=== PATIENT | male | born 1960 | race Hispanic/Latino ===

== ENCOUNTER 2017-03-25 12:14 | Inpatient (IN) | payer OTHER ==
[2017-03-25 12:24] VITALS: BMI 31.9
--- NOTE | 2017-03-25 12:51 | ED PDOC ---
Arrival/HPI - General Chief Complaint: Altered Mental Status Time Seen by Provider: 03/25/17 12:29 Historian: Patient, Other (Friend) EM Caveat: Altered Mental Status - History of Present Illness Narrative History of Present Illness (Text): 03/25/17 12:30 A 56 year old male, whose past medical history includes diabetes, hyperglycemia hypertension, MS s/p triple vessel CABG, stents, acute renal failure, AMS, and CVA, is brought into the emergency department by EMS after friends called for patient's altered mental status. Per the pts friend he came over this morning and the pt was not acting normally. the pt reports only chest pain. HPI and ROS limited to AMS. Time/Duration: 24 hours Symptom Onset: Sudden Symptom Course: Unchanged Activities at Onset: Rest, Light Context: Home Past Medical History - Provider Review Nursing Documentation Reviewed: Yes - Infectious Disease Hx of Infectious Diseases: None - Tetanus Immunization Tetanus Immunization: Unknown - Cardiac Hx Cardiac Disorders: Yes (CABG x 3) Hx Hypertension: Yes - Pulmonary Hx Respiratory Disorders: Yes Other/Comment: PULMONARY EDEMA - Neurological Hx Neurological Disorder: No - HEENT Hx HEENT Disorder: Yes (CONTACT LENSES) - Renal Hx Renal Disorder: No - Endocrine/Metabolic Hx Diabetes Mellitus Type 1: Yes - Hematological/Oncological Hx Blood Disorders: No - Integumentary Hx Dermatological Disorder: Yes Other/Comment: millicent hernández ext rash, pt stated "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" - Musculoskeletal/Rheumatological Hx Musculoskeletal Disorders: No Hx Falls: No Other/Comment: generalized weakness - Gastrointestinal Hx Gastrointestinal Disorders: No - Genitourinary/Gynecological Hx Urinary Tract Infection: Yes Other/Comment: pt had martinez inserted for cabg in december, martinez was removed post op at pt has been having problems urinating ever since. Multiple attempts have been made to remove martinez cat, but when it is removed pt can't void - Psychiatric Hx Psychophysiologic Disorder: No Hx Depression: No Hx Emotional Abuse: No Hx Physical Abuse: No Hx Substance Use: Yes (MARIJUANA) - Surgical History Hx Amputation: Yes (R toes) Hx Cardiac Catheterization: Yes (09/09) Hx Coronary Stent: Yes Hx Open Heart Surgery: Yes (12-26-12) - Anesthesia Hx Anesthesia: Yes Hx Anesthesia Reactions: No - Suicidal Assessment Feels Threatened In Home Enviroment: No Family/Social History - Physician Review Nursing Documentation Reviewed: Yes Family/Social History: Unknown Family HX Smoking Status: Never Smoked Hx Alcohol Use: Yes (QUIT 4 YEARS AGO) Hx Substance Use: Yes (MARIJUANA) Hx Substance Use Treatment: No Allergies/Home Meds Allergies/Adverse Reactions: Allergies morphine Allergy (Verified 03/25/17 12:24) ANAPHYLAXIS sea food Allergy (Severe, Uncoded 03/25/17 12:24) ANAPHYLAXIS Home Medications: Home Meds Medication Instructions Recorded Confirmed Insulin Glargine, Recombina 30 unit SQ HS 04/05/16 03/25/17 [Lantus] Insulin Lispro [Humalog] 10 units SQ AC 04/05/16 03/25/17 Carvedilol [Coreg] 12.5 mg PO BID 03/25/17 03/25/17 Lisinopril [Zestril] 20 mg PO DAILY 03/25/17 03/25/17 Omeprazole 20 mg PO DAILY 03/25/17 03/25/17 Review of Systems - Review of Systems Systems not reviewed;Unavailable: Altered Mental Status Physical Exam - Physical Exam Physical Exam Limitations: Altered Mental Status Vital Signs Reviewed: Yes Vital Signs Temp Pulse Resp BP Pulse Ox 03/25/17 17:15 77 198/101 H 03/25/17 16:58 98 F 70 19 198/101 H 99 03/25/17 14:54 77 227/104 H 03/25/17 14:53 77 227/104 H 03/25/17 14:16 70 227/104 H 03/25/17 14:10 81 225/106 H 03/25/17 14:01 99.5 F 95 H 18 215/130 H 100 03/25/17 12:17 98.8 F 87 20 198/124 H 99 Pain Distress: None Mental Status: Positive for: other (Alert). No: Agitated, Lethargic Finger Stick Blood Glucose: 183 - Systems Exam Head: Present: Atraumatic, Normocephalic Pupils: Present: PERRL Extroacular Muscles: Present: EOMI Mouth: Present: Moist Mucous Membranes Neck: Present: Normal Range of Motion Respiratory/Chest: Present: Clear to Auscultation, Good Air Exchange. No: Respiratory Distress, Accessory Muscle Use Cardiovascular: Present: Regular Rate and Rhythm, Normal S1, S2. No: Murmurs Abdomen: Present: Normal Bowel Sounds. No: Tenderness, Distention, Peritoneal Signs Upper Extremity: Present: Normal Inspection. No: Cyanosis, Edema Lower Extremity: Present: Normal Inspection. No: Edema Neurological: Present: Speech Normal, Motor Func Grossly Intact, Normal Sensory Function. No: Other (No focal deficits. oriented to self only. ) Skin: Present: Warm, Dry, Normal Color. No: Rashes Psychiatric: Present: Alert. No: Oriented x 3, Normal Insight, Normal Concentration Medical Decision Making ED Course and Treatment: 03/25/17 12:30 Progress Notes: 03/25/17 12:35 EKG: Ordered, reviewed, and independently interpreted the EKG. Rate : 87 BPM Rhythm : NSR Interpretation : Lateral ST depression, mild ST elevation, Lead III appears similar to prior EKG on 05/31/16. 03/25/17 12:[address] Ceron cellphone. 03/25/17 12:[address] Ceron, no code heart. 03/25/17 14:[address] Merchant. 03/25/17 14:[address] Merchant and he states no code heart at this time. 03/25/17 15:20 EKG: REPEATED Ordered, reviewed, and independently interpreted the EKG. Rate : 66 BPM Rhythm : NSR Interpretation : ST elevation, Lead III looks slightly worse. Comparison : EKG appears similar to prior EKG. 03/25/17 15:[address] Merchant and recommends adding Heparin and Brilinta. No code heart. No STEMI at this time. 03/25/17 15:50 Case discussed with hospitalist to admit patient. 03/25/17 15:55 Spoke with ICU and he will evaluate patient to admit. the pt was given multiple doses of PO and IV antihypertensives, then started on IV nitro gtt per ICU. - Critical Care Critical Care Minutes: 90 minutes - Lab Interpretations Lab Results: 03/25/17 12:55 03/25/17 12:55 Lab Results 03/25/17 16:00: pCO2 23 L, pO2 98.0, HCO3 20.1 L, ABG pH 7.55 H, ABG Total CO2 20.8 L, ABG O2 Saturation 98.1 H, ABG O2 Content 15.2, ABG Base Excess -1.0, ABG Hemoglobin 11.1 L, ABG Carboxyhemoglobin 0.6, POC ABG HHb (Measured) 1.9, ABG Methemoglobin 0.9, ABG O2 Capacity 15.5 L, Hgb O2 Saturation 96.5, FiO2 21.0 03/25/17 13:35: Ammonia < 9 L 03/25/17 12:55: PT 11.4, INR 1.06, APTT 28.1 03/25/17 12:55: Alcohol, Quantitative < 10 03/25/17 12:55: Sodium 140, Chloride 101, Potassium 3.8, Carbon Dioxide 18 L, Anion Gap 25 H, BUN 62 H, Creatinine 7.7 H, Est GFR ( Amer) 9, Est GFR ( Non-Af Amer) 7, Random Glucose 334 H* D, Calcium 9.7, Total Bilirubin 1.5 H, AST 33, ALT 22, Alkaline Phosphatase 122, Total Creatine Kinase 1315 H, CK-MB ( CK-2) 3.9 H, CK-MB (CK-2) % Cancelled, Troponin I 0.13 H* D, Total Protein 8.2, Albumin 4.7, Globulin 3.5, Albumin/Globulin Ratio 1.3, Lipase 89 03/25/17 12:55: WBC 10.2 D, RBC 4.84, Hgb 12.8 L, Hct 37.7 L, MCV 77.9 L, MCH 26.4, MCHC 34.0, RDW 14.4, Plt Count 271, MPV 12.1 H, Gran % 81.6 H, Lymph % ( Auto) 12.0 L, Lipscomb % (Auto) 6.2 H, Eos % (Auto) 0.0 L, Baso % (Auto) 0.2, Gran # 8.34 H, Lymph # 1.2, Lipscomb # 0.6, Eos # 0.0, Baso # 0.02 03/25/17 12:35: pO2 102 H, VBG pH 7.61 H, VBG pCO2 19.0 L*, VBG HCO3 19.1 L, VBG Total CO2 19.7 L, VBG O2 Sat (Calc) 98.4 H, VBG Base Excess 0.0, VBG Potassium 3.8, Sodium 138.0, Chloride 104.0, Glucose 350 H, Lactate 3.6 H, FiO2 21.0, Venous Blood Potassium 3.8 03/25/17 12:28: POC Glucose (mg/dL) 294 H - RAD Interpretation Radiology Orders: 03/25/17 12:46 HEAD W/O CONTRAST [CT] Stat CHEST ONE VIEW [RAD] Stat - Medication Orders Current Medication Orders: Acetaminophen (Tylenol 325mg Tab) 650 mg PO Q6H PRN PRN Reason: Pain, moderate (4-7) Atorvastatin Calcium (Lipitor) 40 mg PO DAILY MARYANN Heparin Sodium/Dextrose (Heparin 25,000 Units/250ml In D5w) 25,000 units in 250 mls @ 11.104 mls/hr IV .[id number] MARYANN; 12 UNITS/KG/HR PRN Reason: Protocol Last Admin: 03/25/17 17:01 Dose: 12 units/kg/hr, 11.104 mls/hr Nitroglycerin/Dextrose (Nitroglycerin 50 Mg/250 Ml D5w) 50 mg in 250 mls @ 7.5 mls/hr IV .Q24H PRN; Protocol; 25 MCG/MIN PRN Reason: Titrate per protocol Last Admin: 03/25/17 17:15 Dose: 25 mcg/min, 7.5 mls/hr Sodium Chloride (Sodium Chloride 0.9%) 1,000 mls @ 100 mls/hr IV .Q10H MARYANN Last Admin: 03/25/17 17:27 Dose: 100 mls/hr Dexmedetomidine HCl (Precedex 4 Mcg/Ml (100 Ml)) 400 mcg in 100 mls @ 4.627 mls /hr IV .[id number] PRN; Protocol; 0.2 MCG/KG/HR PRN Reason: Agitation Last Admin: 03/25/17 20:06 Dose: 0.2 mcg/kg/hr, 4.627 mls/hr Insulin Human Lispro (Humalog Med) 0 units SC ACHS MARYANN PRN Reason: Protocol Metoprolol Tartrate (Lopressor) 5 mg IVP Q6H MARYANN Last Admin: 03/25/17 17:04 Dose: Pantoprazole Sodium (Protonix Inj) 40 mg IVP DAILY MARYANN Discontinued Medications Aspirin (Aspirin Chewable) 324 mg PO STAT STA Stop: 03/25/17 14:24 Last Admin: 03/25/17 14:54 Dose: 324 mg Heparin Sodium (Porcine) (Heparin) 6,500 units 70 units/kg (6500 units) IV ONCE ONE PRN Reason: Protocol Stop: 03/25/17 15:41 Last Admin: 03/25/17 16:45 Dose: 6,500 units Sodium Chloride (Sodium Chloride 0.9%) 1,000 mls @ 999 mls/hr IV .Q1H1M STA Stop: 03/25/17 14:26 Last Admin: 03/25/17 13:56 Dose: 999 mls/hr Sodium Chloride (Sodium Chloride 0.9%) 1,000 mls @ 999 mls/hr IV .Q1H1M STA Stop: 03/25/17 15:03 Last Admin: 03/25/17 14:54 Dose: 999 mls/hr Lisinopril (Zestril) 20 mg PO STAT STA Stop: 03/25/17 14:44 Last Admin: 03/25/17 14:53 Dose: 20 mg Metoprolol Tartrate (Lopressor) 10 mg IVP STAT STA Stop: 03/25/17 13:52 Last Admin: 03/25/17 14:10 Dose: 10 mg Metoprolol Tartrate (Lopressor) 10 mg IVP STAT STA Stop: 03/25/17 14:44 Last Admin: 03/25/17 14:54 Dose: 10 mg Midazolam HCl (Versed Inj) 1 mg IVP ONCE ONE Stop: 03/25/17 15:00 Last Admin: 03/25/17 15:11 Dose: 1 mg Nitroglycerin (Nitrostat Sl Tab) 0.4 mg SL STAT STA Stop: 03/25/17 16:27 Last Admin: 03/25/17 17:02 Dose: 0.4 mg Ondansetron HCl (Zofran Inj) 4 mg IVP ONCE ONE Stop: 03/25/17 13:27 Last Admin: 03/25/17 14:05 Dose: 4 mg Ticagrelor (Brilinta) 180 mg PO STAT STA Stop: 03/25/17 15:42 Last Admin: 03/25/17 15:58 Dose: 180 mg Ticagrelor (Brilinta) Confirm Administered Dose 180 mg .ROUTE .STK-MED ONE Stop: 03/25/17 15:59 Last Admin: 03/25/17 16:47 Dose: - Scribe Statement The provider has reviewed the documentation as recorded by the Tamara Mann Provider Scribe Attestation: All medical record entries made by the Tamara were at my direction and personally dictated by me. I have reviewed the chart and agree that the record accurately reflects my personal performance of the history, physical exam, medical decision making, and the department course for this patient. I have also personally directed, reviewed, and agree with the discharge instructions and disposition. Disposition/Present on Arrival - Present on Arrival Any Indicators Present on Arrival: No History of DVT/PE: No History of Uncontrolled Diabetes: No Urinary Catheter: No History of Decub. Ulcer: No History Surgical Site Infection Following: None - Disposition Have Diagnosis and Disposition been Completed?: Yes Diagnosis: Hypertensive emergency Disposition: HOSPITALIZED Disposition Time: 16:08 Condition: SERIOUS
[2017-03-25 12:56] LABS: VENOUS BLOOD GAS PO2 102 mm/Hg (30-55); VENOUS BLOOD PH 7.61 (7.32-7.43)
[2017-03-25 13:10] LABS: BASO # 0.02 K/mm3 (0.0-2.0); BASO % 0.2 % (0.0-3.0); GRAN # 8.34 (1.4-6.5); GRAN % 81.6 % (50.0-68.0); HEMOGLOBIN 12.8 gm/dL (14.0-18.0); LYMPH # 1.2 (1.2-3.4); MEAN CELL VOLUME 77.9 fL (80.0-105.0); MEAN CORPUSCULAR HEMOGLOBIN 26.4 pg (25.0-35.0); MEAN PLATELET VOLUME 12.1 fl (7.0-11.0); MONO # 0.6 (0.1-0.6); MONO % 6.2 % (1.0-6.0); PLATELET COUNT 271 10^3/uL (120.0-450.0); RBC 4.84 10^6/uL (3.5-6.1); RED CELL DISTRIBUTION WIDTH 14.4 % (11.5-14.5); WHITE BLOOD COUNT 10.2 10^3/ul (4.5-11.0)
[2017-03-25 13:24] LABS: ALB/GLOB RATIO 1.3 (1.1-1.8); ALBUMIN 4.7 g/dL (3.0-4.8); CALCIUM 9.7 mg/dL (8.4-10.5)
[2017-03-25 13:39] LABS: CK-MB 3.9 ng/mL (0.0-3.6)
[2017-03-25 13:40] LABS: TROPONIN I 0.13 ng/mL
[2017-03-25] MEDS ORDERED: Metoprolol 1 mg/ml Inj IVP STA ×3 (13:51→16:16)
[2017-03-25] MEDS: Sodium Chloride 0.9% 1,000 ML IV STA (13:56)
[2017-03-25] MEDS ORDERED: Sodium Chloride 0.9% 1,000 ML IV STA (14:03)
[2017-03-25] MEDS ORDERED: Midazolam 5 MG/5 ML VIAL IVP ONE (14:59)
--- NOTE | 2017-03-25 15:15 | CARD ---
APPROVED REPORT EKG Measurement Heart [id number] <Conclusion> Normal sinus rhythm Inferior infarct, age undetermined ST & T wave abnormality, consider lateral ischemia Abnormal ECG
--- NOTE | 2017-03-25 15:17 | CARD ---
APPROVED REPORT EKG Measurement Heart [id number] <Conclusion> Normal sinus rhythm Inferior infarct, age underterminate lateral ischemia Abnormal ECG
[2017-03-25] MEDS ORDERED: Heparin 25,000units in D5W 25,000 UNITS/250 ML BAG IV SCH (15:45)
--- NOTE | 2017-03-25 15:56 | CT ---
PROCEDURE: CT HEAD WITHOUT CONTRAST. HISTORY: ams COMPARISON: Head CT 05/31/2016 TECHNIQUE: Axial computed tomography images were obtained through the head/brain without intravenous contrast. Radiation dose: Total exam DLP = 791 mGy-cm. This CT exam was performed using one or more of the following dose reduction techniques: Automated exposure control, adjustment of the mA and/or kV according to patient size, and/or use of iterative reconstruction technique. FINDINGS: HEMORRHAGE: No intracranial hemorrhage. BRAIN: No mass effect or cortical edema. Mild diffuse atrophy and chronic microvascular ischemic changes appear stable. Bilateral chronic basal ganglia lacune or infarcts are again identified. VENTRICLES: Unremarkable. No hydrocephalus. CALVARIUM: Unremarkable. PARANASAL SINUSES: Unremarkable as visualized. No significant inflammatory changes. MASTOID AIR CELLS: Mild right mastoiditis is appreciated. OTHER FINDINGS: None. IMPRESSION: No definite acute intracranial findings. Bilateral chronic lacune infarctions in the basal ganglia once again. Age related neuro degenerate changes are reiterated. Follow-up CT or MRI can be performed if clinically warranted. Incidental right mastoiditis.
[2017-03-25 16:13] LABS: PARTIAL THROMBOPLASTIN TIME 28.1 Seconds (23.7-30.8)
[2017-03-25 16:14] LABS: ARTERIAL BLOOD GAS HCO3 20.1 mmol/L (21-28); ARTERIAL BLOOD GAS HEMOGLOBIN 11.1 g/dL (11.7-17.4); ARTERIAL BLOOD GAS O2 CAPACITY 15.5 mL/dl (16-24); ARTERIAL BLOOD GAS O2 CONTENT 15.2 ML/dl (15-23); ARTERIAL BLOOD GAS O2 SAT 98.1 % (95-98); ARTERIAL BLOOD GAS PCO2 23 mm/Hg (35-45); ARTERIAL BLOOD GAS PH 7.55 (7.35-7.45); ARTERIAL BLOOD GAS TCO2 20.8 mmol.L (22-28)
[2017-03-25 16:58] LABS: PH,URINE 8.5 (4.7-8.0); URINE BILIRUBIN NEGATIVE (NEGATIVE); URINE BLOOD MODERATE (NEGATIVE); URINE GLUCOSE (UA) >=1000 mg/dL (NEGATIVE); URINE LEUKOCYTE ESTERASE NEGATIVE Leu/uL (NEGATIVE); URINE NITRATE NEGATIVE (NEGATIVE); URINE PROTEIN >=300 mg/dL (<30 mg/dL); URINE UROBILINOGEN 0.2 E.U./dL (<1 E.U./dL)
[2017-03-25 17:01] LABS: URINE APPEARANCE SL CLOUDY (CLEAR); URINE COLOR YELLOW (YELLOW)
[2017-03-25] MEDS: Metoprolol 1 mg/ml Inj IVP SCH ×2 (17:04→22:23)
[2017-03-25 17:09] LABS: URINE BACTERIA FEW (NEG)
[2017-03-25 17:15] LABS: BARBITURATES, UR NEGATIVE (NEGATIVE); BENZODIAZEPINES, UR NEGATIVE (NEGATIVE); OPIATES, UR NEGATIVE (NEGATIVE); PHENCYCLIDINE, UR NEGATIVE (NEGATIVE)
[2017-03-25] MEDS: Nitroglycerin 50mg in D5W 50 MG/250 ML BOTTLE IV PRN ×2 (17:15→22:21)
[2017-03-25] MEDS: Sodium Chloride 0.9% 1,000 ML IV SCH (17:27)
--- NOTE | 2017-03-25 17:30 | RAD ---
PROCEDURE: CHEST RADIOGRAPH, 1 VIEW HISTORY: ams COMPARISON: Prior portable chest radiograph 05/31/2016. FINDINGS: LUNGS: No acute infiltrate or pulmonary sprain is identified. Sternotomy wires are again seen. PLEURA: No pneumothorax or pleural fluid seen. CARDIOVASCULAR: Cardiomegaly appears stable. OSSEOUS STRUCTURES: No significant abnormalities. VISUALIZED UPPER ABDOMEN: Normal. OTHER FINDINGS: None. IMPRESSION: No acute cardiopulmonary disease. Stable cardiomegaly noted.
--- NOTE | 2017-03-25 17:53 | CP.PCM.HP ---
<Arnav Nation - Last Filed: 03/25/17 18:40> History of Present Illness - History of Present Illness History of Present Illness: 56 y/o M with PMH of CAD, HTN, UT x 3, DM, peripheral neuropathy, CVA, history of falls and AMS presents to the ED for altered mental status. Patient was brought in by his friend who states he went to visit him and he was acting funny. In the ED, patient was able to answer a few questions. Pt states he has not been feeling for 3 days at this time. Pt has been admitted to hospital many times in the past for AMS.ROS not able to be obtained at this time due to AMS. Medical history retrieved from prior medical charts. PMH: CAD, HTN, UT x 3, DM, peripheral neuropathy, history of falls, history of CVA, AMS PSH: Stents x 3, CABG, left hip surgery, Left knee surgery, Right foot partial amputation All: seafood SH: Denies recent tobacco, etoh, illicit drug use. Medication: Reviewed from prior chart Present on Admission - Present on Admission Any Indicators Present on Admission: Yes History of Uncontrolled Diabetes: Yes Review of Systems - Review of Systems Systems not reviewed;Unavailable: Altered Mental Status Past Patient History - Infectious Disease Hx of Infectious Diseases: None - Tetanus Immunizations Tetanus Immunization: Unknown - Past Medical History & Family History Past Medical History?: Yes - Past Social History Smoking Status: Never Smoked - CARDIAC Hx Cardiac Disorders: Yes (CABG x 3) Hx Hypertension: Yes - PULMONARY Hx Respiratory Disorders: Yes Other/Comment: PULMONARY EDEMA - NEUROLOGICAL Hx Neurological Disorder: No - HEENT Hx HEENT Problems: Yes (CONTACT LENSES) - RENAL Hx Chronic Kidney Disease: No - ENDOCRINE/METABOLIC Hx Diabetes Mellitus Type 1: Yes - HEMATOLOGICAL/ONCOLOGICAL Hx Blood Disorders: No - INTEGUMENTARY Hx Dermatological Problems: Yes Other/Comment: millicent hernández ext rash, pt stated "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" - MUSCULOSKELETAL/RHEUMATOLOGICAL Hx Musculoskeletal Disorders: No Hx Falls: No Other/Comment: generalized weakness - GASTROINTESTINAL Hx Gastrointestinal Disorders: No - GENITOURINARY/GYNECOLOGICAL Hx Urinary Tract Infection: Yes Other/Comment: pt had martinez inserted for cabg in december, martinez was removed post op at pt has been having problems urinating ever since. Multiple attempts have been made to remove martinez cath, but when it is removed pt can't void - PSYCHIATRIC Hx Psychophysiologic Disorder: No Hx Depression: No Hx Emotional Abuse: No Hx Physical Abuse: No Hx Substance Use: Yes (MARIJUANA) - SURGICAL HISTORY Hx Amputation: Yes (R toes) Hx Cardiac Catheterization: Yes (09/09) Hx Coronary Stent: Yes Hx Open Heart Surgery: Yes (12-26-12) - ANESTHESIA Hx Anesthesia: Yes Hx Anesthesia Reactions: No Meds Allergies/Adverse Reactions: Allergies Allergy/AdvReac Type Severity Reaction Status Date / Time morphine Allergy ANAPHYLAXIS Verified 03/25/17 12:24 sea food Allergy Severe ANAPHYLAXIS Uncoded 03/25/17 12:24 Physical Exam - Constitutional Appears: Toxic, No Acute Distress - Head Exam Head Exam: ATRAUMATIC, NORMAL INSPECTION, NORMOCEPHALIC - Eye Exam Eye Exam: Normal appearance - ENT Exam ENT Exam: Mucous Membranes Moist - Neck Exam Neck exam: Positive for: Normal Inspection. Negative for: Lymphadenopathy - Respiratory Exam Respiratory Exam: Clear to Auscultation Bilateral, NORMAL BREATHING PATTERN. absent: Rhonchi - Cardiovascular Exam Cardiovascular Exam: RRR, +S1, +S2 - GI/Abdominal Exam GI & Abdominal Exam: Normal Bowel Sounds, Soft, Tenderness (Diffuse) - Extremities Exam Extremities exam: Negative for: calf tenderness, normal inspection, pedal edema Additional comments: Lower partial right foot amputation - Neurological Exam Neurological exam: Alert - Skin Skin Exam: Intact, Normal Color, Warm Results - Vital Signs Recent Vital Signs: Last Vital Signs Temp 98 F 03/25/17 16:58 Pulse 77 03/25/17 17:15 Resp 19 03/25/17 16:58 BP 198/101 H 03/25/17 17:15 Pulse Ox 99 03/25/17 16:58 - Labs Result Diagrams: 03/25/17 12:55 03/25/17 12:55 Labs: Laboratory Results - last 24 hr 03/25/17 03/25/17 16:45 16:45 Urine Color Yellow Urine Appearance Sl cloudy Urine pH 8.5 Ur Specific [place] 1.020 Urine Protein >=300 H Urine Glucose (UA) >=1000 Urine Ketones Negative Urine Blood Moderate H Urine Nitrate Negative Urine Bilirubin Negative Urine Urobilinogen 0.2 Ur Leukocyte Esterase Negative Urine RBC 5 - 10 Urine WBC 2 - 5 Ur Epithelial Cells 1 - 3 Urine Bacteria Few Urine Opiates Screen Negative Urine Methadone Screen Negative Ur Barbiturates Screen Negative Ur Phencyclidine Scrn Negative Ur Amphetamines Screen Negative U Benzodiazepines Scrn Negative U Oth Cocaine Metabols Negative U Cannabinoids Screen Positive H Assessment & Plan - Assessment and Plan (Free Text) Plan: 56 y/o M with PMH of CAD, HTN, UT x 3, DM, peripheral neuropathy, CVA, history of falls and AMS presents with NSTEMI and acute renal failure in the setting of hypertensive emergency and encephalopathy. Head CT showed no acute findings, but b/l chronic lacunar infactions in the basal ganglia. Pt will be placed on a nitro and heparin drip. Abd/pelvis CT ordered for abdominal pain. Pt will be admitted to the ICU for closer monitoring. 1. Hypertensive Emergency/Encephalopathy Nitro drip Metoprolol 5 mg IVP q6h Will hold home BP meds Atorvastatin 40 mg daily Neuro checks q4h 2. NSTEMI Heparin drip Brillinta given in ED Echocardiogram ordered Trend troponins Previous Echo from 03/2016 showed asymmetric septal hypertrophy with EF of 50% EKG - NSR with minor ST changes. No STEMI as per [employer] Cardio consult, Dr. Matthews 3. Acute renal failure IVF Nephrology consult, Dr. Kwan 4. DM ISS HgA1c 5. PPX Protonix Heparin drip Seen, reviewed, and discussed with attending [facility] PGY-2 <Kerri Whitley - Last Filed: 03/25/17 19:00> Results - Vital Signs Recent Vital Signs: Last Vital Signs Temp 98.8 F 03/25/17 18:20 Pulse 79 03/25/17 18:33 Resp 78 H 03/25/17 18:30 BP 170/98 H 03/25/17 18:38 Pulse Ox 97 03/25/17 18:33 - Labs Result Diagrams: 03/25/17 12:55 03/25/17 12:55 Labs: Laboratory Results - last 24 hr 03/25/17 03/25/17 16:45 16:45 Urine Color Yellow Urine Appearance Sl cloudy Urine pH 8.5 Ur Specific [place] 1.020 Urine Protein >=300 H Urine Glucose (UA) >=1000 Urine Ketones Negative Urine Blood Moderate H Urine Nitrate Negative Urine Bilirubin Negative Urine Urobilinogen 0.2 Ur Leukocyte Esterase Negative Urine RBC 5 - 10 Urine WBC 2 - 5 Ur Epithelial Cells 1 - 3 Urine Bacteria Few Urine Opiates Screen Negative Urine Methadone Screen Negative Ur Barbiturates Screen Negative Ur Phencyclidine Scrn Negative Ur Amphetamines Screen Negative U Benzodiazepines Scrn Negative U Oth Cocaine Metabols Negative U Cannabinoids Screen Positive H Attending/Attestation - Attestation I have personally seen and examined this patient.: Yes I have fully participated in the care of the patient.: Yes I have reviewed all pertinent clinical information: Yes Notes (Text): 03/25/17 18:57 Pt has Amputation of the distal part of the R foot and old surgical scars on the L foot
[2017-03-25 19:20] LABS: INR 1.06 (0.93-1.08); PROTHROMBIN TIME 11.4 Seconds (9.9-11.8)
--- NOTE | 2017-03-25 19:23 | CT ---
EXAM: CT Abdomen and Pelvis Without Intravenous Contrast CLINICAL HISTORY: 56 years old, male; Pain; Abdominal pain; Acute TECHNIQUE: Axial computed tomography images of the abdomen and pelvis without intravenous contrast. This CT exam was performed using one or more of the following dose reduction techniques: automated exposure control, adjustment of the mA and/or kV according to patient size, and/or use of iterative reconstruction technique. Coronal and sagittal reformatted images were created and reviewed. EXAM DATE/TIME: 03/25/2017 4:56 PM COMPARISON: CT - ABD PELVIS W/O PO OR IV CONT 04/05/2016 8:00:04 AM FINDINGS: Artifacts: Motion artifact degrades image quality.Streak artifact degrades image quality. Lower thorax: The heart is enlarged. There are coronary artery calcifications. There is a hiatal hernia. Lung bases are hyperinflated. There is minimal scarring at the lung bases. ABDOMEN: Liver: unremarkable Gallbladder and bile ducts: Gallbladder is surgically absent. Common bile duct is prominent. Pancreas: Pancreas is atrophic. Spleen: unremarkable Adrenals: unremarkable Kidneys and ureters: unremarkable Stomach and bowel: Stomach is partially distended. Rotation is normal. Streak and motion limited evaluation of the bowel. There are mildly distended small bowel loops in the left upper quadrant. There is mild fold and wall prominence. Distention decreases distally. There is no obstruction. Appendix and terminal ileum are unremarkable. Colon is incompletely distended which limits evaluation. There is diverticulosis. Appendix: See stomach and bowel PELVIS: Bladder: Bladder is almost completely empty. There is a Macias catheter. There is minimal air in the bladder. There is mild bladder wall thickening. Reproductive: Seminal vesicles and prostate are unremarkable. ABDOMEN and PELVIS: Intraperitoneal space: There is no significant fluid.There is no free air. Bones/joints: There are postsurgical changes of median sternotomy. There are degenerative changes in the osseus structures. Small sclerotic focus in L3 is unchanged. Soft tissues: unremarkable Vasculature: There are calcifications in the aorta and iliacs. There is calcification in peripheral arteries. Lymph nodes: There is no pathologic adenopathy. IMPRESSION: Interval cholecystectomy with prominent common duct; no acute solid visceral abnormality; focal ileus and possible enteritis, no obstruction; no CT findings of appendicitis or diverticulitis Additional findings as described above.
[2017-03-25] MEDS ORDERED: Dexmedetomidine HCl 4mcg/ml 400 MCG/100 ML BOTTLE IV PRN (19:28)
[2017-03-25 21:39] LABS: VENOUS BLOOD GAS PO2 34 mm/Hg (30-55)
[2017-03-25] MEDS ORDERED: Pneumococcal 23-Valent Vaccine IM ONE (21:55)
[2017-03-25] MEDS: Insulin Lispro (humaLOG) MEDIUM Coverage SC SCH (22:23)
[2017-03-26] MEDS: Sodium Chloride 0.9% 1,000 ML IV SCH (01:15)
[2017-03-26] MEDS: Metoprolol 1 mg/ml Inj IVP SCH ×3 (04:57→17:04)
--- NOTE | 2017-03-26 05:08 | CON ---
DATE: 03/25/2017 HISTORY OF PRESENT ILLNESS: The patient is a 56-year-old gentleman with history of coronary artery disease, diabetes, chronic kidney disease, status post few toes amputation on the right foot, who presented with nausea and vomiting for several days.He also has been found disoriented, confused for several days by hisfriend, who brought him in [facility] for eval. He cannot pinpoint any specific complaint; however, according to friend, the patient is nauseated, vomited several times, and he was complaining of some low abdominal pain. The patient denies shortness of breath or chest pain and loss of consciousness. No fever or chills or sweats. No constipation or diarrhea. 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 ALLERGIES: THE PATIENT IS ALLERGIC TO MORPHINE AND SEAFOOD. SOCIAL HISTORY: The patient is smoking pot, but not tobacco. He is a recovering alcoholic and according to close friends did not drink alcohol over the last 5 to 6 years. No other illicit drug abuse other than marijuana and no tobacco smoking. FAMILY HISTORY: Noncontributory. REVIEW OF SYSTEMS: Review of 12-point review of system other than mentioned in history of present illness is negative. PHYSICAL EXAMINATION VITAL SIGNS: Blood pressure 227/104, heart rate 77, temperature 99.5. The patient is oxygenating 100% on room air. HEENT: Head and neck atraumatic. LUNGS: Clear to auscultation bilaterally. HEART: Regular rate and rhythm. S1, S2 normal. ABDOMEN: Soft, nontender, nondistended. MUSCULOSKELETAL: Trace bilateral pedal and ankle edema, several toes amputated on a right side. NEUROLOGIC: The patient moves all extremities spontaneously. SKIN: Moist. PSYCHIATRIC: The patient is confused and disoriented. LABORATORY DATA: WBC is 10.2, hemoglobin 12.8, platelet count 271. PTT 28.1. Chemistry; sodium 145, potassium 3.8, chloride 101, carbon dioxide 18, BUN 62, creatinine 7.7, glucose 334, calcium 9.7, AST 33, ALT 22, CPK 1315, ammonia level less than 9, troponin 0.13. Albumin 4.7. EKG showed ST depression in I and aVL leads as well as V5 and V6. Those changes are new. Head CT did not show any acute intracranial pathology. Chest x-ray, no acute pulmonary disease. HOME MEDICATIONS: Include, insulin lispro and Lantus, Plavix, Coreg, Zestril, aspirin, Lipitor, omeprazole. ASSESSMENT AND PLAN: This is a 56-year-old gentleman, who presented with hypertensive emergency, most likely secondary to non-adherence to his meds, complicated by acute kidney injury on top of chronic kidney disease and acute myocardial ischemia. At the present time, I would proceed with nitroglycerin drip, metoprolol 5 mg IV q.6. We will drop down MAP by 20% within first hour and then 10-15% of MAP within the next 23 hours. We will still continue with IV fluids, as the patient has rhabdomyolysis and to correct for auto diuresis in the setting of uncontrolled hypertension. We will call nephrology consult and cardiology consult. We will continue with dual antiplatelet therapy settings, beta blockers and therapeutic anticoagulation. Cardiology consult was called. We will proceed with CAT scan of the abdomen and pelvis to rule out intraabdominal sources of patient's clinical deterioration. Unfortunately, I cannot use IV dye and we will see if we would be able to rule out abdominal aneurysm or its complications with "dry" CT. We will continue with DVT and GI prophylaxis. Macias catheter will be placed and monitored and urine output will be monitored with low of more than 0.5 mL/kg per hour. ccm time 40 min Fernando Weiss MD MTDGhazal
[2017-03-26 06:20] LABS: BASO # 0.03 K/mm3 (0.0-2.0); BASO % 0.4 % (0.0-3.0); EOS # 0.1 (0.0-0.7); EOS % 1.2 % (1.5-5.0); GRAN # 4.68 (1.4-6.5); GRAN % 69.4 % (50.0-68.0); HEMOGLOBIN 9.4 gm/dL (14.0-18.0); LYMPH # 1.4 (1.2-3.4); LYMPH % 21.4 % (22.0-35.0); MEAN CELL VOLUME 80.9 fL (80.0-105.0); MEAN CORPUSCULAR HEMOGLOBIN 25.6 pg (25.0-35.0); MEAN CORPUSCULAR HGB CONC 31.6 g/dl (31.0-37.0); MEAN PLATELET VOLUME 12.5 fl (7.0-11.0); MONO # 0.5 (0.1-0.6); MONO % 7.6 % (1.0-6.0); PLATELET COUNT 180 10^3/uL (120.0-450.0); RBC 3.67 10^6/uL (3.5-6.1); RED CELL DISTRIBUTION WIDTH 14.6 % (11.5-14.5); WHITE BLOOD COUNT 6.7 10^3/ul (4.5-11.0)
[2017-03-26 06:28] LABS: CALCIUM 7.8 mg/dL (8.4-10.5)
[2017-03-26 06:55] LABS: TROPONIN I 0.11 ng/mL
[2017-03-26] MEDS: Insulin Lispro (humaLOG) MEDIUM Coverage SC SCH ×4 (08:15→22:30)
--- NOTE | 2017-03-26 09:36 | CP.PCM.PN ---
<Mandy Giordano - Last Filed: 03/26/17 12:29> Subjective - Date & Time of Evaluation Date of Evaluation: 03/26/17 Time of Evaluation: 09:34 - Subjective Subjective: PGY-2 ICU Progress note. Patient seen and examined in the ICU . No acute distress. He states he does feel while but denies any chest pain, abd pain. He reports mild sob and nausea with 1 episode of nonbloody vomiting. Patient was started on precedex drip for agitation overnight. Objective - Vital Signs/Intake and Output Vital Signs (last 24 hours): Temp Pulse Resp BP Pulse Ox 98.8 F 69 10 L 159/80 H 97 03/25/17 21:41 03/26/17 09:14 03/26/17 09:00 03/26/17 09:14 03/26/17 09:00 Intake and Output: 03/26/17 03/26/17 06:59 18:59 Intake Total 1686 9 Output Total 500 Balance 1186 9 - Medications Medications: Current Medications Acetaminophen (Tylenol 325mg Tab) 650 mg PO Q6H PRN PRN Reason: Pain, moderate (4-7) Atorvastatin Calcium (Lipitor) 40 mg PO DAILY [facility] Last Admin: 03/26/17 09:15 Dose: 40 mg Clonidine HCl (Catapres) 0.2 mg PO BID [facility] Last Admin: 03/26/17 09:14 Dose: 0.2 mg Clopidogrel Bisulfate (Plavix) 75 mg PO DAILY [facility] Last Admin: 03/26/17 09:15 Dose: 75 mg Heparin Sodium (Porcine) (Heparin) 5,000 units SC Q12 [facility] PRN Reason: Protocol Last Admin: 03/26/17 09:13 Dose: 5,000 units Nitroglycerin/Dextrose (Nitroglycerin 50 Mg/250 Ml D5w) 50 mg in 250 mls @ 7.5 mls/hr IV .Q24H PRN; Protocol; 25 MCG/MIN PRN Reason: Titrate per protocol Last Titration: 03/26/17 07:45 Dose: 30 mcg/min, 9 mls/hr Insulin Human Lispro (Humalog Med) 0 units SC ACHS [facility] PRN Reason: Protocol Last Admin: 03/26/17 08:15 Dose: 3 units Metoprolol Tartrate (Lopressor) 5 mg IVP Q6H [facility] Last Admin: 03/26/17 04:57 Dose: Not Given Ondansetron HCl (Zofran Inj) 4 mg IVP Q4H PRN PRN Reason: Nausea/Vomiting Last Admin: 03/25/17 23:48 Dose: 4 mg Pantoprazole Sodium (Protonix Inj) 40 mg IVP DAILY [facility] Last Admin: 03/26/17 09:13 Dose: 40 mg - Labs Labs: 03/26/17 05:00 03/26/17 05:00 PT 11.4 Seconds (9.9-11.8) 03/25/17 12:55 INR 1.06 (0.93-1.08) 03/25/17 12:55 APTT 80.5 Seconds (23.7-30.8) H* 03/26/17 05:00 - Constitutional Appears: Well, No Acute Distress - Head Exam Head Exam: ATRAUMATIC, NORMOCEPHALIC - Eye Exam Eye Exam: EOMI, Normal appearance - ENT Exam ENT Exam: Mucous Membranes Moist - Respiratory Exam Respiratory Exam: Clear to Ausculation Bilateral, NORMAL BREATHING PATTERN. absent: Decreased Breath Sounds, Rales, Rhonchi, Wheezes, Respiratory Distress - Cardiovascular Exam Cardiovascular Exam: REGULAR RHYTHM, +S1, +S2. absent: Tachycardia, Murmur - GI/Abdominal Exam GI & Abdominal Exam: Soft, Normal Bowel Sounds. absent: Distended, Firm, Tenderness - Extremities Exam Extremities Exam: Normal Inspection. absent: Pedal Edema Additional comments: right foot amputation of all toes - Neurological Exam Neurological Exam: Alert, Awake, Oriented x3 - Skin Skin Exam: Dry, Intact, Normal Color, Warm Assessment and Plan - Assessment and Plan (Free Text) Assessment: 56 yo male with PMH of DM, CAD, HTN, NC x 3, neuropathy, s/p right foot amputation of all toes, HTN, CKD presents with HTN emergency with KITA on CKD, AMS and elevated trops. Plan: Neuro - stable - alert and oriented - pt was on precedec overnight for agitation, will stop - Head CT showed no acute findings, but b/l chronic lacunar infarctions in the basal ganglia cardiovascular - HTN emergency most likely 2/2 non compliance - BP improved however continues to be elevated - cont nitro drip, lopressor 5 q6 - will increase clonidine to 0.3 TID - elevated trops, down trending - Echocardiogram ordered - Previous Echo from 03/2016 showed asymmetric septal hypertrophy with EF of 50% - EKG - NSR with minor ST changes. - cont dual antiplatelets, asa, plavix - cont BB, lopressor, lipitor - lipid panel ordered - Maintain MAP >65 - cardiology consulted, recs appreciated pulm - saturated well on RA - supplemental O2 to maintain SpO2>90 - cont to monitor GI - heart health diet - cont protonix for GI ppx - CT bad/ pel without contrast showed Interval cholecystectomy with prominent common duct; no acute solid visceral abnormality; focal ileus and possible enteritis, no obstruction;no CT findings of appendicitis or diverticulitis - lipase WNL, 86 renal - KITA on CKD - nephro consulted, rec appreciated - urine output 500 cc overnight - cont NS @ 100 - strict I&O endo - h/o DM - iss - maintain blood sugar between 140- 180 hem/onc - Hgb and platelets decreased most likely due to dilution - will cont to monitor ID - afebrile without leukocytosis - procalcitonin pending GI ppx- protonix DVT ppx- heparin <Fernando Weiss - Last Filed: 03/26/17 16:04> Objective - Vital Signs/Intake and Output Vital Signs (last 24 hours): Temp Pulse Resp BP Pulse Ox 98.8 F 60 16 173/72 H 97 03/25/17 21:41 03/26/17 14:27 03/26/17 11:10 03/26/17 14:27 03/26/17 11:10 Intake and Output: 03/26/17 03/26/17 06:59 18:59 Intake Total 1686 9 Output Total 500 Balance 1186 9 - Medications Medications: Current Medications Acetaminophen (Tylenol 325mg Tab) 650 mg PO Q6H PRN PRN Reason: Pain, moderate (4-7) Atorvastatin Calcium (Lipitor) 40 mg PO DAILY [facility] Last Admin: 03/26/17 09:15 Dose: 40 mg Clonidine HCl (Catapres) 0.3 mg PO TID [facility] Last Admin: 03/26/17 14:27 Dose: 0.3 mg Clopidogrel Bisulfate (Plavix) 75 mg PO DAILY [facility] Last Admin: 03/26/17 09:15 Dose: 75 mg Heparin Sodium (Porcine) (Heparin) 5,000 units SC Q12 [facility] PRN Reason: Protocol Last Admin: 03/26/17 09:13 Dose: 5,000 units Nitroglycerin/Dextrose (Nitroglycerin 50 Mg/250 Ml D5w) 50 mg in 250 mls @ 7.5 mls/hr IV .Q24H PRN; Protocol; 25 MCG/MIN PRN Reason: Titrate per protocol Last Titration: 03/26/17 07:45 Dose: 30 mcg/min, 9 mls/hr Sodium Chloride (Sodium Chloride 0.45%) 1,000 mls @ 100 mls/hr IV .Q10H [facility] Last Admin: 03/26/17 10:40 Dose: 100 mls/hr Insulin Human Lispro (Humalog Med) 0 units SC ACHS [facility] PRN Reason: Protocol Last Admin: 03/26/17 11:30 Dose: Not Given Metoprolol Tartrate (Lopressor) 5 mg IVP Q6H [facility] Last Admin: 03/26/17 11:33 Dose: Not Given Ondansetron HCl (Zofran Inj) 4 mg IVP Q4H PRN PRN Reason: Nausea/Vomiting Last Admin: 03/25/17 23:48 Dose: 4 mg Pantoprazole Sodium (Protonix Inj) 40 mg IVP DAILY [facility] Last Admin: 03/26/17 09:13 Dose: 40 mg - Labs Labs: 03/26/17 05:00 03/26/17 05:00 PT 11.4 Seconds (9.9-11.8) 03/25/17 12:55 INR 1.06 (0.93-1.08) 03/25/17 12:55 APTT 80.5 Seconds (23.7-30.8) H* 03/26/17 05:00 Attending/Attestation - Attestation I have personally seen and examined this patient.: Yes I have fully participated in the care of the patient.: Yes I have reviewed all pertinent clinical information, including history, physical exam and plan: Yes Notes (Text): 03/26/17 16:01 56 yo male with HTN emergency, complicated by KITA and encephalopathy, which now much improved. Still on nitro drip, clonidne 0.3 mg PO TID and metoprolol 5 mg IV q6, if no improvement in am, will add norvasc to wean off nitro drip. hydration, monitor u/o (goal 0.5 cc/kg/hr), creatinine. LDH, Hapto to rule out MAHA. ccm time 40 min
[2017-03-26] MEDS: Sodium Chloride 0.45% 1,000 ML IV SCH (10:40)
[2017-03-26] MEDS: Sodium Chloride 0.9% 1,000 ML IV STA (11:37)
--- NOTE | 2017-03-26 11:46 | CP.PCM.PN ---
<Flores Cardenas - Last Filed: 03/26/17 11:43> Subjective - Date & Time of Evaluation Date of Evaluation: 03/26/17 Time of Evaluation: 11:43 - Subjective Subjective: Medicine Progress Note Patient seen and examined at bedside. Overnight there were no acute events. Today he is confused, A&O x 0. Difficult to obtain previous history. He reports having some diarrhea and blurry vision. He wears contacts and as them in now. He denies CP, SOB, n/v, numbness/tingling, fever or chills. Objective - Vital Signs/Intake and Output Vital Signs (last 24 hours): Temp Pulse Resp BP Pulse Ox 98.8 F 58 L 16 148/77 97 03/25/17 21:41 03/26/17 11:10 03/26/17 11:10 03/26/17 10:46 03/26/17 11:10 Intake and Output: 03/26/17 03/26/17 06:59 18:59 Intake Total 1686 9 Output Total 500 Balance 1186 9 - Medications Medications: Current Medications Acetaminophen (Tylenol 325mg Tab) 650 mg PO Q6H PRN PRN Reason: Pain, moderate (4-7) Atorvastatin Calcium (Lipitor) 40 mg PO DAILY [facility] Last Admin: 03/26/17 09:15 Dose: 40 mg Clonidine HCl (Catapres) 0.3 mg PO TID [facility] Clopidogrel Bisulfate (Plavix) 75 mg PO DAILY [facility] Last Admin: 03/26/17 09:15 Dose: 75 mg Heparin Sodium (Porcine) (Heparin) 5,000 units SC Q12 [facility] PRN Reason: Protocol Last Admin: 03/26/17 09:13 Dose: 5,000 units Nitroglycerin/Dextrose (Nitroglycerin 50 Mg/250 Ml D5w) 50 mg in 250 mls @ 7.5 mls/hr IV .Q24H PRN; Protocol; 25 MCG/MIN PRN Reason: Titrate per protocol Last Titration: 03/26/17 07:45 Dose: 30 mcg/min, 9 mls/hr Sodium Chloride (Sodium Chloride 0.45%) 1,000 mls @ 100 mls/hr IV .Q10H [facility] Insulin Human Lispro (Humalog Med) 0 units SC ACHS [facility] PRN Reason: Protocol Last Admin: 03/26/17 08:15 Dose: 3 units Metoprolol Tartrate (Lopressor) 5 mg IVP Q6H [facility] Last Admin: 03/26/17 04:57 Dose: Not Given Ondansetron HCl (Zofran Inj) 4 mg IVP Q4H PRN PRN Reason: Nausea/Vomiting Last Admin: 03/25/17 23:48 Dose: 4 mg Pantoprazole Sodium (Protonix Inj) 40 mg IVP DAILY [facility] Last Admin: 03/26/17 09:13 Dose: 40 mg - Labs Labs: 03/26/17 05:00 03/26/17 05:00 PT 11.4 Seconds (9.9-11.8) 03/25/17 12:55 INR 1.06 (0.93-1.08) 03/25/17 12:55 APTT 80.5 Seconds (23.7-30.8) H* 03/26/17 05:00 - Constitutional Appears: Confused - Head Exam Head Exam: ATRAUMATIC, NORMAL INSPECTION, NORMOCEPHALIC - Eye Exam Eye Exam: Normal appearance, PERRL Pupil Exam: NORMAL ACCOMODATION, PERRL - ENT Exam ENT Exam: Mucous Membranes Moist - Neck Exam Neck Exam: Full ROM - Respiratory Exam Respiratory Exam: Clear to Ausculation Bilateral. absent: Decreased Breath Sounds, Rhonchi, Wheezes - Cardiovascular Exam Cardiovascular Exam: Bradycardia, REGULAR RHYTHM, +S1, +S2. absent: Gallop, Rubs, Murmur - GI/Abdominal Exam GI & Abdominal Exam: Soft, Normal Bowel Sounds. absent: Rigid, Tenderness, Mass , Rebound - Extremities Exam Extremities Exam: absent: Calf Tenderness, Pedal Edema Additional comments: Half of Distal R forefoot amputated. Multiple surgical scars on L leg. - Neurological Exam Neurological Exam: Altered, CN II-XII Intact. absent: Oriented x3 Neuro motor strength exam: Left Upper Extremity: 5, Right Upper Extremity: 5, Left Lower Extremity: 5, Right Lower Extremity: 5 - Psychiatric Exam Psychiatric exam: Normal Affect, Normal Mood - Skin Skin Exam: Dry, Intact, Normal Color, Warm Assessment and Plan - Assessment and Plan (Free Text) Assessment: This is a 56Y M with PMH CAD, HTN, CABG, IDDM, MO x 3, CVA, AMS, peripheral neuropathy, falls admitted for hypertensive emergency with acute rental failure with AMS secondary to uremia, rhabdomyolysis and diarrhea. Patient also noted to have elevated troponin secondary to renal failure. Of note, patient has had a similar episode in March 2016. Plan: 1. Hypertensive Emergency - Continue Nitro Drip, Lopressor IVP 5qh - Clonidine 0.3 TID added per ICU - Cardio consulted- recs appreciated 2. Elevated troponin - Secondary to acute renal failure - Troponin neg x 3, EKG showed NSR - Echo pending (Previous echo showed EF 50% in Mar 2016) - Continue Plavix (Home med) for CAD - Cardio consulted-recs appreciated 3. Acute renal failure - Cr 7.1 (was 7.7 yesterday) - Nephro Consulted - Continue 1/2NS@100 - Renal U/S in Mar 2016 was unremarkable 4. AMS - Secondary to Uremia from KITA - Pt also known history of CVA in past - Neuro consulted - Head CT showed chronic lacunar infarcts - Neuro checks - Continue re-orientation 4. Rhabdomyolysis - CK trending down - Continue 1/2NS @100 - Monitor CK daily 5. Diarrhea - afebrile, no leukocytosis - CT abd/pelvis showed possible enteritis - Pt has had C.diff in past - Will send C. diff and stool studies - Zofran prn nausea - Procal is low 6. DM - HgbA1c pending - ISS - BGM- maintain euglycemia GI ppx: Protonix DVT ppx: Heparin SC Dispo: Plan is to control BP and monitor mental status. Seen, reviewed, and discussed with attending Jonh Cardenas PGY2 <Sean Rubio - Last Filed: 03/26/17 14:39> Objective - Vital Signs/Intake and Output Vital Signs (last 24 hours): Temp Pulse Resp BP Pulse Ox 98.8 F 60 16 173/72 H 97 03/25/17 21:41 03/26/17 14:27 03/26/17 11:10 03/26/17 14:27 03/26/17 11:10 Intake and Output: 03/26/17 03/26/17 06:59 18:59 Intake Total 1686 9 Output Total 500 Balance 1186 9 - Medications Medications: Current Medications Acetaminophen (Tylenol 325mg Tab) 650 mg PO Q6H PRN PRN Reason: Pain, moderate (4-7) Atorvastatin Calcium (Lipitor) 40 mg PO DAILY [facility] Last Admin: 03/26/17 09:15 Dose: 40 mg Clonidine HCl (Catapres) 0.3 mg PO TID [facility] Last Admin: 03/26/17 14:27 Dose: 0.3 mg Clopidogrel Bisulfate (Plavix) 75 mg PO DAILY [facility] Last Admin: 03/26/17 09:15 Dose: 75 mg Heparin Sodium (Porcine) (Heparin) 5,000 units SC Q12 [facility] PRN Reason: Protocol Last Admin: 03/26/17 09:13 Dose: 5,000 units Nitroglycerin/Dextrose (Nitroglycerin 50 Mg/250 Ml D5w) 50 mg in 250 mls @ 7.5 mls/hr IV .Q24H PRN; Protocol; 25 MCG/MIN PRN Reason: Titrate per protocol Last Titration: 03/26/17 07:45 Dose: 30 mcg/min, 9 mls/hr Sodium Chloride (Sodium Chloride 0.45%) 1,000 mls @ 100 mls/hr IV .Q10H [facility] Last Admin: 03/26/17 10:40 Dose: 100 mls/hr Insulin Human Lispro (Humalog Med) 0 units SC ACHS [facility] PRN Reason: Protocol Last Admin: 03/26/17 11:30 Dose: Not Given Metoprolol Tartrate (Lopressor) 5 mg IVP Q6H [facility] Last Admin: 03/26/17 11:33 Dose: Not Given Ondansetron HCl (Zofran Inj) 4 mg IVP Q4H PRN PRN Reason: Nausea/Vomiting Last Admin: 03/25/17 23:48 Dose: 4 mg Pantoprazole Sodium (Protonix Inj) 40 mg IVP DAILY [facility] Last Admin: 03/26/17 09:13 Dose: 40 mg - Labs Labs: 03/26/17 05:00 03/26/17 05:00 PT 11.4 Seconds (9.9-11.8) 03/25/17 12:55 INR 1.06 (0.93-1.08) 03/25/17 12:55 APTT 80.5 Seconds (23.7-30.8) H* 03/26/17 05:00 Attending/Attestation - Attestation I have personally seen and examined this patient.: Yes I have fully participated in the care of the patient.: Yes I have reviewed all pertinent clinical information, including history, physical exam and plan: Yes Notes (Text): 03/26/17 14:36 Patient seen and examined at bedside. vitals, labs, orders and notes reviewed. Mental status changes noted. multi-speciality follow up appreciated. Continue IV hydration, plan to titrate and taper Nitro drip to decrease MAP by not more than 20% in first 24 hours. Follow cultures and serologies. Continue chronic medications including plavix. Agree with remainder of plan as discussed and outlined by the resident.
--- NOTE | 2017-03-26 12:59 | CP.PCM.CON ---
History of Present Illness - History of Present Illness History of Present Illness: 56 y/o M with PMH of CKD IV, htn, CAD, DM, PAD that presnted w/ altered mental status. He states he has not been taking any medications for many months. He is unable to provide much other history other than nausea and vomitting at home. He was brought in by a friend for altered mental status - he was found in ER to be in hypertensive emergency. He was borught to ICU where his bp is ipmroved and mental status has also improved. ROS: a full detailed ROS is negative except as above PMH: CKD IV,CAD, HTN, DM history of CVA PSH: Stents x 3, CABG, left hip surgery, Left knee surgery, Right foot partial amputation All: seafood SH: Denies recent tobacco, etoh, illicit drug use. fhx: denies esrd Past Patient History - Infectious Disease Hx of Infectious Diseases: None - Tetanus Immunizations Tetanus Immunization: Unknown - Past Medical History & Family History Past Medical History?: Yes - Past Social History Smoking Status: Never Smoked - CARDIAC Hx Cardiac Disorders: Yes (CABG x 3) Hx Hypertension: Yes - PULMONARY Hx Respiratory Disorders: Yes Other/Comment: PULMONARY EDEMA - NEUROLOGICAL Hx Neurological Disorder: No - HEENT Hx HEENT Problems: Yes (CONTACT LENSES) - RENAL Hx Chronic Kidney Disease: No - ENDOCRINE/METABOLIC Hx Diabetes Mellitus Type 1: Yes - HEMATOLOGICAL/ONCOLOGICAL Hx Blood Disorders: No - INTEGUMENTARY Hx Dermatological Problems: Yes Other/Comment: millicent hernández ext rash, pt stated "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" - MUSCULOSKELETAL/RHEUMATOLOGICAL Hx Musculoskeletal Disorders: No Hx Falls: No Other/Comment: generalized weakness - GASTROINTESTINAL Hx Gastrointestinal Disorders: No - GENITOURINARY/GYNECOLOGICAL Hx Urinary Tract Infection: Yes Other/Comment: pt had martinez inserted for cabg in december, martinez was removed post op at pt has been having problems urinating ever since. Multiple attempts have been made to remove martinez cat, but when it is removed pt can't void - PSYCHIATRIC Hx Psychophysiologic Disorder: No Hx Depression: No Hx Emotional Abuse: No Hx Physical Abuse: No Hx Substance Use: Yes (MARIJUANA) - SURGICAL HISTORY Hx Amputation: Yes (R toes) Hx Cardiac Catheterization: Yes (09/09) Hx Coronary Stent: Yes Hx Open Heart Surgery: Yes (12-26-12) - ANESTHESIA Hx Anesthesia: Yes Hx Anesthesia Reactions: No Meds Allergies/Adverse Reactions: Allergies Allergy/AdvReac Type Severity Reaction Status Date / Time morphine Allergy ANAPHYLAXIS Verified 03/25/17 12:24 sea food Allergy Severe ANAPHYLAXIS Uncoded 03/25/17 12:24 - Medications Medications: Current Medications Acetaminophen (Tylenol 325mg Tab) 650 mg PO Q6H PRN PRN Reason: Pain, moderate (4-7) Atorvastatin Calcium (Lipitor) 40 mg PO DAILY [facility] Last Admin: 03/26/17 09:15 Dose: 40 mg Clonidine HCl (Catapres) 0.3 mg PO TID [facility] Clopidogrel Bisulfate (Plavix) 75 mg PO DAILY [facility] Last Admin: 03/26/17 09:15 Dose: 75 mg Heparin Sodium (Porcine) (Heparin) 5,000 units SC Q12 [facility] PRN Reason: Protocol Last Admin: 03/26/17 09:13 Dose: 5,000 units Nitroglycerin/Dextrose (Nitroglycerin 50 Mg/250 Ml D5w) 50 mg in 250 mls @ 7.5 mls/hr IV .Q24H PRN; Protocol; 25 MCG/MIN PRN Reason: Titrate per protocol Last Titration: 03/26/17 07:45 Dose: 30 mcg/min, 9 mls/hr Sodium Chloride (Sodium Chloride 0.45%) 1,000 mls @ 100 mls/hr IV .Q10H [facility] Insulin Human Lispro (Humalog Med) 0 units SC ACHS [facility] PRN Reason: Protocol Last Admin: 03/26/17 08:15 Dose: 3 units Metoprolol Tartrate (Lopressor) 5 mg IVP Q6H [facility] Last Admin: 03/26/17 11:33 Dose: Not Given Ondansetron HCl (Zofran Inj) 4 mg IVP Q4H PRN PRN Reason: Nausea/Vomiting Last Admin: 03/25/17 23:48 Dose: 4 mg Pantoprazole Sodium (Protonix Inj) 40 mg IVP DAILY [facility] Last Admin: 03/26/17 09:13 Dose: 40 mg Physical Exam - Head Exam Head Exam: ATRAUMATIC - Eye Exam Eye Exam: Normal appearance - ENT Exam ENT Exam: Mucous Membranes Moist - Neck Exam Neck exam: Positive for: Normal Inspection - Respiratory Exam Respiratory Exam: NORMAL BREATHING PATTERN - Cardiovascular Exam Cardiovascular Exam: +S1, +S2 - GI/Abdominal Exam GI & Abdominal Exam: Normal Bowel Sounds - Rectal Exam Rectal Exam: NORMAL INSPECTION - Extremities Exam Extremities exam: Positive for: normal inspection - Back Exam Back exam: NORMAL INSPECTION - Neurological Exam Neurological exam: Alert, Oriented x3 - Psychiatric Exam Psychiatric exam: Normal Affect - Skin Skin Exam: Normal Color Results - Vital Signs Recent Vital Signs: Last Vital Signs Temp 98.8 F 03/25/17 21:41 Pulse 59 L 03/26/17 11:33 Resp 16 03/26/17 11:10 BP 148/77 03/26/17 11:33 Pulse Ox 97 03/26/17 11:10 - Labs Result Diagrams: 03/26/17 05:00 03/26/17 05:00 Labs: Laboratory Results - last 24 hr 03/25/17 03/25/17 03/25/17 16:45 16:45 18:13 WBC RBC Hgb Hct MCV MCH MCHC RDW Plt Count MPV Gran % Lymph % (Auto) Nicol[place] % (Auto) Eos % (Auto) Baso % (Auto) Gran # Lymph # Nicol[place] # Eos # Baso # APTT pO2 VBG pH VBG pCO2 VBG HCO3 VBG Total CO2 VBG O2 Sat (Calc) VBG Base Excess VBG Potassium Sodium Chloride Glucose Lactate FiO2 Potassium Carbon Dioxide Anion Gap BUN Creatinine Est GFR ( Amer) Est GFR (Non-Af Amer) POC Glucose (mg/dL) 213 H Random Glucose Calcium Total Creatine Kinase CK-MB (CK-2) CK-MB (CK-2) % Troponin I Triglycerides Cholesterol LDL Cholesterol Direct HDL Cholesterol TSH 3rd Generation Venous Blood Potassium Urine Color Yellow Urine Appearance Sl cloudy Urine pH 8.5 Ur Specific Wright 1.020 Urine Protein >=300 H Urine Glucose (UA) >=1000 Urine Ketones Negative Urine Blood Moderate H Urine Nitrate Negative Urine Bilirubin Negative Urine Urobilinogen 0.2 Ur Leukocyte Esterase Negative Urine RBC 5 - 10 Urine WBC 2 - 5 Ur Epithelial Cells 1 - 3 Urine Bacteria Few Urine Opiates Screen Negative Urine Methadone Screen Negative Ur Barbiturates Screen Negative Ur Phencyclidine Scrn Negative Ur Amphetamines Screen Negative U Benzodiazepines Scrn Negative U Oth Cocaine Metabols Negative U Cannabinoids Screen Positive H 03/25/17 03/25/17 03/25/17 21:30 21:30 22:20 WBC RBC Hgb Hct MCV MCH MCHC RDW Plt Count MPV Gran % Lymph % (Auto) Nicollet % (Auto) Eos % (Auto) Baso % (Auto) Gran # Lymph # [place] # Eos # Baso # APTT pO2 34 VBG pH 7.40 VBG pCO2 32.0 L VBG HCO3 19.8 L VBG Total CO2 20.8 L VBG O2 Sat (Calc) 69.1 H VBG Base Excess -4.0 L VBG Potassium 4.0 Sodium 157.0 H Chloride 101.0 Glucose 212 H Lactate 1.0 FiO2 21.0 Potassium Carbon Dioxide Anion Gap BUN Creatinine Est GFR ( Amer) Est GFR (Non-Af Amer) POC Glucose (mg/dL) 229 H Random Glucose Calcium Total Creatine Kinase CK-MB (CK-2) CK-MB (CK-2) % Troponin I 0.14 H* Triglycerides Cholesterol LDL Cholesterol Direct HDL Cholesterol TSH 3rd Generation Venous Blood Potassium 4.0 Urine Color Urine Appearance Urine pH Ur Specific Wright Urine Protein Urine Glucose (UA) Urine Ketones Urine Blood Urine Nitrate Urine Bilirubin Urine Urobilinogen Ur Leukocyte Esterase Urine RBC Urine WBC Ur Epithelial Cells Urine Bacteria Urine Opiates Screen Urine Methadone Screen Ur Barbiturates Screen Ur Phencyclidine Scrn Ur Amphetamines Screen U Benzodiazepines Scrn U Oth Cocaine Metabols U Cannabinoids Screen 03/25/17 03/26/17 03/26/17 23:10 05:00 05:00 WBC 6.7 D RBC 3.67 Hgb 9.4 L Hct 29.7 L MCV 80.9 MCH 25.6 MCHC 31.6 RDW 14.6 H Plt Count 180 MPV 12.5 H Gran % 69.4 H Lymph % (Auto) 21.4 L Nicollet % (Auto) 7.6 H Eos % (Auto) 1.2 L Baso % (Auto) 0.4 Gran # 4.68 Lymph # 1.4 Nicollet # 0.5 Eos # 0.1 Baso # 0.03 APTT 46.3 H pO2 VBG pH VBG pCO2 VBG HCO3 VBG Total CO2 VBG O2 Sat (Calc) VBG Base Excess VBG Potassium Sodium 143 Chloride 108 H Glucose Lactate FiO2 Potassium 4.4 Carbon Dioxide 22 Anion Gap 17 BUN 61 H Creatinine 7.1 H Est GFR ( Amer) 10 Est GFR (Non-Af Amer) 8 POC Glucose (mg/dL) Random Glucose 209 H Calcium 7.8 L Total Creatine Kinase CK-MB (CK-2) CK-MB (CK-2) % Troponin I 0.11 D Triglycerides Cholesterol LDL Cholesterol Direct HDL Cholesterol TSH 3rd Generation Venous Blood Potassium Urine Color Urine Appearance Urine pH Ur Specific Wright Urine Protein Urine Glucose (UA) Urine Ketones Urine Blood Urine Nitrate Urine Bilirubin Urine Urobilinogen Ur Leukocyte Esterase Urine RBC Urine WBC Ur Epithelial Cells Urine Bacteria Urine Opiates Screen Urine Methadone Screen Ur Barbiturates Screen Ur Phencyclidine Scrn Ur Amphetamines Screen U Benzodiazepines Scrn U Oth Cocaine Metabols U Cannabinoids Screen 03/26/17 03/26/17 03/26/17 05:00 08:50 08:50 WBC RBC Hgb Hct MCV MCH MCHC RDW Plt Count MPV Gran % Lymph % (Auto) Nicollet % (Auto) Eos % (Auto) Baso % (Auto) Gran # Lymph # Nicollet # Eos # Baso # APTT 80.5 H* pO2 VBG pH VBG pCO2 VBG HCO3 VBG Total CO2 VBG O2 Sat (Calc) VBG Base Excess VBG Potassium Sodium Chloride Glucose Lactate FiO2 Potassium Carbon Dioxide Anion Gap BUN Creatinine Est GFR ( Amer) Est GFR (Non-Af Amer) POC Glucose (mg/dL) Random Glucose Calcium Total Creatine Kinase 965 H CK-MB (CK-2) 4.0 H CK-MB (CK-2) % Cancelled Troponin I Triglycerides 133 Cholesterol 184 LDL Cholesterol Direct 134 H HDL Cholesterol 38 TSH 3rd Generation 0.68 Venous Blood Potassium Urine Color Urine Appearance Urine pH Ur Specific Wright Urine Protein Urine Glucose (UA) Urine Ketones Urine Blood Urine Nitrate Urine Bilirubin Urine Urobilinogen Ur Leukocyte Esterase Urine RBC Urine WBC Ur Epithelial Cells Urine Bacteria Urine Opiates Screen Urine Methadone Screen Ur Barbiturates Screen Ur Phencyclidine Scrn Ur Amphetamines Screen U Benzodiazepines Scrn U Oth Cocaine Metabols U Cannabinoids Screen 03/26/17 11:03 WBC RBC Hgb Hct MCV MCH MCHC RDW Plt Count MPV Gran % Lymph % (Auto) Nicollet % (Auto) Eos % (Auto) Baso % (Auto) Gran # Lymph # Nicollet # Eos # Baso # APTT pO2 VBG pH VBG pCO2 VBG HCO3 VBG Total CO2 VBG O2 Sat (Calc) VBG Base Excess VBG Potassium Sodium Chloride Glucose Lactate FiO2 Potassium Carbon Dioxide Anion Gap BUN Creatinine Est GFR ( Amer) Est GFR (Non-Af Amer) POC Glucose (mg/dL) Random Glucose Calcium Total Creatine Kinase 972 H CK-MB (CK-2) 4.0 H CK-MB (CK-2) % Cancelled Troponin I Triglycerides Cholesterol LDL Cholesterol Direct HDL Cholesterol TSH 3rd Generation Venous Blood Potassium Urine Color Urine Appearance Urine pH Ur Specific Wright Urine Protein Urine Glucose (UA) Urine Ketones Urine Blood Urine Nitrate Urine Bilirubin Urine Urobilinogen Ur Leukocyte Esterase Urine RBC Urine WBC Ur Epithelial Cells Urine Bacteria Urine Opiates Screen Urine Methadone Screen Ur Barbiturates Screen Ur Phencyclidine Scrn Ur Amphetamines Screen U Benzodiazepines Scrn U Oth Cocaine Metabols U Cannabinoids Screen Assessment & Plan - Assessment and Plan (Free Text) Assessment: ARF / Hypertensive emergency / Anemia / Toxic metabolic encephalopathy / Plan: KITA - has hx of ckd III/IV w/ worsening renal function this admission. Has been non compliant w/ both dm and hypertensive control. Renal failrue either from progression of his b/l renal disease v pre-renal v hypertensive emergency. Recc reduce MAP only by 20-25 %. Recc r/o MAHA from malignant hypertension- check LDH, repeat tbili, haptoclobin, and check smear. His mental status seems much improved- he recognized me as his kidney doctors and although took him time to recall date and year and location he answered all correctly. Will monitor - not sure if will need to start HD or not will see if renal function improves. Agree w/ 2 ns for gentle hydration - he does not appear to have any volume overload. Discussed w/ ICU housestaff.
--- NOTE | 2017-03-26 13:10 | PN ---
DATE: 03/26/2017 SUBJECTIVE: The patient is seen and examined at bedside. He is comfortable. He appears to be rested overnight. He is alert and oriented to person, partial in time and in place. He reports subjectively doing better. He reports he is thirsty and hungry. PHYSICAL EXAMINATION VITAL SIGNS: Blood pressure 159/76, heart rate 54, respiratory rate 19, oxygen saturation 100% on 2 L nasal canula. HEAD AND NECK: Head and neck atraumatic. LUNGS: Clear to auscultation bilaterally. HEART: Regular rate and rhythm. S1, S2 normal. ABDOMEN: Soft, nontender, nondistended. MUSCULOSKELETAL: No C/C/E. NEUROLOGIC: The patient moves all extremities spontaneously. SKIN: Moist. PSYCHIATRIC: The patient is alert and awake. LABORATORY DATA: Sodium 143, potassium 4.4, chloride 108, carbon dioxide 22, BUN 61, creatinine 7.1 down from 7.7. He made about 500 mL of urine overnight. Glucose 209. The patient will be started on insulin sliding scale. Troponin 0.11 down from 0.14. VBG showed 7.4/32. Lactic acid 1. MEDICATIONS: Tylenol p.r.n., Lipitor 40 mg daily, clonidine 0.2 mg p.o. b.i.d., Plavix 75 mg p.o. daily, Precedex was stopped, heparin subcu for DVT prophylaxis. Regular sodium sliding scale medium protocol. Metoprolol, nitroglycerin drip, Zofran p.r.n., Protonix. ASSESSMENT AND PLAN: This is a 56-year-old gentleman who presented with hypertensive emergency, complicated by acute kidney injury on top of chronic kidney disease, myocardial ischemia and encephalopathy in the absence of intracranial stroke or hemorrhage. At the present time, the patient's blood pressure is better controlled. He is, however, still on a nitroglycerin drip. Clonidine 0.2 mg p.o. b.i.d. and metoprolol 5 mg IV q. 6 hours were started. We will start oral nutrition and hydration as the patient denies nausea and vomiting anymore. Possibility of cyclic vomiting syndrome in the setting of chronic cannabis abuse is possible especially that the patient reports that episodes of nausea and vomiting occur more often with the cannabis use. Meanwhile, his creatinine improved. He is on 1/2 normal saline 100 mL per hour. He is more alert, awake and oriented. Overnight, he was little bit agitated and Precedex was started; however, discontinued at present time. We will continue to target euvolemia, glycemia, pneumothermia and oxygen saturation more than 90%. We will continue to walk with oral and IV push antihypertensive medication to wean off nitroglycerin drip. Cardiology and Nephrology consult were requested. We will continue with DVT and GI prophylaxis. Addendum: increased clonidine to 0.3 PO TID ccm time 40 min Fernando Weiss MD MTDD
--- NOTE | 2017-03-26 13:41 | CARD ---
APPROVED REPORT EKG Measurement Heart [id number] <Conclusion> Normal sinus rhythm Minimal voltage criteria for LVH, may be normal variant Septal infarct, age undetermined Inferior infarct, age undetermined T wave abnormality, consider lateral ischemia Abnormal ECG
--- NOTE | 2017-03-26 14:05 | CARD ---
APPROVED REPORT EKG Measurement Heart [id number] <Conclusion> Normal sinus rhythm Left ventricular hypertrophy ST & T wave abnormality, consider lateral ischemia Inferior infarct, age undetermined Anteroseptal infarct, age undetermined Abnormal ECG
--- NOTE | 2017-03-26 14:30 | CON ---
DATE: 03/26/2017 CHIEF COMPLAINT: Altered mental status. HISTORY OF PRESENT ILLNESS: This is a 56-year-old man with a past medical history of hypertension; coronary artery disease, status post stent; history of myocardial infarction, status post coronary artery bypass; history of type 2 diabetes mellitus; history of diabetic peripheral neuropathy; history of right foot amputation of the toes; history of recent lacunar infarction on MRI of 04/06/2016 in the right caudate, left posterior parietooccipital region and posterior medial aspect of the left billy who came in with change in mentation, found to have elevated systolic and diastolic blood pressures, also had an elevated BUN and creatinine, some metabolic derangements and some elevated troponins. I was consulted for altered mental status. Currently, his blood pressure is much more stabilized. He is following simple commands and is moving all extremities. He has a low attention span at baseline from what I have seen him from and he has evidence of diabetic peripheral neuropathy on examination. PAST MEDICAL HISTORY: History of hypertension; coronary artery disease, status post stents, status post CABG; history of RI; history of diabetic peripheral neuropathy; history of uncontrolled diabetes type 2; history of amputation of the toes; history of lacunar infarcts from MRI of 04/06/2016, in the right caudate head to left posterior parietooccipital region and posterior medial aspect of left billy. ALLERGIES: ALLERGIC TO MORPHINE AND SEA FOOD. MEDICATIONS: Reviewed by nurse practitioner, see med reconciliation sheet. SOCIAL HISTORY: No illicit drug use, smoking or EtOH abuse at this time. PAST SURGICAL HISTORY: Coronary artery disease, history of coronary artery stent, CABG, history of right foot amputation. REVIEW OF SYSTEMS: A 14-point review of system is negative except as in the HPI. PHYSICAL EXAMINATION VITAL SIGNS: Temperature afebrile, pulse rate 69, blood pressure 164/81, respiratory rate of 22, oxygen saturation 97% on room air. GENERAL: The patient seen up in bed. No acute distress. HEENT: Atraumatic and normocephalic. PERRLA. Extraocular muscles intact. NECK: Supple. No JVD. No adenopathy noted. LUNGS: Clear to auscultation. No adventitious sounds. HEART: S1 and S2. Normal rate and rhythm. No murmurs, rubs, or gallops. ABDOMEN: Soft, nontender, nondistended. Bowel sounds are present. EXTREMITIES: No clubbing. No cyanosis. Peripheral pulses 2+ felt bilaterally. He has amputation on his right toes. NEUROLOGIC: The patient is alert and oriented to person and place, month, and year. Has a low attention span, recall after 5 minutes 1 out of 3. Slowed thought process. Judgment is intact and fair. Speech is fluent without any errors. Motor exam: Slight increased tone throughout. Moves all extremities equally. No pronator drift seen. Sensory exam: Decreased light touch and pinprick up to calves bilaterally. DTRs are 1+ throughout and absent in ankles. Coordination: [id number] intact and no dysmetria seen. Gait is deferred for now. LABORATORY DATA: Sodium is 132, potassium is 4.4, chloride 106, carbon dioxide 22, BUN of 22, creatinine of 7.1, random glucose of 209. ASSESSMENT AND PLAN: This is a 56-year-old with history of coronary artery disease, history of cardiac stents and myocardial infarction and CABG, history of dyslipidemia, history of type 2 diabetes mellitus, diabetic peripheral neuropathy, history of right foot amputation, history of recent lacunar infarction on the MRI of the brain on 04/06/2016 in the right head of the caudate, left posterior parietooccipital region and posterior medial aspect of left billy causing a change in mentation, found to have elevated systolic and diastolic blood pressures secondary to noncompliance with medications metabolic encephalopathy from acute on chronic renal insufficiency superimposed on hypertensive urgency. At this time recommend: 1. Keep a systolic blood pressure greater than 130 to 140 and adjust his antihypertensives. 2. Continue with Plavix 75 mg and Lipitor 40 mg for stroke prevention. 3. Monitor electrolytes and correct accordingly. 4. Follow up with nephrology recommendations in regards to his renal insufficiency as well as hypertension and continue with current present medical management. Neurologically stable. Thank you for this consult. Nikos Keith MD
--- NOTE | 2017-03-26 14:46 | CON ---
DATE OF CONSULTATION: 03/26/2017 REQUESTING PHYSICIAN: Dr. Muir. REASON FOR CONSULTATION: Coronary artery disease, elevated troponin. HISTORY OF PRESENT ILLNESS: This is a 56-year-old man with known coronary artery disease, status post prior bypass surgery, who presented to the emergency room with confused and disorientation. It is unclear if he was taking his medications. Upon admission, he was noted to be markedly hypertensive with EKG changes. He had no chest pain upon admission. He was also found to be in renal failure. He is currently seen in the ICU. He is currently on IV heparin, IV nitroglycerin and Precedex. He denies any chest pain. He is drowsy, but arousable and he answers questions. PAST MEDICAL HISTORY: Notable for the problems mentioned above. He does have known coronary artery disease and underwent prior bypass surgery. He has history peripheral vascular disease with amputation of several toes on his right foot. He also has a history of chronic renal insufficiency, diabetes or hypertension. MEDICATION: Listed were aspirin, carvedilol 12.5 mg b.i.d., Lipitor 40 mg daily, omeprazole 20 mg daily, Plavix 75 mg daily and Zestril as well as insulin. ALLERGIES: APPARENTLY HE HAS HAD REACTION TO MORPHINE AND SEAFOOD IN THE PAST. FAMILY HISTORY: Both parents are , cause unknown. SOCIAL HISTORY: He has a history of heavy alcohol abuse in the past, but apparently has been abstain for the past several years. He does not smoke cigarettes, but does smoke marijuana. REVIEW OF SYSTEMS: A 10-point review of systems is notable mainly from the problems mentioned above. PHYSICAL EXAMINATION: GENERAL: He is a somewhat disheveled appearing middle-aged man. VITAL SIGNS: Blood pressure is 190/78 with pulse of 54 and sinus, respirations are 14. He is afebrile. HEENT: Normocephalic, and atraumatic. NECK: Supple. No JVD noted. CHEST: Bilateral scattered rhonchi heard. HEART: PMI displaced laterally with systolic murmur, left sternal border. ABDOMEN: Soft and nontender. Normoactive bowel sounds. EXTREMITIES: Toe amputations noted on the right. No edema present, diminished pulses are noted. PSYCHIATRIC: Somewhat flat affect, but otherwise normal. NEUROLOGIC: No gross, motor, or sensory deficits appreciated. DIAGNOSTIC DATA: Electrocardiogram reveals sinus rhythm with LVH repolarization abnormalities. Chest X-ray reveals post sternotomy changes increase cardiac silhouette with clear lung davis. White count is 10.2, hemoglobin and hematocrit 12.8 and 37.7 and platelet count is 271,000. PTT 46.3, recent blood gas showed pH of 7.55, pCO2 of 23 and pO2 of 98, potassium 3.8, BUN and creatinine 62 and 7.7. Glucose is initially 334 and repeat is 213. CK is 13,115, with negative MB fraction. Troponin 0.13 and followup is 0.14. Toxicology screen is positive for cannabinoids. IMPRESSION: 1. Hypertensive urgency likely due to noncompliance with medications. 2. Coronary artery disease, status post prior bypass surgery. 3. Borderline troponin elevation likely due to reduced renal clearance, electrocardiogram shows pattern of left ventricular hypertrophy with repolarization abnormalities. No clear ischemia. 4. Acute on chronic renal insufficiency. 5. Rest of the problems as noted. RECOMMENDATION: 1. As there is no clear evidence of acute myocardial injury, full anticoagulation can be discontinued and DVT prophylaxis initiated. 2. Continued treatment for his accelerated hypertension is advised, IV nitroglycerine has been initiated at this point in time, but it may be prudent to switch to intervenous Cardene or labetalol for more appropriate management In addition, resumption of his oral agents should be intiated once felt appropriate. An echocardiogram will be ordered well. We will continue to follow and make further recommendations as appropriate. Manuel Mills MD MTDD
[2017-03-26] MEDS: Nitroglycerin 50mg in D5W 50 MG/250 ML BOTTLE IV PRN (22:57)
[2017-03-27 06:31] LABS: BASO # 0.05 K/mm3 (0.0-2.0); BASO % 1.1 % (0.0-3.0); EOS # 0.2 (0.0-0.7); GRAN # 2.47 (1.4-6.5); GRAN % 55.4 % (50.0-68.0); LYMPH # 1.3 (1.2-3.4); LYMPH % 29.6 % (22.0-35.0); MEAN CELL VOLUME 80.5 fL (80.0-105.0); MEAN CORPUSCULAR HEMOGLOBIN 26.2 pg (25.0-35.0); MEAN CORPUSCULAR HGB CONC 32.5 g/dl (31.0-37.0); MEAN PLATELET VOLUME 11.4 fl (7.0-11.0); MONO # 0.4 (0.1-0.6); MONO % 9.9 % (1.0-6.0); PLATELET COUNT 140 10^3/uL (120.0-450.0); RBC 3.02 10^6/uL (3.5-6.1); RED CELL DISTRIBUTION WIDTH 14.7 % (11.5-14.5); WHITE BLOOD COUNT 4.5 10^3/ul (4.5-11.0)
[2017-03-27 06:40] LABS: BILIRUBIN,DIRECT 0.3 mg/dL (0.0-0.4)
[2017-03-27 07:02] LABS: HEMOGLOBIN 7.9 gm/dL (14.0-18.0)
[2017-03-27 07:25] LABS: CALCIUM 6.5 mg/dL (8.4-10.5)
[2017-03-27 07:50] LABS: CK-MB 2.8 ng/mL (0.0-3.6)
[2017-03-27] MEDS: Insulin Lispro (humaLOG) MEDIUM Coverage SC SCH ×4 (08:12→22:57)
[2017-03-27] MEDS: Sodium Chloride 0.45% 1,000 ML IV SCH ×3 (08:14→20:04)
--- NOTE | 2017-03-27 09:01 | CP.PCM.PN ---
Subjective - Date & Time of Evaluation Date of Evaluation: 03/27/17 Time of Evaluation: 07:00 - Subjective Subjective: Stable in ICU. Events of w/e noted. No CP or SOB. He feels OK. V/S noted. RSR. BP better this AM PE: Lungs: clear Cor.: S1S2 Abd.: soft Ext.: mild edema Neuro.: alert I/O= 3588/1525 Labs noted: H/H 7.9/24.3, Na+= 128, K+= 3.1, BUN = 53, Cr. = 6.3 Objective - Vital Signs/Intake and Output Vital Signs (last 24 hours): Temp Pulse Resp BP Pulse Ox 97.9 F 52 L 14 148/84 99 03/27/17 04:00 03/27/17 08:20 03/27/17 08:20 03/27/17 06:47 03/27/17 08:20 Intake and Output: 03/27/17 03/27/17 06:59 18:59 Intake Total 1777 Output Total 900 Balance 877 - Medications Medications: Current Medications Acetaminophen (Tylenol 325mg Tab) 650 mg PO Q6H PRN PRN Reason: Pain, moderate (4-7) Atorvastatin Calcium (Lipitor) 40 mg PO DAILY [facility] Last Admin: 03/26/17 09:15 Dose: 40 mg Clonidine HCl (Catapres) 0.3 mg PO TID [facility] Last Admin: 03/26/17 17:08 Dose: 0.3 mg Clopidogrel Bisulfate (Plavix) 75 mg PO DAILY [facility] Last Admin: 03/26/17 09:15 Dose: 75 mg Heparin Sodium (Porcine) (Heparin) 5,000 units SC Q12 MARYANN PRN Reason: Protocol Last Admin: 03/26/17 22:35 Dose: 5,000 units Hydralazine HCl (Apresoline) 10 mg IVP Q4H PRN PRN Reason: Systolic Blood Pressure Last Admin: 03/26/17 22:47 Dose: 10 mg Hydralazine HCl (Apresoline) 20 mg IVP Q4H PRN PRN Reason: Systolic Blood Pressure Sodium Chloride (Sodium Chloride 0.45%) 1,000 mls @ 100 mls/hr IV .Q10H [facility] Last Admin: 03/27/17 08:24 Dose: Not Given Insulin Human Lispro (Humalog Med) 0 units SC ACHS MARYANN PRN Reason: Protocol Last Admin: 03/27/17 08:12 Dose: 3 units Metoprolol Tartrate (Lopressor) 5 mg IVP Q6H [facility] Last Admin: 03/26/17 17:04 Dose: Not Given Ondansetron HCl (Zofran Inj) 4 mg IVP Q4H PRN PRN Reason: Nausea/Vomiting Last Admin: 03/25/17 23:48 Dose: 4 mg Pantoprazole Sodium (Protonix Inj) 40 mg IVP DAILY [facility] Last Admin: 03/26/17 09:13 Dose: 40 mg - Labs Labs: 03/27/17 05:20 03/27/17 05:20 PT 11.4 Seconds (9.9-11.8) 03/25/17 12:55 INR 1.06 (0.93-1.08) 03/25/17 12:55 APTT 80.5 Seconds (23.7-30.8) H* 03/26/17 05:00 Assessment and Plan - Assessment and Plan (Free Text) Assessment: Assessment: AMS Hypertensive emergency in the setting of medical non-compliance Acute on chronic kidney disease CAD/CABG HBP Diabetes PVD/amputation toes right foot H/O ETOH Smokes marijuana CVA Surgeries: Left hip and knee Plan: As per renal IV NTG > PO BP meds Resume Coreg, Lipitor, ASA, Plavix Check echo OOB to chair as violetta. Monitor: labs, I/O, sats., H/H, stool for OB, BS's, etc.
[2017-03-27 09:17] LABS: BASO # 0.04 K/mm3 (0.0-2.0); BASO % 0.8 % (0.0-3.0); EOS # 0.2 (0.0-0.7); GRAN # 2.84 (1.4-6.5); HEMOGLOBIN 8.7 gm/dL (14.0-18.0); LYMPH # 1.3 (1.2-3.4); LYMPH % 27.6 % (22.0-35.0); MEAN CORPUSCULAR HEMOGLOBIN 25.6 pg (25.0-35.0); MEAN PLATELET VOLUME 11.6 fl (7.0-11.0); MONO # 0.4 (0.1-0.6); MONO % 7.6 % (1.0-6.0); PLATELET COUNT 161 10^3/uL (120.0-450.0); RED CELL DISTRIBUTION WIDTH 14.2 % (11.5-14.5); WHITE BLOOD COUNT 4.7 10^3/ul (4.5-11.0)
[2017-03-27 09:30] LABS: ALBUMIN 2.6 g/dL (3.0-4.8); CALCIUM 7.2 mg/dL (8.4-10.5); MAGNESIUM 1.6 mg/dL (1.7-2.2)
[2017-03-27 10:57] LABS: % IRON SATURATION 34 % (20-55); IRON 67 ug/dL (45-180); TOTAL IRON BINDING CAPACITY 198 ug/dL (261-462)
--- NOTE | 2017-03-27 12:24 | CP.PCM.PN ---
Subjective - Date & Time of Evaluation Date of Evaluation: 03/27/17 Time of Evaluation: 12:06 - Subjective Subjective: Follow up Nephrology Consultation Note Assessment: critical Acute Kidney Injury (N17.9) versus progressive CKD stage 5 Uncontrolled severe HTN with emergency, Altered mental status (toxic metabolic encephalopathy) Diabetic chronic Kidney Disease (E11.22) Hypertensive Chronic Kidney Disease (I12.9) hx of Chronic Kidney Disease (N18.4) Stage 4 with 7 gram proteinuria (R80.9), nephrotic syndrome likely due to diabetes in 2016 Anemia (D64.9), Hyperphosphatemia (E83.39), HTN (I12.9), hypomagnesemia, hypokalemia, metabolic acidosis active marijuana smoker, ex etoh abuse Non-compliant to medications and Follow up CAd sp CABG Plan renal replacement therapy is indicated at this time considering his persistently low GFR and current symptoms/presentation. His absolute lack of follow up and medication non-compliance makes him highly unreliable for close outpatient follow up without dialysis initiation. pt agreeable, consent for dialysis obtained. discussed dialysis modality such as PD versus HD and pt opted for HD. Will plan for HD as ordered once permacath is inserted by IR (by today or tomorrow). Consult vascular surgery for AVF in non-dominant arm (right). Avoid phlebotomy in Rt upper extremity. Hypertension control with meds as ordered. Patient not on ACEI/ARB due to advanced CKD. will start once on HD. would like to taper off clonidine due to risk of rebound HTN with his compliance issues. CCB such as amlodipine will be a good choice in addition to beta-anjelica and ARBs. supplement electrolytes. Monitor Input/Output, daily weights and renal function with basic metabolic panel. d/c michelle at the earliest. Check urine analysis, spot protein/creatinine and albumin/creatinine ratio. Check for 25-OH vitamin D, iPTH, phosphorus level. Iron studies as TSAT, Ferritin, b12/folate level Check HIV/Hep B and Hep C serology. Dose meds/antibiotics for reduced GFR<10. Avoid fleets enema/magnesium based laxatives. Avoid nephrotoxins/NSAIDs/ iodinated contrast (unless needed emergently) Glycemic control. renal diet Further work up for as per primary team Thanks for allowing me to participate in care of your patient. Will follow patient with you. Please call if any Qs. d/w ICU and primary team. d/w dialysis rn discharge. Dr Sancho Garrett Office: [phone] Subjective: Noted events overnight. Patients feels better. Denies chest pain, palpitation, leg swelling. No urinary complaints. has martinez. reports of nausea/ vomitting earlier. also c/o blurry vision. smokes THC but denies Etoh or tobacco. he mostly uses walker or wheelchair for ambulation. 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 Vitals reviewed and noted as below Lungs: Normal respiratory rate/effort. Breath sounds bilateral equal and clear Heart: Normal rate. s1s2 normal. No rub or gallop. Extremities: no edema. s/p Rt forefoot amputation. has left heel ulcer Neurological: Patient is alert, awake and oriented to person, place and time. No focal deficit. Strength bilateral appropriate and equal. has mild axterixis Skin: Warm and dry. Normal turgor. No rash. Palpitation: Normal elasticity for age Abdomen: Abdomen is soft. Bowel sounds +. There is no abdominal tenderness, no guarding/rigidity or organomegaly : kidney or bladder not palpable. has martinez + Access: none Labs/imaging reviewed. Past medical history, past surgical history, family history, social history, allergy reviewed work up; in 2016; normal complements, and neg MARY, neg Hep B/C Objective - Vital Signs/Intake and Output Vital Signs (last 24 hours): Temp Pulse Resp BP Pulse Ox 97.9 F 55 L 25 H 150/72 99 03/27/17 04:00 03/27/17 12:02 03/27/17 12:02 03/27/17 12:02 03/27/17 12:02 Intake and Output: 03/27/17 03/27/17 06:59 18:59 Intake Total 1777 Output Total 900 Balance 877 - Medications Medications: Current Medications Acetaminophen (Tylenol 325mg Tab) 650 mg PO Q6H PRN PRN Reason: Pain, moderate (4-7) Atorvastatin Calcium (Lipitor) 40 mg PO DAILY [facility] Last Admin: 03/27/17 09:12 Dose: 40 mg Clonidine HCl (Catapres) 0.3 mg PO TID [facility] Last Admin: 03/27/17 09:13 Dose: 0.2 mg Clopidogrel Bisulfate (Plavix) 75 mg PO DAILY [facility] Last Admin: 03/27/17 09:12 Dose: 75 mg Heparin Sodium (Porcine) (Heparin) 5,000 units SC Q12 MARYANN PRN Reason: Protocol Last Admin: 03/27/17 09:11 Dose: 5,000 units Hydralazine HCl (Apresoline) 10 mg IVP Q4H PRN PRN Reason: Systolic Blood Pressure Last Admin: 03/26/17 22:47 Dose: 10 mg Hydralazine HCl (Apresoline) 20 mg IVP Q4H PRN PRN Reason: Systolic Blood Pressure Last Admin: 03/27/17 11:02 Dose: 10 mg Sodium Chloride (Sodium Chloride 0.45%) 1,000 mls @ 100 mls/hr IV .Q10H [facility] Last Admin: 03/27/17 08:24 Dose: Not Given Potassium Chloride (Potassium Chloride 10 Meq/100 Ml) 10 meq in 100 mls @ 100 mls/hr IVPB Q2H [facility] Stop: 03/27/17 13:59 Last Admin: 03/27/17 11:22 Dose: 100 mls/hr Insulin Human Lispro (Humalog Med) 0 units SC ACHS [facility] PRN Reason: Protocol Last Admin: 03/27/17 08:12 Dose: 3 units Magnesium Oxide (Mag-Ox) 400 mg PO BID [facility] Stop: 03/30/17 12:31 Metoprolol Tartrate (Lopressor) 5 mg IVP Q6H [facility] Last Admin: 03/26/17 17:04 Dose: Not Given Ondansetron HCl (Zofran Inj) 4 mg IVP Q4H PRN PRN Reason: Nausea/Vomiting Last Admin: 03/25/17 23:48 Dose: 4 mg Pantoprazole Sodium (Protonix Inj) 40 mg IVP DAILY [facility] Last Admin: 03/27/17 09:11 Dose: 40 mg - Labs Labs: 03/27/17 09:00 03/27/17 09:00 PT 11.4 Seconds (9.9-11.8) 03/25/17 12:55 INR 1.06 (0.93-1.08) 03/25/17 12:55 APTT 80.5 Seconds (23.7-30.8) H* 03/26/17 05:00
--- NOTE | 2017-03-27 14:29 | CP.PCM.CON ---
<Zeyad Segura - Last Filed: 03/27/17 14:47> History of Present Illness - History of Present Illness History of Present Illness: SURGERY CONSULT NOTE FOR DR. MOTA/BEBO 56 yo M admitted today for AMS. Pt states that he didn't know what day it was when his friend came to his house to check on him. Pt states that he had been vomiting and bedridden for a "few days" before his friends came to check on him. He states that he has been noncompliant with his diabetes medications for over 5 years. He ran out of his medication and stopped taking it. He also has hx of non-healing foot wounds, s/p R partial forefoot amputation. PMHx: CAD, HTN, MIx3, DM, CVA PSHx: PCI w stents x3, CABG x3, L hip sx, L knee sx, R partial food amputation, cholecystectomy Social: occasional marijuana use. denies alcohol. Never smoker. ALL: morphine (anaphylaxis), seafood (anaphylaxis) Review of Systems - Gastrointestinal Gastrointestinal: Nausea, Vomiting - Neurological Neurological: Confusion Past Patient History - Infectious Disease Hx of Infectious Diseases: None - Tetanus Immunizations Tetanus Immunization: Unknown - Past Medical History & Family History Past Medical History?: Yes - Past Social History Smoking Status: Never Smoked - CARDIAC Hx Cardiac Disorders: Yes (CABG x 3) Hx Hypertension: Yes - PULMONARY Hx Respiratory Disorders: Yes Other/Comment: PULMONARY EDEMA - NEUROLOGICAL Hx Neurological Disorder: No - HEENT Hx HEENT Problems: Yes (CONTACT LENSES) - RENAL Hx Chronic Kidney Disease: No - ENDOCRINE/METABOLIC Hx Diabetes Mellitus Type 1: Yes - HEMATOLOGICAL/ONCOLOGICAL Hx Blood Disorders: No - INTEGUMENTARY Hx Dermatological Problems: Yes Other/Comment: millicent hernández ext rash, pt stated "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" - MUSCULOSKELETAL/RHEUMATOLOGICAL Hx Musculoskeletal Disorders: No Hx Falls: No Other/Comment: generalized weakness - GASTROINTESTINAL Hx Gastrointestinal Disorders: No - GENITOURINARY/GYNECOLOGICAL Hx Urinary Tract Infection: Yes Other/Comment: pt had martinez inserted for cabg in december, martinez was removed post op at pt has been having problems urinating ever since. Multiple attempts have been made to remove martinez cat, but when it is removed pt can't void - PSYCHIATRIC Hx Psychophysiologic Disorder: No Hx Depression: No Hx Emotional Abuse: No Hx Physical Abuse: No Hx Substance Use: Yes (MARIJUANA) - SURGICAL HISTORY Hx Amputation: Yes (R toes) Hx Cardiac Catheterization: Yes (09/09) Hx Coronary Stent: Yes Hx Open Heart Surgery: Yes (12-26-12) - ANESTHESIA Hx Anesthesia: Yes Hx Anesthesia Reactions: No Meds Allergies/Adverse Reactions: Allergies Allergy/AdvReac Type Severity Reaction Status Date / Time morphine Allergy ANAPHYLAXIS Verified 03/25/17 12:24 sea food Allergy Severe ANAPHYLAXIS Uncoded 03/25/17 12:24 - Medications Medications: Current Medications Acetaminophen (Tylenol 325mg Tab) 650 mg PO Q6H PRN PRN Reason: Pain, moderate (4-7) Atorvastatin Calcium (Lipitor) 40 mg PO DAILY [facility] Last Admin: 03/27/17 09:12 Dose: 40 mg Clonidine HCl (Catapres) 0.3 mg PO TID [facility] Last Admin: 03/27/17 14:11 Dose: 0.3 mg Clopidogrel Bisulfate (Plavix) 75 mg PO DAILY [facility] Last Admin: 03/27/17 09:12 Dose: 75 mg Heparin Sodium (Porcine) (Heparin) 5,000 units SC Q12 [facility] PRN Reason: Protocol Last Admin: 03/27/17 09:11 Dose: 5,000 units Hydralazine HCl (Apresoline) 10 mg IVP Q4H PRN PRN Reason: Systolic Blood Pressure Last Admin: 03/26/17 22:47 Dose: 10 mg Hydralazine HCl (Apresoline) 20 mg IVP Q4H PRN PRN Reason: Systolic Blood Pressure Last Admin: 03/27/17 11:02 Dose: 10 mg Sodium Chloride (Sodium Chloride 0.45%) 1,000 mls @ 100 mls/hr IV .Q10H [facility] Last Admin: 03/27/17 08:24 Dose: Not Given Insulin Human Lispro (Humalog Med) 0 units SC ACHS [facility] PRN Reason: Protocol Last Admin: 03/27/17 14:10 Dose: 3 units Magnesium Oxide (Mag-Ox) 400 mg PO BID [facility] Stop: 03/30/17 12:31 Metoprolol Tartrate (Lopressor) 5 mg IVP Q6H [facility] Last Admin: 03/26/17 17:04 Dose: Not Given Ondansetron HCl (Zofran Inj) 4 mg IVP Q4H PRN PRN Reason: Nausea/Vomiting Last Admin: 03/25/17 23:48 Dose: 4 mg Pantoprazole Sodium (Protonix Inj) 40 mg IVP DAILY [facility] Last Admin: 03/27/17 09:11 Dose: 40 mg Physical Exam - Constitutional Appears: Non-toxic, No Acute Distress - Head Exam Head Exam: ATRAUMATIC - Eye Exam Eye Exam: EOMI, PERRL - ENT Exam ENT Exam: Mucous Membranes Moist - Respiratory Exam Respiratory Exam: Clear to Auscultation Bilateral, NORMAL BREATHING PATTERN - Cardiovascular Exam Cardiovascular Exam: REGULAR RHYTHM, +S1, +S2 - GI/Abdominal Exam GI & Abdominal Exam: Soft. absent: Distended, Firm, Mass, Rebound, Rigid, Tenderness - Extremities Exam Extremities exam: Negative for: pedal edema, tenderness Additional comments: S/p R forefoot amputation. Distal sensation intact grossly. L foot with old 8 cm healed calcaneal scar. - Neurological Exam Neurological exam: Alert, Oriented x3 - Psychiatric Exam Psychiatric exam: Normal Affect, Normal Mood - Skin Skin Exam: Dry, Intact, Normal Color, Warm Results - Vital Signs Recent Vital Signs: Last Vital Signs Temp 97.9 F 03/27/17 04:00 Pulse 51 L 03/27/17 14:11 Resp 25 H 03/27/17 12:02 BP 149/84 03/27/17 14:11 Pulse Ox 99 03/27/17 12:02 - Labs Result Diagrams: 03/27/17 09:00 03/27/17 09:00 Labs: Laboratory Results - last 24 hr 03/26/17 03/26/17 03/26/17 07:09 08:50 11:10 WBC RBC Hgb Hct MCV MCH MCHC RDW Plt Count MPV Gran % Lymph % (Auto) [place] % (Auto) Eos % (Auto) Baso % (Auto) Gran # Lymph # [place] # Eos # Baso # Sodium Potassium Chloride Carbon Dioxide Anion Gap BUN Creatinine Est GFR ( Amer) Est GFR (Non-Af Amer) POC Glucose (mg/dL) 218 H 143 H Random Glucose Hemoglobin A1c 7.2 H D Calcium Phosphorus Magnesium Iron TIBC % Saturation Total Bilirubin Direct Bilirubin AST ALT Alkaline Phosphatase Lactate Dehydrogenase Total Creatine Kinase CK-MB (CK-2) CK-MB (CK-2) % Total Protein Albumin Globulin Albumin/Globulin Ratio 0703/26/17 03/27/17 16:19 22:28 05:20 WBC 4.5 D RBC 3.02 L Hgb 7.9 L Hct 24.3 L MCV 80.5 MCH 26.2 MCHC 32.5 RDW 14.7 H Plt Count 140 MPV 11.4 H Gran % 55.4 Lymph % (Auto) 29.6 [place] % (Auto) 9.9 H Eos % (Auto) 4.0 Baso % (Auto) 1.1 Gran # 2.47 Lymph # 1.3 [place] # 0.4 Eos # 0.2 Baso # 0.05 Sodium Potassium Chloride Carbon Dioxide Anion Gap BUN Creatinine Est GFR ( Amer) Est GFR (Non-Af Amer) POC Glucose (mg/dL) 183 H 228 H Random Glucose Hemoglobin A1c Calcium Phosphorus Magnesium Iron TIBC % Saturation Total Bilirubin Direct Bilirubin AST ALT Alkaline Phosphatase Lactate Dehydrogenase Total Creatine Kinase CK-MB (CK-2) CK-MB (CK-2) % Total Protein Albumin Globulin Albumin/Globulin Ratio 03/27/17 03/27/17 03/27/17 05:20 09:00 09:00 WBC 4.7 RBC 3.40 L Hgb 8.7 L Hct 27.2 L MCV 80.0 MCH 25.6 MCHC 32.0 RDW 14.2 Plt Count 161 MPV 11.6 H Gran % 60.0 Lymph % (Auto) 27.6 [place] % (Auto) 7.6 H Eos % (Auto) 4.0 Baso % (Auto) 0.8 Gran # 2.84 Lymph # 1.3 [place] # 0.4 Eos # 0.2 Baso # 0.04 Sodium 128 L 135 Potassium 3.1 L 3.5 L Chloride 102 106 Carbon Dioxide 18 L 19 L Anion Gap 11 14 BUN 53 H 60 H Creatinine 6.3 H 6.9 H Est GFR ( Amer) 11 10 Est GFR (Non-Af Amer) 9 8 POC Glucose (mg/dL) Random Glucose 160 H 193 H Hemoglobin A1c Calcium 6.5 L* 7.2 L Phosphorus 5.1 H Magnesium 1.6 L Iron TIBC % Saturation Total Bilirubin 0.6 0.7 Direct Bilirubin 0.3 AST 16 ALT 19 Alkaline Phosphatase 65 Lactate Dehydrogenase 384 Total Creatine Kinase 422 H CK-MB (CK-2) 2.8 CK-MB (CK-2) % Cancelled Total Protein 5.1 L Albumin 2.6 L Globulin 2.5 Albumin/Globulin Ratio 1.0 L 03/27/17 09:00 WBC RBC Hgb Hct MCV MCH MCHC RDW Plt Count MPV Gran % Lymph % (Auto) [place] % (Auto) Eos % (Auto) Baso % (Auto) Gran # Lymph # [place] # Eos # Baso # Sodium Potassium Chloride Carbon Dioxide Anion Gap BUN Creatinine Est GFR ( Amer) Est GFR (Non-Af Amer) POC Glucose (mg/dL) Random Glucose Hemoglobin A1c Calcium Phosphorus Magnesium Iron 67 TIBC 198 L % Saturation 34 Total Bilirubin Direct Bilirubin AST ALT Alkaline Phosphatase Lactate Dehydrogenase Total Creatine Kinase CK-MB (CK-2) CK-MB (CK-2) % Total Protein Albumin Globulin Albumin/Globulin Ratio Assessment & Plan - Assessment and Plan (Free Text) Assessment: 56 yo M with PMHx uncontrolled diabetes and CKD. Consulted for AV fistula for dialysis. Plan: 1. Permacath as per IR. 2. Vein mapping 3. Plan AVF after vein mapping Will discuss with Dr. Zuñiga. John Paul Segura PGY2 <Tony Zuñiga - Last Filed: 03/27/17 17:18> Meds - Medications Medications: Current Medications Acetaminophen (Tylenol 325mg Tab) 650 mg PO Q6H PRN PRN Reason: Pain, moderate (4-7) Amlodipine Besylate (Norvasc) 5 mg PO DAILY [facility] Last Admin: 03/27/17 15:35 Dose: 5 mg Atorvastatin Calcium (Lipitor) 40 mg PO DAILY [facility] Last Admin: 03/27/17 09:12 Dose: 40 mg Clonidine HCl (Catapres) 0.3 mg PO TID [facility] Last Admin: 03/27/17 14:11 Dose: 0.3 mg Clopidogrel Bisulfate (Plavix) 75 mg PO DAILY [facility] Last Admin: 03/27/17 09:12 Dose: 75 mg Heparin Sodium (Porcine) (Heparin) 5,000 units SC Q12 [facility] PRN Reason: Protocol Last Admin: 03/27/17 09:11 Dose: 5,000 units Hydralazine HCl (Apresoline) 10 mg IVP Q4H PRN PRN Reason: Systolic Blood Pressure Last Admin: 03/26/17 22:47 Dose: 10 mg Hydralazine HCl (Apresoline) 20 mg IVP Q4H PRN PRN Reason: Systolic Blood Pressure Last Admin: 03/27/17 17:05 Dose: 10 mg Sodium Chloride (Sodium Chloride 0.45%) 1,000 mls @ 100 mls/hr IV .Q10H [facility] Last Admin: 03/27/17 08:24 Dose: Not Given Insulin Human Lispro (Humalog Med) 0 units SC ACHS [facility] PRN Reason: Protocol Last Admin: 03/27/17 14:10 Dose: 3 units Magnesium Oxide (Mag-Ox) 400 mg PO BID [facility] Stop: 03/30/17 12:31 Last Admin: 03/27/17 15:03 Dose: 400 mg Metoprolol Tartrate (Lopressor) 5 mg IVP Q6H [facility] Last Admin: 03/26/17 17:04 Dose: Not Given Ondansetron HCl (Zofran Inj) 4 mg IVP Q4H PRN PRN Reason: Nausea/Vomiting Last Admin: 03/25/17 23:48 Dose: 4 mg Pantoprazole Sodium (Protonix Inj) 40 mg IVP DAILY [facility] Last Admin: 03/27/17 09:11 Dose: 40 mg Results - Vital Signs Recent Vital Signs: Last Vital Signs Temp 97.5 F L 03/27/17 16:00 Pulse 53 L 03/27/17 17:05 Resp 11 L 03/27/17 16:20 BP 172/85 H 03/27/17 17:05 Pulse Ox 100 03/27/17 16:20 - Labs Result Diagrams: 03/27/17 09:00 03/27/17 09:00 Labs: Laboratory Results - last 24 hr 03/26/17 03/26/17 03/26/17 07:09 08:50 11:10 WBC RBC Hgb Hct MCV MCH MCHC RDW Plt Count MPV Gran % Lymph % (Auto) [place] % (Auto) Eos % (Auto) Baso % (Auto) Gran # Lymph # [place] # Eos # Baso # Sodium Potassium Chloride Carbon Dioxide Anion Gap BUN Creatinine Est GFR ( Amer) Est GFR (Non-Af Amer) POC Glucose (mg/dL) 218 H 143 H Random Glucose Hemoglobin A1c 7.2 H D Calcium Phosphorus Magnesium Iron TIBC % Saturation Total Bilirubin Direct Bilirubin AST ALT Alkaline Phosphatase Lactate Dehydrogenase Total Creatine Kinase CK-MB (CK-2) CK-MB (CK-2) % Total Protein Albumin Globulin Albumin/Globulin Ratio 25-OH Vitamin D Total Urine Color Urine Appearance Urine pH Ur Specific [place] Urine Protein Urine Glucose (UA) Urine Ketones Urine Blood Urine Nitrate Urine Bilirubin Urine Urobilinogen Ur Leukocyte Esterase Urine RBC Urine WBC Ur Random Creatinine Hep Bs Antigen 03/26/17 03/26/17 03/27/17 16:19 22:28 05:20 WBC 4.5 D RBC 3.02 L Hgb 7.9 L Hct 24.3 L MCV 80.5 MCH 26.2 MCHC 32.5 RDW 14.7 H Plt Count 140 MPV 11.4 H Gran % 55.4 Lymph % (Auto) 29.6 [place] % (Auto) 9.9 H Eos % (Auto) 4.0 Baso % (Auto) 1.1 Gran # 2.47 Lymph # 1.3 [place] # 0.4 Eos # 0.2 Baso # 0.05 Sodium Potassium Chloride Carbon Dioxide Anion Gap BUN Creatinine Est GFR ( Amer) Est GFR (Non-Af Amer) POC Glucose (mg/dL) 183 H 228 H Random Glucose Hemoglobin A1c Calcium Phosphorus Magnesium Iron TIBC % Saturation Total Bilirubin Direct Bilirubin AST ALT Alkaline Phosphatase Lactate Dehydrogenase Total Creatine Kinase CK-MB (CK-2) CK-MB (CK-2) % Total Protein Albumin Globulin Albumin/Globulin Ratio 25-OH Vitamin D Total Urine Color Urine Appearance Urine pH Ur Specific [place] Urine Protein Urine Glucose (UA) Urine Ketones Urine Blood Urine Nitrate Urine Bilirubin Urine Urobilinogen Ur Leukocyte Esterase Urine RBC Urine WBC Ur Random Creatinine Hep Bs Antigen 03/27/17 03/27/17 03/27/17 05:20 09:00 09:00 WBC 4.7 RBC 3.40 L Hgb 8.7 L Hct 27.2 L MCV 80.0 MCH 25.6 MCHC 32.0 RDW 14.2 Plt Count 161 MPV 11.6 H Gran % 60.0 Lymph % (Auto) 27.6 [place] % (Auto) 7.6 H Eos % (Auto) 4.0 Baso % (Auto) 0.8 Gran # 2.84 Lymph # 1.3 [place] # 0.4 Eos # 0.2 Baso # 0.04 Sodium 128 L 135 Potassium 3.1 L 3.5 L Chloride 102 106 Carbon Dioxide 18 L 19 L Anion Gap 11 14 BUN 53 H 60 H Creatinine 6.3 H 6.9 H Est GFR ( Amer) 11 10 Est GFR (Non-Af Amer) 9 8 POC Glucose (mg/dL) Random Glucose 160 H 193 H Hemoglobin A1c Calcium 6.5 L* 7.2 L Phosphorus 5.1 H Magnesium 1.6 L Iron TIBC % Saturation Total Bilirubin 0.6 0.7 Direct Bilirubin 0.3 AST 16 ALT 19 Alkaline Phosphatase 65 Lactate Dehydrogenase 384 Total Creatine Kinase 422 H CK-MB (CK-2) 2.8 CK-MB (CK-2) % Cancelled Total Protein 5.1 L Albumin 2.6 L Globulin 2.5 Albumin/Globulin Ratio 1.0 L 25-OH Vitamin D Total Urine Color Urine Appearance Urine pH Ur Specific [place] Urine Protein Urine Glucose (UA) Urine Ketones Urine Blood Urine Nitrate Urine Bilirubin Urine Urobilinogen Ur Leukocyte Esterase Urine RBC Urine WBC Ur Random Creatinine Hep Bs Antigen 03/27/17 03/27/17 03/27/17 09:00 09:00 15:20 WBC RBC Hgb Hct MCV MCH MCHC RDW Plt Count MPV Gran % Lymph % (Auto) [place] % (Auto) Eos % (Auto) Baso % (Auto) Gran # Lymph # [place] # Eos # Baso # Sodium Potassium Chloride Carbon Dioxide Anion Gap BUN Creatinine Est GFR ( Amer) Est GFR (Non-Af Amer) POC Glucose (mg/dL) Random Glucose Hemoglobin A1c Calcium Phosphorus Magnesium Iron 67 TIBC 198 L % Saturation 34 Total Bilirubin Direct Bilirubin AST ALT Alkaline Phosphatase Lactate Dehydrogenase Total Creatine Kinase CK-MB (CK-2) CK-MB (CK-2) % Total Protein Albumin Globulin Albumin/Globulin Ratio 25-OH Vitamin D Total < 12.8 L Urine Color Yellow Urine Appearance Sl cloudy Urine pH 7.0 Ur Specific [place] 1.025 Urine Protein >=300 H Urine Glucose (UA) 500 H Urine Ketones Negative Urine Blood Moderate H Urine Nitrate Negative Urine Bilirubin Negative Urine Urobilinogen 0.2 Ur Leukocyte Esterase Negative Urine RBC 2 - 5 Urine WBC Negative Ur Random Creatinine Hep Bs Antigen Negative 03/27/17 15:20 WBC RBC Hgb Hct MCV MCH MCHC RDW Plt Count MPV Gran % Lymph % (Auto) [place] % (Auto) Eos % (Auto) Baso % (Auto) Gran # Lymph # [place] # Eos # Baso # Sodium Potassium Chloride Carbon Dioxide Anion Gap BUN Creatinine Est GFR ( Amer) Est GFR (Non-Af Amer) POC Glucose (mg/dL) Random Glucose Hemoglobin A1c Calcium Phosphorus Magnesium Iron TIBC % Saturation Total Bilirubin Direct Bilirubin AST ALT Alkaline Phosphatase Lactate Dehydrogenase Total Creatine Kinase CK-MB (CK-2) CK-MB (CK-2) % Total Protein Albumin Globulin Albumin/Globulin Ratio 25-OH Vitamin D Total Urine Color Urine Appearance Urine pH Ur Specific [place] Urine Protein Urine Glucose (UA) Urine Ketones Urine Blood Urine Nitrate Urine Bilirubin Urine Urobilinogen Ur Leukocyte Esterase Urine RBC Urine WBC Ur Random Creatinine 80 Hep Bs Antigen Assessment & Plan - Assessment and Plan (Free Text) Plan: Patient seen and examined; chart reviewed. In brief, patient is a 56 year-old man with multiple severe co-morbidities which are poorly controlled. He has known severe PAD status post several DC's, status post CABG, status post right trans-metatarsal foot amputation. Patient is still in the ICU, but appears to be clinically improving. He has significant bruising both arms from venipuncures and IV placements. Patient is scheduled for dialysis catheter placement by IR tomorrow. Ultrasound vein mapping for his upper extremities is ordered. I will review vein mapping results, re-examine the patient and formulate a plan. I also recommend carotid ultrasound given patient's risk factors and medical history - as per his report he has a history of stroke in the past.
[2017-03-27] MEDS: Magnesium Oxide 400 mg Tab UD PO SCH ×2 (15:03→17:24)
[2017-03-27 15:59] LABS: URINE BILIRUBIN NEGATIVE (NEGATIVE); URINE BLOOD MODERATE (NEGATIVE); URINE GLUCOSE (UA) 500 mg/dL (NEGATIVE); URINE LEUKOCYTE ESTERASE NEGATIVE Leu/uL (NEGATIVE); URINE NITRATE NEGATIVE (NEGATIVE); URINE PROTEIN >=300 mg/dL (<30 mg/dL); URINE UROBILINOGEN 0.2 E.U./dL (<1 E.U./dL)
[2017-03-27 16:05] LABS: URINE COLOR YELLOW (YELLOW)
[2017-03-27 16:06] LABS: URINE APPEARANCE SL CLOUDY (CLEAR)
--- NOTE | 2017-03-27 16:19 | CP.PCM.PN ---
<Libia Foster - Last Filed: 03/27/17 16:27> Subjective - Date & Time of Evaluation Date of Evaluation: 03/27/17 Time of Evaluation: 09:00 - Subjective Subjective: Pt was seen and examined at bedside. Pt was found to be htn overnight, was administered hydralazine iv with good response. Pt denies any acute complaints at this time. Pt denied fever, chills, dizziness, sob, chest pains, abdominal pains, n/v/d/c. Pt is for permacath in AM for HD. Objective - Vital Signs/Intake and Output Vital Signs (last 24 hours): Temp Pulse Resp BP Pulse Ox 97.5 F L 51 L 26 H 146/78 99 03/27/17 12:00 03/27/17 15:35 03/27/17 15:20 03/27/17 15:35 03/27/17 15:20 Intake and Output: 03/27/17 03/27/17 06:59 18:59 Intake Total 1777 Output Total 900 Balance 877 - Medications Medications: Current Medications Acetaminophen (Tylenol 325mg Tab) 650 mg PO Q6H PRN PRN Reason: Pain, moderate (4-7) Amlodipine Besylate (Norvasc) 5 mg PO DAILY [facility] Last Admin: 03/27/17 15:35 Dose: 5 mg Atorvastatin Calcium (Lipitor) 40 mg PO DAILY [facility] Last Admin: 03/27/17 09:12 Dose: 40 mg Clonidine HCl (Catapres) 0.3 mg PO TID [facility] Last Admin: 03/27/17 14:11 Dose: 0.3 mg Clopidogrel Bisulfate (Plavix) 75 mg PO DAILY [facility] Last Admin: 03/27/17 09:12 Dose: 75 mg Heparin Sodium (Porcine) (Heparin) 5,000 units SC Q12 [facility] PRN Reason: Protocol Last Admin: 03/27/17 09:11 Dose: 5,000 units Hydralazine HCl (Apresoline) 10 mg IVP Q4H PRN PRN Reason: Systolic Blood Pressure Last Admin: 03/26/17 22:47 Dose: 10 mg Hydralazine HCl (Apresoline) 20 mg IVP Q4H PRN PRN Reason: Systolic Blood Pressure Last Admin: 03/27/17 11:02 Dose: 10 mg Sodium Chloride (Sodium Chloride 0.45%) 1,000 mls @ 100 mls/hr IV .Q10H [facility] Last Admin: 03/27/17 08:24 Dose: Not Given Insulin Human Lispro (Humalog Med) 0 units SC ACHS [facility] PRN Reason: Protocol Last Admin: 03/27/17 14:10 Dose: 3 units Magnesium Oxide (Mag-Ox) 400 mg PO BID [facility] Stop: 03/30/17 12:31 Last Admin: 03/27/17 15:03 Dose: 400 mg Metoprolol Tartrate (Lopressor) 5 mg IVP Q6H [facility] Last Admin: 03/26/17 17:04 Dose: Not Given Ondansetron HCl (Zofran Inj) 4 mg IVP Q4H PRN PRN Reason: Nausea/Vomiting Last Admin: 03/25/17 23:48 Dose: 4 mg Pantoprazole Sodium (Protonix Inj) 40 mg IVP DAILY [facility] Last Admin: 03/27/17 09:11 Dose: 40 mg - Labs Labs: 03/27/17 09:00 03/27/17 09:00 PT 11.4 Seconds (9.9-11.8) 03/25/17 12:55 INR 1.06 (0.93-1.08) 03/25/17 12:55 APTT 80.5 Seconds (23.7-30.8) H* 03/26/17 05:00 - Constitutional Appears: No Acute Distress - Head Exam Head Exam: ATRAUMATIC, NORMAL INSPECTION, NORMOCEPHALIC - Eye Exam Eye Exam: EOMI, Normal appearance, PERRL Pupil Exam: NORMAL ACCOMODATION, PERRL - ENT Exam ENT Exam: Mucous Membranes Moist, Normal Exam - Neck Exam Neck Exam: Full ROM, Normal Inspection. absent: Lymphadenopathy - Respiratory Exam Respiratory Exam: Clear to Ausculation Bilateral, NORMAL BREATHING PATTERN - Cardiovascular Exam Cardiovascular Exam: REGULAR RHYTHM, +S1, +S2. absent: Murmur - GI/Abdominal Exam GI & Abdominal Exam: Soft, Normal Bowel Sounds. absent: Tenderness - Extremities Exam Extremities Exam: Full ROM, Normal Capillary Refill, Normal Inspection. absent : Joint Swelling, Pedal Edema - Neurological Exam Neurological Exam: Alert, Awake, CN II-XII Intact, Oriented x3 - Psychiatric Exam Psychiatric exam: Normal Affect, Normal Mood - Skin Skin Exam: Dry, Intact, Normal Color, Warm Assessment and Plan - Assessment and Plan (Free Text) Assessment: 56 m with PMHx of DM, CAD, HTN, VA x 3, neuropathy, s/p right foot amputation of all toes, HTN, CKD presents with HTN emergency with KITA on CKD, AMS and elevated trops. Pt continues to have episodes of HTN with SBP in the 190s. Nitro drip d/c, norvasc added. Pt for permacath by IR in AM tomorrow. Pt to be dialyzed tomorrow as per Nephro. Neuro - stable - AAOx3 - Head CT showed no acute findings CVS - HTN emergency most likely 2/2 non compliance - BP improved however continues to be elevated - Norvasc 5mg will titrate up as needed - will increase clonidine to 0.3 TID - Echocardiogram pending - Previous Echo from 03/2016 showed asymmetric septal hypertrophy with EF of 50% - cont dual antiplatelets, asa, plavix - Maintain MAP >65 - cardiology consulted, Dr. Matthews following, Echo pending pulm - saturated well on RA - supplemental O2 to maintain SpO2>90 - cont to monitor GI - heart health diet - cont protonix for GI ppx - CT Abd/pelv negative for acute pathology renal - KITA on CKD - Monitor urine output 1500 cc overnight, maintain goal of 0.5 cc/kg/hr - creatinine. LDH, Hapto to rule out MAHA. - strict I&O - nephro consulted, Dr. Garrett following, recommended renal replacement therapy. HD tomorrow after permacath placement by IR Dr. Cortés, will add angelica/arb at that time endo - h/o DM - iss - maintain blood sugar between 140- 180 hem/onc - Hgb and platelets decreased most likely due to dilution - will cont to monitor -LDH, Hapto to rule out MAHA. ID - afebrile without leukocytosis GI ppx- protonix DVT ppx- heparin Seen Reviewed and discussed with attending <Wood ZEPEDA,Jalil H - Last Filed: 03/27/17 17:08> Objective - Vital Signs/Intake and Output Vital Signs (last 24 hours): Temp Pulse Resp BP Pulse Ox 97.5 F L 53 L 11 L 160/76 H 100 03/27/17 16:00 03/27/17 16:20 03/27/17 16:20 03/27/17 16:18 03/27/17 16:20 Intake and Output: 03/27/17 03/27/17 06:59 18:59 Intake Total 1777 Output Total 900 Balance 877 - Medications Medications: Current Medications Acetaminophen (Tylenol 325mg Tab) 650 mg PO Q6H PRN PRN Reason: Pain, moderate (4-7) Amlodipine Besylate (Norvasc) 5 mg PO DAILY [facility] Last Admin: 03/27/17 15:35 Dose: 5 mg Atorvastatin Calcium (Lipitor) 40 mg PO DAILY [facility] Last Admin: 03/27/17 09:12 Dose: 40 mg Clonidine HCl (Catapres) 0.3 mg PO TID [facility] Last Admin: 03/27/17 14:11 Dose: 0.3 mg Clopidogrel Bisulfate (Plavix) 75 mg PO DAILY [facility] Last Admin: 03/27/17 09:12 Dose: 75 mg Heparin Sodium (Porcine) (Heparin) 5,000 units SC Q12 [facility] PRN Reason: Protocol Last Admin: 03/27/17 09:11 Dose: 5,000 units Hydralazine HCl (Apresoline) 10 mg IVP Q4H PRN PRN Reason: Systolic Blood Pressure Last Admin: 03/26/17 22:47 Dose: 10 mg Hydralazine HCl (Apresoline) 20 mg IVP Q4H PRN PRN Reason: Systolic Blood Pressure Last Admin: 03/27/17 11:02 Dose: 10 mg Sodium Chloride (Sodium Chloride 0.45%) 1,000 mls @ 100 mls/hr IV .Q10H [facility] Last Admin: 03/27/17 08:24 Dose: Not Given Insulin Human Lispro (Humalog Med) 0 units SC ACHS [facility] PRN Reason: Protocol Last Admin: 03/27/17 14:10 Dose: 3 units Magnesium Oxide (Mag-Ox) 400 mg PO BID [facility] Stop: 03/30/17 12:31 Last Admin: 03/27/17 15:03 Dose: 400 mg Metoprolol Tartrate (Lopressor) 5 mg IVP Q6H [facility] Last Admin: 03/26/17 17:04 Dose: Not Given Ondansetron HCl (Zofran Inj) 4 mg IVP Q4H PRN PRN Reason: Nausea/Vomiting Last Admin: 03/25/17 23:48 Dose: 4 mg Pantoprazole Sodium (Protonix Inj) 40 mg IVP DAILY [facility] Last Admin: 03/27/17 09:11 Dose: 40 mg - Labs Labs: 03/27/17 09:00 03/27/17 09:00 PT 11.4 Seconds (9.9-11.8) 03/25/17 12:55 INR 1.06 (0.93-1.08) 03/25/17 12:55 APTT 80.5 Seconds (23.7-30.8) H* 03/26/17 05:00 Attending/Attestation - Attestation I have personally seen and examined this patient.: Yes I have fully participated in the care of the patient.: Yes I have reviewed all pertinent clinical information, including history, physical exam and plan: Yes Notes (Text): 03/27/17 17:03 56 y/o M HTn Emergency w/ KITA Currently being weaned off Nitro-G and P.O anti htn medications to be added. Amlodipine + Hydralazine acei w/ B blockers as tolerated KITA on CKD, Plan for likely HD . Could use Lasix if urine output is an issue prior to HD staring. DM on RISS to keep bs 140-180. CAD hx . Would need to evaluate after ECHO done to decide on further medications in case of any new findings. PT/OT DVT P cc time 55 min
[2017-03-27 16:23] LABS: URINE WBC NEGATIVE /hpf (0-6)
[2017-03-27 17:05] LABS: HEPATITIS B SURFACE AG NEGATIVE (NEGATIVE)
[2017-03-27 17:08] LABS: FERRITIN 67.2 ng/mL
[2017-03-27 17:10] LABS: HEPATITIS B CORE AB NEGATIVE (NEGATIVE)
[2017-03-27 17:23] LABS: HEPATITIS C ANTIBODY NEGATIVE (NEGATIVE)
[2017-03-27 17:36] LABS: FOLATE 4.5 ng/mL
--- NOTE | 2017-03-27 18:11 | CP.PCM.PN ---
<JuanKayleigh - Last Filed: 03/27/17 18:53> Subjective - Date & Time of Evaluation Date of Evaluation: 03/27/17 Time of Evaluation: 07:40 - Subjective Subjective: Patient seen and examined at bedside. Patient is alert and oriented x3. Nurse reports nitroglycerin drip d/c overnight. Patient is tolerating oral antihypertensives. Patient is keen on starting hemodialysis for his KITA on chronic kidney disease. Objective - Vital Signs/Intake and Output Vital Signs (last 24 hours): Temp Pulse Resp BP Pulse Ox 97.5 F L 51 L 18 150/75 99 03/27/17 16:00 03/27/17 17:24 03/27/17 17:10 03/27/17 17:24 03/27/17 17:10 Intake and Output: 03/27/17 03/27/17 06:59 18:59 Intake Total 1777 Output Total 900 Balance 877 - Medications Medications: Current Medications Acetaminophen (Tylenol 325mg Tab) 650 mg PO Q6H PRN PRN Reason: Pain, moderate (4-7) Amlodipine Besylate (Norvasc) 5 mg PO DAILY [facility] Last Admin: 03/27/17 15:35 Dose: 5 mg Atorvastatin Calcium (Lipitor) 40 mg PO DAILY [facility] Last Admin: 03/27/17 09:12 Dose: 40 mg Clonidine HCl (Catapres) 0.3 mg PO TID [facility] Last Admin: 03/27/17 17:24 Dose: 0.3 mg Clopidogrel Bisulfate (Plavix) 75 mg PO DAILY [facility] Last Admin: 03/27/17 09:12 Dose: 75 mg Heparin Sodium (Porcine) (Heparin) 5,000 units SC Q12 [facility] PRN Reason: Protocol Last Admin: 03/27/17 09:11 Dose: 5,000 units Hydralazine HCl (Apresoline) 10 mg IVP Q4H PRN PRN Reason: Systolic Blood Pressure Last Admin: 03/26/17 22:47 Dose: 10 mg Hydralazine HCl (Apresoline) 20 mg IVP Q4H PRN PRN Reason: Systolic Blood Pressure Last Admin: 03/27/17 17:05 Dose: 10 mg Sodium Chloride (Sodium Chloride 0.45%) 1,000 mls @ 100 mls/hr IV .Q10H [facility] Last Admin: 03/27/17 08:24 Dose: Not Given Insulin Human Lispro (Humalog Med) 0 units SC ACHS [facility] PRN Reason: Protocol Last Admin: 03/27/17 17:25 Dose: 1 units Magnesium Oxide (Mag-Ox) 400 mg PO BID [facility] Stop: 03/30/17 12:31 Last Admin: 03/27/17 17:24 Dose: 400 mg Metoprolol Tartrate (Lopressor) 5 mg IVP Q6H [facility] Last Admin: 03/26/17 17:04 Dose: Not Given Ondansetron HCl (Zofran Inj) 4 mg IVP Q4H PRN PRN Reason: Nausea/Vomiting Last Admin: 03/25/17 23:48 Dose: 4 mg Pantoprazole Sodium (Protonix Inj) 40 mg IVP DAILY [facility] Last Admin: 03/27/17 09:11 Dose: 40 mg - Labs Labs: 03/27/17 09:00 03/27/17 09:00 PT 11.4 Seconds (9.9-11.8) 03/25/17 12:55 INR 1.06 (0.93-1.08) 03/25/17 12:55 APTT 80.5 Seconds (23.7-30.8) H* 03/26/17 05:00 - Constitutional Appears: Well, No Acute Distress - Head Exam Head Exam: ATRAUMATIC, NORMOCEPHALIC - Eye Exam Eye Exam: EOMI, Normal appearance - ENT Exam ENT Exam: Mucous Membranes Moist - Neck Exam Neck Exam: Normal Inspection. absent: Lymphadenopathy, Meningismus - Respiratory Exam Respiratory Exam: Clear to Ausculation Bilateral. absent: Rales, Wheezes - Cardiovascular Exam Cardiovascular Exam: REGULAR RHYTHM, +S1, +S2 - GI/Abdominal Exam GI & Abdominal Exam: Soft, Normal Bowel Sounds. absent: Rebound - Rectal Exam Rectal Exam: Deferred - Neurological Exam Neurological Exam: Alert, Awake, Oriented x3 - Psychiatric Exam Psychiatric exam: Normal Affect, Normal Mood Assessment and Plan - Assessment and Plan (Free Text) Assessment: This is a 56Y M with PMH CAD, HTN, CABG, IDDM, OR x 3, CVA, AMS, peripheral neuropathy, falls admitted for hypertensive emergency with acute renal failure with AMS secondary to uremia, rhabdomyolysis and diarrhea. Patient also noted to have elevated troponin secondary to renal failure. Of note, patient has had a similar episode in March 2016. Plan: Plan: 1. Hypertensive Emergency: - Patient has transition to PO antihypertensives, goal is to decrease MAP by 20- 25% each day. - Hydralazine 10 mg PRN for SBP > 180 and/or DPB > 110 - Clonidine 0.3 TID added per ICU - Cardio consulted- recs appreciated 2. Elevated troponin - Secondary to acute renal failure - Troponin neg x 3, EKG showed NSR - Echo performed, interpretation/read pending (Previous echo showed EF 50% in Mar 2016) - Continue Plavix, Lipitor (Home med) for CAD - Cardio consulted-recs appreciated 3. Acute renal failure - Cr 7.1 (was 7.7 yesterday), still elevated at 6.9, BUN still above 50. - Patient is agreeable to HD, perma-cath is to be placed by IR. 4. AMS - Patient is less altered. - Possibly Secondary to Uremia from KITA - Pt also known history of CVA in past - Neuro consulted - Head CT showed chronic lacunar infarcts - Neuro checks - Continue re-orientation 4. Rhabdomyolysis - patient has opted for HD, Dr. Garrett is following. - Will monitor CK daily 5. Diarrhea - afebrile, no leukocytosis - CT abd/pelvis showed possible enteritis - Pt has had C.diff in past - C. diff and stool studies - Zofran prn nausea - Procal is low 6. DM - HgbA1c 7.2 - ISS humalog, maitain blood sugars of 140-180 - BGM- maintain euglycemia 7. R/O Microangiopathic Hemolytic Anemia - Serum LDH normal GI ppx: Protonix DVT ppx: Heparin SC Dispo: Plan is to control BP and monitor mental status. <Jennifer Ritter - Last Filed: 03/28/17 09:21> Objective - Vital Signs/Intake and Output Vital Signs (last 24 hours): Temp Pulse Resp BP Pulse Ox 98.1 F 52 L 16 160/71 H 98 03/28/17 04:00 03/28/17 06:30 03/28/17 06:30 03/28/17 06:17 03/28/17 06:30 Intake and Output: 03/28/17 03/28/17 06:59 18:59 Intake Total 1550 Output Total 835 Balance 715 - Medications Medications: Current Medications Acetaminophen (Tylenol 325mg Tab) 650 mg PO Q6H PRN PRN Reason: Pain, moderate (4-7) Last Admin: 03/27/17 23:09 Dose: 650 mg Amlodipine Besylate (Norvasc) 5 mg PO DAILY [facility] Last Admin: 03/27/17 15:35 Dose: 5 mg Atorvastatin Calcium (Lipitor) 40 mg PO DAILY [facility] Last Admin: 03/27/17 09:12 Dose: 40 mg Clonidine HCl (Catapres) 0.3 mg PO TID [facility] Last Admin: 03/27/17 17:24 Dose: 0.3 mg Clopidogrel Bisulfate (Plavix) 75 mg PO DAILY [facility] Last Admin: 03/27/17 09:12 Dose: 75 mg Heparin Sodium (Porcine) (Heparin) 5,000 units SC Q12 [facility] PRN Reason: Protocol Last Admin: 03/27/17 22:59 Dose: 5,000 units Hydralazine HCl (Apresoline) 25 mg PO TID [facility] Last Admin: 03/28/17 04:12 Dose: 25 mg Sodium Chloride (Sodium Chloride 0.45%) 1,000 mls @ 100 mls/hr IV .Q10H [facility] Last Admin: 03/28/17 04:29 Dose: 100 mls/hr Insulin Human Lispro (Humalog Med) 0 units SC ACHS [facility] PRN Reason: Protocol Last Admin: 03/28/17 08:27 Dose: Not Given Magnesium Oxide (Mag-Ox) 400 mg PO BID [facility] Stop: 03/30/17 12:31 Last Admin: 03/27/17 17:24 Dose: 400 mg Metoprolol Tartrate (Lopressor) 5 mg IVP Q6H [facility] Last Admin: 03/26/17 17:04 Dose: Not Given Ondansetron HCl (Zofran Inj) 4 mg IVP Q4H PRN PRN Reason: Nausea/Vomiting Last Admin: 03/25/17 23:48 Dose: 4 mg Pantoprazole Sodium (Protonix Ec Tab) 40 mg PO 0600 [facility] Last Admin: 03/28/17 05:47 Dose: 40 mg - Labs Labs: 03/28/17 05:30 03/28/17 05:30 PT 11.4 Seconds (9.9-11.8) 03/25/17 12:55 INR 1.06 (0.93-1.08) 03/25/17 12:55 APTT 80.5 Seconds (23.7-30.8) H* 03/26/17 05:00 Attending/Attestation - Attestation I have personally seen and examined this patient.: Yes I have fully participated in the care of the patient.: Yes I have reviewed all pertinent clinical information, including history, physical exam and plan: Yes Notes (Text): 03/27/17 56 year old male with past medical history of CAD s/p CABG, hypertension, diabetes and CVA who presented with altered mental status. He was found to have acute on chronic renal failure and rhabdomyolysis. He was also noted to have mildly elevated troponins in setting of renal failure. CT head showed chronic lacunar infarcts. Patient's mental status and blood pressure have improved since admission. He is currently on clonidine and hydralazine prn. Cardiology and nephrology are following the patient. He is on plavix and statin. Echocardiogram was done with pending read. Case was discussed with nephrology today who spoke with patient regarding dialysis. He also requested for IR/vascular evaluation for permacath and AVF. Jennifer Ritter MD Hospitalist.
--- NOTE | 2017-03-27 19:29 | CP.PCM.PN ---
<Arnav Nation - Last Filed: 03/27/17 19:26> Subjective - Date & Time of Evaluation Date of Evaluation: 03/27/17 Time of Evaluation: 19:26 - Subjective Subjective: Neurology Progress Note Pt seen and examined at bedside. Pt is accompanied by his friend at bedside. Pt states she feels much better today. Denies CP, SOB, N/V/D, dizziness, headache. Objective - Vital Signs/Intake and Output Vital Signs (last 24 hours): Temp Pulse Resp BP Pulse Ox 97.5 F L 52 L 25 H 176/83 H 98 03/27/17 16:00 03/27/17 19:05 03/27/17 18:33 03/27/17 19:05 03/27/17 18:40 Intake and Output: 03/27/17 03/28/17 18:59 06:59 Intake Total 2050 Output Total 1700 Balance 350 - Medications Medications: Current Medications Acetaminophen (Tylenol 325mg Tab) 650 mg PO Q6H PRN PRN Reason: Pain, moderate (4-7) Amlodipine Besylate (Norvasc) 5 mg PO DAILY [facility] Last Admin: 03/27/17 15:35 Dose: 5 mg Atorvastatin Calcium (Lipitor) 40 mg PO DAILY [facility] Last Admin: 03/27/17 09:12 Dose: 40 mg Clonidine HCl (Catapres) 0.3 mg PO TID [facility] Last Admin: 03/27/17 17:24 Dose: 0.3 mg Clopidogrel Bisulfate (Plavix) 75 mg PO DAILY [facility] Last Admin: 03/27/17 09:12 Dose: 75 mg Heparin Sodium (Porcine) (Heparin) 5,000 units SC Q12 [facility] PRN Reason: Protocol Last Admin: 03/27/17 09:11 Dose: 5,000 units Hydralazine HCl (Apresoline) 10 mg IVP Q4H PRN PRN Reason: Systolic Blood Pressure Last Admin: 03/27/17 19:05 Dose: 10 mg Hydralazine HCl (Apresoline) 20 mg IVP Q4H PRN PRN Reason: Systolic Blood Pressure Last Admin: 03/27/17 17:05 Dose: 10 mg Sodium Chloride (Sodium Chloride 0.45%) 1,000 mls @ 100 mls/hr IV .Q10H [facility] Last Admin: 03/27/17 08:24 Dose: Not Given Insulin Human Lispro (Humalog Med) 0 units SC ACHS [facility] PRN Reason: Protocol Last Admin: 03/27/17 17:25 Dose: 1 units Magnesium Oxide (Mag-Ox) 400 mg PO BID [facility] Stop: 03/30/17 12:31 Last Admin: 03/27/17 17:24 Dose: 400 mg Metoprolol Tartrate (Lopressor) 5 mg IVP Q6H [facility] Last Admin: 03/26/17 17:04 Dose: Not Given Ondansetron HCl (Zofran Inj) 4 mg IVP Q4H PRN PRN Reason: Nausea/Vomiting Last Admin: 03/25/17 23:48 Dose: 4 mg Pantoprazole Sodium (Protonix Inj) 40 mg IVP DAILY [facility] Last Admin: 03/27/17 09:11 Dose: 40 mg - Labs Labs: 03/27/17 09:00 03/27/17 09:00 PT 11.4 Seconds (9.9-11.8) 03/25/17 12:55 INR 1.06 (0.93-1.08) 03/25/17 12:55 APTT 80.5 Seconds (23.7-30.8) H* 03/26/17 05:00 - Constitutional Appears: Well, No Acute Distress - Head Exam Head Exam: ATRAUMATIC, NORMAL INSPECTION, NORMOCEPHALIC - Respiratory Exam Respiratory Exam: Clear to Ausculation Bilateral, NORMAL BREATHING PATTERN. absent: Rhonchi, Wheezes - Cardiovascular Exam Cardiovascular Exam: RRR, +S1, +S2 - GI/Abdominal Exam GI & Abdominal Exam: Soft, Normal Bowel Sounds. absent: Tenderness - Extremities Exam Extremities Exam: absent: Calf Tenderness, Pedal Edema - Neurological Exam Neurological Exam: Alert, Awake, CN II-XII Intact, Oriented x3 - Psychiatric Exam Psychiatric exam: Normal Affect, Normal Mood - Skin Skin Exam: Intact, Normal Color, Warm Assessment and Plan - Assessment and Plan (Free Text) Plan: 58 y/o M with PMH of CAD s/p stent placement, MA, CABG, HLD, DM, peripheral neuropathy, and recent lacunar infarction presented with AMS secondary to metabolic encephaloathy and hypertensive emergency. Pt was recently found to have infarction of right head of the caudate, left posterior parietoocipitalregion and posterior medial aspect of the left billy and also found to have elevated blood pressures secondary to noncompliance causing altered mental status. - Maintain SBP between 130-140 - Stroke prevention with Plavix and Lipitor - Continue to monitor electrolytes - Continue to medical management as per ICU team [facility] PGY-2 <Nikos Keith - Last Filed: 03/28/17 10:04> Objective - Vital Signs/Intake and Output Vital Signs (last 24 hours): Temp Pulse Resp BP Pulse Ox 98.2 F 50 L 27 H 159/77 H 98 03/28/17 08:00 03/28/17 09:30 03/28/17 09:30 03/28/17 09:17 03/28/17 09:30 Intake and Output: 03/28/17 03/28/17 06:59 18:59 Intake Total 1550 Output Total 835 Balance 715 - Medications Medications: Current Medications Acetaminophen (Tylenol 325mg Tab) 650 mg PO Q6H PRN PRN Reason: Pain, moderate (4-7) Last Admin: 03/27/17 23:09 Dose: 650 mg Amlodipine Besylate (Norvasc) 5 mg PO DAILY [facility] Last Admin: 03/27/17 15:35 Dose: 5 mg Atorvastatin Calcium (Lipitor) 40 mg PO DAILY [facility] Last Admin: 03/27/17 09:12 Dose: 40 mg Clonidine HCl (Catapres) 0.3 mg PO TID [facility] Last Admin: 03/27/17 17:24 Dose: 0.3 mg Clopidogrel Bisulfate (Plavix) 75 mg PO DAILY [facility] Last Admin: 03/27/17 09:12 Dose: 75 mg Heparin Sodium (Porcine) (Heparin) 5,000 units SC Q12 [facility] PRN Reason: Protocol Last Admin: 03/27/17 22:59 Dose: 5,000 units Hydralazine HCl (Apresoline) 25 mg PO TID [facility] Last Admin: 03/28/17 04:12 Dose: 25 mg Sodium Chloride (Sodium Chloride 0.45%) 1,000 mls @ 100 mls/hr IV .Q10H [facility] Last Admin: 03/28/17 04:29 Dose: 100 mls/hr Insulin Human Lispro (Humalog Med) 0 units SC ACHS [facility] PRN Reason: Protocol Last Admin: 03/28/17 08:27 Dose: Not Given Magnesium Oxide (Mag-Ox) 400 mg PO BID [facility] Stop: 03/30/17 12:31 Last Admin: 03/27/17 17:24 Dose: 400 mg Metoprolol Tartrate (Lopressor) 5 mg IVP Q6H [facility] Last Admin: 03/26/17 17:04 Dose: Not Given Ondansetron HCl (Zofran Inj) 4 mg IVP Q4H PRN PRN Reason: Nausea/Vomiting Last Admin: 03/25/17 23:48 Dose: 4 mg Pantoprazole Sodium (Protonix Ec Tab) 40 mg PO 0600 [facility] Last Admin: 03/28/17 05:47 Dose: 40 mg - Labs Labs: 03/28/17 05:30 03/28/17 05:30 PT 11.4 Seconds (9.9-11.8) 03/25/17 12:55 INR 1.06 (0.93-1.08) 03/25/17 12:55 APTT 80.5 Seconds (23.7-30.8) H* 03/26/17 05:00 Attending/Attestation - Attestation I have personally seen and examined this patient.: Yes I have fully participated in the care of the patient.: Yes I have reviewed all pertinent clinical information, including history, physical exam and plan: Yes
[2017-03-28] MEDS: Sodium Chloride 0.45% 1,000 ML IV SCH (04:29)
[2017-03-28] MEDS: Pantoprazole 40 mg EC Tab PO SCH (05:47)
[2017-03-28 06:38] LABS: BASO # 0.05 K/mm3 (0.0-2.0); BASO % 1.1 % (0.0-3.0); EOS # 0.2 (0.0-0.7); EOS % 4.1 % (1.5-5.0); GRAN # 2.94 (1.4-6.5); GRAN % 63.2 % (50.0-68.0); HEMOGLOBIN 9.1 gm/dL (14.0-18.0); LYMPH # 1.1 (1.2-3.4); LYMPH % 24.5 % (22.0-35.0); MEAN CORPUSCULAR HEMOGLOBIN 25.5 pg (25.0-35.0); MEAN CORPUSCULAR HGB CONC 32.3 g/dl (31.0-37.0); MEAN PLATELET VOLUME 11.4 fl (7.0-11.0); MONO # 0.3 (0.1-0.6); MONO % 7.1 % (1.0-6.0); PLATELET COUNT 149 10^3/uL (120.0-450.0); RBC 3.57 10^6/uL (3.5-6.1); RED CELL DISTRIBUTION WIDTH 14.4 % (11.5-14.5); WHITE BLOOD COUNT 4.7 10^3/ul (4.5-11.0)
[2017-03-28] MEDS ORDERED: Lidocaine 2% Inj (20ml) ONE (07:11)
[2017-03-28] MEDS ORDERED: Midazolam 2 MG/2 ML VIAL ONE (07:57)
[2017-03-28 08:00] LABS: CALCIUM 7.1 mg/dL (8.4-10.5)
[2017-03-28] MEDS: Insulin Lispro (humaLOG) MEDIUM Coverage SC SCH ×5 (08:27→21:44)
--- NOTE | 2017-03-28 09:02 | CP.PCM.PN ---
<EvelynHarsha Bernadette - Last Filed: 03/28/17 09:02> Subjective - Date & Time of Evaluation Date of Evaluation: 03/28/17 Time of Evaluation: 09:01 - Subjective Subjective: Vasc Sx: Dr Zuñiga Pt currently off having perma-cath placed for dialysis. Plan for AVF moving forward but pending vein mapping. PT also has carotid duplex ordered. NAEO Objective - Vital Signs/Intake and Output Vital Signs (last 24 hours): Temp Pulse Resp BP Pulse Ox 98.1 F 52 L 16 160/71 H 98 03/28/17 04:00 03/28/17 06:30 03/28/17 06:30 03/28/17 06:17 03/28/17 06:30 Intake and Output: 03/28/17 03/28/17 06:59 18:59 Intake Total 1550 Output Total 835 Balance 715 - Medications Medications: Current Medications Acetaminophen (Tylenol 325mg Tab) 650 mg PO Q6H PRN PRN Reason: Pain, moderate (4-7) Last Admin: 03/27/17 23:09 Dose: 650 mg Amlodipine Besylate (Norvasc) 5 mg PO DAILY [facility] Last Admin: 03/27/17 15:35 Dose: 5 mg Atorvastatin Calcium (Lipitor) 40 mg PO DAILY [facility] Last Admin: 03/27/17 09:12 Dose: 40 mg Clonidine HCl (Catapres) 0.3 mg PO TID [facility] Last Admin: 03/27/17 17:24 Dose: 0.3 mg Clopidogrel Bisulfate (Plavix) 75 mg PO DAILY [facility] Last Admin: 03/27/17 09:12 Dose: 75 mg Heparin Sodium (Porcine) (Heparin) 5,000 units SC Q12 [facility] PRN Reason: Protocol Last Admin: 03/27/17 22:59 Dose: 5,000 units Hydralazine HCl (Apresoline) 25 mg PO TID [facility] Last Admin: 03/28/17 04:12 Dose: 25 mg Sodium Chloride (Sodium Chloride 0.45%) 1,000 mls @ 100 mls/hr IV .Q10H [facility] Last Admin: 03/28/17 04:29 Dose: 100 mls/hr Insulin Human Lispro (Humalog Med) 0 units SC ACHS [facility] PRN Reason: Protocol Last Admin: 03/28/17 08:27 Dose: Not Given Magnesium Oxide (Mag-Ox) 400 mg PO BID [facility] Stop: 03/30/17 12:31 Last Admin: 03/27/17 17:24 Dose: 400 mg Metoprolol Tartrate (Lopressor) 5 mg IVP Q6H [facility] Last Admin: 03/26/17 17:04 Dose: Not Given Ondansetron HCl (Zofran Inj) 4 mg IVP Q4H PRN PRN Reason: Nausea/Vomiting Last Admin: 03/25/17 23:48 Dose: 4 mg Pantoprazole Sodium (Protonix Ec Tab) 40 mg PO 0600 [facility] Last Admin: 03/28/17 05:47 Dose: 40 mg - Labs Labs: 03/28/17 05:30 03/28/17 05:30 PT 11.4 Seconds (9.9-11.8) 03/25/17 12:55 INR 1.06 (0.93-1.08) 03/25/17 12:55 APTT 80.5 Seconds (23.7-30.8) H* 03/26/17 05:00 Assessment and Plan - Assessment and Plan (Free Text) Assessment: 56M with multiple comorbidities and need for dialysis access Plan: AVF pending vein mapping carotid duplex given history and comorbidities further recs to follow will d/w Dr Zara Rivas, PGY3 <Tony Zuñiga - Last Filed: 03/28/17 17:47> Objective - Vital Signs/Intake and Output Vital Signs (last 24 hours): Temp Pulse Resp BP Pulse Ox 98.4 F 53 L 21 174/84 H 96 03/28/17 12:00 03/28/17 17:16 03/28/17 17:12 03/28/17 17:16 03/28/17 17:12 Intake and Output: 03/28/17 03/28/17 06:59 18:59 Intake Total 1550 Output Total 835 Balance 715 - Medications Medications: Current Medications Acetaminophen (Tylenol 325mg Tab) 650 mg PO Q6H PRN PRN Reason: Pain, moderate (4-7) Last Admin: 03/27/17 23:09 Dose: 650 mg Amlodipine Besylate (Norvasc) 5 mg PO DAILY [facility] Last Admin: 03/28/17 14:34 Dose: 5 mg Atorvastatin Calcium (Lipitor) 40 mg PO DAILY [facility] Last Admin: 03/28/17 14:30 Dose: 40 mg Clonidine HCl (Catapres) 0.3 mg PO TID [facility] Last Admin: 03/28/17 17:16 Dose: 0.3 mg Clopidogrel Bisulfate (Plavix) 75 mg PO DAILY [facility] Last Admin: 03/28/17 14:29 Dose: 75 mg Cyanocobalamin (Vitamin B12 1000 Mcg Tab) 1,000 mcg PO DAILY [facility] Last Admin: 03/28/17 14:32 Dose: 1,000 mcg Ergocalciferol (Drisdol 50,000 Intl Units Cap) 1 cap PO Q7D [facility] Stop: 05/16/17 11:46 Last Admin: 03/28/17 14:27 Dose: 1 cap Gabapentin (Neurontin) 300 mg PO TID [facility] PRN Reason: Protocol Heparin Sodium (Porcine) (Heparin) 5,000 units SC Q12 [facility] PRN Reason: Protocol Last Admin: 03/28/17 14:24 Dose: Not Given Hydralazine HCl (Apresoline) 25 mg PO TID [facility] Last Admin: 03/28/17 17:15 Dose: 25 mg Iron Sucrose 100 mg/ Sodium (Chloride) 105 mls @ 210 mls/hr IVPB DAILY [facility] Stop: 04/06/17 10:01 Last Admin: 03/28/17 14:35 Dose: 210 mls/hr Insulin Human Lispro (Humalog Med) 0 units SC ACHS [facility] PRN Reason: Protocol Last Admin: 03/28/17 17:27 Dose: 1 units Losartan Potassium (Cozaar) 50 mg PO DAILY [facility] Last Admin: 03/28/17 14:28 Dose: 50 mg Magnesium Oxide (Mag-Ox) 400 mg PO BID [facility] Stop: 03/30/17 12:31 Last Admin: 03/28/17 17:15 Dose: 400 mg Metoprolol Tartrate (Lopressor) 5 mg IVP Q6H [facility] Last Admin: 03/26/17 17:04 Dose: Not Given Ondansetron HCl (Zofran Inj) 4 mg IVP Q4H PRN PRN Reason: Nausea/Vomiting Last Admin: 03/25/17 23:48 Dose: 4 mg Pantoprazole Sodium (Protonix Ec Tab) 40 mg PO 0600 [facility] Last Admin: 03/28/17 05:47 Dose: 40 mg Vitamin B Complex/Vit C/Folic Acid (Nephro-Eleni) 1 tab PO 0800 [facility] - Labs Labs: 03/28/17 05:30 03/28/17 05:30 PT 11.4 Seconds (9.9-11.8) 03/25/17 12:55 INR 1.06 (0.93-1.08) 03/25/17 12:55 APTT 80.5 Seconds (23.7-30.8) H* 03/26/17 05:00 Assessment and Plan - Assessment and Plan (Free Text) Plan: Patient is off the floor for studies. He had dialysis catheter placed by the IR. I will review the reports of of carotid ultrasound and left upper extremity vein mapping and formulate the plan once I examine patient tomorrow.
--- NOTE | 2017-03-28 09:37 | CARD ---
APPROVED REPORT EXAM: Two-dimensional and M-mode echocardiogram with Doppler and color Doppler. Other Information Quality : AverageRhythm : INDICATION Dyspnea , Accelerated hypertension, renal failure 2D DIMENSIONS Left Atrium (2D)6.5 (1.6-4.0cm)IVSd1.4 (0.7-1.1cm) LVDd5.4 (3.9-5.9cm)PWd1.4 (0.7-1.1cm) LVDs4.1 (2.5-4.0cm)FS (%) 24.7 % LVEF (%)48.0 (>50%) M-Mode DIMENSIONS Aortic Root3.50 (2.2-3.7cm)Aortic Cusp Exc.1.90 (1.5-2.0cm) Aortic Valve AoV Peak Uuwbtxgn910.0cm/s Mitral Valve MV E Icmuswoy99.2cm/sMV A Jcmguvbe05.2cm/sE/A ratio1.0 TDI Lateral E' Peak V6.34cm/sMedial E' Peak V4.78cm/sE/Lateral E'10.0 E/Medial E'13.2 Pulmonary Valve PV Peak Flqiadrb31.1cm/sPV Peak Grad.2mmHg Tricuspid Valve TR Peak Sukcapaz269kn/sRAP BIDOOTLX56erLqRS Peak Gr.13mmHg [id number] LEFT VENTRICLE The left ventricle is normal size. There is moderate concentric left ventricular hypertrophy. The left ventricular function is normal. The left ventricular ejection fraction is low normal at - 50% There is normal LV segmental wall motion. RIGHT VENTRICLE The right ventricle is normal size. ATRIA The left atrium is moderately dilated. The right atrium size is normal. The interatrial septum is intact with no evidence for an atrial septal defect. AORTIC VALVE The aortic valve is normal in structure. MITRAL VALVE The mitral valve is normal in structure. Mitral regurgitation is trace. TRICUSPID VALVE The tricuspid valve is normal in structure. There is trace tricuspid regurgitation. PULMONIC VALVE The pulmonary valve is normal in structure. There is trace pulmonic valvular regurgitation. GREAT VESSELS The aortic root is normal in size. PERICARDIAL EFFUSION There is no pericardial effusion. <Conclusion> The left ventricle is normal size. There is moderate concentric left ventricular hypertrophy. The left ventricular function is low normal. The left ventricular ejection fraction is low normal at - 50%
--- NOTE | 2017-03-28 11:15 | CP.PCM.PN ---
<Libia Foster - Last Filed: 03/28/17 11:11> Subjective - Date & Time of Evaluation Date of Evaluation: 03/28/17 Time of Evaluation: 08:00 - Subjective Subjective: ICU Progress Note, Libia Foster, PGY-2 Pt was seen and examined at bedside. Pt SBP continued to improve. Pt tolerated permacath placement this AM well. Pt denies any acute complaints at this time. Pt denied fever, chills, dizziness, sob, chest pains, abdominal pains, n/v/d/c. Pt is for HD today. Objective - Vital Signs/Intake and Output Vital Signs (last 24 hours): Temp Pulse Resp BP Pulse Ox 98.2 F 49 L 27 H 159/77 H 98 03/28/17 08:00 03/28/17 10:00 03/28/17 09:30 03/28/17 09:17 03/28/17 10:00 Intake and Output: 03/28/17 03/28/17 06:59 18:59 Intake Total 1550 Output Total 835 Balance 715 - Medications Medications: Current Medications Acetaminophen (Tylenol 325mg Tab) 650 mg PO Q6H PRN PRN Reason: Pain, moderate (4-7) Last Admin: 03/27/17 23:09 Dose: 650 mg Amlodipine Besylate (Norvasc) 5 mg PO DAILY [facility] Last Admin: 03/27/17 15:35 Dose: 5 mg Atorvastatin Calcium (Lipitor) 40 mg PO DAILY [facility] Last Admin: 03/27/17 09:12 Dose: 40 mg Clonidine HCl (Catapres) 0.3 mg PO TID [facility] Last Admin: 03/27/17 17:24 Dose: 0.3 mg Clopidogrel Bisulfate (Plavix) 75 mg PO DAILY [facility] Last Admin: 03/27/17 09:12 Dose: 75 mg Heparin Sodium (Porcine) (Heparin) 5,000 units SC Q12 [facility] PRN Reason: Protocol Last Admin: 03/27/17 22:59 Dose: 5,000 units Hydralazine HCl (Apresoline) 25 mg PO TID [facility] Last Admin: 03/28/17 04:12 Dose: 25 mg Sodium Chloride (Sodium Chloride 0.45%) 1,000 mls @ 100 mls/hr IV .Q10H [facility] Last Admin: 03/28/17 04:29 Dose: 100 mls/hr Insulin Human Lispro (Humalog Med) 0 units SC ACHS [facility] PRN Reason: Protocol Last Admin: 03/28/17 08:27 Dose: Not Given Magnesium Oxide (Mag-Ox) 400 mg PO BID [facility] Stop: 03/30/17 12:31 Last Admin: 03/27/17 17:24 Dose: 400 mg Metoprolol Tartrate (Lopressor) 5 mg IVP Q6H [facility] Last Admin: 03/26/17 17:04 Dose: Not Given Ondansetron HCl (Zofran Inj) 4 mg IVP Q4H PRN PRN Reason: Nausea/Vomiting Last Admin: 03/25/17 23:48 Dose: 4 mg Pantoprazole Sodium (Protonix Ec Tab) 40 mg PO 0600 [facility] Last Admin: 03/28/17 05:47 Dose: 40 mg - Labs Labs: 03/28/17 05:30 03/28/17 05:30 PT 11.4 Seconds (9.9-11.8) 03/25/17 12:55 INR 1.06 (0.93-1.08) 03/25/17 12:55 APTT 80.5 Seconds (23.7-30.8) H* 03/26/17 05:00 - Constitutional Appears: No Acute Distress - Head Exam Head Exam: ATRAUMATIC, NORMAL INSPECTION, NORMOCEPHALIC - Eye Exam Eye Exam: EOMI, Normal appearance, PERRL Pupil Exam: NORMAL ACCOMODATION, PERRL - ENT Exam ENT Exam: Mucous Membranes Moist, Normal Exam - Respiratory Exam Respiratory Exam: Clear to Ausculation Bilateral, NORMAL BREATHING PATTERN - Cardiovascular Exam Cardiovascular Exam: REGULAR RHYTHM, +S1, +S2. absent: Murmur - GI/Abdominal Exam GI & Abdominal Exam: Soft, Normal Bowel Sounds. absent: Tenderness - Extremities Exam Extremities Exam: Full ROM, Normal Capillary Refill, Normal Inspection. absent : Joint Swelling, Pedal Edema - Neurological Exam Neurological Exam: Alert, Awake, CN II-XII Intact, Oriented x3 - Psychiatric Exam Psychiatric exam: Normal Affect, Normal Mood - Skin Skin Exam: Dry, Intact, Normal Color, Warm Assessment and Plan - Assessment and Plan (Free Text) Assessment: 56 m with HTN emergency with KITA on CKD, AMS and elevated trops. Pt HTN continues to improve. Nitro drip d/c, norvasc and hydralazine added. Pt tolerated permacath placement. Pt to be dialyzed as per Nephro. Neuro - stable - AAOx3 - Head CT showed no acute findings CVS - HTN emergency most likely 2/2 non compliance - BP improved - Hydralazine 25mg TID - Norvasc 5mg will titrate up as needed - clonidine to 0.3 TID - Echocardiogram demonstrated low normal EF - cont dual antiplatelets, asa, plavix - Maintain MAP >65 - cardiology consulted, Dr. Matthews following, stable for tele transfer pulm - saturated well on RA - supplemental O2 to maintain SpO2>90 - cont to monitor GI - heart health diet - cont protonix for GI ppx - CT Abd/pelv negative for acute pathology renal - KITA on CKD - Monitor urine output maintain goal of 0.5 cc/kg/hr - strict I&O - nephro consulted, Dr. Tami walton, recommended renal replacement therapy. HD after permacath placement, will add angelica/arb at that time endo - iss - maintain blood sugar between 140- 180 hem/onc - stable - will cont to monitor ID - afebrile without leukocytosis GI ppx- protonix DVT ppx- heparin Seen Reviewed and discussed with attending <Fernando Weiss - Last Filed: 03/28/17 17:11> Objective - Vital Signs/Intake and Output Vital Signs (last 24 hours): Temp Pulse Resp BP Pulse Ox 98.4 F 55 L 27 H 124/76 95 03/28/17 12:00 03/28/17 15:35 03/28/17 15:35 03/28/17 15:35 03/28/17 15:35 Intake and Output: 03/28/17 03/28/17 06:59 18:59 Intake Total 1550 Output Total 835 Balance 715 - Medications Medications: Current Medications Acetaminophen (Tylenol 325mg Tab) 650 mg PO Q6H PRN PRN Reason: Pain, moderate (4-7) Last Admin: 03/27/17 23:09 Dose: 650 mg Amlodipine Besylate (Norvasc) 5 mg PO DAILY [facility] Last Admin: 03/28/17 14:34 Dose: 5 mg Atorvastatin Calcium (Lipitor) 40 mg PO DAILY [facility] Last Admin: 03/28/17 14:30 Dose: 40 mg Clonidine HCl (Catapres) 0.3 mg PO TID [facility] Last Admin: 03/28/17 14:30 Dose: 0.3 mg Clopidogrel Bisulfate (Plavix) 75 mg PO DAILY [facility] Last Admin: 03/28/17 14:29 Dose: 75 mg Cyanocobalamin (Vitamin B12 1000 Mcg Tab) 1,000 mcg PO DAILY [facility] Last Admin: 03/28/17 14:32 Dose: 1,000 mcg Ergocalciferol (Drisdol 50,000 Intl Units Cap) 1 cap PO Q7D [facility] Stop: 05/16/17 11:46 Last Admin: 03/28/17 14:27 Dose: 1 cap Heparin Sodium (Porcine) (Heparin) 5,000 units SC Q12 [facility] PRN Reason: Protocol Last Admin: 03/28/17 14:24 Dose: Not Given Hydralazine HCl (Apresoline) 25 mg PO TID [facility] Last Admin: 03/28/17 14:33 Dose: 25 mg Iron Sucrose 100 mg/ Sodium (Chloride) 105 mls @ 210 mls/hr IVPB DAILY [facility] Stop: 04/06/17 10:01 Last Admin: 03/28/17 14:35 Dose: 210 mls/hr Insulin Human Lispro (Humalog Med) 0 units SC ACHS [facility] PRN Reason: Protocol Last Admin: 03/28/17 14:25 Dose: 1 units Losartan Potassium (Cozaar) 50 mg PO DAILY [facility] Last Admin: 03/28/17 14:28 Dose: 50 mg Magnesium Oxide (Mag-Ox) 400 mg PO BID [facility] Stop: 03/30/17 12:31 Last Admin: 03/28/17 14:32 Dose: 400 mg Metoprolol Tartrate (Lopressor) 5 mg IVP Q6H [facility] Last Admin: 03/26/17 17:04 Dose: Not Given Ondansetron HCl (Zofran Inj) 4 mg IVP Q4H PRN PRN Reason: Nausea/Vomiting Last Admin: 03/25/17 23:48 Dose: 4 mg Pantoprazole Sodium (Protonix Ec Tab) 40 mg PO 0600 [facility] Last Admin: 03/28/17 05:47 Dose: 40 mg Vitamin B Complex/Vit C/Folic Acid (Nephro-Eleni) 1 tab PO 0800 [facility] - Labs Labs: 03/28/17 05:30 03/28/17 05:30 PT 11.4 Seconds (9.9-11.8) 03/25/17 12:55 INR 1.06 (0.93-1.08) 03/25/17 12:55 APTT 80.5 Seconds (23.7-30.8) H* 03/26/17 05:00 Attending/Attestation - Attestation I have personally seen and examined this patient.: Yes I have fully participated in the care of the patient.: Yes I have reviewed all pertinent clinical information, including history, physical exam and plan: Yes Notes (Text): 03/28/17 17:06 56 yo male with now resolved hypertensive emergency resulted in KITA over CKD and myocardial ischemia, treated conservatively/medically. It was decided between patient and patient's private nephro service to initiate HD. patient received permacath and tolerated first session of HD in the ICU well. BP better controlled. Maintain euvolemia, euglycemia, normothermia and 02sat>90. DVT/GI prophylaxis. ok to downgrade to tele. ccm time 40 min
[2017-03-28] MEDS ORDERED: Iron Sucrose 100 mg/5 ml Inj IVP SCH (11:45)
[2017-03-28] MEDS ORDERED: Ergocalciferol 50,000 Intl Units Cap PO SCH (11:45)
--- NOTE | 2017-03-28 13:35 | CP.PCM.PN ---
Subjective - Date & Time of Evaluation Date of Evaluation: 03/28/17 Time of Evaluation: 11:15 - Subjective Subjective: Follow up Nephrology Consultation Note Assessment: critical Acute Kidney Injury (N17.9) versus progressive CKD stage 5, Likely ESRD now Uncontrolled severe HTN with emergency, Altered mental status (toxic metabolic encephalopathy) Diabetic chronic Kidney Disease (E11.22) Hypertensive Chronic Kidney Disease (I12.9) hx of Chronic Kidney Disease (N18.4) Stage 4 with 7 gram proteinuria (R80.9), nephrotic syndrome likely due to diabetes in 2016 Anemia (D64.9) (TSAT 34% Ferritin 67), Hyperphosphatemia (E83.39), HTN (I12.9), hypomagnesemia, hypokalemia, metabolic acidosis, Vit D (<12.8) and B12 (270) defeciency and secondary hyperparathyroidism (PTH 396) active marijuana smoker, ex etoh abuse Non-compliant to medications and Follow up CAD sp CABG Plan 1st HD today via permacath. next HD tomorrow appreciate vascular surgery for AVF in non-dominant arm (right). Avoid phlebotomy in Rt upper extremity. Hypertension control with meds as ordered. would like to taper off clonidine due to risk of rebound HTN with his compliance issues. CCB such as amlodipine is a good choice in addition to beta-anjelica and ARBs. will add losartan supplement electrolytes. will order weekly vit D x 8 doses, b12 po daily and nephrovite 1/day also load with IV iron 100 mg x 10 doses and then re-assess anemia, need for ESAs. if keeps oozing blood from exit site, please d/w IR for further interventions Monitor Input/Output, daily weights and renal function with basic metabolic panel. Dose meds/antibiotics for reduced GFR<10. Avoid fleets enema/magnesium based laxatives. Avoid nephrotoxins/NSAIDs/ iodinated contrast (unless needed emergently) Glycemic control. renal diet Further work up for as per primary team. SW for outpt HD placement. Thanks for allowing me to participate in care of your patient. Will follow patient with you. Please call if any Qs. Dr Sancho Garrett Office: [phone] Subjective: Noted events overnight. Patients feels better. Denies chest pain, palpitation, leg swelling. No urinary complaints. has chronic martinez. denies nausea/vomitting earlier. improved blurry vision. smokes THC but denies Etoh or tobacco. he mostly uses walker or wheelchair for ambulation. 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 Vitals reviewed and noted as below Lungs: Normal respiratory rate/effort. Breath sounds bilateral equal and clear Heart: Normal rate. s1s2 normal. No rub or gallop. Extremities: no edema. s/p Rt forefoot amputation. has left heel ulcer Neurological: Patient is alert, awake and oriented to person, place and time. No focal deficit. Strength bilateral appropriate and equal. Skin: Warm and dry. Normal turgor. No rash. Palpitation: Normal elasticity for age Abdomen: Abdomen is soft. Bowel sounds +. There is no abdominal tenderness, no guarding/rigidity or organomegaly : kidney or bladder not palpable. has martinez + Access: Rt chest permacath with some oozing of blood around exit site Labs/imaging reviewed. Past medical history, past surgical history, family history, social history, allergy reviewed work up; in 2016; normal complements, and neg MARY, neg Hep B/C CT abdomen this admission: unremarkable for kidney/adrenals Objective - Vital Signs/Intake and Output Vital Signs (last 24 hours): Temp Pulse Resp BP Pulse Ox 98.4 F 51 L 6 L 201/93 H 100 03/28/17 12:00 03/28/17 12:02 03/28/17 10:30 03/28/17 12:02 03/28/17 12:02 Intake and Output: 03/28/17 03/28/17 06:59 18:59 Intake Total 1550 Output Total 835 Balance 715 - Medications Medications: Current Medications Acetaminophen (Tylenol 325mg Tab) 650 mg PO Q6H PRN PRN Reason: Pain, moderate (4-7) Last Admin: 03/27/17 23:09 Dose: 650 mg Amlodipine Besylate (Norvasc) 5 mg PO DAILY [facility] Last Admin: 03/27/17 15:35 Dose: 5 mg Atorvastatin Calcium (Lipitor) 40 mg PO DAILY [facility] Last Admin: 03/27/17 09:12 Dose: 40 mg Clonidine HCl (Catapres) 0.3 mg PO TID [facility] Last Admin: 03/27/17 17:24 Dose: 0.3 mg Clopidogrel Bisulfate (Plavix) 75 mg PO DAILY [facility] Last Admin: 03/27/17 09:12 Dose: 75 mg Cyanocobalamin (Vitamin B12 1000 Mcg Tab) 1,000 mcg PO DAILY [facility] Ergocalciferol (Drisdol 50,000 Intl Units Cap) 1 cap PO Q7D [facility] Stop: 05/16/17 11:46 Heparin Sodium (Porcine) (Heparin) 5,000 units SC Q12 [facility] PRN Reason: Protocol Last Admin: 03/27/17 22:59 Dose: 5,000 units Hydralazine HCl (Apresoline) 25 mg PO TID [facility] Last Admin: 03/28/17 04:12 Dose: 25 mg Iron Sucrose 100 mg/ Sodium (Chloride) 105 mls @ 210 mls/hr IVPB DAILY [facility] Stop: 04/06/17 10:01 Insulin Human Lispro (Humalog Med) 0 units SC ACHS [facility] PRN Reason: Protocol Last Admin: 03/28/17 08:27 Dose: Not Given Losartan Potassium (Cozaar) 50 mg PO DAILY [facility] Magnesium Oxide (Mag-Ox) 400 mg PO BID [facility] Stop: 03/30/17 12:31 Last Admin: 03/27/17 17:24 Dose: 400 mg Metoprolol Tartrate (Lopressor) 5 mg IVP Q6H [facility] Last Admin: 03/26/17 17:04 Dose: Not Given Ondansetron HCl (Zofran Inj) 4 mg IVP Q4H PRN PRN Reason: Nausea/Vomiting Last Admin: 03/25/17 23:48 Dose: 4 mg Pantoprazole Sodium (Protonix Ec Tab) 40 mg PO 0600 [facility] Last Admin: 03/28/17 05:47 Dose: 40 mg Vitamin B Complex/Vit C/Folic Acid (Nephro-Eleni) 1 tab PO 0800 [facility] - Labs Labs: 03/28/17 05:30 03/28/17 05:30 PT 11.4 Seconds (9.9-11.8) 03/25/17 12:55 INR 1.06 (0.93-1.08) 03/25/17 12:55 APTT 80.5 Seconds (23.7-30.8) H* 03/26/17 05:00
--- NOTE | 2017-03-28 13:36 | CP.PCM.PN ---
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 plan for next HD tomorrow Objective - Vital Signs/Intake and Output Vital Signs (last 24 hours): Temp Pulse Resp BP Pulse Ox 98.4 F 51 L 6 L 201/93 H 100 03/28/17 12:00 03/28/17 12:02 03/28/17 10:30 03/28/17 12:02 03/28/17 12:02 Intake and Output: 03/28/17 03/28/17 06:59 18:59 Intake Total 1550 Output Total 835 Balance 715 - Medications Medications: Current Medications Acetaminophen (Tylenol 325mg Tab) 650 mg PO Q6H PRN PRN Reason: Pain, moderate (4-7) Last Admin: 03/27/17 23:09 Dose: 650 mg Amlodipine Besylate (Norvasc) 5 mg PO DAILY [facility] Last Admin: 03/27/17 15:35 Dose: 5 mg Atorvastatin Calcium (Lipitor) 40 mg PO DAILY [facility] Last Admin: 03/27/17 09:12 Dose: 40 mg Clonidine HCl (Catapres) 0.3 mg PO TID [facility] Last Admin: 03/27/17 17:24 Dose: 0.3 mg Clopidogrel Bisulfate (Plavix) 75 mg PO DAILY [facility] Last Admin: 03/27/17 09:12 Dose: 75 mg Cyanocobalamin (Vitamin B12 1000 Mcg Tab) 1,000 mcg PO DAILY [facility] Ergocalciferol (Drisdol 50,000 Intl Units Cap) 1 cap PO Q7D [facility] Stop: 05/16/17 11:46 Heparin Sodium (Porcine) (Heparin) 5,000 units SC Q12 [facility] PRN Reason: Protocol Last Admin: 03/27/17 22:59 Dose: 5,000 units Hydralazine HCl (Apresoline) 25 mg PO TID [facility] Last Admin: 03/28/17 04:12 Dose: 25 mg Iron Sucrose 100 mg/ Sodium (Chloride) 105 mls @ 210 mls/hr IVPB DAILY [facility] Stop: 04/06/17 10:01 Insulin Human Lispro (Humalog Med) 0 units SC ACHS [facility] PRN Reason: Protocol Last Admin: 03/28/17 08:27 Dose: Not Given Losartan Potassium (Cozaar) 50 mg PO DAILY [facility] Magnesium Oxide (Mag-Ox) 400 mg PO BID [facility] Stop: 03/30/17 12:31 Last Admin: 03/27/17 17:24 Dose: 400 mg Metoprolol Tartrate (Lopressor) 5 mg IVP Q6H [facility] Last Admin: 03/26/17 17:04 Dose: Not Given Ondansetron HCl (Zofran Inj) 4 mg IVP Q4H PRN PRN Reason: Nausea/Vomiting Last Admin: 03/25/17 23:48 Dose: 4 mg Pantoprazole Sodium (Protonix Ec Tab) 40 mg PO 0600 [facility] Last Admin: 03/28/17 05:47 Dose: 40 mg Vitamin B Complex/Vit C/Folic Acid (Nephro-Eleni) 1 tab PO 0800 [facility] - Labs Labs: 03/28/17 05:30 03/28/17 05:30 PT 11.4 Seconds (9.9-11.8) 03/25/17 12:55 INR 1.06 (0.93-1.08) 03/25/17 12:55 APTT 80.5 Seconds (23.7-30.8) H* 03/26/17 05:00
[2017-03-28] MEDS: Magnesium Oxide 400 mg Tab UD PO SCH ×2 (14:32→17:15)
[2017-03-28] MEDS ORDERED: Oxycodone/Acetaminophen 5/325 mg Tab PO STA ×2 (15:17→22:10)
--- NOTE | 2017-03-28 17:48 | US ---
PROCEDURE: Bilateral carotid artery duplex ultrasound HISTORY: Carotid stenosis PHYSICIAN(S): Yousif Cortés MD. TECHNIQUE: Duplex sonography and color-flow Doppler were used to evaluate the carotid bifurcations and limited segments of the vertebral arteries bilaterally. FINDINGS: The exam is limited by tortuous vessels and the patient's inability to cooperate There is mild to moderate smooth heterogeneous plaque noted at the carotid bifurcations bilaterally. The peak systolic velocity in the proximal right internal carotid artery is 62 cm/sec. This corresponds to a 20 to 39% proximal right ICA stenosis. Normal systolic velocities are noted in the proximal right external carotid artery. There is antegrade flow in the right vertebral artery. The peak systolic velocity in the proximal left internal carotid artery is 67 cm/sec. This corresponds to a 20 to 39% proximal left ICA stenosis. Normal systolic velocities are noted in the proximal left external carotid artery. There is antegrade flow in the left vertebral artery. IMPRESSION: 1. Bilateral 20-39% proximal ICA stenoses. 2. Antegrade flow in both vertebral arteries.
--- NOTE | 2017-03-28 17:51 | US ---
PROCEDURE: Left upper extremity venous ultrasound HISTORY: End-stage renal disease. Vein mapping for AV fistula placement PHYSICIAN(S): Yousif Cortés MD. FINDINGS: Left basilic vein: The left basilic vein at the wrist is large, measuring 4.6 mm. The left basilic vein in the forearm is large and patent, measuring 4-5 mm. The left basilic vein at the elbow was small and somewhat thick walled, measuring 2-3 mm. The left basilic vein in the upper arm is normal in appearance in size, measuring 4-7 mm. Left cephalic vein: The left cephalic vein and the wrist measures 3.5 mm. The left cephalic vein in the forearm measures 3-4 mm. The left cephalic vein at the elbow measures 7 mm. The left cephalic vein above the elbow measures 4 mm. Left cephalic vein in the upper arm is small and somewhat thick walled measuring 3-4 mm. IMPRESSION: Left superficial vein mapping as described above. Segments of the left basilic vein at the elbow and left cephalic vein in the upper arm are somewhat thick walled and small. .
--- NOTE | 2017-03-28 22:06 | CP.PCM.PN ---
<JuanKayleigh - Last Filed: 03/28/17 22:45> Subjective - Date & Time of Evaluation Date of Evaluation: 03/28/17 Time of Evaluation: 07:15 - Subjective Subjective: Patient seen and examined at bedside. He has no new complaints. Normal mentation , lucid during encounter. Objective - Vital Signs/Intake and Output Vital Signs (last 24 hours): Temp Pulse Resp BP Pulse Ox 98.4 F 60 23 142/71 98 03/28/17 16:00 03/28/17 18:00 03/28/17 18:00 03/28/17 17:51 03/28/17 18:00 Intake and Output: 03/28/17 03/29/17 18:59 06:59 Intake Total 950 Output Total 1335 Balance -385 - Medications Medications: Current Medications Acetaminophen (Tylenol 325mg Tab) 650 mg PO Q6H PRN PRN Reason: Pain, moderate (4-7) Last Admin: 03/27/17 23:09 Dose: 650 mg Amlodipine Besylate (Norvasc) 5 mg PO DAILY [facility] Last Admin: 03/28/17 14:34 Dose: 5 mg Atorvastatin Calcium (Lipitor) 40 mg PO DAILY [facility] Last Admin: 03/28/17 14:30 Dose: 40 mg Clonidine HCl (Catapres) 0.3 mg PO TID [facility] Last Admin: 03/28/17 17:16 Dose: 0.3 mg Clopidogrel Bisulfate (Plavix) 75 mg PO DAILY [facility] Last Admin: 03/28/17 14:29 Dose: 75 mg Cyanocobalamin (Vitamin B12 1000 Mcg Tab) 1,000 mcg PO DAILY [facility] Last Admin: 03/28/17 14:32 Dose: 1,000 mcg Ergocalciferol (Drisdol 50,000 Intl Units Cap) 1 cap PO Q7D [facility] Stop: 05/16/17 11:46 Last Admin: 03/28/17 14:27 Dose: 1 cap Gabapentin (Neurontin) 100 mg PO TID [facility] PRN Reason: Protocol Last Admin: 03/28/17 18:37 Dose: 100 mg Heparin Sodium (Porcine) (Heparin) 5,000 units SC Q12 [facility] PRN Reason: Protocol Last Admin: 03/28/17 21:45 Dose: Not Given Hydralazine HCl (Apresoline) 25 mg PO TID [facility] Last Admin: 03/28/17 17:15 Dose: 25 mg Iron Sucrose 100 mg/ Sodium (Chloride) 105 mls @ 210 mls/hr IVPB DAILY [facility] Stop: 04/06/17 10:01 Last Admin: 03/28/17 14:35 Dose: 210 mls/hr Insulin Human Lispro (Humalog Med) 0 units SC ACHS [facility] PRN Reason: Protocol Last Admin: 03/28/17 21:44 Dose: Not Given Losartan Potassium (Cozaar) 50 mg PO DAILY [facility] Last Admin: 03/28/17 14:28 Dose: 50 mg Magnesium Oxide (Mag-Ox) 400 mg PO BID [facility] Stop: 03/30/17 12:31 Last Admin: 03/28/17 17:15 Dose: 400 mg Metoprolol Tartrate (Lopressor) 5 mg IVP Q6H [facility] Last Admin: 03/26/17 17:04 Dose: Not Given Ondansetron HCl (Zofran Inj) 4 mg IVP Q4H PRN PRN Reason: Nausea/Vomiting Last Admin: 03/25/17 23:48 Dose: 4 mg Pantoprazole Sodium (Protonix Ec Tab) 40 mg PO 0600 [facility] Last Admin: 03/28/17 05:47 Dose: 40 mg Vitamin B Complex/Vit C/Folic Acid (Nephro-Eleni) 1 tab PO 0800 [facility] - Labs Labs: 03/28/17 05:30 03/28/17 05:30 PT 11.4 Seconds (9.9-11.8) 03/25/17 12:55 INR 1.06 (0.93-1.08) 03/25/17 12:55 APTT 80.5 Seconds (23.7-30.8) H* 03/26/17 05:00 - Constitutional Appears: Non-toxic, No Acute Distress - Head Exam Head Exam: ATRAUMATIC, NORMOCEPHALIC - Eye Exam Eye Exam: EOMI, Normal appearance Pupil Exam: PERRL - Neck Exam Neck Exam: Normal Inspection - Respiratory Exam Respiratory Exam: NORMAL BREATHING PATTERN. absent: Accessory Muscle Use, Chest Wall Tenderness - Cardiovascular Exam Cardiovascular Exam: RRR, +S1, +S2 - Rectal Exam Rectal Exam: Deferred - Extremities Exam Additional comments: Right foot is partially amputated, left foot has post-surgical changes. - Neurological Exam Neurological Exam: Alert, Awake, Oriented x3 - Psychiatric Exam Psychiatric exam: Normal Affect, Normal Mood Assessment and Plan - Assessment and Plan (Free Text) Assessment: 56 year old male with past medical history of CAD s/p CABG, hypertension, diabetes and CVA who presented with altered mental status. He was found to have acute on chronic renal failure and rhabdomyolysis. He was also noted to have mildly elevated troponins in setting of renal failure. CT head showed chronic lacunar infarcts. Plan: 1. Hypertensive Emergency resolved, patient transition onto PO antihypertensive. - Hydralazine 25 mg TID, Losartan 50 mg, Amlodipine 5 mg, Clonidine taper should be instituted. 2. Elevated troponin - Secondary to acute renal failure - Troponin neg x 3, EKG showed NSR - EF 50% per ECHO - Continue Plavix, Lipitor (Home med) for CAD - 3. ESRD - permacath placed, HD started 03/28 - Dr. Garrett following, see notes for details, appreciate recommendations. 4. AMS likely secondary to hypertensive emergency and metabolic encephalopathy. - Patients mental status has returned to near baseline. - Patient does have a history of multiple stroke Neurology is following 5. Rhabdomyolysis Patient's CK has trended down after IVF administration 6. DM - HgbA1c 7.2, ISS humalog, maitain blood sugars of 140-180 7.Peripheral Neuropathy: - Gabapentin <eJnnifer Ritter - Last Filed: 03/29/17 07:26> Objective - Vital Signs/Intake and Output Vital Signs (last 24 hours): Temp Pulse Resp BP Pulse Ox 97.8 F 51 L 20 176/80 H 98 03/29/17 06:00 03/29/17 06:00 03/29/17 06:00 03/29/17 06:00 03/29/17 06:00 Intake and Output: 03/29/17 03/29/17 06:59 18:59 Intake Total 240 Output Total 1999 Balance -1760 - Medications Medications: Current Medications Acetaminophen (Tylenol 325mg Tab) 650 mg PO Q6H PRN PRN Reason: Pain, moderate (4-7) Last Admin: 03/27/17 23:09 Dose: 650 mg Amlodipine Besylate (Norvasc) 5 mg PO DAILY [facility] Last Admin: 03/28/17 14:34 Dose: 5 mg Atorvastatin Calcium (Lipitor) 40 mg PO DAILY [facility] Last Admin: 03/28/17 14:30 Dose: 40 mg Clonidine HCl (Catapres) 0.3 mg PO TID [facility] Last Admin: 03/28/17 17:16 Dose: 0.3 mg Clopidogrel Bisulfate (Plavix) 75 mg PO DAILY [facility] Last Admin: 03/28/17 14:29 Dose: 75 mg Cyanocobalamin (Vitamin B12 1000 Mcg Tab) 1,000 mcg PO DAILY [facility] Last Admin: 03/28/17 14:32 Dose: 1,000 mcg Ergocalciferol (Drisdol 50,000 Intl Units Cap) 1 cap PO Q7D [facility] Stop: 05/16/17 11:46 Last Admin: 03/28/17 14:27 Dose: 1 cap Gabapentin (Neurontin) 100 mg PO TID [facility] PRN Reason: Protocol Last Admin: 03/28/17 18:37 Dose: 100 mg Heparin Sodium (Porcine) (Heparin) 5,000 units SC Q12 [facility] PRN Reason: Protocol Last Admin: 03/28/17 21:45 Dose: Not Given Hydralazine HCl (Apresoline) 25 mg PO TID [facility] Last Admin: 03/28/17 17:15 Dose: 25 mg Iron Sucrose 100 mg/ Sodium (Chloride) 105 mls @ 210 mls/hr IVPB DAILY [facility] Stop: 04/06/17 10:01 Last Admin: 03/28/17 14:35 Dose: 210 mls/hr Insulin Human Lispro (Humalog Med) 0 units SC ACHS [facility] PRN Reason: Protocol Last Admin: 03/28/17 21:44 Dose: Not Given Losartan Potassium (Cozaar) 50 mg PO DAILY [facility] Last Admin: 03/28/17 14:28 Dose: 50 mg Magnesium Oxide (Mag-Ox) 400 mg PO BID [facility] Stop: 03/30/17 12:31 Last Admin: 03/28/17 17:15 Dose: 400 mg Metoprolol Tartrate (Lopressor) 5 mg IVP Q6H [facility] Last Admin: 03/26/17 17:04 Dose: Not Given Ondansetron HCl (Zofran Inj) 4 mg IVP Q4H PRN PRN Reason: Nausea/Vomiting Last Admin: 03/25/17 23:48 Dose: 4 mg Pantoprazole Sodium (Protonix Ec Tab) 40 mg PO 0600 [facility] Last Admin: 03/29/17 05:49 Dose: 40 mg Vitamin B Complex/Vit C/Folic Acid (Nephro-Eleni) 1 tab PO 0800 [facility] - Labs Labs: 03/29/17 05:40 03/29/17 05:40 PT 11.4 Seconds (9.9-11.8) 03/25/17 12:55 INR 1.06 (0.93-1.08) 03/25/17 12:55 APTT 80.5 Seconds (23.7-30.8) H* 03/26/17 05:00 Attending/Attestation - Attestation I have personally seen and examined this patient.: Yes I have fully participated in the care of the patient.: Yes I have reviewed all pertinent clinical information, including history, physical exam and plan: Yes Notes (Text): 03/28/17 56 year old male with past medical history of CAD s/p CABG, hypertension, diabetes and CVA who presented with altered mental status. He was found to have acute on chronic renal failure and rhabdomyolysis. He was also noted to have mildly elevated troponins in setting of renal failure. CT head showed chronic lacunar infarcts. He is currently on clonidine, hydralazine and norvasc. Cozaar is added today as well. Cardiology and nephrology are following the patient. He is on plavix and statin. Echocardiogram and doppler studies were reviewed. Patient is s/p permacath and has started dialysis. Vascular surgery is also following for evaluation of AVF. PT evaluation is pending. Jennifer Ritter MD Hospitalist.
[2017-03-29] MEDS: Pantoprazole 40 mg EC Tab PO SCH (05:49)
[2017-03-29 06:16] LABS: BASO # 0.03 K/mm3 (0.0-2.0); BASO % 0.7 % (0.0-3.0); EOS # 0.2 (0.0-0.7); EOS % 3.5 % (1.5-5.0); GRAN # 2.81 (1.4-6.5); GRAN % 61.6 % (50.0-68.0); HEMOGLOBIN 9.5 gm/dL (14.0-18.0); LYMPH # 1.2 (1.2-3.4); LYMPH % 25.4 % (22.0-35.0); MEAN CELL VOLUME 79.3 fL (80.0-105.0); MEAN CORPUSCULAR HEMOGLOBIN 25.8 pg (25.0-35.0); MEAN CORPUSCULAR HGB CONC 32.5 g/dl (31.0-37.0); MEAN PLATELET VOLUME 11.6 fl (7.0-11.0); MONO # 0.4 (0.1-0.6); MONO % 8.8 % (1.0-6.0); PLATELET COUNT 168 10^3/uL (120.0-450.0); RBC 3.68 10^6/uL (3.5-6.1); RED CELL DISTRIBUTION WIDTH 14.6 % (11.5-14.5); WHITE BLOOD COUNT 4.6 10^3/ul (4.5-11.0)
[2017-03-29 06:26] LABS: CALCIUM 7.3 mg/dL (8.4-10.5)
[2017-03-29] MEDS: Multivitamin Vitamin B Complex (Nephro-Vite) Tab PO SCH (08:39)
[2017-03-29] MEDS: Insulin Lispro (humaLOG) MEDIUM Coverage SC SCH ×5 (08:39→21:38)
[2017-03-29] MEDS: Magnesium Oxide 400 mg Tab UD PO SCH ×2 (11:13→19:08)
--- NOTE | 2017-03-29 13:43 | PN ---
DATE: 03/29/2017 SUBJECTIVE: The patient is seen lying in bed on telemetry, he is currently comfortable. Denies any chest pain. His blood pressure control remains suboptimal. CURRENT MEDICATIONS: Include hydroxyzine 25 mg t.i.d., Catapres 0.3 mg t.i.d., Cozaar 100 mg daily, Lipitor 40 mg daily, Norvasc 10 mg daily, Plavix 75 mg daily and Protonix. OBJECTIVE: GENERAL: He is a middle age man who appears comfortable at the present time. VITAL SIGNS: His blood pressure is 176/80 with a pulse of 50, respirations are 16. He is afebrile. HEENT: No JVD. CHEST: Few scattered rhonchi noted. HEART: PMI displaced laterally with systolic murmur in the left sternal border. ABDOMEN: Soft and nontender with normoactive bowel sounds.. EXTREMITIES: No edema, toe amputation is noted on the right. DIAGNOSTIC DATA: CK is elevated at 256 with a negative MB fraction. Potassium 4.0, BUN and creatinine of 47 and 5.2. Hemoglobin and hematocrit 9.5 and 29.2 with an MCV of 79, platelet count 138,000. IMPRESSION: 1. Recent hypertensive urgency, clinically improved. 2. Borderline troponin elevation in the setting of excessive hypertension, likely due to left ventricular strain. No clear evidence of acute cardiac ischemia. 3. Acute on chronic renal failure, currently being dialyzed through a catheter. 4. Coronary artery disease, status post prior bypass surgery. 5. History of hypertension and diabetes. RECOMMENDATIONS: 1. His current medications can be continued and dose intensified as needed for blood pressure control. Intervenous beta anjelica has been withheld and resumption of an oral agent is advised as long as he does not develop excessive bradycardia. 2. Continued conservative cardiac management os recommended. We will be happy to follow and make further recommendations as appropriate. Manuel Mills MD
--- NOTE | 2017-03-29 14:10 | CP.PCM.PN ---
Subjective - Date & Time of Evaluation Date of Evaluation: 03/29/17 Time of Evaluation: 14:03 - Subjective Subjective: Patient has no acute or specific complaints, but states he feels worse than yesterday overall. Objective - Vital Signs/Intake and Output Vital Signs (last 24 hours): Temp Pulse Resp BP Pulse Ox 97.1 F L 53 L 19 188/96 H 98 03/29/17 12:00 03/29/17 12:00 03/29/17 12:00 03/29/17 12:00 03/29/17 06:00 Intake and Output: 03/29/17 03/29/17 06:59 18:59 Intake Total 240 Output Total 2000 Balance -1760 - Medications Medications: Current Medications Acetaminophen (Tylenol 325mg Tab) 650 mg PO Q6H PRN PRN Reason: Pain, moderate (4-7) Last Admin: 03/27/17 23:09 Dose: 650 mg Amlodipine Besylate (Norvasc) 10 mg PO DAILY [facility] Last Admin: 03/29/17 11:09 Dose: Not Given Atorvastatin Calcium (Lipitor) 40 mg PO DAILY [facility] Last Admin: 03/29/17 11:13 Dose: 40 mg Clonidine HCl (Catapres) 0.3 mg PO TID [facility] Last Admin: 03/29/17 11:09 Dose: Not Given Clopidogrel Bisulfate (Plavix) 75 mg PO DAILY [facility] Last Admin: 03/29/17 11:13 Dose: 75 mg Cyanocobalamin (Vitamin B12 1000 Mcg Tab) 1,000 mcg PO DAILY [facility] Last Admin: 03/29/17 11:14 Dose: 1,000 mcg Ergocalciferol (Drisdol 50,000 Intl Units Cap) 1 cap PO Q7D [facility] Stop: 05/16/17 11:46 Last Admin: 03/28/17 14:27 Dose: 1 cap Gabapentin (Neurontin) 100 mg PO TID [facility] PRN Reason: Protocol Last Admin: 03/29/17 11:17 Dose: 100 mg Heparin Sodium (Porcine) (Heparin) 5,000 units SC Q12 [facility] PRN Reason: Protocol Last Admin: 03/29/17 11:14 Dose: 5,000 units Hydralazine HCl (Apresoline) 25 mg PO TID [facility] Last Admin: 03/29/17 11:09 Dose: Not Given Iron Sucrose 100 mg/ Sodium (Chloride) 105 mls @ 210 mls/hr IVPB DAILY [facility] Stop: 04/06/17 10:01 Last Admin: 03/28/17 14:35 Dose: 210 mls/hr Insulin Human Lispro (Humalog Med) 0 units SC ACHS [facility] PRN Reason: Protocol Last Admin: 03/29/17 13:19 Dose: 3 units Losartan Potassium (Cozaar) 100 mg PO DAILY [facility] Magnesium Oxide (Mag-Ox) 400 mg PO BID [facility] Stop: 03/30/17 12:31 Last Admin: 03/29/17 11:13 Dose: 400 mg Metoprolol Tartrate (Lopressor) 25 mg PO BRKDIN [facility] Ondansetron HCl (Zofran Inj) 4 mg IVP Q4H [facility]N PRN Reason: Nausea/Vomiting Last Admin: 03/25/17 23:48 Dose: 4 mg Pantoprazole Sodium (Protonix Ec Tab) 40 mg PO 0600 [facility] Last Admin: 03/29/17 05:49 Dose: 40 mg Vitamin B Complex/Vit C/Folic Acid (Nephro-Eleni) 1 tab PO 0800 [facility] Last Admin: 03/29/17 08:39 Dose: 1 tab - Labs Labs: 03/29/17 05:40 03/29/17 05:40 PT 11.4 Seconds (9.9-11.8) 03/25/17 12:55 INR 1.06 (0.93-1.08) 03/25/17 12:55 APTT 80.5 Seconds (23.7-30.8) H* 03/26/17 05:00 - Constitutional Appears: Non-toxic, No Acute Distress - Head Exam Head Exam: ATRAUMATIC, NORMAL INSPECTION - Eye Exam Eye Exam: EOMI, Normal appearance, PERRL Pupil Exam: NORMAL ACCOMODATION, PERRL - ENT Exam ENT Exam: Mucous Membranes Moist - Neck Exam Neck Exam: Full ROM - Respiratory Exam Respiratory Exam: Clear to Ausculation Bilateral, NORMAL BREATHING PATTERN - Cardiovascular Exam Cardiovascular Exam: REGULAR RHYTHM, RRR. absent: JVD - GI/Abdominal Exam GI & Abdominal Exam: Normal Bowel Sounds - Extremities Exam Extremities Exam: Normal Capillary Refill (patient has bruises and ecchymosis from venipunctures both arms) - Skin Skin Exam: Normal Color, Warm Assessment and Plan - Assessment and Plan (Free Text) Plan: Patient was started on dialysis via right-sided dialysis catheter. Overall, he' s been clinically improving. His carotid ultrasound has no evidence of high grade stenosis. Patient will need AV fistula placement which I will plan to place within likely two week time as patient needs time to recover from venipunctures in his arms. He can be discharged from vascular standpoint I will plan for AV fistula creation as soon as his ecchymosis and tissues clear.
--- NOTE | 2017-03-29 14:22 | CP.PCM.PN ---
Subjective - Date & Time of Evaluation Date of Evaluation: 03/29/17 Time of Evaluation: 14:19 - Subjective Subjective: Follow up Nephrology Consultation Note Assessment: stable Acute Kidney Injury (N17.9) versus progressive CKD stage 5, Likely ESRD now started HD 03/28/2017 Uncontrolled severe HTN with emergency, Altered mental status (toxic metabolic encephalopathy) Diabetic chronic Kidney Disease (E11.22) Hypertensive Chronic Kidney Disease (I12.9) hx of Chronic Kidney Disease (N18.4) Stage 4 with 7 gram proteinuria (R80.9), nephrotic syndrome likely due to diabetes in 2016 Anemia (D64.9) (TSAT 34% Ferritin 67), Hyperphosphatemia (E83.39), HTN (I12.9), hypomagnesemia, hypokalemia, metabolic acidosis, Vit D (<12.8) and B12 (270) defeciency and secondary hyperparathyroidism (PTH 396) active marijuana smoker, ex etoh abuse Non-compliant to medications and Follow up CAD sp CABG Plan 2nd HD today via permacath. next HD tomorrow and as TTS schedule appreciate vascular surgery eval for AVF in non-dominant arm (right). Avoid phlebotomy in Rt upper extremity. Hypertension control with meds as ordered. would like to taper off clonidine due to risk of rebound HTN with his compliance issues but his BP too high at this time. on max dose losartan and norvasc. also on hydralazine and lopressor supplement electrolytes as needed. continue with weekly vit D x 8 doses, b12 po daily and nephrovite 1/day also load with IV iron 100 mg x 10 doses d/c martinez at the earliest. Dose meds/antibiotics for reduced GFR<10. Avoid fleets enema/magnesium based laxatives. Avoid nephrotoxins/NSAIDs/ iodinated contrast (unless needed emergently) Glycemic control. renal diet Further work up for as per primary team. SW for outpt HD placement Thanks for allowing me to participate in care of your patient. Will follow patient with you. Please call if any Qs. Dr Sancho Garrett Office: [phone] Subjective: Noted events overnight. Patients feels bit tired today. Denies chest pain, palpitation, leg swelling. No urinary complaints. denies nausea/ vomitting. smokes THC but denies Etoh or tobacco. he mostly uses walker or wheelchair for ambulation. 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 Vitals reviewed and noted as below Lungs: Normal respiratory rate/effort. Breath sounds bilateral equal and clear Heart: Normal rate. s1s2 normal. No rub or gallop. Extremities: no edema. s/p Rt forefoot amputation. has left heel ulcer Neurological: Patient is alert, awake and oriented to person, place and time. No focal deficit. Strength bilateral appropriate and equal. Skin: Warm and dry. Normal turgor. No rash. Palpitation: Normal elasticity for age Abdomen: Abdomen is soft. Bowel sounds +. There is no abdominal tenderness, no guarding/rigidity or organomegaly : kidney or bladder not palpable. has martinez + Access: Rt chest permacath Labs/imaging reviewed. Past medical history, past surgical history, family history, social history, allergy reviewed work up; in 2016; normal complements, and neg MARY, neg Hep B/C CT abdomen this admission: unremarkable for kidney/adrenals Objective - Vital Signs/Intake and Output Vital Signs (last 24 hours): Temp Pulse Resp BP Pulse Ox 97.1 F L 53 L 19 188/96 H 98 03/29/17 12:00 03/29/17 12:00 03/29/17 12:00 03/29/17 12:00 03/29/17 06:00 Intake and Output: 03/29/17 03/29/17 06:59 18:59 Intake Total 240 Output Total 2000 Balance -1760 - Medications Medications: Current Medications Acetaminophen (Tylenol 325mg Tab) 650 mg PO Q6H PRN PRN Reason: Pain, moderate (4-7) Last Admin: 03/27/17 23:09 Dose: 650 mg Amlodipine Besylate (Norvasc) 10 mg PO DAILY [facility] Last Admin: 03/29/17 11:09 Dose: Not Given Atorvastatin Calcium (Lipitor) 40 mg PO DAILY [facility] Last Admin: 03/29/17 11:13 Dose: 40 mg Clonidine HCl (Catapres) 0.3 mg PO TID [facility] Last Admin: 03/29/17 11:09 Dose: Not Given Clopidogrel Bisulfate (Plavix) 75 mg PO DAILY [facility] Last Admin: 03/29/17 11:13 Dose: 75 mg Cyanocobalamin (Vitamin B12 1000 Mcg Tab) 1,000 mcg PO DAILY [facility] Last Admin: 03/29/17 11:14 Dose: 1,000 mcg Ergocalciferol (Drisdol 50,000 Intl Units Cap) 1 cap PO Q7D [facility] Stop: 05/16/17 11:46 Last Admin: 03/28/17 14:27 Dose: 1 cap Gabapentin (Neurontin) 100 mg PO TID [facility] PRN Reason: Protocol Last Admin: 03/29/17 11:17 Dose: 100 mg Heparin Sodium (Porcine) (Heparin) 5,000 units SC Q12 [facility] PRN Reason: Protocol Last Admin: 03/29/17 11:14 Dose: 5,000 units Hydralazine HCl (Apresoline) 25 mg PO TID [facility] Last Admin: 03/29/17 11:09 Dose: Not Given Iron Sucrose 100 mg/ Sodium (Chloride) 105 mls @ 210 mls/hr IVPB DAILY [facility] Stop: 04/06/17 10:01 Last Admin: 03/28/17 14:35 Dose: 210 mls/hr Insulin Human Lispro (Humalog Med) 0 units SC ACHS [facility] PRN Reason: Protocol Last Admin: 03/29/17 13:19 Dose: 3 units Losartan Potassium (Cozaar) 100 mg PO DAILY [facility] Magnesium Oxide (Mag-Ox) 400 mg PO BID [facility] Stop: 03/30/17 12:31 Last Admin: 03/29/17 11:13 Dose: 400 mg Metoprolol Tartrate (Lopressor) 25 mg PO BRKDIN [facility] Ondansetron HCl (Zofran Inj) 4 mg IVP Q4H PRN PRN Reason: Nausea/Vomiting Last Admin: 03/25/17 23:48 Dose: 4 mg Pantoprazole Sodium (Protonix Ec Tab) 40 mg PO 0600 [facility] Last Admin: 03/29/17 05:49 Dose: 40 mg Vitamin B Complex/Vit C/Folic Acid (Nephro-Eleni) 1 tab PO 0800 [facility] Last Admin: 03/29/17 08:39 Dose: 1 tab - Labs Labs: 03/29/17 05:40 03/29/17 05:40 PT 11.4 Seconds (9.9-11.8) 03/25/17 12:55 INR 1.06 (0.93-1.08) 03/25/17 12:55 APTT 80.5 Seconds (23.7-30.8) H* 03/26/17 05:00
--- NOTE | 2017-03-29 19:53 | CP.PCM.PN ---
<Kayleigh Martinez - Last Filed: 03/30/17 21:16> Subjective - Date & Time of Evaluation Date of Evaluation: 03/29/17 Time of Evaluation: 19:52 - Subjective Subjective: Patient seen and examined at bedside. Patient slept well, no complaints, informs me he will be getting dialysis this afternoon and tomorrow. Objective - Vital Signs/Intake and Output Vital Signs (last 24 hours): Temp Pulse Resp BP Pulse Ox 97.1 F L 62 19 157/79 H 98 03/29/17 12:00 03/29/17 19:08 03/29/17 12:00 03/29/17 19:08 03/29/17 06:00 - Medications Medications: Current Medications Acetaminophen (Tylenol 325mg Tab) 650 mg PO Q6H PRN PRN Reason: Pain, moderate (4-7) Last Admin: 03/27/17 23:09 Dose: 650 mg Amlodipine Besylate (Norvasc) 10 mg PO DAILY [facility] Last Admin: 03/29/17 11:09 Dose: Not Given Atorvastatin Calcium (Lipitor) 40 mg PO DAILY [facility] Last Admin: 03/29/17 11:13 Dose: 40 mg Clonidine HCl (Catapres) 0.3 mg PO TID [facility] Last Admin: 03/29/17 19:08 Dose: 0.3 mg Clopidogrel Bisulfate (Plavix) 75 mg PO DAILY [facility] Last Admin: 03/29/17 11:13 Dose: 75 mg Cyanocobalamin (Vitamin B12 1000 Mcg Tab) 1,000 mcg PO DAILY [facility] Last Admin: 03/29/17 11:14 Dose: 1,000 mcg Ergocalciferol (Drisdol 50,000 Intl Units Cap) 1 cap PO Q7D [facility] Stop: 05/16/17 11:46 Last Admin: 03/28/17 14:27 Dose: 1 cap Gabapentin (Neurontin) 100 mg PO TID [facility] PRN Reason: Protocol Last Admin: 03/29/17 19:08 Dose: 100 mg Heparin Sodium (Porcine) (Heparin) 5,000 units SC Q12 [facility] PRN Reason: Protocol Last Admin: 03/29/17 11:14 Dose: 5,000 units Hydralazine HCl (Apresoline) 25 mg PO TID [facility] Last Admin: 03/29/17 19:07 Dose: 25 mg Iron Sucrose 100 mg/ Sodium (Chloride) 105 mls @ 210 mls/hr IVPB DAILY [facility] Stop: 04/06/17 10:01 Last Admin: 03/28/17 14:35 Dose: 210 mls/hr Insulin Human Lispro (Humalog Med) 0 units SC ACHS [facility] PRN Reason: Protocol Last Admin: 03/29/17 19:08 Dose: Not Given Losartan Potassium (Cozaar) 100 mg PO DAILY [facility] Magnesium Oxide (Mag-Ox) 400 mg PO BID [facility] Stop: 03/30/17 12:31 Last Admin: 03/29/17 19:08 Dose: 400 mg Metoprolol Tartrate (Lopressor) 25 mg PO BRKDIN [facility] Last Admin: 03/29/17 19:07 Dose: 25 mg Ondansetron HCl (Zofran Inj) 4 mg IVP Q4H PRN PRN Reason: Nausea/Vomiting Last Admin: 03/25/17 23:48 Dose: 4 mg Pantoprazole Sodium (Protonix Ec Tab) 40 mg PO 0600 [facility] Last Admin: 03/29/17 05:49 Dose: 40 mg Vitamin B Complex/Vit C/Folic Acid (Nephro-Eleni) 1 tab PO 0800 [facility] Last Admin: 03/29/17 08:39 Dose: 1 tab - Labs Labs: 03/29/17 05:40 03/29/17 05:40 PT 11.4 Seconds (9.9-11.8) 03/25/17 12:55 INR 1.06 (0.93-1.08) 03/25/17 12:55 APTT 80.5 Seconds (23.7-30.8) H* 03/26/17 05:00 - Constitutional Appears: Well, No Acute Distress - Head Exam Head Exam: ATRAUMATIC, NORMOCEPHALIC - Eye Exam Eye Exam: EOMI, Normal appearance - ENT Exam ENT Exam: Mucous Membranes Moist, Normal Oropharynx - Neck Exam Neck Exam: Normal Inspection - Respiratory Exam Respiratory Exam: Clear to Ausculation Bilateral, NORMAL BREATHING PATTERN. absent: Wheezes - Cardiovascular Exam Cardiovascular Exam: +S1, +S2 - Extremities Exam Additional comments: left foot partially amputated, no redness bilaterally - Neurological Exam Neurological Exam: Awake, Oriented x3 - Psychiatric Exam Psychiatric exam: Normal Affect, Normal Mood Assessment and Plan - Assessment and Plan (Free Text) Assessment: 56 year old male with past medical history of CAD s/p CABG, hypertension, diabetes and CVA who presented with altered mental status. He was found to have acute on chronic renal failure and rhabdomyolysis. He was also noted to have mildly elevated troponins in setting of renal failure. CT head showed chronic lacunar infarcts. Plan: 1) DM II - Humalog medium ISS 2) Hypertension - hydralazine - Clonidine - Metoprolol 5 mg IVP PRN 3) Dyslipidemia - Atorvastatin 40 mg 4) DVT prophylaxis Heparin 5000 units 5) AVF Vascular surgeon consulted 6) D/C planning with HD Schedule for TTS of next week HD 7) PT recommendations, will follow with you - <Jennifer Ritter - Last Filed: 03/31/17 07:05> Objective - Vital Signs/Intake and Output Vital Signs (last 24 hours): Temp Pulse Resp BP Pulse Ox 98 F 58 L 20 166/71 H 96 03/31/17 06:00 03/31/17 06:35 03/31/17 06:00 03/31/17 06:35 03/31/17 06:00 Intake and Output: 03/31/17 03/31/17 06:59 18:59 Intake Total 350 Output Total 600 Balance -250 - Medications Medications: Current Medications Acetaminophen (Tylenol 325mg Tab) 650 mg PO Q6H PRN PRN Reason: Pain, moderate (4-7) Last Admin: 03/27/17 23:09 Dose: 650 mg Amlodipine Besylate (Norvasc) 10 mg PO DAILY [facility] Last Admin: 03/30/17 13:57 Dose: 10 mg Atorvastatin Calcium (Lipitor) 40 mg PO DAILY [facility] Last Admin: 03/30/17 13:55 Dose: 40 mg Clonidine HCl (Catapres) 0.3 mg PO TID [facility] Last Admin: 03/30/17 17:32 Dose: 0.3 mg Clopidogrel Bisulfate (Plavix) 75 mg PO DAILY [facility] Last Admin: 03/30/17 13:57 Dose: 75 mg Cyanocobalamin (Vitamin B12 1000 Mcg Tab) 1,000 mcg PO DAILY [facility] Last Admin: 03/30/17 13:57 Dose: 1,000 mcg Ergocalciferol (Drisdol 50,000 Intl Units Cap) 1 cap PO Q7D [facility] Stop: 05/16/17 11:46 Last Admin: 03/28/17 14:27 Dose: 1 cap Gabapentin (Neurontin) 100 mg PO TID [facility] PRN Reason: Protocol Last Admin: 03/30/17 17:27 Dose: 100 mg Heparin Sodium (Porcine) (Heparin) 5,000 units SC Q12 [facility] PRN Reason: Protocol Last Admin: 03/30/17 22:29 Dose: 5,000 units Hydralazine HCl (Apresoline) 50 mg PO Q8 [facility] Last Admin: 03/31/17 06:35 Dose: 50 mg Iron Sucrose 100 mg/ Sodium (Chloride) 105 mls @ 210 mls/hr IVPB DAILY [facility] Stop: 04/06/17 10:01 Last Admin: 03/30/17 13:58 Dose: 210 mls/hr Insulin Human Lispro (Humalog Med) 0 units SC ACHS [facility] PRN Reason: Protocol Last Admin: 03/30/17 22:16 Dose: Not Given Losartan Potassium (Cozaar) 100 mg PO DAILY [facility] Last Admin: 03/30/17 13:57 Dose: 100 mg Metoprolol Tartrate (Lopressor) 25 mg PO BRKDIN [facility] Last Admin: 03/30/17 17:27 Dose: 25 mg Ondansetron HCl (Zofran Inj) 4 mg IVP Q4H PRN PRN Reason: Nausea/Vomiting Last Admin: 03/25/17 23:48 Dose: 4 mg Oxycodone/Acetaminophen (Percocet 5/325 Mg Tab) 1 tab PO Q6H PRN PRN Reason: Pain, severe (8-10) Stop: 04/02/17 16:11 Last Admin: 03/30/17 22:28 Dose: 1 tab Pantoprazole Sodium (Protonix Ec Tab) 40 mg PO 0600 [facility] Last Admin: 03/31/17 06:35 Dose: 40 mg Vitamin B Complex/Vit C/Folic Acid (Nephro-Eleni) 1 tab PO 0800 [facility] Last Admin: 03/30/17 08:48 Dose: 1 tab - Labs Labs: 03/31/17 05:20 03/30/17 04:30 PT 11.4 Seconds (9.9-11.8) 03/25/17 12:55 INR 1.06 (0.93-1.08) 03/25/17 12:55 APTT 80.5 Seconds (23.7-30.8) H* 03/26/17 05:00 Attending/Attestation - Attestation I have personally seen and examined this patient.: Yes I have fully participated in the care of the patient.: Yes I have reviewed all pertinent clinical information, including history, physical exam and plan: Yes Notes (Text): 03/29/17 56 year old male with past medical history of CAD s/p CABG, hypertension, diabetes and CVA who presented with altered mental status. He was found to have acute on chronic renal failure and rhabdomyolysis. He was also noted to have mildly elevated troponins in setting of renal failure. CT head showed chronic lacunar infarcts. He is currently on clonidine, cozaar, hydralazine and norvasc. He is on plavix and statin. Echocardiogram and doppler studies were reviewed. He is being followed by nephrology and cardiology. He is s/p permacath and started on dialysis. Vascular surgery is also following for evaluation of AVF. PT evaluation was appreciated. Jennifer Ritter MD Hospitalist.
[2017-03-29] MEDS ORDERED: Oxycodone/Acetaminophen 5/325 mg Tab PO STA (21:14)
[2017-03-30] MEDS: Pantoprazole 40 mg EC Tab PO SCH (04:59)
[2017-03-30 05:36] LABS: BASO # 0.01 K/mm3 (0.0-2.0); BASO % 0.2 % (0.0-3.0); EOS # 0.1 (0.0-0.7); EOS % 2.4 % (1.5-5.0); GRAN # 3.07 (1.4-6.5); HEMOGLOBIN 9.3 gm/dL (14.0-18.0); LYMPH # 1.4 (1.2-3.4); LYMPH % 28.4 % (22.0-35.0); MEAN CELL VOLUME 80.1 fL (80.0-105.0); MEAN CORPUSCULAR HEMOGLOBIN 26.4 pg (25.0-35.0); MEAN PLATELET VOLUME 12.3 fl (7.0-11.0); MONO # 0.4 (0.1-0.6); PLATELET COUNT 166 10^3/uL (120.0-450.0); RBC 3.52 10^6/uL (3.5-6.1); RED CELL DISTRIBUTION WIDTH 14.8 % (11.5-14.5)
[2017-03-30 05:58] LABS: CALCIUM 7.3 mg/dL (8.4-10.5)
[2017-03-30] MEDS: Insulin Lispro (humaLOG) MEDIUM Coverage SC SCH ×4 (08:39→22:16)
[2017-03-30] MEDS: Multivitamin Vitamin B Complex (Nephro-Vite) Tab PO SCH (08:48)
--- NOTE | 2017-03-30 10:30 | CP.PCM.PN ---
Subjective - Date & Time of Evaluation Date of Evaluation: 03/30/17 Time of Evaluation: 10:27 - Subjective Subjective: Follow up Nephrology Consultation Note Assessment: stable Acute Kidney Injury (N17.9) versus progressive CKD stage 5, Likely ESRD now started HD 03/28/2017 Uncontrolled severe HTN with emergency, Altered mental status (toxic metabolic encephalopathy): improved Diabetic chronic Kidney Disease (E11.22) Hypertensive Chronic Kidney Disease (I12.9) hx of Chronic Kidney Disease (N18.4) Stage 4 with 7 gram proteinuria (R80.9), nephrotic syndrome likely due to diabetes in 2016 Anemia (D64.9) (TSAT 34% Ferritin 67), Hyperphosphatemia (E83.39), HTN (I12.9), hypomagnesemia, hypokalemia, metabolic acidosis, Vit D (<12.8) and B12 (270) defeciency and secondary hyperparathyroidism (PTH 396) active marijuana smoker, ex etoh abuse Non-compliant to medications and Follow up CAD sp CABG Plan HD today via permacath. next HD tomorrow and then can be d/c from renal perspective. Pt will start outpt HD next monday 2 PM as TTS schedule appreciate vascular surgery eval for AVF. Avoid phlebotomy in Rt upper extremity. Hypertension control with meds as ordered. would like to taper off clonidine due to risk of rebound HTN with his compliance issues but his BP too high at this time. on max dose losartan and norvasc. also on lopressor. Increased hydralazine supplement electrolytes as needed. continue with weekly vit D x 8 doses, b12 po daily and nephrovite 1/day also load with IV iron 100 mg x 10 doses d/c martinez at the earliest. Dose meds/antibiotics for reduced GFR<10. Avoid fleets enema/magnesium based laxatives. Avoid nephrotoxins/NSAIDs/ iodinated contrast (unless needed emergently) Glycemic control. renal diet Further work up for as per primary team. SW for outpt HD placement Thanks for allowing me to participate in care of your patient. Will follow patient with you. Please call if any Qs. d/w team Dr Sancho Garrett Office: [phone] Subjective: Noted events overnight. feels okay. Denies chest pain, palpitation, leg swelling. No urinary complaints. denies nausea/vomitting. smokes THC but denies Etoh or tobacco. he mostly uses walker or wheelchair for ambulation. 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 Vitals reviewed and noted as below Lungs: Normal respiratory rate/effort. Breath sounds bilateral equal and clear Heart: Normal rate. s1s2 normal. No rub or gallop. Extremities: no edema. s/p Rt forefoot amputation. has left heel ulcer Neurological: Patient is alert, awake and oriented to person, place and time. No focal deficit. Strength bilateral appropriate and equal. Skin: Warm and dry. Normal turgor. No rash. Palpitation: Normal elasticity for age Abdomen: Abdomen is soft. Bowel sounds +. There is no abdominal tenderness, no guarding/rigidity or organomegaly : kidney or bladder not palpable. has martinez + Access: Rt chest permacath Labs/imaging reviewed. Past medical history, past surgical history, family history, social history, allergy reviewed work up; in 2016; normal complements, and neg MARY, neg Hep B/C CT abdomen this admission: unremarkable for kidney/adrenals Objective - Vital Signs/Intake and Output Vital Signs (last 24 hours): Temp Pulse Resp BP Pulse Ox 97.8 F 52 L 20 162/60 H 97 03/30/17 06:00 03/30/17 09:30 03/30/17 06:00 03/30/17 09:14 03/30/17 06:00 Intake and Output: 03/30/17 03/30/17 06:59 18:59 Intake Total 940 Output Total 0 Balance 940 - Medications Medications: Current Medications Acetaminophen (Tylenol 325mg Tab) 650 mg PO Q6H PRN PRN Reason: Pain, moderate (4-7) Last Admin: 03/27/17 23:09 Dose: 650 mg Amlodipine Besylate (Norvasc) 10 mg PO DAILY [facility] Last Admin: 03/29/17 11:09 Dose: Not Given Atorvastatin Calcium (Lipitor) 40 mg PO DAILY [facility] Last Admin: 03/29/17 11:13 Dose: 40 mg Clonidine HCl (Catapres) 0.3 mg PO TID [facility] Last Admin: 03/30/17 05:50 Dose: 0.3 mg Clopidogrel Bisulfate (Plavix) 75 mg PO DAILY [facility] Last Admin: 03/29/17 11:13 Dose: 75 mg Cyanocobalamin (Vitamin B12 1000 Mcg Tab) 1,000 mcg PO DAILY [facility] Last Admin: 03/29/17 11:14 Dose: 1,000 mcg Ergocalciferol (Drisdol 50,000 Intl Units Cap) 1 cap PO Q7D [facility] Stop: 05/16/17 11:46 Last Admin: 03/28/17 14:27 Dose: 1 cap Gabapentin (Neurontin) 100 mg PO TID [facility] PRN Reason: Protocol Last Admin: 03/29/17 19:08 Dose: 100 mg Heparin Sodium (Porcine) (Heparin) 5,000 units SC Q12 [facility] PRN Reason: Protocol Last Admin: 03/29/17 21:36 Dose: 5,000 units Hydralazine HCl (Apresoline) 50 mg PO Q8 [facility] Iron Sucrose 100 mg/ Sodium (Chloride) 105 mls @ 210 mls/hr IVPB DAILY [facility] Stop: 04/06/17 10:01 Last Admin: 03/29/17 20:16 Dose: 210 mls/hr Insulin Human Lispro (Humalog Med) 0 units SC ACHS [facility] PRN Reason: Protocol Last Admin: 03/30/17 08:39 Dose: Not Given Losartan Potassium (Cozaar) 100 mg PO DAILY [facility] Magnesium Oxide (Mag-Ox) 400 mg PO BID [facility] Stop: 03/30/17 12:31 Last Admin: 03/29/17 19:08 Dose: 400 mg Metoprolol Tartrate (Lopressor) 25 mg PO BRKDIN [facility] Last Admin: 03/30/17 09:14 Dose: Not Given Ondansetron HCl (Zofran Inj) 4 mg IVP Q4H PRN PRN Reason: Nausea/Vomiting Last Admin: 03/25/17 23:48 Dose: 4 mg Pantoprazole Sodium (Protonix Ec Tab) 40 mg PO 0600 [facility] Last Admin: 03/30/17 04:59 Dose: 40 mg Vitamin B Complex/Vit C/Folic Acid (Nephro-Eleni) 1 tab PO 0800 [facility] Last Admin: 03/30/17 08:48 Dose: 1 tab - Labs Labs: 03/30/17 04:30 03/30/17 04:30 PT 11.4 Seconds (9.9-11.8) 03/25/17 12:55 INR 1.06 (0.93-1.08) 03/25/17 12:55 APTT 80.5 Seconds (23.7-30.8) H* 03/26/17 05:00
[2017-03-30] MEDS: Magnesium Oxide 400 mg Tab UD PO SCH (13:56)
[2017-03-30] MEDS: Oxycodone/Acetaminophen 5/325 mg Tab PO PRN ×2 (16:35→22:28)
[2017-03-31 06:24] LABS: BASO # 0.04 K/mm3 (0.0-2.0); BASO % 0.8 % (0.0-3.0); EOS # 0.2 (0.0-0.7); EOS % 4.1 % (1.5-5.0); GRAN # 2.73 (1.4-6.5); GRAN % 55.9 % (50.0-68.0); HEMOGLOBIN 9.3 gm/dL (14.0-18.0); LYMPH # 1.4 (1.2-3.4); MEAN CORPUSCULAR HGB CONC 32.1 g/dl (31.0-37.0); MEAN PLATELET VOLUME 12.3 fl (7.0-11.0); MONO # 0.5 (0.1-0.6); MONO % 10.2 % (1.0-6.0); PLATELET COUNT 173 10^3/uL (120.0-450.0); RBC 3.58 10^6/uL (3.5-6.1); RED CELL DISTRIBUTION WIDTH 14.7 % (11.5-14.5); WHITE BLOOD COUNT 4.9 10^3/ul (4.5-11.0)
[2017-03-31] MEDS: Pantoprazole 40 mg EC Tab PO SCH (06:35)
[2017-03-31 07:17] LABS: CALCIUM 7.8 mg/dL (8.4-10.5)
[2017-03-31] MEDS: Insulin Lispro (humaLOG) MEDIUM Coverage SC SCH ×4 (08:15→22:17)
[2017-03-31] MEDS: Multivitamin Vitamin B Complex (Nephro-Vite) Tab PO SCH (08:15)
[2017-03-31] MEDS: Oxycodone/Acetaminophen 5/325 mg Tab PO PRN ×3 (08:18→22:46)
--- NOTE | 2017-03-31 14:09 | CP.PCM.PN ---
Subjective - Date & Time of Evaluation Date of Evaluation: 03/31/17 Time of Evaluation: 14:07 - Subjective Subjective: Follow up Nephrology Consultation Note Assessment: stable Acute Kidney Injury (N17.9) versus progressive CKD stage 5, Likely ESRD now started HD 03/28/2017 Uncontrolled severe HTN with emergency, Altered mental status (toxic metabolic encephalopathy): improved Diabetic chronic Kidney Disease (E11.22) Hypertensive Chronic Kidney Disease (I12.9) hx of Chronic Kidney Disease (N18.4) Stage 4 with 7 gram proteinuria (R80.9), nephrotic syndrome likely due to diabetes in 2016 Anemia (D64.9) (TSAT 34% Ferritin 67), Hyperphosphatemia (E83.39), HTN (I12.9), hypomagnesemia, hypokalemia, metabolic acidosis, Vit D (<12.8) and B12 (270) defeciency and secondary hyperparathyroidism (PTH 396) active marijuana smoker, ex etoh abuse Non-compliant to medications and Follow up CAD sp CABG Plan HD today 4th session and then can be d/c from renal perspective. Pt will start outpt HD next monday 2 PM as TTS schedule appreciate vascular surgery eval for AVF. Avoid phlebotomy in Rt upper extremity. Hypertension control with meds as ordered. on max dose losartan and norvasc. also on lopressor. Increased hydralazine. on clonidine supplement electrolytes as needed. continue with weekly vit D x 8 doses, b12 po daily and nephrovite 1/day load with IV iron 100 mg x 10 doses Dose meds/antibiotics for reduced GFR<10. Avoid fleets enema/magnesium based laxatives. Avoid nephrotoxins/NSAIDs/ iodinated contrast (unless needed emergently) Glycemic control. renal diet Further work up for as per primary team. SW for outpt HD placement Thanks for allowing me to participate in care of your patient. Will follow patient with you. Please call if any Qs. d/w team Dr Sancho Garrett Office: [phone] Subjective: Noted events overnight. feels okay. Denies chest pain, palpitation, leg swelling. No urinary complaints. denies nausea/vomitting. c/o itching around catheter site. smokes THC but denies Etoh or tobacco. he mostly uses walker or wheelchair for ambulation. 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 Vitals reviewed and noted as below Lungs: Normal respiratory rate/effort. Breath sounds bilateral equal and clear Heart: Normal rate. s1s2 normal. No rub or gallop. Extremities: no edema. s/p Rt forefoot amputation. has left heel ulcer Neurological: Patient is alert, awake and oriented to person, place and time. No focal deficit. Strength bilateral appropriate and equal. Skin: Warm and dry. Normal turgor. No rash. Palpitation: Normal elasticity for age Abdomen: Abdomen is soft. Bowel sounds +. There is no abdominal tenderness, no guarding/rigidity or organomegaly : kidney or bladder not palpable. Access: Rt chest permacath Labs/imaging reviewed. Past medical history, past surgical history, family history, social history, allergy reviewed work up; in 2016; normal complements, and neg MARY, neg Hep B/C CT abdomen this admission: unremarkable for kidney/adrenals Objective - Vital Signs/Intake and Output Vital Signs (last 24 hours): Temp Pulse Resp BP Pulse Ox 98 F 58 L 20 166/71 H 96 03/31/17 06:00 03/31/17 06:35 03/31/17 06:00 03/31/17 06:35 03/31/17 06:00 Intake and Output: 03/31/17 03/31/17 06:59 18:59 Intake Total 350 Output Total 600 Balance -250 - Medications Medications: Current Medications Acetaminophen (Tylenol 325mg Tab) 650 mg PO Q6H PRN PRN Reason: Pain, moderate (4-7) Last Admin: 03/27/17 23:09 Dose: 650 mg Amlodipine Besylate (Norvasc) 10 mg PO DAILY [facility] Last Admin: 03/30/17 13:57 Dose: 10 mg Atorvastatin Calcium (Lipitor) 40 mg PO DAILY [facility] Last Admin: 03/30/17 13:55 Dose: 40 mg Clonidine HCl (Catapres) 0.3 mg PO TID [facility] Last Admin: 03/31/17 09:21 Dose: Not Given Clopidogrel Bisulfate (Plavix) 75 mg PO DAILY [facility] Last Admin: 03/31/17 09:22 Dose: 75 mg Cyanocobalamin (Vitamin B12 1000 Mcg Tab) 1,000 mcg PO DAILY [facility] Last Admin: 03/30/17 13:57 Dose: 1,000 mcg Ergocalciferol (Drisdol 50,000 Intl Units Cap) 1 cap PO Q7D [facility] Stop: 05/16/17 11:46 Last Admin: 03/28/17 14:27 Dose: 1 cap Gabapentin (Neurontin) 100 mg PO TID [facility] PRN Reason: Protocol Last Admin: 03/31/17 09:22 Dose: Not Given Heparin Sodium (Porcine) (Heparin) 5,000 units SC Q12 [facility] PRN Reason: Protocol Last Admin: 03/31/17 09:21 Dose: 5,000 units Hydralazine HCl (Apresoline) 50 mg PO Q8 [facility] Last Admin: 03/31/17 06:35 Dose: 50 mg Iron Sucrose 100 mg/ Sodium (Chloride) 105 mls @ 210 mls/hr IVPB DAILY [facility] Stop: 04/06/17 10:01 Last Admin: 03/31/17 09:22 Dose: 210 mls/hr Insulin Human Lispro (Humalog Med) 0 units SC ACHS [facility] PRN Reason: Protocol Last Admin: 03/31/17 11:31 Dose: Not Given Losartan Potassium (Cozaar) 100 mg PO DAILY [facility] Last Admin: 03/30/17 13:57 Dose: 100 mg Metoprolol Tartrate (Lopressor) 25 mg PO BRKDIN [facility] Last Admin: 03/31/17 08:12 Dose: Not Given Ondansetron HCl (Zofran Inj) 4 mg IVP Q4H PRN PRN Reason: Nausea/Vomiting Last Admin: 03/25/17 23:48 Dose: 4 mg Oxycodone/Acetaminophen (Percocet 5/325 Mg Tab) 1 tab PO Q6H PRN PRN Reason: Pain, severe (8-10) Stop: 04/02/17 16:11 Last Admin: 03/31/17 08:18 Dose: 1 tab Pantoprazole Sodium (Protonix Ec Tab) 40 mg PO 0600 [facility] Last Admin: 03/31/17 06:35 Dose: 40 mg Vitamin B Complex/Vit C/Folic Acid (Nephro-Eleni) 1 tab PO 0800 [facility] Last Admin: 03/31/17 08:15 Dose: 1 tab - Labs Labs: 03/31/17 05:20 03/31/17 05:00 PT 11.4 Seconds (9.9-11.8) 03/25/17 12:55 INR 1.06 (0.93-1.08) 03/25/17 12:55 APTT 80.5 Seconds (23.7-30.8) H* 03/26/17 05:00
--- NOTE | 2017-03-31 15:47 | CP.PCM.PN ---
<Kayleigh Martinez - Last Filed: 04/01/17 23:09> Subjective - Date & Time of Evaluation Date of Evaluation: 03/30/17 Time of Evaluation: 09:00 - Subjective Subjective: Kayleigh Martinez D.O. PGY-1, Internal Medicine, Dr. Ritter Service Patient seen and examined at bedside. Nurse reports no events overnight. Patient denies chest pain, SOB, N/V/D. Objective - Vital Signs/Intake and Output Vital Signs (last 24 hours): Temp Pulse Resp BP Pulse Ox 98 F 59 L 20 143/69 96 03/31/17 06:00 03/31/17 15:37 03/31/17 06:00 03/31/17 15:37 03/31/17 06:00 Intake and Output: 03/31/17 03/31/17 06:59 18:59 Intake Total 350 Output Total 600 Balance -250 - Medications Medications: Current Medications Acetaminophen (Tylenol 325mg Tab) 650 mg PO Q6H PRN PRN Reason: Pain, moderate (4-7) Last Admin: 03/27/17 23:09 Dose: 650 mg Amlodipine Besylate (Norvasc) [address] [facility] Last Admin: 03/31/17 15:25 Dose: 10 mg Atorvastatin Calcium (Lipitor) [address] [facility] Last Admin: 03/31/17 15:24 Dose: 40 mg Clonidine HCl (Catapres) 0.[address] [facility] Last Admin: 03/31/17 15:25 Dose: 0.3 mg Clopidogrel Bisulfate (Plavix) [address] [facility] Last Admin: 03/31/17 09:22 Dose: 75 mg Cyanocobalamin (Vitamin B12 1000 Mcg Tab) 1,[address] [facility] Last Admin: 03/31/17 15:37 Dose: 1,000 mcg Ergocalciferol (Drisdol 50,000 Intl Units Cap) [address] [facility] Stop: 05/16/17 11:46 Last Admin: 03/28/17 14:27 Dose: 1 cap Gabapentin (Neurontin) [address] [facility] PRN Reason: Protocol Last Admin: 03/31/17 15:24 Dose: 100 mg Heparin Sodium (Porcine) (Heparin) 5,000 units SC Q12 [facility] PRN Reason: Protocol Last Admin: 03/31/17 09:21 Dose: 5,000 units Hydralazine HCl (Apresoline) [address] [facility] Last Admin: 03/31/17 15:37 Dose: 50 mg Iron Sucrose 100 mg/ Sodium (Chloride) 105 mls @ 210 mls/hr IVPB DAILY [facility] Stop: 04/06/17 10:01 Last Admin: 03/31/17 09:22 Dose: 210 mls/hr Insulin Human Lispro (Humalog Med) [address] [facility] PRN Reason: Protocol Last Admin: 03/31/17 11:31 Dose: Not Given Losartan Potassium (Cozaar) [address] [facility] Last Admin: 03/31/17 15:24 Dose: 100 mg Metoprolol Tartrate (Lopressor) [address] [facility] Last Admin: 03/31/17 08:12 Dose: Not Given Ondansetron HCl (Zofran Inj) 4 mg IVP Q4H PRN PRN Reason: Nausea/Vomiting Last Admin: 03/25/17 23:48 Dose: 4 mg Oxycodone/Acetaminophen (Percocet 5/325 Mg Tab) 1 tab PO Q6H PRN PRN Reason: Pain, severe (8-10) Stop: 04/02/17 16:11 Last Admin: 03/31/17 15:28 Dose: 1 tab Pantoprazole Sodium (Protonix Ec Tab) [address] [facility] Last Admin: 03/31/17 06:35 Dose: 40 mg Vitamin B Complex/Vit C/Folic Acid (Nephro-Eleni) [address] [facility] Last Admin: 03/31/17 08:15 Dose: 1 tab - Labs Labs: 03/31/17 05:20 03/31/17 05:00 PT 11.4 Seconds (9.9-11.8) 03/25/17 12:55 INR 1.06 (0.93-1.08) 03/25/17 12:55 APTT 80.5 Seconds (23.7-30.8) H* 03/26/17 05:00 - Constitutional Appears: Non-toxic, No Acute Distress, Older Than Stated Age - Head Exam Head Exam: ATRAUMATIC, NORMOCEPHALIC - Eye Exam Eye Exam: EOMI, Normal appearance, PERRL Pupil Exam: NORMAL ACCOMODATION, PERRL - ENT Exam ENT Exam: Mucous Membranes Moist, Normal Oropharynx - Neck Exam Neck Exam: Normal Inspection. absent: Tenderness, Thyromegaly - Respiratory Exam Respiratory Exam: Clear to Ausculation Bilateral. absent: Accessory Muscle Use , Wheezes - Cardiovascular Exam Cardiovascular Exam: REGULAR RHYTHM, +S1, +S2 - GI/Abdominal Exam GI & Abdominal Exam: Soft, Normal Bowel Sounds. absent: Rigid, Rebound - Rectal Exam Rectal Exam: Deferred - Extremities Exam Additional comments: right foot partially amputated - Back Exam Back Exam: NORMAL INSPECTION. absent: paraspinal tenderness - Neurological Exam Neurological Exam: Alert, Awake, CN II-XII Intact, Oriented x3 - Psychiatric Exam Psychiatric exam: Normal Affect, Normal Mood - Skin Skin Exam: Intact Assessment and Plan - Assessment and Plan (Free Text) Assessment: 56 year old male with past medical history of CAD s/p CABG, hypertension, diabetes and CVA who presented with altered mental status. He was found to have acute on chronic renal failure and rhabdomyolysis. He was also noted to have mildly elevated troponins in setting of renal failure. CT head showed chronic lacunar infarcts. Plan: 1) DM II - Humalog medium ISS 2) Hypertension - hydralazine - Clonidine - Metoprolol 5 mg IVP PRN 3) Dyslipidemia - Atorvastatin 40 mg 4) DVT prophylaxis Heparin 5000 units 5) AVF Vascular surgeon consulted 6) D/C planning with HD Schedule for TTS of next week HD 7) PT recommendations, will follow with you <Jennifer Ritter - Last Filed: 04/03/17 08:39> Objective - Vital Signs/Intake and Output Vital Signs (last 24 hours): Temp Pulse Resp BP Pulse Ox 98 F 110 H 18 145/75 98 04/01/17 17:25 04/01/17 17:25 04/01/17 17:25 04/01/17 17:25 04/01/17 17:25 - Labs Labs: 03/31/17 05:20 03/31/17 05:00 PT 11.4 Seconds (9.9-11.8) 03/25/17 12:55 INR 1.06 (0.93-1.08) 03/25/17 12:55 APTT 80.5 Seconds (23.7-30.8) H* 03/26/17 05:00 Attending/Attestation - Attestation I have personally seen and examined this patient.: Yes I have fully participated in the care of the patient.: Yes I have reviewed all pertinent clinical information, including history, physical exam and plan: Yes Notes (Text): 04/03/17 08:38 Progness note for 03/30/17 56 year old male with past medical history of CAD s/p CABG, hypertension, diabetes and CVA who presented with altered mental status. He was found to have acute on chronic renal failure and rhabdomyolysis. He was also noted to have mildly elevated troponins in setting of renal failure. CT head showed chronic lacunar infarcts. He is currently on clonidine, cozaar, hydralazine and norvasc. He is on plavix and statin. Echocardiogram and doppler studies were reviewed. He is being followed by nephrology and cardiology. He is tolerating dialysis. Vascular surgery is also following for evaluation of AVF. Case was discussed with nephrology regarding d/c planning soon. Jennifer Ritter MD Hospitalist.
--- NOTE | 2017-03-31 15:48 | CP.PCM.PN ---
<Kayleigh Martinez - Last Filed: 04/01/17 23:22> Subjective - Date & Time of Evaluation Date of Evaluation: 03/31/17 Time of Evaluation: 10:00 - Subjective Subjective: Kayleigh Martinez D.O. PGY-1, Internal Medicine, Dr. Ritter Service Patient seen and examined at bedside. Nurse reports no events overnight. Patient denies CP, SOB, N/V/D. Objective - Vital Signs/Intake and Output Vital Signs (last 24 hours): Temp Pulse Resp BP Pulse Ox 98 F 59 L 20 143/69 96 03/31/17 06:00 03/31/17 15:37 03/31/17 06:00 03/31/17 15:37 03/31/17 06:00 Intake and Output: 03/31/17 03/31/17 06:59 18:59 Intake Total 350 Output Total 600 Balance -250 - Medications Medications: Current Medications Acetaminophen (Tylenol 325mg Tab) 650 mg PO Q6H PRN PRN Reason: Pain, moderate (4-7) Last Admin: 03/27/17 23:09 Dose: 650 mg Amlodipine Besylate (Norvasc) 10 mg PO DAILY [facility] Last Admin: 03/31/17 15:25 Dose: 10 mg Atorvastatin Calcium (Lipitor) 40 mg PO DAILY [facility] Last Admin: 03/31/17 15:24 Dose: 40 mg Clonidine HCl (Catapres) 0.3 mg PO TID [facility] Last Admin: 03/31/17 15:25 Dose: 0.3 mg Clopidogrel Bisulfate (Plavix) 75 mg PO DAILY [facility] Last Admin: 03/31/17 09:22 Dose: 75 mg Cyanocobalamin (Vitamin B12 1000 Mcg Tab) 1,000 mcg PO DAILY [facility] Last Admin: 03/31/17 15:37 Dose: 1,000 mcg Ergocalciferol (Drisdol 50,000 Intl Units Cap) 1 cap PO Q7D [facility] Stop: 05/16/17 11:46 Last Admin: 03/28/17 14:27 Dose: 1 cap Gabapentin (Neurontin) 100 mg PO TID [facility] PRN Reason: Protocol Last Admin: 03/31/17 15:24 Dose: 100 mg Heparin Sodium (Porcine) (Heparin) 5,000 units SC Q12 [facility] PRN Reason: Protocol Last Admin: 03/31/17 09:21 Dose: 5,000 units Hydralazine HCl (Apresoline) 50 mg PO Q8 [facility] Last Admin: 03/31/17 15:37 Dose: 50 mg Iron Sucrose 100 mg/ Sodium (Chloride) 105 mls @ 210 mls/hr IVPB DAILY [facility] Stop: 04/06/17 10:01 Last Admin: 03/31/17 09:22 Dose: 210 mls/hr Insulin Human Lispro (Humalog Med) 0 units SC ACHS [facility] PRN Reason: Protocol Last Admin: 03/31/17 11:31 Dose: Not Given Losartan Potassium (Cozaar) 100 mg PO DAILY [facility] Last Admin: 03/31/17 15:24 Dose: 100 mg Metoprolol Tartrate (Lopressor) 25 mg PO BRKDIN [facility] Last Admin: 03/31/17 08:12 Dose: Not Given Ondansetron HCl (Zofran Inj) 4 mg IVP Q4H PRN PRN Reason: Nausea/Vomiting Last Admin: 03/25/17 23:48 Dose: 4 mg Oxycodone/Acetaminophen (Percocet 5/325 Mg Tab) 1 tab PO Q6H PRN PRN Reason: Pain, severe (8-10) Stop: 04/02/17 16:11 Last Admin: 03/31/17 15:28 Dose: 1 tab Pantoprazole Sodium (Protonix Ec Tab) 40 mg PO 0600 [facility] Last Admin: 03/31/17 06:35 Dose: 40 mg Vitamin B Complex/Vit C/Folic Acid (Nephro-Eleni) 1 tab PO 0800 [facility] Last Admin: 03/31/17 08:15 Dose: 1 tab - Labs Labs: 03/31/17 05:20 03/31/17 05:00 PT 11.4 Seconds (9.9-11.8) 03/25/17 12:55 INR 1.06 (0.93-1.08) 03/25/17 12:55 APTT 80.5 Seconds (23.7-30.8) H* 03/26/17 05:00 - Constitutional Appears: Non-toxic, No Acute Distress, Older Than Stated Age - Head Exam Head Exam: ATRAUMATIC, NORMOCEPHALIC - Eye Exam Eye Exam: EOMI, Normal appearance Pupil Exam: PERRL - ENT Exam ENT Exam: Mucous Membranes Moist, Normal Oropharynx - Neck Exam Neck Exam: Normal Inspection - Respiratory Exam Respiratory Exam: Clear to Ausculation Bilateral. absent: Rales, Wheezes - Cardiovascular Exam Cardiovascular Exam: RRR, +S1, +S2 - GI/Abdominal Exam GI & Abdominal Exam: Soft, Normal Bowel Sounds - Rectal Exam Rectal Exam: Deferred - Extremities Exam Additional comments: right foot partially amputated - Neurological Exam Neurological Exam: Alert, Awake, CN II-XII Intact, Oriented x3 - Psychiatric Exam Psychiatric exam: Normal Affect, Normal Mood Assessment and Plan - Assessment and Plan (Free Text) Assessment: Assessment: 56 year old male with past medical history of CAD s/p CABG, hypertension, diabetes and CVA who presented with altered mental status. He was found to have acute on chronic renal failure and rhabdomyolysis. He was also noted to have mildly elevated troponins in setting of renal failure. CT head showed chronic lacunar infarcts. Plan: 1) DM II - Humalog medium ISS 2) Hypertension - hydralazine increased to 50 mg TID - Clonidine 0.3 mg TID - Cozaar 100 3) Dyslipidemia - Atorvastatin 40 mg 4) DVT prophylaxis Heparin 5000 units 5) AVF Vascular surgeon consulted, Dr. Martinez 6) D/C planning with HD Schedule for TTS of next week HD, D/c planning done with done with care team <Jennifer Ritter - Last Filed: 04/03/17 08:41> Objective - Vital Signs/Intake and Output Vital Signs (last 24 hours): Temp Pulse Resp BP Pulse Ox 98 F 110 H 18 145/75 98 04/01/17 17:25 04/01/17 17:25 04/01/17 17:25 04/01/17 17:25 04/01/17 17:25 - Labs Labs: 03/31/17 05:20 03/31/17 05:00 PT 11.4 Seconds (9.9-11.8) 03/25/17 12:55 INR 1.06 (0.93-1.08) 03/25/17 12:55 APTT 80.5 Seconds (23.7-30.8) H* 03/26/17 05:00 Attending/Attestation - Attestation I have personally seen and examined this patient.: Yes I have fully participated in the care of the patient.: Yes I have reviewed all pertinent clinical information, including history, physical exam and plan: Yes Notes (Text): 04/03/17 08:39 Progness Note for 03/31/17 56 year old male with past medical history of CAD s/p CABG, hypertension, diabetes and CVA who presented with altered mental status. He was found to have acute on chronic renal failure and rhabdomyolysis. He was also noted to have mildly elevated troponins in setting of renal failure. CT head showed chronic lacunar infarcts. He is currently on clonidine, cozaar, hydralazine and norvasc. He is also on plavix and statin. Echocardiogram and doppler studies were reviewed. He is s/p portacath and getting dialysis. Vascular surgery is also following for evaluation of AVF and has requested for clearance for procedure. Will request for cardiology follow up for clearance. D/c planning home likely tomorrow. Jennifer Ritter MD Hospitalist.
[2017-03-31 16:58] VITALS: RESP 18
[2017-04-01] MEDS: Pantoprazole 40 mg EC Tab PO SCH (06:02)
[2017-04-01] MEDS: Oxycodone/Acetaminophen 5/325 mg Tab PO PRN ×2 (06:05→10:59)
[2017-04-01] MEDS: Multivitamin Vitamin B Complex (Nephro-Vite) Tab PO SCH (08:09)
[2017-04-01] MEDS: Insulin Lispro (humaLOG) MEDIUM Coverage SC SCH ×3 (08:13→17:42)
[2017-04-01 17:03] VITALS: BP 145/75; PULSE 110
[2017-04-01 17:26] VITALS: TEMP 98; O2SAT 98
--- NOTE | 2017-04-01 23:36 | CP.PCM.DIS ---
<Kayleigh Martinez - Last Filed: 04/01/17 23:45> Provider - Provider Date of Admission: 03/25/17 16:08 Attending physician: Jennifer Ritter MD Primary care physician: Corona Ward MD Consults: Harp[place]ole-Cardio Tami-nephro [place]agar-Neuro Palcheck-vascular Time Spent in preparation of Discharge (in minutes): 39 Hospital Course - Lab Results Lab Results: Micro Results 03/25/17 19:00 Nose MRSA Culture (Admit) - Final MRSA NOT DETECTED Most Recent Lab Values WBC 4.9 10^3/ul (4.5-11.0) 03/31/17 05:20 RBC 3.58 10^6/uL (3.5-6.1) 03/31/17 05:20 Hgb 9.3 gm/dL (14.0-18.0) L 03/31/17 05:20 Hct 29.0 % (42.0-52.0) L 03/31/17 05:20 MCV 81.0 fL (80.0-105.0) 03/31/17 05:20 MCH 26.0 pg (25.0-35.0) 03/31/17 05:20 MCHC 32.1 g/dl (31.0-37.0) 03/31/17 05:20 RDW 14.7 % (11.5-14.5) H 03/31/17 05:20 Plt Count 173 10^3/uL (120.0-450.0) 03/31/17 05:20 MPV 12.3 fl (7.0-11.0) H 03/31/17 05:20 Gran % 55.9 % (50.0-68.0) 03/31/17 05:20 Lymph % (Auto) 29.0 % (22.0-35.0) 03/31/17 05:20 [place] % (Auto) 10.2 % (1.0-6.0) H 03/31/17 05:20 Eos % (Auto) 4.1 % (1.5-5.0) 03/31/17 05:20 Baso % (Auto) 0.8 % (0.0-3.0) 03/31/17 05:20 Gran # 2.73 (1.4-6.5) 03/31/17 05:20 Lymph # 1.4 (1.2-3.4) 03/31/17 05:20 [place] # 0.5 (0.1-0.6) 03/31/17 05:20 Eos # 0.2 (0.0-0.7) 03/31/17 05:20 Baso # 0.04 K/mm3 (0.0-2.0) 03/31/17 05:20 Haptoglobin 142 mg/dL (43-212) 03/27/17 05:20 PT 11.4 Seconds (9.9-11.8) 03/25/17 12:55 INR 1.06 (0.93-1.08) 03/25/17 12:55 APTT 80.5 Seconds (23.7-30.8) H* 03/26/17 05:00 pCO2 23 mm/Hg (35-45) L 03/25/17 16:00 pO2 34 mm/Hg (30-55) 03/25/17 21:30 HCO3 20.1 mmol/L (21-28) L 03/25/17 16:00 ABG pH 7.55 (7.35-7.45) H 03/25/17 16:00 ABG Total CO2 20.8 mmol.L (22-28) L 03/25/17 16:00 ABG O2 Saturation 98.1 % (95-98) H 03/25/17 16:00 ABG O2 Content 15.2 ML/dl (15-23) 03/25/17 16:00 ABG Base Excess -1.0 mmol/L (-2.0-3.0) 03/25/17 16:00 ABG Hemoglobin 11.1 g/dL (11.7-17.4) L 03/25/17 16:00 ABG Carboxyhemoglobin 0.6 % (0.5-1.5) 03/25/17 16:00 POC ABG HHb (Measured) 1.9 % (0-5) 03/25/17 16:00 ABG Methemoglobin 0.9 % (0.0-3.0) 03/25/17 16:00 ABG O2 Capacity 15.5 mL/dl (16-24) L 03/25/17 16:00 VBG pH 7.40 (7.32-7.43) 03/25/17 21:30 VBG pCO2 32.0 (40-60) L 03/25/17 21:30 VBG HCO3 19.8 mmol/l (21-28) L 03/25/17 21:30 VBG Total CO2 20.8 mmol.L (22-28) L 03/25/17 21:30 VBG O2 Sat (Calc) 69.1 % (40-65) H 03/25/17 21:30 VBG Base Excess -4.0 mmol/L (0.0-2.0) L 03/25/17 21:30 VBG Potassium 4.0 mmol/L (3.6-5.2) 03/25/17 21:30 Hgb O2 Saturation 96.5 % (95.0-98.0) 03/25/17 16:00 Sodium 157.0 mmol/L (132-148) H 03/25/17 21:30 Chloride 101.0 mmol/L (98-107) 03/25/17 21:30 Glucose 212 mg/dl (75-110) H 03/25/17 21:30 Lactate 1.0 mmol/L (0.7-2.1) 03/25/17 21:30 FiO2 21.0 % 03/25/17 21:30 Sodium 135 mmol/L (132-148) 03/31/17 05:00 Potassium 3.8 mmol/L (3.6-5.0) 03/31/17 05:00 Chloride 100 mmol/L (98-107) 03/31/17 05:00 Carbon Dioxide 27 mmol/L (21-33) 03/31/17 05:00 Anion Gap 12 (10-20) 03/31/17 05:00 BUN 24 mg/dL (7-21) H 03/31/17 05:00 Creatinine 3.7 mg/dL (0.5-1.4) H 03/31/17 05:00 Est GFR ( Amer) 03/31/17 05:00 Est GFR (Non-Af Amer) 03/31/17 05:00 POC Glucose (mg/dL) 182 mg/dL (65-110) H 04/01/17 16:09 Random Glucose 198 mg/dL (70-110) H 03/31/17 05:00 Hemoglobin A1c 7.2 % (4.2-6.5) H D 03/26/17 08:50 Calcium 7.8 mg/dL (8.4-10.5) L 03/31/17 05:00 Phosphorus 5.1 mg/dL (2.5-4.5) H 03/27/17 09:00 Magnesium 1.6 mg/dL (1.7-2.2) L 03/27/17 09:00 Iron 67 ug/dL (45-180) 03/27/17 09:00 TIBC 198 ug/dL (261-462) L 03/27/17 09:00 % Saturation 34 % (20-55) 03/27/17 09:00 Ferritin 67.2 ng/mL 03/27/17 09:00 Total Bilirubin 0.7 mg/dL (0.2-1.3) 03/27/17 09:00 Direct Bilirubin 0.3 mg/dL (0.0-0.4) 03/27/17 05:20 AST 16 U/L (15-59) 03/27/17 09:00 ALT 19 U/L (7-56) 03/27/17 09:00 Alkaline Phosphatase 65 U/L (38-133) 03/27/17 09:00 Ammonia < 9 umol/L (9-33) L 03/25/17 13:35 Lactate Dehydrogenase 384 U/L (333-699) 03/27/17 05:20 Total Creatine Kinase 157 U/L (35-230) 03/30/17 04:30 CK-MB (CK-2) 2.0 ng/mL (0.0-3.6) 03/29/17 05:40 CK-MB (CK-2) % Cancelled 03/25/17 12:55 Troponin I 0.11 ng/mL D 03/26/17 05:00 Total Protein 5.1 g/dL (5.8-8.3) L 03/27/17 09:00 Albumin 2.6 g/dL (3.0-4.8) L 03/27/17 09:00 Globulin 2.5 gm/dL 03/27/17 09:00 Albumin/Globulin Ratio 1.0 (1.1-1.8) L 03/27/17 09:00 Triglycerides 133 mg/dL (35-160) 03/26/17 08:50 Cholesterol 184 mg/dL (130-200) 03/26/17 08:50 LDL Cholesterol Direct 134 mg/dL (0-129) H 03/26/17 08:50 HDL Cholesterol 38 mg/dL (29-60) 03/26/17 08:50 Lipase 89 U/L (23-300) 03/25/17 12:55 Vitamin B12 270 pg/mL (239-931) 03/27/17 09:00 25-OH Vitamin D Total < 12.8 NG/ML (30.0-100.0) L 03/27/17 09:00 Folate 4.5 ng/mL 03/27/17 09:00 Procalcitonin 0.14 NG/ML (0.19-0.49) L 03/25/17 12:55 TSH 3rd Generation 0.68 mIU/mL (0.46-4.68) 03/26/17 08:50 PTH Intact Whole Molec 396 pg/mL (14-64) H 03/26/17 13:20 Venous Blood Potassium 4.0 mmol/L (3.6-5.2) 03/25/17 21:30 Urine Color Yellow (YELLOW) 03/27/17 15:20 Urine Appearance Sl cloudy (CLEAR) 03/27/17 15:20 Urine pH 7.0 (4.7-8.0) 03/27/17 15:20 Ur Specific Glady 1.025 (1.005-1.035) 03/27/17 15:20 Urine Protein >=300 mg/dL (<30 mg/dL) H 03/27/17 15:20 Urine Glucose (UA) 500 mg/dL (NEGATIVE) H 03/27/17 15:20 Urine Ketones Negative mg/dL (NEGATIVE) 03/27/17 15:20 Urine Blood Moderate (NEGATIVE) H 03/27/17 15:20 Urine Nitrate Negative (NEGATIVE) 03/27/17 15:20 Urine Bilirubin Negative (NEGATIVE) 03/27/17 15:20 Urine Urobilinogen 0.2 E.U./dL (<1 E.U./dL) 03/27/17 15:20 Ur Leukocyte Esterase Negative Zarina/uL (NEGATIVE) 03/27/17 15:20 Urine RBC 2 - 5 /hpf (0-2) 03/27/17 15:20 Urine WBC Negative /hpf (0-6) 03/27/17 15:20 Ur Epithelial Cells 1 - 3 /hpf (0-5) 03/25/17 16:45 Urine Bacteria Few (NEG) 03/25/17 16:45 Ur Random Creatinine 80 mg/dL 03/27/17 15:20 U Random Total Protein 5469 mg/g creat (22-128) H 03/27/17 15:20 Urine Microalbumin > 950.0 mg/L (0.0-16.6) H 03/27/17 15:20 Urine Opiates Screen Negative (NEGATIVE) 03/25/17 16:45 Urine Methadone Screen Negative (NEGATIVE) 03/25/17 16:45 Ur Barbiturates Screen Negative (NEGATIVE) 03/25/17 16:45 Ur Phencyclidine Scrn Negative (NEGATIVE) 03/25/17 16:45 Ur Amphetamines Screen Negative (NEGATIVE) 03/25/17 16:45 U Benzodiazepines Scrn Negative (NEGATIVE) 03/25/17 16:45 U Oth Cocaine Metabols Negative (NEGATIVE) 03/25/17 16:45 U Cannabinoids Screen Positive (NEGATIVE) H 03/25/17 16:45 Alcohol, Quantitative < 10 mg/dL (0-10) 03/25/17 12:55 Hep Bs Antigen Negative (NEGATIVE) 03/27/17 09:00 Hep Bs Antibody Negative (NEGATIVE) 03/27/17 09:00 Hep B Core IgM Ab Negative (NEGATIVE) 03/27/17 09:00 Hepatitis C Antibody Negative (NEGATIVE) 03/27/17 09:00 HIV 1&2 Antibody Screen Negative (NEGATIVE) 03/27/17 09:00 - Hospital Course Hospital Course: 56 yo male with a history of uncontrolled DM, HTN, [place] with stent placement who was admitted for AMS seconday to HTN emergency, rhabdomyolysis and acute on chronic kidney failure, requiring hemodialysis. Patient required intensive care unit monitoring for the first few days and was treated with aggressive IVF for rhabdomyolysis permacath placement for central access for hemodialysis. The patient was also found to have an AVF in the extremity. The patient received four dialysis treatment as an in patient, and was managed for his other chronic diseases. The patient was discharged once cleard by cardiology, Dr. Schulz, and with clear directions for his dialysis scheduled for TTS here at [facility] and follow up arrangements to see Dr. Zuñiga, vascular surgeon for AVF repair. Discharge Exam - Head Exam Head Exam: ATRAUMATIC, NORMOCEPHALIC - Eye Exam Eye Exam: EOMI, Normal appearance - ENT Exam ENT Exam: Mucous Membranes Moist, Normal Oropharynx - Respiratory Exam Respiratory Exam: Clear to PA & Lateral, NORMAL BREATHING PATTERN. absent: Wheezes - Cardiovascular Exam Cardiovascular Exam: RRR, +S1, +S2 - GI/Abdominal Exam GI & Abdominal Exam: Normal Bowel Sounds. absent: Distended, Guarding - Rectal Exam Rectal Exam: Deferred - Neurological Exam Neurological exam: Alert, CN II-XII Intact, Oriented x3 - Psychiatric Exam Psychiatric exam: Normal Affect, Normal Mood Discharge Plan - Discharge Medications Prescriptions: amLODIPine [Norvasc] 10 mg PO DAILY #30 tab cloNIDine [Catapres] 0.3 mg PO TID #90 tab hydrALAZINE [Apresoline] 50 mg PO Q8 #90 tab Losartan [Cozaar] 100 mg PO DAILY #30 tab Metoprolol Tartrate [Lopressor] 25 mg PO BRKDIN #30 tab Vitamin B Complex/Vit C/Folic [Nephro-Eleni] 1 tab PO 0800 #30 tab - Follow Up Plan Condition: SERIOUS Disposition: HOME/ ROUTINE Instructions: Acute Kidney Injury (DC), Hypertension (DC), Hypertension (GEN) Additional Instructions: 1) Follow-up with Dr. Matthews on 04/03/16, to schedule your stress test. 2) Follow up with vascular surgeon, Dr. Zuñiga to schedule surgery. 3) Follow up with Dr. Garrett, HD scheduled as Monday, , Monday. 4) Take blood pressure medications as directed. Referrals: Corona Ward MD [Primary Care Provider] - <Sean Rubio - Last Filed: 04/02/17 20:54> Provider - Provider Date of Admission: 03/25/17 16:08 Attending physician: Jennifer Ritter MD Primary care physician: Corona Ward MD Hospital Course - Lab Results Lab Results: Micro Results 03/25/17 19:00 Nose MRSA Culture (Admit) - Final MRSA NOT DETECTED Most Recent Lab Values WBC 4.9 10^3/ul (4.5-11.0) 03/31/17 05:20 RBC 3.58 10^6/uL (3.5-6.1) 03/31/17 05:20 Hgb 9.3 gm/dL (14.0-18.0) L 03/31/17 05:20 Hct 29.0 % (42.0-52.0) L 03/31/17 05:20 MCV 81.0 fL (80.0-105.0) 03/31/17 05:20 MCH 26.0 pg (25.0-35.0) 03/31/17 05:20 MCHC 32.1 g/dl (31.0-37.0) 03/31/17 05:20 RDW 14.7 % (11.5-14.5) H 03/31/17 05:20 Plt Count 173 10^3/uL (120.0-450.0) 03/31/17 05:20 MPV 12.3 fl (7.0-11.0) H 03/31/17 05:20 Gran % 55.9 % (50.0-68.0) 03/31/17 05:20 Lymph % (Auto) 29.0 % (22.0-35.0) 03/31/17 05:20 [place] % (Auto) 10.2 % (1.0-6.0) H 03/31/17 05:20 Eos % (Auto) 4.1 % (1.5-5.0) 03/31/17 05:20 Baso % (Auto) 0.8 % (0.0-3.0) 03/31/17 05:20 Gran # 2.73 (1.4-6.5) 03/31/17 05:20 Lymph # 1.4 (1.2-3.4) 03/31/17 05:20 [place] # 0.5 (0.1-0.6) 03/31/17 05:20 Eos # 0.2 (0.0-0.7) 03/31/17 05:20 Baso # 0.04 K/mm3 (0.0-2.0) 03/31/17 05:20 Haptoglobin 142 mg/dL (43-212) 03/27/17 05:20 PT 11.4 Seconds (9.9-11.8) 03/25/17 12:55 INR 1.06 (0.93-1.08) 03/25/17 12:55 APTT 80.5 Seconds (23.7-30.8) H* 03/26/17 05:00 pCO2 23 mm/Hg (35-45) L 03/25/17 16:00 pO2 34 mm/Hg (30-55) 03/25/17 21:30 HCO3 20.1 mmol/L (21-28) L 03/25/17 16:00 ABG pH 7.55 (7.35-7.45) H 03/25/17 16:00 ABG Total CO2 20.8 mmol.L (22-28) L 03/25/17 16:00 ABG O2 Saturation 98.1 % (95-98) H 03/25/17 16:00 ABG O2 Content 15.2 ML/dl (15-23) 03/25/17 16:00 ABG Base Excess -1.0 mmol/L (-2.0-3.0) 03/25/17 16:00 ABG Hemoglobin 11.1 g/dL (11.7-17.4) L 03/25/17 16:00 ABG Carboxyhemoglobin 0.6 % (0.5-1.5) 03/25/17 16:00 POC ABG HHb (Measured) 1.9 % (0-5) 03/25/17 16:00 ABG Methemoglobin 0.9 % (0.0-3.0) 03/25/17 16:00 ABG O2 Capacity 15.5 mL/dl (16-24) L 03/25/17 16:00 VBG pH 7.40 (7.32-7.43) 03/25/17 21:30 VBG pCO2 32.0 (40-60) L 03/25/17 21:30 VBG HCO3 19.8 mmol/l (21-28) L 03/25/17 21:30 VBG Total CO2 20.8 mmol.L (22-28) L 03/25/17 21:30 VBG O2 Sat (Calc) 69.1 % (40-65) H 03/25/17 21:30 VBG Base Excess -4.0 mmol/L (0.0-2.0) L 03/25/17 21:30 VBG Potassium 4.0 mmol/L (3.6-5.2) 03/25/17 21:30 Hgb O2 Saturation 96.5 % (95.0-98.0) 03/25/17 16:00 Sodium 157.0 mmol/L (132-148) H 03/25/17 21:30 Chloride 101.0 mmol/L (98-107) 03/25/17 21:30 Glucose 212 mg/dl (75-110) H 03/25/17 21:30 Lactate 1.0 mmol/L (0.7-2.1) 03/25/17 21:30 FiO2 21.0 % 03/25/17 21:30 Sodium 135 mmol/L (132-148) 03/31/17 05:00 Potassium 3.8 mmol/L (3.6-5.0) 03/31/17 05:00 Chloride 100 mmol/L (98-107) 03/31/17 05:00 Carbon Dioxide 27 mmol/L (21-33) 03/31/17 05:00 Anion Gap 12 (10-20) 03/31/17 05:00 BUN 24 mg/dL (7-21) H 03/31/17 05:00 Creatinine 3.7 mg/dL (0.5-1.4) H 03/31/17 05:00 Est GFR ( Amer) 21 03/31/17 05:00 Est GFR (Non-Af Amer) 17 03/31/17 05:00 POC Glucose (mg/dL) 182 mg/dL (65-110) H 04/01/17 16:09 Random Glucose 198 mg/dL (70-110) H 03/31/17 05:00 Hemoglobin A1c 7.2 % (4.2-6.5) H D 03/26/17 08:50 Calcium 7.8 mg/dL (8.4-10.5) L 03/31/17 05:00 Phosphorus 5.1 mg/dL (2.5-4.5) H 03/27/17 09:00 Magnesium 1.6 mg/dL (1.7-2.2) L 03/27/17 09:00 Iron 67 ug/dL (45-180) 03/27/17 09:00 TIBC 198 ug/dL (261-462) L 03/27/17 09:00 % Saturation 34 % (20-55) 03/27/17 09:00 Ferritin 67.2 ng/mL 03/27/17 09:00 Total Bilirubin 0.7 mg/dL (0.2-1.3) 03/27/17 09:00 Direct Bilirubin 0.3 mg/dL (0.0-0.4) 03/27/17 05:20 AST 16 U/L (15-59) 03/27/17 09:00 ALT 19 U/L (7-56) 03/27/17 09:00 Alkaline Phosphatase 65 U/L (38-133) 03/27/17 09:00 Ammonia < 9 umol/L (9-33) L 03/25/17 13:35 Lactate Dehydrogenase 384 U/L (333-699) 03/27/17 05:20 Total Creatine Kinase 157 U/L (35-230) 03/30/17 04:30 CK-MB (CK-2) 2.0 ng/mL (0.0-3.6) 03/29/17 05:40 CK-MB (CK-2) % Cancelled 03/25/17 12:55 Troponin I 0.11 ng/mL D 03/26/17 05:00 Total Protein 5.1 g/dL (5.8-8.3) L 03/27/17 09:00 Albumin 2.6 g/dL (3.0-4.8) L 03/27/17 09:00 Globulin 2.5 gm/dL 03/27/17 09:00 Albumin/Globulin Ratio 1.0 (1.1-1.8) L 03/27/17 09:00 Triglycerides 133 mg/dL (35-160) 03/26/17 08:50 Cholesterol 184 mg/dL (130-200) 03/26/17 08:50 LDL Cholesterol Direct 134 mg/dL (0-129) H 03/26/17 08:50 HDL Cholesterol 38 mg/dL (29-60) 03/26/17 08:50 Lipase 89 U/L (23-300) 03/25/17 12:55 Vitamin B12 270 pg/mL (239-931) 03/27/17 09:00 25-OH Vitamin D Total < 12.8 NG/ML (30.0-100.0) L 03/27/17 09:00 Folate 4.5 ng/mL 03/27/17 09:00 Procalcitonin 0.14 NG/ML (0.19-0.49) L 03/25/17 12:55 TSH 3rd Generation 0.68 mIU/mL (0.46-4.68) 03/26/17 08:50 PTH Intact Whole Molec 396 pg/mL (14-64) H 03/26/17 13:20 Venous Blood Potassium 4.0 mmol/L (3.6-5.2) 03/25/17 21:30 Urine Color Yellow (YELLOW) 03/27/17 15:20 Urine Appearance Sl cloudy (CLEAR) 03/27/17 15:20 Urine pH 7.0 (4.7-8.0) 03/27/17 15:20 Ur Specific Glady 1.025 (1.005-1.035) 03/27/17 15:20 Urine Protein >=300 mg/dL (<30 mg/dL) H 03/27/17 15:20 Urine Glucose (UA) 500 mg/dL (NEGATIVE) H 03/27/17 15:20 Urine Ketones Negative mg/dL (NEGATIVE) 03/27/17 15:20 Urine Blood Moderate (NEGATIVE) H 03/27/17 15:20 Urine Nitrate Negative (NEGATIVE) 03/27/17 15:20 Urine Bilirubin Negative (NEGATIVE) 03/27/17 15:20 Urine Urobilinogen 0.2 E.U./dL (<1 E.U./dL) 03/27/17 15:20 Ur Leukocyte Esterase Negative Zarina/uL (NEGATIVE) 03/27/17 15:20 Urine RBC 2 - 5 /hpf (0-2) 03/27/17 15:20 Urine WBC Negative /hpf (0-6) 03/27/17 15:20 Ur Epithelial Cells 1 - 3 /hpf (0-5) 03/25/17 16:45 Urine Bacteria Few (NEG) 03/25/17 16:45 Ur Random Creatinine 80 mg/dL 03/27/17 15:20 U Random Total Protein 5469 mg/g creat (22-128) H 03/27/17 15:20 Urine Microalbumin > 950.0 mg/L (0.0-16.6) H 03/27/17 15:20 Urine Opiates Screen Negative (NEGATIVE) 03/25/17 16:45 Urine Methadone Screen Negative (NEGATIVE) 03/25/17 16:45 Ur Barbiturates Screen Negative (NEGATIVE) 03/25/17 16:45 Ur Phencyclidine Scrn Negative (NEGATIVE) 03/25/17 16:45 Ur Amphetamines Screen Negative (NEGATIVE) 03/25/17 16:45 U Benzodiazepines Scrn Negative (NEGATIVE) 03/25/17 16:45 U Oth Cocaine Metabols Negative (NEGATIVE) 03/25/17 16:45 U Cannabinoids Screen Positive (NEGATIVE) H 03/25/17 16:45 Alcohol, Quantitative < 10 mg/dL (0-10) 03/25/17 12:55 Hep Bs Antigen Negative (NEGATIVE) 03/27/17 09:00 Hep Bs Antibody Negative (NEGATIVE) 03/27/17 09:00 Hep B Core IgM Ab Negative (NEGATIVE) 03/27/17 09:00 Hepatitis C Antibody Negative (NEGATIVE) 03/27/17 09:00 HIV 1&2 Antibody Screen Negative (NEGATIVE) 03/27/17 09:00 Attending/Attestation - Attestation I have personally seen and examined this patient.: Yes I have fully participated in the care of the patient.: Yes I have reviewed all pertinent clinical information, including history, physical exam and plan: Yes Notes (Text): 04/02/17 20:51 Patient seen and examined at bedside. No overnight issues reported. BP stable. labs, vitals and notes reviewed. Multi-speciality follow up appreciated. Cardiology plan for outpatient stress test d/w the patient along with vascular follow up with . Agree with the plan of care as outlined by the resident including dietary compliance and medication compliance. All questions answered.
== END 2017-04-01 18:13 | disposition home or self-care (01) | DRG 568 ==
LOC: ED 12:14 → ERH 16:08 → CCU 18:11 → 2RNO 03-28 19:29
PROVIDERS: ADMIT Internal Medicine; ATTEND Internal Medicine
PROC: 5A1D60Z (ICD-10-PCS; principal; 2017-03-28)
PROC: 05HM33Z Insertion of Infusion Device into Right Internal Jugular Vein, Percutaneous Approach (ICD-10-PCS; 2017-03-28)
PROC: B543ZZA Ultrasonography of Right Jugular Veins, Guidance (ICD-10-PCS; 2017-03-28)
DX: N17.9 Acute kidney failure, unspecified (principal); I12.0 Hypertensive chronic kidney disease with stage 5 chronic kidney disease or end stage renal disease; N18.6 End stage renal disease; M62.82 Rhabdomyolysis; G92 Toxic encephalopathy; E87.2 Acidosis; E83.42 Hypomagnesemia; E11.22 Type 2 diabetes mellitus with diabetic chronic kidney disease; E11.42 Type 2 diabetes mellitus with diabetic polyneuropathy; E11.51 Type 2 diabetes mellitus with diabetic peripheral angiopathy without gangrene; E87.6 Hypokalemia; I16.1 Hypertensive emergency; I25.10 Atherosclerotic heart disease of native coronary artery without angina pectoris; F12.90 Cannabis use, unspecified, uncomplicated; N25.81 Secondary hyperparathyroidism of renal origin; E83.39 Other disorders of phosphorus metabolism; D64.9 Anemia, unspecified; F10.21 Alcohol dependence, in remission; E78.5 Hyperlipidemia, unspecified; Z91.14 Patient's other noncompliance with medication regimen; Z91.19 Patient's noncompliance with other medical treatment and regimen; I25.2 Old myocardial infarction; Z86.73 Personal history of transient ischemic attack (TIA), and cerebral infarction without residual deficits; Z91.81 History of falling; Z95.5 Presence of coronary angioplasty implant and graft; Z95.1 Presence of aortocoronary bypass graft; Z89.421 Acquired absence of other right toe(s); Z79.02 Long term (current) use of antithrombotics/antiplatelets; Z79.4 Long term (current) use of insulin

== ENCOUNTER 2017-04-08 13:46 | Inpatient (IN) | payer OTHER ==
--- NOTE | 2017-04-08 14:11 | ED PDOC ---
Arrival/HPI - General Chief Complaint: Syncope Time Seen by Provider: 04/08/17 14:05 Historian: Patient - History of Present Illness Narrative History of Present Illness (Text): 04/08/17 14:00 56 year old M, whose past medical history includes diabetes, hyperglycemia, hypertension, [place] s/p triple vessel CABG, is brought in by EMS with complaints of loss of consciousness that began yesterday night after 20:30. Patient reports he took his insulin and woke up in the middle of the night not remembering what happened. Since early in the morning he has been experiencing nausea, vomiting, and chest pain. Patient denies other complaints. Time/Duration: Other (last night) Symptom Onset: Sudden Symptom Course: Unchanged Activities at Onset: Light Context: Home Associated Symptoms (Text): Nausea, vomiting, chest pain. Past Medical History - Provider Review Nursing Documentation Reviewed: Yes - Infectious Disease Hx of Infectious Diseases: None - Tetanus Immunization Tetanus Immunization: Unknown - Cardiac Hx Cardiac Disorders: Yes (CABG x 3) Hx Hypertension: Yes - Pulmonary Hx Respiratory Disorders: Yes Other/Comment: PULMONARY EDEMA - Neurological HX Cerebrovascular Accident: Yes - HEENT Hx HEENT Disorder: Yes (CONTACT LENSES) - Renal Hx Renal Failure: Yes - Endocrine/Metabolic Hx Diabetes Mellitus Type 1: Yes - Hematological/Oncological Hx Blood Disorders: No - Integumentary Hx Dermatological Disorder: Yes Other/Comment: millicent hernández ext rash, pt stated "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" - Musculoskeletal/Rheumatological Hx Musculoskeletal Disorders: No Hx Falls: No Other/Comment: generalized weakness - Gastrointestinal Hx Gastrointestinal Disorders: No - Genitourinary/Gynecological Hx Urinary Tract Infection: Yes - Psychiatric Hx Psychophysiologic Disorder: No Hx Depression: No Hx Emotional Abuse: No Hx Physical Abuse: No Hx Substance Use: Yes (MARIJUANA) - Surgical History Hx Amputation: Yes (R toes) Hx Cardiac Catheterization: Yes (09/09) Hx Coronary Stent: Yes Hx Open Heart Surgery: Yes (12-26-12) - Anesthesia Hx Anesthesia: Yes Hx Anesthesia Reactions: No - Suicidal Assessment Feels Threatened In Home Enviroment: No Family/Social History - Physician Review Nursing Documentation Reviewed: Yes Family/Social History: Other (non-contributory ) Smoking Status: Never Smoked Hx Alcohol Use: Yes (QUIT 4 YEARS AGO) Hx Substance Use: Yes (MARIJUANA) Hx Substance Use Treatment: No Allergies/Home Meds Allergies/Adverse Reactions: Allergies morphine Allergy (Verified 04/08/17 14:04) ANAPHYLAXIS sea food Allergy (Severe, Uncoded 04/08/17 14:04) ANAPHYLAXIS Home Medications: Home Meds Medication Instructions Recorded Confirmed Insulin Glargine, Recombina 30 unit SQ HS 04/05/16 04/08/17 [Lantus] Insulin Lispro [Humalog] 10 units SQ AC 04/05/16 04/08/17 Carvedilol [Coreg] 12.5 mg PO BID 03/25/17 04/08/17 Omeprazole 20 mg PO DAILY 03/25/17 04/08/17 Review of Systems - Physician Review All systems were reviewed & negative as marked: Yes - Review of Systems Constitutional: absent: Fevers Respiratory: absent: SOB, Cough Cardiovascular: Chest Pain Gastrointestinal: Nausea, Vomiting Neurological: absent: Headache, Dizziness Physical Exam Vital Signs Reviewed: Yes Vital Signs Temp Pulse Resp BP Pulse Ox 04/08/17 19:56 18 142/71 96 04/08/17 14:09 98.1 F 78 17 118/77 98 Appearance: Positive for: Well-Appearing, Non-Toxic, Comfortable Pain Distress: None Mental Status: Positive for: Alert and Oriented X 3 - Systems Exam Head: Present: Atraumatic, Normocephalic Pupils: Present: PERRL Mouth: Present: Moist Mucous Membranes Neck: Present: Normal Range of Motion, MIDLINE TENDERNESS (lower cervical spine) Respiratory/Chest: Present: Clear to Auscultation, Good Air Exchange. No: Respiratory Distress, Accessory Muscle Use Cardiovascular: Present: Regular Rate and Rhythm, Normal S1, S2. No: Murmurs Abdomen: Present: Normal Bowel Sounds. No: Tenderness, Distention, Peritoneal Signs Upper Extremity: Present: Normal ROM. No: Cyanosis, Edema Lower Extremity: Present: Other (partial amputation for bilateral feet). No: Edema Neurological: Present: GCS=15, CN II-XII Intact, Speech Normal, Motor Func Grossly Intact, Normal Sensory Function Skin: Present: Warm, Dry, Normal Color. No: Rashes Psychiatric: Present: Alert, Oriented x 3 Medical Decision Making ED Course and Treatment: 04/08/17 14:15 EKG: Ordered, reviewed, and independently interpreted the EKG. Rate : 76 BPM Rhythm : NSR Interpretation : LVH. No changes from prior EKG. Comparison : 03/25/2017 - Lab Interpretations Lab Results: 04/08/17 14:30 04/08/17 14:30 Lab Results 04/08/17 14:30: Alcohol, Quantitative < 10 04/08/17 14:30: TSH 3rd Generation 1.12 04/08/17 14:30: Sodium 134, Chloride 94 L, Potassium 3.8, Carbon Dioxide 18 L, Anion Gap 26 H, BUN 25 H, Creatinine 6.9 H, Est GFR ( Amer) 10, Est GFR ( Non-Af Amer) 8, Random Glucose 132 H, Calcium 9.8, Total Bilirubin 0.9, AST 31, ALT 22, Alkaline Phosphatase 143 H, Total Creatine Kinase 289 H, CK-MB (CK-2) 2.3, CK-MB (CK-2) % Cancelled, Troponin I 0.05 D, Total Protein 7.6, Albumin 4.5, Globulin 3.1, Albumin/Globulin Ratio 1.5, Lipase 41 04/08/17 14:30: pO2 33, VBG pH 7.48 H, VBG pCO2 27.0 L, VBG HCO3 20.1 L, VBG Total CO2 20.9 L, VBG O2 Sat (Calc) 72.0 H, VBG Base Excess -2.0 L, VBG Potassium 3.9, Sodium 135.0, Chloride 95.0 L, Glucose 142 H, Lactate 1.6, FiO2 21.0, Venous Blood Potassium 3.9 04/08/17 14:30: WBC 14.0 H D, RBC 4.44, Hgb 12.0 L, Hct 35.3 L, MCV 79.5 L, MCH 27.0, MCHC 34.0, RDW 14.7 H, Plt Count 310, MPV 11.4 H, Neutrophils % (Manual) 88 H, Lymphocytes % (Manual) 6 L, Monocytes % (Manual) 6, Platelet Evaluation Normal 04/08/17 14:04: POC Glucose (mg/dL) 132 H - RAD Interpretation Radiology Orders: 04/08/17 14:06 CERVICAL SPINE W/O CONTRAST [CT] Stat HEAD W/O CONTRAST [CT] Stat CHEST PORTABLE [RAD] Stat - EKG Interpretation Interpreted by ED Physician: Yes Type: 12 lead EKG - Medication Orders Current Medication Orders: Amlodipine Besylate (Norvasc) 10 mg PO DAILY [facility] Last Admin: 04/09/17 09:51 Dose: 10 mg Aspirin (Aspirin Chewable) 81 mg PO DAILY [facility] Last Admin: 04/09/17 12:09 Dose: 81 mg Atorvastatin Calcium (Lipitor) 40 mg PO HS [facility] Last Admin: 04/08/17 23:22 Dose: Not Given Non-Admin Reason: Patient Refused Clonidine HCl (Catapres) 0.3 mg PO TID [facility] Last Admin: 04/09/17 09:53 Dose: 0.3 mg Clopidogrel Bisulfate (Plavix) 75 mg PO DAILY [facility] Last Admin: 04/09/17 12:09 Dose: 75 mg Heparin Sodium (Porcine) (Heparin) 5,000 units SC Q8 [facility] PRN Reason: Protocol Last Admin: 04/09/17 06:24 Dose: 5,000 units Hydralazine HCl (Apresoline) 50 mg PO Q8 [facility] Last Admin: 04/09/17 06:23 Dose: 50 mg Hydralazine HCl (Apresoline) 10 mg IVP Q6 PRN PRN Reason: Systolic Blood Pressure Last Admin: 04/09/17 12:07 Dose: 10 mg Insulin Detemir (Levemir) 15 unit SC Q12 [facility] Last Admin: 04/08/17 23:07 Dose: 15 unit Insulin Human Lispro (Humalog Med) 0 units SC ACHS [facility] PRN Reason: Protocol Losartan Potassium (Cozaar) 100 mg PO DAILY [facility] Last Admin: 04/09/17 09:51 Dose: 100 mg Metoclopramide HCl (Reglan) 5 mg IVP TID PRN PRN Reason: Nausea/Vomiting Last Admin: 04/09/17 12:08 Dose: 5 mg Ondansetron HCl (Zofran Inj) 4 mg IVP Q6 PRN PRN Reason: Nausea/Vomiting Last Admin: 04/09/17 08:03 Dose: 4 mg Vitamin B Complex/Vit C/Folic Acid (Nephro-Eleni) 1 tab PO 0800 [facility] Last Admin: 04/09/17 09:39 Dose: 1 tab Discontinued Medications Hydralazine HCl (Apresoline) 10 mg IVP ONCE ONE Stop: 04/09/17 08:24 Last Admin: 04/09/17 08:42 Dose: 10 mg Sodium Chloride (Sodium Chloride 0.9%) 1,000 mls @ 100 mls/hr IV .Q10H [facility] Last Admin: 04/08/17 14:39 Dose: 100 mls/hr Sodium Chloride (Sodium Chloride 0.9%) 1,000 mls @ 150 mls/hr IV .Q6H40M [facility] Last Admin: 04/09/17 00:42 Dose: 150 mls/hr Ondansetron HCl (Zofran Inj) 4 mg IVP ONCE ONE Stop: 04/08/17 14:08 Last Admin: 04/08/17 14:39 Dose: 4 mg Ondansetron HCl (Zofran Inj) 4 mg IVP ONCE ONE Stop: 04/08/17 15:55 Last Admin: 04/08/17 16:03 Dose: 4 mg Pneumococcal Polyvalent Vaccine (Pneumovax 23 Vaccine) 0.5 ml IM .ONCE ONE Stop: 04/08/17 21:17 - Scribe Statement The provider has reviewed the documentation as recorded by the Scribe 04/08/2017 Ayah Shell Provider Scribe Attestation: All medical record entries made by the Scribe were at my direction and personally dictated by me. I have reviewed the chart and agree that the record accurately reflects my personal performance of the history, physical exam, medical decision making, and the department course for this patient. I have also personally directed, reviewed, and agree with the discharge instructions and disposition. Disposition/Present on Arrival - Present on Arrival Any Indicators Present on Arrival: No History of DVT/PE: No History of Uncontrolled Diabetes: No Urinary Catheter: No History of Decub. Ulcer: No History Surgical Site Infection Following: None - Disposition Have Diagnosis and Disposition been Completed?: Yes Diagnosis: Syncope, ESRD on dialysis Disposition: HOSPITALIZED Disposition Time: 16:43 Condition: FAIR
[2017-04-08] MEDS ORDERED: Sodium Chloride 0.9% 1,000 ML IV SCH ×2 (14:15→23:50)
[2017-04-08 14:18] VITALS: BMI 29.5
[2017-04-08 15:00] LABS: ALB/GLOB RATIO 1.5 (1.1-1.8); ALBUMIN 4.5 g/dL (3.0-4.8); CALCIUM 9.8 mg/dL (8.4-10.5)
[2017-04-08 15:10] LABS: TROPONIN I 0.05 ng/mL
[2017-04-08 15:15] LABS: CK-MB 2.3 ng/mL (0.0-3.6)
--- NOTE | 2017-04-08 15:18 | RAD ---
HISTORY: Altered mental status. Portable study 14:30. COMPARISON: 03/25/2017. FINDINGS: LUNGS: No active pulmonary disease. PLEURA: No significant pleural effusion identified, no pneumothorax apparent. CARDIOVASCULAR: Cardiomegaly. No evidence of acute, significant cardiovascular disease. Venous access catheter in satisfactory position. OSSEOUS STRUCTURES: No significant abnormalities. VISUALIZED UPPER ABDOMEN: Normal. OTHER FINDINGS: None. IMPRESSION: No active disease. No significant interval change compared to the prior examination(s).
[2017-04-08 15:24] LABS: MEAN CELL VOLUME 79.5 fl (80.0-105.0); MEAN PLATELET VOLUME 11.4 fl (7.0-11.0); PLATELET COUNT 310 10^3/uL (120.0-450.0); RBC 4.44 10^6/uL (3.5-6.1); RED CELL DISTRIBUTION WIDTH 14.7 % (11.5-14.5)
--- NOTE | 2017-04-08 15:24 | CT ---
PROCEDURE: CT HEAD WITHOUT CONTRAST. HISTORY: fall COMPARISON: 03/25/2017 CT head TECHNIQUE: Axial computed tomography images were obtained through the head/brain without intravenous contrast. Radiation dose: Total exam DLP = 822.62 wake mGy-cm. This CT exam was performed using one or more of the following dose reduction techniques: Automated exposure control, adjustment of the mA and/or kV according to patient size, and/or use of iterative reconstruction technique. FINDINGS: HEMORRHAGE: No intracranial hemorrhage. BRAIN: No mass effect or edema. Stable lacune or infarcts, atrophy and periventricular small vessel disease. VENTRICLES: Unremarkable. No hydrocephalus. CALVARIUM: Unremarkable. PARANASAL SINUSES: Unremarkable as visualized. No significant inflammatory changes. MASTOID AIR CELLS: Unremarkable as visualized. No inflammatory changes. OTHER FINDINGS: None. IMPRESSION: No acute intracranial abnormalities. No significant findings to account for the clinical presentation. BMD changes compared to the prior study
--- NOTE | 2017-04-08 15:26 | CT ---
PROCEDURE: CT Cervical Spine without contrast HISTORY: <fall> COMPARISON: None available. TECHNIQUE: Axial computed tomography images were obtained of the cervical spine without the use of intravenous contrast. Coronal and sagittal reformatted images were created and reviewed. Radiation dose: Total exam DLP = 538.68 mGy-cm. This CT exam was performed using one or more of the following dose reduction techniques: Automated exposure control, adjustment of the mA and/or kV according to patient size, and/or use of iterative reconstruction technique. FINDINGS: VERTEBRAE: No fracture. Normal alignment. No destructive bony lesion. DISCS/SPINAL CANAL/NEURAL FORAMINA: No significant central canal or neural foraminal stenosis. Discs heights are grossly preserved. PARASPINAL SOFT TISSUES: Unremarkable. OTHER FINDINGS: Venous access catheter identified in right internal jugular vein. Thickening of the cervical and upper thoracic esophagus likely acute esophagitis. IMPRESSION: No acute findings related to/accounting for the clinical presentation. Additional benign and/or incidental findings described above.
[2017-04-08 15:59] LABS: VENOUS BLOOD GAS PO2 33 mm/Hg (30-55); VENOUS BLOOD PH 7.48 (7.32-7.43)
[2017-04-08 16:00] LABS: LYMPHOCYTE 6 % (22.0-35.0); MONOCYTE 6 % (1.0-6.0); NEUTROPHIL 88 % (50.0-70.0)
[2017-04-08 16:01] LABS: PLATELET ESTIMATE NORMAL (NORMAL)
--- NOTE | 2017-04-08 17:57 | CP.PCM.HP ---
<JuanKayleigh - Last Filed: 04/08/17 19:36> History of Present Illness - History of Present Illness History of Present Illness: 56 year old male with a past medical history significant for hypertension, DM II , CAD s/p CABG (4.5 years ago), ESRD (just started on hemodialysis week 2) who presented to [facility] via EMS for loss of consciousness. He states that after taking his insulin at bedtime he passed out and the next thing he remembers was waking up on the floor with stool in his pants. His roomate called 911 and Mr. Lay was brought to [facility]. He admits to having some abdominal since his discharge last week. He admits to vomiting, nausea, and abdominal pain on admission. Present on Admission - Present on Admission Any Indicators Present on Admission: Yes History of Uncontrolled Diabetes: Yes Urinary Catheter: No Decubitus Ulcer Present: No Review of Systems - Constitutional Constitutional: As Per HPI, Chills, Daytime Sleepiness - EENT Eyes: As Per HPI Past Patient History - Infectious Disease Hx of Infectious Diseases: None - Tetanus Immunizations Tetanus Immunization: Unknown - Past Medical History & Family History Past Medical History?: Yes - Past Social History Smoking Status: Never Smoked - CARDIAC Hx Cardiac Disorders: Yes (CABG x 3) Hx Hypertension: Yes - PULMONARY Hx Respiratory Disorders: Yes Other/Comment: PULMONARY EDEMA - NEUROLOGICAL HX Cerebrovascular Accident: Yes - HEENT Hx HEENT Problems: Yes (CONTACT LENSES) - RENAL Hx Renal Failure: Yes - ENDOCRINE/METABOLIC Hx Diabetes Mellitus Type 1: Yes - HEMATOLOGICAL/ONCOLOGICAL Hx Blood Disorders: No - INTEGUMENTARY Hx Dermatological Problems: Yes Other/Comment: millicent hernández ext rash, pt stated "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" - MUSCULOSKELETAL/RHEUMATOLOGICAL Hx Musculoskeletal Disorders: No Hx Falls: No Other/Comment: generalized weakness - GASTROINTESTINAL Hx Gastrointestinal Disorders: No - GENITOURINARY/GYNECOLOGICAL Hx Urinary Tract Infection: Yes - PSYCHIATRIC Hx Psychophysiologic Disorder: No Hx Depression: No Hx Emotional Abuse: No Hx Physical Abuse: No Hx Substance Use: Yes (MARIJUANA) - SURGICAL HISTORY Hx Amputation: Yes (R toes) Hx Cardiac Catheterization: Yes (09/09) Hx Coronary Stent: Yes Hx Open Heart Surgery: Yes (12-26-12) - ANESTHESIA Hx Anesthesia: Yes Hx Anesthesia Reactions: No Meds Allergies/Adverse Reactions: Allergies Allergy/AdvReac Type Severity Reaction Status Date / Time morphine Allergy ANAPHYLAXIS Verified 04/08/17 14:04 sea food Allergy Severe ANAPHYLAXIS Uncoded 04/08/17 14:04 Physical Exam - Constitutional Appears: No Acute Distress - Head Exam Head Exam: ATRAUMATIC, NORMOCEPHALIC - Eye Exam Eye Exam: EOMI, Normal appearance, PERRL Pupil Exam: NORMAL ACCOMODATION, PERRL - ENT Exam ENT Exam: Mucous Membranes Moist, Normal Oropharynx - Neck Exam Neck exam: Positive for: Normal Inspection - Respiratory Exam Respiratory Exam: Clear to Auscultation Bilateral, NORMAL BREATHING PATTERN - Cardiovascular Exam Cardiovascular Exam: RRR, +S1, +S2 - GI/Abdominal Exam GI & Abdominal Exam: Firm, Guarding, Normal Bowel Sounds. absent: Rebound Additional comments: Pain on palpation to the LLQ - Rectal Exam Rectal Exam: Deferred - Extremities Exam Extremities exam: Positive for: joint swelling, normal inspection - Back Exam Back exam: CVA tenderness (L), CVA tenderness (R), NORMAL INSPECTION - Neurological Exam Neurological exam: Alert, CN II-XII Intact, Oriented x3 - Psychiatric Exam Psychiatric exam: Normal Affect, Normal Mood - Skin Skin Exam: Dry, Intact, Normal Color, Warm Results - Vital Signs Recent Vital Signs: Last Vital Signs Temp 98.1 F 04/08/17 14:09 Pulse 78 04/08/17 14:09 Resp 17 04/08/17 14:09 BP 118/77 04/08/17 14:09 Pulse Ox 98 04/08/17 14:09 - Labs Result Diagrams: 04/08/17 14:30 04/08/17 14:30 - EKG Data EKG Interpreted by: Myself - EKG Data When Compared to Previous EKG: No Significant Change EKG comments: LVH with strain Assessment & Plan - Assessment and Plan (Free Text) Assessment: 56 year old male with a past medical history significant for hypertension, DM II , CAD s/p CABG (4.5 years ago), ESRD (just started on hemodialysis week 2) who presented to [facility] via EMS for loss of consciousness. He states that after taking his insulin at bedtime he passed out and the next thing he remembers was waking up on the floor with stool in his pants. His roomate called 911 and Mr. Lay was brought to [facility]. He admits to having some abdominal since his discharge last week. He admits to vomiting, nausea, and abdominal pain on admission. Plan: 1)AMS secondary to hypoglycemic episode, seizure, stroke, drug OD Admitted to telemetry, neurochecks q4h, seizure and fall precautions CT head (-) CT of cervical spine showed thickening of the upper esophagus MRI of head w/out contrast ordered Urine drug screen, serum alcohol 2) Abdominal pain CT abdomen without contrast 3) Hypertension C/W home medications 4) CAD s/p CABG C/W 5) Diabetes Mellitus C/W 15 U of Levemir q12 Finger stick blood glucose ACHS 6) ESRD Hemodialysis Nephrology, Dr. Garrett following 7) Chest pain EKG stable compared to prior Troponin (-) x 1 Decision To Admit - Pt Status Changed To: Hospital Disposition Of: Observation - . Bed Request Type: Telemetry Admitting Physician: Corey Moore MD <Corey Moore MD - Last Filed: 04/09/17 10:39> Results - Vital Signs Recent Vital Signs: Last Vital Signs Temp 98.3 F 04/09/17 06:00 Pulse 98 H 04/09/17 09:53 Resp 20 04/09/17 06:00 BP 188/90 H 04/09/17 09:53 Pulse Ox 93 L 04/09/17 06:00 - Labs Result Diagrams: 04/09/17 07:42 04/09/17 07:42 Labs: Laboratory Results - last 24 hr 04/08/17 04/08/17 04/09/17 21:04 23:54 07:42 WBC 11.0 D RBC 4.28 Hgb 11.4 L Hct 34.4 L MCV 80.4 MCH 26.6 MCHC 33.1 RDW 15.0 H Plt Count 303 MPV 11.3 H Gran % 83.9 H Lymph % (Auto) 10.7 L [place] % (Auto) 5.1 Eos % (Auto) 0.0 L Baso % (Auto) 0.3 Gran # 9.19 H Lymph # 1.2 [place] # 0.6 Eos # 0.0 Baso # 0.03 Sodium 140 Potassium 3.5 L Chloride 104 Carbon Dioxide 17 L Anion Gap 23 H BUN 10 Creatinine 3.8 H Est GFR ( Amer) 20 Est GFR (Non-Af Amer) 17 POC Glucose (mg/dL) 143 H Random Glucose 159 H Calcium 7.9 L Phosphorus 2.4 L Magnesium 1.7 Total Bilirubin 0.8 AST 33 ALT 19 Alkaline Phosphatase 102 Troponin I Total Protein 6.1 Albumin 3.6 Globulin 2.5 Albumin/Globulin Ratio 1.4 04/09/17 07:42 WBC RBC Hgb Hct MCV MCH MCHC RDW Plt Count MPV Gran % Lymph % (Auto) [place] % (Auto) Eos % (Auto) Baso % (Auto) Gran # Lymph # [place] # Eos # Baso # Sodium 141 Potassium 3.7 Chloride 97 L Carbon Dioxide 19 L Anion Gap 29 H BUN 17 Creatinine 5.3 H Est GFR ( Amer) 14 Est GFR (Non-Af Amer) 11 POC Glucose (mg/dL) Random Glucose 237 H Calcium 8.8 Phosphorus Magnesium Total Bilirubin AST ALT Alkaline Phosphatase Troponin I 0.08 D Total Protein Albumin Globulin Albumin/Globulin Ratio Attending/Attestation - Attestation I have personally seen and examined this patient.: Yes I have fully participated in the care of the patient.: Yes I have reviewed all pertinent clinical information: Yes Notes (Text): 04/09/17 10:35 Patient was seen and examined with medical photographer. 56 year old male with a past medical history significant for hypertension, DM II , CAD s/p CABG , ESRD was recently started on on hemodialysis is admitted with history of lose consciousness, was not hypoglycemic, gave history of incontinence of stool, there was no tongue bite.There is no focal lose, concern for seizure, will monitor in tele, will monitor Neuro check and will get MRI of Brain and Neurology consult. Patient is having Nausea and has left lower quadrant tenderness, CT abdomen and Pelvis has been ordered, will follow up result. Management plan was discussed in detail with patient Education was provided.
--- NOTE | 2017-04-08 20:01 | CP.PCM.CON ---
History of Present Illness - History of Present Illness History of Present Illness: Renal note pt seen and examined in ER he came with syncope and fall labs and vitals reviewed will plan for HD today as per TTS schedule Past Patient History - Infectious Disease Hx of Infectious Diseases: None - Tetanus Immunizations Tetanus Immunization: Unknown - Past Medical History & Family History Past Medical History?: Yes - Past Social History Smoking Status: Never Smoked - CARDIAC Hx Cardiac Disorders: Yes (CABG x 3) Hx Hypertension: Yes - PULMONARY Hx Respiratory Disorders: Yes Other/Comment: PULMONARY EDEMA - NEUROLOGICAL HX Cerebrovascular Accident: Yes - HEENT Hx HEENT Problems: Yes (CONTACT LENSES) - RENAL Hx Renal Failure: Yes - ENDOCRINE/METABOLIC Hx Diabetes Mellitus Type 1: Yes - HEMATOLOGICAL/ONCOLOGICAL Hx Blood Disorders: No - INTEGUMENTARY Hx Dermatological Problems: Yes Other/Comment: millicent hernández ext rash, pt stated "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" - MUSCULOSKELETAL/RHEUMATOLOGICAL Hx Musculoskeletal Disorders: No Hx Falls: No Other/Comment: generalized weakness - GASTROINTESTINAL Hx Gastrointestinal Disorders: No - GENITOURINARY/GYNECOLOGICAL Hx Urinary Tract Infection: Yes - PSYCHIATRIC Hx Psychophysiologic Disorder: No Hx Depression: No Hx Emotional Abuse: No Hx Physical Abuse: No Hx Substance Use: Yes (MARIJUANA) - SURGICAL HISTORY Hx Amputation: Yes (R toes) Hx Cardiac Catheterization: Yes (09/09) Hx Coronary Stent: Yes Hx Open Heart Surgery: Yes (12-26-12) - ANESTHESIA Hx Anesthesia: Yes Hx Anesthesia Reactions: No Meds Allergies/Adverse Reactions: Allergies Allergy/AdvReac Type Severity Reaction Status Date / Time morphine Allergy ANAPHYLAXIS Verified 04/08/17 14:04 sea food Allergy Severe ANAPHYLAXIS Uncoded 04/08/17 14:04 - Medications Medications: Current Medications Amlodipine Besylate (Norvasc) 10 mg PO DAILY [facility] Aspirin (Aspirin Chewable) 81 mg PO DAILY [facility] Atorvastatin Calcium (Lipitor) 40 mg PO HS [facility] Clonidine HCl (Catapres) 0.3 mg PO TID [facility] Clopidogrel Bisulfate (Plavix) 75 mg PO DAILY [facility] Heparin Sodium (Porcine) (Heparin) 5,000 units SC Q8 [facility] PRN Reason: Protocol Hydralazine HCl (Apresoline) 50 mg PO Q8 [facility] Sodium Chloride (Sodium Chloride 0.9%) 1,000 mls @ 100 mls/hr IV .Q10H [facility] Last Admin: 04/08/17 14:39 Dose: 100 mls/hr Insulin Detemir (Levemir) 15 unit SC Q12 [facility] Losartan Potassium (Cozaar) 100 mg PO DAILY [facility] Ondansetron HCl (Zofran Inj) 4 mg IVP Q6 PRN PRN Reason: Nausea/Vomiting Last Admin: 04/08/17 19:56 Dose: 4 mg Vitamin B Complex/Vit C/Folic Acid (Nephro-Elnei) 1 tab PO 0800 [facility] Results - Vital Signs Recent Vital Signs: Last Vital Signs Temp 98.1 F 04/08/17 14:09 Pulse 78 04/08/17 14:09 Resp 18 04/08/17 19:56 BP 142/71 04/08/17 19:56 Pulse Ox 96 04/08/17 19:56 - Labs Result Diagrams: 04/08/17 14:30 04/08/17 14:30
[2017-04-08] MEDS ORDERED: Pneumococcal 23-Valent Vaccine IM ONE (21:16)
[2017-04-08] MEDS: Insulin Detemir 100 units/ml Vial (Levemir) SC SCH (23:07)
[2017-04-09 00:21] LABS: ALB/GLOB RATIO 1.4 (1.1-1.8); ALBUMIN 3.6 g/dL (3.0-4.8); CALCIUM 7.9 mg/dL (8.4-10.5); MAGNESIUM 1.7 mg/dL (1.7-2.2)
[2017-04-09 08:10] LABS: BASO # 0.03 K/mm3 (0.0-2.0); BASO % 0.3 % (0.0-3.0); CALCIUM 8.8 mg/dL (8.4-10.5); GRAN # 9.19 (1.4-6.5); GRAN % 83.9 % (50.0-68.0); HEMOGLOBIN 11.4 g/dL (14.0-18.0); LYMPH # 1.2 (1.2-3.4); LYMPH % 10.7 % (22.0-35.0); MEAN CELL VOLUME 80.4 fl (80.0-105.0); MEAN CORPUSCULAR HEMOGLOBIN 26.6 pg (25.0-35.0); MEAN CORPUSCULAR HGB CONC 33.1 g/dl (31.0-37.0); MEAN PLATELET VOLUME 11.3 fl (7.0-11.0); MONO # 0.6 (0.1-0.6); MONO % 5.1 % (1.0-6.0); PLATELET COUNT 303 10^3/uL (120.0-450.0); RBC 4.28 10^6/uL (3.5-6.1)
[2017-04-09 08:14] LABS: TROPONIN I 0.08 ng/mL
--- NOTE | 2017-04-09 09:17 | CP.PCM.PN ---
<Nancy Clemens - Last Filed: 04/10/17 14:14> Subjective - Date & Time of Evaluation Date of Evaluation: 04/09/17 Time of Evaluation: 08:10 - Subjective Subjective: Patient seen and examined at bedside. Patient having nausea and coffee ground emesis. Reports having LLQ abdominal pain. BPs elevated 184/94. Hydralazine 10mg IVP given. Denies fevers, chills, cp, sob, urinary symptoms. Objective - Vital Signs/Intake and Output Vital Signs (last 24 hours): Temp Pulse Resp BP Pulse Ox 98.3 F 98 H 20 184/94 H 93 L 04/09/17 06:00 04/09/17 08:42 04/09/17 06:00 04/09/17 08:42 04/09/17 06:00 Intake and Output: 04/09/17 04/09/17 06:59 18:59 Intake Total 240 Output Total 0 Balance 240 - Medications Medications: Current Medications Amlodipine Besylate (Norvasc) 10 mg PO DAILY [facility] Aspirin (Aspirin Chewable) 81 mg PO DAILY [facility] Atorvastatin Calcium (Lipitor) 40 mg PO HS [facility] Last Admin: 04/08/17 23:22 Dose: Not Given Clonidine HCl (Catapres) 0.3 mg PO TID [facility] Clopidogrel Bisulfate (Plavix) 75 mg PO DAILY [facility] Heparin Sodium (Porcine) (Heparin) 5,000 units SC Q8 [facility] PRN Reason: Protocol Last Admin: 04/09/17 06:24 Dose: 5,000 units Hydralazine HCl (Apresoline) 50 mg PO Q8 [facility] Last Admin: 04/09/17 06:23 Dose: 50 mg Insulin Detemir (Levemir) 15 unit SC Q12 [facility] Last Admin: 04/08/17 23:07 Dose: 15 unit Insulin Human Lispro (Humalog Med) 0 units SC ACHS [facility] PRN Reason: Protocol Losartan Potassium (Cozaar) 100 mg PO DAILY [facility] Ondansetron HCl (Zofran Inj) 4 mg IVP Q6 PRN PRN Reason: Nausea/Vomiting Last Admin: 04/09/17 08:03 Dose: 4 mg Vitamin B Complex/Vit C/Folic Acid (Nephro-Eleni) 1 tab PO 0800 [facility] - Labs Labs: 04/09/17 07:42 08/13/17 07:42 - Constitutional Appears: In Acute Distress, Unkempt - Head Exam Head Exam: ATRAUMATIC, NORMAL INSPECTION - Eye Exam Eye Exam: EOMI, Normal appearance Pupil Exam: NORMAL ACCOMODATION - ENT Exam ENT Exam: Mucous Membranes Moist - Neck Exam Neck Exam: Full ROM - Respiratory Exam Respiratory Exam: Clear to Ausculation Bilateral, NORMAL BREATHING PATTERN. absent: Rales, Rhonchi, Wheezes - Cardiovascular Exam Cardiovascular Exam: REGULAR RHYTHM, +S1, +S2 - GI/Abdominal Exam GI & Abdominal Exam: Soft, Tenderness, Normal Bowel Sounds. absent: Guarding, Rigid, Rebound Additional comments: +LLQ tenderness to palpation - Extremities Exam Extremities Exam: Normal Inspection Additional comments: R transmetatarsal amputation - Back Exam Back Exam: NORMAL INSPECTION - Neurological Exam Neurological Exam: Alert, Awake, Oriented x3 - Psychiatric Exam Psychiatric exam: Normal Affect, Normal Mood - Skin Skin Exam: Normal Color, Warm Assessment and Plan - Assessment and Plan (Free Text) Assessment: 56 year old male with a past medical history significant for hypertension, DM II , CAD s/p CABG (4.5 years ago), ESRD (just started on hemodialysis week 2) [place] [facility] [place] of [place]. He states that after taking his insulin at bedtime he passed out and the next thing he remembers was waking up on the floor with stool in his pants. His roomate called 911 and Mr. Lay was brought [place] [facility] [place] He admits to having some abdominal since his discharge last week. He admits to vomiting, nausea, and abdominal pain on admission. Plan: 1) AMS secondary to hypoglycemic episode, seizure, stroke, drug OD - Admitted to telemetry - CT head negative - F/U MRI brain, EEG - CT of cervical spine showed thickening of the upper esophagus - Neurology consulted, f/u recommendations - Urine drug screen positive for cannibinoids - Neurochecks q4h, seizure and fall precautions 2) Coffee ground emesis, r/o GI bleed -F/U repeat CBC at 9pm -Diet: NPO -Zofran/Reglan prn nausea -CT abd/pelvis: no acute findings -GI consulted, f/u recommendations -Serial abdominal exams 3) Sepsis likely 2/2 line infection -R chest permacath placed on previous admission -Low grade fever, tremulous, leukocytosis -F/U blood cultures, lactate 4) Hypertension -Norvasc 10mg -Clonidine 0.3 mg TID -Hydralazine 50mg Q8H -Cozaar 100mg daily -Continue to monitor BPs 5) CAD s/p CABG - Continue ASA and lipitor - Will hold plavix at this time as there is a concern for GI bleed 6) Diabetes Mellitus - Levemir 15 U - Medium dose ISS - Accuchecks ACHS 7) ESRD on HD TThS - went to HD yesterday, tolerated it well - Next session scheduled for Monday - Nephrology, Dr. Garrett following 8) Chest pain, r/o ACS - EKG stable compared to prior EKG - Borderline Troponin, will repeat Q6H - Cardiology consulted f/u recommendations 9) GI/DVT ppx -Protonix 40mg IV BID -Will hold AC at this time <Teresa ZEPEDA,Corey - Last Filed: 04/10/17 14:19> Objective - Vital Signs/Intake and Output Vital Signs (last 24 hours): Temp Pulse Resp BP Pulse Ox 97 F L 93 H 19 133/68 99 04/10/17 11:58 04/10/17 11:58 04/10/17 11:58 04/10/17 11:58 04/10/17 05:58 - Medications Medications: Current Medications Amlodipine Besylate (Norvasc) 10 mg PO DAILY [facility] Last Admin: 04/10/17 09:00 Dose: 10 mg Aspirin (Aspirin Chewable) 81 mg PO DAILY [facility] Last Admin: 04/10/17 09:02 Dose: 81 mg Atorvastatin Calcium (Lipitor) 40 mg PO HS [facility] Last Admin: 04/09/17 21:22 Dose: 40 mg Clonidine HCl (Catapres) 0.3 mg PO TID [facility] Last Admin: 04/10/17 09:00 Dose: 0.3 mg Clopidogrel Bisulfate (Plavix) 75 mg PO DAILY [facility] Last Admin: 04/09/17 12:09 Dose: 75 mg Hydralazine HCl (Apresoline) 50 mg PO Q8 [facility] Last Admin: 04/10/17 05:27 Dose: 50 mg Hydralazine HCl (Apresoline) 10 mg IVP Q6 PRN PRN Reason: Systolic Blood Pressure Last Admin: 04/09/17 12:07 Dose: 10 mg Sodium Chloride (Sodium Chloride 0.45%) 1,000 mls @ 70 mls/hr IV .[id number] [facility] Last Admin: 04/10/17 09:20 Dose: Not Given Pantoprazole Sodium (Protonix 40mg Ivpb) 40 mg in 100 mls @ 20 mls/hr IVPB .Q5H [facility] Last Admin: 04/10/17 06:47 Dose: 20 mls/hr Insulin Detemir (Levemir) 15 unit SC Q12 [facility] Last Admin: 04/08/17 23:07 Dose: 15 unit Insulin Human Lispro (Humalog Med) 0 units SC ACHS [facility] PRN Reason: Protocol Last Admin: 04/10/17 12:15 Dose: 3 units Losartan Potassium (Cozaar) 100 mg PO DAILY [facility] Last Admin: 04/10/17 09:02 Dose: 100 mg Metoclopramide HCl (Reglan) 5 mg PO 0600,2200 [facility] Ondansetron HCl (Zofran Inj) 4 mg IVP Q6 PRN PRN Reason: Nausea/Vomiting Last Admin: 04/09/17 14:55 Dose: 4 mg Pantoprazole Sodium (Protonix Inj) 40 mg IVP BID [facility] Last Admin: 04/10/17 09:19 Dose: Not Given Vitamin B Complex/Vit C/Folic Acid (Nephro-Eleni) 1 tab PO 0800 [facility] Last Admin: 04/10/17 09:00 Dose: 1 tab Attending/Attestation - Attestation I have personally seen and examined this patient.: Yes I have fully participated in the care of the patient.: Yes I have reviewed all pertinent clinical information, including history, physical exam and plan: Yes Notes (Text): 04/10/17 14:16 Patient was seen and examined with medical record clerk. 56 year old male with a past medical history significant for hypertension, DM II , CAD SP CABG , ESRD was recently started on on hemodialysis, Marijuana abuse was admitted with history of lose consciousness, was not hypoglycemic, gave history of incontinence of stool, there was no tongue bite.There is no focal lose, concern for seizure, MRI of Brain is normal l. Neurology follow up is appreciated. \Patient is having intractable Nausea and vomiting yesterday, some questionable hematemesis, CT abdomen and Pelvis is negative,, will start patient on PPI, will get serial hemoglobin .We will get GI consult. Mild elevated troponin is likely due to demand ischemia in setting of ESRD.We will monitor troponin. Management plan was discussed in detail with patient Education was provided.
[2017-04-09] MEDS: Multivitamin Vitamin B Complex (Nephro-Vite) Tab PO SCH (09:39)
--- NOTE | 2017-04-09 11:20 | CT ---
PROCEDURE: CT Abdomen and Pelvis with contrast HISTORY: abdominal pain, rule out diverticulitis COMPARISON: 03/25/2017. TECHNIQUE: Unenhanced study. Neither oral nor intravenous contrast administered. Sensitivity and specificity for acute inflammatory processes limited by the absence of oral and intravenous contrast. Radiation dose: Total exam DLP = MGy-cm. This CT exam was performed using one or more of the following dose reduction techniques: Automated exposure control, adjustment of the mA and/or kV according to patient size, and/or use of iterative reconstruction technique. FINDINGS: LOWER THORAX: Distal esophageal thickening. Small hiatal hernia. Findings suggest acute esophagitis. The findings are more prominent than seen on the prior study. LIVER: Unremarkable. No gross lesion or ductal dilatation. GALLBLADDER AND BILE DUCTS: Status post cholecystectomy. No abnormality is seen in the gallbladder fossa. PANCREAS: Atrophic pancreas without focal abnormality. SPLEEN: Unremarkable. ADRENALS: Unremarkable. No mass. KIDNEYS AND URETERS: Unremarkable. No hydronephrosis. No solid mass. VASCULATURE: Non aneurysmal abdominal aorta. Visceral branch calcifications are diffuse and severe. This includes splenic artery, renal arteries, mesenteric arteries. BOWEL: Unremarkable. No obstruction. No gross mural thickening. APPENDIX: Normal appendix. PERITONEUM: Unremarkable. No free fluid. No free air. LYMPH NODES: Unremarkable. No enlarged lymph nodes. BLADDER: No focal bladder wall abnormalities. Distended urinary bladder with air-fluid level suggests recent/prior instrumentation. No evidence of vesico enteric fistula or other pathologic process to account for this finding. REPRODUCTIVE: Unremarkable. BONES: No acute fracture. OTHER FINDINGS: None. IMPRESSION: No acute findings related to/accounting for the clinical presentation. Additional benign and/or incidental findings described above.
[2017-04-09] MEDS ORDERED: Insulin Lispro (humaLOG) MEDIUM Coverage SC SCH (11:30)
[2017-04-09] MEDS: Insulin Lispro (humaLOG) MEDIUM Coverage SC SCH ×3 (12:42→21:08)
[2017-04-09 12:45] LABS: PH,URINE 7.5 (4.7-8.0); URINE APPEARANCE SLIGHT-CLOUDY (CLEAR); URINE BILIRUBIN SMALL (NEGATIVE); URINE BLOOD SMALL (NEGATIVE); URINE GLUCOSE (UA) 250 mg/dL (NEGATIVE); URINE LEUKOCYTE ESTERASE NEGATIVE Leu/uL (NEGATIVE); URINE NITRATE NEGATIVE (NEGATIVE); URINE PROTEIN >=300 mg/dL (<30 mg/dL); URINE UROBILINOGEN 0.2 E.U./dL (<1 E.U./dL)
[2017-04-09 12:53] LABS: URINE AMORPHOUS SEDIMENT SMALL; URINE RBC 20 - 25 /hpf (0-2)
[2017-04-09 13:07] LABS: BARBITURATES, UR NEGATIVE (NEGATIVE); BENZODIAZEPINES, UR NEGATIVE (NEGATIVE); OPIATES, UR NEGATIVE (NEGATIVE); PHENCYCLIDINE, UR NEGATIVE (NEGATIVE)
--- NOTE | 2017-04-09 13:41 | CARD ---
APPROVED REPORT EKG Measurement Heart [id number] OR 166P70 [id number] <Conclusion> Normal sinus rhythm Left ventricular hypertrophy with QRS widening Inferior infarct, possibly acute T wave abnormality, consider lateral ischemia ACUTE MD Consider right ventricular involvement in acute inferior infarct Abnormal ECG
--- NOTE | 2017-04-09 13:54 | CARD ---
APPROVED REPORT EKG Measurement Heart [id number] [place] 174P69 [id number] <Conclusion> Normal sinus rhythm Left ventricular hypertrophy with QRS widening Inferior infarct, possibly acute ACUTE VT Consider right ventricular involvement in acute inferior infarct Abnormal ECG
[2017-04-09] MEDS ORDERED: Heparin 25,000units in D5W 25,000 UNITS/250 ML BAG IV SCH (14:00)
--- NOTE | 2017-04-09 14:01 | CARD ---
APPROVED REPORT EKG Measurement Heart [id number] CO 162P73 [id number] <Conclusion> Sinus tachycardia Inferior infarct, possibly acute ACUTE ND Consider right ventricular involvement in acute inferior infarct Abnormal ECG
--- NOTE | 2017-04-09 14:01 | CARD ---
APPROVED REPORT EKG Measurement Heart [id number] NE 182P66 [id number] <Conclusion> Normal sinus rhythm Left ventricular hypertrophy with QRS widening and repolarization abnormality Inferior infarct, age undetermined Abnormal ECG
--- NOTE | 2017-04-09 14:08 | RAD ---
HISTORY: Shortness of breath. COMPARISON: April 08, 2017. FINDINGS: LUNGS: No active pulmonary disease. PLEURA: No significant pleural effusion identified, no pneumothorax apparent. CARDIOVASCULAR: No radiographic findings to suggest acute or significant cardiovascular disease. Venous access catheter in stable, satisfactory position. OSSEOUS STRUCTURES: No significant abnormalities. VISUALIZED UPPER ABDOMEN: Normal. OTHER FINDINGS: None. IMPRESSION: No active disease. No significant interval change compared to the prior examination(s).
[2017-04-09] MEDS ORDERED: Vancomycin 1gm in NS 250ml 1 GM/250 ML BAG IVPB ONE (14:30)
[2017-04-09 14:38] LABS: BASO # 0.03 K/mm3 (0.0-2.0); BASO % 0.3 % (0.0-3.0); EOS # 0.1 (0.0-0.7); EOS % 0.9 % (1.5-5.0); GRAN # 9.94 (1.4-6.5); GRAN % 84.5 % (50.0-68.0); HEMOGLOBIN 11.4 g/dL (14.0-18.0); LYMPH % 8.3 % (22.0-35.0); MEAN CELL VOLUME 81.7 fl (80.0-105.0); MEAN CORPUSCULAR HEMOGLOBIN 26.8 pg (25.0-35.0); MEAN CORPUSCULAR HGB CONC 32.8 g/dl (31.0-37.0); MEAN PLATELET VOLUME 11.8 fl (7.0-11.0); MONO # 0.7 (0.1-0.6); PLATELET COUNT 336 10^3/uL (120.0-450.0); RBC 4.26 10^6/uL (3.5-6.1); RED CELL DISTRIBUTION WIDTH 15.5 % (11.5-14.5); WHITE BLOOD COUNT 11.8 10^3/ul (4.5-11.0)
--- NOTE | 2017-04-09 14:39 | CP.PCM.CON ---
History of Present Illness - History of Present Illness History of Present Illness: Mr. Lay is a 56-year-old man with a past medical history of ESRD (on HD), DM , HTN, who states that he recalls injecting himself with insulin, then losing consciousness. He woke up in the morning with bowel incontinence. When I saw the patient today, he was nauseous and vomiting blood and bile. He was otherwise awake, and alert and followed commands, but was clearly in distress. I spoke with his primary and asked for stat labs and a chest X-ray. He as given Zofran and Reglan and is on a PPI. Review of Systems - Review of Systems All systems: reviewed and no additional remarkable complaints except Past Patient History - Infectious Disease Hx of Infectious Diseases: None - Tetanus Immunizations Tetanus Immunization: Unknown - Past Medical History & Family History Past Medical History?: Yes - Past Social History Smoking Status: Never Smoked - CARDIAC Hx Cardiac Disorders: Yes (CABG x 3) Hx Hypertension: Yes - PULMONARY Hx Respiratory Disorders: Yes Other/Comment: PULMONARY EDEMA - NEUROLOGICAL HX Cerebrovascular Accident: Yes - HEENT Hx HEENT Problems: Yes (CONTACT LENSES) - RENAL Hx Renal Failure: Yes - ENDOCRINE/METABOLIC Hx Diabetes Mellitus Type 1: Yes - HEMATOLOGICAL/ONCOLOGICAL Hx Blood Disorders: No - INTEGUMENTARY Hx Dermatological Problems: Yes Other/Comment: millicent hernández ext rash, pt stated "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" - MUSCULOSKELETAL/RHEUMATOLOGICAL Hx Musculoskeletal Disorders: No Hx Falls: No Other/Comment: generalized weakness - GASTROINTESTINAL Hx Gastrointestinal Disorders: No - GENITOURINARY/GYNECOLOGICAL Hx Urinary Tract Infection: Yes - PSYCHIATRIC Hx Psychophysiologic Disorder: No Hx Depression: No Hx Emotional Abuse: No Hx Physical Abuse: No Hx Substance Use: Yes (MARIJUANA) - SURGICAL HISTORY Hx Amputation: Yes (R toes) Hx Cardiac Catheterization: Yes (09/09) Hx Coronary Stent: Yes Hx Open Heart Surgery: Yes (12-26-12) - ANESTHESIA Hx Anesthesia: Yes Hx Anesthesia Reactions: No Meds Allergies/Adverse Reactions: Allergies Allergy/AdvReac Type Severity Reaction Status Date / Time morphine Allergy ANAPHYLAXIS Verified 04/08/17 14:04 sea food Allergy Severe ANAPHYLAXIS Uncoded 04/08/17 14:04 - Medications Medications: Current Medications Amlodipine Besylate (Norvasc) 10 mg PO DAILY [facility] Last Admin: 04/09/17 09:51 Dose: 10 mg Aspirin (Aspirin Chewable) 81 mg PO DAILY [facility] Last Admin: 04/09/17 12:09 Dose: 81 mg Atorvastatin Calcium (Lipitor) 40 mg PO HS [facility] Last Admin: 04/08/17 23:22 Dose: Not Given Clonidine HCl (Catapres) 0.3 mg PO TID [facility] Last Admin: 04/09/17 09:53 Dose: 0.3 mg Clopidogrel Bisulfate (Plavix) 75 mg PO DAILY [facility] Last Admin: 04/09/17 12:09 Dose: 75 mg Hydralazine HCl (Apresoline) 50 mg PO Q8 [facility] Last Admin: 04/09/17 06:23 Dose: 50 mg Hydralazine HCl (Apresoline) 10 mg IVP Q6 PRN PRN Reason: Systolic Blood Pressure Last Admin: 04/09/17 12:07 Dose: 10 mg Vancomycin HCl (Vancomycin 1gm) 1 gm in 250 mls @ 167 mls/hr IVPB ONCE ONE PRN Reason: Protocol Stop: 04/09/17 15:59 Piperacillin Sod/Tazobactam Sod (Zosyn 2.25 Gm In 0.9% 100 Ml) 2.25 gm in 100 mls @ 100 mls/hr IVPB Q8 [facility] PRN Reason: Protocol Stop: 04/09/17 22:59 Insulin Detemir (Levemir) 15 unit SC Q12 [facility] Last Admin: 04/08/17 23:07 Dose: 15 unit Insulin Human Lispro (Humalog Med) 0 units SC ACHS [facility] PRN Reason: Protocol Last Admin: 04/09/17 12:42 Dose: 5 units Losartan Potassium (Cozaar) 100 mg PO DAILY [facility] Last Admin: 04/09/17 09:51 Dose: 100 mg Metoclopramide HCl (Reglan) 5 mg IVP TID PRN PRN Reason: Nausea/Vomiting Last Admin: 04/09/17 12:08 Dose: 5 mg Ondansetron HCl (Zofran Inj) 4 mg IVP Q6 PRN PRN Reason: Nausea/Vomiting Last Admin: 04/09/17 08:03 Dose: 4 mg Pantoprazole Sodium (Protonix Inj) 40 mg IVP BID [facility] Vitamin B Complex/Vit C/Folic Acid (Nephro-Eleni) 1 tab PO 0800 [facility] Last Admin: 04/09/17 09:39 Dose: 1 tab Physical Exam - Constitutional Additional comments: Vomiting and heavy respirations - Head Exam Head Exam: ATRAUMATIC, NORMAL INSPECTION, NORMOCEPHALIC - Eye Exam Eye Exam: EOMI, Normal appearance, PERRL - ENT Exam ENT Exam: Mucous Membranes Moist - Neck Exam Neck exam: Positive for: Full Rom - Respiratory Exam Respiratory Exam: Stridor - Cardiovascular Exam Cardiovascular Exam: RRR, +S1, +S2 - GI/Abdominal Exam GI & Abdominal Exam: Distended - Rectal Exam Rectal Exam: Deferred - Extremities Exam Extremities exam: Positive for: normal inspection - Back Exam Back exam: NORMAL INSPECTION - Neurological Exam Neurological exam: Alert, CN II-XII Intact, Oriented x3, Reflexes Normal Additional comments: All extremities had normal movement, no sensory changes, no nystagmus, no dysarthria, no ataxia. Gait was not assessed since the patient was vomiting and in distress. Reflexes are normal. - Psychiatric Exam Psychiatric exam: Anxious - Skin Skin Exam: Dry, Intact, Normal Color, Warm Results - Vital Signs Recent Vital Signs: Last Vital Signs Temp 98.5 F 04/09/17 12:00 Pulse 94 H 04/09/17 12:07 Resp 19 04/09/17 12:00 BP 192/90 H 04/09/17 12:07 Pulse Ox 93 L 04/09/17 06:00 - Labs Result Diagrams: 04/09/17 07:42 04/09/17 07:42 Labs: Laboratory Results - last 24 hr 04/08/17 04/08/17 04/09/17 21:04 23:54 07:42 WBC 11.0 D RBC 4.28 Hgb 11.4 L Hct 34.4 L MCV 80.4 MCH 26.6 MCHC 33.1 RDW 15.0 H Plt Count 303 MPV 11.3 H Gran % 83.9 H Lymph % (Auto) 10.7 L Page % (Auto) 5.1 Eos % (Auto) 0.0 L Baso % (Auto) 0.3 Gran # 9.19 H Lymph # 1.2 Page # 0.6 Eos # 0.0 Baso # 0.03 Sodium 140 Potassium 3.5 L Chloride 104 Carbon Dioxide 17 L Anion Gap 23 H BUN 10 Creatinine 3.8 H Est GFR ( Amer) 20 Est GFR (Non-Af Amer) 17 POC Glucose (mg/dL) 143 H Random Glucose 159 H Calcium 7.9 L Phosphorus 2.4 L Magnesium 1.7 Total Bilirubin 0.8 AST 33 ALT 19 Alkaline Phosphatase 102 Troponin I Total Protein 6.1 Albumin 3.6 Globulin 2.5 Albumin/Globulin Ratio 1.4 Urine Color Urine Appearance Urine pH Ur Specific [place] Urine Protein Urine Glucose (UA) Urine Ketones Urine Blood Urine Nitrate Urine Bilirubin Urine Urobilinogen Ur Leukocyte Esterase Urine RBC Urine WBC Ur Epithelial Cells Amorphous Sediment Urine Opiates Screen Urine Methadone Screen Ur Barbiturates Screen Ur Phencyclidine Scrn Ur Amphetamines Screen U Benzodiazepines Scrn U Oth Cocaine Metabols U Cannabinoids Screen 04/09/17 04/09/17 04/09/17 07:42 12:40 12:40 WBC RBC Hgb Hct MCV MCH MCHC RDW Plt Count MPV Gran % Lymph % (Auto) Page % (Auto) Eos % (Auto) Baso % (Auto) Gran # Lymph # Page # Eos # Baso # Sodium 141 Potassium 3.7 Chloride 97 L Carbon Dioxide 19 L Anion Gap 29 H BUN 17 Creatinine 5.3 H Est GFR ( Amer) 14 Est GFR (Non-Af Amer) 11 POC Glucose (mg/dL) Random Glucose 237 H Calcium 8.8 Phosphorus Magnesium Total Bilirubin AST ALT Alkaline Phosphatase Troponin I 0.08 D Total Protein Albumin Globulin Albumin/Globulin Ratio Urine Color yellow Urine Appearance Slight-cloudy Urine pH 7.5 Ur Specific [place] 1.020 Urine Protein >=300 H Urine Glucose (UA) 250 H Urine Ketones 40 H Urine Blood Small H Urine Nitrate Negative Urine Bilirubin Small H Urine Urobilinogen 0.2 Ur Leukocyte Esterase Negative Urine RBC 20 - 25 Urine WBC 5 - 10 Ur Epithelial Cells 4 - 5 Amorphous Sediment Small Urine Opiates Screen Negative Urine Methadone Screen Negative Ur Barbiturates Screen Negative Ur Phencyclidine Scrn Negative Ur Amphetamines Screen Negative U Benzodiazepines Scrn Negative U Oth Cocaine Metabols Negative U Cannabinoids Screen Positive H 04/09/17 13:20 WBC RBC Hgb Hct MCV MCH MCHC RDW Plt Count MPV Gran % Lymph % (Auto) Page % (Auto) Eos % (Auto) Baso % (Auto) Gran # Lymph # Page # Eos # Baso # Sodium Potassium Chloride Carbon Dioxide Anion Gap BUN Creatinine Est GFR ( Amer) Est GFR (Non-Af Amer) POC Glucose (mg/dL) Random Glucose Calcium Phosphorus Magnesium Total Bilirubin AST ALT Alkaline Phosphatase Troponin I 0.10 D Total Protein Albumin Globulin Albumin/Globulin Ratio Urine Color Urine Appearance Urine pH Ur Specific [place] Urine Protein Urine Glucose (UA) Urine Ketones Urine Blood Urine Nitrate Urine Bilirubin Urine Urobilinogen Ur Leukocyte Esterase Urine RBC Urine WBC Ur Epithelial Cells Amorphous Sediment Urine Opiates Screen Urine Methadone Screen Ur Barbiturates Screen Ur Phencyclidine Scrn Ur Amphetamines Screen U Benzodiazepines Scrn U Oth Cocaine Metabols U Cannabinoids Screen - Imaging and Cardiology CT scan - head Status: Image reviewed by me, Report reviewed by me (No acute findings. ) Assessment & Plan (1) Syncope Assessment and Plan: Neurologically, there are no signs of posterior circulation compromise and he appears to be cognitively intact. The differential for his loss of consciousness includes hypoglycemia, metabolic derangements or neurocardiogenic. Seizure from the aforementioned conditions is also possible. I recommend: 1. MRI of the brain 2. EEG 3. GI consult 4. Avoid hyponatremia 5. Telemetry 6. Treat underlying infections Thank you. Status: Acute Priority: High
[2017-04-09 14:42] LABS: ALB/GLOB RATIO 1.6 (1.1-1.8); ALBUMIN 4.2 g/dL (3.0-4.8); CALCIUM 9.2 mg/dL (8.4-10.5)
[2017-04-09] MEDS: Piperacillin/Tazobact 2.25gm 2.25 GM/100 ML BAG IVPB SCH ×2 (14:54→21:23)
--- NOTE | 2017-04-09 16:33 | CP.PCM.PN ---
Subjective - Date & Time of Evaluation Date of Evaluation: 04/09/17 Time of Evaluation: 13:00 - Subjective Subjective: renal note Pt seen and examined. labs vitals reviewed c/o nausea/vomitting had HD yesterday next HD monday BP meds resumed ? symptoms due to Marijuana use Objective - Vital Signs/Intake and Output Vital Signs (last 24 hours): Temp Pulse Resp BP Pulse Ox 98.5 F 109 H 19 139/70 93 L 04/09/17 12:00 04/09/17 14:56 04/09/17 12:00 04/09/17 14:56 04/09/17 06:00 Intake and Output: 04/09/17 04/09/17 06:59 18:59 Intake Total 240 Output Total 0 Balance 240 - Medications Medications: Current Medications Amlodipine Besylate (Norvasc) 10 mg PO DAILY [facility] Last Admin: 04/09/17 09:51 Dose: 10 mg Aspirin (Aspirin Chewable) 81 mg PO DAILY [facility] Last Admin: 04/09/17 12:09 Dose: 81 mg Atorvastatin Calcium (Lipitor) 40 mg PO HS [facility] Last Admin: 04/08/17 23:22 Dose: Not Given Clonidine HCl (Catapres) 0.3 mg PO TID [facility] Last Admin: 04/09/17 14:56 Dose: 0.3 mg Clopidogrel Bisulfate (Plavix) 75 mg PO DAILY [facility] Last Admin: 04/09/17 12:09 Dose: 75 mg Hydralazine HCl (Apresoline) 50 mg PO Q8 [facility] Last Admin: 04/09/17 14:54 Dose: 50 mg Hydralazine HCl (Apresoline) 10 mg IVP Q6 PRN PRN Reason: Systolic Blood Pressure Last Admin: 04/09/17 12:07 Dose: 10 mg Piperacillin Sod/Tazobactam Sod (Zosyn 2.25 Gm In 0.9% 100 Ml) 2.25 gm in 100 mls @ 100 mls/hr IVPB Q8 [facility] PRN Reason: Protocol Stop: 04/09/17 22:59 Last Admin: 04/09/17 14:54 Dose: 100 mls/hr Sodium Chloride (Sodium Chloride 0.45%) 1,000 mls @ 70 mls/hr IV .[id number] [facility] Insulin Detemir (Levemir) 15 unit SC Q12 [facility] Last Admin: 04/08/17 23:07 Dose: 15 unit Insulin Human Lispro (Humalog Med) 0 units SC ACHS [facility] PRN Reason: Protocol Last Admin: 04/09/17 12:42 Dose: 5 units Losartan Potassium (Cozaar) 100 mg PO DAILY [facility] Last Admin: 04/09/17 09:51 Dose: 100 mg Metoclopramide HCl (Reglan) 5 mg IVP TID PRN PRN Reason: Nausea/Vomiting Last Admin: 04/09/17 12:08 Dose: 5 mg Ondansetron HCl (Zofran Inj) 4 mg IVP Q6 PRN PRN Reason: Nausea/Vomiting Last Admin: 04/09/17 14:55 Dose: 4 mg Pantoprazole Sodium (Protonix Inj) 40 mg IVP BID [facility] Vitamin B Complex/Vit C/Folic Acid (Nephro-Eleni) 1 tab PO 0800 [facility] Last Admin: 04/09/17 09:39 Dose: 1 tab - Labs Labs: 04/09/17 14:30 04/09/17 14:30
[2017-04-09] MEDS: Sodium Chloride 0.45% 1,000 ML IV SCH (18:31)
[2017-04-09] MEDS: Metoclopramide 5 mg/5 ml Oral Sol PO SCH (21:22)
[2017-04-09 21:39] LABS: HEMOGLOBIN 9.8 g/dL (14.0-18.0); MEAN CELL VOLUME 81.1 fl (80.0-105.0); MEAN CORPUSCULAR HEMOGLOBIN 26.4 pg (25.0-35.0); MEAN CORPUSCULAR HGB CONC 32.6 g/dl (31.0-37.0); MEAN PLATELET VOLUME 10.7 fl (7.0-11.0); RBC 3.71 10^6/uL (3.5-6.1); RED CELL DISTRIBUTION WIDTH 15.1 % (11.5-14.5); WHITE BLOOD COUNT 11.9 10^3/ul (4.5-11.0)
[2017-04-09] MEDS: Pantoprazole 40mg/100ml IVPB 40 MG/100 ML BAG IVPB SCH (22:40)
--- NOTE | 2017-04-10 00:42 | CON ---
DATE: 04/09/2017 REQUESTING PHYSICIAN: Dr. Muir. REASON FOR CONSULT: I have been asked to see this 56-year-old male with known history of diabetes mellitus, coronary artery disease status post CABG several years ago, poorly controlled hypertension, and hyperglycemia with questionable compliance to medications who apparently had a syncopal episode at home after taking insulin. The patient also has been having nausea, vomiting, chest pain, and abdominal pain. The patient has had several episodes of vomiting today including coffee-ground and prior red blood. His hemoglobin is in stable in the 11.4 g range. He currently is not giving a detailed history. He is awake but somewhat slow in his verbal response. He also appears to be somewhat confused. The patient denies any drug use, but review of his urine tox screen is positive for cannabis. PAST MEDICAL HISTORY: As above. Again, he has a history of diabetes mellitus, poorly controlled hypertension, coronary artery disease status post CABG, congestive heart failure, and end-stage renal disease, on dialysis. PAST SURGICAL HISTORY: Notable for amputation of his right toe. SOCIAL HISTORY: Denies cigarette smoking. He is a former alcohol abuser, having quit several years ago. He also smokes marijuana. The patient was recently discharged from the hospital several weeks ago. He was admitted for chest pain and possible acute coronary syndrome. PHYSICAL EXAMINATION GENERAL: A middle-aged male lying in bed, awake, but slow to communicate firmly. He appears to be somewhat confused. VITAL SIGNS: Reveal a temperature of 98.3, blood pressure 167/82, heart rate of 103. HEENT: Reveal sclerae to be white. Conjunctivae pink. NECK: Supple. CHEST: Reveal lungs to be clear. HEART: Exam reveals regular rate and rhythm. ABDOMEN: Soft, mild diffuse tenderness. No rebound, no guarding. EXTREMITIES: Show no edema. LABORATORY DATA: Reveal a white blood cell count of 11.8, hemoglobin 11.4. Chemistries reveal chloride of 96, BUN 20, creatinine 6.0. Note his hemoglobin has remained in the 11.4 g range all of today. He came early in the morning with a hemoglobin of 12, so his hemoglobin has essentially remained stable. His toxicology screen is positive for cannabis. IMPRESSION: A 56-year-old male admitted to the hospital with possible syncope with altered mental status, nausea, vomiting with a CT scan of the abdomen showing some nonspecific thickening of the esophagus, possibly related to esophagitis without any acute changes in his GI tract with nausea, vomiting, and abdominal pain. Etiology of his nausea and vomiting are unclear. It may be related to excessive cannabis use. The patient is somewhat confused at this time. He did have some coffee-ground emesis with episodes of viri hematemesis. His CBC has remained stable, we may have a gastritis. There is no evidence of bowel obstruction on CT scan. RECOMMENDATIONS 1. Follow serial hematocrits. 2. Continue IV Protonix. 3. I will start the patient on Reglan 10 mg IV q. 6 hours. 4. Final serial hematocrits. Eddie Curry MD
[2017-04-10] MEDS: Pantoprazole 40mg/100ml IVPB 40 MG/100 ML BAG IVPB SCH ×5 (02:02→21:28)
[2017-04-10] MEDS: Metoclopramide 5 mg/5 ml Oral Sol PO SCH ×2 (05:27→21:28)
[2017-04-10 07:32] LABS: BASO # 0.04 K/mm3 (0.0-2.0); BASO % 0.4 % (0.0-3.0); EOS # 0.1 (0.0-0.7); EOS % 0.5 % (1.5-5.0); HEMOGLOBIN 9.2 g/dL (14.0-18.0); LYMPH # 1.9 (1.2-3.4); LYMPH % 20.2 % (22.0-35.0); MEAN CELL VOLUME 82.2 fl (80.0-105.0); MEAN CORPUSCULAR HGB CONC 31.6 g/dl (31.0-37.0); MEAN PLATELET VOLUME 9.5 fl (7.0-11.0); MONO # 0.6 (0.1-0.6); MONO % 5.9 % (1.0-6.0); PLATELET COUNT 243 10^3/uL (120.0-450.0); RBC 3.54 10^6/uL (3.5-6.1); RED CELL DISTRIBUTION WIDTH 15.3 % (11.5-14.5); WHITE BLOOD COUNT 9.3 10^3/ul (4.5-11.0)
[2017-04-10 07:46] LABS: ALB/GLOB RATIO 1.4 (1.1-1.8); ALBUMIN 3.4 g/dL (3.0-4.8); CALCIUM 8.4 mg/dL (8.4-10.5)
[2017-04-10] MEDS: Insulin Lispro (humaLOG) MEDIUM Coverage SC SCH ×4 (07:52→23:00)
[2017-04-10 07:56] LABS: TROPONIN I 0.08 ng/mL
--- NOTE | 2017-04-10 08:53 | RAD ---
HISTORY: chf COMPARISON: No prior. FINDINGS: LUNGS: No active pulmonary disease. PLEURA: No significant pleural effusion identified, no pneumothorax apparent. CARDIOVASCULAR: Mild cardiomegaly OSSEOUS STRUCTURES: Sternal wires VISUALIZED UPPER ABDOMEN: Normal. OTHER FINDINGS: None. IMPRESSION: No active disease.
[2017-04-10] MEDS: Multivitamin Vitamin B Complex (Nephro-Vite) Tab PO SCH (09:00)
--- NOTE | 2017-04-10 09:11 | CP.PCM.PN ---
<Nancy Clemens - Last Filed: 04/10/17 14:39> Subjective - Date & Time of Evaluation Date of Evaluation: 04/10/17 Time of Evaluation: 07:15 - Subjective Subjective: Nancy Clemens DO, PGY-1, Internal Medicine, Hospitalist Service Patient seen and examined at bedside. Per nursing no acute events overnight. Patient is feeling better, reports nausea has resolved and hasn't vomited since 11pm last night. Patient currently hungry. Denies headaches, dizziness, cp, sob , abdominal pain, urinary symptoms, changes in bowel habits. Objective - Vital Signs/Intake and Output Vital Signs (last 24 hours): Temp Pulse Resp BP Pulse Ox 98.0 F 67 19 138/58 L 99 04/10/17 05:58 04/10/17 09:00 04/10/17 05:58 04/10/17 09:00 04/10/17 05:58 Intake and Output: 04/10/17 04/10/17 06:59 18:59 Intake Total 1090 Output Total 0 Balance 1090 - Medications Medications: Current Medications Amlodipine Besylate (Norvasc) 10 mg PO DAILY [facility] Last Admin: 04/10/17 09:00 Dose: 10 mg Aspirin (Aspirin Chewable) 81 mg PO DAILY [facility] Last Admin: 04/10/17 09:02 Dose: 81 mg Atorvastatin Calcium (Lipitor) 40 mg PO HS [facility] Last Admin: 04/09/17 21:22 Dose: 40 mg Clonidine HCl (Catapres) 0.3 mg PO TID [facility] Last Admin: 04/10/17 09:00 Dose: 0.3 mg Clopidogrel Bisulfate (Plavix) 75 mg PO DAILY [facility] Last Admin: 04/09/17 12:09 Dose: 75 mg Hydralazine HCl (Apresoline) 50 mg PO Q8 [facility] Last Admin: 04/10/17 05:27 Dose: 50 mg Hydralazine HCl (Apresoline) 10 mg IVP Q6 PRN PRN Reason: Systolic Blood Pressure Last Admin: 04/09/17 12:07 Dose: 10 mg Sodium Chloride (Sodium Chloride 0.45%) 1,000 mls @ 70 mls/hr IV .[id number] [facility] Last Admin: 04/09/17 18:31 Dose: 70 mls/hr Pantoprazole Sodium (Protonix 40mg Ivpb) 40 mg in 100 mls @ 20 mls/hr IVPB .Q5H [facility] Last Admin: 04/10/17 06:47 Dose: 20 mls/hr Potassium Chloride (Potassium Chloride 20 Meq/100 Ml) 20 meq in 100 mls @ 50 mls/hr IVPB Q2H [facility] Stop: 04/10/17 12:59 Insulin Detemir (Levemir) 15 unit SC Q12 [facility] Last Admin: 04/08/17 23:07 Dose: 15 unit Insulin Human Lispro (Humalog Med) 0 units SC ACHS [facility] PRN Reason: Protocol Last Admin: 04/10/17 07:52 Dose: Not Given Losartan Potassium (Cozaar) 100 mg PO DAILY [facility] Last Admin: 04/10/17 09:02 Dose: 100 mg Metoclopramide HCl (Reglan) 10 mg PO 0600,1130,1630,2200 [facility] Last Admin: 04/10/17 05:27 Dose: 10 mg Ondansetron HCl (Zofran Inj) 4 mg IVP Q6 PRN PRN Reason: Nausea/Vomiting Last Admin: 04/09/17 14:55 Dose: 4 mg Pantoprazole Sodium (Protonix Inj) 40 mg IVP BID [facility] Last Admin: 04/09/17 17:29 Dose: 40 mg Vitamin B Complex/Vit C/Folic Acid (Nephro-Eleni) 1 tab PO 0800 [facility] Last Admin: 04/10/17 09:00 Dose: 1 tab - Labs Labs: 04/10/17 07:00 04/10/17 07:00 - Constitutional Appears: Non-toxic, No Acute Distress - Head Exam Head Exam: ATRAUMATIC, NORMAL INSPECTION - Eye Exam Eye Exam: EOMI, Normal appearance Pupil Exam: NORMAL ACCOMODATION - ENT Exam ENT Exam: Mucous Membranes Moist - Neck Exam Neck Exam: Full ROM - Respiratory Exam Respiratory Exam: Clear to Ausculation Bilateral, NORMAL BREATHING PATTERN. absent: Rales, Rhonchi, Wheezes - Cardiovascular Exam Cardiovascular Exam: REGULAR RHYTHM, +S1, +S2 Additional comments: + permacath on R chest wall - GI/Abdominal Exam GI & Abdominal Exam: Soft, Normal Bowel Sounds. absent: Guarding, Rigid, Tenderness, Rebound - Extremities Exam Extremities Exam: absent: Calf Tenderness, Pedal Edema Additional comments: R transmetatarsal amputation - Back Exam Back Exam: NORMAL INSPECTION - Neurological Exam Neurological Exam: Alert, Awake, Oriented x3 - Psychiatric Exam Psychiatric exam: Normal Affect, Normal Mood - Skin Skin Exam: Normal Color, Warm Assessment and Plan - Assessment and Plan (Free Text) Assessment: 56 year old male with a past medical history significant for hypertension, DM II , CAD s/p CABG (4.5 years ago), ESRD (just started on hemodialysis week 2) who presented to [facility] via EMS for loss of consciousness. He states that after taking his insulin at bedtime he passed out and the next thing he remembers was waking up on the floor with stool in his pants. His roomate called 911 and Mr. Lay was brought to [facility]. He admits to having some abdominal since his discharge last week. He admits to vomiting, nausea, and abdominal pain on admission. Plan: 1) AMS possibly secondary to seizure vs stroke vs marijuana use - Admitted to telemetry - CT head negative, MRI brain no acute findings - F/U EEG results - Neurology consulted, f/u recommendations - Urine drug screen positive for cannibinoids - Neurochecks q4h, seizure, aspiration and fall precautions 2) Coffee ground emesis, r/o GI bleed - Nausea and vomiting possibly 2/2 marijuana withdrawal - Hgb 9.8 --> 9.2, will f/u afternoon cbc - Reglan prn nausea - IV protonix drip - CT abd/pelvis: no acute findings - Patient reports that he is feeling better, will start on clear liquid diet - GI consulted, f/u recommendations - F/U Stool occult 3) Sepsis possibly 2/2 line infection - R chest permacath placed on previous admission - Leukocytosis resolved, afebrile, lactate wnl - s/p Vancomycin x 1 dose, Zosyn x 2 doses - F/U cultures 4) Hypertension - Norvasc 10mg daily - Clonidine 0.3mg TID - Hydralazine 50mg Q8H, Hydralazine prn - Cozaar 100mg PO daily - Continue BP monitoring 5) CAD s/p CABG - Continue ASA, Lipitor 40mg daily - Will hold plavix at this time as there is a concern for GI bleed 6) Diabetes Mellitus - Levemir 15 U - Medium dose ISS - Accuchecks ACHS 7) ESRD on HD TThS - Next session scheduled for Monday - Nephrology, Dr. Garrett following 8) , r/o ACS - EKG stable compared to prior - Troponins trending down - Mild elevation in troponins likely due to demand ischemia in setting of ESRD - Cardiology consulted f/u recommendations 9) Hypokalemia - Will repleat with Kcl - Continue to monitor 10) GI/DVT ppx -Protonix 40mg IV BID -Will hold AC at this time <Corey Moore MD - Last Filed: 04/10/17 15:48> Objective - Vital Signs/Intake and Output Vital Signs (last 24 hours): Temp Pulse Resp BP Pulse Ox 97 F L 93 H 19 129/82 99 04/10/17 11:58 04/10/17 14:20 04/10/17 11:58 04/10/17 14:20 04/10/17 05:58 Intake and Output: 04/10/17 04/10/17 06:59 18:59 Intake Total 480 Output Total 0 Balance 480 - Medications Medications: Current Medications Amlodipine Besylate (Norvasc) 10 mg PO DAILY [facility] Last Admin: 04/10/17 09:00 Dose: 10 mg Aspirin (Aspirin Chewable) 81 mg PO DAILY [facility] Last Admin: 04/10/17 09:02 Dose: 81 mg Atorvastatin Calcium (Lipitor) 40 mg PO HS [facility] Last Admin: 04/09/17 21:22 Dose: 40 mg Clonidine HCl (Catapres) 0.3 mg PO TID [facility] Last Admin: 04/10/17 14:19 Dose: 0.3 mg Clopidogrel Bisulfate (Plavix) 75 mg PO DAILY [facility] Last Admin: 04/09/17 12:09 Dose: 75 mg Cyanocobalamin (Vitamin B12 1000 Mcg Tab) 1,000 mcg PO DAILY [facility] Last Admin: 04/10/17 15:27 Dose: 1,000 mcg Ergocalciferol (Drisdol 50,000 Intl Units Cap) 1 cap PO Q7D [facility] Last Admin: 04/10/17 15:27 Dose: 1 cap Hydralazine HCl (Apresoline) 50 mg PO Q8 [facility] Last Admin: 04/10/17 14:20 Dose: 50 mg Hydralazine HCl (Apresoline) 10 mg IVP Q6 PRN PRN Reason: Systolic Blood Pressure Last Admin: 04/09/17 12:07 Dose: 10 mg Pantoprazole Sodium (Protonix 40mg Ivpb) 40 mg in 100 mls @ 20 mls/hr IVPB .Q5H [facility] Last Admin: 04/10/17 14:51 Dose: 20 mls/hr Insulin Detemir (Levemir) 15 unit SC Q12 [facility] Last Admin: 04/08/17 23:07 Dose: 15 unit Insulin Human Lispro (Humalog Med) 0 units SC ACHS [facility] PRN Reason: Protocol Last Admin: 04/10/17 12:15 Dose: 3 units Losartan Potassium (Cozaar) 100 mg PO DAILY [facility] Last Admin: 04/10/17 09:02 Dose: 100 mg Metoclopramide HCl (Reglan) 5 mg PO 0600,2200 [facility] Ondansetron HCl (Zofran Inj) 4 mg IVP Q6 PRN PRN Reason: Nausea/Vomiting Last Admin: 04/09/17 14:55 Dose: 4 mg Pantoprazole Sodium (Protonix Inj) 40 mg IVP BID [facility] Last Admin: 04/10/17 09:19 Dose: Not Given Vitamin B Complex/Vit C/Folic Acid (Nephro-Eleni) 1 tab PO 0800 [facility] Last Admin: 04/10/17 09:00 Dose: 1 tab - Labs Labs: 04/10/17 15:33 Attending/Attestation - Attestation I have personally seen and examined this patient.: Yes I have fully participated in the care of the patient.: Yes I have reviewed all pertinent clinical information, including history, physical exam and plan: Yes Notes (Text): 04/10/17 15:44 Patient was seen and examined with durable medical equipment repairer. 56 year old male with a past medical history significant for hypertension, DM II , CAD SP CABG , ESRD was recently started on on hemodialysis, Marijuana abuse was admitted with history of lose consciousness, was not hypoglycemic, gave history of incontinence of stool, there was no tongue bite.There is no focal lose, concern for seizure, MRI of Brain is normal . Patient Nausea and vomiting has improved.He is alert , awake today., CT abdomen and Pelvis is negative,Hemoglobin has dropped 11.4 to 8.7/We will continue PPI.GI is following.There is active bleeding.Patient had similar episode of Nausea/Vomiting and confusion last admission, could be due to Marijuana abuse. Mild elevated troponin is likely due to demand ischemia in setting of ESRD. Management plan was discussed in detail with patient Education was provided. 04/10/17 15:45
[2017-04-10] MEDS: Sodium Chloride 0.45% 1,000 ML IV SCH (09:20)
--- NOTE | 2017-04-10 13:03 | MRI ---
PROCEDURE: MRI BRAIN WITHOUT CONTRAST HISTORY: change of mental status, possible seizure COMPARISON: 04/07/2016 TECHNIQUE: Multiplanar, multisequence MR images of the brain were obtained without intravenous contrast enhancement. FINDINGS: HEMORRHAGE: None DWI: No evidence of an acute or early subacute infarction. BRAIN PARENCHYMA: No mass effect or edema. Minimal chronic microvascular changes. No acute findings VENTRICLES: Unremarkable. No hydrocephalus. CRANIUM: Unremarkable. ORBITS: Grossly unremarkable. PARANASAL SINUSES/MASTOIDS: Clear VASCULAR SYSTEM: Skull base flow voids intact. OTHER FINDINGS: None. IMPRESSION: No acute findings
--- NOTE | 2017-04-10 15:08 | CP.PCM.PN ---
Subjective - Date & Time of Evaluation Date of Evaluation: 04/10/17 Time of Evaluation: 14:59 - Subjective Subjective: Follow up Nephrology Consultation Note Assessment: Stable Diabetic chronic Kidney Disease (E11.22) with nephrotic syndrome Hypertensive Chronic Kidney Disease (I12.0) End stage renal disease (N18.6) dependence on hemodialysis (Z99.2) (TTS) via permacath Anemia (D64.9), Secondary Hyperparathyroidism (E21.1), HTN (I12.0) uncontrolled Hypokalemia, Vit D deficiency, active Marijuana abuse. syncope, fall at home ? cause esophagitis Plan: No acute need for dialysis today. Will plan for dialysis tomorrow. Continue with Nephrovite 1 tab/day. PRBC as needed for anemia. On BEREKET as Aransep 40 mcg weekly, last Hb 9.2. TSAT 11 % Ferritin 511. he also gets IV iron 100 mg with HD Continue with hectorol 1 mcg with dialysis. Last PTH level 463. BP control with meds as ordered. Patient on RAAS anjelica as Losartan. will check sec HTN work up with renin/carlo, metanephrine and renal artery doppler. hsi BP labile can range from SBP 100-200 Glycemic control, Dialysis consistent diet Further work up/management as per primary team Dose meds/antibiotics (if needed) for ESRD status. Avoid fleets enema/magnesium based laxatives. Pt was advised to abstain from marijuana, he is not willing to do so. d/c IVF. Thanks for allowing me to participate in care of your patient. Will follow patient with you. Please call if any Qs Dr Sancho Garrett Office: [phone] Subjective: Noted events overnight. Patients feels better. no further nausea/ vomitting. Denies chest pain, palpitation, shortness of breath, leg swelling. No urinary complaints. so far his work up has been neg for cause of his syncope/ fall. 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 Vitals reviewed and noted as below Lungs: Normal respiratory rate/effort. Breath sounds bilateral equal and clear Heart: Normal rate. s1s2 normal. No rub or gallop. Extremities: no edema. s/p forefoot amputation Neurological: Patient is alert, awake and oriented to person, place and time. No focal deficit. Strength bilateral appropriate and equal Skin: Warm and dry. Normal turgor. No rash. Palpitation: Normal elasticity for age Abdomen: Abdomen is soft. Bowel sounds +. There is no abdominal tenderness, no guarding/rigidity or organomegaly : kidney or bladder not palpable Access: Rt IJ permacath Labs/imaging reviewed. Past medical history, past surgical history, family history, social history, allergy reviewed Objective - Vital Signs/Intake and Output Vital Signs (last 24 hours): Temp Pulse Resp BP Pulse Ox 97 F L 93 H 19 129/82 99 04/10/17 11:58 04/10/17 14:20 04/10/17 11:58 04/10/17 14:20 04/10/17 05:58 Intake and Output: 04/10/17 04/10/17 06:59 18:59 Intake Total 480 Output Total 0 Balance 480 - Medications Medications: Current Medications Amlodipine Besylate (Norvasc) 10 mg PO DAILY [facility] Last Admin: 04/10/17 09:00 Dose: 10 mg Aspirin (Aspirin Chewable) 81 mg PO DAILY [facility] Last Admin: 04/10/17 09:02 Dose: 81 mg Atorvastatin Calcium (Lipitor) 40 mg PO HS [facility] Last Admin: 04/09/17 21:22 Dose: 40 mg Clonidine HCl (Catapres) 0.3 mg PO TID [facility] Last Admin: 04/10/17 14:19 Dose: 0.3 mg Clopidogrel Bisulfate (Plavix) 75 mg PO DAILY [facility] Last Admin: 04/09/17 12:09 Dose: 75 mg Hydralazine HCl (Apresoline) 50 mg PO Q8 [facility] Last Admin: 04/10/17 14:20 Dose: 50 mg Hydralazine HCl (Apresoline) 10 mg IVP Q6 PRN PRN Reason: Systolic Blood Pressure Last Admin: 04/09/17 12:07 Dose: 10 mg Sodium Chloride (Sodium Chloride 0.45%) 1,000 mls @ 70 mls/hr IV .[id number] [facility] Last Admin: 04/10/17 09:20 Dose: Not Given Pantoprazole Sodium (Protonix 40mg Ivpb) 40 mg in 100 mls @ 20 mls/hr IVPB .Q5H [facility] Last Admin: 04/10/17 14:51 Dose: 20 mls/hr Insulin Detemir (Levemir) 15 unit SC Q12 [facility] Last Admin: 04/08/17 23:07 Dose: 15 unit Insulin Human Lispro (Humalog Med) 0 units SC ACHS [facility] PRN Reason: Protocol Last Admin: 04/10/17 12:15 Dose: 3 units Losartan Potassium (Cozaar) 100 mg PO DAILY [facility] Last Admin: 04/10/17 09:02 Dose: 100 mg Metoclopramide HCl (Reglan) 5 mg PO 0600,2200 [facility] Ondansetron HCl (Zofran Inj) 4 mg IVP Q6 PRN PRN Reason: Nausea/Vomiting Last Admin: 04/09/17 14:55 Dose: 4 mg Pantoprazole Sodium (Protonix Inj) 40 mg IVP BID [facility] Last Admin: 04/10/17 09:19 Dose: Not Given Vitamin B Complex/Vit C/Folic Acid (Nephro-Eleni) 1 tab PO 0800 [facility] Last Admin: 04/10/17 09:00 Dose: 1 tab
[2017-04-10] MEDS ORDERED: Ergocalciferol 50,000 Intl Units Cap PO SCH (15:15)
[2017-04-10 15:37] LABS: BASO # 0.06 K/mm3 (0.0-2.0); BASO % 0.6 % (0.0-3.0); EOS # 0.2 (0.0-0.7); EOS % 1.5 % (1.5-5.0); GRAN # 7.33 (1.4-6.5); GRAN % 71.6 % (50.0-68.0); HEMOGLOBIN 8.7 g/dL (14.0-18.0); LYMPH % 19.6 % (22.0-35.0); MEAN CELL VOLUME 82.2 fl (80.0-105.0); MEAN CORPUSCULAR HEMOGLOBIN 26.3 pg (25.0-35.0); MEAN PLATELET VOLUME 9.8 fl (7.0-11.0); MONO # 0.7 (0.1-0.6); MONO % 6.7 % (1.0-6.0); PLATELET COUNT 227 10^3/uL (120.0-450.0); RBC 3.31 10^6/uL (3.5-6.1); RED CELL DISTRIBUTION WIDTH 15.1 % (11.5-14.5); WHITE BLOOD COUNT 10.2 10^3/ul (4.5-11.0)
--- NOTE | 2017-04-10 16:06 | CON ---
CARDIOLOGY CONSULTATION DATE: 04/10/2017 HISTORY OF PRESENT ILLNESS: The patient is a 56-year-old male who presents with nausea and vomiting. The patient's past medical history is filled with past medical history of noncompliance which is admitted by the patient on questioning He does not take his medications. He does go to dialysis because of end-stage renal disease. In addition, he suffers from hypertension, hypercholesterolemia and diabetes mellitus. The patient is status post coronary bypass surgery 5 years ago at [facility]. He has had previous PTCA in the past. He denies chest pain, denies shortness of breath. His nausea and vomiting and better. SOCIAL HISTORY: Does admit to occasional smoking. REVIEW OF SYSTEMS: Free of cardiac symptoms. PHYSICAL EXAMINATION: VITAL SIGNS: Blood pressure is 133/68, the heart rate is in the 90s. NECK: Negative JVD. LUNGS: Decreased breath sounds bilaterally. HEART: Reveals S1, S2. EXTREMITIES: Without edema. LABORATORY DATA: Includes an EKG that shows an inferior wall [place] of indeterminate duration with an old anterior wall in the past. Glucose is 201. The troponin is 0.10 which is not different from his previous. Hemoglobin is 9.2. IMPRESSION: 1. Nausea and vomiting. 2. Status post coronary bypass surgery. 3. Coronary artery disease. 4. Old anterior an old inferior wall myocardial infarction. 5. Anemia. 6. End-stage renal disease. 7. Diabetes mellitus. 8. Hypercholesterolemia. 9. Hypertension. 10. Recurrent noncompliance with medical advice and medications. PLAN: We will review his echocardiogram which was done at the end of February. I have discussed with the patient about his need to take medications and follow up with his primary care doctors. Yousif Fisher MD
--- NOTE | 2017-04-10 23:10 | PN ---
DATE: 04/10/2017 SUBJECTIVE: The patient is lying in bed comfortable. He is more lucid, awake and alert. He denies any further vomiting or abdominal pain. He is requesting food. OBJECTIVE: VITAL SIGNS: Reveal temperature of 97, blood pressure 132/81, heart rate of 89. GENERAL: The patient is again awake and alert. ABDOMEN: Soft, nontender. LABORATORY DATA: Reveal hemoglobin of 8.7, BUN 29, creatinine 7.4. IMPRESSION: A 56-year-old male with end-stage renal disease, on hemodialysis, known coronary artery disease with a history of coronary artery bypass grafting, admitted to the hospital with syncope, altered mental status, developed several episodes of hematemesis in the hospital associated with nausea and vomiting. The patient probably developed a small mucosal tear secondary to vomiting. His vomiting has improved with proton pump inhibitor and Reglan. He is currently requesting food. The patient did have a drop in his hemoglobin from 11.4 to 8.7. I believe that this is partly delusional. Clinically, he does not have any active gastrointestinal bleeding at this time. He denies any melena or bowel movements. RECOMMENDATIONS: 1. We will advance the patient's diet. 2. Etiology of the change in mental status is not clear, but he did have drug screen positive for cannabis. 3. Continue PPI and Reglan. 4. There are no plans for endoscopy at this time as the patient has not had any further vomiting or hematemesis, clinically is not bleeding at this time. Eddie Curry MD
[2017-04-11] MEDS: Pantoprazole 40mg/100ml IVPB 40 MG/100 ML BAG IVPB SCH ×2 (01:50→06:51)
[2017-04-11] MEDS: Metoclopramide 5 mg/5 ml Oral Sol PO SCH ×2 (05:16→21:32)
[2017-04-11] MEDS: Insulin Lispro (humaLOG) MEDIUM Coverage SC SCH ×4 (08:19→21:33)
[2017-04-11] MEDS: Insulin Detemir 100 units/ml Vial (Levemir) SC SCH ×2 (10:05→21:33)
[2017-04-11] MEDS: Multivitamin Vitamin B Complex (Nephro-Vite) Tab PO SCH (10:06)
--- NOTE | 2017-04-11 10:08 | US ---
PROCEDURE: Bilateral renal artery duplex ultrasound. CLINICAL HISTORY: Renal artery stenosis. Uncontrolled hypertension. Evaluate for renovascular hypertension. PHYSICIAN(S): Yousif Cortés M.D. TECHNIQUE: Duplex sonography with color-flow Doppler was used to evaluate the visualized segments of the main renal arteries. The patient was evaluated in a fasting state. Imaging in a supine and decubitus position was performed. Limited evaluation of the arcuate waveforms and resistive indices were performed. FINDINGS: The main renal artery is only visualized in segments. The kidneys are normal in size, shape, and location. However, renal parenchyma is somewhat echogenic. The right kidney measures 10.3cm in length and the left kidney measures 10.3cm in length. No solid renal masses, abnormal calcifications, or hydronephrosis is seen. The main right renal artery is only visualized in segments.. The waveforms demonstrate high resistance pattern The peak systolic velocity in the right main renal artery is 43 cm/sec. This is consistent with a 0 to 49% stenosis in the main right renal artery. The arcuate waveforms demonstrate a high resistance pattern. The main left renal artery is also only visualized in segments. Once again, a high resistance waveform seen. The peak systolic velocity in the main left renal artery is 3cm/sec. This corresponds to a 0 to 49% stenosis in the main left renal artery. The arcuate waveforms demonstrate a high resistance pattern IMPRESSION: 1. The main renal arteries are not well visualized and only seen in segments. 2. No sonographically significant stenosis is identified. 3. The kidneys are normal and symmetric in size. There are no solid renal masses, abnormal calcifications or hydronephrosis noted. Renal parenchyma is somewhat echogenic and there is a high resistance waveform noted in the main renal arteries and arcuate vessels.
[2017-04-11 10:57] LABS: BASO # 0.08 K/mm3 (0.0-2.0); BASO % 1.1 % (0.0-3.0); EOS # 0.2 (0.0-0.7); GRAN % 63.4 % (50.0-68.0); HEMOGLOBIN 9.6 g/dL (14.0-18.0); LYMPH # 1.9 (1.2-3.4); LYMPH % 25.5 % (22.0-35.0); MEAN CELL VOLUME 82.8 fl (80.0-105.0); MEAN CORPUSCULAR HEMOGLOBIN 26.2 pg (25.0-35.0); MEAN CORPUSCULAR HGB CONC 31.6 g/dl (31.0-37.0); MEAN PLATELET VOLUME 10.6 fl (7.0-11.0); MONO # 0.5 (0.1-0.6); PLATELET COUNT 224 10^3/uL (120.0-450.0); RBC 3.67 10^6/uL (3.5-6.1); RED CELL DISTRIBUTION WIDTH 14.9 % (11.5-14.5); WHITE BLOOD COUNT 7.3 10^3/ul (4.5-11.0)
[2017-04-11 11:02] LABS: ALB/GLOB RATIO 1.3 (1.1-1.8); MAGNESIUM 1.8 mg/dL (1.7-2.2)
[2017-04-11 11:28] LABS: BASO # 0.07 K/mm3 (0.0-2.0); BASO % 1.1 % (0.0-3.0); EOS # 0.2 (0.0-0.7); EOS % 2.3 % (1.5-5.0); GRAN # 4.34 (1.4-6.5); GRAN % 66.9 % (50.0-68.0); HEMOGLOBIN 8.9 g/dL (14.0-18.0); LYMPH # 1.6 (1.2-3.4); MEAN CELL VOLUME 81.6 fl (80.0-105.0); MEAN CORPUSCULAR HEMOGLOBIN 26.9 pg (25.0-35.0); MEAN PLATELET VOLUME 10.5 fl (7.0-11.0); MONO # 0.4 (0.1-0.6); MONO % 5.7 % (1.0-6.0); PLATELET COUNT 234 10^3/uL (120.0-450.0); RBC 3.31 10^6/uL (3.5-6.1); RED CELL DISTRIBUTION WIDTH 14.8 % (11.5-14.5); WHITE BLOOD COUNT 6.5 10^3/ul (4.5-11.0)
--- NOTE | 2017-04-11 11:30 | PCM.EEG ---
Electroencephalogram Report - Electroencephalogram Report Procedure Date: 04/09/17 Interpretation: Indication: Rule out seizures. Condition: Awake, drowsy and light sleep. Technical: The international 10-20 electrode placement system is used for scalp electrode placement. Eighteen channels of scalp EEG are recorded Another channel was used for for ECG. Background: 9 to 10 hertz alpha activity was seen. Maximal over the posterior head region. These activities are symmetric on both sides. They attenuated with eye opening. Description: No focal slowing was seen. No seizure like activity was observed during this recording. Patient entered into periods of drowsiness and light sleep. Impression: Impression: Normal EEG. No focal slowing no seizure like activity was observed. Correlation with clinical findings is needed.
[2017-04-11 11:38] LABS: ALB/GLOB RATIO 1.3 (1.1-1.8); CALCIUM 7.9 mg/dL (8.4-10.5); MAGNESIUM 1.8 mg/dL (1.7-2.2)
[2017-04-11] MEDS ORDERED: Doxercalciferol 4 mcg/2 ml Inj IVP ONE (11:48)
[2017-04-11] MEDS ORDERED: Iron Sucrose 100 mg/5 ml Inj IVP ONE (11:48)
--- NOTE | 2017-04-11 13:29 | CP.PCM.PN ---
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 syncope, fall at home ? cause esophagitis Plan: Will plan for dialysis today. Continue with Nephrovite 1 tab/day. continue with weekly Vit D PRBC as needed for anemia. On BEREKET as Aransep 40 mcg weekly, last Hb 8.9. TSAT 11 % Ferritin 511. he also gets IV iron 100 mg with HD Continue with hectorol 1 mcg with dialysis. Last PTH level 463. BP control with meds as ordered. Patient on RAAS anjelica as Losartan. will check sec HTN work up with renin/carlo, metanephrine and renal artery doppler ( NEG). hsi BP labile can range from SBP 100-200. lower dose of clonidine to 0.1 mg TID Glycemic control, Dialysis consistent diet Further work up/management as per primary team Dose meds/antibiotics (if needed) for ESRD status. Avoid fleets enema/magnesium based laxatives. Pt was advised to abstain from marijuana, as it could contribute to most of GI/ neuro symptoms. Thanks for allowing me to participate in care of your patient. Will follow patient with you. Please call if any Qs Dr Sancho Garrett Office: [phone] Subjective: Noted events overnight. Patients feels better. no further nausea/ vomitting. Denies chest pain, palpitation, shortness of breath, leg swelling. No urinary complaints. so far his work up has been neg for cause of his syncope/ fall. 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 Vitals reviewed and noted as below Lungs: Normal respiratory rate/effort. Breath sounds bilateral equal and clear Heart: Normal rate. s1s2 normal. No rub or gallop. Extremities: no edema. s/p forefoot amputation Neurological: Patient is alert, awake and oriented to person, place and time. No focal deficit. Strength bilateral appropriate and equal Skin: Warm and dry. Normal turgor. No rash. Palpitation: Normal elasticity for age Abdomen: Abdomen is soft. Bowel sounds +. There is no abdominal tenderness, no guarding/rigidity or organomegaly : kidney or bladder not palpable Access: Rt IJ permacath Labs/imaging reviewed. Past medical history, past surgical history, family history, social history, allergy reviewed Objective - Vital Signs/Intake and Output Vital Signs (last 24 hours): Temp Pulse Resp BP Pulse Ox 97.8 F 50 L 18 133/72 94 L 04/11/17 05:30 04/11/17 10:00 04/11/17 05:30 04/11/17 05:30 04/11/17 05:30 Intake and Output: 04/11/17 04/11/17 06:59 18:59 Intake Total 260 Output Total 0 Balance 260 - Medications Medications: Current Medications Amlodipine Besylate (Norvasc) 10 mg PO DAILY [facility] Last Admin: 04/10/17 09:00 Dose: 10 mg Aspirin (Aspirin Chewable) 81 mg PO DAILY [facility] Last Admin: 04/11/17 10:05 Dose: 81 mg Atorvastatin Calcium (Lipitor) 40 mg PO HS [facility] Last Admin: 04/10/17 21:27 Dose: 40 mg Clonidine HCl (Catapres) 0.1 mg PO Q8 [facility] Clopidogrel Bisulfate (Plavix) 75 mg PO DAILY [facility] Last Admin: 04/09/17 12:09 Dose: 75 mg Cyanocobalamin (Vitamin B12 1000 Mcg Tab) 1,000 mcg PO DAILY [facility] Last Admin: 04/11/17 10:07 Dose: 1,000 mcg Diphenhydramine HCl (Benadryl) 50 mg PO HS PRN PRN Reason: Insomnia Last Admin: 04/10/17 23:08 Dose: 50 mg Ergocalciferol (Drisdol 50,000 Intl Units Cap) 1 cap PO Q7D [facility] Last Admin: 04/10/17 15:27 Dose: 1 cap Hydralazine HCl (Apresoline) 50 mg PO Q8 [facility] Last Admin: 04/11/17 05:16 Dose: Not Given Hydralazine HCl (Apresoline) 10 mg IVP Q6 PRN PRN Reason: Systolic Blood Pressure Last Admin: 04/09/17 12:07 Dose: 10 mg Pantoprazole Sodium (Protonix 40mg Ivpb) 40 mg in 100 mls @ 20 mls/hr IVPB .Q5H [facility] Last Admin: 04/11/17 06:51 Dose: 20 mls/hr Insulin Detemir (Levemir) 15 unit SC Q12 [facility] Last Admin: 04/11/17 10:05 Dose: 15 unit Insulin Human Lispro (Humalog Med) 0 units SC ACHS [facility] PRN Reason: Protocol Last Admin: 04/11/17 08:19 Dose: Not Given Losartan Potassium (Cozaar) 100 mg PO DAILY [facility] Last Admin: 04/10/17 09:02 Dose: 100 mg Metoclopramide HCl (Reglan) 5 mg PO 0600,2200 [facility] Last Admin: 04/11/17 05:16 Dose: 5 mg Ondansetron HCl (Zofran Inj) 4 mg IVP Q6 PRN PRN Reason: Nausea/Vomiting Last Admin: 04/09/17 14:55 Dose: 4 mg Pantoprazole Sodium (Protonix Inj) 40 mg IVP BID [facility] Last Admin: 04/11/17 10:06 Dose: Not Given Vitamin B Complex/Vit C/Folic Acid (Nephro-Eleni) 1 tab PO 0800 [facility] Last Admin: 04/11/17 10:06 Dose: 1 tab - Labs Labs: 04/11/17 11:20 04/11/17 11:20
--- NOTE | 2017-04-11 15:18 | PN ---
DATE: 04/11/2017 SUBJECTIVE: The patient is seen in dialysis. He denies any further nausea, vomiting, hematemesis or abdominal pain. He had a bowel movement this morning without any evidence of melena or rectal bleeding. PHYSICAL EXAMINATION VITAL SIGNS: Reveal temperature of 97.8, blood pressure 133/72, heart rate of 50. ABDOMEN: Soft, nontender. LABORATORY DATA: Reveal hemoglobin of 8.9 which is stable. BUN 33, creatinine 8.1, potassium 3.2. IMPRESSION: This is a 56-year-old male admitted to the hospital with syncope, altered mental status, history of end-stage renal disease on hemodialysis, chronic anemia with transient hematemesis without any further evidence of active bleeding. He is stable from a GI point of view. RECOMMENDATIONS: Patient is to follow up with his primary care doctor. To be set up as an outpatient for elective endoscopy and colonoscopy. Eddie Curry MD
--- NOTE | 2017-04-11 16:24 | PN ---
CARDIOLOGY FOLLOWUP DATE: 04/11/2017 SUBJECTIVE: The patient is without chest pain. PHYSICAL EXAMINATION: VITAL SIGNS: Blood pressure 133/72, heart rate in the 50s. NECK: Negative JVD. LUNGS: Without rales. HEART: S1, S2. EXTREMITIES: Without edema. LABORATORY DATA: Hemoglobin is 8.9. Chemistries: Troponins vary from 0.05-0.10, glucose is 246. IMPRESSION 1. Improvement of nausea and vomiting. 2. End-stage renal disease. 3. History of coronary artery bypass surgery. 4. Old anterior wall myocardial infarction. 5. Diabetes mellitus. 6. Hypercholesterolemia. 7. Recurrent noncompliance with medical advice and medications. PLAN: Given these findings, when the patient is stable, we will sit down with him again and discuss his need for compliance. We will arrange for an outpatient stress test next week. Yousif Fisher MD
--- NOTE | 2017-04-11 16:31 | CP.PCM.PN ---
<Nancy Clemens - Last Filed: 04/11/17 16:39> Subjective - Date & Time of Evaluation Date of Evaluation: 04/11/17 Time of Evaluation: 07:45 - Subjective Subjective: Nancy Clemens DO, PGY-1, Internal Medicine, Hospitalist Service Patient seen and examined at bedside. Per nursing no acute events overnight. Patient is tolerating diet. Denies nausea, vomiting, fevers, chills, headaches, dizziness, cp, sob, abdominal pain, urinary symptoms. Patient due for HD today. Objective - Vital Signs/Intake and Output Vital Signs (last 24 hours): Temp Pulse Resp BP Pulse Ox 97.8 F 50 L 18 133/72 94 L 04/11/17 05:30 04/11/17 10:00 04/11/17 05:30 04/11/17 05:30 04/11/17 05:30 Intake and Output: 04/11/17 04/11/17 06:59 18:59 Intake Total 260 360 Output Total 0 300 Balance 260 60 - Medications Medications: Current Medications Amlodipine Besylate (Norvasc) 10 mg PO DAILY [facility] Last Admin: 04/10/17 09:00 Dose: 10 mg Aspirin (Aspirin Chewable) 81 mg PO DAILY [facility] Last Admin: 04/11/17 10:05 Dose: 81 mg Atorvastatin Calcium (Lipitor) 40 mg PO HS [facility] Last Admin: 04/10/17 21:27 Dose: 40 mg Clonidine HCl (Catapres) 0.1 mg PO Q8 [facility] Last Admin: 04/11/17 14:06 Dose: Not Given Clopidogrel Bisulfate (Plavix) 75 mg PO DAILY [facility] Last Admin: 04/09/17 12:09 Dose: 75 mg Cyanocobalamin (Vitamin B12 1000 Mcg Tab) 1,000 mcg PO DAILY [facility] Last Admin: 04/11/17 10:07 Dose: 1,000 mcg Diphenhydramine HCl (Benadryl) 50 mg PO HS PRN PRN Reason: Insomnia Last Admin: 04/10/17 23:08 Dose: 50 mg Ergocalciferol (Drisdol 50,000 Intl Units Cap) 1 cap PO Q7D [facility] Last Admin: 04/10/17 15:27 Dose: 1 cap Hydralazine HCl (Apresoline) 50 mg PO Q8 [facility] Last Admin: 04/11/17 14:06 Dose: Not Given Hydralazine HCl (Apresoline) 10 mg IVP Q6 PRN PRN Reason: Systolic Blood Pressure Last Admin: 04/09/17 12:07 Dose: 10 mg Insulin Detemir (Levemir) 15 unit SC Q12 [facility] Last Admin: 04/11/17 10:05 Dose: 15 unit Insulin Human Lispro (Humalog Med) 0 units SC ACHS [facility] PRN Reason: Protocol Last Admin: 04/11/17 11:30 Dose: Not Given Losartan Potassium (Cozaar) 100 mg PO DAILY [facility] Last Admin: 04/10/17 09:02 Dose: 100 mg Metoclopramide HCl (Reglan) 5 mg PO 0600,2200 [facility] Last Admin: 04/11/17 05:16 Dose: 5 mg Ondansetron HCl (Zofran Inj) 4 mg IVP Q6 PRN PRN Reason: Nausea/Vomiting Last Admin: 04/09/17 14:55 Dose: 4 mg Pantoprazole Sodium (Protonix Ec Tab) 40 mg PO 0600 [facility] Vitamin B Complex/Vit C/Folic Acid (Nephro-Eleni) 1 tab PO 0800 [facility] Last Admin: 04/11/17 10:06 Dose: 1 tab - Labs Labs: 04/11/17 11:20 04/11/17 11:20 - Constitutional Appears: Well, No Acute Distress - Head Exam Head Exam: ATRAUMATIC, NORMAL INSPECTION - Eye Exam Eye Exam: EOMI, Normal appearance Pupil Exam: NORMAL ACCOMODATION - ENT Exam ENT Exam: Mucous Membranes Moist - Neck Exam Neck Exam: Full ROM - Respiratory Exam Respiratory Exam: Clear to Ausculation Bilateral, NORMAL BREATHING PATTERN. absent: Rales, Rhonchi, Wheezes - Cardiovascular Exam Cardiovascular Exam: REGULAR RHYTHM, +S1, +S2 Additional comments: + Permacath - GI/Abdominal Exam GI & Abdominal Exam: Soft, Normal Bowel Sounds. absent: Guarding, Rigid, Tenderness, Rebound - Extremities Exam Extremities Exam: Full ROM. absent: Calf Tenderness, Normal Inspection Additional comments: + R transmetatarsal amputation - Back Exam Back Exam: NORMAL INSPECTION - Neurological Exam Neurological Exam: Alert, Awake, Oriented x3 - Psychiatric Exam Psychiatric exam: Normal Affect, Normal Mood - Skin Skin Exam: Dry, Normal Color, Warm Assessment and Plan - Assessment and Plan (Free Text) Assessment: 56 year old male with a past medical history significant for hypertension, DM II , CAD s/p CABG (4.5 years ago), ESRD (just started on hemodialysis week 2) who presented to [facility] via EMS for loss of consciousness. He states that after taking his insulin at bedtime he passed out and the next thing he remembers was waking up on the floor with stool in his pants. His roomate called 911 and Mr. Lay was brought to [facility]. He admits to having some abdominal since his discharge last week. He admits to vomiting, nausea, and abdominal pain on admission. Plan: 1) AMS possibly secondary to seizure vs stroke vs marijuana use - Admitted to telemetry - AAO x3 today - CT head negative, MRI brain no acute findings - EEG negative - Neurology consulted, f/u recommendations - Urine drug screen positive for cannibinoids - Neurochecks q4h, seizure, aspiration and fall precautions 2) Coffee ground emesis, r/o GI bleed - Nausea and vomiting possibly 2/2 marijuana withdrawal - Hgb 8.7 will f/u am CBC - Reglan prn nausea - IV protonix drip - CT abd/pelvis: no acute findings - Patient reports that he is feeling better, tolerating regular diet - GI consulted, f/u recommendations - No plan for endoscopy at this point - F/U Stool occult 3) Sepsis possibly 2/2 line infection - R chest permacath placed on previous admission - Leukocytosis resolved, afebrile, lactate wnl - s/p Vancomycin x 1 dose, Zosyn x 2 doses - Blood cx no growth - Urine cx no growth 4) Hypertension - Norvasc 10mg daily - Decrease Clonidine 0.1mg TID - Hydralazine 50mg Q8H, Hydralazine prn - Cozaar 100mg PO daily - Continue BP monitoring - Secondary HTN workup in progress - Renal artery duplex negative 5) CAD s/p CABG - Continue ASA, Lipitor 40mg daily - Will hold plavix at this time as there is a concern for GI bleed 6) Diabetes Mellitus - Levemir 15 U restarted - Medium dose ISS - Accuchecks ACHS 7) ESRD on HD TThS - Due to HD today - Nephrology, Dr. Garrett following 8) [place] elevated troponins - EKG stable compared to prior - Troponins trending down - Mild elevation in troponins likely due to demand ischemia in setting of ESRD - Cardiology consulted f/u recommendations 9) Hypokalemia - Continue to monitor 10) GI/DVT ppx -Protonix 40mg IV BID -AC held at this time <Marty Muir - Last Filed: 04/11/17 21:15> Objective - Vital Signs/Intake and Output Vital Signs (last 24 hours): Temp Pulse Resp BP Pulse Ox 97.8 F 59 L 18 133/72 94 L 04/11/17 05:30 04/11/17 14:00 04/11/17 05:30 04/11/17 05:30 04/11/17 05:30 Intake and Output: 04/11/17 04/11/17 06:59 18:59 Intake Total 260 360 Output Total 0 300 Balance 260 60 - Medications Medications: Current Medications Amlodipine Besylate (Norvasc) 10 mg PO DAILY [facility] Last Admin: 04/10/17 09:00 Dose: 10 mg Aspirin (Aspirin Chewable) 81 mg PO DAILY [facility] Last Admin: 04/11/17 10:05 Dose: 81 mg Atorvastatin Calcium (Lipitor) 40 mg PO HS [facility] Last Admin: 04/10/17 21:27 Dose: 40 mg Clonidine HCl (Catapres) 0.1 mg PO Q8 [facility] Last Admin: 04/11/17 14:06 Dose: Not Given Clopidogrel Bisulfate (Plavix) 75 mg PO DAILY [facility] Last Admin: 04/09/17 12:09 Dose: 75 mg Cyanocobalamin (Vitamin B12 1000 Mcg Tab) 1,000 mcg PO DAILY [facility] Last Admin: 04/11/17 10:07 Dose: 1,000 mcg Diphenhydramine HCl (Benadryl) 50 mg PO HS PRN PRN Reason: Insomnia Last Admin: 04/10/17 23:08 Dose: 50 mg Ergocalciferol (Drisdol 50,000 Intl Units Cap) 1 cap PO Q7D [facility] Last Admin: 04/10/17 15:27 Dose: 1 cap Hydralazine HCl (Apresoline) 50 mg PO Q8 [facility] Last Admin: 04/11/17 14:06 Dose: Not Given Hydralazine HCl (Apresoline) 10 mg IVP Q6 PRN PRN Reason: Systolic Blood Pressure Last Admin: 04/09/17 12:07 Dose: 10 mg Insulin Detemir (Levemir) 15 unit SC Q12 [facility] Last Admin: 04/11/17 10:05 Dose: 15 unit Insulin Human Lispro (Humalog Med) 0 units SC ACHS [facility] PRN Reason: Protocol Last Admin: 04/11/17 11:30 Dose: Not Given Losartan Potassium (Cozaar) 100 mg PO DAILY [facility] Last Admin: 04/10/17 09:02 Dose: 100 mg Metoclopramide HCl (Reglan) 5 mg PO 0600,2200 [facility] Last Admin: 04/11/17 05:16 Dose: 5 mg Ondansetron HCl (Zofran Inj) 4 mg IVP Q6 PRN PRN Reason: Nausea/Vomiting Last Admin: 04/09/17 14:55 Dose: 4 mg Pantoprazole Sodium (Protonix Ec Tab) 40 mg PO 0600 [facility] Vitamin B Complex/Vit C/Folic Acid (Nephro-Eleni) 1 tab PO 0800 [facility] Last Admin: 04/11/17 10:06 Dose: 1 tab - Labs Labs: 04/11/17 11:20 04/11/17 11:20 Attending/Attestation - Attestation I have personally seen and examined this patient.: Yes I have fully participated in the care of the patient.: Yes I have reviewed all pertinent clinical information, including history, physical exam and plan: Yes Notes (Text): I have seen and examined patient with medical records supervisor. Agree with the above note with the following additions/ exceptions: Briefly this is 56 year old male with a past medical history significant for hypertension, DM 2, CAD S/P CABG , ESRD was recently started on on hemodialysis, Marijuana abuse was admitted for syncope most likely secondary to illicit drug abuse. He was not hypoglycemic, gave history of incontinence of stool, there was no tongue bite and no focal deficit. MRI of Brain is normal. EEG not suggestive of seizure. Patients nausea and vomiting has resolved. He is alert and awake today. CT abdomen and Pelvis is negative. Hemoglobin has dropped 11.4 to 8.7. Patient had transient episode of hematemesis however no active bleeding was noted. We will continue PPI. GI recommended outpatient EGD and colonoscopy. Mild elevated troponin is likely due to demand ischemia in setting of ESRD. He had episodes of bradycardia today and medications were adjusted. Plan to dc in am if BP and HR improves. Management plan was discussed in detail with patient. Upon discharge patient will follow up with Dr Ward. Dr Marty Muir
[2017-04-12] MEDS ORDERED: Potassium Chloride 20 mEq ER Tab PO STA (04:58)
[2017-04-12] MEDS: Metoclopramide 5 mg/5 ml Oral Sol PO SCH (05:16)
[2017-04-12 05:40] VITALS: O2SAT 98
[2017-04-12] MEDS ORDERED: Pantoprazole 40 mg EC Tab PO SCH (06:00)
[2017-04-12 08:15] LABS: BASO # 0.05 K/mm3 (0.0-2.0); BASO % 0.8 % (0.0-3.0); EOS # 0.2 (0.0-0.7); EOS % 2.6 % (1.5-5.0); GRAN # 3.99 (1.4-6.5); GRAN % 60.6 % (50.0-68.0); HEMOGLOBIN 9.1 g/dL (14.0-18.0); LYMPH # 1.9 (1.2-3.4); LYMPH % 28.2 % (22.0-35.0); MEAN CELL VOLUME 82.3 fl (80.0-105.0); MEAN CORPUSCULAR HEMOGLOBIN 26.5 pg (25.0-35.0); MEAN CORPUSCULAR HGB CONC 32.2 g/dl (31.0-37.0); MEAN PLATELET VOLUME 10.2 fl (7.0-11.0); MONO # 0.5 (0.1-0.6); MONO % 7.8 % (1.0-6.0); PLATELET COUNT 231 10^3/uL (120.0-450.0); RBC 3.44 10^6/uL (3.5-6.1); RED CELL DISTRIBUTION WIDTH 14.6 % (11.5-14.5); WHITE BLOOD COUNT 6.6 10^3/ul (4.5-11.0)
[2017-04-12] MEDS: Multivitamin Vitamin B Complex (Nephro-Vite) Tab PO SCH (08:25)
[2017-04-12] MEDS: Insulin Lispro (humaLOG) MEDIUM Coverage SC SCH ×2 (08:25→12:21)
[2017-04-12 08:29] LABS: ALB/GLOB RATIO 1.2 (1.1-1.8); ALBUMIN 2.9 g/dL (3.0-4.8); CALCIUM 7.6 mg/dL (8.4-10.5); MAGNESIUM 1.8 mg/dL (1.7-2.2)
[2017-04-12] MEDS: Insulin Detemir 100 units/ml Vial (Levemir) SC SCH (09:26)
[2017-04-12 09:30] VITALS: BP 147/73
--- NOTE | 2017-04-12 12:06 | PN ---
DATE: 04/12/2017 SUBJECTIVE: The patient is without complaints. He is feeling well. His nausea and vomiting is resolved. PHYSICAL EXAMINATION: VITAL SIGNS: Blood pressure 147/73, heart rate in the 70s. NECK: Negative JVD. LUNGS: Without rales or S1, S2. EXTREMITIES: Without edema. LABORATORY DATA: Hemoglobin is 9.1. Chemistries: BUN and creatinine is 17 and 4.4. Glucose of 145. IMPRESSION 1. Depression. 1. Resolution of nausea and vomiting. 2. History of coronary bypass surgery. 3. Old anterior wall myocardial infarction. 4. Diabetes mellitus. 5. Hypercholesterolemia. 6. Recurrent noncompliance with medication, medical advice. PLAN: We discussed with the patient about his need to take his medications. He is agreeable. He understands and he is agreeable for an outpatient stress test this coming Monday. Yousif Fisher MD
--- NOTE | 2017-04-12 12:15 | CP.PCM.PN ---
Subjective - Date & Time of Evaluation Date of Evaluation: 04/12/17 Time of Evaluation: 12:12 - Subjective Subjective: Follow up Nephrology Consultation Note Assessment: Stable Diabetic chronic Kidney Disease (E11.22) with nephrotic syndrome Hypertensive Chronic Kidney Disease (I12.0) End stage renal disease (N18.6) dependence on hemodialysis (Z99.2) (TTS) via permacath Anemia (D64.9), Secondary Hyperparathyroidism (E21.1), HTN (I12.0) uncontrolled Hypokalemia, Vit D deficiency, active Marijuana abuse. syncope, fall at home ? cause (possibly due to THC) esophagitis Plan: Will plan for dialysis tomorrow. no acute need today. Continue with Nephrovite 1 tab/day. continue with weekly Vit D PRBC as needed for anemia. On BEREKET as Aransep 40 mcg weekly, last Hb 8.9. TSAT 11 % Ferritin 511. he also gets IV iron 100 mg with HD Continue with hectorol 1 mcg with dialysis. Last PTH level 463. BP control with meds as ordered. Patient on RAAS anjelica as Losartan. will check sec HTN work up with renin/carlo, metanephrine and renal artery doppler ( NEG). hsi BP labile can range from SBP 100-200. lower dose of clonidine to 0.1 mg TID due to bradycardia Glycemic control, Dialysis consistent diet Further work up/management as per primary team Dose meds/antibiotics (if needed) for ESRD status. Avoid fleets enema/magnesium based laxatives. Pt was advised to abstain from marijuana, as it could contribute to most of GI/ neuro symptoms. he is agreeable he will be planned for stress test, upper/GI lower endoscopy as outpatient. I advised patient to get these tests done as he will likely need them for kidney transplant listing also he will also need to f/up with vascular surgery to get AVF surgery done Thanks for allowing me to participate in care of your patient. Will follow patient with you. Please call if any Qs. he is stable for d/c from renal perspective Dr Sancho Garrett Office: [phone] Subjective: Noted events overnight. Patients feels better. no further nausea/ vomitting. Denies chest pain, palpitation, shortness of breath, leg swelling. No urinary complaints. so far his work up has been neg for cause of his syncope/ fall. 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 Vitals reviewed and noted as below Lungs: Normal respiratory rate/effort. Breath sounds bilateral equal and clear Heart: Normal rate. s1s2 normal. No rub or gallop. Extremities: no edema. s/p forefoot amputation Neurological: Patient is alert, awake and oriented to person, place and time. No focal deficit. Strength bilateral appropriate and equal Skin: Warm and dry. Normal turgor. No rash. Palpitation: Normal elasticity for age Abdomen: Abdomen is soft. Bowel sounds +. There is no abdominal tenderness, no guarding/rigidity or organomegaly : kidney or bladder not palpable Access: Rt IJ permacath Labs/imaging reviewed. Past medical history, past surgical history, family history, social history, allergy reviewed Objective - Vital Signs/Intake and Output Vital Signs (last 24 hours): Temp Pulse Resp BP Pulse Ox 97.9 F 70 20 147/73 98 04/12/17 05:40 04/12/17 07:01 04/12/17 05:40 04/12/17 09:27 04/12/17 05:40 Intake and Output: 04/12/17 04/12/17 06:59 18:59 Intake Total 420 Output Total 100 Balance 320 - Medications Medications: Current Medications Amlodipine Besylate (Norvasc) 10 mg PO DAILY [facility] Last Admin: 04/12/17 09:27 Dose: 10 mg Aspirin (Aspirin Chewable) 81 mg PO DAILY [facility] Last Admin: 04/12/17 09:25 Dose: 81 mg Atorvastatin Calcium (Lipitor) 40 mg PO HS [facility] Last Admin: 04/11/17 21:33 Dose: 40 mg Clonidine HCl (Catapres) 0.1 mg PO Q8 [facility] Last Admin: 04/12/17 05:29 Dose: 0.1 mg Clopidogrel Bisulfate (Plavix) 75 mg PO DAILY [facility] Last Admin: 04/09/17 12:09 Dose: 75 mg Cyanocobalamin (Vitamin B12 1000 Mcg Tab) 1,000 mcg PO DAILY [facility] Last Admin: 04/12/17 09:26 Dose: 1,000 mcg Diphenhydramine HCl (Benadryl) 50 mg PO HS PRN PRN Reason: Insomnia Last Admin: 04/10/17 23:08 Dose: 50 mg Ergocalciferol (Drisdol 50,000 Intl Units Cap) 1 cap PO Q7D [facility] Last Admin: 04/10/17 15:27 Dose: 1 cap Hydralazine HCl (Apresoline) 50 mg PO Q8 [facility] Last Admin: 04/12/17 05:29 Dose: 50 mg Hydralazine HCl (Apresoline) 10 mg IVP Q6 PRN PRN Reason: Systolic Blood Pressure Last Admin: 04/09/17 12:07 Dose: 10 mg Insulin Detemir (Levemir) 15 unit SC Q12 [facility] Last Admin: 04/12/17 09:26 Dose: 15 unit Insulin Human Lispro (Humalog Med) 0 units SC ACHS MARYANN PRN Reason: Protocol Last Admin: 04/12/17 08:25 Dose: 1 units Losartan Potassium (Cozaar) 100 mg PO DAILY [facility] Last Admin: 04/12/17 09:27 Dose: 100 mg Metoclopramide HCl (Reglan) 5 mg PO 0600,2200 [facility] Last Admin: 04/12/17 05:16 Dose: 5 mg Ondansetron HCl (Zofran Inj) 4 mg IVP Q6 PRN PRN Reason: Nausea/Vomiting Last Admin: 04/09/17 14:55 Dose: 4 mg Pantoprazole Sodium (Protonix Ec Tab) 40 mg PO 0600 [facility] Last Admin: 04/12/17 05:16 Dose: 40 mg Vitamin B Complex/Vit C/Folic Acid (Nephro-Eleni) 1 tab PO 0800 [facility] Last Admin: 04/12/17 08:25 Dose: 1 tab - Labs Labs: 04/12/17 07:30 04/12/17 07:30
[2017-04-12 12:35] VITALS: RESP 19; TEMP 98
--- NOTE | 2017-04-12 14:36 | CP.PCM.DIS ---
<Nancy Clemens - Last Filed: 04/12/17 16:12> Provider - Provider Date of Admission: 04/10/17 07:58 Attending physician: Marty Muir MD Primary care physician: Corona Ward MD Consults: Nephro: Tami GI: Patricio Cardiology: Phillip Time Spent in preparation of Discharge (in minutes): 31 Hospital Course - Lab Results Lab Results: Most Recent Lab Values WBC 6.6 10^3/ul (4.5-11.0) 04/12/17 07:30 RBC 3.44 10^6/uL (3.5-6.1) L 04/12/17 07:30 Hgb 9.1 g/dL (14.0-18.0) L 04/12/17 07:30 Hct 28.3 % (42.0-52.0) L 04/12/17 07:30 MCV 82.3 fl (80.0-105.0) 04/12/17 07:30 MCH 26.5 pg (25.0-35.0) 04/12/17 07:30 MCHC 32.2 g/dl (31.0-37.0) 04/12/17 07:30 RDW 14.6 % (11.5-14.5) H 04/12/17 07:30 Plt Count 231 10^3/uL (120.0-450.0) 04/12/17 07:30 MPV 10.2 fl (7.0-11.0) 04/12/17 07:30 Gran % 60.6 % (50.0-68.0) 04/12/17 07:30 Lymph % (Auto) 28.2 % (22.0-35.0) 04/12/17 07:30 Perkins % (Auto) 7.8 % (1.0-6.0) H 04/12/17 07:30 Eos % (Auto) 2.6 % (1.5-5.0) 04/12/17 07:30 Baso % (Auto) 0.8 % (0.0-3.0) 04/12/17 07:30 Gran # 3.99 (1.4-6.5) 04/12/17 07:30 Lymph # 1.9 (1.2-3.4) 04/12/17 07:30 Perkins # 0.5 (0.1-0.6) 04/12/17 07:30 Eos # 0.2 (0.0-0.7) 04/12/17 07:30 Baso # 0.05 K/mm3 (0.0-2.0) 04/12/17 07:30 Neutrophils % (Manual) 88 % (50.0-70.0) H 04/08/17 14:30 Lymphocytes % (Manual) 6 % (22.0-35.0) L 04/08/17 14:30 Monocytes % (Manual) 6 % (1.0-6.0) 04/08/17 14:30 Platelet Evaluation Normal (NORMAL) 04/08/17 14:30 pO2 33 mm/Hg (30-55) 04/08/17 14:30 VBG pH 7.48 (7.32-7.43) H 04/08/17 14:30 VBG pCO2 27.0 (40-60) L 04/08/17 14:30 VBG HCO3 20.1 mmol/l (21-28) L 04/08/17 14:30 VBG Total CO2 20.9 mmol.L (22-28) L 04/08/17 14:30 VBG O2 Sat (Calc) 72.0 % (40-65) H 04/08/17 14:30 VBG Base Excess -2.0 mmol/L (0.0-2.0) L 04/08/17 14:30 VBG Potassium 3.9 mmol/L (3.6-5.2) 04/08/17 14:30 Sodium 135.0 mmol/L (132-148) 04/08/17 14:30 Chloride 95.0 mmol/L (98-107) L 04/08/17 14:30 Glucose 142 mg/dl (75-110) H 04/08/17 14:30 Lactate 1.6 mmol/L (0.7-2.1) 04/08/17 14:30 FiO2 21.0 % 04/08/17 14:30 Sodium 135 mmol/L (132-148) 04/12/17 07:30 Potassium 4.1 mmol/L (3.6-5.0) 04/12/17 07:30 Chloride 99 mmol/L (98-107) 04/12/17 07:30 Carbon Dioxide 28 mmol/L (21-33) 04/12/17 07:30 Anion Gap 12 (10-20) 04/12/17 07:30 BUN 17 mg/dL (7-21) 04/12/17 07:30 Creatinine 4.4 mg/dL (0.5-1.4) H 04/12/17 07:30 Est GFR ( Amer) 17 04/12/17 07:30 Est GFR (Non-Af Amer) 14 04/12/17 07:30 POC Glucose (mg/dL) 317 mg/dL (65-110) H 04/11/17 21:14 Random Glucose 145 mg/dL (70-110) H 04/12/17 07:30 Lactic Acid 1.4 mmol/L (0.7-2.1) 04/09/17 16:00 Calcium 7.6 mg/dL (8.4-10.5) L 04/12/17 07:30 Phosphorus 3.0 mg/dL (2.5-4.5) 04/12/17 07:30 Magnesium 1.8 mg/dL (1.7-2.2) 04/12/17 07:30 Total Bilirubin 0.6 mg/dL (0.2-1.3) 04/12/17 07:30 AST 19 U/L (15-59) 04/12/17 07:30 ALT 21 U/L (7-56) 04/12/17 07:30 Alkaline Phosphatase 84 U/L (38-133) 04/12/17 07:30 Total Creatine Kinase 289 U/L (35-230) H 04/08/17 14:30 CK-MB (CK-2) 2.3 ng/mL (0.0-3.6) 04/08/17 14:30 CK-MB (CK-2) % Cancelled 04/08/17 14:30 Troponin I 0.05 ng/mL D 04/10/17 15:33 Total Protein 5.3 g/dL (5.8-8.3) L 04/12/17 07:30 Albumin 2.9 g/dL (3.0-4.8) L 04/12/17 07:30 Globulin 2.4 gm/dL 04/12/17 07:30 Albumin/Globulin Ratio 1.2 (1.1-1.8) 04/12/17 07:30 Lipase 41 U/L (23-300) 04/08/17 14:30 TSH 3rd Generation 1.12 mIU/mL (0.46-4.68) 04/08/17 14:30 Plasma Metanephrine TNP 04/11/17 07:30 Plasma Normetanephrine TNP 04/11/17 07:30 Plas Total Metaneph TNP 04/11/17 07:30 Venous Blood Potassium 3.9 mmol/L (3.6-5.2) 04/08/17 14:30 Urine Color yellow (YELLOW) 04/09/17 12:40 Urine Appearance Slight-cloudy (CLEAR) 04/09/17 12:40 Urine pH 7.5 (4.7-8.0) 04/09/17 12:40 Ur Specific [place] 1.020 (1.005-1.035) 04/09/17 12:40 Urine Protein >=300 mg/dL (<30 mg/dL) H 04/09/17 12:40 Urine Glucose (UA) 250 mg/dL (NEGATIVE) H 04/09/17 12:40 Urine Ketones 40 mg/dL (NEGATIVE) H 04/09/17 12:40 Urine Blood Small (NEGATIVE) H 04/09/17 12:40 Urine Nitrate Negative (NEGATIVE) 04/09/17 12:40 Urine Bilirubin Small (NEGATIVE) H 04/09/17 12:40 Urine Urobilinogen 0.2 E.U./dL (<1 E.U./dL) 04/09/17 12:40 Ur Leukocyte Esterase Negative Zarina/uL (NEGATIVE) 04/09/17 12:40 Urine RBC 20 - 25 /hpf (0-2) 04/09/17 12:40 Urine WBC 5 - 10 /hpf (0-6) 04/09/17 12:40 Ur Epithelial Cells 4 - 5 /hpf (0-5) 04/09/17 12:40 Amorphous Sediment Small 04/09/17 12:40 Urine Opiates Screen Negative (NEGATIVE) 04/09/17 12:40 Urine Methadone Screen Negative (NEGATIVE) 04/09/17 12:40 Ur Barbiturates Screen Negative (NEGATIVE) 04/09/17 12:40 Ur Phencyclidine Scrn Negative (NEGATIVE) 04/09/17 12:40 Ur Amphetamines Screen Negative (NEGATIVE) 04/09/17 12:40 U Benzodiazepines Scrn Negative (NEGATIVE) 04/09/17 12:40 U Oth Cocaine Metabols Negative (NEGATIVE) 04/09/17 12:40 U Cannabinoids Screen Positive (NEGATIVE) H 04/09/17 12:40 Alcohol, Quantitative < 10 mg/dL (0-10) 04/08/17 14:30 - Hospital Course Hospital Course: 56 year old male with a past medical history significant for hypertension, DM II , CAD s/p CABG (4.5 years ago), ESRD (just started on hemodialysis week 2) who presented to [facility] via EMS for loss of consciousness. He states that after taking his insulin at bedtime he passed out and the next thing he remembers was waking up on the floor with stool in his pants. His roommate called 911 and Mr. Lay was brought to [facility]. He admits to having some abdominal since his discharge last week. He admits to vomiting, nausea, and abdominal pain on admission. Patient was admitted for AMS. UDS was positive for marijuana. Neurology was consulted and on the case. CT head was negative and MRI showed no acute findings. EEG was also performed which showed no evidence of seizure. Patient was cognitively and neurologically intact. During admission, patient was having nausea and intractable coffee ground emesis. During this episode, patient was also experiencing chills. Patient was given a dose of vancomycin and zosyn as there was a concern for possible sepsis. Patient was made NPO, started on gentle hydration. GI was consulted and on the case. Patient was started on IV protonix drip and given reglan for nausea. Hgb/Hct was trended. CT abd/pelvis showed no acute findings. Blood cx showed no growth, urine cx showed no growth. Lactate was wnl. Hgb stablized and patient symptoms significantly improved. Diet was advances as tolerated. Per GI , patient will need to follow up outpatient for colonoscopy and endoscopy. Troponins were borderline elevated. EKG showed old anterior wall WI. Cardiology was consulted and on the case. Subsequent troponins started to trend downwards. Per cardiology, patient is to follow up for outpatient stress test. Electrolytes were monitored and repleated as needed. For hypertension, patient was started on home medications. Patient started having episodes of bradycardia. Clonidine dose was decreased to 0.1mg TID. During admission, patient went for Hemodialysis as scheduled. Nephrology was consulted and on the case. Nephro was working patient up for secondary HTN. Renal artery duplex was negative. Work up still in progress. Patient was seen and evaluated by PT. Patient was clear for discharge home. Patient counseled extensively on marijuana cessation and importance of medication compliance. Medications were reconciled, All questions and concerns were addressed. Discharge Exam - Head Exam Head Exam: ATRAUMATIC, NORMAL INSPECTION - Eye Exam Eye Exam: EOMI, Normal appearance Pupil Exam: NORMAL ACCOMODATION - ENT Exam ENT Exam: Mucous Membranes Moist - Neck Exam Neck exam: Full Rom - Respiratory Exam Respiratory Exam: Clear to PA & Lateral, NORMAL BREATHING PATTERN, UNREMARKABLE. absent: Rales, Rhonchi, Wheezes - Cardiovascular Exam Cardiovascular Exam: REGULAR RHYTHM, +S1, +S2 Additional comments: +Permacath - GI/Abdominal Exam GI & Abdominal Exam: Normal Bowel Sounds, Soft. absent: Guarding, Rebound, Rigid, Tenderness - Extremities Exam Extremities exam: pedal pulses present Additional comments: R transmetatarsal amputation - Back Exam Back exam: NORMAL INSPECTION - Neurological Exam Neurological exam: Alert, Normal Gait, Oriented x3 - Psychiatric Exam Psychiatric exam: Normal Affect, Normal Mood - Skin Skin Exam: Normal Color, Warm Discharge Plan - Discharge Medications Prescriptions: cloNIDine [Catapres] 0.1 mg PO TID #90 tab Vitamin B Complex/Vit C/Folic [Nephro-Eleni] 1 tab PO 0800 #30 tab - Follow Up Plan Condition: FAIR Disposition: HOME/ ROUTINE Instructions: Coronary Artery Disease (GEN), Cardiac Stress Test (GEN), Hemodialysis (GEN), Dialysis Diet (GEN), Heart Healthy Diet (GEN), Syncope (DC) , Cholesterol and Your Health (GEN), Meal Planning with Diabetes Exchanges (GEN) , Hypertension (GEN) Additional Instructions: Patient is clear for discharge home. Patient for follow up with GI as outpatient for colonoscopy/EGD, within 1-2 weeks. Please follow up with Cardiology for outpatient stress test; outpatient stress test is scheduled for 04/21/[address] Fisher. Patient also to follow up with PMD within 1 week. Please follow up with your scheduled dialysis treatments; Monday, and Monday. Take medications as prescribed. If condition occurs again, go to the nearest emergency room. Please use your personal walker for ambulating, to reduce the risks of falls. Diet: Renal diet, heart healthy, low cholesterol and diabetic exchange diet Patient states he refuses flu vaccine, always, and refuses the pneumococcal vaccine as of this writing. Referrals: Corona Ward MD [Primary Care Provider] - <Marty Muir - Last Filed: 04/12/17 16:50> Provider - Provider Date of Admission: 04/10/17 07:58 Attending physician: Marty Muir MD Primary care physician: Corona Ward MD Time Spent in preparation of Discharge (in minutes): 35 Hospital Course - Lab Results Lab Results: Most Recent Lab Values WBC 6.6 10^3/ul (4.5-11.0) 04/12/17 07:30 RBC 3.44 10^6/uL (3.5-6.1) L 04/12/17 07:30 Hgb 9.1 g/dL (14.0-18.0) L 04/12/17 07:30 Hct 28.3 % (42.0-52.0) L 04/12/17 07:30 MCV 82.3 fl (80.0-105.0) 04/12/17 07:30 MCH 26.5 pg (25.0-35.0) 04/12/17 07:30 MCHC 32.2 g/dl (31.0-37.0) 04/12/17 07:30 RDW 14.6 % (11.5-14.5) H 04/12/17 07:30 Plt Count 231 10^3/uL (120.0-450.0) 04/12/17 07:30 MPV 10.2 fl (7.0-11.0) 04/12/17 07:30 Gran % 60.6 % (50.0-68.0) 04/12/17 07:30 Lymph % (Auto) 28.2 % (22.0-35.0) 04/12/17 07:30 Perkins % (Auto) 7.8 % (1.0-6.0) H 04/12/17 07:30 Eos % (Auto) 2.6 % (1.5-5.0) 04/12/17 07:30 Baso % (Auto) 0.8 % (0.0-3.0) 04/12/17 07:30 Gran # 3.99 (1.4-6.5) 04/12/17 07:30 Lymph # 1.9 (1.2-3.4) 04/12/17 07:30 Perkins # 0.5 (0.1-0.6) 04/12/17 07:30 Eos # 0.2 (0.0-0.7) 04/12/17 07:30 Baso # 0.05 K/mm3 (0.0-2.0) 04/12/17 07:30 Neutrophils % (Manual) 88 % (50.0-70.0) H 04/08/17 14:30 Lymphocytes % (Manual) 6 % (22.0-35.0) L 04/08/17 14:30 Monocytes % (Manual) 6 % (1.0-6.0) 04/08/17 14:30 Platelet Evaluation Normal (NORMAL) 04/08/17 14:30 pO2 33 mm/Hg (30-55) 04/08/17 14:30 VBG pH 7.48 (7.32-7.43) H 04/08/17 14:30 VBG pCO2 27.0 (40-60) L 04/08/17 14:30 VBG HCO3 20.1 mmol/l (21-28) L 04/08/17 14:30 VBG Total CO2 20.9 mmol.L (22-28) L 04/08/17 14:30 VBG O2 Sat (Calc) 72.0 % (40-65) H 04/08/17 14:30 VBG Base Excess -2.0 mmol/L (0.0-2.0) L 04/08/17 14:30 VBG Potassium 3.9 mmol/L (3.6-5.2) 04/08/17 14:30 Sodium 135.0 mmol/L (132-148) 04/08/17 14:30 Chloride 95.0 mmol/L (98-107) L 04/08/17 14:30 Glucose 142 mg/dl (75-110) H 04/08/17 14:30 Lactate 1.6 mmol/L (0.7-2.1) 04/08/17 14:30 FiO2 21.0 % 04/08/17 14:30 Sodium 135 mmol/L (132-148) 04/12/17 07:30 Potassium 4.1 mmol/L (3.6-5.0) 04/12/17 07:30 Chloride 99 mmol/L (98-107) 04/12/17 07:30 Carbon Dioxide 28 mmol/L (21-33) 04/12/17 07:30 Anion Gap 12 (10-20) 04/12/17 07:30 BUN 17 mg/dL (7-21) 04/12/17 07:30 Creatinine 4.4 mg/dL (0.5-1.4) H 04/12/17 07:30 Est GFR ( Amer) 17 04/12/17 07:30 Est GFR (Non-Af Amer) 14 04/12/17 07:30 POC Glucose (mg/dL) 317 mg/dL (65-110) H 04/11/17 21:14 Random Glucose 145 mg/dL (70-110) H 04/12/17 07:30 Lactic Acid 1.4 mmol/L (0.7-2.1) 04/09/17 16:00 Calcium 7.6 mg/dL (8.4-10.5) L 04/12/17 07:30 Phosphorus 3.0 mg/dL (2.5-4.5) 04/12/17 07:30 Magnesium 1.8 mg/dL (1.7-2.2) 04/12/17 07:30 Total Bilirubin 0.6 mg/dL (0.2-1.3) 04/12/17 07:30 AST 19 U/L (15-59) 04/12/17 07:30 ALT 21 U/L (7-56) 04/12/17 07:30 Alkaline Phosphatase 84 U/L (38-133) 04/12/17 07:30 Total Creatine Kinase 289 U/L (35-230) H 04/08/17 14:30 CK-MB (CK-2) 2.3 ng/mL (0.0-3.6) 04/08/17 14:30 CK-MB (CK-2) % Cancelled 04/08/17 14:30 Troponin I 0.05 ng/mL D 04/10/17 15:33 Total Protein 5.3 g/dL (5.8-8.3) L 04/12/17 07:30 Albumin 2.9 g/dL (3.0-4.8) L 04/12/17 07:30 Globulin 2.4 gm/dL 04/12/17 07:30 Albumin/Globulin Ratio 1.2 (1.1-1.8) 04/12/17 07:30 Lipase 41 U/L (23-300) 04/08/17 14:30 TSH 3rd Generation 1.12 mIU/mL (0.46-4.68) 04/08/17 14:30 Plasma Metanephrine TNP 04/11/17 07:30 Plasma Normetanephrine TNP 04/11/17 07:30 Plas Total Metaneph TNP 04/11/17 07:30 Venous Blood Potassium 3.9 mmol/L (3.6-5.2) 04/08/17 14:30 Urine Color yellow (YELLOW) 04/09/17 12:40 Urine Appearance Slight-cloudy (CLEAR) 04/09/17 12:40 Urine pH 7.5 (4.7-8.0) 04/09/17 12:40 Ur Specific [place] 1.020 (1.005-1.035) 04/09/17 12:40 Urine Protein >=300 mg/dL (<30 mg/dL) H 04/09/17 12:40 Urine Glucose (UA) 250 mg/dL (NEGATIVE) H 04/09/17 12:40 Urine Ketones 40 mg/dL (NEGATIVE) H 04/09/17 12:40 Urine Blood Small (NEGATIVE) H 04/09/17 12:40 Urine Nitrate Negative (NEGATIVE) 04/09/17 12:40 Urine Bilirubin Small (NEGATIVE) H 04/09/17 12:40 Urine Urobilinogen 0.2 E.U./dL (<1 E.U./dL) 04/09/17 12:40 Ur Leukocyte Esterase Negative Zarina/uL (NEGATIVE) 04/09/17 12:40 Urine RBC 20 - 25 /hpf (0-2) 04/09/17 12:40 Urine WBC 5 - 10 /hpf (0-6) 04/09/17 12:40 Ur Epithelial Cells 4 - 5 /hpf (0-5) 04/09/17 12:40 Amorphous Sediment Small 04/09/17 12:40 Urine Opiates Screen Negative (NEGATIVE) 04/09/17 12:40 Urine Methadone Screen Negative (NEGATIVE) 04/09/17 12:40 Ur Barbiturates Screen Negative (NEGATIVE) 04/09/17 12:40 Ur Phencyclidine Scrn Negative (NEGATIVE) 04/09/17 12:40 Ur Amphetamines Screen Negative (NEGATIVE) 04/09/17 12:40 U Benzodiazepines Scrn Negative (NEGATIVE) 04/09/17 12:40 U Oth Cocaine Metabols Negative (NEGATIVE) 04/09/17 12:40 U Cannabinoids Screen Positive (NEGATIVE) H 04/09/17 12:40 Alcohol, Quantitative < 10 mg/dL (0-10) 04/08/17 14:30 Attending/Attestation - Attestation I have personally seen and examined this patient.: Yes I have fully participated in the care of the patient.: Yes I have reviewed all pertinent clinical information, including history, physical exam and plan: Yes Notes (Text): I have seen and examined patient with medical services manager. Agree with the above note with the following additions/ exceptions: Briefly this is 56 year old male with a past medical history significant for hypertension, DM-2, CAD S/P CABG , ESRD was recently started on on hemodialysis , Marijuana abuse was admitted for syncope most likely secondary to illicit drug abuse. He was not hypoglycemic, gave history of incontinence of stool, there was no tongue bite and no focal deficit. MRI of Brain is normal. EEG not suggestive of seizure. Patients nausea and vomiting has resolved. He is alert and awake today. CT abdomen and Pelvis is negative. Hemoglobin has dropped 11.4 to 8.7. Patient had transient episode of hematemesis however no active bleeding was noted. We will continue PPI. GI recommended outpatient EGD and colonoscopy. Mild elevated troponin is likely due to demand ischemia in setting of ESRD. He had episodes of bradycardia yesterday and medications were adjusted. Management plan was discussed in detail with patient. Upon discharge patient will follow up with Dr Ward. Dr Marty Muir
[2017-04-12 14:56] VITALS: PULSE 87
== END 2017-04-12 16:23 | disposition home or self-care (01) | DRG 747 ==
LOC: ED 13:46 → ERH 16:43 → 2RSO 20:18 → OBSVTOIN 04-10 07:58
PROVIDERS: ADMIT Internal Medicine; ATTEND Hospitalist
PROC: 5A1D00Z (ICD-10-PCS; principal; 2017-04-08)
DX: F12.10 Cannabis abuse, uncomplicated (principal); E10.22 Type 1 diabetes mellitus with diabetic chronic kidney disease; A41.9 Sepsis, unspecified organism; K92.0 Hematemesis; I24.8 Other forms of acute ischemic heart disease; N18.6 End stage renal disease; E10.649 Type 1 diabetes mellitus with hypoglycemia without coma; T85.79XA Infection and inflammatory reaction due to other internal prosthetic devices, implants and grafts, initial encounter; E87.6 Hypokalemia; I50.9 Heart failure, unspecified; N04.9 Nephrotic syndrome with unspecified morphologic changes; D64.9 Anemia, unspecified; E55.9 Vitamin D deficiency, unspecified; E78.00 Pure hypercholesterolemia, unspecified; F32.89 Other specified depressive episodes; I15.9 Secondary hypertension, unspecified; I25.10 Atherosclerotic heart disease of native coronary artery without angina pectoris; I25.2 Old myocardial infarction; K20.9 Esophagitis, unspecified; N25.81 Secondary hyperparathyroidism of renal origin; Z79.4 Long term (current) use of insulin; Z79.899 Other long term (current) drug therapy; Z86.73 Personal history of transient ischemic attack (TIA), and cerebral infarction without residual deficits; Z87.440 Personal history of urinary (tract) infections; Z91.14 Patient's other noncompliance with medication regimen; Z91.19 Patient's noncompliance with other medical treatment and regimen; Z95.1 Presence of aortocoronary bypass graft; Z95.5 Presence of coronary angioplasty implant and graft; Z99.2 Dependence on renal dialysis; R11.2 Nausea with vomiting, unspecified; R00.1 Bradycardia, unspecified

== ENCOUNTER 2017-04-14 19:34 | Inpatient (IN) | payer OTHER ==
[2017-04-14] MEDS ORDERED: Sodium Chloride 0.9% 500 ML IV STA (19:43)
--- NOTE | 2017-04-14 19:50 | ED PDOC ---
Arrival/HPI - General Chief Complaint: GI Problem Time Seen by Provider: 04/14/17 19:40 Historian: Patient - History of Present Illness Narrative History of Present Illness (Text): 04/14/17 19:52 A 56 year old male, whose past medical history includes ESRD (last dialysis treatment this morning), was brought in by EMS to the emergency department for hematemesis that started about 7-8 hours ago and abdominal pain. Patient denies any chest pain or any other complaints at this time. Time/Duration: Other (7-8 hours) Symptom Onset: Sudden Symptom Course: Unchanged Activities at Onset: Rest Context: Home Past Medical History - Provider Review Nursing Documentation Reviewed: Yes - Infectious Disease Hx of Infectious Diseases: None - Tetanus Immunization Tetanus Immunization: Unknown - Cardiac Hx Cardiac Disorders: Yes (CABG x 3) Hx Hypertension: Yes - Pulmonary Hx Respiratory Disorders: Yes Other/Comment: PULMONARY EDEMA - Neurological HX Cerebrovascular Accident: Yes - HEENT Hx HEENT Disorder: Yes (CONTACT LENSES) - Renal Hx Renal Failure: Yes - Endocrine/Metabolic Hx Diabetes Mellitus Type 1: Yes - Hematological/Oncological Hx Blood Disorders: No - Integumentary Hx Dermatological Disorder: Yes Other/Comment: millicent hernández ext rash, pt stated "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" - Musculoskeletal/Rheumatological Hx Musculoskeletal Disorders: No Hx Falls: No Other/Comment: generalized weakness - Gastrointestinal Hx Gastrointestinal Disorders: No - Genitourinary/Gynecological Hx Urinary Tract Infection: Yes - Psychiatric Hx Psychophysiologic Disorder: No Hx Depression: No Hx Emotional Abuse: No Hx Physical Abuse: No Hx Substance Use: Yes (MARIJUANA) - Surgical History Hx Amputation: Yes (R toes) Hx Cardiac Catheterization: Yes (09/09) Hx Coronary Stent: Yes Hx Open Heart Surgery: Yes (12-26-12) - Anesthesia Hx Anesthesia: Yes Hx Anesthesia Reactions: No - Suicidal Assessment Feels Threatened In Home Enviroment: No Family/Social History - Physician Review Nursing Documentation Reviewed: Yes Family/Social History: Other (non-contributory) Smoking Status: Never Smoked Hx Alcohol Use: Yes (QUIT 4 YEARS AGO) Hx Substance Use: Yes (MARIJUANA) Hx Substance Use Treatment: No Allergies/Home Meds Allergies/Adverse Reactions: Allergies morphine Allergy (Verified 04/08/17 14:04) ANAPHYLAXIS sea food Allergy (Severe, Uncoded 04/08/17 14:04) ANAPHYLAXIS Home Medications: Home Meds Medication Instructions Recorded Confirmed Insulin Glargine, Recombina 30 unit SQ HS 04/05/16 04/14/17 [Lantus] Insulin Lispro [Humalog] 10 units SQ AC 04/05/16 04/14/17 Omeprazole 20 mg PO DAILY 03/25/17 04/14/17 Review of Systems - Physician Review All systems were reviewed & negative as marked: Yes - Review of Systems Cardiovascular: absent: Chest Pain Gastrointestinal: Abdominal Pain, Vomiting, Hematemesis Physical Exam Vital Signs Reviewed: Yes Vital Signs Temp Pulse Resp BP Pulse Ox 04/14/17 22:43 110 H 153/76 H 97 04/14/17 22:42 110 H 27 H 04/14/17 22:06 109 H 18 128/66 95 04/14/17 20:21 101.9 F H 120 H 18 108/55 L 98 Appearance: Positive for: Ill-Appearing, Other (diaphoretic, bloody vomit on shirt) Pain Distress: None Mental Status: Positive for: Alert and Oriented X 3 Finger Stick Blood Glucose: 295 - Systems Exam Head: Present: Atraumatic, Normocephalic Pupils: Present: PERRL Extroacular Muscles: Present: EOMI Conjunctiva: Present: Other (pale) Mouth: Present: Moist Mucous Membranes Neck: Present: Normal Range of Motion Respiratory/Chest: Present: Clear to Auscultation, Good Air Exchange. No: Respiratory Distress, Accessory Muscle Use Cardiovascular: Present: Regular Rate and Rhythm, Normal S1, S2. No: Murmurs Abdomen: Present: Normal Bowel Sounds. No: Tenderness, Distention, Peritoneal Signs Rectal: Present: Other (hemoccult positive). No: Gross Blood, Melena Back: Present: Normal Inspection Upper Extremity: Present: Normal Inspection. No: Cyanosis, Edema Lower Extremity: Present: Normal Inspection. No: Edema Neurological: Present: GCS=15, CN II-XII Intact, Speech Normal Skin: Present: Warm, Dry, Normal Color. No: Rashes Psychiatric: Present: Alert, Oriented x 3, Normal Insight, Normal Concentration Medical Decision Making ED Course and Treatment: 04/14/17 19:50 EKG: Ordered, reviewed, and independently interpreted the EKG. Rate : 129 BPM Rhythm : sinus tachycardic Interpretation : ST and T wave changes similar to prior EKG, no STEMI 04/14/17 20:55 chest xray: Right lower lobe opacity, interpreted by me. - Critical Care Critical Care Minutes: 45 minutes - Lab Interpretations Lab Results: 04/14/17 20:06 04/14/17 20:06 Lab Results 04/14/17 21:00: pO2 29 L, VBG pH 7.39, VBG pCO2 35.0 L, VBG HCO3 21.2, VBG Total CO2 22.3, VBG O2 Sat (Calc) 59.6, VBG Base Excess -3.2 L, VBG Potassium 4.6, Glucose 302 H, Lactate 3.8 H, FiO2 21.0, Sodium 138.0, Chloride 98.0, Venous Blood Potassium 4.6 04/14/17 20:06: PT 11.8, INR 1.09 H, APTT 29.1 04/14/17 20:06: Blood Type A POSITIVE, Antibody Screen Negative, BBK History Checked Patient has bt 04/14/17 20:06: Sodium 137, Potassium 3.9, Chloride 96 L, Carbon Dioxide 20 L, Anion Gap 25 H, BUN 18, Creatinine 4.9 H, Est GFR ( Amer) 15, Est GFR ( Non-Af Amer) 12, Random Glucose 303 H* D, Calcium 8.9, Total Bilirubin 0.9, AST 31, ALT 28, Alkaline Phosphatase 122, Troponin I 0.11 D, Total Protein 7.4, Albumin 4.2, Globulin 3.2, Albumin/Globulin Ratio 1.3 04/14/17 20:06: WBC 18.3 H D, RBC 4.43, Hgb 12.1 L D, Hct 36.3 L, MCV 81.9, MCH 27.3, MCHC 33.3, RDW 15.8 H, Plt Count 277, MPV 10.7, Gran % 91.6 H, Lymph % ( Auto) 2.5 L, [place] % (Auto) 5.7, Eos % (Auto) 0.1 L, Baso % (Auto) 0.1, Gran # 16.79 H, Lymph # 0.5 L, [place] # 1.1 H, Eos # 0.0, Baso # 0.02, Neutrophils % ( Manual) 95 H, Lymphocytes % (Manual) 1 L, Monocytes % (Manual) 4, Platelet Evaluation Normal, Anisocytosis (manual) Slight, Ovalocytes Slight 04/14/17 19:41: POC Glucose (mg/dL) 295 H I have reviewed the lab results: Yes - RAD Interpretation Radiology Orders: 04/14/17 19:42 CHEST PORTABLE [RAD] Stat - EKG Interpretation Interpreted by ED Physician: Yes Type: 12 lead EKG - Medication Orders Current Medication Orders: Sodium Chloride (Sodium Chloride 0.9%) 1,000 mls @ 100 mls/hr IV .Q10H MARYANN Last Admin: 04/15/17 00:51 Dose: 100 mls/hr Meropenem 500 mg/ Sodium (Chloride) 100 mls @ 100 mls/hr IVPB Q12 MARYANN PRN Reason: Protocol Stop: 04/21/17 23:46 Last Admin: 04/15/17 00:47 Dose: 100 mls/hr Insulin Detemir (Levemir) 20 unit SC HS MARYANN Last Admin: 04/14/17 23:37 Dose: 20 unit Insulin Human Regular (Humulin R Med) 0 units SC Q6H MARYANN PRN Reason: Protocol Last Admin: 04/15/17 17:15 Dose: Not Given Non-Admin Reason: Blood Sugar Parameter Metoprolol Tartrate (Lopressor) 50 mg PO BID [facility] Nitroglycerin (Nitro-Bid 2% Oint) 1 ea TOP Q6 MARYANN Last Admin: 04/15/17 13:08 Dose: 1 ea Ondansetron HCl (Zofran Inj) 4 mg IVP Q6H PRN PRN Reason: Nausea/Vomiting Last Admin: 04/15/17 01:49 Dose: 4 mg Pantoprazole Sodium (Protonix Inj) 40 mg IVP Q12 MARYANN Last Admin: 04/15/17 10:02 Dose: 40 mg Discontinued Medications Sodium Chloride (Sodium Chloride 0.9%) 500 mls @ 999 mls/hr IV .Q31M STA Stop: 04/14/17 20:13 Last Admin: 04/14/17 20:16 Dose: 999 mls/hr Piperacillin Sod/Tazobactam Sod (Zosyn 2.25 Gm In 0.9% 100 Ml) 2.25 gm in 100 mls @ 100 mls/hr IVPB STAT STA PRN Reason: Protocol Stop: 04/14/17 21:22 Last Admin: 04/14/17 21:36 Dose: 100 mls/hr Vancomycin HCl 1,400 mg/ (Sodium Chloride) 500 mls @ 333.333 mls/hr IV STAT STA Stop: 04/14/17 22:04 Last Admin: 04/14/17 21:52 Dose: 333.333 mls/hr Levofloxacin/Dextrose (Levaquin 750mg) 750 mg in 150 mls @ 100 mls/hr IVPB STAT STA Stop: 04/14/17 22:23 Last Admin: 04/14/17 23:38 Dose: 100 mls/hr Acetaminophen (Ofirmev) 1,000 mg in 100 mls @ 400 mls/hr IVPB STAT STA Stop: 04/14/17 21:46 Last Admin: 04/14/17 22:02 Dose: 400 mls/hr Re-Assess: MAR Pain Assessment Document 04/14/17 23:02 AMA (Rec: 04/15/17 06:[address]) Pain Reassessment Is this a pain reassessment? No Sleep Is patient sleeping during reassessment? No Presence of Pain Presence of Pain No Iodixanol (Visipaque 320 Mg/Ml 100 Ml) Confirm Administered Dose 100 ml IV .STK- MED ONE Stop: 04/14/17 21:14 Lorazepam (Ativan) 0.25 mg IVP ONCE ONE PRN Reason: Protocol Stop: 04/15/17 04:13 Last Admin: 04/15/17 04:21 Dose: 0.25 mg Re-Assess: Reassess Psych Meds Document 04/15/17 04:51 AMA (Rec: 04/15/17 06:[address]) Reassess Psych Med Effective Metoprolol Tartrate (Lopressor) 25 mg PO STAT STA Stop: 04/15/17 12:45 Last Admin: 04/15/17 12:55 Dose: 25 mg Ondansetron HCl (Zofran Inj) 4 mg IVP ONCE ONE Stop: 04/14/17 19:44 Last Admin: 04/14/17 20:14 Dose: 4 mg Pantoprazole Sodium (Protonix Inj) 40 mg IVP STAT STA Stop: 04/14/17 19:44 Last Admin: 04/14/17 20:13 Dose: 40 mg - Jose Miguelibe Statement The provider has reviewed the documentation as recorded by the Tamara Zee Provider Tamara Attestation: All medical record entries made by the Tamara were at my direction and personally dictated by me. I have reviewed the chart and agree that the record accurately reflects my personal performance of the history, physical exam, medical decision making, and the department course for this patient. I have also personally directed, reviewed, and agree with the discharge instructions and disposition. Disposition/Present on Arrival - Present on Arrival Any Indicators Present on Arrival: No History of DVT/PE: No History of Uncontrolled Diabetes: No Urinary Catheter: No History of Decub. Ulcer: No History Surgical Site Infection Following: None - Disposition Have Diagnosis and Disposition been Completed?: Yes Diagnosis: Upper GI bleeding, Fever Disposition: HOSPITALIZED Disposition Time: 21:41 Condition: GUARDED
[2017-04-14 20:19] LABS: BASO # 0.02 K/mm3 (0.0-2.0); BASO % 0.1 % (0.0-3.0); EOS % 0.1 % (1.5-5.0); GRAN # 16.79 (1.4-6.5); GRAN % 91.6 % (50.0-68.0); HEMATOCRIT 36.3 % (42.0-52.0); LYMPH # 0.5 (1.2-3.4); LYMPH % 2.5 % (22.0-35.0); MEAN CELL VOLUME 81.9 fl (80.0-105.0); MEAN CORPUSCULAR HEMOGLOBIN 27.3 pg (25.0-35.0); MEAN CORPUSCULAR HGB CONC 33.3 g/dl (31.0-37.0); MEAN PLATELET VOLUME 10.7 fl (7.0-11.0); MONO # 1.1 (0.1-0.6); MONO % 5.7 % (1.0-6.0); PLATELET COUNT 277 10^3/uL (120.0-450.0); RED CELL DISTRIBUTION WIDTH 15.8 % (11.5-14.5); WHITE BLOOD COUNT 18.3 10^3/ul (4.5-11.0)
[2017-04-14] MEDS ORDERED: Vancomycin 500 mg Inj IVPB STA (20:23)
[2017-04-14] MEDS ORDERED: Piperacillin/Tazobact 2.25gm 2.25 GM/100 ML BAG IVPB STA (20:23)
[2017-04-14 20:28] LABS: ALB/GLOB RATIO 1.3 (1.1-1.8); BILIRUBIN,TOTAL 0.9 mg/dL (0.2-1.3); CALCIUM 8.9 mg/dL (8.4-10.5); INR 1.09 (0.93-1.08); PARTIAL THROMBOPLASTIN TIME 29.1 Seconds (23.7-30.8); POTASSIUM 3.9 mmol/L (3.6-5.0); TOTAL PROTEIN 7.4 g/dL (5.8-8.3)
[2017-04-14 20:40] LABS: TROPONIN I 0.11 ng/mL
[2017-04-14 20:54] LABS: NEUTROPHIL 95 % (50.0-70.0)
[2017-04-14] MEDS ORDERED: levoFLOXacin 750 mg in D5W 750 MG/150 ML BAG IVPB STA (20:54)
[2017-04-14 20:55] LABS: ANISOCYTOSIS SLIGHT; OVALOCYTES SLIGHT; PLATELET ESTIMATE NORMAL (NORMAL)
[2017-04-14 21:12] LABS: VENOUS BLOOD GAS BASE EXCESS -3.2 mmol/L (0.0-2.0); VENOUS BLOOD PH 7.39 (7.32-7.43)
[2017-04-14] MEDS ORDERED: Iodixanol 320 MG/ML 100 ML BOTTLE IV ONE (21:13)
--- NOTE | 2017-04-14 21:32 | CP.PCM.HP ---
<Jb Suero - Last Filed: 04/15/17 00:02> History of Present Illness - History of Present Illness History of Present Illness: CC: Vomiting blood HPI: Patient is a 56 year old male with pmhy sig for ESRD recently placed on HD , CAD, HTN, NC x3, DM2, peripheral neuropathy, hx of CVA, AMS and THC useage who comes to [facility] ED complaining of episodes of bloody vomit in the past 12 hours as well as general fatigue. Of note patient is noted to be poor historian and uncooperative during questioning. Patient reports that he began experiencing coffee ground emesis earlier in day which then progressed to bright red blood vomit which then progressed to green bilious vomit on presentation at ED. Patient states the vomiting began sometime earlier in the day. He reports producing about a cup worth of blood over the period of the day. He indicates 10 episodes of vomiting with continuous symptoms of nausea. Patient did receive hemodialysis through recently placed perma cath of the right chest today. He indicates that he began feeling fatigued following his HD session earlier today. Admits to subjective fever and increased thirst. He denies chest pain, abdominal pain, shortness of breath, chills. 12 point ROS negative otherwise mentioned in HPI. PMH: ESRD on HD, CAD, HTN, NC x 3, DM, peripheral neuropathy, history of falls, history of CVA, AMS PSH: Stents x 3, CABG, left hip surgery, Left knee surgery, Right foot partial amputation All: Morphine, seafood SH: Denies recent tobacco, etoh ID: THC use in recent past, lives with roomate, ambulates with assistance of walker Medication: See MAR Present on Admission - Present on Admission Any Indicators Present on Admission: No History of DVT/PE: No History of Uncontrolled Diabetes: No Urinary Catheter: No Decubitus Ulcer Present: No Review of Systems - Review of Systems All systems: reviewed and no additional remarkable complaints except Review of Systems: otherwise mentioned in HPI Past Patient History - Infectious Disease Hx of Infectious Diseases: None - Tetanus Immunizations Tetanus Immunization: Unknown - Past Medical History & Family History Past Medical History?: Yes - Past Social History Smoking Status: Never Smoked Alcohol: None Drugs: Cannabis - CARDIAC Hx Cardiac Disorders: Yes (CABG x 3) Hx Hypertension: Yes - PULMONARY Hx Respiratory Disorders: Yes Other/Comment: PULMONARY EDEMA - NEUROLOGICAL HX Cerebrovascular Accident: Yes - HEENT Hx HEENT Problems: Yes (CONTACT LENSES) - RENAL Hx Renal Failure: Yes - ENDOCRINE/METABOLIC Hx Diabetes Mellitus Type 1: Yes - HEMATOLOGICAL/ONCOLOGICAL Hx Blood Disorders: No - INTEGUMENTARY Hx Dermatological Problems: Yes Other/Comment: millicent hernández ext rash, pt stated "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" - MUSCULOSKELETAL/RHEUMATOLOGICAL Hx Musculoskeletal Disorders: No Hx Falls: No Other/Comment: generalized weakness - GASTROINTESTINAL Hx Gastrointestinal Disorders: No - GENITOURINARY/GYNECOLOGICAL Hx Urinary Tract Infection: Yes - PSYCHIATRIC Hx Psychophysiologic Disorder: No Hx Depression: No Hx Emotional Abuse: No Hx Physical Abuse: No Hx Substance Use: Yes (MARIJUANA) - SURGICAL HISTORY Hx Amputation: Yes (R toes) Hx Cardiac Catheterization: Yes (09/09) Hx Coronary Stent: Yes Hx Open Heart Surgery: Yes (12-26-12) - ANESTHESIA Hx Anesthesia: Yes Hx Anesthesia Reactions: No Meds Allergies/Adverse Reactions: Allergies Allergy/AdvReac Type Severity Reaction Status Date / Time morphine Allergy ANAPHYLAXIS Verified 04/08/17 14:04 sea food Allergy Severe ANAPHYLAXIS Uncoded 04/08/17 14:04 Physical Exam - Constitutional Appears: No Acute Distress - Head Exam Head Exam: ATRAUMATIC, NORMAL INSPECTION, NORMOCEPHALIC - Eye Exam Eye Exam: EOMI, PERRL - ENT Exam ENT Exam: Mucous Membranes Dry - Neck Exam Neck exam: Positive for: Full Rom, Normal Inspection - Respiratory Exam Respiratory Exam: Clear to Auscultation Bilateral, NORMAL BREATHING PATTERN - Cardiovascular Exam Cardiovascular Exam: Tachycardia, REGULAR RHYTHM, +S1, +S2 - GI/Abdominal Exam GI & Abdominal Exam: Normal Bowel Sounds, Soft. absent: Guarding, Tenderness - Extremities Exam Extremities exam: Positive for: pedal pulses present. Negative for: pedal edema Additional comments: right lower foot amputation - Back Exam Back exam: NORMAL INSPECTION - Neurological Exam Neurological exam: Alert, CN II-XII Intact, Oriented x3, Reflexes Normal Additional comments: motor and sensory grossly intact - Psychiatric Exam Psychiatric exam: Normal Affect, Normal Mood - Skin Skin Exam: Dry, Intact, Warm Results - Vital Signs Recent Vital Signs: Last Vital Signs Temp 101.9 F H 04/14/17 20:21 Pulse 120 H 04/14/17 20:21 Resp 18 04/14/17 20:21 BP 108/55 L 04/14/17 20:21 Pulse Ox 98 04/14/17 20:21 - Labs Result Diagrams: 04/14/17 20:06 04/14/17 20:06 Labs: Laboratory Results - last 24 hr 04/14/17 04/14/17 04/14/17 19:41 20:06 20:06 WBC 18.3 H D RBC 4.43 Hgb 12.1 L D Hct 36.3 L MCV 81.9 MCH 27.3 MCHC 33.3 RDW 15.8 H Plt Count 277 MPV 10.7 Gran % 91.6 H Lymph % (Auto) 2.5 L [place] % (Auto) 5.7 Eos % (Auto) 0.1 L Baso % (Auto) 0.1 Gran # 16.79 H Lymph # 0.5 L [place] # 1.1 H Eos # 0.0 Baso # 0.02 Neutrophils % (Manual) 95 H Lymphocytes % (Manual) 1 L Monocytes % (Manual) 4 Platelet Evaluation Normal Anisocytosis (manual) Slight Ovalocytes Slight PT INR APTT pO2 VBG pH VBG pCO2 VBG HCO3 VBG Total CO2 VBG O2 Sat (Calc) VBG Base Excess VBG Potassium Glucose Lactate FiO2 Sodium 137 Potassium 3.9 Chloride 96 L Carbon Dioxide 20 L Anion Gap 25 H BUN 18 Creatinine 4.9 H Est GFR ( Amer) 15 Est GFR (Non-Af Amer) 12 POC Glucose (mg/dL) 295 H Random Glucose 303 H* D Calcium 8.9 Total Bilirubin 0.9 AST 31 ALT 28 Alkaline Phosphatase 122 Troponin I 0.11 D Total Protein 7.4 Albumin 4.2 Globulin 3.2 Albumin/Globulin Ratio 1.3 Venous Blood Potassium BBK History Checked 04/14/17 04/14/17 04/14/17 20:06 20:06 21:00 WBC RBC Hgb Hct MCV MCH MCHC RDW Plt Count MPV Gran % Lymph % (Auto) [place] % (Auto) Eos % (Auto) Baso % (Auto) Gran # Lymph # [place] # Eos # Baso # Neutrophils % (Manual) Lymphocytes % (Manual) Monocytes % (Manual) Platelet Evaluation Anisocytosis (manual) Ovalocytes PT 11.8 INR 1.09 H APTT 29.1 pO2 29 L VBG pH 7.39 VBG pCO2 35.0 L VBG HCO3 21.2 VBG Total CO2 22.3 VBG O2 Sat (Calc) 59.6 VBG Base Excess -3.2 L VBG Potassium 4.6 Glucose 302 H Lactate 3.8 H FiO2 21.0 Sodium 138.0 Potassium Chloride 98.0 Carbon Dioxide Anion Gap BUN Creatinine Est GFR ( Amer) Est GFR (Non-Af Amer) POC Glucose (mg/dL) Random Glucose Calcium Total Bilirubin AST ALT Alkaline Phosphatase Troponin I Total Protein Albumin Globulin Albumin/Globulin Ratio Venous Blood Potassium 4.6 BBK History Checked Patient has bt Assessment & Plan - Assessment and Plan (Free Text) Assessment: Patient is a 56 year old male with pmh sig for ESRD recently placed on HD, CAD, HTN, NC x3, DM2, peripheral neuropathy, hx of CVA, AMS and THC useage who comes to [facility] ED complaining of episodes of bloody vomit in the past 12 hours as well as general fatigue. Patient was found to be febrile in ED with elevated WBC. Patient H/H is stable and is being evaluated and monitored in ICU. Plan: 1. Hematemesis - questionable episodes of hematemesis today - patient placed in ICU for hemodynamic monitoring - H/H stable, monitor Q6H - npo - hemodynamically stable at this time 2. Leukocytosis - Febrile in ED - suspected source to be perma cath - IR consulted for eval - Follow up blood culture, perma cath culture, procal - Zosyn and Vanc in ED - ID consulted, appreciate recs 3. ESRD recently placed on HD - HD received MWF - Electrolytes stable - Nephro consulted, appreciate recs 4. DM/peripheral neuropathy -Accuchecks -ISS -med protocol -Levemir 20 units QHS, 5. Hx of CAD, s/p NC x 3 - Troponin neg x 1, Trend troponin x2 - Hold home meds, stent placed >1 yr prior - EKG shows NRS, septal infarct & inferior infarct of indeterminate age - Monitor 6. GI/DVT ppx - SCDs - protonix case discussed and reviewed with attending - Date & Time Date: 04/14/17 Time: 00:02 <Darian Mcnamara P - Last Filed: 04/15/17 07:00> Results - Vital Signs Recent Vital Signs: Last Vital Signs Temp 98.2 F 04/15/17 04:00 Pulse 102 H 04/15/17 06:20 Resp 18 04/15/17 06:20 BP 128/85 04/15/17 06:00 Pulse Ox 98 04/15/17 06:20 - Labs Result Diagrams: 04/15/17 05:30 04/15/17 05:30 Labs: Laboratory Results - last 24 hr 04/14/17 04/15/17 04/15/17 23:31 01:00 01:00 WBC RBC Hgb Hct MCV MCH MCHC RDW Plt Count MPV Gran % Lymph % (Auto) [place] % (Auto) Eos % (Auto) Baso % (Auto) Gran # Lymph # [place] # Eos # Baso # pO2 29 L VBG pH 7.43 VBG pCO2 37.0 L VBG HCO3 24.6 VBG Total CO2 25.7 VBG O2 Sat (Calc) 62.6 VBG Base Excess 0.5 VBG Potassium 4.2 Sodium 137.0 Chloride 100.0 Glucose 243 H Lactate 2.9 H FiO2 21.0 Potassium Carbon Dioxide Anion Gap BUN Creatinine Est GFR ( Amer) Est GFR (Non-Af Amer) POC Glucose (mg/dL) 276 H Random Glucose Calcium Total Bilirubin AST ALT Alkaline Phosphatase Troponin I 0.32 H* D Total Protein Albumin Globulin Albumin/Globulin Ratio Venous Blood Potassium 4.2 04/15/17 04/15/17 05:30 05:30 WBC 10.3 D RBC 4.12 Hgb 11.1 L Hct 34.1 L MCV 82.8 MCH 26.9 MCHC 32.6 RDW 16.6 H Plt Count 210 MPV 11.4 H Gran % 89.5 H Lymph % (Auto) 4.0 L [place] % (Auto) 6.3 H Eos % (Auto) 0.1 L Baso % (Auto) 0.1 Gran # 9.21 H Lymph # 0.4 L [place] # 0.7 H Eos # 0.0 Baso # 0.01 pO2 VBG pH VBG pCO2 VBG HCO3 VBG Total CO2 VBG O2 Sat (Calc) VBG Base Excess VBG Potassium Sodium 139 Chloride 100 Glucose Lactate FiO2 Potassium 3.9 Carbon Dioxide 25 Anion Gap 18 BUN 23 H Creatinine 5.3 H Est GFR ( Amer) 14 Est GFR (Non-Af Amer) 11 POC Glucose (mg/dL) Random Glucose 157 H Calcium 8.0 L Total Bilirubin 0.6 AST 26 ALT 29 Alkaline Phosphatase 97 Troponin I Total Protein 6.3 Albumin 3.5 Globulin 2.8 Albumin/Globulin Ratio 1.3 Venous Blood Potassium Attending/Attestation - Attestation I have personally seen and examined this patient.: Yes I have fully participated in the care of the patient.: Yes I have reviewed all pertinent clinical information: Yes Notes (Text): Assessment * Sepsis probably from infected HD cath insertion site is erythematous and scant discharge noticed * Questionable hemetemesis, maintained hemoglobin * H/o CAD, CABG, PCI years back * IDDM * h/o severe htn atherosclerosis Plan * Broad spectrum abx with to cover MRSA, pseudomonas * Culture blood/cath * IR eval * GI consult * PPI iv * NPO except meds * Basal insulin with sliding scale coverage
--- NOTE | 2017-04-14 22:24 | CT ---
EXAM: CT Abdomen and Pelvis Without Intravenous Contrast CLINICAL HISTORY: 56 years old, male; Pain; Abdominal pain; Generalized; Additional info: Fever abd pain, vomiting blood TECHNIQUE: Axial computed tomography images of the abdomen and pelvis without intravenous contrast. All CT scans at this facility use one or more dose reduction techniques, viz.: automated exposure control; ma/kV adjustment per patient size (including targeted exams where dose is matched to indication; i.e. head); or iterative reconstruction technique. Coronal reformatted images were created and reviewed. COMPARISON: CT - ABDOMEN W/O CONTRAST 04/09/2017, 04/05/2016 FINDINGS: Limitations: Motion artifact - mild. Lower thorax: Coronary artery calcifications. Small hiatal hernia. ABDOMEN: Liver: Unremarkable. Gallbladder and bile ducts: Cholecystectomy. No ductal dilation. Pancreas: Unremarkable. No ductal dilation. Spleen: No splenomegaly. Adrenals: No mass. Kidneys and ureters: Mild stranding about kidneys. No renal calculi. No hydronephrosis. Stomach and bowel: Mild mild mural thickening vs underdistention of large bowel. No associated inflammatory stranding. Few scattered diverticula within colon. No associated inflammatory stranding. No obstruction. Appendix: Normal caliber. No inflammation. PELVIS: Bladder: Apparent mild bladder wall thickening/trabeculation. Incomplete distention, limiting evaluation. No stones. Reproductive: Unremarkable as visualized. ABDOMEN and PELVIS: Intraperitoneal space: No significant fluid collection. No free air. Bones/joints: Median sternotomy. Faint sclerotic lesion within L3 vertebral body, stable. Soft tissues: Unremarkable. Vasculature: Extensive atherosclerotic disease. No aneurysm. Lymph nodes: No pathologically enlarged lymph nodes. IMPRESSION: 1. Mild colitis versus underdistention. Clinical correlation is needed. 2. Possible mild bladder wall thickening. Clinical clinical 3. Incidental/non-acute findings are described above.
[2017-04-14] MEDS: Insulin Detemir 100 units/ml Vial (Levemir) SC SCH (23:37)
[2017-04-15] MEDS: Insulin Reg-MEDIUM-Coverage SC SCH ×5 (00:10→22:00)
[2017-04-15 00:35] VITALS: BMI 32.5
[2017-04-15] MEDS: Meropenem 500 MG in Sodium Chloride 0.9% 100 ML IVPB SCH ×2 (00:47→21:02)
[2017-04-15] MEDS: Sodium Chloride 0.9% 1,000 ML IV SCH ×2 (00:51→17:28)
[2017-04-15 01:06] LABS: VENOUS BLOOD GAS BASE EXCESS 0.5 mmol/L (0.0-2.0); VENOUS BLOOD PH 7.43 (7.32-7.43)
[2017-04-15] MEDS ORDERED: Piperacillin/Tazobact 2.25gm 2.25 GM/100 ML BAG IVPB SCH (04:00)
[2017-04-15 06:17] LABS: ALB/GLOB RATIO 1.3 (1.1-1.8); BILIRUBIN,TOTAL 0.6 mg/dL (0.2-1.3); POTASSIUM 3.9 mmol/L (3.6-5.0); TOTAL PROTEIN 6.3 g/dL (5.8-8.3)
[2017-04-15 06:35] LABS: HEMATOCRIT 34.1 % (42.0-52.0); WHITE BLOOD COUNT 10.3 10^3/ul (4.5-11.0)
[2017-04-15 06:36] LABS: MEAN CELL VOLUME 82.8 fl (80.0-105.0); MEAN CORPUSCULAR HEMOGLOBIN 26.9 pg (25.0-35.0); MEAN CORPUSCULAR HGB CONC 32.6 g/dl (31.0-37.0); MEAN PLATELET VOLUME 11.4 fl (7.0-11.0); RED CELL DISTRIBUTION WIDTH 16.6 % (11.5-14.5)
[2017-04-15 06:37] LABS: BASO # 0.01 K/mm3 (0.0-2.0); BASO % 0.1 % (0.0-3.0); EOS % 0.1 % (1.5-5.0); GRAN # 9.21 (1.4-6.5); GRAN % 89.5 % (50.0-68.0); LYMPH # 0.4 (1.2-3.4); MONO # 0.7 (0.1-0.6); MONO % 6.3 % (1.0-6.0)
[2017-04-15 08:47] LABS: LIPASE 43 U/L (23-300)
[2017-04-15 09:03] LABS: AMYLASE < 30 U/L (35-125)
[2017-04-15 09:04] LABS: TROPONIN I 0.33 ng/mL
--- NOTE | 2017-04-15 09:22 | CP.PCM.CON ---
<Minerva Jacinto - Last Filed: 04/15/17 11:42> History of Present Illness - History of Present Illness History of Present Illness: Gastroenterology Fellow/PGY5 Consult Note 56 year old male with history of Diabetes, Hypertension, CAD complicated by three prior MIs s/p cardiac stents and CABG (5 years ago), CVA, recent rhabdomyolysis acute renal failure (2 weeks ago) with history of CKD on HD MWF presenting with dark emesis. Patient describes three episodes of vomiting daily for the last two days prior to admission. Notes on each day the cycle of a black vomitus followed by episode of yellow-green vomitius, and third episode of black vomitus . Admits to one dark stool on each day as well with prior normal daily bowel habits without straining. Notes two episode sof clear vomitus yesterday since admission. Nots a 20 pound weight loss in the last month due to loss of appeitie and intermittent heartburn. Denies NSAIDs or alcohol use. Admits to marijuana use monthly for 5 to 10 years. Denies hematemesis, diarreha, abdominal pain, distension, melena, or hematochezia. He states the emesis is similar to recent admission/discharge 04/12 with documented coffee-ground emesis not witnessed during inpatient stay and normal bowel habit without hematochezia or melena. GI consultation during the admission provided recommendation for outpatient EGD and colonoscopy. No prior EGD or colonoscopy. Family- denies colon cancer Social -endorses marijuana use once a month for 5-10 years; denies tobacco or alcohol use Surgery- CABG, cardiac stents, right foot partial amputation, Perm-cath Review of Systems - Review of Systems Review of Systems: 12-point review of systems negative except for as above Past Patient History - Infectious Disease Hx of Infectious Diseases: None - Tetanus Immunizations Tetanus Immunization: Unknown - Past Medical History & Family History Past Medical History?: Yes - Past Social History Smoking Status: Never Smoked Alcohol: None Drugs: Cannabis - CARDIAC Hx Cardiac Disorders: Yes (CABG x 3) Hx Hypertension: Yes - PULMONARY Hx Respiratory Disorders: Yes Other/Comment: PULMONARY EDEMA - NEUROLOGICAL HX Cerebrovascular Accident: Yes - HEENT Hx HEENT Problems: Yes (CONTACT LENSES) - RENAL Hx Renal Failure: Yes - ENDOCRINE/METABOLIC Hx Diabetes Mellitus Type 1: Yes - HEMATOLOGICAL/ONCOLOGICAL Hx Blood Disorders: No - INTEGUMENTARY Hx Dermatological Problems: Yes Other/Comment: millicent hernández ext rash, pt stated "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" - MUSCULOSKELETAL/RHEUMATOLOGICAL Hx Musculoskeletal Disorders: No Hx Falls: No Other/Comment: generalized weakness - GASTROINTESTINAL Hx Gastrointestinal Disorders: No - GENITOURINARY/GYNECOLOGICAL Hx Urinary Tract Infection: Yes - PSYCHIATRIC Hx Psychophysiologic Disorder: No Hx Depression: No Hx Emotional Abuse: No Hx Physical Abuse: No Hx Substance Use: Yes (MARIJUANA) - SURGICAL HISTORY Hx Amputation: Yes (R toes) Hx Cardiac Catheterization: Yes (09/09) Hx Coronary Stent: Yes Hx Open Heart Surgery: Yes (12-26-12) - ANESTHESIA Hx Anesthesia: Yes Hx Anesthesia Reactions: No Meds Allergies/Adverse Reactions: Allergies Allergy/AdvReac Type Severity Reaction Status Date / Time morphine Allergy ANAPHYLAXIS Verified 04/08/17 14:04 sea food Allergy Severe ANAPHYLAXIS Uncoded 04/08/17 14:04 - Medications Medications: Current Medications Sodium Chloride (Sodium Chloride 0.9%) 1,000 mls @ 100 mls/hr IV .Q10H MARYANN Last Admin: 04/15/17 00:51 Dose: 100 mls/hr Meropenem 500 mg/ Sodium (Chloride) 100 mls @ 100 mls/hr IVPB Q12 MARYANN PRN Reason: Protocol Stop: 04/21/17 23:46 Last Admin: 04/15/17 00:47 Dose: 100 mls/hr Insulin Detemir (Levemir) 20 unit SC HS MARYANN Last Admin: 04/14/17 23:37 Dose: 20 unit Insulin Human Regular (Humulin R Med) 0 units SC Q6H MARYANN PRN Reason: Protocol Last Admin: 04/15/17 04:31 Dose: Not Given Ondansetron HCl (Zofran Inj) 4 mg IVP Q6H PRN PRN Reason: Nausea/Vomiting Last Admin: 04/15/17 01:49 Dose: 4 mg Pantoprazole Sodium (Protonix Inj) 40 mg IVP Q12 [facility] Physical Exam - Constitutional Appears: Non-toxic, No Acute Distress - Head Exam Head Exam: ATRAUMATIC, NORMOCEPHALIC - Eye Exam Eye Exam: EOMI, PERRL Pupil Exam: PERRL. absent: Miosis, Mydriatic - ENT Exam ENT Exam: Mucous Membranes Moist, Normal Oropharynx - Neck Exam Neck exam: Positive for: Full Rom, Normal Inspection - Respiratory Exam Respiratory Exam: Clear to Auscultation Bilateral. absent: Rales, Rhonchi, Wheezes - Cardiovascular Exam Cardiovascular Exam: RRR, +S1, +S2. absent: Gallop, Rubs - GI/Abdominal Exam GI & Abdominal Exam: Normal Bowel Sounds, Soft. absent: Distended, Guarding, Organomegaly, Rebound, Rigid, Tenderness - Rectal Exam Rectal Exam: absent: Black Stool, Bloody Stool, Fecal Impaction Additional comments: light brown stool in rectal vault - Extremities Exam Extremities exam: Positive for: normal inspection. Negative for: pedal edema - Neurological Exam Neurological exam: Alert - Psychiatric Exam Psychiatric exam: Normal Affect, Normal Mood - Skin Skin Exam: Dry, Intact, Normal Color, Warm Results - Vital Signs Recent Vital Signs: Last Vital Signs Temp 98.3 F 04/15/17 08:00 Pulse 100 H 04/15/17 08:44 Resp 23 04/15/17 08:44 BP 128/85 04/15/17 06:00 Pulse Ox 98 04/15/17 06:20 - Labs Result Diagrams: 04/15/17 05:30 04/15/17 05:30 Labs: Laboratory Results - last 24 hr 04/14/17 04/15/17 04/15/17 23:31 01:00 01:00 WBC RBC Hgb Hct MCV MCH MCHC RDW Plt Count MPV Gran % Lymph % (Auto) Cook % (Auto) Eos % (Auto) Baso % (Auto) Gran # Lymph # Cook # Eos # Baso # pO2 29 L VBG pH 7.43 VBG pCO2 37.0 L VBG HCO3 24.6 VBG Total CO2 25.7 VBG O2 Sat (Calc) 62.6 VBG Base Excess 0.5 VBG Potassium 4.2 Sodium 137.0 Chloride 100.0 Glucose 243 H Lactate 2.9 H FiO2 21.0 Potassium Carbon Dioxide Anion Gap BUN Creatinine Est GFR ( Amer) Est GFR (Non-Af Amer) POC Glucose (mg/dL) 276 H Random Glucose Calcium Total Bilirubin AST ALT Alkaline Phosphatase Troponin I 0.32 H* D Total Protein Albumin Globulin Albumin/Globulin Ratio Amylase Lipase Venous Blood Potassium 4.2 04/15/17 04/15/17 04/15/17 05:30 05:30 08:21 WBC 10.3 D RBC 4.12 Hgb 11.1 L Hct 34.1 L MCV 82.8 MCH 26.9 MCHC 32.6 RDW 16.6 H Plt Count 210 MPV 11.4 H Gran % 89.5 H Lymph % (Auto) 4.0 L Cook % (Auto) 6.3 H Eos % (Auto) 0.1 L Baso % (Auto) 0.1 Gran # 9.21 H Lymph # 0.4 L Cook # 0.7 H Eos # 0.0 Baso # 0.01 pO2 VBG pH VBG pCO2 VBG HCO3 VBG Total CO2 VBG O2 Sat (Calc) VBG Base Excess VBG Potassium Sodium 139 Chloride 100 Glucose Lactate FiO2 Potassium 3.9 Carbon Dioxide 25 Anion Gap 18 BUN 23 H Creatinine 5.3 H Est GFR ( Amer) 14 Est GFR (Non-Af Amer) 11 POC Glucose (mg/dL) Random Glucose 157 H Calcium 8.0 L Total Bilirubin 0.6 AST 26 ALT 29 Alkaline Phosphatase 97 Troponin I 0.33 H* Total Protein 6.3 Albumin 3.5 Globulin 2.8 Albumin/Globulin Ratio 1.3 Amylase < 30 L Lipase 43 Venous Blood Potassium Assessment & Plan - Assessment and Plan (Free Text) Assessment: 56 year old male with history of Diabetes, Hypertension, CAD complicated by three prior MIs s/p cardiac stents and CABG (5 years ago), CVA, recent rhabdomyolysis acute renal failure (2 weeks ago) with history of CKD on HD MWF presenting with dark emesis. Active treatment of concern for perm-cath infection and GI consultation for possible upper GI bleed. No prior EGD or colonoscopy. Plan: >H/H stable >no overt signs of GI blood loss >rectal exam- light brown stool >monitor H/H >continue PPI daily >okay to trial clear liquid diet from GI standpoint >primary team managing- Perm-cath infection >plan for elective endoscopic evaluation -EGD/colonoscopy once medically optimized >follow up with Dr Becerril in two weeks <Gonzalo Becerril MD - Last Filed: 04/15/17 18:32> Meds - Medications Medications: Current Medications Sodium Chloride (Sodium Chloride 0.9%) 1,000 mls @ 100 mls/hr IV .Q10H MARYANN Last Admin: 04/15/17 17:28 Dose: 100 mls/hr Meropenem 500 mg/ Sodium (Chloride) 100 mls @ 100 mls/hr IVPB Q12 MARYANN PRN Reason: Protocol Stop: 04/21/17 23:46 Last Admin: 04/15/17 00:47 Dose: 100 mls/hr Insulin Detemir (Levemir) 20 unit SC HS [facility] Last Admin: 04/14/17 23:37 Dose: 20 unit Insulin Human Regular (Humulin R Med) 0 units SC Q6H MARYANN PRN Reason: Protocol Last Admin: 04/15/17 17:15 Dose: Not Given Metoprolol Tartrate (Lopressor) 50 mg PO BID [facility] Last Admin: 04/15/17 17:21 Dose: 50 mg Nitroglycerin (Nitro-Bid 2% Oint) 1 ea TOP Q6 [facility] Last Admin: 04/15/17 17:21 Dose: 1 ea Ondansetron HCl (Zofran Inj) 4 mg IVP Q6H PRN PRN Reason: Nausea/Vomiting Last Admin: 04/15/17 01:49 Dose: 4 mg Pantoprazole Sodium (Protonix Inj) 40 mg IVP Q12 [facility] Last Admin: 04/15/17 10:02 Dose: 40 mg Results - Vital Signs Recent Vital Signs: Last Vital Signs Temp 98.1 F 04/15/17 16:00 Pulse 87 04/15/17 17:21 Resp 5 L 04/15/17 10:45 BP 168/62 H 04/15/17 17:21 Pulse Ox 98 04/15/17 06:20 - Labs Result Diagrams: 04/15/17 13:20 04/15/17 05:30 Labs: Laboratory Results - last 24 hr 04/14/17 04/15/17 04/15/17 23:31 01:00 01:00 WBC RBC Hgb Hct MCV MCH MCHC RDW Plt Count MPV Gran % Lymph % (Auto) Cook % (Auto) Eos % (Auto) Baso % (Auto) Gran # Lymph # Cook # Eos # Baso # pO2 29 L VBG pH 7.43 VBG pCO2 37.0 L VBG HCO3 24.6 VBG Total CO2 25.7 VBG O2 Sat (Calc) 62.6 VBG Base Excess 0.5 VBG Potassium 4.2 Sodium 137.0 Chloride 100.0 Glucose 243 H Lactate 2.9 H FiO2 21.0 Potassium Carbon Dioxide Anion Gap BUN Creatinine Est GFR ( Amer) Est GFR (Non-Af Amer) POC Glucose (mg/dL) 276 H Random Glucose Calcium Total Bilirubin AST ALT Alkaline Phosphatase Lactate Dehydrogenase Total Creatine Kinase Troponin I 0.32 H* D Total Protein Albumin Globulin Albumin/Globulin Ratio Amylase Lipase Procalcitonin Venous Blood Potassium 4.2 04/15/17 04/15/17 04/15/17 05:30 05:30 05:30 WBC 10.3 D RBC 4.12 Hgb 11.1 L Hct 34.1 L MCV 82.8 MCH 26.9 MCHC 32.6 RDW 16.6 H Plt Count 210 MPV 11.4 H Gran % 89.5 H Lymph % (Auto) 4.0 L Cook % (Auto) 6.3 H Eos % (Auto) 0.1 L Baso % (Auto) 0.1 Gran # 9.21 H Lymph # 0.4 L Cook # 0.7 H Eos # 0.0 Baso # 0.01 pO2 VBG pH VBG pCO2 VBG HCO3 VBG Total CO2 VBG O2 Sat (Calc) VBG Base Excess VBG Potassium Sodium 139 Chloride 100 Glucose Lactate FiO2 Potassium 3.9 Carbon Dioxide 25 Anion Gap 18 BUN 23 H Creatinine 5.3 H Est GFR ( Amer) 14 Est GFR (Non-Af Amer) 11 POC Glucose (mg/dL) Random Glucose 157 H Calcium 8.0 L Total Bilirubin 0.6 AST 26 ALT 29 Alkaline Phosphatase 97 Lactate Dehydrogenase Total Creatine Kinase Troponin I Total Protein 6.3 Albumin 3.5 Globulin 2.8 Albumin/Globulin Ratio 1.3 Amylase Lipase Procalcitonin 10.05 H Venous Blood Potassium 04/15/17 04/15/17 04/15/17 08:21 13:20 13:20 WBC 7.1 D RBC 3.90 Hgb 10.3 L Hct 32.1 L MCV 82.3 MCH 26.4 MCHC 32.1 RDW 16.1 H Plt Count 177 MPV 10.1 Gran % Lymph % (Auto) Cook % (Auto) Eos % (Auto) Baso % (Auto) Gran # Lymph # Cook # Eos # Baso # pO2 VBG pH VBG pCO2 VBG HCO3 VBG Total CO2 VBG O2 Sat (Calc) VBG Base Excess VBG Potassium Sodium Chloride Glucose Lactate FiO2 Potassium Carbon Dioxide Anion Gap BUN Creatinine Est GFR ( Amer) Est GFR (Non-Af Amer) POC Glucose (mg/dL) Random Glucose Calcium Total Bilirubin AST ALT Alkaline Phosphatase Lactate Dehydrogenase 541 Total Creatine Kinase 134 Troponin I 0.33 H* 0.25 H* D Total Protein Albumin Globulin Albumin/Globulin Ratio Amylase < 30 L Lipase 43 Procalcitonin Venous Blood Potassium Attending/Attestation - Attestation I have personally seen and examined this patient.: Yes I have fully participated in the care of the patient.: Yes I have reviewed all pertinent clinical information: Yes Notes (Text): 04/15/17 18:30 Patient seenw ith GI fellow. This is a 56 year old male with history of Diabetes , Hypertension, CAD complicated by three prior MIs s/p cardiac stents and CABG ( 5 years ago), CVA, recent rhabdomyolysis acute renal failure (2 weeks ago) with history of CKD on HD MWF presenting with dark emesis. Active treatment of concern for perm-cath infection. GI consultation for possible upper GI bleed. No prior EGD or colonoscopy. No s/s of overt bleeding with stable H/Hct. Green bilious regurgitation at bedside. No urgent indication for endoscopy. Will benefit with outpatient EGD/ colonoscopy. Start clear liquid diet. Treat infection as per primary team. Thank you for letting us participate in the care of your patient
--- NOTE | 2017-04-15 10:19 | RAD ---
HISTORY: gi bleed COMPARISON: 04/10/2017 FINDINGS: LUNGS: No active pulmonary disease. PLEURA: No significant pleural effusion identified, no pneumothorax apparent. CARDIOVASCULAR: Status post CABG. Right tunneled central venous dialysis catheter. OSSEOUS STRUCTURES: No significant abnormalities. VISUALIZED UPPER ABDOMEN: Normal. OTHER FINDINGS: None. IMPRESSION: No active disease.
--- NOTE | 2017-04-15 11:39 | PN ---
DATE: 04/15/2017 MOVIE PRODUCER NOTE SUBJECTIVE: The patient is resting in bed, no respiratory distress at this time. He does not complain of any nauseousness or vomiting and no diarrhea, and his abdominal pain he states has resolved. No obvious fever or chills. PHYSICAL EXAMINATION VITAL SIGNS: He was noted to be afebrile with a pulse of 102, respirations of 18, and BP is 128/85. SKIN: Warm and dry. HEENT: Head is atraumatic and normocephalic. Eyes are reactive to light. Ears, nose, and throat seemed to be within normal limits. NECK: Supple. No JVD. No thyroid enlargement. No lymph nodes. CARDIOPULMONARY: Heart has regular rate and rhythm. Normal S1 and S2 with mildly tachycardia. LUNGS: Reveal good breath sounds bilaterally. ABDOMEN: Soft. No organomegaly noted. No significant tenderness to palpation. GENITALIA AND RECTAL: Deferred. MUSCULOSKELETAL: No joint deformities. EXTREMITIES: Reveal no significant lower extremity edema. NEUROLOGIC: He seems to be grossly intact. LABORATORY DATA: White count is 10.3, hemoglobin is 11.1, and hematocrit is 34.1 with platelets of 210,000. His venous blood gas revealed pH of 7.43,pO2 of 29, and pCO2 of 37. Sodium is 139,potassium is 3.9, chloride is 100, CO2 of 25 with BUN of 23 and creatinine of 5.3. I note that the patient's troponins have increased to 0.32. IMPRESSION: This patient presented with vomiting and nauseousness with questionable gastrointestinal bleed. He has history of end-stage renal disease on hemodialysis, hypertension and diabetes, as well as peripheral vascular disease. The patient presented with a temperature and also abdominal pain, nauseousness,and vomiting. We must also rule out pancreatitis, also noted with temperature, there may be some infection around the dialysis catheter, so it could be associated a line sepsis as well. The patient did have significant abdominal pain and we will rule out pancreatitis. PLAN: As far as our plan,we will continue with antibiotics of meropenem and continue with the Protonix and IV fluids. The patient is on Zofran for any nauseousness and we will follow labs and correct as needed. The patient also will get ID consult, GI consult, and cardiac consult as well as renal consult. Ziggy Espitia MD
--- NOTE | 2017-04-15 11:54 | CP.PCM.PN ---
<JIMMIE TYLER - Last Filed: 04/15/17 11:49> Subjective - Date & Time of Evaluation Date of Evaluation: 04/15/17 Time of Evaluation: 11:50 - Subjective Subjective: MEDICINE PROGRESS NOTE: Pt seen and examined at bedside. Pt had no new complaints. He does report one event overnight where he became restless with abdominal pain but was given ativan and this relieved his discomfort. Pt endorses having pain associated with his cather insertion site on the R chest wall. Pt currently denies any headache, dizziness, fever, chills, shortness of breath, chest pain, abdominal pain, N/V, hematemesis, hematochezia, diarrhea or any urinary symptoms. Objective - Vital Signs/Intake and Output Vital Signs (last 24 hours): Temp Pulse Resp BP Pulse Ox 98.3 F 92 H 5 L 128/85 98 04/15/17 08:00 04/15/17 10:45 04/15/17 10:45 04/15/17 06:00 04/15/17 06:20 Intake and Output: 04/15/17 04/15/17 06:59 18:59 Intake Total 1050 Output Total 0 Balance 1050 - Medications Medications: Current Medications Sodium Chloride (Sodium Chloride 0.9%) 1,000 mls @ 100 mls/hr IV .Q10H MARYANN Last Admin: 04/15/17 00:51 Dose: 100 mls/hr Meropenem 500 mg/ Sodium (Chloride) 100 mls @ 100 mls/hr IVPB Q12 MARYANN PRN Reason: Protocol Stop: 04/21/17 23:46 Last Admin: 04/15/17 00:47 Dose: 100 mls/hr Insulin Detemir (Levemir) 20 unit SC HS [facility] Last Admin: 04/14/17 23:37 Dose: 20 unit Insulin Human Regular (Humulin R Med) 0 units SC Q6H MARYANN PRN Reason: Protocol Last Admin: 04/15/17 10:03 Dose: Not Given Ondansetron HCl (Zofran Inj) 4 mg IVP Q6H PRN PRN Reason: Nausea/Vomiting Last Admin: 04/15/17 01:49 Dose: 4 mg Pantoprazole Sodium (Protonix Inj) 40 mg IVP Q12 MARYANN Last Admin: 04/15/17 10:02 Dose: 40 mg - Labs Labs: 04/15/17 05:30 04/15/17 05:30 PT 11.8 Seconds (9.9-11.8) 04/14/17 20:06 INR 1.09 (0.93-1.08) H 04/14/17 20:06 APTT 29.1 Seconds (23.7-30.8) 04/14/17 20:06 - Constitutional Appears: Non-toxic, No Acute Distress - Head Exam Head Exam: ATRAUMATIC, NORMOCEPHALIC - Eye Exam Eye Exam: EOMI, Normal appearance, PERRL - ENT Exam ENT Exam: Mucous Membranes Moist, Normal Exam - Neck Exam Neck Exam: Full ROM, Normal Inspection. absent: Lymphadenopathy - Respiratory Exam Respiratory Exam: Clear to Ausculation Bilateral, NORMAL BREATHING PATTERN. absent: Rales, Rhonchi, Wheezes, Respiratory Distress Additional comments: R permacath insertion site dressing clean dry and intact and with TTP - Cardiovascular Exam Cardiovascular Exam: REGULAR RHYTHM, RRR, +S1, +S2. absent: Tachycardia - GI/Abdominal Exam GI & Abdominal Exam: Soft, Normal Bowel Sounds. absent: Distended, Firm, Guarding, Rigid, Tenderness - Rectal Exam Rectal Exam: absent: Black Stool, Bloody Stool, Fecal Impaction Additional comments: light brown stool in rectal vault; rectal exam per GI - Exam Exam: absent: Bladder Distension - Extremities Exam Extremities Exam: absent: Calf Tenderness, Pedal Edema Additional comments: Digits missing from RLE - Back Exam Back Exam: absent: CVA tenderness (L), CVA tenderness (R) - Neurological Exam Neurological Exam: Alert, Awake, Oriented x3 - Psychiatric Exam Psychiatric exam: Normal Affect, Normal Mood - Skin Skin Exam: Dry, Intact, Normal Color, Warm Assessment and Plan - Assessment and Plan (Free Text) Assessment: 56 year old male with history of Diabetes, Hypertension, CAD complicated by three prior MIs s/p cardiac stents and CABG (5 years ago), CVA, recent rhabdomyolysis acute renal failure (2 weeks ago) with history of CKD on HD MWF who presented with dark emesis. Currently being treated for perm-cath infection and possible upper GI bleed. Plan: 1. Hematemesis -CT Abdomen/Pelvis showed mild colitis -H/H stable since admission with no overt signs of GI blood loss, per GI -continue protonix 40mg IVP Q12H -continue zofran PRN for N/V -IVF: Normal Saline at 100mls/hr -clear Liquid Diet started and will advance as tolerated -continue to monitor H/H with daily CBC's -plan for elective EGD/colonoscopy once medically optimized, per GI -will follow up with Dr. Becerril upon discharge -GI consulted, appreciate all recommendations 2. Right Lower Lobe Pneumonia -chest xray in ED showed right lower lobe opacity -was febrile with leukocytosis of 13 on admission -currently afebrile with WBC wnl -continue merrem, per ID -chest CT pending -blood and sputum cultures pending -procal pending -ID consulted, all recommendations appreciated 3. Perm-Cath Insertion Site Infection -was noted to have purulent discharge from perm-cath insertion site -was febrile with leukocytosis of 13 on admission -currently afebrile with WBC wnl -continue merrem, per ID -blood and MRSA cultures pending -procal pending -will assess for catheter replacement with IR consultation -IR and ID consulted, all recommendations appreciated 4. ESRD recently placed on HD -HD received MWF -will continue to monitor electrolytes with daily CMP -Nephrology consulted, all recommendations appreciated 5. CAD s/p VT with stent placement less than one year ago -EKG shows NRS, septal infarct & inferior infarct of indeterminate age -serial troponins elevated from 0.11 to 0.32 and then to 0.33 -home antiplatelets held in setting of hematemesis -cardiology consulted, all recommendations appreciated 6. DM2 -Humulin SSI-Medium -Levemir 20u SC HS -Fingersticks ACHS 7. GI/DVT Prophylaxis -protonix/scd's Patient and case discussed with attending, Dr. Mraty Muir <Marty Muir - Last Filed: 04/17/17 17:28> Objective - Vital Signs/Intake and Output Vital Signs (last 24 hours): Temp Pulse Resp BP Pulse Ox 97.7 F 55 L 20 127/60 96 04/17/17 08:00 04/17/17 11:32 04/17/17 08:00 04/17/17 11:32 04/15/17 20:00 Intake and Output: 04/17/17 04/17/17 06:59 18:59 Intake Total 460 Output Total 200 Balance 260 - Medications Medications: Current Medications Amlodipine Besylate (Norvasc) 10 mg PO DAILY [facility] Last Admin: 04/17/17 11:32 Dose: Not Given Atorvastatin Calcium (Lipitor) 40 mg PO HS [facility] Last Admin: 04/16/17 21:42 Dose: 40 mg Clonidine HCl (Catapres) 0.1 mg PO TID [facility] Cyanocobalamin (Vitamin B12 1000 Mcg Tab) 1,000 mcg PO DAILY [facility] Darbepoetin Jabari (Aranesp) 60 mcg IVP ONCE ONE Stop: 04/19/17 06:01 Diphenhydramine HCl (Benadryl) 50 mg PO HS PRN PRN Reason: Insomnia Last Admin: 04/17/17 00:51 Dose: 50 mg Doxercalciferol (Hectorol) 1 mcg IV MWF [facility] Cefazolin Sodium 2 gm/ Sodium (Chloride) 100 mls @ 200 mls/hr IVPB Q12 [facility] PRN Reason: Protocol Insulin Detemir (Levemir) 20 unit SC HS [facility] Last Admin: 04/16/17 22:49 Dose: 20 unit Insulin Human Regular (Humulin R Med) 0 units SC ACHS [facility] PRN Reason: Protocol Last Admin: 04/17/17 07:38 Dose: Not Given Isosorbide Mononitrate (Imdur) 30 mg PO DAILY [facility] Losartan Potassium (Cozaar) 100 mg PO DAILY [facility] Last Admin: 04/17/17 11:32 Dose: Not Given Metoprolol Tartrate (Lopressor) 25 mg PO BID [facility] Nitroglycerin (Nitro-Bid 2% Oint) 1 ea TOP Q6 [facility] Stop: 04/17/17 23:59 Last Admin: 04/17/17 06:19 Dose: 1 ea Ondansetron HCl (Zofran Inj) 4 mg IVP Q6H PRN PRN Reason: Nausea/Vomiting Last Admin: 04/15/17 21:00 Dose: 4 mg Pantoprazole Sodium (Protonix Inj) 40 mg IVP Q12 [facility] Last Admin: 04/17/17 09:45 Dose: 40 mg Vancomycin HCl (Vancocin 25 Mg/Ml (Oral Use)) 125 mg PO QID [facility] PRN Reason: Protocol Vitamin B Complex/Vit C/Folic Acid (Nephro-Eleni) 1 tab PO 0800 [facility] - Labs Labs: 04/17/17 05:40 04/17/17 05:40 PT 11.8 Seconds (9.9-11.8) 04/14/17 20:06 INR 1.09 (0.93-1.08) H 04/14/17 20:06 APTT 29.1 Seconds (23.7-30.8) 04/14/17 20:06 Attending/Attestation - Attestation I have personally seen and examined this patient.: Yes I have fully participated in the care of the patient.: Yes I have reviewed all pertinent clinical information, including history, physical exam and plan: Yes Notes (Text): I have seen and examined patient with medical laboratory assistant. Agree with the above note with the following additions/ exceptions: Briefly this is 56 year old male with a past medical history significant for hypertension, DM-2, CAD S/P CABG and stents , ESRD was recently started on on hemodialysis, Marijuana abuse who was admitted for transient episode of hematemesis. GI consult appreciated. Patient was started on clear liquid diet and protonix with outpatient EGD and colonoscopy. He also was found to have HCAP on meropenem. There is suspected HD catheter infection. Discussed with IR Dr Caio Rubio. All cultures pending at this time. He also had elevated troponins. EKG showed some changes in septal and inferior leads. Will follow serial cardiac enzymes. Discussed with Dr Mcdermott. Management plan was discussed in detail with patient. Upon discharge patient will follow up with Dr Ward. Dr Marty Muir
[2017-04-15] MEDS: Nitroglycerin 2% Ointment Foilpak UD TOP SCH ×2 (13:08→17:21)
[2017-04-15 13:24] LABS: HEMATOCRIT 32.1 % (42.0-52.0); MEAN CELL VOLUME 82.3 fl (80.0-105.0); MEAN CORPUSCULAR HEMOGLOBIN 26.4 pg (25.0-35.0); MEAN CORPUSCULAR HGB CONC 32.1 g/dl (31.0-37.0); MEAN PLATELET VOLUME 10.1 fl (7.0-11.0); RED CELL DISTRIBUTION WIDTH 16.1 % (11.5-14.5); WHITE BLOOD COUNT 7.1 10^3/ul (4.5-11.0)
--- NOTE | 2017-04-15 13:27 | CARD ---
APPROVED REPORT EKG Measurement Heart [id number] ID [id number] <Conclusion> Sinus tachycardia Possible Left atrial enlargement Inferior infarct, possibly Recent When compared from ECG dt. 04/09/2017.....Significant improvement in ST T changes from previous ECG Abnormal ECG
[2017-04-15 14:02] LABS: TROPONIN I 0.25 ng/mL
[2017-04-15 22:34] LABS: TROPONIN I 0.16 ng/mL
[2017-04-15] MEDS: Insulin Detemir 100 units/ml Vial (Levemir) SC SCH (23:00)
--- NOTE | 2017-04-15 23:47 | CON ---
DATE: 04/15/2017 The patient seen in the ICU in 128, bed 1. CHIEF COMPLAINT: GI bleed x1 day duration. HISTORY OF PRESENT ILLNESS: A 56-year-old male with end-stage renal disease on hemodialysis, hypertension, coronary artery disease, myocardial infarction, history of diabetes mellitus, cerebrovascular accident, peripheral neuropathy, history of ESBL Klebsiella, urinary tract infection in 2012, who was admitted through the emergency room to the ICU with a diagnosis of GI bleed. The patient had a temperature of 100.9. Infectious disease consultation requested. REVIEW OF SYSTEMS: Reveals, the patient has had no abdominal pain. He did vomit blood. He has minimal cough. No chest pain or headaches or blurred vision. No dysuria or frequency. PAST MEDICAL HISTORY: Significant for end-stage renal disease, on hemodialysis, hypertension, coronary artery disease, myocardial infarction, diabetes mellitus, cerebrovascular accident, peripheral neuropathy, history of ESBL Klebsiella in the urine in 2012. PAST SURGICAL HISTORY: Significant for right chest catheter recently placed in with history of right toe amputation and history of coronary artery bypass graft on 12/26/2012. ALLERGIES: THE PATIENT IS ALLERGIC MORPHINE AND SEA FOOD, TYPE OF ALLERGY IS NOT ENTIRELY CLEAR. MEDICATIONS: At home include hydralazine which is Apresoline, Catapres, Norvasc, omeprazole, insulin, Plavix, Lipitor and aspirin. PHYSICAL EXAMINATION GENERAL: The patient is in bed, in no acute distress. He is answering questions appropriately. VITAL SIGNS: Temperature of 98, T-Max is 101.9 and heart rate 100 and respiratory rate of 23, blood pressure is 128/80. HEENT: Unremarkable. NECK: Supple. LUNGS: Decreased breath sounds. HEART: Normal S1 and S2. ABDOMEN: Soft, nontender. No organomegaly. No rebound. No guarding. No masses. LABORATORY DATA: [place] [address], hemoglobin of 12, platelets of 277. There is 91% granulocytosis and coagulation is noted. Blood gasses are noted. The patient's BUN of 23, creatinine of 5.3, and troponins are elevated 0.3. The patient's EKG results are not available and chest x-ray results is not available. CAT scan of the abdomen and pelvis is reported to be negative. History and physical examination is reviewed and written by Dr. Darian Mcnamara Dr. consultation is also reviewed. ASSESSMENT AND PLAN: This is a 56-year-old male with end-stage renal disease on hemodialysis, hypertension, coronary artery disease, myocardial infarction, diabetes mellitus, cerebrovascular accident, peripheral neuropathy, history of extended spectrum beta lactamase Escherichia coli, history of extended spectrum beta lactamase Klebsiella in the urine in 2012, now presenting with fevers, gastrointestinal bleed, leukocytosis, tachycardia, and dyspnea. 1. Systemic inflammatory response syndrome, must rule out bacteremia from the dialysis cath and must also rule out sepsis either from bacteremia and/or healthcare-associated pneumonia in phase of gastrointestinal bleed. We will treat the patient with vancomycin, meropenem since there is a history of ESBL from 2012 pending blood cultures, urine cultures, sputum cultures, chest x-ray results. EKG results are pending and procalcitonin results are pending and we will order a vancomycin, meropenem. Pending initial workup results. We will make further recommendations. Boyd Green MD
[2017-04-16] MEDS: Nitroglycerin 2% Ointment Foilpak UD TOP SCH ×5 (00:22→23:01)
[2017-04-16] MEDS: Insulin Reg-MEDIUM-Coverage SC SCH ×4 (05:00→22:47)
--- NOTE | 2017-04-16 05:17 | CON ---
DATE: 04/15/2017 REASON FOR CONSULTATION: Positive troponin; sepsis; coronary artery disease; CABG; PTCA in the past and end-stage renal disease, started on dialysis a week. BRIEF CLINICAL HISTORY: A 56-year-old male with past medical history significant for end-stage renal disease, on dialysis started a week; coronary artery disease; hypertension; [place] in the past; type 2 diabetes; peripheral neuropathy, status post amputation of the right toe; history of CVA; history of PTCA in the past 5-6 years ago; being followed by Dr. Phoenix, lost followup; history of CABG [address] Shant Brooke, [facility]; admitted with GI bleed and generalized weakness. The patient was recently discharged 2 days ago; however, the patient is admitted for GI bleed and troponin is positive and it was decided to treat medically. The patient denies any chest pain, shortness of breath, or any palpitations, but troponin is positive. Cardiology consult was called. PAST MEDICAL HISTORY: Past history is significant for end-stage and dialysis started a week ago, coronary artery disease, hypertension, [place], type 2 diabetes, peripheral neuropathy, history of fall, history of CVA, history of stent prior to CABG, history of CABG 5 years ago in [address] Shant Brooke at [facility], history of left hip surgery, left knee surgery. PAST SURGICAL HISTORY: Significant for coronary artery disease, CABG 5 years ago, history of hip surgery, history of lip surgery, and history of amputation of right forefoot. ALLERGIES: ALLERGY TO MORPHINE AND SEA FOOD. SOCIAL HISTORY: He denies any history of alcohol abuse. Lives in [place] by himself and a friend helps him, walks with a walker, mostly bed bound. CURRENT MEDICATIONS: The patient at home was taking hydralazine, clonidine, amlodipine, vitamins, omeprazole, losartan, insulin, clopidogrel, aspirin, and Plavix. RECENT CARDIAC WORKUP FOLLOWS: The patient had echocardiography done on 03/27/2017, read by Dr. Matthews that showed left ventricular size normal hypertrophy, LV function is low normal, ejection fraction of 50%, mitral regurgitation is trace, trace tricuspid regurgitation, RV systolic pressure 23. Prior to that, the patient had echo on 04/05/2016, asymmetrical septal hypertrophy, left ventricular ejection fraction, borderline normal grade 1 diastolic dysfunction, mitral valve thickened, no pulmonary hypertension, RV systolic pressure 19. REVIEW OF SYSTEMS: As per HPI. PHYSICAL EXAMINATION: VITAL SIGNS: Temperature afebrile, heart rate 92, and blood pressure 140/82. HEENT: PERRLA. Extraocular muscles intact. NECK: Supple. No carotid bruits or thyromegaly. CHEST: Clear to auscultation. HEART: S1 and S2 regular. ABDOMEN: Soft. EXTREMITIES: Clubbing and cyanosis negative. LABORATORY DATA: EKG shows normal sinus. Blood workup as follows: WBC 10.3, hemoglobin 11.8, hematocrit 34.1, and platelet count 210. Chemistry showed sodium 139, potassium 3.9, chloride 100, carbon dioxide 25, anion gap of 18, BUN 23, creatinine 5.3. Troponin 0.32, 0.33. IMPRESSION: History of end-stage renal disease, on dialysis; admitted due to gastrointestinal bleed; diabetes; hypertension; hyperlipidemia; obesity; peripheral arterial disease, status post amputation; history of CABG five years ago, very noncompliance with the medications; positive troponin most likely secondary to end-stage renal disease, hemodynamic instability, but needs to rule out [id number] myocardial infarction; history of CABG five years ago; history of PTCA in the past. Echo showed preserved LV function on last admission, trace MR. The patient admitted with a gastrointestinal bleed, not a candidate to go to the catheterization lab. RECOMMENDATION: We will monitor troponin trend. If the troponin trend keep increasing, then consider cardiac. Otherwise, we will try to treat medically. The patient needs to be compliant with medications. Since the patient has active GI bleeding, not a candidate to go for a environmental laboratory technician unless it shows the patient active sinus ischemia and infarcting. We will try to treat medically. Not a candidate for anticoagulation, aspirin or Plavix. We will give the beta anjelica and nitrates and monitor closely, and we will follow with you. Continue dialysis and if the blood pressure allows, we will resume nitrates and beta anjelica, aggressive medical treatment for now without any anticoagulation, without any aspirin or Plavix. We will follow up with you. Monitor troponin trend. Thank you Dr. Muir for providing the opportunity in taking care of the patient. Corey Mcdermott MD
[2017-04-16 05:57] LABS: BASO # 0.02 K/mm3 (0.0-2.0); BASO % 0.4 % (0.0-3.0); EOS # 0.1 (0.0-0.7); EOS % 2.7 % (1.5-5.0); GRAN # 2.48 (1.4-6.5); LYMPH # 1.3 (1.2-3.4); LYMPH % 29.7 % (22.0-35.0); MEAN CELL VOLUME 83.1 fl (80.0-105.0); MEAN CORPUSCULAR HEMOGLOBIN 26.8 pg (25.0-35.0); MEAN CORPUSCULAR HGB CONC 32.2 g/dl (31.0-37.0); MEAN PLATELET VOLUME 10.3 fl (7.0-11.0); MONO # 0.6 (0.1-0.6); MONO % 12.2 % (1.0-6.0); RED CELL DISTRIBUTION WIDTH 15.7 % (11.5-14.5); WHITE BLOOD COUNT 4.5 10^3/ul (4.5-11.0)
[2017-04-16 06:00] LABS: ALB/GLOB RATIO 1.2 (1.1-1.8); BILIRUBIN,TOTAL 0.6 mg/dL (0.2-1.3); CALCIUM 7.6 mg/dL (8.4-10.5); MAGNESIUM 1.7 mg/dL (1.7-2.2); PHOSPHOROUS 3.8 mg/dL (2.5-4.5); POTASSIUM 3.8 mmol/L (3.6-5.0); TOTAL PROTEIN 5.5 g/dL (5.8-8.3)
[2017-04-16 06:15] LABS: TROPONIN I 0.12 ng/mL
[2017-04-16] MEDS: Meropenem 500 MG in Sodium Chloride 0.9% 100 ML IVPB SCH ×2 (09:26→21:42)
--- NOTE | 2017-04-16 11:33 | CP.PCM.PN ---
<JIMMIE TYLER - Last Filed: 04/16/17 10:59> Subjective - Date & Time of Evaluation Date of Evaluation: 04/16/17 Time of Evaluation: 10:59 - Subjective Subjective: MEDICINE PROGRESS NOTE: Pt seen and examined at bedside. Pt had no new complaints and states that he "feels much better than yesterday". He continues to endorse pain with his perm- cath insertion site. Pt currently denies any headache, dizziness, fever, chills , shortness of breath, chest pain, abdominal pain, N/V, hematemesis, hematochezia, diarrhea or any urinary symptoms. Objective - Vital Signs/Intake and Output Vital Signs (last 24 hours): Temp Pulse Resp BP Pulse Ox 98.7 F 72 26 H 166/86 H 96 04/16/17 04:00 04/16/17 08:10 04/16/17 08:10 04/16/17 09:37 04/15/17 20:00 Intake and Output: 04/16/17 04/16/17 06:59 18:59 Intake Total 1340 Output Total 0 Balance 1340 - Medications Medications: Current Medications Atorvastatin Calcium (Lipitor) 40 mg PO HS [facility] Clonidine HCl (Catapres) 0.1 mg PO TID [facility] Last Admin: 04/16/17 09:37 Dose: 0.1 mg Meropenem 500 mg/ Sodium (Chloride) 100 mls @ 100 mls/hr IVPB Q12 MARYANN PRN Reason: Protocol Stop: 04/21/17 23:46 Last Admin: 04/16/17 09:26 Dose: 100 mls/hr Insulin Detemir (Levemir) 20 unit SC HS [facility] Last Admin: 04/15/17 23:00 Dose: 20 unit Insulin Human Regular (Humulin R Med) 0 units SC Q6H MARYANN PRN Reason: Protocol Last Admin: 04/16/17 09:25 Dose: Not Given Losartan Potassium (Cozaar) 100 mg PO DAILY [facility] Last Admin: 04/16/17 09:25 Dose: 100 mg Metoprolol Tartrate (Lopressor) 50 mg PO BID [facility] Last Admin: 04/16/17 09:25 Dose: 50 mg Nitroglycerin (Nitro-Bid 2% Oint) 1 ea TOP Q6 [facility] Last Admin: 04/16/17 05:54 Dose: 1 ea Ondansetron HCl (Zofran Inj) 4 mg IVP Q6H PRN PRN Reason: Nausea/Vomiting Last Admin: 04/15/17 21:00 Dose: 4 mg Pantoprazole Sodium (Protonix Inj) 40 mg IVP Q12 MARYANN Last Admin: 04/16/17 09:25 Dose: 40 mg - Labs Labs: 04/16/17 05:30 04/16/17 05:30 PT 11.8 Seconds (9.9-11.8) 04/14/17 20:06 INR 1.09 (0.93-1.08) H 04/14/17 20:06 APTT 29.1 Seconds (23.7-30.8) 04/14/17 20:06 - Constitutional Appears: Non-toxic, No Acute Distress - Head Exam Head Exam: ATRAUMATIC, NORMOCEPHALIC - Eye Exam Eye Exam: EOMI, Normal appearance - ENT Exam ENT Exam: Mucous Membranes Moist, Normal Exam - Neck Exam Neck Exam: Full ROM. absent: Lymphadenopathy - Respiratory Exam Respiratory Exam: Chest Wall Tenderness, Clear to Ausculation Bilateral, NORMAL BREATHING PATTERN. absent: Rales, Rhonchi, Wheezes, Respiratory Distress Additional comments: R perm-cath insertion site dressing clean dry and intact and with TTP - Cardiovascular Exam Cardiovascular Exam: REGULAR RHYTHM, +S1, +S2. absent: Murmur - GI/Abdominal Exam GI & Abdominal Exam: Soft, Normal Bowel Sounds. absent: Distended, Firm, Guarding, Tenderness - Extremities Exam Extremities Exam: Normal Capillary Refill. absent: Calf Tenderness, Pedal Edema Additional comments: All digits missing from RLE - Back Exam Back Exam: NORMAL INSPECTION. absent: CVA tenderness (L), CVA tenderness (R) - Neurological Exam Neurological Exam: Alert, Awake, Oriented x3 - Psychiatric Exam Psychiatric exam: Normal Affect, Normal Mood - Skin Skin Exam: Dry, Intact, Normal Color, Warm Assessment and Plan - Assessment and Plan (Free Text) Assessment: 56 year old male with history of Diabetes, Hypertension, CAD complicated by three prior MIs s/p cardiac stents and CABG (5 years ago), CVA, recent rhabdomyolysis acute renal failure (2 weeks ago) with history of CKD on HD MWF who presented with dark emesis. Currently being treated for perm-cath infection and possible upper GI bleed. Plan: 1. Hematemesis -CT Abdomen/Pelvis showed mild colitis -H/H: 8.7/27.0 (10.3/32.1 on 04/15) -continue protonix 40mg IVP Q12H -continue zofran PRN for N/V -discontinued normal saline at 100mls/hr -continue clear liquid diet started and will advance as tolerated -continue to monitor H/H with daily CBC's -plan for elective EGD/colonoscopy once medically optimized, per GI -will follow up with Dr. Becerril upon discharge -GI consulted, appreciate all recommendations 2. Right Lower Lobe Pneumonia -chest xray in ED showed right lower lobe opacity -was febrile with leukocytosis of 13 on admission -currently afebrile without leukocytosis -continue merrem (day 2), per ID -dialysis blood cultures grew gram negative rods -venous blood cultures negative for 24 hours -procal at 10.5 -chest CT and sputum cultures pending -ID consulted, all recommendations appreciated 3. Perm-Cath Insertion Site Infection -was noted to have purulent discharge from perm-cath insertion site -was febrile with leukocytosis of 13 on admission -currently afebrile with WBC wnl -continue merrem (day 2), per ID -dialysis blood cultures grew gram negative rods -venous blood cultures negative for 24 hours -procal at 10.5 -MRSA cultures pending -will assess need for catheter replacement based on results of catheter cultures -IR and ID consulted, all recommendations appreciated 4. ESRD recently placed on HD -HD received MWF -BUN/CR: 28/6.4, will reassess post dialysis on Monday -will continue to monitor electrolytes with daily CMP -Nephrology consulted, all recommendations appreciated 5. CAD s/p [place] with stent placement less than one year ago -EKG shows NRS, septal infarct & inferior infarct of indeterminate age on admission -serial troponins downtrending, currently at 0.12 -patient not a candidate for anticoagulation/antiplatelet or energy systems laboratory director in setting of acute GI bleed unless EKG shows active sinus ischemia and infarcting , per cardio -continue lipitor 40mg HS, clonidine 0.1mg TID and Cozaar 100mg daily -start lopressor 50mg BID and nitrobid q6 as patient is not hypotensive, per cardiology -cardiology consulted, all recommendations appreciated 6. DM2 -Humulin SSI-Medium -Levemir 20u SC HS -Fingersticks ACHS 7. GI/DVT Prophylaxis -protonix/scd's Patient and case discussed with attending, Dr. Marty Muir <Marty Muir - Last Filed: 04/17/17 17:35> Objective - Vital Signs/Intake and Output Vital Signs (last 24 hours): Temp Pulse Resp BP Pulse Ox 97.7 F 55 L 20 127/60 96 04/17/17 08:00 04/17/17 11:32 04/17/17 08:00 04/17/17 11:32 04/15/17 20:00 Intake and Output: 04/17/17 04/17/17 06:59 18:59 Intake Total 460 Output Total 200 Balance 260 - Medications Medications: Current Medications Amlodipine Besylate (Norvasc) 10 mg PO DAILY [facility] Last Admin: 04/17/17 11:32 Dose: Not Given Atorvastatin Calcium (Lipitor) 40 mg PO HS [facility] Last Admin: 04/16/17 21:42 Dose: 40 mg Clonidine HCl (Catapres) 0.1 mg PO TID [facility] Cyanocobalamin (Vitamin B12 1000 Mcg Tab) 1,000 mcg PO DAILY [facility] Darbepoetin Jabari (Aranesp) 60 mcg IVP ONCE ONE Stop: 04/19/17 06:01 Diphenhydramine HCl (Benadryl) 50 mg PO HS PRN PRN Reason: Insomnia Last Admin: 04/17/17 00:51 Dose: 50 mg Doxercalciferol (Hectorol) 1 mcg IV MWF [facility] Cefazolin Sodium 2 gm/ Sodium (Chloride) 100 mls @ 200 mls/hr IVPB Q12 MARYANN PRN Reason: Protocol Insulin Detemir (Levemir) 20 unit SC HS [facility] Last Admin: 04/16/17 22:49 Dose: 20 unit Insulin Human Regular (Humulin R Med) 0 units SC ACHS MARYANN PRN Reason: Protocol Last Admin: 04/17/17 07:38 Dose: Not Given Isosorbide Mononitrate (Imdur) 30 mg PO DAILY [facility] Losartan Potassium (Cozaar) 100 mg PO DAILY [facility] Last Admin: 04/17/17 11:32 Dose: Not Given Metoprolol Tartrate (Lopressor) 25 mg PO BID [facility] Nitroglycerin (Nitro-Bid 2% Oint) 1 ea TOP Q6 [facility] Stop: 04/17/17 23:59 Last Admin: 04/17/17 06:19 Dose: 1 ea Ondansetron HCl (Zofran Inj) 4 mg IVP Q6H PRN PRN Reason: Nausea/Vomiting Last Admin: 04/15/17 21:00 Dose: 4 mg Pantoprazole Sodium (Protonix Inj) 40 mg IVP Q12 MARYANN Last Admin: 04/17/17 09:45 Dose: 40 mg Vancomycin HCl (Vancocin 25 Mg/Ml (Oral Use)) 125 mg PO QID MARYANN PRN Reason: Protocol Vitamin B Complex/Vit C/Folic Acid (Nephro-Eleni) 1 tab PO 0800 MARYANN - Labs Labs: 04/17/17 05:40 04/17/17 05:40 PT 11.8 Seconds (9.9-11.8) 04/14/17 20:06 INR 1.09 (0.93-1.08) H 04/14/17 20:06 APTT 29.1 Seconds (23.7-30.8) 04/14/17 20:06 Attending/Attestation - Attestation I have personally seen and examined this patient.: Yes I have fully participated in the care of the patient.: Yes I have reviewed all pertinent clinical information, including history, physical exam and plan: Yes Notes (Text): I have seen and examined patient with medical lab scientist. Agree with the above note with the following additions/ exceptions: Briefly this is 56 year old male with a past medical history significant for hypertension, DM-2, CAD S/P CABG and stents , ESRD was recently started on on hemodialysis, Marijuana abuse who was admitted for transient episode of hematemesis. GI consult appreciated. Patient was started on clear liquid diet and protonix with outpatient EGD and colonoscopy. He also was found to have HCAP on meropenem. There is suspected HD catheter infection. Discussed with IR Dr Caio Rubio. Blood culture from HD catheter is growing GNR. Procal elevated. He also had elevated troponins. EKG showed some changes in septal and inferior leads. He will need stress test. Discussed with Dr Mcdermott. Management plan was discussed in detail with patient. Upon discharge patient will follow up with Dr Ward. Dr Marty Muir
--- NOTE | 2017-04-16 12:53 | PN ---
DATE: 04/16/2017 SUBJECTIVE: The patient is resting in bed, no respiratory distress. He has no complaints of nauseousness or vomiting this morning. No diarrhea. No abdominal pain. The patient is hemodynamically stable. PHYSICAL EXAMINATION: VITAL SIGNS: Temperature is 98.7, pulse is 72, respirations are 26, and BP is 140/75. SKIN: Warm and dry. HEENT: Head is atraumatic, normocephalic. Eyes reactive to light. Ears, nose and throat seem to be within normal limits. NECK: Supple. No JVD. No thyroid enlargement. No lymph nodes. HEART: Regular rate and rhythm. Normal S1 and S2. LUNGS: Reveal good breath sounds bilaterally. ABDOMEN: Soft. Decreased bowel sounds. GENITALIA AND RECTAL: Deferred. MUSCULOSKELETAL: No joint deformities. EXTREMITIES: No significant edema. NEUROLOGICALLY: He seems to be grossly intact. LABORATORY DATA: As far as his laboratories are concerned, his white count is 4.5, hemoglobin is 8.7, hematocrit 27 with platelets of 175,000. His sodium is 137, potassium 3.8, chloride 104, CO2 of 23 with a BUN of 28, creatinine of 6.4 and glucose of 129. IMPRESSION: This patient has possible GI bleed and is noted to have anemia. He has a history of end-stage renal disease on hemodialysis, as well as hypertension, diabetes, and peripheral vascular disease. The patient presented with a temp, rule out sepsis, as well as possible pancreatitis. PLAN: We will continue with antibiotics of meropenem and Protonix as well as IV fluids. The patient is on Zofran p.r.n. and we will continue to evaluate the labs closely and follow with the other consultants and the primary care doctor. Ziggy Espitia MD
--- NOTE | 2017-04-16 13:35 | PN ---
DATE: 04/16/2017 SUBJECTIVE: The patient is in bed, no acute distress, appears to be comfortable in bed. No fevers. PHYSICAL EXAMINATION: VITAL SIGNS: Temperature is 98, blood pressure is 160/80, respiratory rate of 18, heart rate is 72. HEENT: Unremarkable. NECK: Supple LUNGS: Decreased breath sounds. HEART: Normal S1, S2. ABDOMEN: Soft, nontender. LABORATORY DATA: Reveals a white count of 4.5, hemoglobin of 8, platelets of 175. Coagulation is noted. Chemistry reveals BUN of 28, creatinine of 6.4. Microbiology reveals a gram-negative yumiko in the blood during dialysis. The other 2 blood cultures revealed no growth. MEDICATIONS: Review of the medication reveals to be the patient on meropenem. CAT scan of the abdomen and pelvis is noted. ASSESSMENT AND PLAN: This is a 56-year-old male with end-stage renal disease, on hemodialysis; hypertension; coronary artery disease; myocardial infarction; diabetes mellitus; cerebrovascular accident; peripheral neuropathy; history of extended-spectrum beta-lactamase Klebsiella urinary tract infection in the past 2012, admitted now with gastrointestinal bleeding, leukocytosis, sepsis with gram-negative yumiko bacteremia, gastrointestinal source versus dialysis catheter as the source versus urine. We will continue the meropenem pending identification sensitivity of the gram-negative yumiko in the blood and I will follow closely with you. Boyd Green MD
--- NOTE | 2017-04-16 14:23 | CP.PCM.CON ---
History of Present Illness - History of Present Illness History of Present Illness: RENAL CONSULT NOTE 56 year old male with Diabetes, Hypertension, CAD S/P and CABG (5 years ago), CVA,[place] on ckd now on hd admitted with hematemesis. On admisison noted to hav sepsis/SIRS syndrome with RLL Pnemonia and possible permacath site infection. blood cultures on dialysis are positive for GNR. Last hd was on monday. Review of Systems - Review of Systems All systems: reviewed and no additional remarkable complaints except Past Patient History - Infectious Disease Hx of Infectious Diseases: None - Tetanus Immunizations Tetanus Immunization: Unknown - Past Medical History & Family History Past Medical History?: Yes - Past Social History Smoking Status: Never Smoked - CARDIAC Hx Cardiac Disorders: Yes (CABG x 3) Hx Hypertension: Yes - PULMONARY Hx Respiratory Disorders: Yes Other/Comment: PULMONARY EDEMA - NEUROLOGICAL HX Cerebrovascular Accident: Yes - HEENT Hx HEENT Problems: Yes (CONTACT LENSES) - RENAL Hx Renal Failure: Yes - ENDOCRINE/METABOLIC Hx Diabetes Mellitus Type 1: Yes - HEMATOLOGICAL/ONCOLOGICAL Hx Blood Disorders: No - INTEGUMENTARY Hx Dermatological Problems: Yes Other/Comment: millicent hernández ext rash, pt stated "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" - MUSCULOSKELETAL/RHEUMATOLOGICAL Hx Musculoskeletal Disorders: No Hx Falls: No Other/Comment: generalized weakness - GASTROINTESTINAL Hx Gastrointestinal Disorders: No - GENITOURINARY/GYNECOLOGICAL Hx Urinary Tract Infection: Yes - PSYCHIATRIC Hx Psychophysiologic Disorder: No Hx Depression: No Hx Emotional Abuse: No Hx Physical Abuse: No Hx Substance Use: Yes (MARIJUANA) - SURGICAL HISTORY Hx Amputation: Yes (R toes) Hx Cardiac Catheterization: Yes (09/09) Hx Coronary Stent: Yes Hx Open Heart Surgery: Yes (12-26-12) - ANESTHESIA Hx Anesthesia: Yes Hx Anesthesia Reactions: No Meds Allergies/Adverse Reactions: Allergies Allergy/AdvReac Type Severity Reaction Status Date / Time morphine Allergy ANAPHYLAXIS Verified 04/08/17 14:04 sea food Allergy Severe ANAPHYLAXIS Uncoded 04/08/17 14:04 - Medications Medications: Current Medications Amlodipine Besylate (Norvasc) 10 mg PO DAILY REPLACED BY [facility] Atorvastatin Calcium (Lipitor) 40 mg PO HS [facility]PL[facility] BY [facility] Clonidine HCl (Catapres) 0.1 mg PO TID [facility] Last Admin: 04/16/17 09:37 Dose: 0.1 mg Meropenem 500 mg/ Sodium (Chloride) 100 mls @ 100 mls/hr IVPB Q12 [facility]PL[facility] PRN Reason: Protocol Stop: 04/21/17 23:46 Last Admin: 04/16/17 09:26 Dose: 100 mls/hr Insulin Detemir (Levemir) 20 unit SC HS [facility]PL[facility] Last Admin: 04/15/17 23:00 Dose: 20 unit Insulin Human Regular (Humulin R Med) 0 units SC Q6H MARYANN PRN Reason: Protocol Last Admin: 04/16/17 09:25 Dose: Not Given Losartan Potassium (Cozaar) 100 mg PO DAILY [facility] Last Admin: 04/16/17 09:25 Dose: 100 mg Metoprolol Tartrate (Lopressor) 50 mg PO BID [facility]PL[facility] Last Admin: 04/16/17 09:25 Dose: 50 mg Nitroglycerin (Nitro-Bid 2% Oint) 1 ea TOP Q6 [facility] Last Admin: 04/16/17 12:26 Dose: 1 ea Ondansetron HCl (Zofran Inj) 4 mg IVP Q6H PRN PRN Reason: Nausea/Vomiting Last Admin: 04/15/17 21:00 Dose: 4 mg Pantoprazole Sodium (Protonix Inj) 40 mg IVP Q12 [facility]PL[facility] Last Admin: 04/16/17 09:25 Dose: 40 mg Physical Exam - Constitutional Appears: Non-toxic, No Acute Distress - Head Exam Head Exam: NORMAL INSPECTION - Eye Exam Eye Exam: Normal appearance - ENT Exam ENT Exam: Mucous Membranes Moist - Respiratory Exam Respiratory Exam: NORMAL BREATHING PATTERN - Cardiovascular Exam Cardiovascular Exam: +S1, +S2 - GI/Abdominal Exam GI & Abdominal Exam: Soft - Extremities Exam Extremities exam: Positive for: normal inspection - Neurological Exam Neurological exam: Alert, Oriented x3 - Skin Skin Exam: Dry, Intact Results - Vital Signs Recent Vital Signs: Last Vital Signs Temp 98 F 04/16/17 08:37 Pulse 75 04/16/17 11:10 Resp 18 04/16/17 10:00 BP 188/94 H 04/16/17 11:10 Pulse Ox 96 04/15/17 20:00 - Labs Result Diagrams: 04/16/17 05:30 04/16/17 05:30 Labs: Laboratory Results - last 24 hr 04/15/17 04/15/17 04/15/17 04:27 09:58 16:29 WBC RBC Hgb Hct MCV MCH MCHC RDW Plt Count MPV Gran % Lymph % (Auto) [place] % (Auto) Eos % (Auto) Baso % (Auto) Gran # Lymph # [place] # Eos # Baso # Sodium Potassium Chloride Carbon Dioxide Anion Gap BUN Creatinine Est GFR ( Amer) Est GFR (Non-Af Amer) POC Glucose (mg/dL) 180 H 145 H 169 H Random Glucose Calcium Phosphorus Magnesium Total Bilirubin AST ALT Alkaline Phosphatase Lactate Dehydrogenase Total Creatine Kinase Troponin I Total Protein Albumin Globulin Albumin/Globulin Ratio Triglycerides Cholesterol LDL Cholesterol Direct HDL Cholesterol TSH 3rd Generation 04/15/17 04/15/17 04/16/17 21:57 22:24 05:30 WBC 4.5 D RBC 3.25 L Hgb 8.7 L Hct 27.0 L MCV 83.1 MCH 26.8 MCHC 32.2 RDW 15.7 H Plt Count 175 MPV 10.3 Gran % 55.0 Lymph % (Auto) 29.7 [place] % (Auto) 12.2 H Eos % (Auto) 2.7 Baso % (Auto) 0.4 Gran # 2.48 Lymph # 1.3 [place] # 0.6 Eos # 0.1 Baso # 0.02 Sodium Potassium Chloride Carbon Dioxide Anion Gap BUN Creatinine Est GFR ( Amer) Est GFR (Non-Af Amer) POC Glucose (mg/dL) 146 H Random Glucose Calcium Phosphorus Magnesium Total Bilirubin AST ALT Alkaline Phosphatase Lactate Dehydrogenase 454 Total Creatine Kinase 110 Troponin I 0.16 H* D Total Protein Albumin Globulin Albumin/Globulin Ratio Triglycerides Cholesterol LDL Cholesterol Direct HDL Cholesterol TSH 3rd Generation 04/16/17 04/16/17 04/16/17 05:30 05:30 06:06 WBC RBC Hgb Hct MCV MCH MCHC RDW Plt Count MPV Gran % Lymph % (Auto) [place] % (Auto) Eos % (Auto) Baso % (Auto) Gran # Lymph # [place] # Eos # Baso # Sodium 137 Potassium 3.8 Chloride 104 Carbon Dioxide 23 Anion Gap 14 BUN 28 H Creatinine 6.4 H Est GFR ( Amer) 11 Est GFR (Non-Af Amer) 9 POC Glucose (mg/dL) 132 H Random Glucose 128 H Calcium 7.6 L Phosphorus 3.8 Magnesium 1.7 Total Bilirubin 0.6 AST 33 ALT 29 Alkaline Phosphatase 75 Lactate Dehydrogenase 491 Total Creatine Kinase 89 Troponin I 0.12 D Total Protein 5.5 L Albumin 3.0 Globulin 2.5 Albumin/Globulin Ratio 1.2 Triglycerides 222 H Cholesterol 121 L LDL Cholesterol Direct 50 HDL Cholesterol 30 TSH 3rd Generation 0.55 04/16/17 04/16/17 08:22 11:33 WBC RBC Hgb Hct MCV MCH MCHC RDW Plt Count MPV Gran % Lymph % (Auto) [place] % (Auto) Eos % (Auto) Baso % (Auto) Gran # Lymph # [place] # Eos # Baso # Sodium Potassium Chloride Carbon Dioxide Anion Gap BUN Creatinine Est GFR ( Amer) Est GFR (Non-Af Amer) POC Glucose (mg/dL) 129 H 206 H Random Glucose Calcium Phosphorus Magnesium Total Bilirubin AST ALT Alkaline Phosphatase Lactate Dehydrogenase Total Creatine Kinase Troponin I Total Protein Albumin Globulin Albumin/Globulin Ratio Triglycerides Cholesterol LDL Cholesterol Direct HDL Cholesterol TSH 3rd Generation Assessment & Plan - Assessment and Plan (Free Text) Plan: esrd/anemia/GI bleed/Sepsis/GNR bacteremia/permacath infection hd mwf, continue per schedule lytes reviewed anemia: GI on board ,epo with hd phos acceptable abx per icu team permacath site reported infected, will assess again tomorrow, will likely need change once cultures clear will continue to follow Thank you for the consult
[2017-04-16] MEDS: Sodium Chloride 0.9% 1,000 ML IV SCH ×2 (19:38→19:39)
[2017-04-16] MEDS: Insulin Detemir 100 units/ml Vial (Levemir) SC SCH (22:49)
--- NOTE | 2017-04-16 22:49 | CON ---
CARDIOLOGY CONSULTATION DATE: 04/16/2017 REASON FOR THE CONSULTATION: Positive troponin, sepsis, coronary artery disease, GI bleed, CABG admitted with GI bleed and generalized weakness. SUBJECTIVE: The patient denies any chest pain. No shortness or any palpitation. PHYSICAL EXAMINATION GENERAL: Lying flat on the bed, much awake and alert and gives all the information regarding previous cardiac workup and cardiac procedure. VITAL SIGNS: Temperature afebrile, heart rate 75, blood pressure 188/94. HEENT: PERRLA. Extraocular muscles intact. NECK: Supple. No carotid bruit. No thyromegaly. CHEST: Clear to auscultation. HEART: S1 and S2 regular. ABDOMEN: Soft.. EXTREMITIES: Clubbing and cyanosis negative.. LABORATORY DATA: Blood workup as follows; WBC 4.8, hemoglobin 8.7, hematocrit 27, platelets are 175. Chemistry showed sodium 137, potassium 3.2, chloride 104, carbon dioxide 23, anion gap of 14, BUN 28, creatinine 6.4, troponin 0.12, maximum troponin 0.33, now trending down. IMPRESSION: A 56-year-old male with past medical history of coronary artery disease status post PTCA 10 years ago in [facility], then the patient had a PTCA at [facility] 7 years with status post 3 vessels bypass coronary artery bypass surgery by Dr. Dony Brooke at [facility], admitted with gastrointestinal bleed. The patient was admitted, discharged two days ago, readmitted again with gastrointestinal bleed. Hemoglobin admitting was 12 and it dropped down to 8.7, complaining of hematemesis. History of end-stage renal disease, dialysis started a week ago. History peripheral artery disease status post amputation. Troponin positive, mostly *------* hemodynamic instability doubt it is non-STEMI, but cannot rule out non-STEMI because of underlying severe coronary artery disease, history of percutaneous transluminal coronary angioplasty 10 years ago at [facility]. Then, the patient had 7 years ago at [facility] and history of coronary artery bypass graft 5 years ago, 3-vessels bypass, history of chronic obstructive pulmonary disease, status post amputation, RECOMMENDATIONS; The patient is not a candidate to go to the label fuser tender because the patient's baseline is dropping H and H, almost dropped *------* from admitting hemoglobin of 12 to 8.7, almost 3 to 4 g drop in hemoglobin without any anticoagulation, not a candidate for anticoagulation, not candidate for aspirin and Plavix at this time. Monitor H and H, remains stable, start first baby aspirin, otherwise continue atorvastatin, Continue beta anjelica. Once the GI issue is resolved completely, bleeding stopped for 3 months, then consider cardiac catheterization with possible angioplasty. Discussed with the patient. The patient agreed, understands risk and benefits. In the interim continue beta anjelica, nitrate and atorvastatin as well as continue losartan for blood pressure. We will give p.r.n. hydralazine also and assess in the next 24 hours then need for antihypertensive medication. We will follow with you. We will add also Norvasc. Actually, the patient is started on clonidine 0.1 mg p.o. t.i.d. We will follow further recommendations upon response to the blood pressure. We will put 10 mg of Norvasc and then follow with you. No coronary intervention at this point for obvious reason as mentioned above because the patient is actively bleeding. We will start the 10 mg of Norvasc with holding parameter less than 130. We will follow with you. Thank you Dr. Muir for providing me the opportunity in taking care of the patient, Manuel Lay. As mentioned again above, the patient is not a candidate to go to the label fuser tender, so no coronary intervention is planned at this time till the GI issue is completely resolved. Corey Mcdermott MD
[2017-04-17] MEDS: Insulin Reg-MEDIUM-Coverage SC SCH ×5 (04:30→22:55)
[2017-04-17 06:09] LABS: BASO # 0.05 K/mm3 (0.0-2.0); BASO % 1.2 % (0.0-3.0); EOS # 0.3 (0.0-0.7); EOS % 6.2 % (1.5-5.0); GRAN # 1.65 (1.4-6.5); GRAN % 39.2 % (50.0-68.0); HEMATOCRIT 26.4 % (42.0-52.0); LYMPH # 1.7 (1.2-3.4); LYMPH % 39.8 % (22.0-35.0); MEAN CORPUSCULAR HEMOGLOBIN 26.7 pg (25.0-35.0); MEAN CORPUSCULAR HGB CONC 32.2 g/dl (31.0-37.0); MEAN PLATELET VOLUME 10.5 fl (7.0-11.0); MONO # 0.6 (0.1-0.6); MONO % 13.6 % (1.0-6.0); RED CELL DISTRIBUTION WIDTH 15.9 % (11.5-14.5); WHITE BLOOD COUNT 4.2 10^3/ul (4.5-11.0)
[2017-04-17] MEDS: Nitroglycerin 2% Ointment Foilpak UD TOP SCH ×3 (06:19→17:06)
[2017-04-17 06:38] LABS: ALB/GLOB RATIO 1.2 (1.1-1.8); BILIRUBIN,TOTAL 0.4 mg/dL (0.2-1.3); CALCIUM 7.8 mg/dL (8.4-10.5); POTASSIUM 3.6 mmol/L (3.6-5.0); TOTAL PROTEIN 5.5 g/dL (5.8-8.3)
--- NOTE | 2017-04-17 09:30 | CP.PCM.PN ---
Subjective - Date & Time of Evaluation Date of Evaluation: 04/17/17 Time of Evaluation: 08:50 - Subjective Subjective: Comfortable in bed, not in distress, no fevers overnight. Objective - Vital Signs/Intake and Output Vital Signs (last 24 hours): Temp Pulse Resp BP Pulse Ox 97.8 F 54 L 22 132/74 96 04/17/17 06:00 04/17/17 06:30 04/17/17 06:30 04/17/17 04:00 04/15/17 20:00 Intake and Output: 04/16/17 04/17/17 18:59 06:59 Intake Total 460 Output Total 200 Balance 260 - Medications Medications: Current Medications Amlodipine Besylate (Norvasc) 10 mg PO DAILY [facility] Atorvastatin Calcium (Lipitor) 40 mg PO HS [facility] Last Admin: 04/16/17 21:42 Dose: 40 mg Clonidine HCl (Catapres) 0.1 mg PO TID MARYANN Last Admin: 04/16/17 17:06 Dose: 0.1 mg Diphenhydramine HCl (Benadryl) 50 mg PO HS PRN PRN Reason: Insomnia Last Admin: 04/17/17 00:51 Dose: 50 mg Meropenem 500 mg/ Sodium (Chloride) 100 mls @ 100 mls/hr IVPB Q12 MARYANN PRN Reason: Protocol Stop: 04/21/17 23:46 Last Admin: 04/16/17 21:42 Dose: 100 mls/hr Insulin Detemir (Levemir) 20 unit SC HS [facility] Last Admin: 04/16/17 22:49 Dose: 20 unit Insulin Human Regular (Humulin R Med) 0 units SC ACHS MARYANN PRN Reason: Protocol Losartan Potassium (Cozaar) 100 mg PO DAILY [facility] Last Admin: 04/16/17 09:25 Dose: 100 mg Metoprolol Tartrate (Lopressor) 50 mg PO BID [facility] Last Admin: 04/16/17 18:22 Dose: 50 mg Nitroglycerin (Nitro-Bid 2% Oint) 1 ea TOP Q6 [facility]ARYANN Last Admin: 04/17/17 06:19 Dose: 1 ea Ondansetron HCl (Zofran Inj) 4 mg IVP Q6H PRN PRN Reason: Nausea/Vomiting Last Admin: 04/15/17 21:00 Dose: 4 mg Pantoprazole Sodium (Protonix Inj) 40 mg IVP Q12 MARYANN Last Admin: 04/16/17 21:40 Dose: 40 mg - Labs Labs: 04/17/17 05:40 04/16/17 05:30 PT 11.8 Seconds (9.9-11.8) 04/14/17 20:06 INR 1.09 (0.93-1.08) H 04/14/17 20:06 APTT 29.1 Seconds (23.7-30.8) 04/14/17 20:06 - Constitutional Appears: Non-toxic, No Acute Distress - Head Exam Head Exam: NORMAL INSPECTION - Neck Exam Neck Exam: absent: Meningismus - Respiratory Exam Respiratory Exam: Decreased Breath Sounds Additional comments: right anterior chest wall HD catheter in place - Cardiovascular Exam Cardiovascular Exam: +S1, +S2 - GI/Abdominal Exam GI & Abdominal Exam: Soft. absent: Tenderness Assessment and Plan - Assessment and Plan (Free Text) Plan: Assessment Sepsis due to Klebsiella bacteremia, suspicious for HD catheter infection, R/O UTI - mild colitis found on CT abdomen and pelvis less likely to explain the septicemia DM HTN ESRD on HD CAD S/P CABG history of CVA history of rhabdomyolysis Plan Switched Merrem to Cefazolin (since Klebsiella in the blood is sensitive to it) and repeat blood cx today; follow up plan for possible removal of the HD catheter follow up urine cx results will monitor clinically
--- NOTE | 2017-04-17 09:36 | CT ---
PROCEDURE: CT Chest without contrast HISTORY: r/o infiltrate COMPARISON: None. TECHNIQUE: Contiguous axial images were obtained through the chest without intravenous contrast enhancement. Sagittal and coronal reconstructions were performed. Radiation dose (DLP): 1016 mGy-cm. This CT exam was performed using one or more of the following dose reduction techniques: Automated exposure control, adjustment of the mA and/or kV according to patient size, and/or use of iterative reconstruction technique. FINDINGS: LUNGS: Clear lungs. Visualized airway clear. There is scarring and atelectasis at both lung bases. There is no evidence of focal consolidation. There is decreased volume in the left lung. MEDIASTINUM: Unremarkable thoracic aorta. No aneurysm. There is calcification of the coronary arteries Main pulmonary artery unremarkable. No vascular congestion. No lymphadenopathy. PLEURA: No pleural fluid. No pneumothorax. BONES: No fracture. No destructive lesion. UPPER ABDOMEN: Gallbladder removed OTHER FINDINGS: None. IMPRESSION: No acute findings
[2017-04-17] MEDS ORDERED: ceFAZolin 2 GM in Sodium Chloride 0.9% 100 ML IVPB SCH (10:00)
--- NOTE | 2017-04-17 12:34 | CP.PCM.PN ---
<Nancy Clemens - Last Filed: 04/17/17 12:46> Subjective - Date & Time of Evaluation Date of Evaluation: 04/17/17 Time of Evaluation: 08:35 - Subjective Subjective: Nancy Clemens DO, PGY-1, Internal Medicine, Hospitalist Service Patient seen and examined at bedside. No acute events overnight. Patient is doing well, reports he is hungry. Tolerating clear liquids.Patient for dialysis today. Denies fevers, chills, nausea, vomiting, cp, palpitations, sob, abdominal pain, urinary symptoms. Objective - Vital Signs/Intake and Output Vital Signs (last 24 hours): Temp Pulse Resp BP Pulse Ox 97.7 F 55 L 20 127/60 96 04/17/17 08:00 04/17/17 11:32 04/17/17 08:00 04/17/17 11:32 04/15/17 20:00 Intake and Output: 04/17/17 04/17/17 06:59 18:59 Intake Total 460 Output Total 200 Balance 260 - Medications Medications: Current Medications Amlodipine Besylate (Norvasc) 10 mg PO DAILY [facility] Last Admin: 04/17/17 11:32 Dose: Not Given Atorvastatin Calcium (Lipitor) 40 mg PO HS [facility] Last Admin: 04/16/17 21:42 Dose: 40 mg Clonidine HCl (Catapres) 0.1 mg PO TID [facility] Last Admin: 04/17/17 11:31 Dose: Not Given Cyanocobalamin (Vitamin B12 1000 Mcg Tab) 1,000 mcg PO DAILY [facility] Diphenhydramine HCl (Benadryl) 50 mg PO HS PRN PRN Reason: Insomnia Last Admin: 04/17/17 00:51 Dose: 50 mg Cefazolin Sodium 2 gm/ Sodium (Chloride) 100 mls @ 200 mls/hr IVPB Q12 MARYANN PRN Reason: Protocol Insulin Detemir (Levemir) 20 unit SC HS [facility] Last Admin: 04/16/17 22:49 Dose: 20 unit Insulin Human Regular (Humulin R Med) 0 units SC ACHS MARYANN PRN Reason: Protocol Last Admin: 04/17/17 07:38 Dose: Not Given Losartan Potassium (Cozaar) 100 mg PO DAILY [facility] Last Admin: 04/17/17 11:32 Dose: Not Given Metoprolol Tartrate (Lopressor) 50 mg PO BID [facility] Last Admin: 04/17/17 11:32 Dose: Not Given Nitroglycerin (Nitro-Bid 2% Oint) 1 ea TOP Q6 [facility] Last Admin: 04/17/17 06:19 Dose: 1 ea Ondansetron HCl (Zofran Inj) 4 mg IVP Q6H PRN PRN Reason: Nausea/Vomiting Last Admin: 04/15/17 21:00 Dose: 4 mg Pantoprazole Sodium (Protonix Inj) 40 mg IVP Q12 [facility] Last Admin: 04/17/17 09:45 Dose: 40 mg Vitamin B Complex/Vit C/Folic Acid (Nephro-Eleni) 1 tab PO 0800 [facility] - Labs Labs: 04/17/17 05:40 04/17/17 05:40 PT 11.8 Seconds (9.9-11.8) 04/14/17 20:06 INR 1.09 (0.93-1.08) H 04/14/17 20:06 APTT 29.1 Seconds (23.7-30.8) 04/14/17 20:06 - Constitutional Appears: Non-toxic, No Acute Distress - Head Exam Head Exam: ATRAUMATIC, NORMAL INSPECTION - Eye Exam Eye Exam: EOMI, Normal appearance Pupil Exam: NORMAL ACCOMODATION - ENT Exam ENT Exam: Mucous Membranes Moist - Neck Exam Neck Exam: Full ROM - Respiratory Exam Respiratory Exam: Clear to Ausculation Bilateral, NORMAL BREATHING PATTERN. absent: Rales, Rhonchi, Wheezes - Cardiovascular Exam Cardiovascular Exam: REGULAR RHYTHM, +S1, +S2 Additional comments: R permacath: non-erythematous, non-purulent, crusted region noted at permacath insertion site - GI/Abdominal Exam GI & Abdominal Exam: Soft, Normal Bowel Sounds. absent: Distended, Guarding, Rigid, Tenderness - Extremities Exam Extremities Exam: Full ROM. absent: Tenderness Additional comments: R transmetatarsal amputation - Back Exam Back Exam: NORMAL INSPECTION - Neurological Exam Neurological Exam: Alert, Awake, Oriented x3 - Psychiatric Exam Psychiatric exam: Normal Affect, Normal Mood - Skin Skin Exam: Normal Color, Warm Assessment and Plan - Assessment and Plan (Free Text) Assessment: 56 year old male with history of Diabetes, Hypertension, CAD complicated by three prior MIs s/p cardiac stents and CABG (5 years ago), CVA, recent rhabdomyolysis acute renal failure (2 weeks ago) with history of CKD on HD MWF who presented with dark emesis. Currently being treated for perm-cath infection and possible upper GI bleed. Plan: 1. Hematemesis -CT Abdomen/Pelvis showed mild colitis vs underdistention -H/H stable: 8.5/26.4 -Asymptomatic -Continue protonix 40mg IVP Q12H -Zofran PRN for N/V -Advance as tolerated -Continue to monitor H/H with daily CBC's -Plan for elective EGD/colonoscopy once medically optimized, per GI -Will follow up with Dr. Becerril upon discharge -GI consulted, appreciate all recommendations 2. Sepsis 2/2 Line infection vs Right Lower Lobe Pneumonia -Chest xray in ED showed right lower lobe opacity -On admission, patient was febrile with Leukocytosis of 18.3 -Patient was on Merrem, changed to Cefazolin -Dialysis blood cultures grew gram negative rods -Dialysis Catheter to be removed by IR today -Chest CT official read pending -F/U sputum cx -ID consulted, all recommendations appreciated -Patient incontinent of loose stool, sent for C diff 3. ESRD recently placed on HD -Going for HD today -Patient HD schedule is TThSat -BUN/CR: 33/7.2 -Will continue to monitor electrolytes with daily CMP -Nephrology consulted, all recommendations appreciated 5. 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 DM2 -Humulin SSI-Medium -Levemir 20u SC HS -Fingersticks ACHS 7. GI/DVT Prophylaxis -Protonix/scd's <Marty Muir - Last Filed: 04/17/17 17:54> Objective - Vital Signs/Intake and Output Vital Signs (last 24 hours): Temp Pulse Resp BP Pulse Ox 97.7 F 55 L 20 127/60 96 04/17/17 08:00 04/17/17 11:32 04/17/17 08:00 04/17/17 11:32 04/15/17 20:00 Intake and Output: 04/17/17 04/17/17 06:59 18:59 Intake Total 460 Output Total 200 Balance 260 - Medications Medications: Current Medications Amlodipine Besylate (Norvasc) 10 mg PO DAILY [facility] Last Admin: 04/17/17 11:32 Dose: Not Given Atorvastatin Calcium (Lipitor) 40 mg PO HS [facility] Last Admin: 04/16/17 21:42 Dose: 40 mg Clonidine HCl (Catapres) 0.1 mg PO TID [facility] Cyanocobalamin (Vitamin B12 1000 Mcg Tab) 1,000 mcg PO DAILY [facility] Darbepoetin Jabari (Aranesp) 60 mcg IVP ONCE ONE Stop: 04/19/17 06:01 Diphenhydramine HCl (Benadryl) 50 mg PO HS PRN PRN Reason: Insomnia Last Admin: 04/17/17 00:51 Dose: 50 mg Doxercalciferol (Hectorol) 1 mcg IV MWF [facility] Cefazolin Sodium 2 gm/ Sodium (Chloride) 100 mls @ 200 mls/hr IVPB Q12 MARYANN PRN Reason: Protocol Insulin Detemir (Levemir) 20 unit SC HS [facility] Last Admin: 04/16/17 22:49 Dose: 20 unit Insulin Human Regular (Humulin R Med) 0 units SC ACHS MARYANN PRN Reason: Protocol Last Admin: 04/17/17 07:38 Dose: Not Given Isosorbide Mononitrate (Imdur) 30 mg PO DAILY [facility] Losartan Potassium (Cozaar) 100 mg PO DAILY [facility] Last Admin: 04/17/17 11:32 Dose: Not Given Metoprolol Tartrate (Lopressor) 25 mg PO BID [facility] Nitroglycerin (Nitro-Bid 2% Oint) 1 ea TOP Q6 MARYANN Stop: 04/17/17 23:59 Last Admin: 04/17/17 06:19 Dose: 1 ea Ondansetron HCl (Zofran Inj) 4 mg IVP Q6H PRN PRN Reason: Nausea/Vomiting Last Admin: 04/15/17 21:00 Dose: 4 mg Pantoprazole Sodium (Protonix Inj) 40 mg IVP Q12 [facility] Last Admin: 04/17/17 09:45 Dose: 40 mg Vancomycin HCl (Vancocin 25 Mg/Ml (Oral Use)) 125 mg PO QID [facility] PRN Reason: Protocol Vitamin B Complex/Vit C/Folic Acid (Nephro-Eleni) 1 tab PO 0800 [facility] - Labs Labs: 04/17/17 05:40 04/17/17 05:40 PT 11.8 Seconds (9.9-11.8) 04/14/17 20:06 INR 1.09 (0.93-1.08) H 04/14/17 20:06 APTT 29.1 Seconds (23.7-30.8) 04/14/17 20:06 Attending/Attestation - Attestation I have personally seen and examined this patient.: Yes I have fully participated in the care of the patient.: Yes I have reviewed all pertinent clinical information, including history, physical exam and plan: Yes Notes (Text): I have seen and examined patient with medical biller coder. Agree with the above note with the following additions/ exceptions: Briefly this is 56 year old male with a past medical history significant for hypertension, DM-2, CAD S/P CABG and stents , ESRD was recently started on on hemodialysis, Nephrotic syndrome, anemia, secondary hyperparathyroidism, Marijuana abuse who was admitted for transient episode of hematemesis. GI consult appreciated. Patient has been tolerating liquid diet and is requesting for food. Will advance diet to renal diet. As per GI, patient needs outpatient EGD and colonoscopy. He was found to have HCAP on meropenem. Blood culture from HD catheter is growing K pneumonia. Procal elevated. He also had elevated troponins. EKG showed some changes in septal and inferior leads. Patient will be npo past midnight for stress test tomorrow. Stool for cdiff toxin is positive and patient was started on PO vanco. Patient underwent HD today. Management plan was discussed in detail with patient. Upon discharge patient will follow up with Dr Ward. Dr Marty Muir
--- NOTE | 2017-04-17 14:14 | CP.PCM.PN ---
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 compliance to meds) Hypokalemia, Vit D deficiency, active Marijuana abuse. Plan: Will plan for dialysis today. Continue with Nephrovite 1 tab/day. PRBC as needed for anemia. On BEREKET as Aransep 40 mcg weekly (will increase to 60 mcg), last Hb 8.5. TSAT 11% Ferritin 511. hold IV iron due to sepsis Continue with hectorol 1 mcg with dialysis. Last PTH level 463. At home he is also on weekly Vit D BP control with meds as ordered. w/up for sec HTN neg. Patient on RAAS anjelica as Losartan. ? compliance to med as BP usually high at presentation which gets better controlled in hospital shortly after. Glycemic control, Dialysis consistent diet Further work up/management as per primary team Dose meds/antibiotics (if needed) for ESRD status. Avoid fleets enema/magnesium based laxatives. ID, cardiology and GI had evaluated him. agree with consult with IR for permacath removal and eventual placement of new permacath in a new tunnel. Thanks for allowing me to participate in care of your patient. Will follow patient with you. Please call if any Qs. Dr Sancho Garrett Office: [phone] Subjective: Noted events overnight. Patients feels better. has fatigue. no further nausea/vomiting. Denies chest pain, palpitation, shortness of breath, leg swelling. No urinary complaints. 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 Vitals reviewed and noted as below Lungs: Normal respiratory rate/effort. Breath sounds bilateral equal and clear Heart: Normal rate. s1s2 normal. No rub or gallop. Extremities: no edema. s/p forefoot amputation Neurological: Patient is alert, awake and oriented to person, place and time. No focal deficit. Strength bilateral appropriate and equal Skin: Warm and dry. Normal turgor. No rash. Palpitation: Normal elasticity for age Abdomen: Abdomen is soft. Bowel sounds +. There is no abdominal tenderness, no guarding/rigidity or organomegaly : kidney or bladder not palpable. has martinez catheter Access: Rt IJ permacath. mild discomfort over tunnel. scant discharge at exit site (red/yellowish) Labs/imaging reviewed. Past medical history, past surgical history, family history, social history, allergy reviewed Work up: CT chest/a/pelvis; reviewed. no pneumonia Aldosterone <1 renin 0.9 Metanephrine neg. renal artety doppler neg Objective - Vital Signs/Intake and Output Vital Signs (last 24 hours): Temp Pulse Resp BP Pulse Ox 97.7 F 55 L 20 127/60 96 04/17/17 08:00 04/17/17 11:32 04/17/17 08:00 04/17/17 11:32 04/15/17 20:00 Intake and Output: 04/17/17 04/17/17 06:59 18:59 Intake Total 460 Output Total 200 Balance 260 - Medications Medications: Current Medications Amlodipine Besylate (Norvasc) 10 mg PO DAILY [facility] Last Admin: 04/17/17 11:32 Dose: Not Given Atorvastatin Calcium (Lipitor) 40 mg PO HS [facility] Last Admin: 04/16/17 21:42 Dose: 40 mg Clonidine HCl (Catapres) 0.1 mg PO TID [facility] Last Admin: 04/17/17 11:31 Dose: Not Given Cyanocobalamin (Vitamin B12 1000 Mcg Tab) 1,000 mcg PO DAILY [facility] Diphenhydramine HCl (Benadryl) 50 mg PO HS PRN PRN Reason: Insomnia Last Admin: 04/17/17 00:51 Dose: 50 mg Cefazolin Sodium 2 gm/ Sodium (Chloride) 100 mls @ 200 mls/hr IVPB Q12 MARYANN PRN Reason: Protocol Insulin Detemir (Levemir) 20 unit SC HS [facility] Last Admin: 04/16/17 22:49 Dose: 20 unit Insulin Human Regular (Humulin R Med) 0 units SC ACHS MARYANN PRN Reason: Protocol Last Admin: 04/17/17 07:38 Dose: Not Given Losartan Potassium (Cozaar) 100 mg PO DAILY [facility] Last Admin: 04/17/17 11:32 Dose: Not Given Metoprolol Tartrate (Lopressor) 50 mg PO BID [facility] Last Admin: 04/17/17 11:32 Dose: Not Given Nitroglycerin (Nitro-Bid 2% Oint) 1 ea TOP Q6 [facility] Last Admin: 04/17/17 06:19 Dose: 1 ea Ondansetron HCl (Zofran Inj) 4 mg IVP Q6H PRN PRN Reason: Nausea/Vomiting Last Admin: 04/15/17 21:00 Dose: 4 mg Pantoprazole Sodium (Protonix Inj) 40 mg IVP Q12 [facility] Last Admin: 04/17/17 09:45 Dose: 40 mg Vitamin B Complex/Vit C/Folic Acid (Nephro-Eleni) 1 tab PO 0800 [facility] - Labs Labs: 04/17/17 05:40 04/17/17 05:40 PT 11.8 Seconds (9.9-11.8) 04/14/17 20:06 INR 1.09 (0.93-1.08) H 04/14/17 20:06 APTT 29.1 Seconds (23.7-30.8) 04/14/17 20:06
[2017-04-17] MEDS: Vancomycin 25 MG/ML PO SCH ×2 (17:03→21:09)
[2017-04-17] MEDS: Insulin Detemir 100 units/ml Vial (Levemir) SC SCH (21:44)
--- NOTE | 2017-04-18 03:24 | PN ---
REASON FOR CONSULTATION: Positive troponin with sepsis, coronary artery disease, GI bleed, CABG, admitted with GI bleed and generalized weakness. SUBJECTIVE: The patient denies any chest pain. Denies any shortness of breath. Denies any palpitation, but complaining of pain in both hands, legs, and all over the body. OBJECTIVE: The patient is having dialysis, not in apparent distress, wearing the mask during the dialysis, on waking up complains of pain in the hand, both legs, and all over the body, but no chest pain. Not in apparent distress, having dialysis. PHYSICAL EXAMINATION: As follows: VITAL SIGNS: Temperature afebrile, heart rate 55, blood pressure 127/60. HEENT: PERRLA. Extraocular muscles intact. NECK: Supple. No carotid bruit or thyromegaly. CHEST: Clear to auscultation. HEART: S1 and S2 regular. ABDOMEN: Soft. EXTREMITIES: Clubbing and cyanosis negative. LABORATORY DATA: Blood workup as follows: WBC 4.2, hemoglobin 8.5, hematocrit 26.4, platelet count 195. Chemistry shows sodium 135, potassium 3.6, chloride 102, carbon dioxide 21, anion gap of 16, BUN 33, creatinine 7.2. IMPRESSION: A 56-year-old male with noncompliance with medication with history of coronary artery disease way back 10 years ago. The patient having a percutaneous transluminal coronary angioplasty in [facility], then the patient had percutaneous transluminal coronary angioplasty at [facility] 7 years ago, then the patient with 3-vessel coronary artery bypass surgery at [facility] by Dr. Dony Brooke, admitted with gastrointestinal bleed. Denies any chest pain. Cardiology consult was called because the patient has troponin positive. Maximum troponin is 0.3. The patient has end-stage renal disease, on dialysis. Admitting hemoglobin was 12. Today, hemoglobin is 8.5. Denies any chest pain, shortness of breath, any palpitation, having dialysis. Most likely, this positive troponin is secondary to hemodynamic instability, doubt it is [id number] myocardial infarction, but cannot completely rule out as the patient has history of diabetes, hypertension, hyperlipidemia, coronary artery disease and noncompliance with medication, end-stage renal disease, high risk for future coronary event. RECOMMENDATIONS: Since the patient's bleeding, H and H is dropping, not a candidate to go for the lab aide because we need more anticoagulation, aspirin, Plavix; without this, the patient is dropping H and H and asymptomatic. We will try to treat medically. Continue amlodipine. Nitroglycerine will change to Imdur. Continue atorvastatin and we will hold the beta anjelica because of significant bradycardia, we will restart 12.5 mg b.i.d. from tomorrow after the washout period of before the patient was on 50 mg b.i.d. The patient is on clonidine 0.1 mg. We will put holding parameters, hold for systolic blood pressure less than 130. Continue medical treatment and follow. For risk stratification, we will do stress test to rule out any ischemia. The patient is not a candidate for cardiac catheterization. Ideally, he should have a cardiac catheterization, but since the patient is actively bleeding, he is not a candidate for cardiac catheterization. This time, we will get stress tomorrow, discontinue metoprolol tartrate 50 mg b.i.d. and change to 25 mg b.i.d. from tomorrow. We will hold today and also discontinue nitro patch after tonight. I will start Imdur from tomorrow in preparation for discharging home. Keep n.p.o. after midnight for stress test tomorrow. The patient having dialysis and we will get dialysis on Monday. With holding parameters, metoprolol 25 mg b.i.d. after washout with parameter holding heart rate less than 60. We will hold it. Keep n.p.o. after 12 midnight for stress test in the morning. We will follow with you. Thank you, Dr. Muir, for providing the opportunity in taking care of the patient. Corey Mcdermott MD
[2017-04-18] MEDS: ceFAZolin 2 GM in Sodium Chloride 0.9% 100 ML IVPB SCH ×2 (05:02→17:47)
[2017-04-18 07:52] LABS: BASO # 0.02 K/mm3 (0.0-2.0); BASO % 0.2 % (0.0-3.0); EOS % 0.1 % (1.5-5.0); GRAN # 7.53 (1.4-6.5); GRAN % 85.1 % (50.0-68.0); LYMPH # 0.9 (1.2-3.4); LYMPH % 10.5 % (22.0-35.0); MEAN CELL VOLUME 81.4 fl (80.0-105.0); MEAN CORPUSCULAR HEMOGLOBIN 26.8 pg (25.0-35.0); MEAN CORPUSCULAR HGB CONC 32.9 g/dl (31.0-37.0); MEAN PLATELET VOLUME 10.2 fl (7.0-11.0); MONO # 0.4 (0.1-0.6); MONO % 4.1 % (1.0-6.0); RED CELL DISTRIBUTION WIDTH 15.6 % (11.5-14.5); WHITE BLOOD COUNT 8.9 10^3/ul (4.5-11.0)
[2017-04-18 08:00] LABS: ALB/GLOB RATIO 1.1 (1.1-1.8); BILIRUBIN,TOTAL 0.7 mg/dL (0.2-1.3); CALCIUM 7.4 mg/dL (8.4-10.5); HEMATOCRIT 23.7 % (42.0-52.0); TOTAL PROTEIN 5.1 g/dL (5.8-8.3)
[2017-04-18] MEDS: Multivitamin Vitamin B Complex (Nephro-Vite) Tab PO SCH (08:29)
[2017-04-18] MEDS: Insulin Reg-MEDIUM-Coverage SC SCH ×4 (08:40→22:13)
[2017-04-18] MEDS: Vancomycin 25 MG/ML PO SCH ×4 (10:45→21:42)
--- NOTE | 2017-04-18 11:04 | CP.PCM.PN ---
Subjective - Date & Time of Evaluation Date of Evaluation: 04/18/17 Time of Evaluation: 09:30 - Subjective Subjective: Has nausea and diarrhea today, no fevers overnight. Objective - Vital Signs/Intake and Output Vital Signs (last 24 hours): Temp Pulse Resp BP Pulse Ox 98.9 F 80 20 146/68 97 04/18/17 04:00 04/18/17 06:00 04/18/17 04:00 04/18/17 04:00 04/18/17 04:00 Intake and Output: 04/17/17 04/18/17 18:59 06:59 Intake Total 100 Balance 100 - Medications Medications: Current Medications Amlodipine Besylate (Norvasc) 10 mg PO DAILY [facility] Last Admin: 04/17/17 16:59 Dose: 10 mg Atorvastatin Calcium (Lipitor) 40 mg PO HS [facility] Last Admin: 04/17/17 21:06 Dose: 40 mg Clonidine HCl (Catapres) 0.1 mg PO TID [facility] Last Admin: 04/17/17 17:00 Dose: 0.1 mg Cyanocobalamin (Vitamin B12 1000 Mcg Tab) 1,000 mcg PO DAILY [facility] Darbepoetin Jabari (Aranesp) 60 mcg IVP ONCE ONE Stop: 04/19/17 06:01 Diphenhydramine HCl (Benadryl) 50 mg PO HS PRN PRN Reason: Insomnia Last Admin: 04/17/17 00:51 Dose: 50 mg Doxercalciferol (Hectorol) 1 mcg IV MWF [facility] Cefazolin Sodium 2 gm/ Sodium (Chloride) 100 mls @ 200 mls/hr IVPB 0600,1800 [facility] PRN Reason: Protocol Last Admin: 04/18/17 05:02 Dose: 200 mls/hr Insulin Detemir (Levemir) 20 unit SC HS [facility] Last Admin: 04/17/17 21:44 Dose: 20 unit Insulin Human Regular (Humulin R Med) 0 units SC ACHS [facility] PRN Reason: Protocol Last Admin: 04/17/17 22:55 Dose: Not Given Isosorbide Mononitrate (Imdur) 30 mg PO DAILY [facility] Losartan Potassium (Cozaar) 100 mg PO DAILY [facility] Last Admin: 04/17/17 17:00 Dose: 100 mg Metoprolol Tartrate (Lopressor) 25 mg PO BID [facility] Ondansetron HCl (Zofran Inj) 4 mg IVP Q6H PRN PRN Reason: Nausea/Vomiting Last Admin: 04/18/17 05:53 Dose: 4 mg Pantoprazole Sodium (Protonix Inj) 40 mg IVP Q12 [facility] Last Admin: 04/17/17 21:08 Dose: 40 mg Vancomycin HCl (Vancocin 25 Mg/Ml (Oral Use)) 125 mg PO QID [facility] PRN Reason: Protocol Last Admin: 04/17/17 21:09 Dose: 125 mg Vitamin B Complex/Vit C/Folic Acid (Nephro-Eleni) 1 tab PO 0800 [facility] - Labs Labs: 04/17/17 05:40 04/17/17 05:40 PT 11.8 Seconds (9.9-11.8) 04/14/17 20:06 INR 1.09 (0.93-1.08) H 04/14/17 20:06 APTT 29.1 Seconds (23.7-30.8) 04/14/17 20:06 - Constitutional Appears: Non-toxic, No Acute Distress - Head Exam Head Exam: NORMAL INSPECTION - ENT Exam ENT Exam: Mucous Membranes Moist - Neck Exam Neck Exam: absent: Lymphadenopathy, Meningismus - Respiratory Exam Respiratory Exam: Decreased Breath Sounds - Cardiovascular Exam Cardiovascular Exam: +S1, +S2 - GI/Abdominal Exam GI & Abdominal Exam: Soft. absent: Tenderness Assessment and Plan - Assessment and Plan (Free Text) Plan: Assessment Sepsis due to Klebsiella bacteremia, suspicious for HD catheter infection, unlikely UTI - mild colitis found on CT abdomen and pelvis less likely to explain the septicemia; urine cx are negative C. diff. associated diarrhea DM HTN ESRD on HD CAD S/P CABG history of CVA history of rhabdomyolysis Plan continue Cefazolin (since Klebsiella in the blood is sensitive to it) and follow up repeat blood cx from yesterday; follow up plan for possible removal of the HD catheter (possibly scheduled for today) started patient on PO Vancomycin to complete 10-14 days will continue to monitor clinically
--- NOTE | 2017-04-18 11:40 | CP.PCM.PN ---
Subjective - Date & Time of Evaluation Date of Evaluation: 04/18/17 Time of Evaluation: 07:35 - Subjective Subjective: Nancy Clemens DO, PGY-1, Internal Medicine, Hospitalist Service Patient seen and examined at bedside. Patient was advanced to renal diet last night. Per nursing, patient was vomiting this morning, vomit appeared to be digested food. Zofran was given. Currently patient states nausea has improved, not actively vomiting but basin is at the bedside. Denies fevers, chills, headaches, dizziness, cp, palpitations, sob, abd pain, urinary symptoms. Objective - Vital Signs/Intake and Output Vital Signs (last 24 hours): Temp Pulse Resp BP Pulse Ox 98.9 F 80 20 146/68 97 04/18/17 04:00 04/18/17 06:00 04/18/17 04:00 04/18/17 04:00 04/18/17 04:00 Intake and Output: 04/18/17 04/18/17 06:59 18:59 Intake Total 520 Output Total 1350 Balance -830 - Medications Medications: Current Medications Amlodipine Besylate (Norvasc) 10 mg PO DAILY [facility] Last Admin: 04/17/17 16:59 Dose: 10 mg Atorvastatin Calcium (Lipitor) 40 mg PO HS [facility] Last Admin: 04/17/17 21:06 Dose: 40 mg Clonidine HCl (Catapres) 0.1 mg PO TID [facility] Last Admin: 04/17/17 17:00 Dose: 0.1 mg Cyanocobalamin (Vitamin B12 1000 Mcg Tab) 1,000 mcg PO DAILY [facility] Darbepoetin Jabari (Aranesp) 60 mcg IVP ONCE ONE Stop: 04/19/17 06:01 Diphenhydramine HCl (Benadryl) 50 mg PO HS PRN PRN Reason: Insomnia Last Admin: 04/17/17 00:51 Dose: 50 mg Doxercalciferol (Hectorol) 1 mcg IV MWF [facility] Cefazolin Sodium 2 gm/ Sodium (Chloride) 100 mls @ 200 mls/hr IVPB 0600,1800 [facility] PRN Reason: Protocol Last Admin: 04/18/17 05:02 Dose: 200 mls/hr Insulin Detemir (Levemir) 20 unit SC HS [facility] Last Admin: 04/17/17 21:44 Dose: 20 unit Insulin Human Regular (Humulin R Med) 0 units SC ACHS [facility] PRN Reason: Protocol Last Admin: 04/17/17 22:55 Dose: Not Given Isosorbide Mononitrate (Imdur) 30 mg PO DAILY [facility] Losartan Potassium (Cozaar) 100 mg PO DAILY [facility] Last Admin: 04/17/17 17:00 Dose: 100 mg Metoprolol Tartrate (Lopressor) 25 mg PO BID [facility] Ondansetron HCl (Zofran Inj) 4 mg IVP Q6H PRN PRN Reason: Nausea/Vomiting Last Admin: 04/18/17 05:53 Dose: 4 mg Pantoprazole Sodium (Protonix Inj) 40 mg IVP Q12 [facility] Last Admin: 04/17/17 21:08 Dose: 40 mg Vancomycin HCl (Vancocin 25 Mg/Ml (Oral Use)) 125 mg PO QID [facility] PRN Reason: Protocol Last Admin: 04/17/17 21:09 Dose: 125 mg Vitamin B Complex/Vit C/Folic Acid (Nephro-Eleni) 1 tab PO 0800 [facility] Last Admin: 04/18/17 08:29 Dose: Not Given - Labs Labs: 04/18/17 07:30 04/18/17 07:30 PT 11.8 Seconds (9.9-11.8) 04/14/17 20:06 INR 1.09 (0.93-1.08) H 04/14/17 20:06 APTT 29.1 Seconds (23.7-30.8) 04/14/17 20:06 - Constitutional Appears: No Acute Distress - Head Exam Head Exam: ATRAUMATIC, NORMAL INSPECTION - Eye Exam Eye Exam: EOMI, Normal appearance Pupil Exam: NORMAL ACCOMODATION - ENT Exam ENT Exam: Mucous Membranes Moist - Neck Exam Neck Exam: Full ROM - Respiratory Exam Respiratory Exam: Clear to Ausculation Bilateral, NORMAL BREATHING PATTERN. absent: Rales, Rhonchi, Wheezes - Cardiovascular Exam Cardiovascular Exam: REGULAR RHYTHM, +S1, +S2 Additional comments: +R permacath - GI/Abdominal Exam GI & Abdominal Exam: Soft, Normal Bowel Sounds. absent: Guarding, Rigid, Tenderness - Extremities Exam Extremities Exam: absent: Calf Tenderness, Pedal Edema Additional comments: R transmetatarsal amputation - Back Exam Back Exam: NORMAL INSPECTION - Neurological Exam Neurological Exam: Alert, Awake, Oriented x3 - Psychiatric Exam Psychiatric exam: Normal Affect, Normal Mood - Skin Skin Exam: Dry, Normal Color, Warm Assessment and Plan - Assessment and Plan (Free Text) Assessment: 56 year old male with history of Diabetes, Hypertension, CAD complicated by three prior MIs s/p cardiac stents and CABG (5 years ago), CVA, recent rhabdomyolysis acute renal failure (2 weeks ago) with history of CKD on HD MWF who presented with dark emesis. Currently being treated for perm-cath infection and possible upper GI bleed. Plan: 1. Hematemesis -Patient vomiting this am, unable to discern if coffee ground, emesis mixed with food -H/H dropped: 7.8/23.7 -Asymptomatic -Will transfuse 1 unit of PRBCs -F/U post transfusion CBC -Diet: NPO -Continue protonix 40mg IVP Q12H -Zofran PRN for N/V -Call placed to GI, patient scheduled for EGD and colonoscopy on -GI consulted, appreciate all recommendations 2. Sepsis 2/2 Line infection vs Right Lower Lobe Pneumonia -On admission, patient was febrile with Leukocytosis of 18.3 -Chest xray in ED showed right lower lobe opacity, CT chest showed no acute findings -Dialysis blood cultures grew gram negative rods -Dialysis Catheter to be removed by IR today -F/U catheter tip cultures -S/P Merrem -Continue Cefazolin (day 2) -ID consulted, all recommendations appreciated 3. C diff colitis -CT Abdomen/Pelvis showed mild colitis vs underdistention -C diff antigen (+), Toxin (-) -Vancomycin 125mg QID PO (will need 10-14 days of treatment) 4. ESRD recently placed on HD -Patient HD schedule is currently [facility] -2 L of fluid were removed during HD yesterday -BUN/CR: 14/4.5 -Will continue to monitor electrolytes with daily CMP -Aranesp to be given with HD -Permacath scheduled to be removed today, will need temporary access -Nephrology consulted, all recommendations appreciated 5. CAD s/p NV with stent placement less than one year ago -EKG shows NRS, septal infarct & inferior infarct of indeterminate age on admission -Serial troponins downtrending, currently at 0.12 -Pt not a candidate for anticoagulation/antiplatelet or vp lab in setting of acute GI bleed unless EKG shows active sinus ischemia and infarcting, per cardio -Patient was scheduled for Stress Test on -Continue lipitor 40mg HS, clonidine 0.1mg TID and Cozaar 100mg daily -Lopressor was held due to bradycardia, Lopressor was decreased to 25mg BID -Started on Imdur -Cardiology consulted, all recommendations appreciated 6. Hypokalemia -Potassium 3.0 today -Will give 20meq of KCl -Continue to monitor 7. Hyponatremia -Patient is ESRD on HD, will continue to monitor 8. DM2 -Humulin SSI-Medium -Levemir 20u SC HS -Fingersticks ACHS 9. GI/DVT Prophylaxis -Protonix/scd's
[2017-04-18] MEDS ORDERED: Lidocaine 2% Inj (20ml) ONE (13:11)
[2017-04-18] MEDS ORDERED: Midazolam 2 MG/2 ML VIAL ONE (13:17)
--- NOTE | 2017-04-18 16:05 | PN ---
DATE: 04/18/2017 REASON FOR THE CONSULTATION: Positive troponin, sepsis, coronary artery disease, GI bleed, CABG; admitted with GI bleed and generalized weakness and endstage renal disease, on dialysis. SUBJECTIVE: The patient is n.p.o. for stress test today but having . Denies any chest pain. Denies any shortness of breath. Denies any palpitation. OBJECTIVE: GENERAL: Lying flat on bed, not in apparent distress. Yesterday, he complaining of pain in all over body but does not complain today. VITAL SIGNS: Temperature afebrile, heart rate 80, blood pressure 142/68. HEENT: PERRLA. Extraocular muscles intact. NECK: Supple. No carotid bruit or thyromegaly. CHEST: Clear to auscultation. HEART: S1 and S2 regular. ABDOMEN: Soft. EXTREMITIES: Clubbing and cyanosis negative. LABORATORY DATA: Blood workup as follows: WBC 8.9, hemoglobin 7.8, hematocrit 23.7, platelet count 160. Chemistry shows sodium 131, potassium 3, chloride 96, carbon dioxide 26, BUN14, creatinine 4.5. Total protein 5.1, albumin 2.7. IMPRESSION: A 56-year-old male with past medical history significant for coronary artery disease, status post percutaneous transluminal coronary angioplasty in [facility]; history of percutaneous transluminal coronary angioplasty at [facility] 7 years ago. A 5 years ago, the patient had a 3-vessel bypass at [facility] by Dr. Shant Brooke, admitted here with gastrointestinal bleed and borderline troponin positive with asymptomatic, 0.25 and 0.16; history of endstage renal disease, on dialysis and history of anemia. Denies any chest pain. The patient was scheduled for a stress test today, but the patient is having Port-A-Cath change, so it was canceled and postponed for tomorrow for risk stratification. RECOMMENDATIONS: Consider dialysis; keep hemoglobin around 10. We will write for 1 unit of packed RBC transfusion. Since hemoglobin is 7.8, so we will get 1 unit of packed RBC tomorrow and scheduled for a stress test on . We do not want to get a false abnormal stress test; keep n.p.o. after Monday night for a stress test on . The patient will go for Port-A-Cath today. We will do a stress test because the patient is very noncompliant and to get further risk stratification, though the patient has a recent history of GI bleed, so cardiac catheterization was not done because the patient cannot tolerate aspirin, Plavix, and anticoagulation. Without anticoagulation and the patient's GI bleeding, H and Hs are dropping. Admitting hemoglobin was 12 and since then the patient dropped to 7.8. We will get him 1 unit of pack RBC tomorrow during the dialysis and schedule for a stress test on . Interim continue beta anjelica, nitrates. Not a candidate for anticoagulation at this time. We will follow with you. Thank you Dr. Muir for providing me the opportunity in taking care of the patient. Corey Mcdermott MD
--- NOTE | 2017-04-18 20:59 | VASCULAR ---
PROCEDURE: Ultrasound and fluoroscopically guided temporary left IJ dialysis catheter. CLINICAL HISTORY: Sepsis infected tunneled catheter Needs dialysis access. PHYSICIAN(S): Yousif Cortés M.D. TECHNIQUE: Technique: The relative risks and indications of the procedure were explained to the patient and consent obtained. The patient was placed supine on the arteriogram table and the left neck and chest prepped/draped in the usual sterile fashion. 1% Xylocaine was used to anesthetize the skin and soft tissues at the insertion site. Under direct ultrasound guidance, a singlewall puncture of the left internal jugular vein was performed with a micropuncture set. A 0.035 angled Glidewire was advanced into the IVC. Sequential dilatation was performed with subsequent placement of a Schon XL temporary dialysis catheter with its tip in the right atrium. Both ports aspirate and flush easily. The catheter was secured and a dressing applied. The patient tolerated the procedure well. IMPRESSION: 1. Ultrasound and fluoroscopically placed temporary left IJ dialysis catheter.
[2017-04-18] MEDS: Pantoprazole 40 mg EC Tab PO SCH (21:42)
[2017-04-18] MEDS: Insulin Detemir 100 units/ml Vial (Levemir) SC SCH (22:01)
[2017-04-19] MEDS: ceFAZolin 2 GM in Sodium Chloride 0.9% 100 ML IVPB SCH ×2 (05:33→17:43)
[2017-04-19] MEDS ORDERED: Darbepoetin Alfa 60 mcg/ml Inj IVP ONE (06:00)
--- NOTE | 2017-04-19 08:06 | CP.PCM.PN ---
Subjective - Date & Time of Evaluation Date of Evaluation: 04/19/17 Time of Evaluation: 07:10 - Subjective Subjective: Nancy Clemens DO, PGY-1, Internal Medicine, Hospitalist Service Patient seen and examined at bedside. Per nursing no acute events overnight. Patient reports feeling better this morning. Tolerating diet. S/P R permacath removal and temporary hemodiaylsis catheter insertion yesterday. Will go for HD today. Denies headaches, dizziness, visual changes, cp, palpitations, sob, abdominal pain, urinary symptoms. Reports BMs are still loose. Objective - Vital Signs/Intake and Output Vital Signs (last 24 hours): Temp Pulse Resp BP Pulse Ox 99 F 67 20 128/70 95 04/19/17 06:00 04/19/17 06:00 04/19/17 06:00 04/19/17 06:00 04/19/17 06:00 Intake and Output: 04/19/17 04/19/17 06:59 18:59 Intake Total 100 Output Total 400 Balance -300 - Medications Medications: Current Medications Amlodipine Besylate (Norvasc) 10 mg PO DAILY [facility] Last Admin: 04/18/17 15:43 Dose: 10 mg Atorvastatin Calcium (Lipitor) 40 mg PO HS [facility] Last Admin: 04/18/17 21:42 Dose: 40 mg Clonidine HCl (Catapres) 0.1 mg PO TID [facility] Last Admin: 04/18/17 19:11 Dose: 0.1 mg Cyanocobalamin (Vitamin B12 1000 Mcg Tab) 1,000 mcg PO DAILY [facility] Last Admin: 04/18/17 15:46 Dose: 1,000 mcg Diphenhydramine HCl (Benadryl) 50 mg PO HS PRN PRN Reason: Insomnia Last Admin: 04/17/17 00:51 Dose: 50 mg Doxercalciferol (Hectorol) 1 mcg IV MWF [facility] Cefazolin Sodium 2 gm/ Sodium (Chloride) 100 mls @ 200 mls/hr IVPB 0600,1800 [facility] PRN Reason: Protocol Last Admin: 04/19/17 05:33 Dose: 200 mls/hr Insulin Detemir (Levemir) 20 unit SC HS [facility] Last Admin: 04/18/17 22:01 Dose: 20 unit Insulin Human Regular (Humulin R Med) 0 units SC ACHS [facility] PRN Reason: Protocol Last Admin: 04/18/17 22:13 Dose: Not Given Isosorbide Mononitrate (Imdur) 30 mg PO DAILY [facility] Last Admin: 04/18/17 10:35 Dose: 30 mg Losartan Potassium (Cozaar) 100 mg PO DAILY [facility] Last Admin: 04/18/17 10:35 Dose: 100 mg Metoprolol Tartrate (Lopressor) 25 mg PO BID [facility] Last Admin: 04/18/17 19:12 Dose: 25 mg Ondansetron HCl (Zofran Inj) 4 mg IVP Q6H PRN PRN Reason: Nausea/Vomiting Last Admin: 04/18/17 21:53 Dose: 4 mg Pantoprazole Sodium (Protonix Ec Tab) 40 mg PO Q12 [facility] Last Admin: 04/18/17 21:42 Dose: 40 mg Vancomycin HCl (Vancocin 25 Mg/Ml (Oral Use)) 125 mg PO QID [facility] PRN Reason: Protocol Last Admin: 04/18/17 21:42 Dose: 125 mg Vitamin B Complex/Vit C/Folic Acid (Nephro-Eleni) 1 tab PO 0800 [facility] Last Admin: 04/18/17 08:29 Dose: Not Given Zolpidem Tartrate (Ambien) 10 mg PO HS PRN; Protocol PRN Reason: Insomnia Last Admin: 04/18/17 23:01 Dose: 10 mg - Labs Labs: 04/18/17 07:30 04/18/17 07:30 PT 11.8 Seconds (9.9-11.8) 04/14/17 20:06 INR 1.09 (0.93-1.08) H 04/14/17 20:06 APTT 29.1 Seconds (23.7-30.8) 04/14/17 20:06 - Constitutional Appears: Well, No Acute Distress - Head Exam Head Exam: ATRAUMATIC, NORMAL INSPECTION - Eye Exam Eye Exam: EOMI, Normal appearance Pupil Exam: NORMAL ACCOMODATION - ENT Exam ENT Exam: Mucous Membranes Moist - Neck Exam Neck Exam: Full ROM - Respiratory Exam Respiratory Exam: Clear to Ausculation Bilateral, NORMAL BREATHING PATTERN. absent: Rales, Rhonchi, Wheezes - Cardiovascular Exam Cardiovascular Exam: REGULAR RHYTHM, +S1, +S2 Additional comments: Dressing over permacath removal site c/d/i Temporary HD catheter in place - GI/Abdominal Exam GI & Abdominal Exam: Soft, Normal Bowel Sounds. absent: Guarding, Rigid, Tenderness - Rectal Exam Rectal Exam: Deferred - Extremities Exam Extremities Exam: absent: Calf Tenderness, Pedal Edema Additional comments: R transmetatarsal amputation - Back Exam Back Exam: NORMAL INSPECTION - Neurological Exam Neurological Exam: Alert, Awake, Oriented x3 - Psychiatric Exam Psychiatric exam: Normal Affect, Normal Mood - Skin Skin Exam: Dry, Normal Color, Warm Assessment and Plan - Assessment and Plan (Free Text) Assessment: 56 year old male with history of Diabetes, Hypertension, CAD complicated by three prior MIs s/p cardiac stents and CABG (5 years ago), CVA, recent rhabdomyolysis acute renal failure (2 weeks ago) with history of CKD on HD MWF who presented with dark emesis. Currently being treated for perm-cath infection and possible upper GI bleed. Plan: 1. Hematemesis -Nausea and vomiting has resolved -H/H: 7.8/23.7 yesterday, f/u am CBC -Currently Asymptomatic -2 units of PRBCs ordered, to be transfused today during dialysis -Diet: Clear liquid -Continue protonix 40mg IVP Q12H -Zofran PRN for N/V -Scheduled for EGD and colonoscopy for Monday -GI consulted, appreciate all recommendations 2. Sepsis likely 2/2 Line infection, possible Right Lower Lobe Pneumonia -On admission, patient was febrile with Leukocytosis of 18.3 -Chest xray in ED showed right lower lobe opacity, CT chest showed no acute findings, HCAP less likely -Initial Dialysis blood cultures grew gram negative rods -Repeat Line cx on 04/17 growing back gram negative rods -S/P permacath removal with IR and temporary HD catheter placement -F/U catheter tip cultures -S/P Merrem -Continue Cefazolin (day 3) -Will repeat blood cx today, f/u results -ID consulted, all recommendations appreciated 3. C diff colitis -CT Abdomen/Pelvis showed mild colitis vs underdistention -C diff antigen (+), Toxin (-) -Vancomycin 125mg QID PO (day 2) (will need 10-14 days of treatment) 4. ESRD recently placed on HD -Patient HD schedule is currently [facility] -Temporary HD catheter placed yesterday, will go for HD today -BUN/CR: 14/4.5 yesterday -F/U am labs -Will continue to monitor electrolytes with daily CMP -Nephrology consulted, all recommendations appreciated 5. 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 Hypokalemia -Potassium 3.0 yesterday -F/U am labs -Continue to monitor 7. Hyponatremia -Patient is ESRD on HD, will continue to monitor 8. DM2 -Humulin SSI-Medium -Levemir 20u SC HS -Fingersticks ACHS 9. GI/DVT Prophylaxis -Protonix/scd's
--- NOTE | 2017-04-19 08:38 | CP.PCM.PN ---
Subjective - Date & Time of Evaluation Date of Evaluation: 04/19/17 Time of Evaluation: 08:28 - Subjective Subjective: seen nad examined s/p temp hd cath placement Objective - Vital Signs/Intake and Output Vital Signs (last 24 hours): Temp Pulse Resp BP Pulse Ox 99 F 67 20 128/70 95 04/19/17 06:00 04/19/17 06:00 04/19/17 06:00 04/19/17 06:00 04/19/17 06:00 Intake and Output: 04/19/17 04/19/17 06:59 18:59 Intake Total 100 Output Total 400 Balance -300 - Medications Medications: Current Medications Amlodipine Besylate (Norvasc) 10 mg PO DAILY [facility] Last Admin: 04/18/17 15:43 Dose: 10 mg Atorvastatin Calcium (Lipitor) 40 mg PO HS [facility] Last Admin: 04/18/17 21:42 Dose: 40 mg Clonidine HCl (Catapres) 0.1 mg PO TID [facility] Last Admin: 04/18/17 19:11 Dose: 0.1 mg Cyanocobalamin (Vitamin B12 1000 Mcg Tab) 1,000 mcg PO DAILY [facility] Last Admin: 04/18/17 15:46 Dose: 1,000 mcg Diphenhydramine HCl (Benadryl) 50 mg PO HS PRN PRN Reason: Insomnia Last Admin: 04/17/17 00:51 Dose: 50 mg Doxercalciferol (Hectorol) 1 mcg IV MWF [facility] Cefazolin Sodium 2 gm/ Sodium (Chloride) 100 mls @ 200 mls/hr IVPB 0600,1800 [facility] PRN Reason: Protocol Last Admin: 04/19/17 05:33 Dose: 200 mls/hr Insulin Detemir (Levemir) 20 unit SC [facility] Last Admin: 04/18/17 22:01 Dose: 20 unit Insulin Human Regular (Humulin R Med) 0 units SC [facility] PRN Reason: Protocol Last Admin: 04/18/17 22:13 Dose: Not Given Isosorbide Mononitrate (Imdur) 30 mg PO DAILY [facility] Last Admin: 04/18/17 10:35 Dose: 30 mg Losartan Potassium (Cozaar) 100 mg PO DAILY [facility] Last Admin: 04/18/17 10:35 Dose: 100 mg Metoprolol Tartrate (Lopressor) 25 mg PO BID [facility] Last Admin: 04/18/17 19:12 Dose: 25 mg Ondansetron HCl (Zofran Inj) 4 mg IVP Q6H PRN PRN Reason: Nausea/Vomiting Last Admin: 04/18/17 21:53 Dose: 4 mg Pantoprazole Sodium (Protonix Ec Tab) 40 mg PO Q12 [facility] Last Admin: 04/18/17 21:42 Dose: 40 mg Vancomycin HCl (Vancocin 25 Mg/Ml (Oral Use)) 125 mg PO QID [facility] PRN Reason: Protocol Last Admin: 04/18/17 21:42 Dose: 125 mg Vitamin B Complex/Vit C/Folic Acid (Nephro-Eleni) 1 tab PO 0800 [facility] Last Admin: 04/18/17 08:29 Dose: Not Given Zolpidem Tartrate (Ambien) 10 mg PO HS PRN; Protocol PRN Reason: Insomnia Last Admin: 04/18/17 23:01 Dose: 10 mg - Labs Labs: 04/18/17 07:30 04/18/17 07:30 PT 11.8 Seconds (9.9-11.8) 04/14/17 20:06 INR 1.09 (0.93-1.08) H 04/14/17 20:06 APTT 29.1 Seconds (23.7-30.8) 04/14/17 20:06 - Constitutional Appears: Non-toxic - Head Exam Head Exam: ATRAUMATIC - Eye Exam Eye Exam: Normal appearance - ENT Exam ENT Exam: Normal Exam - Neck Exam Neck Exam: Normal Inspection - Respiratory Exam Respiratory Exam: NORMAL BREATHING PATTERN - Cardiovascular Exam Cardiovascular Exam: +S1, +S2 - GI/Abdominal Exam GI & Abdominal Exam: Normal Bowel Sounds - Extremities Exam Additional comments: no edema - Neurological Exam Neurological Exam: Alert, Oriented x3 - Psychiatric Exam Psychiatric exam: Normal Affect - Skin Skin Exam: Normal Color Assessment and Plan - Assessment and Plan (Free Text) Assessment: IMP: Bacteremia ESRD Anemia of acute blood loss, GI source as likely cause Diabetic chronic Kidney Disease (E11.22) with nephrotic syndrome Hypertensive Chronic Kidney Disease (I12.0) Anemia (D64.9), Secondary Hyperparathyroidism (E21.1), HTN (I12.0) Hypokalemia, Vit D deficiency Plan: HD today Continue with Nephrovite 1 tab/day. PRBC as needed for anemia. OnAransep Given ESRD status would consider switching Ancef to 2gm IV on MWF p HD Recc check surveillance bcx today w/ permacath out - if neg x 48 hours replace new permacath on Monday if ok w/ ID bp well controlled will dialyze on 3.5 k bath today
[2017-04-19] MEDS: Insulin Reg-MEDIUM-Coverage SC SCH ×4 (08:41→21:37)
[2017-04-19] MEDS: Multivitamin Vitamin B Complex (Nephro-Vite) Tab PO SCH (08:41)
[2017-04-19] MEDS: Pantoprazole 40 mg EC Tab PO SCH ×2 (10:00→21:35)
[2017-04-19] MEDS: Vancomycin 25 MG/ML PO SCH ×4 (11:18→22:00)
[2017-04-19 11:19] LABS: ALB/GLOB RATIO 1.1 (1.1-1.8); BILIRUBIN,TOTAL 0.2 mg/dL (0.2-1.3); CALCIUM 7.3 mg/dL (8.4-10.5); POTASSIUM 3.2 mmol/L (3.6-5.0); TOTAL PROTEIN 4.7 g/dL (5.8-8.3)
[2017-04-19 11:20] LABS: BASO # 0.01 K/mm3 (0.0-2.0); BASO % 0.1 % (0.0-3.0); EOS # 0.2 (0.0-0.7); EOS % 2.5 % (1.5-5.0); GRAN # 5.24 (1.4-6.5); GRAN % 76.3 % (50.0-68.0); LYMPH # 1.1 (1.2-3.4); LYMPH % 15.7 % (22.0-35.0); MEAN CELL VOLUME 81.9 fl (80.0-105.0); MEAN CORPUSCULAR HEMOGLOBIN 26.7 pg (25.0-35.0); MEAN CORPUSCULAR HGB CONC 32.6 g/dl (31.0-37.0); MEAN PLATELET VOLUME 10.7 fl (7.0-11.0); MONO # 0.4 (0.1-0.6); MONO % 5.4 % (1.0-6.0); RED CELL DISTRIBUTION WIDTH 15.7 % (11.5-14.5); WHITE BLOOD COUNT 6.9 10^3/ul (4.5-11.0)
[2017-04-19 11:23] LABS: HEMATOCRIT 22.1 % (42.0-52.0)
--- NOTE | 2017-04-19 11:50 | CP.PCM.PN ---
Subjective - Date & Time of Evaluation Date of Evaluation: 04/19/17 Time of Evaluation: 09:50 - Subjective Subjective: Comfortable, less nausea, no abdominal pain, no fevers, less diarrhea. Had temporary dialysis catheter placed yesterday and the tunneled catheter removed. Objective - Vital Signs/Intake and Output Vital Signs (last 24 hours): Temp Pulse Resp BP Pulse Ox 99 F 67 20 128/70 95 04/19/17 06:00 04/19/17 06:00 04/19/17 06:00 04/19/17 06:00 04/19/17 06:00 Intake and Output: 04/18/17 04/19/17 18:59 06:59 Intake Total 100 Output Total 400 Balance -300 - Medications Medications: Current Medications Amlodipine Besylate (Norvasc) 10 mg PO DAILY [facility] Last Admin: 04/18/17 15:43 Dose: 10 mg Atorvastatin Calcium (Lipitor) 40 mg PO HS [facility] Last Admin: 04/18/17 21:42 Dose: 40 mg Clonidine HCl (Catapres) 0.1 mg PO TID [facility] Last Admin: 04/18/17 19:11 Dose: 0.1 mg Cyanocobalamin (Vitamin B12 1000 Mcg Tab) 1,000 mcg PO DAILY [facility] Last Admin: 04/18/17 15:46 Dose: 1,000 mcg Diphenhydramine HCl (Benadryl) 50 mg PO HS PRN PRN Reason: Insomnia Last Admin: 04/17/17 00:51 Dose: 50 mg Doxercalciferol (Hectorol) 1 mcg IV [facility] Cefazolin Sodium 2 gm/ Sodium (Chloride) 100 mls @ 200 mls/hr IVPB 0600,1800 [facility] PRN Reason: Protocol Last Admin: 04/19/17 05:33 Dose: 200 mls/hr Insulin Detemir (Levemir) 20 unit SC [facility] Last Admin: 04/18/17 22:01 Dose: 20 unit Insulin Human Regular (Humulin R Med) 0 units SC [facility] PRN Reason: Protocol Last Admin: 04/18/17 22:13 Dose: Not Given Isosorbide Mononitrate (Imdur) 30 mg PO DAILY [facility] Last Admin: 04/18/17 10:35 Dose: 30 mg Losartan Potassium (Cozaar) 100 mg PO DAILY [facility] Last Admin: 04/18/17 10:35 Dose: 100 mg Metoprolol Tartrate (Lopressor) 25 mg PO BID [facility] Last Admin: 04/18/17 19:12 Dose: 25 mg Ondansetron HCl (Zofran Inj) 4 mg IVP Q6H PRN PRN Reason: Nausea/Vomiting Last Admin: 04/18/17 21:53 Dose: 4 mg Pantoprazole Sodium (Protonix Ec Tab) 40 mg PO Q12 [facility] Last Admin: 04/18/17 21:42 Dose: 40 mg Vancomycin HCl (Vancocin 25 Mg/Ml (Oral Use)) 125 mg PO QID [facility] PRN Reason: Protocol Last Admin: 04/18/17 21:42 Dose: 125 mg Vitamin B Complex/Vit C/Folic Acid (Nephro-Eleni) 1 tab PO 0800 [facility] Last Admin: 04/18/17 08:29 Dose: Not Given Zolpidem Tartrate (Ambien) 10 mg PO HS PRN; Protocol PRN Reason: Insomnia Last Admin: 04/18/17 23:01 Dose: 10 mg - Labs Labs: 04/18/17 07:30 04/18/17 07:30 PT 11.8 Seconds (9.9-11.8) 04/14/17 20:06 INR 1.09 (0.93-1.08) H 04/14/17 20:06 APTT 29.1 Seconds (23.7-30.8) 04/14/17 20:06 - Constitutional Appears: Non-toxic, No Acute Distress - Head Exam Head Exam: NORMAL INSPECTION - ENT Exam ENT Exam: Mucous Membranes Moist - Neck Exam Neck Exam: absent: Lymphadenopathy, Meningismus - Respiratory Exam Respiratory Exam: Decreased Breath Sounds - Cardiovascular Exam Cardiovascular Exam: +S1, +S2 - GI/Abdominal Exam GI & Abdominal Exam: Soft. absent: Tenderness Assessment and Plan - Assessment and Plan (Free Text) Plan: Assessment Sepsis due to Klebsiella bacteremial likely HD catheter infection S/P removal of tunneled Catheter POD #1 C. diff. associated diarrhea DM HTN ESRD on HD CAD S/P CABG history of CVA history of rhabdomyolysis Plan continue Cefazolin (since Klebsiella in the blood is sensitive to it) and follow up repeat blood cx from today (after HD catheter was removed); will check doppler U/S of the tunneled catheter area to make sure there is no thrombus continue PO Vancomycin day 2 to complete 10-14 days will continue to monitor clinically
--- NOTE | 2017-04-19 14:48 | CP.PCM.PN ---
<Minerva Jacinto - Last Filed: 04/19/17 14:43> Subjective - Date & Time of Evaluation Date of Evaluation: 04/19/17 Time of Evaluation: 14:44 - Subjective Subjective: Gastroenterology Fellow/PGY5 Progress Note Objective - Vital Signs/Intake and Output Vital Signs (last 24 hours): Temp Pulse Resp BP Pulse Ox 98 F 61 18 194/83 H 95 04/19/17 12:42 04/19/17 12:42 04/19/17 12:42 04/19/17 12:42 04/19/17 06:00 Intake and Output: 04/19/17 04/19/17 06:59 18:59 Intake Total 100 650 Output Total 400 Balance -300 650 - Medications Medications: Current Medications Amlodipine Besylate (Norvasc) 10 mg PO DAILY [facility] Last Admin: 04/19/17 11:18 Dose: Not Given Atorvastatin Calcium (Lipitor) 40 mg PO HS [facility] Last Admin: 04/18/17 21:42 Dose: 40 mg Clonidine HCl (Catapres) 0.1 mg PO TID [facility] Last Admin: 04/19/17 11:17 Dose: Not Given Cyanocobalamin (Vitamin B12 1000 Mcg Tab) 1,000 mcg PO DAILY [facility] Last Admin: 04/19/17 11:18 Dose: Not Given Diphenhydramine HCl (Benadryl) 50 mg PO HS PRN PRN Reason: Insomnia Last Admin: 04/17/17 00:51 Dose: 50 mg Doxercalciferol (Hectorol) 1 mcg IV MWF [facility] Cefazolin Sodium 2 gm/ Sodium (Chloride) 100 mls @ 200 mls/hr IVPB 0600,1800 [facility] PRN Reason: Protocol Last Admin: 04/19/17 05:33 Dose: 200 mls/hr Insulin Detemir (Levemir) 20 unit SC [facility] Last Admin: 04/18/17 22:01 Dose: 20 unit Insulin Human Regular (Humulin R Med) 0 units SC [facility] PRN Reason: Protocol Last Admin: 04/19/17 12:04 Dose: Not Given Isosorbide Mononitrate (Imdur) 30 mg PO DAILY [facility] Last Admin: 04/19/17 11:17 Dose: Not Given Losartan Potassium (Cozaar) 100 mg PO DAILY [facility] Last Admin: 04/19/17 11:17 Dose: Not Given Metoprolol Tartrate (Lopressor) 25 mg PO BID [facility] Last Admin: 04/19/17 11:18 Dose: Not Given Ondansetron HCl (Zofran Inj) 4 mg IVP Q6H PRN PRN Reason: Nausea/Vomiting Last Admin: 04/18/17 21:53 Dose: 4 mg Pantoprazole Sodium (Protonix Ec Tab) 40 mg PO Q12 [facility] Last Admin: 04/18/17 21:42 Dose: 40 mg Vancomycin HCl (Vancocin 25 Mg/Ml (Oral Use)) 125 mg PO QID [facility] PRN Reason: Protocol Last Admin: 04/19/17 11:18 Dose: Not Given Vitamin B Complex/Vit C/Folic Acid (Nephro-Eleni) 1 tab PO 0800 [facility] Last Admin: 04/19/17 08:41 Dose: 1 tab Zolpidem Tartrate (Ambien) 10 mg PO HS PRN; Protocol PRN Reason: Insomnia Last Admin: 04/18/17 23:01 Dose: 10 mg - Labs Labs: 04/19/17 11:00 04/19/17 11:00 PT 11.8 Seconds (9.9-11.8) 04/14/17 20:06 INR 1.09 (0.93-1.08) H 04/14/17 20:06 APTT 29.1 Seconds (23.7-30.8) 04/14/17 20:06 - Constitutional Appears: Non-toxic, No Acute Distress - Head Exam Head Exam: ATRAUMATIC, NORMOCEPHALIC - Eye Exam Eye Exam: EOMI, PERRL Pupil Exam: PERRL. absent: Miosis, Mydriatic - ENT Exam ENT Exam: Mucous Membranes Moist, Normal Oropharynx - Neck Exam Neck Exam: Full ROM, Normal Inspection - Respiratory Exam Respiratory Exam: Clear to Ausculation Bilateral. absent: Rales, Rhonchi, Wheezes - Cardiovascular Exam Cardiovascular Exam: RRR, +S1, +S2. absent: Gallop, Rubs - GI/Abdominal Exam GI & Abdominal Exam: Soft, Normal Bowel Sounds. absent: Distended, Firm, Guarding, Rigid, Tenderness, Organomegaly, Rebound - Extremities Exam Extremities Exam: Normal Inspection. absent: Pedal Edema - Neurological Exam Neurological Exam: Alert, Awake - Psychiatric Exam Psychiatric exam: Normal Affect, Normal Mood - Skin Skin Exam: Dry, Intact, Normal Color, Warm Assessment and Plan - Assessment and Plan (Free Text) Assessment: 56 year old male with history of Diabetes, Hypertension, CAD complicated by three prior MIs s/p cardiac stents and CABG (5 years ago), CVA, recent rhabdomyolysis acute renal failure (2 weeks ago) with history of CKD on HD MWF presenting with dark emesis. Active treatment of Perm-cath infection, pneumonia , anemia, and elevated troponins. No prior EGD or colonoscopy. Plan: >s/p 2U pRBCs with HD today >cardiology managing- stress test tomorrow >monitor H/H >continue PPI daily >clear liquid diet >follow up stress test results tomorrow >possible EGD/colonoscopy on Monday once medically optimized >will follow clinical course <Gonzalo Becerril MD - Last Filed: 04/19/17 16:48> Objective - Vital Signs/Intake and Output Vital Signs (last 24 hours): Temp Pulse Resp BP Pulse Ox 98 F 66 18 194/83 H 95 04/19/17 12:42 04/19/17 14:00 04/19/17 12:42 04/19/17 12:42 04/19/17 06:00 Intake and Output: 04/19/17 04/19/17 06:59 18:59 Intake Total 100 1130 Output Total 400 200 Balance -300 930 - Medications Medications: Current Medications Amlodipine Besylate (Norvasc) 10 mg PO DAILY [facility] Last Admin: 04/19/17 11:18 Dose: Not Given Atorvastatin Calcium (Lipitor) 40 mg PO HS [facility] Last Admin: 04/18/17 21:42 Dose: 40 mg Clonidine HCl (Catapres) 0.1 mg PO TID [facility] Last Admin: 04/19/17 14:00 Dose: Not Given Cyanocobalamin (Vitamin B12 1000 Mcg Tab) 1,000 mcg PO DAILY [facility] Last Admin: 04/19/17 11:18 Dose: Not Given Diphenhydramine HCl (Benadryl) 50 mg PO HS PRN PRN Reason: Insomnia Last Admin: 04/17/17 00:51 Dose: 50 mg Doxercalciferol (Hectorol) 1 mcg IV MWF [facility] Last Admin: 04/19/17 16:19 Dose: Not Given Cefazolin Sodium 2 gm/ Sodium (Chloride) 100 mls @ 200 mls/hr IVPB 0600,1800 [facility] PRN Reason: Protocol Last Admin: 04/19/17 05:33 Dose: 200 mls/hr Insulin Detemir (Levemir) 20 unit SC HS [facility] Last Admin: 04/18/17 22:01 Dose: 20 unit Insulin Human Regular (Humulin R Med) 0 units SC ACHS [facility] PRN Reason: Protocol Last Admin: 04/19/17 12:04 Dose: Not Given Isosorbide Mononitrate (Imdur) 30 mg PO DAILY [facility] Last Admin: 04/19/17 11:17 Dose: Not Given Losartan Potassium (Cozaar) 100 mg PO DAILY [facility] Last Admin: 04/19/17 11:17 Dose: Not Given Metoprolol Tartrate (Lopressor) 25 mg PO BID [facility] Last Admin: 04/19/17 11:18 Dose: Not Given Ondansetron HCl (Zofran Inj) 4 mg IVP Q6H PRN PRN Reason: Nausea/Vomiting Last Admin: 04/18/17 21:53 Dose: 4 mg Pantoprazole Sodium (Protonix Ec Tab) 40 mg PO Q12 [facility] Last Admin: 04/19/17 10:00 Dose: Not Given Vancomycin HCl (Vancocin 25 Mg/Ml (Oral Use)) 125 mg PO QID [facility] PRN Reason: Protocol Last Admin: 04/19/17 14:00 Dose: Not Given Vitamin B Complex/Vit C/Folic Acid (Nephro-Eleni) 1 tab PO 0800 [facility] Last Admin: 04/19/17 08:41 Dose: 1 tab Zolpidem Tartrate (Ambien) 10 mg PO HS PRN; Protocol PRN Reason: Insomnia Last Admin: 04/18/17 23:01 Dose: 10 mg - Labs Labs: 04/19/17 16:30 04/19/17 11:00 PT 11.8 Seconds (9.9-11.8) 04/14/17 20:06 INR 1.09 (0.93-1.08) H 04/14/17 20:06 APTT 29.1 Seconds (23.7-30.8) 04/14/17 20:06 Attending/Attestation - Attestation I have personally seen and examined this patient.: Yes I have fully participated in the care of the patient.: Yes I have reviewed all pertinent clinical information, including history, physical exam and plan: Yes Notes (Text): 04/19/17 16:47 Patient seen with GI fellow. This is a 56 year old male with history of Diabetes , Hypertension, CAD complicated by three prior MIs s/p cardiac stents and CABG ( 5 years ago), CVA, recent rhabdomyolysis acute renal failure (2 weeks ago) with history of CKD on HD MWF presenting with dark emesis. Active treatment of concern for perm-cath infection. GI consultation for possible upper GI bleed. No prior EGD or colonoscopy. No s/s of overt bleeding with stable H/Hct. No urgent indication for endoscopy. Will benefit from EGD/ colonoscopy once acute issues have resolved. Diet as tolerated. Treat infection as per primary team.
[2017-04-19] MEDS: Doxercalciferol 4 mcg/2 ml Inj IV SCH (16:19)
[2017-04-19 16:37] LABS: BASO # 0.03 K/mm3 (0.0-2.0); BASO % 0.5 % (0.0-3.0); EOS # 0.1 (0.0-0.7); EOS % 1.7 % (1.5-5.0); GRAN # 4.07 (1.4-6.5); GRAN % 70.4 % (50.0-68.0); HEMATOCRIT 28.9 % (42.0-52.0); LYMPH # 1.2 (1.2-3.4); LYMPH % 21.5 % (22.0-35.0); MEAN CELL VOLUME 81.4 fl (80.0-105.0); MEAN CORPUSCULAR HEMOGLOBIN 27.6 pg (25.0-35.0); MEAN CORPUSCULAR HGB CONC 33.9 g/dl (31.0-37.0); MEAN PLATELET VOLUME 10.7 fl (7.0-11.0); MONO # 0.3 (0.1-0.6); MONO % 5.9 % (1.0-6.0); RED CELL DISTRIBUTION WIDTH 15.1 % (11.5-14.5); WHITE BLOOD COUNT 5.8 10^3/ul (4.5-11.0)
--- NOTE | 2017-04-19 19:17 | US ---
PROCEDURE: Right upper extremity venous US CLINICAL HISTORY: Arm pain and swelling Evaluate for deep venous thrombosis. Recent catheter removal. PHYSICIAN(S): Yousif Cortés M.D FINDINGS: The visualized rightinternal jugular vein is sonographically normal and compressible. No evidence of obstruction or thrombus is seen. The visualized segments of the right subclavian vein are patent with normal waveforms. No sonographic evidence of obstruction or thrombosis is seen. The visualized deep venous system of the proximal right upper extremity is sonographically normal and compressible. IMPRESSION: 1. No sonographic evidence for deep venous thrombosis in the visualized segments of the right upper extremity.
[2017-04-19] MEDS: Insulin Detemir 100 units/ml Vial (Levemir) SC SCH (21:35)
--- NOTE | 2017-04-20 03:44 | PN ---
DATE: 04/19/2017 LOCATION: The patient is in [facility], bed 1. REASON FOR CONSULTATION: Follow up positive troponins, sepsis causing arterial disease, GI bleeding, CABG, admitted with GI bleed, generalized weakness, and end-stage renal disease, on dialysis. SUBJECTIVE: The patient right now is having dialysis, lying flat in bed without chest pain, shortness of breath, or palpitations. PHYSICAL EXAMINATION VITAL SIGNS: Blood pressure 163/82, respirations 18, pulse 70, and temperature 98. HEENT: Head is normocephalic. Eyes, pupils normal. Conjunctivae slightly pale. NECK: JVP low. Carotids equal. Thorax: AP diameter normal. LUNGS: Clear. CARDIOVASCULAR: S1 and S2. ABDOMEN: Soft. No tenderness. No organomegaly. EXTREMITIES: No clubbing. No cyanosis. LABORATORY DATA: WBC 5.8, hemoglobin 9.8, hematocrit 28.9, and platelet 157. Sodium 132, potassium 3.2, BUN 24, and creatinine 5.5, sugar 99. AST 19, ALT 20, total protein 4.7, albumin 2.5. The patient's hemoglobin this morning was 7.2 and hematocrit 22.1, but now his hemoglobin is 9.8 and hematocrit is 28.9 because the patient got 2 blood transfusions during dialysis. DIAGNOSES: Coronary artery disease status post angioplasty in [facility]; coronary artery bypass grafting; three-vessel bypass at [facility] by Dr. Brooke; gastrointestinal bleeding; borderline troponin positive at 0.25 and 0.16; end-stage renal disease, on dialysis; anemia. PLAN: The patient received 2 units of blood transfusion because of severe anemia, and we will try to do IV Lasix and stress test tomorrow morning. All the troponins were evaluated cardiac catheterization. The patient's GI bleed cannot handle aspirin and Plavix, or other anticoagulation at this time; however, we will do stress test to evaluate cardiac status, and we will follow with you. Stress test was scheduled for tomorrow. Corey Shine MD
[2017-04-20] MEDS: ceFAZolin 2 GM in Sodium Chloride 0.9% 100 ML IVPB SCH ×2 (05:54→18:13)
[2017-04-20 06:27] LABS: BASO # 0.02 K/mm3 (0.0-2.0); BASO % 0.3 % (0.0-3.0); EOS # 0.1 (0.0-0.7); EOS % 2.2 % (1.5-5.0); GRAN # 4.11 (1.4-6.5); GRAN % 65.3 % (50.0-68.0); LYMPH # 1.7 (1.2-3.4); LYMPH % 26.2 % (22.0-35.0); MEAN CELL VOLUME 82.8 fl (80.0-105.0); MEAN CORPUSCULAR HEMOGLOBIN 27.2 pg (25.0-35.0); MEAN CORPUSCULAR HGB CONC 32.9 g/dl (31.0-37.0); MEAN PLATELET VOLUME 11.2 fl (7.0-11.0); MONO # 0.4 (0.1-0.6); RED CELL DISTRIBUTION WIDTH 15.3 % (11.5-14.5); WHITE BLOOD COUNT 6.3 10^3/ul (4.5-11.0)
[2017-04-20 06:47] LABS: ALB/GLOB RATIO 1.1 (1.1-1.8); BILIRUBIN,TOTAL 0.5 mg/dL (0.2-1.3); CALCIUM 7.5 mg/dL (8.4-10.5); MAGNESIUM 1.7 mg/dL (1.7-2.2); PHOSPHOROUS 2.8 mg/dL (2.5-4.5); POTASSIUM 3.7 mmol/L (3.6-5.0)
[2017-04-20] MEDS: Insulin Reg-MEDIUM-Coverage SC SCH ×3 (08:02→17:44)
[2017-04-20] MEDS: Multivitamin Vitamin B Complex (Nephro-Vite) Tab PO SCH (08:02)
[2017-04-20] MEDS ORDERED: Aminophylline 25 mg/ml Inj ONE (09:15)
--- NOTE | 2017-04-20 09:54 | CP.PCM.PN ---
Subjective - Date & Time of Evaluation Date of Evaluation: 04/20/17 Time of Evaluation: 08:30 - Subjective Subjective: Patient for stress test today, no fevers overnight, diarrhea is getting better. Objective - Vital Signs/Intake and Output Vital Signs (last 24 hours): Temp Pulse Resp BP Pulse Ox 97.3 F L 64 20 157/78 H 100 04/20/17 00:01 04/20/17 02:00 04/20/17 00:01 04/20/17 00:01 04/20/17 00:01 Intake and Output: 04/19/17 04/20/17 18:59 06:59 Intake Total 1130 Output Total 200 400 Balance 930 -400 - Medications Medications: Current Medications Amlodipine Besylate (Norvasc) 10 mg PO DAILY [facility] Last Admin: 04/19/17 17:42 Dose: 10 mg Atorvastatin Calcium (Lipitor) 40 mg PO HS [facility] Last Admin: 04/19/17 21:35 Dose: 40 mg Clonidine HCl (Catapres) 0.1 mg PO TID [facility] Last Admin: 04/19/17 17:42 Dose: 0.1 mg Cyanocobalamin (Vitamin B12 1000 Mcg Tab) 1,000 mcg PO DAILY [facility] Last Admin: 04/19/17 17:42 Dose: 1,000 mcg Diphenhydramine HCl (Benadryl) 50 mg PO PRN PRN Reason: Insomnia Last Admin: 04/19/17 21:35 Dose: 50 mg Doxercalciferol (Hectorol) 1 mcg IV MWF [facility] Last Admin: 04/19/17 16:19 Dose: Not Given Cefazolin Sodium 2 gm/ Sodium (Chloride) 100 mls @ 200 mls/hr IVPB 0600,1800 [facility] PRN Reason: Protocol Last Admin: 04/20/17 05:54 Dose: 200 mls/hr Insulin Detemir (Levemir) 20 unit SC HS [facility] Last Admin: 04/19/17 21:35 Dose: 20 unit Insulin Human Regular (Humulin R Med) 0 units SC ACHS [facility] PRN Reason: Protocol Last Admin: 04/19/17 21:37 Dose: Not Given Isosorbide Mononitrate (Imdur) 30 mg PO DAILY [facility] Last Admin: 04/19/17 17:41 Dose: 30 mg Losartan Potassium (Cozaar) 100 mg PO DAILY [facility] Last Admin: 04/19/17 17:41 Dose: 100 mg Metoprolol Tartrate (Lopressor) 25 mg PO BID [facility] Last Admin: 04/19/17 17:41 Dose: 25 mg Ondansetron HCl (Zofran Inj) 4 mg IVP Q6H PRN PRN Reason: Nausea/Vomiting Last Admin: 04/18/17 21:53 Dose: 4 mg Pantoprazole Sodium (Protonix Ec Tab) 40 mg PO Q12 [facility] Last Admin: 04/19/17 21:35 Dose: 40 mg Vancomycin HCl (Vancocin 25 Mg/Ml (Oral Use)) 125 mg PO QID [facility] PRN Reason: Protocol Last Admin: 04/19/17 22:00 Dose: 125 mg Vitamin B Complex/Vit C/Folic Acid (Nephro-Eleni) 1 tab PO 0800 [facility] Last Admin: 04/19/17 08:41 Dose: 1 tab Zolpidem Tartrate (Ambien) 10 mg PO HS PRN; Protocol PRN Reason: Insomnia Last Admin: 04/19/17 21:35 Dose: 10 mg - Labs Labs: 04/19/17 16:30 04/19/17 11:00 PT 11.8 Seconds (9.9-11.8) 04/14/17 20:06 INR 1.09 (0.93-1.08) H 04/14/17 20:06 APTT 29.1 Seconds (23.7-30.8) 04/14/17 20:06 - Constitutional Appears: Non-toxic, No Acute Distress - Head Exam Head Exam: NORMAL INSPECTION - ENT Exam ENT Exam: Mucous Membranes Moist - Neck Exam Neck Exam: absent: Meningismus - Respiratory Exam Respiratory Exam: Decreased Breath Sounds Additional comments: left sided HD catheter site intact - Cardiovascular Exam Cardiovascular Exam: +S1, +S2 - GI/Abdominal Exam GI & Abdominal Exam: Soft. absent: Tenderness Assessment and Plan - Assessment and Plan (Free Text) Plan: Assessment Sepsis due to Klebsiella bacteremia likely HD catheter infection S/P removal of tunneled Catheter POD #2 C. diff. associated diarrhea DM HTN ESRD on HD CAD S/P CABG history of CVA history of rhabdomyolysis Plan continue Cefazolin (since Klebsiella in the blood is sensitive to it) and follow up repeat blood cx from yesterday (after HD catheter was removed); doppler U/S of the tunneled catheter area does not show thrombus in the subclavian area continue PO Vancomycin day 3 to complete 10-14 days will continue to follow clinically
[2017-04-20] MEDS: Vancomycin 25 MG/ML PO SCH ×4 (11:27→22:40)
[2017-04-20] MEDS: Pantoprazole 40 mg EC Tab PO SCH ×3 (11:27→21:39)
--- NOTE | 2017-04-20 12:25 | CP.PCM.PN ---
<Minerva Jacinto - Last Filed: 04/20/17 12:54> Subjective - Date & Time of Evaluation Date of Evaluation: 04/20/17 Time of Evaluation: 12:22 - Subjective Subjective: Gastroenterology Fellow/PGY5 Progress Note Patient doing well. Denies abdominal pain. Tolerating clear liquid diet. No bowel movement yesterday. 12-point review of systems negative except for as above. Objective - Vital Signs/Intake and Output Vital Signs (last 24 hours): Temp Pulse Resp BP Pulse Ox 98.5 F 60 20 107/57 L 98 04/20/17 06:00 04/20/17 06:00 04/20/17 06:00 04/20/17 06:00 04/20/17 06:00 Intake and Output: 04/20/17 04/20/17 06:59 18:59 Output Total 400 Balance -400 - Medications Medications: Current Medications Amlodipine Besylate (Norvasc) 10 mg PO DAILY [facility] Last Admin: 04/20/17 11:27 Dose: Not Given Atorvastatin Calcium (Lipitor) 40 mg PO HS [facility] Last Admin: 04/19/17 21:35 Dose: 40 mg Clonidine HCl (Catapres) 0.1 mg PO TID [facility] Last Admin: 04/20/17 11:26 Dose: Not Given Cyanocobalamin (Vitamin B12 1000 Mcg Tab) 1,000 mcg PO DAILY [facility] Last Admin: 04/20/17 11:28 Dose: Not Given Diphenhydramine HCl (Benadryl) 50 mg PO HS PRN PRN Reason: Insomnia Last Admin: 04/19/17 21:35 Dose: 50 mg Doxercalciferol (Hectorol) 1 mcg IV MWF [facility] Last Admin: 04/19/17 16:19 Dose: Not Given Cefazolin Sodium 2 gm/ Sodium (Chloride) 100 mls @ 200 mls/hr IVPB 0600,1800 [facility] PRN Reason: Protocol Last Admin: 04/20/17 05:54 Dose: 200 mls/hr Insulin Detemir (Levemir) 20 unit SC [facility] Last Admin: 04/19/17 21:35 Dose: 20 unit Insulin Human Regular (Humulin R Med) 0 units SC ACHS [facility] PRN Reason: Protocol Last Admin: 04/20/17 11:27 Dose: Not Given Isosorbide Mononitrate (Imdur) 30 mg PO DAILY [facility] Last Admin: 04/20/17 11:27 Dose: Not Given Losartan Potassium (Cozaar) 100 mg PO DAILY [facility] Last Admin: 04/20/17 11:26 Dose: Not Given Metoprolol Tartrate (Lopressor) 25 mg PO BID [facility] Last Admin: 04/20/17 11:27 Dose: Not Given Ondansetron HCl (Zofran Inj) 4 mg IVP Q6H PRN PRN Reason: Nausea/Vomiting Last Admin: 04/18/17 21:53 Dose: 4 mg Pantoprazole Sodium (Protonix Ec Tab) 40 mg PO Q12 [facility] Last Admin: 04/20/17 11:27 Dose: Not Given Vancomycin HCl (Vancocin 25 Mg/Ml (Oral Use)) 125 mg PO QID [facility] PRN Reason: Protocol Last Admin: 04/20/17 11:27 Dose: Not Given Vitamin B Complex/Vit C/Folic Acid (Nephro-Eleni) 1 tab PO 0800 [facility] Last Admin: 04/20/17 08:02 Dose: 1 tab Zolpidem Tartrate (Ambien) 10 mg PO HS PRN; Protocol PRN Reason: Insomnia Last Admin: 04/19/17 21:35 Dose: 10 mg - Labs Labs: 04/20/17 05:45 04/20/17 05:45 PT 11.8 Seconds (9.9-11.8) 04/14/17 20:06 INR 1.09 (0.93-1.08) H 04/14/17 20:06 APTT 29.1 Seconds (23.7-30.8) 04/14/17 20:06 - Constitutional Appears: Non-toxic, No Acute Distress - Head Exam Head Exam: ATRAUMATIC, NORMOCEPHALIC - Eye Exam Eye Exam: EOMI, PERRL Pupil Exam: PERRL. absent: Miosis, Mydriatic - ENT Exam ENT Exam: Mucous Membranes Moist, Normal Oropharynx - Neck Exam Neck Exam: Full ROM, Normal Inspection - Respiratory Exam Respiratory Exam: Clear to Ausculation Bilateral. absent: Rales, Rhonchi, Wheezes - Cardiovascular Exam Cardiovascular Exam: RRR, +S1, +S2. absent: Gallop, Rubs - GI/Abdominal Exam GI & Abdominal Exam: Soft, Normal Bowel Sounds. absent: Distended, Firm, Guarding, Rigid, Tenderness, Organomegaly, Rebound - Extremities Exam Extremities Exam: Normal Inspection. absent: Pedal Edema - Neurological Exam Neurological Exam: Alert, Awake - Psychiatric Exam Psychiatric exam: Normal Affect, Normal Mood - Skin Skin Exam: Dry, Intact, Normal Color Additional comments: left Perm-cath site Assessment and Plan - Assessment and Plan (Free Text) Assessment: 56 year old male with history of Diabetes, Hypertension, CAD complicated by three prior MIs s/p cardiac stents and CABG (5 years ago), CVA, recent rhabdomyolysis and acute renal failure with history of CKD on HD MWF presenting with dark emesis. Active treatment of sepsis 2/2 k. pneumoniae Bacteremia likely source Perm-cath s/p removal and new catheter placement, pneumonia, elevated troponins, Cdiff associated diarrhea, and anemia. No prior EGD or colonoscopy. Plan: >stress test today >follow up cardiology recommendations >H/H stable >will decide on proceeding with endoscopy procedure in the morning based on stress test results >will make NPO after midnight afor possible endoscopy tomorrow >likely outpatient colonoscopy >will follow clinical course <Hung Barragan - Last Filed: 04/20/17 13:17> Objective - Vital Signs/Intake and Output Vital Signs (last 24 hours): Temp Pulse Resp BP Pulse Ox 98.5 F 68 20 107/57 L 98 04/20/17 06:00 04/20/17 10:00 04/20/17 06:00 04/20/17 06:00 04/20/17 06:00 Intake and Output: 04/20/17 04/20/17 06:59 18:59 Output Total 400 Balance -400 - Medications Medications: Current Medications Amlodipine Besylate (Norvasc) 10 mg PO DAILY [facility] Last Admin: 04/20/17 11:27 Dose: Not Given Atorvastatin Calcium (Lipitor) 40 mg PO HS [facility] Last Admin: 04/19/17 21:35 Dose: 40 mg Clonidine HCl (Catapres) 0.1 mg PO TID [facility] Last Admin: 04/20/17 11:26 Dose: Not Given Cyanocobalamin (Vitamin B12 1000 Mcg Tab) 1,000 mcg PO DAILY [facility] Last Admin: 04/20/17 11:28 Dose: Not Given Diphenhydramine HCl (Benadryl) 50 mg PO HS PRN PRN Reason: Insomnia Last Admin: 04/19/17 21:35 Dose: 50 mg Doxercalciferol (Hectorol) 1 mcg IV MWF [facility] Last Admin: 04/19/17 16:19 Dose: Not Given Cefazolin Sodium 2 gm/ Sodium (Chloride) 100 mls @ 200 mls/hr IVPB 0600,1800 [facility] PRN Reason: Protocol Last Admin: 04/20/17 05:54 Dose: 200 mls/hr Insulin Detemir (Levemir) 20 unit SC HS [facility] Last Admin: 04/19/17 21:35 Dose: 20 unit Insulin Human Regular (Humulin R Med) 0 units SC ACHS [facility] PRN Reason: Protocol Last Admin: 04/20/17 11:27 Dose: Not Given Isosorbide Mononitrate (Imdur) 30 mg PO DAILY [facility] Last Admin: 04/20/17 11:27 Dose: Not Given Losartan Potassium (Cozaar) 100 mg PO DAILY [facility] Last Admin: 04/20/17 11:26 Dose: Not Given Metoprolol Tartrate (Lopressor) 25 mg PO BID [facility] Last Admin: 04/20/17 11:27 Dose: Not Given Ondansetron HCl (Zofran Inj) 4 mg IVP Q6H PRN PRN Reason: Nausea/Vomiting Last Admin: 04/18/17 21:53 Dose: 4 mg Pantoprazole Sodium (Protonix Ec Tab) 40 mg PO Q12 [facility] Last Admin: 04/20/17 11:27 Dose: Not Given Vancomycin HCl (Vancocin 25 Mg/Ml (Oral Use)) 125 mg PO QID [facility] PRN Reason: Protocol Last Admin: 04/20/17 11:27 Dose: Not Given Vitamin B Complex/Vit C/Folic Acid (Nephro-Eleni) 1 tab PO 0800 [facility] Last Admin: 04/20/17 08:02 Dose: 1 tab Zolpidem Tartrate (Ambien) 10 mg PO HS PRN; Protocol PRN Reason: Insomnia Last Admin: 04/19/17 21:35 Dose: 10 mg - Labs Labs: 04/20/17 05:45 04/20/17 05:45 PT 11.8 Seconds (9.9-11.8) 04/14/17 20:06 INR 1.09 (0.93-1.08) H 04/14/17 20:06 APTT 29.1 Seconds (23.7-30.8) 04/14/17 20:06 Attending/Attestation - Attestation I have personally seen and examined this patient.: Yes I have fully participated in the care of the patient.: Yes I have reviewed all pertinent clinical information, including history, physical exam and plan: Yes Notes (Text): 04/20/17 13:16 56 year old male with h/o DM, HTN, CAD s/p CABG/Stents, CVA, ARF, CKD a/w pneumonia, anemia, C. difficile diarrhea. 1. C. difficile diarrhea 2. Anemia Plan: -await stress test results -no overt GI bleeding -consider endoscopy depending on stress result -outpatient colonoscopy ercommended
--- NOTE | 2017-04-20 14:33 | CP.PCM.PN ---
<Nancy Clemens - Last Filed: 04/20/17 14:44> Subjective - Date & Time of Evaluation Date of Evaluation: 04/20/17 Time of Evaluation: 07:05 - Subjective Subjective: Nancy Clemens DO, PGY-1, Internal Medicine, Hospitalist Service Patient seen and examined at bedside. Per nursing no acute events overnight. Patient NPO for stress test today. Tolerated dialysis yesterday. Offers no complaints at this time. Diarrhea improving. Denies headaches, dizziness, chest pain, palpitations, shortness of breath, abdominal pain, urinary symptoms. Objective - Vital Signs/Intake and Output Vital Signs (last 24 hours): Temp Pulse Resp BP Pulse Ox 98.5 F 60 20 142/72 98 04/20/17 06:00 04/20/17 14:06 04/20/17 06:00 04/20/17 14:06 04/20/17 06:00 Intake and Output: 04/20/17 04/20/17 06:59 18:59 Output Total 400 Balance -400 - Medications Medications: Current Medications Amlodipine Besylate (Norvasc) 10 mg PO DAILY [facility] Last Admin: 04/20/17 14:05 Dose: 10 mg Atorvastatin Calcium (Lipitor) 40 mg PO HS [facility] Last Admin: 04/19/17 21:35 Dose: 40 mg Clonidine HCl (Catapres) 0.1 mg PO TID [facility] Last Admin: 04/20/17 14:06 Dose: 0.1 mg Cyanocobalamin (Vitamin B12 1000 Mcg Tab) 1,000 mcg PO DAILY [facility] Last Admin: 04/20/17 14:05 Dose: 1,000 mcg Diphenhydramine HCl (Benadryl) 50 mg PO HS PRN PRN Reason: Insomnia Last Admin: 04/19/17 21:35 Dose: 50 mg Doxercalciferol (Hectorol) 1 mcg IV MWF [facility] Last Admin: 04/19/17 16:19 Dose: Not Given Cefazolin Sodium 2 gm/ Sodium (Chloride) 100 mls @ 200 mls/hr IVPB 0600,1800 MARYANN PRN Reason: Protocol Last Admin: 04/20/17 05:54 Dose: 200 mls/hr Insulin Detemir (Levemir) 20 unit SC HS [facility] Last Admin: 04/19/17 21:35 Dose: 20 unit Insulin Human Regular (Humulin R Med) 0 units SC ACHS [facility] PRN Reason: Protocol Last Admin: 04/20/17 11:27 Dose: Not Given Isosorbide Mononitrate (Imdur) 30 mg PO DAILY [facility] Last Admin: 04/20/17 14:02 Dose: 30 mg Losartan Potassium (Cozaar) 100 mg PO DAILY [facility] Last Admin: 04/20/17 14:03 Dose: 100 mg Metoprolol Tartrate (Lopressor) 25 mg PO BID [facility] Last Admin: 04/20/17 11:27 Dose: Not Given Ondansetron HCl (Zofran Inj) 4 mg IVP Q6H PRN PRN Reason: Nausea/Vomiting Last Admin: 04/18/17 21:53 Dose: 4 mg Pantoprazole Sodium (Protonix Ec Tab) 40 mg PO Q12 [facility] Last Admin: 04/20/17 14:06 Dose: 40 mg Pregabalin (Lyrica) 75 mg PO BID [facility] Last Admin: 04/20/17 14:04 Dose: 75 mg Vancomycin HCl (Vancocin 25 Mg/Ml (Oral Use)) 125 mg PO QID [facility] PRN Reason: Protocol Last Admin: 04/20/17 14:01 Dose: 125 mg Vitamin B Complex/Vit C/Folic Acid (Nephro-Eleni) 1 tab PO 0800 [facility] Last Admin: 04/20/17 08:02 Dose: 1 tab Zolpidem Tartrate (Ambien) 10 mg PO HS PRN; Protocol PRN Reason: Insomnia Last Admin: 04/19/17 21:35 Dose: 10 mg - Labs Labs: 04/20/17 05:45 04/20/17 05:45 PT 11.8 Seconds (9.9-11.8) 04/14/17 20:06 INR 1.09 (0.93-1.08) H 04/14/17 20:06 APTT 29.1 Seconds (23.7-30.8) 04/14/17 20:06 - Constitutional Appears: Well, No Acute Distress - Head Exam Head Exam: ATRAUMATIC, NORMAL INSPECTION - Eye Exam Eye Exam: EOMI, Normal appearance Pupil Exam: NORMAL ACCOMODATION - ENT Exam ENT Exam: Mucous Membranes Moist - Neck Exam Neck Exam: Full ROM - Respiratory Exam Respiratory Exam: Clear to Ausculation Bilateral, NORMAL BREATHING PATTERN. absent: Rales, Rhonchi, Wheezes - Cardiovascular Exam Cardiovascular Exam: REGULAR RHYTHM, +S1, +S2 Additional comments: Temporary HD catheter in place, dressing c/d/i - GI/Abdominal Exam GI & Abdominal Exam: Soft, Tenderness, Normal Bowel Sounds. absent: Guarding, Rigid, Rebound - Extremities Exam Additional comments: R transmetametatarsal amputation - Back Exam Back Exam: NORMAL INSPECTION - Neurological Exam Neurological Exam: Alert, Awake, Oriented x3 - Psychiatric Exam Psychiatric exam: Normal Affect, Normal Mood - Skin Skin Exam: Normal Color, Warm Assessment and Plan - Assessment and Plan (Free Text) Assessment: 56 year old male with history of Diabetes, Hypertension, CAD complicated by three prior MIs s/p cardiac stents and CABG (5 years ago), CVA, recent rhabdomyolysis acute renal failure (2 weeks ago) with history of CKD on HD MWF who presented with dark emesis. Currently being treated for perm-cath infection and possible upper GI bleed. Plan: 1. Hematemesis -Nausea and vomiting has resolved -S/P 2 units PRBCs 04/19/17 -Hgb post trasnfusion 9.8, Hgb 9.2 today -Diet: NPO for stress test -Continue protonix 40mg PO Q12H -Zofran PRN for N/V -May possibly go for EGD tomorrow, -GI consulted, appreciate all recommendations 2. Sepsis likely 2/2 Line infection, possible Right Lower Lobe Pneumonia -On admission, patient was febrile with Leukocytosis of 18.3 -Chest xray in ED showed right lower lobe opacity, CT chest showed no acute findings, HCAP less likely -Initial Dialysis blood cultures grew gram negative rods -Repeat Line cx on 04/17 growing back gram negative rods -S/P permacath removal with IR and temporary HD catheter placement -S/P Merrem -Continue Cefazolin (day 4) -Blood cx (04/19) showing no growth x 24 hours -Catheter tip cultures showing no growth -ID consulted, all recommendations appreciated 3. C diff colitis -CT Abdomen/Pelvis showed mild colitis vs underdistention -C diff antigen (+), Toxin (-) -Vancomycin 125mg QID PO (day 3) (will need 10-14 days of treatment) 4. ESRD recently placed on HD -Patient HD schedule is currently [facility] -Temporary HD catheter placed, will go for HD tomorrow -BUN/CR: 11/3.6 -F/U am labs -Will continue to monitor electrolytes with daily CMP -Nephrology consulted, all recommendations appreciated 5. CAD s/p SC with stent placement less than one year ago -EKG shows NRS, septal infarct & inferior infarct of indeterminate age on admission -Serial troponins downtrending, currently at 0.12 -Pt not a candidate for anticoagulation/antiplatelet or track laborer in setting of acute GI bleed unless EKG shows active sinus ischemia and infarcting, per cardio -Patient NPO for scheduled for Stress Test today -Continue lipitor 40mg HS, clonidine 0.1mg TID and Cozaar 100mg daily -Lopressor 25mg BID -Continue Imdur -Cardiology consulted, all recommendations appreciated 6. Hypokalemia -F/U am labs -Continue to monitor 7. Hyponatremia -Patient is ESRD on HD, will continue to monitor 8. DM2 -Humulin ISS-Medium -Levemir 20u SC HS -Fingersticks ACHS 9. Peripheral Neuropathy -Started on Lyrica 10. GI/DVT Prophylaxis -Protonix/scd's <Marty Muir B - Last Filed: 04/20/17 17:54> Objective - Vital Signs/Intake and Output Vital Signs (last 24 hours): Temp Pulse Resp BP Pulse Ox 98.5 F 60 20 142/72 98 04/20/17 06:00 04/20/17 14:06 04/20/17 06:00 04/20/17 14:06 04/20/17 06:00 Intake and Output: 04/20/17 04/20/17 06:59 18:59 Output Total 400 Balance -400 - Medications Medications: Current Medications Amlodipine Besylate (Norvasc) 10 mg PO DAILY [facility] Last Admin: 04/20/17 14:05 Dose: 10 mg Atorvastatin Calcium (Lipitor) 40 mg PO HS [facility] Last Admin: 04/19/17 21:35 Dose: 40 mg Clonidine HCl (Catapres) 0.1 mg PO TID [facility] Last Admin: 04/20/17 14:06 Dose: 0.1 mg Cyanocobalamin (Vitamin B12 1000 Mcg Tab) 1,000 mcg PO DAILY [facility] Last Admin: 04/20/17 14:05 Dose: 1,000 mcg Diphenhydramine HCl (Benadryl) 50 mg PO HS PRN PRN Reason: Insomnia Last Admin: 04/19/17 21:35 Dose: 50 mg Doxercalciferol (Hectorol) 1 mcg IV MWF [facility] Last Admin: 04/19/17 16:19 Dose: Not Given Cefazolin Sodium 2 gm/ Sodium (Chloride) 100 mls @ 200 mls/hr IVPB 0600,1800 MARYANN PRN Reason: Protocol Last Admin: 04/20/17 05:54 Dose: 200 mls/hr Insulin Detemir (Levemir) 20 unit SC HS [facility] Last Admin: 04/19/17 21:35 Dose: 20 unit Insulin Human Regular (Humulin R Med) 0 units SC ACHS MARYANN PRN Reason: Protocol Last Admin: 04/20/17 11:27 Dose: Not Given Isosorbide Mononitrate (Imdur) 30 mg PO DAILY [facility] Last Admin: 04/20/17 14:02 Dose: 30 mg Losartan Potassium (Cozaar) 100 mg PO DAILY [facility] Last Admin: 04/20/17 14:03 Dose: 100 mg Metoprolol Tartrate (Lopressor) 25 mg PO BID [facility] Last Admin: 04/20/17 11:27 Dose: Not Given Ondansetron HCl (Zofran Inj) 4 mg IVP Q6H PRN PRN Reason: Nausea/Vomiting Last Admin: 04/18/17 21:53 Dose: 4 mg Pantoprazole Sodium (Protonix Ec Tab) 40 mg PO Q12 [facility] Last Admin: 04/20/17 14:06 Dose: 40 mg Pregabalin (Lyrica) 75 mg PO BID [facility] Last Admin: 04/20/17 14:04 Dose: 75 mg Vancomycin HCl (Vancocin 25 Mg/Ml (Oral Use)) 125 mg PO QID [facility] PRN Reason: Protocol Last Admin: 04/20/17 14:01 Dose: 125 mg Vitamin B Complex/Vit C/Folic Acid (Nephro-Eleni) 1 tab PO 0800 [facility] Last Admin: 04/20/17 08:02 Dose: 1 tab Zolpidem Tartrate (Ambien) 10 mg PO HS PRN; Protocol PRN Reason: Insomnia Last Admin: 04/19/17 21:35 Dose: 10 mg - Labs Labs: 04/20/17 05:45 04/20/17 05:45 PT 11.8 Seconds (9.9-11.8) 04/14/17 20:06 INR 1.09 (0.93-1.08) H 04/14/17 20:06 APTT 29.1 Seconds (23.7-30.8) 04/14/17 20:06 Attending/Attestation - Attestation I have personally seen and examined this patient.: Yes I have fully participated in the care of the patient.: Yes I have reviewed all pertinent clinical information, including history, physical exam and plan: Yes Notes (Text): I have seen and examined patient with forensic medical examiner. Agree with the above note with the following additions/ exceptions: Briefly this is 56 year old male with a past medical history significant for hypertension, DM-2, CAD S/P CABG and stents , ESRD was recently started on on hemodialysis, Nephrotic syndrome, anemia, secondary hyperparathyroidism, Marijuana abuse who was admitted for transient episode of hematemesis. He was given 2 units of prbc. Post transfusion Hb is 9. He had stress test today. Result of which is pending. Patient will probably go for EGD tomorrow depending upon stress test results. He was found to have HCAP on meropenem. Blood culture from HD catheter is growing K pneumonia. Procal elevated. Repeat cultures from 1 day ago is negative. He had elevated troponins. EKG showed some changes in septal and inferior leads. We will follow up on stress test results. Patient is not a candidate for antiplatelet therapy due to GI bleeding. Stool for cdiff toxin is positive and patient was started on PO vanco. Patient had catheter exchange and is scheduled for HD tomorrow. Started Lyrica for neuropathic pain. Will discontinue martinez and give a voiding trial. Management plan was discussed in detail with patient. Upon discharge patient will follow up with Dr Ward. Dr Marty Muir
--- NOTE | 2017-04-20 15:02 | CP.PCM.PN ---
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 compliance to meds) Hypokalemia, Vit D deficiency, active Marijuana abuse. Plan: Will plan for dialysis tomorrow as per [facility] tim, no acute need today. Continue with Nephrovite 1 tab/day. PRBC as needed for anemia. On BEREKET as Aransep 60 mcg weekly last Hb 9.2. TSAT 11 % Ferritin 511. hold IV iron due to sepsis Continue with hectorol 1 mcg with dialysis. Last PTH level 463. At home he is also on weekly Vit D. Phos on low side BP control with meds as ordered. w/up for sec HTN neg. Patient on RAAS anjelica as Losartan. ? compliance to med as BP usually high at presentation which gets better controlled in hospital shortly after. Glycemic control, Dialysis consistent diet Further work up/management as per primary team Dose meds/antibiotics (if needed) for ESRD status. Avoid fleets enema/magnesium based laxatives. ID, cardiology and GI had evaluated him. placement of new permacath in a new tunnel once blood cx neg x 4 hrs. had stress test today. plan for endoscopic eval son. Please d/c martinez at the earlier Thanks for allowing me to participate in care of your patient. Will follow patient with you. Please call if any Qs. Dr Sancho Garrett Office: [phone] Subjective: Noted events overnight. Patients feels better. no further nausea/ vomiting. Denies chest pain, palpitation, shortness of breath, leg swelling. No urinary complaints. wants to eat Physical Examination: General Appearance: Comfortable, in no acute respiratory distress, co- operative. Vitals reviewed and noted as below Lungs: Normal respiratory rate/effort. Breath sounds bilateral equal and clear Heart: Normal rate. s1s2 normal. No rub or gallop. Extremities: no edema. s/p forefoot amputation Neurological: Patient is alert, awake and oriented to person, place and time. No focal deficit. Strength bilateral appropriate and equal Skin: Warm and dry. Normal turgor. No rash. Palpitation: Normal elasticity for age Abdomen: Abdomen is soft. Bowel sounds +. There is no abdominal tenderness, no guarding/rigidity or organomegaly : kidney or bladder not palpable. has martinez catheter Access: Lt IJ [facility] Labs/imaging reviewed. Past medical history, past surgical history, family history, social history, allergy reviewed Work up: CT chest/a/pelvis; reviewed. no pneumonia Aldosterone <1 renin 0.9 Metanephrine neg. renal artety doppler neg Objective - Vital Signs/Intake and Output Vital Signs (last 24 hours): Temp Pulse Resp BP Pulse Ox 98.5 F 60 20 142/72 98 04/20/17 06:00 04/20/17 14:06 04/20/17 06:00 04/20/17 14:06 04/20/17 06:00 Intake and Output: 04/20/17 04/20/17 06:59 18:59 Output Total 400 Balance -400 - Medications Medications: Current Medications Amlodipine Besylate (Norvasc) 10 mg PO DAILY [facility] Last Admin: 04/20/17 14:05 Dose: 10 mg Atorvastatin Calcium (Lipitor) 40 mg PO HS [facility] Last Admin: 04/19/17 21:35 Dose: 40 mg Clonidine HCl (Catapres) 0.1 mg PO TID [facility] Last Admin: 04/20/17 14:06 Dose: 0.1 mg Cyanocobalamin (Vitamin B12 1000 Mcg Tab) 1,000 mcg PO DAILY [facility] Last Admin: 04/20/17 14:05 Dose: 1,000 mcg Diphenhydramine HCl (Benadryl) 50 mg PO HS PRN PRN Reason: Insomnia Last Admin: 04/19/17 21:35 Dose: 50 mg Doxercalciferol (Hectorol) 1 mcg IV MWF [facility] Last Admin: 04/19/17 16:19 Dose: Not Given Cefazolin Sodium 2 gm/ Sodium (Chloride) 100 mls @ 200 mls/hr IVPB 0600,1800 TIM PRN Reason: Protocol Last Admin: 04/20/17 05:54 Dose: 200 mls/hr Insulin Detemir (Levemir) 20 unit SC HS [facility] Last Admin: 04/19/17 21:35 Dose: 20 unit Insulin Human Regular (Humulin R Med) 0 units SC ACHS TIM PRN Reason: Protocol Last Admin: 04/20/17 11:27 Dose: Not Given Isosorbide Mononitrate (Imdur) 30 mg PO DAILY [facility] Last Admin: 04/20/17 14:02 Dose: 30 mg Losartan Potassium (Cozaar) 100 mg PO DAILY [facility] Last Admin: 04/20/17 14:03 Dose: 100 mg Metoprolol Tartrate (Lopressor) 25 mg PO BID [facility] Last Admin: 04/20/17 11:27 Dose: Not Given Ondansetron HCl (Zofran Inj) 4 mg IVP Q6H PRN PRN Reason: Nausea/Vomiting Last Admin: 04/18/17 21:53 Dose: 4 mg Pantoprazole Sodium (Protonix Ec Tab) 40 mg PO Q12 [facility] Last Admin: 04/20/17 14:06 Dose: 40 mg Pregabalin (Lyrica) 75 mg PO BID [facility] Last Admin: 04/20/17 14:04 Dose: 75 mg Vancomycin HCl (Vancocin 25 Mg/Ml (Oral Use)) 125 mg PO QID [facility] PRN Reason: Protocol Last Admin: 04/20/17 14:01 Dose: 125 mg Vitamin B Complex/Vit C/Folic Acid (Nephro-Eleni) 1 tab PO 0800 [facility] Last Admin: 04/20/17 08:02 Dose: 1 tab Zolpidem Tartrate (Ambien) 10 mg PO HS PRN; Protocol PRN Reason: Insomnia Last Admin: 04/19/17 21:35 Dose: 10 mg - Labs Labs: 04/20/17 05:45 04/20/17 05:45 PT 11.8 Seconds (9.9-11.8) 04/14/17 20:06 INR 1.09 (0.93-1.08) H 04/14/17 20:06 APTT 29.1 Seconds (23.7-30.8) 04/14/17 20:06
[2017-04-20] MEDS: Insulin Detemir 100 units/ml Vial (Levemir) SC SCH (21:39)
[2017-04-20 21:44] LABS: PH,URINE 8.5 (4.7-8.0); URINE BILIRUBIN NEGATIVE (NEGATIVE); URINE BLOOD SMALL (NEGATIVE); URINE GLUCOSE (UA) 250 mg/dL (NEGATIVE); URINE KETONE NEGATIVE (NEGATIVE); URINE LEUKOCYTE ESTERASE NEGATIVE Leu/uL (NEGATIVE); URINE PROTEIN >=300 mg/dL (<30 mg/dL); URINE UROBILINOGEN 0.2 E.U./dL (<1 E.U./dL)
--- NOTE | 2017-04-20 21:44 | CARD ---
APPROVED REPORT Protocol: LEXISCAN Test Type: Lexiscan Sestamibi Stress Test Attending Physician: Dr. Corey Shine Referring Physician: Dr. Marty Muir Test Indications: Chest Pain Height:5 ft 7 in Weight:204lbs Medications: Norvasc, Lipitor, Cefazolin, Catapres, Aranesp, Benadryl, Hectoral, Insulin, Imdur, Cozaar, Lopressor, Protonix, Vancomycin, Nephrovite Medical History: 56 y/o male with a history of diabetes, myocardial infarction, COPD, stroke, end stage renal disease on hemodialysis, s/o triple vessel coronary bypass Target HR: 164 bpm Resting ECG: Sinus Bradycardia 58/min. Poor R Progression V1-V3, LVH. ST_ Resting Heart Rate: 58 bpm Resting Blood Pressure: 150/82mmHg Submaximum (85%): 139 bpm PROCEDURE Pharmacologic stress testing was performed using 0.4mg per 5ml of regadenoson given intravenously over 7-10 seconds. POST EXERCISE Reason for Termination: Protocol completed Target HR: No Max HR: 57 bpm 45% of Maximum Predicted HR: 164 bpm Exercise duration: 00:31 min:sec, 0 Stage Exercise capacity: 1.0METs Max Blood Pressure: 150/82mmHg Blood Pressure response to exercise: resting hypertension - appropriate response Heart Rate response to exercise: appropriate Chest Pain: Yes, [place] Heavyness in Chest. Angina index: 0 Arrhythmia: No, none ST Change: Yes, No Additional ST_T Changes. Deviation: 0 mm INTERPRETATION Stress EKG Conclusion: IV LEXISCAN NUCLEAR STRESS TEST DURING WHICH PATIENT FELT HEAVYNESS IN CHEST. NO ADDITIONAL ST-T CHANGES. NUCLEAR SCAN REPORT PENDING. Signed by Corey Shine Electronically Approved: 04/20/2017 11:53:24 EXAM: Myocardial Perfusion STRESS/REST Stress Test Type: Pharmacologic Imaging Protocol Rest Spect myocardial perfusion imaging was performed in supine position 60 minutes following the injection of 30.2 mCi of Tc-99 Myoview. At peak stress, the patient was injected intravenously with 10.9mCi of Tc-99 tetrofosmin after an infusion time of 0 minutes and 10 seconds. Gated Stress Spect was performed 80 minutes after intravenous Tc-99 Myoview injection. The images were gated to evaluate regional wall motion and calculate ventricular ejection fraction.Images were reconstructed using backfilter projection method in short horizontal and verticle long axis. Spect slices were generated.
[2017-04-20 21:56] LABS: URINE APPEARANCE CLEAR (CLEAR); URINE COLOR YELLOW (YELLOW)
[2017-04-20 22:11] LABS: URINE EPITHELIAL CELLS 0 - 2 /hpf (0-5); URINE RBC 0 - 2 /hpf (0-2)
--- NOTE | 2017-04-20 23:25 | PN ---
DATE: 04/20/2017 LOCATION: The patient in room 260, bed 1. REASON FOR CONSULTATION: Positive troponin, sepsis, GI bleed, CABG. SUBJECTIVE: The patient denies any chest pain, shortness of breath, or palpitations at present. PHYSICAL EXAMINATION: VITAL SIGNS: Blood pressure 142/72, respirations 18, pulse 65, patient is afebrile. HEENT: Head is normocephalic. Eyes, pupils normal. Conjunctivae slightly pale. NECK: JVP low. Carotids equal. Thorax; AP diameter normal. LUNGS: Clear. CARDIOVASCULAR: S1 and S2. ABDOMEN: Soft. No tenderness. No organomegaly. Bowel sounds normal. EXTREMITIES: No clubbing. No cyanosis. LABORATORY DATA: WBC 20, hemoglobin 9.2, hematocrit 28.0, platelet 177. Sodium 134, potassium 3.7, BUN 11, creatinine 3.6, random sugar 211. AST, ALT normal, total protein 5.0, albumin 2.6. DIAGNOSES: Coronary artery disease status post angioplasty in [facility], coronary bypass surgery, gastrointestinal bleeding, severe anemia, borderline troponin positive 0.25 and 0.16, end-stage renal failure, on dialysis. PLAN: The patient got 2 units of blood transfusion yesterday and we will do IV Lexiscan stress test today and we will continue to follow with you. In the meantime, continue present therapy. Corey Shine MD
[2017-04-21] MEDS: Insulin Reg-MEDIUM-Coverage SC SCH ×5 (04:46→22:25)
[2017-04-21] MEDS: ceFAZolin 2 GM in Sodium Chloride 0.9% 100 ML IVPB SCH (06:03)
[2017-04-21 07:48] LABS: BASO # 0.06 K/mm3 (0.0-2.0); BASO % 1.1 % (0.0-3.0); EOS # 0.2 (0.0-0.7); EOS % 3.7 % (1.5-5.0); GRAN # 2.88 (1.4-6.5); GRAN % 50.9 % (50.0-68.0); LYMPH # 2.1 (1.2-3.4); LYMPH % 36.9 % (22.0-35.0); MEAN CELL VOLUME 82.8 fl (80.0-105.0); MEAN CORPUSCULAR HEMOGLOBIN 27.5 pg (25.0-35.0); MEAN CORPUSCULAR HGB CONC 33.2 g/dl (31.0-37.0); MEAN PLATELET VOLUME 10.4 fl (7.0-11.0); MONO # 0.4 (0.1-0.6); MONO % 7.4 % (1.0-6.0); RED CELL DISTRIBUTION WIDTH 15.4 % (11.5-14.5); WHITE BLOOD COUNT 5.7 10^3/ul (4.5-11.0)
[2017-04-21 08:04] LABS: ALB/GLOB RATIO 1.1 (1.1-1.8); BILIRUBIN,TOTAL 0.3 mg/dL (0.2-1.3); CALCIUM 7.6 mg/dL (8.4-10.5); MAGNESIUM 1.7 mg/dL (1.7-2.2); PHOSPHOROUS 2.9 mg/dL (2.5-4.5); POTASSIUM 3.6 mmol/L (3.6-5.0); TOTAL PROTEIN 5.2 g/dL (5.8-8.3)
--- NOTE | 2017-04-21 08:09 | CP.PCM.PN ---
<Minerva Jacinto - Last Filed: 04/21/17 10:38> Subjective - Date & Time of Evaluation Date of Evaluation: 04/21/17 Time of Evaluation: 08:05 - Subjective Subjective: Gastroenterology Fellow/PGY5 Progress Note Patient doing well. Denies abdominal pain. Tolerating clear liquid diet yesterday. No bowel movement yesterday. Denies vomiting, hematemesis, melena, or hematochezia. 12-point review of systems negative except for as above. Objective - Vital Signs/Intake and Output Vital Signs (last 24 hours): Temp Pulse Resp BP Pulse Ox 97.8 F 67 20 140/81 98 04/20/17 17:46 04/21/17 06:00 04/20/17 17:46 04/20/17 17:46 04/20/17 06:00 Intake and Output: 04/21/17 04/21/17 06:59 18:59 Intake Total 0 Output Total 0 Balance 0 - Medications Medications: Current Medications Amlodipine Besylate (Norvasc) 10 mg PO DAILY [facility] Last Admin: 04/20/17 14:05 Dose: 10 mg Atorvastatin Calcium (Lipitor) 40 mg PO HS [facility] Last Admin: 04/20/17 21:38 Dose: 40 mg Clonidine HCl (Catapres) 0.1 mg PO TID [facility] Last Admin: 04/20/17 17:45 Dose: 0.1 mg Cyanocobalamin (Vitamin B12 1000 Mcg Tab) 1,000 mcg PO DAILY [facility] Last Admin: 04/20/17 14:05 Dose: 1,000 mcg Diphenhydramine HCl (Benadryl) 50 mg PO HS PRN PRN Reason: Insomnia Last Admin: 04/19/17 21:35 Dose: 50 mg Doxercalciferol (Hectorol) 1 mcg IV MWF [facility] Last Admin: 04/19/17 16:19 Dose: Not Given Cefazolin Sodium 2 gm/ Sodium (Chloride) 100 mls @ 200 mls/hr IVPB 0600,1800 [facility] PRN Reason: Protocol Last Admin: 04/21/17 06:03 Dose: 200 mls/hr Insulin Detemir (Levemir) 20 unit SC [facility] Last Admin: 04/20/17 21:39 Dose: 20 unit Insulin Human Regular (Humulin R Med) 0 units SC [facility] PRN Reason: Protocol Last Admin: 04/21/17 04:46 Dose: Not Given Isosorbide Mononitrate (Imdur) 30 mg PO DAILY [facility] Last Admin: 04/20/17 14:02 Dose: 30 mg Losartan Potassium (Cozaar) 100 mg PO DAILY [facility] Last Admin: 04/20/17 14:03 Dose: 100 mg Metoprolol Tartrate (Lopressor) 25 mg PO BID [facility] Last Admin: 04/20/17 17:46 Dose: 25 mg Ondansetron HCl (Zofran Inj) 4 mg IVP Q6H PRN PRN Reason: Nausea/Vomiting Last Admin: 04/18/17 21:53 Dose: 4 mg Pantoprazole Sodium (Protonix Ec Tab) 40 mg PO Q12 [facility] Last Admin: 04/20/17 21:39 Dose: 40 mg Pregabalin (Lyrica) 75 mg PO BID [facility] Last Admin: 04/20/17 17:46 Dose: 75 mg Vancomycin HCl (Vancocin 25 Mg/Ml (Oral Use)) 125 mg PO QID [facility] PRN Reason: Protocol Last Admin: 04/20/17 22:40 Dose: 125 mg Vitamin B Complex/Vit C/Folic Acid (Nephro-Eleni) 1 tab PO 0800 [facility] Last Admin: 04/20/17 08:02 Dose: 1 tab Zolpidem Tartrate (Ambien) 10 mg PO HS PRN; Protocol PRN Reason: Insomnia Last Admin: 04/20/17 22:39 Dose: 10 mg - Labs Labs: 04/21/17 07:30 04/20/17 05:45 PT 11.8 Seconds (9.9-11.8) 04/14/17 20:06 INR 1.09 (0.93-1.08) H 04/14/17 20:06 APTT 29.1 Seconds (23.7-30.8) 04/14/17 20:06 - Constitutional Appears: Non-toxic, No Acute Distress - Head Exam Head Exam: ATRAUMATIC, NORMOCEPHALIC - Eye Exam Eye Exam: EOMI, PERRL Pupil Exam: PERRL. absent: Miosis, Mydriatic - ENT Exam ENT Exam: Mucous Membranes Moist, Normal Oropharynx - Neck Exam Neck Exam: Full ROM, Normal Inspection - Respiratory Exam Respiratory Exam: Clear to Ausculation Bilateral. absent: Rales, Rhonchi, Wheezes - Cardiovascular Exam Cardiovascular Exam: RRR, +S1, +S2. absent: Gallop, Rubs - GI/Abdominal Exam GI & Abdominal Exam: Soft, Normal Bowel Sounds. absent: Distended, Firm, Guarding, Rigid, Tenderness, Organomegaly, Rebound - Extremities Exam Extremities Exam: Normal Inspection. absent: Pedal Edema - Neurological Exam Neurological Exam: Alert, Awake - Psychiatric Exam Psychiatric exam: Normal Affect, Normal Mood - Skin Skin Exam: Dry, Intact, Normal Color, Warm Assessment and Plan - Assessment and Plan (Free Text) Assessment: 56 year old male with history of Diabetes, Hypertension, CAD complicated by three prior MIs s/p cardiac stents and CABG (5 years ago), CVA, recent rhabdomyolysis and acute renal failure with history of CKD on HD MWF presenting with dark emesis. Active treatment of sepsis 2/2 k. pneumoniae Bacteremia likely source Perm-cath s/p removal and new catheter placement, pneumonia, elevated troponins, Cdiff associated diarrhea, and anemia. No prior EGD or colonoscopy. Plan: >stress test yesterday >follow up cardiology recommendations >dialysis today >H/H stable >no overt GI blood loss >outpatient follow up for elective EGD and colonoscopy <Ruiz Olivo - Last Filed: 04/21/17 11:31> Objective - Vital Signs/Intake and Output Vital Signs (last 24 hours): Temp Pulse Resp BP Pulse Ox 97.8 F 67 20 140/81 97 04/20/17 17:46 04/21/17 06:00 04/20/17 17:46 04/20/17 17:46 04/20/17 07:05 Intake and Output: 04/21/17 04/21/17 06:59 18:59 Intake Total 0 Output Total 0 Balance 0 - Medications Medications: Current Medications Amlodipine Besylate (Norvasc) 10 mg PO DAILY [facility] Last Admin: 04/20/17 14:05 Dose: 10 mg Atorvastatin Calcium (Lipitor) 40 mg PO HS [facility] Last Admin: 04/20/17 21:38 Dose: 40 mg Clonidine HCl (Catapres) 0.1 mg PO TID [facility] Last Admin: 04/20/17 17:45 Dose: 0.1 mg Cyanocobalamin (Vitamin B12 1000 Mcg Tab) 1,000 mcg PO DAILY [facility] Last Admin: 04/20/17 14:05 Dose: 1,000 mcg Diphenhydramine HCl (Benadryl) 50 mg PO HS PRN PRN Reason: Insomnia Last Admin: 04/19/17 21:35 Dose: 50 mg Doxercalciferol (Hectorol) 1 mcg IV MWF [facility] Last Admin: 04/21/17 09:51 Dose: 1 mcg Cefazolin Sodium 2 gm/ Sodium (Chloride) 100 mls @ 200 mls/hr IVPB 0600,1800 [facility] PRN Reason: Protocol Last Admin: 04/21/17 06:03 Dose: 200 mls/hr Insulin Detemir (Levemir) 20 unit SC HS [facility] Last Admin: 04/20/17 21:39 Dose: 20 unit Insulin Human Regular (Humulin R Med) 0 units SC ACHS [facility] PRN Reason: Protocol Last Admin: 04/21/17 04:46 Dose: Not Given Isosorbide Mononitrate (Imdur) 30 mg PO DAILY [facility] Last Admin: 04/20/17 14:02 Dose: 30 mg Losartan Potassium (Cozaar) 100 mg PO DAILY [facility] Last Admin: 04/20/17 14:03 Dose: 100 mg Metoprolol Tartrate (Lopressor) 25 mg PO BID [facility] Last Admin: 04/20/17 17:46 Dose: 25 mg Ondansetron HCl (Zofran Inj) 4 mg IVP Q6H PRN PRN Reason: Nausea/Vomiting Last Admin: 04/18/17 21:53 Dose: 4 mg Pantoprazole Sodium (Protonix Ec Tab) 40 mg PO Q12 [facility] Last Admin: 04/20/17 21:39 Dose: 40 mg Polyethylene Glycol (Miralax) 17 gm PO DAILY [facility] Pregabalin (Lyrica) 75 mg PO BID [facility] Last Admin: 04/20/17 17:46 Dose: 75 mg Vancomycin HCl (Vancocin 25 Mg/Ml (Oral Use)) 125 mg PO QID [facility] PRN Reason: Protocol Last Admin: 04/20/17 22:40 Dose: 125 mg Vitamin B Complex/Vit C/Folic Acid (Nephro-Eleni) 1 tab PO 0800 [facility] Last Admin: 04/20/17 08:02 Dose: 1 tab Zolpidem Tartrate (Ambien) 10 mg PO HS PRN; Protocol PRN Reason: Insomnia Last Admin: 04/20/17 22:39 Dose: 10 mg - Labs Labs: 04/21/17 07:30 04/21/17 07:30 PT 11.8 Seconds (9.9-11.8) 04/14/17 20:06 INR 1.09 (0.93-1.08) H 04/14/17 20:06 APTT 29.1 Seconds (23.7-30.8) 04/14/17 20:06 Attending/Attestation - Attestation I have personally seen and examined this patient.: Yes I have fully participated in the care of the patient.: Yes I have reviewed all pertinent clinical information, including history, physical exam and plan: Yes Notes (Text): 04/21/17 11:28 I have seen and examined patient with GI fellow. No acute events overnight, he is currently receiving dialysis, appears comfortable. He complains of fatigue but otherwise denies abdominal pain, nausea, vomiting, fever/chills. He ate malagasy toast and eggs for breakfast without difficulty. DM / HTN CAD / CABG ESRD on HD Sepsis, bacteremia Anemia of chronic disease - Diet as tolerated - H/H stable, continue to monitor, no overt bleeding noted - Follow up cardiology recommendations regarding abnormal cardiac stress test - Continue with PPI therapy - Continue with antibiotic therapy as per ID - No further planned inpatient GI interventions, suggest outpatient elective endoscopic evaluation following medical optimization. Will sign off case, please reconsult as necessary, thank you.
[2017-04-21] MEDS: Doxercalciferol 4 mcg/2 ml Inj IV SCH (09:51)
--- NOTE | 2017-04-21 10:57 | PN ---
DATE: SUBJECTIVE: The patient is in bed, in no acute distress, nontoxic. PHYSICAL EXAMINATION: VITAL SIGNS: Temperature is 97, blood pressure is 140/80, respiratory rate of 18, heart rate of 67. HEENT: Unremarkable. NECK: Supple. LUNGS: Decreased breath sounds. HEART: Normal S1, S2. ABDOMEN: Soft, nontender. LABORATORY DATA: Reveals a white count of 6.3, hemoglobin of 9 and platelets of 177. Coagulation is noted. BUN of 11, creatinine of 3.6. Procalcitonin is 10. Urinalysis is noted. Microbiology reveals Klebsiella in the blood culture, wearing dialysis catheter and Klebsiella is tucker sensitive. A repeat blood culture has a gram-negative yumiko from 04/17/2017. In the further identification, sensitivity is pending. Catheter tip culture is pending. Repeat blood cultures on 04/19/2017, no growth. Review of orders reveals the patient to be on Ancef which is cefazolin 2 g q. 12. The patient is also on p.o. vancomycin. Dr. Shine's progress note from yesterday is reviewed. ASSESSMENT AND PLAN: This is a 56-year-old male admitted with sepsis with Klebsiella bacteremia, most likely hemodialysis catheter infection, status post removal of the tunnel catheter post procedure day #3 and the patient with diabetes mellitus, hypertension, end-stage renal disease on hemodialysis, coronary artery disease, history of coronary bypass graft, history of cerebrovascular accident, history of rhabdomyolysis and on day #4 p.o. vancomycin. Doppler does not show any thrombus in the subclavian area. We will follow closely with you. Dr. Yousif Cortés's note is reviewed from 04/17/2017 procedure ultrasound guided and temporary catheter. We will follow closely with you. Boyd Green MD
--- NOTE | 2017-04-21 12:33 | CP.PCM.PN ---
<Nancy Clemens - Last Filed: 04/21/17 14:22> Subjective - Date & Time of Evaluation Date of Evaluation: 04/24/17 Time of Evaluation: 07:20 - Subjective Subjective: Nancy Clemens DO, PGY-1, Internal Medicine, Hospitalist Service Patient seen and examined at bedside. Per nursing, no acute events overnight. Having some pain across permacath removal site. Offers no other complaints. NPO for possible EGD today. Denies headaches, dizziness, cp, sob, palpitations, abdominal pain, urinary symptoms. Objective - Vital Signs/Intake and Output Vital Signs (last 24 hours): Temp Pulse Resp BP Pulse Ox 97.8 F 67 20 140/81 97 04/20/17 17:46 04/21/17 06:00 04/20/17 17:46 04/20/17 17:46 04/20/17 07:05 Intake and Output: 04/21/17 04/21/17 06:59 18:59 Intake Total 0 Output Total 0 Balance 0 - Medications Medications: Current Medications Amlodipine Besylate (Norvasc) 10 mg PO DAILY [facility] Last Admin: 04/20/17 14:05 Dose: 10 mg Atorvastatin Calcium (Lipitor) 40 mg PO HS [facility] Last Admin: 04/20/17 21:38 Dose: 40 mg Clonidine HCl (Catapres) 0.1 mg PO TID [facility] Last Admin: 04/20/17 17:45 Dose: 0.1 mg Cyanocobalamin (Vitamin B12 1000 Mcg Tab) 1,000 mcg PO DAILY [facility] Last Admin: 04/20/17 14:05 Dose: 1,000 mcg Diphenhydramine HCl (Benadryl) 50 mg PO HS PRN PRN Reason: Insomnia Last Admin: 04/19/17 21:35 Dose: 50 mg Doxercalciferol (Hectorol) 1 mcg IV MWF [facility] Last Admin: 04/21/17 09:51 Dose: 1 mcg Cefazolin Sodium 2 gm/ Sodium (Chloride) 100 mls @ 200 mls/hr IVPB 0600,1800 [facility] PRN Reason: Protocol Last Admin: 04/21/17 06:03 Dose: 200 mls/hr Insulin Detemir (Levemir) 20 unit SC HS [facility] Last Admin: 04/20/17 21:39 Dose: 20 unit Insulin Human Regular (Humulin R Med) 0 units SC ACHS [facility] PRN Reason: Protocol Last Admin: 04/21/17 04:46 Dose: Not Given Isosorbide Mononitrate (Imdur) 30 mg PO DAILY [facility] Last Admin: 04/20/17 14:02 Dose: 30 mg Losartan Potassium (Cozaar) 100 mg PO DAILY [facility] Last Admin: 04/20/17 14:03 Dose: 100 mg Metoprolol Tartrate (Lopressor) 25 mg PO BID [facility] Last Admin: 04/20/17 17:46 Dose: 25 mg Ondansetron HCl (Zofran Inj) 4 mg IVP Q6H PRN PRN Reason: Nausea/Vomiting Last Admin: 04/18/17 21:53 Dose: 4 mg Pantoprazole Sodium (Protonix Ec Tab) 40 mg PO Q12 [facility] Last Admin: 04/20/17 21:39 Dose: 40 mg Polyethylene Glycol (Miralax) 17 gm PO DAILY [facility] Pregabalin (Lyrica) 75 mg PO BID [facility] Last Admin: 04/20/17 17:46 Dose: 75 mg Vancomycin HCl (Vancocin 25 Mg/Ml (Oral Use)) 125 mg PO QID [facility] PRN Reason: Protocol Last Admin: 04/20/17 22:40 Dose: 125 mg Vitamin B Complex/Vit C/Folic Acid (Nephro-Eleni) 1 tab PO 0800 [facility] Last Admin: 04/20/17 08:02 Dose: 1 tab Zolpidem Tartrate (Ambien) 10 mg PO HS PRN; Protocol PRN Reason: Insomnia Last Admin: 04/20/17 22:39 Dose: 10 mg - Labs Labs: 04/21/17 07:30 04/21/17 07:30 PT 11.8 Seconds (9.9-11.8) 04/14/17 20:06 INR 1.09 (0.93-1.08) H 04/14/17 20:06 APTT 29.1 Seconds (23.7-30.8) 04/14/17 20:06 - Constitutional Appears: Well, No Acute Distress - Head Exam Head Exam: ATRAUMATIC, NORMAL INSPECTION - Eye Exam Eye Exam: EOMI, Normal appearance Pupil Exam: NORMAL ACCOMODATION - ENT Exam ENT Exam: Mucous Membranes Moist - Neck Exam Neck Exam: Full ROM - Respiratory Exam Respiratory Exam: Clear to Ausculation Bilateral, NORMAL BREATHING PATTERN. absent: Rales, Rhonchi, Wheezes - Cardiovascular Exam Cardiovascular Exam: REGULAR RHYTHM, +S1, +S2 Additional comments: Temporary HD catheter in place - GI/Abdominal Exam GI & Abdominal Exam: Soft. absent: Guarding, Rigid, Tenderness, Rebound - Rectal Exam Rectal Exam: Deferred - Extremities Exam Extremities Exam: Normal Inspection. absent: Calf Tenderness - Back Exam Back Exam: NORMAL INSPECTION Additional comments: R transmetatarsal amputation - Neurological Exam Neurological Exam: Alert, Awake, Oriented x3 - Psychiatric Exam Psychiatric exam: Normal Affect, Normal Mood - Skin Skin Exam: Normal Color, Warm Assessment and Plan - Assessment and Plan (Free Text) Assessment: 56 year old male with history of Diabetes, Hypertension, CAD complicated by three prior MIs s/p cardiac stents and CABG (5 years ago), CVA, recent rhabdomyolysis acute renal failure (2 weeks ago) with history of CKD on HD MWF who presented with dark emesis. Currently being treated for perm-cath infection and possible upper GI bleed. Plan: 1. Hematemesis -S/P 2 units PRBCs 04/19/17 -Hgb 9.3 today, stable -Diet: HHD -Continue protonix 40mg PO Q12H -Zofran PRN for N/V -GI recommending EGD and colonoscopy as outpatient -GI consulted, appreciate all recommendations 2. Sepsis likely 2/2 Line infection, possible Right Lower Lobe Pneumonia -On admission, patient was febrile with Leukocytosis of 18.3 -Chest xray in ED showed right lower lobe opacity, CT chest showed no acute findings -Initial Dialysis blood cultures grew gram negative rods -S/P permacath removal with IR and temporary HD catheter placement -S/P Merrem -Cefazolin (day 5) -Blood cx (04/17) grew pseudomonas, resistent to cefazolin, will discontinue and start patient on Ciprofloxacin -Blood cx (04/19) showing no growth x 48 hours -Catheter tip cultures showing no growth -ID consulted, all recommendations appreciated 3. C diff colitis -CT Abdomen/Pelvis showed mild colitis vs underdistention -C diff antigen (+), Toxin (-) -Vancomycin 125mg QID PO (day 4) (will need 10-14 days of treatment) 4. ESRD recently placed on HD -Patient HD schedule is currently MWF -Patient for HD today -BUN/CR: 14/4.5 -F/U am labs -Will discuss with ID when patient can go for permacath placement -Will continue to monitor electrolytes with daily CMP -Nephrology consulted, all recommendations appreciated 5. CAD s/p NM with stent placement less than one year ago -EKG shows NRS, septal infarct & inferior infarct of indeterminate age on admission -Serial troponins downtrending, currently at 0.12 -Pt not a candidate for anticoagulation/antiplatelet or label stitcher in setting of acute GI bleed unless EKG shows active sinus ischemia and infarcting, per cardio -Stress test showing mod to severe LV dysfunction with diffuse hypokinesis and paradoxical septum, LVEF 29% -Continue lipitor 40mg HS, clonidine 0.1mg TID and Cozaar 100mg daily -Lopressor 25mg BID -Continue Imdur -Cardiology consulted, all recommendations appreciated 6. Hypokalemia -F/U am labs -Continue to monitor 7. Hyponatremia -Patient is ESRD on HD, will continue to monitor 8. DM2 -Humulin ISS-Medium -Levemir 20u SC HS -Fingersticks ACHS 9. Peripheral Neuropathy -Continue Lyrica 10. Urinary retention -Martinez removed last night -Patient has not voided yet -Will f/u bladder scan 11. GI/DVT Prophylaxis -Protonix/scd's <Matry Muir - Last Filed: 04/22/17 14:34> Objective - Vital Signs/Intake and Output Vital Signs (last 24 hours): Temp Pulse Resp BP Pulse Ox 97.4 F L 63 20 164/72 H 97 04/22/17 12:00 04/22/17 12:00 04/22/17 12:00 04/22/17 12:00 04/21/17 23:33 Intake and Output: 04/22/17 04/22/17 06:59 18:59 Intake Total 2940 Output Total 5450 Balance -2510 - Medications Medications: Current Medications Amlodipine Besylate (Norvasc) 10 mg PO DAILY [facility] Last Admin: 04/22/17 11:02 Dose: 10 mg Atorvastatin Calcium (Lipitor) 40 mg PO HS [facility] Last Admin: 04/21/17 21:02 Dose: 40 mg Ciprofloxacin (Cipro) 250 mg PO Q12 [facility] PRN Reason: Protocol Stop: 04/29/17 22:01 Clonidine HCl (Catapres) 0.1 mg PO TID [facility] Last Admin: 04/22/17 11:01 Dose: 0.1 mg Cyanocobalamin (Vitamin B12 1000 Mcg Tab) 1,000 mcg PO DAILY [facility] Last Admin: 04/22/17 11:03 Dose: 1,000 mcg Diphenhydramine HCl (Benadryl) 50 mg PO HS PRN PRN Reason: Insomnia Last Admin: 04/19/17 21:35 Dose: 50 mg Doxercalciferol (Hectorol) 1 mcg IV MWF [facility] Last Admin: 04/21/17 09:51 Dose: 1 mcg Insulin Detemir (Levemir) 20 unit SC HS [facility] Last Admin: 04/21/17 22:30 Dose: 20 unit Insulin Human Regular (Humulin R Med) 0 units SC ACHS [facility] PRN Reason: Protocol Last Admin: 04/22/17 12:11 Dose: Not Given Isosorbide Mononitrate (Imdur) 30 mg PO DAILY [facility] Last Admin: 04/22/17 11:03 Dose: 30 mg Losartan Potassium (Cozaar) 100 mg PO DAILY [facility] Last Admin: 04/22/17 11:03 Dose: 100 mg Metoprolol Tartrate (Lopressor) 25 mg PO BID [facility] Last Admin: 04/22/17 11:02 Dose: 25 mg Ondansetron HCl (Zofran Inj) 4 mg IVP Q6H PRN PRN Reason: Nausea/Vomiting Last Admin: 04/18/17 21:53 Dose: 4 mg Pantoprazole Sodium (Protonix Ec Tab) 40 mg PO Q12 [facility] Last Admin: 04/22/17 11:02 Dose: 40 mg Polyethylene Glycol (Miralax) 17 gm PO DAILY [facility] Last Admin: 04/22/17 11:03 Dose: Not Given Pregabalin (Lyrica) 75 mg PO BID [facility] Last Admin: 04/22/17 11:01 Dose: 75 mg Vancomycin HCl (Vancocin 25 Mg/Ml (Oral Use)) 125 mg PO QID [facility] PRN Reason: Protocol Last Admin: 04/22/17 11:04 Dose: 125 mg Vitamin B Complex/Vit C/Folic Acid (Nephro-Eleni) 1 tab PO 0800 [facility] Last Admin: 04/22/17 08:08 Dose: 1 tab Zolpidem Tartrate (Ambien) 10 mg PO HS PRN; Protocol PRN Reason: Insomnia Last Admin: 04/21/17 21:03 Dose: 10 mg - Labs Labs: 04/22/17 07:18 04/22/17 07:30 PT 11.8 Seconds (9.9-11.8) 04/14/17 20:06 INR 1.09 (0.93-1.08) H 04/14/17 20:06 APTT 29.1 Seconds (23.7-30.8) 04/14/17 20:06 Attending/Attestation - Attestation I have personally seen and examined this patient.: Yes I have fully participated in the care of the patient.: Yes I have reviewed all pertinent clinical information, including history, physical exam and plan: Yes Notes (Text): I have seen and examined patient with medical assistant. Agree with the above note with the following additions/ exceptions: Briefly this is 56 year old male with a past medical history significant for hypertension, DM-2, CAD S/P CABG and stents , ESRD on hemodialysis, Nephrotic syndrome, anemia, secondary hyperparathyroidism, Marijuana abuse who was admitted for transient episode of hematemesis and required 2 units of prbc. Today he had mild pain at permacath removal site. Patient failed voiding trial and martinez needed to be reinserted. He has troponins elevation and EKG changes. Yesterday stress test was done which showed fixed defect. As there was a discrepency in EF between echo and stress test, plan to perform MUGA scan to accurately identify EF. Patient is not a candidate for antiplatelet therapy due to GI bleeding. Discussed with GI team. Plan for outpatient EGD and colonoscopy. He was found to have HCAP on meropenem. Blood culture from HD catheter grew K pneumonia and second one grew psedomonas. Cipro was started. Procal elevated. Repeat cultures negative. Stool for cdiff toxin is positive and patient remains on PO vanco. Patient had catheter exchange and plan for permacath placement on monday. Continue Lyrica for neuropathic pain. Management plan was discussed in detail with patient. Upon discharge patient will follow up with Dr Ward. Dr Marty Muir
--- NOTE | 2017-04-21 13:08 | CP.PCM.PN ---
Subjective - Date & Time of Evaluation Date of Evaluation: 04/21/17 Time of Evaluation: 13:03 - Subjective Subjective: Follow up Nephrology Consultation Note Assessment: Stable K Pneumonia/pseudomonas bacteremia/sepsis, suspect permacath with tunnel infection as the source Anemia of acute blood loss, GI source as likely cause Diabetic chronic Kidney Disease (E11.22) with nephrotic syndrome Hypertensive Chronic Kidney Disease (I12.0) End stage renal disease (N18.6) dependence on hemodialysis (Z99.2) (mwf) via permacath Anemia (D64.9), Secondary Hyperparathyroidism (E21.1), HTN (I12.0) uncontrolled (? compliance to meds) Hypokalemia, Vit D deficiency, active Marijuana abuse. Abnormal Stress test LVEF 29% and regional wall motion abnormality : cardiomyopathy. Hx of CAD s/p CABG Plan: Will plan for dialysis today as per [facility] tim, Continue with Nephrovite 1 tab/ day. PRBC as needed for anemia. On BEREKET as Aransep 60 mcg weekly last Hb 9.3. TSAT 11 % Ferritin 511. hold IV iron due to sepsis Continue with hectorol 1 mcg with dialysis. Last PTH level 463. At home he is also on weekly Vit D. Phos on low side BP control with meds as ordered. w/up for sec HTN neg. Patient on RAAS anjelica as Losartan. ? compliance to med as BP usually high at presentation which gets better controlled in hospital shortly after. Glycemic control, Dialysis consistent diet Further work up/management as per primary team Dose meds/antibiotics for ESRD status. Avoid fleets enema/magnesium based laxatives. ID, cardiology and GI had evaluated him. placement of new permacath in a new tunnel once okay by ID had stress test done. plan for endoscopic eval as per GI. stable for d/c from renal perspective once has a nursing home dialysis catheter. pt admits to taking shower at home likely contributed to his line infection. He was educated in past not to shower and let catheter be exposed to water. it was reinforced to him again. Thanks for allowing me to participate in care of your patient. Will follow patient with you. Please call if any Qs. Dr Sancho Garrett Office: [phone] Subjective: Noted events overnight. Patients feels better. no further nausea/ vomiting. Denies chest pain, palpitation, shortness of breath, leg swelling. No urinary complaints. happy about good night sleep with ambien. feel more energy. 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 Vitals reviewed and noted as below Lungs: Normal respiratory rate/effort. Breath sounds bilateral equal and clear Heart: Normal rate. s1s2 normal. No rub or gallop. Extremities: no edema. s/p forefoot amputation Neurological: Patient is alert, awake and oriented to person, place and time. No focal deficit. Strength bilateral appropriate and equal Skin: Warm and dry. Normal turgor. No rash. Palpitation: Normal elasticity for age Abdomen: Abdomen is soft. Bowel sounds +. There is no abdominal tenderness, no guarding/rigidity or organomegaly : kidney or bladder not palpable. Access: [facility] Labs/imaging reviewed. Past medical history, past surgical history, family history, social history, allergy reviewed Work up: CT chest/a/pelvis; reviewed. no pneumonia Aldosterone <1 renin 0.9 Metanephrine neg. renal artety doppler neg Objective - Vital Signs/Intake and Output Vital Signs (last 24 hours): Temp Pulse Resp BP Pulse Ox 97.8 F 67 20 140/81 97 04/20/17 17:46 04/21/17 06:00 04/20/17 17:46 04/20/17 17:46 04/20/17 07:05 Intake and Output: 04/21/17 04/21/17 06:59 18:59 Intake Total 0 Output Total 0 Balance 0 - Medications Medications: Current Medications Amlodipine Besylate (Norvasc) 10 mg PO DAILY [facility] Last Admin: 04/20/17 14:05 Dose: 10 mg Atorvastatin Calcium (Lipitor) 40 mg PO HS [facility] Last Admin: 04/20/17 21:38 Dose: 40 mg Clonidine HCl (Catapres) 0.1 mg PO TID [facility] Last Admin: 04/20/17 17:45 Dose: 0.1 mg Cyanocobalamin (Vitamin B12 1000 Mcg Tab) 1,000 mcg PO DAILY [facility] Last Admin: 04/20/17 14:05 Dose: 1,000 mcg Diphenhydramine HCl (Benadryl) 50 mg PO HS PRN PRN Reason: Insomnia Last Admin: 04/19/17 21:35 Dose: 50 mg Doxercalciferol (Hectorol) 1 mcg IV MWF [facility] Last Admin: 04/21/17 09:51 Dose: 1 mcg Cefazolin Sodium 2 gm/ Sodium (Chloride) 100 mls @ 200 mls/hr IVPB 0600,1800 TIM PRN Reason: Protocol Last Admin: 04/21/17 06:03 Dose: 200 mls/hr Insulin Detemir (Levemir) 20 unit SC HS [facility] Last Admin: 04/20/17 21:39 Dose: 20 unit Insulin Human Regular (Humulin R Med) 0 units SC ACHS TIM PRN Reason: Protocol Last Admin: 04/21/17 12:57 Dose: Not Given Isosorbide Mononitrate (Imdur) 30 mg PO DAILY [facility] Last Admin: 04/20/17 14:02 Dose: 30 mg Losartan Potassium (Cozaar) 100 mg PO DAILY [facility] Last Admin: 04/20/17 14:03 Dose: 100 mg Metoprolol Tartrate (Lopressor) 25 mg PO BID [facility] Last Admin: 04/20/17 17:46 Dose: 25 mg Ondansetron HCl (Zofran Inj) 4 mg IVP Q6H PRN PRN Reason: Nausea/Vomiting Last Admin: 04/18/17 21:53 Dose: 4 mg Pantoprazole Sodium (Protonix Ec Tab) 40 mg PO Q12 [facility] Last Admin: 04/20/17 21:39 Dose: 40 mg Polyethylene Glycol (Miralax) 17 gm PO DAILY [facility] Pregabalin (Lyrica) 75 mg PO BID [facility] Last Admin: 04/20/17 17:46 Dose: 75 mg Vancomycin HCl (Vancocin 25 Mg/Ml (Oral Use)) 125 mg PO QID [facility] PRN Reason: Protocol Last Admin: 04/20/17 22:40 Dose: 125 mg Vitamin B Complex/Vit C/Folic Acid (Nephro-Eleni) 1 tab PO 0800 [facility] Last Admin: 04/20/17 08:02 Dose: 1 tab Zolpidem Tartrate (Ambien) 10 mg PO HS PRN; Protocol PRN Reason: Insomnia Last Admin: 04/20/17 22:39 Dose: 10 mg - Labs Labs: 04/21/17 07:30 04/21/17 07:30 PT 11.8 Seconds (9.9-11.8) 04/14/17 20:06 INR 1.09 (0.93-1.08) H 04/14/17 20:06 APTT 29.1 Seconds (23.7-30.8) 04/14/17 20:06
[2017-04-21] MEDS: Vancomycin 25 MG/ML PO SCH ×4 (14:41→22:22)
[2017-04-21] MEDS: Pantoprazole 40 mg EC Tab PO SCH ×2 (15:55→21:03)
[2017-04-21] MEDS: Multivitamin Vitamin B Complex (Nephro-Vite) Tab PO SCH (15:56)
[2017-04-21] MEDS: POLYETHYLENE GLYCOL 3350 17 GM/Dose PACKET PO SCH (15:59)
[2017-04-21] MEDS ORDERED: Ciprofloxacin 400mg/200ml D5W 400 MG/200 ML BAG IVPB SCH (22:00)
--- NOTE | 2017-04-21 22:15 | PN ---
DATE: 04/21/2017 LOCATION: The patient is in room 260, bed 1. REASON FOR CONSULTATION: Followup his positive troponin, sepsis, GI bleeding, CABG. SUBJECTIVE: The patient denies any chest pain, shortness of breath, or palpitations. The patient right now having dialysis at this moment, lying flat in bed. PHYSICAL EXAMINATION: VITAL SIGNS: Blood pressure is 144/72, respirations 20, pulse 66, patient is afebrile. HEENT: Head is normocephalic. Eyes, pupils normal. Conjunctivae slightly pale. NECK: JVP low. Carotids equal. Thorax; AP diameter normal. LUNGS: Clear. CARDIOVASCULAR: S1 and S2. ABDOMEN: Protuberant. No organomegaly. EXTREMITIES: No clubbing. No cyanosis. LABORATORY DATA: WBC 5.7, hemoglobin 9.3, hematocrit 28.0, platelet 189. Sodium 133, potassium 3.6, BUN 14, creatinine 4.5, random sugar 103. Total protein 5.2, which is low. Albumin is 2.7, which is also low. Calcium is 7.6. The patient had IV Lexiscan stress test yesterday, which was negative for ischemia and LV ejection fraction is 29%. The patient has echo on March 27, 2017 and in the echo, ejection fraction is reported 48%. DIAGNOSES: Coronary artery disease, status post angioplasty in [facility], coronary artery bypass surgery, gastrointestinal bleeding, severe anemia, borderline troponin positive 0.25 and 0.16, end-stage renal failure, on dialysis. Stress test done yesterday negative for ischemia with left ventricular ejection fraction 29% with echo on March 27, 2017 showed an ejection fraction of 48%. PLAN: The patient had been given blood transfusion for anemia and now is stable. Discrepancy between ejection fraction with the stress test and echo, we will do a MUGA scan. In the meantime, we will continue present therapy, clonidine 0.1 mg t.i.d., Cipro 400 mg IV q. 12 hours, Cozaar 100 mg daily, isosorbide mononitrate 30 mg daily, insulin as ordered, Lipitor 40 mg daily, Lopressor 25 mg b.i.d., Lyrica 75 mg b.i.d., amlodipine 10 mg daily, Protonix 40 mg daily, vancomycin 125 mg p.o. q.i.d. We will request MUGA scan to properly evaluate LV ejection fraction. We will follow. Corey Shine MD
[2017-04-21] MEDS: Insulin Detemir 100 units/ml Vial (Levemir) SC SCH (22:30)
--- NOTE | 2017-04-22 07:31 | CP.PCM.PN ---
<Libia Foster - Last Filed: 04/22/17 10:24> Subjective - Date & Time of Evaluation Date of Evaluation: 04/22/17 Time of Evaluation: 07:00 - Subjective Subjective: IM Progress Note, Libia Foster PGY-2 Pt seen and examined at bedside. No acute complaints at this time. No acute or adverse events as per nursing staff. Pt is for MUGA scan. Pt denied fever, chills, sob, chest pains, abdominal pains, n/v/d/c, hematemesis, melena, or hematochezia. Pt is tolerating HHD and has had 2 bowel movements. No further signs of active blood loss. Objective - Vital Signs/Intake and Output Vital Signs (last 24 hours): Temp Pulse Resp BP Pulse Ox 98.4 F 60 20 140/74 97 04/21/17 23:33 04/22/17 04:25 04/21/17 23:33 04/21/17 23:33 04/21/17 23:33 Intake and Output: 04/22/17 04/22/17 06:59 18:59 Intake Total 2940 Output Total 5450 Balance -2510 - Medications Medications: Current Medications Amlodipine Besylate (Norvasc) 10 mg PO DAILY [facility] Last Admin: 04/21/17 15:56 Dose: 10 mg Atorvastatin Calcium (Lipitor) 40 mg PO HS [facility] Last Admin: 04/21/17 21:02 Dose: 40 mg Clonidine HCl (Catapres) 0.1 mg PO TID [facility] Last Admin: 04/21/17 18:42 Dose: 0.1 mg Cyanocobalamin (Vitamin B12 1000 Mcg Tab) 1,000 mcg PO DAILY [facility] Last Admin: 04/21/17 15:55 Dose: 1,000 mcg Diphenhydramine HCl (Benadryl) 50 mg PO HS PRN PRN Reason: Insomnia Last Admin: 04/19/17 21:35 Dose: 50 mg Doxercalciferol (Hectorol) 1 mcg IV MWF [facility] Last Admin: 04/21/17 09:51 Dose: 1 mcg Insulin Detemir (Levemir) 20 unit SC HS [facility] Last Admin: 04/21/17 22:30 Dose: 20 unit Insulin Human Regular (Humulin R Med) 0 units SC [facility] PRN Reason: Protocol Last Admin: 04/21/17 22:25 Dose: Not Given Isosorbide Mononitrate (Imdur) 30 mg PO DAILY [facility] Last Admin: 04/21/17 14:38 Dose: Not Given Losartan Potassium (Cozaar) 100 mg PO DAILY [facility] Last Admin: 04/21/17 15:56 Dose: 100 mg Metoprolol Tartrate (Lopressor) 25 mg PO BID [facility] Last Admin: 04/21/17 18:42 Dose: 25 mg Ondansetron HCl (Zofran Inj) 4 mg IVP Q6H PRN PRN Reason: Nausea/Vomiting Last Admin: 04/18/17 21:53 Dose: 4 mg Pantoprazole Sodium (Protonix Ec Tab) 40 mg PO Q12 [facility] Last Admin: 04/21/17 21:03 Dose: 40 mg Polyethylene Glycol (Miralax) 17 gm PO DAILY [facility] Last Admin: 04/21/17 15:59 Dose: Not Given Pregabalin (Lyrica) 75 mg PO BID [facility] Last Admin: 04/21/17 18:42 Dose: 75 mg Vancomycin HCl (Vancocin 25 Mg/Ml (Oral Use)) 125 mg PO QID [facility] PRN Reason: Protocol Last Admin: 04/21/17 22:22 Dose: 125 mg Vitamin B Complex/Vit C/Folic Acid (Nephro-Eleni) 1 tab PO 0800 [facility] Last Admin: 04/21/17 15:56 Dose: 1 tab Zolpidem Tartrate (Ambien) 10 mg PO HS PRN; Protocol PRN Reason: Insomnia Last Admin: 04/21/17 21:03 Dose: 10 mg - Labs Labs: 04/21/17 07:30 04/21/17 07:30 PT 11.8 Seconds (9.9-11.8) 04/14/17 20:06 INR 1.09 (0.93-1.08) H 04/14/17 20:06 APTT 29.1 Seconds (23.7-30.8) 04/14/17 20:06 - Constitutional Appears: No Acute Distress - Head Exam Head Exam: ATRAUMATIC, NORMAL INSPECTION, NORMOCEPHALIC - Eye Exam Eye Exam: EOMI, Normal appearance, PERRL - ENT Exam ENT Exam: Mucous Membranes Moist, Normal Exam - Respiratory Exam Respiratory Exam: Clear to Ausculation Bilateral, NORMAL BREATHING PATTERN. absent: Rales - Cardiovascular Exam Cardiovascular Exam: REGULAR RHYTHM, +S1, +S2. absent: Murmur - GI/Abdominal Exam GI & Abdominal Exam: Soft, Normal Bowel Sounds. absent: Tenderness - Extremities Exam Additional comments: r transmetatarsal amputation - Neurological Exam Neurological Exam: Alert, Awake, CN II-XII Intact, Normal Gait, Oriented x3 - Psychiatric Exam Psychiatric exam: Normal Affect, Normal Mood - Skin Skin Exam: Dry, Intact, Normal Color, Warm Assessment and Plan - Assessment and Plan (Free Text) Assessment: 56 M with a PMHx of DM, HTN, CAD s/p stents, CVA, and ESRD on HD admitted with complaints of dark emesis and evaluated for concerns of upper GI bleed. Pt course complicated by sepsis with Klebsiella bacteremia (HD cath likely source) . C.diff on vancomycin po day 5, pseudomonas bacteremia, elevated troponins, and anemia. 1. Hematemesis -S/P 2 units PRBCs 04/19/17, no further signs of active blood loss -H/H Stable -Diet: HHD -Continue protonix 40mg PO Q12H -Zofran PRN for N/V -GI, consulted, recommending EGD and colonoscopy as outpatient 2. Sepsis likely 2/2 Line infection, possible Right Lower Lobe Pneumonia -S/P permacath removal with IR and temporary HD catheter placement s/p Merrem tx -Blood cx (04/17) grew pseudomonas, resistent to cefazolin, will discontinue and start patient on Ciprofloxacin or as per ID recommendations -Blood cx (04/19) showing no growth x 48 hours -Catheter tip cultures showing no growth -ID consulted, all recommendations appreciated 3. C diff colitis -CT Abdomen/Pelvis showed mild colitis vs underdistention -C diff antigen (+), Toxin (-) -Vancomycin 125mg QID PO (day 5) (will need 10-14 days of treatment) 4. ESRD recently placed on HD -Patient HD schedule is currently MWF -F/U am labs -Will discuss with ID when patient can go for permacath placement -Will continue to monitor electrolytes with daily CMP -Nephrology consulted, all recommendations appreciated - will need permacath prior to dc 5. 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 Hypokalemia -F/U am labs -Continue to monitor 7. Hyponatremia -Patient is ESRD on HD, will continue to monitor 8. DM2 -Humulin ISS-Medium -Levemir 20u SC HS -Fingersticks ACHS 9. Peripheral Neuropathy -Continue Lyrica 10. Urinary retention -resolved, Macias in place, voiding 11. GI/DVT Prophylaxis -Protonix/scd Seen reviewed and discussed with attending <Marty Muir - Last Filed: 04/22/17 14:39> Objective - Vital Signs/Intake and Output Vital Signs (last 24 hours): Temp Pulse Resp BP Pulse Ox 97.4 F L 63 20 164/72 H 97 04/22/17 12:00 04/22/17 12:00 04/22/17 12:00 04/22/17 12:00 04/21/17 23:33 Intake and Output: 04/22/17 04/22/17 06:59 18:59 Intake Total 2940 Output Total 5450 Balance -2510 - Medications Medications: Current Medications Amlodipine Besylate (Norvasc) 10 mg PO DAILY [facility] Last Admin: 04/22/17 11:02 Dose: 10 mg Atorvastatin Calcium (Lipitor) 40 mg PO HS [facility] Last Admin: 04/21/17 21:02 Dose: 40 mg Ciprofloxacin (Cipro) 250 mg PO Q12 [facility] PRN Reason: Protocol Stop: 04/29/17 22:01 Clonidine HCl (Catapres) 0.1 mg PO TID [facility] Last Admin: 04/22/17 11:01 Dose: 0.1 mg Cyanocobalamin (Vitamin B12 1000 Mcg Tab) 1,000 mcg PO DAILY [facility] Last Admin: 04/22/17 11:03 Dose: 1,000 mcg Diphenhydramine HCl (Benadryl) 50 mg PO HS PRN PRN Reason: Insomnia Last Admin: 04/19/17 21:35 Dose: 50 mg Doxercalciferol (Hectorol) 1 mcg IV MWF [facility] Last Admin: 04/21/17 09:51 Dose: 1 mcg Insulin Detemir (Levemir) 20 unit SC HS [facility] Last Admin: 04/21/17 22:30 Dose: 20 unit Insulin Human Regular (Humulin R Med) 0 units SC ACHS [facility] PRN Reason: Protocol Last Admin: 04/22/17 12:11 Dose: Not Given Isosorbide Mononitrate (Imdur) 30 mg PO DAILY [facility] Last Admin: 04/22/17 11:03 Dose: 30 mg Losartan Potassium (Cozaar) 100 mg PO DAILY [facility] Last Admin: 04/22/17 11:03 Dose: 100 mg Metoprolol Tartrate (Lopressor) 25 mg PO BID [facility] Last Admin: 04/22/17 11:02 Dose: 25 mg Ondansetron HCl (Zofran Inj) 4 mg IVP Q6H PRN PRN Reason: Nausea/Vomiting Last Admin: 04/18/17 21:53 Dose: 4 mg Pantoprazole Sodium (Protonix Ec Tab) 40 mg PO Q12 [facility] Last Admin: 04/22/17 11:02 Dose: 40 mg Polyethylene Glycol (Miralax) 17 gm PO DAILY [facility] Last Admin: 04/22/17 11:03 Dose: Not Given Pregabalin (Lyrica) 75 mg PO BID [facility] Last Admin: 04/22/17 11:01 Dose: 75 mg Vancomycin HCl (Vancocin 25 Mg/Ml (Oral Use)) 125 mg PO QID [facility] PRN Reason: Protocol Last Admin: 04/22/17 11:04 Dose: 125 mg Vitamin B Complex/Vit C/Folic Acid (Nephro-Eleni) 1 tab PO 0800 [facility] Last Admin: 04/22/17 08:08 Dose: 1 tab Zolpidem Tartrate (Ambien) 10 mg PO HS PRN; Protocol PRN Reason: Insomnia Last Admin: 04/21/17 21:03 Dose: 10 mg - Labs Labs: 04/22/17 07:18 04/22/17 07:30 PT 11.8 Seconds (9.9-11.8) 04/14/17 20:06 INR 1.09 (0.93-1.08) H 04/14/17 20:06 APTT 29.1 Seconds (23.7-30.8) 04/14/17 20:06 Attending/Attestation - Attestation I have personally seen and examined this patient.: Yes I have fully participated in the care of the patient.: Yes I have reviewed all pertinent clinical information, including history, physical exam and plan: Yes Notes (Text): I have seen and examined patient with senior medical technologist. Agree with the above note with the following additions/ exceptions: Briefly this is 56 year old male with a past medical history significant for hypertension, DM-2, CAD S/P CABG and stents , ESRD on hemodialysis, Nephrotic syndrome, anemia, secondary hyperparathyroidism, Marijuana abuse who was admitted for transient episode of hematemesis and required 2 units of prbc. Today, patient denies any complaints. Macias is in place as he failed voiding trial yesterday. Will consult urology. He had troponins elevation and EKG changes. Stress test was done which showed fixed defect. As there was a discrepancy in EF between echo and stress test, MUGA scan was done today to accurately identify EF. Patient is not a candidate for antiplatelet therapy due to GI bleeding. Plan for outpatient EGD and colonoscopy. He was found to have HCAP on meropenem. Blood culture from HD catheter grew K pneumonia and second one grew psedomonas. He is on PO cipro. Procal elevated. Repeat cultures negative. Stool for cdiff toxin is positive and patient remains on PO vanco. Patient had temporary catheter in place and plan for permacath placement on monday. He cannot be discharged prior to permacath placement as HD units does not accept non tunneled catheter as an outpatient. Continue Lyrica for neuropathic pain. Management plan was discussed in detail with patient. Upon discharge patient will follow up with Dr Ward. Dr Marty Muir
[2017-04-22] MEDS: Multivitamin Vitamin B Complex (Nephro-Vite) Tab PO SCH (08:08)
[2017-04-22] MEDS: Insulin Reg-MEDIUM-Coverage SC SCH ×4 (08:08→21:12)
[2017-04-22 08:11] LABS: BASO # 0.04 K/mm3 (0.0-2.0); BASO % 0.6 % (0.0-3.0); EOS # 0.1 (0.0-0.7); EOS % 2.2 % (1.5-5.0); GRAN # 3.42 (1.4-6.5); GRAN % 54.4 % (50.0-68.0); HEMATOCRIT 29.7 % (42.0-52.0); LYMPH # 2.3 (1.2-3.4); MEAN CELL VOLUME 83.4 fl (80.0-105.0); MEAN CORPUSCULAR HEMOGLOBIN 27.5 pg (25.0-35.0); MEAN PLATELET VOLUME 10.2 fl (7.0-11.0); MONO # 0.4 (0.1-0.6); MONO % 6.8 % (1.0-6.0); RED CELL DISTRIBUTION WIDTH 15.4 % (11.5-14.5); WHITE BLOOD COUNT 6.3 10^3/ul (4.5-11.0)
[2017-04-22 08:12] LABS: ALB/GLOB RATIO 1.1 (1.1-1.8); BILIRUBIN,TOTAL 0.3 mg/dL (0.2-1.3); CALCIUM 7.5 mg/dL (8.4-10.5); POTASSIUM 3.5 mmol/L (3.6-5.0); TOTAL PROTEIN 5.1 g/dL (5.8-8.3)
[2017-04-22] MEDS: Pantoprazole 40 mg EC Tab PO SCH ×2 (11:02→21:38)
[2017-04-22] MEDS: POLYETHYLENE GLYCOL 3350 17 GM/Dose PACKET PO SCH (11:03)
[2017-04-22] MEDS: Vancomycin 25 MG/ML PO SCH ×3 (11:04→21:39)
--- NOTE | 2017-04-22 13:15 | CP.PCM.PN ---
Subjective - Date & Time of Evaluation Date of Evaluation: 04/22/17 Time of Evaluation: 13:13 - Subjective Subjective: seen and examined no complaints Objective - Vital Signs/Intake and Output Vital Signs (last 24 hours): Temp Pulse Resp BP Pulse Ox 97.4 F L 63 20 164/72 H 97 04/22/17 12:00 04/22/17 12:00 04/22/17 12:00 04/22/17 12:00 04/21/17 23:33 Intake and Output: 04/22/17 04/22/17 06:59 18:59 Intake Total 2940 Output Total 5450 Balance -2510 - Medications Medications: Current Medications Amlodipine Besylate (Norvasc) 10 mg PO DAILY [facility] Last Admin: 04/22/17 11:02 Dose: 10 mg Atorvastatin Calcium (Lipitor) 40 mg PO HS [facility] Last Admin: 04/21/17 21:02 Dose: 40 mg Ciprofloxacin (Cipro) 250 mg PO Q12 [facility] PRN Reason: Protocol Stop: 04/29/17 22:01 Clonidine HCl (Catapres) 0.1 mg PO TID [facility] Last Admin: 04/22/17 11:01 Dose: 0.1 mg Cyanocobalamin (Vitamin B12 1000 Mcg Tab) 1,000 mcg PO DAILY [facility] Last Admin: 04/22/17 11:03 Dose: 1,000 mcg Diphenhydramine HCl (Benadryl) 50 mg PO PRN PRN Reason: Insomnia Last Admin: 04/19/17 21:35 Dose: 50 mg Doxercalciferol (Hectorol) 1 mcg IV MWF [facility] Last Admin: 04/21/17 09:51 Dose: 1 mcg Insulin Detemir (Levemir) 20 unit SC [facility] Last Admin: 04/21/17 22:30 Dose: 20 unit Insulin Human Regular (Humulin R Med) 0 units SC [facility] PRN Reason: Protocol Last Admin: 04/22/17 12:11 Dose: Not Given Isosorbide Mononitrate (Imdur) 30 mg PO DAILY [facility] Last Admin: 04/22/17 11:03 Dose: 30 mg Losartan Potassium (Cozaar) 100 mg PO DAILY [facility] Last Admin: 04/22/17 11:03 Dose: 100 mg Metoprolol Tartrate (Lopressor) 25 mg PO BID [facility] Last Admin: 04/22/17 11:02 Dose: 25 mg Ondansetron HCl (Zofran Inj) 4 mg IVP Q6H PRN PRN Reason: Nausea/Vomiting Last Admin: 04/18/17 21:53 Dose: 4 mg Pantoprazole Sodium (Protonix Ec Tab) 40 mg PO Q12 [facility] Last Admin: 04/22/17 11:02 Dose: 40 mg Polyethylene Glycol (Miralax) 17 gm PO DAILY [facility] Last Admin: 04/22/17 11:03 Dose: Not Given Pregabalin (Lyrica) 75 mg PO BID [facility] Last Admin: 04/22/17 11:01 Dose: 75 mg Vancomycin HCl (Vancocin 25 Mg/Ml (Oral Use)) 125 mg PO QID [facility] PRN Reason: Protocol Last Admin: 04/22/17 11:04 Dose: 125 mg Vitamin B Complex/Vit C/Folic Acid (Nephro-Eleni) 1 tab PO 0800 [facility] Last Admin: 04/22/17 08:08 Dose: 1 tab Zolpidem Tartrate (Ambien) 10 mg PO HS PRN; Protocol PRN Reason: Insomnia Last Admin: 04/21/17 21:03 Dose: 10 mg - Labs Labs: 04/22/17 07:18 04/22/17 07:30 PT 11.8 Seconds (9.9-11.8) 04/14/17 20:06 INR 1.09 (0.93-1.08) H 04/14/17 20:06 APTT 29.1 Seconds (23.7-30.8) 04/14/17 20:06 - Constitutional Appears: Non-toxic - Head Exam Head Exam: ATRAUMATIC - Eye Exam Eye Exam: Normal appearance - ENT Exam ENT Exam: Normal Exam - Neck Exam Neck Exam: Normal Inspection - Respiratory Exam Respiratory Exam: NORMAL BREATHING PATTERN - Cardiovascular Exam Cardiovascular Exam: +S1, +S2 - GI/Abdominal Exam GI & Abdominal Exam: Normal Bowel Sounds - Extremities Exam Additional comments: no edema - Neurological Exam Neurological Exam: Alert, Oriented x3 - Psychiatric Exam Psychiatric exam: Normal Mood - Skin Skin Exam: Warm Assessment and Plan - Assessment and Plan (Free Text) Assessment: K Pneumonia/pseudomonas bacteremia/sepsis, suspect permacath with tunnel infection as the source Anemia of acute blood loss, GI source as likely cause Diabetic chronic Kidney Disease (E11.22) with nephrotic syndrome Hypertensive Chronic Kidney Disease (I12.0) End stage renal disease (N18.6) dependence on hemodialysis (Z99.2) (mwf) via permacath Anemia (D64.9), Secondary Hyperparathyroidism (E21.1), HTN (I12.0) uncontrolled (? compliance to meds) Hypokalemia, Vit D deficiency, active Marijuana abuse. Abnormal Stress test LVEF 29% and regional wall motion abnormality : cardiomyopathy. Hx of CAD s/p CABG Plan: next hd monday on aranesp hgb ok Continue with hectorol bp reasonably controlled will need permacath replaced early next week
--- NOTE | 2017-04-22 15:19 | PN ---
DATE: 04/22/2017 LOCATION: The patient in room 260, bed 1. REASON FOR CONSULTATION: Followup positive troponins, sepsis, GI bleeding, CABG. SUBJECTIVE: The patient is lying flat in bed without chest pain, shortness of breath, or palpitation. PHYSICAL EXAMINATION: VITAL SIGNS: Blood pressure 131/68, respiratory 20, pulse 57, the patient is afebrile. HEENT: Head is normocephalic. Eyes: Pupils are normal. Conjunctiva is slightly pale. NECK: JVP low. Carotid equal. Thorax, AP diameter normal. LUNGS: Clear. CARDIOVASCULAR: S1 and S2. ABDOMEN: Soft, nontender. No organomegaly. Bowel sounds are normal. EXTREMITIES: No clubbing. No cyanosis. LABORATORY DATA: WBC 6.3, hemoglobin 9.8, hematocrit 29.7, platelet 219. Sodium 135, potassium 3.5, BUN 10, creatinine 3.5. Random sugar 162, AST and ALT normal. Total protein 5.1, albumin 2.7, calcium 7.5. DIAGNOSIS: Coronary artery disease, status post angioplasty in [facility], coronary artery bypass surgery, gastrointestinal bleeding, severe anemia, borderline troponin positive 0.25 and 0.16, end-stage renal failure on dialysis. Stress test done on this admission negative for ischemia, left ventricular ejection fraction 29%, while on echo on 03/26/2017 ejection fraction was 48%. PLAN: Since the discrepancy in ejection fraction of echo and stress test were reordered and MUGA scan. In the meantime, the patient continue on dialysis, and medication, which he is getting including Clonidine and Cipro, Losartan, isosorbide mononitrate, insulin, Lipitor, metoprolol, Lyrica, Protonix, vancomycin 125 mg p.o. q.i.d. We will continue the medications. The patient has no arrhythmia on monitor so telemetry can be discontinued. We will follow. Corey Shine MD
--- NOTE | 2017-04-22 17:10 | PN ---
DATE: 04/22/2017 SUBJECTIVE: The patient is in bed in no acute distress. He was seen earlier this morning. No fever or chills. PHYSICAL EXAMINATION: VITAL SIGNS: Temperature 98, blood pressure 130/60, and respiratory rate 18. HEENT: Unremarkable. NECK: Supple. LUNGS: Decreased breath sounds. HEART: Normal S1 and S2. ABDOMEN: Soft, nontender. No organomegaly. No rebound. No guarding. No masses. LABORATORY DATA: White count of 6.3, hemoglobin of 9, and platelets of 219. Chemistries reveals a BUN of 10, creatinine of 3.5, and the patient's procalcitonin is 10. Microbiology reveals a blood culture initially of sensitive Klebsiella pneumoniae and repeat blood culture showing pseudomonas, and progress note is reviewed. ASSESSMENT AND PLAN: This is a 56-year-old male admitted with sepsis with Klebsiella and pseudomonas bacteremia and 2 separate cultures, status post removal of a tunnel catheter, postprocedure day #4. The patient is with diabetes, hypertension, end stage renal disease on hemodialysis now with a temporary access, coronary artery disease, history of coronary bypass graft, history of cerebrovascular accident, and rhabdomyolysis. Now we will place the patient on p.o. Cipro, would complete 7-10 days of p.o. Cipro and the patient is also on p.o. vancomycin, today is day #6 of p.o. vancomycin, would complete 7-10 days of that since the patient's stool Clostridium difficile from 04/17/2017 is a positive antigen, but negative toxin. Case discussed with Dr. Muir. Boyd Green MD
[2017-04-22] MEDS: Insulin Detemir 100 units/ml Vial (Levemir) SC SCH (21:11)
[2017-04-23] MEDS: Insulin Reg-MEDIUM-Coverage SC SCH ×4 (08:02→21:37)
[2017-04-23] MEDS: Multivitamin Vitamin B Complex (Nephro-Vite) Tab PO SCH (08:06)
[2017-04-23 08:15] LABS: BASO # 0.05 K/mm3 (0.0-2.0); BASO % 0.7 % (0.0-3.0); EOS # 0.2 (0.0-0.7); GRAN # 4.69 (1.4-6.5); GRAN % 62.2 % (50.0-68.0); HEMATOCRIT 28.6 % (42.0-52.0); LYMPH # 2.2 (1.2-3.4); LYMPH % 29.4 % (22.0-35.0); MEAN CELL VOLUME 84.6 fl (80.0-105.0); MEAN CORPUSCULAR HEMOGLOBIN 27.8 pg (25.0-35.0); MEAN CORPUSCULAR HGB CONC 32.9 g/dl (31.0-37.0); MEAN PLATELET VOLUME 11.2 fl (7.0-11.0); MONO # 0.4 (0.1-0.6); MONO % 5.7 % (1.0-6.0); WHITE BLOOD COUNT 7.5 10^3/ul (4.5-11.0)
[2017-04-23 08:36] LABS: ALB/GLOB RATIO 1.1 (1.1-1.8); BILIRUBIN,TOTAL 0.3 mg/dL (0.2-1.3); CALCIUM 7.5 mg/dL (8.4-10.5); POTASSIUM 3.7 mmol/L (3.6-5.0)
[2017-04-23] MEDS: Pantoprazole 40 mg EC Tab PO SCH ×2 (11:31→21:35)
[2017-04-23] MEDS: POLYETHYLENE GLYCOL 3350 17 GM/Dose PACKET PO SCH (11:31)
[2017-04-23] MEDS: Vancomycin 25 MG/ML PO SCH ×3 (11:32→21:36)
--- NOTE | 2017-04-23 12:28 | PN ---
DATE: 04/23/2017 LOCATION: The patient in room 260, bed 1. REASON FOR CONSULTATION AND FOLLOWUP: Positive troponin, sepsis, GI bleeding, CABG. SUBJECTIVE: The patient denies any chest pain, shortness of breath, palpitation. The patient is lying comfortably in bed without any cardiac symptoms. PHYSICAL EXAMINATION: VITAL SIGNS: Blood pressure 141/71, respiration 20, pulse 59, temperature 97.3. HEENT: Head is normocephalic. Pupils normal. Conjunctiva slightly pale. NECK: JVP low. Carotids equal. Thorax, AP diameter normal. LUNGS: Clear. CARDIOVASCULAR: S1 and S2. ABDOMEN: Soft, nontender. No organomegaly. Bowel sounds are normal. EXTREMITIES: No clubbing. No cyanosis. LABORATORY DATA: WBC is 7.5, hemoglobin 9.4, hematocrit 28.6, platelet 242. Sodium 132, potassium 3.7, BUN 18, creatinine 4.6, random sugar 219. AST and ALT normal. Total protein 5.0, albumin 2.6, both are low. DIAGNOSIS: Coronary artery disease status post angioplasty in [facility], coronary artery bypass surgery, gastrointestinal bleeding, severe anemia, borderline troponin elevated at 0.25 and 0.16, end-stage renal failure on dialysis. Stress test done on this admission did not show any ischemia, ejection fraction 29% while on echo on 03/26/2017, ejection fraction was 48%. PLAN: The patient is asymptomatic from a cardiac point of view. The patient had a MUGA scan yesterday, we will follow the report. In the meantime, we will continue present therapy with clonidine, Cipro, Losartan, isosorbide mononitrate, insulin, Lipitor, metoprolol, Lyrica, Protonix, vancomycin and we will continue to follow closely. Corey Shine MD
--- NOTE | 2017-04-23 15:29 | CP.PCM.PN ---
<Olivier Kumar - Last Filed: 04/23/17 15:23> Subjective - Date & Time of Evaluation Date of Evaluation: 04/23/17 Time of Evaluation: 07:50 - Subjective Subjective: IM Progress Note for Hospitalist Service Pt seen and examined at bedside. No acute complaints at this time, and no acute events reported overnight. Denies additional BM since yesterday, last BM was watery. Denies sensation of needing to move bowels and being unable; as per nursing attempted to move bowels on bedpan without success. Denies chest pain, shortness of breath, nausea/emesis, fevers/chills, new episodes of hematemesis, hemoptysis, fatigue/lack of energy, melena, or dizziness. Objective - Vital Signs/Intake and Output Vital Signs (last 24 hours): Temp Pulse Resp BP Pulse Ox 97.3 F L 60 20 152/73 H 98 04/23/17 05:20 04/23/17 11:30 04/23/17 05:20 04/23/17 11:30 04/23/17 05:20 Intake and Output: 04/23/17 04/23/17 06:59 18:59 Intake Total 420 Output Total 1500 Balance -1080 - Medications Medications: Current Medications Amlodipine Besylate (Norvasc) 10 mg PO DAILY [facility] Last Admin: 04/23/17 11:30 Dose: 10 mg Atorvastatin Calcium (Lipitor) 40 mg PO HS [facility] Last Admin: 04/22/17 21:38 Dose: 40 mg Ciprofloxacin (Cipro) 250 mg PO Q12 [facility] PRN Reason: Protocol Stop: 04/29/17 22:01 Last Admin: 04/23/17 11:31 Dose: 250 mg Clonidine HCl (Catapres) 0.1 mg PO TID [facility] Last Admin: 04/23/17 11:32 Dose: 0.1 mg Cyanocobalamin (Vitamin B12 1000 Mcg Tab) 1,000 mcg PO DAILY [facility] Last Admin: 04/23/17 11:31 Dose: 1,000 mcg Diphenhydramine HCl (Benadryl) 50 mg PO HS PRN PRN Reason: Insomnia Last Admin: 04/19/17 21:35 Dose: 50 mg Doxercalciferol (Hectorol) 1 mcg IV MWF [facility] Last Admin: 04/21/17 09:51 Dose: 1 mcg Insulin Detemir (Levemir) 20 unit SC HS [facility] Last Admin: 04/22/17 21:11 Dose: Not Given Insulin Human Regular (Humulin R Med) 0 units SC [facility] PRN Reason: Protocol Last Admin: 04/23/17 11:52 Dose: 3 units Isosorbide Mononitrate (Imdur) 30 mg PO DAILY [facility] Last Admin: 04/23/17 11:30 Dose: 30 mg Losartan Potassium (Cozaar) 100 mg PO DAILY [facility] Last Admin: 04/23/17 11:24 Dose: 100 mg Metoprolol Tartrate (Lopressor) 25 mg PO BID [facility] Last Admin: 04/23/17 11:30 Dose: 25 mg Ondansetron HCl (Zofran Inj) 4 mg IVP Q6H PRN PRN Reason: Nausea/Vomiting Last Admin: 04/18/17 21:53 Dose: 4 mg Pantoprazole Sodium (Protonix Ec Tab) 40 mg PO Q12 [facility] Last Admin: 04/23/17 11:31 Dose: 40 mg Polyethylene Glycol (Miralax) 17 gm PO DAILY [facility] Last Admin: 04/23/17 11:31 Dose: 17 gm Pregabalin (Lyrica) 75 mg PO BID [facility] Last Admin: 04/23/17 11:30 Dose: 75 mg Vancomycin HCl (Vancocin 25 Mg/Ml (Oral Use)) 125 mg PO QID [facility] PRN Reason: Protocol Last Admin: 04/23/17 11:32 Dose: 125 mg Vitamin B Complex/Vit C/Folic Acid (Nephro-Eleni) 1 tab PO 0800 [facility] Last Admin: 04/23/17 08:06 Dose: 1 tab Zolpidem Tartrate (Ambien) 10 mg PO HS PRN; Protocol PRN Reason: Insomnia Last Admin: 04/22/17 21:38 Dose: 10 mg - Labs Labs: 04/23/17 07:20 04/23/17 07:20 PT 11.8 Seconds (9.9-11.8) 04/14/17 20:06 INR 1.09 (0.93-1.08) H 04/14/17 20:06 APTT 29.1 Seconds (23.7-30.8) 04/14/17 20:06 - Additional Findings Additional findings: - Constitutional Appears: No Acute Distress, Resting in bed comfortably - Head Exam Head Exam: ATRAUMATIC, NORMAL INSPECTION, NORMOCEPHALIC - Eye Exam Eye Exam: EOMI, Normal appearance. Absent: Scleral icterus, conjunctival injection - ENT Exam ENT Exam: Mucous Membranes Moist, Normal Exam - Respiratory Exam Respiratory Exam: Clear to Ausculation Bilateral, NORMAL BREATHING PATTERN. absent: Rales/Ronchi/Wheezes, JVD, Norman cyanosis - Cardiovascular Exam Cardiovascular Exam: RRR, +S1, +S2 (prominent S2). absent: Murmur, Tachycardia , Bradycardia - GI/Abdominal Exam GI & Abdominal Exam: Soft, Normal Bowel Sounds. absent: Tenderness, Rigid, Firm - Extremities Exam Extremities Exam: R transmetatarsal amputation, intact L foot, no pedal edema bilaterally, unable to palpate bilateral dorsalis pedis/posterior tibial pulses , scarring at site of (likely) prior bypass procedures; NO AV fistula access for HD - Neurological Exam Neurological Exam: Alert, Awake, Moving all extremities spontaneously, following commands appropriately - Psychiatric Exam Psychiatric exam: Normal Affect, Normal Mood - Skin Skin Exam: Dry, Intact, Normal Color, Warm; new Temporary HD catheter at left upper chest Assessment and Plan - Assessment and Plan (Free Text) Assessment: This is a 56 yo M with PMH of DM, HTN, CAD s/p stents, CVA, and ESRD on HD (MWF) admitted with complaints of dark emesis and evaluated for concerns of upper GI bleed. Pt course complicated by sepsis with Klebsiella bacteremia ( HD cath likely source), s/p permacath removal and temporary HD cath placement, pending new permacath placement. Plan: 1. Hematemesis -S/P 2 units PRBCs 04/19/17, no further signs of active blood loss -Hgb, 9.4 today (was 9.8) -Diet: HHD -Continue protonix 40mg PO Q12H -Zofran PRN for N/V -GI, consulted, recommending EGD and colonoscopy as outpatient 2. Sepsis likely 2/2 Line infection, possible Right Lower Lobe Pneumonia -S/P permacath removal with IR and temporary HD catheter placement -continue Merrem tx -Blood cx (04/17) grew pseudomonas, resistent to cefazolin, will discontinue and start patient on Ciprofloxacin or as per ID recommendations -Blood cx (04/19) showing no growth x 4 days -Catheter tip cultures showing no growth -ID consulted, all recommendations appreciated 3. C diff colitis -CT Abdomen/Pelvis showed mild colitis vs underdistention -C diff antigen (+), Toxin (-) -Vancomycin 125mg QID PO (day 7), needs 10-14 days of treatment per ID 4. ESRD on HD -Patient HD schedule is currently MWF -electrolytes wnl today (pseudo-hypo Ca, corrects to low normal), continue to monitor -Will discuss with ID when patient can go for permacath placement -Nephrology consulted, all recommendations appreciated -Need new permacath prior to dc 5. CAD s/p LA with stent placement less than one year ago -EKG shows NSR, septal infarct & inferior infarct of indeterminate age on admission -Serial troponins peaked at 0.33 downtrending on following 3 trops -Pt not a candidate for anticoagulation/antiplatelet or laboratory inspector in setting of acute GI bleed unless EKG shows active sinus ischemia and infarcting, per cardio -Stress test showing mod to severe LV dysfunction with diffuse hypokinesis and paradoxical septum, LVEF 29%; due to discrepancy with echo, MUGA scan obtained, pending read -Continue lipitor 40mg HS, clonidine 0.1mg TID and Cozaar 100mg daily -Lopressor 25mg BID -Continue Imdur -Cardiology consulted, all recommendations appreciated 6. Hypokalemia: improved -3.7 today -Continue to monitor 7. Hyponatremia: improved -Patient is ESRD on HD, will continue to monitor 8. DM2 -Humulin ISS-Medium -Levemir 20u SC HS -Fingersticks ACHS 9. Peripheral Neuropathy -Continue Lyrica 10. Urinary retention -failed voiding trial yesterday, Urology consulted, appreciate all recs Dispo: Telemetry, pending transfer to Med/Surg, pending permacath placement, continuing abx, HD MW FEN: HHD Access: Temporary HD cath, Peripheral IV Consults: IR, ID, Nephro, Cardio, Urology Ppx: Protonix for GI, SCDs for DVT Patient seen, reviewed, and discussed with attending, Dr. Marty Muir <Marty Muir - Last Filed: 04/25/17 15:50> Objective - Vital Signs/Intake and Output Vital Signs (last 24 hours): Temp Pulse Resp BP Pulse Ox 98.5 F 57 L 24 115/68 96 04/25/17 09:19 04/25/17 14:07 04/25/17 09:19 04/25/17 14:07 04/25/17 09:19 Intake and Output: 04/25/17 04/25/17 06:59 18:59 Intake Total 1140 960 Output Total 2000 450 Balance -860 510 - Medications Medications: Current Medications Acetaminophen (Tylenol 325mg Tab) 650 mg PO Q4 PRN PRN Reason: Pain, Mild (1-3) Amlodipine Besylate (Norvasc) 10 mg PO DAILY [facility] Last Admin: 04/25/17 09:09 Dose: 10 mg Atorvastatin Calcium (Lipitor) 40 mg PO HS [facility] Last Admin: 04/24/17 21:55 Dose: 40 mg Ciprofloxacin (Cipro) 250 mg PO Q12 [facility] PRN Reason: Protocol Stop: 04/29/17 22:01 Last Admin: 04/25/17 09:08 Dose: 250 mg Clonidine HCl (Catapres) 0.1 mg PO TID [facility] Last Admin: 04/25/17 14:07 Dose: Not Given Cyanocobalamin (Vitamin B12 1000 Mcg Tab) 1,000 mcg PO DAILY [facility] Last Admin: 04/25/17 09:08 Dose: 1,000 mcg Diphenhydramine HCl (Benadryl) 50 mg PO HS PRN PRN Reason: Insomnia Last Admin: 04/19/17 21:35 Dose: 50 mg Doxercalciferol (Hectorol) 1 mcg IV MWF [facility] Last Admin: 04/24/17 14:42 Dose: 1 mcg Insulin Detemir (Levemir) 20 unit SC HS [facility] Last Admin: 04/24/17 21:55 Dose: 20 unit Insulin Human Regular (Humulin R Med) 0 units SC [facility] PRN Reason: Protocol Last Admin: 04/25/17 11:56 Dose: 3 units Isosorbide Mononitrate (Imdur) 60 mg PO DAILY [facility] Losartan Potassium (Cozaar) 100 mg PO DAILY [facility] Last Admin: 04/25/17 09:09 Dose: 100 mg Metoprolol Tartrate (Lopressor) 25 mg PO BID [facility] Last Admin: 04/25/17 09:09 Dose: 25 mg Ondansetron HCl (Zofran Inj) 4 mg IVP Q6H PRN PRN Reason: Nausea/Vomiting Last Admin: 04/18/17 21:53 Dose: 4 mg Pantoprazole Sodium (Protonix Ec Tab) 40 mg PO Q12 [facility] Last Admin: 04/25/17 09:09 Dose: 40 mg Polyethylene Glycol (Miralax) 17 gm PO DAILY [facility] Last Admin: 04/25/17 09:08 Dose: 17 gm Pregabalin (Lyrica) 75 mg PO BID [facility] Last Admin: 04/25/17 09:08 Dose: 75 mg Tamsulosin HCl (Flomax) 0.4 mg PO DAILY [facility] Last Admin: 04/25/17 09:08 Dose: 0.4 mg Vancomycin HCl (Vancocin 25 Mg/Ml (Oral Use)) 125 mg PO QID [facility] PRN Reason: Protocol Last Admin: 04/25/17 14:01 Dose: 125 mg Vitamin B Complex/Vit C/Folic Acid (Nephro-Eleni) 1 tab PO 0800 [facility] Last Admin: 04/25/17 09:08 Dose: 1 tab Zolpidem Tartrate (Ambien) 10 mg PO HS PRN; Protocol PRN Reason: Insomnia Last Admin: 04/24/17 21:55 Dose: 10 mg - Labs Labs: 04/25/17 06:45 04/25/17 06:45 PT 11.8 Seconds (9.9-11.8) 04/14/17 20:06 INR 1.09 (0.93-1.08) H 04/14/17 20:06 APTT 29.1 Seconds (23.7-30.8) 04/14/17 20:06 Attending/Attestation - Attestation I have personally seen and examined this patient.: Yes I have fully participated in the care of the patient.: Yes I have reviewed all pertinent clinical information, including history, physical exam and plan: Yes Notes (Text): I have seen and examined patient with medical dermatologist. Agree with the above note with the following additions/ exceptions: Briefly this is 56 year old male with a past medical history significant for hypertension, DM-2, CAD S/P CABG and stents , ESRD on hemodialysis, Nephrotic syndrome, anemia, secondary hyperparathyroidism, Marijuana abuse who was admitted for transient episode of hematemesis and required 2 units of prbc. Today, patient denies any complaints. Macias is in place as he failed voiding trial . Will consult urology. He had troponins elevation and EKG changes. Stress test was done which showed fixed defect. As there was a discrepancy in EF between echo and stress test, MUGA scan was done. Result is pending at this time. Patient is not a candidate for antiplatelet therapy due to GI bleeding. Plan for outpatient EGD and colonoscopy. He was found to have HCAP on meropenem. Blood culture from HD catheter grew K pneumonia and second one grew psedomonas. He is on PO cipro. Procal elevated. Repeat cultures negative. Stool for cdiff toxin is positive and patient remains on PO vanco. Patient had temporary catheter in place and plan for permacath placement on monday. He cannot be discharged prior to permacath placement as HD units does not accept non tunneled catheter as an outpatient. Continue Lyrica for neuropathic pain. Management plan was discussed in detail with patient. Upon discharge patient will follow up with Dr Ward. Dr Marty Muir
[2017-04-23] MEDS: Insulin Detemir 100 units/ml Vial (Levemir) SC SCH (21:36)
--- NOTE | 2017-04-23 23:45 | PN ---
DATE: 04/23/2017 SUBJECTIVE: The patient was seen earlier today, in no acute distress, nontoxic. PHYSICAL EXAMINATION: VITAL SIGNS: Temperature is 97, blood pressure is 140/70, respiratory rate of 20. HEENT: Unremarkable. NECK: Supple. LUNGS: Decreased breath sounds. HEART: Normal S1 and S2. ABDOMEN: Soft, nontender. LABORATORY DATA: Reveals the patient's white count is 7.5, hemoglobin of 9, BUN of 18, creatinine of 4.6. Procalcitonin is 10. Urinalysis is noted. Blood cultures are negative. Repeat blood cultures. Review of orders reveal the patient is on p.o. Cipro and p.o. vancomycin. Dr. Feliz Kwan's note is reviewed. ASSESSMENT AND PLAN: This is a 56-year-old male with sepsis with Klebsiella and pseudomonas bacteremia, 2 separate cultures, status post removal of a tunnel catheter, postprocedure day #5 and the patient with diabetes, hypertension, end-stage renal disease on hemodialysis with temporary access, coronary artery disease, history of coronary bypass graft and history of cerebrovascular accident, rhabdomyolysis, on p.o. Cipro, would complete 7-10 days of p.o. Cipro and today is day #7 of p.o. vancomycin, would complete 7-10 days of that. Case discussed with PMD. Boyd Green MD
[2017-04-24 07:16] LABS: BASO # 0.04 K/mm3 (0.0-2.0); BASO % 0.6 % (0.0-3.0); EOS # 0.2 (0.0-0.7); EOS % 2.5 % (1.5-5.0); GRAN # 4.6 (1.4-6.5); GRAN % 64.8 % (50.0-68.0); HEMATOCRIT 28.5 % (42.0-52.0); LYMPH # 1.8 (1.2-3.4); MEAN CELL VOLUME 83.6 fl (80.0-105.0); MEAN CORPUSCULAR HEMOGLOBIN 27.3 pg (25.0-35.0); MEAN CORPUSCULAR HGB CONC 32.6 g/dl (31.0-37.0); MEAN PLATELET VOLUME 10.7 fl (7.0-11.0); MONO # 0.4 (0.1-0.6); MONO % 6.1 % (1.0-6.0); RED CELL DISTRIBUTION WIDTH 16.2 % (11.5-14.5); WHITE BLOOD COUNT 7.1 10^3/ul (4.5-11.0)
[2017-04-24 07:36] LABS: BILIRUBIN,TOTAL 0.6 mg/dL (0.2-1.3); CALCIUM 7.8 mg/dL (8.4-10.5); POTASSIUM 4.1 mmol/L (3.6-5.0)
[2017-04-24 07:44] LABS: TOTAL PROTEIN 5.3 g/dL (5.8-8.3)
[2017-04-24] MEDS: Multivitamin Vitamin B Complex (Nephro-Vite) Tab PO SCH (08:11)
[2017-04-24] MEDS: Insulin Reg-MEDIUM-Coverage SC SCH ×4 (08:14→21:55)
[2017-04-24] MEDS: Pantoprazole 40 mg EC Tab PO SCH ×2 (10:52→21:55)
[2017-04-24] MEDS: POLYETHYLENE GLYCOL 3350 17 GM/Dose PACKET PO SCH (10:53)
[2017-04-24] MEDS: Vancomycin 25 MG/ML PO SCH ×4 (10:53→21:58)
--- NOTE | 2017-04-24 14:01 | CP.PCM.PN ---
Subjective - Date & Time of Evaluation Date of Evaluation: 04/24/17 Time of Evaluation: 13:58 - Subjective Subjective: Follow up Nephrology Consultation Note Assessment: Stable K Pneumonia/pseudomonas bacteremia/sepsis, suspect permacath with tunnel infection as the source Anemia of acute blood loss, GI source as likely cause Diabetic chronic Kidney Disease (E11.22) with nephrotic syndrome Hypertensive Chronic Kidney Disease (I12.0) End stage renal disease (N18.6) dependence on hemodialysis (Z99.2) (mwf) via permacath Anemia (D64.9), Secondary Hyperparathyroidism (E21.1), HTN (I12.0) uncontrolled (? compliance to meds) Hypokalemia, Vit D deficiency, active Marijuana abuse. Abnormal Stress test LVEF 29% and regional wall motion abnormality : cardiomyopathy. Hx of CAD s/p CABG Urine retention C diff diarrhoea Plan: Will plan for dialysis today as per [facility] tim, Continue with Nephrovite 1 tab/ day. permacath placement by IR today. PRBC as needed for anemia. On BEREKET as Aransep 60 mcg weekly last Hb 9.3. TSAT 11 % Ferritin 511. hold IV iron due to sepsis Continue with hectorol 1 mcg with dialysis. Last PTH level 463. At home he is also on weekly Vit D. Phos on low side BP control with meds as ordered. w/up for sec HTN neg. Patient on RAAS anjelica as Losartan. ? compliance to med as BP usually high at presentation which gets better controlled in hospital shortly after. Glycemic control, Dialysis consistent diet Further work up/management as per primary team Dose meds/antibiotics (as per ID) for ESRD status. Avoid fleets enema/magnesium based laxatives. ID, cardiology and GI had evaluated him. had stress test done. plan for endoscopic eval as outpt per GI. stable for d/c from renal perspective once has a alf dialysis catheter. [pt admits to taking shower at home likely contributed to his line infection. He was educated in past not to shower and let catheter be exposed to water. it was reinforced to him again] Thanks for allowing me to participate in care of your patient. Will follow patient with you. Please call if any Qs. Dr Sancho Garrett Office: [phone] Subjective: Noted events overnight. Patients feels better. no further nausea/ vomiting. Denies chest pain, palpitation, shortness of breath, leg swelling. No urinary complaints but required catheter due to retention Physical Examination: General Appearance: Comfortable, in no acute respiratory distress, co- operative. Vitals reviewed and noted as below Lungs: Normal respiratory rate/effort. Breath sounds bilateral equal and clear Heart: Normal rate. s1s2 normal. No rub or gallop. Extremities: no edema. s/p forefoot amputation Neurological: Patient is alert, awake and oriented to person, place and time. No focal deficit. Strength bilateral appropriate and equal Skin: Warm and dry. Normal turgor. No rash. Palpitation: Normal elasticity for age Abdomen: Abdomen is soft. Bowel sounds +. There is no abdominal tenderness, no guarding/rigidity or organomegaly : kidney or bladder not palpable. has martinez Access: Lt IJ ap Labs/imaging reviewed. Past medical history, past surgical history, family history, social history, allergy reviewed Work up: CT chest/a/pelvis; reviewed. no pneumonia Aldosterone <1 renin 0.9 Metanephrine neg. renal artety doppler neg Objective - Vital Signs/Intake and Output Vital Signs (last 24 hours): Temp Pulse Resp BP Pulse Ox 98.4 F 61 20 161/82 H 97 04/24/17 08:19 04/24/17 08:19 04/24/17 08:19 04/24/17 08:19 04/24/17 08:19 Intake and Output: 04/24/17 04/24/17 06:59 18:59 Intake Total 780 Output Total 1850 Balance -1070 - Medications Medications: Current Medications Amlodipine Besylate (Norvasc) 10 mg PO DAILY [facility] Last Admin: 04/24/17 10:45 Dose: Not Given Atorvastatin Calcium (Lipitor) 40 mg PO HS [facility] Last Admin: 04/23/17 21:35 Dose: 40 mg Ciprofloxacin (Cipro) 250 mg PO Q12 [facility] PRN Reason: Protocol Stop: 04/29/17 22:01 Last Admin: 04/24/17 10:52 Dose: 250 mg Clonidine HCl (Catapres) 0.1 mg PO TID [facility] Last Admin: 04/24/17 10:44 Dose: Not Given Cyanocobalamin (Vitamin B12 1000 Mcg Tab) 1,000 mcg PO DAILY [facility] Last Admin: 04/23/17 11:31 Dose: 1,000 mcg Diphenhydramine HCl (Benadryl) 50 mg PO HS PRN PRN Reason: Insomnia Last Admin: 04/19/17 21:35 Dose: 50 mg Doxercalciferol (Hectorol) 1 mcg IV MWF [facility] Last Admin: 04/21/17 09:51 Dose: 1 mcg Insulin Detemir (Levemir) 20 unit SC HS [facility] Last Admin: 04/23/17 21:36 Dose: 20 unit Insulin Human Regular (Humulin R Med) 0 units SC ACHS [facility] PRN Reason: Protocol Last Admin: 04/24/17 08:14 Dose: 1 units Isosorbide Mononitrate (Imdur) 30 mg PO DAILY [facility] Last Admin: 04/24/17 10:53 Dose: Not Given Losartan Potassium (Cozaar) 100 mg PO DAILY [facility] Last Admin: 04/24/17 10:53 Dose: Not Given Metoprolol Tartrate (Lopressor) 25 mg PO BID [facility] Last Admin: 04/24/17 10:45 Dose: Not Given Ondansetron HCl (Zofran Inj) 4 mg IVP Q6H PRN PRN Reason: Nausea/Vomiting Last Admin: 04/18/17 21:53 Dose: 4 mg Pantoprazole Sodium (Protonix Ec Tab) 40 mg PO Q12 [facility] Last Admin: 04/24/17 10:52 Dose: 40 mg Polyethylene Glycol (Miralax) 17 gm PO DAILY [facility] Last Admin: 04/24/17 10:53 Dose: Not Given Pregabalin (Lyrica) 75 mg PO BID [facility] Last Admin: 04/24/17 10:52 Dose: 75 mg Vancomycin HCl (Vancocin 25 Mg/Ml (Oral Use)) 125 mg PO QID [facility] PRN Reason: Protocol Last Admin: 04/24/17 10:53 Dose: 125 mg Vitamin B Complex/Vit C/Folic Acid (Nephro-Eleni) 1 tab PO 0800 [facility] Last Admin: 04/24/17 08:11 Dose: 1 tab Zolpidem Tartrate (Ambien) 10 mg PO HS PRN; Protocol PRN Reason: Insomnia Last Admin: 04/23/17 21:35 Dose: 10 mg - Labs Labs: 04/24/17 05:50 04/24/17 05:50 PT 11.8 Seconds (9.9-11.8) 04/14/17 20:06 INR 1.09 (0.93-1.08) H 04/14/17 20:06 APTT 29.1 Seconds (23.7-30.8) 04/14/17 20:06
--- NOTE | 2017-04-24 14:29 | CARD ---
APPROVED REPORT INDICATION CAD Chest Pain CARDIAC RISK FACTORS CAD PROCEDURE The above named patient recieved 25.0 millicuries of Tc99m tagged red blood cells intravenously. After achieving equilibrium, gated imaging of 16/frame/cycle was performed utillizing Gamma camera interfaced with a digital computer and gated device. Gated imaging was then performed in the left anterior oblique, anterior, and the left lateral projections. Findings Left Ventricle: The quality of the study is good. The left ventricle is mildly enlarged in size with thickened myocardium. The right ventricle is normal in size. Wall motion study shows borderline normal contractility with paradoxical septal wall motion. RV wall motion is normal. The right atrium is dynamic. The remainder of the study is unremarkable. Impressions Borderline normal LV function with paradoxical septal wall motion. LVEF = 51%. Normal RV wall motion.
[2017-04-24] MEDS: Doxercalciferol 4 mcg/2 ml Inj IV SCH (14:42)
[2017-04-24] MEDS ORDERED: Midazolam 2 MG/2 ML VIAL ONE ×2 (15:45→16:12)
[2017-04-24] MEDS ORDERED: Lidocaine 2% Inj (20ml) ONE (15:45)
--- NOTE | 2017-04-24 18:09 | VASCULAR ---
PROCEDURE: Ultrasound and fluoroscopic tunneled right IJ dialysis catheter. Removal the patient's left temporary dialysis CT CLINICAL HISTORY: ESRD previously removed infected right IJ dialysis catheter. Needs tunneled catheter PHYSICIAN(S): Yousif Cortés M.D. TECHNIQUE: The relative risks and indications for the procedure were explained to the patient and informed written consent obtained. The patient was placed supine on the arteriography table and the right neck/chest was prepped and draped in the usual sterile fashion. 1% Xylocaine was used to anesthetize the skin and soft tissues at the puncture site. Conscious sedation and monitoring were provided throughout the procedure by a nurse. Under direct ultrasound guidance, the rightinternal jugular vein was punctured with a micropuncture set. A 0.035 Glidewire was advanced into the IVC. Sequential dilatation was performed with subsequent placement of a 28cm Shields II catheter with its tip in the right atrium. A retrograde tunnel below the right clavicle was performed. The catheter was trimmed and the hub attached. Both ports aspirate and inject easily. The catheter was secured and a dressing applied. The patient tolerated the procedure well. The patient's temporary left IJ dialysis catheter was prepped and draped usual sterile fashion. The catheter was removed and hemostasis obtained. The patient tolerated the procedure well IMPRESSION: 1. Ultrasound and fluoroscopically placed right IJ tunneled dialysis catheter. 2. Removal the patient's temporary left IJ dialysis catheter
--- NOTE | 2017-04-24 21:04 | PN ---
DATE: 04/24/2017 LOCATION: The patient's room 575, bed 2. REASON FOR CONSULTATION: Followup positive troponins, sepsis, GI bleeding, CABG. SUBJECTIVE: The patient denies chest pain, shortness of breath, or palpitations. The patient is having dialysis without any cardiac symptoms. PHYSICAL EXAMINATION VITAL SIGNS: Blood pressure is 148/78, respirations 18, pulse 58, temperature 98.1. HEENT: Head is normocephalic. Pupils normal. Conjunctiva are slightly pale. NECK: JVP low. Carotids equal. Thorax, AP diameter normal. LUNGS: Clear. CARDIOVASCULAR: S1 and S2. ABDOMEN: Soft, nontender. No organomegaly. Bowel sounds are normal. EXTREMITIES: No clubbing. No cyanosis. LABORATORY DATA: WBC 7.1, hemoglobin 9.3, hematocrit 28.5, platelets 246. Random sugar 169, AST and ALT normal, total protein 5.3, albumin 2.7 both are low. DIAGNOSES: Coronary artery disease status post angioplasty in [facility], coronary artery bypass surgery, gastrointestinal bleeding, severe anemia, borderline troponin elevated at 0.25 and 0.16, end-stage renal failure on dialysis. Stress test has been done to follow up on severe anemia and borderline troponin, elevation 0.25-0.16, maybe with end-stage renal failure in a patient on dialysis. Stress test done on this admission did not show any ischemia and ejection fraction was 29% while echocardiogram on 03/26/2017 showed ejection fraction of 48%. PLAN: The patient had a MUGA scan and it showed ejection fraction of 51%. We will continue current therapy. We will follow. Corey Shine MD
[2017-04-24] MEDS: Insulin Detemir 100 units/ml Vial (Levemir) SC SCH (21:55)
--- NOTE | 2017-04-24 23:43 | PN ---
DATE: 04/24/2017 SUBJECTIVE: The patient is in bed, in no acute distress, nontoxic, seen earlier. PHYSICAL EXAMINATION: VITAL SIGNS: Temperature is 97, blood pressure is 120/70 and respirations 16. HEENT: Unremarkable. NECK: Supple. LUNGS: Decreased breath sounds. HEART: Normal S1 and S2. ABDOMEN: Soft. LABORATORY DATA: Reveals the white count of 7.1, hemoglobin 9 and platelets of 246. Chemistry reveals a BUN of 25 and creatinine 5.4. Microbiology reveals the patient's blood culture are negative. ASSESSMENT AND PLAN: This is a 56-year-old male with sepsis with Klebsiella and Pseudomonas bacteremia, 2 separate cultures, status post removal of tunneled catheter and postprocedure day #6, with the patient diabetes, hypertension, end-stage renal disease on hemodialysis temporary access, coronary artery disease, history of coronary bypass graft and history of cerebrovascular accident and rhabdomyolysis. Currently on p.o. Cipro day #8 with completes 7-10 days of antibiotics. The patient review of medications reveals Cipro to be active. Boyd Green MD
--- NOTE | 2017-04-25 01:15 | CP.PCM.PN ---
<GAURAV DAHL - Last Filed: 04/25/17 01:12> Subjective - Date & Time of Evaluation Date of Evaluation: 04/24/17 Time of Evaluation: 07:30 - Subjective Subjective: Gaurav Dahl DO PGY1 - Medicine Progress Note Patient seen and examined at bedside. Nurse reports no acute events overnight. Patient is due to HD today, still has temporary catheter. Will request placement of a new permacath by IR prior to eventual discharge. Patient also still requiring indwelling martinez for urinary retention. Patient denies any F/C, CP, SOB, N/V/D/C, abdominal pain, dysuria, back pain. Objective - Vital Signs/Intake and Output Vital Signs (last 24 hours): Temp Pulse Resp BP Pulse Ox 98.3 F 66 20 158/68 H 97 04/24/17 23:30 04/24/17 23:30 04/24/17 23:30 04/24/17 23:30 04/24/17 23:30 Intake and Output: 04/24/17 04/25/17 18:59 06:59 Intake Total 780 Output Total 1000 Balance -220 - Medications Medications: Current Medications Acetaminophen (Tylenol 325mg Tab) 650 mg PO Q4 PRN PRN Reason: Pain, Mild (1-3) Amlodipine Besylate (Norvasc) 10 mg PO DAILY [facility] Last Admin: 04/24/17 10:45 Dose: Not Given Atorvastatin Calcium (Lipitor) 40 mg PO HS [facility] Last Admin: 04/24/17 21:55 Dose: 40 mg Ciprofloxacin (Cipro) 250 mg PO Q12 [facility] PRN Reason: Protocol Stop: 04/29/17 22:01 Last Admin: 04/24/17 21:55 Dose: 250 mg Clonidine HCl (Catapres) 0.1 mg PO TID [facility] Last Admin: 04/24/17 17:55 Dose: 0.1 mg Cyanocobalamin (Vitamin B12 1000 Mcg Tab) 1,000 mcg PO DAILY [facility] Last Admin: 04/24/17 19:33 Dose: 1,000 mcg Diphenhydramine HCl (Benadryl) 50 mg PO HS PRN PRN Reason: Insomnia Last Admin: 04/19/17 21:35 Dose: 50 mg Doxercalciferol (Hectorol) 1 mcg IV MWF [facility] Last Admin: 04/24/17 14:42 Dose: 1 mcg Insulin Detemir (Levemir) 20 unit SC HS [facility] Last Admin: 04/24/17 21:55 Dose: 20 unit Insulin Human Regular (Humulin R Med) 0 units SC [facility] PRN Reason: Protocol Last Admin: 04/24/17 21:55 Dose: Not Given Isosorbide Mononitrate (Imdur) 30 mg PO DAILY [facility] Last Admin: 04/24/17 10:53 Dose: Not Given Losartan Potassium (Cozaar) 100 mg PO DAILY [facility] Last Admin: 04/24/17 10:53 Dose: Not Given Metoprolol Tartrate (Lopressor) 25 mg PO BID [facility] Last Admin: 04/24/17 17:55 Dose: 25 mg Ondansetron HCl (Zofran Inj) 4 mg IVP Q6H PRN PRN Reason: Nausea/Vomiting Last Admin: 04/18/17 21:53 Dose: 4 mg Pantoprazole Sodium (Protonix Ec Tab) 40 mg PO Q12 [facility] Last Admin: 04/24/17 21:55 Dose: 40 mg Polyethylene Glycol (Miralax) 17 gm PO DAILY [facility] Last Admin: 04/24/17 10:53 Dose: Not Given Pregabalin (Lyrica) 75 mg PO BID [facility] Last Admin: 04/24/17 17:56 Dose: 75 mg Tamsulosin HCl (Flomax) 0.4 mg PO DAILY [facility] Last Admin: 04/24/17 19:33 Dose: 0.4 mg Vancomycin HCl (Vancocin 25 Mg/Ml (Oral Use)) 125 mg PO QID [facility] PRN Reason: Protocol Last Admin: 04/24/17 21:58 Dose: 125 mg Vitamin B Complex/Vit C/Folic Acid (Nephro-Eleni) 1 tab PO 0800 [facility] Last Admin: 04/24/17 08:11 Dose: 1 tab Zolpidem Tartrate (Ambien) 10 mg PO HS PRN; Protocol PRN Reason: Insomnia Last Admin: 04/24/17 21:55 Dose: 10 mg - Labs Labs: 04/24/17 05:50 04/24/17 05:50 PT 11.8 Seconds (9.9-11.8) 04/14/17 20:06 INR 1.09 (0.93-1.08) H 04/14/17 20:06 APTT 29.1 Seconds (23.7-30.8) 04/14/17 20:06 - Constitutional Appears: Non-toxic, No Acute Distress - Head Exam Head Exam: ATRAUMATIC, NORMOCEPHALIC - Eye Exam Eye Exam: EOMI, Normal appearance, PERRL - ENT Exam ENT Exam: Mucous Membranes Moist - Neck Exam Neck Exam: absent: Lymphadenopathy, Thyromegaly - Respiratory Exam Respiratory Exam: Clear to Ausculation Bilateral. absent: Rales, Rhonchi, Wheezes - Cardiovascular Exam Cardiovascular Exam: RRR, +S1, +S2 - GI/Abdominal Exam GI & Abdominal Exam: Soft. absent: Distended, Firm, Guarding, Rigid, Tenderness - Extremities Exam Extremities Exam: absent: Calf Tenderness, Pedal Edema - Neurological Exam Neurological Exam: Alert, Awake, Oriented x3 - Psychiatric Exam Psychiatric exam: Normal Affect, Normal Mood - Skin Skin Exam: Dry, Intact, Warm - Additional Findings Additional findings: Bandage over old permacath site in place, CDI. Temporary catheter in place, surrounding skin normal. Assessment and Plan - Assessment and Plan (Free Text) Assessment: This is a 56 yo M with PMH of DM, HTN, CAD s/p stents, CVA, and ESRD on HD (MW) admitted with complaints of dark emesis and evaluated for concerns of upper GI bleed. Pt course complicated by sepsis with Klebsiella bacteremia ( HD cath likely source), s/p permacath removal and temporary HD cath placement, pending new permacath placement. Now also noted to have urinary retention. Plan: 1. Hematemesis -S/P 2 units PRBCs 04/19/17, no further signs of active blood loss -H/H stable -Diet: HHD -Continue protonix 40mg PO Q12H -Zofran PRN for N/V -GI, consulted, recommending EGD and colonoscopy as outpatient 2. Sepsis likely 2/2 Line infection, possible Right Lower Lobe Pneumonia -S/P permacath removal with IR and temporary HD catheter placement -continue Merrem tx -Blood cx (04/17) grew pseudomonas, resistent to cefazolin, will discontinue and start patient on Ciprofloxacin or as per ID recommendations -Blood cx (04/19) showing no growth x 5 days -Catheter tip cultures showing no growth -ID consulted, all recommendations appreciated 3. C diff colitis -CT Abdomen/Pelvis showed mild colitis vs underdistention -C diff antigen (+), Toxin (-) -Vancomycin 125mg QID PO (day 8), needs 10-14 days of treatment per ID 4. ESRD on HD -Patient HD schedule is currently MWF -Nephrology consulted, all recommendations appreciated -Need new permacath prior to dc, consulted and spoke to IR (Yousif Cortés) today 5. 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 DM2 -Humulin ISS-Medium -Levemir 20u SC HS -Fingersticks ACHS 7. Peripheral Neuropathy -Continue Lyrica 8. Urinary retention -failed voiding trial despite adequate urinary output, Urology consulted, appreciate all recs -Urology (Bree) recommends starting flomax, then reattempting voiding trial on Monday Ppx: Protonix for GI, SCDs for DVT Patient seen, reviewed, and discussed with attending, Dr. Marty Muir <Marty Muir - Last Filed: 04/25/17 15:54> Objective - Vital Signs/Intake and Output Vital Signs (last 24 hours): Temp Pulse Resp BP Pulse Ox 98.5 F 57 L 24 115/68 96 04/25/17 09:19 04/25/17 14:07 04/25/17 09:19 04/25/17 14:07 04/25/17 09:19 Intake and Output: 04/25/17 04/25/17 06:59 18:59 Intake Total 1140 960 Output Total 2000 450 Balance -860 510 - Medications Medications: Current Medications Acetaminophen (Tylenol 325mg Tab) 650 mg PO Q4 PRN PRN Reason: Pain, Mild (1-3) Amlodipine Besylate (Norvasc) 10 mg PO DAILY [facility] Last Admin: 04/25/17 09:09 Dose: 10 mg Atorvastatin Calcium (Lipitor) 40 mg PO HS [facility] Last Admin: 04/24/17 21:55 Dose: 40 mg Ciprofloxacin (Cipro) 250 mg PO Q12 [facility] PRN Reason: Protocol Stop: 04/29/17 22:01 Last Admin: 04/25/17 09:08 Dose: 250 mg Clonidine HCl (Catapres) 0.1 mg PO TID [facility] Last Admin: 04/25/17 14:07 Dose: Not Given Cyanocobalamin (Vitamin B12 1000 Mcg Tab) 1,000 mcg PO DAILY [facility] Last Admin: 04/25/17 09:08 Dose: 1,000 mcg Diphenhydramine HCl (Benadryl) 50 mg PO HS PRN PRN Reason: Insomnia Last Admin: 04/19/17 21:35 Dose: 50 mg Doxercalciferol (Hectorol) 1 mcg IV MWF [facility] Last Admin: 04/24/17 14:42 Dose: 1 mcg Insulin Detemir (Levemir) 20 unit SC HS [facility] Last Admin: 04/24/17 21:55 Dose: 20 unit Insulin Human Regular (Humulin R Med) 0 units SC [facility] PRN Reason: Protocol Last Admin: 04/25/17 11:56 Dose: 3 units Isosorbide Mononitrate (Imdur) 60 mg PO DAILY [facility] Losartan Potassium (Cozaar) 100 mg PO DAILY [facility] Last Admin: 04/25/17 09:09 Dose: 100 mg Metoprolol Tartrate (Lopressor) 25 mg PO BID [facility] Last Admin: 04/25/17 09:09 Dose: 25 mg Ondansetron HCl (Zofran Inj) 4 mg IVP Q6H PRN PRN Reason: Nausea/Vomiting Last Admin: 04/18/17 21:53 Dose: 4 mg Pantoprazole Sodium (Protonix Ec Tab) 40 mg PO Q12 [facility] Last Admin: 04/25/17 09:09 Dose: 40 mg Polyethylene Glycol (Miralax) 17 gm PO DAILY [facility] Last Admin: 04/25/17 09:08 Dose: 17 gm Pregabalin (Lyrica) 75 mg PO BID [facility] Last Admin: 04/25/17 09:08 Dose: 75 mg Tamsulosin HCl (Flomax) 0.4 mg PO DAILY [facility] Last Admin: 04/25/17 09:08 Dose: 0.4 mg Vancomycin HCl (Vancocin 25 Mg/Ml (Oral Use)) 125 mg PO QID [facility] PRN Reason: Protocol Last Admin: 04/25/17 14:01 Dose: 125 mg Vitamin B Complex/Vit C/Folic Acid (Nephro-Eleni) 1 tab PO 0800 [facility] Last Admin: 04/25/17 09:08 Dose: 1 tab Zolpidem Tartrate (Ambien) 10 mg PO HS PRN; Protocol PRN Reason: Insomnia Last Admin: 04/24/17 21:55 Dose: 10 mg - Labs Labs: 04/25/17 06:45 04/25/17 06:45 PT 11.8 Seconds (9.9-11.8) 04/14/17 20:06 INR 1.09 (0.93-1.08) H 04/14/17 20:06 APTT 29.1 Seconds (23.7-30.8) 04/14/17 20:06 Attending/Attestation - Attestation I have personally seen and examined this patient.: Yes I have fully participated in the care of the patient.: Yes I have reviewed all pertinent clinical information, including history, physical exam and plan: Yes Notes (Text): I have seen and examined patient with medical screener. Agree with the above note with the following additions/ exceptions: Briefly this is 56 year old male with a past medical history significant for hypertension, DM-2, CAD S/P CABG and stents , ESRD on hemodialysis, Nephrotic syndrome, anemia, secondary hyperparathyroidism, Marijuana abuse who was admitted for transient episode of hematemesis and required 2 units of prbc. Today, patient denies any complaints. Martinez is in place as he failed voiding trial . Urology consult appreciated. Flomax started and will attempt voiding trial again. He had troponins elevation and EKG changes. Stress test was done which showed fixed defect. As there was a discrepancy in EF between echo and stress test, MUGA scan was done which revealed EF of 51%. Patient is not a candidate for antiplatelet therapy due to GI bleeding. Plan for outpatient EGD and colonoscopy. He was found to have HCAP on meropenem. Blood culture from HD catheter grew K pneumonia and second one grew psedomonas. He is on PO cipro. Stool for cdiff toxin is positive and patient remains on PO vanco. Patient had temporary catheter in place and plan for permacath placement today. He cannot be discharged prior to permacath placement as HD units does not accept non tunneled catheter as an outpatient. Continue Lyrica for neuropathic pain. Management plan was discussed in detail with patient. Upon discharge patient will follow up with Dr Ward. Dr Marty Muir
[2017-04-25 07:30] LABS: BASO # 0.04 K/mm3 (0.0-2.0); BASO % 0.6 % (0.0-3.0); EOS # 0.1 (0.0-0.7); EOS % 1.6 % (1.5-5.0); GRAN # 4.09 (1.4-6.5); GRAN % 63.5 % (50.0-68.0); HEMATOCRIT 28.7 % (42.0-52.0); LYMPH # 1.6 (1.2-3.4); LYMPH % 25.3 % (22.0-35.0); MEAN CELL VOLUME 85.4 fl (80.0-105.0); MEAN CORPUSCULAR HEMOGLOBIN 27.7 pg (25.0-35.0); MEAN CORPUSCULAR HGB CONC 32.4 g/dl (31.0-37.0); MEAN PLATELET VOLUME 10.4 fl (7.0-11.0); MONO # 0.6 (0.1-0.6); RED CELL DISTRIBUTION WIDTH 16.8 % (11.5-14.5); WHITE BLOOD COUNT 6.4 10^3/ul (4.5-11.0)
[2017-04-25 07:41] LABS: ALB/GLOB RATIO 1.1 (1.1-1.8); BILIRUBIN,TOTAL 0.6 mg/dL (0.2-1.3); POTASSIUM 4.1 mmol/L (3.6-5.0); TOTAL PROTEIN 5.4 g/dL (5.8-8.3)
[2017-04-25] MEDS: Insulin Reg-MEDIUM-Coverage SC SCH ×3 (08:08→17:16)
[2017-04-25] MEDS: POLYETHYLENE GLYCOL 3350 17 GM/Dose PACKET PO SCH ×2 (09:08)
[2017-04-25] MEDS: Multivitamin Vitamin B Complex (Nephro-Vite) Tab PO SCH (09:08)
[2017-04-25] MEDS: Pantoprazole 40 mg EC Tab PO SCH (09:09)
[2017-04-25] MEDS: Vancomycin 25 MG/ML PO SCH ×3 (09:10→18:42)
--- NOTE | 2017-04-25 14:31 | CP.PCM.PN ---
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 compliance to meds) Hypokalemia, Vit D deficiency, active Marijuana abuse. Abnormal Stress test LVEF 29% and regional wall motion abnormality : cardiomyopathy. Hx of CAD s/p CABG Urine retention C diff diarrhoea Plan: Will plan for dialysis tomorrow as per MW tim, Continue with Nephrovite 1 tab/ day. PRBC as needed for anemia. On BEREKET as Aransep 60 mcg weekly last Hb 9.3. TSAT 11 % Ferritin 511. hold IV iron due to sepsis Continue with hectorol 1 mcg with dialysis. Last PTH level 463. At home he is also on weekly Vit D. Phos on low side BP control with meds as ordered. w/up for sec HTN neg. Patient on RAAS anjelica as Losartan. ? compliance to med as BP usually high at presentation which gets better controlled in hospital shortly after. Glycemic control, Dialysis consistent diet Further work up/management as per primary team Dose meds/antibiotics (as per ID) for ESRD status. Avoid fleets enema/magnesium based laxatives. ID, cardiology and GI had evaluated him. had stress test done. plan for endoscopic eval as outpt per GI. stable for d/c from renal perspective [pt admits to taking shower at home likely contributed to his line infection. He was educated in past not to shower and let catheter be exposed to water. it was reinforced to him again] Thanks for allowing me to participate in care of your patient. Please call if any Qs. d/w team Dr Sancho Garrett Office: [phone] Subjective: Noted events overnight. Patients feels better. no further nausea/ vomiting. Denies chest pain, palpitation, shortness of breath, leg swelling. No urinary complaints but required catheter due to retention. it was removed today Physical Examination: General Appearance: Comfortable, in no acute respiratory distress, co- operative. Vitals reviewed and noted as below Lungs: Normal respiratory rate/effort. Breath sounds bilateral equal and clear Heart: Normal rate. s1s2 normal. No rub or gallop. Extremities: no edema. s/p forefoot amputation Neurological: Patient is alert, awake and oriented to person, place and time. No focal deficit. Strength bilateral appropriate and equal Skin: Warm and dry. Normal turgor. No rash. Palpitation: Normal elasticity for age Abdomen: Abdomen is soft. Bowel sounds +. There is no abdominal tenderness, no guarding/rigidity or organomegaly : kidney or bladder not palpable. Access: Rt permacath Labs/imaging reviewed. Past medical history, past surgical history, family history, social history, allergy reviewed Work up: CT chest/a/pelvis; reviewed. no pneumonia Aldosterone <1 renin 0.9 Metanephrine neg. renal artety doppler neg Objective - Vital Signs/Intake and Output Vital Signs (last 24 hours): Temp Pulse Resp BP Pulse Ox 98.5 F 57 L 24 115/68 96 04/25/17 09:19 04/25/17 14:07 04/25/17 09:19 04/25/17 14:07 04/25/17 09:19 Intake and Output: 04/25/17 04/25/17 06:59 18:59 Intake Total 1140 960 Output Total 2000 Balance -860 960 - Medications Medications: Current Medications Acetaminophen (Tylenol 325mg Tab) 650 mg PO Q4 PRN PRN Reason: Pain, Mild (1-3) Amlodipine Besylate (Norvasc) 10 mg PO DAILY [facility] Last Admin: 04/25/17 09:09 Dose: 10 mg Atorvastatin Calcium (Lipitor) 40 mg PO HS [facility] Last Admin: 04/24/17 21:55 Dose: 40 mg Ciprofloxacin (Cipro) 250 mg PO Q12 [facility] PRN Reason: Protocol Stop: 04/29/17 22:01 Last Admin: 04/25/17 09:08 Dose: 250 mg Clonidine HCl (Catapres) 0.1 mg PO TID [facility] Last Admin: 04/25/17 14:07 Dose: Not Given Cyanocobalamin (Vitamin B12 1000 Mcg Tab) 1,000 mcg PO DAILY [facility] Last Admin: 04/25/17 09:08 Dose: 1,000 mcg Diphenhydramine HCl (Benadryl) 50 mg PO HS PRN PRN Reason: Insomnia Last Admin: 04/19/17 21:35 Dose: 50 mg Doxercalciferol (Hectorol) 1 mcg IV MWF [facility] Last Admin: 04/24/17 14:42 Dose: 1 mcg Insulin Detemir (Levemir) 20 unit SC HS [facility] Last Admin: 04/24/17 21:55 Dose: 20 unit Insulin Human Regular (Humulin R Med) 0 units SC ACHS TIM PRN Reason: Protocol Last Admin: 04/25/17 11:56 Dose: 3 units Isosorbide Mononitrate (Imdur) 60 mg PO DAILY [facility] Losartan Potassium (Cozaar) 100 mg PO DAILY [facility] Last Admin: 04/25/17 09:09 Dose: 100 mg Metoprolol Tartrate (Lopressor) 25 mg PO BID [facility] Last Admin: 04/25/17 09:09 Dose: 25 mg Ondansetron HCl (Zofran Inj) 4 mg IVP Q6H PRN PRN Reason: Nausea/Vomiting Last Admin: 04/18/17 21:53 Dose: 4 mg Pantoprazole Sodium (Protonix Ec Tab) 40 mg PO Q12 [facility] Last Admin: 04/25/17 09:09 Dose: 40 mg Polyethylene Glycol (Miralax) 17 gm PO DAILY [facility] Last Admin: 04/25/17 09:08 Dose: 17 gm Pregabalin (Lyrica) 75 mg PO BID [facility] Last Admin: 04/25/17 09:08 Dose: 75 mg Tamsulosin HCl (Flomax) 0.4 mg PO DAILY [facility] Last Admin: 04/25/17 09:08 Dose: 0.4 mg Vancomycin HCl (Vancocin 25 Mg/Ml (Oral Use)) 125 mg PO QID [facility] PRN Reason: Protocol Last Admin: 04/25/17 14:01 Dose: 125 mg Vitamin B Complex/Vit C/Folic Acid (Nephro-Eleni) 1 tab PO 0800 [facility] Last Admin: 04/25/17 09:08 Dose: 1 tab Zolpidem Tartrate (Ambien) 10 mg PO HS PRN; Protocol PRN Reason: Insomnia Last Admin: 04/24/17 21:55 Dose: 10 mg - Labs Labs: 04/25/17 06:45 04/25/17 06:45 PT 11.8 Seconds (9.9-11.8) 04/14/17 20:06 INR 1.09 (0.93-1.08) H 04/14/17 20:06 APTT 29.1 Seconds (23.7-30.8) 04/14/17 20:06
[2017-04-25 15:22] LABS: LORAZEPAM <10 ng/mL (50-240)
--- NOTE | 2017-04-25 16:28 | PN ---
DATE: 04/25/2017 REASON FOR CONSULTATION: Followup positive troponin, CAD status post CABG, sepsis, GI bleeding. SUBJECTIVE: Denies any chest pain, shortness of breath or any palpitation. OBJECTIVE: GENERAL: Lying flat on the bed, wanted to go home. VITAL SIGNS: Temperature afebrile, heart rate 60, blood pressure 115/81. HEENT: PERRLA. Extraocular muscles intact. NECK: Supple. No carotid bruit. No thyromegaly. CHEST: Clear to auscultation. HEART: S1 and S2, regular. ABDOMEN: Soft. EXTREMITIES: Clubbing and cyanosis negative. LABORATORY DATA: Blood workup as follows: WBC 6.5, hemoglobin 9.3, hematocrit 28.7, platelet count 236. Chemistry showed sodium 138, potassium 4.1, chloride 102, carbon dioxide 27, anion gap 13, BUN 18, creatinine 4.0. Total protein 5.4. Albumin 2.8, albumin/globulin ratio 1.1. IMPRESSION: A 56-year-old male with past history significant for coronary artery disease, coronary artery bypass graft, end renal disease on dialysis, admitted with gastrointestinal bleeding and positive troponin borderline, possibly secondary hemodynamic instability as well as severe anemia. Stress test shows fixed defect with ejection fraction of 29%. Patient underwent echocardiogram that shows ejection fraction 48% on 03/26/2017. Patient had MUGA scan done which showed an ejection fraction 51%. RECOMMENDATIONS: Continue medical treatment. Continue atorvastatin. Continue beta-anjelica. I suggest to start aspirin when okay from GI point of view. In the interim, continue beta-anjelica, continue atorvastatin. We will also put low dose nitrate Imdur and since the patient's blood pressure is elevated, we will increase Imdur to 60 mg from tomorrow. I will follow with you. Thank you Dr. Muir for providing me the opportunity in taking care of the patient, Manuel Lay. Corey Mcdermott MD
[2017-04-25 17:20] VITALS: BP 134/71; PULSE 58
[2017-04-25 17:21] VITALS: RESP 20; TEMP 98.2; O2SAT 95
--- NOTE | 2017-04-25 18:11 | CP.PCM.DIS ---
<MATTHEW DAHL - Last Filed: 04/25/17 18:58> Provider - Provider Date of Admission: 04/14/17 21:13 Attending physician: Marty Muir MD Primary care physician: Taurus Mack MD Consults: WILMA: Shelia ID: [id number] Nephro: Kwan Cardio: Baldemar Uro: Giron Time Spent in preparation of Discharge (in minutes): 55 Diagnosis - Discharge Diagnosis (1) Urinary retention Status: Acute Priority: High (2) Upper GI bleeding Status: Acute Priority: High (3) ESRD on dialysis Status: Chronic Priority: High (4) Sepsis Status: Acute Priority: High Hospital Course - Lab Results Lab Results: Micro Results 04/19/17 11:00 Blood-Venous Blood Culture - Final NO GROWTH AFTER 5 DAYS 04/19/17 11:00 Blood-Venous Gram Stain - Final TEST NOT PERFORMED 04/19/17 11:00 Blood-Venous Blood Culture - Final NO GROWTH AFTER 5 DAYS 04/19/17 11:00 Blood-Venous Gram Stain - Final TEST NOT PERFORMED 04/18/17 13:35 Catheter Tip Catheter Tip Culture - Final No Growth 04/17/17 10:45 Blood-Thru Central Line Blood Culture - Final Pseudomonas Aeruginosa 04/17/17 10:45 Blood-Thru Central Line Gram Stain - Final 04/17/17 09:23 Stool C. difficile Antigen & Toxin A,B (M - Final 04/15/17 18:56 Urine Urine Culture - Final No Growth (<1,000 CFU/ML) 04/14/17 22:15 Blood-During Dialysis Blood Culture - Final Klebsiella Pneumoniae Ssp Pneu 04/14/17 22:15 Blood-During Dialysis Gram Stain - Final 04/14/17 23:20 Naris MRSA Culture (Admit) - Final MRSA NOT DETECTED Most Recent Lab Values WBC 6.4 10^3/ul (4.5-11.0) 04/25/17 06:45 RBC 3.36 10^6/uL (3.5-6.1) L 04/25/17 06:45 Hgb 9.3 g/dL (14.0-18.0) L 04/25/17 06:45 Hct 28.7 % (42.0-52.0) L 04/25/17 06:45 MCV 85.4 fl (80.0-105.0) 04/25/17 06:45 MCH 27.7 pg (25.0-35.0) 04/25/17 06:45 MCHC 32.4 g/dl (31.0-37.0) 04/25/17 06:45 RDW 16.8 % (11.5-14.5) H 04/25/17 06:45 Plt Count 236 10^3/uL (120.0-450.0) 04/25/17 06:45 MPV 10.4 fl (7.0-11.0) 04/25/17 06:45 Gran % 63.5 % (50.0-68.0) 04/25/17 06:45 Lymph % (Auto) 25.3 % (22.0-35.0) 04/25/17 06:45 [place] % (Auto) 9.0 % (1.0-6.0) H 04/25/17 06:45 Eos % (Auto) 1.6 % (1.5-5.0) 04/25/17 06:45 Baso % (Auto) 0.6 % (0.0-3.0) 04/25/17 06:45 Gran # 4.09 (1.4-6.5) 04/25/17 06:45 Lymph # 1.6 (1.2-3.4) 04/25/17 06:45 [place] # 0.6 (0.1-0.6) 04/25/17 06:45 Eos # 0.1 (0.0-0.7) 04/25/17 06:45 Baso # 0.04 K/mm3 (0.0-2.0) 04/25/17 06:45 Corrected WBC (Man) Cancelled 04/18/17 07:30 Neutrophils % (Manual) 95 % (50.0-70.0) H 04/14/17 20:06 Band Neutrophils % Cancelled 04/18/17 07:30 Lymphocytes % (Manual) 1 % (22.0-35.0) L 04/14/17 20:06 Atypical Lymphs % Cancelled 04/18/17 07:30 Monocytes % (Manual) 4 % (1.0-6.0) 04/14/17 20:06 Eosinophils % (Manual) Cancelled 04/18/17 07:30 Basophils % (Manual) Cancelled 04/18/17 07:30 Metamyelocytes % Cancelled 04/18/17 07:30 Myelocytes % Cancelled 04/18/17 07:30 Promyelocytes % Cancelled 04/18/17 07:30 Nucleated RBC % Cancelled 04/18/17 07:30 Hypersegmented Polys Cancelled 04/18/17 07:30 Immature Lymphocytes Cancelled 04/18/17 07:30 Blast Cells Cancelled 04/18/17 07:30 Smudge Cells Cancelled 04/18/17 07:30 Toxic Granulation Cancelled 04/18/17 07:30 Dohle Bodies Cancelled 04/18/17 07:30 Brii Rods Cancelled 04/18/17 07:30 Platelet Evaluation Normal (NORMAL) 04/14/17 20:06 Plt Clumps, EDTA Cancelled 04/18/17 07:30 Large Platelets Cancelled 04/18/17 07:30 Giant Platelets Cancelled 04/18/17 07:30 Polychromasia Cancelled 04/18/17 07:30 Hypochromasia Cancelled 04/18/17 07:30 Hyperchromasia Cancelled 04/18/17 07:30 Poikilocytosis (manual Cancelled 04/18/17 07:30 Basophilic Stippling Cancelled 04/18/17 07:30 Anisocytosis (manual) Slight 04/14/17 20:06 Microcytosis (manual) Cancelled 04/18/17 07:30 Macrocytosis (manual) Cancelled 04/18/17 07:30 Spherocytes Cancelled 04/18/17 07:30 Sickle Cells Cancelled 04/18/17 07:30 Target Cells Cancelled 04/18/17 07:30 Tear Drop Cells Cancelled 04/18/17 07:30 Ovalocytes Slight 04/14/17 20:06 Stomatocytes Cancelled 04/18/17 07:30 Helmet Cells Cancelled 04/18/17 07:30 Alton Rings Cancelled 04/18/17 07:30 Vinicio Cells Cancelled 04/18/17 07:30 Acanthocytes (Spur) Cancelled 04/18/17 07:30 Rouleaux Cancelled 04/18/17 07:30 Schistocytes Cancelled 04/18/17 07:30 PT 11.8 Seconds (9.9-11.8) 04/14/17 20:06 INR 1.09 (0.93-1.08) H 04/14/17 20:06 APTT 29.1 Seconds (23.7-30.8) 04/14/17 20:06 pO2 29 mm/Hg (30-55) L 04/15/17 01:00 VBG pH 7.43 (7.32-7.43) 04/15/17 01:00 VBG pCO2 37.0 (40-60) L 04/15/17 01:00 VBG HCO3 24.6 mmol/l (21-28) 04/15/17 01:00 VBG Total CO2 25.7 mmol.L (22-28) 04/15/17 01:00 VBG O2 Sat (Calc) 62.6 % (40-65) 04/15/17 01:00 VBG Base Excess 0.5 mmol/L (0.0-2.0) 04/15/17 01:00 VBG Potassium 4.2 mmol/L (3.6-5.2) 04/15/17 01:00 Sodium 137.0 mmol/L (132-148) 04/15/17 01:00 Chloride 100.0 mmol/L (98-107) 04/15/17 01:00 Glucose 243 mg/dl (75-110) H 04/15/17 01:00 Lactate 2.9 mmol/L (0.7-2.1) H 04/15/17 01:00 FiO2 21.0 % 04/15/17 01:00 Sodium 138 mmol/L (132-148) 04/25/17 06:45 Potassium 4.1 mmol/L (3.6-5.0) 04/25/17 06:45 Chloride 102 mmol/L (95-110) 04/25/17 06:45 Carbon Dioxide 27 mmol/L (21-33) 04/25/17 06:45 Anion Gap 13 (10-20) 04/25/17 06:45 BUN 18 mg/dL (7-21) 04/25/17 06:45 Creatinine 4.0 mg/dL (0.5-1.4) H 04/25/17 06:45 Est GFR ( Amer) 19 04/25/17 06:45 Est GFR (Non-Af Amer) 16 04/25/17 06:45 POC Glucose (mg/dL) 179 mg/dL (65-110) H 04/25/17 15:59 Random Glucose 98 mg/dL (70-110) 04/25/17 06:45 Hemoglobin A1c 7.1 % (4.2-6.5) H 04/16/17 05:30 Calcium 8.0 mg/dL (8.4-10.5) L 04/25/17 06:45 Phosphorus 3.9 mg/dL (2.5-4.5) 04/24/17 05:30 Magnesium 1.7 mg/dL (1.7-2.2) 04/21/17 07:30 Total Bilirubin 0.6 mg/dL (0.2-1.3) 04/25/17 06:45 AST 18 U/L (15-59) 04/25/17 06:45 ALT 15 U/L (7-56) 04/25/17 06:45 Alkaline Phosphatase 82 U/L (38-133) 04/25/17 06:45 Lactate Dehydrogenase 491 U/L (333-699) 04/16/17 05:30 Total Creatine Kinase 89 U/L (35-230) 04/16/17 05:30 Troponin I 0.12 ng/mL D 04/16/17 05:30 Total Protein 5.4 g/dL (5.8-8.3) L 04/25/17 06:45 Albumin 2.8 g/dL (3.0-4.8) L 04/25/17 06:45 Globulin 2.6 gm/dL 04/25/17 06:45 Albumin/Globulin Ratio 1.1 (1.1-1.8) 04/25/17 06:45 Triglycerides 222 mg/dL (35-160) H 04/16/17 05:30 Cholesterol 121 mg/dL (130-200) L 04/16/17 05:30 LDL Cholesterol Direct 50 mg/dL (0-129) 04/16/17 05:30 HDL Cholesterol 30 mg/dL (29-60) 04/16/17 05:30 Amylase < 30 U/L (35-125) L 04/15/17 08:21 Lipase 43 U/L (23-300) 04/15/17 08:21 Prostate Specific Ag 0.5 ng/mL (0.00-2.5) 04/23/17 07:20 Procalcitonin 10.05 NG/ML (0.19-0.49) H 04/15/17 05:30 TSH 3rd Generation 0.55 mIU/mL (0.46-4.68) 04/16/17 05:30 Venous Blood Potassium 4.2 mmol/L (3.6-5.2) 04/15/17 01:00 Urine Color Yellow (YELLOW) 04/20/17 21:40 Urine Appearance Clear (CLEAR) 04/20/17 21:40 Urine pH 8.5 (4.7-8.0) 04/20/17 21:40 Ur Specific [place] 1.015 (1.005-1.035) 04/20/17 21:40 Urine Protein >=300 mg/dL (<30 mg/dL) H 04/20/17 21:40 Urine Glucose (UA) 250 mg/dL (NEGATIVE) H 04/20/17 21:40 Urine Ketones Negative mg/dL (NEGATIVE) 04/20/17 21:40 Urine Blood Small (NEGATIVE) H 04/20/17 21:40 Urine Nitrate Negative (NEGATIVE) 04/20/17 21:40 Urine Bilirubin Negative (NEGATIVE) 04/20/17 21:40 Urine Urobilinogen 0.2 E.U./dL (<1 E.U./dL) 04/20/17 21:40 Ur Leukocyte Esterase Negative Zarina/uL (NEGATIVE) 04/20/17 21:40 Urine RBC 0 - 2 /hpf (0-2) 04/20/17 21:40 Urine WBC 1 - 3 /hpf (0-6) 04/20/17 21:40 Ur Epithelial Cells 0 - 2 /hpf (0-5) 04/20/17 21:40 Lorazepam <10 ng/mL (50-240) L 04/16/17 05:30 Blood Type A POSITIVE 04/18/17 08:30 Antibody Screen Negative 04/18/17 08:30 Crossmatch See Detail 04/18/17 08:30 BBK History Checked Patient has bt 04/18/17 08:30 - Hospital Course Hospital Course: Pt is a 56 year old male with PMH of DM, HTN, CAD s/p stents, CVA, and ESRD on HD (MWF) who initially presented with bloody emesis and fever. Consults were put out to cardio, IR, ID, nephro, and urology, and recommendations appreciated. In the course of hospitalization, was noted to be septic 2/2 to infected indwelling tunneled catheter. Catheter removed at bedside and abx started, and symptoms began to improve. Hospital course was also complicated by diarrhea with C. diff antigen positive stools, as well as urinary retention, which he has had before. Yesterday, patient had new permacath placed. Today, he failed a repeat voiding trial on Flomax, so martinez catheter was reinserted. Patient has completed courses of antibiotics for both sepsis and C. diff colitis and will not require PO antibiotics. Today, he feels well with no particular complaints. Denies CP, SOB, N/V/D/C, abdominal pain. All medications were discussed, and questions were answered to his satisfaction. He was instructed to follow up with his primary, as well as GI for outpatient endoscopy and colonoscopy, and urology for martinez removal and urinary retention. Patient was then discharged to home. Discharge Exam - Head Exam Head Exam: ATRAUMATIC, NORMOCEPHALIC - Eye Exam Eye Exam: EOMI, Normal appearance - ENT Exam ENT Exam: Mucous Membranes Moist, Normal Oropharynx - Neck Exam Neck exam: Normal Inspection Additional comments: Right permacath in place - Respiratory Exam Respiratory Exam: NORMAL BREATHING PATTERN, UNREMARKABLE - Cardiovascular Exam Cardiovascular Exam: RRR, +S1, +S2 - GI/Abdominal Exam GI & Abdominal Exam: Normal Bowel Sounds, Soft. absent: Tenderness - Extremities Exam Extremities exam: full ROM, pedal pulses present - Neurological Exam Neurological exam: Alert, Oriented x3 - Psychiatric Exam Psychiatric exam: Normal Affect, Normal Mood - Skin Skin Exam: Dry, Intact Discharge Plan - Follow Up Plan Condition: GUARDED Disposition: HOME/ ROUTINE Patient education suggested?: Yes Additional Instructions: 1. Continue to take all medications as prescribed. d/c home blood pressure medications and take those prescribed from the hospital instead 2. Follow up with primary care doctor within one week 3. Follow up with Dr. Olivo (GI) for outpatient EGD and colonoscopy 4. Follow up with Dr. Mcdermott (Cardio) as indicated 5. Follow up with Dr. Giron (Uro) or urologist of choice within the next week for urinary retention, and removal of martinez catheter 6. For any new or worsening concerns, contact PCP immediately, or return to ER Referrals: Taurus Mack MD [Primary Care Provider] - Rocky Giron MD [Staff Provider] - Corey Mcdermott MD [Staff Provider] - Ruiz Olivo MD [Staff Provider] - <Marty Muir - Last Filed: 05/10/17 17:18> Provider - Provider Date of Admission: 04/14/17 21:13 Attending physician: Marty Muir MD Primary care physician: Taurus Mack MD Hospital Course - Lab Results Lab Results: Micro Results 04/19/17 11:00 Blood-Venous Blood Culture - Final NO GROWTH AFTER 5 DAYS 04/19/17 11:00 Blood-Venous Gram Stain - Final TEST NOT PERFORMED 04/19/17 11:00 Blood-Venous Blood Culture - Final NO GROWTH AFTER 5 DAYS 04/19/17 11:00 Blood-Venous Gram Stain - Final TEST NOT PERFORMED 04/18/17 13:35 Catheter Tip Catheter Tip Culture - Final No Growth 04/17/17 10:45 Blood-Thru Central Line Blood Culture - Final Pseudomonas Aeruginosa 04/17/17 10:45 Blood-Thru Central Line Gram Stain - Final 04/17/17 09:23 Stool C. difficile Antigen & Toxin A,B (M - Final 04/15/17 18:56 Urine Urine Culture - Final No Growth (<1,000 CFU/ML) 04/14/17 22:15 Blood-During Dialysis Blood Culture - Final Klebsiella Pneumoniae Ssp Pneu 04/14/17 22:15 Blood-During Dialysis Gram Stain - Final 04/14/17 23:20 Naris MRSA Culture (Admit) - Final MRSA NOT DETECTED Most Recent Lab Values WBC 6.4 10^3/ul (4.5-11.0) 04/25/17 06:45 RBC 3.36 10^6/uL (3.5-6.1) L 04/25/17 06:45 Hgb 9.3 g/dL (14.0-18.0) L 04/25/17 06:45 Hct 28.7 % (42.0-52.0) L 04/25/17 06:45 MCV 85.4 fl (80.0-105.0) 04/25/17 06:45 MCH 27.7 pg (25.0-35.0) 04/25/17 06:45 MCHC 32.4 g/dl (31.0-37.0) 04/25/17 06:45 RDW 16.8 % (11.5-14.5) H 04/25/17 06:45 Plt Count 236 10^3/uL (120.0-450.0) 04/25/17 06:45 MPV 10.4 fl (7.0-11.0) 04/25/17 06:45 Gran % 63.5 % (50.0-68.0) 04/25/17 06:45 Lymph % (Auto) 25.3 % (22.0-35.0) 04/25/17 06:45 [place] % (Auto) 9.0 % (1.0-6.0) H 04/25/17 06:45 Eos % (Auto) 1.6 % (1.5-5.0) 04/25/17 06:45 Baso % (Auto) 0.6 % (0.0-3.0) 04/25/17 06:45 Gran # 4.09 (1.4-6.5) 04/25/17 06:45 Lymph # 1.6 (1.2-3.4) 04/25/17 06:45 [place] # 0.6 (0.1-0.6) 04/25/17 06:45 Eos # 0.1 (0.0-0.7) 04/25/17 06:45 Baso # 0.04 K/mm3 (0.0-2.0) 04/25/17 06:45 Corrected WBC (Man) Cancelled 04/18/17 07:30 Neutrophils % (Manual) 95 % (50.0-70.0) H 04/14/17 20:06 Band Neutrophils % Cancelled 04/18/17 07:30 Lymphocytes % (Manual) 1 % (22.0-35.0) L 04/14/17 20:06 Atypical Lymphs % Cancelled 04/18/17 07:30 Monocytes % (Manual) 4 % (1.0-6.0) 04/14/17 20:06 Eosinophils % (Manual) Cancelled 04/18/17 07:30 Basophils % (Manual) Cancelled 04/18/17 07:30 Metamyelocytes % Cancelled 04/18/17 07:30 Myelocytes % Cancelled 04/18/17 07:30 Promyelocytes % Cancelled 04/18/17 07:30 Nucleated RBC % Cancelled 04/18/17 07:30 Hypersegmented Polys Cancelled 04/18/17 07:30 Immature Lymphocytes Cancelled 04/18/17 07:30 Blast Cells Cancelled 04/18/17 07:30 Smudge Cells Cancelled 04/18/17 07:30 Toxic Granulation Cancelled 04/18/17 07:30 Dohle Bodies Cancelled 04/18/17 07:30 Brii Rods Cancelled 04/18/17 07:30 Platelet Evaluation Normal (NORMAL) 04/14/17 20:06 Plt Clumps, EDTA Cancelled 04/18/17 07:30 Large Platelets Cancelled 04/18/17 07:30 Giant Platelets Cancelled 04/18/17 07:30 Polychromasia Cancelled 04/18/17 07:30 Hypochromasia Cancelled 04/18/17 07:30 Hyperchromasia Cancelled 04/18/17 07:30 Poikilocytosis (manual Cancelled 04/18/17 07:30 Basophilic Stippling Cancelled 04/18/17 07:30 Anisocytosis (manual) Slight 04/14/17 20:06 Microcytosis (manual) Cancelled 04/18/17 07:30 Macrocytosis (manual) Cancelled 04/18/17 07:30 Spherocytes Cancelled 04/18/17 07:30 Sickle Cells Cancelled 04/18/17 07:30 Target Cells Cancelled 04/18/17 07:30 Tear Drop Cells Cancelled 04/18/17 07:30 Ovalocytes Slight 04/14/17 20:06 Stomatocytes Cancelled 04/18/17 07:30 Helmet Cells Cancelled 04/18/17 07:30 [place] Rings Cancelled 04/18/17 07:30 Comfort Cells Cancelled 04/18/17 07:30 Acanthocytes (Spur) Cancelled 04/18/17 07:30 Rouleaux Cancelled 04/18/17 07:30 Schistocytes Cancelled 04/18/17 07:30 PT 11.8 Seconds (9.9-11.8) 04/14/17 20:06 INR 1.09 (0.93-1.08) H 04/14/17 20:06 APTT 29.1 Seconds (23.7-30.8) 04/14/17 20:06 pO2 29 mm/Hg (30-55) L 04/15/17 01:00 VBG pH 7.43 (7.32-7.43) 04/15/17 01:00 VBG pCO2 37.0 (40-60) L 04/15/17 01:00 VBG HCO3 24.6 mmol/l (21-28) 04/15/17 01:00 VBG Total CO2 25.7 mmol.L (22-28) 04/15/17 01:00 VBG O2 Sat (Calc) 62.6 % (40-65) 04/15/17 01:00 VBG Base Excess 0.5 mmol/L (0.0-2.0) 04/15/17 01:00 VBG Potassium 4.2 mmol/L (3.6-5.2) 04/15/17 01:00 Sodium 137.0 mmol/L (132-148) 04/15/17 01:00 Chloride 100.0 mmol/L (98-107) 04/15/17 01:00 Glucose 243 mg/dl (75-110) H 04/15/17 01:00 Lactate 2.9 mmol/L (0.7-2.1) H 04/15/17 01:00 FiO2 21.0 % 04/15/17 01:00 Sodium 138 mmol/L (132-148) 04/25/17 06:45 Potassium 4.1 mmol/L (3.6-5.0) 04/25/17 06:45 Chloride 102 mmol/L (95-110) 04/25/17 06:45 Carbon Dioxide 27 mmol/L (21-33) 04/25/17 06:45 Anion Gap 13 (10-20) 04/25/17 06:45 BUN 18 mg/dL (7-21) 04/25/17 06:45 Creatinine 4.0 mg/dL (0.5-1.4) H 04/25/17 06:45 Est GFR ( Amer) 19 04/25/17 06:45 Est GFR (Non-Af Amer) 16 04/25/17 06:45 POC Glucose (mg/dL) 179 mg/dL (65-110) H 04/25/17 15:59 Random Glucose 98 mg/dL (70-110) 04/25/17 06:45 Hemoglobin A1c 7.1 % (4.2-6.5) H 04/16/17 05:30 Calcium 8.0 mg/dL (8.4-10.5) L 04/25/17 06:45 Phosphorus 3.9 mg/dL (2.5-4.5) 04/24/17 05:30 Magnesium 1.7 mg/dL (1.7-2.2) 04/21/17 07:30 Total Bilirubin 0.6 mg/dL (0.2-1.3) 04/25/17 06:45 AST 18 U/L (15-59) 04/25/17 06:45 ALT 15 U/L (7-56) 04/25/17 06:45 Alkaline Phosphatase 82 U/L (38-133) 04/25/17 06:45 Lactate Dehydrogenase 491 U/L (333-699) 04/16/17 05:30 Total Creatine Kinase 89 U/L (35-230) 04/16/17 05:30 Troponin I 0.12 ng/mL D 04/16/17 05:30 Total Protein 5.4 g/dL (5.8-8.3) L 04/25/17 06:45 Albumin 2.8 g/dL (3.0-4.8) L 04/25/17 06:45 Globulin 2.6 gm/dL 04/25/17 06:45 Albumin/Globulin Ratio 1.1 (1.1-1.8) 04/25/17 06:45 Triglycerides 222 mg/dL (35-160) H 04/16/17 05:30 Cholesterol 121 mg/dL (130-200) L 04/16/17 05:30 LDL Cholesterol Direct 50 mg/dL (0-129) 04/16/17 05:30 HDL Cholesterol 30 mg/dL (29-60) 04/16/17 05:30 Amylase < 30 U/L (35-125) L 04/15/17 08:21 Lipase 43 U/L (23-300) 04/15/17 08:21 Prostate Specific Ag 0.5 ng/mL (0.00-2.5) 04/23/17 07:20 Procalcitonin 10.05 NG/ML (0.19-0.49) H 04/15/17 05:30 TSH 3rd Generation 0.55 mIU/mL (0.46-4.68) 04/16/17 05:30 Venous Blood Potassium 4.2 mmol/L (3.6-5.2) 04/15/17 01:00 Urine Color Yellow (YELLOW) 04/20/17 21:40 Urine Appearance Clear (CLEAR) 04/20/17 21:40 Urine pH 8.5 (4.7-8.0) 04/20/17 21:40 Ur Specific [place] 1.015 (1.005-1.035) 04/20/17 21:40 Urine Protein >=300 mg/dL (<30 mg/dL) H 04/20/17 21:40 Urine Glucose (UA) 250 mg/dL (NEGATIVE) H 04/20/17 21:40 Urine Ketones Negative mg/dL (NEGATIVE) 04/20/17 21:40 Urine Blood Small (NEGATIVE) H 04/20/17 21:40 Urine Nitrate Negative (NEGATIVE) 04/20/17 21:40 Urine Bilirubin Negative (NEGATIVE) 04/20/17 21:40 Urine Urobilinogen 0.2 E.U./dL (<1 E.U./dL) 04/20/17 21:40 Ur Leukocyte Esterase Negative Zarina/uL (NEGATIVE) 04/20/17 21:40 Urine RBC 0 - 2 /hpf (0-2) 04/20/17 21:40 Urine WBC 1 - 3 /hpf (0-6) 04/20/17 21:40 Ur Epithelial Cells 0 - 2 /hpf (0-5) 04/20/17 21:40 Lorazepam <10 ng/mL (50-240) L 04/16/17 05:30 Blood Type A POSITIVE 04/18/17 08:30 Antibody Screen Negative 04/18/17 08:30 Crossmatch See Detail 04/18/17 08:30 BBK History Checked Patient has bt 04/18/17 08:30 Attending/Attestation - Attestation I have personally seen and examined this patient.: Yes I have fully participated in the care of the patient.: Yes I have reviewed all pertinent clinical information, including history, physical exam and plan: Yes Notes (Text): I have seen and examined patient with medical investigator. Agree with the above note with the following additions/ exceptions: Briefly this is 56 year old male with a past medical history significant for hypertension, DM-2, CAD S/P CABG and stents , ESRD on hemodialysis, Nephrotic syndrome, anemia, secondary hyperparathyroidism, Marijuana abuse who was admitted for transient episode of hematemesis and required 2 units of prbc. Martinez is in place as he failed voiding trial . Urology recommended to keep the martinez in and outpatient follow up. He had troponins elevation and EKG changes. Stress test was done which showed fixed defect. As there was a discrepancy in EF between echo and stress test, MUGA scan was done which revealed EF of 51%. Patient is not a candidate for antiplatelet therapy due to GI bleeding. Plan for outpatient EGD and colonoscopy. He was found to have HCAP on meropenem. Blood culture from HD catheter grew K pneumonia and second one grew psedomonas. He is on PO cipro. Stool for cdiff toxin is positive and patient remains on PO vanco. Patient had permacath placement today. Continue Lyrica for neuropathic pain. Management plan was discussed in detail with patient. Upon discharge patient will follow up with Dr Ward. Dr Marty Muir
--- NOTE | 2017-04-25 20:11 | PN ---
DATE: 04/25/2017 SUBJECTIVE: The patient is in bed. No acute distress. PHYSICAL EXAMINATION: VITAL SIGNS: Temperature is 98, blood pressure is 115/60, respiratory rate of 24, heart rate of 60. HEENT: Unremarkable. NECK: Supple. LUNGS: Decreased breath sounds. HEART: Normal S1 and S2. ABDOMEN: Soft, nontender. LABORATORY DATA: Reveals a white count of 6.4, hemoglobin of 9 and platelets of 236. Chemistries reveal a BUN of 18, creatinine of 4.0. Procalcitonin is 10. Urinalysis is noted. Blood cultures are negative. ASSESSMENT AND PLAN: This is a 56-year-old male with sepsis, Klebsiella, Pseudomonas bacteremia, 2 separate cultures, status post removal of tunneled catheter and postprocedure day #6 with diabetes, hypertension, end-stage renal disease and for temporary hemodialysis access in a patient with history of coronary bypass graft and history of cerebrovascular accident and rhabdomyolysis. On day #9 of p.o. Cipro, would complete 7-10 days of antibiotics. Case was discussed with Dr. Muir this morning. Review of medications confirmed the Cipro to be active. Boyd Green MD
--- NOTE | 2017-05-09 21:53 | PN ---
DATE: CHIEF COMPLAINT: I feel good today. I am hungry. REVIEW OF SYSTEMS AND HPI: Noted overnight event. Patient did not tolerate dialysis well yesterday. He had episode of confusion. Had CT scan of brain. Chest x-ray done. Also had normal EKG. Patient underwent cardiac catheterization today. He was seen in the CC after cardiac catheterization. Patient at this times feels much better. Denies any chest pain, palpitations, shortness of breath. No nausea, vomiting. Denies any stomach pain. He is orally accepting. He denies any urinary or bowel complaint. He does have a Macias catheter. Patient denies any leg swelling. He denies any headache, tingling, numbness, dizziness at this time. PHYSICAL EXAMINATION: GENERAL: Patient appear comfortable, not in acute distress, pleasant and cooperative. VITAL SIGNS: Noted, stable. Afebrile. Blood pressure 132/68. NEUROLOGIC: Patient A&O x3. Moving all four extremities. No focal deficits noted at this time. CARDIOVASCULAR: S1 and S2 are normal. No murmur. No rub. RESPIRATORY: Bilateral vesicular breath sounds. Clear bilateral. No additional sounds. LUNGS: Bilateral air movement symmetrical. ABDOMEN: Soft, nontender, no organomegaly. No guarding. EXTREMITIES: No edema. GENITOURINARY: Patient has a Macias catheter for urinary retention. Otherwise, there is no palpable bladder or Macias. PSYCHIATRIC: Patient is pleasant, cooperative. His judgement is appropriate. Insight is present. Affect and mood is normal. LABORATORY DATA: Workup, his hemoglobin 12.4, platelet count 267, potassium is 4.8, creatinine is 5.2, glucose 155. Chest x-ray and brain CT scan are unremarkable. Final results on cardiac cath results are pending at this time. MEDICATIONS: His all current medications were also reviewed. Patient is on Lipitor 40 mg, then he get hydralazine 25 mg t.i.d., Levemir 12 units and sliding scale, Imdur 16 mg which is on hold and losartan 100 mg per day, metoprolol 25 mg two times a day, pantoprazole 40 mg daily, Lyrica 75 mg b.i.d. and Nephro-Eleni daily. ASSESSMENT: 1. Diabetic chronic kidney disease. 2. Hypertensive chronic kidney disease. 3. End stage renal disease, on hemodialysis by Perma-Cath. 4. Anemia. 5. Hyperphosphatemia secondary to hyperparathyroidism. 6. Hypertension. 7. Intractable nausea and vomiting status post EGD, which shows esophageal ulceration and gastroparesis. 8. Altered mental status during dialysis, which is resolved. 9. Patient is status post cardiac catheterization today. RECOMMENDATIONS: No acute need for dialysis today. We will plan for dialysis tomorrow. Continue with Nephro-Eleni daily. Hemoglobin is improved ?dehydration as a cause for his raise in hemoglobin. Then, otherwise, his phosphorous level is controlled with dialysis. Continue with blood pressure medications, glycemic control, dialysis diet. Then, he is on PPI. Then, he is stable otherwise from renal prospective. We will reduce the UF goal up to 1 kilo tomorrow for dialysis. Thank you for allowing me to participate in the care of your patient. Please call if any questions. Sancho Garrett MD
== END 2017-04-25 21:36 | disposition home or self-care (01) | DRG 550 ==
LOC: ED 19:34 → ERH 21:13 → CCU 22:45 → 2RNO 04-17 10:08 → 5RSO 04-23 09:30
PROVIDERS: ADMIT Hospitalist; ATTEND Hospitalist
PROC: 02H633Z Insertion of Infusion Device into Right Atrium, Percutaneous Approach (ICD-10-PCS; principal; 2017-04-18)
PROC: B544ZZA Ultrasonography of Left Jugular Veins, Guidance (ICD-10-PCS; 2017-04-18)
PROC: 5A1D60Z (ICD-10-PCS; 2017-04-19)
PROC: 30233N1 Transfusion of Nonautologous Red Blood Cells into Peripheral Vein, Percutaneous Approach (ICD-10-PCS; 2017-04-19)
PROC: 0T9B70Z Drainage of Bladder with Drainage Device, Via Natural or Artificial Opening (ICD-10-PCS; 2017-04-22)
PROC: 05PY33Z Removal of Infusion Device from Upper Vein, Percutaneous Approach (ICD-10-PCS; 2017-04-24)
PROC: 02H633Z Insertion of Infusion Device into Right Atrium, Percutaneous Approach (ICD-10-PCS; 2017-04-24)
PROC: B543ZZA Ultrasonography of Right Jugular Veins, Guidance (ICD-10-PCS; 2017-04-24)
DX: T82.7XXA Infection and inflammatory reaction due to other cardiac and vascular devices, implants and grafts, initial encounter (principal); A41.52 Sepsis due to Pseudomonas; A41.59 Other Gram-negative sepsis; J18.9 Pneumonia, unspecified organism; K92.0 Hematemesis; A04.7 Enterocolitis due to Clostridium difficile; N18.6 End stage renal disease; I12.0 Hypertensive chronic kidney disease with stage 5 chronic kidney disease or end stage renal disease; I42.9 Cardiomyopathy, unspecified; E11.22 Type 2 diabetes mellitus with diabetic chronic kidney disease; D62 Acute posthemorrhagic anemia; E11.42 Type 2 diabetes mellitus with diabetic polyneuropathy; E11.51 Type 2 diabetes mellitus with diabetic peripheral angiopathy without gangrene; E87.6 Hypokalemia; E87.1 Hypo-osmolality and hyponatremia; N25.81 Secondary hyperparathyroidism of renal origin; I25.10 Atherosclerotic heart disease of native coronary artery without angina pectoris; E78.5 Hyperlipidemia, unspecified; E66.9 Obesity, unspecified; F12.10 Cannabis abuse, uncomplicated; E55.9 Vitamin D deficiency, unspecified; R33.9 Retention of urine, unspecified; D63.8 Anemia in other chronic diseases classified elsewhere; Y83.8 Other surgical procedures as the cause of abnormal reaction of the patient, or of later complication, without mention of misadventure at the time of the procedure; Z99.2 Dependence on renal dialysis; I25.2 Old myocardial infarction; Z95.1 Presence of aortocoronary bypass graft; Z86.73 Personal history of transient ischemic attack (TIA), and cerebral infarction without residual deficits; Z95.5 Presence of coronary angioplasty implant and graft; Z79.4 Long term (current) use of insulin; Z89.421 Acquired absence of other right toe(s); Z88.5 Allergy status to narcotic agent; Z91.14 Patient's other noncompliance with medication regimen

== ENCOUNTER 2017-05-07 09:49 | Inpatient (IN) | payer OTHER ==
--- NOTE | 2017-05-07 10:51 | ED PDOC ---
Arrival/HPI - General Chief Complaint: GI Problem Time Seen by Provider: 05/07/17 10:20 Historian: Patient - History of Present Illness Narrative History of Present Illness (Text): 05/07/17 10:51 56 year old male, whose past medical history includes Diabetes, hypertension, ESRD on hemodialysis (Mon, Mon, Mon), bleed, and urinary retention, presents to the emergency department complaining of nausea and vomiting for the past two days. Vomiting is bloody he states. His last dialysis was last Monday and reported no problems. Patient states these symptoms are usual for the past month, but worsen these past two days. He reported he couldn't sleep yesterday, has a fever, sweats, abdominal pain, heart burn, and diarrhea twice a day, but denies any chest pain, shortness of breath, urinary symptoms, back pain, neck pain, headache, dizziness, or any other complaints. PMD: Dr. Kelly Time/Duration: Other (two days) Symptom Course: Unchanged Activities at Onset: Light Context: Home Past Medical History - Provider Review Nursing Documentation Reviewed: Yes - Infectious Disease Hx of Infectious Diseases: None - Tetanus Immunization Tetanus Immunization: Unknown - Cardiac Hx Cardiac Disorders: Yes (CABG x 3) Hx Hypertension: Yes - Pulmonary Hx Respiratory Disorders: Yes Other/Comment: PULMONARY EDEMA - Neurological HX Cerebrovascular Accident: Yes - HEENT Hx HEENT Disorder: Yes (CONTACT LENSES) - Renal Hx Renal Failure: Yes Other/Comment: Dialysis M-W-F - Endocrine/Metabolic Hx Diabetes Mellitus Type 1: Yes - Hematological/Oncological Hx Blood Disorders: No - Integumentary Hx Dermatological Disorder: Yes Other/Comment: millicent hernández ext rash, pt stated "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" - Musculoskeletal/Rheumatological Hx Musculoskeletal Disorders: No Hx Falls: No Other/Comment: generalized weakness - Gastrointestinal Hx Gastrointestinal Disorders: No - Genitourinary/Gynecological Hx Urinary Tract Infection: Yes - Psychiatric Hx Psychophysiologic Disorder: No Hx Depression: No Hx Emotional Abuse: No Hx Physical Abuse: No Hx Substance Use: Yes (MARIJUANA) - Surgical History Hx Amputation: Yes (R toes) Hx Cardiac Catheterization: Yes (09/09) Hx Coronary Stent: Yes Hx Open Heart Surgery: Yes (12-26-12) - Anesthesia Hx Anesthesia: Yes Hx Anesthesia Reactions: No - Suicidal Assessment Feels Threatened In Home Enviroment: No Family/Social History - Physician Review Nursing Documentation Reviewed: Yes Family/Social History: No Known Family HX Smoking Status: Never Smoked Hx Alcohol Use: Yes (QUIT 4 YEARS AGO) Hx Substance Use: Yes (MARIJUANA) Hx Substance Use Treatment: No Allergies/Home Meds Allergies/Adverse Reactions: Allergies Seafood Allergy (Uncoded 05/07/17 10:01) ANAPHYLAXIS Home Medications: Home Meds Medication Instructions Recorded Confirmed Unobtainable 05/07/17 05/07/17 Review of Systems - Physician Review All systems were reviewed & negative as marked: Yes - Review of Systems Constitutional: Fevers, Other (Sweats) Respiratory: absent: SOB Cardiovascular: Other (Heart burn ) Gastrointestinal: Abdominal Pain (Epigastric abdominal pain), Diarrhea, Nausea, Vomiting Genitourinary Male: absent: Dysuria, Frequency, Hematuria Musculoskeletal: absent: Back Pain, Neck Pain Neurological: absent: Headache, Dizziness Physical Exam Vital Signs Reviewed: Yes Vital Signs Temp Pulse Resp BP Pulse Ox 05/07/17 13:54 98.1 F 05/07/17 11:50 89 18 149/88 99 05/07/17 09:56 97.8 F 87 18 152/83 H 96 Temperature: Afebrile Blood Pressure: Normal Pulse: Regular Respiratory Rate: Normal Appearance: Positive for: Well-Appearing, Non-Toxic, Comfortable Pain Distress: None Mental Status: Positive for: Alert and Oriented X 3 - Systems Exam Head: Present: Atraumatic, Normocephalic Pupils: Present: PERRL Extroacular Muscles: Present: EOMI Conjunctiva: Present: Normal Mouth: Present: Moist Mucous Membranes Neck: Present: Normal Range of Motion Respiratory/Chest: Present: Clear to Auscultation, Good Air Exchange, Other ( Right Chest Jaylyn, no erythema ). No: Respiratory Distress, Accessory Muscle Use Cardiovascular: Present: Regular Rate and Rhythm, Normal S1, S2. No: Murmurs Abdomen: Present: Tenderness (Epigastric tenderness ), Normal Bowel Sounds, Guarding (Midline guarding ), Other ([place], Urine yellow and clear). No: Distention, Peritoneal Signs, Rebound Back: Present: Normal Inspection Upper Extremity: Present: Normal Inspection. No: Cyanosis, Edema Lower Extremity: Present: Normal Inspection. No: Edema Neurological: Present: GCS=15, CN II-XII Intact, Speech Normal Skin: Present: Warm, Dry, Normal Color. No: Rashes Psychiatric: Present: Alert, Oriented x 3, Normal Insight, Normal Concentration Medical Decision Making ED Course and Treatment: 05/07/17 10:51 Impression: 56 year old male presents to complaining of nausea and vomiting for the past 2 days Differential Diagnosis included but are not limited to: Gastritis VS Peptic Ulcer Disease vs Upper GI bleed Plan: -- EKG -- Chest X-ray -- Labs -- Pepcid -- Zofran -- IV Saline Lock -- Reassess and disposition Progress Notes: EKG shows NSR at 75 BPM with oA interior leads, T-waves inversal bilateral leads with comparison to pervious EKG 04/09/17 and 04/14/17. Interpreted by me. Chest X-ray Dictated By: Nikita Aponte MD Dictated date/Time: 05/17/12 11:20 FINDINGS: LUNGS: No active pulmonary disease. PLEURA: No significant pleural effusion identified, no pneumothorax apparent. CARDIOVASCULAR: Mild cardiomegaly. OSSEOUS STRUCTURES: Sternal wires VISUALIZED UPPER ABDOMEN: Normal. OTHER FINDINGS: Right-sided dialysis catheter IMPRESSION: No active disease. Patient's vomit was + guaic. He was given Zofran 4mg x 2 with presistant vomiting with some dark brown vomit. There is concern for Upper GI bleed with persistant vomiting in a HD patient. Case discussed with Dr. Godwin who will place on her service. - Lab Interpretations Lab Results: 05/07/17 11:07 05/07/17 11:07 Lab Results 05/07/17 11:07: Sodium 136, Potassium 4.5, Chloride 95 L, Carbon Dioxide 29, Anion Gap 17, BUN 22 H, Creatinine 5.3 H, Est GFR ( Amer) 14, Est GFR ( Non-Af Amer) 11, Random Glucose 222 H, Calcium 9.6, Total Bilirubin 0.9, AST 23 , ALT 31, Alkaline Phosphatase 104, Total Protein 7.4, Albumin 4.2, Globulin 3.2 , Albumin/Globulin Ratio 1.3, Lipase 29 05/07/17 11:07: PT 12.1 H, INR 1.12 H, APTT 30.6 05/07/17 11:07: WBC 6.9, RBC 4.14, Hgb 11.5 L D, Hct 35.9 L, MCV 86.7, MCH 27.8 , MCHC 32.0, RDW 17.1 H, Plt Count 272, MPV 10.7, Gran % 66.4, Lymph % (Auto) 21.8 L, Pierce % (Auto) 10.4 H, Eos % (Auto) 1.0 L, Baso % (Auto) 0.4, Gran # 4.59 , Lymph # 1.5, Pierce # 0.7 H, Eos # 0.1, Baso # 0.03 05/07/17 11:06: Lactate Dehydrogenase 590, Total Creatine Kinase 49, Troponin I 0.04 D I have reviewed the lab results: Yes Interpretation: No clinic. lab abnormalty - RAD Interpretation Radiology Orders: 05/07/17 10:55 CXR [CHEST PORTABLE] [RAD] Stat Data Analyst Report Writer: Radiologist - EKG Interpretation Interpreted by ED Physician: Yes Type: 12 lead EKG - Medication Orders Current Medication Orders: Atorvastatin Calcium (Lipitor) 40 mg PO DIN [facility] Last Admin: 05/07/17 17:52 Dose: 40 mg Insulin Detemir (Levemir) 12 unit SC HS MARYANN Insulin Human Regular (Humulin R Med) 0 units SC ACHS MARYANN PRN Reason: Protocol Isosorbide Mononitrate (Imdur) 60 mg PO DAILY [facility] Losartan Potassium (Cozaar) 100 mg PO DAILY [facility] Metoprolol Tartrate (Lopressor) 25 mg PO BID [facility] Ondansetron HCl (Zofran Inj) 4 mg IVP Q4H PRN PRN Reason: Nausea/Vomiting Pantoprazole Sodium (Protonix Inj) 40 mg IVP DAILY [facility] Pregabalin (Lyrica) 75 mg PO BID [facility] Last Admin: 05/07/17 17:52 Dose: 75 mg Discontinued Medications Amlodipine Besylate (Norvasc) 10 mg PO STAT STA Stop: 05/07/17 17:35 Last Admin: 05/07/17 17:52 Dose: 10 mg Famotidine (Pepcid) 20 mg IVP STAT STA Stop: 05/07/17 10:52 Last Admin: 05/07/17 11:04 Dose: 20 mg Hydralazine HCl (Apresoline) 10 mg IVP ONCE ONE Stop: 05/07/17 18:15 Last Admin: 05/07/17 18:50 Dose: Not Given Non-Admin Reason: BP Parameters Not Met Metoprolol Tartrate (Lopressor) 25 mg PO STAT STA Stop: 05/07/17 16:40 Last Admin: 05/07/17 16:53 Dose: 25 mg Ondansetron HCl (Zofran Inj) 4 mg IVP STAT STA Stop: 05/07/17 10:52 Last Admin: 05/07/17 11:04 Dose: 4 mg Ondansetron HCl (Zofran Inj) 4 mg IVP STAT STA Stop: 05/07/17 12:53 Last Admin: 05/07/17 13:03 Dose: 4 mg Pantoprazole Sodium (Protonix Inj) 40 mg IVP STAT STA Stop: 05/07/17 14:47 Last Admin: 05/07/17 14:55 Dose: 40 mg - Jose Miguelibe Statement The provider has reviewed the documentation as recorded by the Tamara Horne All medical record entries made by the Tamara were at my direction and personally dictated by me. I have reviewed the chart and agree that the record accurately reflects my personal performance of the history, physical exam, medical decision making, and the department course for this patient. I have also personally directed, reviewed, and agree with the discharge instructions and disposition. Disposition/Present on Arrival - Present on Arrival Any Indicators Present on Arrival: No History of DVT/PE: No History of Uncontrolled Diabetes: No Urinary Catheter: No History of Decub. Ulcer: No History Surgical Site Infection Following: None - Disposition Have Diagnosis and Disposition been Completed?: Yes Diagnosis: ESRD on dialysis, Upper GI bleeding, Vomiting Disposition: HOSPITALIZED Disposition Time: 12:12 Patient Plan: Observation Patient Problems: Current Active Problems Problem Status Onset Upper GI bleeding Acute Vomiting Acute ESRD on dialysis Chronic Condition: FAIR
--- NOTE | 2017-05-07 11:22 | RAD ---
HISTORY: abd pain COMPARISON: 04/14/2017 FINDINGS: LUNGS: No active pulmonary disease. PLEURA: No significant pleural effusion identified, no pneumothorax apparent. CARDIOVASCULAR: Mild cardiomegaly. OSSEOUS STRUCTURES: Sternal wires VISUALIZED UPPER ABDOMEN: Normal. OTHER FINDINGS: Right-sided dialysis catheter IMPRESSION: No active disease.
[2017-05-07 11:24] LABS: BASO # 0.03 K/mm3 (0.0-2.0); BASO % 0.4 % (0.0-3.0); EOS # 0.1 (0.0-0.7); GRAN # 4.59 (1.4-6.5); GRAN % 66.4 % (50.0-68.0); HEMATOCRIT 35.9 % (42.0-52.0); INR 1.12 (0.93-1.08); LYMPH # 1.5 (1.2-3.4); LYMPH % 21.8 % (22.0-35.0); MEAN CELL VOLUME 86.7 fl (80.0-105.0); MEAN CORPUSCULAR HEMOGLOBIN 27.8 pg (25.0-35.0); MEAN PLATELET VOLUME 10.7 fl (7.0-11.0); MONO # 0.7 (0.1-0.6); MONO % 10.4 % (1.0-6.0); PARTIAL THROMBOPLASTIN TIME 30.6 Seconds (23.7-30.8); RED CELL DISTRIBUTION WIDTH 17.1 % (11.5-14.5); WHITE BLOOD COUNT 6.9 10^3/ul (4.5-11.0)
[2017-05-07 11:25] LABS: ALB/GLOB RATIO 1.3 (1.1-1.8); BILIRUBIN,TOTAL 0.9 mg/dL (0.2-1.3); CALCIUM 9.6 mg/dL (8.4-10.5); POTASSIUM 4.5 mmol/L (3.6-5.0); TOTAL PROTEIN 7.4 g/dL (5.8-8.3)
[2017-05-07 11:47] LABS: TROPONIN I 0.04 ng/mL
[2017-05-07 15:43] VITALS: BMI 29.5
--- NOTE | 2017-05-07 17:02 | CP.PCM.HP ---
<Kayleigh Martinez - Last Filed: 05/07/17 17:14> History of Present Illness - History of Present Illness History of Present Illness: CC: Vomiting 56 year old male with a past medical history significant for hypertension, DM-2 , CAD S/P CABG and stents , ESRD on hemodialysis, , anemia, secondary who presents to [facility] complaining of 6 episodes of vomiting, some hematemesis, in the past 1.5 days. He reports his last dialysis was last Monday and reported no problems. Patient states these symptoms are usual for the past month, but worsen these past two days. He reported he couldn't sleep yesterday, has a fever , sweats, abdominal pain, heart burn, and diarrhea twice a day, but denies any chest pain, shortness of breath, urinary symptoms, back pain, neck pain, headache, dizziness, or any other complaint PMH: ESRD on HD, CAD, HTN, [place] x 3, DM, peripheral neuropathy, history of falls, history of CVA, AMS PSH: Stents x 3, CABG, left hip surgery, Left knee surgery, Right foot partial amputation All: Morphine, seafood SH: Denies recent tobacco, etoh ID: THC use in recent past, lives with roomate, ambulates with assistance of walker Medication: See MAR Present on Admission - Present on Admission Any Indicators Present on Admission: Yes History of DVT/PE: Yes History of Uncontrolled Diabetes: Yes Review of Systems - Constitutional Constitutional: Chills, Weakness Past Patient History - Infectious Disease Hx of Infectious Diseases: None - Tetanus Immunizations Tetanus Immunization: Unknown - Past Medical History & Family History Past Medical History?: Yes - Past Social History Smoking Status: Former Smoker - CARDIAC Hx Cardiac Disorders: Yes (CABG x 3) Hx Hypertension: Yes - PULMONARY Hx Respiratory Disorders: Yes Other/Comment: PULMONARY EDEMA - NEUROLOGICAL HX Cerebrovascular Accident: Yes - HEENT Hx HEENT Problems: Yes (CONTACT LENSES) - RENAL Date of Last Dialysis Treatment: 05/05/17 Hx Renal Failure: Yes Other/Comment: Dialysis M-W-F - ENDOCRINE/METABOLIC Hx Diabetes Mellitus Type 1: Yes - HEMATOLOGICAL/ONCOLOGICAL Hx Blood Disorders: No - INTEGUMENTARY Hx Dermatological Problems: Yes Other/Comment: millicent hernández ext rash, pt stated "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" - MUSCULOSKELETAL/RHEUMATOLOGICAL Hx Falls: No - GASTROINTESTINAL Hx Gastrointestinal Disorders: No - GENITOURINARY/GYNECOLOGICAL Hx Urinary Tract Infection: Yes - PSYCHIATRIC Hx Psychophysiologic Disorder: No Hx Depression: No Hx Emotional Abuse: No Hx Physical Abuse: No Hx Substance Use: Yes (marijuna) - SURGICAL HISTORY Hx Amputation: Yes (R toes) Hx Cardiac Catheterization: Yes (09/09) Hx Coronary Stent: Yes Hx Open Heart Surgery: Yes (12-26-12) - ANESTHESIA Hx Anesthesia: Yes Hx Anesthesia Reactions: No Meds Allergies/Adverse Reactions: Allergies Allergy/AdvReac Type Severity Reaction Status Date / Time Seafood Allergy ANAPHYLAXIS Uncoded 05/07/17 10:01 Physical Exam - Constitutional Appears: Non-toxic, Older Than Stated Age - Head Exam Head Exam: ATRAUMATIC, NORMOCEPHALIC - Eye Exam Eye Exam: EOMI, Normal appearance, PERRL - ENT Exam ENT Exam: Mucous Membranes Moist, Normal Oropharynx - Neck Exam Neck exam: Positive for: Normal Inspection - Respiratory Exam Respiratory Exam: Clear to Auscultation Bilateral, NORMAL BREATHING PATTERN. absent: Wheezes - Cardiovascular Exam Cardiovascular Exam: RRR, +S1, +S2 - GI/Abdominal Exam GI & Abdominal Exam: Normal Bowel Sounds, Soft. absent: Guarding, Rebound - Extremities Exam Extremities exam: Positive for: normal capillary refill, normal inspection, pedal pulses present. Negative for: calf tenderness - Back Exam Back exam: NORMAL INSPECTION. absent: CVA tenderness (L), CVA tenderness (R) - Neurological Exam Neurological exam: Alert, CN II-XII Intact, Oriented x3 - Psychiatric Exam Psychiatric exam: Normal Affect, Normal Mood - Skin Skin Exam: Dry, Intact, Normal Color, Warm Results - Vital Signs Recent Vital Signs: Last Vital Signs Temp 98.2 F 05/07/17 16:30 Pulse 76 05/07/17 16:53 Resp 20 05/07/17 16:30 BP 200/103 H 05/07/17 16:53 Pulse Ox 100 05/07/17 16:30 - Labs Result Diagrams: 05/07/17 11:07 05/07/17 11:07 Assessment & Plan - Assessment and Plan (Free Text) Assessment: 56 year old with ESRD, hypertension, DM, and CAD who presents with 1 day of vomiting, with noted blood. Important to note patient has had multiple episodes of suspected GI bleeds, and thus on no anticoagulation or antiplatelet therapy. Plan: 1) Hematemesis - GI consulted, Dr. Selwyn Rios. - Patient is on clear liquids, NPO except for medications past midnight, with plans on doing Upper Endoscopy tomorrow. - Zofran 4mg q4h PRN - Protonix 40 mg IVP daily 2) ESRD - Nephrology consulted, Dr. Garrett 3) Hypertension - Metoprolol 25 mg BID - Losartan 100 mg - Will consider adding Amlodipine if BP not controlled on the above two 4) CAD - Imdur 60 mg - Lipitor 40 mg - Cardiology will be on anticoagulation status once Upper Endoscopy is performed 5) DVT/GI: Protonix/SCDs 6) DM II - Levemir 10 mg HS - ISS regular insulin low with fingerstick blood glucose ACHS - Date & Time Date: 05/07/17 Time: 17:33 <Jennifer Ritter - Last Filed: 05/07/17 18:53> Results - Vital Signs Recent Vital Signs: Last Vital Signs Temp 98.2 F 05/07/17 16:30 Pulse 74 05/07/17 18:38 Resp 20 05/07/17 16:30 BP 155/85 H 05/07/17 18:38 Pulse Ox 100 05/07/17 16:30 - Labs Result Diagrams: 05/07/17 11:07 05/07/17 11:07 Attending/Attestation - Attestation I have personally seen and examined this patient.: Yes I have fully participated in the care of the patient.: Yes I have reviewed all pertinent clinical information: Yes Notes (Text): 05/07/17 18:49 56 year old male with past medical history of ESRD, CAD, hypertension and diabetes who presented with nausea and vomiting with reported hematemesis. He presented recently with similar presentation and was to follow up with GI for elective EGD/colonoscopy which he failed to comply with. He is currently not on anticoagulation or antiplatelet therapy due to anemia and possible GIB earlier as per cardiology. GI evaluation is requested for possible EGD evaluation. Continue with liquid diet for now. Continue with protonix and zofran prn. Nephrology evaluation requested for ESRD. Jennifer Ritter MD Hospitalist.
[2017-05-07] MEDS ORDERED: Sodium Chloride 0.9% 100 ML IV SCH (17:25)
--- NOTE | 2017-05-07 18:02 | CARD ---
APPROVED REPORT EKG Measurement Heart [id number] <Conclusion> Normal sinus rhythm Inferior infarct, age undetermined Anteroseptal infarct, age undetermined Abnormal ECG
[2017-05-07] MEDS: Insulin Reg-MEDIUM-Coverage SC SCH (21:42)
[2017-05-07] MEDS: Insulin Detemir 100 units/ml Vial (Levemir) SC SCH (21:45)
[2017-05-08 06:56] LABS: CALCIUM 8.8 mg/dL (8.4-10.5); POTASSIUM 4.1 mmol/L (3.6-5.0)
[2017-05-08 06:58] LABS: BASO # 0.04 K/mm3 (0.0-2.0); BASO % 0.6 % (0.0-3.0); EOS # 0.3 (0.0-0.7); EOS % 3.9 % (1.5-5.0); GRAN # 3.51 (1.4-6.5); GRAN % 52.9 % (50.0-68.0); HEMATOCRIT 34.6 % (42.0-52.0); LYMPH % 30.7 % (22.0-35.0); MEAN CELL VOLUME 87.2 fl (80.0-105.0); MEAN CORPUSCULAR HEMOGLOBIN 27.2 pg (25.0-35.0); MEAN CORPUSCULAR HGB CONC 31.2 g/dl (31.0-37.0); MEAN PLATELET VOLUME 10.6 fl (7.0-11.0); MONO # 0.8 (0.1-0.6); MONO % 11.9 % (1.0-6.0); RED CELL DISTRIBUTION WIDTH 16.9 % (11.5-14.5); WHITE BLOOD COUNT 6.6 10^3/ul (4.5-11.0)
--- NOTE | 2017-05-08 07:57 | CON ---
DATE: 05/07/2017 HISTORY OF PRESENT ILLNESS: This patient was seen and evaluated earlier. Discussed with Dr. Ritter, hospitalist and also the resident. This 56-year-old patient with a history of diabetes mellitus; coronary artery disease, status post CABG, stents; end-stage renal disease, on hemodialysis; history of anemia; who was recently discharged from the hospital, came back to the hospital with episodes of vomiting, hematemesis in the past one and a half days. The patient denies any melena. The patient complains of an abdominal discomfort, mainly upper abdomen, and also the heartburn. The patient was in the hospital recently with sepsis, pneumonia, and bacteremia, PermCath infection, status post removal at that time. The patient was found to have mildly elevated troponin level. The patient's hemoglobin on admission was about 11.5. The patient did have PTCA done about 10 years ago and also coronary artery bypass done. The patient has peripheral arterial disease. The patient had a drop in blood count during the last admission from 12 g of hemoglobin to 8.7. At that time, it was felt by the cardiology, he is not a candidate for repeat cardiac cath unless the active GI issue was resolved. The patient was managed conservatively with PPI. Plan was discharge home to have GI workup as an outpatient, outpatient EGD and colonoscopy. The patient is now admitted because of the recurrent episodes of vomiting blood. PAST MEDICAL HISTORY: Other past medical history as above. History of peripheral neuropathy, diabetes mellitus, status post CVA, CABG, left hip surgery, left knee surgery, right foot partial amputation, peripheral arterial disease. SOCIAL HISTORY: Denies smoking. No alcohol now. ALLERGIES: MORPHINE AND SEAFOOD. REVIEW OF SYSTEMS: Positive as above. Other systems reviewed. PHYSICAL EXAMINATION GENERAL: The patient is lying on the bed, not in acute distress. VITAL SIGNS: Blood pressure is 155/85, pulse 74, afebrile. HEENT: Atraumatic and anicteric. NECK: Supple. HEART: S1, S2 heard. LUNGS: Bilateral air entry present. ABDOMEN: Soft. There is no mass palpable. No tenderness. EXTREMITIES: No cyanosis, no clubbing. LABORATORY DATA: Hemoglobin 11.5, hematocrit 35.9, WBC 6.9, platelets 272. Creatinine 5.3, BUN 22. LFTs normal. The patient's previous imaging studies, CAT scan reviewed, it was done 04/14, which was mild colitis versus underdistention noticed. Mild bladder wall thickening. IMPRESSION: This 56-year-old patient with past medical history of diabetes mellitus, hypertension, dyslipidemia, coronary artery disease, status post coronary artery bypass graft, status post percutaneous coronary intervention, end-stage renal disease, on hemodialysis, presented with vomiting blood, nausea for the past one and a half days. Hemoglobin appears to be stable. The concern is recurrent episodes of vomiting. The patient did have an elevated troponin level last time and cardiac catheterization and a workup was deferred pending the GI workup. The patient is due to have the GI workup completed as an outpatient. The real concern now is persistent episodes of hematemesis. Differential diagnosis for upper GI bleeding should include Joellen-Best tear, erosive esophagitis, peptic ulcer disease and neoplasia to be considered. The patient would benefit from upper GI endoscopy to further evaluate. He has been scheduled for the procedure in the a.m. We will start the patient on a liquid diet. Continue the liquid diet. We will start the patient on pantoprazole. Follow up with hemoglobin. Thank you very much for allowing us to participate in the care of the patient, we will continue to closely followup with his care and suggest other management based on the clinical course. Selwyn Rios MD
[2017-05-08] MEDS: Insulin Reg-MEDIUM-Coverage SC SCH ×3 (08:02→21:51)
[2017-05-08] MEDS ORDERED: Propofol 10 mg/ml Inj (20 ML) ONE (09:26)
[2017-05-08] MEDS ORDERED: Etomidate 20 mg/10ml Inj IV ONE (09:26)
[2017-05-08] MEDS ORDERED: Sodium Chloride 0.9% 1,000 ML IV SCH (09:45)
--- NOTE | 2017-05-08 14:18 | CP.PCM.CON ---
History of Present Illness - History of Present Illness History of Present Illness: Initial Nephrology Consultation: Assessment: Stable Diabetic chronic Kidney Disease (E11.22) Hypertensive Chronic Kidney Disease (I12.0) End stage renal disease (N18.6) dependence on hemodialysis (Z99.2) (MWF) via permacath Anemia (D64.9), Hyperphosphatemia (E83.39), Secondary Hyperparathyroidism (E21.1 ), HTN (I12.0) intractable nausea/vomitting s/p EGD 05/08/17 spencer showed esophageal ulceration , gastroparesis Plan: Will plan for HD today as ordered. continue with Nephrovite 1 tab/day. PRBC as needed for anemia. On BEREKET as aransep 60 mcg wekly, last Hb 10.8 last phos level 4.7 Continue with hectorol 1 mcg with dialysis. Last PTH level 463. BP control with meds as ordered. Patient on RAAS anjelica Glycemic control, Dialysis consistent diet Further work up/management as per primary team Dose meds/antibiotics (if needed) for ESRD status. Avoid fleets enema/magnesium based laxatives. pt started on PPI ? reglan for gastroparesis Thanks for allowing me to participate in care of your patient. Will follow patient with you. Please call if any Qs Dr Sancho Garrett Office: [phone] Chief Complaint; nausea/vomitting Reason for consult; KITA HPI: Pt is a 56 y/o M with hx of ESRD on hemodialysis (MWF) via permacath, last dialysis monday, chronic anemia, hyperphosphatemia, secondary hyperparathyroidism, Diabetes Mellitus, hypertension, urine retention s/p martinez , recent permacath related infection presented with complaints of intractable nausea/vomitting and underwent EGD today whlam showed esophageal ulceration, gastroparesis he feels better now Denies chest pain, palpitation, shortness of breath, leg swelling ROS: Constitutional Symptoms: Denies fever. No chills. No Recent Weight Changes Eyes: denies change in vision, denies watery eyes, denies double vision Ears/Nose/Mouth/Throat: Denies Abnormal Taste. No Bad breath or Bad Taste. Cardiovascular: No chest pain. There is no shortness of breath. No palpitations. Pulmonary: No shortness of breath or cough. Gastrointestinal: denies abdominal pain now No nausea. No vomiting. Denies change in bowel habits. Denies Bleeding Genitourinary: makes urine. No associated pain or blood. has martinez Neurological: Denies headaches. No dizziness. Denies loss of balance. Denies weakness, denies tingling/numbness Dermatological: No Rash or Bruising or ulcers. Psychiatric: Denies Anxiety. No depression. Denies hallucinations. Rheumatological: No joint pain. Denies Joint swelling Endocrine: Denies over tiredness. Denies Fatigue and denies Heat/Cold Intolerance. All other negative. Physical Examination: General Appearance: Comfortable, in no acute respiratory distress, co-operative . Vitals reviewed and noted as below Head; Atraumatic, normocephalic ENT: no ulcers no thrush. Tongue is midline. Oropharynx: no rash or ulcers. EYES: Pupils are equal, round and reactive to light accommodation. Eye muscles and extraocular movement intact. Sclera is anicteric. Neck; supple no lymphadenopathy, no thyromegaly or bruit Lungs: Normal respiratory rate/effort. Breath sounds bilateral equal and clear Heart: Normal rate. s1s2 normal. No rub or gallop. Extremities: no edema. No varicose veins Neurological: Patient is alert, awake and oriented to person, place and time. No focal deficit. Strength bilateral appropriate and equal Skin: Warm and dry. Normal turgor. No rash. Palpitation: Normal elasticity for age Abdomen: Abdomen is soft. Bowel sounds +. There is no abdominal tenderness, no guarding/rigidity or organomegaly Psych: normal insight and normal affect/mood MSK: no joint tenderness or swelling. Digits and nails normal, no deformity. had toe amputations : kidney or bladder not palpable. has martinez Access: permacath Labs/imaging reviewed. Past medical history, past surgical history, family history, social history, allergy reviewed and noted as below Family Hx: no hx of CKD. Non contributory Past Patient History - Infectious Disease Hx of Infectious Diseases: None - Tetanus Immunizations Tetanus Immunization: Unknown - Past Medical History & Family History Past Medical History?: Yes - Past Social History Smoking Status: Never Smoked - CARDIAC Hx Cardiac Disorders: Yes (CABG x 3) Hx Hypertension: Yes - PULMONARY Hx Respiratory Disorders: Yes Other/Comment: PULMONARY EDEMA - NEUROLOGICAL HX Cerebrovascular Accident: Yes - HEENT Hx HEENT Problems: Yes (CONTACT LENSES) - RENAL Hx Renal Failure: Yes Other/Comment: Dialysis M-W-F - ENDOCRINE/METABOLIC Hx Diabetes Mellitus Type 1: Yes - HEMATOLOGICAL/ONCOLOGICAL Hx Blood Transfusions: Yes Hx Blood Transfusion Reaction: Yes - INTEGUMENTARY Hx Dermatological Problems: Yes Other/Comment: millicent hernández ext rash, pt stated "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" - MUSCULOSKELETAL/RHEUMATOLOGICAL Hx Musculoskeletal Disorders: No Hx Falls: No Other/Comment: generalized weakness - GASTROINTESTINAL Hx Gastrointestinal Disorders: No - GENITOURINARY/GYNECOLOGICAL Hx Urinary Tract Infection: Yes - PSYCHIATRIC Hx Psychophysiologic Disorder: No Hx Depression: No Hx Emotional Abuse: No Hx Physical Abuse: No Hx Substance Use: Yes (MARIJUANA) - SURGICAL HISTORY Hx Surgeries: Yes - ANESTHESIA Hx Anesthesia Reactions: No Hx Malignant Hyperthermia: No Meds Home Medications: Home Medication List Medication Instructions Recorded Confirmed Type Atorvastatin [Lipitor] 40 mg PO DIN #0 tab 05/08/17 Rx Insulin Detemir [Levemir] 12 unit SC HS unit 05/08/17 Rx Isosorbide Mononitrate [Imdur] 60 mg PO DAILY tab 05/08/17 Rx Losartan [Cozaar] 100 mg PO DAILY tab 05/08/17 Rx Metoprolol Tartrate [Lopressor] 25 mg PO BID tab 05/08/17 Rx Pantoprazole Sodium [Protonix] 40 mg PO DAILY #30 tablet. 05/08/17 Rx Pregabalin [Lyrica] 75 mg PO BID cap 05/08/17 Rx hydrALAZINE [Apresoline] 25 mg PO TID tab 05/08/17 Rx Allergies/Adverse Reactions: Allergies Allergy/AdvReac Type Severity Reaction Status Date / Time Seafood Allergy ANAPHYLAXIS Uncoded 05/07/17 10:01 - Medications Medications: Current Medications Atorvastatin Calcium (Lipitor) 40 mg PO DIN MARYANN Last Admin: 05/07/17 17:52 Dose: 40 mg Hydralazine HCl (Apresoline) 25 mg PO TID MARYANN Sodium Chloride (Sodium Chloride 0.9%) 1,000 mls @ 100 mls/hr IV .Q10H MARYANN Insulin Detemir (Levemir) 12 unit SC HS MARYANN Last Admin: 05/07/17 21:45 Dose: 12 unit Insulin Human Regular (Humulin R Med) 0 units SC ACHS [facility] PRN Reason: Protocol Last Admin: 05/08/17 08:02 Dose: Not Given Isosorbide Mononitrate (Imdur) 60 mg PO DAILY [facility] Losartan Potassium (Cozaar) 100 mg PO DAILY [facility] Metoprolol Tartrate (Lopressor) 25 mg PO BID [facility] Ondansetron HCl (Zofran Inj) 4 mg IVP Q4H PRN PRN Reason: Nausea/Vomiting Pantoprazole Sodium (Protonix Inj) 40 mg IVP DAILY [facility] Last Admin: 05/08/17 11:23 Dose: 40 mg Pregabalin (Lyrica) 75 mg PO BID [facility] Last Admin: 05/08/17 11:23 Dose: 75 mg Results - Vital Signs Recent Vital Signs: Last Vital Signs Temp 98 F 05/08/17 10:41 Pulse 87 05/08/17 10:41 Resp 16 05/08/17 10:41 BP 166/89 H 05/08/17 10:41 Pulse Ox 98 05/08/17 10:41 - Labs Result Diagrams: 05/08/17 06:30 05/08/17 06:30 Labs: Laboratory Results - last 24 hr 05/07/17 05/08/17 05/08/17 21:28 06:30 06:30 WBC 6.6 RBC 3.97 Hgb 10.8 L Hct 34.6 L MCV 87.2 MCH 27.2 MCHC 31.2 RDW 16.9 H Plt Count 286 MPV 10.6 Gran % 52.9 Lymph % (Auto) 30.7 [place] % (Auto) 11.9 H Eos % (Auto) 3.9 Baso % (Auto) 0.6 Gran # 3.51 Lymph # 2.0 [place] # 0.8 H Eos # 0.3 Baso # 0.04 Sodium 139 Potassium 4.1 Chloride 98 Carbon Dioxide 30 Anion Gap 15 BUN 24 H Creatinine 6.1 H Est GFR ( Amer) 12 Est GFR (Non-Af Amer) 10 POC Glucose (mg/dL) 192 H Random Glucose 122 H Calcium 8.8 05/08/17 05/08/17 07:16 11:10 WBC RBC Hgb Hct MCV MCH MCHC RDW Plt Count MPV Gran % Lymph % (Auto) [place] % (Auto) Eos % (Auto) Baso % (Auto) Gran # Lymph # [place] # Eos # Baso # Sodium Potassium Chloride Carbon Dioxide Anion Gap BUN Creatinine Est GFR ( Amer) Est GFR (Non-Af Amer) POC Glucose (mg/dL) 130 H 120 H Random Glucose Calcium
[2017-05-08 19:37] LABS: HEMATOCRIT 38.2 % (42.0-52.0); MEAN CELL VOLUME 86.6 fl (80.0-105.0); MEAN CORPUSCULAR HEMOGLOBIN 27.9 pg (25.0-35.0); MEAN CORPUSCULAR HGB CONC 32.2 g/dl (31.0-37.0); MEAN PLATELET VOLUME 10.4 fl (7.0-11.0); RED CELL DISTRIBUTION WIDTH 16.6 % (11.5-14.5); WHITE BLOOD COUNT 3.4 10^3/ul (4.5-11.0)
[2017-05-08 19:41] LABS: VENOUS BLOOD GAS BASE EXCESS 5.1 mmol/L (0.0-2.0); VENOUS BLOOD PH 7.52 (7.32-7.43)
[2017-05-08 19:48] LABS: ALB/GLOB RATIO 1.2 (1.1-1.8); BILIRUBIN,TOTAL 1.2 mg/dL (0.2-1.3); CALCIUM 8.8 mg/dL (8.4-10.5); MAGNESIUM 1.5 mg/dL (1.7-2.2); PHOSPHOROUS 2.2 mg/dL (2.5-4.5); POTASSIUM 3.2 mmol/L (3.6-5.0); TOTAL PROTEIN 7.1 g/dL (5.8-8.3)
[2017-05-08 19:52] LABS: INR 1.11 (0.93-1.08); PARTIAL THROMBOPLASTIN TIME 29.8 Seconds (23.7-30.8)
[2017-05-08] MEDS ORDERED: Nitroglycerin 50mg in D5W 50 MG/250 ML BOTTLE IV PRN (19:53)
[2017-05-08 19:58] LABS: TROPONIN I 0.03 ng/mL
--- NOTE | 2017-05-08 20:31 | CP.PCM.PN ---
Objective - Vital Signs/Intake and Output Vital Signs (last 24 hours): Temp Pulse Resp BP Pulse Ox 99.2 F 111 H 18 180/97 H 96 05/08/17 18:00 05/08/17 18:00 05/08/17 18:00 05/08/17 18:00 05/08/17 18:00 Intake and Output: 05/08/17 05/09/17 18:59 06:59 Intake Total 75 Balance 75 - Medications Medications: Current Medications Atorvastatin Calcium (Lipitor) 40 mg PO DIN [facility] Last Admin: 05/07/17 17:52 Dose: 40 mg Hydralazine HCl (Apresoline) 25 mg PO TID [facility] Last Admin: 05/08/17 18:50 Dose: Not Given Nitroglycerin/Dextrose (Nitroglycerin 50 Mg/250 Ml D5w) 50 mg in 250 mls @ 1.5 mls/hr IV .Q24H PRN; Protocol; 5 MCG/MIN PRN Reason: Chest Pain Potassium Chloride (Potassium Chloride 20 Meq/100 Ml) 20 meq in 100 mls @ 50 mls/hr IVPB ONCE ONE Stop: 05/08/17 22:17 Insulin Detemir (Levemir) 12 unit SC HS [facility] Last Admin: 05/07/17 21:45 Dose: 12 unit Insulin Human Regular (Humulin R Med) 0 units SC ACHS [facility] PRN Reason: Protocol Last Admin: 05/08/17 18:51 Dose: Not Given Isosorbide Mononitrate (Imdur) 60 mg PO DAILY [facility] Losartan Potassium (Cozaar) 100 mg PO DAILY [facility] Metoprolol Tartrate (Lopressor) 25 mg PO BID [facility] Last Admin: 05/08/17 18:52 Dose: Not Given Ondansetron HCl (Zofran Inj) 4 mg IVP Q4H PRN PRN Reason: Nausea/Vomiting Last Admin: 05/08/17 18:52 Dose: 4 mg Pantoprazole Sodium (Protonix Inj) 40 mg IVP DAILY [facility] Last Admin: 05/08/17 11:23 Dose: 40 mg Pregabalin (Lyrica) 75 mg PO BID [facility] Last Admin: 05/08/17 11:23 Dose: 75 mg Vitamin B Complex/Vit C/Folic Acid (Nephro-Eleni) 1 tab PO 0800 [facility] - Labs Labs: 05/08/17 19:30 05/08/17 19:30 PT 12.0 Seconds (9.9-11.8) H 05/08/17 19:30 INR 1.11 (0.93-1.08) H 05/08/17 19:30 APTT 29.8 Seconds (23.7-30.8) 05/08/17 19:30
--- NOTE | 2017-05-08 20:56 | CP.PCM.PCO ---
Summary - Summary of Event Summary of Event: Was paged by nursing for this patient regarding AMS with associated nausea, vomiting, and pale skin. Evaluation of patient revealed patient was disoriented to place and time. On review of systems patient complained of non- radiating chest pain, SOB, and overall fatigue. Physical examination revealed patient was tachycardic (113-120) normotensive (140/83), afebrile, with 02 saturation of 100%. CN II-XII were intact and patient had 5/5 muscle strength in the upper and lower extremities b/l. +S1,S2 with systolic murmur, and poor capillary refill. Stat EKG, CMP, CBC, Trops, and fingersticks were ordered verbally. Stat EKG showed ST changes in the lateral leads different from previous EKG. Verbal order was given to nurse for ASA 81, to call a code heart , and contact director of events coroner's juror. Case was discussed with Medical Laboratory Manager coroner's juror (Dr. Fisher). As per Dr. Fisher, not a STEMI, so code heart was cancelled. Likely ischemic event. In setting of ESRD on HD in setting of acutely disoriented/confused, need to rule out cerebral bleed; head CT ordered and no anticoag given. Additionally, patient was placed on tridil drip and serial troponins were ordered. Patient was then transferred to ICU for closer monitoring. Patient seen, discussed with reviewed with House physician coroner's juror (Dr. Lamont Muir) . Patient discussed with Medical Laboratory Manager coroner's juror (Dr. Fisher) Pilar Foster - PGY-1
[2017-05-08] MEDS ORDERED: Heparin 25,000units in D5W 25,000 UNITS/250 ML BAG IV SCH (21:15)
--- NOTE | 2017-05-08 21:47 | CT ---
EXAM: CT Head Without Intravenous Contrast CLINICAL HISTORY: 56 years old, male; Pain; Headache; Headache not specified; Additional info: R/O bleed TECHNIQUE: Axial computed tomography images of the head/brain without intravenous contrast. All CT scans at this facility use one or more dose reduction techniques, viz.: automated exposure control; ma/kV adjustment per patient size (including targeted exams where dose is matched to indication; i.e. head); or iterative reconstruction technique. COMPARISON: CT - HEAD W/O CONTRAST 04/08/2017 2:58:20 PM FINDINGS: Brain: Mild atrophy. No intracranial hemorrhage. No mass. Few scattered foci of decreased attenuation within periventricular/subcortical white matter. Chronic lacunar infarct within LEFT basal ganglia. No definite edema. Ventricles: No hydrocephalus. Bones/joints: No acute fracture. Chronic deformity RIGHT nasal bone. Soft tissues: Unremarkable. Vasculature: Atherosclerotic disease of intracranial arteries. Sinuses: Scattered minimal mucosal thickening. Mastoid air cells: No mastoid effusion. Orbits: Unremarkable as visualized. IMPRESSION: 1. Nonspecific white matter changes. Acute infarction may be CT occult within first 24 hours. If a focal deficit persists, consider followup CT or MRI for further evaluation. 2. Incidental/non-acute findings are described above.
[2017-05-08] MEDS: Insulin Detemir 100 units/ml Vial (Levemir) SC SCH (21:55)
[2017-05-08] MEDS ORDERED: Magnesium Sulfate 2 GM in Sodium Chloride 0.9% 100 ML IVPB ONE (22:57)
--- NOTE | 2017-05-08 23:02 | CP.PCM.CON ---
<GAURAV DAHL - Last Filed: 05/08/17 23:55> History of Present Illness - History of Present Illness History of Present Illness: Gaurav Dahl DO PGY1 - ICU Consult Note CC: AMS HPI: 56 yo M with PMH of DM, HTN, CAD with MIx3 s/p CABG and stents, ESRD recently placed on HD, history of CVA, who originally presented [place] [facility] [place] and hematemesis. Today, he had a session of HD during which he reports that he was uncomfortable, diaphoretic, nauseous, fatigued, and he tolerated only 3 of 4 rounds, by which time 2L of fluid had been taken off. Afterwards, nurses noted that he was acting strange, and was found to be oriented only to self. Stat labs and EKG were ordered, the latter showed ST elevations in leads III and V1, and ST depressions in leads I and aVL, though his troponin was below his baseline. ST-T wave changes were present in prior EKGs, but appeared slightly increased in magnitude. Code heart was called on the floor, but then cancelled after cardiology was contacted, who instead recommended starting a nitro drip, and obtaining a head CT to r/o CVA. Currently, he is awake and alert , with no particular complaints. He recalls his experience during dialysis and the way he felt afterwards, though he reports no confusion contrary to nurse reports. He denies CP, SOB, diaphoresis, N/V, F/C, abdominal pain, arm/neck pain , confusion. PMH: ESRD on HD, CAD, HTN, FL x 3, DM, peripheral neuropathy, history of falls, history of CVA PSH: Stents x 3, CABG, left hip surgery, Left knee surgery, Right foot partial amputation All: Morphine, seafood SH: Denies recent tobacco, EtOH denies, Illicits: THC use in recent past, lives with roomate, ambulates with assistance of walker Medication: See MAR ROS: Constitutional: pt denies fever, chills, generalized weakness ENT: pt denies dysphagia, rhinorrhea Eyes: pt denies sudden loss of vision, diplopia, blurred vision MSK: pt denies muscle stiffness, joint pain, extremity cramping Cardio: pt denies sob, heart murmur, CP Pulm: pt denies cough, hemoptysis, wheeze GI: pt denies loss of appetite, abdominal pain, constipation, melena, n/v/d : pt denies burning on urination, urinary frequency, hematuria, urinary urgency Neuro: pt denies paresis, paresthesia, dizziness, guerra, numbness, tingling Derm: pt denies skin changes, lesions, nail changes Endo: pt denies intolerance to heat/cold, diaphoresis, night sweats, polydipsia Psych: pt denies anxiety, depression, mood changes Past Patient History - Infectious Disease Hx of Infectious Diseases: None - Tetanus Immunizations Tetanus Immunization: Unknown - Past Medical History & Family History Past Medical History?: Yes - Past Social History Smoking Status: Never Smoked - CARDIAC Hx Cardiac Disorders: Yes (CABG x 3) Hx Hypertension: Yes - PULMONARY Hx Respiratory Disorders: Yes Other/Comment: PULMONARY EDEMA - NEUROLOGICAL HX Cerebrovascular Accident: Yes - HEENT Hx HEENT Problems: Yes (CONTACT LENSES) - RENAL Hx Renal Failure: Yes Other/Comment: Dialysis M-W-F - ENDOCRINE/METABOLIC Hx Diabetes Mellitus Type 1: Yes - HEMATOLOGICAL/ONCOLOGICAL Hx Blood Transfusions: Yes Hx Blood Transfusion Reaction: Yes - INTEGUMENTARY Hx Dermatological Problems: Yes Other/Comment: millicent hernández ext rash, pt stated "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" - MUSCULOSKELETAL/RHEUMATOLOGICAL Hx Musculoskeletal Disorders: No Hx Falls: No Other/Comment: generalized weakness - GASTROINTESTINAL Hx Gastrointestinal Disorders: No - GENITOURINARY/GYNECOLOGICAL Hx Urinary Tract Infection: Yes - PSYCHIATRIC Hx Psychophysiologic Disorder: No Hx Depression: No Hx Emotional Abuse: No Hx Physical Abuse: No Hx Substance Use: Yes (MARIJUANA) - SURGICAL HISTORY Hx Surgeries: Yes - ANESTHESIA Hx Anesthesia Reactions: No Hx Malignant Hyperthermia: No Meds Home Medications: Home Medication List Medication Instructions Recorded Confirmed Type Atorvastatin [Lipitor] 40 mg PO DIN #0 tab 05/08/17 Rx Famotidine [Pepcid] 40 mg PO HS #30 tab 05/08/17 Rx Insulin Detemir [Levemir] 12 unit SC HS unit 05/08/17 Rx Isosorbide Mononitrate [Imdur] 60 mg PO DAILY tab 05/08/17 Rx Losartan [Cozaar] 100 mg PO DAILY tab 05/08/17 Rx Metoprolol Tartrate [Lopressor] 25 mg PO BID tab 05/08/17 Rx Pantoprazole Sodium [Protonix] 40 mg PO DAILY #30 tablet. 05/08/17 Rx Pregabalin [Lyrica] 75 mg PO BID cap 05/08/17 Rx hydrALAZINE [Apresoline] 25 mg PO TID tab 05/08/17 Rx Allergies/Adverse Reactions: Allergies Allergy/AdvReac Type Severity Reaction Status Date / Time Seafood Allergy ANAPHYLAXIS Uncoded 05/07/17 10:01 - Medications Medications: Current Medications Atorvastatin Calcium (Lipitor) 40 mg PO DIN [facility] Last Admin: 05/08/17 21:56 Dose: 40 mg Hydralazine HCl (Apresoline) 25 mg PO TID [facility] Last Admin: 05/08/17 18:50 Dose: Not Given Nitroglycerin/Dextrose (Nitroglycerin 50 Mg/250 Ml D5w) 50 mg in 250 mls @ 1.5 mls/hr IV .Q24H PRN; Protocol; 5 MCG/MIN PRN Reason: Chest Pain Last Admin: 05/08/17 21:45 Dose: 1.5 mls/hr Heparin Sodium/Dextrose (Heparin 25,000 Units/250ml In D5w) 25,000 units in 250 mls @ 10.886 mls/hr IV .[id number] [facility]; 12 UNITS/KG/HR PRN Reason: Protocol Last Admin: 05/08/17 21:44 Dose: 12 units/kg/hr, 10.886 mls/hr Insulin Detemir (Levemir) 12 unit SC HS [facility] Last Admin: 05/08/17 21:55 Dose: 12 unit Insulin Human Regular (Humulin R Med) 0 units SC [facility] PRN Reason: Protocol Last Admin: 05/08/17 21:51 Dose: Not Given Isosorbide Mononitrate (Imdur) 60 mg PO DAILY [facility] Losartan Potassium (Cozaar) 100 mg PO DAILY [facility] Metoprolol Tartrate (Lopressor) 25 mg PO BID [facility] Last Admin: 05/08/17 18:52 Dose: Not Given Ondansetron HCl (Zofran Inj) 4 mg IVP Q4H PRN PRN Reason: Nausea/Vomiting Last Admin: 05/08/17 18:52 Dose: 4 mg Pantoprazole Sodium (Protonix Inj) 40 mg IVP DAILY [facility] Last Admin: 05/08/17 11:23 Dose: 40 mg Pregabalin (Lyrica) 75 mg PO BID [facility] Last Admin: 05/08/17 11:23 Dose: 75 mg Vitamin B Complex/Vit C/Folic Acid (Nephro-Eleni) 1 tab PO 0800 [facility] Physical Exam - Constitutional Appears: Non-toxic, No Acute Distress, Chronically Ill - Head Exam Head Exam: ATRAUMATIC, NORMOCEPHALIC - Eye Exam Eye Exam: EOMI, Normal appearance, PERRL - ENT Exam ENT Exam: Mucous Membranes Moist - Neck Exam Neck exam: Negative for: Meningismus - Respiratory Exam Respiratory Exam: Clear to Auscultation Bilateral. absent: Rales, Rhonchi, Wheezes - Cardiovascular Exam Cardiovascular Exam: Tachycardia, RRR, +S1, +S2 - GI/Abdominal Exam GI & Abdominal Exam: Normal Bowel Sounds, Soft. absent: Tenderness - Extremities Exam Extremities exam: Negative for: calf tenderness, pedal edema Additional comments: B/L LE ulcerations on heels, skin is intact, nonblanchable erythema R foot midfoot amputation B/L pedal pulses nonpalpable, skin is warm, capillary refill 3-4 seconds b/l - Neurological Exam Neurological exam: Alert Additional comments: GCS 14-15 Oriented x3 but occasionally requires reoorientation - Psychiatric Exam Psychiatric exam: Flat Affect, Normal Mood - Skin Skin Exam: Dry, Intact Additional comments: Except as noted in extremities exam Results - Vital Signs Recent Vital Signs: Last Vital Signs Temp 99.4 F 05/08/17 20:00 Pulse 113 H 05/08/17 20:00 Resp 18 05/08/17 18:00 BP 140/83 05/08/17 20:00 Pulse Ox 96 05/08/17 18:00 - Labs Result Diagrams: 05/08/17 19:30 05/08/17 19:30 Labs: Laboratory Results - last 24 hr 05/08/17 05/08/17 05/08/17 06:30 06:30 07:16 WBC 6.6 RBC 3.97 Hgb 10.8 L Hct 34.6 L MCV 87.2 MCH 27.2 MCHC 31.2 RDW 16.9 H Plt Count 286 MPV 10.6 Gran % 52.9 Lymph % (Auto) 30.7 Wilson % (Auto) 11.9 H Eos % (Auto) 3.9 Baso % (Auto) 0.6 Gran # 3.51 Lymph # 2.0 Wilson # 0.8 H Eos # 0.3 Baso # 0.04 PT INR APTT pO2 VBG pH VBG pCO2 VBG HCO3 VBG Total CO2 VBG O2 Sat (Calc) VBG Base Excess VBG Potassium Glucose Lactate FiO2 Sodium 139 Potassium 4.1 Chloride 98 Carbon Dioxide 30 Anion Gap 15 BUN 24 H Creatinine 6.1 H Est GFR ( Amer) 12 Est GFR (Non-Af Amer) 10 POC Glucose (mg/dL) 130 H Random Glucose 122 H Calcium 8.8 Phosphorus Magnesium Total Bilirubin AST ALT Alkaline Phosphatase Troponin I Total Protein Albumin Globulin Albumin/Globulin Ratio Venous Blood Potassium 05/08/17 05/08/17 05/08/17 11:10 18:48 19:26 WBC RBC Hgb Hct MCV MCH MCHC RDW Plt Count MPV Gran % Lymph % (Auto) Wilson % (Auto) Eos % (Auto) Baso % (Auto) Gran # Lymph # Wilson # Eos # Baso # PT INR APTT pO2 VBG pH VBG pCO2 VBG HCO3 VBG Total CO2 VBG O2 Sat (Calc) VBG Base Excess VBG Potassium Glucose Lactate FiO2 Sodium Potassium Chloride Carbon Dioxide Anion Gap BUN Creatinine Est GFR ( Amer) Est GFR (Non-Af Amer) POC Glucose (mg/dL) 120 H 130 H 117 H Random Glucose Calcium Phosphorus Magnesium Total Bilirubin AST ALT Alkaline Phosphatase Troponin I Total Protein Albumin Globulin Albumin/Globulin Ratio Venous Blood Potassium 05/08/17 05/08/17 05/08/17 19:30 19:30 19:30 WBC 3.4 L D RBC 4.41 Hgb 12.3 L Hct 38.2 L MCV 86.6 MCH 27.9 MCHC 32.2 RDW 16.6 H Plt Count 223 MPV 10.4 Gran % Lymph % (Auto) Wilson % (Auto) Eos % (Auto) Baso % (Auto) Gran # Lymph # Wilson # Eos # Baso # PT INR APTT pO2 45 VBG pH 7.52 H VBG pCO2 34.0 L VBG HCO3 27.8 VBG Total CO2 28.8 H VBG O2 Sat (Calc) 88.6 H VBG Base Excess 5.1 H VBG Potassium 3.3 L Glucose 140 H Lactate 1.4 FiO2 21.0 Sodium 134 134.0 Potassium 3.2 L Chloride 94 L 95.0 L Carbon Dioxide 27 Anion Gap 16 BUN 13 Creatinine 3.9 H Est GFR ( Amer) 19 Est GFR (Non-Af Amer) 16 POC Glucose (mg/dL) Random Glucose 136 H Calcium 8.8 Phosphorus 2.2 L Magnesium 1.5 L Total Bilirubin 1.2 AST 21 ALT 30 Alkaline Phosphatase 116 Troponin I 0.03 D Total Protein 7.1 Albumin 3.9 Globulin 3.2 Albumin/Globulin Ratio 1.2 Venous Blood Potassium 3.3 L 05/08/17 05/08/17 19:30 21:45 WBC RBC Hgb Hct MCV MCH MCHC RDW Plt Count MPV Gran % Lymph % (Auto) Wilson % (Auto) Eos % (Auto) Baso % (Auto) Gran # Lymph # Wilson # Eos # Baso # PT 12.0 H INR 1.11 H APTT 29.8 pO2 VBG pH VBG pCO2 VBG HCO3 VBG Total CO2 VBG O2 Sat (Calc) VBG Base Excess VBG Potassium Glucose Lactate FiO2 Sodium Potassium Chloride Carbon Dioxide Anion Gap BUN Creatinine Est GFR ( Amer) Est GFR (Non-Af Amer) POC Glucose (mg/dL) 172 H Random Glucose Calcium Phosphorus Magnesium Total Bilirubin AST ALT Alkaline Phosphatase Troponin I Total Protein Albumin Globulin Albumin/Globulin Ratio Venous Blood Potassium Assessment & Plan - Assessment and Plan (Free Text) Assessment: 56 yo M with PMH ESRD on HD, CAD with MIx3 s/p CABG and stents, HTN, DM, and history of CVA presents to ICU after episode of AMS 2/2 ACS likely NSTEMI vs STEMI vs demand ischemia in setting of hypoperfusion s/p dialysis Plan: Neuro - Patient presented to ICU with AMS, likely 2/2 ACS, NSTEMI vs STEMI vs demand ischemia in setting of hypoperfusion s/p dialysis - Mental status now improved, patient no longer confused, answering questions appropriately, recalls events after dialysis - Head CT significant for chronic lacunar infarct, but no acute intracranial abnormality - On Lyrica for peripheral neuropathy - Neuro checks Q2 Cardio - Initial EKG complete at approximately [address] elevations in leads III and V2, and ST depressions in leads I and aVL, though pending official read. Initial troponin was 0.03, which is less than his baseline. ST-T wave changes were present in prior EKGs, but appeared slightly increased in magnitude. Cardiology was contacted who recommended starting nitroglycerin drip, and head CT to r/o CVA. - Nitroglycerin drip started; home Imdur held - Head CT negative for acute ischemia or hemorrhage; heparin drip started after bolus - Daily PTT - First troponin 0.03, continue to trend - Cardio Marilee) consulted, appreciate recs - H/o CAD, HTN; on lipitor 40mg QD, metoprolol 25mg BID, losartan 100mg QD, hydralazine 25mg TID - VSS, continue to monitor Pulm - Lungs CTA, patient saturating well on O2 NC - CXR shows no active disease, but pending official read - Maintain O2 sat >90% - Keep HOB >30 degrees GI - Patient initially presented [place] [facility] [place] and [place]emesis, had upper endoscopy which showed superficial esophageal ulcers with no active bleeding, and chronic gastritis - Currently patient denies N/V; H/H stable, not actively bleeding - GI (Gabriel) on consult, all recs appreciated - Zofran for nausea - Protonix for Ppx Endo - h/o DM, on insulin at home - Levimir 12u HS - SSI Med with accucheck ACHS - Maintain euglycemia Renal - h/o ESRD on HD, had HD session today, did not tolerate all four rounds; 2L fluid taken off - Strict I&O - Monitor and replete lytes as needed - Maintain euvolemia - Nephro (Tami) on consult, all recs appreciated ID - Afebrile, no leukocytosis - Maintain euthermia Hem/Onc - H/H stable, no apparent active bleeding - Continue to monitor GI/DVT Ppx Patient seen, discussed, and reviewed with attending <Ziggy Fernandez - Last Filed: 05/09/17 05:32> Meds - Medications Medications: Current Medications Atorvastatin Calcium (Lipitor) 40 mg PO DIN [facility] Last Admin: 05/08/17 21:56 Dose: 40 mg Hydralazine HCl (Apresoline) 25 mg PO TID [facility] Last Admin: 05/08/17 18:50 Dose: Not Given Nitroglycerin/Dextrose (Nitroglycerin 50 Mg/250 Ml D5w) 50 mg in 250 mls @ 1.5 mls/hr IV .Q24H PRN; Protocol; 5 MCG/MIN PRN Reason: Chest Pain Last Admin: 05/08/17 21:45 Dose: 1.5 mls/hr Insulin Detemir (Levemir) 12 unit SC HS [facility] Last Admin: 05/08/17 21:55 Dose: 12 unit Insulin Human Regular (Humulin R Med) 0 units SC [facility] PRN Reason: Protocol Last Admin: 05/08/17 21:51 Dose: Not Given Isosorbide Mononitrate (Imdur) 60 mg PO DAILY [facility] Losartan Potassium (Cozaar) 100 mg PO DAILY [facility] Metoprolol Tartrate (Lopressor) 25 mg PO BID [facility] Last Admin: 05/08/17 18:52 Dose: Not Given Ondansetron HCl (Zofran Inj) 4 mg IVP Q4H PRN PRN Reason: Nausea/Vomiting Last Admin: 05/08/17 18:52 Dose: 4 mg Pantoprazole Sodium (Protonix Inj) 40 mg IVP DAILY [facility] Last Admin: 05/08/17 11:23 Dose: 40 mg Pregabalin (Lyrica) 75 mg PO BID [facility] Last Admin: 05/08/17 11:23 Dose: 75 mg Vitamin B Complex/Vit C/Folic Acid (Nephro-Eleni) 1 tab PO 0800 [facility] Results - Vital Signs Recent Vital Signs: Last Vital Signs Temp 98.3 F 05/09/17 02:00 Pulse 88 05/09/17 04:28 Resp 20 05/09/17 04:28 BP 140/84 05/09/17 04:00 Pulse Ox 98 05/09/17 04:10 - Labs Result Diagrams: 05/09/17 04:20 05/08/17 19:30 Labs: Laboratory Results - last 24 hr 05/08/17 05/08/17 05/08/17 06:30 06:30 07:16 WBC 6.6 RBC 3.97 Hgb 10.8 L Hct 34.6 L MCV 87.2 MCH 27.2 MCHC 31.2 RDW 16.9 H Plt Count 286 MPV 10.6 Gran % 52.9 Lymph % (Auto) 30.7 Wilson % (Auto) 11.9 H Eos % (Auto) 3.9 Baso % (Auto) 0.6 Gran # 3.51 Lymph # 2.0 Wilson # 0.8 H Eos # 0.3 Baso # 0.04 PT INR APTT pO2 VBG pH VBG pCO2 VBG HCO3 VBG Total CO2 VBG O2 Sat (Calc) VBG Base Excess VBG Potassium Glucose Lactate FiO2 Sodium 139 Potassium 4.1 Chloride 98 Carbon Dioxide 30 Anion Gap 15 BUN 24 H Creatinine 6.1 H Est GFR ( Amer) 12 Est GFR (Non-Af Amer) 10 POC Glucose (mg/dL) 130 H Random Glucose 122 H Calcium 8.8 Phosphorus Magnesium Total Bilirubin AST ALT Alkaline Phosphatase Troponin I Total Protein Albumin Globulin Albumin/Globulin Ratio Venous Blood Potassium 05/08/17 05/08/17 05/08/17 11:10 18:48 19:26 WBC RBC Hgb Hct MCV MCH MCHC RDW Plt Count MPV Gran % Lymph % (Auto) Wilson % (Auto) Eos % (Auto) Baso % (Auto) Gran # Lymph # Wilson # Eos # Baso # PT INR APTT pO2 VBG pH VBG pCO2 VBG HCO3 VBG Total CO2 VBG O2 Sat (Calc) VBG Base Excess VBG Potassium Glucose Lactate FiO2 Sodium Potassium Chloride Carbon Dioxide Anion Gap BUN Creatinine Est GFR ( Amer) Est GFR (Non-Af Amer) POC Glucose (mg/dL) 120 H 130 H 117 H Random Glucose Calcium Phosphorus Magnesium Total Bilirubin AST ALT Alkaline Phosphatase Troponin I Total Protein Albumin Globulin Albumin/Globulin Ratio Venous Blood Potassium 05/08/17 05/08/17 05/08/17 19:30 19:30 19:30 WBC 3.4 L D RBC 4.41 Hgb 12.3 L Hct 38.2 L MCV 86.6 MCH 27.9 MCHC 32.2 RDW 16.6 H Plt Count 223 MPV 10.4 Gran % Lymph % (Auto) Wilson % (Auto) Eos % (Auto) Baso % (Auto) Gran # Lymph # Wilson # Eos # Baso # PT INR APTT pO2 45 VBG pH 7.52 H VBG pCO2 34.0 L VBG HCO3 27.8 VBG Total CO2 28.8 H VBG O2 Sat (Calc) 88.6 H VBG Base Excess 5.1 H VBG Potassium 3.3 L Glucose 140 H Lactate 1.4 FiO2 21.0 Sodium 134 134.0 Potassium 3.2 L Chloride 94 L 95.0 L Carbon Dioxide 27 Anion Gap 16 BUN 13 Creatinine 3.9 H Est GFR ( Amer) 19 Est GFR (Non-Af Amer) 16 POC Glucose (mg/dL) Random Glucose 136 H Calcium 8.8 Phosphorus 2.2 L Magnesium 1.5 L Total Bilirubin 1.2 AST 21 ALT 30 Alkaline Phosphatase 116 Troponin I 0.03 D Total Protein 7.1 Albumin 3.9 Globulin 3.2 Albumin/Globulin Ratio 1.2 Venous Blood Potassium 3.3 L 05/08/17 05/08/17 05/09/17 19:30 21:45 00:00 WBC RBC Hgb Hct MCV MCH MCHC RDW Plt Count MPV Gran % Lymph % (Auto) Wilson % (Auto) Eos % (Auto) Baso % (Auto) Gran # Lymph # Wilson # Eos # Baso # PT 12.0 H INR 1.11 H APTT 29.8 pO2 VBG pH VBG pCO2 VBG HCO3 VBG Total CO2 VBG O2 Sat (Calc) VBG Base Excess VBG Potassium Glucose Lactate FiO2 Sodium Potassium Chloride Carbon Dioxide Anion Gap BUN Creatinine Est GFR ( Amer) Est GFR (Non-Af Amer) POC Glucose (mg/dL) 172 H Random Glucose Calcium Phosphorus Magnesium Total Bilirubin AST ALT Alkaline Phosphatase Troponin I 0.06 D Total Protein Albumin Globulin Albumin/Globulin Ratio Venous Blood Potassium 05/09/17 05/09/17 05/09/17 04:20 04:20 04:20 WBC 10.1 D RBC 4.39 Hgb 12.4 L Hct 38.1 L MCV 86.8 MCH 28.2 MCHC 32.5 RDW 16.8 H Plt Count 267 MPV 10.4 Gran % 81.7 H Lymph % (Auto) 8.0 L Wilson % (Auto) 9.9 H Eos % (Auto) 0.2 L Baso % (Auto) 0.2 Gran # 8.23 H Lymph # 0.8 L Wilson # 1.0 H Eos # 0.0 Baso # 0.02 PT INR APTT 56.9 H pO2 VBG pH VBG pCO2 VBG HCO3 VBG Total CO2 VBG O2 Sat (Calc) VBG Base Excess VBG Potassium Glucose Lactate FiO2 Sodium Potassium Chloride Carbon Dioxide Anion Gap BUN Creatinine Est GFR ( Amer) Est GFR (Non-Af Amer) POC Glucose (mg/dL) Random Glucose Calcium Phosphorus Magnesium Total Bilirubin AST ALT Alkaline Phosphatase Troponin I 0.06 Total Protein Albumin Globulin Albumin/Globulin Ratio Venous Blood Potassium Attending/Attestation - Attestation I have personally seen and examined this patient.: Yes I have fully participated in the care of the patient.: Yes I have reviewed all pertinent clinical information: Yes Notes (Text): 05/09/17 05:25 I agree with the above mentioned note and exam by the resident with the addition /exception of the followin56 y/o male with ESRD on HD, DM2, Htn, CAD with a history of PCI and subsequent CABG x3 vessels was transferred to the ICU last night after a code HEART was called on him. The patient had underwent a session of HD where he stated he was becoming increasingly fatigued. The patient then does not remember exactly what happened, but denies losing consciousness. He was reported to be diaphoretic, pale and short of breath complaining of chest pain. He was evaluated by the medical reviewer and an EKG was performed showing ST Elevations prompting a code heart to be activated. EKG was reviewed by the relationship management lead scrub woman (Dr. Fisher) who cancelled the code heart and requested the patient undergo a head CT, be placed on a tridil drip and kept in the ICU for closer monitoring. Patient's head CT was negative for any acute bleed or changes (he never had any focal deficits, he was reported to be confused). He was also placed on a IV Heparin drip initially given the concerning EKG findings and complaints of chest pain, however he has had 3 negative sets of cardiac markers, so the heparin drip has now been stopped. He was initially admitted with the complaint of hematemesis however an EGD yesterday showed ulcerations without bleeding. The patient has been without any chest pain overnight and has had relatively normal hemodynamics as well. all labs and images available to me during this admission have been reviewed case discussed with Dr. Lamont Muir (House doctor) total time of care: 45 minutes
[2017-05-09 05:08] LABS: BASO # 0.02 K/mm3 (0.0-2.0); BASO % 0.2 % (0.0-3.0); EOS % 0.2 % (1.5-5.0); GRAN # 8.23 (1.4-6.5); GRAN % 81.7 % (50.0-68.0); HEMATOCRIT 38.1 % (42.0-52.0); LYMPH # 0.8 (1.2-3.4); MEAN CELL VOLUME 86.8 fl (80.0-105.0); MEAN CORPUSCULAR HEMOGLOBIN 28.2 pg (25.0-35.0); MEAN CORPUSCULAR HGB CONC 32.5 g/dl (31.0-37.0); MEAN PLATELET VOLUME 10.4 fl (7.0-11.0); MONO % 9.9 % (1.0-6.0); RED CELL DISTRIBUTION WIDTH 16.8 % (11.5-14.5); WHITE BLOOD COUNT 10.1 10^3/ul (4.5-11.0)
[2017-05-09 05:16] LABS: TROPONIN I 0.06 ng/mL
[2017-05-09 05:27] LABS: CALCIUM 8.6 mg/dL (8.4-10.5); POTASSIUM 4.8 mmol/L (3.6-5.0)
[2017-05-09] MEDS: Insulin Reg-MEDIUM-Coverage SC SCH ×4 (07:57→21:37)
[2017-05-09] MEDS: Multivitamin Vitamin B Complex (Nephro-Vite) Tab PO SCH (08:07)
--- NOTE | 2017-05-09 08:09 | CP.PCM.PN ---
<CorazonAlana jarvis - Last Filed: 05/09/17 14:55> Subjective - Date & Time of Evaluation Date of Evaluation: 05/09/17 Time of Evaluation: 07:05 - Subjective Subjective: Progress note for Hospitalist service- Dr Moore. Patient initially presented with hematemesis, underwent egd, revealing gastroparesis and clean based ulcer. Patient was suppose to be discharged with ppi after HD, however developed confusion, shortness of breath post dialysis. Patient had EKG with no specific ST wave elevation and depressions. Troponin was indeterminate x2. Patient was initially started on heparin drip but was discontinued based on cider maker recommendations. Patient was transferred to icu for further monitoring and started on nitro drip. Patient also had CT head with no acute changes. This AM, patient is a&ox3, states he was not confused yesterday, he was just feeling weak, and nauseous. Patient states he is feeling better today. Denies n/ v/d, denies chest pain or sob. Patient asking for food. afebrile. Objective - Vital Signs/Intake and Output Vital Signs (last 24 hours): Temp Pulse Resp BP Pulse Ox 98.3 F 89 41 H 140/76 95 05/09/17 02:00 05/09/17 06:10 05/09/17 06:10 05/09/17 06:02 05/09/17 06:10 Intake and Output: 05/09/17 05/09/17 06:59 18:59 Intake Total 418 Output Total 250 Balance 168 - Medications Medications: Current Medications Atorvastatin Calcium (Lipitor) 40 mg PO DIN [facility] Last Admin: 05/08/17 21:56 Dose: 40 mg Hydralazine HCl (Apresoline) 25 mg PO TID [facility] Last Admin: 05/08/17 18:50 Dose: Not Given Insulin Detemir (Levemir) 12 unit SC HS [facility] Last Admin: 05/08/17 21:55 Dose: 12 unit Insulin Human Regular (Humulin R Med) 0 units SC ACHS [facility] PRN Reason: Protocol Last Admin: 05/09/17 07:57 Dose: Not Given Isosorbide Mononitrate (Imdur) 60 mg PO DAILY [facility] Losartan Potassium (Cozaar) 100 mg PO DAILY [facility] Metoprolol Tartrate (Lopressor) 25 mg PO BID [facility] Last Admin: 05/08/17 18:52 Dose: Not Given Ondansetron HCl (Zofran Inj) 4 mg IVP Q4H PRN PRN Reason: Nausea/Vomiting Last Admin: 05/08/17 18:52 Dose: 4 mg Pantoprazole Sodium (Protonix Inj) 40 mg IVP DAILY [facility] Last Admin: 05/08/17 11:23 Dose: 40 mg Pregabalin (Lyrica) 75 mg PO BID [facility] Last Admin: 05/08/17 11:23 Dose: 75 mg Vitamin B Complex/Vit C/Folic Acid (Nephro-Eleni) 1 tab PO 0800 [facility] Last Admin: 05/09/17 08:07 Dose: 1 tab - Labs Labs: 05/09/17 04:20 05/09/17 04:20 PT 12.0 Seconds (9.9-11.8) H 05/08/17 19:30 INR 1.11 (0.93-1.08) H 05/08/17 19:30 APTT 56.9 Seconds (23.7-30.8) H 05/09/17 04:20 - Constitutional Appears: No Acute Distress, Chronically Ill - Head Exam Head Exam: ATRAUMATIC, NORMAL INSPECTION, NORMOCEPHALIC - Eye Exam Eye Exam: EOMI, Normal appearance, PERRL. absent: Scleral icterus Pupil Exam: NORMAL ACCOMODATION, PERRL - ENT Exam ENT Exam: Mucous Membranes Moist, Normal Exam - Neck Exam Neck Exam: Full ROM, Normal Inspection - Respiratory Exam Respiratory Exam: Clear to Ausculation Bilateral, NORMAL BREATHING PATTERN. absent: Rales, Rhonchi, Wheezes, Respiratory Distress, Stridor - Cardiovascular Exam Cardiovascular Exam: REGULAR RHYTHM, RRR, +S1, +S2, Murmur (Systolic). absent: Gallop, JVD, Rubs - GI/Abdominal Exam GI & Abdominal Exam: Soft, Normal Bowel Sounds. absent: Distended, Firm, Guarding, Rigid, Tenderness - Extremities Exam Extremities Exam: Normal Inspection. absent: Pedal Edema, Tenderness - Back Exam Back Exam: NORMAL INSPECTION - Neurological Exam Neurological Exam: Alert, Awake, Oriented x3 Additional comments: Patient is moving his extremities grossly, no focal neurologic deficit. - Psychiatric Exam Psychiatric exam: Normal Affect, Normal Mood - Skin Skin Exam: Abrasion, Intact, Normal Color, Warm Assessment and Plan - Assessment and Plan (Free Text) Assessment: Patient is a 56 y/o with PMh of ESRD on HD, CAD, HTN, PA x 3, DM, peripheral neuropathy, history of falls, history of CVA initially presented with hematemesis s/p egd currently in ICU send to transient AMS. Patient also had ischemic changes on EKG, and is scheduled for cardiac cath. Plan: 1)Transient AMS - resolved, likely uremic, versus ACS, less likely cva - CT head with no acute finding, no focal deficit - Will hold off MRI for now, and consider it if AMS worsens or reoccurs. 2) Indeterminate troponin - With non specific ST/T wave changes - patient is scheduled for cardiac cath today. - Will continue nitro, asa, Lipitor, cozaar and Lopressor - will follow up with cardiology for rec 3) Hematemesis- s/p egd - resolved - will continue with ppi 4) ESRD- - S/p HD yesterday - nephro following - Renal diet. 5) HTN- stable - will continue with hydralazine, cozaar 6) Peripheral neuropathy- c/w lyrica 7) IDDM2- - will continue levemir, ISS, and fingerstick achs. 8) Mild hyponatremia- will observe for now. 9) Hypokalemia- resolved, will continue to monitor. 10) DVT prophylaxis- s/p heparin drip, now SCDs untill post cardiac cath. 11) GI prophylaxis: protonix. Patient seen, examined, and discussed with Dr Moore. <Teresa ZEPEDA,[facility] - Last Filed: 05/09/17 17:57> Objective - Vital Signs/Intake and Output Vital Signs (last 24 hours): Temp Pulse Resp BP Pulse Ox 98.0 F 79 41 H 143/68 95 05/09/17 16:30 05/09/17 13:30 05/09/17 06:10 05/09/17 13:30 05/09/17 06:10 Intake and Output: 05/09/17 05/09/17 06:59 18:59 Intake Total 418 Output Total 250 Balance 168 - Medications Medications: Current Medications Atorvastatin Calcium (Lipitor) 40 mg PO DIN [facility] Last Admin: 05/08/17 21:56 Dose: 40 mg Hydralazine HCl (Apresoline) 25 mg PO TID [facility] Last Admin: 05/09/17 15:52 Dose: 25 mg Insulin Detemir (Levemir) 12 unit SC HS [facility] Last Admin: 05/08/17 21:55 Dose: 12 unit Insulin Human Regular (Humulin R Med) 0 units SC ACHS [facility] PRN Reason: Protocol Last Admin: 05/09/17 16:10 Dose: Not Given Isosorbide Mononitrate (Imdur) 60 mg PO DAILY [facility] Losartan Potassium (Cozaar) 100 mg PO DAILY [facility] Last Admin: 05/09/17 09:50 Dose: 100 mg Metoprolol Tartrate (Lopressor) 25 mg PO BID [facility] Last Admin: 05/09/17 09:42 Dose: 25 mg Ondansetron HCl (Zofran Inj) 4 mg IVP Q4H PRN PRN Reason: Nausea/Vomiting Last Admin: 05/08/17 18:52 Dose: 4 mg Pantoprazole Sodium (Protonix Inj) 40 mg IVP DAILY [facility] Last Admin: 05/09/17 09:41 Dose: 40 mg Pregabalin (Lyrica) 75 mg PO BID [facility] Last Admin: 05/09/17 09:42 Dose: 75 mg Vitamin B Complex/Vit C/Folic Acid (Nephro-Eleni) 1 tab PO 0800 [facility] Last Admin: 05/09/17 08:07 Dose: 1 tab - Labs Labs: 05/09/17 04:20 05/09/17 04:20 PT 12.0 Seconds (9.9-11.8) H 05/08/17 19:30 INR 1.11 (0.93-1.08) H 05/08/17 19:30 APTT 56.9 Seconds (23.7-30.8) H 05/09/17 04:20 Attending/Attestation - Attestation I have personally seen and examined this patient.: Yes I have fully participated in the care of the patient.: Yes I have reviewed all pertinent clinical information, including history, physical exam and plan: Yes Notes (Text): 05/09/17 17:55 Patient was seen and examined with biomedical equipment tech. 56 year old male with pmd of CAD/CABG, ESRD, DM, HTN presents with N/V/ hematemesis?. EGD showed esophageal ulcer and gastropresis, (05/08/17), became diaphoretic and dyspneic during dialysis yesterday evening , was transferred to ICU , underwent cardiac catherization today that revealed 3 vesseal CAD with chronically occluded RCA, no intervention was done, medical therapy is recommended. Management plan was discussed in detail with patient Education was provided.
--- NOTE | 2017-05-09 09:03 | RAD ---
HISTORY: AMS COMPARISON: 05/07/2017 FINDINGS: LUNGS: No active pulmonary disease. PLEURA: No significant pleural effusion identified, no pneumothorax apparent. CARDIOVASCULAR: Mild cardiomegaly OSSEOUS STRUCTURES: Sternal wires. Dialysis catheter VISUALIZED UPPER ABDOMEN: Normal. OTHER FINDINGS: None. IMPRESSION: No active disease.
[2017-05-09] MEDS ORDERED: Lidocaine 2% Inj (20ml) ONE (10:34)
[2017-05-09] MEDS ORDERED: Iodixanol 320 mg/ml 150 ml Bottle IV ONE (10:35)
[2017-05-09] MEDS ORDERED: Famotidine 20mg/50ml 20 MG/50 ML BAG IVPB ONE (11:07)
[2017-05-09] MEDS ORDERED: DiphenhydrAMINE 50 mg/ml Inj ONE (11:07)
[2017-05-09] MEDS ORDERED: Iohexol 350mgl/ml 50 ML ONE (11:09)
[2017-05-09] MEDS ORDERED: Phenylephrine 10 mg/ml Inj ONE (11:09)
[2017-05-09] MEDS ORDERED: Midazolam 2 MG/2 ML VIAL ONE (11:45)
--- NOTE | 2017-05-09 11:47 | CP.CCUPN ---
<Karo Caba - Last Filed: 05/09/17 11:57> CCU Subjective - Physician Review Events Since Last Encounter (Free Text): 05/09/17 11:46 transferred to unit 2/2 EKG findings suspicious for STEMI- placed on heparin and nitro drips - cardio consulted Subjective (Free Text): 05/09/17 11:46 Critical care progress note for Dr. Zaid Caba, PGY-1 Pt S & E at bedside. Pt reports some continued chest discomfort/pain, some abdominal discomfort. Denies N/V/F/C, SOB, palpitations, other complaints. Critical Care Time Spent (in minutes): 35 CCU Objective - Vital Signs / Intake & Output Vital Signs (Last 4 hours): Vital Signs Pulse BP 05/09/17 09:43 94 H 129/66 05/09/17 09:42 94 H 129/66 Intake and Output (Last 8hrs): Intake & Output 05/08/17 05/09/17 05/09/17 22:59 06:59 14:59 Intake Total 418 Output Total 250 Balance 168 Weight 84.822 kg 85 kg Intake: IV 318 Forearm 18 Left Hand 300 Oral 100 Output: Urine 250 Urine, Voided 250 Other: Voiding Method Indwelling Catheter # Bowel Movements 0 - Physical Exam Head: Positive for: Atraumatic, Normocephalic Pupils: Positive for: PERRL Extroacular Muscles: Positive for: EOMI Conjunctiva: Positive for: Normal Mouth: Positive for: Moist Mucous Membranes Pharnyx: Positive for: Normal Nose (External): Positive for: Atraumatic Neck: Positive for: Normal Range of Motion Respiratory/Chest: Positive for: Clear to Auscultation, Good Air Exchange, Other (Right Chest Jaylyn, no erythema ). Negative for: Respiratory Distress, Accessory Muscle Use Cardiovascular: Positive for: Regular Rate and Rhythm, Normal S1, S2, Other ( well healed midline chest vertical surgical incision site ). Negative for: Murmurs Abdomen: Positive for: Tenderness (mild ), Normal Bowel Sounds, Other ([place], Urine yellow and clear). Negative for: Distention, Peritoneal Signs, Rebound Back: Positive for: Normal Inspection. Negative for: CVA Tenderness Upper Extremity: Positive for: Normal Inspection. Negative for: Cyanosis, Edema Lower Extremity: Positive for: Normal Inspection. Negative for: Edema Neurological: Positive for: GCS=15, CN II-XII Intact, Speech Normal Skin: Positive for: Warm, Dry, Normal Color. Negative for: Rashes Psychiatric: Positive for: Alert, Oriented x 3, Normal Insight, Normal Concentration - Medications Active Medications: Active Medications Generic Name Dose Route Start Last Admin Trade Name Freq PRN Reason Stop Dose Admin Atorvastatin Calcium 40 mg 05/07/17 17:00 05/08/17 21:56 Lipitor PO 40 mg DIN MARYANN Administration Hydralazine HCl 25 mg 05/08/17 14:00 05/09/17 09:43 Apresoline PO 25 mg TID MARYANN Administration Insulin Detemir 12 unit 05/07/17 22:00 05/08/17 21:55 Levemir SC 12 unit HS MARYANN Administration Insulin Human Regular 0 units 05/07/17 22:00 05/09/17 07:57 Humulin R Med SC Not Given ACHS [facility] Protocol Isosorbide Mononitrate 60 mg 05/08/17 10:00 Imdur PO DAILY MARYANN Losartan Potassium 100 mg 05/08/17 10:00 05/09/17 09:50 Cozaar PO 100 mg DAILY MARYANN Administration Metoprolol Tartrate 25 mg 05/08/17 10:00 05/09/17 09:42 Lopressor PO 25 mg BID MARYANN Administration Ondansetron HCl 4 mg 05/07/17 13:56 05/08/17 18:52 Zofran Inj IVP 4 mg Q4H PRN Administration Nausea/Vomiting Pantoprazole Sodium 40 mg 05/08/17 10:00 05/09/17 09:41 Protonix Inj IVP 40 mg DAILY MARYANN Administration Pregabalin 75 mg 05/07/17 18:00 05/09/17 09:42 Lyrica PO 75 mg BID MARYANN Administration Vitamin B Complex/Vit C/Folic Acid 1 tab 05/09/17 08:00 05/09/17 08:07 Nephro-Eleni PO 1 tab 0800 MARYANN Administration - Patient Studies Lab Studies: Lab Studies 05/09/17 05/09/17 05/09/17 Range/Units 07:54 04:20 04:20 WBC 10.1 D (4.5-11.0) 10^3/ul RBC 4.39 (3.5-6.1) 10^6/uL Hgb 12.4 L (14.0-18.0) g/dL Hct 38.1 L (42.0-52.0) % MCV 86.8 (80.0-105.0) fl MCH 28.2 (25.0-35.0) pg MCHC 32.5 (31.0-37.0) g/dl RDW 16.8 H (11.5-14.5) % Plt Count 267 (120.0-450.0) 10^3/uL MPV 10.4 (7.0-11.0) fl Gran % 81.7 H (50.0-68.0) % Lymph % (Auto) 8.0 L (22.0-35.0) % [place] % (Auto) 9.9 H (1.0-6.0) % Eos % (Auto) 0.2 L (1.5-5.0) % Baso % (Auto) 0.2 (0.0-3.0) % Gran # 8.23 H (1.4-6.5) Lymph # 0.8 L (1.2-3.4) [place] # 1.0 H (0.1-0.6) Eos # 0.0 (0.0-0.7) Baso # 0.02 (0.0-2.0) K/mm3 PT (9.9-11.8) Seconds INR (0.93-1.08) APTT 56.9 H (23.7-30.8) Seconds pO2 (30-55) mm/Hg VBG pH (7.32-7.43) VBG pCO2 (40-60) VBG HCO3 (21-28) mmol/l VBG Total CO2 (22-28) mmol.L VBG O2 Sat (Calc) (40-65) % VBG Base Excess (0.0-2.0) mmol/L VBG Potassium (3.6-5.2) mmol/L Sodium (132-148) mmol/L Chloride (98-107) mmol/L Glucose (75-110) mg/dl Lactate (0.7-2.1) mmol/L FiO2 % Potassium (3.6-5.0) mmol/L Carbon Dioxide (21-33) mmol/L Anion Gap (10-20) BUN (7-21) mg/dL Creatinine (0.5-1.4) mg/dL Est GFR ( Amer) Est GFR (Non-Af Amer) POC Glucose (mg/dL) 135 H (65-110) mg/dL Random Glucose (70-110) mg/dL Calcium (8.4-10.5) mg/dL Phosphorus (2.5-4.5) mg/dL Magnesium (1.7-2.2) mg/dL Total Bilirubin (0.2-1.3) mg/dL AST (17-59) U/L ALT (7-56) U/L Alkaline Phosphatase (38-126) U/L Troponin I ng/mL Total Protein (5.8-8.3) g/dL Albumin (3.0-4.8) g/dL Globulin gm/dL Albumin/Globulin Ratio (1.1-1.8) Venous Blood Potassium (3.6-5.2) mmol/L 05/09/17 05/09/17 05/08/17 Range/Units 04:20 00:00 21:45 WBC (4.5-11.0) 10^3/ul RBC (3.5-6.1) 10^6/uL Hgb (14.0-18.0) g/dL Hct (42.0-52.0) % MCV (80.0-105.0) fl MCH (25.0-35.0) pg MCHC (31.0-37.0) g/dl RDW (11.5-14.5) % Plt Count (120.0-450.0) 10^3/uL MPV (7.0-11.0) fl Gran % (50.0-68.0) % Lymph % (Auto) (22.0-35.0) % [place] % (Auto) (1.0-6.0) % Eos % (Auto) (1.5-5.0) % Baso % (Auto) (0.0-3.0) % Gran # (1.4-6.5) Lymph # (1.2-3.4) [place] # (0.1-0.6) Eos # (0.0-0.7) Baso # (0.0-2.0) K/mm3 PT (9.9-11.8) Seconds INR (0.93-1.08) APTT (23.7-30.8) Seconds pO2 (30-55) mm/Hg VBG pH (7.32-7.43) VBG pCO2 (40-60) VBG HCO3 (21-28) mmol/l VBG Total CO2 (22-28) mmol.L VBG O2 Sat (Calc) (40-65) % VBG Base Excess (0.0-2.0) mmol/L VBG Potassium (3.6-5.2) mmol/L Sodium 131 L (132-148) mmol/L Chloride 91 L (98-107) mmol/L Glucose (75-110) mg/dl Lactate (0.7-2.1) mmol/L FiO2 % Potassium 4.8 (3.6-5.0) mmol/L Carbon Dioxide 29 (21-33) mmol/L Anion Gap 16 (10-20) BUN 16 (7-21) mg/dL Creatinine 5.2 H (0.5-1.4) mg/dL Est GFR ( Amer) 14 Est GFR (Non-Af Amer) 12 POC Glucose (mg/dL) 172 H (65-110) mg/dL Random Glucose 155 H (70-110) mg/dL Calcium 8.6 (8.4-10.5) mg/dL Phosphorus (2.5-4.5) mg/dL Magnesium (1.7-2.2) mg/dL Total Bilirubin (0.2-1.3) mg/dL AST (17-59) U/L ALT (7-56) U/L Alkaline Phosphatase (38-126) U/L Troponin I 0.06 0.06 D ng/mL Total Protein (5.8-8.3) g/dL Albumin (3.0-4.8) g/dL Globulin gm/dL Albumin/Globulin Ratio (1.1-1.8) Venous Blood Potassium (3.6-5.2) mmol/L 05/08/17 05/08/17 05/08/17 Range/Units 19:30 19:30 19:30 WBC 3.4 L D (4.5-11.0) 10^3/ul RBC 4.41 (3.5-6.1) 10^6/uL Hgb 12.3 L (14.0-18.0) g/dL Hct 38.2 L (42.0-52.0) % MCV 86.6 (80.0-105.0) fl MCH 27.9 (25.0-35.0) pg MCHC 32.2 (31.0-37.0) g/dl RDW 16.6 H (11.5-14.5) % Plt Count 223 (120.0-450.0) 10^3/uL MPV 10.4 (7.0-11.0) fl Gran % (50.0-68.0) % Lymph % (Auto) (22.0-35.0) % [place] % (Auto) (1.0-6.0) % Eos % (Auto) (1.5-5.0) % Baso % (Auto) (0.0-3.0) % Gran # (1.4-6.5) Lymph # (1.2-3.4) [place] # (0.1-0.6) Eos # (0.0-0.7) Baso # (0.0-2.0) K/mm3 PT 12.0 H (9.9-11.8) Seconds INR 1.11 H (0.93-1.08) APTT 29.8 (23.7-30.8) Seconds pO2 45 (30-55) mm/Hg VBG pH 7.52 H (7.32-7.43) VBG pCO2 34.0 L (40-60) VBG HCO3 27.8 (21-28) mmol/l VBG Total CO2 28.8 H (22-28) mmol.L VBG O2 Sat (Calc) 88.6 H (40-65) % VBG Base Excess 5.1 H (0.0-2.0) mmol/L VBG Potassium 3.3 L (3.6-5.2) mmol/L Sodium 134.0 (132-148) mmol/L Chloride 95.0 L (98-107) mmol/L Glucose 140 H (75-110) mg/dl Lactate 1.4 (0.7-2.1) mmol/L FiO2 21.0 % Potassium (3.6-5.0) mmol/L Carbon Dioxide (21-33) mmol/L Anion Gap (10-20) BUN (7-21) mg/dL Creatinine (0.5-1.4) mg/dL Est GFR ( Amer) Est GFR (Non-Af Amer) POC Glucose (mg/dL) (65-110) mg/dL Random Glucose (70-110) mg/dL Calcium (8.4-10.5) mg/dL Phosphorus (2.5-4.5) mg/dL Magnesium (1.7-2.2) mg/dL Total Bilirubin (0.2-1.3) mg/dL AST (17-59) U/L ALT (7-56) U/L Alkaline Phosphatase (38-126) U/L Troponin I ng/mL Total Protein (5.8-8.3) g/dL Albumin (3.0-4.8) g/dL Globulin gm/dL Albumin/Globulin Ratio (1.1-1.8) Venous Blood Potassium 3.3 L (3.6-5.2) mmol/L 05/08/17 05/08/17 05/08/17 Range/Units 19:30 19:26 18:48 WBC (4.5-11.0) 10^3/ul RBC (3.5-6.1) 10^6/uL Hgb (14.0-18.0) g/dL Hct (42.0-52.0) % MCV (80.0-105.0) fl MCH (25.0-35.0) pg MCHC (31.0-37.0) g/dl RDW (11.5-14.5) % Plt Count (120.0-450.0) 10^3/uL MPV (7.0-11.0) fl Gran % (50.0-68.0) % Lymph % (Auto) (22.0-35.0) % [place] % (Auto) (1.0-6.0) % Eos % (Auto) (1.5-5.0) % Baso % (Auto) (0.0-3.0) % Gran # (1.4-6.5) Lymph # (1.2-3.4) [place] # (0.1-0.6) Eos # (0.0-0.7) Baso # (0.0-2.0) K/mm3 PT (9.9-11.8) Seconds INR (0.93-1.08) APTT (23.7-30.8) Seconds pO2 (30-55) mm/Hg VBG pH (7.32-7.43) VBG pCO2 (40-60) VBG HCO3 (21-28) mmol/l VBG Total CO2 (22-28) mmol.L VBG O2 Sat (Calc) (40-65) % VBG Base Excess (0.0-2.0) mmol/L VBG Potassium (3.6-5.2) mmol/L Sodium 134 (132-148) mmol/L Chloride 94 L (98-107) mmol/L Glucose (75-110) mg/dl Lactate (0.7-2.1) mmol/L FiO2 % Potassium 3.2 L (3.6-5.0) mmol/L Carbon Dioxide 27 (21-33) mmol/L Anion Gap 16 (10-20) BUN 13 (7-21) mg/dL Creatinine 3.9 H (0.5-1.4) mg/dL Est GFR ( Amer) 19 Est GFR (Non-Af Amer) 16 POC Glucose (mg/dL) 117 H 130 H (65-110) mg/dL Random Glucose 136 H (70-110) mg/dL Calcium 8.8 (8.4-10.5) mg/dL Phosphorus 2.2 L (2.5-4.5) mg/dL Magnesium 1.5 L (1.7-2.2) mg/dL Total Bilirubin 1.2 (0.2-1.3) mg/dL AST 21 (17-59) U/L ALT 30 (7-56) U/L Alkaline Phosphatase 116 (38-126) U/L Troponin I 0.03 D ng/mL Total Protein 7.1 (5.8-8.3) g/dL Albumin 3.9 (3.0-4.8) g/dL Globulin 3.2 gm/dL Albumin/Globulin Ratio 1.2 (1.1-1.8) Venous Blood Potassium (3.6-5.2) mmol/L Laboratory Results - last 24 hr 05/08/17 05/08/17 05/08/17 18:48 19:26 19:30 WBC RBC Hgb Hct MCV MCH MCHC RDW Plt Count MPV Gran % Lymph % (Auto) [place] % (Auto) Eos % (Auto) Baso % (Auto) Gran # Lymph # [place] # Eos # Baso # PT INR APTT pO2 VBG pH VBG pCO2 VBG HCO3 VBG Total CO2 VBG O2 Sat (Calc) VBG Base Excess VBG Potassium Sodium 134 Chloride 94 L Glucose Lactate FiO2 Potassium 3.2 L Carbon Dioxide 27 Anion Gap 16 BUN 13 Creatinine 3.9 H Est GFR ( Amer) 19 Est GFR (Non-Af Amer) 16 POC Glucose (mg/dL) 130 H 117 H Random Glucose 136 H Calcium 8.8 Phosphorus 2.2 L Magnesium 1.5 L Total Bilirubin 1.2 AST 21 ALT 30 Alkaline Phosphatase 116 Troponin I 0.03 D Total Protein 7.1 Albumin 3.9 Globulin 3.2 Albumin/Globulin Ratio 1.2 Venous Blood Potassium 05/08/17 05/08/17 05/08/17 19:30 19:30 19:30 WBC 3.4 L D RBC 4.41 Hgb 12.3 L Hct 38.2 L MCV 86.6 MCH 27.9 MCHC 32.2 RDW 16.6 H Plt Count 223 MPV 10.4 Gran % Lymph % (Auto) [place] % (Auto) Eos % (Auto) Baso % (Auto) Gran # Lymph # [place] # Eos # Baso # PT 12.0 H INR 1.11 H APTT 29.8 pO2 45 VBG pH 7.52 H VBG pCO2 34.0 L VBG HCO3 27.8 VBG Total CO2 28.8 H VBG O2 Sat (Calc) 88.6 H VBG Base Excess 5.1 H VBG Potassium 3.3 L Sodium 134.0 Chloride 95.0 L Glucose 140 H Lactate 1.4 FiO2 21.0 Potassium Carbon Dioxide Anion Gap BUN Creatinine Est GFR ( Amer) Est GFR (Non-Af Amer) POC Glucose (mg/dL) Random Glucose Calcium Phosphorus Magnesium Total Bilirubin AST ALT Alkaline Phosphatase Troponin I Total Protein Albumin Globulin Albumin/Globulin Ratio Venous Blood Potassium 3.3 L 05/08/17 05/09/17 05/09/17 21:45 00:00 04:20 WBC RBC Hgb Hct MCV MCH MCHC RDW Plt Count MPV Gran % Lymph % (Auto) [place] % (Auto) Eos % (Auto) Baso % (Auto) Gran # Lymph # [place] # Eos # Baso # PT INR APTT pO2 VBG pH VBG pCO2 VBG HCO3 VBG Total CO2 VBG O2 Sat (Calc) VBG Base Excess VBG Potassium Sodium 131 L Chloride 91 L Glucose Lactate FiO2 Potassium 4.8 Carbon Dioxide 29 Anion Gap 16 BUN 16 Creatinine 5.2 H Est GFR ( Amer) 14 Est GFR (Non-Af Amer) 12 POC Glucose (mg/dL) 172 H Random Glucose 155 H Calcium 8.6 Phosphorus Magnesium Total Bilirubin AST ALT Alkaline Phosphatase Troponin I 0.06 D 0.06 Total Protein Albumin Globulin Albumin/Globulin Ratio Venous Blood Potassium 05/09/17 05/09/17 05/09/17 04:20 04:20 07:54 WBC 10.1 D RBC 4.39 Hgb 12.4 L Hct 38.1 L MCV 86.8 MCH 28.2 MCHC 32.5 RDW 16.8 H Plt Count 267 MPV 10.4 Gran % 81.7 H Lymph % (Auto) 8.0 L [place] % (Auto) 9.9 H Eos % (Auto) 0.2 L Baso % (Auto) 0.2 Gran # 8.23 H Lymph # 0.8 L [place] # 1.0 H Eos # 0.0 Baso # 0.02 PT INR APTT 56.9 H pO2 VBG pH VBG pCO2 VBG HCO3 VBG Total CO2 VBG O2 Sat (Calc) VBG Base Excess VBG Potassium Sodium Chloride Glucose Lactate FiO2 Potassium Carbon Dioxide Anion Gap BUN Creatinine Est GFR ( Amer) Est GFR (Non-Af Amer) POC Glucose (mg/dL) 135 H Random Glucose Calcium Phosphorus Magnesium Total Bilirubin AST ALT Alkaline Phosphatase Troponin I Total Protein Albumin Globulin Albumin/Globulin Ratio Venous Blood Potassium EKG/Cardiology Studies: Cardiology / EKG Studies 05/08/17 18:56 EKG [ELECTROCARDIOGRAM] Stat Comment: Reason For Exam: Chest Pain, SOB, Tachycardia EKG [ELECTROCARDIOGRAM] Stat Comment: Reason For Exam: vomiting Fingerstick Blood Sugar Results: 172 Review of Systems - Review of Systems All systems: reviewed and no additional remarkable complaints except - Constitutional Constitutional: absent: Fever, Chills - EENT Eyes: UNREMARKABLE Ears: UNREMARKABLE Nose/Mouth/Throat: UNREMARKABLE - Cardiovascular Cardiovascular: Chest Pain, UNREMARKABLE. absent: Leg Edema Critical Care Progress Note - Extremities/Vascular Does the Patient have a [place] Catheter?: Yes Does the Patient need a [place] Catheter?: Yes Catheter Insertion Criteria: Patient has acute urinary retention or bladder outlet obstruction - Prophylaxis GI Prophylaxis GI: PPI - Prophylaxis DVT Prophylaxis DVT: SCDs - Nutrition Nutrition: Nutrition Category Date Time Status Liquid Diet [DIET] Diets 05/09/17 Breakfast Ordered Assessment/Plan - Assessment and Plan (Free Text) Assessment: 56M w/PMH sig for CA x3, s/p CABG & stents with CP, for cardiac cath today Plan: Neuro AOx3 Neuro checks Q2 Stable CVS Hx CA, HTN, HLD Normotensive BP WNL Trops neg x 4 Lipitor Hydralazine Cozaar Lopressor Holding Imdur D/c'd heparin drip D/c'd nitro drip Cards following-Cardiac cath today Pulm Stable on O2 Target SaO2>94% GI GI bleeding s/p EGD with non bleeding ulcers No bleeding overnight H/H stable Zofran Protonix CLD as per cardio GI following Macias in place 2/2 urinary retention Monitor UOP Heme PT 12 INR 1.11 PTT 56.9 Off heparin drip Monitor Nephro ESRD on HD (MWF) BUN 16 Cr 5.2 Hyponatremia Na 131 Vitamins Strict I/O's Nephro following ID Afebrile No leukocytosis Monitor Endo BS WNL DM ISS Levemir Accuchecks MSK Lyrica monitor for skin break down GI/DVT ppx SCDs Off heparin drip Dispo HD MWF Cardiac cath today Further mgmt dependent on findings DW attending Gertrudis, PGY-1 - Date & Time Date: 05/09/17 Time: 07:25 <Wood ZEPEDA,Inamugoldy H - Last Filed: 05/09/17 17:44> CCU Objective - Vital Signs / Intake & Output Vital Signs (Last 4 hours): Vital Signs Temp 05/09/17 16:30 98.0 F Intake and Output (Last 8hrs): Intake & Output 05/09/17 05/09/17 05/09/17 06:59 14:59 22:59 Intake Total 418 Output Total 250 Balance 168 Weight 187 lb 6.287 oz Intake: IV 318 Forearm 18 Left Hand 300 Oral 100 Output: Urine 250 Urine, Voided 250 Other: # Bowel Movements 0 - Medications Active Medications: Active Medications Generic Name Dose Route Start Last Admin Trade Name Freq PRN Reason Stop Dose Admin Atorvastatin Calcium 40 mg 05/07/17 17:00 05/08/17 21:56 Lipitor PO 40 mg DIN MARYANN Administration Hydralazine HCl 25 mg 05/08/17 14:00 05/09/17 15:52 Apresoline PO 25 mg TID MARYANN Administration Insulin Detemir 12 unit 05/07/17 22:00 05/08/17 21:55 Levemir SC 12 unit HS MARYANN Administration Insulin Human Regular 0 units 05/07/17 22:00 05/09/17 16:10 Humulin R Med SC Not Given ACHS [facility] Protocol Isosorbide Mononitrate 60 mg 05/08/17 10:00 Imdur PO DAILY [facility] Losartan Potassium 100 mg 05/08/17 10:00 05/09/17 09:50 Cozaar PO 100 mg DAILY [facility] Administration Metoprolol Tartrate 25 mg 05/08/17 10:00 05/09/17 09:42 Lopressor PO 25 mg BID MARYANN Administration Ondansetron HCl 4 mg 05/07/17 13:56 05/08/17 18:52 Zofran Inj IVP 4 mg Q4H PRN Administration Nausea/Vomiting Pantoprazole Sodium 40 mg 05/08/17 10:00 05/09/17 09:41 Protonix Inj IVP 40 mg DAILY MARYANN Administration Pregabalin 75 mg 05/07/17 18:00 05/09/17 09:42 Lyrica PO 75 mg BID [facility] Administration Vitamin B Complex/Vit C/Folic Acid 1 tab 05/09/17 08:00 05/09/17 08:07 Nephro-Eleni PO 1 tab 0800 [facility] Administration - Patient Studies Lab Studies: Lab Studies 05/09/17 05/09/17 05/09/17 Range/Units 07:54 04:20 04:20 WBC 10.1 D (4.5-11.0) 10^3/ul RBC 4.39 (3.5-6.1) 10^6/uL Hgb 12.4 L (14.0-18.0) g/dL Hct 38.1 L (42.0-52.0) % MCV 86.8 (80.0-105.0) fl MCH 28.2 (25.0-35.0) pg MCHC 32.5 (31.0-37.0) g/dl RDW 16.8 H (11.5-14.5) % Plt Count 267 (120.0-450.0) 10^3/uL MPV 10.4 (7.0-11.0) fl Gran % 81.7 H (50.0-68.0) % Lymph % (Auto) 8.0 L (22.0-35.0) % [place] % (Auto) 9.9 H (1.0-6.0) % Eos % (Auto) 0.2 L (1.5-5.0) % Baso % (Auto) 0.2 (0.0-3.0) % Gran # 8.23 H (1.4-6.5) Lymph # 0.8 L (1.2-3.4) [place] # 1.0 H (0.1-0.6) Eos # 0.0 (0.0-0.7) Baso # 0.02 (0.0-2.0) K/mm3 APTT 56.9 H (23.7-30.8) Seconds Sodium (132-148) mmol/L Potassium (3.6-5.0) mmol/L Chloride (95-110) mmol/L Carbon Dioxide (21-33) mmol/L Anion Gap (10-20) BUN (7-21) mg/dL Creatinine (0.5-1.4) mg/dL Est GFR ( Amer) Est GFR (Non-Af Amer) POC Glucose (mg/dL) 135 H (65-110) mg/dL Random Glucose (70-110) mg/dL Calcium (8.4-10.5) mg/dL Troponin I ng/mL 05/09/17 05/09/17 05/08/17 Range/Units 04:20 00:00 21:45 WBC (4.5-11.0) 10^3/ul RBC (3.5-6.1) 10^6/uL Hgb (14.0-18.0) g/dL Hct (42.0-52.0) % MCV (80.0-105.0) fl MCH (25.0-35.0) pg MCHC (31.0-37.0) g/dl RDW (11.5-14.5) % Plt Count (120.0-450.0) 10^3/uL MPV (7.0-11.0) fl Gran % (50.0-68.0) % Lymph % (Auto) (22.0-35.0) % [place] % (Auto) (1.0-6.0) % Eos % (Auto) (1.5-5.0) % Baso % (Auto) (0.0-3.0) % Gran # (1.4-6.5) Lymph # (1.2-3.4) [place] # (0.1-0.6) Eos # (0.0-0.7) Baso # (0.0-2.0) K/mm3 APTT (23.7-30.8) Seconds Sodium 131 L (132-148) mmol/L Potassium 4.8 (3.6-5.0) mmol/L Chloride 91 L (95-110) mmol/L Carbon Dioxide 29 (21-33) mmol/L Anion Gap 16 (10-20) BUN 16 (7-21) mg/dL Creatinine 5.2 H (0.5-1.4) mg/dL Est GFR ( Amer) 14 Est GFR (Non-Af Amer) 12 POC Glucose (mg/dL) 172 H (65-110) mg/dL Random Glucose 155 H (70-110) mg/dL Calcium 8.6 (8.4-10.5) mg/dL Troponin I 0.06 0.06 D ng/mL Laboratory Results - last 24 hr 05/08/17 05/09/17 05/09/17 21:45 00:00 04:20 WBC RBC Hgb Hct MCV MCH MCHC RDW Plt Count MPV Gran % Lymph % (Auto) [place] % (Auto) Eos % (Auto) Baso % (Auto) Gran # Lymph # [place] # Eos # Baso # APTT Sodium 131 L Potassium 4.8 Chloride 91 L Carbon Dioxide 29 Anion Gap 16 BUN 16 Creatinine 5.2 H Est GFR ( Amer) 14 Est GFR (Non-Af Amer) 12 POC Glucose (mg/dL) 172 H Random Glucose 155 H Calcium 8.6 Troponin I 0.06 D 0.06 05/09/17 05/09/17 05/09/17 04:20 04:20 07:54 WBC 10.1 D RBC 4.39 Hgb 12.4 L Hct 38.1 L MCV 86.8 MCH 28.2 MCHC 32.5 RDW 16.8 H Plt Count 267 MPV 10.4 Gran % 81.7 H Lymph % (Auto) 8.0 L [place] % (Auto) 9.9 H Eos % (Auto) 0.2 L Baso % (Auto) 0.2 Gran # 8.23 H Lymph # 0.8 L [place] # 1.0 H Eos # 0.0 Baso # 0.02 APTT 56.9 H Sodium Potassium Chloride Carbon Dioxide Anion Gap BUN Creatinine Est GFR ( Amer) Est GFR (Non-Af Amer) POC Glucose (mg/dL) 135 H Random Glucose Calcium Troponin I EKG/Cardiology Studies: Cardiology / EKG Studies 05/08/17 18:56 EKG [ELECTROCARDIOGRAM] Stat Comment: Reason For Exam: Chest Pain, SOB, Tachycardia 05/09/17 12:23 ELECTROCARDIOGRAM Urgent Comment: 12 lead EKG upon arrival in unit Reason For Exam: post ptca 05/10/17 12:30 ELECTROCARDIOGRAM DAILY Comment: Reason For Exam: chest pain Critical Care Progress Note - Nutrition Nutrition: Nutrition Category Date Time Status Renal Diet [DIET] Diets 05/09/17 Lunch Ordered Attending/Attestation - Attestation I have personally seen and examined this patient.: Yes I have fully participated in the care of the patient.: Yes I have reviewed all pertinent clinical information: Yes Notes (Text): 05/09/17 17:43 56 y/o M admitted to the ICU overnight after concern for NSTEMI . No further episodes pf chest pain noted and SOb resolved. No troponin leak noted and BP under normal limits. Cardiac cath done today which showed patent bypass grafts. Cardiology plans to transfer the patient after 2 hrs watch post- cath site check. cc time 35 min
[2017-05-09] MEDS ORDERED: Iodixanol 320 MG/ML 100 ML BOTTLE IV ONE (12:13)
--- NOTE | 2017-05-09 12:43 | CP.PCM.PN ---
Objective - Vital Signs/Intake and Output Vital Signs (last 24 hours): Temp Pulse Resp BP Pulse Ox 98.3 F 94 H 41 H 129/66 95 05/09/17 02:00 05/09/17 09:43 05/09/17 06:10 05/09/17 09:43 05/09/17 06:10 Intake and Output: 05/09/17 05/09/17 06:59 18:59 Intake Total 418 Output Total 250 Balance 168 - Medications Medications: Current Medications Atorvastatin Calcium (Lipitor) 40 mg PO DIN [facility] Last Admin: 05/08/17 21:56 Dose: 40 mg Hydralazine HCl (Apresoline) 25 mg PO TID [facility] Last Admin: 05/09/17 09:43 Dose: 25 mg Insulin Detemir (Levemir) 12 unit SC HS [facility] Last Admin: 05/08/17 21:55 Dose: 12 unit Insulin Human Regular (Humulin R Med) 0 units SC ACHS [facility] PRN Reason: Protocol Last Admin: 05/09/17 07:57 Dose: Not Given Isosorbide Mononitrate (Imdur) 60 mg PO DAILY [facility] Losartan Potassium (Cozaar) 100 mg PO DAILY [facility] Last Admin: 05/09/17 09:50 Dose: 100 mg Metoprolol Tartrate (Lopressor) 25 mg PO BID [facility] Last Admin: 05/09/17 09:42 Dose: 25 mg Ondansetron HCl (Zofran Inj) 4 mg IVP Q4H PRN PRN Reason: Nausea/Vomiting Last Admin: 05/08/17 18:52 Dose: 4 mg Pantoprazole Sodium (Protonix Inj) 40 mg IVP DAILY [facility] Last Admin: 05/09/17 09:41 Dose: 40 mg Pregabalin (Lyrica) 75 mg PO BID [facility] Last Admin: 05/09/17 09:42 Dose: 75 mg Vitamin B Complex/Vit C/Folic Acid (Nephro-Eleni) 1 tab PO 0800 [facility] Last Admin: 05/09/17 08:07 Dose: 1 tab - Labs Labs: 05/09/17 04:20 05/09/17 04:20 PT 12.0 Seconds (9.9-11.8) H 05/08/17 19:30 INR 1.11 (0.93-1.08) H 05/08/17 19:30 APTT 56.9 Seconds (23.7-30.8) H 05/09/17 04:20
--- NOTE | 2017-05-09 13:05 | CARD ---
APPROVED REPORT EKG Measurement Heart [id number] <Conclusion> Sinus tachycardia Possible Left atrial enlargement Left ventricular hypertrophy Inferior infarct, possibly acute Anterolateral infarct, age undetermined ACUTE [place] Consider right ventricular involvement in acute inferior infarct Abnormal ECG Corelate clinically
--- NOTE | 2017-05-09 13:07 | CARD ---
APPROVED REPORT EKG Measurement Heart [id number] <Conclusion> Sinus tachycardia Possible Left atrial enlargement Left ventricular hypertrophy with repolarization abnormality Inferior infarct, possibly acute ACUTE [place] Consider right ventricular involvement in acute inferior infarct Corelate clinically Abnormal ECG
--- NOTE | 2017-05-09 13:33 | CP.PCM.PN ---
<Yohana Saleh - Last Filed: 05/09/17 13:32> Subjective - Date & Time of Evaluation Date of Evaluation: 05/09/17 Time of Evaluation: 08:15 - Subjective Subjective: seen and examined at the bedside earlier today, chart was reviewed. Events of last night were noted. The patient is status post dialysis became disoriented and complained of nausea vomiting and some mild chest pain, and found to have ST elevation, transfer to ICU for further monitoring. The patient currently denies any further episodes of nausea vomiting still has some mild chest pain. Objective - Vital Signs/Intake and Output Vital Signs (last 24 hours): Temp Pulse Resp BP Pulse Ox 98.3 F 94 H 41 H 129/66 95 05/09/17 02:00 05/09/17 09:43 05/09/17 06:10 05/09/17 09:43 05/09/17 06:10 Intake and Output: 05/09/17 05/09/17 06:59 18:59 Intake Total 418 Output Total 250 Balance 168 - Medications Medications: Current Medications Atorvastatin Calcium (Lipitor) 40 mg PO DIN [facility] Last Admin: 05/08/17 21:56 Dose: 40 mg Hydralazine HCl (Apresoline) 25 mg PO TID [facility] Last Admin: 05/09/17 09:43 Dose: 25 mg Insulin Detemir (Levemir) 12 unit SC HS [facility] Last Admin: 05/08/17 21:55 Dose: 12 unit Insulin Human Regular (Humulin R Med) 0 units SC ACHS [facility] PRN Reason: Protocol Last Admin: 05/09/17 07:57 Dose: Not Given Isosorbide Mononitrate (Imdur) 60 mg PO DAILY [facility] Losartan Potassium (Cozaar) 100 mg PO DAILY [facility] Last Admin: 05/09/17 09:50 Dose: 100 mg Metoprolol Tartrate (Lopressor) 25 mg PO BID [facility] Last Admin: 05/09/17 09:42 Dose: 25 mg Ondansetron HCl (Zofran Inj) 4 mg IVP Q4H PRN PRN Reason: Nausea/Vomiting Last Admin: 05/08/17 18:52 Dose: 4 mg Pantoprazole Sodium (Protonix Inj) 40 mg IVP DAILY [facility] Last Admin: 05/09/17 09:41 Dose: 40 mg Pregabalin (Lyrica) 75 mg PO BID [facility] Last Admin: 05/09/17 09:42 Dose: 75 mg Vitamin B Complex/Vit C/Folic Acid (Nephro-Eleni) 1 tab PO 0800 [facility] Last Admin: 05/09/17 08:07 Dose: 1 tab - Labs Labs: 05/09/17 04:20 05/09/17 04:20 PT 12.0 Seconds (9.9-11.8) H 05/08/17 19:30 INR 1.11 (0.93-1.08) H 05/08/17 19:30 APTT 56.9 Seconds (23.7-30.8) H 05/09/17 04:20 - Constitutional Appears: No Acute Distress - Head Exam Head Exam: NORMOCEPHALIC - Eye Exam Eye Exam: Normal appearance. absent: Scleral icterus - Respiratory Exam Respiratory Exam: NORMAL BREATHING PATTERN. absent: Respiratory Distress - Cardiovascular Exam Cardiovascular Exam: +S1, +S2 - GI/Abdominal Exam GI & Abdominal Exam: Soft, Normal Bowel Sounds. absent: Guarding, Tenderness, Organomegaly, Rebound - Extremities Exam Extremities Exam: Normal Capillary Refill. absent: Calf Tenderness, Pedal Edema - Neurological Exam Neurological Exam: Alert, Awake, Oriented x3 - Skin Skin Exam: Dry, Warm Assessment and Plan - Assessment and Plan (Free Text) Assessment: Assessment: Chest pain, history of [place] 3 GI bleed, status post EGD found to have nonbleeding esophageal ulcers, gastroparesis, esophagitis ESRD on dialysis Coronary artery disease status post CABG and PTCA Plan: Continue PPI Patient is for cardiac Today Monitor H&H As per cardiology and ICU team Diet as tolerated Seen and discussed with Dr. Rios. <Selwyn Rios V - Last Filed: 05/09/17 23:25> Objective - Vital Signs/Intake and Output Vital Signs (last 24 hours): Temp Pulse Resp BP Pulse Ox 98.0 F 77 18 135/81 95 05/09/17 16:30 05/09/17 18:12 05/09/17 16:00 05/09/17 18:12 05/09/17 16:00 - Medications Medications: Current Medications Atorvastatin Calcium (Lipitor) 40 mg PO DIN [facility] Last Admin: 05/09/17 18:13 Dose: 40 mg Hydralazine HCl (Apresoline) 25 mg PO TID [facility] Last Admin: 05/09/17 18:12 Dose: 25 mg Insulin Detemir (Levemir) 12 unit SC HS [facility] Last Admin: 05/09/17 21:38 Dose: 12 unit Insulin Human Regular (Humulin R Med) 0 units SC ACHS [facility] PRN Reason: Protocol Last Admin: 05/09/17 21:37 Dose: 3 units Isosorbide Mononitrate (Imdur) 60 mg PO DAILY [facility] Losartan Potassium (Cozaar) 100 mg PO DAILY [facility] Last Admin: 05/09/17 09:50 Dose: 100 mg Metoprolol Tartrate (Lopressor) 25 mg PO BID [facility] Last Admin: 05/09/17 18:12 Dose: 25 mg Ondansetron HCl (Zofran Inj) 4 mg IVP Q4H PRN PRN Reason: Nausea/Vomiting Last Admin: 05/08/17 18:52 Dose: 4 mg Pantoprazole Sodium (Protonix Inj) 40 mg IVP DAILY [facility] Last Admin: 05/09/17 09:41 Dose: 40 mg Pregabalin (Lyrica) 75 mg PO BID [facility] Last Admin: 05/09/17 18:20 Dose: Not Given Vitamin B Complex/Vit C/Folic Acid (Nephro-Eleni) 1 tab PO 0800 [facility] Last Admin: 05/09/17 08:07 Dose: 1 tab - Labs Labs: 05/09/17 04:20 05/09/17 04:20 PT 12.0 Seconds (9.9-11.8) H 05/08/17 19:30 INR 1.11 (0.93-1.08) H 05/08/17 19:30 APTT 56.9 Seconds (23.7-30.8) H 05/09/17 04:20 Attending/Attestation - Attestation I have personally seen and examined this patient.: Yes I have fully participated in the care of the patient.: Yes I have reviewed all pertinent clinical information, including history, physical exam and plan: Yes Notes (Text): this is an addendum to the GI progress report dictated by Yohana Saleh APN the patient was seen and evaluated earlier. Patient does have grade C esophagitis and need long-term PPI pured diet repeat EGD in about 6-8 weeks' time and the elective colonoscopy. Discussed with hospitalist at length 05/09/17 23:23
--- NOTE | 2017-05-09 16:40 | CARDCATH ---
PROCEDURE DATE: 05/09/2017 The patient developed chest pain as well as altered mental status yesterday after dialysis. EKG shows new ST changes in the inferior leads. The patient was brought in for cardiac catheterization. PROCEDURE Left heart catheterization with coronary arteriography, left ventriculogram, SOTO angiogram, and saphenous vein graft angiogram as well as supra-aortic valvular injection. The right femoral artery was cannulated with 6-Scottish sheath. There were no complications. The findings on catheterization revealed inferobasal hypokinesis with overall ejection fraction of approximately 50%. His coronary anatomy revealed a 50% elongated lesion in the left main artery. The LAD is occluded in its midportion. The circumflex artery subtotally occluded. The RCA is chronically occluded in its midportion. Supra-aortic valvular injection revealed no aortic insufficiency. The SOTO to the LAD was found to be pain of the guiding antegrade flow. Saphenous vein graft to the OM1 was found to be pain and right antegrade flow. The SVG to the posterolateral branch was found to be patent divided antegrade flow. Angio-Seal was used to close the femoral artery site. The patient tolerated the procedure well. In summary, the procedure revealed inferobasal hypokinesis of the LV with preserved LV function with an EF of 50%. Triple-vessel disease with a chronically occluded RCA. Patent SOTO to the LAD. Patent saphenous vein graft to the obtuse marginal branch one. Patent saphenous vein graft to the posterior lateral branch. Given these findings, the patient's changes are clearly chronic. No acute event is noted. We will continue medical therapy. We will restart aspirin once GI clears, given the patient has documented history of esophageal ulcers. Yousif Fisher MD
[2017-05-09] MEDS: Insulin Detemir 100 units/ml Vial (Levemir) SC SCH (21:38)
[2017-05-10 07:48] LABS: GRAN # 9.98 (1.4-6.5); GRAN % 86.9 % (50.0-68.0); HEMATOCRIT 33.7 % (42.0-52.0); LYMPH # 0.7 (1.2-3.4); LYMPH % 5.8 % (22.0-35.0); MEAN CELL VOLUME 84.7 fl (80.0-105.0); MEAN CORPUSCULAR HEMOGLOBIN 27.6 pg (25.0-35.0); MEAN CORPUSCULAR HGB CONC 32.6 g/dl (31.0-37.0); MEAN PLATELET VOLUME 10.7 fl (7.0-11.0); MONO # 0.8 (0.1-0.6); MONO % 7.3 % (1.0-6.0); RED CELL DISTRIBUTION WIDTH 16.4 % (11.5-14.5); WHITE BLOOD COUNT 11.5 10^3/ul (4.5-11.0)
[2017-05-10 08:10] LABS: CALCIUM 8.4 mg/dL (8.4-10.5); POTASSIUM 4.8 mmol/L (3.6-5.0)
--- NOTE | 2017-05-10 08:20 | PN ---
DATE: 05/10/2017 SUBJECTIVE: The patient is without complaints. PHYSICAL EXAMINATION: VITAL SIGNS: Blood pressure is 135/81, the heart rate is in the 70s. NECK: Negative JVD. LUNGS: Without rales. HEART: S1, S2. Extremities: Without edema. The right groin site is stable. LABORATORY DATA: Pending. IMPRESSION: 1. Stable angina. 2. Status post catheterization reveals patent grafts. 3. End-stage renal disease. 4. Anemia. 5. History of nausea. Given these findings, the patient is hemodynamically stable. His cardiac status is unchanged and his occluded RCA appears chronic. After dialysis, the patient can be discharged from a cardiac perspective. Yousif Fisher MD
[2017-05-10] MEDS: Insulin Reg-MEDIUM-Coverage SC SCH ×2 (08:26→12:26)
[2017-05-10] MEDS: Multivitamin Vitamin B Complex (Nephro-Vite) Tab PO SCH (08:27)
[2017-05-10 08:44] VITALS: RESP 20; TEMP 97.6; O2SAT 96
--- NOTE | 2017-05-10 09:19 | PN ---
DATE: CHIEF COMPLAINT: I feel good today. I am hungry. REVIEW OF SYSTEMS AND HPI: Noted overnight event. Patient did not tolerate dialysis well yesterday. He had episode of confusion. Had CT scan of brain. Chest x-ray done. Also had normal EKG. Patient underwent cardiac catheterization today. He was seen in the CC after cardiac catheterization. Patient at this times feels much better. Denies any chest pain, palpitations, shortness of breath. No nausea, vomiting. Denies any stomach pain. He is orally accepting. He denies any urinary or bowel complaint. He does have a Macias catheter. Patient denies any leg swelling. He denies any headache, tingling, numbness, dizziness at this time. PHYSICAL EXAMINATION: GENERAL: Patient appear comfortable, not in acute distress, pleasant and cooperative. VITAL SIGNS: Noted, stable. Afebrile. Blood pressure 132/68. NEUROLOGIC: Patient A&O x3. Moving all four extremities. No focal deficits noted at this time. CARDIOVASCULAR: S1 and S2 are normal. No murmur. No rub. RESPIRATORY: Bilateral vesicular breath sounds. Clear bilateral. No additional sounds. LUNGS: Bilateral air movement symmetrical. ABDOMEN: Soft, nontender, no organomegaly. No guarding. EXTREMITIES: No edema. GENITOURINARY: Patient has a Macias catheter for urinary retention. Otherwise, there is no palpable bladder or Macias. PSYCHIATRIC: Patient is pleasant, cooperative. His judgement is appropriate. Insight is present. Affect and mood is normal. LABORATORY DATA: Workup, his hemoglobin 12.4, platelet count 267, potassium is 4.8, creatinine is 5.2, glucose 155. Chest x-ray and brain CT scan are unremarkable. Final results on cardiac cath results are pending at this time. MEDICATIONS: His all current medications were also reviewed. Patient is on Lipitor 40 mg, then he get hydralazine 25 mg t.i.d., Levemir 12 units and sliding scale, Imdur 16 mg which is on hold and losartan 100 mg per day, metoprolol 25 mg two times a day, pantoprazole 40 mg daily, Lyrica 75 mg b.i.d. and Nephro-Eleni daily. ASSESSMENT: 1. Diabetic chronic kidney disease. 2. Hypertensive chronic kidney disease. 3. End stage renal disease, on hemodialysis by Perma-Cath. 4. Anemia. 5. Hyperphosphatemia secondary to hyperparathyroidism. 6. Hypertension. 7. Intractable nausea and vomiting status post EGD, which shows esophageal ulceration and gastroparesis. 8. Altered mental status during dialysis, which is resolved. 9. Patient is status post cardiac catheterization today. RECOMMENDATIONS: No acute need for dialysis today. We will plan for dialysis tomorrow. Continue with Nephro-Eleni daily. Hemoglobin is improved ?dehydration as a cause for his raise in hemoglobin. Then, otherwise, his phosphorous level is controlled with dialysis. Continue with blood pressure medications, glycemic control, dialysis diet. Then, he is on PPI. Then, he is stable otherwise from renal prospective. We will reduce the UF goal up to 1 kilo tomorrow for dialysis. Thank you for allowing me to participate in the care of your patient. Please call if any questions. Sancho Garrett MD
[2017-05-10 09:41] VITALS: BP 155/88; PULSE 82
--- NOTE | 2017-05-10 10:19 | CARD ---
APPROVED REPORT EKG Measurement Heart [id number] <Conclusion> Normal sinus rhythm Septal infarct, age undetermined Inferior infarct, age undetermined T wave abnormality, consider lateral ischemia High Voltage LVH.
--- NOTE | 2017-05-10 13:54 | CP.PCM.PN ---
Subjective - Date & Time of Evaluation Date of Evaluation: 05/10/17 Time of Evaluation: 10:30 - Subjective Subjective: S&E earlier at bedside, chart reviewed, s/p cardiac cath, no acute findings or interventions. No N/V or abdominal pain. Denies chest pain, SOB. No acute events. Objective - Vital Signs/Intake and Output Vital Signs (last 24 hours): Temp Pulse Resp BP Pulse Ox 97.6 F 82 20 155/88 H 96 05/10/17 07:30 05/10/17 09:38 05/10/17 07:30 05/10/17 09:38 05/10/17 07:30 - Medications Medications: Current Medications Atorvastatin Calcium (Lipitor) 40 mg PO DIN [facility] Last Admin: 05/09/17 18:13 Dose: 40 mg Hydralazine HCl (Apresoline) 25 mg PO TID [facility] Last Admin: 05/10/17 09:38 Dose: 25 mg Insulin Detemir (Levemir) 12 unit SC HS [facility] Last Admin: 05/09/17 21:38 Dose: 12 unit Insulin Human Regular (Humulin R Med) 0 units SC ACHS [facility] PRN Reason: Protocol Last Admin: 05/10/17 12:26 Dose: 5 units Isosorbide Mononitrate (Imdur) 60 mg PO DAILY [facility] Losartan Potassium (Cozaar) 100 mg PO DAILY [facility] Last Admin: 05/10/17 09:38 Dose: 100 mg Metoprolol Tartrate (Lopressor) 25 mg PO BID [facility] Last Admin: 05/10/17 09:38 Dose: 25 mg Ondansetron HCl (Zofran Inj) 4 mg IVP Q4H PRN PRN Reason: Nausea/Vomiting Last Admin: 05/08/17 18:52 Dose: 4 mg Pantoprazole Sodium (Protonix Inj) 40 mg IVP DAILY [facility] Last Admin: 05/10/17 09:37 Dose: 40 mg Pregabalin (Lyrica) 75 mg PO BID [facility] Last Admin: 05/10/17 09:37 Dose: 75 mg Vitamin B Complex/Vit C/Folic Acid (Nephro-Eleni) 1 tab PO 0800 [facility] Last Admin: 05/10/17 08:27 Dose: 1 tab - Labs Labs: 05/10/17 07:30 05/10/17 07:30 PT 12.0 Seconds (9.9-11.8) H 05/08/17 19:30 INR 1.11 (0.93-1.08) H 05/08/17 19:30 APTT 34.8 Seconds (23.7-30.8) H 05/10/17 07:30 - Constitutional Appears: No Acute Distress - Head Exam Head Exam: NORMOCEPHALIC - Eye Exam Eye Exam: Normal appearance. absent: Scleral icterus - ENT Exam ENT Exam: Mucous Membranes Moist - Respiratory Exam Respiratory Exam: NORMAL BREATHING PATTERN. absent: Respiratory Distress - Cardiovascular Exam Cardiovascular Exam: +S1, +S2 - GI/Abdominal Exam GI & Abdominal Exam: Soft, Normal Bowel Sounds. absent: Guarding, Tenderness, Organomegaly, Rebound - Extremities Exam Extremities Exam: Normal Capillary Refill. absent: Calf Tenderness, Pedal Edema - Neurological Exam Neurological Exam: Alert, Awake, Oriented x3 - Skin Skin Exam: Dry, Warm Assessment and Plan - Assessment and Plan (Free Text) Assessment: Assessment: Chest pain, history of PA 3 , s/p cardiac cath, no acute findings, chronic RCA occulsions GI bleed, status post EGD found to have nonbleeding esophageal ulcers, gastroparesis, esophagitis ESRD on dialysis Coronary artery disease status post CABG and PTCA Plan: Continue PPI Monitor H&H Diet as tolerated will need repeat EGD in 6-8 weeks to fu healing of ulcer and benefit from elective colonoscopy. FU GI clinic. Seen and discussed with Dr. Rios.
--- NOTE | 2017-05-10 17:03 | CARD ---
APPROVED REPORT EKG Measurement Heart [id number] [place] [id number] <Conclusion> Normal sinus rhythm Septal infarct, age undetermined Inferior infarct, age undetermined T wave abnormality, consider lateral ischemia Abnormal ECG
--- NOTE | 2017-05-10 18:11 | CP.PCM.DIS ---
Provider - Provider Date of Admission: 05/08/17 19:30 Attending physician: Marty Muir MD Primary care physician: Mercedez Parekh MD Time Spent in preparation of Discharge (in minutes): 45 Hospital Course - Lab Results Lab Results: Micro Results 05/08/17 22:27 Naris MRSA Culture (Admit) - Final MRSA NOT DETECTED Most Recent Lab Values WBC 11.5 10^3/ul (4.5-11.0) H 05/10/17 07:30 RBC 3.98 10^6/uL (3.5-6.1) 05/10/17 07:30 Hgb 11.0 g/dL (14.0-18.0) L 05/10/17 07:30 Hct 33.7 % (42.0-52.0) L 05/10/17 07:30 MCV 84.7 fl (80.0-105.0) 05/10/17 07:30 MCH 27.6 pg (25.0-35.0) 05/10/17 07:30 MCHC 32.6 g/dl (31.0-37.0) 05/10/17 07:30 RDW 16.4 % (11.5-14.5) H 05/10/17 07:30 Plt Count 261 10^3/uL (120.0-450.0) 05/10/17 07:30 MPV 10.7 fl (7.0-11.0) 05/10/17 07:30 Gran % 86.9 % (50.0-68.0) H 05/10/17 07:30 Lymph % (Auto) 5.8 % (22.0-35.0) L 05/10/17 07:30 [place] % (Auto) 7.3 % (1.0-6.0) H 05/10/17 07:30 Eos % (Auto) 0.0 % (1.5-5.0) L 05/10/17 07:30 Baso % (Auto) 0.0 % (0.0-3.0) 05/10/17 07:30 Gran # 9.98 (1.4-6.5) H 05/10/17 07:30 Lymph # 0.7 (1.2-3.4) L 05/10/17 07:30 [place] # 0.8 (0.1-0.6) H 05/10/17 07:30 Eos # 0.0 (0.0-0.7) 05/10/17 07:30 Baso # 0.00 K/mm3 (0.0-2.0) 05/10/17 07:30 PT 12.0 Seconds (9.9-11.8) H 05/08/17 19:30 INR 1.11 (0.93-1.08) H 05/08/17 19:30 APTT 34.8 Seconds (23.7-30.8) H 05/10/17 07:30 pO2 45 mm/Hg (30-55) 05/08/17 19:30 VBG pH 7.52 (7.32-7.43) H 05/08/17 19:30 VBG pCO2 34.0 (40-60) L 05/08/17 19:30 VBG HCO3 27.8 mmol/l (21-28) 05/08/17 19:30 VBG Total CO2 28.8 mmol.L (22-28) H 05/08/17 19:30 VBG O2 Sat (Calc) 88.6 % (40-65) H 05/08/17 19:30 VBG Base Excess 5.1 mmol/L (0.0-2.0) H 05/08/17 19:30 VBG Potassium 3.3 mmol/L (3.6-5.2) L 05/08/17 19:30 Sodium 134.0 mmol/L (132-148) 05/08/17 19:30 Chloride 95.0 mmol/L (98-107) L 05/08/17 19:30 Glucose 140 mg/dl (75-110) H 05/08/17 19:30 Lactate 1.4 mmol/L (0.7-2.1) 05/08/17 19:30 FiO2 21.0 % 05/08/17 19:30 Sodium 129 mmol/L (132-148) L 05/10/17 07:30 Potassium 4.8 mmol/L (3.6-5.0) 05/10/17 07:30 Chloride 91 mmol/L (98-107) L 05/10/17 07:30 Carbon Dioxide 25 mmol/L (21-33) 05/10/17 07:30 Anion Gap 18 (10-20) 05/10/17 07:30 BUN 38 mg/dL (7-21) H 05/10/17 07:30 Creatinine 6.9 mg/dL (0.5-1.4) H 05/10/17 07:30 Est GFR ( Amer) 10 05/10/17 07:30 Est GFR (Non-Af Amer) 8 05/10/17 07:30 POC Glucose (mg/dL) 264 mg/dL (65-110) H 05/10/17 11:34 Random Glucose 410 mg/dL (70-110) H* D 05/10/17 07:30 Calcium 8.4 mg/dL (8.4-10.5) 05/10/17 07:30 Phosphorus 2.2 mg/dL (2.5-4.5) L 05/08/17 19:30 Magnesium 1.5 mg/dL (1.7-2.2) L 05/08/17 19:30 Total Bilirubin 1.2 mg/dL (0.2-1.3) 05/08/17 19:30 AST 21 U/L (17-59) 05/08/17 19:30 ALT 30 U/L (7-56) 05/08/17 19:30 Alkaline Phosphatase 116 U/L (38-126) 05/08/17 19:30 Lactate Dehydrogenase 590 U/L (333-699) 05/07/17 11:06 Total Creatine Kinase 49 U/L (35-230) 05/07/17 11:06 Troponin I 0.06 ng/mL 05/09/17 04:20 Total Protein 7.1 g/dL (5.8-8.3) 05/08/17 19:30 Albumin 3.9 g/dL (3.0-4.8) 05/08/17 19:30 Globulin 3.2 gm/dL 05/08/17 19:30 Albumin/Globulin Ratio 1.2 (1.1-1.8) 05/08/17 19:30 Lipase 29 U/L (23-300) 05/07/17 11:07 Venous Blood Potassium 3.3 mmol/L (3.6-5.2) L 05/08/17 19:30 - Hospital Course Hospital Course: 56 year old male with a past medical history significant for hypertension, DM-2 , CAD S/P CABG and stents , ESRD on hemodialysis, , anemia, secondary who [place] [facility] [place] of 6 episodes of vomiting, some hematemesis, in the past 1.5 days. He reports his last dialysis was last Monday and reported no problems. Patient states these symptoms are usual for the past month, but worsen these past two days. He reported he couldn't sleep yesterday, has a fever , sweats, abdominal pain, heart burn, and diarrhea twice a day, but denies any chest pain, shortness of breath, urinary symptoms, back pain, neck pain, headache, dizziness, or any other complaint. He underwent an upper endoscop[y that showed esophageal ulcers and was recommended to be placed on Pepcid, Protonix, and Sucralafate. Cardiology also did a left heart cath that showed chronic lesions Discharge Exam - Head Exam Head Exam: NORMOCEPHALIC Discharge Plan - Discharge Medications Prescriptions: Famotidine 20 mg PO DAILY #30 tablet Ondansetron [Zofran Odt] 4 mg PO Q4H PRN #90 odt PRN Reason: Nausea/Vomiting Pantoprazole Sodium [Protonix] 20 mg PO DAILY #30 ect Sucralfate [Carafate] 1 gm PO QID #112 tab - Follow Up Plan Condition: FAIR Disposition: HOME/ ROUTINE Instructions: Gastrointestinal Bleeding (DC), Pneumococcal Vaccine for Adults ( DC) Additional Instructions: - Please follow up with your primary care doctor - Take pantoprazole 20 mg in the morning with pepcid 20 mg 1 hour before first meal for the next 8 weeks. - - You will need to follow up in the [facility] clinic in 1-[address] Olivo. - The directions of the clinic as stated below ( but can come to [facility] main entrance and ask security for direction). - Continue with all your home medications. - Go to the nearest emergency room if you experience chest pain, dizziness or lightheadedness or if you continue to experience bloody vomiting. Referrals: [facility] [place]Outside] (With Dr SANDERS ) [facility] [Outside] Rocky Giron MD [Staff Provider] - Mercedez Parekh MD [Primary Care Provider] - Selwyn Rios MD [Medical Doctor] - Hung Sanders MD [Staff Provider] -
--- NOTE | 2017-05-11 08:26 | CON ---
DATE: 05/10/2017 CHIEF COMPLAINT: "I feel very good today." Denies any new complaint. HPI AND REVIEW OF SYSTEMS: Noted overnight events. The patient had cardiac catheterization yesterday. He remains stable. He denies any complaint at this time. Denies any chest pain, palpitation, shortness of breath, or cough. Denies fever, chills, nausea or vomiting. He continues with Macias catheter. He denies any urinary complaint. He denies any nausea or vomiting. He is tolerating diet well. PHYSICAL EXAMINATION: GENERAL: The patient is seen in his room. He is comfortable, not in acute distress, pleasant, cooperative. VITAL SIGNS: Vital signs were stable. Afebrile. Pulse 82, blood pressure 155/88. LUNGS: Bilateral vesicular breath sounds clear. CARDIOVASCULAR: S1 and S2 normal. No murmur. ABDOMEN: Soft, nontender. No organomegaly could be appreciated. Nontender. EXTREMITIES: No edema. SKIN: Normal turgor. No rashes, no ulcer. PSYCHIATRIC: The patient is pleasant and cooperative. Judgement is appropriate. Affect is normal. Insight is present as well. NEUROLOGIC: Alert and oriented x3. No focal deficit at this time. Moving all 4 extremities. LABORATORY DATA: Workup shows hemoglobin 11, white blood cell count 11.5, platelet count is 261. Sodium is 129 with a glucose of 410, potassium 4.8, bicarbonate is 25, BUN 30, creatinine 6.9. MEDICATIONS: Current medications were reviewed, which showed Lipitor 40 mg per day, hydralazine 25 mg 3 times a day, Levemir and insulin, Imdur 60 mg per day, losartan 100 mg per day, metoprolol 25 mg b.i.d., pantoprazole 40 mg daily, Lyrica 75 mg b.i.d. and Nephro-Eleni daily. ASSESSMENT: 1. Diabetic chronic kidney disease, hypertensive chronic kidney disease, and end-stage renal disease, [facility]. 2. Anemia and hyperphosphatemia. 3. Secondary hyperparathyroidism, hypertension, intractable nausea, vomiting with esophageal ulcer and gastroparesis. 4. Altered mental status, resolved. 5. Coronary artery disease, status post coronary artery bypass graft. RECOMMENDATIONS: The patient is due for hemodialysis today. Unfortunately, the patients are unable to get dialysis in the hospital. Either he will need to be transferred to the [facility] to receive inpatient dialysis which the patient has absolutely refused. He says rather he will do the dialysis tomorrow. If the patient is stable for discharge medically, then we will be able to bring him for the outpatient dialysis. Discussed with the primary care team. Otherwise, continue with the Nephro-Eleni. Hemoglobin is stable. His is on hold for now. His phosphorus level is controlled. Continue blood pressure medications. The patient in glycemic control and his serum sodium is low because of likely pseudohyponatremia. He is on PPI. His UF goal is reduced because of his altered mental status during last dialysis. Thank you for allowing me to participate in the care of your patient. Please call if any questions. Discussed with the primary team. Sancho Garrett MD
== END 2017-05-10 14:05 | disposition home or self-care (01) | DRG 174 ==
LOC: ED 09:49 → ERH 13:08 → 3RSO 14:16 → OBSVTOIN 05-08 19:30 → CCU 05-08 20:28 → 5RSO 05-09 18:45
PROVIDERS: ADMIT Hospitalist; ATTEND Hospitalist
PROC: 0DJ08ZZ Inspection of Upper Intestinal Tract, Via Natural or Artificial Opening Endoscopic (ICD-10-PCS; 2017-05-08)
PROC: 4A023N7 Measurement of Cardiac Sampling and Pressure, Left Heart, Percutaneous Approach (ICD-10-PCS; principal; 2017-05-09)
PROC: B2111ZZ Fluoroscopy of Multiple Coronary Arteries using Low Osmolar Contrast (ICD-10-PCS; 2017-05-09)
PROC: B2121ZZ Fluoroscopy of Single Coronary Artery Bypass Graft using Low Osmolar Contrast (ICD-10-PCS; 2017-05-09)
PROC: B2151ZZ Fluoroscopy of Left Heart using Low Osmolar Contrast (ICD-10-PCS; 2017-05-09)
PROC: B31N1ZZ Fluoroscopy of Other Upper Arteries using Low Osmolar Contrast (ICD-10-PCS; 2017-05-09)
DX: K92.0 Hematemesis (principal); I12.0 Hypertensive chronic kidney disease with stage 5 chronic kidney disease or end stage renal disease; J81.1 Chronic pulmonary edema; N18.6 End stage renal disease; E11.22 Type 2 diabetes mellitus with diabetic chronic kidney disease; E87.1 Hypo-osmolality and hyponatremia; K22.10 Ulcer of esophagus without bleeding; E87.6 Hypokalemia; E11.42 Type 2 diabetes mellitus with diabetic polyneuropathy; E11.43 Type 2 diabetes mellitus with diabetic autonomic (poly)neuropathy; K31.84 Gastroparesis; E83.39 Other disorders of phosphorus metabolism; E78.5 Hyperlipidemia, unspecified; D64.9 Anemia, unspecified; I25.118 Atherosclerotic heart disease of native coronary artery with other forms of angina pectoris; I25.2 Old myocardial infarction; I73.9 Peripheral vascular disease, unspecified; N25.81 Secondary hyperparathyroidism of renal origin; Z79.899 Other long term (current) drug therapy; Z86.73 Personal history of transient ischemic attack (TIA), and cerebral infarction without residual deficits; Z87.19 Personal history of other diseases of the digestive system; Z87.440 Personal history of urinary (tract) infections; Z87.891 Personal history of nicotine dependence; Z91.81 History of falling; Z95.5 Presence of coronary angioplasty implant and graft; Z99.2 Dependence on renal dialysis; R40.2412 Glasgow coma scale score 13-15, at arrival to emergency department; R33.9 Retention of urine, unspecified; Z95.1 Presence of aortocoronary bypass graft; K29.50 Unspecified chronic gastritis without bleeding; K44.9 Diaphragmatic hernia without obstruction or gangrene; Z87.892 Personal history of anaphylaxis; Z91.013 Allergy to seafood; M21.6X1 Other acquired deformities of right foot; R00.0 Tachycardia, unspecified; F12.90 Cannabis use, unspecified, uncomplicated

== ENCOUNTER 2017-05-11 15:13 | Inpatient (IN) | payer OTHER ==
[2017-05-11 15:14] VITALS: BMI 29.5
--- NOTE | 2017-05-11 15:33 | ED PDOC ---
Arrival/HPI - General Chief Complaint: Weakness/Neurological Deficit Time Seen by Provider: 05/11/17 15:24 Historian: Patient, Other (Friend) - History of Present Illness Narrative History of Present Illness (Text): 05/11/17 15:32 A 56 year old male, whose past medical history includes ESRD with hemodialysis on M//, was brought into the emergency department by friend for generalized weakness and a fever. Friend reports while walking down the stairs patient slipped and fell landing on his right side. Friend denies any other injuries, loss of consciousness or head trauma. Patient denies any nausea, vomiting, abdominal pain, chest pain, shortness of breath or any other complaints. Time/Duration: Prior to Arrival Symptom Course: Unchanged Quality: Other Context: Other Past Medical History - Provider Review Nursing Documentation Reviewed: Yes - Infectious Disease Hx of Infectious Diseases: None - Tetanus Immunization Tetanus Immunization: Unknown - Cardiac Hx Cardiac Disorders: Yes (CABG x 3) Hx Hypertension: Yes - Pulmonary Hx Respiratory Disorders: Yes Other/Comment: PULMONARY EDEMA - Neurological HX Cerebrovascular Accident: Yes - HEENT Hx HEENT Disorder: Yes (CONTACT LENSES) - Renal Hx Renal Failure: Yes Other/Comment: Dialysis -W- - Endocrine/Metabolic Hx Diabetes Mellitus Type 1: Yes - Hematological/Oncological Hx Blood Transfusions: Yes Hx Blood Transfusion Reaction: Yes - Integumentary Hx Dermatological Disorder: Yes Other/Comment: millicent hernández ext rash, pt stated "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" - Musculoskeletal/Rheumatological Hx Musculoskeletal Disorders: No Hx Falls: No Other/Comment: generalized weakness - Gastrointestinal Hx Gastrointestinal Disorders: No - Genitourinary/Gynecological Hx Urinary Tract Infection: Yes - Psychiatric Hx Psychophysiologic Disorder: No Hx Depression: No Hx Emotional Abuse: No Hx Physical Abuse: No Hx Substance Use: Yes (MARIJUANA) - Surgical History Hx Amputation: Yes (R toes) Hx Cardiac Catheterization: Yes (09/09) Hx Coronary Stent: Yes Hx Open Heart Surgery: Yes (12-26-12) - Anesthesia Hx Anesthesia: Yes Hx Anesthesia Reactions: No Hx Malignant Hyperthermia: No - Suicidal Assessment Feels Threatened In Home Enviroment: No Family/Social History - Physician Review Nursing Documentation Reviewed: Yes Family/Social History: No Known Family HX Smoking Status: Never Smoked Hx Alcohol Use: Yes (QUIT 4 YEARS AGO) Hx Substance Use: Yes (MARIJUANA) Hx Substance Use Treatment: No Allergies/Home Meds Allergies/Adverse Reactions: Allergies Seafood Allergy (Uncoded 05/07/17 10:01) ANAPHYLAXIS Review of Systems - Physician Review All systems were reviewed & negative as marked: Yes - Review of Systems Constitutional: Fevers, Other (Generalized weakness) Respiratory: absent: SOB Cardiovascular: absent: Chest Pain Gastrointestinal: absent: Abdominal Pain, Nausea, Vomiting Musculoskeletal: Other (Right sided pain along chest and abdomen) Physical Exam Vital Signs Reviewed: Yes Vital Signs Temp Pulse Resp BP Pulse Ox 05/11/17 16:32 100 H 20 138/72 96 05/11/17 16:15 101.5 F H 05/11/17 15:22 101.5 F H 20 137/83 96 Temperature: Afebrile Blood Pressure: Normal Respiratory Rate: Normal Appearance: Positive for: Well-Appearing, Non-Toxic, Comfortable Pain Distress: None Mental Status: Positive for: Confused - Systems Exam Head: Present: Atraumatic, Normocephalic Pupils: Present: PERRL Extroacular Muscles: Present: EOMI Conjunctiva: Present: Normal Mouth: Present: Moist Mucous Membranes Pharnyx: No: ERYTHEMA, EXUDATE, TONSILS ENLARGED Neck: Present: Normal Range of Motion Respiratory/Chest: Present: Good Air Exchange, Decreased Breath Sounds ( bilaterally), Tender to Palpation (Right sided chest wall tenderness). No: Respiratory Distress, Accessory Muscle Use Cardiovascular: Present: Regular Rate and Rhythm, Normal S1, S2. No: Murmurs Abdomen: Present: Tenderness (RUQ tenderness), Normal Bowel Sounds, Guarding. No: Distention, Peritoneal Signs, Rebound Back: Present: Normal Inspection Upper Extremity: Present: Normal Inspection. No: Cyanosis, Edema Lower Extremity: Present: Normal Inspection. No: Edema Neurological: Present: GCS=15, CN II-XII Intact, Speech Normal Skin: Present: Warm, Dry, Normal Color. No: Rashes Psychiatric: Present: Alert, Other (Confused). No: Oriented x 3 (Oriented x 2) Medical Decision Making ED Course and Treatment: 05/11/17 15:32 Impression: A 56 year old male with generalized weakness and fever. Patient appears confused , alert and oriented x 2. Friend reports right sided chest wall pain after mechanical fall today. Differential Diagnosis included but are not limited to: Sepsis rule out PNA Plan: -- Chest xray -- EKG -- Labs -- Blood and Urine culture -- Urinalysis -- Tylenol -- Reassess and disposition Progress Notes: EKG shows NSR at 97 BPM with Q-waves in inferior leads, nonspecific ST changes, no changes compared to prior on 05/10/17. Interpreted by me. 05/11/17 16:30 Chest xray read and interpreted by me, which shows left lower lobe pneumonia vs vascular congestion Code Sepsis was called and patient was treated with broad spectrum antibiotics: Vanco and Zosyn. Macias was in place on arrival. Changed by Roya MARTINEZ. States it was dirty and no urine output. Report Date : 05/11/2017 16:43:50 Procedure: Chest xray Dictator : Nikita Freedman MD IMPRESSION: Moderate cardiomegaly and moderate vascular congestion. The vascular congestion has increased 05/11/17 17:24 Case was discussed with Dr. Yvonne Muir who states his corporate compliance officer is Dr. Garrett. Consult was placed. Patient will go to dialysis. - Critical Care Critical Care Minutes: 30 minutes - Lab Interpretations Lab Results: 05/11/17 16:00 05/11/17 16:00 Lab Results 05/11/17 16:00: Total Creatine Kinase 80 05/11/17 16:00: Sodium 127 L, Chloride 88 L, Potassium 4.6, Carbon Dioxide 24, Anion Gap 20, BUN 56 H, Creatinine 8.3 H*, Est GFR ( Amer) 8, Est GFR ( Non-Af Amer) 7, Random Glucose 239 H, Calcium 8.6, Phosphorus 3.0, Magnesium 2.3 H, Total Bilirubin 1.0, AST 31, ALT 24, Alkaline Phosphatase 110, Total Protein 6.7, Albumin 3.7, Globulin 3.0, Albumin/Globulin Ratio 1.2 05/11/17 16:00: pO2 40, VBG pH 7.34, VBG pCO2 46.0, VBG HCO3 24.8, VBG Total CO2 26.2, VBG O2 Sat (Calc) 75.8 H, VBG Base Excess -1.3 L, VBG Potassium 4.7, Sodium 124.0 L, Chloride 89.0 L, Glucose 256 H, Lactate 2.4 H, FiO2 21.0, Venous Blood Potassium 4.7 05/11/17 16:00: PT 13.4 H, INR 1.24 H, APTT 33.2 H 05/11/17 16:00: WBC 15.8 H D, RBC 3.90, Hgb 10.9 L, Hct 32.7 L, MCV 83.8, MCH 27.9, MCHC 33.3, RDW 17.3 H, Plt Count 252, MPV 10.9, Gran % 79.6 H, Lymph % ( Auto) 9.5 L, [place] % (Auto) 10.7 H, Eos % (Auto) 0.0 L, Baso % (Auto) 0.2, Gran # 12.61 H, Lymph # 1.5, [place] # 1.7 H, Eos # 0.0, Baso # 0.03 I have reviewed the lab results: Yes - RAD Interpretation Radiology Orders: 05/11/17 15:32 CHEST PORTABLE [RAD] Stat - Medication Orders Current Medication Orders: Vancomycin HCl (Vancomycin 1gm) 1 gm in 250 mls @ 167 mls/hr IVPB STAT STA PRN Reason: Protocol Stop: 05/11/17 17:59 Discontinued Medications Acetaminophen (Tylenol 325mg Tab) 650 mg PO STAT STA Stop: 05/11/17 15:34 Last Admin: 05/11/17 16:15 Dose: 650 mg Piperacillin Sod/Tazobactam Sod (Zosyn 4.5 Gm In Ns 100ml) 4.5 gm in 100 mls @ 200 mls/hr IVPB STAT STA PRN Reason: Protocol Stop: 05/11/17 16:59 Last Admin: 05/11/17 16:50 Dose: 200 mls/hr - Scribe Statement The provider has reviewed the documentation as recorded by the Tamara Sweet Provider Scribe Attestation: All medical record entries made by the Scribe were at my direction and personally dictated by me. I have reviewed the chart and agree that the record accurately reflects my personal performance of the history, physical exam, medical decision making, and the department course for this patient. I have also personally directed, reviewed, and agree with the discharge instructions and disposition. Disposition/Present on Arrival - Present on Arrival Any Indicators Present on Arrival: No History of DVT/PE: No History of Uncontrolled Diabetes: No Urinary Catheter: No History of Decub. Ulcer: No History Surgical Site Infection Following: None - Disposition Have Diagnosis and Disposition been Completed?: Yes Diagnosis: Sepsis, ESRD on dialysis Disposition: HOSPITALIZED Disposition Time: 16:50 Patient Plan: Admission Condition: FAIR
[2017-05-11 16:11] LABS: BASO # 0.03 K/mm3 (0.0-2.0); BASO % 0.2 % (0.0-3.0); GRAN # 12.61 (1.4-6.5); GRAN % 79.6 % (50.0-68.0); HEMATOCRIT 32.7 % (42.0-52.0); LYMPH # 1.5 (1.2-3.4); LYMPH % 9.5 % (22.0-35.0); MEAN CELL VOLUME 83.8 fl (80.0-105.0); MEAN CORPUSCULAR HEMOGLOBIN 27.9 pg (25.0-35.0); MEAN CORPUSCULAR HGB CONC 33.3 g/dl (31.0-37.0); MEAN PLATELET VOLUME 10.9 fl (7.0-11.0); MONO # 1.7 (0.1-0.6); MONO % 10.7 % (1.0-6.0); RED CELL DISTRIBUTION WIDTH 17.3 % (11.5-14.5); WHITE BLOOD COUNT 15.8 10^3/ul (4.5-11.0)
[2017-05-11 16:12] LABS: VENOUS BLOOD GAS BASE EXCESS -1.3 mmol/L (0.0-2.0); VENOUS BLOOD PH 7.34 (7.32-7.43)
[2017-05-11 16:22] LABS: ALB/GLOB RATIO 1.2 (1.1-1.8); CALCIUM 8.6 mg/dL (8.4-10.5); INR 1.24 (0.93-1.08); MAGNESIUM 2.3 mg/dL (1.7-2.2); PARTIAL THROMBOPLASTIN TIME 33.2 Seconds (23.7-30.8); POTASSIUM 4.6 mmol/L (3.6-5.0); TOTAL PROTEIN 6.7 g/dL (5.8-8.3)
[2017-05-11] MEDS ORDERED: Vancomycin 1gm in NS 250ml 1 GM/250 ML BAG IVPB STA (16:30)
[2017-05-11] MEDS ORDERED: Piperacill/Tazo 4.5gm in NS 4.5 GM/100 ML BAG IVPB STA (16:30)
--- NOTE | 2017-05-11 16:45 | RAD ---
HISTORY: Sepsis Patient COMPARISON: 05/08/2017 FINDINGS: LUNGS: No active pulmonary disease. PLEURA: No significant pleural effusion identified, no pneumothorax apparent. CARDIOVASCULAR: Moderate cardiomegaly and moderate vascular congestion. The vascular congestion has increased OSSEOUS STRUCTURES: Sternal wires. Right-sided dialysis catheter VISUALIZED UPPER ABDOMEN: Normal. OTHER FINDINGS: None. IMPRESSION: Moderate cardiomegaly and moderate vascular congestion. The vascular congestion has increased
--- NOTE | 2017-05-11 17:03 | CP.PCM.HP ---
Addendum entered and electronically signed by Michael Menjivar DO 05/11/17 19:13: UA results noted. Positive for trace Leukocyte Esterase bacteria and WBCs. Patient denied urinary symptoms. Urine cultures pending. ID is following patient. Will continue current antibiotic regimen. Original Note: <Michael Menjivar - Last Filed: 05/11/17 18:28> History of Present Illness - History of Present Illness History of Present Illness: Patient is a 56 year old male with a PMHx of ESRD on HD, CAD, HTN, AR x 3, DM, peripheral neuropathy, history of falls, history of CVA, AMS, and GI bleed who is being admitted for evaluation and treatment of generalized weakness and fever. As per ED chart the patients friend witnessed the patient experience a mechanical fall in which he landed on the right side and was brought to the ED for evaluation thereafter. Patient's friend is currently not present at bedside. As per ED physician, the patient missed his dialysis session yesterday. Patient states that he was experiencing right shoulder pain but does not recall experiencing a fall.Admits to nonproductive cough. Denies chills, dizziness, chest pain, SOB, abdominal pain, N/V, diarrhea, constipation. PMH: ESRD on HD on M//F , CAD, HTN, AR x 3, DM, peripheral neuropathy, history of falls, history of CVA, AMS PSH: Stents x 3, CABG, left hip surgery, Left knee surgery, Right foot partial amputation Allergies: Morphine, seafood SH: Denies recent tobacco, etoh ID: THC use in recent past, lives with roomate, ambulates with assistance of walker Medication: Please see MAR Present on Admission - Present on Admission Any Indicators Present on Admission: Yes Review of Systems - Review of Systems Review of Systems: 12 point review of systems reviewed and negative except as indicated in HPI. Past Patient History - Infectious Disease Hx of Infectious Diseases: None - Tetanus Immunizations Tetanus Immunization: Unknown - Past Medical History & Family History Past Medical History?: Yes - Past Social History Smoking Status: Never Smoked - CARDIAC Hx Cardiac Disorders: Yes (CABG x 3) Hx Hypertension: Yes - PULMONARY Hx Respiratory Disorders: Yes Other/Comment: PULMONARY EDEMA - NEUROLOGICAL HX Cerebrovascular Accident: Yes - HEENT Hx HEENT Problems: Yes (CONTACT LENSES) - RENAL Hx Renal Failure: Yes Other/Comment: Dialysis M-W-F - ENDOCRINE/METABOLIC Hx Diabetes Mellitus Type 1: Yes - HEMATOLOGICAL/ONCOLOGICAL Hx Blood Transfusions: Yes Hx Blood Transfusion Reaction: Yes - INTEGUMENTARY Hx Dermatological Problems: Yes Other/Comment: millicent hernández ext rash, pt stated "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" - MUSCULOSKELETAL/RHEUMATOLOGICAL Hx Musculoskeletal Disorders: No Hx Falls: No Other/Comment: generalized weakness - GASTROINTESTINAL Hx Gastrointestinal Disorders: No - GENITOURINARY/GYNECOLOGICAL Hx Urinary Tract Infection: Yes - PSYCHIATRIC Hx Psychophysiologic Disorder: No Hx Depression: No Hx Emotional Abuse: No Hx Physical Abuse: No Hx Substance Use: Yes (MARIJUANA) - SURGICAL HISTORY Hx Amputation: Yes (R toes) Hx Cardiac Catheterization: Yes (09/09) Hx Coronary Stent: Yes Hx Open Heart Surgery: Yes (12-26-12) - ANESTHESIA Hx Anesthesia: Yes Hx Anesthesia Reactions: No Hx Malignant Hyperthermia: No Meds Allergies/Adverse Reactions: Allergies Allergy/AdvReac Type Severity Reaction Status Date / Time Seafood Allergy ANAPHYLAXIS Uncoded 05/07/17 10:01 Physical Exam - Constitutional Appears: No Acute Distress Additional comments: lethargic but answering questions when prompted - Head Exam Head Exam: ATRAUMATIC, NORMAL INSPECTION - Eye Exam Eye Exam: EOMI, Normal appearance - ENT Exam ENT Exam: Mucous Membranes Moist - Neck Exam Neck exam: Positive for: Normal Inspection - Respiratory Exam Respiratory Exam: Rhonchi, Wheezes, NORMAL BREATHING PATTERN. absent: Accessory Muscle Use Additional comments: bibasilar crackles predominant on the left - Cardiovascular Exam Cardiovascular Exam: +S1, +S2 - GI/Abdominal Exam GI & Abdominal Exam: Soft. absent: Distended, Firm, Rebound, Rigid - Exam Additional comments: martinez in place, no urine noted in martinez tube or container as expected in ESRD patient on HD - Extremities Exam Extremities exam: Negative for: normal inspection, tenderness Additional comments: left heel healing ucler, nonbleeding, no discharge bilateral lower extremity wounds at multiple stages of healing right foot digits amputation - Neurological Exam Neurological exam: Alert, CN II-XII Intact, Oriented x3 Additional comments: Though patient is lethargic he can be aroused with touch. Patient answers questions appropriately, follows commands, and moves extremities past midline - Psychiatric Exam Psychiatric exam: Normal Affect, Normal Mood - Skin Skin Exam: Warm Results - Vital Signs Recent Vital Signs: Last Vital Signs Temp 101.5 F H 05/11/17 16:15 Pulse 100 H 05/11/17 16:32 Resp 20 05/11/17 16:32 BP 138/72 05/11/17 16:32 Pulse Ox 96 05/11/17 16:32 - Labs Result Diagrams: 05/11/17 16:00 05/11/17 16:00 Labs: Laboratory Results - last 24 hr 05/11/17 05/11/17 05/11/17 16:00 16:00 16:00 WBC 15.8 H D RBC 3.90 Hgb 10.9 L Hct 32.7 L MCV 83.8 MCH 27.9 MCHC 33.3 RDW 17.3 H Plt Count 252 MPV 10.9 Gran % 79.6 H Lymph % (Auto) 9.5 L [place] % (Auto) 10.7 H Eos % (Auto) 0.0 L Baso % (Auto) 0.2 Gran # 12.61 H Lymph # 1.5 [place] # 1.7 H Eos # 0.0 Baso # 0.03 PT 13.4 H INR 1.24 H APTT 33.2 H pO2 40 VBG pH 7.34 VBG pCO2 46.0 VBG HCO3 24.8 VBG Total CO2 26.2 VBG O2 Sat (Calc) 75.8 H VBG Base Excess -1.3 L VBG Potassium 4.7 Sodium 124.0 L Chloride 89.0 L Glucose 256 H Lactate 2.4 H FiO2 21.0 Potassium Carbon Dioxide Anion Gap BUN Creatinine Est GFR ( Amer) Est GFR (Non-Af Amer) Random Glucose Calcium Phosphorus Magnesium Total Bilirubin AST ALT Alkaline Phosphatase Total Protein Albumin Globulin Albumin/Globulin Ratio Venous Blood Potassium 4.7 05/11/17 16:00 WBC RBC Hgb Hct MCV MCH MCHC RDW Plt Count MPV Gran % Lymph % (Auto) [place] % (Auto) Eos % (Auto) Baso % (Auto) Gran # Lymph # [place] # Eos # Baso # PT INR APTT pO2 VBG pH VBG pCO2 VBG HCO3 VBG Total CO2 VBG O2 Sat (Calc) VBG Base Excess VBG Potassium Sodium 127 L Chloride 88 L Glucose Lactate FiO2 Potassium 4.6 Carbon Dioxide 24 Anion Gap 20 BUN 56 H Creatinine 8.3 H* Est GFR ( Amer) 8 Est GFR (Non-Af Amer) 7 Random Glucose 239 H Calcium 8.6 Phosphorus 3.0 Magnesium 2.3 H Total Bilirubin 1.0 AST 31 ALT 24 Alkaline Phosphatase 110 Total Protein 6.7 Albumin 3.7 Globulin 3.0 Albumin/Globulin Ratio 1.2 Venous Blood Potassium Assessment & Plan - Assessment and Plan (Free Text) Assessment: Patient is a 56 year old male with a PMHx of ESRD on HD, CAD, HTN, AR x 3, DM, peripheral neuropathy, history of falls, history of CVA, AMS, and GI bleed who is being admitted for evaluation and treatment of generalized weakness and fever. Sepsis - Details- fever, HR> 90, eukocytosis, and elevated lactate, likely source- health care associated pneumonia as patient was hospitalized within the past 90 days - CXR- Moderate cardiomegaly and moderate vascular congestion. The vascular congestion has increased. Left lower lobe consolidation indicative of potential pneumonia - vancomycin and zosyn given in ED, continue on admission renal dosage - Acetaminophen Prn for fever - Holding IVF due to ESRD on HD - Procalcitonin ordered and pending - Blood culture - Urine culture - Repeat lactate - ID consult for abx recommendation Right Shoulder Pain - right shoulder xray rule out fracture AMS - lethargic s/p fall, does not know if he hit his head, patient is arousable to touch, answers questions appropriately, follows commands, and moves extremities past midline - no neurological deficit at this time, monitor closely, will consider CT head in AM ESRD on HD, Hyponatremia, and Hypochloremia - Creatinine increased to 8.3 from 6.9 yday - Missed HD session yesterday after discharge, scheduled for dialysis today - Consult senior project architect, Dr. Garrett - Electrolyte imbalance correction with HD today HTN - Continue home losartan, metoprolol, and hydralazine with holding parameters CAD, AR x 3 - continue home isosorbide mononitrate - continue home statin DM - Hold home diabetic medications - ISS - accuchecks ACHS History of falls, history of CVA, AMS - High risk fall precautions History of Alcoholism - vitamin B1, folate supplement - ETOH serum - ativan 2mg q6 prn for agitation History of GI Bleed - continue home sucralfate, famotidine, and pantoprazole Peripheral Neuropathy - hold home pregabalin DVT PPX - heparin subq 12 Case reviewed with and plan approved by attending physician, Dr. Muir <Mraty Muir - Last Filed: 05/15/17 16:44> Results - Vital Signs Recent Vital Signs: Last Vital Signs Temp 98.4 F 05/15/17 06:00 Pulse 81 05/15/17 10:00 Resp 20 05/15/17 06:00 BP 142/75 05/15/17 06:00 Pulse Ox 95 05/15/17 06:00 - Labs Result Diagrams: 05/15/17 07:00 05/15/17 07:00 Labs: Laboratory Results - last 24 hr 05/14/17 05/14/17 05/15/17 16:30 21:38 07:00 WBC 10.6 RBC 3.29 L Hgb 8.9 L Hct 28.0 L MCV 85.1 MCH 27.1 MCHC 31.8 RDW 17.4 H Plt Count 236 MPV 11.5 H Gran % 76.6 H Lymph % (Auto) 12.2 L [place] % (Auto) 8.2 H Eos % (Auto) 2.6 Baso % (Auto) 0.4 Gran # 8.10 H Lymph # 1.3 [place] # 0.9 H Eos # 0.3 Baso # 0.04 Sodium Potassium Chloride Carbon Dioxide Anion Gap BUN Creatinine Est GFR ( Amer) Est GFR (Non-Af Amer) POC Glucose (mg/dL) 182 H 206 H Random Glucose Calcium Total Bilirubin AST ALT Alkaline Phosphatase Total Protein Albumin Globulin Albumin/Globulin Ratio Random Vancomycin 05/15/17 05/15/17 05/15/17 07:00 07:00 07:41 WBC RBC Hgb Hct MCV MCH MCHC RDW Plt Count MPV Gran % Lymph % (Auto) [place] % (Auto) Eos % (Auto) Baso % (Auto) Gran # Lymph # [place] # Eos # Baso # Sodium 132 Potassium 3.5 L Chloride 96 L Carbon Dioxide 24 Anion Gap 16 BUN 34 H Creatinine 5.7 H Est GFR ( Amer) 13 Est GFR (Non-Af Amer) 10 POC Glucose (mg/dL) 243 H Random Glucose 237 H Calcium 8.0 L Total Bilirubin 0.4 AST 17 D ALT 23 Alkaline Phosphatase 116 Total Protein 5.5 L Albumin 2.7 L Globulin 2.8 Albumin/Globulin Ratio 1.0 L Random Vancomycin 23.3 Attending/Attestation - Attestation I have personally seen and examined this patient.: Yes I have fully participated in the care of the patient.: Yes I have reviewed all pertinent clinical information: Yes Notes (Text): I have seen and examined patient at bedside. Agree with the above note with the following additions/ exceptions: Briefly this is 56 year old male with a history of ESRD on HD, CAD, HTN, AR x 3, DM, peripheral neuropathy, history of falls, history of CVA, AMS, and GI bleed who is being admitted for evaluation of generalized weakness which lead to mechanical fall on right side and also had fever most likely due to HCAP vs UTI. All cultures pending. He will be started on meropenem. One dose of vancomycin already given in ED. Right shoulder xray pending. Patient missed his HD today. Already discussed with senior project architect who will dialyze the patient today. Alcohol level was <10. Continue imdur, statin, carafate, pepcid, protonix. Start thiamine, mvi and folate. Upon discharge patient will be followed by PMGhazal Mack. Dr Marty Muir
[2017-05-11 18:21] LABS: URINE BILIRUBIN NEGATIVE (NEGATIVE); URINE BLOOD MODERATE (NEGATIVE); URINE GLUCOSE (UA) 250 mg/dL (NEGATIVE); URINE KETONE NEGATIVE (NEGATIVE); URINE LEUKOCYTE ESTERASE SMALL Leu/uL (NEGATIVE); URINE PROTEIN >=300 mg/dL (<30 mg/dL); URINE UROBILINOGEN 0.2 E.U./dL (<1 E.U./dL)
[2017-05-11 18:25] LABS: URINE APPEARANCE CLOUDY (CLEAR); URINE COLOR YELLOW (YELLOW)
[2017-05-11 18:27] LABS: URINE WBC TNTC /hpf (0-6)
[2017-05-11 18:29] LABS: URINE AMORPHOUS SEDIMENT MANY; URINE BACTERIA FEW (NEG); URINE EPITHELIAL CELLS 0 - 2 /hpf (0-5)
[2017-05-11] MEDS ORDERED: Insulin Lispro (humaLOG) MEDIUM Coverage SC SCH (22:00)
[2017-05-11 22:12] LABS: VENOUS BLOOD GAS BASE EXCESS -0.3 mmol/L (0.0-2.0); VENOUS BLOOD PH 7.48 (7.32-7.43)
[2017-05-11] MEDS ORDERED: Albuterol-Ipratrop 3 mg / 0.5 (3 ml) UD IH STA (22:28)
[2017-05-11] MEDS ORDERED: Sodium Chloride 0.9% 250 ML IV STA (22:35)
--- NOTE | 2017-05-11 22:38 | PCM.SEPTIC ---
<Olivier Kumar - Last Filed: 05/11/17 22:36> Sepsis Progress Note - Reassessment Type Date of Evaluation: 05/11/17 Time of Evaluation: 22:15 Reassessment Type: Non-invasive reassessment - Non Invasive Reassessment Were the most recent vital sign reviewed: Yes Vital Sign (Latest): Temp Pulse Resp BP Pulse Ox 100 F H 93 H 16 135/61 94 L 05/11/17 18:11 05/11/17 18:11 05/11/17 18:11 05/11/17 18:11 05/11/17 18:11 Cardiovascular: Yes: Tachycardia Respiratory: Yes: Rales (diffuse mild-moderate rales all davis), Other ( tachypnic, shallow breathing). No: Accessory Muscle Use, Rhonchi, Stridor, Wheezing, Plerual Rub Capillary Refill: Normal (Less than 2 sec) Pulses: Decreased Radial, Decreased Dorsalis Pedis (faintly palpable), Absent Posterior Tibialis (unable to palpate posterior tibials) Skin: Normal Color, Warm, Dry <Rachelle Celaya - Last Filed: 05/12/17 01:56> Sepsis Progress Note - Non Invasive Reassessment Vital Sign (Latest): Temp Pulse Resp BP Pulse Ox 100.3 F H 117 H 20 135/60 95 05/12/17 00:01 05/12/17 00:01 05/12/17 00:01 05/12/17 00:01 05/12/17 00:01 Attending/Attestation - Attestation I have personally seen and examined this patient.: Yes I have fully participated in the care of the patient.: Yes I have reviewed all pertinent clinical information, including history, physical exam and plan: Yes Notes (Text): 05/12/17 01:56 Agree with note.
[2017-05-11 22:52] LABS: BASO # 0.03 K/mm3 (0.0-2.0); BASO % 0.2 % (0.0-3.0); EOS % 0.1 % (1.5-5.0); GRAN # 11.92 (1.4-6.5); GRAN % 90.9 % (50.0-68.0); HEMATOCRIT 32.4 % (42.0-52.0); LYMPH # 0.5 (1.2-3.4); LYMPH % 3.8 % (22.0-35.0); MEAN CELL VOLUME 83.1 fl (80.0-105.0); MEAN CORPUSCULAR HEMOGLOBIN 27.9 pg (25.0-35.0); MEAN CORPUSCULAR HGB CONC 33.6 g/dl (31.0-37.0); MEAN PLATELET VOLUME 10.6 fl (7.0-11.0); MONO # 0.7 (0.1-0.6); PLATELET COUNT 213 10^3/uL (120.0-450.0); RED CELL DISTRIBUTION WIDTH 17.2 % (11.5-14.5); WHITE BLOOD COUNT 13.1 10^3/ul (4.5-11.0)
[2017-05-11] MEDS: Meropenem 500 MG in Sodium Chloride 0.9% 100 ML IVPB SCH (22:54)
[2017-05-11 23:00] LABS: ALB/GLOB RATIO 1.2 (1.1-1.8); BILIRUBIN,TOTAL 1.4 mg/dL (0.2-1.3); CALCIUM 8.5 mg/dL (8.4-10.5); MAGNESIUM 2.1 mg/dL (1.7-2.2); PHOSPHOROUS 2.6 mg/dL (2.5-4.5); POTASSIUM 4.5 mmol/L (3.6-5.0); TOTAL PROTEIN 6.6 g/dL (5.8-8.3)
[2017-05-11 23:11] LABS: TROPONIN I 0.03 ng/mL
[2017-05-11 23:16] LABS: BAND 3 % (0-2); LARGE PLATELETS PRESENT; NEUTROPHIL 92 % (50.0-70.0)
[2017-05-11 23:23] LABS: ARTERIAL BLOOD GAS HCO3 22.3 mmol/L (21-28); ARTERIAL BLOOD GAS O2 CAPACITY 14.6 mL/dl (16-24); ARTERIAL BLOOD GAS O2 CONTENT 14.4 ML/dl (15-23); ARTERIAL BLOOD GAS PH 7.51 (7.35-7.45); ARTERIAL BLOOD HGB O2 SAT 95.4 % (95.0-98.0); CARBOXYHEMOGLOBIN 2.1 % (0.5-1.5); HHB 1.5 % (0-5)
[2017-05-12] MEDS ORDERED: Piperacillin/Tazobact 2.25gm 2.25 GM/100 ML BAG IVPB SCH
[2017-05-12] MEDS ORDERED: Albuterol-Ipratrop 3 mg / 0.5 (3 ml) UD ONE (00:57)
[2017-05-12 01:57] LABS: VENOUS BLOOD PH 7.43 (7.32-7.43)
[2017-05-12] MEDS: Meropenem 500 MG in Sodium Chloride 0.9% 100 ML IVPB SCH ×3 (05:40→21:14)
[2017-05-12 07:23] LABS: BASO # 0.04 K/mm3 (0.0-2.0); BASO % 0.2 % (0.0-3.0); EOS % 0.1 % (1.5-5.0); GRAN # 14.25 (1.4-6.5); HEMATOCRIT 32.7 % (42.0-52.0); LYMPH # 1.2 (1.2-3.4); LYMPH % 6.9 % (22.0-35.0); MEAN CELL VOLUME 84.3 fl (80.0-105.0); MEAN CORPUSCULAR HEMOGLOBIN 26.8 pg (25.0-35.0); MEAN CORPUSCULAR HGB CONC 31.8 g/dl (31.0-37.0); MEAN PLATELET VOLUME 10.6 fl (7.0-11.0); MONO # 1.7 (0.1-0.6); MONO % 9.8 % (1.0-6.0); RED CELL DISTRIBUTION WIDTH 17.5 % (11.5-14.5); WHITE BLOOD COUNT 17.2 10^3/ul (4.5-11.0)
[2017-05-12 07:34] LABS: ALB/GLOB RATIO 1.1 (1.1-1.8); BILIRUBIN,TOTAL 0.8 mg/dL (0.2-1.3); CALCIUM 8.4 mg/dL (8.4-10.5); MAGNESIUM 2.4 mg/dL (1.7-2.2); PHOSPHOROUS 5.1 mg/dL (2.5-4.5); POTASSIUM 4.5 mmol/L (3.6-5.0); TOTAL PROTEIN 6.2 g/dL (5.8-8.3)
[2017-05-12] MEDS ORDERED: Barium Sulfate Susp 2.1% w/v, 2.0% w/w 450 mL Bottle PO ONE (07:54)
[2017-05-12] MEDS ORDERED: Albuterol-Ipratrop 3 mg / 0.5 (3 ml) UD IH PRN (08:00)
--- NOTE | 2017-05-12 08:47 | CARD ---
APPROVED REPORT EKG Measurement Heart [id number] ID [id number] <Conclusion> Normal sinus rhythm Possible Left atrial enlargement Inferior infarct, age undetermined Anterior infarct, age undetermined ST_T Changes.
[2017-05-12] MEDS: Albuterol-Ipratrop 3 mg / 0.5 (3 ml) UD IH SCH ×3 (09:28→19:35)
[2017-05-12] MEDS ORDERED: Enoxaparin 40 mg Syringe SC SCH (10:00)
--- NOTE | 2017-05-12 12:45 | CON ---
The patient seen earlier this morning in room #268, bed #1. CHIEF COMPLAINT: Weakness times several days. HISTORY OF PRESENT ILLNESS: This is a 56-year-old male who has a past medical history of end-stage renal disease, on hemodialysis, who was recently in the hospital a month ago with history of hypertension, coronary artery disease, myocardial infarction, cerebrovascular accident, diabetes mellitus, peripheral neuropathy. The patient has a history of ESBL klebsiella, urinary tract infection, history of coronary artery bypass graft in 2012 and the patient also has a right-sided chest wall dialysis catheter, who is ALLERGIC TO MORPHINE, SEAFOOD, admitted with weakness and the patient did have klebsiella and pseudomonas bacteremia on the last admission when the patient was discharged on 04/25/2017, and had a removal of a tunneled catheter at that time and was discharged on p.o. Cipro. On this admission, the patient is feeling weak, mild shortness of breath. He has been having fevers and chills, mild cough, occasional abdominal pain. No headaches. No dysuria or frequency. PAST MEDICAL HISTORY: Significant for end-stage renal disease, on hemodialysis. Cerebrovascular accident, diabetes mellitus, hypertension, peripheral neuropathy, coronary artery disease, myocardial infarction. PAST SURGICAL HISTORY: Significant for right-sided chest dialysis, coronary artery bypass graft in 2012. ALLERGIES: THE PATIENT IS ALLERGIC TO SEAFOOD AND MORPHINE. MEDICATIONS: At home include the patient to be on metoprolol, losartan, isosorbide, insulin, atorvastatin and hydralazine. PHYSICAL EXAMINATION GENERAL: He is in bed, weak, poor condition. VITAL SIGNS: Temperature is 98, T-max is 101.5, heart rate of 117, respiratory rate of 20, blood pressure is 126/48. HEENT: Unremarkable. NECK: Supple. HEART: Normal S1, S2. LUNGS: Decreased breath sounds. ABDOMEN: Soft, nontender. LABORATORY EXAMINATION: Reveals a white count of 17,200; hemoglobin of 10 and a platelets of 213. Chemistries reveal a BUN of 40, creatinine of 6.7, random glucose is 231, alkaline phosphatase is 140. Urinalysis, too numerous to count wbc's, few bacteria, positive leukocyte esterase, greater than 300 protein. Alcohol level is less than 10. The patient had a chest x-ray which showed no active disease. Sepsis progress note by Dr. Celaya is reviewed. Chest x-ray is negative. History and physical examination is noted. ASSESSMENT AND PLAN: This is a 56-year-old male with 17,000 white count this morning, which is slightly higher than yesterday which was 15,000 with end-stage renal disease, on hemodialysis; hypertension; cerebrovascular accident; diabetes mellitus; peripheral neuropathy; myocardial infarction with sepsis with urine as the source, must rule out bacteremia from the catheter, must also rule out GI pathology. We will start the patient on intermittent vancomycin and meropenem. We will order a CAT scan of the abdomen and pelvis. Check on the blood cultures, urine cultures, procalcitonin and we will make further recommendations by availability of initial results and we will follow closely with you. Boyd Green MD
--- NOTE | 2017-05-12 13:06 | RAD ---
PROCEDURE: Radiographs of the Right Shoulder HISTORY: Right Shoulder Pain COMPARISON: No prior. FINDINGS: BONES: Normal. No fracture. JOINTS: Normal. Glenohumeral and acromioclavicular joints preserved. No osteoarthritis. SOFT TISSUES: Normal. OTHER FINDINGS: None. IMPRESSION: Normal radiographs of the right shoulder.
--- NOTE | 2017-05-12 13:17 | CT ---
PROCEDURE: CT Abdomen and Pelvis without intravenous contrast HISTORY: fever 101 wbc 17k COMPARISON: None. TECHNIQUE: Without contrast.. Contrast Dose: Radiation dose: Total exam DLP = 843 mGy-cm. This CT exam was performed using one or more of the following dose reduction techniques: Automated exposure control, adjustment of the mA and/or kV according to patient size, and/or use of iterative reconstruction technique. FINDINGS: LOWER THORAX: There is minimal bibasilar consolidation. There is a thick-walled cavity at the right lung base anteriorly which was not present on the exam dated 04/16/2017. This is suspicious for a lung abscess. Further evaluation with complete CT of the chest is recommended. LIVER: Unremarkable. No gross lesion or ductal dilatation. GALLBLADDER AND BILE DUCTS: Unremarkable. PANCREAS: Unremarkable. No gross lesion or ductal dilatation. SPLEEN: Unremarkable. ADRENALS: Unremarkable. No mass. KIDNEYS AND URETERS: There is some faint contrast staining of both kidneys related to recent contrast injection for cardiac catheterization. There is also small amount of contrast in the bladder. VASCULATURE: Unremarkable. No aortic aneurysm. BOWEL: Unremarkable. No obstruction. No gross mural thickening. APPENDIX: Unremarkable. Normal appendix. PERITONEUM: Unremarkable. No free fluid. No free air. LYMPH NODES: Unremarkable. No enlarged lymph nodes. BLADDER: Unremarkable. REPRODUCTIVE: Unremarkable. BONES: No acute fracture. OTHER FINDINGS: None. IMPRESSION: There is minimal bibasilar consolidation. There is a thick-walled cavity at the right lung base anteriorly which was not present on the exam dated 04/16/2017. This is suspicious for a lung abscess. Further evaluation with complete CT of the chest is recommended. No acute intra-abdominal findings
--- NOTE | 2017-05-12 13:24 | CP.PCM.PN ---
<Kayleigh Martinez - Last Filed: 05/12/17 16:22> Subjective - Date & Time of Evaluation Date of Evaluation: 05/12/17 Time of Evaluation: 07:45 - Subjective Subjective: Kayleigh Martinez DO, PGY-1, Hospitalist Service Patient seen and examined at bedside. Patient complains of right chest/shoulder pain. Patient's history is unclear. He recounts the events, as he can remember for his reason for admission. He states he went up two steps, with his rollator , and when trying to get in the front door he had right chest pain and right shoulder pain and slowly "crumbled" to the ground. His friend Flex, who we tried calling, called 911 for him. At any rate, he is now here. Objective - Vital Signs/Intake and Output Vital Signs (last 24 hours): Temp Pulse Resp BP Pulse Ox 98.3 F 83 18 126/48 L 95 05/12/17 06:00 05/12/17 06:00 05/12/17 06:00 05/12/17 06:00 05/12/17 06:00 Intake and Output: 05/12/17 05/12/17 06:59 18:59 Intake Total 450 Balance 450 - Medications Medications: Current Medications Acetaminophen (Tylenol 325mg Tab) 650 mg PO Q4H PRN PRN Reason: Fever >100.4 F Last Admin: 05/11/17 22:55 Dose: 650 mg Albuterol/Ipratropium (Duoneb 3 Mg/0.5 Mg (3 Ml) Ud) 3 ml IH [id number] MARYANN Last Admin: 05/12/17 09:28 Dose: 3 ml Albuterol/Ipratropium (Duoneb 3 Mg/0.5 Mg (3 Ml) Ud) 3 ml IH Q2H PRN PRN Reason: Shortness of Breath Aspirin (Ecotrin) 81 mg PO DAILY [facility] Atorvastatin Calcium (Lipitor) 40 mg PO DIN [facility] Famotidine (Pepcid) 20 mg PO DAILY [facility] Folic Acid (Folic Acid) 1 mg PO DAILY [facility] Heparin Sodium (Porcine) (Heparin) 5,000 units SC Q12 [facility] PRN Reason: Protocol Last Admin: 05/11/17 22:55 Dose: 5,000 units Hydralazine HCl (Apresoline) 25 mg PO TID MARAYNN Meropenem 500 mg/ Sodium (Chloride) 100 mls @ 100 mls/hr IVPB Q8 [facility] PRN Reason: Protocol Stop: 05/20/17 22:01 Last Admin: 05/12/17 05:40 Dose: 100 mls/hr Insulin Human Lispro (Humalog Low) 0 units SC ACHS [facility] PRN Reason: Protocol Isosorbide Mononitrate (Imdur) 60 mg PO DAILY [facility] Lorazepam (Ativan) 2 mg IVP Q6 PRN; Protocol PRN Reason: Symptoms of alcohol withdrawl Losartan Potassium (Cozaar) 100 mg PO DAILY [facility] Metoprolol Tartrate (Lopressor) 25 mg PO BID [facility] Ondansetron HCl (Zofran Odt) 4 mg PO Q4H PRN PRN Reason: Nausea/Vomiting Pantoprazole Sodium (Protonix Ec Tab) 20 mg PO DAILY [facility] Sucralfate (Carafate Tab) 1 gm PO QID [facility] Last Admin: 05/11/17 22:56 Dose: 1 gm Thiamine HCl (Vitamin B1 Tab) 100 mg PO DAILY [facility] Vitamin B Complex/Vit C/Folic Acid (Nephro-Eleni) 1 tab PO 0800 [facility] - Labs Labs: 05/12/17 06:40 05/12/17 06:40 PT 13.4 Seconds (9.9-11.8) H 05/11/17 16:00 INR 1.24 (0.93-1.08) H 05/11/17 16:00 APTT 33.2 Seconds (23.7-30.8) H 05/11/17 16:00 Assessment and Plan - Assessment and Plan (Free Text) Assessment: Patient is a 56 year old male with a PMHx of ESRD on HD, CAD, HTN, DC x 3, DM, peripheral neuropathy, history of falls, history of CVA, AMS, and GI bleed who is being admitted for evaluation and treatment of generalized weakness and fever. Plan: Leukocytosis, etiology uncertain, with fever. - CT of abdomen/pelvis was unremarkable except for a thick-walled cavity at the right lung base anteriorly which was not present on the exam dated 04/16/2017 - CT of chest ordered - Blood and urine cultures pending - Consider sputum culture - Patient does have a permacath, could culture that if fever persist, and does have prior infections from permacath. - Aranesp can cause the patients presenting syndrome, will find out when he got it this shot last. Right Shoulder Pain - right shoulder x-ray negative for fracture or dislocation - clinically no dislocation ESRD - Patient missed HD on Monday, patient was dialyzed today. Will repeat CMP, Mg, Phos to ensure electrolytes are normal HTN - Continue home losartan, metoprolol, and hydralazine with holding parameters CAD, DC x 3 - continue home isosorbide mononitrate - continue home statin DM - Hold home diabetic medications - ISS - accuchecks ACHS History of falls, history of CVA, AMS - High risk fall precautions History of Alcoholism - vitamin B1, folate supplement - ETOH serum - ativan 2mg q6 prn for agitation History of GI Bleed - continue home sucralfate, famotidine, and pantoprazole Peripheral Neuropathy -Continue with Pregabalin DVT PPX - heparin subq 12 <Marty Muir B - Last Filed: 05/15/17 16:51> Objective - Vital Signs/Intake and Output Vital Signs (last 24 hours): Temp Pulse Resp BP Pulse Ox 104.3 F H 124 H 18 154/86 H 94 L 05/15/17 16:10 05/15/17 14:00 05/15/17 14:00 05/15/17 14:00 05/15/17 14:00 Intake and Output: 05/15/17 05/15/17 06:59 18:59 Intake Total 300 Output Total 600 Balance -300 - Medications Medications: Current Medications Acetaminophen (Tylenol 325mg Tab) 650 mg PO Q4H PRN PRN Reason: Fever >100.4 F Last Admin: 05/14/17 18:37 Dose: 650 mg Albuterol/Ipratropium (Duoneb 3 Mg/0.5 Mg (3 Ml) Ud) 3 ml IH [id number] [facility] Last Admin: 05/15/17 13:47 Dose: Not Given Albuterol/Ipratropium (Duoneb 3 Mg/0.5 Mg (3 Ml) Ud) 3 ml IH Q2H PRN PRN Reason: Shortness of Breath Aspirin (Ecotrin) 81 mg PO DAILY [facility] Last Admin: 05/14/17 09:36 Dose: 81 mg Atorvastatin Calcium (Lipitor) 40 mg PO DIN [facility] Last Admin: 05/14/17 17:41 Dose: 40 mg Daptomycin (Cubicin) 520 mg 6 mg/kg (520 mg) IV QOTHERDAY [facility] PRN Reason: Protocol Stop: 05/22/17 10:01 Famotidine (Pepcid) 20 mg PO DAILY [facility] Last Admin: 05/14/17 09:37 Dose: 20 mg Folic Acid (Folic Acid) 1 mg PO DAILY [facility] Last Admin: 05/14/17 09:37 Dose: 1 mg Heparin Sodium (Porcine) (Heparin) 5,000 units SC Q12 [facility] PRN Reason: Protocol Last Admin: 05/15/17 10:00 Dose: Not Given Hydralazine HCl (Apresoline) 25 mg PO TID [facility] Last Admin: 05/15/17 14:33 Dose: Not Given Meropenem 500 mg/ Sodium (Chloride) 100 mls @ 100 mls/hr IVPB Q8 [facility] PRN Reason: Protocol Stop: 05/20/17 22:01 Last Admin: 05/15/17 16:10 Dose: 100 mls/hr Insulin Human Lispro (Humalog Low) 0 units SC ACHS [facility] PRN Reason: Protocol Last Admin: 05/15/17 11:30 Dose: Not Given Isosorbide Mononitrate (Imdur) 60 mg PO DAILY [facility] Last Admin: 05/14/17 09:37 Dose: 60 mg Losartan Potassium (Cozaar) 100 mg PO DAILY [facility] Last Admin: 05/14/17 09:37 Dose: 100 mg Metoprolol Tartrate (Lopressor) 25 mg PO BID [facility] Last Admin: 05/15/17 10:00 Dose: Not Given Ondansetron HCl (Zofran Inj) 4 mg IVP Q4H PRN PRN Reason: Nausea/Vomiting Pantoprazole Sodium (Protonix Ec Tab) 20 mg PO DAILY [facility] Last Admin: 05/14/17 09:37 Dose: 20 mg Potassium Chloride (K-Dur 20 Meq Er Tab) 20 meq PO 0800 [facility] Last Admin: 05/15/17 08:22 Dose: 20 meq Pregabalin (Lyrica) 75 mg PO BID [facility] Last Admin: 05/15/17 11:50 Dose: Not Given Sucralfate (Carafate Tab) 1 gm PO DAILY [facility] Thiamine HCl (Vitamin B1 Tab) 100 mg PO DAILY [facility] Last Admin: 09/18/17 16:10 Dose: Not Given Vitamin B Complex/Vit C/Folic Acid (Nephro-Eleni) 1 tab PO 0800 [facility] Last Admin: 05/15/17 08:23 Dose: 1 tab - Labs Labs: 05/15/17 07:00 05/15/17 07:00 PT 13.4 Seconds (9.9-11.8) H 05/11/17 16:00 INR 1.24 (0.93-1.08) H 05/11/17 16:00 APTT 33.2 Seconds (23.7-30.8) H 05/11/17 16:00 Attending/Attestation - Attestation I have personally seen and examined this patient.: Yes I have fully participated in the care of the patient.: Yes I have reviewed all pertinent clinical information, including history, physical exam and plan: Yes Notes (Text): I have seen and examined patient at bedside. Agree with the above note with the following additions/ exceptions: Briefly this is 56 year old male with a history of ESRD on HD, CAD, HTN, DC x 3, DM-2, peripheral neuropathy, history of falls, history of CVA, AMS, and GI bleed who is being admitted for evaluation of generalized weakness which lead to mechanical fall on right side and also had fever most likely due to HCAP vs UTI. CT A/P showed suspected lung abscess. CT chest ordered. All cultures pending. Continue meropenem and intermittent vancomycin. Right shoulder xray negative. Continue imdur, statin, carafate, pepcid, protonix, thiamine, mvi and folate. Upon discharge patient will be followed by PMGhazal Mack. Dr Marty Muir
--- NOTE | 2017-05-12 14:34 | CON ---
INITIAL NEPHROLOGY CONSULTATION DATE: CHIEF COMPLAINT: "I fell." REASON FOR CONSULTATION: ESRD management. HISTORY OF PRESENT ILLNESS: The patient is a 56-year-old male with history of ESRD, on hemodialysis Monday, Monday, and [facility], last dialysis Monday. The patient missed dialysis on Monday. He also skipped dialysis yesterday. He also has a history of chronic anemia, hyperphosphatemia, secondary hyperparathyroidism, diabetes mellitus, hypertension, urinary retention, status post Macias catheter, recent PermCath infection, recent hospitalization for intractable nausea and vomiting, underwent EGD, which showed esophageal ulceration, gastroparesis, also had altered mental status and chest pain during dialysis, underwent cardiac cath, which shows his CABG status. He was discharged on Monday. The patient refused dialysis on that day and the patient states he apparently had a fall yesterday and his friend did not feel he was not doing well and he was brought to the emergency room. The patient was found to have fever and admitted for sepsis and further management. The patient at that time feels sleepy. He does report some shortness of breath. Denies any leg swelling. No urinary complaints. He denies any diarrhea at this time. REVIEW OF SYSTEMS: Overall, the patient does not feel well. Correlation of the symptoms does report fever. Denies any chills. No recent weight changes. Eyes: Denies any change in vision, watery eyes, double vision. ENT: Denies any abnormal taste, no bad breath or bad taste. Cardiovascular: Denies any chest pain, palpitations, and does report some shortness of breath. Pulmonary: Does report some shortness of breath. No cough. GI: Denies any nausea, vomiting, pain in the abdomen, constipation, bleeding or any diarrhea. Genitourinary: Does make urine, but does have a Macias catheter. Not much urine output these days though. Neurological: Denies any headache. Denies any tingling, numbness. Does report an episode of fall and loss of balance. Overall, feels weak. Dermatologic: Denies any rash, bruise, or ulcers. Psychiatric: Denies any other depression or hallucinations. Rheumatologic: Does report back and denies any joint swelling. Endocrine: Denies any tiredness. Does report feeling fatigue. Denies any heat and cold tolerance, otherwise all other negative. PHYSICAL EXAMINATION: GENERAL: The patient appears ill-appearing, not in acute distress. He is cooperative, intermittently sleepy. VITAL SIGNS: Reviewed and noted. HEENT: Head is atraumatic and normocephalic. ENT, no thrush or ulcers. Tongue is midline, otherwise pharynx was unremarkable. Eyes, bilateral pupils reactive to light. PERRLA. Extraocular movement intact. Sclera is anicteric. NECK: Supple. No lymphadenopathy. No thyromegaly or bruits. LUNGS: Bilateral vesicular sound clear at this time. Has some decreased air entry at the right base. CARDIOVASCULAR: S1 and S2 normal. No murmur. No rub or gallop. EXTREMITIES: No edema. No varicose veins. 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 NEUROLOGIC: The patient is somewhat sleepy, but oriented to time, place, and person. No focal deficits. Moving all four extremities. SKIN: Warm and dry. Normal turgor. No rashes. No ulceration. He has normal elasticity on the palpation. ABDOMEN: Soft and nontender. No organomegaly could be appreciated. No guarding or rigidity. PSYCHIATRIC: The patient has a flat affect. Normal insight. MUSCULOSKELETAL: Has some left chest wall tenderness present, otherwise digits are normal. No deformity. Had toe amputation. GENITOURINARY: Kidney and bladder not palpable. The patient has a Macias catheter, and the patient has a PermCath. PAST MEDICAL HISTORY: Notable for diabetes, hypertension, CAD, and CABG. PAST SURGICAL HISTORY: Notable for CABG and EGD. SOCIAL HISTORY: Denies any smoking or alcohol at this time. History of marijuana and alcohol in the past. ALLERGIES: TO SEAFOOD. FAMILY HISTORY: No history of CKD. The patient was febrile in the emergency room when he came in, he was 101.5, which is 98.3, blood pressure 126/48, saturation is well maintained, respirations 18 and heart rate is 83. LABORATORY DATA: Current workup shows hemoglobin 10.4, white blood cell count is 17.2, and platelet count is 213. Sodium is 136, potassium 4.5, creatinine 6.7, glucose 58, phosphorus 5.1, magnesium 2.4, and albumin is 3.3. UA shows 3+ protein with glucose and blood, otherwise more leukocytes. Blood alcohol level was negative. The patient had a chest x-ray done, which shows pulmonary congestion. ASSESSMENT: 1. Critical. 2. Sepsis, etiology source need to be determined. 3. Diabetic chronic renal disease, hypertensive chronic kidney disease. Endstage renal disease dependent on hemodialysis by PermCath. 4. Anemia, hyperphosphatemia, secondary hyperparathyroidism, hypertension. 5. Esophageal ulceration, gastroparesis, coronary artery disease status post coronary artery bypass graft. RECOMMENDATIONS: The patient had underwent dialysis yesterday. The patient will be planned for routine dialysis today. Continue Nephro-Eleni one tablet per day. His hemoglobin is stable. Continue the Aranesp weekly. His phosphorus level is also acceptable. Continue with Hectorol dialysis, he is on 1 mcg; his last PTH is 463. Blood pressure is under good control at this time. Continue with the glycemic control, dialysis consisting diet. Management for sepsis as per the primary team. Dose meds for his GFR less than 10. Avoid Fleet enema/magnesium based laxative. Continue with the PPI. Discontinue Macias catheter as the patient is not picking much urine. Thank you for the consultation. Please call if any questions. Sancho Garrett MD
[2017-05-12] MEDS ORDERED: Metoprolol 1 mg/ml Inj IVP ONE (15:00)
[2017-05-12] MEDS: Insulin Lispro (humaLOG) LOW Coverage SC SCH ×3 (16:27→22:54)
[2017-05-12] MEDS: Multivitamin Vitamin B Complex (Nephro-Vite) Tab PO SCH (16:29)
[2017-05-12] MEDS ORDERED: Oxycodone/Acetaminophen 5/325 mg Tab PO ONE (16:45)
--- NOTE | 2017-05-12 16:53 | CARD ---
APPROVED REPORT EKG Measurement Heart [id number] <Conclusion> Sinus tachycardia Possible Left atrial enlargement Septal infarct, age undetermined Inferior infarct, age undetermined LVH.
[2017-05-12 17:08] LABS: BASO # 0.03 K/mm3 (0.0-2.0); BASO % 0.2 % (0.0-3.0); EOS # 0.1 (0.0-0.7); EOS % 0.4 % (1.5-5.0); GRAN # 12.07 (1.4-6.5); GRAN % 89.7 % (50.0-68.0); HEMATOCRIT 31.6 % (42.0-52.0); LYMPH # 0.6 (1.2-3.4); LYMPH % 4.2 % (22.0-35.0); MEAN CORPUSCULAR HEMOGLOBIN 27.9 pg (25.0-35.0); MEAN CORPUSCULAR HGB CONC 33.2 g/dl (31.0-37.0); MEAN PLATELET VOLUME 10.8 fl (7.0-11.0); MONO # 0.7 (0.1-0.6); MONO % 5.5 % (1.0-6.0); PLATELET COUNT 216 10^3/uL (120.0-450.0); RED CELL DISTRIBUTION WIDTH 17.4 % (11.5-14.5); WHITE BLOOD COUNT 13.5 10^3/ul (4.5-11.0)
[2017-05-12] MEDS: Pantoprazole 20 mg EC Tab PO SCH (17:08)
[2017-05-12 17:20] LABS: ALB/GLOB RATIO 1.1 (1.1-1.8); BILIRUBIN,TOTAL 0.8 mg/dL (0.2-1.3); CALCIUM 8.6 mg/dL (8.4-10.5); MAGNESIUM 2.1 mg/dL (1.7-2.2); PHOSPHOROUS 2.7 mg/dL (2.5-4.5); TOTAL PROTEIN 6.3 g/dL (5.8-8.3)
[2017-05-12] MEDS ORDERED: Morphine 15 mg SR Tab PO SCH (22:00)
[2017-05-13 00:09] LABS: BAND 6 % (0-2); HYPOCHROMIA SLIGHT; NEUTROPHIL 86 % (50.0-70.0); PLATELET ESTIMATE NORMAL (NORMAL); POIKILOCYTOSIS SLIGHT
[2017-05-13 00:10] LABS: LARGE PLATELETS PRESENT; OVALOCYTES 2+
[2017-05-13] MEDS: Albuterol-Ipratrop 3 mg / 0.5 (3 ml) UD IH SCH ×3 (01:36→20:54)
[2017-05-13] MEDS: Meropenem 500 MG in Sodium Chloride 0.9% 100 ML IVPB SCH ×3 (05:16→22:16)
[2017-05-13 07:12] LABS: BILIRUBIN,TOTAL 0.7 mg/dL (0.2-1.3); CALCIUM 8.3 mg/dL (8.4-10.5); POTASSIUM 3.8 mmol/L (3.6-5.0); TOTAL PROTEIN 6.1 g/dL (5.8-8.3)
[2017-05-13 07:14] LABS: BASO # 0.04 K/mm3 (0.0-2.0); BASO % 0.3 % (0.0-3.0); EOS # 0.3 (0.0-0.7); EOS % 1.7 % (1.5-5.0); GRAN # 11.9 (1.4-6.5); GRAN % 79.6 % (50.0-68.0); HEMATOCRIT 31.7 % (42.0-52.0); LYMPH # 1.4 (1.2-3.4); LYMPH % 9.4 % (22.0-35.0); MEAN CELL VOLUME 85.2 fl (80.0-105.0); MEAN CORPUSCULAR HEMOGLOBIN 26.9 pg (25.0-35.0); MEAN CORPUSCULAR HGB CONC 31.5 g/dl (31.0-37.0); MEAN PLATELET VOLUME 11.8 fl (7.0-11.0); MONO # 1.4 (0.1-0.6); RED CELL DISTRIBUTION WIDTH 17.7 % (11.5-14.5); WHITE BLOOD COUNT 14.9 10^3/ul (4.5-11.0)
[2017-05-13] MEDS: Insulin Lispro (humaLOG) LOW Coverage SC SCH ×3 (08:28→17:30)
[2017-05-13] MEDS: Multivitamin Vitamin B Complex (Nephro-Vite) Tab PO SCH (08:28)
[2017-05-13] MEDS ORDERED: Vancomycin 1gm in NS 250ml 1 GM/250 ML BAG IVPB STA (09:26)
[2017-05-13 09:27] LABS: MAGNESIUM 2.5 mg/dL (1.7-2.2); PHOSPHOROUS 4.3 mg/dL (2.5-4.5)
[2017-05-13] MEDS ORDERED: Iron Sucrose 100 mg/5 ml Inj IVP ONE (10:00)
[2017-05-13] MEDS ORDERED: Doxercalciferol 4 mcg/2 ml Inj IVP ONE (10:00)
--- NOTE | 2017-05-13 11:16 | CT ---
PROCEDURE: CT chest dated 05/13/2017 HISTORY: Evaluate lung abscess seen on recent CT scan abdomen and pelvis COMPARISON: Comparison made with prior CT scan abdomen pelvis 05/12/2017 which imaged both lung bases. TECHNIQUE: Contiguous helical/transaxial images were obtained through the chest without intravenous contrast enhancement. Sagittal and coronal reconstructions were performed. Radiation dose (DLP): 619.54 mGy-cm. This CT exam was performed using one or more of the following dose reduction techniques: Automated exposure control, adjustment of the mA and/or kV according to patient size, and/or use of iterative reconstruction technique. FINDINGS: LUNGS: The current study reveals multiple cysts varying sized round and elliptical shaped nodular opacities scattered throughout the upper and lower lobes bilaterally. At least 3 of these nodular opacities which abut the pleural surfaces exhibit central cavitations in thick-walled appearance. These lesions are located in the posterior aspect left lung apex (2.5 x 1.9 cm), anteromedial aspect right left upper lobe (1.75 x 2.05 cm) and right middle lobe (2.9 x 2.85 cm) the latter of which was seen on prior CT scan. Additionally, there is a smaller nodular opacity adjacent to the middle lobe focus with a tiny central cavitation as well. Collectively the findings probably represent septic emboli of with central necrosis on and/or cystic degeneration -small abscess collections. The possibility of a necrotic metastasis cannot be completely excluded. Clinical correlation is recommended. Bilateral effusions and bibasilar atelectasis right greater than left. MEDIASTINUM: Sternotomy wires and CABG clips. Heart remains enlarged. . In situ right IJ dialysis catheter with tips in the right ventricle. Ascending thoracic aorta measures approximate 3.69 cm and descending thoracic aorta measures approximately 2.82 cm. Pulmonary trunk measures approximately 3.36 cm. Central airways are midline and patent. No endoluminal lesions seen. Multiple small nonspecific mediastinal lymph nodes are present. Evaluation for hilar adenopathy is limited due to the lack of circulating intravenous contrast material. PLEURA: As above. No evidence of pneumothorax BONES: Minor multilevel degenerative spondylosis of the thoracic spine. No acute compression fractures. Tiny sclerotic focus left posterior inferior T9 segment nonspecific. This could represent a small osteoma or bone island. Clinically correlate to exclude sclerotic metastasis. UPPER ABDOMEN: Status post cholecystectomy with metallic clips in the gallbladder fossa. OTHER FINDINGS: None. IMPRESSION: There are multiple varying sized round and elliptical shaped nodular opacities scattered throughout the upper and lower lobes bilaterally likely representing septic emboli. . . There are at least 4 these foci that exhibit thick-walled appearance and central cavitation or necrosis degeneration too small abscess collections. The possibility of necrotic metastasis not excluded. Clinical correlation recommended. Small bilateral effusions and bibasilar atelectasis right greater than left. Cardiomegaly. In situ dialysis catheter with tips in the right ventricle. . Multiple small nonspecific mediastinal lymph nodes. Status post cholecystectomy. See above discussion for additional details and findings. These findings were discussed with Dr. Muir at approximately 11 a.m. with written down and read back verification.
--- NOTE | 2017-05-13 11:54 | PN ---
DATE: SUBJECTIVE: The patient is in bed in no acute distress, seen earlier. He states that he is feeling better. He has intermittent chest pain on and off. PHYSICAL EXAMINATION: VITAL SIGNS: The patient's temperature is down with a temperature of 97, blood pressure is 140/60, and respiratory rate 20, heart rate of 93. HEENT: Unremarkable. NECK: Supple. LUNGS: Decreased breath sounds. HEART: Normal S1 and S2. ABDOMEN: Soft, nontender. LABORATORY DATA: Reveals a white count of 14,900, hemoglobin of 10, and platelets of 225. BUN of 37, creatinine of 6.2, and alkaline phosphatase is 128. Urinalysis revealed too numerous to count WBCs. Alcohol level was noted to be less than 10. Blood cultures are no growth at 24 hours. Urine cultures are gram-positive cocci greater than 100,000 colonies. The patient had a CAT scan of the abdomen and pelvis, which shows minimal bibasilar consolidation, thick walled cavity at the right lung base anteriorly, which is not present on the exam from 04/16/2017, suspicious for a lung abscess. The patient also had a shoulder x-ray, which was negative. Review of orders reveals the patient to be on meropenem. CAT scan of the chest has been ordered. ASSESSMENT AND PLAN: This is a 56-year-old male with past medical history of end-stage renal disease on hemodialysis, recently discharged a month ago from the hospital, history of hypertension, coronary artery disease, myocardial infarction, cerebrovascular accident, diabetes mellitus, history of extended-spectrum beta-lactamase, urinary tract infection, history of coronary bypass graft in 2012, right-sided chest wall dialysis catheter, multiple ALLERGIES TO SEAFOOD, who was admitted now and the patient is having chest pain, intermittently leukocytosis and with sepsis with lung abscess and a gram-positive cocci in the urine, on meropenem, waiting for CAT scan of the chest. Meropenem should be adequate to cover most anaerobic organisms in addition to gram-positive cocci and a gram-negative bacteria. The patient did receive dose of vancomycin. The blood cultures are negative, methicillin-resistant Staphylococcus aureus lung abscess less likely. We will give another dose of vancomycin, pending CAT scan of the chest, here for pulmonary evaluation and consider Dr. Yousif Cortés for possible CAT scan directed aspirate of the lung abscess. Of note, the patient did have negative troponin because of the chest x-ray and did have an EKG, which is normal sinus rhythm with a left atrial enlargement of left inferior infarct and anterior infarct read by Dr. Shine. Boyd Green MD
[2017-05-13] MEDS: Pantoprazole 20 mg EC Tab PO SCH (15:14)
--- NOTE | 2017-05-13 15:19 | CP.PCM.PN ---
<ADEEL HARRIS - Last Filed: 05/13/17 21:17> Subjective - Date & Time of Evaluation Date of Evaluation: 05/13/17 Time of Evaluation: 09:30 - Subjective Subjective: patient was seen and examined at bedside. complaining of R shoulder pain not a/ w movement but is with breathing. denies other complaints, weakness, cp, sob, fevers,chills, cough. Objective - Vital Signs/Intake and Output Vital Signs (last 24 hours): Temp Pulse Resp BP Pulse Ox 97.9 F 93 H 20 148/69 92 L 05/13/17 06:00 05/13/17 10:00 05/13/17 06:00 05/13/17 06:00 05/13/17 06:00 Intake and Output: 05/13/17 05/13/17 06:59 18:59 Intake Total 120 200 Output Total 0 Balance 120 200 - Medications Medications: Current Medications Acetaminophen (Tylenol 325mg Tab) 650 mg PO Q4H PRN PRN Reason: Fever >100.4 F Last Admin: 05/12/17 14:40 Dose: 650 mg Albuterol/Ipratropium (Duoneb 3 Mg/0.5 Mg (3 Ml) Ud) 3 ml IH [id number] [facility] Last Admin: 05/13/17 07:43 Dose: 3 ml Albuterol/Ipratropium (Duoneb 3 Mg/0.5 Mg (3 Ml) Ud) 3 ml IH Q2H PRN PRN Reason: Shortness of Breath Aspirin (Ecotrin) 81 mg PO DAILY [facility] Last Admin: 05/12/17 16:29 Dose: 81 mg Atorvastatin Calcium (Lipitor) 40 mg PO DIN [facility] Last Admin: 05/12/17 17:08 Dose: 40 mg Famotidine (Pepcid) 20 mg PO DAILY [facility] Last Admin: 05/12/17 16:29 Dose: 20 mg Folic Acid (Folic Acid) 1 mg PO DAILY [facility] Last Admin: 05/12/17 16:29 Dose: 1 mg Heparin Sodium (Porcine) (Heparin) 5,000 units SC Q12 [facility] PRN Reason: Protocol Last Admin: 05/13/17 10:00 Dose: Not Given Hydralazine HCl (Apresoline) 25 mg PO TID [facility] Last Admin: 05/13/17 10:00 Dose: Not Given Meropenem 500 mg/ Sodium (Chloride) 100 mls @ 100 mls/hr IVPB Q8 [facility] PRN Reason: Protocol Stop: 05/20/17 22:01 Last Admin: 05/13/17 05:16 Dose: 100 mls/hr Insulin Human Lispro (Humalog Low) 0 units SC ACHS [facility] PRN Reason: Protocol Last Admin: 05/13/17 11:30 Dose: Not Given Isosorbide Mononitrate (Imdur) 60 mg PO DAILY [facility] Last Admin: 05/12/17 16:29 Dose: 60 mg Losartan Potassium (Cozaar) 100 mg PO DAILY [facility] Last Admin: 05/12/17 16:34 Dose: 100 mg Metoprolol Tartrate (Lopressor) 25 mg PO BID [facility] Last Admin: 05/13/17 10:00 Dose: Not Given Ondansetron HCl (Zofran Inj) 4 mg IVP Q4H PRN PRN Reason: Nausea/Vomiting Pantoprazole Sodium (Protonix Ec Tab) 20 mg PO DAILY [facility] Last Admin: 05/12/17 17:08 Dose: 20 mg Pregabalin (Lyrica) 75 mg PO BID [facility] Last Admin: 05/13/17 10:00 Dose: Not Given Sucralfate (Carafate Tab) 1 gm PO QID [facility] Last Admin: 05/13/17 10:00 Dose: Not Given Thiamine HCl (Vitamin B1 Tab) 100 mg PO DAILY [facility] Last Admin: 05/12/17 16:29 Dose: 100 mg Vitamin B Complex/Vit C/Folic Acid (Nephro-Eleni) 1 tab PO 0800 [facility] Last Admin: 05/13/17 08:28 Dose: 1 tab - Labs Labs: 05/13/17 06:47 05/13/17 06:47 PT 13.4 Seconds (9.9-11.8) H 05/11/17 16:00 INR 1.24 (0.93-1.08) H 05/11/17 16:00 APTT 33.2 Seconds (23.7-30.8) H 05/11/17 16:00 - Constitutional Appears: Well, No Acute Distress, Unkempt - Head Exam Head Exam: NORMAL INSPECTION - Eye Exam Eye Exam: EOMI, Normal appearance, PERRL - ENT Exam ENT Exam: Mucous Membranes Moist - Neck Exam Neck Exam: Normal Inspection - Respiratory Exam Respiratory Exam: Rales, NORMAL BREATHING PATTERN. absent: Accessory Muscle Use , Respiratory Distress - Cardiovascular Exam Cardiovascular Exam: RRR, +S1, +S2 - GI/Abdominal Exam GI & Abdominal Exam: Soft, Normal Bowel Sounds. absent: Distended, Tenderness - Extremities Exam Extremities Exam: Full ROM, Normal Inspection. absent: Pedal Edema - Back Exam Back Exam: NORMAL INSPECTION - Neurological Exam Neurological Exam: Alert, Awake Neuro motor strength exam: Left Upper Extremity: 5, Right Upper Extremity: 5, Left Lower Extremity: 5, Right Lower Extremity: 5 - Psychiatric Exam Psychiatric exam: Normal Affect, Normal Mood - Skin Skin Exam: Normal Color, Warm Assessment and Plan - Assessment and Plan (Free Text) Assessment: 56 year old male with a PMHx of ESRD on HD, CAD, HTN, OK x 3, DM, peripheral neuropathy, history of falls, history of CVA, AMS, and GI bleed who is being admitted for evaluation and treatment of generalized weakness and fever Plan: 1. Sepsis (temp, and HR) - CT of abdomen/pelvis was unremarkable except for a thick-walled cavity at the right lung base anteriorly which was not present on the exam dated 04/16/2017 - CT chest showed possible septic emboli vs abscess collections vs necrotic mets , mediastinal lymph nodes - pulm consulted, rec defer bronchoscopy, f/u cxs, broad spectrum abx and repeat CT before d/c - on meropenem - Tylenol PRN - Duonebs tx per pulm rec - ucx + Gram pos cocci - bcx negative after 48hrs - WBC trending down - f/u echo to r/o endocarditis 2. R shoulder pain - XRay was insignificant - tylenol prn 3. KITA on CKD - pt to be dialyzed - unclear if dialyzed yesterday or not - monitor electrolytes - encourage hydration 4. Hx HTN - Continue home losartan, metoprolol, and hydralazine with holding parameters - continue home isosorbide mononitrate - continue home statin 5. Hx DM2 - ISS - accuchecks ACHS 6. History of falls, history of CVA, AMS - High risk fall precautions - lactate level decreasing 7. History of Alcoholism - thiamine, folic acid, MV - ativan prn 8. History of GI Bleed - continue home sucralfate, famotidine, and pantoprazole HHD Heparin/Pepcid patient was seen, evaluated and discussed with attending, Dr. Wood Harris PGY1 <Marty Muir - Last Filed: 05/15/17 17:04> Objective - Vital Signs/Intake and Output Vital Signs (last 24 hours): Temp Pulse Resp BP Pulse Ox 104.3 F H 124 H 18 154/86 H 94 L 05/15/17 16:10 05/15/17 14:00 05/15/17 14:00 05/15/17 14:00 05/15/17 14:00 Intake and Output: 05/15/17 05/15/17 06:59 18:59 Intake Total 300 Output Total 600 Balance -300 - Medications Medications: Current Medications Acetaminophen (Tylenol 325mg Tab) 650 mg PO Q4H PRN PRN Reason: Fever >100.4 F Last Admin: 05/14/17 18:37 Dose: 650 mg Albuterol/Ipratropium (Duoneb 3 Mg/0.5 Mg (3 Ml) Ud) 3 ml IH [id number] [facility] Last Admin: 05/15/17 13:47 Dose: Not Given Albuterol/Ipratropium (Duoneb 3 Mg/0.5 Mg (3 Ml) Ud) 3 ml IH Q2H PRN PRN Reason: Shortness of Breath Aspirin (Ecotrin) 81 mg PO DAILY [facility] Last Admin: 05/14/17 09:36 Dose: 81 mg Atorvastatin Calcium (Lipitor) 40 mg PO DIN [facility] Last Admin: 05/14/17 17:41 Dose: 40 mg Daptomycin (Cubicin) 520 mg 6 mg/kg (520 mg) IV QOTHERDAY [facility] PRN Reason: Protocol Stop: 05/22/17 10:01 Famotidine (Pepcid) 20 mg PO DAILY [facility] Last Admin: 05/14/17 09:37 Dose: 20 mg Folic Acid (Folic Acid) 1 mg PO DAILY [facility] Last Admin: 05/14/17 09:37 Dose: 1 mg Heparin Sodium (Porcine) (Heparin) 5,000 units SC Q12 [facility] PRN Reason: Protocol Last Admin: 05/15/17 10:00 Dose: Not Given Hydralazine HCl (Apresoline) 25 mg PO TID [facility] Last Admin: 05/15/17 14:33 Dose: Not Given Meropenem 500 mg/ Sodium (Chloride) 100 mls @ 100 mls/hr IVPB Q8 [facility] PRN Reason: Protocol Stop: 05/20/17 22:01 Last Admin: 05/15/17 16:10 Dose: 100 mls/hr Insulin Human Lispro (Humalog Low) 0 units SC ACHS [facility] PRN Reason: Protocol Last Admin: 05/15/17 11:30 Dose: Not Given Isosorbide Mononitrate (Imdur) 60 mg PO DAILY [facility] Last Admin: 05/14/17 09:37 Dose: 60 mg Losartan Potassium (Cozaar) 100 mg PO DAILY [facility] Last Admin: 05/14/17 09:37 Dose: 100 mg Metoprolol Tartrate (Lopressor) 25 mg PO BID [facility] Last Admin: 05/15/17 10:00 Dose: Not Given Ondansetron HCl (Zofran Inj) 4 mg IVP Q4H PRN PRN Reason: Nausea/Vomiting Pantoprazole Sodium (Protonix Ec Tab) 20 mg PO DAILY [facility] Last Admin: 05/14/17 09:37 Dose: 20 mg Potassium Chloride (K-Dur 20 Meq Er Tab) 20 meq PO 0800 [facility] Last Admin: 05/15/17 08:22 Dose: 20 meq Pregabalin (Lyrica) 75 mg PO BID [facility] Last Admin: 05/15/17 11:50 Dose: Not Given Sucralfate (Carafate Tab) 1 gm PO DAILY [facility] Thiamine HCl (Vitamin B1 Tab) 100 mg PO DAILY [facility] Last Admin: 05/15/17 16:10 Dose: Not Given Vitamin B Complex/Vit C/Folic Acid (Nephro-Eleni) 1 tab PO 0800 [facility] Last Admin: 05/15/17 08:23 Dose: 1 tab - Labs Labs: 05/15/17 07:00 05/15/17 07:00 PT 13.4 Seconds (9.9-11.8) H 05/11/17 16:00 INR 1.24 (0.93-1.08) H 05/11/17 16:00 APTT 33.2 Seconds (23.7-30.8) H 05/11/17 16:00 Attending/Attestation - Attestation I have personally seen and examined this patient.: Yes I have fully participated in the care of the patient.: Yes I have reviewed all pertinent clinical information, including history, physical exam and plan: Yes Notes (Text): I have seen and examined patient at bedside. Agree with the above note with the following additions/ exceptions: Briefly this is 56 year old male with a history of ESRD on HD, CAD, HTN, OK x 3, DM-2, peripheral neuropathy, history of falls, history of CVA, AMS, and GI bleed who is being admitted for evaluation of generalized weakness which lead to mechanical fall on right side and also had fever most likely due to HCAP vs UTI. CT chest showed possible septic emboli vs abscess collections vs necrotic mets, mediastinal lymph nodes. Librarian Assistant recommended to continue abx for now and repeat CT before discharge. Echo ordered. Cardiology consult requested. Urine culture is growing GPC. Blood cultures are negative so far. Continue meropenem and intermittent vancomycin. Continue imdur, statin, carafate, pepcid, protonix, thiamine, mvi and folate. Upon discharge patient will be followed by PMGhazal Mack. Dr Marty Muir
[2017-05-13 16:50] LABS: VENOUS BLOOD GAS BASE EXCESS 2.7 mmol/L (0.0-2.0)
--- NOTE | 2017-05-13 18:12 | CP.PCM.CON ---
History of Present Illness - History of Present Illness History of Present Illness: Patient is 56yo male with PMhx of ESRD on HD, CAD, HTN, DM, neuropathy, CVA, presented for generalized weakness, fever, and mechanical fall. Pt reports he had R shoulder pain. Denies fever, chills, cough, chest pain, sob, palpitations , NEVAREZ, dizziness. CT chest demonstrated multiple cysts of varying size/nodular opacities throughout the upper and lower lobes bilaterally with cantral cavitations in thick walled appearance. Cultures thus far are negative. Patient currnetly on Merrem, Vanco IV PMH: ESRD on HD on M/W/F , CAD, HTN, PR x 3, DM, peripheral neuropathy, history of falls, history of CVA, AMS PSH: Stents x 3, CABG, left hip surgery, Left knee surgery, Right foot partial amputation Allergies: Morphine, seafood SH: Denies recent tobacco, etoh Medication: Please see MAR Review of Systems - Review of Systems Review of Systems: as per hpi Past Patient History - Infectious Disease Hx of Infectious Diseases: None - Tetanus Immunizations Tetanus Immunization: Unknown - Past Medical History & Family History Past Medical History?: Yes - Past Social History Smoking Status: Never Smoked - CARDIAC Hx Cardiac Disorders: Yes (CABG x 3) Hx Hypertension: Yes - PULMONARY Hx Respiratory Disorders: Yes Other/Comment: PULMONARY EDEMA - NEUROLOGICAL HX Cerebrovascular Accident: Yes - HEENT Hx HEENT Problems: Yes (CONTACT LENSES) - RENAL Date of Last Dialysis Treatment: 05/11/17 Hx Renal Failure: Yes Other/Comment: Dialysis M-W-F - ENDOCRINE/METABOLIC Hx Diabetes Mellitus Type 1: Yes - HEMATOLOGICAL/ONCOLOGICAL Hx Blood Disorders: No - INTEGUMENTARY Hx Dermatological Problems: Yes Other/Comment: righty lower ext rash, pt stated "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" - MUSCULOSKELETAL/RHEUMATOLOGICAL Hx Musculoskeletal Disorders: No Hx Falls: Yes Other/Comment: generalized weakness - GASTROINTESTINAL Hx Gastrointestinal Disorders: No - GENITOURINARY/GYNECOLOGICAL Hx Urinary Tract Infection: Yes - PSYCHIATRIC Hx Psychophysiologic Disorder: No Hx Depression: No Hx Emotional Abuse: No Hx Physical Abuse: No Hx Substance Use: Yes - SURGICAL HISTORY Hx Amputation: Yes (R toes) Hx Cardiac Catheterization: Yes (09/09) Hx Coronary Stent: Yes Hx Open Heart Surgery: Yes (12-26-12) - ANESTHESIA Hx Anesthesia: Yes Hx Anesthesia Reactions: No Hx Malignant Hyperthermia: No Meds Allergies/Adverse Reactions: Allergies Allergy/AdvReac Type Severity Reaction Status Date / Time Seafood Allergy ANAPHYLAXIS Uncoded 05/07/17 10:01 - Medications Medications: Current Medications Acetaminophen (Tylenol 325mg Tab) 650 mg PO Q4H PRN PRN Reason: Fever >100.4 F Last Admin: 05/13/17 15:14 Dose: 650 mg Albuterol/Ipratropium (Duoneb 3 Mg/0.5 Mg (3 Ml) Ud) 3 ml IH [id number] [facility] Last Admin: 05/13/17 07:43 Dose: 3 ml Albuterol/Ipratropium (Duoneb 3 Mg/0.5 Mg (3 Ml) Ud) 3 ml IH Q2H PRN PRN Reason: Shortness of Breath Aspirin (Ecotrin) 81 mg PO DAILY [facility] Last Admin: 05/13/17 15:12 Dose: 81 mg Atorvastatin Calcium (Lipitor) 40 mg PO DIN [facility] Last Admin: 05/12/17 17:08 Dose: 40 mg Famotidine (Pepcid) 20 mg PO DAILY [facility] Last Admin: 05/13/17 15:14 Dose: 20 mg Folic Acid (Folic Acid) 1 mg PO DAILY [facility] Last Admin: 05/13/17 15:13 Dose: 1 mg Heparin Sodium (Porcine) (Heparin) 5,000 units SC Q12 [facility] PRN Reason: Protocol Last Admin: 05/13/17 10:00 Dose: Not Given Hydralazine HCl (Apresoline) 25 mg PO TID [facility] Last Admin: 05/13/17 15:11 Dose: 25 mg Meropenem 500 mg/ Sodium (Chloride) 100 mls @ 100 mls/hr IVPB Q8 [facility] PRN Reason: Protocol Stop: 05/20/17 22:01 Last Admin: 05/13/17 15:13 Dose: 100 mls/hr Insulin Human Lispro (Humalog Low) 0 units SC ACHS [facility] PRN Reason: Protocol Last Admin: 05/13/17 11:30 Dose: Not Given Isosorbide Mononitrate (Imdur) 60 mg PO DAILY [facility] Last Admin: 05/13/17 15:13 Dose: 60 mg Losartan Potassium (Cozaar) 100 mg PO DAILY [facility] Last Admin: 05/13/17 15:12 Dose: 100 mg Metoprolol Tartrate (Lopressor) 25 mg PO BID [facility] Last Admin: 05/13/17 10:00 Dose: Not Given Ondansetron HCl (Zofran Inj) 4 mg IVP Q4H PRN PRN Reason: Nausea/Vomiting Pantoprazole Sodium (Protonix Ec Tab) 20 mg PO DAILY [facility] Last Admin: 05/13/17 15:14 Dose: 20 mg Pregabalin (Lyrica) 75 mg PO BID [facility] Last Admin: 05/13/17 10:00 Dose: Not Given Sucralfate (Carafate Tab) 1 gm PO QID [facility] Last Admin: 05/13/17 15:12 Dose: 1 gm Thiamine HCl (Vitamin B1 Tab) 100 mg PO DAILY [facility] Last Admin: 05/13/17 15:15 Dose: 100 mg Vitamin B Complex/Vit C/Folic Acid (Nephro-Eleni) 1 tab PO 0800 [facility] Last Admin: 05/13/17 08:28 Dose: 1 tab Physical Exam - Constitutional Appears: Well, Non-toxic, No Acute Distress - Head Exam Head Exam: NORMAL INSPECTION - Eye Exam Eye Exam: EOMI, Normal appearance - ENT Exam ENT Exam: Mucous Membranes Moist - Neck Exam Neck exam: Positive for: Normal Inspection - Respiratory Exam Respiratory Exam: Clear to Auscultation Bilateral, NORMAL BREATHING PATTERN - Cardiovascular Exam Cardiovascular Exam: REGULAR RHYTHM, +S1, +S2 - GI/Abdominal Exam GI & Abdominal Exam: Normal Bowel Sounds, Soft - Extremities Exam Extremities exam: Positive for: normal inspection - Neurological Exam Neurological exam: Alert - Skin Skin Exam: Normal Color Results - Vital Signs Recent Vital Signs: Last Vital Signs Temp 100.7 F H 05/13/17 17:21 Pulse 108 H 05/13/17 17:21 Resp 20 05/13/17 17:21 BP 138/73 05/13/17 17:21 Pulse Ox 92 L 05/13/17 15:40 - Labs Result Diagrams: 05/13/17 06:47 05/13/17 06:47 Labs: Laboratory Results - last 24 hr 05/12/17 05/12/17 05/13/17 17:04 21:33 06:47 WBC 14.9 H RBC 3.72 Hgb 10.0 L Hct 31.7 L MCV 85.2 MCH 26.9 MCHC 31.5 RDW 17.7 H Plt Count 225 MPV 11.8 H Gran % 79.6 H Lymph % (Auto) 9.4 L [place] % (Auto) 9.0 H Eos % (Auto) 1.7 Baso % (Auto) 0.3 Gran # 11.90 H Lymph # 1.4 [place] # 1.4 H Eos # 0.3 Baso # 0.04 Neutrophils % (Manual) 86 H Band Neutrophils % 6 H Lymphocytes % (Manual) 7 L Monocytes % (Manual) 1 Platelet Evaluation Normal Large Platelets Present Hypochromasia Slight Poikilocytosis (manual Slight Ovalocytes 2+ Rouleaux 1+ Schistocytes Slight ESR pO2 VBG pH VBG pCO2 VBG HCO3 VBG Total CO2 VBG O2 Sat (Calc) VBG Base Excess VBG Potassium Glucose Lactate FiO2 Sodium Potassium Chloride Carbon Dioxide Anion Gap BUN Creatinine Est GFR ( Amer) Est GFR (Non-Af Amer) POC Glucose (mg/dL) 223 H Random Glucose Calcium Phosphorus Magnesium Total Bilirubin AST ALT Alkaline Phosphatase Total Protein Albumin Globulin Albumin/Globulin Ratio Venous Blood Potassium 05/13/17 05/13/17 05/13/17 06:47 07:27 13:31 WBC RBC Hgb Hct MCV MCH MCHC RDW Plt Count MPV Gran % Lymph % (Auto) [place] % (Auto) Eos % (Auto) Baso % (Auto) Gran # Lymph # [place] # Eos # Baso # Neutrophils % (Manual) Band Neutrophils % Lymphocytes % (Manual) Monocytes % (Manual) Platelet Evaluation Large Platelets Hypochromasia Poikilocytosis (manual Ovalocytes Rouleaux Schistocytes ESR 81 H pO2 VBG pH VBG pCO2 VBG HCO3 VBG Total CO2 VBG O2 Sat (Calc) VBG Base Excess VBG Potassium Glucose Lactate FiO2 Sodium 135 Potassium 3.8 Chloride 94 L Carbon Dioxide 26 Anion Gap 19 BUN 37 H Creatinine 6.2 H Est GFR ( Amer) 11 Est GFR (Non-Af Amer) 9 POC Glucose (mg/dL) 187 H Random Glucose 178 H Calcium 8.3 L Phosphorus 4.3 Magnesium 2.5 H Total Bilirubin 0.7 AST 17 ALT 23 Alkaline Phosphatase 128 H Total Protein 6.1 Albumin 3.1 Globulin 3.0 Albumin/Globulin Ratio 1.0 L Venous Blood Potassium 05/13/17 05/13/17 16:30 16:39 WBC RBC Hgb Hct MCV MCH MCHC RDW Plt Count MPV Gran % Lymph % (Auto) [place] % (Auto) Eos % (Auto) Baso % (Auto) Gran # Lymph # [place] # Eos # Baso # Neutrophils % (Manual) Band Neutrophils % Lymphocytes % (Manual) Monocytes % (Manual) Platelet Evaluation Large Platelets Hypochromasia Poikilocytosis (manual Ovalocytes Rouleaux Schistocytes ESR pO2 61 H VBG pH 7.50 H VBG pCO2 33.0 L VBG HCO3 25.7 VBG Total CO2 26.7 VBG O2 Sat (Calc) 95.4 H VBG Base Excess 2.7 H VBG Potassium 3.4 L Glucose 186 H Lactate 0.8 FiO2 21.0 Sodium 135.0 Potassium Chloride 100.0 Carbon Dioxide Anion Gap BUN Creatinine Est GFR ( Amer) Est GFR (Non-Af Amer) POC Glucose (mg/dL) 177 H Random Glucose Calcium Phosphorus Magnesium Total Bilirubin AST ALT Alkaline Phosphatase Total Protein Albumin Globulin Albumin/Globulin Ratio Venous Blood Potassium 3.4 L - Imaging and Cardiology CT scan - chest Status: Image reviewed by me, Report reviewed by me Assessment & Plan - Assessment and Plan (Free Text) Assessment: 56yo male with multiple cystic/nodular opacities throughout the lung of which some are cavitary, likely representing septic emboli, on broad spectrum abx. Septic Emboli/Lung Abscess Recommend: - Duonebs PRN - broad spectrum abx as per ID, would cover MRSA - bronchoscopy at this time is deferred as the lesions are peripheral and sampling/cultures would be difficult to obtain - follow up cultures - repeat CT Chest scan before discharge
[2017-05-14] MEDS: Insulin Lispro (humaLOG) LOW Coverage SC SCH ×5 (01:18→23:35)
[2017-05-14] MEDS: Albuterol-Ipratrop 3 mg / 0.5 (3 ml) UD IH SCH ×4 (03:12→21:00)
[2017-05-14] MEDS: Meropenem 500 MG in Sodium Chloride 0.9% 100 ML IVPB SCH ×3 (05:42→21:48)
[2017-05-14 07:12] LABS: BASO # 0.03 K/mm3 (0.0-2.0); BASO % 0.3 % (0.0-3.0); EOS # 0.3 (0.0-0.7); EOS % 2.4 % (1.5-5.0); GRAN # 8.96 (1.4-6.5); GRAN % 78.4 % (50.0-68.0); HEMATOCRIT 29.1 % (42.0-52.0); LYMPH # 1.2 (1.2-3.4); LYMPH % 10.7 % (22.0-35.0); MEAN CELL VOLUME 85.3 fl (80.0-105.0); MEAN CORPUSCULAR HGB CONC 31.6 g/dl (31.0-37.0); MEAN PLATELET VOLUME 11.9 fl (7.0-11.0); MONO # 0.9 (0.1-0.6); MONO % 8.2 % (1.0-6.0); RED CELL DISTRIBUTION WIDTH 17.7 % (11.5-14.5); WHITE BLOOD COUNT 11.4 10^3/ul (4.5-11.0)
[2017-05-14 07:57] LABS: BILIRUBIN,TOTAL 0.5 mg/dL (0.2-1.3); CALCIUM 8.3 mg/dL (8.4-10.5); POTASSIUM 3.1 mmol/L (3.6-5.0); TOTAL PROTEIN 5.8 g/dL (5.8-8.3)
[2017-05-14] MEDS: Multivitamin Vitamin B Complex (Nephro-Vite) Tab PO SCH (08:16)
[2017-05-14] MEDS ORDERED: Vancomycin 1gm in NS 250ml 1 GM/250 ML BAG IVPB STA (09:05)
[2017-05-14] MEDS: Pantoprazole 20 mg EC Tab PO SCH (09:37)
--- NOTE | 2017-05-14 10:43 | PN ---
DATE: 05/14/2017 SUBJECTIVE: The patient is in bed. Seen her earlier this morning. No fevers and no chills. PHYSICAL EXAMINATION VITAL SIGNS: On exam, temperature is 98. Blood pressure is 140/60, respiratory rate 20, heart rate of 98. HEENT: Examination of HEENT is unremarkable. NECK: Supple. LUNGS: Have decreased breath sounds. HEART: Normal S1 and S2. ABDOMEN: Soft and nontender. LABORATORY DATA: Reveals a white count of 11,400, hemoglobin of 9, platelets of 233. Chemistries reveals a BUN of 26, creatinine of 4.5. Urinalysis is noted. Toxicology is noted. Urine culture is a gram-positive cocci. The blood cultures have no growth. Review of orders reveals the patient to be on meropenem. The patient had a CAT scan of the chest, and CAT scan of the chest reveals multiple varying sizes, round and elliptical nodular opacities in upper lobes representing septic emboli at least, exhibit thick walled pericentral cavitation and necrosis, two small abscesses collections, necrotic metastasis cannot be excluded. The patient had an echo yesterday which is pending. Dr. Gt Stinson' note is reviewed. ASSESSMENT AND PLAN: A 56-year-old male with end-stage renal disease on hemodialysis, recently discharged from the hospital, history of hypertension, coronary artery disease, myocardial infarction, cerebrovascular accident, diabetes mellitus, history of extended-spectrum beta-lactamase, urinary tract infection, history of coronary bypass graft, right-sided chest wall dialysis, ALLERGIES TO SEAFOOD, now admitted with sepsis with multiple embolic abscesses in the lungs with negative blood cultures, on intermittent vancomycin and meropenem. We will ask if possible for invasive radiology for a CAT scan directed aspirate and/or biopsy. Recommend a Pulmonary consultation also. We will order a vancomycin random level for a.m. Boyd Green MD
--- NOTE | 2017-05-14 11:40 | CON ---
COVERING DOCTOR: Yousif Fisher MD. REASON FOR CONSULTATION: Multiple septic emboli in the lung, cardiac evaluation, rule out endocarditis, history of coronary artery disease, history of CABG in the past. HISTORY OF PRESENT ILLNESS: Briefly, this is a 56-year-old male with history of coronary artery bypass surgery; history of PTCAs in the past; history of GI bleed; history of end-stage renal disease, on dialysis; history of MS; history of type 2 diabetes; history of amputation of right forefoot; history of CVA; history of PTCA 5-[address] Phoenix; history of coronary artery bypass surgery [address] Dony Ha at [facility], admitted with fever, sepsis. CAT scan done today shows multiple abscesses. Cardiology consult was called. The patient denied any chest pain, shortness of breath or any palpitation. The patient was seen in dialysis unit 4th floor. PAST MEDICAL HISTORY: Significant for end-stage renal disease, started dialysis 2 months ago; hypertension; hyperlipidemia; type 2 diabetes; history of fall; history of CVA; history of a stent prior to CABG and then the patient had 5 years ago in 2011 and 2012, possibly had a 5-vessel bypass done by Dr. Dony Ha. PAST SURGICAL HISTORY: Significant for CABG, history of left wrist surgery, history of left knee surgery, history of amputation of right forefoot as well. Recent cardiac workup as follows: The patient had a MUGA scan done dated 04/22/2017 that showed ejection fraction 51%. Prior to that, the patient had a stress test done on 04/20/2017 that showed ejection fraction 29%. History of recent cardiac catheterization, 05/09/[address] Fisher that revealed elongated lesion in 50% left main, LAD is proximally occluded, circumflex proximally suboccluded, RCA chronically occluded. Supraaortic valvular injection revealed no aortic insufficiency. SOTO to LAD found to be patent. Saphenous graft to OM1 found to be okay, SVG to posterolateral branch and found to be patent. In summary, the procedure revealed inferolateral hypokinesis, LV 50%, triple-vessel disease, chronic occluded RCA, patent SOTO to LAD, patent saphenous graft to obtuse marginal 1, patent saphenous graft to the posterolateral branch of RV. Medical treatment recommended. Ejection fraction 50%. Dated 05/10/[address] Fisher. REVIEW OF SYSTEMS: As per HPI. History of GI bleed, history of sepsis in the past. Most recently echo dated 03/26/2017 shows ejection fraction of 48%. PHYSICAL EXAMINATION: VITAL SIGNS: As follows; temperature afebrile, heart rate 90 and blood pressure 142/69. HEENT: PERRLA. Extraocular muscles intact. NECK: Supple. No carotid bruits. No thyromegaly. CHEST: Clear to auscultation. HEART: S1 and S2 regular. ABDOMEN: Soft. EXTREMITIES: Clubbing and cyanosis negative. LABORATORY DATA: Blood work up as follows: WBC 14.9, hemoglobin 10, hematocrit 31.7, platelet count 225. Chemistry shows sodium 135, potassium 3.5, chloride 94, carbon dioxide 26, anion gap of 37, BUN 19, creatinine 6.2. IMPRESSION: CAT scan shows multiple septic emboli consistent with a septic emboli. Blood culture is negative. Elevated WBC. History of coronary artery disease, coronary artery bypass grafting; [place] triple-vessel disease, status post cardiac catheterization. Recently shows [place] triple-vessel disease with chronic right coronary occluded, patent left internal mammary artery to left anterior descending, patent saphenous graft to saphenous vein graft, patent posterolateral branch of saphenous vein graft to right coronary artery. Recent MUGA scan showed ejection fraction 51%, dated 04/22/2017 and the most recent echo shows ejection fraction 48%. By MUGA scan, ejection fraction 51% dated 04/22/2017 and echo 03/26/2017 showed ejection fraction 48%. Admitted with sepsis, so far blood culture has been negative. Admitted with fever and generalized weakness. So far blood cultures has been negative, but CAT scan shows consistent with a possible septic emboli. RECOMMENDATION: We will get echo. Continue to follow up. Repeat blood culture and follow up with ID. Continue dialysis. History of end-stage renal disease, on dialysis. Broad-spectrum antibiotics as ordered. Echo to rule out endocarditis. Further recommendations as per hospital course. If still suspicion is high, we will consider ESTER. We will follow with you and transfer care on Monday to Dr. Yousif Fisher. Corey Mcdermott MD
--- NOTE | 2017-05-14 14:06 | CARD ---
APPROVED REPORT EXAM: Two-dimensional and M-mode echocardiogram with Doppler and color Doppler. INDICATION R/O ENDOCARDITIS 2D DIMENSIONS Left Atrium (2D)4.7 (1.6-4.0cm)IVSd1.3 (0.7-1.1cm) LVDd5.2 (3.9-5.9cm)PWd1.5 (0.7-1.1cm) M-Mode DIMENSIONS Aortic Root3.30 (2.2-3.7cm)Aortic Cusp Exc.1.90 (1.5-2.0cm) Aortic Valve AoV Peak Dybioxjd185.0cm/Sunny Peak GR.29mmHg Mitral Valve MV E Mefxobop68.3cm/sMV A Jzkacmmg09.4cm/sE/A ratio0.7 TDI Lateral E' Peak V12.90cm/sMedial E' Peak V10.20cm/sE/Lateral E'5.2 E/Medial E'6.6 Pulmonary Valve PV Peak Vmzhrxcn534.0cm/sPV Peak Grad.7mmHg Tricuspid Valve TR Peak Vqhjkswz653re/sRAP [id number] Peak Gr.20mmHg [id number] LEFT VENTRICLE The left ventricle is normal size. There is mild to moderate concentric left ventricular hypertrophy. Low normal EF-50% There is mild hypokinesis in the apical anterior wall. Transmitral Doppler flow pattern is Grade III-reversible restrictive diastolic dysfunction. No left ventricle thrombus noted on this study. There is no ventricular septal defect visualized. There is no left ventricular aneurysm. There is no mass noted in the left ventricle. RIGHT VENTRICLE The right ventricle is normal size. There is normal right ventricular wall thickness. The right ventricular systolic function is normal. ATRIA The left atrium is mildly dilated. The right atrium is mildly dilated. There is a catheter seen in the right atrium. The interatrial septum is intact with no evidence for an atrial septal defect. AORTIC VALVE The aortic valve is thickened but opens well. No aortic regurgitation is present. There is no aortic valvular stenosis. There is no aortic valvular vegetation. MITRAL VALVE The mitral valve is thickened but opens well. Mitral regurgitation is trace. There is no mitral valve stenosis. There is no evidence of mitral valve prolapse. TRICUSPID VALVE The tricuspid valve leaflets are thickened , but open well. There is trace tricuspid regurgitation.RVSP-30 mmof Hg. There is no tricuspid valve stenosis. There is no tricuspid valve prolapse or vegetation. PULMONIC VALVE The pulmonic valve is borderline thickened. There is trace pulmonic valvular regurgitation. There is no pulmonic valvular stenosis. GREAT VESSELS The aortic root is normal in size. The ascending aorta is normal in size. The pulmonary artery is normal. The IVC is normal in size and collapses >50% with inspiration. PERICARDIAL EFFUSION There is no pleural effusion. There is no pericardial effusion. <Conclusion> The left ventricle is normal size. There is mild to moderate concentric left ventricular hypertrophy. Low normal EF-50% Mitral regurgitation is trace. There is trace tricuspid regurgitation.RVSP-30 mmof Hg. No thrombus noted There is a catheter seen in the right atrium. No obvious Vegetation noted in this Study, But May consuder ESTER if blodd Culture remains positive.
[2017-05-14] MEDS ORDERED: Potassium Chloride 20 mEq ER Tab PO STA (15:43)
--- NOTE | 2017-05-14 15:51 | CP.PCM.PN ---
<ADEEL SNEED - Last Filed: 05/14/17 15:45> Subjective - Date & Time of Evaluation Date of Evaluation: 05/14/17 Time of Evaluation: 10:00 - Subjective Subjective: patient was seen and examined bedside. denies any complaints, and wants to go home. pt was asked if he wished to go to rehab after d/c, but he stated that he is fine and is balanced enough to go home. pt denies headaches, fevers,chills, cp, sob. Objective - Vital Signs/Intake and Output Vital Signs (last 24 hours): Temp Pulse Resp BP Pulse Ox 98 F 97 H 19 150/78 98 05/14/17 12:00 05/14/17 14:00 05/14/17 12:00 05/14/17 13:13 05/14/17 06:00 Intake and Output: 05/14/17 05/14/17 06:59 18:59 Intake Total 420 660 Output Total 0 0 Balance 420 660 - Medications Medications: Current Medications Acetaminophen (Tylenol 325mg Tab) 650 mg PO Q4H PRN PRN Reason: Fever >100.4 F Last Admin: 05/13/17 22:25 Dose: 650 mg Albuterol/Ipratropium (Duoneb 3 Mg/0.5 Mg (3 Ml) Ud) 3 ml IH [id number] [facility] Last Admin: 05/14/17 13:46 Dose: 3 ml Albuterol/Ipratropium (Duoneb 3 Mg/0.5 Mg (3 Ml) Ud) 3 ml IH Q2H PRN PRN Reason: Shortness of Breath Aspirin (Ecotrin) 81 mg PO DAILY [facility] Last Admin: 05/14/17 09:36 Dose: 81 mg Atorvastatin Calcium (Lipitor) 40 mg PO DIN [facility] Last Admin: 05/13/17 18:33 Dose: 40 mg Famotidine (Pepcid) 20 mg PO DAILY [facility] Last Admin: 05/14/17 09:37 Dose: 20 mg Folic Acid (Folic Acid) 1 mg PO DAILY [facility] Last Admin: 05/14/17 09:37 Dose: 1 mg Heparin Sodium (Porcine) (Heparin) 5,000 units SC Q12 [facility] PRN Reason: Protocol Last Admin: 05/14/17 09:37 Dose: 5,000 units Hydralazine HCl (Apresoline) 25 mg PO TID [facility] Last Admin: 05/14/17 13:13 Dose: 25 mg Meropenem 500 mg/ Sodium (Chloride) 100 mls @ 100 mls/hr IVPB Q8 [facility] PRN Reason: Protocol Stop: 05/20/17 22:01 Last Admin: 05/14/17 13:13 Dose: 100 mls/hr Insulin Human Lispro (Humalog Low) 0 units SC ACHS [facility] PRN Reason: Protocol Last Admin: 05/14/17 12:05 Dose: 3 units Isosorbide Mononitrate (Imdur) 60 mg PO DAILY [facility] Last Admin: 05/14/17 09:37 Dose: 60 mg Losartan Potassium (Cozaar) 100 mg PO DAILY [facility] Last Admin: 05/14/17 09:37 Dose: 100 mg Metoprolol Tartrate (Lopressor) 25 mg PO BID [facility] Last Admin: 05/14/17 09:37 Dose: 25 mg Ondansetron HCl (Zofran Inj) 4 mg IVP Q4H PRN PRN Reason: Nausea/Vomiting Pantoprazole Sodium (Protonix Ec Tab) 20 mg PO DAILY [facility] Last Admin: 05/14/17 09:37 Dose: 20 mg Potassium Chloride (K-Dur 20 Meq Er Tab) 40 meq PO STAT STA Stop: 05/14/17 15:44 Potassium Chloride (K-Dur 20 Meq Er Tab) 20 meq PO 0800 [facility] Pregabalin (Lyrica) 75 mg PO BID [facility] Last Admin: 05/14/17 09:37 Dose: 75 mg Sucralfate (Carafate Tab) 1 gm PO QID [facility] Last Admin: 05/14/17 13:13 Dose: 1 gm Thiamine HCl (Vitamin B1 Tab) 100 mg PO DAILY [facility] Last Admin: 05/14/17 11:29 Dose: Not Given Vitamin B Complex/Vit C/Folic Acid (Nephro-Frantz) 1 tab PO 0800 [facility] Last Admin: 05/14/17 08:16 Dose: 1 tab - Labs Labs: 05/14/17 06:30 05/14/17 06:30 PT 13.4 Seconds (9.9-11.8) H 05/11/17 16:00 INR 1.24 (0.93-1.08) H 05/11/17 16:00 APTT 33.2 Seconds (23.7-30.8) H 05/11/17 16:00 - Additional Findings Additional findings: - Constitutional Appears: Well, No Acute Distress, Unkempt - Head Exam Head Exam: NORMAL INSPECTION - Eye Exam Eye Exam: EOMI, Normal appearance, PERRL - ENT Exam ENT Exam: Mucous Membranes Moist - Neck Exam Neck Exam: Normal Inspection - Respiratory Exam Respiratory Exam: Rales, NORMAL BREATHING PATTERN. absent: Accessory Muscle Use , Respiratory Distress - Cardiovascular Exam Cardiovascular Exam: RRR, +S1, +S2 - GI/Abdominal Exam GI & Abdominal Exam: Soft, Normal Bowel Sounds. absent: Distended, Tenderness - Extremities Exam Extremities Exam: Full ROM, Normal Inspection. absent: Pedal Edema Additional comments: R foot partial amputation - Back Exam Back Exam: NORMAL INSPECTION - Neurological Exam Neurological Exam: Alert, Awake Neuro motor strength exam: Left Upper Extremity: 5, Right Upper Extremity: 5, Left Lower Extremity: 5, Right Lower Extremity: 5 - Psychiatric Exam Psychiatric exam: Normal Affect, Normal Mood - Skin Skin Exam: Normal Color, Warm Additional comments: L anterior fong linear hyperpigmented lesion Assessment and Plan - Assessment and Plan (Free Text) Assessment: 56 year old male with a PMHx of ESRD on HD, CAD, HTN, DE x 3, DM, peripheral neuropathy, history of falls, history of CVA, AMS, and GI bleed who is being admitted for evaluation and treatment of generalized weakness and fever. CT chest shows possible septic emboli vs abscess collections vs necrotic mets, mediastinal lymph nodes Plan: 1. Sepsis (temp, and HR), resolved - SIRS criteria no longer met - febrile yesterday, and was given tylenol in the evening; afebrile since - CT chest showed possible septic emboli vs abscess collections vs necrotic mets , mediastinal lymph nodes - pulm consulted, rec defer bronchoscopy, f/u cxs, broad spectrum abx and repeat CT before d/c - on meropenem - Tylenol PRN - Duonebs tx per pulm rec - ucx + Gram pos cocci - bcx negative after 24hrs (initially negative) - WBC trending down - TTE showed EF 50%, no vegetations noted - may consider ESTER if blood cxs are positive - vanco 1g x1 given today by ID 2. KITA on CKD - pt was dialyzed , monday and sat (1.5L off) - monitor electrolytes - avoid nephrotoxins - Cr improving - nephro-frantz - nephro is following 3. Hypokalemia - K level 3.1 - 40meq stat - 20meq [facility]ARYANN AM - f/u CMP 4. Hx HTN/HLD - Continue home losartan, metoprolol, and hydralazine with holding parameters - continue home imdur - continue lipitor - cardio is following 5. Hx DM2 - ISS - accuchecks ACHS - lyrica 6. History of falls, history of CVA, AMS - High risk fall precautions - cont ASA - lactate level decreasing 7. History of Alcoholism - thiamine, folic acid, MV - zofran prn - ativan prn 8. History of GI Bleed - continue home sucralfate, famotidine, and pantoprazole - monitor H/H 9. R shoulder pain - pt not complaining today - XRay was insignificant - tylenol prn HHD Heparin/Pepcid/PTX patient was seen, evaluated and discussed with attending, Dr. Wood Sneed PGY1 <Marty Muir B - Last Filed: 05/15/17 17:13> Objective - Vital Signs/Intake and Output Vital Signs (last 24 hours): Temp Pulse Resp BP Pulse Ox 104.3 F H 124 H 18 154/86 H 94 L 05/15/17 16:10 05/15/17 14:00 05/15/17 14:00 05/15/17 14:00 05/15/17 14:00 Intake and Output: 05/15/17 05/15/17 06:59 18:59 Intake Total 300 Output Total 600 Balance -300 - Medications Medications: Current Medications Acetaminophen (Tylenol 325mg Tab) 650 mg PO Q4H PRN PRN Reason: Fever >100.4 F Last Admin: 05/14/17 18:37 Dose: 650 mg Albuterol/Ipratropium (Duoneb 3 Mg/0.5 Mg (3 Ml) Ud) 3 ml IH [id number] [facility] Last Admin: 05/15/17 13:47 Dose: Not Given Albuterol/Ipratropium (Duoneb 3 Mg/0.5 Mg (3 Ml) Ud) 3 ml IH Q2H PRN PRN Reason: Shortness of Breath Aspirin (Ecotrin) 81 mg PO DAILY [facility] Last Admin: 05/15/17 16:57 Dose: Not Given Atorvastatin Calcium (Lipitor) 40 mg PO DIN [facility] Last Admin: 05/15/17 16:58 Dose: Not Given Daptomycin (Cubicin) 520 mg 6 mg/kg (520 mg) IV QOTHERDAY [facility] PRN Reason: Protocol Stop: 05/22/17 10:01 Famotidine (Pepcid) 20 mg PO DAILY [facility] Last Admin: 05/15/17 16:58 Dose: Not Given Folic Acid (Folic Acid) 1 mg PO DAILY [facility] Last Admin: 05/15/17 16:57 Dose: Not Given Heparin Sodium (Porcine) (Heparin) 5,000 units SC Q12 [facility] PRN Reason: Protocol Last Admin: 05/15/17 10:00 Dose: Not Given Hydralazine HCl (Apresoline) 25 mg PO TID [facility] Last Admin: 05/15/17 14:33 Dose: Not Given Meropenem 500 mg/ Sodium (Chloride) 100 mls @ 100 mls/hr IVPB Q8 [facility] PRN Reason: Protocol Stop: 05/20/17 22:01 Last Admin: 05/15/17 16:10 Dose: 100 mls/hr Insulin Human Lispro (Humalog Low) 0 units SC ACHS [facility] PRN Reason: Protocol Last Admin: 05/15/17 17:04 Dose: 2 units Isosorbide Mononitrate (Imdur) 60 mg PO DAILY [facility] Last Admin: 05/14/17 09:37 Dose: 60 mg Losartan Potassium (Cozaar) 100 mg PO DAILY [facility] Last Admin: 05/14/17 09:37 Dose: 100 mg Metoprolol Tartrate (Lopressor) 25 mg PO BID [facility] Last Admin: 05/15/17 10:00 Dose: Not Given Ondansetron HCl (Zofran Inj) 4 mg IVP Q4H PRN PRN Reason: Nausea/Vomiting Pantoprazole Sodium (Protonix Ec Tab) 20 mg PO DAILY [facility] Last Admin: 05/15/17 16:58 Dose: Not Given Potassium Chloride (K-Dur 20 Meq Er Tab) 20 meq PO 0800 [facility] Last Admin: 05/15/17 08:22 Dose: 20 meq Pregabalin (Lyrica) 75 mg PO BID [facility] Last Admin: 05/15/17 11:50 Dose: Not Given Sucralfate (Carafate Tab) 1 gm PO DAILY [facility] Last Admin: 05/15/17 17:04 Dose: Not Given Thiamine HCl (Vitamin B1 Tab) 100 mg PO DAILY [facility] Last Admin: 05/15/17 16:10 Dose: Not Given Vitamin B Complex/Vit C/Folic Acid (Nephro-Frantz) 1 tab PO 0800 [facility] Last Admin: 05/15/17 08:23 Dose: 1 tab - Labs Labs: 05/15/17 07:00 05/15/17 07:00 PT 13.4 Seconds (9.9-11.8) H 05/11/17 16:00 INR 1.24 (0.93-1.08) H 05/11/17 16:00 APTT 33.2 Seconds (23.7-30.8) H 05/11/17 16:00 Attending/Attestation - Attestation I have personally seen and examined this patient.: Yes I have fully participated in the care of the patient.: Yes I have reviewed all pertinent clinical information, including history, physical exam and plan: Yes Notes (Text): I have seen and examined patient at bedside. Agree with the above note with the following additions/ exceptions: Briefly this is 56 year old male with a history of ESRD on HD, CAD, HTN, DE x 3, DM-2, peripheral neuropathy, history of falls, history of CVA, AMS, CHF due to systolic dysfunction (EF~50%)and GI bleed who is being admitted for evaluation of generalized weakness which lead to mechanical fall on right side and also had fever most likely due to HCAP vs UTI. CT chest showed possible septic emboli vs abscess collections vs necrotic mets, mediastinal lymph nodes. Collection Clerk recommended to continue abx for now and repeat CT before discharge. Echo ordered. Cardiology consult appreciated. Urine culture is growing GPC. Blood cultures are negative so far. Continue meropenem and intermittent vancomycin. Continue imdur, statin, carafate , pepcid, protonix, thiamine, mvi and folate. Patient feels very well and is requesting to be discharged. Advised the patient that last time PT recommended him to go to [facility] so its better for him to go to [facility] if he is still weak. Patient states that he feels very good now and wants to go home and not [facility]. He was explained about the diagnosis and work up and explained that he still needs antibiotics. Upon discharge patient will be followed by PMGhazal Mack. Dr Marty Muir
--- NOTE | 2017-05-14 16:19 | PN ---
DATE: 05/14/2017 COVERING FOR DOCTOR: Yousif Fisher MD. REASON FOR CONSULTATION: Multiple septic emboli in the lung, cardiac evaluation, rule out endocarditis, history of coronary artery disease, history of CABG in the past. SUBJECTIVE: Patient denies any chest pain, shortness of breath or any palpitation. OBJECTIVE: GENERAL: Lying flat on the bed, not in apparent distress. Examination as follows: VITAL SIGNS: Temperature afebrile, heart rate and blood pressure 150/78. HEENT: PERRLA. Extraocular muscles intact. NECK: Supple. No carotid bruits. No thyromegaly. CHEST: Clear to auscultation. HEART: S1 and S2 regular. ABDOMEN: Soft. EXTREMITIES: Clubbing and cyanosis negative. LABORATORY DATA: Blood workup as follows: WBC 11.5, hemoglobin 9.8, hematocrit 29.1, platelet count 233. Chemistry shows sodium 135, potassium 3.9, chloride 95, carbon dioxide 20, anion gap of 15, BUN 26, creatinine 4.5. IMPRESSION: A 56-year-old male with past medical history significant for peripheral arterial disease, coronary artery disease, he is status post coronary artery bypass surgery five years ago by Dr. Dony Brooke, admitted with fever, sepsis, CAT scan shows possible suspicion for septic emboli. Patient had recently cardiac catheterization done by Dr. Yousif Fisher that shows [place] triple-vessel disease, right coronary totally occluded, patent left internal mammary artery to left anterior descending artery, patent saphenous vein graft to the posterolateral branch of the right coronary artery, patent saphenous vein graft to obtuse marginal 1. History of peripheral arterial disease. Most recently, MUGA scan done, ejection fraction 51%, dated 04/22/2017, admitted with fever, sepsis, end-stage renal disease, on dialysis, hypertension, hyperlipidemia. RECOMMENDATION: We will get echo to assess LV function, rule out endocarditis. Follow up blood culture. So far, blood cultures are negative. Urine culture positive. Followup ID. We will get the echo to rule out endocarditis. Further recommendations during the hospital course. If echo shows suspicious of endocarditis and if blood culture is positive, consider ESTER. We will follow with you and transfer care tomorrow to Dr. Yousif Fisher. Corey Mcdermott MD [facility] # [id number]
--- NOTE | 2017-05-14 17:59 | CP.PCM.PN ---
Subjective - Date & Time of Evaluation Date of Evaluation: 05/14/17 Time of Evaluation: 17:59 - Subjective Subjective: RENAL FOLLOW UP NOTE no events overnight Objective - Vital Signs/Intake and Output Vital Signs (last 24 hours): Temp Pulse Resp BP Pulse Ox 98 F 94 H 19 166/87 H 98 05/14/17 12:00 05/14/17 17:41 05/14/17 12:00 05/14/17 17:41 05/14/17 06:00 Intake and Output: 05/14/17 05/14/17 06:59 18:59 Intake Total 420 660 Output Total 0 0 Balance 420 660 - Medications Medications: Current Medications Acetaminophen (Tylenol 325mg Tab) 650 mg PO Q4H PRN PRN Reason: Fever >100.4 F Last Admin: 05/13/17 22:25 Dose: 650 mg Albuterol/Ipratropium (Duoneb 3 Mg/0.5 Mg (3 Ml) Ud) 3 ml IH [id number] [facility] Last Admin: 05/14/17 13:46 Dose: 3 ml Albuterol/Ipratropium (Duoneb 3 Mg/0.5 Mg (3 Ml) Ud) 3 ml IH Q2H PRN PRN Reason: Shortness of Breath Aspirin (Ecotrin) 81 mg PO DAILY [facility] Last Admin: 05/14/17 09:36 Dose: 81 mg Atorvastatin Calcium (Lipitor) 40 mg PO DIN [facility] Last Admin: 05/14/17 17:41 Dose: 40 mg Famotidine (Pepcid) 20 mg PO DAILY [facility] Last Admin: 05/14/17 09:37 Dose: 20 mg Folic Acid (Folic Acid) 1 mg PO DAILY [facility] Last Admin: 05/14/17 09:37 Dose: 1 mg Heparin Sodium (Porcine) (Heparin) 5,000 units SC Q12 MARYANN PRN Reason: Protocol Last Admin: 05/14/17 09:37 Dose: 5,000 units Hydralazine HCl (Apresoline) 25 mg PO TID [facility] Last Admin: 05/14/17 17:41 Dose: 25 mg Meropenem 500 mg/ Sodium (Chloride) 100 mls @ 100 mls/hr IVPB Q8 MARYANN PRN Reason: Protocol Stop: 05/20/17 22:01 Last Admin: 05/14/17 13:13 Dose: 100 mls/hr Insulin Human Lispro (Humalog Low) 0 units SC ACHS [facility] PRN Reason: Protocol Last Admin: 05/14/17 17:40 Dose: 1 units Isosorbide Mononitrate (Imdur) 60 mg PO DAILY [facility] Last Admin: 05/14/17 09:37 Dose: 60 mg Losartan Potassium (Cozaar) 100 mg PO DAILY [facility] Last Admin: 05/14/17 09:37 Dose: 100 mg Metoprolol Tartrate (Lopressor) 25 mg PO BID [facility] Last Admin: 05/14/17 17:41 Dose: 25 mg Ondansetron HCl (Zofran Inj) 4 mg IVP Q4H PRN PRN Reason: Nausea/Vomiting Pantoprazole Sodium (Protonix Ec Tab) 20 mg PO DAILY [facility] Last Admin: 05/14/17 09:37 Dose: 20 mg Potassium Chloride (K-Dur 20 Meq Er Tab) 20 meq PO 0800 [facility] Pregabalin (Lyrica) 75 mg PO BID [facility] Last Admin: 05/14/17 17:41 Dose: 75 mg Sucralfate (Carafate Tab) 1 gm PO QID [facility] Last Admin: 05/14/17 17:41 Dose: 1 gm Thiamine HCl (Vitamin B1 Tab) 100 mg PO DAILY [facility] Last Admin: 05/14/17 11:29 Dose: Not Given Vitamin B Complex/Vit C/Folic Acid (Nephro-Eleni) 1 tab PO 0800 [facility] Last Admin: 05/14/17 08:16 Dose: 1 tab - Labs Labs: 05/14/17 06:30 05/14/17 06:30 PT 13.4 Seconds (9.9-11.8) H 05/11/17 16:00 INR 1.24 (0.93-1.08) H 05/11/17 16:00 APTT 33.2 Seconds (23.7-30.8) H 05/11/17 16:00 - Constitutional Appears: Non-toxic, No Acute Distress - Head Exam Head Exam: NORMAL INSPECTION - Eye Exam Eye Exam: Normal appearance - ENT Exam ENT Exam: Mucous Membranes Moist - Respiratory Exam Respiratory Exam: NORMAL BREATHING PATTERN - Cardiovascular Exam Cardiovascular Exam: +S1, +S2 - GI/Abdominal Exam GI & Abdominal Exam: Soft - Neurological Exam Neurological Exam: Alert, Oriented x3 - Skin Skin Exam: Dry, Warm Assessment and Plan - Assessment and Plan (Free Text) Plan: esrd/dm/htn/sepsis hd mwf, extra session on monday lytes reviewed bp ok anemia monitor abx per primary team monitor phos levels patient is on sucralfate QID, recommend decreasing it as high risk for aluminum toxicity in dialysis patients
[2017-05-15] MEDS: Albuterol-Ipratrop 3 mg / 0.5 (3 ml) UD IH SCH ×4 (02:02→20:14)
[2017-05-15] MEDS: Meropenem 500 MG in Sodium Chloride 0.9% 100 ML IVPB SCH ×3 (05:38→21:17)
[2017-05-15 07:36] LABS: BASO # 0.04 K/mm3 (0.0-2.0); BASO % 0.4 % (0.0-3.0); EOS # 0.3 (0.0-0.7); EOS % 2.6 % (1.5-5.0); GRAN # 8.1 (1.4-6.5); GRAN % 76.6 % (50.0-68.0); LYMPH # 1.3 (1.2-3.4); LYMPH % 12.2 % (22.0-35.0); MEAN CELL VOLUME 85.1 fl (80.0-105.0); MEAN CORPUSCULAR HEMOGLOBIN 27.1 pg (25.0-35.0); MEAN CORPUSCULAR HGB CONC 31.8 g/dl (31.0-37.0); MEAN PLATELET VOLUME 11.5 fl (7.0-11.0); MONO # 0.9 (0.1-0.6); MONO % 8.2 % (1.0-6.0); RED CELL DISTRIBUTION WIDTH 17.4 % (11.5-14.5); WHITE BLOOD COUNT 10.6 10^3/ul (4.5-11.0)
[2017-05-15 08:00] LABS: BILIRUBIN,TOTAL 0.4 mg/dL (0.2-1.3); POTASSIUM 3.5 mmol/L (3.6-5.0); TOTAL PROTEIN 5.5 g/dL (5.8-8.3)
[2017-05-15] MEDS: Insulin Lispro (humaLOG) LOW Coverage SC SCH ×4 (08:22→23:07)
[2017-05-15] MEDS: Potassium Chloride 20 mEq ER Tab PO SCH (08:22)
[2017-05-15] MEDS: Multivitamin Vitamin B Complex (Nephro-Vite) Tab PO SCH (08:23)
--- NOTE | 2017-05-15 10:59 | PN ---
DATE: 05/15/2017 SUBJECTIVE: The patient is awake, alert. Denies shortness of breath. Denies chest pain. OBJECTIVE: VITAL SIGNS: Blood pressure varies from 124-142 systolic, heart rate is in the 80s. NECK: Negative JVD. LUNGS: Without rales. HEART: S1, S2. EXTREMITIES: Without edema. LABORATORY DATA: BUN and creatinine is 34/5.7. The glucose is 237. The hemoglobin is 8.9 with a white count is down to 10.6. IMPRESSION: 1. Pulmonary infection. 2. Stable angina. 3. Coronary artery disease. 4. History of coronary artery bypass surgery. 5. Mild congestive heart failure, which is better. 6. End-stage renal disease. Given these findings, the patient is currently on IV antibiotics. There is no evidence for septic emboli given his negative blood cultures. We will continue the IV antibiotics. Yousif Fisher MD
--- NOTE | 2017-05-15 12:51 | CP.PCM.PN ---
<Kayleigh Martinez - Last Filed: 05/15/17 18:52> Subjective - Date & Time of Evaluation Date of Evaluation: 05/15/17 Time of Evaluation: 09:00 - Subjective Subjective: Kayleigh Martinez DO, PGY-1, Hospitalist Service Patient seen and examined at bedside. Patient denies any fever, chills, chest pain, nausea or vomiting. Nurse reports no events overnight. Objective - Vital Signs/Intake and Output Vital Signs (last 24 hours): Temp Pulse Resp BP Pulse Ox 98.4 F 81 20 142/75 95 05/15/17 06:00 05/15/17 10:00 05/15/17 06:00 05/15/17 06:00 05/15/17 06:00 Intake and Output: 05/15/17 05/15/17 06:59 18:59 Intake Total 300 Output Total 600 Balance -300 - Medications Medications: Current Medications Acetaminophen (Tylenol 325mg Tab) 650 mg PO Q4H PRN PRN Reason: Fever >100.4 F Last Admin: 05/14/17 18:37 Dose: 650 mg Albuterol/Ipratropium (Duoneb 3 Mg/0.5 Mg (3 Ml) Ud) 3 ml IH [id number] [facility] Last Admin: 05/15/17 07:27 Dose: Not Given Albuterol/Ipratropium (Duoneb 3 Mg/0.5 Mg (3 Ml) Ud) 3 ml IH Q2H PRN PRN Reason: Shortness of Breath Aspirin (Ecotrin) 81 mg PO DAILY [facility] Last Admin: 05/14/17 09:36 Dose: 81 mg Atorvastatin Calcium (Lipitor) 40 mg PO DIN [facility] Last Admin: 05/14/17 17:41 Dose: 40 mg Famotidine (Pepcid) 20 mg PO DAILY [facility] Last Admin: 05/14/17 09:37 Dose: 20 mg Folic Acid (Folic Acid) 1 mg PO DAILY [facility] Last Admin: 05/14/17 09:37 Dose: 1 mg Heparin Sodium (Porcine) (Heparin) 5,000 units SC Q12 MARYANN PRN Reason: Protocol Last Admin: 05/14/17 21:45 Dose: 5,000 units Hydralazine HCl (Apresoline) 25 mg PO TID [facility] Last Admin: 05/15/17 10:00 Dose: Not Given Meropenem 500 mg/ Sodium (Chloride) 100 mls @ 100 mls/hr IVPB Q8 MARYANN PRN Reason: Protocol Stop: 05/20/17 22:01 Last Admin: 05/15/17 05:38 Dose: 100 mls/hr Insulin Human Lispro (Humalog Low) 0 units SC ACHS MARYANN PRN Reason: Protocol Last Admin: 05/15/17 08:22 Dose: 2 units Isosorbide Mononitrate (Imdur) 60 mg PO DAILY [facility] Last Admin: 05/14/17 09:37 Dose: 60 mg Losartan Potassium (Cozaar) 100 mg PO DAILY [facility] Last Admin: 05/14/17 09:37 Dose: 100 mg Metoprolol Tartrate (Lopressor) 25 mg PO BID [facility] Last Admin: 05/15/17 10:00 Dose: Not Given Ondansetron HCl (Zofran Inj) 4 mg IVP Q4H PRN PRN Reason: Nausea/Vomiting Pantoprazole Sodium (Protonix Ec Tab) 20 mg PO DAILY [facility] Last Admin: 05/14/17 09:37 Dose: 20 mg Potassium Chloride (K-Dur 20 Meq Er Tab) 20 meq PO 0800 [facility] Last Admin: 05/15/17 08:22 Dose: 20 meq Pregabalin (Lyrica) 75 mg PO BID [facility] Last Admin: 05/15/17 11:50 Dose: Not Given Sucralfate (Carafate Tab) 1 gm PO DAILY [facility] Thiamine HCl (Vitamin B1 Tab) 100 mg PO DAILY [facility] Last Admin: 05/14/17 11:29 Dose: Not Given Vitamin B Complex/Vit C/Folic Acid (Nephro-Frantz) 1 tab PO 0800 [facility] Last Admin: 05/15/17 08:23 Dose: 1 tab - Labs Labs: 05/15/17 07:00 05/15/17 07:00 PT 13.4 Seconds (9.9-11.8) H 05/11/17 16:00 INR 1.24 (0.93-1.08) H 05/11/17 16:00 APTT 33.2 Seconds (23.7-30.8) H 05/11/17 16:00 - Constitutional Appears: Well, Non-toxic - Head Exam Head Exam: ATRAUMATIC, NORMOCEPHALIC - Eye Exam Eye Exam: EOMI, Normal appearance, PERRL - ENT Exam ENT Exam: Mucous Membranes Moist, Normal Oropharynx - Neck Exam Neck Exam: Normal Inspection. absent: Lymphadenopathy, Thyromegaly - Respiratory Exam Respiratory Exam: Clear to Ausculation Bilateral, NORMAL BREATHING PATTERN - Cardiovascular Exam Cardiovascular Exam: RRR, +S1, +S2 - GI/Abdominal Exam GI & Abdominal Exam: Soft, Normal Bowel Sounds. absent: Rebound - Extremities Exam Extremities Exam: Full ROM, Normal Capillary Refill, Normal Inspection Additional comments: right forefoot amputated - Back Exam Back Exam: NORMAL INSPECTION. absent: CVA tenderness (L), CVA tenderness (R) - Neurological Exam Neurological Exam: Alert, Awake, CN II-XII Intact, Oriented x3 - Psychiatric Exam Psychiatric exam: Normal Affect, Normal Mood - Skin Skin Exam: Dry, Intact, Normal Color, Warm Assessment and Plan - Assessment and Plan (Free Text) Assessment: 56 year old male with a PMHx of ESRD on HD, CAD, HTN, NE x 3, DM, peripheral neuropathy, history of falls, history of CVA, AMS, and GI bleed who is being admitted for evaluation and treatment of generalized weakness and fever. CT chest shows possible septic emboli vs abscess collections vs necrotic mets, mediastinal lymph nodes. The patient's blood culture have been negative. Plan: 1. Sepsis (temp, and HR), resolved - SIRS criteria no longer met - febrile yesterday, and was given tylenol in the evening; afebrile since - CT chest showed possible septic emboli vs abscess collections vs necrotic mets , mediastinal lymph nodes - pulm consulted, rec defer bronchoscopy, f/u cxs, broad spectrum abx and repeat CT before d/c - on meropenem - Tylenol PRN - Duonebs tx per pulm rec - ucx + Gram pos cocci - bcx negative after 24hrs (initially negative) - WBC trending down - TTE showed EF 50%, no vegetations noted - may consider ESTER if blood cxs are positive - vanco 1g x1 given today by ID 2. KITA on CKD - pt was dialyzed , monday and sat (1.5L off) - monitor electrolytes - avoid nephrotoxins - Cr improving - nephro-frantz - nephro is following 3. Hypokalemia - K level 3.1 - 40meq stat - 20meq MARYANN AM - f/u CMP 4. Hx HTN/HLD - Continue home losartan, metoprolol, and hydralazine with holding parameters - continue home imdur - continue lipitor - cardio is following 5. Hx DM2 - ISS - accuchecks ACHS - lyrica 6. History of falls, history of CVA, AMS - High risk fall precautions - cont ASA - lactate level decreasing 7. History of Alcoholism - thiamine, folic acid, MV - zofran prn - ativan prn 8. History of GI Bleed - continue home sucralfate, famotidine, and pantoprazole - monitor H/H 9. R shoulder pain - pt not complaining today - XRay was insignificant - tylenol prn HHD Heparin/Pepcid/PTX patient was seen, evaluated and discussed with attending, Dr. Muir Plan: 56 year old male with a PMHx of ESRD on HD, CAD, HTN, NE x 3, DM, peripheral neuropathy, history of falls, history of CVA, AMS, and GI bleed who is being admitted for evaluation and treatment of generalized weakness and fever. CT chest shows possible septic emboli vs abscess collections vs necrotic mets, mediastinal lymph nodes Plan: 1. Sepsis (temp, and HR), resolved - afebrile overnight, WBC down to 10.7 - CT chest showed possible septic emboli vs abscess collections vs necrotic mets , mediastinal lymph nodes: IR consulted via message, will revisit this matter considering may need a aspirate/biopsy of a peripheral lesion in the lung. - pulmonolgy consulted, defer bronchoscopy, f/u cxs, broad spectrum abx and repeat CT before discharge - on meropenem - Tylenol PRN - Duonebs treatment per pulmonolgy recommendations - Urine culture grew VRE; contact precaution ordered - bcx negative after 24hrs (initially negative) - WBC trending down - TTE showed EF 50%, no vegetations noted - may consider ESTER if blood cxs are positive - vanco 1g x1 given yesterday by ID 2. KITA on CKD - pt was dialyzed , monday and sat (1.5L off) - monitor electrolytes - avoid nephrotoxins - Cr improving - nephro-frantz - nephro is following 3. Hypokalemia - K level 3.5 - 40 mEq - Repeat CMP in AM 4. Hx HTN/HLD - Continue home losartan, metoprolol, and hydralazine with holding parameters - continue home imdur - continue lipitor - Cardiology is following 5. Hx DM2 - ISS - accuchecks ACHS - Lyrica will decrease dosage to 25 BID, as it may contribute to the patient being sedated every so often I see him. 6. History of falls, history of CVA, AMS - High risk fall precautions - cont ASA - lactate level decreasing 7. History of Alcoholism - thiamine, folic acid, MV - zofran prn - ativan prn 8. Esophagitis, Gastritis and history of GI bleed - Sucralafate 1 gram PO daily - Famotidine 20 mg PO HS - Protonix 20 mg PO daily - monitor H/H HHD Heparin/Pepcid/PTX patient was seen, evaluated and discussed with attending, Dr. Muir <Marty Muir - Last Filed: 05/26/17 17:37> Objective - Vital Signs/Intake and Output Vital Signs (last 24 hours): Temp Pulse Resp BP Pulse Ox 98.6 F 67 20 147/60 100 05/23/17 08:20 05/23/17 10:49 05/23/17 08:20 05/23/17 10:49 05/23/17 08:20 - Labs Labs: 05/23/17 07:41 05/23/17 07:41 PT 13.4 Seconds (9.9-11.8) H 05/11/17 16:00 INR 1.24 (0.93-1.08) H 05/11/17 16:00 APTT 33.2 Seconds (23.7-30.8) H 05/11/17 16:00 Attending/Attestation - Attestation I have personally seen and examined this patient.: Yes I have fully participated in the care of the patient.: Yes I have reviewed all pertinent clinical information, including history, physical exam and plan: Yes Notes (Text): I have seen and examined patient at bedside. Agree with the above note with the following additions/ exceptions: Briefly this is 56 year old male with a history of ESRD on HD, CAD, HTN, NE x 3, DM-2, peripheral neuropathy, history of falls, history of CVA, AMS, CHF due to systolic dysfunction (EF~50%)and GI bleed who is being admitted for evaluation of generalized weakness which lead to mechanical fall on right side and also had fever most likely due to HCAP vs UTI. CT chest showed possible septic emboli vs abscess collections vs necrotic mets, mediastinal lymph nodes. Senior Designer/Art Director recommended to continue abx for now and repeat CT before discharge. Echo ordered. Cardiology consult appreciated. Urine culture is growing GPC. Blood cultures are negative so far. Continue meropenem and intermittent vancomycin. Continue imdur, statin, carafate , pepcid, protonix, thiamine, mvi and folate. Patient feels very well and is requesting to be discharged. Advised the patient that last time PT recommended him to go to [facility] so its better for him to go to [facility] if he is still weak. Patient states that he feels very good now and wants to go home and not [facility]. He was explained about the diagnosis and work up and explained that he still needs antibiotics. Upon discharge patient will be followed by PMGhazal Mack. Dr Marty Muir
[2017-05-15 16:18] LABS: URINE APPEARANCE SL CLOUDY (CLEAR); URINE BILIRUBIN SMALL (NEGATIVE); URINE BLOOD SMALL (NEGATIVE); URINE COLOR YELLOW (YELLOW); URINE GLUCOSE (UA) 100 mg/dL (NEGATIVE); URINE KETONE 15 mg/dL (NEGATIVE); URINE LEUKOCYTE ESTERASE SMALL Leu/uL (NEGATIVE); URINE PROTEIN >=300 mg/dL (<30 mg/dL)
[2017-05-15 16:37] LABS: URINE BACTERIA MANY (NEG); URINE EPITHELIAL CELLS 0 - 2 /hpf (0-5); URINE RBC 0 - 2 /hpf (0-2); URINE WBC 0 - 2 /hpf (0-6)
[2017-05-15] MEDS: Pantoprazole 20 mg EC Tab PO SCH (16:58)
--- NOTE | 2017-05-15 19:46 | PN ---
DATE: FOLLOWUP NEPHROLOGY NOTE CHIEF COMPLAINT: "I want to go home." HISTORY OF PRESENT ILLNESS: The patient is a 56-year-old male with a history of admitted with the sepsis. The patient was seen during the dialysis. He says he wants to go home, but he was having chills and was shaking with that. He was not having any temperature or fever at this time, but the patient felt very sick. He denies any nausea or vomit, does complain of pain in the chest where he fell down. He does report shortness of breath as well. PHYSICAL EXAMINATION: GENERAL: The patient appeared to be ill. He was having shaking chills while he was seen during dialysis. VITAL SIGNS: He did note he was afebrile, when he was seen blood pressure increased to 200/100, his heart rate is also in the 110 range. Prior to that, blood pressure was better at 140s-150s. He has been afebrile for the last day or 2. His heart rate has been prior to that 81. CARDIOVASCULAR: S1 normal with sinus tachycardia. LUNGS: Bilateral vesicular breath sounds. Unable to examine completely because of the patient's shaking. There was no apparent wheezing or crackle at this time. ABDOMEN: Soft and nontender. No organomegaly could be appreciated. EXTREMITIES: There is no edema this time. The patient has a toe amputation. PSYCHIATRIC: Could not be done at this time, because of his shaking and chills and his illness. GENITOURINARY: The patient continues to have voiding catheter, otherwise kidney and bladder not palpable. LABORATORY DATA: Workup, his hemoglobin was 8.9, platelet count is 236, and white blood cell count 10.6. Sodium is 130, potassium 3.5, bicarb 24, creatinine is 5.7, and glucose 237. His vancomycin level today was 23. His urine culture grew as VRE. Rest of the blood cultures have been negative. The patient had a CT scan of the chest, which had shown the patient has a bilateral septic emboli. Echocardiogram did not show any evidence for vegetations. CURRENT MEDICATIONS: Reviewed, which showed the patient is on Tylenol , aspirin 81 mg per day, Lipitor 40 mg with dinner, Pepcid 20 mg daily, folic acid daily, heparin with the dialysis, hydralazine 25 mg t.i.d., sliding sale insulin, Imdur 60 mg per day, losartan 100 mg per day, metoprolol 25 mg b.i.d., Zofran PPI, on Lyrica 75 mg b.i.d. Carafate 1 g daily, thiamine daily, he is also on Nephro-Eleni, vancomycin, and meropenem. ASSESSMENT AND PLAN: 1. Sepsis with bilateral septic emboli in the lungs. 2. Endstage renal disease on hemodialysis via Perm-A-Cath. 3. Diabetic chronic kidney disease. 4. Hypertensive chronic kidney disease. 5. Anemia. 6. Hypophosphatemia. 7. Secondary hypoparathyroidism. 8. Hypertension. 9. Esophageal ulceration. 10. Gastroparesis. 11. Coronary artery disease, status post coronary artery bypass grafting. RECOMMENDATIONS: The patient was into dialysis 3 hours, but with a shaking chills, concerns for bacteremia, and dialysis was stopped. Blood cultures from Perm-A-Cath was drawn. Also ordered blood cultures from . Then continue the antibiotics as per Infectious Disease. Discussed with cardiology as well. He has already had echocardiogram, will be followed further for the need for ESTER. Continue the Nephro-Eleni. Continue the antihypertensive medications. Follow the blood culture results. Consider discontinuing Macias catheter at the earliest, patient is not having much urine out these days. All questions were answered. Sancho Garrett MD
[2017-05-16] MEDS: Albuterol-Ipratrop 3 mg / 0.5 (3 ml) UD IH SCH ×4 (02:24→19:39)
[2017-05-16 06:53] LABS: BASO # 0.04 K/mm3 (0.0-2.0); BASO % 0.2 % (0.0-3.0); EOS # 0.2 (0.0-0.7); GRAN # 16.68 (1.4-6.5); GRAN % 84.2 % (50.0-68.0); HEMATOCRIT 29.4 % (42.0-52.0); LYMPH # 1.6 (1.2-3.4); LYMPH % 8.1 % (22.0-35.0); MEAN CORPUSCULAR HEMOGLOBIN 26.9 pg (25.0-35.0); MEAN CORPUSCULAR HGB CONC 31.3 g/dl (31.0-37.0); MONO # 1.3 (0.1-0.6); MONO % 6.5 % (1.0-6.0); RED CELL DISTRIBUTION WIDTH 17.4 % (11.5-14.5); WHITE BLOOD COUNT 19.8 10^3/ul (4.5-11.0)
[2017-05-16 06:59] LABS: ALB/GLOB RATIO 0.9 (1.1-1.8); BILIRUBIN,TOTAL 0.5 mg/dL (0.2-1.3); CALCIUM 7.9 mg/dL (8.4-10.5); POTASSIUM 3.6 mmol/L (3.6-5.0); TOTAL PROTEIN 5.6 g/dL (5.8-8.3)
[2017-05-16] MEDS: Pantoprazole 20 mg EC Tab PO SCH (09:34)
[2017-05-16] MEDS: Multivitamin Vitamin B Complex (Nephro-Vite) Tab PO SCH (09:34)
[2017-05-16] MEDS: Potassium Chloride 20 mEq ER Tab PO SCH (09:35)
[2017-05-16] MEDS: Insulin Lispro (humaLOG) LOW Coverage SC SCH ×4 (09:36→22:15)
[2017-05-16] MEDS ORDERED: Midazolam 2 MG/2 ML VIAL ONE (10:26)
--- NOTE | 2017-05-16 12:42 | CP.PCM.PN ---
<Kayleigh Martinez - Last Filed: 05/16/17 19:06> Subjective - Date & Time of Evaluation Date of Evaluation: 05/16/17 Time of Evaluation: 09:05 - Subjective Subjective: Kayleigh Martinez DO, PGY-1, Hospitalist Service Patient seen and examined at bedside. Patient complains of fever and chills during dialysis. Nurse reports no over night events. Objective - Vital Signs/Intake and Output Vital Signs (last 24 hours): Temp Pulse Resp BP Pulse Ox 98.1 F 77 18 153/85 H 97 05/16/17 12:03 05/16/17 12:03 05/16/17 12:03 05/16/17 12:03 05/16/17 12:03 Intake and Output: 05/16/17 05/16/17 06:59 18:59 Intake Total 125 Balance 125 - Medications Medications: Current Medications Acetaminophen (Tylenol 325mg Tab) 650 mg PO Q4H PRN PRN Reason: Fever >100.4 F Last Admin: 05/14/17 18:37 Dose: 650 mg Albuterol/Ipratropium (Duoneb 3 Mg/0.5 Mg (3 Ml) Ud) 3 ml IH [id number] [facility] Last Admin: 05/16/17 08:18 Dose: Not Given Albuterol/Ipratropium (Duoneb 3 Mg/0.5 Mg (3 Ml) Ud) 3 ml IH Q2H PRN PRN Reason: Shortness of Breath Aspirin (Ecotrin) 81 mg PO DAILY [facility] Last Admin: 05/16/17 09:34 Dose: 81 mg Atorvastatin Calcium (Lipitor) 40 mg PO DIN [facility] Last Admin: 05/15/17 16:58 Dose: Not Given Daptomycin (Cubicin) 520 mg 6 mg/kg (520 mg) IV QOTHERDAY [facility] PRN Reason: Protocol Stop: 05/22/17 10:01 Famotidine (Pepcid) 20 mg PO DAILY [facility] Last Admin: 05/16/17 09:34 Dose: 20 mg Folic Acid (Folic Acid) 1 mg PO DAILY [facility] Last Admin: 05/16/17 09:34 Dose: 1 mg Heparin Sodium (Porcine) (Heparin) 5,000 units SC Q12 [facility] PRN Reason: Protocol Last Admin: 05/16/17 09:36 Dose: Not Given Hydralazine HCl (Apresoline) 25 mg PO TID [facility] Last Admin: 05/16/17 09:35 Dose: 25 mg Meropenem 500 mg/ Sodium (Chloride) 100 mls @ 100 mls/hr IVPB Q8 [facility] PRN Reason: Protocol Stop: 05/20/17 22:01 Last Admin: 05/15/17 21:17 Dose: 100 mls/hr Insulin Human Lispro (Humalog Low) 0 units SC ACHS [facility] PRN Reason: Protocol Last Admin: 05/16/17 09:36 Dose: 3 units Isosorbide Mononitrate (Imdur) 60 mg PO DAILY [facility] Last Admin: 05/16/17 09:35 Dose: 60 mg Losartan Potassium (Cozaar) 100 mg PO DAILY [facility] Last Admin: 05/16/17 09:35 Dose: 100 mg Metoprolol Tartrate (Lopressor) 25 mg PO BID [facility] Last Admin: 05/16/17 09:35 Dose: 25 mg Ondansetron HCl (Zofran Inj) 4 mg IVP Q4H PRN PRN Reason: Nausea/Vomiting Pantoprazole Sodium (Protonix Ec Tab) 20 mg PO DAILY [facility] Last Admin: 05/16/17 09:34 Dose: 20 mg Potassium Chloride (K-Dur 20 Meq Er Tab) 20 meq PO 0800 [facility] Last Admin: 05/16/17 09:35 Dose: 20 meq Pregabalin (Lyrica) 75 mg PO BID [facility] Last Admin: 05/16/17 09:34 Dose: 75 mg Sucralfate (Carafate Tab) 1 gm PO DAILY [facility] Last Admin: 05/16/17 09:34 Dose: 1 gm Thiamine HCl (Vitamin B1 Tab) 100 mg PO DAILY [facility] Last Admin: 05/16/17 09:34 Dose: 100 mg Vitamin B Complex/Vit C/Folic Acid (Nephro-Eleni) 1 tab PO 0800 [facility] Last Admin: 05/16/17 09:34 Dose: 1 tab - Labs Labs: 05/16/17 04:30 05/16/17 04:30 PT 13.4 Seconds (9.9-11.8) H 05/11/17 16:00 INR 1.24 (0.93-1.08) H 05/11/17 16:00 APTT 33.2 Seconds (23.7-30.8) H 05/11/17 16:00 - Constitutional Appears: Non-toxic, No Acute Distress - Head Exam Head Exam: ATRAUMATIC, NORMOCEPHALIC - Eye Exam Eye Exam: EOMI, Normal appearance, PERRL - ENT Exam ENT Exam: Mucous Membranes Moist, Normal Oropharynx - Neck Exam Neck Exam: Normal Inspection - Respiratory Exam Respiratory Exam: Clear to Ausculation Bilateral, NORMAL BREATHING PATTERN. absent: Respiratory Distress - Cardiovascular Exam Cardiovascular Exam: RRR, +S1, +S2 - GI/Abdominal Exam GI & Abdominal Exam: Soft, Normal Bowel Sounds. absent: Distended, Rebound - Extremities Exam Extremities Exam: Normal Capillary Refill, Normal Inspection - Neurological Exam Neurological Exam: Alert, Awake, CN II-XII Intact - Psychiatric Exam Psychiatric exam: Agitated, Normal Affect Assessment and Plan - Assessment and Plan (Free Text) Assessment: Patient is a 56 year old male with a past medical history of ESRD on HD, CABG, HTN, LA(s), DM, peripheral neuropathy, GI bleed who was admitted for generalized weakness and fever. Patient was found to have multiple lesions in the lungs, likely secondary to septic emboli from permacath, though blood cultures have been negative. Patient has been develop fevers and chills during hemodialysis. He is currently on Daptomycin and Merropenem. Biopsy of the lung tissue was performed today under radiographic guidance. Plan: 1) Leukocytosis, fever chills, likely secondary to septic emboli from permacath , though blood cultures are negative. - Patient is on Daptomycin and Merropenem - Lung biopsy performed - Infectious Disease is on the case 2) ESRD - Dr. Garrett, nephrology is on the case - Patient scheduled for HD and Monday of this week 3) Hypertension - Continue home Losartan, Metoprolol, and Hydralazine with holding parameters 4) CAD - continue home isosorbide mononitrate - continue home statin 5) DM II - ISS - accuchecks ACHS 6) Esophagitis/Gastritis - Sucralfate 1 gm PO daily - Famotidine 20 mg - Pantoprazole 20 mg 7) Peripheral Neuropathy -Continue with Pregabalin 75 mg BID 8) DVT prophylaxis - Heparin 5,000 units SC q12h 9) Palliative Care/Advanced Directives - Yesika Moulton consulted 10) Depression - Psychiatry consulted FEN: HHD, Low carb diet Disposition: Guarded <Rangasamy,Ajantha - Last Filed: 05/17/17 16:00> Objective - Vital Signs/Intake and Output Vital Signs (last 24 hours): Temp Pulse Resp BP Pulse Ox 97.4 F L 70 19 145/80 95 05/17/17 06:00 05/17/17 14:45 05/17/17 06:00 05/17/17 14:45 05/17/17 06:00 Intake and Output: 05/17/17 05/17/17 06:59 18:59 Intake Total 520 Output Total 600 Balance -80 - Medications Medications: Current Medications Acetaminophen (Tylenol 325mg Tab) 650 mg PO Q4H PRN PRN Reason: Fever >100.4 F Last Admin: 05/14/17 18:37 Dose: 650 mg Albuterol/Ipratropium (Duoneb 3 Mg/0.5 Mg (3 Ml) Ud) 3 ml IH [id number] [facility] Last Admin: 05/17/17 13:55 Dose: Not Given Albuterol/Ipratropium (Duoneb 3 Mg/0.5 Mg (3 Ml) Ud) 3 ml IH Q2H PRN PRN Reason: Shortness of Breath Aspirin (Ecotrin) 81 mg PO DAILY [facility] Last Admin: 05/17/17 11:13 Dose: 81 mg Atorvastatin Calcium (Lipitor) 40 mg PO DIN [facility] Last Admin: 05/16/17 17:21 Dose: 40 mg Folic Acid (Folic Acid) 1 mg PO DAILY [facility] Last Admin: 05/17/17 11:14 Dose: 1 mg Heparin Sodium (Porcine) (Heparin) 5,000 units SC Q12 [facility] PRN Reason: Protocol Last Admin: 05/17/17 11:13 Dose: 5,000 units Hydralazine HCl (Apresoline) 25 mg PO QID [facility] Last Admin: 05/17/17 14:45 Dose: 25 mg Meropenem 500 mg/ Sodium (Chloride) 100 mls @ 100 mls/hr IVPB Q8 [facility] PRN Reason: Protocol Stop: 05/20/17 22:01 Last Admin: 05/17/17 06:10 Dose: 100 mls/hr Daptomycin 520 mg/ Sodium (Chloride) 100 mls @ 200 mls/hr IV QOTHERDAY [facility] Stop: 05/22/17 10:01 Last Admin: 05/17/17 11:13 Dose: 200 mls/hr Insulin Human Lispro (Humalog Low) 0 units SC ACHS [facility] PRN Reason: Protocol Last Admin: 05/17/17 12:45 Dose: 4 units Isosorbide Mononitrate (Imdur) 60 mg PO DAILY [facility] Last Admin: 05/17/17 11:13 Dose: 60 mg Losartan Potassium (Cozaar) 100 mg PO DAILY [facility] Last Admin: 05/17/17 11:14 Dose: 100 mg Metoprolol Tartrate (Lopressor) 25 mg PO BID [facility] Last Admin: 05/17/17 11:14 Dose: 25 mg Ondansetron HCl (Zofran Inj) 4 mg IVP Q4H PRN PRN Reason: Nausea/Vomiting Pantoprazole Sodium (Protonix Ec Tab) 40 mg PO ACB [facility] Last Admin: 05/17/17 08:26 Dose: 40 mg Pregabalin (Lyrica) 75 mg PO BID [facility] Last Admin: 05/17/17 11:13 Dose: 75 mg Thiamine HCl (Vitamin B1 Tab) 100 mg PO DAILY [facility] Last Admin: 05/17/17 11:13 Dose: 100 mg Vitamin B Complex/Vit C/Folic Acid (Nephro-Eleni) 1 tab PO 0800 [facility] Last Admin: 05/17/17 08:26 Dose: 1 tab - Labs Labs: 05/17/17 06:30 05/17/17 06:30 PT 13.4 Seconds (9.9-11.8) H 05/11/17 16:00 INR 1.24 (0.93-1.08) H 05/11/17 16:00 APTT 33.2 Seconds (23.7-30.8) H 05/11/17 16:00 Attending/Attestation - Attestation I have personally seen and examined this patient.: Yes I have fully participated in the care of the patient.: Yes I have reviewed all pertinent clinical information, including history, physical exam and plan: Yes Notes (Text): 05/17/17 15:00 attending note; Patient seen and examined with the resident. patient is a 56 year old male with a history of ESRD on HD, CAD, CABG, HTN, LA, DM-2, peripheral neuropathy, history of falls, history of CVA, and GI bleed who is being admitted for evaluation of generalized weakness fever due to HCAP vs UTI. CT chest showed possible septic emboli vs abscess collections vs necrotic mets, mediastinal lymph nodes. Plan for lung biopsy today. Continue meropenem. Continue imdur, statin, protonix, thiamine, mvi and folate. patient had fevers and chills during hemodialysis yesterday. Blood culture sent.follow-up results. He was explained about the diagnosis and work up and explained the need for antibiotics. case discussed with ID and nephrology in detail. Upon discharge patient will be followed by LUZMA Mack.
[2017-05-16] MEDS: Meropenem 500 MG in Sodium Chloride 0.9% 100 ML IVPB SCH ×2 (14:06→22:15)
--- NOTE | 2017-05-16 14:32 | CP.PCM.PN ---
Subjective - Date & Time of Evaluation Date of Evaluation: 05/16/17 Time of Evaluation: 12:50 - Subjective Subjective: Comfortable in bed, not in distress, afebrile. Patient is wanting to go home and now refusing Permcath access for dialysis. Objective - Vital Signs/Intake and Output Vital Signs (last 24 hours): Temp Pulse Resp BP Pulse Ox 97.5 F L 79 20 175/78 H 98 05/16/17 06:00 05/16/17 06:00 05/16/17 06:00 05/16/17 06:00 05/16/17 06:00 - Medications Medications: Current Medications Acetaminophen (Tylenol 325mg Tab) 650 mg PO Q4H PRN PRN Reason: Fever >100.4 F Last Admin: 05/14/17 18:37 Dose: 650 mg Albuterol/Ipratropium (Duoneb 3 Mg/0.5 Mg (3 Ml) Ud) 3 ml IH [id number] [facility] Last Admin: 05/16/17 08:18 Dose: Not Given Albuterol/Ipratropium (Duoneb 3 Mg/0.5 Mg (3 Ml) Ud) 3 ml IH Q2H PRN PRN Reason: Shortness of Breath Aspirin (Ecotrin) 81 mg PO DAILY [facility] Last Admin: 05/15/17 16:57 Dose: Not Given Atorvastatin Calcium (Lipitor) 40 mg PO DIN [facility] Last Admin: 05/15/17 16:58 Dose: Not Given Daptomycin (Cubicin) 520 mg 6 mg/kg (520 mg) IV QOTHERDAY [facility] PRN Reason: Protocol Stop: 05/22/17 10:01 Famotidine (Pepcid) 20 mg PO DAILY [facility] Last Admin: 05/15/17 16:58 Dose: Not Given Folic Acid (Folic Acid) 1 mg PO DAILY [facility] Last Admin: 05/15/17 16:57 Dose: Not Given Heparin Sodium (Porcine) (Heparin) 5,000 units SC Q12 [facility] PRN Reason: Protocol Last Admin: 05/15/17 21:16 Dose: 5,000 units Hydralazine HCl (Apresoline) 25 mg PO TID [facility] Last Admin: 05/15/17 17:57 Dose: 25 mg Meropenem 500 mg/ Sodium (Chloride) 100 mls @ 100 mls/hr IVPB Q8 [facility] PRN Reason: Protocol Stop: 05/20/17 22:01 Last Admin: 05/15/17 21:17 Dose: 100 mls/hr Insulin Human Lispro (Humalog Low) 0 units SC ACHS [facility] PRN Reason: Protocol Last Admin: 05/15/17 23:07 Dose: 3 units Isosorbide Mononitrate (Imdur) 60 mg PO DAILY [facility] Last Admin: 05/15/17 17:58 Dose: 60 mg Losartan Potassium (Cozaar) 100 mg PO DAILY [facility] Last Admin: 05/15/17 17:57 Dose: 100 mg Metoprolol Tartrate (Lopressor) 25 mg PO BID [facility] Last Admin: 05/15/17 17:58 Dose: 25 mg Ondansetron HCl (Zofran Inj) 4 mg IVP Q4H PRN PRN Reason: Nausea/Vomiting Pantoprazole Sodium (Protonix Ec Tab) 20 mg PO DAILY [facility] Last Admin: 05/15/17 16:58 Dose: Not Given Potassium Chloride (K-Dur 20 Meq Er Tab) 20 meq PO 0800 [facility] Last Admin: 05/15/17 08:22 Dose: 20 meq Pregabalin (Lyrica) 75 mg PO BID [facility] Last Admin: 05/15/17 17:58 Dose: Not Given Sucralfate (Carafate Tab) 1 gm PO DAILY [facility] Last Admin: 05/15/17 17:04 Dose: Not Given Thiamine HCl (Vitamin B1 Tab) 100 mg PO DAILY [facility] Last Admin: 05/15/17 16:10 Dose: Not Given Vitamin B Complex/Vit C/Folic Acid (Nephro-Eleni) 1 tab PO 0800 [facility] Last Admin: 05/15/17 08:23 Dose: 1 tab - Labs Labs: 05/16/17 04:30 05/16/17 04:30 PT 13.4 Seconds (9.9-11.8) H 05/11/17 16:00 INR 1.24 (0.93-1.08) H 05/11/17 16:00 APTT 33.2 Seconds (23.7-30.8) H 05/11/17 16:00 - Constitutional Appears: Non-toxic, No Acute Distress - Head Exam Head Exam: NORMAL INSPECTION - Neck Exam Neck Exam: absent: Meningismus - Respiratory Exam Respiratory Exam: Decreased Breath Sounds - Cardiovascular Exam Cardiovascular Exam: +S1, +S2 - GI/Abdominal Exam GI & Abdominal Exam: Soft. absent: Tenderness Assessment and Plan - Assessment and Plan (Free Text) Plan: Assessment Systemic Inflammatory response syndrome R/O sepsis from lung cavitary lesions, etiology to be determined R/O septic emboli (but repeated blood cx continue to be negative) history of sepsis due to Klebsiella bacteremia likely HD catheter infection S/P removal of tunneled Catheter history of C. diff. associated diarrhea DM HTN ESRD on HD CAD S/P CABG history of CVA history of rhabdomyolysis Plan continue Daptomycin and Merrem pending repeat blood cx from yesterday patient underwent CT-guided biopsy of cavitary lesions - follow up cultures, pathology, AFB and Mycobacterial cultures will monitor clinically
--- NOTE | 2017-05-16 16:09 | RAD ---
HISTORY: lt lung bx COMPARISON: Comparison made with CT-guided chest biopsy dated 05/16/2017 at 10:55 a.m.. Comparison also made with prior chest radiograph 05/11/[address] scan of the chest dated 06/12/2017. FINDINGS: No change right IJ dialysis catheter. LUNGS: Multiple varying sized rounded nodular and cavitary lung parenchymal lesions scattered throughout both lung davis of poorly seen on this study compared to high-resolution CT chest. No definitive pneumothorax. . Mild right basilar atelectasis. PLEURA: No as above. CARDIOVASCULAR: Sternotomy wires CABG clips and cardiomegaly stable. OSSEOUS STRUCTURES: No significant abnormalities. VISUALIZED UPPER ABDOMEN: Normal. OTHER FINDINGS: None. IMPRESSION: Multiple round nodular and cavitary parenchymal lesions poorly seen. No definitive evidence of pneumothorax. Followup chest x-ray or CT scan chest recommended if symptoms persist or small pneumothorax suspected clinically
--- NOTE | 2017-05-16 17:21 | PN ---
DATE: 05/16/2017 SUBJECTIVE: The patient is comfortable post biopsy of the lung density. PHYSICAL EXAMINATION: VITAL SIGNS: Blood pressure 153/85, heart rate in the 70s. NECK: Negative JVD. LUNGS: Without rales. HEART: Reveals S1, S2. EXTREMITIES: Without edema. LABORATORY: Hemoglobin is 9.2, white count is persistent at 19.8. Chemistries, glucose is 276. IMPRESSION: 1. Diabetes mellitus. 2. Pulmonary infection. 3. Need to rule out embolism. 4. End-stage renal disease. 5. Stable angina. 6. CAD. 7. History of coronary bypass surgery. PLAN: Given these findings, there is enough potential for possible emboli that we need to rule out vegetation in the valves. We will arrange for a ESTER which the patient is agreeable. I have discussed with Dr. Mcdermott and he will arrange for either tomorrow or . Yousif Fisher MD
--- NOTE | 2017-05-16 19:29 | CT ---
PROCEDURE: CT guided left apical lung biopsy. HISTORY: End-stage renal disease. Sepsis. Multiple cavitary nodules. Evaluate for septic emboli P PHYSICIAN(S): Yousif Cortés MD. TECHNIQUE: The relative risks and indications of the procedure were explained to the patient and consent obtained. The patient was placed prone on the CT scanner and preliminary images through the lung apices obtained. Conscious sedation and monitoring were provided throughout the procedure by a nurse. A 2 cm cavitary nodule at the left apex posteriorly was selected for biopsy.. A left posterior approach was selected and the area prepped and draped in the usual sterile fashion. 1% Xylocaine was used to anesthetize the skin and soft tissues. A 19 gauge guiding needle was advanced into the 2 cm cavitary nodule at the left apex. Its position was confirmed with CT. Using coaxial technique, multiple core biopsies were obtained. The postprocedure images show no evidence of large pneumothorax or significant hemorrhage.. IMPRESSION: 1. CT-guided left apical lung biopsy as described above. The specimen was sent for histology and microbiology
[2017-05-17] MEDS: Albuterol-Ipratrop 3 mg / 0.5 (3 ml) UD IH SCH ×4 (01:30→19:20)
[2017-05-17] MEDS: Meropenem 500 MG in Sodium Chloride 0.9% 100 ML IVPB SCH ×3 (06:10→21:36)
[2017-05-17 07:05] LABS: BASO # 0.02 K/mm3 (0.0-2.0); BASO % 0.1 % (0.0-3.0); EOS # 0.3 (0.0-0.7); EOS % 1.9 % (1.5-5.0); GRAN # 10.58 (1.4-6.5); GRAN % 79.4 % (50.0-68.0); HEMATOCRIT 27.4 % (42.0-52.0); LYMPH # 1.8 (1.2-3.4); LYMPH % 13.2 % (22.0-35.0); MEAN CELL VOLUME 84.8 fl (80.0-105.0); MEAN CORPUSCULAR HEMOGLOBIN 26.9 pg (25.0-35.0); MEAN CORPUSCULAR HGB CONC 31.8 g/dl (31.0-37.0); MEAN PLATELET VOLUME 11.8 fl (7.0-11.0); MONO # 0.7 (0.1-0.6); MONO % 5.4 % (1.0-6.0); RED CELL DISTRIBUTION WIDTH 17.5 % (11.5-14.5); WHITE BLOOD COUNT 13.3 10^3/ul (4.5-11.0)
[2017-05-17 07:21] LABS: ALB/GLOB RATIO 0.9 (1.1-1.8); BILIRUBIN,TOTAL 0.3 mg/dL (0.2-1.3); POTASSIUM 3.8 mmol/L (3.6-5.0); TOTAL PROTEIN 5.3 g/dL (5.8-8.3)
--- NOTE | 2017-05-17 08:19 | PN ---
DATE: 05/16/2017 CHIEF COMPLAINT: "I do not want dialysis with this catheter again." HPI and REVIEW OF SYSTEMS: Noted over night event. The patient threatened to sign out AMA this morning, later he agreed to stay. The patient underwent CT-guided biopsy of his lung lesion today by the interventional radiology. He does feel better today. He denied any shortness of breath, nausea and vomiting, he denied any stomach pain. He says he felt really terrible during dialysis yesterday and will not continue in dialysis through the same catheter. He is asking them to change the catheter in the arm. PHYSICAL EXAMINATION GENERAL: The patient is alert, awake and oriented x3. Moving all 4 extremities. No focal deficits. VITAL SIGNS: Stable. Temperature is afebrile, pulse 77, blood pressure 150/85, oxygen saturation 97%, respirations 18. LUNGS: Bilateral vesicular breath sounds, clear anteriorly. CARDIOVASCULAR: Normal without any gallop or rub. ABDOMEN: Soft, nontender. No organomegaly. EXTREMITIES: No edema. The patient has forefoot amputation. PSYCHIATRIC: The patient is cooperative, has flat affect at this time. The patient is anxious about being in the hospital. URINE OUTPUT: 300 mL yesterday. His culture from yesterday is still pending. Prior blood cultures have been negative. LABORATORY DATA: Shows hemoglobin 9.2, white blood cell count 19.8, platelet count is 216. Sodium 132, potassium 3.6, creatinine 4.2, glucose 218. CURRENT MEDICATIONS: Reviewed. The patient remains on Tylenol, nebulizations, aspirin, Lipitor, daptomycin, Pepcid, folic acid, subcu heparin, hydralazine 25 t.i.d., Imdur 60 daily, losartan 100 mg daily, meropenem 500 q. 8., Lopressor 25 b.i.d., Ppi 20 mg daily, Lyrica 75 b.i.d., Carafate 1 g daily, thiamine 100 mg daily, D vitamin daily. ASSESSMENT: Overall condition is critical. The patient vital septic emboli in the lungs. He has had hemodialysis via Perm-A-Cath. History of diabetic chronic kidney disease and hypertensive chronic kidney disease, anemia, hyperphosphatemia, secondary hyperparathyroidism, hypertension, esophageal ulceration, gastroparesis, status post CABG. RECOMMENDATIONS: Follow the blood cultures. The patient planned for dialysis tomorrow but he is refusing unless the catheter is changed. I advised the patient if the blood culture remains negative, changing the catheter will be unnecessary procedure. The patient is not agreeing with that. He wants his catheter to be changed. I also advised the patient considering current sepsis,it is not the right time to create a fistula at this time. The fistula should be created in the arm once infections have resolved. Then follow the biopsy results. I will also order ANCA and anti-GBM antibody. Antibiotics as per the ID. Again, consider discontinuing Macias at the earliest. Discussed with the primary team. I can give potassium supplementation on as needed basis. Blood pressure under better control at this time, discussed with the primary team as well. Sancho Garrett MD
[2017-05-17] MEDS: Insulin Lispro (humaLOG) LOW Coverage SC SCH ×4 (08:26→22:00)
[2017-05-17] MEDS: Pantoprazole 40 mg EC Tab PO SCH (08:26)
[2017-05-17] MEDS: Multivitamin Vitamin B Complex (Nephro-Vite) Tab PO SCH (08:26)
[2017-05-17] MEDS ORDERED: DAPTOmycin 500 mg Inj (Cubicin) IV SCH (10:00)
--- NOTE | 2017-05-17 10:44 | CP.PCM.PN ---
<Kayleigh Martinez - Last Filed: 05/17/17 13:41> Subjective - Date & Time of Evaluation Date of Evaluation: 05/17/17 Time of Evaluation: 10:44 - Subjective Subjective: Kayleigh Martinez DO, PGY-1, Hospitalist Service Patient seen and examined at bedside. Patient is refusing dialysis. Nurse reports no events overnight. Objective - Vital Signs/Intake and Output Vital Signs (last 24 hours): Temp Pulse Resp BP Pulse Ox 97.4 F L 84 19 167/85 H 95 05/17/17 06:00 05/17/17 06:00 05/17/17 06:00 05/17/17 06:00 05/17/17 06:00 Intake and Output: 05/17/17 05/17/17 06:59 18:59 Intake Total 520 Output Total 600 Balance -80 - Medications Medications: Current Medications Acetaminophen (Tylenol 325mg Tab) 650 mg PO Q4H PRN PRN Reason: Fever >100.4 F Last Admin: 05/14/17 18:37 Dose: 650 mg Albuterol/Ipratropium (Duoneb 3 Mg/0.5 Mg (3 Ml) Ud) 3 ml IH [id number] [facility] Last Admin: 05/17/17 08:01 Dose: Not Given Albuterol/Ipratropium (Duoneb 3 Mg/0.5 Mg (3 Ml) Ud) 3 ml IH Q2H PRN PRN Reason: Shortness of Breath Aspirin (Ecotrin) 81 mg PO DAILY [facility] Last Admin: 05/16/17 09:34 Dose: 81 mg Atorvastatin Calcium (Lipitor) 40 mg PO DIN [facility] Last Admin: 05/16/17 17:21 Dose: 40 mg Folic Acid (Folic Acid) 1 mg PO DAILY [facility] Last Admin: 05/16/17 09:34 Dose: 1 mg Heparin Sodium (Porcine) (Heparin) 5,000 units SC Q12 [facility] PRN Reason: Protocol Last Admin: 05/16/17 22:14 Dose: 5,000 units Hydralazine HCl (Apresoline) 25 mg PO TID [facility] Last Admin: 05/16/17 17:21 Dose: 25 mg Meropenem 500 mg/ Sodium (Chloride) 100 mls @ 100 mls/hr IVPB Q8 [facility] PRN Reason: Protocol Stop: 05/20/17 22:01 Last Admin: 05/17/17 06:10 Dose: 100 mls/hr Daptomycin 520 mg/ Sodium (Chloride) 100 mls @ 200 mls/hr IV QOTHERDAY [facility] Stop: 05/22/17 10:01 Insulin Human Lispro (Humalog Low) 0 units SC ACHS [facility] PRN Reason: Protocol Last Admin: 05/17/17 08:26 Dose: 3 units Isosorbide Mononitrate (Imdur) 60 mg PO DAILY [facility] Last Admin: 05/16/17 09:35 Dose: 60 mg Losartan Potassium (Cozaar) 100 mg PO DAILY [facility] Last Admin: 05/16/17 09:35 Dose: 100 mg Metoprolol Tartrate (Lopressor) 25 mg PO BID [facility] Last Admin: 05/16/17 17:22 Dose: 25 mg Ondansetron HCl (Zofran Inj) 4 mg IVP Q4H PRN PRN Reason: Nausea/Vomiting Pantoprazole Sodium (Protonix Ec Tab) 40 mg PO ACB [facility] Last Admin: 05/17/17 08:26 Dose: 40 mg Pregabalin (Lyrica) 75 mg PO BID [facility] Last Admin: 05/16/17 17:22 Dose: 75 mg Thiamine HCl (Vitamin B1 Tab) 100 mg PO DAILY [facility] Last Admin: 05/16/17 09:34 Dose: 100 mg Vitamin B Complex/Vit C/Folic Acid (Nephro-Eleni) 1 tab PO 0800 [facility] Last Admin: 05/17/17 08:26 Dose: 1 tab - Labs Labs: 05/17/17 06:30 05/17/17 06:30 PT 13.4 Seconds (9.9-11.8) H 05/11/17 16:00 INR 1.24 (0.93-1.08) H 05/11/17 16:00 APTT 33.2 Seconds (23.7-30.8) H 05/11/17 16:00 - Constitutional Appears: Non-toxic, No Acute Distress - Head Exam Head Exam: ATRAUMATIC, NORMOCEPHALIC - Eye Exam Eye Exam: EOMI, Normal appearance - ENT Exam ENT Exam: Mucous Membranes Moist, Normal Oropharynx - Neck Exam Neck Exam: Normal Inspection - Respiratory Exam Respiratory Exam: Clear to Ausculation Bilateral, NORMAL BREATHING PATTERN - Cardiovascular Exam Cardiovascular Exam: RRR, +S1, +S2 - GI/Abdominal Exam GI & Abdominal Exam: Soft, Normal Bowel Sounds. absent: Rebound - Extremities Exam Extremities Exam: Normal Capillary Refill. absent: Pedal Edema Additional comments: right forefoot amputated - Neurological Exam Neurological Exam: Alert, Awake, CN II-XII Intact, Oriented x3 - Psychiatric Exam Psychiatric exam: Normal Affect, Normal Mood - Skin Additional comments: Patient refused examination of his back Assessment and Plan - Assessment and Plan (Free Text) Assessment: Patient is a 56 year old male with a past medical history of ESRD on HD, CABG, HTN, OH(s), DM, peripheral neuropathy, and history of GI bleed who was admitted for generalized weakness and fever. Patient was found to have multiple lesions in the lungs, likely secondary to septic emboli from permacath. Patient has been develop fevers and chills during hemodialysis. Blood cultures resulted positive for gram negative rods. He is currently on Daptomycin and Merropenem. Patient is 1 day s/p lung biopsy oftissue performed, 05/16/17. ESTER ordered per cardiology to assess for source of septic emboli. Plan: 1) Bacteremia with septic emboli to lung, likely secondary to infected permacath. - Preliminary blood cultures from 05/13 and 05/15 are both positive for gram negative rods. - Transesophageal Echocardiogram ordered. - Patient is on Daptomycin and Merropenem - Lung biopsy performed of SIGIFREDO lesion, complete results of this specimen are pending - Infectious Disease is on the case, Dr. Green and Dr. See 2) ESRD - Dr. Garrett, nephrology is on the case - Patient scheduled for HD and Monday of this week 3) Hypertension - Continue home Losartan, Metoprolol, and Hydralazine with holding parameters 4) CAD - Isosorbide mononitrate - Statin 5) DM II - ISS - accuchecks ACHS 6) GI prophylaxis - Pantoprazole 40 mg 7) Peripheral Neuropathy -Continue with Pregabalin 75 mg BID 8) DVT prophylaxis - Heparin 5,000 units SC q12h 9) Palliative Care/Advanced Directives - Yesika Moulton consulted 10) Depression - Psychiatry consulted FEN: HHD, Low carb diet Disposition: Guarded <Lauren Godwin - Last Filed: 05/17/17 16:39> Objective - Vital Signs/Intake and Output Vital Signs (last 24 hours): Temp Pulse Resp BP Pulse Ox 97.4 F L 70 19 145/80 95 05/17/17 06:00 05/17/17 14:45 05/17/17 06:00 05/17/17 14:45 05/17/17 06:00 Intake and Output: 05/17/17 05/17/17 06:59 18:59 Intake Total 520 Output Total 600 Balance -80 - Medications Medications: Current Medications Acetaminophen (Tylenol 325mg Tab) 650 mg PO Q4H PRN PRN Reason: Fever >100.4 F Last Admin: 05/14/17 18:37 Dose: 650 mg Albuterol/Ipratropium (Duoneb 3 Mg/0.5 Mg (3 Ml) Ud) 3 ml IH [id number] [facility] Last Admin: 05/17/17 13:55 Dose: Not Given Albuterol/Ipratropium (Duoneb 3 Mg/0.5 Mg (3 Ml) Ud) 3 ml IH Q2H PRN PRN Reason: Shortness of Breath Aspirin (Ecotrin) 81 mg PO DAILY [facility] Last Admin: 05/17/17 11:13 Dose: 81 mg Atorvastatin Calcium (Lipitor) 40 mg PO DIN [facility] Last Admin: 05/16/17 17:21 Dose: 40 mg Folic Acid (Folic Acid) 1 mg PO DAILY [facility] Last Admin: 05/17/17 11:14 Dose: 1 mg Heparin Sodium (Porcine) (Heparin) 5,000 units SC Q12 [facility] PRN Reason: Protocol Last Admin: 05/17/17 11:13 Dose: 5,000 units Hydralazine HCl (Apresoline) 25 mg PO QID [facility] Last Admin: 05/17/17 14:45 Dose: 25 mg Meropenem 500 mg/ Sodium (Chloride) 100 mls @ 100 mls/hr IVPB Q8 [facility] PRN Reason: Protocol Stop: 05/20/17 22:01 Last Admin: 05/17/17 06:10 Dose: 100 mls/hr Daptomycin 520 mg/ Sodium (Chloride) 100 mls @ 200 mls/hr IV QOTHERDAY [facility] Stop: 05/22/17 10:01 Last Admin: 05/17/17 11:13 Dose: 200 mls/hr Insulin Human Lispro (Humalog Low) 0 units SC ACHS [facility] PRN Reason: Protocol Last Admin: 05/17/17 12:45 Dose: 4 units Isosorbide Mononitrate (Imdur) 60 mg PO DAILY [facility] Last Admin: 05/17/17 11:13 Dose: 60 mg Losartan Potassium (Cozaar) 100 mg PO DAILY [facility] Last Admin: 05/17/17 11:14 Dose: 100 mg Metoprolol Tartrate (Lopressor) 25 mg PO BID [facility] Last Admin: 05/17/17 11:14 Dose: 25 mg Ondansetron HCl (Zofran Inj) 4 mg IVP Q4H PRN PRN Reason: Nausea/Vomiting Pantoprazole Sodium (Protonix Ec Tab) 40 mg PO ACB [facility] Last Admin: 05/17/17 08:26 Dose: 40 mg Pregabalin (Lyrica) 75 mg PO BID [facility] Last Admin: 05/17/17 11:13 Dose: 75 mg Thiamine HCl (Vitamin B1 Tab) 100 mg PO DAILY [facility] Last Admin: 05/17/17 11:13 Dose: 100 mg Vitamin B Complex/Vit C/Folic Acid (Nephro-Eleni) 1 tab PO 0800 [facility] Last Admin: 05/17/17 08:26 Dose: 1 tab - Labs Labs: 05/17/17 06:30 05/17/17 06:30 PT 13.4 Seconds (9.9-11.8) H 05/11/17 16:00 INR 1.24 (0.93-1.08) H 05/11/17 16:00 APTT 33.2 Seconds (23.7-30.8) H 05/11/17 16:00 Attending/Attestation - Attestation I have personally seen and examined this patient.: Yes I have fully participated in the care of the patient.: Yes I have reviewed all pertinent clinical information, including history, physical exam and plan: Yes Notes (Text): 05/17/17 16:03 attending note; Patient seen and examined with the resident. patient is a 56 year old male with a history of ESRD on HD, CAD, CABG, HTN, OH, DM-2, peripheral neuropathy, history of falls, history of CVA, and GI bleed who is being admitted for evaluation of generalized weakness fever due to HCAP vs UTI. CT chest showed possible septic emboli vs abscess collections vs necrotic mets, mediastinal lymph nodes. s/p lung biopsy. Blood culture is positive for gram-negative rods. identification pending. Continue meropenem on daptomycin. dialysis per nephrology. patient has Macias catheter. Will try voiding trial. Continue by mouth Flomax. Needs outpatient urology follow-up. plan for ESTER tomorrow. Case discussed with ID in detail.
--- NOTE | 2017-05-17 10:47 | PN ---
DATE: 05/17/2017 SUBJECTIVE: The patient is comfortable. OBJECTIVE: VITAL SIGNS: Blood pressure is 167/85. The patient is afebrile. NECK: Negative JVD. LUNGS: Without rales. HEART: S1, S2. EXTREMITIES: Without edema. LABORATORY DATA: White count is down to 13,000; hemoglobin is 8.7. BUN and creatinine is 36 and 51. Microbiology reveals negative blood cultures. IMPRESSION: 1. The patient is for ESTER in the morning to rule out emboli from valve. 2. His diabetes and his angina are stable. Yousif Fisher MD
[2017-05-17] MEDS ORDERED: Barium Sulfate Susp 2.1% w/v, 2.0% w/w 450 mL Bottle PO ONE (14:15)
--- NOTE | 2017-05-17 14:16 | CP.PCM.PN ---
Subjective - Date & Time of Evaluation Date of Evaluation: 05/17/17 Time of Evaluation: 10:35 - Subjective Subjective: Comfortable in bed, not in distress, no fevers, does not want his Permacath accessed. Objective - Vital Signs/Intake and Output Vital Signs (last 24 hours): Temp Pulse Resp BP Pulse Ox 97.4 F L 84 19 167/85 H 95 05/17/17 06:00 05/17/17 06:00 05/17/17 06:00 05/17/17 06:00 05/17/17 06:00 Intake and Output: 05/17/17 05/17/17 06:59 18:59 Intake Total 520 Output Total 600 Balance -80 - Medications Medications: Current Medications Acetaminophen (Tylenol 325mg Tab) 650 mg PO Q4H PRN PRN Reason: Fever >100.4 F Last Admin: 05/14/17 18:37 Dose: 650 mg Albuterol/Ipratropium (Duoneb 3 Mg/0.5 Mg (3 Ml) Ud) 3 ml IH [id number] [facility] Last Admin: 05/17/17 08:01 Dose: Not Given Albuterol/Ipratropium (Duoneb 3 Mg/0.5 Mg (3 Ml) Ud) 3 ml IH Q2H PRN PRN Reason: Shortness of Breath Aspirin (Ecotrin) 81 mg PO DAILY [facility] Last Admin: 05/16/17 09:34 Dose: 81 mg Atorvastatin Calcium (Lipitor) 40 mg PO DIN [facility] Last Admin: 05/16/17 17:21 Dose: 40 mg Daptomycin (Cubicin) 520 mg 6 mg/kg (520 mg) IV QOTHERDAY [facility] PRN Reason: Protocol Stop: 05/22/17 10:01 Folic Acid (Folic Acid) 1 mg PO DAILY [facility] Last Admin: 05/16/17 09:34 Dose: 1 mg Heparin Sodium (Porcine) (Heparin) 5,000 units SC Q12 [facility] PRN Reason: Protocol Last Admin: 05/16/17 22:14 Dose: 5,000 units Hydralazine HCl (Apresoline) 25 mg PO TID [facility] Last Admin: 05/16/17 17:21 Dose: 25 mg Meropenem 500 mg/ Sodium (Chloride) 100 mls @ 100 mls/hr IVPB Q8 [facility] PRN Reason: Protocol Stop: 05/20/17 22:01 Last Admin: 05/17/17 06:10 Dose: 100 mls/hr Insulin Human Lispro (Humalog Low) 0 units SC ACHS [facility] PRN Reason: Protocol Last Admin: 05/17/17 08:26 Dose: 3 units Isosorbide Mononitrate (Imdur) 60 mg PO DAILY [facility] Last Admin: 05/16/17 09:35 Dose: 60 mg Losartan Potassium (Cozaar) 100 mg PO DAILY [facility] Last Admin: 05/16/17 09:35 Dose: 100 mg Metoprolol Tartrate (Lopressor) 25 mg PO BID [facility] Last Admin: 05/16/17 17:22 Dose: 25 mg Ondansetron HCl (Zofran Inj) 4 mg IVP Q4H PRN PRN Reason: Nausea/Vomiting Pantoprazole Sodium (Protonix Ec Tab) 40 mg PO ACB [facility] Last Admin: 05/17/17 08:26 Dose: 40 mg Pregabalin (Lyrica) 75 mg PO BID [facility] Last Admin: 05/16/17 17:22 Dose: 75 mg Thiamine HCl (Vitamin B1 Tab) 100 mg PO DAILY [facility] Last Admin: 05/16/17 09:34 Dose: 100 mg Vitamin B Complex/Vit C/Folic Acid (Nephro-Eleni) 1 tab PO 0800 [facility] Last Admin: 05/17/17 08:26 Dose: 1 tab - Labs Labs: 05/17/17 06:30 05/17/17 06:30 PT 13.4 Seconds (9.9-11.8) H 05/11/17 16:00 INR 1.24 (0.93-1.08) H 05/11/17 16:00 APTT 33.2 Seconds (23.7-30.8) H 05/11/17 16:00 - Constitutional Appears: Non-toxic, No Acute Distress - Head Exam Head Exam: NORMAL INSPECTION - ENT Exam ENT Exam: Mucous Membranes Moist - Neck Exam Neck Exam: absent: Meningismus - Respiratory Exam Respiratory Exam: Decreased Breath Sounds Additional comments: right anterior chest wall Permacath in place - Cardiovascular Exam Cardiovascular Exam: +S1, +S2 - GI/Abdominal Exam GI & Abdominal Exam: Soft. absent: Tenderness Assessment and Plan - Assessment and Plan (Free Text) Plan: Assessment sepsis due to persistent gram negative bacilli bacteremia, with lung cavitary lesions, R/O septic emboli R/O intra-abdominal infection R/O Permacath infection R/O endocarditis history of sepsis due to Klebsiella bacteremia likely HD catheter infection S/P removal of tunneled Catheter history of C. diff. associated diarrhea DM HTN ESRD on HD CAD S/P CABG history of CVA history of rhabdomyolysis Plan continue Daptomycin and Merrem pending identification and sensitivities of the gram negative bacilli in the blood; will repeat blood cx tomorrow patient underwent CT-guided biopsy of cavitary lesions - follow up cultures, pathology, AFB and Mycobacterial cultures would recommend ESTER when feasible will get Doppler U/S of Permacath site to rule out DVT Will get CT scan of the abdomen and pelvis as well discussed with Dr. Godwin will continue to monitor clinically
--- NOTE | 2017-05-17 16:11 | CP.PCM.PCO ---
Physician Communication Note - Physician Communication Note Physician Communication Note: d/w , consult was canceled, advised reconsult as needed
--- NOTE | 2017-05-17 16:58 | US ---
PROCEDURE: Right upper extremity venous US CLINICAL HISTORY: Arm pain and swelling Evaluate for deep venous thrombosis. PHYSICIAN(S): Yousif Cortés M.D FINDINGS: The visualized rightinternal jugular vein is sonographically normal and compressible. No evidence of obstruction or thrombus is seen. The visualized segments of the right subclavian vein are patent with normal waveforms. No sonographic evidence of obstruction or thrombosis is seen. The visualized deep venous system of the proximal right upper extremity is sonographically normal and compressible. IMPRESSION: 1. No sonographic evidence for deep venous thrombosis in the visualized segments of the right upper extremity.
--- NOTE | 2017-05-17 20:12 | CT ---
EXAM: CT Abdomen and Pelvis With Intravenous Contrast EXAM DATE/TIME: 05/17/2017 2:12 PM CLINICAL HISTORY: 56 years old, male; Signs and symptoms; Other: R/O intra-abdominal infection; Additional info: Rule out intra-abdominal infection TECHNIQUE: Axial computed tomography images of the abdomen and pelvis with intravenous contrast. All CT scans at this facility use one or more dose reduction techniques, viz.: automated exposure control; ma/kV adjustment per patient size (including targeted exams where dose is matched to indication; i.e. head); or iterative reconstruction technique. Coronal and sagittal reformatted images were created and reviewed. CONTRAST: 50 mL of omni 240 administered intravenously. COMPARISON: CT - ABD PELVIS PO CONTRAST ONLY 05/12/2017 12:05:01 PM FINDINGS: Lower thorax: The heart is enlarged. There is streak artifact from central lines. There are coronary artery calcifications. There is a moderate right pleural effusion. There is a small left pleural effusion. There is interstitial and airspace disease in the lower lobes. There is consolidation of the medial portion of the right middle lobe with air bronchograms. There are multiple small right middle lobe nodules. There is a cavitary nodule in the right lower lobe. There is a small hiatal hernia. ABDOMEN: Liver: unremarkable Gallbladder and bile ducts: Gallbladder is surgically absent. Common duct is prominent. Pancreas: Pancreas is atrophic. Spleen: unremarkable Adrenals: unremarkable Kidneys and ureters: unremarkable Stomach and bowel: Stomach is distended with a large amount of ingested material and small amount of contrast. Rotation is normal. There is no obstruction. There is contrast throughout the small bowel. Ileocecal region is unremarkable.Appendix and terminal ileum are unremarkable. There is moderate stool throughout the colon. Appendix: See stomach and bowel PELVIS: Bladder: Bladder is almost completely empty. There is a Macias catheter. There is mild bladder wall thickening. There is air in the bladder. Reproductive: Seminal vesicles and prostate are unremarkable. ABDOMEN and PELVIS: Intraperitoneal space: There is no free air or free fluid. Bones/joints: There are postsurgical changes of median sternotomy. Soft tissues: unremarkable Vasculature: There are vascular calcifications. Lymph nodes: There is shotty adenopathy. IMPRESSION: Multiple pulmonary nodules, similar finding seen on the prior study 05/12/17; small bilateral pleural effusions right greater the left with interstitial and airspace disease at the lung bases; increasing airspace disease in the anteromedial right middle lobe; no acute solid visceral or bowel abnormality \Additional findings as described above.
[2017-05-18] MEDS: Albuterol-Ipratrop 3 mg / 0.5 (3 ml) UD IH SCH ×4 (01:17→19:38)
[2017-05-18] MEDS: Meropenem 500 MG in Sodium Chloride 0.9% 100 ML IVPB SCH (05:29)
[2017-05-18 07:13] LABS: BASO # 0.03 K/mm3 (0.0-2.0); BASO % 0.3 % (0.0-3.0); EOS # 0.2 (0.0-0.7); EOS % 2.3 % (1.5-5.0); GRAN # 7.41 (1.4-6.5); GRAN % 74.8 % (50.0-68.0); HEMATOCRIT 28.6 % (42.0-52.0); LYMPH # 1.7 (1.2-3.4); LYMPH % 17.1 % (22.0-35.0); MEAN CELL VOLUME 83.6 fl (80.0-105.0); MEAN CORPUSCULAR HEMOGLOBIN 26.6 pg (25.0-35.0); MEAN CORPUSCULAR HGB CONC 31.8 g/dl (31.0-37.0); MONO # 0.5 (0.1-0.6); MONO % 5.5 % (1.0-6.0); RED CELL DISTRIBUTION WIDTH 17.2 % (11.5-14.5); WHITE BLOOD COUNT 9.9 10^3/ul (4.5-11.0)
[2017-05-18 07:14] LABS: ALB/GLOB RATIO 0.8 (1.1-1.8); BILIRUBIN,TOTAL 0.4 mg/dL (0.2-1.3); CALCIUM 8.3 mg/dL (8.4-10.5); POTASSIUM 3.8 mmol/L (3.6-5.0); TOTAL PROTEIN 5.7 g/dL (5.8-8.3)
[2017-05-18] MEDS: Pantoprazole 40 mg EC Tab PO SCH (08:03)
[2017-05-18] MEDS: Insulin Lispro (humaLOG) LOW Coverage SC SCH ×4 (08:03→22:20)
[2017-05-18] MEDS: Multivitamin Vitamin B Complex (Nephro-Vite) Tab PO SCH (08:03)
--- NOTE | 2017-05-18 08:10 | CP.PCM.PN ---
<Kayleigh Martinez - Last Filed: 05/18/17 16:04> Subjective - Date & Time of Evaluation Date of Evaluation: 05/18/17 Time of Evaluation: 08:30 - Subjective Subjective: Kayleigh Martinez DO, PGY-1, Hospitalist Service Patient seen and examined at bedside. Discussed with patient his current options. Patient wants what the doctors think is best. Objective - Vital Signs/Intake and Output Vital Signs (last 24 hours): Temp Pulse Resp BP Pulse Ox 98.2 F 82 20 157/90 H 93 L 05/18/17 05:38 05/18/17 05:38 05/18/17 05:38 05/18/17 05:38 05/18/17 05:38 Intake and Output: 05/18/17 05/18/17 06:59 18:59 Intake Total 200 Output Total 1000 Balance -800 - Medications Medications: Current Medications Acetaminophen (Tylenol 325mg Tab) 650 mg PO Q4H PRN PRN Reason: Fever >100.4 F Last Admin: 05/14/17 18:37 Dose: 650 mg Albuterol/Ipratropium (Duoneb 3 Mg/0.5 Mg (3 Ml) Ud) 3 ml IH [id number] [facility] Last Admin: 05/18/17 07:41 Dose: Not Given Amlodipine Besylate (Norvasc) 10 mg PO DAILY [facility] Aspirin (Ecotrin) 81 mg PO DAILY [facility] Last Admin: 05/17/17 11:13 Dose: 81 mg Atorvastatin Calcium (Lipitor) 40 mg PO DIN [facility] Last Admin: 05/17/17 17:31 Dose: 40 mg Folic Acid (Folic Acid) 1 mg PO DAILY [facility] Last Admin: 05/17/17 11:14 Dose: 1 mg Heparin Sodium (Porcine) (Heparin) 5,000 units SC Q12 [facility] PRN Reason: Protocol Last Admin: 05/17/17 21:34 Dose: 5,000 units Meropenem 500 mg/ Sodium (Chloride) 100 mls @ 100 mls/hr IVPB Q8 [facility] PRN Reason: Protocol Stop: 05/20/17 22:01 Last Admin: 05/18/17 05:29 Dose: 100 mls/hr Daptomycin 520 mg/ Sodium (Chloride) 100 mls @ 200 mls/hr IV QOTHERDAY [facility] Stop: 05/22/17 10:01 Last Admin: 05/17/17 11:13 Dose: 200 mls/hr Insulin Human Lispro (Humalog Low) 0 units SC ACHS [facility] PRN Reason: Protocol Last Admin: 05/18/17 08:03 Dose: Not Given Isosorbide Mononitrate (Imdur) 60 mg PO DAILY [facility] Last Admin: 05/17/17 11:13 Dose: 60 mg Losartan Potassium (Cozaar) 100 mg PO DAILY [facility] Last Admin: 05/17/17 11:14 Dose: 100 mg Metoprolol Tartrate (Lopressor) 50 mg PO BID [facility] Ondansetron HCl (Zofran Inj) 4 mg IVP Q4H PRN PRN Reason: Nausea/Vomiting Pantoprazole Sodium (Protonix Ec Tab) 40 mg PO ACB [facility] Last Admin: 05/18/17 08:03 Dose: Not Given Pregabalin (Lyrica) 75 mg PO BID [facility] Last Admin: 05/17/17 17:31 Dose: 75 mg Tamsulosin HCl (Flomax) 0.4 mg PO DAILY [facility] Last Admin: 05/17/17 19:24 Dose: 0.4 mg Thiamine HCl (Vitamin B1 Tab) 100 mg PO DAILY [facility] Last Admin: 05/17/17 11:13 Dose: 100 mg Vitamin B Complex/Vit C/Folic Acid (Nephro-Eleni) 1 tab PO 0800 [facility] Last Admin: 05/18/17 08:03 Dose: Not Given - Labs Labs: 05/18/17 06:55 05/18/17 06:55 PT 13.4 Seconds (9.9-11.8) H 05/11/17 16:00 INR 1.24 (0.93-1.08) H 05/11/17 16:00 APTT 33.2 Seconds (23.7-30.8) H 05/11/17 16:00 - Constitutional Appears: Toxic, No Acute Distress - Head Exam Head Exam: ATRAUMATIC, NORMOCEPHALIC - Eye Exam Eye Exam: Normal appearance, PERRL - ENT Exam ENT Exam: Mucous Membranes Moist, Normal Oropharynx - Neck Exam Neck Exam: Normal Inspection. absent: Thyromegaly - Respiratory Exam Respiratory Exam: Clear to Ausculation Bilateral, NORMAL BREATHING PATTERN - Cardiovascular Exam Cardiovascular Exam: RRR, +S1, +S2 - GI/Abdominal Exam GI & Abdominal Exam: Soft, Normal Bowel Sounds. absent: Guarding, Rebound - Extremities Exam Extremities Exam: Normal Capillary Refill, Normal Inspection. absent: Pedal Edema - Back Exam Back Exam: NORMAL INSPECTION. absent: CVA tenderness (L), CVA tenderness (R) - Neurological Exam Neurological Exam: Alert, CN II-XII Intact, Oriented x3 - Psychiatric Exam Psychiatric exam: Normal Affect, Normal Mood - Skin Skin Exam: Dry, Intact, Normal Color, Warm Assessment and Plan - Assessment and Plan (Free Text) Assessment: Patient is a 56 year old male with a past medical history of ESRD on HD, CABG, HTN, NV(s), DM, peripheral neuropathy, and history of GI bleed who was admitted for generalized weakness and fever. Patient was found to have multiple lesions in the lungs, likely secondary to septic emboli from permacath. Patient had been developing fevers and chills during hemodialysis. Blood cultures and Left Upper Lobe lesion both grew Pseudomonas Aeruginosa. Patient switched from Daptomycin and Merropenem to just Cefepime. Patient scheduled to remove Perma- cath today. Pateint is now DNR/DNI. Plan: 1) Pseudomonas bacteremia with septic emboli likely secondary to infected perma- cath. - Bacteremia with septic emboli to lung, likely secondary to infected permacath. - Blood cultures x2 confirm Pseudomonas aeruginosa with sensitivity and specificity - Transesophageal Echocardiogram concludes EF-50%, intact intra-atrial septum by color flow, mild plaque in the descending aorta, catheter noted in Right Atrium, no vegetations noted, and Mild Aortic Regurgitation - Patient is on Cefepime, off of Daptomycin and Merropenem - Lung biopsy of SIGIFREDO lesion grew P. aeruginosa with sensitivity and specificity - Infectious Disease is on the case, Dr. See, appreciate recommendations -Patient scheduled for removal or permacath. 2) ESRD - Dr. Garrett, nephrology is on the case - Patient refused dialysis this past Monday, will follow up with Nephrology recommendations 3) Hypertension - Losartan 100 mg - Metoprolol 50 mg BID - Amlodipine 10 mg 4) CAD - Isosorbide mononitrate - Lipitor 40 mg HS 5) DM II - ISS - accuchecks ACHS 6) GI prophylaxis - Pantoprazole 40 mg 7) Peripheral Neuropathy - Pregabalin 75 mg BID 8) DVT prophylaxis - Heparin 5,000 units SC q12h 9) Palliative Care/Advanced Directives - Yesika Moulton consulted - Patient is now DNR/DNI 10) Concern for depression - Psychiatry consulted, Dr. Hines FEN: HHD, renal dialysis diet Prognosis: Guarded, poor <Lauren Godwin - Last Filed: 05/19/17 13:32> Objective - Vital Signs/Intake and Output Vital Signs (last 24 hours): Temp Pulse Resp BP Pulse Ox 98.4 F 83 20 173/89 H 96 05/19/17 12:00 05/19/17 12:00 05/19/17 12:00 05/19/17 12:00 05/19/17 06:00 Intake and Output: 05/19/17 05/19/17 06:59 18:59 Intake Total 1300 Output Total 1000 Balance 300 - Medications Medications: Current Medications Acetaminophen (Tylenol 325mg Tab) 650 mg PO Q4H PRN PRN Reason: Fever >100.4 F Last Admin: 05/14/17 18:37 Dose: 650 mg Albuterol/Ipratropium (Duoneb 3 Mg/0.5 Mg (3 Ml) Ud) 3 ml IH [id number] [facility] Last Admin: 05/19/17 13:21 Dose: Not Given Amlodipine Besylate (Norvasc) 10 mg PO DAILY [facility] Last Admin: 05/18/17 14:30 Dose: 10 mg Aspirin (Ecotrin) 81 mg PO DAILY [facility] Last Admin: 05/18/17 14:28 Dose: 81 mg Atorvastatin Calcium (Lipitor) 40 mg PO DIN [facility] Last Admin: 05/18/17 18:47 Dose: 40 mg Folic Acid (Folic Acid) 1 mg PO DAILY [facility] Last Admin: 05/18/17 14:29 Dose: 1 mg Heparin Sodium (Porcine) (Heparin) 5,000 units SC Q12 [facility] PRN Reason: Protocol Last Admin: 05/18/17 22:26 Dose: 5,000 units Cefepime HCl (Maxipime 1gm) 1 gm in 100 mls @ 100 mls/hr IVPB Q24H [facility] PRN Reason: Protocol Last Admin: 05/18/17 18:47 Dose: 100 mls/hr Insulin Detemir (Levemir) 12 unit SC HS [facility] Insulin Human Lispro (Humalog Low) 0 units SC ACHS [facility] PRN Reason: Protocol Last Admin: 05/19/17 12:49 Dose: 3 units Isosorbide Mononitrate (Imdur) 60 mg PO DAILY [facility] Last Admin: 05/18/17 14:29 Dose: 60 mg Losartan Potassium (Cozaar) 100 mg PO DAILY [facility] Last Admin: 05/18/17 14:28 Dose: 100 mg Metoprolol Tartrate (Lopressor) 50 mg PO BID [facility] Last Admin: 05/18/17 18:47 Dose: 50 mg Ondansetron HCl (Zofran Inj) 4 mg IVP Q4H PRN PRN Reason: Nausea/Vomiting Pantoprazole Sodium (Protonix Ec Tab) 40 mg PO ACB [facility] Last Admin: 05/19/17 08:40 Dose: 40 mg Pregabalin (Lyrica) 75 mg PO BID [facility] Last Admin: 05/18/17 18:47 Dose: 75 mg Tamsulosin HCl (Flomax) 0.4 mg PO DAILY [facility] Last Admin: 05/18/17 14:29 Dose: 0.4 mg Thiamine HCl (Vitamin B1 Tab) 100 mg PO DAILY [facility] Last Admin: 05/18/17 14:30 Dose: 100 mg Vitamin B Complex/Vit C/Folic Acid (Nephro-Eleni) 1 tab PO 0800 [facility] Last Admin: 05/19/17 08:40 Dose: 1 tab Zolpidem Tartrate (Ambien) 10 mg PO HS PRN; Protocol PRN Reason: Insomnia Last Admin: 05/18/17 22:35 Dose: 10 mg - Labs Labs: 05/18/17 06:55 05/18/17 06:55 PT 13.4 Seconds (9.9-11.8) H 05/11/17 16:00 INR 1.24 (0.93-1.08) H 05/11/17 16:00 APTT 33.2 Seconds (23.7-30.8) H 05/11/17 16:00 Attending/Attestation - Attestation I have personally seen and examined this patient.: Yes I have fully participated in the care of the patient.: Yes I have reviewed all pertinent clinical information, including history, physical exam and plan: Yes Notes (Text): 05/19/17 13:31 attending note; Patient seen and examined with the resident. patient is a 56 year old male with a history of ESRD on HD, CAD, CABG, HTN, NV, DM-2, peripheral neuropathy, history of falls, history of CVA, and GI bleed who is being admitted for evaluation of generalized weakness fever due to HCAP vs UTI. CT chest showed possible septic emboli vs abscess collections vs necrotic mets, mediastinal lymph nodes. s/p lung biopsy. Blood culture is positive for Pseudomonas. Plan to remove tunneled dialysis catheter and place temporary catheter for hemodialysis today. Status post ESTER; negative for any acute vegetations. Continue meropenem on daptomycin. patient has Macias catheter. Will try voiding trial. Continue by mouth Flomax. Needs outpatient urology follow-up. Case discussed with ID in detail.
[2017-05-18] MEDS ORDERED: Midazolam 2 MG/2 ML VIAL ONE ×4 (09:36→16:55)
[2017-05-18] MEDS ORDERED: Naloxone 0.4 mg/ml Inj (Adult) ONE (09:36)
[2017-05-18] MEDS ORDERED: Flumazenil 0.1 mg/ml Inj (5ml) IVP ONE (09:36)
[2017-05-18] MEDS ORDERED: Benzocaine/Butamben/Tetracai 14-2-2% TOP Spray TOP ONE (09:40)
[2017-05-18] MEDS ORDERED: Midazolam 2 MG/2 ML VIAL IV ONE (09:45)
[2017-05-18] MEDS ORDERED: Sodium Chloride 0.9% 1,000 ML IV SCH (10:15)
--- NOTE | 2017-05-18 10:26 | CP.PCM.CON ---
History of Present Illness - History of Present Illness History of Present Illness: Palliative consult requested by Dr Bernadette Godwin Reason: Goals of care/advance care planning HPI:56 year old male with history of ESRD on HD,CABG,HTN, MT's,DM, PVD and GI bleed who presented with generalized weakness and fever. patient developed fever and chills during dialysis CT revealed bibasilar consolidation, thick walled cavity in right anterior lung base suspicious for lung abscess. Subsequent CT showed multiple lesions in lungs felt to be septic emboli. Blood cultures positive for gram negative rods. Source of infection thought to be from Permacath. Patient has been refusing removal of Permacath as well as dialysis. He is s/p lung biopsy positive for Pseudomonas. He is scheduled for ESTER today to rule out vegetation. PMHx: ESRD, on HD, DM, CAD bypass in 2012, MT, PVD, HTN,CVA, right foot toe amputations Social History:Former smoker, denies alcohol or drug abuse. Lives independently Family History: Non contributory Advance Care Planning: The patient does not have an Advanced Directive. Review of Systems: As per HPI, otherwise negative Past Patient History - Infectious Disease Hx of Infectious Diseases: None - Tetanus Immunizations Tetanus Immunization: Unknown - Past Medical History & Family History Past Medical History?: Yes - Past Social History Smoking Status: Never Smoked - CARDIAC Hx Cardiac Disorders: Yes (CABG x 3) Hx Hypertension: Yes - PULMONARY Hx Respiratory Disorders: Yes Other/Comment: PULMONARY EDEMA - NEUROLOGICAL HX Cerebrovascular Accident: Yes - HEENT Hx HEENT Problems: Yes (CONTACT LENSES) - RENAL Date of Last Dialysis Treatment: 05/11/17 Hx Renal Failure: Yes Other/Comment: Dialysis M-W-F - ENDOCRINE/METABOLIC Hx Diabetes Mellitus Type 1: Yes - HEMATOLOGICAL/ONCOLOGICAL Hx Blood Disorders: No - INTEGUMENTARY Hx Dermatological Problems: Yes Other/Comment: righty lower ext rash, pt stated "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" - MUSCULOSKELETAL/RHEUMATOLOGICAL Hx Musculoskeletal Disorders: No Hx Falls: Yes Other/Comment: generalized weakness - GASTROINTESTINAL Hx Gastrointestinal Disorders: No - GENITOURINARY/GYNECOLOGICAL Hx Urinary Tract Infection: Yes - PSYCHIATRIC Hx Psychophysiologic Disorder: No Hx Depression: No Hx Emotional Abuse: No Hx Physical Abuse: No Hx Substance Use: Yes - SURGICAL HISTORY Hx Amputation: Yes (R toes) Hx Cardiac Catheterization: Yes (09/09) Hx Coronary Stent: Yes Hx Open Heart Surgery: Yes (12-26-12) - ANESTHESIA Hx Anesthesia: Yes Hx Anesthesia Reactions: No Hx Malignant Hyperthermia: No Meds Allergies/Adverse Reactions: Allergies Allergy/AdvReac Type Severity Reaction Status Date / Time Seafood Allergy ANAPHYLAXIS Uncoded 05/07/17 10:01 - Medications Medications: Current Medications Acetaminophen (Tylenol 325mg Tab) 650 mg PO Q4H PRN PRN Reason: Fever >100.4 F Last Admin: 05/14/17 18:37 Dose: 650 mg Albuterol/Ipratropium (Duoneb 3 Mg/0.5 Mg (3 Ml) Ud) 3 ml IH [id number] [facility] Last Admin: 05/18/17 07:41 Dose: Not Given Amlodipine Besylate (Norvasc) 10 mg PO DAILY [facility] Aspirin (Ecotrin) 81 mg PO DAILY [facility] Last Admin: 05/17/17 11:13 Dose: 81 mg Atorvastatin Calcium (Lipitor) 40 mg PO DIN [facility] Last Admin: 05/17/17 17:31 Dose: 40 mg Folic Acid (Folic Acid) 1 mg PO DAILY [facility] Last Admin: 05/17/17 11:14 Dose: 1 mg Heparin Sodium (Porcine) (Heparin) 5,000 units SC Q12 [facility] PRN Reason: Protocol Last Admin: 05/17/17 21:34 Dose: 5,000 units Meropenem 500 mg/ Sodium (Chloride) 100 mls @ 100 mls/hr IVPB Q8 [facility] PRN Reason: Protocol Stop: 05/20/17 22:01 Last Admin: 05/18/17 05:29 Dose: 100 mls/hr Daptomycin 520 mg/ Sodium (Chloride) 100 mls @ 200 mls/hr IV QOTHERDAY [facility] Stop: 05/22/17 10:01 Last Admin: 05/17/17 11:13 Dose: 200 mls/hr Sodium Chloride (Sodium Chloride 0.9%) 1,000 mls @ 50 mls/hr IV .Q20H [facility] Stop: 05/18/17 11:30 Insulin Human Lispro (Humalog Low) 0 units SC ACHS [facility] PRN Reason: Protocol Last Admin: 05/18/17 08:03 Dose: Not Given Isosorbide Mononitrate (Imdur) 60 mg PO DAILY [facility] Last Admin: 09/20/17 11:13 Dose: 60 mg Losartan Potassium (Cozaar) 100 mg PO DAILY [facility] Last Admin: 05/17/17 11:14 Dose: 100 mg Metoprolol Tartrate (Lopressor) 50 mg PO BID [facility] Ondansetron HCl (Zofran Inj) 4 mg IVP Q4H PRN PRN Reason: Nausea/Vomiting Pantoprazole Sodium (Protonix Ec Tab) 40 mg PO ACB [facility] Last Admin: 05/18/17 08:03 Dose: Not Given Pregabalin (Lyrica) 75 mg PO BID [facility] Last Admin: 05/17/17 17:31 Dose: 75 mg Tamsulosin HCl (Flomax) 0.4 mg PO DAILY [facility] Last Admin: 05/17/17 19:24 Dose: 0.4 mg Thiamine HCl (Vitamin B1 Tab) 100 mg PO DAILY [facility] Last Admin: 05/17/17 11:13 Dose: 100 mg Vitamin B Complex/Vit C/Folic Acid (Nephro-Eleni) 1 tab PO 0800 [facility] Last Admin: 05/18/17 08:03 Dose: Not Given Physical Exam - Constitutional Appears: Chronically Ill - Eye Exam Eye Exam: Normal appearance, PERRL - ENT Exam ENT Exam: Mucous Membranes Moist, Normal Oropharynx - Neck Exam Neck exam: Positive for: Normal Inspection - Respiratory Exam Respiratory Exam: Decreased Breath Sounds, NORMAL BREATHING PATTERN - Cardiovascular Exam Cardiovascular Exam: REGULAR RHYTHM, +S1, +S2 - GI/Abdominal Exam GI & Abdominal Exam: Normal Bowel Sounds, Soft - Extremities Exam Additional comments: right toe amputations - Skin Skin Exam: Dry, Warm Results - Vital Signs Recent Vital Signs: Last Vital Signs Temp 98.2 F 05/18/17 05:38 Pulse 82 05/18/17 05:38 Resp 20 05/18/17 05:38 BP 157/90 H 05/18/17 05:38 Pulse Ox 93 L 05/18/17 05:38 - Labs Result Diagrams: 05/18/17 06:55 05/18/17 06:55 Labs: Laboratory Results - last 24 hr 05/17/17 05/17/17 05/17/17 12:23 16:56 21:30 WBC RBC Hgb Hct MCV MCH MCHC RDW Plt Count MPV Gran % Lymph % (Auto) [place] % (Auto) Eos % (Auto) Baso % (Auto) Gran # Lymph # [place] # Eos # Baso # Sodium Potassium Chloride Carbon Dioxide Anion Gap BUN Creatinine Est GFR ( Amer) Est GFR (Non-Af Amer) POC Glucose (mg/dL) 308 H 243 H 228 H Random Glucose Calcium Total Bilirubin AST ALT Alkaline Phosphatase Total Protein Albumin Globulin Albumin/Globulin Ratio 05/18/17 05/18/17 05/18/17 06:55 06:55 07:23 WBC 9.9 D RBC 3.42 L Hgb 9.1 L Hct 28.6 L MCV 83.6 MCH 26.6 MCHC 31.8 RDW 17.2 H Plt Count 258 MPV 11.0 Gran % 74.8 H Lymph % (Auto) 17.1 L [place] % (Auto) 5.5 Eos % (Auto) 2.3 Baso % (Auto) 0.3 Gran # 7.41 H Lymph # 1.7 [place] # 0.5 Eos # 0.2 Baso # 0.03 Sodium 132 Potassium 3.8 Chloride 98 Carbon Dioxide 22 Anion Gap 16 BUN 45 H Creatinine 5.9 H Est GFR ( Amer) 12 Est GFR (Non-Af Amer) 10 POC Glucose (mg/dL) 328 H Random Glucose 246 H Calcium 8.3 L Total Bilirubin 0.4 AST 14 L D ALT 27 Alkaline Phosphatase 106 Total Protein 5.7 L Albumin 2.5 L Globulin 3.2 Albumin/Globulin Ratio 0.8 L Assessment & Plan - Assessment and Plan (Free Text) Assessment: 56 year old male with history of ESRD on HD, MT DM, HTN,CABG who is admitted with bacteremia, SIRS,anemia. The patient is alert,oriented with flat affect. He is scheduled to have permacath replaced today and is now agreeing to go for dialyses. We had a lengthy discussion involving goals of care and advanced care planning. he is tired of being "ill". States he is often hospitalized. He lives alone but infers that he has friends who will stop by and help when needled. He says he does not want to consider assisted living or NH at this point in time. We discussed resuscitation wishes.The patient is very clear that he does not want to be intubated or have CPR if his condition worsens. POLST explained, questions answered. POLST: DNR/DNI completed, a copy is on the chart. Psychosocial support given Time spent in goals of care and advance care planning discussion, 20 minutes Plan: POLST:DNR/DNI Palliative support and counseling
--- NOTE | 2017-05-18 10:56 | PN ---
DATE: 05/18/2017 CARDIOLOGY FOLLOWUP NOTE SUBJECTIVE: The patient is comfortable without shortness of breath. PHYSICAL EXAMINATION: VITAL SIGNS: Blood pressure is 157/90 with heart rates in the 80s. NECK: Negative JVD. LUNGS: Without rales. HEART: Reveals S1 and S2. EXTREMITIES: Without edema. LABORATORY DATA: Hemoglobin is 9.3. Chemistries; BUN and creatinine are 45 and 5.9. IMPRESSION 1. Renal insufficiency. 2. Sepsis. 3. Need to rule out vegetations of the valve. 4. Diabetes mellitus. PLAN: The patient is scheduled for ESTER today. Yousif Fisher MD
--- NOTE | 2017-05-18 13:03 | CP.PCM.PN ---
Subjective - Date & Time of Evaluation Date of Evaluation: 05/18/17 Time of Evaluation: 10:25 - Subjective Subjective: Comfortable in bed, afebrile overnight, for ESTER today. Objective - Vital Signs/Intake and Output Vital Signs (last 24 hours): Temp Pulse Resp BP Pulse Ox 98.2 F 82 20 157/90 H 93 L 05/18/17 05:38 05/18/17 05:38 05/18/17 05:38 05/18/17 05:38 05/18/17 05:38 Intake and Output: 05/18/17 05/18/17 06:59 18:59 Intake Total 200 Output Total 1000 Balance -800 - Medications Medications: Current Medications Acetaminophen (Tylenol 325mg Tab) 650 mg PO Q4H PRN PRN Reason: Fever >100.4 F Last Admin: 05/14/17 18:37 Dose: 650 mg Albuterol/Ipratropium (Duoneb 3 Mg/0.5 Mg (3 Ml) Ud) 3 ml IH [id number] [facility] Last Admin: 05/18/17 01:17 Dose: Not Given Albuterol/Ipratropium (Duoneb 3 Mg/0.5 Mg (3 Ml) Ud) 3 ml IH Q2H PRN PRN Reason: Shortness of Breath Aspirin (Ecotrin) 81 mg PO DAILY [facility] Last Admin: 05/17/17 11:13 Dose: 81 mg Atorvastatin Calcium (Lipitor) 40 mg PO DIN [facility] Last Admin: 05/17/17 17:31 Dose: 40 mg Folic Acid (Folic Acid) 1 mg PO DAILY [facility] Last Admin: 05/17/17 11:14 Dose: 1 mg Heparin Sodium (Porcine) (Heparin) 5,000 units SC Q12 [facility] PRN Reason: Protocol Last Admin: 05/17/17 21:34 Dose: 5,000 units Hydralazine HCl (Apresoline) 25 mg PO QID [facility] Last Admin: 05/17/17 21:43 Dose: 25 mg Meropenem 500 mg/ Sodium (Chloride) 100 mls @ 100 mls/hr IVPB Q8 [facility] PRN Reason: Protocol Stop: 05/20/17 22:01 Last Admin: 05/18/17 05:29 Dose: 100 mls/hr Daptomycin 520 mg/ Sodium (Chloride) 100 mls @ 200 mls/hr IV QOTHERDAY [facility] Stop: 05/22/17 10:01 Last Admin: 05/17/17 11:13 Dose: 200 mls/hr Insulin Human Lispro (Humalog Low) 0 units SC ACHS [facility] PRN Reason: Protocol Last Admin: 05/17/17 22:00 Dose: Not Given Isosorbide Mononitrate (Imdur) 60 mg PO DAILY [facility] Last Admin: 05/17/17 11:13 Dose: 60 mg Losartan Potassium (Cozaar) 100 mg PO DAILY [facility] Last Admin: 05/17/17 11:14 Dose: 100 mg Metoprolol Tartrate (Lopressor) 25 mg PO BID [facility] Last Admin: 05/17/17 17:31 Dose: 25 mg Ondansetron HCl (Zofran Inj) 4 mg IVP Q4H PRN PRN Reason: Nausea/Vomiting Pantoprazole Sodium (Protonix Ec Tab) 40 mg PO ACB [facility] Last Admin: 05/17/17 08:26 Dose: 40 mg Pregabalin (Lyrica) 75 mg PO BID [facility] Last Admin: 05/17/17 17:31 Dose: 75 mg Tamsulosin HCl (Flomax) 0.4 mg PO DAILY [facility] Last Admin: 05/17/17 19:24 Dose: 0.4 mg Thiamine HCl (Vitamin B1 Tab) 100 mg PO DAILY [facility] Last Admin: 05/17/17 11:13 Dose: 100 mg Vitamin B Complex/Vit C/Folic Acid (Nephro-Eleni) 1 tab PO 0800 [facility] Last Admin: 05/17/17 08:26 Dose: 1 tab - Labs Labs: 05/18/17 06:55 05/17/17 06:30 PT 13.4 Seconds (9.9-11.8) H 05/11/17 16:00 INR 1.24 (0.93-1.08) H 05/11/17 16:00 APTT 33.2 Seconds (23.7-30.8) H 05/11/17 16:00 - Constitutional Appears: Non-toxic, No Acute Distress - Head Exam Head Exam: NORMAL INSPECTION - ENT Exam ENT Exam: Mucous Membranes Moist - Neck Exam Neck Exam: absent: Meningismus - Respiratory Exam Respiratory Exam: Decreased Breath Sounds - Cardiovascular Exam Cardiovascular Exam: +S1, +S2 - GI/Abdominal Exam GI & Abdominal Exam: Soft. absent: Tenderness Assessment and Plan - Assessment and Plan (Free Text) Plan: Assessment sepsis due to persistent Pseudomonas bacteremia, with lung cavitary lesions, with septic emboli (also growing Pseudomonas), R/O Permacath infection R/O endocarditis; no evidence of intra-abdominal infection on CT scan of the abdomen and pelvis history of sepsis due to Klebsiella bacteremia likely HD catheter infection S/P removal of tunneled Catheter history of C. diff. associated diarrhea DM HTN ESRD on HD CAD S/P CABG history of CVA history of rhabdomyolysis Plan will change antibiotics to Cefepime and follow up repeat blood cx follow up results of the ESTER - if ESTER is negative, would recommend change of Permacath since that would be the more likely source with negative urine, negative intra-abdominal infectiondiscussed with Dr. Gdowin will continue to monitor clinically
--- NOTE | 2017-05-18 13:13 | CP.PCM.PCO ---
Physician Communication Note - Physician Communication Note Physician Communication Note: will hold consult, pt went for the procedure/will call for f/u
--- NOTE | 2017-05-18 13:59 | CARD ---
APPROVED REPORT EXAM: Two-dimensional and M-mode echocardiogram with Doppler and color Doppler. INDICATION Infection : Rule out subacute bacterial endocarditis 2D DIMENSIONS Left Atrium (2D)5.3 (1.6-4.0cm) Mitral Valve E/A ratio0.0 TDI E/Lateral E'0.0E/Medial E'0.0 Reason For Test : Rule out endocarditis. PROCEDURE After obtaining informed consent, patient underwent transesophageal echo in the Echo Lab. Type of Sedation : Conscious Sedation Sedation was administered by Dr. Mcdermott. Sedation was achieved with Versed and versed 1 mg and 50 mcg intravenously. Transesophageal probe was inserted and advanced into esophagus without difficulty. Echo enhancement indication: R/O Septal defect. Echo enhancement agent administered: Agitated Saline The ESTER was performed without complications. Throughout the procedure, the blood pressure, pulse oximetry, cardiac rhythm, and rate were monitored. The patient tolerated the procedure without adverse effects. Recovery from conscious sedation was uneventful and vital signs were stable. LEFT VENTRICLE The left ventricle is normal size. There is mild left ventricular hypertrophy. low normal EF-50% There is mild hypokinesis in the apical anterior wall. No left ventricle thrombus noted on this study. There is no ventricular septal defect visualized. There is no left ventricular aneurysm. There is no mass noted in the left ventricle. RIGHT VENTRICLE The right ventricle is normal size. There is normal right ventricular wall thickness. The right ventricular systolic function is normal. ATRIA The left atrium is mild to moderate dilated. The right atrium is mildly dilated. The interatrial septum is intact with no evidence for an atrial septal defect. AORTIC VALVE The aortic valve is normal in structure. There is trivial aortic regurgitation. There is no aortic valvular stenosis. There is no aortic valvular vegetation. MITRAL VALVE The mitral valve leaflets are thickened. A mild mitral valve prolapse is present. There is no mitral valve stenosis. There is no mitral valve regurgitation noted. TRICUSPID VALVE The tricuspid valve leaflets display thickening. There is trace tricuspid regurgitation. There is no tricuspid valve prolapse or vegetation. There is no tricuspid valve stenosis. PULMONIC VALVE The pulmonary valve is normal in structure. There is trace pulmonic valvular regurgitation. There is no pulmonic valvular stenosis. GREAT VESSELS The aortic root is normal in size. The ascending aorta is normal in size. The pulmonary artery is normal. The IVC is normal in size and collapses >50% with inspiration. PERICARDIAL EFFUSION There is no pericardial effusion. There is no pleural effusion. <Conclusion> EF-50% Intact intra atrial septum by colorflow.Trace TR/PI Trivial AR Mild AR. Velocity in BENSON >0.5 m/s Mild Plaque in Descending aorta Catheter Noted in RA No vegetation noted.
[2017-05-18] MEDS ORDERED: Lidocaine 2% Inj (20ml) ONE (14:36)
--- NOTE | 2017-05-18 18:17 | VASCULAR ---
PROCEDURE: 1. Ultrasound and fluoroscopically placed temporary left IJ dialysis catheter 2. Removal of tunneled right IJ dialysis catheter. CLINICAL HISTORY: End-stage renal disease. Sepsis. Infected tunneled right IJ dialysis catheter. PHYSICIAN(S): Yousif Cortés M.D. TECHNIQUE: The relative risks and indications of the procedure were explained the patient consent obtained. The patient was placed supine on the arteriogram table in a left neck prepped and draped usual sterile fashion. Conscious sedation monitoring were provided throughout the procedure by a nurse. Under direct ultrasound guidance, the left internal jugular vein was punctured with a micropuncture set. 0.035 glidewire was advanced in the IVC. Sequential dilatation was performed with placement of a 20 cm Schon temporary dialysis catheter with its tip in the right atrium. Catheter was flushed and secured. Next, the tunneled right IJ dialysis catheter prepped and draped in the usual sterile fashion. 1% Xylocaine was used to anesthetize skin and soft tissues along the tunnel. The tunnel and cuff were bluntly dissected. The catheter was removed and pressure applied at the venous insertion site. A single interrupted suture was placed at the exit site. The patient tolerated the procedure well. IMPRESSION: 1. Ultrasound fluoroscopically placed temporary left IJ dialysis catheter 2. Removal the patient's infected tunneled right IJ dialysis catheter
[2017-05-18] MEDS: Cefepime 1gm in NS 100ml 1 GM/100 ML BAG IVPB SCH (18:47)
[2017-05-18] MEDS ORDERED: Insulin Detemir 100 units/ml Vial (Levemir) SC SCH (22:00)
[2017-05-19] MEDS: Albuterol-Ipratrop 3 mg / 0.5 (3 ml) UD IH SCH ×4 (01:22→20:07)
--- NOTE | 2017-05-19 08:10 | PN ---
DATE: 05/18/2017 NEPHROLOGY FOLLOWUP CHIEF COMPLAINT: None at this time. HPI AND REVIEW OF SYSTEM: The patient denies any complaint at this time. No chest pain, palpitation or shortness of breath. No nausea or vomiting. No stomach pain. He has ESTER today done which was negative for vegetation. He is scheduled for dialysis today but after the placement of temporary dialysis catheter. PHYSICAL EXAMINATION: GENERAL: The patient is sleeping in his room, he was easily arousable and awake after that, comfortable, not in any acute distress, pleasant and cooperative. VITAL SIGNS: Noted. Afebrile, pulse 81, and blood pressure 144/71 and saturation is well maintained. LUNGS: Bilateral vesicular sounds clear. CARDIOVASCULAR: S1 and S2 normal. No murmur. ABDOMEN: Soft and nontender. No organomegaly could be appreciated. EXTREMITIES: No edema. PSYCHIATRIC: The patient is pleasant and cooperative. Judgement is appropriate. Affect is normal. Insight is present. LYMPHATIC: No lymphadenopathy in the neck. NEUROLOGIC: The patient is alert, awake, and oriented x3. No focal deficits. Moving all 4 extremities. LABORATORY DATA: Workup shows white blood cell count 9.9, hemoglobin of 9.1, platelet count is 58. Sodium is 132, potassium is 3.9, creatinine is 5.9, BUN 45 and glucose 246. Blood culture: All blood cultures are growing pseudomonas. ESTER negative for endocarditis. The patient had CT scan of the abdomen and pelvis yesterday done which shows bilateral pleural effusion and multiple lung nodules. The patient's stomach also consisted of large amount of ingested material and small amount of contrast. No obstruction. There was more stools toward the colon. CURRENT MEDICATIONS: Reviewed. ASSESSMENT: 1. Pseudomonas sepsis with septic emboli. 2. Likely source is a Perm-A-Cath infection. 3. End-stage renal disease, on hemodialysis by catheter. 4. Patient with diabetic chronic kidney disease and hypertensive chronic kidney disease. 5. History of anemia, 6. Hypophosphatemia. 7. Secondary hyperparathyroidism. 8. Hypertension 9. Esophageal ulceration. 10. Gastroparesis. 11. Status post coronary artery bypass grafting. 12. History of coronary artery disease. 13. Urinary retention likely due to autonomic neuropathy. RECOMMENDATION: Consulted IR for removal of Perm-A-Cath and placement of temporary catheter. We will place new Perm-A-Cath once blood cultures have been negative. Antibiotic the patient receives, then plan for dialysis once the patient had temporary catheter placed, that is today or tomorrow. ANCA and anti-GBM antibodies are pending. Continue with the blood pressure medication. Continue with the Aranesp during dialysis which he gets weekly. Also asked the patient when he gets shower does his catheter gets wet, the patient says "maybe, I'm not sure" which most likely is the reason for his pseudomonas bacteremia, his exposure of his catheter exit site and/or dressing to the tap water when he takes shower. The patient again advised not to do so. Sancho Garrett MD
[2017-05-19] MEDS: Multivitamin Vitamin B Complex (Nephro-Vite) Tab PO SCH (08:40)
[2017-05-19] MEDS: Pantoprazole 40 mg EC Tab PO SCH (08:40)
[2017-05-19] MEDS: Insulin Lispro (humaLOG) LOW Coverage SC SCH ×5 (08:40→22:54)
--- NOTE | 2017-05-19 10:49 | PN ---
FOLLOWUP NEPHROLOGY NOTE DATE: 05/17/2017 CHIEF COMPLAINT: None at this time. HISTORY OF PRESENT ILLNESS AND REVIEW OF SYSTEMS: The patient did not go for dialysis today. He refused. He underwent CT scan of the abdomen and ultrasound today. The patient did not go for dialysis as he has refused, says he does not want dialysis with the same catheter as he gets chills during dialysis. He denies any shortness of breath, cough, phlegm, urinary complaints, has a Macias catheter. Denies any leg swelling. No stomach pain, nausea or vomiting at this time. PHYSICAL EXAMINATION: GENERAL: The patient is comfortable, not in acute distress. VITAL SIGNS: Stable, afebrile, pulse 70, blood pressure 145/80. LUNGS: Bilateral vesicular breath sounds, clear. No added sound. CARDIOVASCULAR: S1 and S2 normal. No murmur. No rub. ABDOMEN: Soft and nontender. No organomegaly. EXTREMITIES: No edema. Has forefoot amputation. GENITOURINARY: The patient has had indwelling Macias. Kidneys and bladder not palpable. LABORATORY DATA: Workup shows white blood cell count 13.3, hemoglobin 8.7, platelet count is 232. Sodium is 132, potassium 3, creatinine is 5.1, glucose 215. Then, he made 600 mL of urine. Blood cultures have grown Gram-negative yumiko from 05/15/2017 and 05/13/2017. Also ANCA and anti-GBM were also were also sent, but the results are pending at this time. CURRENT MEDICATIONS: Reviewed. ASSESSMENT: 1. Sepsis with gram-negative yumiko, source is being determined, also with bilateral septic emboli. 2. End-stage renal disease, on hemodialysis with Perm-A-Cath. 3. History of diabetic chronic kidney disease. 4. Hypertensive chronic kidney disease. 5. Anemia. 6. Hyperphosphatemia. 7. Secondary hyperparathyroidism. 8. Hypertension. 9. Esophageal ulceration. 10. Gastroparesis. 11. Coronary artery disease status post coronary artery bypass graft. RECOMMENDATIONS: The patient has refused dialysis today. We will plan for dialysis tomorrow. ANCA antibody and anti-GBM antibodies are pending. Blood culture and all sensitivities are also pending. He is planned for ESTER tomorrow to further determine the source of his sepsis and also pending sensitivity on the organism. Also, to rule out Perm-A-Cath infection. Since the source is not clear, I explained to the patient that removal of the Perm-A-Cath should be postponed until the source is determined whether exchange it with a guidewire or remove it and put a temporary cath on the left side, is also need to be decided based upon the culture and sensitivity of the organism. The patient was advised that he should try dialysis tomorrow, if it is not clear of the source of his infection by tomorrow. The patient is reluctantly agreeable. CT biopsy of the lung abscess is done. Follow the results. Follow the ID and cardiology recommendation. Continue antihypertensive. All questions were answered. Sancho Garrett MD
--- NOTE | 2017-05-19 11:00 | CP.PCM.PN ---
<aKyleigh Martinez - Last Filed: 05/19/17 19:26> Subjective - Date & Time of Evaluation Date of Evaluation: 05/19/17 Time of Evaluation: 11:00 - Subjective Subjective: Kayleigh Martinez DO, PGY-1, Hospitalist Service Patient seen and examined at bedside. Patient denies any fever, chills, or night sweats. Nurse reports no events overnight. Objective - Vital Signs/Intake and Output Vital Signs (last 24 hours): Temp Pulse Resp BP Pulse Ox 98.6 F 108 H 20 144/76 96 05/19/17 06:00 05/19/17 06:00 05/19/17 06:00 05/19/17 06:00 05/19/17 06:00 Intake and Output: 05/19/17 05/19/17 06:59 18:59 Intake Total 1300 Output Total 1000 Balance 300 - Medications Medications: Current Medications Acetaminophen (Tylenol 325mg Tab) 650 mg PO Q4H PRN PRN Reason: Fever >100.4 F Last Admin: 05/14/17 18:37 Dose: 650 mg Albuterol/Ipratropium (Duoneb 3 Mg/0.5 Mg (3 Ml) Ud) 3 ml IH [id number] [facility] Last Admin: 05/19/17 07:35 Dose: Not Given Amlodipine Besylate (Norvasc) 10 mg PO DAILY [facility] Last Admin: 05/18/17 14:30 Dose: 10 mg Aspirin (Ecotrin) 81 mg PO DAILY [facility] Last Admin: 05/18/17 14:28 Dose: 81 mg Atorvastatin Calcium (Lipitor) 40 mg PO DIN [facility] Last Admin: 05/18/17 18:47 Dose: 40 mg Folic Acid (Folic Acid) 1 mg PO DAILY [facility] Last Admin: 05/18/17 14:29 Dose: 1 mg Heparin Sodium (Porcine) (Heparin) 5,000 units SC Q12 [facility] PRN Reason: Protocol Last Admin: 05/18/17 22:26 Dose: 5,000 units Cefepime HCl (Maxipime 1gm) 1 gm in 100 mls @ 100 mls/hr IVPB Q24H [facility] PRN Reason: Protocol Last Admin: 05/18/17 18:47 Dose: 100 mls/hr Insulin Detemir (Levemir) 12 unit SC [facility] Insulin Human Lispro (Humalog Low) 0 units SC ACHS [facility] PRN Reason: Protocol Last Admin: 05/19/17 08:40 Dose: 2 units Isosorbide Mononitrate (Imdur) 60 mg PO DAILY [facility] Last Admin: 05/18/17 14:29 Dose: 60 mg Losartan Potassium (Cozaar) 100 mg PO DAILY [facility] Last Admin: 05/18/17 14:28 Dose: 100 mg Metoprolol Tartrate (Lopressor) 50 mg PO BID [facility] Last Admin: 05/18/17 18:47 Dose: 50 mg Ondansetron HCl (Zofran Inj) 4 mg IVP Q4H PRN PRN Reason: Nausea/Vomiting Pantoprazole Sodium (Protonix Ec Tab) 40 mg PO ACB [facility] Last Admin: 05/19/17 08:40 Dose: 40 mg Pregabalin (Lyrica) 75 mg PO BID [facility] Last Admin: 05/18/17 18:47 Dose: 75 mg Tamsulosin HCl (Flomax) 0.4 mg PO DAILY [facility] Last Admin: 05/18/17 14:29 Dose: 0.4 mg Thiamine HCl (Vitamin B1 Tab) 100 mg PO DAILY [facility] Last Admin: 05/18/17 14:30 Dose: 100 mg Vitamin B Complex/Vit C/Folic Acid (Nephro-Eleni) 1 tab PO 0800 [facility] Last Admin: 05/19/17 08:40 Dose: 1 tab Zolpidem Tartrate (Ambien) 10 mg PO HS PRN; Protocol PRN Reason: Insomnia Last Admin: 05/18/17 22:35 Dose: 10 mg - Labs Labs: 05/18/17 06:55 05/18/17 06:55 PT 13.4 Seconds (9.9-11.8) H 05/11/17 16:00 INR 1.24 (0.93-1.08) H 05/11/17 16:00 APTT 33.2 Seconds (23.7-30.8) H 05/11/17 16:00 - Constitutional Appears: Chronically Ill - Head Exam Head Exam: ATRAUMATIC, NORMOCEPHALIC - Eye Exam Eye Exam: EOMI, Normal appearance - ENT Exam ENT Exam: Mucous Membranes Dry - Neck Exam Neck Exam: Normal Inspection - Respiratory Exam Respiratory Exam: Clear to Ausculation Bilateral, NORMAL BREATHING PATTERN - Cardiovascular Exam Cardiovascular Exam: RRR, +S1, +S2 - Psychiatric Exam Psychiatric exam: Depressed - Skin Additional comments: patient has rash that appears to like that from septic emboli shower Assessment and Plan - Assessment and Plan (Free Text) Assessment: Patient is a 56 year old male with a past medical history of ESRD on HD, CABG, HTN, AK(s), DM, peripheral neuropathy, and history of GI bleed who was admitted for generalized weakness and fever. Patient was found to have multiple lesions in the lungs, likely secondary to septic emboli from permacath. Patient had been developing fevers and chills during hemodialysis. Blood cultures x 2 and Left Upper Lobe lesion all grew Pseudomonas Aeruginosa. Patient switched from Daptomycin and Merropenem to just Cefepime. Patient's perma-cath removed and now with temporary catheter. Patient resumed dialysis today (05/19). Plan: 1) Pseudomonas bacteremia with septic emboli likely secondary to infected perma- cath. - Blood cultures from 05/13 and 05/15 grew Pseudomonas aeruginosa and septic emboli from SIGIFREDO grew P. Aeruginosa. - Transesophageal Echocardiogram negative for vegetaions. - Patient is on Cefepime day #2. - Infectious Disease is on the case, Dr. See - Per ID, continue Cefepime; continue Cefepime 4-6 weeks and treat this as an endovascular infection with weekly ESR, CRP, CBC, CMP - Repeat blood cultures from yesterday were negative x 24 hours - Perma-cath removed, temporary catheter placed for HD 2) ESRD - Dr. Garrett, nephrology is on the case - Patient underwent dialysis today, 3 L 3) Hypertension - Losartan 100 mg - Metoprolol 50 mg BID - Amlodipine 10 mg 4) CAD - Isosorbide mononitrate - Lipitor 40 mg HS 5) DM II - ISS - accuchecks ACHS 6) GI prophylaxis - Pantoprazole 40 mg 7) Peripheral Neuropathy - Pregabalin 75 mg BID 8) DVT prophylaxis - Heparin 5,000 units SC q12h 9) Palliative Care/Advanced Directives - Yesika Moulton consulted - Patient is now DNR/DNI 10) Concern for depression - Psychiatry consulted, Dr. Hines 11) Urinary retention: patient failed voiding trial - recommend outpatient urology follow up FEN: HHD, renal dialysis diet Prognosis: Guarded, poor <Lauren Godwin - Last Filed: 05/20/17 11:10> Objective - Vital Signs/Intake and Output Vital Signs (last 24 hours): Temp Pulse Resp BP Pulse Ox 98 F 76 19 135/81 95 05/20/17 08:18 05/20/17 08:18 05/20/17 08:18 05/20/17 08:18 05/20/17 08:18 Intake and Output: 05/20/17 05/20/17 06:59 18:59 Intake Total 200 Output Total 350 Balance -150 - Medications Medications: Current Medications Acetaminophen (Tylenol 325mg Tab) 650 mg PO Q4H PRN PRN Reason: Fever >100.4 F Last Admin: 05/19/17 22:32 Dose: 650 mg Albuterol/Ipratropium (Duoneb 3 Mg/0.5 Mg (3 Ml) Ud) 3 ml IH [id number] [facility] Last Admin: 05/20/17 07:14 Dose: Not Given Amlodipine Besylate (Norvasc) 10 mg PO DAILY [facility] Last Admin: 05/19/17 19:18 Dose: 10 mg Aspirin (Ecotrin) 81 mg PO DAILY [facility] Last Admin: 05/19/17 18:59 Dose: Not Given Atorvastatin Calcium (Lipitor) 40 mg PO DIN [facility] Last Admin: 05/19/17 19:16 Dose: 40 mg Darbepoetin Jabari (Aranesp) 60 mcg IVP ONCE [facility] Last Admin: 05/19/17 18:13 Dose: 60 mcg Docusate Sodium (Colace) 100 mg PO BID [facility] Last Admin: 05/19/17 18:57 Dose: Not Given Doxercalciferol (Hectorol) 1 mcg IV MWF [facility] Last Admin: 05/19/17 19:03 Dose: Not Given Folic Acid (Folic Acid) 1 mg PO DAILY [facility] Last Admin: 05/19/17 19:01 Dose: Not Given Heparin Sodium (Porcine) (Heparin) 5,000 units SC Q12 [facility] PRN Reason: Protocol Last Admin: 05/19/17 22:34 Dose: 5,000 units Cefepime HCl (Maxipime 1gm) 1 gm in 100 mls @ 100 mls/hr IVPB Q24H [facility] PRN Reason: Protocol Last Admin: 05/19/17 19:18 Dose: 100 mls/hr Insulin Detemir (Levemir) 12 unit SC HS [facility] Last Admin: 05/19/17 22:33 Dose: 12 unit Insulin Human Lispro (Humalog Low) 0 units SC [facility] PRN Reason: Protocol Last Admin: 05/20/17 08:30 Dose: 2 units Isosorbide Mononitrate (Imdur) 60 mg PO DAILY [facility] Last Admin: 05/19/17 19:17 Dose: 60 mg Losartan Potassium (Cozaar) 100 mg PO DAILY [facility] Last Admin: 05/19/17 19:17 Dose: 100 mg Metoclopramide HCl (Reglan) 5 mg IVP ACHS [facility] Last Admin: 05/20/17 08:30 Dose: 5 mg Metoprolol Tartrate (Lopressor) 50 mg PO BID [facility] Last Admin: 05/19/17 19:16 Dose: 50 mg Ondansetron HCl (Zofran Inj) 4 mg IVP Q4H PRN PRN Reason: Nausea/Vomiting Pantoprazole Sodium (Protonix Ec Tab) 40 mg PO ACB [facility] Last Admin: 05/20/17 08:30 Dose: 40 mg Polyethylene Glycol (Miralax) 17 gm PO DAILY [facility] Last Admin: 05/19/17 19:06 Dose: Not Given Pregabalin (Lyrica) 75 mg PO BID [facility] Last Admin: 05/19/17 19:17 Dose: 75 mg Tamsulosin HCl (Flomax) 0.4 mg PO DAILY [facility] Last Admin: 05/19/17 19:18 Dose: 0.4 mg Thiamine HCl (Vitamin B1 Tab) 100 mg PO DAILY [facility] Last Admin: 05/19/17 19:07 Dose: Not Given Vitamin B Complex/Vit C/Folic Acid (Nephro-Eleni) 1 tab PO 0800 [facility] Last Admin: 05/20/17 08:31 Dose: 1 tab Zolpidem Tartrate (Ambien) 5 mg PO HS PRN; Protocol PRN Reason: Insomnia Last Admin: 05/19/17 23:23 Dose: 5 mg - Labs Labs: 05/20/17 06:30 05/20/17 06:30 PT 13.4 Seconds (9.9-11.8) H 05/11/17 16:00 INR 1.24 (0.93-1.08) H 05/11/17 16:00 APTT 33.2 Seconds (23.7-30.8) H 05/11/17 16:00 Attending/Attestation - Attestation I have personally seen and examined this patient.: Yes I have fully participated in the care of the patient.: Yes I have reviewed all pertinent clinical information, including history, physical exam and plan: Yes Notes (Text): 05/20/17 11:04 attending note; Patient seen and examined with the resident. Patient is a 56 year old male with a history of ESRD on HD, CAD, CABG, HTN, AK, DM-2, peripheral neuropathy, history of falls, history of CVA, and GI bleed who is being admitted for evaluation of generalized weakness fever due to HCAP vs UTI. CT chest showed possible septic emboli. lung biopsy showed Pseudomonas infection. no malignancy or granulomatous tissue seen. Blood culture is positive for Pseudomonas. tunneled dialysis catheter removed. Currently had left IJ temporary hemodialysis catheter. continue dialysis per nephrology. Status post ESTER; negative for any vegetations. Continue IV cefepime. patient has Macias catheter. failed voiding trial. Continue by mouth Flomax. Needs outpatient urology follow-up. case discussed with ID in detail. Patient needs 4-6 weeks of IV antibiotics. Case discussed with case aide for discharge planning. Depression; psychiatric evaluation requested.
--- NOTE | 2017-05-19 13:21 | PN ---
CARDIOLOGY FOLLOWUP DATE: 05/19/2017 SUBJECTIVE: The patient is comfortable in bed without shortness of breath, without chest pain. There is no evidence of vegetation on the ESTER. PHYSICAL EXAMINATION: VITAL SIGNS: Stable. NECK: Negative JVD. LUNGS: Without rales. HEART: S1 and S2. EXTREMITIES: Without edema. LABORATORY DATA: Reveals hemoglobin of 9.1. Chemistries were not done today. IMPRESSION: 1. Pulmonary infection. 2. No evidence for cardiac vegetation. 3. Renal insufficiency. 4. Diabetes mellitus. PLAN: Given these findings, the patient's cardiac status is stable. We will DC telemetry today. Yousif Fisher MD
[2017-05-19 14:12] LABS: BASO # 0.04 K/mm3 (0.0-2.0); BASO % 0.5 % (0.0-3.0); EOS # 0.3 (0.0-0.7); EOS % 3.1 % (1.5-5.0); GRAN # 6.38 (1.4-6.5); GRAN % 76.1 % (50.0-68.0); HEMATOCRIT 26.9 % (42.0-52.0); LYMPH # 1.3 (1.2-3.4); MEAN CELL VOLUME 84.3 fl (80.0-105.0); MEAN CORPUSCULAR HEMOGLOBIN 27.3 pg (25.0-35.0); MEAN CORPUSCULAR HGB CONC 32.3 g/dl (31.0-37.0); MEAN PLATELET VOLUME 11.1 fl (7.0-11.0); MONO # 0.4 (0.1-0.6); MONO % 4.3 % (1.0-6.0); RED CELL DISTRIBUTION WIDTH 17.3 % (11.5-14.5); WHITE BLOOD COUNT 8.4 10^3/ul (4.5-11.0)
[2017-05-19 14:17] LABS: POTASSIUM 4.3 mmol/L (3.6-5.0)
[2017-05-19] MEDS ORDERED: Doxercalciferol 4 mcg/2 ml Inj IV SCH (15:00)
--- NOTE | 2017-05-19 15:39 | CP.PCM.PN ---
Subjective - Date & Time of Evaluation Date of Evaluation: 05/19/17 Time of Evaluation: 10:20 - Subjective Subjective: Resting comfortably in bed, not in distress, afebrile. Objective - Vital Signs/Intake and Output Vital Signs (last 24 hours): Temp Pulse Resp BP Pulse Ox 99 F 77 20 157/80 H 95 05/19/17 00:05 05/19/17 04:13 05/19/17 00:05 05/19/17 00:05 05/19/17 00:05 Intake and Output: 05/18/17 05/19/17 18:59 06:59 Intake Total 175 Balance 175 - Medications Medications: Current Medications Acetaminophen (Tylenol 325mg Tab) 650 mg PO Q4H PRN PRN Reason: Fever >100.4 F Last Admin: 05/14/17 18:37 Dose: 650 mg Albuterol/Ipratropium (Duoneb 3 Mg/0.5 Mg (3 Ml) Ud) 3 ml IH [id number] [facility] Last Admin: 05/19/17 01:22 Dose: Not Given Amlodipine Besylate (Norvasc) 10 mg PO DAILY [facility] Last Admin: 05/18/17 14:30 Dose: 10 mg Aspirin (Ecotrin) 81 mg PO DAILY [facility] Last Admin: 05/18/17 14:28 Dose: 81 mg Atorvastatin Calcium (Lipitor) 40 mg PO DIN [facility] Last Admin: 05/18/17 18:47 Dose: 40 mg Folic Acid (Folic Acid) 1 mg PO DAILY [facility] Last Admin: 05/18/17 14:29 Dose: 1 mg Heparin Sodium (Porcine) (Heparin) 5,000 units SC Q12 [facility]ARYANN PRN Reason: Protocol Last Admin: 05/18/17 22:26 Dose: 5,000 units Cefepime HCl (Maxipime 1gm) 1 gm in 100 mls @ 100 mls/hr IVPB Q24H [facility] PRN Reason: Protocol Last Admin: 05/18/17 18:47 Dose: 100 mls/hr Insulin Detemir (Levemir) 10 unit SC HS [facility] Last Admin: 05/18/17 22:26 Dose: 10 unit Insulin Human Lispro (Humalog Low) 0 units SC ACHS [facility]ARYANN PRN Reason: Protocol Last Admin: 05/18/17 22:20 Dose: Not Given Isosorbide Mononitrate (Imdur) 60 mg PO DAILY [facility] Last Admin: 05/18/17 14:29 Dose: 60 mg Losartan Potassium (Cozaar) 100 mg PO DAILY [facility] Last Admin: 05/18/17 14:28 Dose: 100 mg Metoprolol Tartrate (Lopressor) 50 mg PO BID [facility] Last Admin: 05/18/17 18:47 Dose: 50 mg Ondansetron HCl (Zofran Inj) 4 mg IVP Q4H PRN PRN Reason: Nausea/Vomiting Pantoprazole Sodium (Protonix Ec Tab) 40 mg PO ACB [facility] Last Admin: 05/18/17 08:03 Dose: Not Given Pregabalin (Lyrica) 75 mg PO BID [facility] Last Admin: 05/18/17 18:47 Dose: 75 mg Tamsulosin HCl (Flomax) 0.4 mg PO DAILY [facility] Last Admin: 05/18/17 14:29 Dose: 0.4 mg Thiamine HCl (Vitamin B1 Tab) 100 mg PO DAILY [facility] Last Admin: 05/18/17 14:30 Dose: 100 mg Vitamin B Complex/Vit C/Folic Acid (Nephro-Eleni) 1 tab PO 0800 [facility] Last Admin: 05/18/17 08:03 Dose: Not Given Zolpidem Tartrate (Ambien) 10 mg PO HS PRN; Protocol PRN Reason: Insomnia Last Admin: 05/18/17 22:35 Dose: 10 mg - Labs Labs: 05/18/17 06:55 05/18/17 06:55 PT 13.4 Seconds (9.9-11.8) H 05/11/17 16:00 INR 1.24 (0.93-1.08) H 05/11/17 16:00 APTT 33.2 Seconds (23.7-30.8) H 05/11/17 16:00 - Constitutional Appears: Non-toxic, No Acute Distress - Head Exam Head Exam: NORMAL INSPECTION - Neck Exam Neck Exam: absent: Meningismus - Respiratory Exam Respiratory Exam: Decreased Breath Sounds - Cardiovascular Exam Cardiovascular Exam: +S1, +S2 - GI/Abdominal Exam GI & Abdominal Exam: Soft. absent: Tenderness Assessment and Plan - Assessment and Plan (Free Text) Plan: Assessment sepsis due to persistent Pseudomonas bacteremia, with lung cavitary lesions, with septic emboli (also growing Pseudomonas), probably Permacath infection with no evidence of endocarditis on ESTER; no evidence of intra-abdominal infection on CT scan of the abdomen and pelvis; S/P removal of Permacath and replacement with temporary dialysis catheter POD #1 history of sepsis due to Klebsiella bacteremia likely HD catheter infection S/P removal of tunneled Catheter history of C. diff. associated diarrhea DM HTN ESRD on HD CAD S/P CABG history of CVA history of rhabdomyolysis Plan continue Cefepime; repeat blood cx from yesterday are negative x 24 hours would recommend 4-6 weeks of antibiotics and treat this as an endovascular infection with weekly ESR, CRP, CBC, CMP will continue to monitor clinically discussed with Dr. Godwin and Dr. Garrett
[2017-05-19] MEDS: Darbepoetin Alfa 60 mcg/ml Inj IVP SCH (18:13)
[2017-05-19] MEDS: POLYETHYLENE GLYCOL 3350 17 GM/Dose PACKET PO SCH (19:06)
[2017-05-19] MEDS: Cefepime 1gm in NS 100ml 1 GM/100 ML BAG IVPB SCH (19:18)
[2017-05-19] MEDS: Insulin Detemir 100 units/ml Vial (Levemir) SC SCH (22:33)
--- NOTE | 2017-05-19 23:03 | PN ---
NEPHROLOGY FOLLOWUP CHIEF COMPLAINT: "I want to go home." HISTORY OF PRESENT ILLNESS AND REVIEW OF SYSTEMS: Overnight event noted. The patient had his Perm-A-Cath removed on the left side, temporary catheter placed. He was seen during dialysis today. The patient states "I want to go home" and does not want to stay in the hospital anymore. He said "can I come back on Monday." He denies any shortness of breath, nausea, vomiting, pain, otherwise any other complaint at this time. PHYSICAL EXAMINATION: VITAL SIGNS: Afebrile, pulse 83, blood pressure 170/89, saturation is well maintained. LUNGS: Bilateral vesicular sounds clear anteriorly. CARDIOVASCULAR: S1 and S2 normal. No rub or gallop. ABDOMEN: Soft, nontender. No organomegaly. EXTREMITIES: No edema. PSYCHIATRIC: The patient is pleasant and cooperative. Affect is normal. Insight is present. NEUROLOGIC: A and O x3. No focal deficits. Moving all 4 extremities. LABORATORY DATA: Workup shows white blood cells count 9.9, hemoglobin 9.1, platelet count 258, sodium is 132, potassium 3.8, creatinine is 5.9, glucose 246. Cultures from the lung biopsy and blood remain positive for pseudomonas. He made 1 liter of urine yesterday. CURRENT MEDICATIONS: Reviewed. ASSESSMENT: 1. Perm-A-Cath infection with pseudomonas with septic bilateral emboli in the lungs. 2. End-stage renal disease, on hemodialysis via left arm with a temporary catheter now. 3. History of diabetes, chronic kidney disease, and hypertensive chronic kidney disease. 4. History of anemia. 5. Hyperphosphatemia. 6. Secondary hypoparathyroidism. 7. Hypertension. 8. Esophageal ulceration. 9. Gastroparesis. 10. Coronary artery disease, status post coronary artery bypass grafting. 11. Urinary retention, likely autonomic neuropathy. RECOMMENDATIONS: The patient is planned for dialysis today as ordered. Also, we will plan for dialysis tomorrow as he has missed one session on Monday. His ANCA has come back as negative. Anti-GBM is pending. Then, we will continue the Aranesp during dialysis. Then, he will also get Hectorol during dialysis. Continue blood pressure medication. He is already on max dose of losartan. Continue with the multivitamin. May consider Reglan for his gastroparesis, then management for pseudomonas as per the ID. The patient is on cefepime. All questions were answered. The patient will be counseled to stay in the hospital. Explained the risks and consequences of leaving the hospital against medical advise. The patient understands and at this time, he is willing to stay in the hospital. Sancho Garrett MD
[2017-05-20] MEDS: Albuterol-Ipratrop 3 mg / 0.5 (3 ml) UD IH SCH ×4 (02:15→19:34)
--- NOTE | 2017-05-20 02:55 | CON ---
DATE: HISTORY OF PRESENT ILLNESS: The patient is a 56-year-old male male with multiple medical issues including end-stage renal disease, on hemodialysis. Initially, the patient was admitted on to the medical side for evaluation of generalized weakness and fever. The patient also has status post fall. The patient has a lot of medical problems including sepsis due to persistent pseudomonas bacteremia, lung cavitary lesion with septic emboli, and also growing pseudomonas. The patient also has dialysis catheter infection with no evidence of endocarditis. The patient also has diabetes, hypertension, coronary artery disease, history of CVA, and history of rhabdomyolysis. Initially, a consultation was called for evaluation of capacity to make disposition plan as well as participate in treatment plan because the patient does not want to have hemodialysis, also did not want hemodialysis catheter to be removed, but the patient for the past few days was complained with the treatment, was in agreement to have dialysis and catheter was replaced. The patient was seen today on dialysis unit, resting comfortably. The patient seems to be irritable, mildly annoyed by all of the questions, but overall tolerated interview well. The patient said that he has a lot of medical issues and he stayed in the hospital for a past month and at present moment he goes to go home. At the same time, the patient is acknowledging that he has difficulty to ambulate and he needs to continue treatment and he is willing to participate in treatment plan and he is willing to complete his treatment. The patient said that he is annoyed and irritable, but denied being depressed. The patient also denied thoughts of killing himself or others. The patient denied feeling anxious. The patient denied feeling hopeless. The patient denied hearing voices or seeing things. The patient's sleep is "I sleep like a baby." This casualty underwriter reviewed previous history, the patient has not been ever evaluated by psychiatrist before, but as per patient he had history of being seen by psychiatrist in the community. The patient was not able to recall what was the problem back down. PHYSICAL EXAMINATION: VITAL SIGNS: Seems to be stable. Temperature 98.4, pulse is 83, blood pressure 173/89, respirations 20, and oxygen saturation is 96%. MEDICATIONS: Reviewed. The patient is on Tylenol, DuoNeb, Norvasc, aspirin, Lipitor, cefepime, Colace, folic acid, Levemir, Humalog, Imdur, Cozaar, Reglan, metoprolol, Zofran, MiraLax, Lyrica, Flomax, thiamine, Nephro-Eleni as well as Ambien. LABORATORY DATA: Reviewed. Most recent was from today. There are no signs of leukocytosis. Hemoglobin and hematocrit 8.7 and 26.9. MENTAL STATUS EXAMINATION: The patient presented to be sleepy, easily arousable, was seen during the hemodialysis. Intermittent eye contact. Speech was underproductive, low volume. Mood described "I'm not depressed, I'm just annoyed and irritable." Affect was mood congruent. Thought process was coherent and goal directed. Thought content, the patient denied visual, auditory, or tactile hallucinations. Denied paranoid ideations. The patient denied thoughts of harming himself or others. Denies intents or plan. Insight and judgment is improving. Impulses are well controlled. IMPRESSION: Rule out adjustment disorder with the present anxious mood. Rule out mood disorder and anxiety disorder due to general medical condition, medical issues. Please see above and medical team for more detailed information. PLAN: Continue current management, supportive therapy. Continue Ambien as needed for insomnia. This casualty underwriter will follow up on this patient on Monday. There is no need for the patient to be seen over the weekend. Case discussed with Dr. Godwin. Dr. Godwin is aware bout this plan and was in agreement with that. Incase of emergency, call Dr. Ryan. Dr. Ryan is covering hospital over this weekend. Should you have any questions, give me a call back. Flora Hnery MD
[2017-05-20 07:14] LABS: BASO # 0.06 K/mm3 (0.0-2.0); BASO % 0.8 % (0.0-3.0); EOS # 0.2 (0.0-0.7); EOS % 2.5 % (1.5-5.0); GRAN # 4.72 (1.4-6.5); GRAN % 66.3 % (50.0-68.0); HEMATOCRIT 26.5 % (42.0-52.0); LYMPH # 1.7 (1.2-3.4); LYMPH % 23.4 % (22.0-35.0); MEAN CELL VOLUME 84.7 fl (80.0-105.0); MEAN CORPUSCULAR HEMOGLOBIN 26.8 pg (25.0-35.0); MEAN CORPUSCULAR HGB CONC 31.7 g/dl (31.0-37.0); MEAN PLATELET VOLUME 10.6 fl (7.0-11.0); MONO # 0.5 (0.1-0.6); RED CELL DISTRIBUTION WIDTH 17.4 % (11.5-14.5); WHITE BLOOD COUNT 7.1 10^3/ul (4.5-11.0)
[2017-05-20 07:39] LABS: CALCIUM 7.8 mg/dL (8.4-10.5); POTASSIUM 3.7 mmol/L (3.6-5.0)
[2017-05-20] MEDS: Pantoprazole 40 mg EC Tab PO SCH (08:30)
[2017-05-20] MEDS: Insulin Lispro (humaLOG) LOW Coverage SC SCH ×4 (08:30→21:44)
[2017-05-20] MEDS: Multivitamin Vitamin B Complex (Nephro-Vite) Tab PO SCH (08:31)
--- NOTE | 2017-05-20 11:22 | CP.PCM.PN ---
<Kayleigh Martinez - Last Filed: 05/20/17 12:11> Subjective - Date & Time of Evaluation Date of Evaluation: 05/20/17 Time of Evaluation: 11:18 - Subjective Subjective: Kayleigh Martinez DO, PGY-1, Hospitalist Service Patient seen and examined at bedside. Patient admits to passing a BM yesterday. Patient denies any chest pain, dyspnea, nausea, vomiting, or diarrhea. Nurse reports no events overnight. Objective - Vital Signs/Intake and Output Vital Signs (last 24 hours): Temp Pulse Resp BP Pulse Ox 98 F 76 19 135/81 95 05/20/17 08:18 05/20/17 08:18 05/20/17 08:18 05/20/17 08:18 05/20/17 08:18 Intake and Output: 05/20/17 05/20/17 06:59 18:59 Intake Total 200 Output Total 350 Balance -150 - Medications Medications: Current Medications Acetaminophen (Tylenol 325mg Tab) 650 mg PO Q4H PRN PRN Reason: Fever >100.4 F Last Admin: 05/19/17 22:32 Dose: 650 mg Albuterol/Ipratropium (Duoneb 3 Mg/0.5 Mg (3 Ml) Ud) 3 ml IH [id number] [facility] Last Admin: 05/20/17 07:14 Dose: Not Given Amlodipine Besylate (Norvasc) 10 mg PO DAILY [facility] Last Admin: 05/19/17 19:18 Dose: 10 mg Aspirin (Ecotrin) 81 mg PO DAILY [facility] Last Admin: 05/19/17 18:59 Dose: Not Given Atorvastatin Calcium (Lipitor) 40 mg PO DIN [facility] Last Admin: 05/19/17 19:16 Dose: 40 mg Darbepoetin Jabari (Aranesp) 60 mcg IVP ONCE [facility] Last Admin: 05/19/17 18:13 Dose: 60 mcg Docusate Sodium (Colace) 100 mg PO BID [facility] Last Admin: 05/19/17 18:57 Dose: Not Given Doxercalciferol (Hectorol) 1 mcg IV MWF [facility] Last Admin: 05/19/17 19:03 Dose: Not Given Folic Acid (Folic Acid) 1 mg PO DAILY [facility] Last Admin: 05/19/17 19:01 Dose: Not Given Heparin Sodium (Porcine) (Heparin) 5,000 units SC Q12 [facility] PRN Reason: Protocol Last Admin: 05/19/17 22:34 Dose: 5,000 units Cefepime HCl (Maxipime 1gm) 1 gm in 100 mls @ 100 mls/hr IVPB Q24H [facility] PRN Reason: Protocol Last Admin: 05/19/17 19:18 Dose: 100 mls/hr Insulin Detemir (Levemir) 12 unit SC HS [facility] Last Admin: 05/19/17 22:33 Dose: 12 unit Insulin Human Lispro (Humalog Low) 0 units SC ACHS [facility] PRN Reason: Protocol Last Admin: 05/20/17 08:30 Dose: 2 units Isosorbide Mononitrate (Imdur) 60 mg PO DAILY [facility] Last Admin: 05/19/17 19:17 Dose: 60 mg Losartan Potassium (Cozaar) 100 mg PO DAILY [facility] Last Admin: 05/19/17 19:17 Dose: 100 mg Metoclopramide HCl (Reglan) 5 mg IVP ACHS [facility] Last Admin: 05/20/17 08:30 Dose: 5 mg Metoprolol Tartrate (Lopressor) 50 mg PO BID [facility] Last Admin: 05/19/17 19:16 Dose: 50 mg Ondansetron HCl (Zofran Inj) 4 mg IVP Q4H PRN PRN Reason: Nausea/Vomiting Pantoprazole Sodium (Protonix Ec Tab) 40 mg PO ACB [facility] Last Admin: 05/20/17 08:30 Dose: 40 mg Polyethylene Glycol (Miralax) 17 gm PO DAILY [facility] Last Admin: 05/19/17 19:06 Dose: Not Given Pregabalin (Lyrica) 75 mg PO BID [facility] Last Admin: 05/19/17 19:17 Dose: 75 mg Tamsulosin HCl (Flomax) 0.4 mg PO DAILY [facility] Last Admin: 05/19/17 19:18 Dose: 0.4 mg Thiamine HCl (Vitamin B1 Tab) 100 mg PO DAILY [facility] Last Admin: 05/19/17 19:07 Dose: Not Given Vitamin B Complex/Vit C/Folic Acid (Nephro-Eleni) 1 tab PO 0800 [facility] Last Admin: 05/20/17 08:31 Dose: 1 tab Zolpidem Tartrate (Ambien) 5 mg PO HS PRN; Protocol PRN Reason: Insomnia Last Admin: 05/19/17 23:23 Dose: 5 mg - Labs Labs: 05/20/17 06:30 05/20/17 06:30 PT 13.4 Seconds (9.9-11.8) H 05/11/17 16:00 INR 1.24 (0.93-1.08) H 05/11/17 16:00 APTT 33.2 Seconds (23.7-30.8) H 05/11/17 16:00 - Constitutional Appears: Non-toxic, No Acute Distress - Head Exam Head Exam: ATRAUMATIC, NORMOCEPHALIC - Eye Exam Eye Exam: EOMI, Normal appearance, PERRL - ENT Exam ENT Exam: Mucous Membranes Moist, Normal Oropharynx - Neck Exam Neck Exam: Normal Inspection - Respiratory Exam Respiratory Exam: Clear to Ausculation Bilateral, NORMAL BREATHING PATTERN - Cardiovascular Exam Cardiovascular Exam: RRR, +S1, +S2 - GI/Abdominal Exam GI & Abdominal Exam: Soft, Normal Bowel Sounds, Rebound - Extremities Exam Extremities Exam: Normal Capillary Refill, Normal Inspection - Neurological Exam Neurological Exam: Alert, Awake, CN II-XII Intact, Oriented x3 - Psychiatric Exam Psychiatric exam: Depressed - Skin Skin Exam: Dry, Intact, Normal Color, Warm Assessment and Plan - Assessment and Plan (Free Text) Assessment: Patient is a 56 year old male with a past medical history of ESRD on HD, CABG, HTN, OH(s), DM, peripheral neuropathy, and history of GI bleed who was admitted for generalized weakness and fever. Patient was found to have multiple lesions in the lungs, likely secondary to septic emboli from perma-cath. Patient had been developing fevers and chills during hemodialysis. Blood cultures x 2 and Left Upper Lobe biopsy of suspicious lesion all grew Pseudomonas Aeruginosa, susceptible to Cefepime. ESTER and CT of A/P were negative for vegetation or infection. The patient was switched from Daptomycin and Merropenem to Cefepime. Patient's tunneled dialysis catheter was removed on 05/18/17 and now has a temporary left internal jugular hemodialysis catheter. Patient resumed dialysis on 05/19, had no fever or chills during this session and is scheduled for another session of HD today. Plan: 1) Pseudomonas bacteremia with septic emboli likely secondary to infected perma- cath, patient currently without fevers or leukocytosis - Blood cultures from 05/12, 05/13, and 05/15 all grew Pseudomonas aeruginosa. Left upper lobe biopsy of suspected septic emboli grew P. aeruginosa. Culture tip from perma-cath tip is growing gram negative yumiko, will follow final result. - Repeat blood cultures from 05/18 were negative x 24 hours - Transesophageal Echocardiogram was negative for any vegetations and CT of A/ P was negative for any intra-abdominal infection. - Patient is on Cefepime day #3. - Infectious Disease is on the case, Dr. See, who recommends to continue Cefepime for 4-6 weeks and treat this as an endovascular infection with weekly ESR, CRP, CBC, CMP. - Perma-cath removed and left temporary IJ HD catheter placed (05/18). 2) ESRD - Prior to dialysis, patient's BUN/Cr was 53/6.4, but after his HD session yesterday his BUN/Cr reads 32/3.9 as of this morning. - Patient scheduled for HD session today - Dr. Garrett, nephrology is on the case - Aranesp 60 mcg IVP per Nephrology - Hectoral per nephrology - Nephro-Eleni per nephrology - Vitamin B1 100 mg PO daily 3) Hypertension - Losartan 100 mg - Metoprolol 50 mg BID - Amlodipine 10 mg 4) CAD - Isosorbide mononitrate - Lipitor 40 mg HS 5) DM II with gastroparesis - Levemir 12 units HS - ISS: Insulin Lispro- low dose ACHS - Reglan 5 mg IVP ACHS 6) GI prophylaxis - Pantoprazole 40 mg 7) Peripheral Neuropathy - Pregabalin 75 mg BID 8) DVT prophylaxis - Heparin 5,000 units SC q12h 9) Palliative Care/Advanced Directives - Yesika Moulton consulted - Patient is now DNR/DNI 10) Concern for depression - Psychiatry consulted, Dr. Hines, recommendations appreciated 11) Urinary retention: patient failed voiding trial - Tamsulosin 0.4 mg PO daily - Recommend outpatient urology follow up 12) Constipation - Miralax 17 mg PO - Other PRN bowel regiment per OCT 13) Insomnia, unspecified - 5 mg Ambien HS PRN FEN: HHD, renal dialysis diet Prognosis: Guarded, poor <Lauren Godwin - Last Filed: 05/20/17 15:39> Objective - Vital Signs/Intake and Output Vital Signs (last 24 hours): Temp Pulse Resp BP Pulse Ox 98 F 87 19 165/83 H 95 05/20/17 08:18 05/20/17 15:15 05/20/17 08:18 05/20/17 15:16 05/20/17 08:18 Intake and Output: 05/20/17 05/20/17 06:59 18:59 Intake Total 200 Output Total 350 Balance -150 - Medications Medications: Current Medications Acetaminophen (Tylenol 325mg Tab) 650 mg PO Q4H PRN PRN Reason: Fever >100.4 F Last Admin: 05/19/17 22:32 Dose: 650 mg Albuterol/Ipratropium (Duoneb 3 Mg/0.5 Mg (3 Ml) Ud) 3 ml IH [id number] [facility] Last Admin: 05/20/17 13:27 Dose: Not Given Amlodipine Besylate (Norvasc) 10 mg PO DAILY [facility] Last Admin: 05/20/17 15:16 Dose: 10 mg Aspirin (Ecotrin) 81 mg PO DAILY [facility] Last Admin: 05/20/17 15:16 Dose: 81 mg Atorvastatin Calcium (Lipitor) 40 mg PO DIN [facility] Last Admin: 05/19/17 19:16 Dose: 40 mg Darbepoetin Jabari (Aranesp) 60 mcg IVP ONCE [facility] Last Admin: 05/19/17 18:13 Dose: 60 mcg Docusate Sodium (Colace) 100 mg PO BID [facility] Last Admin: 05/20/17 15:16 Dose: 100 mg Doxercalciferol (Hectorol) 1 mcg IV MWF [facility] Last Admin: 05/19/17 19:03 Dose: Not Given Folic Acid (Folic Acid) 1 mg PO DAILY [facility] Last Admin: 05/20/17 15:16 Dose: 1 mg Heparin Sodium (Porcine) (Heparin) 5,000 units SC Q12 [facility] PRN Reason: Protocol Last Admin: 05/20/17 15:15 Dose: 5,000 units Cefepime HCl (Maxipime 1gm) 1 gm in 100 mls @ 100 mls/hr IVPB Q24H [facility] PRN Reason: Protocol Last Admin: 05/20/17 15:13 Dose: 100 mls/hr Insulin Detemir (Levemir) 12 unit SC HS [facility] Last Admin: 05/19/17 22:33 Dose: 12 unit Insulin Human Lispro (Humalog Low) 0 units SC ACHS [facility] PRN Reason: Protocol Last Admin: 05/20/17 14:57 Dose: Not Given Isosorbide Mononitrate (Imdur) 60 mg PO DAILY [facility] Last Admin: 05/20/17 15:17 Dose: 60 mg Losartan Potassium (Cozaar) 100 mg PO DAILY [facility] Last Admin: 05/20/17 15:16 Dose: 100 mg Metoclopramide HCl (Reglan) 5 mg IVP ACHS [facility] Last Admin: 05/20/17 14:55 Dose: Not Given Metoprolol Tartrate (Lopressor) 50 mg PO BID [facility] Last Admin: 05/20/17 15:15 Dose: 50 mg Ondansetron HCl (Zofran Inj) 4 mg IVP Q4H PRN PRN Reason: Nausea/Vomiting Pantoprazole Sodium (Protonix Ec Tab) 40 mg PO ACB [facility] Last Admin: 05/20/17 08:30 Dose: 40 mg Polyethylene Glycol (Miralax) 17 gm PO DAILY [facility] Last Admin: 05/20/17 15:14 Dose: 17 gm Pregabalin (Lyrica) 75 mg PO BID [facility] Last Admin: 05/20/17 15:15 Dose: 75 mg Tamsulosin HCl (Flomax) 0.4 mg PO DAILY [facility] Last Admin: 05/20/17 15:16 Dose: 0.4 mg Thiamine HCl (Vitamin B1 Tab) 100 mg PO DAILY [facility] Last Admin: 05/20/17 15:16 Dose: 100 mg Vitamin B Complex/Vit C/Folic Acid (Nephro-Eleni) 1 tab PO 0800 [facility] Last Admin: 05/20/17 08:31 Dose: 1 tab Zolpidem Tartrate (Ambien) 5 mg PO HS PRN; Protocol PRN Reason: Insomnia Last Admin: 05/19/17 23:23 Dose: 5 mg - Labs Labs: 05/20/17 06:30 05/20/17 06:30 PT 13.4 Seconds (9.9-11.8) H 05/11/17 16:00 INR 1.24 (0.93-1.08) H 05/11/17 16:00 APTT 33.2 Seconds (23.7-30.8) H 05/11/17 16:00 Attending/Attestation - Attestation I have personally seen and examined this patient.: Yes I have fully participated in the care of the patient.: Yes I have reviewed all pertinent clinical information, including history, physical exam and plan: Yes Notes (Text): attending note; Patient seen and examined with the resident. Patient is a 56 year old male with a history of ESRD on HD, CAD, CABG, HTN, OH, DM-2, peripheral neuropathy, history of falls, history of CVA, and GI bleed who is being admitted for evaluation of generalized weakness fever due to HCAP vs UTI. CT chest showed possible septic emboli. lung biopsy showed Pseudomonas infection. no malignancy or granulomatous tissue seen. Blood culture is positive for Pseudomonas. tunneled dialysis catheter removed. Currently had left IJ temporary hemodialysis catheter. we will be getting hemodialysis today. Status post ESTER; negative for any vegetations. Continue IV cefepime. diabetic gastroparesis; continue Reglan when necessary. Continue Colace and MiraLAX for constipation. patient has Macias catheter. failed voiding trial. Continue by mouth Flomax. Needs outpatient urology follow-up. case discussed with ID in detail. Patient needs 4-6 weeks of IV antibiotics. Case discussed with case specialist for discharge planning. Depression; psychiatric evaluation requested.
--- NOTE | 2017-05-20 11:42 | PN ---
DATE: 05/20/2017 SUBJECTIVE: The patient is in bed, in no acute distress, and nontoxic. PHYSICAL EXAMINATION: VITAL SIGNS: Temperature is 98, blood pressure is 130/80, and respiratory rate of 18. HEENT: Unremarkable. NECK: Supple. LUNGS: Decreased breath sounds. HEART: Normal S1 and S2. ABDOMEN: Soft. LABORATORY DATA: Examination reveals the patient's white count is 7.1 and hemoglobin of 8. Chemistries reveals a BUN of 32, creatinine of 3.9, and procalcitonin is 0.15. Urinalysis is noted. Blood cultures reveals that initial blood cultures are positive for Pseudomonas and sputum culture has Pseudomonas from the lung nodule. ASSESSMENT AND PLAN: He is a 56-year-old male with sepsis with Pseudomonas bacteremia and Pseudomonas lung cavitary lesion, septic emboli, also growing Pseudomonas, and probable Perm-A-Cath infection. No evidence of endocarditis on transesophageal echocardiogram, no evidence of intraabdominal infection on CAT scan, status post removal of the Perm-A-Cath and placement of a temporary dialysis catheter, history of Klebsiella bacteremia, largely catheter infection, status post removal of tunneled infection, and diabetes, hypertension, endstage renal disease on hemodialysis, and coronary artery disease. He is on cefepime and will need 4 to 6 weeks of antibiotics and with weekly CBC, SMA-18, sedimentation rate, and C-reactive protein. We will follow with you. Boyd Green MD
[2017-05-20] MEDS: Cefepime 1gm in NS 100ml 1 GM/100 ML BAG IVPB SCH (15:13)
[2017-05-20] MEDS: POLYETHYLENE GLYCOL 3350 17 GM/Dose PACKET PO SCH (15:14)
[2017-05-20] MEDS: Darbepoetin Alfa 60 mcg/ml Inj IVP SCH (15:53)
[2017-05-20] MEDS: Insulin Detemir 100 units/ml Vial (Levemir) SC SCH (21:44)
[2017-05-21] MEDS: Albuterol-Ipratrop 3 mg / 0.5 (3 ml) UD IH SCH ×4 (01:30→19:52)
[2017-05-21 06:33] LABS: BASO # 0.04 K/mm3 (0.0-2.0); BASO % 0.5 % (0.0-3.0); CALCIUM 8.4 mg/dL (8.4-10.5); EOS # 0.2 (0.0-0.7); GRAN # 4.92 (1.4-6.5); GRAN % 67.3 % (50.0-68.0); HEMATOCRIT 27.1 % (42.0-52.0); LYMPH # 1.7 (1.2-3.4); MEAN CELL VOLUME 85.5 fl (80.0-105.0); MEAN CORPUSCULAR HEMOGLOBIN 27.1 pg (25.0-35.0); MEAN CORPUSCULAR HGB CONC 31.7 g/dl (31.0-37.0); MEAN PLATELET VOLUME 10.9 fl (7.0-11.0); MONO # 0.5 (0.1-0.6); MONO % 7.2 % (1.0-6.0); POTASSIUM 3.9 mmol/L (3.6-5.0); RED CELL DISTRIBUTION WIDTH 17.7 % (11.5-14.5); WHITE BLOOD COUNT 7.3 10^3/ul (4.5-11.0)
[2017-05-21] MEDS: Multivitamin Vitamin B Complex (Nephro-Vite) Tab PO SCH (08:15)
[2017-05-21] MEDS: Pantoprazole 40 mg EC Tab PO SCH (08:15)
[2017-05-21] MEDS: Insulin Lispro (humaLOG) LOW Coverage SC SCH ×4 (08:16→21:36)
[2017-05-21] MEDS: POLYETHYLENE GLYCOL 3350 17 GM/Dose PACKET PO SCH (09:59)
--- NOTE | 2017-05-21 12:30 | PN ---
DATE: 05/21/2017 SUBJECTIVE: The patient is in bed, in no acute distress and nontoxic. PHYSICAL EXAMINATION: VITAL SIGNS: Temperature is 98, blood pressure is 150/80, respiratory rate of 18. HEENT: Unremarkable. NECK: Supple. LUNGS: Decreased breath sounds. HEART: Normal S1 and S2. ABDOMEN: Soft and nontender. No rebound. No guarding. LABORATORY DATA: Examination reveals the white count of 7.3, hemoglobin of 8, platelets of 302. Chemistries; BUN of 21, creatinine of 3.2. Urinalysis is noted. Microbiology reveals catheter tip culture is positive for Pseudomonas aeruginosa, sensitive to Cipro and the body fluid culture of the lung nodule is positive for Pseudomonas, also sensitive to Cipro. Blood cultures are positive. The patient did have a ESTER by Dr. Mcdermott. No vegetations were seen. However, the tricuspid valve leaflets were displayed thickening, but no vegetation on tricuspid valve. ASSESSMENT AND PLAN: He is a 56-year-old male with sepsis with Pseudomonas bacteremia with Pseudomonas lung cavitary lesion with septic emboli and Pseudomonas from the catheter tip culture, no evidence of endocarditis on ESTER. 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 We will need prolong antibiotic therapy. Currently on cefepime. We will treat 4 to 6 weeks of intravenous antibiotic with cefepime for tricuspid valve endocarditis with pulmonary emboli, although the ESTER is negative. There is question of tricuspid valve thickening, no vegetation was seen. Review of orders confirms the patient to be on cefepime. Boyd Green MD
[2017-05-21] MEDS: Cefepime 1gm in NS 100ml 1 GM/100 ML BAG IVPB SCH (12:34)
--- NOTE | 2017-05-21 13:42 | CP.PCM.PN ---
<Kayleigh Martinez - Last Filed: 05/21/17 13:45> Subjective - Date & Time of Evaluation Date of Evaluation: 05/21/17 Time of Evaluation: 13:38 - Subjective Subjective: Kayleigh Martinez Do, PGy-1, Hospitalist Service Patient seen and examined at bedside. Patient denies fever and chills with dialysis. He also passed a BM. Nurse reports no events overnight. Objective - Vital Signs/Intake and Output Vital Signs (last 24 hours): Temp Pulse Resp BP Pulse Ox 98.6 F 88 18 158/85 H 95 05/21/17 07:00 05/21/17 09:59 05/21/17 07:00 05/21/17 09:59 05/21/17 07:00 Intake and Output: 05/21/17 05/21/17 06:59 18:59 Intake Total 960 Output Total 700 Balance 260 - Medications Medications: Current Medications Acetaminophen (Tylenol 325mg Tab) 650 mg PO Q4H PRN PRN Reason: Fever >100.4 F Last Admin: 05/19/17 22:32 Dose: 650 mg Albuterol/Ipratropium (Duoneb 3 Mg/0.5 Mg (3 Ml) Ud) 3 ml IH [id number] [facility] Last Admin: 05/21/17 13:30 Dose: Not Given Amlodipine Besylate (Norvasc) 10 mg PO DAILY [facility] Last Admin: 05/21/17 09:59 Dose: 10 mg Aspirin (Ecotrin) 81 mg PO DAILY [facility] Last Admin: 05/21/17 09:59 Dose: 81 mg Atorvastatin Calcium (Lipitor) 40 mg PO DIN [facility] Last Admin: 05/20/17 17:22 Dose: 40 mg Darbepoetin Jabari (Aranesp) 60 mcg IVP ONCE [facility] Last Admin: 05/20/17 15:53 Dose: 60 mcg Docusate Sodium (Colace) 100 mg PO BID [facility] Last Admin: 05/21/17 09:59 Dose: 100 mg Doxercalciferol (Hectorol) 1 mcg IV MWF [facility] Last Admin: 05/19/17 19:03 Dose: Not Given Folic Acid (Folic Acid) 1 mg PO DAILY [facility] Last Admin: 05/21/17 09:59 Dose: 1 mg Heparin Sodium (Porcine) (Heparin) 5,000 units SC Q12 MARYANN PRN Reason: Protocol Last Admin: 05/21/17 09:57 Dose: 5,000 units Cefepime HCl (Maxipime 1gm) 1 gm in 100 mls @ 100 mls/hr IVPB Q24H MARYANN PRN Reason: Protocol Last Admin: 05/21/17 12:34 Dose: 100 mls/hr Insulin Detemir (Levemir) 20 unit SC HS [facility] Insulin Human Lispro (Humalog Low) 0 units SC ACHS MARYANN PRN Reason: Protocol Last Admin: 05/21/17 12:34 Dose: 2 units Isosorbide Mononitrate (Imdur) 60 mg PO DAILY [facility] Last Admin: 05/21/17 09:59 Dose: 60 mg Losartan Potassium (Cozaar) 100 mg PO DAILY [facility] Last Admin: 05/21/17 09:59 Dose: 100 mg Metoclopramide HCl (Reglan) 5 mg IVP ACHS [facility] Last Admin: 05/21/17 12:34 Dose: 5 mg Metoprolol Tartrate (Lopressor) 50 mg PO BID [facility] Last Admin: 05/21/17 09:59 Dose: 50 mg Ondansetron HCl (Zofran Inj) 4 mg IVP Q4H PRN PRN Reason: Nausea/Vomiting Pantoprazole Sodium (Protonix Ec Tab) 40 mg PO ACB [facility] Last Admin: 05/21/17 08:15 Dose: 40 mg Polyethylene Glycol (Miralax) 17 gm PO DAILY [facility] Last Admin: 05/21/17 09:59 Dose: 17 gm Pregabalin (Lyrica) 75 mg PO BID [facility] Last Admin: 05/21/17 09:59 Dose: 75 mg Tamsulosin HCl (Flomax) 0.4 mg PO DAILY [facility] Last Admin: 05/21/17 09:59 Dose: 0.4 mg Thiamine HCl (Vitamin B1 Tab) 100 mg PO DAILY [facility] Last Admin: 05/21/17 09:58 Dose: 100 mg Vitamin B Complex/Vit C/Folic Acid (Nephro-Eleni) 1 tab PO 0800 [facility] Last Admin: 05/21/17 08:15 Dose: 1 tab Zolpidem Tartrate (Ambien) 5 mg PO HS PRN; Protocol PRN Reason: Insomnia Last Admin: 05/20/17 21:42 Dose: 5 mg - Labs Labs: 05/21/17 06:00 05/21/17 06:00 PT 13.4 Seconds (9.9-11.8) H 05/11/17 16:00 INR 1.24 (0.93-1.08) H 05/11/17 16:00 APTT 33.2 Seconds (23.7-30.8) H 05/11/17 16:00 - Head Exam Head Exam: ATRAUMATIC, NORMOCEPHALIC - Eye Exam Eye Exam: EOMI, Normal appearance - ENT Exam ENT Exam: Mucous Membranes Moist, Normal Oropharynx - Neck Exam Neck Exam: Normal Inspection. absent: Tenderness - Respiratory Exam Respiratory Exam: Clear to Ausculation Bilateral, NORMAL BREATHING PATTERN. absent: Rales - Cardiovascular Exam Cardiovascular Exam: RRR, +S1, +S2 - GI/Abdominal Exam GI & Abdominal Exam: Soft, Normal Bowel Sounds. absent: Guarding, Rebound - Extremities Exam Extremities Exam: Normal Capillary Refill, Normal Inspection. absent: Pedal Edema - Back Exam Back Exam: NORMAL INSPECTION. absent: CVA tenderness (L), CVA tenderness (R) - Neurological Exam Neurological Exam: Alert, Awake, CN II-XII Intact, Oriented x3 - Psychiatric Exam Psychiatric exam: Depressed - Skin Skin Exam: Dry, Intact, Normal Color, Warm Assessment and Plan - Assessment and Plan (Free Text) Assessment: Patient is a 56 year old male with a past medical history of ESRD on HD, CABG, HTN, OK(s), DM, peripheral neuropathy, and history of GI bleed who was admitted for generalized weakness and fever. Patient was found to have multiple lesions in the lungs, likely secondary to septic emboli from perma-cath. Patient had been developing fevers and chills during hemodialysis. Blood cultures x 2 and Left Upper Lobe biopsy of suspicious lesion all grew Pseudomonas Aeruginosa, susceptible to Cefepime. ESTER and CT of A/P were negative for vegetation or infection. The patient was switched from Daptomycin and Merropenem to Cefepime. Patient's tunneled dialysis catheter was removed on 05/18/17 and now has a temporary left internal jugular hemodialysis catheter. Patient resumed dialysis on 05/19 and 05/20 and had no fever or chills. Plan: 1) Pseudomonas bacteremia, with septic emboli to the lung, likely secondary to infection of perma-cath. - Blood cultures from 05/12, 05/13, and 05/15 all grew Pseudomonas aeruginosa. Left upper lobe biopsy of suspected septic emboli grew P. aeruginosa. Culture of tip from perma-cath tip grew P. aeruginosa - Repeat blood cultures from 05/18 were negative x 24 hours. - Transesophageal Echocardiogram was negative for any vegetations, but did show thickening of the valve leaflets. - CT of A/P was negative for any intra-abdominal infection. - Patient is on Cefepime day #4. - Infectious Disease is on the case, Dr. See and Dr. Green, appreciate recommendations of intravenous Cefepime for 4-6 weeks duration, and to treat this as Tricuspid Valve endocarditis/endovascular infection. - Perma-cath removed and left temporary IJ HD catheter placed (05/18). 2) ESRD - Patient dialysis schedule per nephrology, appreciate recommendations - Dr. Garrett, nephrology is on the case - Aranesp 60 mcg IVP per Nephrology - Hectoral per nephrology - Nephro-Eleni per nephrology - Vitamin B1 100 mg PO daily 3) Hypertension - Losartan 100 mg - Metoprolol 50 mg BID - Amlodipine 10 mg 4) CAD - Isosorbide mononitrate - Lipitor 40 mg HS 5) DM II with gastroparesis - Levemir 12 units HS - ISS: Insulin Lispro- low dose ACHS - Reglan 5 mg IVP ACHS 6) GI prophylaxis - Pantoprazole 40 mg 7) Peripheral Neuropathy - Pregabalin 75 mg BID 8) DVT prophylaxis - Heparin 5,000 units SC q12h 9) Palliative Care/Advanced Directives - Yesika Moulton consulted - Patient is now DNR/DNI 10) Concern for depression - Psychiatry consulted, Dr. Hines, recommendations appreciated 11) Urinary retention: patient failed voiding trial - Tamsulosin 0.4 mg PO daily - Recommend outpatient urology follow up 12) Constipation - Miralax 17 mg PO - Other PRN bowel regiment per OCT 13) Insomnia, unspecified - 5 mg Ambien HS PRN FEN: HHD, renal dialysis diet Prognosis: Guarded, poor <Lauren Godwin - Last Filed: 05/21/17 15:33> Objective - Vital Signs/Intake and Output Vital Signs (last 24 hours): Temp Pulse Resp BP Pulse Ox 98.6 F 88 18 158/85 H 95 05/21/17 07:00 05/21/17 09:59 05/21/17 07:00 05/21/17 09:59 05/21/17 07:00 Intake and Output: 05/21/17 05/21/17 06:59 18:59 Intake Total 960 Output Total 700 Balance 260 - Medications Medications: Current Medications Acetaminophen (Tylenol 325mg Tab) 650 mg PO Q4H PRN PRN Reason: Fever >100.4 F Last Admin: 05/19/17 22:32 Dose: 650 mg Albuterol/Ipratropium (Duoneb 3 Mg/0.5 Mg (3 Ml) Ud) 3 ml IH [id number] [facility] Last Admin: 05/21/17 13:30 Dose: Not Given Amlodipine Besylate (Norvasc) 10 mg PO DAILY [facility] Last Admin: 05/21/17 09:59 Dose: 10 mg Aspirin (Ecotrin) 81 mg PO DAILY [facility] Last Admin: 05/21/17 09:59 Dose: 81 mg Atorvastatin Calcium (Lipitor) 40 mg PO DIN [facility] Last Admin: 05/20/17 17:22 Dose: 40 mg Darbepoetin Jabari (Aranesp) 60 mcg IVP ONCE [facility] Last Admin: 05/20/17 15:53 Dose: 60 mcg Docusate Sodium (Colace) 100 mg PO BID [facility] Last Admin: 05/21/17 09:59 Dose: 100 mg Doxercalciferol (Hectorol) 1 mcg IV MWF [facility] Last Admin: 05/19/17 19:03 Dose: Not Given Folic Acid (Folic Acid) 1 mg PO DAILY [facility] Last Admin: 05/21/17 09:59 Dose: 1 mg Heparin Sodium (Porcine) (Heparin) 5,000 units SC Q12 MARYANN PRN Reason: Protocol Last Admin: 05/21/17 09:57 Dose: 5,000 units Cefepime HCl (Maxipime 1gm) 1 gm in 100 mls @ 100 mls/hr IVPB Q24H MARYANN PRN Reason: Protocol Last Admin: 05/21/17 12:34 Dose: 100 mls/hr Insulin Detemir (Levemir) 20 unit SC HS MARYANN Insulin Human Lispro (Humalog Low) 0 units SC ACHS [facility] PRN Reason: Protocol Last Admin: 05/21/17 12:34 Dose: 2 units Isosorbide Mononitrate (Imdur) 60 mg PO DAILY [facility] Last Admin: 05/21/17 09:59 Dose: 60 mg Losartan Potassium (Cozaar) 100 mg PO DAILY [facility] Last Admin: 05/21/17 09:59 Dose: 100 mg Metoclopramide HCl (Reglan) 5 mg IVP ACHS [facility] Last Admin: 05/21/17 12:34 Dose: 5 mg Metoprolol Tartrate (Lopressor) 50 mg PO BID [facility] Last Admin: 05/21/17 09:59 Dose: 50 mg Ondansetron HCl (Zofran Inj) 4 mg IVP Q4H PRN PRN Reason: Nausea/Vomiting Pantoprazole Sodium (Protonix Ec Tab) 40 mg PO ACB [facility] Last Admin: 05/21/17 08:15 Dose: 40 mg Polyethylene Glycol (Miralax) 17 gm PO DAILY [facility] Last Admin: 05/21/17 09:59 Dose: 17 gm Pregabalin (Lyrica) 75 mg PO BID [facility] Last Admin: 05/21/17 09:59 Dose: 75 mg Tamsulosin HCl (Flomax) 0.4 mg PO DAILY [facility] Last Admin: 05/21/17 09:59 Dose: 0.4 mg Thiamine HCl (Vitamin B1 Tab) 100 mg PO DAILY [facility] Last Admin: 05/21/17 09:58 Dose: 100 mg Vitamin B Complex/Vit C/Folic Acid (Nephro-Eleni) 1 tab PO 0800 [facility] Last Admin: 05/21/17 08:15 Dose: 1 tab Zolpidem Tartrate (Ambien) 5 mg PO HS PRN; Protocol PRN Reason: Insomnia Last Admin: 05/20/17 21:42 Dose: 5 mg - Labs Labs: 05/21/17 06:00 05/21/17 06:00 PT 13.4 Seconds (9.9-11.8) H 05/11/17 16:00 INR 1.24 (0.93-1.08) H 05/11/17 16:00 APTT 33.2 Seconds (23.7-30.8) H 05/11/17 16:00 Attending/Attestation - Attestation I have personally seen and examined this patient.: Yes I have fully participated in the care of the patient.: Yes I have reviewed all pertinent clinical information, including history, physical exam and plan: Yes Notes (Text): 05/21/17 15:30 attending note; Patient seen and examined with the resident. Patient is a 56 year old male with a history of ESRD on HD, CAD, CABG, HTN, OK, DM-2, peripheral neuropathy, history of falls, history of CVA, and GI bleed who is being admitted for evaluation of generalized weakness fever due to HCAP vs UTI. Patient has Pseudomonas bacteremia/septic emboli in the lung. lung biopsy showed Pseudomonas infection. tunneled dialysis catheter removed. Currently had left IJ temporary hemodialysis catheter. The patient got dialysis yesterday. Status post ESTER; negative for any vegetations. Continue IV cefepime. diabetic gastroparesis; continue Reglan when necessary. Continue Colace and MiraLAX for constipation. patient has Macias catheter. failed voiding trial. Continue by mouth Flomax. Needs outpatient urology follow-up. case discussed with ID in detail. Patient needs 4-6 weeks of IV antibiotics. Case discussed with lining caser for discharge planning. Depression; psychiatric evaluation appreciated. Will follow-up with psychiatrist. Upon discharge the patient will follow-up with PMD .
[2017-05-21] MEDS: Darbepoetin Alfa 60 mcg/ml Inj IVP SCH (17:17)
[2017-05-21] MEDS: Insulin Detemir 100 units/ml Vial (Levemir) SC SCH (21:31)
[2017-05-22] MEDS: Albuterol-Ipratrop 3 mg / 0.5 (3 ml) UD IH SCH ×4 (01:56→20:00)
[2017-05-22 07:24] LABS: BASO # 0.06 K/mm3 (0.0-2.0); BASO % 0.8 % (0.0-3.0); EOS # 0.2 (0.0-0.7); EOS % 2.2 % (1.5-5.0); GRAN # 5.13 (1.4-6.5); GRAN % 69.8 % (50.0-68.0); HEMATOCRIT 27.8 % (42.0-52.0); LYMPH # 1.6 (1.2-3.4); MEAN CELL VOLUME 84.5 fl (80.0-105.0); MEAN CORPUSCULAR HEMOGLOBIN 27.1 pg (25.0-35.0); MEAN PLATELET VOLUME 10.4 fl (7.0-11.0); MONO # 0.4 (0.1-0.6); MONO % 5.2 % (1.0-6.0); RED CELL DISTRIBUTION WIDTH 17.3 % (11.5-14.5); WHITE BLOOD COUNT 7.4 10^3/ul (4.5-11.0)
[2017-05-22 07:44] LABS: CALCIUM 8.6 mg/dL (8.4-10.5); POTASSIUM 3.7 mmol/L (3.6-5.0)
[2017-05-22] MEDS: Insulin Lispro (humaLOG) LOW Coverage SC SCH ×4 (08:16→21:29)
[2017-05-22 08:25] VITALS: RESP 20
[2017-05-22] MEDS: Pantoprazole 40 mg EC Tab PO SCH (08:42)
--- NOTE | 2017-05-22 09:55 | PN ---
DATE: 05/20/2017 CHIEF COMPLAINT: "When can I go home?" HISTORY OF PRESENT ILLNESS AND REVIEW OF SYSTEMS: Overnight event noted. The patient remained stable. Denies any complaint at this time. He is frustrated for being in the hospital, wants to get out of the hospital as soon as possible. He is asking can he go home today or tomorrow. He has dialysis done today. Denies any breathing issue. No nausea, vomiting, or stomach pain. He is not happy with the food. PHYSICAL EXAMINATION: GENERAL: The patient is frustrated, but not in acute distress. He is cooperative. VITAL SIGNS: Noted stable. Afebrile. Pulse is 89, blood pressure 165/85, saturation is well maintained. CARDIOVASCULAR: S1 and S2 normal. No murmur. LUNGS: Bilateral vesicular breath sounds clear. ABDOMEN: Soft, nontender. No organomegaly could be appreciated. EXTREMITIES: No edema. SKIN: No rashes or ulcerations. Turgor is normal. LYMPHATIC: No lymphadenopathy. HEMATOLOGIC: No active bleeding except the patient has a left IJ temporary catheter. LABORATORY DATA: Workup showed white blood cell count 7.1, hemoglobin 8.4, platelet count is 259. Sodium is 137, potassium 3.7, creatinine 3.9. His catheter tip culture also coming back positive for Gram negative rods. His blood culture from 05/18/2017 so far has been negative. CURRENT MEDICATIONS: Reviewed. ASSESSMENT: 1. End-stage renal disease, Perma-Cath sepsis with Pseudomonas with septic emboli in the parietal lung with Pseudomonas. 2. Diabetic kidney disease, hypertension, chronic kidney disease with end-stage renal disease, on hemodialysis. 3. Coronary artery disease, status post coronary artery bypass graft, history of diabetes, hypertension, hyperlipidemia, anemia, hyperphosphatemia, secondary hyperparathyroidism, vitamin D deficiency, esophageal ulceration, gastroparesis, urinary retention, status post Macias catheter. RECOMMENDATIONS: Given extra treatment dialysis today. We will plan for next dialysis on Monday. His ANCA and anti-GBM has been negative. Continue the Aranesp during dialysis. Continue Hectorol during dialysis. Continue blood pressure medication. The patient is already on max dose of losartan. Continue multivitamin. May consider Reglan for his gastroparesis. Then continue antibiotic as per ID. The patient is going to need 4 to 6 weeks of IV antibiotics. The patient in the hospital, then Perma-Cath placement once his blood cultures are negative. Also, will likely need a midline or PICC line for long-term IV antibiotic. All questions were answered. Please call if any questions. Sancho Garrett MD
[2017-05-22] MEDS ORDERED: Doxercalciferol 4 mcg/2 ml Inj IV SCH (10:00)
--- NOTE | 2017-05-22 10:01 | PN ---
DATE: 05/21/2017 CHIEF COMPLAINT: None at this time. HISTORY OF PRESENT ILLNESS AND REVIEW OF SYSTEMS: The patient feels well. He denies any nausea, vomiting, chest pain, palpitations, shortness of breath, cough, fevers, or chills. PHYSICAL EXAMINATION: GENERAL: The patient appeared comfortable, not in acute distress, pleasant, cooperative. VITAL SIGNS: Stable. Afebrile, blood pressure 158/85. LUNGS: Bilateral vesicular sounds clear. Bilateral air entry is normal and symmetrical. CARDIOVASCULAR: S1 is normal. No murmur or rub. ABDOMEN: Soft and nontender. No organomegaly could be appreciated. EXTREMITIES: No edema. The patient has forefoot amputation. PSYCHIATRIC: The patient is cooperative. Judgment is appropriate. Affect is normal. Insight is present as well. NEUROLOGIC: Alert and oriented x3. No focal deficit. Moving all 4 extremities. LABORATORY DATA: Workup shows white blood cell count is 7.3, hemoglobin 8.6, and platelet count 302. Sodium is 136, potassium 3.8, creatinine 0.2, and glucose 204. ASSESSMENT: 1. Sepsis with Pseudomonas with Perm-A-Cath infection with septic emboli in the lung. 2. hemodialysis with Perm-A-Cath, now temporary on the left side. 3. Diabetes mellitus, hypertension with diabetic chronic kidney disease and hypertensive chronic kidney disease. 4. Congestive heart failure. 5. Status post coronary artery bypass grafting. 6. Gastroparesis. 7. Esophageal ulcer. 8. Neurogenic bladder. RECOMMENDATIONS: The patient planned for dialysis tomorrow. No acute need for dialysis today. Continue blood pressure medications. dialysis, also during dialysis. Continue with the blood pressure medications. Antibiotic as per the ID. Plan for Perm-A-Cath placement when blood culture remains negative for at least 5 days and then the patient can be planned for discharge outpatient antibiotics. All questions were answered. Sancho Garrett MD
[2017-05-22] MEDS: POLYETHYLENE GLYCOL 3350 17 GM/Dose PACKET PO SCH (11:12)
[2017-05-22] MEDS: Multivitamin Vitamin B Complex (Nephro-Vite) Tab PO SCH (11:12)
[2017-05-22 11:41] LABS: BASO # 0.08 K/mm3 (0.0-2.0); EOS # 0.2 (0.0-0.7); GRAN # 5.6 (1.4-6.5); GRAN % 73.1 % (50.0-68.0); HEMATOCRIT 26.2 % (42.0-52.0); LYMPH # 1.4 (1.2-3.4); LYMPH % 17.9 % (22.0-35.0); MEAN CELL VOLUME 84.2 fl (80.0-105.0); MEAN CORPUSCULAR HEMOGLOBIN 27.3 pg (25.0-35.0); MEAN CORPUSCULAR HGB CONC 32.4 g/dl (31.0-37.0); MEAN PLATELET VOLUME 10.5 fl (7.0-11.0); MONO # 0.5 (0.1-0.6); RED CELL DISTRIBUTION WIDTH 17.5 % (11.5-14.5); WHITE BLOOD COUNT 7.7 10^3/ul (4.5-11.0)
[2017-05-22 11:51] LABS: MAGNESIUM 1.6 mg/dL (1.7-2.2); PHOSPHOROUS 3.3 mg/dL (2.5-4.5)
--- NOTE | 2017-05-22 13:06 | PN ---
DATE: 05/22/2017 CARDIOLOGY FOLLOWUP SUBJECTIVE: The patient is without shortness of breath, without chest pain. OBJECTIVE: VITAL SIGNS: Blood pressure 160/80, heart rate in the 60s. NECK: Negative JVD. LUNGS: Decreased breath sounds. HEART: Reveal S1, S2. EXTREMITIES: Without change. LABORATORY DATA: Hemoglobin is 8. Chemistries, potassium is 3.7. IMPRESSION: 1. Pulmonary infection. 2. No evidence of valvular vegetations. 3. Renal insufficiency. 4. Diabetes mellitus. Given these findings, the patient's cardiac status is stable. Yousif Fisher MD
[2017-05-22] MEDS: Cefepime 1gm in NS 100ml 1 GM/100 ML BAG IVPB SCH (13:45)
--- NOTE | 2017-05-22 16:15 | CP.PCM.PN ---
Subjective - Date & Time of Evaluation Date of Evaluation: 05/22/17 Time of Evaluation: 12:30 - Subjective Subjective: Comfortable, afebrile. Objective - Vital Signs/Intake and Output Vital Signs (last 24 hours): Temp Pulse Resp BP Pulse Ox 97.9 F 68 20 160/80 H 98 05/22/17 08:00 05/22/17 08:00 05/22/17 08:00 05/22/17 09:00 05/22/17 08:00 Intake and Output: 05/22/17 05/22/17 06:59 18:59 Intake Total 1020 480 Output Total 1375 Balance -355 480 - Medications Medications: Current Medications Acetaminophen (Tylenol 325mg Tab) 650 mg PO Q4H PRN PRN Reason: Fever >100.4 F Last Admin: 05/19/17 22:32 Dose: 650 mg Albuterol/Ipratropium (Duoneb 3 Mg/0.5 Mg (3 Ml) Ud) 3 ml IH [id number] [facility] Last Admin: 05/22/17 09:30 Dose: Not Given Amlodipine Besylate (Norvasc) 10 mg PO DAILY [facility] Last Admin: 05/22/17 11:12 Dose: Not Given Aspirin (Ecotrin) 81 mg PO DAILY [facility] Last Admin: 05/22/17 11:11 Dose: Not Given Atorvastatin Calcium (Lipitor) 40 mg PO DIN [facility] Last Admin: 05/21/17 17:21 Dose: 40 mg Docusate Sodium (Colace) 100 mg PO BID [facility] Last Admin: 05/22/17 11:10 Dose: Not Given Doxercalciferol (Hectorol) 1 mcg IV MWF [facility] Last Admin: 05/19/17 19:03 Dose: Not Given Folic Acid (Folic Acid) 1 mg PO DAILY [facility] Last Admin: 05/22/17 11:11 Dose: Not Given Heparin Sodium (Porcine) (Heparin) 5,000 units SC Q12 [facility] PRN Reason: Protocol Last Admin: 05/22/17 11:11 Dose: Not Given Cefepime HCl (Maxipime 1gm) 1 gm in 100 mls @ 100 mls/hr IVPB Q24H [facility] PRN Reason: Protocol Last Admin: 05/22/17 13:45 Dose: Not Given Insulin Detemir (Levemir) 20 unit SC HS [facility] Last Admin: 05/21/17 21:31 Dose: 20 unit Insulin Human Lispro (Humalog Low) 0 units SC ACHS [facility] PRN Reason: Protocol Last Admin: 05/22/17 13:05 Dose: Not Given Isosorbide Mononitrate (Imdur) 60 mg PO DAILY [facility] Last Admin: 05/22/17 11:11 Dose: Not Given Losartan Potassium (Cozaar) 100 mg PO DAILY [facility] Last Admin: 05/22/17 11:11 Dose: Not Given Metoclopramide HCl (Reglan) 5 mg IVP ACHS [facility] Last Admin: 05/22/17 13:45 Dose: Not Given Metoprolol Tartrate (Lopressor) 50 mg PO BID [facility] Last Admin: 05/22/17 11:12 Dose: Not Given Ondansetron HCl (Zofran Inj) 4 mg IVP Q4H PRN PRN Reason: Nausea/Vomiting Pantoprazole Sodium (Protonix Ec Tab) 40 mg PO ACB [facility] Last Admin: 05/22/17 08:42 Dose: 40 mg Polyethylene Glycol (Miralax) 17 gm PO DAILY [facility] Last Admin: 05/22/17 11:12 Dose: Not Given Pregabalin (Lyrica) 75 mg PO BID [facility] Last Admin: 05/22/17 11:12 Dose: Not Given Tamsulosin HCl (Flomax) 0.4 mg PO DAILY [facility] Last Admin: 05/22/17 11:11 Dose: Not Given Thiamine HCl (Vitamin B1 Tab) 100 mg PO DAILY [facility] Last Admin: 05/22/17 11:12 Dose: Not Given Vitamin B Complex/Vit C/Folic Acid (Nephro-Eleni) 1 tab PO 0800 [facility] Last Admin: 05/22/17 11:12 Dose: Not Given Zolpidem Tartrate (Ambien) 5 mg PO HS PRN; Protocol PRN Reason: Insomnia Last Admin: 05/21/17 21:30 Dose: 5 mg - Labs Labs: 05/22/17 11:31 05/22/17 07:20 PT 13.4 Seconds (9.9-11.8) H 05/11/17 16:00 INR 1.24 (0.93-1.08) H 05/11/17 16:00 APTT 33.2 Seconds (23.7-30.8) H 05/11/17 16:00 - Constitutional Appears: Non-toxic, No Acute Distress - Head Exam Head Exam: NORMAL INSPECTION - ENT Exam ENT Exam: Mucous Membranes Moist - Neck Exam Neck Exam: absent: Meningismus - Respiratory Exam Respiratory Exam: Decreased Breath Sounds - Cardiovascular Exam Cardiovascular Exam: +S1, +S2 - GI/Abdominal Exam GI & Abdominal Exam: Soft. absent: Tenderness Assessment and Plan - Assessment and Plan (Free Text) Plan: Assessment sepsis due to persistent Pseudomonas bacteremia, with lung cavitary lesions, with septic emboli (also growing Pseudomonas), probably Permacath infection with no evidence of endocarditis on ESTER ( but still suspicious for tricuspid valve endocarditis); no evidence of intra-abdominal infection on CT scan of the abdomen and pelvis; S/P removal of Permacath and replacement with temporary dialysis catheter POD #4 history of sepsis due to Klebsiella bacteremia likely HD catheter infection S/P removal of tunneled Catheter history of C. diff. associated diarrhea DM HTN ESRD on HD CAD S/P CABG history of CVA history of rhabdomyolysis Plan continue Cefepime; repeat blood cx are negative would recommend 4-6 weeks of antibiotics and treat this as an endovascular infection with weekly ESR, CRP, CBC, CMP will continue to monitor clinically
--- NOTE | 2017-05-22 17:01 | CP.PCM.PN ---
<Nancy Clemens - Last Filed: 05/22/17 17:19> Subjective - Date & Time of Evaluation Date of Evaluation: 05/22/17 Time of Evaluation: 07:45 - Subjective Subjective: Hospitalist Service Progress Note: Patient seen and examined at bedside. Per nursing no acute events overnight. Patient is doing well, offers no complaints at this time. Will go for dialysis today. Ambulating and tolerating diet. Martinez in. Denies headaches, dizziness, cp , palpitations, sob, abd pain, changes in bowel habits. Objective - Vital Signs/Intake and Output Vital Signs (last 24 hours): Temp Pulse Resp BP Pulse Ox 97.9 F 68 20 160/80 H 98 05/22/17 08:00 05/22/17 08:00 05/22/17 08:00 05/22/17 09:00 05/22/17 08:00 Intake and Output: 05/22/17 05/22/17 06:59 18:59 Intake Total 1020 480 Output Total 1375 Balance -355 480 - Medications Medications: Current Medications Acetaminophen (Tylenol 325mg Tab) 650 mg PO Q4H PRN PRN Reason: Fever >100.4 F Last Admin: 05/19/17 22:32 Dose: 650 mg Albuterol/Ipratropium (Duoneb 3 Mg/0.5 Mg (3 Ml) Ud) 3 ml IH [id number] [facility] Last Admin: 05/22/17 16:20 Dose: Not Given Amlodipine Besylate (Norvasc) 10 mg PO DAILY [facility] Last Admin: 05/22/17 11:12 Dose: Not Given Aspirin (Ecotrin) 81 mg PO DAILY [facility] Last Admin: 05/22/17 11:11 Dose: Not Given Atorvastatin Calcium (Lipitor) 40 mg PO DIN [facility] Last Admin: 05/21/17 17:21 Dose: 40 mg Docusate Sodium (Colace) 100 mg PO BID [facility] Last Admin: 05/22/17 11:10 Dose: Not Given Doxercalciferol (Hectorol) 1 mcg IV MWF [facility] Last Admin: 05/19/17 19:03 Dose: Not Given Folic Acid (Folic Acid) 1 mg PO DAILY [facility] Last Admin: 05/22/17 11:11 Dose: Not Given Heparin Sodium (Porcine) (Heparin) 5,000 units SC Q12 [facility] PRN Reason: Protocol Last Admin: 05/22/17 11:11 Dose: Not Given Cefepime HCl (Maxipime 1gm) 1 gm in 100 mls @ 100 mls/hr IVPB Q24H [facility] PRN Reason: Protocol Last Admin: 05/22/17 13:45 Dose: Not Given Insulin Detemir (Levemir) 20 unit SC HS [facility] Last Admin: 05/21/17 21:31 Dose: 20 unit Insulin Human Lispro (Humalog Low) 0 units SC ACHS [facility] PRN Reason: Protocol Last Admin: 05/22/17 13:05 Dose: Not Given Isosorbide Mononitrate (Imdur) 60 mg PO DAILY [facility] Last Admin: 05/22/17 11:11 Dose: Not Given Losartan Potassium (Cozaar) 100 mg PO DAILY [facility] Last Admin: 05/22/17 11:11 Dose: Not Given Metoclopramide HCl (Reglan) 5 mg IVP ACHS [facility] Last Admin: 05/22/17 13:45 Dose: Not Given Metoprolol Tartrate (Lopressor) 50 mg PO BID [facility] Last Admin: 05/22/17 11:12 Dose: Not Given Ondansetron HCl (Zofran Inj) 4 mg IVP Q4H PRN PRN Reason: Nausea/Vomiting Pantoprazole Sodium (Protonix Ec Tab) 40 mg PO ACB [facility] Last Admin: 05/22/17 08:42 Dose: 40 mg Polyethylene Glycol (Miralax) 17 gm PO DAILY [facility] Last Admin: 05/22/17 11:12 Dose: Not Given Pregabalin (Lyrica) 75 mg PO BID [facility] Last Admin: 05/22/17 11:12 Dose: Not Given Tamsulosin HCl (Flomax) 0.4 mg PO DAILY [facility] Last Admin: 05/22/17 11:11 Dose: Not Given Thiamine HCl (Vitamin B1 Tab) 100 mg PO DAILY [facility] Last Admin: 05/22/17 11:12 Dose: Not Given Vitamin B Complex/Vit C/Folic Acid (Nephro-Eleni) 1 tab PO 0800 [facility] Last Admin: 05/22/17 11:12 Dose: Not Given Zolpidem Tartrate (Ambien) 5 mg PO HS PRN; Protocol PRN Reason: Insomnia Last Admin: 05/21/17 21:30 Dose: 5 mg - Labs Labs: 05/22/17 11:31 05/22/17 07:20 PT 13.4 Seconds (9.9-11.8) H 05/11/17 16:00 INR 1.24 (0.93-1.08) H 05/11/17 16:00 APTT 33.2 Seconds (23.7-30.8) H 05/11/17 16:00 - Constitutional Appears: Non-toxic, No Acute Distress - Head Exam Head Exam: ATRAUMATIC, NORMAL INSPECTION - Eye Exam Eye Exam: EOMI, Normal appearance Pupil Exam: PERRL - ENT Exam ENT Exam: Mucous Membranes Moist - Neck Exam Neck Exam: Full ROM Additional comments: L IJ temporary dialysis catheter in place - Respiratory Exam Respiratory Exam: Clear to Ausculation Bilateral, Rales, NORMAL BREATHING PATTERN. absent: Rhonchi, Wheezes - Cardiovascular Exam Cardiovascular Exam: REGULAR RHYTHM, +S1, +S2 - GI/Abdominal Exam GI & Abdominal Exam: Soft, Normal Bowel Sounds. absent: Rigid, Tenderness - Exam Additional comments: Martinez in draining clear yellow urine - Extremities Exam Extremities Exam: Full ROM. absent: Calf Tenderness - Back Exam Back Exam: NORMAL INSPECTION - Neurological Exam Neurological Exam: Alert, Awake, Oriented x3 - Psychiatric Exam Psychiatric exam: Normal Affect, Normal Mood - Skin Skin Exam: Normal Color, Warm Assessment and Plan - Assessment and Plan (Free Text) Assessment: Patient is a 56 year old male with a past medical history of ESRD on HD, CABG, HTN, AK(s), DM, peripheral neuropathy, and history of GI bleed who was admitted for generalized weakness and fever. Patient was found to have multiple lesions in the lungs, likely secondary to septic emboli from perma-cath. Blood cultures x 2 and Left Upper Lobe biopsy of suspicious lesion all grew Pseudomonas Aeruginosa, susceptible to Cefepime. ESTER and CT of A/P were negative for vegetation or infection. Patient's tunneled dialysis catheter was removed on 05/18/17 and now has a temporary left internal jugular hemodialysis catheter. Plan: 1. Bacteremia with septic emboli in lung 2/2 infected permacath -Permacath removed, L IJ temporary HD catheter in place -Permacath tip cx - pseudomonas -Transesophageal Echocardiogram was negative for any vegetations -Repeat blood cultures from 05/18 were negative x 24 hours. -Continue Cefepime Day 5 (Per ID, patient will need 4-6 weeks of IV abx) -ID on consult, f/u recommendations 2. ESRD on HD (MWF) -Went for dialysis today -L IJ HD catheter in place -Will need permanent access -Nephrology on consult, f/u recommendations 3. Hx of HTN -Continue Losartan 100mg -Metoprolol 50mg BID -Amlodipine 10mg daily 4. CAD -Continue Isosorbide mononitrate -Continue Lipitor 5. DM II with gastroparesis -Levemir 12 units HS -ISS: Insulin Lispro- low dose ACHS -Reglan 5 mg IVP ACHS -Pregabalin 75 mg BID for peripheral neuropathy 6. Urinary retention -Patient failed voiding trial -Tamsulosin 0.4 mg PO daily -Recommend outpatient urology follow up 7. GI/DVT prophylaxis - Pantoprazole 40 mg - Heparin 5,000 units SC q12h <Maryt Muir - Last Filed: 05/22/17 18:16> Objective - Vital Signs/Intake and Output Vital Signs (last 24 hours): Temp Pulse Resp BP Pulse Ox 97.9 F 68 20 160/80 H 98 05/22/17 08:00 05/22/17 08:00 05/22/17 08:00 05/22/17 09:00 05/22/17 08:00 Intake and Output: 05/22/17 05/22/17 06:59 18:59 Intake Total 1020 480 Output Total 1375 Balance -355 480 - Medications Medications: Current Medications Acetaminophen (Tylenol 325mg Tab) 650 mg PO Q4H PRN PRN Reason: Fever >100.4 F Last Admin: 05/19/17 22:32 Dose: 650 mg Albuterol/Ipratropium (Duoneb 3 Mg/0.5 Mg (3 Ml) Ud) 3 ml IH [id number] [facility] Last Admin: 05/22/17 16:20 Dose: Not Given Amlodipine Besylate (Norvasc) 10 mg PO DAILY [facility] Last Admin: 05/22/17 11:12 Dose: Not Given Aspirin (Ecotrin) 81 mg PO DAILY [facility] Last Admin: 05/22/17 11:11 Dose: Not Given Atorvastatin Calcium (Lipitor) 40 mg PO DIN [facility] Last Admin: 05/22/17 17:09 Dose: 40 mg Docusate Sodium (Colace) 100 mg PO BID [facility] Last Admin: 05/22/17 11:10 Dose: Not Given Doxercalciferol (Hectorol) 1 mcg IV MWF [facility] Last Admin: 05/19/17 19:03 Dose: Not Given Folic Acid (Folic Acid) 1 mg PO DAILY [facility] Last Admin: 05/22/17 11:11 Dose: Not Given Heparin Sodium (Porcine) (Heparin) 5,000 units SC Q12 [facility] PRN Reason: Protocol Last Admin: 05/22/17 11:11 Dose: Not Given Cefepime HCl (Maxipime 1gm) 1 gm in 100 mls @ 100 mls/hr IVPB Q24H [facility] PRN Reason: Protocol Last Admin: 05/22/17 13:45 Dose: Not Given Insulin Detemir (Levemir) 20 unit SC HS [facility] Last Admin: 05/21/17 21:31 Dose: 20 unit Insulin Human Lispro (Humalog Low) 0 units SC ACHS [facility] PRN Reason: Protocol Last Admin: 05/22/17 17:11 Dose: 1 units Isosorbide Mononitrate (Imdur) 60 mg PO DAILY [facility] Last Admin: 05/22/17 11:11 Dose: Not Given Losartan Potassium (Cozaar) 100 mg PO DAILY [facility] Last Admin: 05/22/17 11:11 Dose: Not Given Metoclopramide HCl (Reglan) 5 mg IVP ACHS [facility] Last Admin: 05/22/17 17:05 Dose: Not Given Metoprolol Tartrate (Lopressor) 50 mg PO BID [facility] Last Admin: 05/22/17 11:12 Dose: Not Given Ondansetron HCl (Zofran Inj) 4 mg IVP Q4H PRN PRN Reason: Nausea/Vomiting Pantoprazole Sodium (Protonix Ec Tab) 40 mg PO ACB [facility] Last Admin: 05/22/17 08:42 Dose: 40 mg Polyethylene Glycol (Miralax) 17 gm PO DAILY [facility] Last Admin: 05/22/17 11:12 Dose: Not Given Pregabalin (Lyrica) 75 mg PO BID [facility] Last Admin: 05/22/17 11:12 Dose: Not Given Tamsulosin HCl (Flomax) 0.4 mg PO DAILY [facility] Last Admin: 05/22/17 11:11 Dose: Not Given Thiamine HCl (Vitamin B1 Tab) 100 mg PO DAILY [facility] Last Admin: 05/22/17 11:12 Dose: Not Given Vitamin B Complex/Vit C/Folic Acid (Nephro-Eleni) 1 tab PO 0800 [facility] Last Admin: 05/22/17 11:12 Dose: Not Given Zolpidem Tartrate (Ambien) 5 mg PO HS PRN; Protocol PRN Reason: Insomnia Last Admin: 05/21/17 21:30 Dose: 5 mg - Labs Labs: 05/22/17 11:31 05/22/17 07:20 PT 13.4 Seconds (9.9-11.8) H 05/11/17 16:00 INR 1.24 (0.93-1.08) H 05/11/17 16:00 APTT 33.2 Seconds (23.7-30.8) H 05/11/17 16:00 Attending/Attestation - Attestation I have personally seen and examined this patient.: Yes I have fully participated in the care of the patient.: Yes I have reviewed all pertinent clinical information, including history, physical exam and plan: Yes Notes (Text): I have seen and examined the patient at bedside. Agree with the above note with the following addition/ exceptions: Briefly this is 56 year old male with a history of ESRD on HD, CAD, CABG, HTN, AK, DM-2, peripheral neuropathy, history of falls, history of CVA, and GI bleed who is being admitted for evaluation of generalized weakness and fever due to HCAP vs UTI. He was found to have Pseudomonas bacteremia/septic emboli in the lung. Lung biopsy showed Pseudomonas infection. ESTER showed no vegetations however MV leaflets appears thickened. Patient had tunneled dialysis catheter which was removed. Currently has left IJ temporary hemodialysis catheter. The patient got dialyzed today. Continue IV cefepime. Continue reglan, colace and miralax. Patient has indwelling martinez catheter as he failed voiding trial. Continue flomax and needs urology follow up as an outpatient. Patient needs 4-6 weeks of IV antibiotics. Will discuss with manager rn case regarding discharge planning. Patient is DNR/ DNI. Upon discharge the patient will follow-up with PMD . Dr Marty Muir
[2017-05-22] MEDS: Insulin Detemir 100 units/ml Vial (Levemir) SC SCH (21:28)
[2017-05-23] MEDS: Albuterol-Ipratrop 3 mg / 0.5 (3 ml) UD IH SCH ×3 (02:49→13:33)
[2017-05-23 07:47] LABS: BASO # 0.06 K/mm3 (0.0-2.0); BASO % 0.8 % (0.0-3.0); EOS # 0.2 (0.0-0.7); GRAN # 4.87 (1.4-6.5); GRAN % 65.4 % (50.0-68.0); HEMATOCRIT 28.5 % (42.0-52.0); LYMPH # 1.9 (1.2-3.4); MEAN CELL VOLUME 85.6 fl (80.0-105.0); MEAN CORPUSCULAR HEMOGLOBIN 26.7 pg (25.0-35.0); MEAN CORPUSCULAR HGB CONC 31.2 g/dl (31.0-37.0); MEAN PLATELET VOLUME 10.6 fl (7.0-11.0); MONO # 0.5 (0.1-0.6); MONO % 6.8 % (1.0-6.0); RED CELL DISTRIBUTION WIDTH 17.8 % (11.5-14.5); WHITE BLOOD COUNT 7.5 10^3/ul (4.5-11.0)
[2017-05-23 07:59] LABS: ALB/GLOB RATIO 0.9 (1.1-1.8); BILIRUBIN,TOTAL 0.4 mg/dL (0.2-1.3); CALCIUM 8.7 mg/dL (8.4-10.5); MAGNESIUM 1.7 mg/dL (1.7-2.2); TOTAL PROTEIN 6.5 g/dL (5.8-8.3)
[2017-05-23 08:20] VITALS: BP 147/60; PULSE 67; TEMP 98.6; O2SAT 100
[2017-05-23] MEDS: Pantoprazole 40 mg EC Tab PO SCH (08:22)
[2017-05-23] MEDS: Insulin Lispro (humaLOG) LOW Coverage SC SCH ×2 (08:25→12:06)
--- NOTE | 2017-05-23 08:39 | PN ---
DATE: 05/22/2017 CHIEF COMPLAINT: "I am going home tomorrow." HISTORY OF PRESENT ILLNESS: The patient was seen during dialysis. He denied any new complaints at this time. He says he has to go home tomorrow. He has to take care of things. He cannot stay in the hospital anymore. He then had shortness of breath, chest pain, palpitations. PHYSICAL EXAMINATION: GENERAL: The patient appeared comfortable, not in acute distress during dialysis. VITAL SIGNS: Afebrile. Pulse 68, blood pressure 160/80. LUNGS: Bilateral vesicular sounds clear. Bilateral normal air entry and symmetrical. CARDIOVASCULAR: S1 is normal. No murmur or rub. ABDOMEN: Soft and nontender. No organomegaly. EXTREMITIES: No edema. VASCULAR: The patient had left-sided Shiley, temporary access. LYMPHATICS: No lymphadenopathy in neck. HEMATOLOGIC: No acute bleeding could be appreciated. WORKUP: White blood cell count is 7.7, hemoglobin 8.5, and platelet count 311. Sodium is 136, potassium 3.7, creatinine 4.6, BUN is 33, glucose 162. Repeat blood culture have been negative so far after 4 days. CURRENT MEDICATIONS: Were reviewed. ASSESSMENT: 1. Septic emboli with Pseudomonas with Perm-A-Cath infection. 2. End-stage renal disease, on hemodialysis. 3. Diabetes mellitus and hypertension with diabetic and hypertensive chronic kidney disease. 4. Congestive heart failure. 5. Coronary artery disease, status post coronary artery bypass graft. 6. Gastroparesis. 7. Esophageal ulcer. 8. Urinary retention. RECOMMENDATIONS: The patient underwent dialysis today as ordered. He gets weekly Aranesp. Also gets Hectorol during dialysis. Plan for placement of Perm-A-Cath once blood culture is negative, and okay from ID perspective. The patient also will need 4 to 6 weeks of IV antibiotics as well b.i.d. Again, counseled and encouraged the patient to continue to stay in the hospital for his appropriate care, and the patient is adamant that he has to leave hospital tomorrow. Dialysis nurse also tried to explain to him the need to stay in the hospital. scaffold worker will also be involved. Psychiatric has been involved in his care. All questions were answered. The patient was again advised to stay in the hospital and recommended not to leave the hospital until all goals of care are met including negative blood culture, placement of Perm-A-Cath, and arrangement of outpatient IV antibiotics. Sancho Garrett MD
[2017-05-23] MEDS: Multivitamin Vitamin B Complex (Nephro-Vite) Tab PO SCH (08:53)
--- NOTE | 2017-05-23 10:05 | PN ---
SUBJECTIVE: The patient was followed up today. The patient presented to be alert and oriented. The patient denied feeling depressed. The patient denied thought of harming himself or others. The patient wants to go home. The patient denied hearing voices or seeing things. From the medical standpoint, the patient was doing much better. The patient was participating in dialysis. The patient is selective in regard of taking his medications, but majority of the time, the patient is compliant with the medications. The patient has future-oriented plans. LABORATORY DATA: Reviewed. PHYSICAL EXAMINATION: VITAL SIGNS: Reviewed, seems to be stable. MENTAL STATUS EXAMINATION: As this marine underwriter described above. The patient is alert, oriented, cooperative, intermittent eye contact. Speech was normal rate, tone, quality and quantity. Mood described "I am not feeling depressed." Affect was constricted. Mood congruent. Thought process, coherent and goal directed. Thought content, the patient denied visual, auditory or tactile hallucinations. Denied paranoid ideations. The patient denied thoughts of harming himself or others. Denied intent or plan. Insight and judgement is improving. Impulses are well controlled. IMPRESSION: Most likely, the patient was in delirium stage that is why I have gave him a lot of confusion and irrational decisions, but right now, the patient is participating in treatment plan and presents much better. Rule out adjustment disorder, rule out mood disorder due to general medication condition. PLAN: The patient does not want to be seen by psychiatrist in the community. The patient participated in treatment plan and compliant with the medication and hemodialysis. This marine underwriter has impression that the patient is not in any eminent danger to self or others. This marine underwriter will sign off. Should they have any questions, give me a call back. Flora Henry MD
[2017-05-23] MEDS: POLYETHYLENE GLYCOL 3350 17 GM/Dose PACKET PO SCH (10:55)
--- NOTE | 2017-05-23 12:16 | CP.PCM.PN ---
Subjective - Date & Time of Evaluation Date of Evaluation: 05/23/17 Time of Evaluation: 11:25 - Subjective Subjective: Comfortable, afebrile, wants to go home. Objective - Vital Signs/Intake and Output Vital Signs (last 24 hours): Temp Pulse Resp BP Pulse Ox 98.6 F 67 20 147/60 100 05/23/17 08:20 05/23/17 08:20 05/23/17 08:20 05/23/17 08:20 05/23/17 08:20 Intake and Output: 05/23/17 05/23/17 06:59 18:59 Intake Total 1080 Output Total 200 Balance 880 - Medications Medications: Current Medications Acetaminophen (Tylenol 325mg Tab) 650 mg PO Q4H PRN PRN Reason: Fever >100.4 F Last Admin: 05/19/17 22:32 Dose: 650 mg Albuterol/Ipratropium (Duoneb 3 Mg/0.5 Mg (3 Ml) Ud) 3 ml IH [id number] [facility] Last Admin: 05/23/17 07:21 Dose: Not Given Amlodipine Besylate (Norvasc) 10 mg PO DAILY [facility] Last Admin: 05/22/17 11:12 Dose: Not Given Aspirin (Ecotrin) 81 mg PO DAILY [facility] Last Admin: 05/22/17 11:11 Dose: Not Given Atorvastatin Calcium (Lipitor) 40 mg PO DIN [facility] Last Admin: 05/22/17 17:09 Dose: 40 mg Docusate Sodium (Colace) 100 mg PO BID [facility] Last Admin: 05/22/17 18:17 Dose: Not Given Doxercalciferol (Hectorol) 1 mcg IV MWF [facility] Last Admin: 05/19/17 19:03 Dose: Not Given Folic Acid (Folic Acid) 1 mg PO DAILY [facility] Last Admin: 05/22/17 11:11 Dose: Not Given Heparin Sodium (Porcine) (Heparin) 5,000 units SC Q12 [facility] PRN Reason: Protocol Last Admin: 05/22/17 21:29 Dose: 5,000 units Cefepime HCl (Maxipime 1gm) 1 gm in 100 mls @ 100 mls/hr IVPB Q24H [facility] PRN Reason: Protocol Last Admin: 05/22/17 13:45 Dose: Not Given Insulin Detemir (Levemir) 20 unit SC HS [facility] Last Admin: 05/22/17 21:28 Dose: 20 unit Insulin Human Lispro (Humalog Low) 0 units SC ACHS [facility] PRN Reason: Protocol Last Admin: 05/23/17 08:25 Dose: 1 units Isosorbide Mononitrate (Imdur) 60 mg PO DAILY [facility] Last Admin: 05/22/17 11:11 Dose: Not Given Losartan Potassium (Cozaar) 100 mg PO DAILY [facility] Last Admin: 05/22/17 11:11 Dose: Not Given Metoclopramide HCl (Reglan) 5 mg IVP ACHS [facility] Last Admin: 05/23/17 08:26 Dose: 5 mg Metoprolol Tartrate (Lopressor) 50 mg PO BID [facility] Last Admin: 05/22/17 18:36 Dose: 50 mg Ondansetron HCl (Zofran Inj) 4 mg IVP Q4H PRN PRN Reason: Nausea/Vomiting Pantoprazole Sodium (Protonix Ec Tab) 40 mg PO ACB [facility] Last Admin: 05/23/17 08:22 Dose: 40 mg Polyethylene Glycol (Miralax) 17 gm PO DAILY [facility] Last Admin: 05/22/17 11:12 Dose: Not Given Pregabalin (Lyrica) 75 mg PO BID [facility] Last Admin: 05/22/17 18:29 Dose: 75 mg Tamsulosin HCl (Flomax) 0.4 mg PO DAILY [facility] Last Admin: 05/22/17 11:11 Dose: Not Given Thiamine HCl (Vitamin B1 Tab) 100 mg PO DAILY [facility] Last Admin: 05/22/17 11:12 Dose: Not Given Vitamin B Complex/Vit C/Folic Acid (Nephro-Eleni) 1 tab PO 0800 [facility] Last Admin: 05/23/17 08:53 Dose: 1 tab Zolpidem Tartrate (Ambien) 5 mg PO HS PRN; Protocol PRN Reason: Insomnia Last Admin: 05/22/17 21:29 Dose: 5 mg - Labs Labs: 05/23/17 07:41 05/23/17 07:41 PT 13.4 Seconds (9.9-11.8) H 05/11/17 16:00 INR 1.24 (0.93-1.08) H 05/11/17 16:00 APTT 33.2 Seconds (23.7-30.8) H 05/11/17 16:00 - Constitutional Appears: Non-toxic, No Acute Distress - Head Exam Head Exam: NORMAL INSPECTION - ENT Exam ENT Exam: Mucous Membranes Moist - Neck Exam Neck Exam: absent: Meningismus - Respiratory Exam Respiratory Exam: Decreased Breath Sounds - Cardiovascular Exam Cardiovascular Exam: +S1, +S2 - GI/Abdominal Exam GI & Abdominal Exam: Soft. absent: Tenderness Assessment and Plan - Assessment and Plan (Free Text) Plan: Assessment sepsis due to persistent Pseudomonas bacteremia, with lung cavitary lesions, with septic emboli (also growing Pseudomonas), probably Permacath infection with no evidence of endocarditis on ESTER ( but still suspicious for tricuspid valve endocarditis); no evidence of intra-abdominal infection on CT scan of the abdomen and pelvis; S/P removal of Permacath and replacement with temporary dialysis catheter POD #5 - will still treat as an endovascular infection history of sepsis due to Klebsiella bacteremia likely HD catheter infection S/P removal of tunneled Catheter history of C. diff. associated diarrhea DM HTN ESRD on HD CAD S/P CABG history of CVA history of rhabdomyolysis Plan continue Cefepime; repeat blood cx are negative would recommend 4-6 weeks of antibiotics and treat this as an endovascular infection with weekly ESR, CRP, CBC, CMP; would defer putting in Permacath for now will continue to monitor clinically discussed with Dr. Marty Muir
--- NOTE | 2017-05-23 12:28 | CP.PCM.PN ---
<Nancy Clemens - Last Filed: 05/23/17 12:32> Subjective - Date & Time of Evaluation Date of Evaluation: 05/23/17 Time of Evaluation: 07:05 - Subjective Subjective: Hospitalist Service Progress Note: Patient seen and examined at bedside. Per nursing no acute events overnight. Patient is doing well, wants to go home. Discussed at length with patient importance of continuing current therapy. Patient ammendable to staying. No complaints. Denies fevers, chills, nausea, vomiting, cp, palpitations, sob, urinary symptom, changes in bowel habits. Objective - Vital Signs/Intake and Output Vital Signs (last 24 hours): Temp Pulse Resp BP Pulse Ox 98.6 F 67 20 147/60 100 05/23/17 08:20 05/23/17 10:49 05/23/17 08:20 05/23/17 10:49 05/23/17 08:20 Intake and Output: 05/23/17 05/23/17 06:59 18:59 Intake Total 1080 Output Total 200 Balance 880 - Medications Medications: Current Medications Acetaminophen (Tylenol 325mg Tab) 650 mg PO Q4H PRN PRN Reason: Fever >100.4 F Last Admin: 05/19/17 22:32 Dose: 650 mg Albuterol/Ipratropium (Duoneb 3 Mg/0.5 Mg (3 Ml) Ud) 3 ml IH [id number] [facility] Last Admin: 05/23/17 07:21 Dose: Not Given Amlodipine Besylate (Norvasc) 10 mg PO DAILY [facility] Last Admin: 05/23/17 10:46 Dose: 10 mg Aspirin (Ecotrin) 81 mg PO DAILY [facility] Last Admin: 05/23/17 10:52 Dose: 81 mg Atorvastatin Calcium (Lipitor) 40 mg PO DIN [facility] Last Admin: 05/22/17 17:09 Dose: 40 mg Docusate Sodium (Colace) 100 mg PO BID [facility] Last Admin: 05/23/17 10:50 Dose: 100 mg Doxercalciferol (Hectorol) 1 mcg IV MWF [facility] Last Admin: 05/19/17 19:03 Dose: Not Given Folic Acid (Folic Acid) 1 mg PO DAILY [facility] Last Admin: 05/23/17 10:51 Dose: 1 mg Heparin Sodium (Porcine) (Heparin) 5,000 units SC Q12 [facility] PRN Reason: Protocol Last Admin: 05/23/17 11:00 Dose: 5,000 units Cefepime HCl (Maxipime 1gm) 1 gm in 100 mls @ 100 mls/hr IVPB Q24H [facility] PRN Reason: Protocol Last Admin: 05/22/17 13:45 Dose: Not Given Insulin Detemir (Levemir) 20 unit SC HS [facility] Last Admin: 05/22/17 21:28 Dose: 20 unit Insulin Human Lispro (Humalog Low) 0 units SC ACHS [facility] PRN Reason: Protocol Last Admin: 05/23/17 12:06 Dose: 3 units Isosorbide Mononitrate (Imdur) 60 mg PO DAILY [facility] Last Admin: 05/23/17 10:52 Dose: 60 mg Losartan Potassium (Cozaar) 100 mg PO DAILY [facility] Last Admin: 05/23/17 10:48 Dose: 100 mg Metoclopramide HCl (Reglan) 5 mg IVP ACHS [facility] Last Admin: 05/23/17 12:08 Dose: 5 mg Metoprolol Tartrate (Lopressor) 50 mg PO BID [facility] Last Admin: 05/23/17 10:49 Dose: 50 mg Ondansetron HCl (Zofran Inj) 4 mg IVP Q4H PRN PRN Reason: Nausea/Vomiting Pantoprazole Sodium (Protonix Ec Tab) 40 mg PO ACB [facility] Last Admin: 05/23/17 08:22 Dose: 40 mg Polyethylene Glycol (Miralax) 17 gm PO DAILY [facility] Last Admin: 05/23/17 10:55 Dose: Not Given Pregabalin (Lyrica) 75 mg PO BID [facility] Last Admin: 05/23/17 10:48 Dose: 75 mg Tamsulosin HCl (Flomax) 0.4 mg PO DAILY [facility] Last Admin: 05/23/17 10:51 Dose: 0.4 mg Thiamine HCl (Vitamin B1 Tab) 100 mg PO DAILY [facility] Last Admin: 05/23/17 10:52 Dose: 100 mg Vitamin B Complex/Vit C/Folic Acid (Nephro-Eleni) 1 tab PO 0800 [facility] Last Admin: 05/23/17 08:53 Dose: 1 tab Zolpidem Tartrate (Ambien) 5 mg PO HS PRN; Protocol PRN Reason: Insomnia Last Admin: 05/22/17 21:29 Dose: 5 mg - Labs Labs: 05/23/17 07:41 05/23/17 07:41 PT 13.4 Seconds (9.9-11.8) H 05/11/17 16:00 INR 1.24 (0.93-1.08) H 05/11/17 16:00 APTT 33.2 Seconds (23.7-30.8) H 05/11/17 16:00 - Constitutional Appears: Non-toxic, No Acute Distress - Head Exam Head Exam: ATRAUMATIC, NORMAL INSPECTION - Eye Exam Eye Exam: EOMI, Normal appearance - ENT Exam ENT Exam: Mucous Membranes Moist - Neck Exam Neck Exam: Full ROM Additional comments: L IJ temporary HD catheter in place Permacath removal site is slightly erythematous, no active draining, non-tender to touch - Respiratory Exam Respiratory Exam: Clear to Ausculation Bilateral, NORMAL BREATHING PATTERN. absent: Rales, Rhonchi, Wheezes - Cardiovascular Exam Cardiovascular Exam: REGULAR RHYTHM, +S1, +S2 - GI/Abdominal Exam GI & Abdominal Exam: Soft, Normal Bowel Sounds. absent: Guarding, Rigid, Tenderness - Exam Additional comments: Martinez in draining clear yellow urine - Extremities Exam Extremities Exam: Full ROM. absent: Calf Tenderness - Back Exam Back Exam: NORMAL INSPECTION - Neurological Exam Neurological Exam: Alert, Awake, Oriented x3 - Psychiatric Exam Psychiatric exam: Normal Affect - Skin Skin Exam: Dry, Normal Color, Warm Assessment and Plan - Assessment and Plan (Free Text) Assessment: Patient is a 56 year old male with a past medical history of ESRD on HD, CABG, HTN, AZ(s), DM, peripheral neuropathy, and history of GI bleed who was admitted for generalized weakness and fever. Patient was found to have multiple lesions in the lungs, likely secondary to septic emboli from perma-cath. Blood cultures x 2 and Left Upper Lobe biopsy of suspicious lesion all grew Pseudomonas Aeruginosa, susceptible to Cefepime. ESTER and CT of A/P were negative for vegetation or infection. Patient's tunneled dialysis catheter was removed on 05/18/17 and now has a temporary left internal jugular hemodialysis catheter. Plan: 1. Bacteremia with septic emboli in lung 2/2 infected permacath -Permacath removed, L IJ temporary HD catheter in place -Permacath tip cx - pseudomonas; lung bx also showing pseudomonas infection -Transesophageal Echocardiogram was negative for any vegetations, MV leaflets appears thickened -Repeat blood cultures from 05/18 were negative x 24 hours. -Continue Cefepime Day 6 (Per ID, patient will need 4-6 weeks of IV abx) -ID on consult, f/u recommendations 2. ESRD on HD (MWF) -Went for dialysis yesterday, tolerated session well -L IJ HD catheter in place -Will need permanent access -Nephrology on consult, f/u recommendations 3. Hx of HTN -Continue Losartan 100mg -Metoprolol 50mg BID -Amlodipine 10mg daily 4. CAD -Continue Isosorbide mononitrate -Continue Lipitor 5. DM II with gastroparesis -Levemir 12 units HS -ISS: Insulin Lispro- low dose ACHS -Reglan 5 mg IVP ACHS -Pregabalin 75 mg BID for peripheral neuropathy 6. Urinary retention -Patient failed voiding trial, martinez in -Tamsulosin 0.4 mg PO daily -Recommend outpatient urology follow up 7. GI/DVT prophylaxis - Pantoprazole 40 mg - Heparin 5,000 units SC q12h <Marty Muir - Last Filed: 05/25/17 13:53> Objective - Vital Signs/Intake and Output Vital Signs (last 24 hours): Temp Pulse Resp BP Pulse Ox 98.6 F 67 20 147/60 100 05/23/17 08:20 05/23/17 10:49 05/23/17 08:20 05/23/17 10:49 05/23/17 08:20 - Labs Labs: 05/23/17 07:41 05/23/17 07:41 PT 13.4 Seconds (9.9-11.8) H 05/11/17 16:00 INR 1.24 (0.93-1.08) H 05/11/17 16:00 APTT 33.2 Seconds (23.7-30.8) H 05/11/17 16:00 Attending/Attestation - Attestation I have personally seen and examined this patient.: Yes I have fully participated in the care of the patient.: Yes I have reviewed all pertinent clinical information, including history, physical exam and plan: Yes Notes (Text): I have seen and examined the patient at bedside. Agree with the above note with the following addition/ exceptions: Briefly this is 56 year old male with a history of ESRD on HD, CAD, CABG, HTN, AZ, DM-2, peripheral neuropathy, history of falls, history of CVA, and GI bleed who is being admitted for evaluation of generalized weakness and fever due to HCAP vs UTI. He was found to have Pseudomonas bacteremia/septic emboli in the lung. Lung biopsy showed Pseudomonas infection. ESTER showed no vegetations however MV leaflets appears thickened. Patient had tunneled dialysis catheter which was removed. Currently has left IJ temporary hemodialysis catheter. Continue IV cefepime. Continue reglan, colace and miralax. Patient has indwelling martinez catheter as he failed voiding trial. Continue flomax and needs urology follow up as an outpatient. Patient needs 4-6 weeks of IV antibiotics. Will discuss with spring encaser regarding discharge planning. Patient is DNR/ DNI. Upon discharge the patient will follow-up with PMD . Dr Marty Muir
--- NOTE | 2017-05-23 13:09 | PN ---
DATE: 05/23/2017 CARDIOLOGY FOLLOWUP SUBJECTIVE: The patient is depressed. in the hospital for so long, but is without shortness of breath, without chest pain. OBJECTIVE: VITAL SIGNS: Blood pressure 147/60 and heart rate in the 60s. NECK: Negative JVD. LUNGS: Without rales. HEART: S1 and S2. EXTREMITIES: Without edema. LABORATORY DATA: Hemoglobin is 8.9. Chemistries, BUN and creatinine is 20 and 3.7. IMPRESSION: 1. Pneumonia. 2. Renal insufficiency. 3. Diabetes mellitus. 4. Anemia. PLAN: Given these findings, the patient is stable cardiac-orelalna. We will sign off the case today. Yousif Fisher MD
--- NOTE | 2017-05-23 14:10 | CP.PCM.DIS ---
<Nancy Clemens - Last Filed: 05/23/17 17:15> Provider - Provider Date of Admission: 05/11/17 16:50 Attending physician: Marty Muir MD Primary care physician: Mercedez Parekh MD Time Spent in preparation of Discharge (in minutes): 30 Hospital Course - Lab Results Lab Results: Micro Results 05/18/17 14:00 Blood-Venous Blood Culture - Final NO GROWTH AFTER 5 DAYS 05/18/17 14:00 Blood-Venous Gram Stain - Final TEST NOT PERFORMED 05/18/17 13:30 Blood-Venous Blood Culture - Final NO GROWTH AFTER 5 DAYS 05/18/17 13:30 Blood-Venous Gram Stain - Final TEST NOT PERFORMED 05/19/17 14:20 Catheter Tip Catheter Tip Culture - Final Pseudomonas Aeruginosa 05/15/17 16:30 Blood Blood Culture - Final NO GROWTH AFTER 5 DAYS 05/15/17 16:30 Blood Gram Stain - Final TEST NOT PERFORMED 05/15/17 16:00 Blood Blood Culture - Final NO GROWTH AFTER 5 DAYS 05/15/17 16:00 Blood Gram Stain - Final TEST NOT PERFORMED 05/15/17 14:03 Blood-During Dialysis Blood Culture - Final NO GROWTH AFTER 5 DAYS 05/15/17 14:03 Blood-During Dialysis Gram Stain - Final TEST NOT PERFORMED 05/14/17 11:30 Blood Blood Culture - Final NO GROWTH AFTER 5 DAYS 05/14/17 11:30 Blood Gram Stain - Final TEST NOT PERFORMED 05/14/17 11:00 Blood Blood Culture - Final Pseudomonas Aeruginosa 05/14/17 11:00 Blood Gram Stain - Final 05/13/17 13:31 Blood-Venous Blood Culture - Final NO GROWTH AFTER 5 DAYS 05/13/17 13:31 Blood-Venous Gram Stain - Final TEST NOT PERFORMED 05/13/17 13:31 Blood-Venous Blood Culture - Final Pseudomonas Aeruginosa 05/13/17 13:31 Blood-Venous Gram Stain - Final 05/15/17 14:15 Blood-Venous Blood Culture - Final Pseudomonas Aeruginosa 05/15/17 14:15 Blood-Venous Gram Stain - Final 05/16/17 11:15 Other: Please Indicate Anaerobic Culture - Final NO ANAEROBES ISOLATED. 05/16/17 11:15 Other: Please Indicate Gram Stain - Final 05/16/17 11:15 Other: Please Indicate Body Fluid Culture - Final Pseudomonas Aeruginosa 05/16/17 11:15 Lung Slim Fungal Culture - Preliminary 05/16/17 11:15 Other: Please Indicate Mycobacterial Culture - Preliminary 05/15/17 16:00 Urine,Martinez Urine Culture - Final No Growth (<1,000 CFU/ML) 05/11/17 18:05 Urine Urine Culture - Final Vancomycin Res E.faecalis Most Recent Lab Values WBC 7.5 10^3/ul (4.5-11.0) 05/23/17 07:41 RBC 3.33 10^6/uL (3.5-6.1) L 05/23/17 07:41 Hgb 8.9 g/dL (14.0-18.0) L 05/23/17 07:41 Hct 28.5 % (42.0-52.0) L 05/23/17 07:41 MCV 85.6 fl (80.0-105.0) 05/23/17 07:41 MCH 26.7 pg (25.0-35.0) 05/23/17 07:41 MCHC 31.2 g/dl (31.0-37.0) 05/23/17 07:41 RDW 17.8 % (11.5-14.5) H 05/23/17 07:41 Plt Count 343 10^3/uL (120.0-450.0) 05/23/17 07:41 MPV 10.6 fl (7.0-11.0) 05/23/17 07:41 Gran % 65.4 % (50.0-68.0) 05/23/17 07:41 Lymph % (Auto) 25.0 % (22.0-35.0) 05/23/17 07:41 [place] % (Auto) 6.8 % (1.0-6.0) H 05/23/17 07:41 Eos % (Auto) 2.0 % (1.5-5.0) 05/23/17 07:41 Baso % (Auto) 0.8 % (0.0-3.0) 05/23/17 07:41 Gran # 4.87 (1.4-6.5) 05/23/17 07:41 Lymph # 1.9 (1.2-3.4) 05/23/17 07:41 [place] # 0.5 (0.1-0.6) 05/23/17 07:41 Eos # 0.2 (0.0-0.7) 05/23/17 07:41 Baso # 0.06 K/mm3 (0.0-2.0) 05/23/17 07:41 Neutrophils % (Manual) 86 % (50.0-70.0) H 05/12/17 17:04 Band Neutrophils % 6 % (0-2) H 05/12/17 17:04 Lymphocytes % (Manual) 7 % (22.0-35.0) L 05/12/17 17:04 Monocytes % (Manual) 1 % (1.0-6.0) 05/12/17 17:04 Platelet Evaluation Normal (NORMAL) 05/12/17 17:04 Large Platelets Present 05/12/17 17:04 Hypochromasia Slight 05/12/17 17:04 Poikilocytosis (manual Slight 05/12/17 17:04 Ovalocytes 2+ 05/12/17 17:04 Rouleaux 1+ 05/12/17 17:04 Schistocytes Slight 05/12/17 17:04 ESR 81 mm/hr (0.00-15.0) H 05/13/17 13:31 PT 13.4 Seconds (9.9-11.8) H 05/11/17 16:00 INR 1.24 (0.93-1.08) H 05/11/17 16:00 APTT 33.2 Seconds (23.7-30.8) H 05/11/17 16:00 pCO2 28 mm/Hg (35-45) L 05/11/17 23:15 pO2 61 mm/Hg (30-55) H 05/13/17 16:30 HCO3 22.3 mmol/L (21-28) 05/11/17 23:15 ABG pH 7.51 (7.35-7.45) H 05/11/17 23:15 ABG Total CO2 23.2 mmol.L (22-28) 05/11/17 23:15 ABG O2 Saturation 98.5 % (95-98) H 05/11/17 23:15 ABG O2 Content 14.4 ML/dl (15-23) L 05/11/17 23:15 ABG Base Excess 0.0 mmol/L (-2.0-3.0) 05/11/17 23:15 ABG Hemoglobin 10.7 g/dL (11.7-17.4) L 05/11/17 23:15 ABG Carboxyhemoglobin 2.1 % (0.5-1.5) H 05/11/17 23:15 POC ABG HHb (Measured) 1.5 % (0-5) 05/11/17 23:15 ABG Methemoglobin 1.0 % (0.0-3.0) 05/11/17 23:15 ABG O2 Capacity 14.6 mL/dl (16-24) L 05/11/17 23:15 VBG pH 7.50 (7.32-7.43) H 05/13/17 16:30 VBG pCO2 33.0 (40-60) L 05/13/17 16:30 VBG HCO3 25.7 mmol/l (21-28) 05/13/17 16:30 VBG Total CO2 26.7 mmol.L (22-28) 05/13/17 16:30 VBG O2 Sat (Calc) 95.4 % (40-65) H 05/13/17 16:30 VBG Base Excess 2.7 mmol/L (0.0-2.0) H 05/13/17 16:30 VBG Potassium 3.4 mmol/L (3.6-5.2) L 05/13/17 16:30 Hgb O2 Saturation 95.4 % (95.0-98.0) 05/11/17 23:15 Sodium 135.0 mmol/L (132-148) 05/13/17 16:30 Chloride 100.0 mmol/L (98-107) 05/13/17 16:30 Glucose 186 mg/dl (75-110) H 05/13/17 16:30 Lactate 0.8 mmol/L (0.7-2.1) 05/13/17 16:30 FiO2 21.0 % 05/13/17 16:30 Sodium 137 mmol/L (132-148) 05/23/17 07:41 Potassium 4.0 mmol/L (3.6-5.0) 05/23/17 07:41 Chloride 96 mmol/L (95-110) 05/23/17 07:41 Carbon Dioxide 30 mmol/L (21-33) 05/23/17 07:41 Anion Gap 15 (10-20) 05/23/17 07:41 BUN 20 mg/dL (7-21) 05/23/17 07:41 Creatinine 3.7 mg/dL (0.5-1.4) H 05/23/17 07:41 Est GFR ( Amer) 21 05/23/17 07:41 Est GFR (Non-Af Amer) 17 05/23/17 07:41 POC Glucose (mg/dL) 272 mg/dL (65-110) H 05/22/17 21:19 Random Glucose 157 mg/dL (70-110) H 05/23/17 07:41 Lactic Acid 0.7 mmol/L (0.7-2.1) 05/14/17 08:00 Calcium 8.7 mg/dL (8.4-10.5) 05/23/17 07:41 Phosphorus 3.0 mg/dL (2.5-4.5) 05/23/17 07:41 Magnesium 1.7 mg/dL (1.7-2.2) 05/23/17 07:41 Total Bilirubin 0.4 mg/dL (0.2-1.3) 05/23/17 07:41 AST 24 U/L (17-59) 05/23/17 07:41 ALT 30 U/L (7-56) 05/23/17 07:41 Alkaline Phosphatase 103 U/L (38-126) 05/23/17 07:41 Total Creatine Kinase 49 U/L (35-230) 05/15/17 16:35 Troponin I 0.03 ng/mL D 05/11/17 22:47 Total Protein 6.5 g/dL (5.8-8.3) 05/23/17 07:41 Albumin 3.0 g/dL (3.0-4.8) 05/23/17 07:41 Globulin 3.5 gm/dL 05/23/17 07:41 Albumin/Globulin Ratio 0.9 (1.1-1.8) L 05/23/17 07:41 Procalcitonin 0.15 NG/ML (0.19-0.49) L 05/11/17 16:00 Venous Blood Potassium 3.4 mmol/L (3.6-5.2) L 05/13/17 16:30 Urine Color Yellow (YELLOW) 05/15/17 16:00 Urine Appearance Sl cloudy (CLEAR) 05/15/17 16:00 Urine pH 8.0 (4.7-8.0) 05/15/17 16:00 Ur Specific [place] 1.020 (1.005-1.035) 05/15/17 16:00 Urine Protein >=300 mg/dL (<30 mg/dL) H 05/15/17 16:00 Urine Glucose (UA) 100 mg/dL (NEGATIVE) H 05/15/17 16:00 Urine Ketones 15 mg/dL (NEGATIVE) H 05/15/17 16:00 Urine Blood Small (NEGATIVE) H 05/15/17 16:00 Urine Nitrate Negative (NEGATIVE) 05/15/17 16:00 Urine Bilirubin Small (NEGATIVE) H 05/15/17 16:00 Urine Urobilinogen 1.0 E.U./dL (<1 E.U./dL) H 05/15/17 16:00 Ur Leukocyte Esterase Small [place]/uL (NEGATIVE) H 05/15/17 16:00 Urine RBC 0 - 2 /hpf (0-2) 05/15/17 16:00 Urine WBC 0 - 2 /hpf (0-6) 05/15/17 16:00 Ur Epithelial Cells 0 - 2 /hpf (0-5) 05/15/17 16:00 Amorphous Sediment Many 05/11/17 18:05 Urine Bacteria Many (NEG) 05/15/17 16:00 Fine Granular Casts 0 - 2 /hpf (0-2) 05/15/17 16:00 Random Vancomycin 23.3 ug/mL (20.0-40.0) 05/15/17 07:00 Alcohol, Quantitative < 10 mg/dL (0-10) 05/11/17 16:00 ANCA Screen Negative (NEGATIVE) 05/16/17 11:50 c-ANCA Titer TNP 05/16/17 11:50 Proteinase 3 (PR3) <1.0 AI (<1.0) 05/16/17 11:50 p-ANCA Titer TNP 05/16/17 11:50 Atypical p-ANCA Titer TNP 05/16/17 11:50 Myeloperoxidase Ab <1.0 AI (<1.0) 05/16/17 11:50 Glomerular Base Mem IgG <1.0 AI (<1.0) 05/16/17 11:50 - Hospital Course Hospital Course: Patient is a 56 year old male with a PMHx of ESRD on HD, CAD, HTN, VT x 3, DM-2 , peripheral neuropathy, history of falls, history of CVA, AMS, and GI bleed who is being admitted for evaluation and treatment of generalized weakness and fever due to HCAP vs UTI. Patient had a witnessed fall and landed on R shoulder. R Shoulder x ray was negative for fracture. CT abd/pelvis showed possible lung abscess, no acute intra-abdominal findings. CT chest was done for further evaluation of possible lung abscess. Patient was found to have pseudomonas bacteremia/septic emboli in the lung. Patient underwent lung biopsy which also showed pseudomonas. Catheter tip cx also grew pseudomonas. Cardiology was consulted and on the case. Transesophageal echo showed no vegetations, MV leaflets appears thickened. Infectious disease was consulted and on case. Tunneled dialysis catheter was removed and patient had a temporary L IJ hemodialysis catheter placed. Patient was on IV Cefepime. ID recommended patient receive total of 4-6 weeks of IV antibiotics. Repeat blood cx on 05/18 were negative. Initial urine cx grew VRE, repeat cultures were negative. Patient had a martinez catheter in and failed voiding trial. Martinez was reinserted and patient was started on Flomax, needs to follow urology as an outpatient. Labs and electrolytes were monitored and repleted as needed. During hospital stay patient was seen by palliative care and made DNR/DNI. Patient was also seen by psychiatry for depression. On 05/23/17 patient was insistent on leaving to hospital. Multiple attempts were made to convince the patient that current treatment was medically necessary. Patient was adamant about leaving and signed out against medical advice. Discharge Exam - Head Exam Head Exam: ATRAUMATIC, NORMAL INSPECTION - Eye Exam Eye Exam: EOMI, Normal appearance Pupil Exam: NORMAL ACCOMODATION, PERRL - ENT Exam ENT Exam: Mucous Membranes Moist - Neck Exam Neck exam: Full Rom - Respiratory Exam Respiratory Exam: Clear to PA & Lateral, UNREMARKABLE. absent: Rales, Rhonchi, Wheezes - Cardiovascular Exam Cardiovascular Exam: REGULAR RHYTHM, +S1, +S2 - GI/Abdominal Exam GI & Abdominal Exam: Normal Bowel Sounds, Soft. absent: Tenderness - Exam Additional comments: Martinez in - Neurological Exam Neurological exam: Alert, Oriented x3 - Psychiatric Exam Psychiatric exam: Normal Affect, Normal Mood - Skin Skin Exam: Normal Color, Warm Discharge Plan - Follow Up Plan Condition: FAIR Disposition: AGAINST MEDICAL ADVICE Instructions: Sepsis (ED) Referrals: Mercedez Parekh MD [Primary Care Provider] - <Marty Muir - Last Filed: 05/25/17 13:54> Provider - Provider Date of Admission: 05/11/17 16:50 Attending physician: Marty Muir MD Primary care physician: Mercedez Parekh MD Time Spent in preparation of Discharge (in minutes): 35 Hospital Course - Lab Results Lab Results: Micro Results 05/16/17 11:15 Other: Please Indicate Mycobacterial Culture - Preliminary 05/18/17 14:00 Blood-Venous Blood Culture - Final NO GROWTH AFTER 5 DAYS 05/18/17 14:00 Blood-Venous Gram Stain - Final TEST NOT PERFORMED 05/18/17 13:30 Blood-Venous Blood Culture - Final NO GROWTH AFTER 5 DAYS 05/18/17 13:30 Blood-Venous Gram Stain - Final TEST NOT PERFORMED 05/19/17 14:20 Catheter Tip Catheter Tip Culture - Final Pseudomonas Aeruginosa 05/15/17 16:30 Blood Blood Culture - Final NO GROWTH AFTER 5 DAYS 05/15/17 16:30 Blood Gram Stain - Final TEST NOT PERFORMED 05/15/17 16:00 Blood Blood Culture - Final NO GROWTH AFTER 5 DAYS 05/15/17 16:00 Blood Gram Stain - Final TEST NOT PERFORMED 05/15/17 14:03 Blood-During Dialysis Blood Culture - Final NO GROWTH AFTER 5 DAYS 05/15/17 14:03 Blood-During Dialysis Gram Stain - Final TEST NOT PERFORMED 05/14/17 11:30 Blood Blood Culture - Final NO GROWTH AFTER 5 DAYS 05/14/17 11:30 Blood Gram Stain - Final TEST NOT PERFORMED 05/14/17 11:00 Blood Blood Culture - Final Pseudomonas Aeruginosa 05/14/17 11:00 Blood Gram Stain - Final 05/13/17 13:31 Blood-Venous Blood Culture - Final NO GROWTH AFTER 5 DAYS 05/13/17 13:31 Blood-Venous Gram Stain - Final TEST NOT PERFORMED 05/13/17 13:31 Blood-Venous Blood Culture - Final Pseudomonas Aeruginosa 05/13/17 13:31 Blood-Venous Gram Stain - Final 05/15/17 14:15 Blood-Venous Blood Culture - Final Pseudomonas Aeruginosa 05/15/17 14:15 Blood-Venous Gram Stain - Final 05/16/17 11:15 Other: Please Indicate Anaerobic Culture - Final NO ANAEROBES ISOLATED. 05/16/17 11:15 Other: Please Indicate Gram Stain - Final 05/16/17 11:15 Other: Please Indicate Body Fluid Culture - Final Pseudomonas Aeruginosa 05/16/17 11:15 Lung Slim Fungal Culture - Preliminary 05/15/17 16:00 Urine,Martinez Urine Culture - Final No Growth (<1,000 CFU/ML) 05/11/17 18:05 Urine Urine Culture - Final Vancomycin Res E.faecalis Most Recent Lab Values WBC 7.5 10^3/ul (4.5-11.0) 05/23/17 07:41 RBC 3.33 10^6/uL (3.5-6.1) L 05/23/17 07:41 Hgb 8.9 g/dL (14.0-18.0) L 05/23/17 07:41 Hct 28.5 % (42.0-52.0) L 05/23/17 07:41 MCV 85.6 fl (80.0-105.0) 05/23/17 07:41 MCH 26.7 pg (25.0-35.0) 05/23/17 07:41 MCHC 31.2 g/dl (31.0-37.0) 05/23/17 07:41 RDW 17.8 % (11.5-14.5) H 05/23/17 07:41 Plt Count 343 10^3/uL (120.0-450.0) 05/23/17 07:41 MPV 10.6 fl (7.0-11.0) 05/23/17 07:41 Gran % 65.4 % (50.0-68.0) 05/23/17 07:41 Lymph % (Auto) 25.0 % (22.0-35.0) 05/23/17 07:41 [place] % (Auto) 6.8 % (1.0-6.0) H 05/23/17 07:41 Eos % (Auto) 2.0 % (1.5-5.0) 05/23/17 07:41 Baso % (Auto) 0.8 % (0.0-3.0) 05/23/17 07:41 Gran # 4.87 (1.4-6.5) 05/23/17 07:41 Lymph # 1.9 (1.2-3.4) 05/23/17 07:41 [place] # 0.5 (0.1-0.6) 05/23/17 07:41 Eos # 0.2 (0.0-0.7) 05/23/17 07:41 Baso # 0.06 K/mm3 (0.0-2.0) 05/23/17 07:41 Neutrophils % (Manual) 86 % (50.0-70.0) H 05/12/17 17:04 Band Neutrophils % 6 % (0-2) H 05/12/17 17:04 Lymphocytes % (Manual) 7 % (22.0-35.0) L 05/12/17 17:04 Monocytes % (Manual) 1 % (1.0-6.0) 05/12/17 17:04 Platelet Evaluation Normal (NORMAL) 05/12/17 17:04 Large Platelets Present 05/12/17 17:04 Hypochromasia Slight 05/12/17 17:04 Poikilocytosis (manual Slight 05/12/17 17:04 Ovalocytes 2+ 05/12/17 17:04 Rouleaux 1+ 05/12/17 17:04 Schistocytes Slight 05/12/17 17:04 ESR 81 mm/hr (0.00-15.0) H 05/13/17 13:31 PT 13.4 Seconds (9.9-11.8) H 05/11/17 16:00 INR 1.24 (0.93-1.08) H 05/11/17 16:00 APTT 33.2 Seconds (23.7-30.8) H 05/11/17 16:00 pCO2 28 mm/Hg (35-45) L 05/11/17 23:15 pO2 61 mm/Hg (30-55) H 05/13/17 16:30 HCO3 22.3 mmol/L (21-28) 05/11/17 23:15 ABG pH 7.51 (7.35-7.45) H 05/11/17 23:15 ABG Total CO2 23.2 mmol.L (22-28) 05/11/17 23:15 ABG O2 Saturation 98.5 % (95-98) H 05/11/17 23:15 ABG O2 Content 14.4 ML/dl (15-23) L 05/11/17 23:15 ABG Base Excess 0.0 mmol/L (-2.0-3.0) 05/11/17 23:15 ABG Hemoglobin 10.7 g/dL (11.7-17.4) L 05/11/17 23:15 ABG Carboxyhemoglobin 2.1 % (0.5-1.5) H 05/11/17 23:15 POC ABG HHb (Measured) 1.5 % (0-5) 05/11/17 23:15 ABG Methemoglobin 1.0 % (0.0-3.0) 05/11/17 23:15 ABG O2 Capacity 14.6 mL/dl (16-24) L 05/11/17 23:15 VBG pH 7.50 (7.32-7.43) H 05/13/17 16:30 VBG pCO2 33.0 (40-60) L 05/13/17 16:30 VBG HCO3 25.7 mmol/l (21-28) 05/13/17 16:30 VBG Total CO2 26.7 mmol.L (22-28) 05/13/17 16:30 VBG O2 Sat (Calc) 95.4 % (40-65) H 05/13/17 16:30 VBG Base Excess 2.7 mmol/L (0.0-2.0) H 05/13/17 16:30 VBG Potassium 3.4 mmol/L (3.6-5.2) L 05/13/17 16:30 Hgb O2 Saturation 95.4 % (95.0-98.0) 05/11/17 23:15 Sodium 135.0 mmol/L (132-148) 05/13/17 16:30 Chloride 100.0 mmol/L (98-107) 05/13/17 16:30 Glucose 186 mg/dl (75-110) H 05/13/17 16:30 Lactate 0.8 mmol/L (0.7-2.1) 05/13/17 16:30 FiO2 21.0 % 05/13/17 16:30 Sodium 137 mmol/L (132-148) 05/23/17 07:41 Potassium 4.0 mmol/L (3.6-5.0) 05/23/17 07:41 Chloride 96 mmol/L (95-110) 05/23/17 07:41 Carbon Dioxide 30 mmol/L (21-33) 05/23/17 07:41 Anion Gap 15 (10-20) 05/23/17 07:41 BUN 20 mg/dL (7-21) 05/23/17 07:41 Creatinine 3.7 mg/dL (0.5-1.4) H 05/23/17 07:41 Est GFR ( Amer) 05/23/17 07:41 Est GFR (Non-Af Amer) 05/23/17 07:41 POC Glucose (mg/dL) 259 mg/dL (65-110) H 05/23/17 10:56 Random Glucose 157 mg/dL (70-110) H 05/23/17 07:41 Lactic Acid 0.7 mmol/L (0.7-2.1) 05/14/17 08:00 Calcium 8.7 mg/dL (8.4-10.5) 05/23/17 07:41 Phosphorus 3.0 mg/dL (2.5-4.5) 05/23/17 07:41 Magnesium 1.7 mg/dL (1.7-2.2) 05/23/17 07:41 Total Bilirubin 0.4 mg/dL (0.2-1.3) 05/23/17 07:41 AST 24 U/L (17-59) 05/23/17 07:41 ALT 30 U/L (7-56) 05/23/17 07:41 Alkaline Phosphatase 103 U/L (38-126) 05/23/17 07:41 Total Creatine Kinase 49 U/L (35-230) 05/15/17 16:35 Troponin I 0.03 ng/mL D 05/11/17 22:47 Total Protein 6.5 g/dL (5.8-8.3) 05/23/17 07:41 Albumin 3.0 g/dL (3.0-4.8) 05/23/17 07:41 Globulin 3.5 gm/dL 05/23/17 07:41 Albumin/Globulin Ratio 0.9 (1.1-1.8) L 05/23/17 07:41 Procalcitonin 0.15 NG/ML (0.19-0.49) L 05/11/17 16:00 Venous Blood Potassium 3.4 mmol/L (3.6-5.2) L 05/13/17 16:30 Urine Color Yellow (YELLOW) 05/15/17 16:00 Urine Appearance Sl cloudy (CLEAR) 05/15/17 16:00 Urine pH 8.0 (4.7-8.0) 05/15/17 16:00 Ur Specific [place] 1.020 (1.005-1.035) 05/15/17 16:00 Urine Protein >=300 mg/dL (<30 mg/dL) H 05/15/17 16:00 Urine Glucose (UA) 100 mg/dL (NEGATIVE) H 05/15/17 16:00 Urine Ketones 15 mg/dL (NEGATIVE) H 05/15/17 16:00 Urine Blood Small (NEGATIVE) H 05/15/17 16:00 Urine Nitrate Negative (NEGATIVE) 05/15/17 16:00 Urine Bilirubin Small (NEGATIVE) H 05/15/17 16:00 Urine Urobilinogen 1.0 E.U./dL (<1 E.U./dL) H 05/15/17 16:00 Ur Leukocyte Esterase Small [place]/uL (NEGATIVE) H 05/15/17 16:00 Urine RBC 0 - 2 /hpf (0-2) 05/15/17 16:00 Urine WBC 0 - 2 /hpf (0-6) 05/15/17 16:00 Ur Epithelial Cells 0 - 2 /hpf (0-5) 05/15/17 16:00 Amorphous Sediment Many 05/11/17 18:05 Urine Bacteria Many (NEG) 05/15/17 16:00 Fine Granular Casts 0 - 2 /hpf (0-2) 05/15/17 16:00 Random Vancomycin 23.3 ug/mL (20.0-40.0) 05/15/17 07:00 Alcohol, Quantitative < 10 mg/dL (0-10) 05/11/17 16:00 ANCA Screen Negative (NEGATIVE) 05/16/17 11:50 c-ANCA Titer TNP 05/16/17 11:50 Proteinase 3 (PR3) <1.0 AI (<1.0) 05/16/17 11:50 p-ANCA Titer TNP 05/16/17 11:50 Atypical p-ANCA Titer TNP 05/16/17 11:50 Myeloperoxidase Ab <1.0 AI (<1.0) 05/16/17 11:50 Glomerular Base Mem IgG <1.0 AI (<1.0) 05/16/17 11:50 Attending/Attestation - Attestation I have personally seen and examined this patient.: Yes I have fully participated in the care of the patient.: Yes I have reviewed all pertinent clinical information, including history, physical exam and plan: Yes Notes (Text): Patient left AMA. Verbalized understanding to all the complications.
== END 2017-05-23 14:26 | disposition left against medical advice (07) | DRG 543 ==
LOC: ED 15:13 → ERH 16:50 → 2RNO 21:41 → 5RSO 05-19 23:09
PROVIDERS: ADMIT Hospitalist; ATTEND Hospitalist
PROC: 5A1D60Z (ICD-10-PCS; 2017-05-11)
PROC: 3E0F7GC Introduction of Other Therapeutic Substance into Respiratory Tract, Via Natural or Artificial Opening (ICD-10-PCS; 2017-05-12)
PROC: 0BBL3ZX Excision of Left Lung, Percutaneous Approach, Diagnostic (ICD-10-PCS; principal; 2017-05-16 10:00)
PROC: 02H633Z Insertion of Infusion Device into Right Atrium, Percutaneous Approach (ICD-10-PCS; 2017-05-18)
PROC: 0JP Subcutaneous Tissue and Fascia, Removal (ICD-10-PCS; 2017-05-18)
PROC: B24BZZ4 Ultrasonography of Heart with Aorta, Transesophageal (ICD-10-PCS; 2017-05-18)
DX: T82.7XXA Infection and inflammatory reaction due to other cardiac and vascular devices, implants and grafts, initial encounter (principal); A41.52 Sepsis due to Pseudomonas; I26.90 Septic pulmonary embolism without acute cor pulmonale; J85.1 Abscess of lung with pneumonia; N18.6 End stage renal disease; I13.2 Hypertensive heart and chronic kidney disease with heart failure and with stage 5 chronic kidney disease, or end stage renal disease; N17.9 Acute kidney failure, unspecified; I36.8 Other nonrheumatic tricuspid valve disorders; M62.82 Rhabdomyolysis; I50.22 Chronic systolic (congestive) heart failure; N39.0 Urinary tract infection, site not specified; E11.22 Type 2 diabetes mellitus with diabetic chronic kidney disease; E11.42 Type 2 diabetes mellitus with diabetic polyneuropathy; E11.43 Type 2 diabetes mellitus with diabetic autonomic (poly)neuropathy; E11.51 Type 2 diabetes mellitus with diabetic peripheral angiopathy without gangrene; E87.6 Hypokalemia; N31.9 Neuromuscular dysfunction of bladder, unspecified; E87.1 Hypo-osmolality and hyponatremia; K22.10 Ulcer of esophagus without bleeding; N25.81 Secondary hyperparathyroidism of renal origin; K31.84 Gastroparesis; I25.118 Atherosclerotic heart disease of native coronary artery with other forms of angina pectoris; R33.9 Retention of urine, unspecified; E78.5 Hyperlipidemia, unspecified; Z66 Do not resuscitate; G47.00 Insomnia, unspecified; M25.511 Pain in right shoulder; F10.20 Alcohol dependence, uncomplicated; D64.9 Anemia, unspecified; K20.9 Esophagitis, unspecified; K29.70 Gastritis, unspecified, without bleeding; E83.39 Other disorders of phosphorus metabolism; F32.9 Major depressive disorder, single episode, unspecified; E55.9 Vitamin D deficiency, unspecified; K59.00 Constipation, unspecified; Z99.2 Dependence on renal dialysis; I25.2 Old myocardial infarction; Z86.73 Personal history of transient ischemic attack (TIA), and cerebral infarction without residual deficits; Z91.81 History of falling; Z95.5 Presence of coronary angioplasty implant and graft; Z95.1 Presence of aortocoronary bypass graft; Y84.8 Other medical procedures as the cause of abnormal reaction of the patient, or of later complication, without mention of misadventure at the time of the procedure; Z88.5 Allergy status to narcotic agent; Z91.013 Allergy to seafood

== ENCOUNTER 2017-05-29 12:23 | Inpatient (IN) | payer MEDICAID, OTHER ==
[2017-05-29 12:23] VITALS: BMI 29.5
--- NOTE | 2017-05-29 13:22 | ED PDOC ---
Arrival/HPI - General Chief Complaint: Medical Clearance Time Seen by Provider: 05/29/17 12:48 Historian: Patient - History of Present Illness Narrative History of Present Illness (Text): 05/29/17 13:21 A 56 year old male, whose past medical history includes ESRD (hemodialysis on M, W,F), presents to the emergency department because patient missed last two dialysis treatments and is due for dialysis today. Patient feels well. Patient denies any complaints at this time. Activities at Onset: Rest Modifying Factors (Text): none Context: Home Associated Symptoms (Text): none Past Medical History - Provider Review Nursing Documentation Reviewed: Yes - Infectious Disease Hx of Infectious Diseases: None - Tetanus Immunization Tetanus Immunization: Unknown - Cardiac Hx Cardiac Disorders: Yes (CAD, NE x 3, CABG x 3) Hx Hypertension: Yes - Pulmonary Hx Respiratory Disorders: Yes Other/Comment: PULMONARY EDEMA - Neurological HX Cerebrovascular Accident: Yes - HEENT Hx HEENT Disorder: Yes (CONTACT LENSES) - Renal Date of Last Dialysis Treatment: 05/22/17 Hx Renal Failure: Yes Other/Comment: Dialysis M-W-F - Endocrine/Metabolic Hx Diabetes Mellitus Type 2: Yes - Hematological/Oncological Hx Blood Disorders: No - Integumentary Hx Dermatological Disorder: Yes Other/Comment: righty lower ext rash, pt stated "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" - Musculoskeletal/Rheumatological Hx Musculoskeletal Disorders: No Hx Falls: Yes Other/Comment: generalized weakness - Gastrointestinal Hx Gastrointestinal Disorders: No - Genitourinary/Gynecological Hx Urinary Tract Infection: Yes - Psychiatric Hx Psychophysiologic Disorder: No Hx Depression: No Hx Emotional Abuse: No Hx Physical Abuse: No Hx Substance Use: Yes - Surgical History Hx Amputation: Yes (R toes) Hx Cardiac Catheterization: Yes (09/09) Hx Coronary Stent: Yes Hx Open Heart Surgery: Yes (12-26-12) Other/Comment: temporary dialysis catheter - Anesthesia Hx Anesthesia: Yes Hx Anesthesia Reactions: No Hx Malignant Hyperthermia: No - Suicidal Assessment Feels Threatened In Home Enviroment: No Family/Social History - Physician Review Nursing Documentation Reviewed: Yes Family/Social History: No Known Family HX Smoking Status: Never Smoked Hx Alcohol Use: Yes Hx Substance Use: Yes Hx Substance Use Treatment: No Allergies/Home Meds Allergies/Adverse Reactions: Allergies Seafood Allergy (Uncoded 05/07/17 10:01) ANAPHYLAXIS Review of Systems - Physician Review All systems were reviewed & negative as marked: Yes Physical Exam - Physical Exam Narrative Physical Exam (Text): 05/29/17 13:20 - Review of Systems Constitutional: Normal. absent: Fatigue, Weight Change, Fevers Eyes: Normal ENT: denies sore throat, denies tristhmus Respiratory: Normal. absent: SOB, Cough, Sputum Cardiovascular: absent: Chest Pain, Palpitations, Syncope Gastrointestinal: Normal. absent: Abdominal Pain, Diarrhea, Nausea, Vomiting Genitourinary: Normal. absent: Dysuria, Frequency, Hematuria Musculoskeletal: Normal. absent: Arthralgias, Back Pain, Neck Pain Skin: no rashes, no erythema Neurological: absent: Focal Weakness Endocrine: Normal Hemo/Lymphatic: Normal Psychiatric: No suicidal or homicidal ideations Physical exam Patient appears age appropriate in no distress, speaking full sentences without difficulty - Systems Exam Head: Present: Atraumatic, Normocephalic Pupils: Present: PERRL Extroacular Muscles: Present: EOMI Conjunctiva: Present: Normal Mouth: Present: Moist Mucous Membranes Neck: Present: Normal Range of Motion. No: MIDLINE TENDERNESS, Paraspinal Tenderness Respiratory/Chest: Present: Clear to Auscultation, Good Air Exchange. No: Respiratory Distress, Accessory Muscle Use, Tachypneic Cardiovascular: Present: Regular Rate and Rhythm, Normal S1, S2, Peripheal Pulses Present. No: Murmurs Abdomen: Present: Normal Bowel Sounds. No: Tenderness, Distention, Peritoneal Signs, Rebound, Guarding Back: Present: Normal Inspection. No: Midline Tenderness, Paraspinal Tenderness Upper Extremity: Present: Normal Inspection. No: Cyanosis, Edema Lower Extremity: Present: Normal Inspection. No: Edema Neurological: Present: GCS=15, Speech Normal, cranial nerves II through XII fully intact with no cerebellar abnormality, neurosensory fully intact. No focal neurological deficits. Skin: Present: Warm, Dry, Normal Color. No: Rashes Lymphatic: Present: OX3, NI, NC Psychiatric: Present: Alert, Oriented x 3, Normal Insight, Normal Concentration Vital Signs Reviewed: Yes Vital Signs Temp Pulse Resp BP Pulse Ox 05/29/17 12:47 98.7 F 73 18 157/84 H 96 Temperature: Afebrile Blood Pressure: Hypertensive Pulse: Regular Respiratory Rate: Normal Appearance: Positive for: Well-Appearing, Non-Toxic, Comfortable Pain Distress: None Mental Status: Positive for: Alert and Oriented X 3 Medical Decision Making ED Course and Treatment: 05/29/17 13:19 Impression: A 56 year old male here for dialysis treatment. No acute findings on physical exam. Plan: -- EKG -- chest xray -- labs -- Reassess and disposition Prior Visits: Notes and results from previous visits were reviewed. Patient was last seen in the emergency department on 05/11/17 for evaluation of generalized weakness and fever. Progress Notes: EKG: EKG shows NSR at [address]-segment elevations, normal intervals. Interpreted by me. 05/29/17 14:[address] Garrett in detail, who asked to admit patient to hospitalist service because patient has bacteremia and signed out against medical advice. He states he will dialyze in meantime. 05/29/17 14:[address] Moore and he accepted admission. Patient is aware and in agreement with plan to be admitted to hospital. - Lab Interpretations Lab Results: 05/29/17 13:05 05/29/17 13:05 Lab Results 05/29/17 13:05: Sodium 140, Potassium 4.2, Chloride 103, Carbon Dioxide 22, Anion Gap 19, BUN 52 H, Creatinine 6.5 H, Est GFR ( Amer) 11, Est GFR ( Non-Af Amer) 9, Random Glucose 137 H, Calcium 8.7, Total Bilirubin 0.7, AST 19, ALT 15, Alkaline Phosphatase 96, Total Protein 6.6, Albumin 3.6, Globulin 3.1, Albumin/Globulin Ratio 1.2 05/29/17 13:05: WBC 4.5 D, RBC 3.42 L, Hgb 9.5 L, Hct 29.7 L, MCV 86.8, MCH 27.8, MCHC 32.0, RDW 18.3 H, Plt Count 295, MPV 9.9, Gran % 56.0, Lymph % (Auto ) 30.2, Murray % (Auto) 6.7 H, Eos % (Auto) 4.4, Baso % (Auto) 2.7, Gran # 2.52, Lymph # 1.4, Murray # 0.3, Eos # 0.2, Baso # 0.12 I have reviewed the lab results: Yes - RAD Interpretation Radiology Orders: 05/29/17 12:51 CHEST PORTABLE [RAD] Stat - EKG Interpretation Interpreted by ED Physician: Yes Type: 12 lead EKG - Medication Orders Current Medication Orders: Cefepime HCl (Maxipime 1gm) 1 gm in 100 mls @ 100 mls/hr IVPB Q24H STA PRN Reason: Protocol Stop: 05/29/17 15:03 - Scribe Statement The provider has reviewed the documentation as recorded by the Tamara Zee Provider Scribe Attestation: All medical record entries made by the Scribe were at my direction and personally dictated by me. I have reviewed the chart and agree that the record accurately reflects my personal performance of the history, physical exam, medical decision making, and the department course for this patient. I have also personally directed, reviewed, and agree with the discharge instructions and disposition. Disposition/Present on Arrival - Present on Arrival Any Indicators Present on Arrival: No History of DVT/PE: No History of Uncontrolled Diabetes: Yes Urinary Catheter: Yes History of Decub. Ulcer: No History Surgical Site Infection Following: None - Disposition Have Diagnosis and Disposition been Completed?: Yes Diagnosis: ESRD on dialysis Disposition: HOSPITALIZED Disposition Time: 14:23 Patient Plan: Admission Condition: FAIR Referrals: Mercedez Parekh MD [Primary Care Provider] - Follow up with primary Forms: [employer] (Japanese)
[2017-05-29 13:27] LABS: BASO # 0.12 K/mm3 (0.0-2.0); BASO % 2.7 % (0.0-3.0); EOS # 0.2 (0.0-0.7); EOS % 4.4 % (1.5-5.0); GRAN # 2.52 (1.4-6.5); HEMATOCRIT 29.7 % (42.0-52.0); LYMPH # 1.4 (1.2-3.4); LYMPH % 30.2 % (22.0-35.0); MEAN CELL VOLUME 86.8 fl (80.0-105.0); MEAN CORPUSCULAR HEMOGLOBIN 27.8 pg (25.0-35.0); MEAN PLATELET VOLUME 9.9 fl (7.0-11.0); MONO # 0.3 (0.1-0.6); MONO % 6.7 % (1.0-6.0); RED CELL DISTRIBUTION WIDTH 18.3 % (11.5-14.5); WHITE BLOOD COUNT 4.5 10^3/ul (4.5-11.0)
[2017-05-29 13:37] LABS: ALB/GLOB RATIO 1.2 (1.1-1.8); BILIRUBIN,TOTAL 0.7 mg/dL (0.2-1.3); CALCIUM 8.7 mg/dL (8.4-10.5); POTASSIUM 4.2 mmol/L (3.6-5.0); TOTAL PROTEIN 6.6 g/dL (5.8-8.3)
[2017-05-29] MEDS ORDERED: Cefepime 1gm in NS 100ml 1 GM/100 ML BAG IVPB STA (14:04)
--- NOTE | 2017-05-29 14:41 | CP.PCM.HP ---
<Nancy Clemens - Last Filed: 05/29/17 21:19> History of Present Illness - History of Present Illness History of Present Illness: Patient is a 56 year old male with past medical history of ESRD on HD MWF, CAD, HTN, CO x 3, DM with gastroparesis, peripheral neuropathy, CABG presents to the ED for hemodialysi. Patient was recently admitted for sepsis 2/2 line infection , found to be bacteremic with pseudomonas that was treated with IV cefepime. Patient signout AMA last week and has not recieved hemodialysis since then. Denies any complaints at this time. Denies headaches, dizziness, cp, palpitations, sob, abdominal pain, urinary symptoms, changes in bowel habits. PCP: Dr Mack Allergies: Morphine, seafood Medications: Please see MAR Medical Hx: ESRD, CAD, HTN, DM, peripheral neuropathy Surgical Hx: Stents x 3, CABG, left hip surgery, Left knee surgery, Right foot partial amputation Social Hx: Denies recent tobacco, etoh ID: THC use in recent past, lives with roomate, ambulates with assistance of walker Family Hx: non-contributory Present on Admission - Present on Admission Any Indicators Present on Admission: Yes Urinary Catheter: Yes (Placed 05/15/17) Review of Systems - Review of Systems All systems: reviewed and no additional remarkable complaints except - Constitutional Constitutional: absent: Chills, Fever - EENT Eyes: absent: Blurred Vision, Change in Vision Ears: absent: Dizziness - Cardiovascular Cardiovascular: absent: Chest Pain, Dyspnea, Edema, Lightheadedness, Palpitations - Respiratory Respiratory: absent: Cough, Dyspnea, Wheezing - Gastrointestinal Gastrointestinal: absent: Abdominal Pain, Constipation, Diarrhea, Nausea, Vomiting - Genitourinary Genitourinary: absent: Difficulty Urinating, Dysuria - Musculoskeletal Musculoskeletal: absent: Back Pain - Neurological Neurological: absent: Confusion, Dizziness, Numbness, Headaches, Tremor, Weakness - Psychiatric Psychiatric: absent: Anxiety, Depression Past Patient History - Infectious Disease Hx of Infectious Diseases: None - Tetanus Immunizations Tetanus Immunization: Unknown - Past Medical History & Family History Past Medical History?: Yes - Past Social History Smoking Status: Never Smoked - CARDIAC Hx Cardiac Disorders: Yes (CAD, CO x 3, CABG x 3) Hx Hypertension: Yes - PULMONARY Hx Respiratory Disorders: Yes Other/Comment: PULMONARY EDEMA - NEUROLOGICAL HX Cerebrovascular Accident: Yes - HEENT Hx HEENT Problems: Yes (CONTACT LENSES) - RENAL Date of Last Dialysis Treatment: 05/22/17 Hx Renal Failure: Yes Other/Comment: Dialysis M-W-F - ENDOCRINE/METABOLIC Hx Diabetes Mellitus Type 2: Yes - HEMATOLOGICAL/ONCOLOGICAL Hx Blood Disorders: No - INTEGUMENTARY Hx Dermatological Problems: Yes Other/Comment: righty lower ext rash, pt stated "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" - MUSCULOSKELETAL/RHEUMATOLOGICAL Hx Musculoskeletal Disorders: No Hx Falls: Yes Other/Comment: generalized weakness - GASTROINTESTINAL Hx Gastrointestinal Disorders: No - GENITOURINARY/GYNECOLOGICAL Hx Urinary Tract Infection: Yes - PSYCHIATRIC Hx Psychophysiologic Disorder: No Hx Depression: No Hx Emotional Abuse: No Hx Physical Abuse: No Hx Substance Use: Yes - SURGICAL HISTORY Hx Amputation: Yes (R toes) Hx Cardiac Catheterization: Yes (09/09) Hx Coronary Stent: Yes Hx Open Heart Surgery: Yes (12-26-12) Other/Comment: temporary dialysis catheter - ANESTHESIA Hx Anesthesia: Yes Hx Anesthesia Reactions: No Hx Malignant Hyperthermia: No Meds Allergies/Adverse Reactions: Allergies Allergy/AdvReac Type Severity Reaction Status Date / Time Seafood Allergy ANAPHYLAXIS Uncoded 05/29/17 18:46 Physical Exam - Constitutional Appears: Unkempt, Older Than Stated Age - Head Exam Head Exam: ATRAUMATIC, NORMAL INSPECTION - Eye Exam Eye Exam: EOMI, Normal appearance Pupil Exam: NORMAL ACCOMODATION - ENT Exam ENT Exam: Mucous Membranes Moist - Neck Exam Neck exam: Positive for: Full Rom Additional comments: L IJ temporary dialysis catheter in place - Respiratory Exam Respiratory Exam: Clear to Auscultation Bilateral, NORMAL BREATHING PATTERN. absent: Rales, Rhonchi, Wheezes - Cardiovascular Exam Cardiovascular Exam: REGULAR RHYTHM, +S1, +S2 - GI/Abdominal Exam GI & Abdominal Exam: Normal Bowel Sounds, Soft. absent: Guarding, Rebound, Rigid, Tenderness - Rectal Exam Rectal Exam: Deferred - Exam Additional comments: Macias in - Extremities Exam Extremities exam: Positive for: pedal pulses present. Negative for: calf tenderness - Back Exam Back exam: NORMAL INSPECTION - Neurological Exam Neurological exam: Alert, Oriented x3 - Psychiatric Exam Psychiatric exam: Normal Affect, Normal Mood - Skin Skin Exam: Dry, Normal Color, Warm Results - Vital Signs Recent Vital Signs: Last Vital Signs Temp 98.7 F 05/29/17 12:47 Pulse 73 05/29/17 12:47 Resp 18 05/29/17 12:47 BP 157/84 H 05/29/17 12:47 Pulse Ox 96 05/29/17 12:47 - Labs Result Diagrams: 05/29/17 13:05 05/29/17 13:05 Labs: Laboratory Results - last 24 hr 05/29/17 05/29/17 13:05 13:05 WBC 4.5 D RBC 3.42 L Hgb 9.5 L Hct 29.7 L MCV 86.8 MCH 27.8 MCHC 32.0 RDW 18.3 H Plt Count 295 MPV 9.9 Gran % 56.0 Lymph % (Auto) 30.2 Lamb % (Auto) 6.7 H Eos % (Auto) 4.4 Baso % (Auto) 2.7 Gran # 2.52 Lymph # 1.4 Lamb # 0.3 Eos # 0.2 Baso # 0.12 Sodium 140 Potassium 4.2 Chloride 103 Carbon Dioxide 22 Anion Gap 19 BUN 52 H Creatinine 6.5 H Est GFR ( Amer) 11 Est GFR (Non-Af Amer) 9 Random Glucose 137 H Calcium 8.7 Total Bilirubin 0.7 AST 19 ALT 15 Alkaline Phosphatase 96 Total Protein 6.6 Albumin 3.6 Globulin 3.1 Albumin/Globulin Ratio 1.2 Assessment & Plan - Assessment and Plan (Free Text) Assessment: 56 year old male with past medical hx of ESRD on HD MWF, CAD, HTN, CO x 3, DM, peripheral neuropathy, s/p CABG presents to [facility] after missing dialysis for 1 week. Patient was recently admitted for bacteremia 2/2 line sepsis. Patient signed out against medical advise at that time. Plan: 1. ESRD on HD MWF -Stable, afebrile -Will go for HD today -Recieved 1 dose of cefepime -Follow up blood cx, urine cx -Will need permanent dialysis access -Continue Aranesp, Hectorol, Nephrovite -Nephrology consulted f/u recommendations -ID on consult f/u recommendations -PT eval ordered 2. Hypertension -Continue Cozaar and Hydralazine -Continue lopressor 3. Hx of CAD, s/p CABG -Contine ASA, Lipitor -Imdur daily 4. Hx of Diabetes Mellitus with gastroparesis -Levemir 12 units -Accuchecks ACHS -Zofran prn nausea -Colace and miralx 5. Peripheral Neuropathy -Continue Lyrica 6. Urinary retention -Macias has been in since 05/15 for retention -Patient was instructed to follow up with urology -Continue to monitor GI/DVT ppx -Protonix -SCDs <Lauren Godwin - Last Filed: 05/30/17 12:20> Results - Vital Signs Recent Vital Signs: Last Vital Signs Temp 98.1 F 05/30/17 06:00 Pulse 68 05/30/17 11:14 Resp 18 05/30/17 06:00 BP 168/96 H 05/30/17 11:14 Pulse Ox 95 05/30/17 06:00 - Labs Result Diagrams: 05/30/17 09:00 05/30/17 09:00 Labs: Laboratory Results - last 24 hr 05/29/17 05/30/17 05/30/17 21:35 07:30 09:00 WBC 4.4 L RBC 3.70 Hgb 10.3 L Hct 32.2 L MCV 87.0 MCH 27.8 MCHC 32.0 RDW 18.0 H Plt Count 271 MPV 9.7 Gran % 54.4 Lymph % (Auto) 31.7 Lamb % (Auto) 6.6 H Eos % (Auto) 5.0 Baso % (Auto) 2.3 Gran # 2.38 Lymph # 1.4 Lamb # 0.3 Eos # 0.2 Baso # 0.10 Sodium Potassium Chloride Carbon Dioxide Anion Gap BUN Creatinine Est GFR ( Amer) Est GFR (Non-Af Amer) POC Glucose (mg/dL) 113 H 94 Random Glucose Calcium Phosphorus Magnesium Total Bilirubin AST ALT Alkaline Phosphatase Total Protein Albumin Globulin Albumin/Globulin Ratio 05/30/17 05/30/17 09:00 11:55 WBC RBC Hgb Hct MCV MCH MCHC RDW Plt Count MPV Gran % Lymph % (Auto) Lamb % (Auto) Eos % (Auto) Baso % (Auto) Gran # Lymph # Lamb # Eos # Baso # Sodium 142 Potassium 4.0 Chloride 103 Carbon Dioxide 24 Anion Gap 19 BUN 33 H Creatinine 5.1 H Est GFR ( Amer) 14 Est GFR (Non-Af Amer) 12 POC Glucose (mg/dL) 163 H Random Glucose 129 H Calcium 8.6 Phosphorus 5.8 H Magnesium 1.7 Total Bilirubin 0.7 AST 21 ALT 26 Alkaline Phosphatase 94 Total Protein 6.8 Albumin 3.5 Globulin 3.3 Albumin/Globulin Ratio 1.1 Attending/Attestation - Attestation I have personally seen and examined this patient.: Yes I have fully participated in the care of the patient.: Yes I have reviewed all pertinent clinical information: Yes Notes (Text): 05/30/17 12:07 attending note; Patient seen and examined with the resident in ER. Patient is a 56 year old male with a history of ESRD on HD, CAD, CABG, HTN, CO, DM-2, peripheral neuropathy and GI bleed who is being admitted for IV antibiotics treatment for Pseudomonas bacteremia. ESTER negative. Patient recently signed AMA last week. Currently had left IJ temporary hemodialysis catheter. The patient also Missed hemodialysis. case discussed with nephrology in detail. Will get hemodialysis today. Blood culture drawn. Continue IV cefepime.ID evaluation requested. patient has Macias catheter. Continue by mouth Flomax. Upon discharge the patient will follow-up with PMD .
--- NOTE | 2017-05-29 15:03 | RAD ---
HISTORY: cough COMPARISON: 05/16/2017 FINDINGS: LUNGS: No active pulmonary disease. PLEURA: No significant pleural effusion identified, no pneumothorax apparent. CARDIOVASCULAR: Normal. OSSEOUS STRUCTURES: Sternal wires VISUALIZED UPPER ABDOMEN: Normal. OTHER FINDINGS: There is a left internal jugular dialysis catheter in the right atrium IMPRESSION: No active disease.
[2017-05-29] MEDS ORDERED: Darbepoetin Alfa 60 mcg/ml Inj IVP ONE (15:50)
--- NOTE | 2017-05-29 15:50 | CP.PCM.CON ---
History of Present Illness - History of Present Illness History of Present Illness: Initial Nephrology Consultation: Assessment: Stable Pseudomonas sepsis due to permacath infection with b/l pulmonary septic emboli Diabetic chronic Kidney Disease (E11.22) Hypertensive Chronic Kidney Disease (I12.0) End stage renal disease (N18.6) dependence on hemodialysis (Z99.2) (MWF) Anemia (D64.9), Hyperphosphatemia (E83.39), Secondary Hyperparathyroidism (E21.1 ), HTN (I12.0) CAD s/p CABG, esophageal ulceration, gastroparesis non compliant Plan: Will plan for HD today as ordered. continue with Nephrovite 1 tab/day. PRBC as needed for anemia. On BEREKET as aransep 60 mcg weekly Continue with hectorol 1 mcg with dialysis. Last PTH level 463. BP control with meds as ordered. Patient on RAAS anjelica Glycemic control, Dialysis consistent diet Further work up/management as per primary team Dose meds/antibiotics for ESRD status. Avoid fleets enema/magnesium based laxatives. pt started on PPI compliance reinforced repeat blood culture today with HD. ID consult Thanks for allowing me to participate in care of your patient. Will follow patient with you. Please call if any Qs Dr Sancho Garrett Office: [phone] Chief Complaint; missed dialysis Reason for consult; ESRD HPI: Pt is a 56 y/o M with hx of ESRD on hemodialysis (MWF) via permacath, last dialysis last week, chronic anemia, hyperphosphatemia, secondary hyperparathyroidism, Diabetes Mellitus, hypertension, urine retention s/p martinez , recent permacath related infection with psuedomonas and septic embolic but signed out AMA from hospital presented for dialysis he feels overall better now Denies chest pain, palpitation, shortness of breath, leg swelling ROS: Constitutional Symptoms: Denies fever. No chills. No Recent Weight Changes Eyes: denies change in vision, denies watery eyes, denies double vision Ears/Nose/Mouth/Throat: Denies Abnormal Taste. No Bad breath or Bad Taste. Cardiovascular: No chest pain. There is no shortness of breath. No palpitations. Pulmonary: No shortness of breath or cough. Gastrointestinal: denies abdominal pain now No nausea. No vomiting. Denies change in bowel habits. Denies Bleeding Genitourinary: makes urine. No associated pain or blood. has martinez Neurological: Denies headaches. No dizziness. Denies loss of balance. Denies weakness, denies tingling/numbness Dermatological: No Rash or Bruising or ulcers. Psychiatric: Denies Anxiety. No depression. Denies hallucinations. Rheumatological: No joint pain. Denies Joint swelling Endocrine: Denies over tiredness. Denies Fatigue and denies Heat/Cold Intolerance. All other negative. Physical Examination: General Appearance: Comfortable, in no acute respiratory distress, co-operative . Vitals reviewed and noted as below Head; Atraumatic, normocephalic ENT: no ulcers no thrush. Tongue is midline. Oropharynx: no rash or ulcers. EYES: Pupils are equal, round and reactive to light accommodation. Eye muscles and extraocular movement intact. Sclera is anicteric. Neck; supple no lymphadenopathy, no thyromegaly or bruit Lungs: Normal respiratory rate/effort. Breath sounds bilateral equal and clear Heart: Normal rate. s1s2 normal. No rub or gallop. Extremities: no edema. No varicose veins Neurological: Patient is alert, awake and oriented to person, place and time. No focal deficit. Strength bilateral appropriate and equal Skin: Warm and dry. Normal turgor. No rash. Palpitation: Normal elasticity for age Abdomen: Abdomen is soft. Bowel sounds +. There is no abdominal tenderness, no guarding/rigidity or organomegaly Psych: normal insight and normal affect/mood MSK: no joint tenderness or swelling. Digits and nails normal, no deformity. had toe amputations : kidney or bladder not palpable. has martinez Access: left IJ [facility] Labs/imaging reviewed. Past medical history, past surgical history, family history, social history, allergy reviewed and noted as below Family Hx: no hx of CKD. Non contributory Past Patient History - Infectious Disease Hx of Infectious Diseases: None - Tetanus Immunizations Tetanus Immunization: Unknown - Past Medical History & Family History Past Medical History?: Yes - Past Social History Smoking Status: Never Smoked - CARDIAC Hx Cardiac Disorders: Yes (CAD, [place] x 3, CABG x 3) Hx Hypertension: Yes - PULMONARY Hx Respiratory Disorders: Yes Other/Comment: PULMONARY EDEMA - NEUROLOGICAL HX Cerebrovascular Accident: Yes - HEENT Hx HEENT Problems: Yes (CONTACT LENSES) - RENAL Date of Last Dialysis Treatment: 05/22/17 Hx Renal Failure: Yes Other/Comment: Dialysis M-W-F - ENDOCRINE/METABOLIC Hx Diabetes Mellitus Type 2: Yes - HEMATOLOGICAL/ONCOLOGICAL Hx Blood Disorders: No - INTEGUMENTARY Hx Dermatological Problems: Yes Other/Comment: righty lower ext rash, pt stated "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" - MUSCULOSKELETAL/RHEUMATOLOGICAL Hx Musculoskeletal Disorders: No Hx Falls: Yes Other/Comment: generalized weakness - GASTROINTESTINAL Hx Gastrointestinal Disorders: No - GENITOURINARY/GYNECOLOGICAL Hx Urinary Tract Infection: Yes - PSYCHIATRIC Hx Psychophysiologic Disorder: No Hx Depression: No Hx Emotional Abuse: No Hx Physical Abuse: No Hx Substance Use: Yes - SURGICAL HISTORY Hx Amputation: Yes (R toes) Hx Cardiac Catheterization: Yes (09/09) Hx Coronary Stent: Yes Hx Open Heart Surgery: Yes (12-26-12) Other/Comment: temporary dialysis catheter - ANESTHESIA Hx Anesthesia: Yes Hx Anesthesia Reactions: No Hx Malignant Hyperthermia: No Meds Allergies/Adverse Reactions: Allergies Allergy/AdvReac Type Severity Reaction Status Date / Time Seafood Allergy ANAPHYLAXIS Uncoded 05/07/17 10:01 - Medications Medications: Current Medications Aspirin (Ecotrin) 81 mg PO DAILY [facility] Atorvastatin Calcium (Lipitor) 40 mg PO DIN [facility] Docusate Sodium (Colace) 100 mg PO BID [facility] Hydralazine HCl (Apresoline) 25 mg PO TID [facility] Insulin Detemir (Levemir) 12 unit SC HS [facility] Insulin Detemir (Levemir) 12 unit SC HS [facility] Isosorbide Mononitrate (Imdur) 60 mg PO DAILY [facility] Losartan Potassium (Cozaar) 100 mg PO DAILY [facility] Metoprolol Tartrate (Lopressor) 25 mg PO BID [facility] Ondansetron HCl (Zofran Inj) 4 mg IVP Q4H PRN PRN Reason: Nausea/Vomiting Pantoprazole Sodium (Protonix Ec Tab) 40 mg PO DAILY [facility] Polyethylene Glycol (Miralax) 17 gm PO DAILY [facility] Pregabalin (Lyrica) 75 mg PO BID [facility] Vitamin B Complex/Vit C/Folic Acid (Nephro-Eleni) 1 tab PO 0800 [facility] Results - Vital Signs Recent Vital Signs: Last Vital Signs Temp 98.7 F 05/29/17 12:47 Pulse 73 05/29/17 12:47 Resp 18 05/29/17 12:47 BP 157/84 H 05/29/17 12:47 Pulse Ox 96 05/29/17 12:47 - Labs Result Diagrams: 05/29/17 13:05 05/29/17 13:05
[2017-05-29] MEDS ORDERED: Pneumococcal 23-Valent Vaccine IM ONE (18:45)
[2017-05-29] MEDS ORDERED: Insulin Detemir 100 units/ml Vial (Levemir) SC SCH (22:00)
[2017-05-29] MEDS: Doxercalciferol 4 mcg/2 ml Inj IV SCH (22:33)
[2017-05-29] MEDS: Pantoprazole 20 mg EC Tab PO SCH (22:33)
[2017-05-29] MEDS: Insulin Detemir 100 units/ml Vial (Levemir) SC SCH (22:33)
[2017-05-29] MEDS: POLYETHYLENE GLYCOL 3350 17 GM/Dose PACKET PO SCH (22:33)
[2017-05-30] MEDS: Multivitamin Vitamin B Complex (Nephro-Vite) Tab PO SCH (08:21)
--- NOTE | 2017-05-30 09:15 | CP.PCM.PN ---
<Nancy Clemens - Last Filed: 05/30/17 11:17> Subjective - Date & Time of Evaluation Date of Evaluation: 05/30/17 Time of Evaluation: 07:30 - Subjective Subjective: Hospitalist Service Progress Note: Patient seen and examined at bedside. Per nursing, patient refused to complete dialysis yesterday, only completed 2 hours. 2 1/2 liters removed, tolerated well. Currently resting in bed without complaints. Tolerated breakfast. Denies headaches, dizziness, cp, palpitations, sob, urinary symptoms, diarrhea. Objective - Vital Signs/Intake and Output Vital Signs (last 24 hours): Temp Pulse Resp BP Pulse Ox 98.7 F 73 18 157/84 H 96 05/29/17 18:13 05/29/17 18:13 05/29/17 18:13 05/29/17 18:13 05/29/17 12:47 Intake and Output: 05/30/17 05/30/17 06:59 18:59 Intake Total 540 120 Output Total 400 300 Balance 140 -180 - Medications Medications: Current Medications Aspirin (Ecotrin) 81 mg PO DAILY [facility] Last Admin: 05/29/17 22:32 Dose: Not Given Atorvastatin Calcium (Lipitor) 40 mg PO DIN [facility] Last Admin: 05/29/17 18:55 Dose: Not Given Docusate Sodium (Colace) 100 mg PO BID [facility] Last Admin: 05/29/17 18:55 Dose: Not Given Doxercalciferol (Hectorol) 1 mcg IV MWF [facility] Last Admin: 05/29/17 22:33 Dose: Not Given Hydralazine HCl (Apresoline) 25 mg PO TID [facility] Last Admin: 05/29/17 18:55 Dose: Not Given Cefepime HCl (Maxipime 1gm) 1 gm in 100 mls @ 100 mls/hr IVPB Q24H [facility] PRN Reason: Protocol Insulin Detemir (Levemir) 12 unit SC HS [facility] Last Admin: 05/29/17 22:33 Dose: 12 unit Isosorbide Mononitrate (Imdur) 60 mg PO DAILY [facility] Last Admin: 05/29/17 22:33 Dose: Not Given Losartan Potassium (Cozaar) 100 mg PO DAILY [facility] Last Admin: 05/29/17 22:32 Dose: Not Given Metoprolol Tartrate (Lopressor) 25 mg PO BID [facility] Last Admin: 05/29/17 18:55 Dose: Not Given Ondansetron HCl (Zofran Inj) 4 mg IVP Q4H PRN PRN Reason: Nausea/Vomiting Pantoprazole Sodium (Protonix Ec Tab) 40 mg PO DAILY [facility] Last Admin: 05/29/17 22:33 Dose: Not Given Polyethylene Glycol (Miralax) 17 gm PO DAILY [facility] Last Admin: 05/29/17 22:33 Dose: Not Given Pregabalin (Lyrica) 75 mg PO BID [facility] Last Admin: 05/29/17 18:54 Dose: Not Given Vitamin B Complex/Vit C/Folic Acid (Nephro-Eleni) 1 tab PO 0800 [facility] Last Admin: 05/30/17 08:21 Dose: 1 tab - Constitutional Appears: No Acute Distress, Unkempt - Head Exam Head Exam: ATRAUMATIC, NORMAL INSPECTION - Eye Exam Eye Exam: EOMI, Normal appearance - ENT Exam ENT Exam: Mucous Membranes Moist - Neck Exam Neck Exam: Full ROM Additional comments: L IJ temporary dialysis catheter in place - Respiratory Exam Respiratory Exam: Clear to Ausculation Bilateral, NORMAL BREATHING PATTERN. absent: Rales, Rhonchi, Wheezes - Cardiovascular Exam Cardiovascular Exam: REGULAR RHYTHM, +S1, +S2 - GI/Abdominal Exam GI & Abdominal Exam: Soft. absent: Guarding, Rigid, Tenderness - Extremities Exam Extremities Exam: Full ROM Additional comments: R transmetatarsal amputation Moving all extremities freely - Back Exam Back Exam: NORMAL INSPECTION - Neurological Exam Neurological Exam: Alert, Awake, Oriented x3 - Psychiatric Exam Psychiatric exam: Normal Affect, Normal Mood - Skin Skin Exam: Normal Color, Warm Assessment and Plan - Assessment and Plan (Free Text) Assessment: 56 year old male with past medical hx of ESRD on HD MWF, CAD, HTN, [place] x 3, DM, peripheral neuropathy, s/p CABG presents to [facility] after missing dialysis for 1 week. Patient was recently admitted for bacteremia 2/2 line sepsis. Patient signed out against medical advise at that time. Plan: 1. ESRD on HD MWF -Stable, afebrile -Will go for HD tomorrow -Continue Cefepime daily -Follow up blood cx, urine cx -Will need permanent dialysis access at some point -Continue Aranesp, Hectorol, Nephrovite -Nephrology consulted f/u recommendations -ID on consult f/u recommendations -PT eval ordered 2. Hypertension -Continue Cozaar and Hydralazine -Continue Lopressor 3. Hx of CAD, s/p CABG -Contine ASA, Lipitor -Imdur daily 4. Hx of Diabetes Mellitus with gastroparesis -Levemir 12 units -Accuchecks ACHS -Zofran prn nausea -Colace and miralx 5. Peripheral Neuropathy -Continue Lyrica 6. Urinary retention -Macias has been in since 05/15 for retention -Patient was instructed to follow up with urology -Continue to monitor GI/DVT ppx -Protonix -SCDs <Lauren Godwin - Last Filed: 05/31/17 12:24> Objective - Vital Signs/Intake and Output Vital Signs (last 24 hours): Temp Pulse Resp BP Pulse Ox 98.1 F 68 18 133/86 95 05/30/17 06:00 05/30/17 14:28 05/30/17 06:00 05/30/17 14:28 05/30/17 06:00 Intake and Output: 05/30/17 05/30/17 06:59 18:59 Intake Total 540 320 Output Total 400 300 Balance 140 20 - Medications Medications: Current Medications Aspirin (Ecotrin) 81 mg PO DAILY [facility] Last Admin: 05/30/17 09:51 Dose: 81 mg Atorvastatin Calcium (Lipitor) 40 mg PO DIN [facility] Last Admin: 05/29/17 18:55 Dose: Not Given Docusate Sodium (Colace) 100 mg PO BID [facility] Last Admin: 05/30/17 09:53 Dose: 100 mg Doxercalciferol (Hectorol) 1 mcg IV MWF [facility] Last Admin: 05/29/17 22:33 Dose: Not Given Hydralazine HCl (Apresoline) 25 mg PO TID [facility] Last Admin: 05/30/17 14:28 Dose: 25 mg Cefepime HCl (Maxipime 1gm) 1 gm in 100 mls @ 100 mls/hr IVPB Q24H [facility] PRN Reason: Protocol Last Admin: 05/30/17 14:29 Dose: 100 mls/hr Insulin Detemir (Levemir) 12 unit SC HS [facility] Last Admin: 05/29/17 22:33 Dose: 12 unit Isosorbide Mononitrate (Imdur) 60 mg PO DAILY [facility] Last Admin: 05/30/17 09:52 Dose: 60 mg Losartan Potassium (Cozaar) 100 mg PO DAILY [facility] Last Admin: 05/30/17 09:53 Dose: 100 mg Metoprolol Tartrate (Lopressor) 25 mg PO BID [facility] Last Admin: 05/30/17 11:14 Dose: 25 mg Ondansetron HCl (Zofran Inj) 4 mg IVP Q4H PRN PRN Reason: Nausea/Vomiting Pantoprazole Sodium (Protonix Ec Tab) 40 mg PO DAILY [facility] Last Admin: 05/30/17 09:51 Dose: 40 mg Polyethylene Glycol (Miralax) 17 gm PO DAILY [facility] Last Admin: 05/30/17 09:53 Dose: 17 gm Pregabalin (Lyrica) 75 mg PO BID [facility] Last Admin: 05/30/17 09:52 Dose: 75 mg Tamsulosin HCl (Flomax) 0.4 mg PO DAILY [facility] Vitamin B Complex/Vit C/Folic Acid (Nephro-Eleni) 1 tab PO 0800 [facility] Last Admin: 05/30/17 08:21 Dose: 1 tab - Labs Labs: 05/30/17 09:00 05/30/17 09:00 Attending/Attestation - Attestation I have personally seen and examined this patient.: Yes I have fully participated in the care of the patient.: Yes I have reviewed all pertinent clinical information, including history, physical exam and plan: Yes Notes (Text): 05/30/17 16:01 attending note; Patient seen and examined with the resident. Patient is a 56 year old male with a history of ESRD on HD, CAD, CABG, HTN, DE, DM-2, peripheral neuropathy and GI bleed who is being admitted for IV antibiotics treatment for Pseudomonas bacteremia with bilateral septic emboli. ESTER negative. Currently had left IJ hemodialysis catheter. patient had hemodialysis yesterday. Next hemodialysis Scheduled for tomorrow. case discussed with nephrology in detail. Blood culture drawn.follow-up results. Continue IV cefepime.ID evaluation requested. patient has Macias catheter. Continue Flomax. Upon discharge the patient will follow-up with PMD .
[2017-05-30 09:30] LABS: BASO # 0.1 K/mm3 (0.0-2.0); BASO % 2.3 % (0.0-3.0); EOS # 0.2 (0.0-0.7); GRAN # 2.38 (1.4-6.5); GRAN % 54.4 % (50.0-68.0); HEMATOCRIT 32.2 % (42.0-52.0); LYMPH # 1.4 (1.2-3.4); LYMPH % 31.7 % (22.0-35.0); MEAN CORPUSCULAR HEMOGLOBIN 27.8 pg (25.0-35.0); MEAN PLATELET VOLUME 9.7 fl (7.0-11.0); MONO # 0.3 (0.1-0.6); MONO % 6.6 % (1.0-6.0); WHITE BLOOD COUNT 4.4 10^3/ul (4.5-11.0)
[2017-05-30 09:38] LABS: ALB/GLOB RATIO 1.1 (1.1-1.8); BILIRUBIN,TOTAL 0.7 mg/dL (0.2-1.3); CALCIUM 8.6 mg/dL (8.4-10.5); MAGNESIUM 1.7 mg/dL (1.7-2.2); PHOSPHOROUS 5.8 mg/dL (2.5-4.5); TOTAL PROTEIN 6.8 g/dL (5.8-8.3)
--- NOTE | 2017-05-30 09:44 | CARD ---
APPROVED REPORT EKG Measurement Heart [id number] FL 200P-17 [id number] <Conclusion> Normal sinus rhythm Inferior infarct, age undetermined Abnormal ECG
[2017-05-30] MEDS: Pantoprazole 20 mg EC Tab PO SCH (09:51)
[2017-05-30] MEDS: POLYETHYLENE GLYCOL 3350 17 GM/Dose PACKET PO SCH (09:53)
[2017-05-30] MEDS: Cefepime 1gm in NS 100ml 1 GM/100 ML BAG IVPB SCH (14:29)
--- NOTE | 2017-05-30 14:56 | CP.PCM.PN ---
Subjective - Date & Time of Evaluation Date of Evaluation: 05/30/17 Time of Evaluation: 14:54 - Subjective Subjective: Follow up Nephrology Consultation: Assessment: Stable Pseudomonas sepsis due to permacath infection with b/l pulmonary septic emboli Diabetic chronic Kidney Disease (E11.22) Hypertensive Chronic Kidney Disease (I12.0) End stage renal disease (N18.6) dependence on hemodialysis (Z99.2) (MWF) Anemia (D64.9), Hyperphosphatemia (E83.39), Secondary Hyperparathyroidism (E21.1 ), HTN (I12.0) CAD s/p CABG, esophageal ulceration, gastroparesis non compliant Plan: Will plan for HD tomorrow as ordered. continue with Nephrovite 1 tab/day. PRBC as needed for anemia. On BEREKET as aransep 60 mcg weekly Continue with hectorol 1 mcg with dialysis. Last PTH level 463. BP control with meds as ordered. Patient on RAAS anjelica Glycemic control, Dialysis consistent diet Further work up/management as per primary team Dose meds/antibiotics for ESRD status. Avoid fleets enema/magnesium based laxatives. pt started on PPI compliance reinforced repeat blood culture sent with HD. ID consult Thanks for allowing me to participate in care of your patient. Will follow patient with you. Please call if any Qs Dr Sancho Garrett Office: [phone] HPI: Pt is a 56 y/o M with hx of ESRD on hemodialysis (MWF) via permacath, last dialysis last week, chronic anemia, hyperphosphatemia, secondary hyperparathyroidism, Diabetes Mellitus, hypertension, urine retention s/p martinez , recent permacath related infection with psuedomonas and septic embolic but signed out AMA from hospital presented for dialysis ROS: he feels overall better now Denies chest pain, palpitation, shortness of breath, leg swelling he refused HD yesterday after 2 hrs of treatment Physical Examination: General Appearance: Comfortable, in no acute respiratory distress, co-operative . Vitals reviewed and noted as below Lungs: Normal respiratory rate/effort. Breath sounds bilateral equal and clear Heart: Normal rate. s1s2 normal. No rub or gallop. Extremities: no edema. No varicose veins. Rt forefoot amputation Neurological: Patient is alert, awake and oriented to person, place and time. No focal deficit. Strength bilateral appropriate and equal Skin: Warm and dry. Normal turgor. No rash. Palpitation: Normal elasticity for age Abdomen: Abdomen is soft. Bowel sounds +. There is no abdominal tenderness, no guarding/rigidity or organomegaly Psych: normal insight and normal affect/mood MSK: no joint tenderness or swelling. Digits and nails normal, no deformity. had toe amputations : kidney or bladder not palpable. has martinez [facility] Labs/imaging reviewed. Past medical history, past surgical history, family history, social history, allergy reviewed and noted as below Family Hx: no hx of CKD. Non contributory Objective - Vital Signs/Intake and Output Vital Signs (last 24 hours): Temp Pulse Resp BP Pulse Ox 98.1 F 68 18 133/86 95 05/30/17 06:00 05/30/17 14:28 05/30/17 06:00 05/30/17 14:28 05/30/17 06:00 Intake and Output: 05/30/17 05/30/17 06:59 18:59 Intake Total 540 120 Output Total 400 300 Balance 140 -180 - Medications Medications: Current Medications Aspirin (Ecotrin) 81 mg PO DAILY [facility] Last Admin: 05/30/17 09:51 Dose: 81 mg Atorvastatin Calcium (Lipitor) 40 mg PO DIN [facility] Last Admin: 05/29/17 18:55 Dose: Not Given Docusate Sodium (Colace) 100 mg PO BID [facility] Last Admin: 05/30/17 09:53 Dose: 100 mg Doxercalciferol (Hectorol) 1 mcg IV MWF [facility] Last Admin: 05/29/17 22:33 Dose: Not Given Hydralazine HCl (Apresoline) 25 mg PO TID [facility] Last Admin: 05/30/17 14:28 Dose: 25 mg Cefepime HCl (Maxipime 1gm) 1 gm in 100 mls @ 100 mls/hr IVPB Q24H [facility] PRN Reason: Protocol Last Admin: 05/30/17 14:29 Dose: 100 mls/hr Insulin Detemir (Levemir) 12 unit SC HS [facility] Last Admin: 05/29/17 22:33 Dose: 12 unit Isosorbide Mononitrate (Imdur) 60 mg PO DAILY [facility] Last Admin: 05/30/17 09:52 Dose: 60 mg Losartan Potassium (Cozaar) 100 mg PO DAILY [facility] Last Admin: 05/30/17 09:53 Dose: 100 mg Metoprolol Tartrate (Lopressor) 25 mg PO BID [facility] Last Admin: 05/30/17 11:14 Dose: 25 mg Ondansetron HCl (Zofran Inj) 4 mg IVP Q4H PRN PRN Reason: Nausea/Vomiting Pantoprazole Sodium (Protonix Ec Tab) 40 mg PO DAILY [facility] Last Admin: 05/30/17 09:51 Dose: 40 mg Polyethylene Glycol (Miralax) 17 gm PO DAILY [facility] Last Admin: 05/30/17 09:53 Dose: 17 gm Pregabalin (Lyrica) 75 mg PO BID [facility] Last Admin: 05/30/17 09:52 Dose: 75 mg Tamsulosin HCl (Flomax) 0.4 mg PO DAILY [facility] Vitamin B Complex/Vit C/Folic Acid (Nephro-Eleni) 1 tab PO 0800 [facility] Last Admin: 05/30/17 08:21 Dose: 1 tab - Labs Labs: 05/30/17 09:00 05/30/17 09:00
[2017-05-30] MEDS: Insulin Detemir 100 units/ml Vial (Levemir) SC SCH (22:42)
--- NOTE | 2017-05-30 23:55 | CON ---
DATE: 05/30/2017 LOCATION: The patient seen in room 364, bed 2. CHIEF COMPLAINT: Weakness times several days. HISTORY OF PRESENT ILLNESS: This is a 56-year-old male with a history of end-stage renal disease, on hemodialysis on Monday, Monday, Monday with history of coronary artery disease; myocardial infarction; history of coronary artery bypass graft; history of hypertension; history of pulmonary edema and history of dialysis catheter, admitted through the emergency room because he missed two dialysis treatment, was feeling weak and has been scheduled for dialysis. Infectious Disease consultation requested. PAST MEDICAL HISTORY: Significant for end-stage renal disease, on hemodialysis on Monday, Monday and Monday; coronary artery disease; cerebrovascular accident; diabetes mellitus; hypertension; peripheral neuropathy; myocardial infarction; pulmonary edema; Pseudomonas bacteremia and Pseudomonas lung cavity infection; and embolic disease. PAST SURGICAL HISTORY: Significant for right-sided dialysis catheter. The patient has a history of coronary artery bypass graft in 2012. ALLERGIES: THE PATIENT IS ALLERGIC TO SEAFOOD AND MORPHINE. He was seen recently in a hospital with Pseudomonas bacteremia and Pseudomonas lung cavity with septic emboli, with a ESTER that was negative. The patient was on cefepime for a presumed tricuspid valve, Pseudomonas endocarditis, although the ESTER was negative with pulmonary emboli with Pseudomonas in the lung also with embolic disease on imaging. MEDICATIONS AT HOME: Are noted. The patient is currently on cefepime. REVIEW OF SYSTEMS: Reveals the patient has no fevers and no chills. No nausea or vomiting. No chest pain on exam. progress note is reviewed. The patient had signed out against medical advice and now is readmitted to complete his therapy also. PHYSICAL EXAMINATION VITAL SIGNS: Temperature is 98, blood pressure 150/60, respiratory rate of 18, heart rate of 73. HEENT: Unremarkable. NECK: Supple. HEART: Normal S1 and S2. LUNGS: Decreased breath sounds. ABDOMEN: Soft, nontender. No organomegaly, no rebound, no guarding, no masses. LABORATORY DATA: Reveals a white count of 4.4, hemoglobin of 10, platelets of 271. Chemistry reveals a BUN of 33, creatinine of 5.1. IMAGING STUDIES: Chest x-ray is noted. No active lung disease by chest x-ray. ASSESSMENT AND PLAN: A 56-year-old male with sepsis with Pseudomonas bacteremia, lung cavity lesion, septic emboli, also grown Pseudomonas in the lung, probably PermCath infection. No evidence of endocarditis on ESTER, but suspicious for tricuspid valve endocarditis. No intraabdominal infections on CAT scan in a patient with diabetes; hypertension; end-stage renal disease, on hemodialysis; history of cerebrovascular accident; history of coronary artery disease. Continue the cefepime 4 to 6 weeks, needs a repeat CAT scan of the chest, and CBC, SMA-18, sed rate, and C-reactive protein once weekly. Boyd Green MD
[2017-05-31] MEDS: Multivitamin Vitamin B Complex (Nephro-Vite) Tab PO SCH (08:11)
--- NOTE | 2017-05-31 08:40 | CP.PCM.PN ---
<Nancy Clemens - Last Filed: 05/31/17 11:40> Subjective - Date & Time of Evaluation Date of Evaluation: 05/31/17 Time of Evaluation: 08:38 - Subjective Subjective: Hospitalist Service Progress Note: Patient seen and examined at bedside. Per nursing no acute events overnight. Patient is doing well and without complaints at this time. Tolerating diet. Denies headaches, dizziness, fevers, chills, nausea, vomiting, abdominal pain, diarrhea, urinary symptoms Objective - Vital Signs/Intake and Output Vital Signs (last 24 hours): Temp Pulse Resp BP Pulse Ox 98.1 F 70 18 145/91 H 95 05/30/17 06:00 05/30/17 17:58 05/30/17 06:00 05/30/17 17:58 05/30/17 06:00 Intake and Output: 05/31/17 05/31/17 06:59 18:59 Intake Total 540 120 Output Total 500 350 Balance 40 -230 - Medications Medications: Current Medications Aspirin (Ecotrin) 81 mg PO DAILY [facility] Last Admin: 05/30/17 09:51 Dose: 81 mg Atorvastatin Calcium (Lipitor) 40 mg PO DIN [facility] Last Admin: 05/30/17 17:59 Dose: 40 mg Docusate Sodium (Colace) 100 mg PO BID [facility] Last Admin: 05/30/17 17:56 Dose: 100 mg Doxercalciferol (Hectorol) 1 mcg IV MWF [facility] Last Admin: 05/29/17 22:33 Dose: Not Given Hydralazine HCl (Apresoline) 25 mg PO TID [facility] Last Admin: 05/30/17 17:57 Dose: 25 mg Cefepime HCl (Maxipime 1gm) 1 gm in 100 mls @ 100 mls/hr IVPB Q24H [facility] PRN Reason: Protocol Last Admin: 05/30/17 14:29 Dose: 100 mls/hr Insulin Detemir (Levemir) 12 unit SC HS [facility] Last Admin: 05/30/17 22:42 Dose: 12 unit Isosorbide Mononitrate (Imdur) 60 mg PO DAILY [facility] Last Admin: 05/30/17 09:52 Dose: 60 mg Losartan Potassium (Cozaar) 100 mg PO DAILY [facility] Last Admin: 05/30/17 09:53 Dose: 100 mg Metoprolol Tartrate (Lopressor) 25 mg PO BID [facility] Last Admin: 05/30/17 17:58 Dose: 25 mg Ondansetron HCl (Zofran Inj) 4 mg IVP Q4H PRN PRN Reason: Nausea/Vomiting Pantoprazole Sodium (Protonix Ec Tab) 40 mg PO DAILY [facility] Last Admin: 05/30/17 09:51 Dose: 40 mg Polyethylene Glycol (Miralax) 17 gm PO DAILY [facility] Last Admin: 05/30/17 09:53 Dose: 17 gm Pregabalin (Lyrica) 75 mg PO BID [facility] Last Admin: 05/30/17 17:57 Dose: 75 mg Tamsulosin HCl (Flomax) 0.4 mg PO DAILY [facility] Last Admin: 05/30/17 15:30 Dose: 0.4 mg Vitamin B Complex/Vit C/Folic Acid (Nephro-Eleni) 1 tab PO 0800 [facility] Last Admin: 05/31/17 08:11 Dose: 1 tab - Labs Labs: 05/30/17 09:00 05/30/17 09:00 - Constitutional Appears: Non-toxic, No Acute Distress - Head Exam Head Exam: ATRAUMATIC, NORMAL INSPECTION - Eye Exam Eye Exam: EOMI, Normal appearance Pupil Exam: NORMAL ACCOMODATION - ENT Exam ENT Exam: Mucous Membranes Moist - Neck Exam Neck Exam: Full ROM Additional comments: L IJ temporary diaylsis catheter in place - Respiratory Exam Respiratory Exam: Clear to Ausculation Bilateral, NORMAL BREATHING PATTERN. absent: Rales, Rhonchi, Wheezes - Cardiovascular Exam Cardiovascular Exam: REGULAR RHYTHM, +S1, +S2 - GI/Abdominal Exam GI & Abdominal Exam: Soft. absent: Guarding, Rigid, Tenderness - Rectal Exam Rectal Exam: Deferred - Extremities Exam Extremities Exam: Full ROM. absent: Calf Tenderness Additional comments: R transmetatarsal amputation - Back Exam Back Exam: NORMAL INSPECTION - Neurological Exam Neurological Exam: Alert, Awake, Oriented x3 - Psychiatric Exam Psychiatric exam: Normal Affect, Normal Mood - Skin Skin Exam: Normal Color Assessment and Plan - Assessment and Plan (Free Text) Assessment: 56 year old male with past medical hx of ESRD on HD MWF, CAD, HTN, AK x 3, DM, peripheral neuropathy, s/p CABG presents to [facility] after missing dialysis for 1 week. Patient was recently admitted for bacteremia 2/2 line sepsis. Patient signed out against medical advise at that time. Plan: 1. Hx of Sepsis/Bacteremia 2/2 infected Permacath with septic lung emboli -Permacath tip removed on previous admission - tip grew pseudomonas -Patient currently has a temporary L IJ HD catheter -Continue Cefepime daily -Blood cx showing no growth in 24 hours; f/u urine cx -Echo and repeat CT chest ordered -Patient will need permanent access at some point -ID recommending 4-6 weeks of IV antibiotics -Case management referral 2. ESRD on HD MWF -Stable, afebrile -Will go for HD today -Will need permanent dialysis access at some point -Continue Aranesp, Hectorol, Nephrovite -Nephrology consulted f/u recommendations -PT eval ordered 3. Hypertension -Continue Cozaar and Hydralazine -Continue Lopressor -Will monitor 4. Hx of CAD, s/p CABG -Contine ASA, Lipitor -Imdur daily 5. Hx of Diabetes Mellitus with gastroparesis -Levemir 12 units -Accuchecks ACHS -Zofran prn nausea -Colace and miralx 6. Peripheral Neuropathy -Continue Lyrica 7. Urinary retention -Macias has been in since 05/15 for retention -Continue Flomax -Patient was instructed to follow up with urology -Continue to monitor GI/DVT ppx -Protonix -SCDs <Lauren Godwin - Last Filed: 05/31/17 12:31> Objective - Vital Signs/Intake and Output Vital Signs (last 24 hours): Temp Pulse Resp BP Pulse Ox 98.1 F 61 18 189/86 H 95 05/30/17 06:00 05/31/17 09:10 05/30/17 06:00 05/31/17 09:10 05/30/17 06:00 Intake and Output: 05/31/17 05/31/17 06:59 18:59 Intake Total 540 120 Output Total 500 350 Balance 40 -230 - Medications Medications: Current Medications Aspirin (Ecotrin) 81 mg PO DAILY [facility] Last Admin: 05/31/17 09:10 Dose: 81 mg Atorvastatin Calcium (Lipitor) 40 mg PO DIN [facility] Last Admin: 05/30/17 17:59 Dose: 40 mg Docusate Sodium (Colace) 100 mg PO BID [facility] Last Admin: 05/31/17 09:09 Dose: 100 mg Doxercalciferol (Hectorol) 1 mcg IV MWF [facility] Last Admin: 05/29/17 22:33 Dose: Not Given Hydralazine HCl (Apresoline) 25 mg PO TID [facility] Last Admin: 05/31/17 09:09 Dose: 25 mg Cefepime HCl (Maxipime 1gm) 1 gm in 100 mls @ 100 mls/hr IVPB Q24H [facility] PRN Reason: Protocol Last Admin: 05/30/17 14:29 Dose: 100 mls/hr Insulin Detemir (Levemir) 12 unit SC HS [facility] Last Admin: 05/30/17 22:42 Dose: 12 unit Isosorbide Mononitrate (Imdur) 60 mg PO DAILY [facility] Last Admin: 05/31/17 09:10 Dose: 60 mg Losartan Potassium (Cozaar) 100 mg PO DAILY [facility] Last Admin: 05/31/17 09:10 Dose: 100 mg Metoprolol Tartrate (Lopressor) 25 mg PO BID [facility] Last Admin: 05/31/17 09:10 Dose: 25 mg Ondansetron HCl (Zofran Inj) 4 mg IVP Q4H PRN PRN Reason: Nausea/Vomiting Pantoprazole Sodium (Protonix Ec Tab) 40 mg PO DAILY [facility] Last Admin: 05/31/17 09:09 Dose: 40 mg Polyethylene Glycol (Miralax) 17 gm PO DAILY [facility] Last Admin: 05/31/17 09:10 Dose: 17 gm Pregabalin (Lyrica) 75 mg PO BID [facility] Last Admin: 05/31/17 09:09 Dose: 75 mg Tamsulosin HCl (Flomax) 0.4 mg PO DAILY [facility] Last Admin: 05/31/17 09:10 Dose: 0.4 mg Vitamin B Complex/Vit C/Folic Acid (Nephro-Eleni) 1 tab PO 0800 [facility] Last Admin: 05/31/17 08:11 Dose: 1 tab - Labs Labs: 05/30/17 09:00 05/30/17 09:00 Attending/Attestation - Attestation I have personally seen and examined this patient.: Yes I have fully participated in the care of the patient.: Yes I have reviewed all pertinent clinical information, including history, physical exam and plan: Yes Notes (Text): 10/04/17 12:27 attending note; Patient seen and examined with the resident. Patient is a 56 year old male with a history of ESRD on HD, CAD, CABG, HTN, AK, DM-2, peripheral neuropathy and GI bleed who is being admitted for IV antibiotics treatment for Pseudomonas bacteremia with bilateral septic emboli. ESTER negative. Currently had left IJ hemodialysis catheter. hemodialysis is Scheduled for today. case discussed with nephrology in detail. We will place permacath if Blood Culture continues to be negative. Blood culture is negative so far. follow-up results. Continue IV cefepime. ID evaluation requested. echo and ct chest ordered. Needs 4 to 6 weeks of antibiotics. Urinary retention:patient has Macias catheter. Continue Flomax. noncompliance with follow up. Upon discharge the patient will follow-up with PMD .
[2017-05-31] MEDS: Pantoprazole 20 mg EC Tab PO SCH (09:09)
[2017-05-31] MEDS: POLYETHYLENE GLYCOL 3350 17 GM/Dose PACKET PO SCH (09:10)
--- NOTE | 2017-05-31 12:08 | CP.PCM.PN ---
Subjective - Date & Time of Evaluation Date of Evaluation: 05/31/17 Time of Evaluation: 12:06 - Subjective Subjective: Follow up Nephrology Consultation: Assessment: Stable Pseudomonas sepsis due to permacath infection with b/l pulmonary septic emboli Diabetic chronic Kidney Disease (E11.22) Hypertensive Chronic Kidney Disease (I12.0) End stage renal disease (N18.6) dependence on hemodialysis (Z99.2) (MWF) Anemia (D64.9), Hyperphosphatemia (E83.39), Secondary Hyperparathyroidism (E21.1 ), HTN (I12.0) CAD s/p CABG, esophageal ulceration, gastroparesis non compliant Plan: Will plan for HD today as ordered. continue with Nephrovite 1 tab/day. PRBC as needed for anemia. On BEREKET as aransep 60 mcg weekly Continue with hectorol 1 mcg with dialysis. Last PTH level 463. BP control with meds as ordered. Patient on RAAS anjelica Glycemic control, Dialysis consistent diet Further work up/management as per primary team Dose meds/antibiotics for ESRD status. Avoid fleets enema/magnesium based laxatives. pt started on PPI compliance reinforced repeat blood culture sent with HD. ID consult to plan for permacath once blood cx negative for 4-5 days and okay from ID perspective. he will need 4-6 weeks of IV cefepime as per ID Thanks for allowing me to participate in care of your patient. Will follow patient with you. Please call if any Qs Dr Sancho Garrett Office: [phone] HPI: Pt is a 56 y/o M with hx of ESRD on hemodialysis (MWF) via permacath, last dialysis last week, chronic anemia, hyperphosphatemia, secondary hyperparathyroidism, Diabetes Mellitus, hypertension, urine retention s/p martinez , recent permacath related infection with psuedomonas and septic embolic but signed out AMA from hospital presented for dialysis ROS: he feels overall better now Denies chest pain, palpitation, shortness of breath, leg swelling Physical Examination: General Appearance: Comfortable, in no acute respiratory distress, co-operative . Vitals reviewed and noted as below Lungs: Normal respiratory rate/effort. Breath sounds bilateral equal and clear Heart: Normal rate. s1s2 normal. No rub or gallop. Extremities: no edema. No varicose veins. Rt forefoot amputation Neurological: Patient is alert, awake and oriented to person, place and time. No focal deficit. Strength bilateral appropriate and equal Skin: Warm and dry. Normal turgor. No rash. Palpitation: Normal elasticity for age Abdomen: Abdomen is soft. Bowel sounds +. There is no abdominal tenderness, no guarding/rigidity or organomegaly Psych: normal insight and normal affect/mood MSK: no joint tenderness or swelling. Digits and nails normal, no deformity. had toe amputations : kidney or bladder not palpable. has martinez Access: left IJ shiley Labs/imaging reviewed. Past medical history, past surgical history, family history, social history, allergy reviewed and noted as below Family Hx: no hx of CKD. Non contributory Objective - Vital Signs/Intake and Output Vital Signs (last 24 hours): Temp Pulse Resp BP Pulse Ox 98.1 F 61 18 189/86 H 95 05/30/17 06:00 05/31/17 09:10 05/30/17 06:00 05/31/17 09:10 05/30/17 06:00 Intake and Output: 05/31/17 05/31/17 06:59 18:59 Intake Total 540 120 Output Total 500 350 Balance 40 -230 - Medications Medications: Current Medications Aspirin (Ecotrin) 81 mg PO DAILY [facility] Last Admin: 05/31/17 09:10 Dose: 81 mg Atorvastatin Calcium (Lipitor) 40 mg PO DIN [facility] Last Admin: 05/30/17 17:59 Dose: 40 mg Docusate Sodium (Colace) 100 mg PO BID [facility] Last Admin: 05/31/17 09:09 Dose: 100 mg Doxercalciferol (Hectorol) 1 mcg IV MWF [facility] Last Admin: 05/29/17 22:33 Dose: Not Given Hydralazine HCl (Apresoline) 25 mg PO TID [facility] Last Admin: 05/31/17 09:09 Dose: 25 mg Cefepime HCl (Maxipime 1gm) 1 gm in 100 mls @ 100 mls/hr IVPB Q24H [facility] PRN Reason: Protocol Last Admin: 05/30/17 14:29 Dose: 100 mls/hr Insulin Detemir (Levemir) 12 unit SC HS [facility] Last Admin: 05/30/17 22:42 Dose: 12 unit Isosorbide Mononitrate (Imdur) 60 mg PO DAILY [facility] Last Admin: 05/31/17 09:10 Dose: 60 mg Losartan Potassium (Cozaar) 100 mg PO DAILY [facility] Last Admin: 05/31/17 09:10 Dose: 100 mg Metoprolol Tartrate (Lopressor) 25 mg PO BID [facility] Last Admin: 05/31/17 09:10 Dose: 25 mg Ondansetron HCl (Zofran Inj) 4 mg IVP Q4H PRN PRN Reason: Nausea/Vomiting Pantoprazole Sodium (Protonix Ec Tab) 40 mg PO DAILY [facility] Last Admin: 05/31/17 09:09 Dose: 40 mg Polyethylene Glycol (Miralax) 17 gm PO DAILY [facility] Last Admin: 05/31/17 09:10 Dose: 17 gm Pregabalin (Lyrica) 75 mg PO BID [facility] Last Admin: 05/31/17 09:09 Dose: 75 mg Tamsulosin HCl (Flomax) 0.4 mg PO DAILY [facility] Last Admin: 05/31/17 09:10 Dose: 0.4 mg Vitamin B Complex/Vit C/Folic Acid (Nephro-Eleni) 1 tab PO 0800 [facility] Last Admin: 05/31/17 08:11 Dose: 1 tab - Labs Labs: 05/30/17 09:00 05/30/17 09:00
[2017-05-31] MEDS ORDERED: Iohexol 350 MG/100 ML VIAL ONE ×2 (12:19→21:49)
[2017-05-31 14:08] LABS: BASO # 0.1 K/mm3 (0.0-2.0); BASO % 1.8 % (0.0-3.0); EOS # 0.4 (0.0-0.7); EOS % 7.1 % (1.5-5.0); GRAN # 3.15 (1.4-6.5); GRAN % 56.9 % (50.0-68.0); HEMATOCRIT 28.5 % (42.0-52.0); LYMPH # 1.6 (1.2-3.4); LYMPH % 28.6 % (22.0-35.0); MEAN CELL VOLUME 86.6 fl (80.0-105.0); MEAN CORPUSCULAR HEMOGLOBIN 27.7 pg (25.0-35.0); MEAN CORPUSCULAR HGB CONC 31.9 g/dl (31.0-37.0); MEAN PLATELET VOLUME 10.3 fl (7.0-11.0); MONO # 0.3 (0.1-0.6); MONO % 5.6 % (1.0-6.0); RED CELL DISTRIBUTION WIDTH 17.8 % (11.5-14.5); WHITE BLOOD COUNT 5.5 10^3/ul (4.5-11.0)
--- NOTE | 2017-05-31 14:17 | PN ---
DATE: 05/31/2017 SUBJECTIVE: The patient seen earlier this morning in no acute distress, nontoxic. PHYSICAL EXAMINATION: VITAL SIGNS: Temperature is 98, blood pressure is 180/80, respiratory rate 16. HEENT: Unremarkable. NECK: Supple. LUNGS: Have decreased breath sounds. HEART: Normal S1 and S2. ABDOMEN: Soft and nontender. LABORATORY DATA: Laboratory examination reveals a white count of 4.4, hemoglobin of 10, platelets of 271. Chemistries reveals a BUN of 33, creatinine of 5.1. Microbiology reveals the blood cultures are negative. ASSESSMENT AND PLAN: A 56-year-old male with sepsis with Pseudomonas bacteremia, lung cavity lesion, septic emboli, also grown Pseudomonas in the lung, probably PermCath infection. No evidence of endocarditis on ESTER, but suspicious for tricuspid valve endocarditis, but there is embolic disease. We will continue to treat the patient with cefepime 4 to 6 weeks. I have discussed with Dr. Godwin today and will need a repeat CAT scan with the CBC, SMA-18, sed rate, and C-reactive protein. We will follow up closely with you. Boyd Green MD
[2017-05-31 14:19] LABS: ALB/GLOB RATIO 1.1 (1.1-1.8); BILIRUBIN,TOTAL 0.6 mg/dL (0.2-1.3); CALCIUM 8.5 mg/dL (8.4-10.5); MAGNESIUM 1.5 mg/dL (1.7-2.2); PHOSPHOROUS 5.6 mg/dL (2.5-4.5); POTASSIUM 4.6 mmol/L (3.6-5.0); TOTAL PROTEIN 6.2 g/dL (5.8-8.3)
[2017-05-31] MEDS: Cefepime 1gm in NS 100ml 1 GM/100 ML BAG IVPB SCH (14:54)
[2017-05-31] MEDS: Doxercalciferol 4 mcg/2 ml Inj IV SCH ×2 (14:54→15:29)
[2017-05-31 18:57] LABS: PH,URINE 7.5 (4.7-8.0); URINE BILIRUBIN NEGATIVE (NEGATIVE); URINE BLOOD TRACE-INTACT (NEGATIVE); URINE GLUCOSE (UA) 250 mg/dL (NEGATIVE); URINE KETONE NEGATIVE (NEGATIVE); URINE LEUKOCYTE ESTERASE TRACE Leu/uL (NEGATIVE); URINE PROTEIN >=300 mg/dL (<30 mg/dL); URINE UROBILINOGEN 0.2 E.U./dL (<1 E.U./dL)
[2017-05-31 19:01] LABS: URINE APPEARANCE SL CLOUDY (CLEAR); URINE COLOR YELLOW (YELLOW)
[2017-05-31 19:04] LABS: URINE RBC 0 - 2 /hpf (0-2)
[2017-05-31 19:05] LABS: URINE BACTERIA TRACE (NEG)
--- NOTE | 2017-05-31 19:17 | CARD ---
APPROVED REPORT EXAM: Two-dimensional and M-mode echocardiogram with Doppler and color Doppler. INDICATION Infection:Rule out subacute bacterial endocarditis 2D DIMENSIONS Left Atrium (2D)4.8 (1.6-4.0cm)IVSd1.4 (0.7-1.1cm) LVDd6.0 (3.9-5.9cm)PWd1.9 (0.7-1.1cm) LVDs4.4 (2.5-4.0cm)FS (%) 26.7 % LVEF (%)51.2 (>50%) M-Mode DIMENSIONS Aortic Root2.90 (2.2-3.7cm)Aortic Cusp Exc.1.70 (1.5-2.0cm) Aortic Valve AoV Peak Eewhautx676.0cm/Sunny Peak GR.7mmHg Mitral Valve MV E Vwiuhlrc88.4cm/sMV A Rqxnzbdz60.0cm/sE/A ratio1.1 TDI E/Lateral E'0.0E/Medial E'0.0 Tricuspid Valve TR Peak Uypvrbns327gr/sRAP [id number] Peak Gr.7mmHg [id number] LEFT VENTRICLE The left ventricle is normal size. There is mild concentric left ventricular hypertrophy. The left ventricular function is normal. The left ventricular ejection fraction is within the normal range. There is normal LV segmental wall motion. Transmitral Doppler flow pattern is Grade I-abnormal relaxation pattern. RIGHT VENTRICLE The right ventricle is normal size. There is normal right ventricular wall thickness. The right ventricular systolic function is normal. ATRIA The left atrium is mildly dilated. The right atrium size is normal. AORTIC VALVE The aortic valve is mildly thickened. No aortic regurgitation is present. There is no aortic valvular stenosis. MITRAL VALVE The mitral valve is mildly thickened. There is no mitral valve regurgitation noted. There is no mitral valve stenosis. TRICUSPID VALVE The tricuspid valve is normal in structure. GREAT VESSELS The aortic root is normal in size. <Conclusion> The left ventricle is normal size. There is mild concentric left ventricular hypertrophy. The left ventricular function is normal. The left ventricular ejection fraction is within the normal range. There is normal LV segmental wall motion. Transmitral Doppler flow pattern is Grade I-abnormal relaxation pattern. No vegitation seen
[2017-05-31] MEDS: Insulin Detemir 100 units/ml Vial (Levemir) SC SCH (21:50)
--- NOTE | 2017-05-31 23:16 | CT ---
EXAM: CT Angiography Chest With Intravenous Contrast CLINICAL HISTORY: 56 years old, male; Abnormal findings; Other: Follow-up septic emboli; Additional info: Follow up septic emboli TECHNIQUE: Axial computed tomographic angiography images of the chest with intravenous contrast using pulmonary embolism protocol. All CT scans at this facility use one or more dose reduction techniques, viz.: automated exposure control; ma/kV adjustment per patient size (including targeted exams where dose is matched to indication; i.e. head); or iterative reconstruction technique. MIP reconstructed images were created and reviewed. Coronal and sagittal reformatted images were created and reviewed. CONTRAST: 95 mL of omni 350 administered intravenously. COMPARISON: CT - CHEST W/O CONTRAST 05/13/2017 9:27:22 AM FINDINGS: Pulmonary arteries: No pulmonary embolism. Aorta: No thoracic aortic aneurysm. No dissection. Lungs: Interval decrease in both the number and size of the previously identified nodular opacities within the bilateral lung davis. Near complete resolution of the significant cavitation, seen on previous examination. Interval resolution of the bilateral pleural effusions. The bilateral bases are now clear. Pleural spaces: As above. Heart: The heart is enlarged, without significant pericardial effusion. Interval removal of the tunneled right internal jugular central venous catheter. Bones: No acute fracture. Sternal wires remain. Lymph nodes: No pathologically enlarged lymph nodes. IMPRESSION: No pulmonary embolism. Interval improvement of the septic emboli, seen on previous examination with a decrease in both the size and number (as well as cavitation) seen on previous examination. Resolution of the bilateral pleural effusions.
--- NOTE | 2017-06-01 09:03 | CP.PCM.PN ---
<Nancy Clemens - Last Filed: 06/01/17 10:39> Subjective - Date & Time of Evaluation Date of Evaluation: 06/01/17 Time of Evaluation: 09:00 - Subjective Subjective: Hospitalist Progress Note: Patient seen and examined at bedside. Per nursing no acute events overnight. Patient went for CT Chest yesterday. Offers no complaints at this time. Denies headaches, dizziness, cp, palpitations, sob, abdominal pain, urinary symptoms, changes in bowel habits. Objective - Vital Signs/Intake and Output Vital Signs (last 24 hours): Temp Pulse Resp BP Pulse Ox 98.2 F 69 18 142/89 98 06/01/17 06:00 06/01/17 06:00 06/01/17 06:00 06/01/17 06:00 06/01/17 06:00 Intake and Output: 06/01/17 06/01/17 06:59 18:59 Intake Total 780 Output Total 700 Balance 80 - Medications Medications: Current Medications Aspirin (Ecotrin) 81 mg PO DAILY [facility] Last Admin: 05/31/17 09:10 Dose: 81 mg Atorvastatin Calcium (Lipitor) 40 mg PO DIN [facility] Last Admin: 05/31/17 18:40 Dose: 40 mg Diphenhydramine HCl (Benadryl) 25 mg PO HS PRN PRN Reason: Insomnia Last Admin: 05/31/17 21:49 Dose: 25 mg Docusate Sodium (Colace) 100 mg PO BID [facility] Last Admin: 05/31/17 18:40 Dose: 100 mg Doxercalciferol (Hectorol) 1 mcg IV MWF [facility] Last Admin: 05/31/17 15:29 Dose: 1 mcg Hydralazine HCl (Apresoline) 25 mg PO TID [facility] Last Admin: 05/31/17 18:41 Dose: 25 mg Cefepime HCl (Maxipime 1gm) 1 gm in 100 mls @ 100 mls/hr IVPB Q24H [facility] PRN Reason: Protocol Last Admin: 05/31/17 14:54 Dose: Not Given Insulin Detemir (Levemir) 12 unit SC HS [facility] Last Admin: 05/31/17 21:50 Dose: 12 unit Isosorbide Mononitrate (Imdur) 60 mg PO DAILY [facility] Last Admin: 05/31/17 09:10 Dose: 60 mg Losartan Potassium (Cozaar) 100 mg PO DAILY [facility] Last Admin: 05/31/17 09:10 Dose: 100 mg Metoprolol Tartrate (Lopressor) 25 mg PO BID [facility] Last Admin: 05/31/17 18:41 Dose: 25 mg Ondansetron HCl (Zofran Inj) 4 mg IVP Q4H PRN PRN Reason: Nausea/Vomiting Pantoprazole Sodium (Protonix Ec Tab) 40 mg PO DAILY [facility] Last Admin: 05/31/17 09:09 Dose: 40 mg Polyethylene Glycol (Miralax) 17 gm PO DAILY [facility] Last Admin: 05/31/17 09:10 Dose: 17 gm Pregabalin (Lyrica) 75 mg PO BID [facility] Last Admin: 05/31/17 18:41 Dose: 75 mg Tamsulosin HCl (Flomax) 0.4 mg PO DAILY [facility] Last Admin: 05/31/17 09:10 Dose: 0.4 mg Vitamin B Complex/Vit C/Folic Acid (Nephro-Eleni) 1 tab PO 0800 [facility] Last Admin: 05/31/17 08:11 Dose: 1 tab - Labs Labs: 05/31/17 14:00 05/31/17 14:00 - Constitutional Appears: Non-toxic, No Acute Distress - Head Exam Head Exam: ATRAUMATIC, NORMAL INSPECTION - Eye Exam Eye Exam: EOMI, Normal appearance Pupil Exam: NORMAL ACCOMODATION - ENT Exam ENT Exam: Mucous Membranes Moist - Neck Exam Neck Exam: Full ROM Additional comments: L IJ temporary HD catheter in place - Respiratory Exam Respiratory Exam: Clear to Ausculation Bilateral, NORMAL BREATHING PATTERN. absent: Rales, Rhonchi, Wheezes - Cardiovascular Exam Cardiovascular Exam: REGULAR RHYTHM, +S1, +S2 - GI/Abdominal Exam GI & Abdominal Exam: Soft. absent: Guarding, Rigid, Tenderness, Rebound - Rectal Exam Rectal Exam: Deferred - Extremities Exam Extremities Exam: absent: Calf Tenderness, Tenderness Additional comments: R transmetatarsal amputation - Back Exam Back Exam: NORMAL INSPECTION - Neurological Exam Neurological Exam: Alert, Awake, Oriented x3 - Psychiatric Exam Psychiatric exam: Normal Affect, Normal Mood - Skin Skin Exam: Dry, Normal Color, Warm Assessment and Plan - Assessment and Plan (Free Text) Assessment: 56 year old male with past medical hx of ESRD on HD MWF, CAD, HTN, AK x 3, DM, peripheral neuropathy, s/p CABG presents to [facility] after missing dialysis for 1 week. Patient was recently admitted for bacteremia 2/2 line sepsis. Patient signed out against medical advise at that time. Plan: 1. Hx of Sepsis/Bacteremia 2/2 infected Permacath with septic lung emboli -Permacath tip removed on previous admission - tip grew pseudomonas -Patient currently has a temporary L IJ HD catheter -Continue Cefepime daily -Blood cx showing no growth in 48 hours; f/u urine cx -Repeat Echo showing no vegetations -Repeat CT chest showing improvement in septic emboli (see full report) -Patient will need permanent access at some point; possibly Monday if blood cx show no growth after 5-6 days -ID recommending 4-6 weeks of IV antibiotics -Case management referral 2. ESRD on HD MWF -Stable, afebrile -Will go for HD tomorrow -Will need permanent dialysis access at some point -Continue Aranesp, Hectorol, Nephrovite -Nephrology consulted f/u recommendations -PT eval ordered 3. Hypertension -Continue Cozaar and Hydralazine -Continue Lopressor -Will monitor 4. Hx of CAD, s/p CABG -Contine ASA, Lipitor -Imdur daily 5. Hx of Diabetes Mellitus with gastroparesis -Levemir 12 units -Accuchecks ACHS -Zofran prn nausea -Colace and miralx 6. Peripheral Neuropathy -Continue Lyrica 7. Urinary retention -Macias has been in since 05/15 for retention -Continue Flomax -Patient was instructed to follow up with urology -Continue to monitor GI/DVT ppx -Protonix -SCDs <Lauren Godwin - Last Filed: 06/01/17 14:12> Objective - Vital Signs/Intake and Output Vital Signs (last 24 hours): Temp Pulse Resp BP Pulse Ox 98.2 F 69 20 142/89 98 06/01/17 06:00 06/01/17 06:00 06/01/17 06:00 06/01/17 06:00 06/01/17 06:00 Intake and Output: 06/01/17 06/01/17 06:59 18:59 Intake Total 780 Output Total 700 Balance 80 - Medications Medications: Current Medications Aspirin (Ecotrin) 81 mg PO DAILY [facility] Last Admin: 06/01/17 11:45 Dose: 81 mg Atorvastatin Calcium (Lipitor) 40 mg PO DIN [facility] Last Admin: 05/31/17 18:40 Dose: 40 mg Diphenhydramine HCl (Benadryl) 25 mg PO HS PRN PRN Reason: Insomnia Last Admin: 05/31/17 21:49 Dose: 25 mg Docusate Sodium (Colace) 100 mg PO BID [facility] Last Admin: 06/01/17 11:40 Dose: 100 mg Doxercalciferol (Hectorol) 1 mcg IV MWF [facility] Last Admin: 05/31/17 15:29 Dose: 1 mcg Hydralazine HCl (Apresoline) 25 mg PO TID [facility] Last Admin: 06/01/17 11:40 Dose: 25 mg Cefepime HCl (Maxipime 1gm) 1 gm in 100 mls @ 100 mls/hr IVPB Q24H [facility] PRN Reason: Protocol Last Admin: 05/31/17 14:54 Dose: Not Given Insulin Detemir (Levemir) 12 unit SC HS [facility] Last Admin: 05/31/17 21:50 Dose: 12 unit Isosorbide Mononitrate (Imdur) 60 mg PO DAILY [facility] Last Admin: 06/01/17 11:41 Dose: 60 mg Losartan Potassium (Cozaar) 100 mg PO DAILY [facility] Last Admin: 06/01/17 11:40 Dose: 100 mg Metoprolol Tartrate (Lopressor) 25 mg PO BID [facility] Last Admin: 06/01/17 11:43 Dose: 25 mg Ondansetron HCl (Zofran Inj) 4 mg IVP Q4H PRN PRN Reason: Nausea/Vomiting Pantoprazole Sodium (Protonix Ec Tab) 40 mg PO DAILY [facility] Last Admin: 06/01/17 11:40 Dose: 40 mg Polyethylene Glycol (Miralax) 17 gm PO DAILY [facility] Last Admin: 06/01/17 11:40 Dose: 17 gm Pregabalin (Lyrica) 75 mg PO BID [facility] Last Admin: 06/01/17 11:41 Dose: 75 mg Tamsulosin HCl (Flomax) 0.4 mg PO DAILY [facility] Last Admin: 06/01/17 11:41 Dose: 0.4 mg Vitamin B Complex/Vit C/Folic Acid (Nephro-Eleni) 1 tab PO 0800 [facility] Last Admin: 06/01/17 11:40 Dose: 1 tab - Labs Labs: 05/31/17 14:00 05/31/17 14:00 Attending/Attestation - Attestation I have personally seen and examined this patient.: Yes I have fully participated in the care of the patient.: Yes I have reviewed all pertinent clinical information, including history, physical exam and plan: Yes Notes (Text): 06/01/17 14:10 attending note; Patient seen and examined with the resident. Patient is a 56 year old male with a history of ESRD on HD, CAD, CABG, HTN, AK, DM-2, peripheral neuropathy and GI bleed who is being admitted for IV antibiotics treatment for Pseudomonas bacteremia with bilateral septic emboli. ESTER negative. Currently had left IJ hemodialysis catheter. patient had hemodialysis yesterday. next Dialysis tomorrow. we will discontinue dialysis catheter tomorrow after dialysis. case discussed with nephrology in detail. possible tunneled dialysis catheter placement/PICC line placement on Monday. Blood culture is negative so far. Continue IV cefepime. case discussed with ID in detail. echo negative for any vegetations. CT chest showed improving septic emboli. Needs 4 to 6 weeks of antibiotics. Urinary retention:patient has Macias catheter. Continue Flomax. noncompliance with follow up. Upon discharge the patient will follow-up with PMD .
--- NOTE | 2017-06-01 10:25 | CP.PCM.PN ---
Subjective - Date & Time of Evaluation Date of Evaluation: 06/01/17 Time of Evaluation: 10:23 - Subjective Subjective: Follow up Nephrology Consultation: Assessment: Stable Pseudomonas sepsis due to permacath infection with b/l pulmonary septic emboli Diabetic chronic Kidney Disease (E11.22) Hypertensive Chronic Kidney Disease (I12.0) End stage renal disease (N18.6) dependence on hemodialysis (Z99.2) (MWF) Anemia (D64.9), Hyperphosphatemia (E83.39), Secondary Hyperparathyroidism (E21.1 ), HTN (I12.0) CAD s/p CABG, esophageal ulceration, gastroparesis non compliant Plan: Will plan for HD tomorrow as ordered. no acute need today. continue with Nephrovite 1 tab/day. PRBC as needed for anemia. On BEREKET as aransep 60 mcg weekly Continue with hectorol 1 mcg with dialysis. Last PTH level 463. BP control with meds as ordered. Patient on RAAS anjelica Glycemic control, Dialysis consistent diet Further work up/management as per primary team Dose meds/antibiotics for ESRD status. Avoid fleets enema/magnesium based laxatives. repeat blood culture sent with HD neg so far. ID consult appreciated to plan for permacath once blood cx negative for 5 days, hopefully can plan for it on MONDAY and if okay from ID perspective. he will need 4-6 weeks of IV cefepime as per ID d/c ap tomorrow after HD Thanks for allowing me to participate in care of your patient. Will follow patient with you. Please call if any Qs. d/w team Dr Sancho Garrett Office: [phone] HPI: Pt is a 56 y/o M with hx of ESRD on hemodialysis (MWF) via permacath, last dialysis last week, chronic anemia, hyperphosphatemia, secondary hyperparathyroidism, Diabetes Mellitus, hypertension, urine retention s/p martinez , recent permacath related infection with psuedomonas and septic embolic but signed out AMA from hospital presented for dialysis ROS: he feels overall better now Denies chest pain, palpitation, shortness of breath, leg swelling Physical Examination: General Appearance: Comfortable, in no acute respiratory distress, co-operative . Vitals reviewed and noted as below Lungs: Normal respiratory rate/effort. Breath sounds bilateral equal and clear Heart: Normal rate. s1s2 normal. No rub or gallop. Extremities: no edema. No varicose veins. Rt forefoot amputation Neurological: Patient is alert, awake and oriented to person, place and time. No focal deficit. Strength bilateral appropriate and equal Skin: Warm and dry. Normal turgor. No rash. Palpitation: Normal elasticity for age Abdomen: Abdomen is soft. Bowel sounds +. There is no abdominal tenderness, no guarding/rigidity or organomegaly Psych: normal insight and normal affect/mood MSK: no joint tenderness or swelling. Digits and nails normal, no deformity. had toe amputations : kidney or bladder not palpable. has martinez Access: left IJ [facility] Labs/imaging reviewed. Past medical history, past surgical history, family history, social history, allergy reviewed and noted as below Family Hx: no hx of CKD. Non contributory Objective - Vital Signs/Intake and Output Vital Signs (last 24 hours): Temp Pulse Resp BP Pulse Ox 98.2 F 69 20 142/89 98 06/01/17 06:00 06/01/17 06:00 06/01/17 06:00 06/01/17 06:00 06/01/17 06:00 Intake and Output: 06/01/17 06/01/17 06:59 18:59 Intake Total 780 Output Total 700 Balance 80 - Medications Medications: Current Medications Aspirin (Ecotrin) 81 mg PO DAILY [facility] Last Admin: 05/31/17 09:10 Dose: 81 mg Atorvastatin Calcium (Lipitor) 40 mg PO DIN [facility] Last Admin: 05/31/17 18:40 Dose: 40 mg Diphenhydramine HCl (Benadryl) 25 mg PO HS PRN PRN Reason: Insomnia Last Admin: 05/31/17 21:49 Dose: 25 mg Docusate Sodium (Colace) 100 mg PO BID [facility] Last Admin: 05/31/17 18:40 Dose: 100 mg Doxercalciferol (Hectorol) 1 mcg IV MWF [facility] Last Admin: 05/31/17 15:29 Dose: 1 mcg Hydralazine HCl (Apresoline) 25 mg PO TID [facility] Last Admin: 05/31/17 18:41 Dose: 25 mg Cefepime HCl (Maxipime 1gm) 1 gm in 100 mls @ 100 mls/hr IVPB Q24H [facility] PRN Reason: Protocol Last Admin: 05/31/17 14:54 Dose: Not Given Insulin Detemir (Levemir) 12 unit SC HS [facility] Last Admin: 05/31/17 21:50 Dose: 12 unit Isosorbide Mononitrate (Imdur) 60 mg PO DAILY [facility] Last Admin: 05/31/17 09:10 Dose: 60 mg Losartan Potassium (Cozaar) 100 mg PO DAILY [facility] Last Admin: 05/31/17 09:10 Dose: 100 mg Metoprolol Tartrate (Lopressor) 25 mg PO BID [facility] Last Admin: 05/31/17 18:41 Dose: 25 mg Ondansetron HCl (Zofran Inj) 4 mg IVP Q4H PRN PRN Reason: Nausea/Vomiting Pantoprazole Sodium (Protonix Ec Tab) 40 mg PO DAILY [facility] Last Admin: 05/31/17 09:09 Dose: 40 mg Polyethylene Glycol (Miralax) 17 gm PO DAILY [facility] Last Admin: 05/31/17 09:10 Dose: 17 gm Pregabalin (Lyrica) 75 mg PO BID [facility] Last Admin: 05/31/17 18:41 Dose: 75 mg Tamsulosin HCl (Flomax) 0.4 mg PO DAILY [facility] Last Admin: 05/31/17 09:10 Dose: 0.4 mg Vitamin B Complex/Vit C/Folic Acid (Nephro-Eleni) 1 tab PO 0800 [facility] Last Admin: 05/31/17 08:11 Dose: 1 tab - Labs Labs: 05/31/17 14:00 05/31/17 14:00
[2017-06-01] MEDS: Multivitamin Vitamin B Complex (Nephro-Vite) Tab PO SCH (11:40)
[2017-06-01] MEDS: POLYETHYLENE GLYCOL 3350 17 GM/Dose PACKET PO SCH (11:40)
[2017-06-01] MEDS: Pantoprazole 20 mg EC Tab PO SCH (11:40)
[2017-06-01] MEDS: Cefepime 1gm in NS 100ml 1 GM/100 ML BAG IVPB SCH (15:44)
--- NOTE | 2017-06-01 17:23 | PN ---
DATE: 06/01/2017 SUBJECTIVE: The patient is in bed, in no acute distress, nontoxic. PHYSICAL EXAMINATION: VITAL SIGNS: Temperature is 98, blood pressure is 140/80, respiratory rate 20, heart rate of 69. HEENT: Unremarkable. NECK: Supple. LUNGS: Decreased breath sounds. HEART: Normal S1 and S2. ABDOMEN: Soft. LABORATORY DATA: Reveals a white count of 5.5, hemoglobin of 9, platelets of 269. BUN of 42, creatinine of 5.7. Urinalysis is noted. Microbiology reveals the blood cultures are negative. ASSESSMENT AND PLAN: A 56-year-old male with sepsis, Pseudomonas bacteremia, embolic lung cavity lesion that is growing Pseudomonas secondary to Perm-A-Cath with no evidence of endocarditis on transesophageal echocardiography, but suspicious for tricuspid valve endocarditis based clinically because of an embolic disease to the lungs. The patient had a repeat CAT scan, which revealed no pulmonary embolism, interval improvement of the septic emboli and previous examination much improved. Repeat cultures are negative at this point. We will follow with you. Boyd Green MD
[2017-06-01] MEDS: Insulin Detemir 100 units/ml Vial (Levemir) SC SCH (22:29)
[2017-06-02 06:50] LABS: BASO # 0.12 K/mm3 (0.0-2.0); BASO % 2.3 % (0.0-3.0); EOS # 0.3 (0.0-0.7); EOS % 6.5 % (1.5-5.0); GRAN # 2.9 (1.4-6.5); GRAN % 55.6 % (50.0-68.0); HEMATOCRIT 31.8 % (42.0-52.0); LYMPH # 1.5 (1.2-3.4); LYMPH % 28.5 % (22.0-35.0); MEAN CELL VOLUME 88.1 fl (80.0-105.0); MEAN CORPUSCULAR HGB CONC 31.8 g/dl (31.0-37.0); MEAN PLATELET VOLUME 10.6 fl (7.0-11.0); MONO # 0.4 (0.1-0.6); MONO % 7.1 % (1.0-6.0); RED CELL DISTRIBUTION WIDTH 17.7 % (11.5-14.5); WHITE BLOOD COUNT 5.2 10^3/ul (4.5-11.0)
[2017-06-02 07:05] LABS: ALB/GLOB RATIO 1.2 (1.1-1.8); BILIRUBIN,TOTAL 0.6 mg/dL (0.2-1.3); CALCIUM 9.1 mg/dL (8.4-10.5); MAGNESIUM 1.9 mg/dL (1.7-2.2); PHOSPHOROUS 5.3 mg/dL (2.5-4.5); POTASSIUM 4.3 mmol/L (3.6-5.0); TOTAL PROTEIN 6.6 g/dL (5.8-8.3)
--- NOTE | 2017-06-02 09:13 | CP.PCM.PN ---
<Nancy Clemens - Last Filed: 06/02/17 11:22> Subjective - Date & Time of Evaluation Date of Evaluation: 06/02/17 Time of Evaluation: 09:11 - Subjective Subjective: Hospital Service Progress Note: Patient seen and examined at bedside. Per nursing no acute events overnight. For HD today. Offers no complaints at this time. Last BM was monday. Denies headache, dizziness, cp, palpitations, sob, abdominal pain, fevers, chills, urinary symptoms. Objective - Vital Signs/Intake and Output Vital Signs (last 24 hours): Temp Pulse Resp BP Pulse Ox 97.8 F 61 20 135/79 98 06/01/17 17:47 06/01/17 17:47 06/01/17 17:47 06/01/17 17:47 06/01/17 17:47 Intake and Output: 06/02/17 06/02/17 06:59 18:59 Intake Total 120 Output Total 400 Balance -280 - Medications Medications: Current Medications Aspirin (Ecotrin) 81 mg PO DAILY [facility] Last Admin: 06/01/17 11:45 Dose: 81 mg Atorvastatin Calcium (Lipitor) 40 mg PO DIN [facility] Last Admin: 06/01/17 18:14 Dose: 40 mg Diphenhydramine HCl (Benadryl) 25 mg PO HS PRN PRN Reason: Insomnia Last Admin: 05/31/17 21:49 Dose: 25 mg Docusate Sodium (Colace) 100 mg PO BID [facility] Last Admin: 06/01/17 17:45 Dose: 100 mg Doxercalciferol (Hectorol) 1 mcg IV MWF [facility] Last Admin: 05/31/17 15:29 Dose: 1 mcg Hydralazine HCl (Apresoline) 25 mg PO TID [facility] Last Admin: 06/01/17 18:14 Dose: 25 mg Cefepime HCl (Maxipime 1gm) 1 gm in 100 mls @ 100 mls/hr IVPB Q24H [facility] PRN Reason: Protocol Last Admin: 06/01/17 15:44 Dose: 100 mls/hr Insulin Detemir (Levemir) 12 unit SC HS [facility] Last Admin: 06/01/17 22:29 Dose: 12 unit Isosorbide Mononitrate (Imdur) 60 mg PO DAILY [facility] Last Admin: 06/01/17 11:41 Dose: 60 mg Losartan Potassium (Cozaar) 100 mg PO DAILY [facility] Last Admin: 06/01/17 11:40 Dose: 100 mg Metoprolol Tartrate (Lopressor) 25 mg PO BID [facility] Last Admin: 06/01/17 18:14 Dose: 25 mg Ondansetron HCl (Zofran Inj) 4 mg IVP Q4H PRN PRN Reason: Nausea/Vomiting Pantoprazole Sodium (Protonix Ec Tab) 40 mg PO DAILY [facility] Last Admin: 06/01/17 11:40 Dose: 40 mg Polyethylene Glycol (Miralax) 17 gm PO DAILY [facility] Last Admin: 06/01/17 11:40 Dose: 17 gm Pregabalin (Lyrica) 75 mg PO BID [facility] Last Admin: 06/01/17 18:15 Dose: 75 mg Tamsulosin HCl (Flomax) 0.4 mg PO DAILY [facility] Last Admin: 06/01/17 11:41 Dose: 0.4 mg Vitamin B Complex/Vit C/Folic Acid (Nephro-Eleni) 1 tab PO 0800 [facility] Last Admin: 06/01/17 11:40 Dose: 1 tab - Labs Labs: 06/02/17 06:10 06/02/17 06:10 - Constitutional Appears: Well, No Acute Distress - Head Exam Head Exam: ATRAUMATIC, NORMAL INSPECTION - Eye Exam Eye Exam: EOMI, Normal appearance Pupil Exam: NORMAL ACCOMODATION - ENT Exam ENT Exam: Mucous Membranes Moist - Neck Exam Neck Exam: Full ROM Additional comments: L IJ temporary HD catheter - Respiratory Exam Respiratory Exam: Clear to Ausculation Bilateral, NORMAL BREATHING PATTERN. absent: Rales, Rhonchi, Wheezes - Cardiovascular Exam Cardiovascular Exam: REGULAR RHYTHM, +S1, +S2 - GI/Abdominal Exam GI & Abdominal Exam: Soft. absent: Guarding, Rigid, Tenderness, Rebound - Rectal Exam Rectal Exam: Deferred - Exam Additional comments: Macias in draining clear yellow urine - Extremities Exam Extremities Exam: absent: Calf Tenderness Additional comments: R transmetatarsal amputation - Back Exam Back Exam: NORMAL INSPECTION - Neurological Exam Neurological Exam: Alert, Awake, Oriented x3 - Psychiatric Exam Psychiatric exam: Normal Affect, Normal Mood - Skin Skin Exam: Normal Color, Warm Assessment and Plan - Assessment and Plan (Free Text) Assessment: 56 year old male with past medical hx of ESRD on HD MWF, CAD, HTN, KS x 3, DM, peripheral neuropathy, s/p CABG presents to [facility] after missing dialysis for 1 week. Patient was recently admitted for bacteremia 2/2 line sepsis. Patient signed out against medical advise at that time. Plan: 1. Hx of Sepsis/Bacteremia 2/2 infected Permacath with septic lung emboli -Permacath removed on previous admission - tip grew pseudomonas -Patient currently has a temporary L IJ HD catheter, will be removed after HD today -Continue Cefepime daily -Blood cx showing no growth after 3 days -Urine cx showing no growth -Repeat Echo showing no vegetations -Repeat CT chest showing improvement in septic emboli (see full report) -Plan for Permacath possibly Monday if blood cx show no growth after 5-6 days -ID recommending 4-6 weeks of IV antibiotics -Case management referral 2. ESRD on HD MWF -Stable, afebrile -Will go for HD today -Anemic, H/H stable at this time -Continue Aranesp, Hectorol, Nephrovite -Nephrology consulted f/u recommendations -PT eval ordered 3. Hypertension -Continue Cozaar and Hydralazine -Continue Lopressor -Will monitor 4. Hx of CAD, s/p CABG -Contine ASA, Lipitor -Imdur daily 5. Hx of Diabetes Mellitus with gastroparesis -Levemir 12 units -Accuchecks ACHS -Zofran prn nausea -Colace and miralax 6. Peripheral Neuropathy -Continue Lyrica 7. Urinary retention -Macias has been in since 05/15 for retention -Continue Flomax -Will attempt voiding trial -Continue to monitor GI/DVT ppx -Protonix -SCDs <Lauren Godwin - Last Filed: 06/02/17 13:31> Objective - Vital Signs/Intake and Output Vital Signs (last 24 hours): Temp Pulse Resp BP Pulse Ox 97.8 F 61 20 135/79 98 06/01/17 17:47 06/01/17 17:47 06/01/17 17:47 06/01/17 17:47 06/01/17 17:47 Intake and Output: 06/02/17 06/02/17 06:59 18:59 Intake Total 120 Output Total 400 Balance -280 - Medications Medications: Current Medications Aspirin (Ecotrin) 81 mg PO DAILY [facility] Last Admin: 06/02/17 10:50 Dose: 81 mg Atorvastatin Calcium (Lipitor) 40 mg PO DIN [facility] Last Admin: 06/01/17 18:14 Dose: 40 mg Diphenhydramine HCl (Benadryl) 25 mg PO HS PRN PRN Reason: Insomnia Last Admin: 05/31/17 21:49 Dose: 25 mg Docusate Sodium (Colace) 100 mg PO BID [facility] Last Admin: 06/02/17 10:50 Dose: 100 mg Doxercalciferol (Hectorol) 1 mcg IV MWF [facility] Last Admin: 06/02/17 10:57 Dose: Not Given Hydralazine HCl (Apresoline) 25 mg PO TID [facility] Last Admin: 06/02/17 10:50 Dose: 25 mg Cefepime HCl (Maxipime 1gm) 1 gm in 100 mls @ 100 mls/hr IVPB Q24H [facility] PRN Reason: Protocol Last Admin: 06/01/17 15:44 Dose: 100 mls/hr Insulin Detemir (Levemir) 12 unit SC HS [facility] Last Admin: 06/01/17 22:29 Dose: 12 unit Isosorbide Mononitrate (Imdur) 60 mg PO DAILY [facility] Last Admin: 06/02/17 10:50 Dose: 60 mg Losartan Potassium (Cozaar) 100 mg PO DAILY [facility] Last Admin: 06/02/17 10:50 Dose: 100 mg Metoprolol Tartrate (Lopressor) 25 mg PO BID [facility] Last Admin: 06/02/17 10:51 Dose: 25 mg Ondansetron HCl (Zofran Inj) 4 mg IVP Q4H PRN PRN Reason: Nausea/Vomiting Pantoprazole Sodium (Protonix Ec Tab) 40 mg PO DAILY [facility] Last Admin: 06/02/17 10:50 Dose: 40 mg Polyethylene Glycol (Miralax) 17 gm PO BID [facility] Last Admin: 06/02/17 10:51 Dose: Not Given Pregabalin (Lyrica) 75 mg PO BID [facility] Last Admin: 06/02/17 10:50 Dose: 75 mg Tamsulosin HCl (Flomax) 0.4 mg PO DAILY [facility] Last Admin: 06/02/17 10:50 Dose: 0.4 mg Vitamin B Complex/Vit C/Folic Acid (Nephro-Eleni) 1 tab PO 0800 [facility] Last Admin: 06/02/17 10:57 Dose: 1 tab - Labs Labs: 06/02/17 06:10 06/02/17 06:10 Attending/Attestation - Attestation I have personally seen and examined this patient.: Yes I have fully participated in the care of the patient.: Yes I have reviewed all pertinent clinical information, including history, physical exam and plan: Yes Notes (Text): 06/02/17 13:30 attending note; Patient seen and examined with the resident. Patient is a 56 year old male with a history of ESRD on HD, CAD, CABG, HTN, KS, DM-2, peripheral neuropathy and GI bleed who is being admitted for IV antibiotics treatment for Pseudomonas bacteremia with bilateral septic emboli. ESTER negative. Currently had left IJ hemodialysis catheter. Plan for HD today. remove HD catheter after HD today. case discussed with nephrology in detail. possible tunneled dialysis catheter placement/PICC line placement on Monday if cultures negative. Blood culture is negative so far. Continue IV cefepime. case discussed with ID in detail. echo negative for any vegetations. CT chest showed improving septic emboli. Needs 4 to 6 weeks of antibiotics. Urinary retention:patient has Macias catheter. Continue Flomax. voiding trila today. noncompliance with follow up. Upon discharge the patient will follow-up with PMD .
[2017-06-02] MEDS: Pantoprazole 20 mg EC Tab PO SCH (10:50)
[2017-06-02] MEDS: POLYETHYLENE GLYCOL 3350 17 GM/Dose PACKET PO SCH ×2 (10:51→18:44)
[2017-06-02] MEDS: Multivitamin Vitamin B Complex (Nephro-Vite) Tab PO SCH (10:57)
[2017-06-02] MEDS: Doxercalciferol 4 mcg/2 ml Inj IV SCH (10:57)
--- NOTE | 2017-06-02 15:30 | CP.PCM.PN ---
Subjective - Date & Time of Evaluation Date of Evaluation: 06/02/17 Time of Evaluation: 15:29 - Subjective Subjective: Follow up Nephrology Consultation: Assessment: Stable Pseudomonas sepsis due to permacath infection with b/l pulmonary septic emboli Diabetic chronic Kidney Disease (E11.22) Hypertensive Chronic Kidney Disease (I12.0) End stage renal disease (N18.6) dependence on hemodialysis (Z99.2) (MWF) Anemia (D64.9), Hyperphosphatemia (E83.39), Secondary Hyperparathyroidism (E21.1 ), HTN (I12.0) CAD s/p CABG, esophageal ulceration, gastroparesis non compliant Plan: Will plan for HD today as ordered. continue with Nephrovite 1 tab/day. PRBC as needed for anemia. On BEREKET as aransep 60 mcg weekly Continue with hectorol 1 mcg with dialysis. Last PTH level 463. BP control with meds as ordered. Patient on RAAS anjelica Glycemic control, Dialysis consistent diet Further work up/management as per primary team Dose meds/antibiotics for ESRD status. Avoid fleets enema/magnesium based laxatives. repeat blood culture sent with HD neg so far. ID consult appreciated to plan for permacath once blood cx negative for 5 days, hopefully can plan for it on MONDAY and if okay from ID perspective. he will need 4-6 weeks of IV cefepime as per ID d/c ap today after HD Thanks for allowing me to participate in care of your patient. Will follow patient with you. Please call if any Qs. d/w team Dr Sancho Garrett Office: [phone] HPI: Pt is a 56 y/o M with hx of ESRD on hemodialysis (MWF) via permacath, last dialysis last week, chronic anemia, hyperphosphatemia, secondary hyperparathyroidism, Diabetes Mellitus, hypertension, urine retention s/p martinez , recent permacath related infection with psuedomonas and septic embolic but signed out AMA from hospital presented for dialysis ROS: he feels overall better now Denies chest pain, palpitation, shortness of breath, leg swelling Physical Examination: seen during HD General Appearance: Comfortable, in no acute respiratory distress, co-operative . Vitals reviewed and noted as below Lungs: Normal respiratory rate/effort. Breath sounds bilateral equal and clear Heart: Normal rate. s1s2 normal. No rub or gallop. Extremities: no edema. No varicose veins. Rt forefoot amputation Neurological: Patient is alert, awake and oriented to person, place and time. No focal deficit. Strength bilateral appropriate and equal Skin: Warm and dry. Normal turgor. No rash. Palpitation: Normal elasticity for age Abdomen: Abdomen is soft. Bowel sounds +. There is no abdominal tenderness, no guarding/rigidity or organomegaly Psych: normal insight and normal affect/mood MSK: no joint tenderness or swelling. Digits and nails normal, no deformity. had toe amputations : kidney or bladder not palpable. has martinez Access: left IJ [facility] Labs/imaging reviewed. Past medical history, past surgical history, family history, social history, allergy reviewed and noted as below Family Hx: no hx of CKD. Non contributory Objective - Vital Signs/Intake and Output Vital Signs (last 24 hours): Temp Pulse Resp BP Pulse Ox 97.8 F 61 20 135/79 98 06/01/17 17:47 06/01/17 17:47 06/01/17 17:47 06/01/17 17:47 06/01/17 17:47 Intake and Output: 06/02/17 06/02/17 06:59 18:59 Intake Total 120 600 Output Total 400 Balance -280 600 - Medications Medications: Current Medications Aspirin (Ecotrin) 81 mg PO DAILY [facility] Last Admin: 06/02/17 10:50 Dose: 81 mg Atorvastatin Calcium (Lipitor) 40 mg PO DIN [facility] Last Admin: 06/01/17 18:14 Dose: 40 mg Diphenhydramine HCl (Benadryl) 25 mg PO HS PRN PRN Reason: Insomnia Last Admin: 05/31/17 21:49 Dose: 25 mg Docusate Sodium (Colace) 100 mg PO BID [facility] Last Admin: 06/02/17 10:50 Dose: 100 mg Doxercalciferol (Hectorol) 1 mcg IV MWF [facility] Last Admin: 06/02/17 10:57 Dose: Not Given Hydralazine HCl (Apresoline) 25 mg PO TID [facility] Last Admin: 06/02/17 13:31 Dose: Not Given Cefepime HCl (Maxipime 1gm) 1 gm in 100 mls @ 100 mls/hr IVPB Q24H [facility] PRN Reason: Protocol Last Admin: 06/01/17 15:44 Dose: 100 mls/hr Insulin Detemir (Levemir) 12 unit SC HS [facility] Last Admin: 06/01/17 22:29 Dose: 12 unit Isosorbide Mononitrate (Imdur) 60 mg PO DAILY [facility] Last Admin: 06/02/17 10:50 Dose: 60 mg Losartan Potassium (Cozaar) 100 mg PO DAILY [facility] Last Admin: 06/02/17 10:50 Dose: 100 mg Metoprolol Tartrate (Lopressor) 25 mg PO BID [facility] Last Admin: 06/02/17 10:51 Dose: 25 mg Ondansetron HCl (Zofran Inj) 4 mg IVP Q4H PRN PRN Reason: Nausea/Vomiting Pantoprazole Sodium (Protonix Ec Tab) 40 mg PO DAILY [facility] Last Admin: 06/02/17 10:50 Dose: 40 mg Polyethylene Glycol (Miralax) 17 gm PO BID [facility] Last Admin: 06/02/17 10:51 Dose: Not Given Pregabalin (Lyrica) 75 mg PO BID [facility] Last Admin: 06/02/17 10:50 Dose: 75 mg Tamsulosin HCl (Flomax) 0.4 mg PO DAILY [facility] Last Admin: 06/02/17 10:50 Dose: 0.4 mg Vitamin B Complex/Vit C/Folic Acid (Nephro-Eleni) 1 tab PO 0800 [facility] Last Admin: 06/02/17 10:57 Dose: 1 tab - Labs Labs: 06/02/17 06:10 06/02/17 06:10
[2017-06-02] MEDS ORDERED: Doxercalciferol 4 mcg/2 ml Inj IVP ONE (15:42)
[2017-06-02] MEDS ORDERED: Iron Sucrose 100 mg/5 ml Inj IVP ONE (15:42)
[2017-06-02] MEDS: Cefepime 1gm in NS 100ml 1 GM/100 ML BAG IVPB SCH (17:02)
--- NOTE | 2017-06-02 17:43 | CP.PCM.PN ---
Subjective - Date & Time of Evaluation Date of Evaluation: 06/02/17 Time of Evaluation: 10:25 - Subjective Subjective: No fevers, not in distress. Objective - Vital Signs/Intake and Output Vital Signs (last 24 hours): Temp Pulse Resp BP Pulse Ox 97.8 F 61 20 135/79 98 06/01/17 17:47 06/01/17 17:47 06/01/17 17:47 06/01/17 17:47 06/01/17 17:47 Intake and Output: 06/02/17 06/02/17 06:59 18:59 Intake Total 120 Output Total 400 Balance -280 - Medications Medications: Current Medications Aspirin (Ecotrin) 81 mg PO DAILY [facility] Last Admin: 06/01/17 11:45 Dose: 81 mg Atorvastatin Calcium (Lipitor) 40 mg PO DIN [facility] Last Admin: 06/01/17 18:14 Dose: 40 mg Diphenhydramine HCl (Benadryl) 25 mg PO HS PRN PRN Reason: Insomnia Last Admin: 05/31/17 21:49 Dose: 25 mg Docusate Sodium (Colace) 100 mg PO BID [facility] Last Admin: 06/01/17 17:45 Dose: 100 mg Doxercalciferol (Hectorol) 1 mcg IV MWF [facility] Last Admin: 05/31/17 15:29 Dose: 1 mcg Hydralazine HCl (Apresoline) 25 mg PO TID [facility] Last Admin: 06/01/17 18:14 Dose: 25 mg Cefepime HCl (Maxipime 1gm) 1 gm in 100 mls @ 100 mls/hr IVPB Q24H [facility] PRN Reason: Protocol Last Admin: 06/01/17 15:44 Dose: 100 mls/hr Insulin Detemir (Levemir) 12 unit SC HS [facility] Last Admin: 06/01/17 22:29 Dose: 12 unit Isosorbide Mononitrate (Imdur) 60 mg PO DAILY [facility] Last Admin: 06/01/17 11:41 Dose: 60 mg Losartan Potassium (Cozaar) 100 mg PO DAILY [facility] Last Admin: 06/01/17 11:40 Dose: 100 mg Metoprolol Tartrate (Lopressor) 25 mg PO BID [facility] Last Admin: 06/01/17 18:14 Dose: 25 mg Ondansetron HCl (Zofran Inj) 4 mg IVP Q4H PRN PRN Reason: Nausea/Vomiting Pantoprazole Sodium (Protonix Ec Tab) 40 mg PO DAILY [facility] Last Admin: 06/01/17 11:40 Dose: 40 mg Polyethylene Glycol (Miralax) 17 gm PO DAILY [facility] Last Admin: 06/01/17 11:40 Dose: 17 gm Pregabalin (Lyrica) 75 mg PO BID [facility] Last Admin: 06/01/17 18:15 Dose: 75 mg Tamsulosin HCl (Flomax) 0.4 mg PO DAILY [facility] Last Admin: 06/01/17 11:41 Dose: 0.4 mg Vitamin B Complex/Vit C/Folic Acid (Nephro-Eleni) 1 tab PO 0800 [facility] Last Admin: 06/01/17 11:40 Dose: 1 tab - Labs Labs: 06/02/17 06:10 06/02/17 06:10 - Constitutional Appears: Non-toxic, No Acute Distress - Head Exam Head Exam: NORMAL INSPECTION - ENT Exam ENT Exam: Mucous Membranes Moist - Respiratory Exam Respiratory Exam: Decreased Breath Sounds - Cardiovascular Exam Cardiovascular Exam: +S1, +S2 - GI/Abdominal Exam GI & Abdominal Exam: Soft. absent: Tenderness Assessment and Plan - Assessment and Plan (Free Text) Plan: Assessment sepsis due to persistent Pseudomonas bacteremia, with lung cavitary lesions, with septic emboli (also growing Pseudomonas), probably Permacath infection with no evidence of endocarditis on ESTER ( but still suspicious for tricuspid valve endocarditis);S/P removal of Permacath and replacement with temporary dialysis catheter - will still treat as an endovascular infection history of sepsis due to Klebsiella bacteremia likely HD catheter infection S/P removal of tunneled Catheter history of C. diff. associated diarrhea DM HTN ESRD on HD CAD S/P CABG history of CVA history of rhabdomyolysis Plan continue Cefepime; repeat blood cx are negative would recommend 4-6 weeks of antibiotics and treat this as an endovascular infection with weekly ESR, CRP, CBC, CMP will continue to monitor clinically
[2017-06-02] MEDS: Insulin Detemir 100 units/ml Vial (Levemir) SC SCH (22:05)
[2017-06-03] MEDS: Multivitamin Vitamin B Complex (Nephro-Vite) Tab PO SCH (08:39)
[2017-06-03] MEDS: Pantoprazole 20 mg EC Tab PO SCH (09:11)
[2017-06-03] MEDS: POLYETHYLENE GLYCOL 3350 17 GM/Dose PACKET PO SCH ×2 (09:11→17:48)
--- NOTE | 2017-06-03 10:54 | CP.PCM.PN ---
<Arnav Nation - Last Filed: 06/03/17 10:44> Subjective - Date & Time of Evaluation Date of Evaluation: 06/03/17 Time of Evaluation: 10:44 - Subjective Subjective: Pt seen and examined at bedside. Pt doing well overnight with no acute events. Pt underwent dialysis yesterday. Pt with no complaints at this time. Denies CP, SOB, N/V/D, fever, chills. Objective - Vital Signs/Intake and Output Vital Signs (last 24 hours): Temp Pulse Resp BP Pulse Ox 97.8 F 68 20 167/87 H 95 06/03/17 10:19 06/03/17 10:19 06/03/17 10:19 06/03/17 10:19 06/03/17 10:19 Intake and Output: 06/03/17 06/03/17 06:59 18:59 Intake Total 60 Output Total 570 Balance -510 - Medications Medications: Current Medications Aspirin (Ecotrin) 81 mg PO DAILY [facility] Last Admin: 06/03/17 09:10 Dose: 81 mg Atorvastatin Calcium (Lipitor) 40 mg PO DIN [facility] Last Admin: 06/02/17 18:05 Dose: 40 mg Diphenhydramine HCl (Benadryl) 25 mg PO HS PRN PRN Reason: Insomnia Last Admin: 06/02/17 22:07 Dose: 25 mg Docusate Sodium (Colace) 100 mg PO BID [facility] Last Admin: 06/03/17 09:10 Dose: 100 mg Doxercalciferol (Hectorol) 1 mcg IV MWF [facility] Last Admin: 06/02/17 10:57 Dose: Not Given Hydralazine HCl (Apresoline) 25 mg PO TID [facility] Last Admin: 06/03/17 09:09 Dose: 25 mg Cefepime HCl (Maxipime 1gm) 1 gm in 100 mls @ 100 mls/hr IVPB Q24H [facility] PRN Reason: Protocol Last Admin: 06/02/17 17:02 Dose: Not Given Insulin Detemir (Levemir) 12 unit SC HS [facility] Last Admin: 06/02/17 22:05 Dose: 12 unit Isosorbide Mononitrate (Imdur) 60 mg PO DAILY [facility] Last Admin: 06/03/17 09:11 Dose: 60 mg Losartan Potassium (Cozaar) 100 mg PO DAILY [facility] Last Admin: 06/03/17 09:10 Dose: 100 mg Metoprolol Tartrate (Lopressor) 25 mg PO BID [facility] Last Admin: 06/03/17 09:11 Dose: 25 mg Ondansetron HCl (Zofran Inj) 4 mg IVP Q4H PRN PRN Reason: Nausea/Vomiting Pantoprazole Sodium (Protonix Ec Tab) 40 mg PO DAILY [facility] Last Admin: 06/03/17 09:11 Dose: 40 mg Polyethylene Glycol (Miralax) 17 gm PO BID [facility] Last Admin: 06/03/17 09:11 Dose: 17 gm Pregabalin (Lyrica) 75 mg PO BID [facility] Last Admin: 06/03/17 09:11 Dose: 75 mg Tamsulosin HCl (Flomax) 0.4 mg PO DAILY [facility] Last Admin: 06/03/17 09:10 Dose: 0.4 mg Vitamin B Complex/Vit C/Folic Acid (Nephro-Eleni) 1 tab PO 0800 [facility] Last Admin: 06/03/17 08:39 Dose: 1 tab - Labs Labs: 06/02/17 06:10 06/02/17 06:10 - Constitutional Appears: Non-toxic, No Acute Distress - Head Exam Head Exam: ATRAUMATIC, NORMAL INSPECTION, NORMOCEPHALIC - Neck Exam Additional comments: Dialysis catheter in place - Respiratory Exam Respiratory Exam: Clear to Ausculation Bilateral, NORMAL BREATHING PATTERN. absent: Rales, Rhonchi, Wheezes - Cardiovascular Exam Cardiovascular Exam: RRR, +S1, +S2 - GI/Abdominal Exam GI & Abdominal Exam: Soft, Normal Bowel Sounds. absent: Tenderness - Extremities Exam Extremities Exam: Pedal Edema (Trace b/l ) Additional comments: Right foot partial amputation - Neurological Exam Neurological Exam: Alert, Awake, Oriented x3 - Psychiatric Exam Psychiatric exam: Normal Affect, Normal Mood - Skin Skin Exam: Intact, Normal Color, Warm Assessment and Plan - Assessment and Plan (Free Text) Plan: 56 y/o M with PMH of ESRD on HD MWF, CAD, HTN, PA x 3, DM, peripheral neuropathy , s/p CABG presents with bacteremia secondary to infected permacath with septic lung emboli. Patient was recently admitted for bacteremia 2/2 line sepsis. Pt will have temporary dialysis catheter removed today in anticipation for permanent catheter placement on Monday. Will continue Cefepime daily for bacteremia. 1. Hx of Sepsis/Bacteremia 2/2 infected Permacath with septic lung emboli -Patient currently has a temporary L IJ HD catheter, will be removed today -Continue Cefepime daily -Blood and urine cultures negative at this time -Repeat Echo showing no vegetations -Repeat CT chest showing improvement in septic emboli (see full report) -Plan for Permacath possibly Monday -ID recommending 4-6 weeks of IV antibiotics 2. ESRD on HD MWF -Stable, afebrile -Continue Aranesp, Hectorol, Nephrovite -Nephrology consulted f/u recommendations 3. Hypertension -BP stable -Continue Cozaar, Lopressor, and Hydralazine 4. Hx of CAD, s/p CABG -Contine ASA, Lipitor -Imdur daily 5. Hx of Diabetes Mellitus with gastroparesis -Levemir 12 units -Accuchecks ACHS -Zofran prn nausea -Colace and miralax 6. Peripheral Neuropathy -Continue Lyrica 7. Urinary retention -Macias has been in since 05/15 for retention -Continue Flomax -Will attempt voiding trial GI/DVT ppx -Protonix -SCDs Chapis, PGY-2 <Lauren Godwin - Last Filed: 06/03/17 13:55> Objective - Vital Signs/Intake and Output Vital Signs (last 24 hours): Temp Pulse Resp BP Pulse Ox 97.8 F 68 20 167/87 H 95 06/03/17 10:19 06/03/17 10:19 06/03/17 10:19 06/03/17 10:19 06/03/17 10:19 Intake and Output: 06/03/17 06/03/17 06:59 18:59 Intake Total 60 Output Total 570 Balance -510 - Medications Medications: Current Medications Aspirin (Ecotrin) 81 mg PO DAILY [facility] Last Admin: 06/03/17 09:10 Dose: 81 mg Atorvastatin Calcium (Lipitor) 40 mg PO DIN [facility] Last Admin: 06/02/17 18:05 Dose: 40 mg Diphenhydramine HCl (Benadryl) 25 mg PO HS PRN PRN Reason: Insomnia Last Admin: 06/02/17 22:07 Dose: 25 mg Docusate Sodium (Colace) 100 mg PO BID [facility] Last Admin: 06/03/17 09:10 Dose: 100 mg Doxercalciferol (Hectorol) 1 mcg IV MWF [facility] Last Admin: 06/02/17 10:57 Dose: Not Given Hydralazine HCl (Apresoline) 25 mg PO TID [facility] Last Admin: 06/03/17 13:41 Dose: 25 mg Cefepime HCl (Maxipime 1gm) 1 gm in 100 mls @ 100 mls/hr IVPB Q24H [facility] PRN Reason: Protocol Last Admin: 06/03/17 13:39 Dose: 100 mls/hr Insulin Detemir (Levemir) 12 unit SC HS [facility] Last Admin: 06/02/17 22:05 Dose: 12 unit Isosorbide Mononitrate (Imdur) 60 mg PO DAILY [facility] Last Admin: 06/03/17 09:11 Dose: 60 mg Losartan Potassium (Cozaar) 100 mg PO DAILY [facility] Last Admin: 06/03/17 09:10 Dose: 100 mg Metoprolol Tartrate (Lopressor) 25 mg PO BID [facility] Last Admin: 06/03/17 09:11 Dose: 25 mg Ondansetron HCl (Zofran Inj) 4 mg IVP Q4H PRN PRN Reason: Nausea/Vomiting Pantoprazole Sodium (Protonix Ec Tab) 40 mg PO DAILY [facility] Last Admin: 06/03/17 09:11 Dose: 40 mg Polyethylene Glycol (Miralax) 17 gm PO BID [facility] Last Admin: 06/03/17 09:11 Dose: 17 gm Pregabalin (Lyrica) 75 mg PO BID [facility] Last Admin: 06/03/17 09:11 Dose: 75 mg Tamsulosin HCl (Flomax) 0.4 mg PO DAILY [facility] Last Admin: 06/03/17 09:10 Dose: 0.4 mg Vitamin B Complex/Vit C/Folic Acid (Nephro-Eleni) 1 tab PO 0800 [facility] Last Admin: 06/03/17 08:39 Dose: 1 tab - Labs Labs: 06/02/17 06:10 06/02/17 06:10 Attending/Attestation - Attestation I have personally seen and examined this patient.: Yes I have fully participated in the care of the patient.: Yes I have reviewed all pertinent clinical information, including history, physical exam and plan: Yes Notes (Text): 06/03/17 13:54 attending note; Patient seen and examined with the resident. Patient is a 56 year old male with a history of ESRD on HD, CAD, CABG, HTN, PA, DM-2, peripheral neuropathy and GI bleed who is being admitted for IV antibiotics treatment for Pseudomonas bacteremia with bilateral septic emboli. ESTER negative. HD catheter removed today. possible tunneled dialysis catheter placement/PICC line placement on Monday if cultures negative. Blood culture is negative so far. Continue IV cefepime. case discussed with ID in detail. echo negative for any vegetations. CT chest showed improving septic emboli. Needs 4 to 6 weeks of antibiotics. Urinary retention:patient has Macias catheter. Continue Flomax. noncompliance with follow up. Upon discharge the patient will follow-up with PMD .
--- NOTE | 2017-06-03 11:49 | CP.PCM.PN ---
Subjective - Date & Time of Evaluation Date of Evaluation: 06/03/17 Time of Evaluation: 11:46 - Subjective Subjective: Imp: Pseudomonas sepsis due to permacath infection with b/l pulmonary septic emboli Diabetic chronic Kidney Disease (E11.22) Hypertensive Chronic Kidney Disease (I12.0) End stage renal disease (N18.6) dependence on hemodialysis (Z99.2) (MWF) Anemia (D64.9), Hyperphosphatemia (E83.39), Secondary Hyperparathyroidism (E21.1 ), HTN (I12.0) CAD s/p CABG, esophageal ulceration, gastroparesis Plan: Next hd on Monday - team aware of pulling hd cathether continue with Nephrovite 1 tab/day. PRBC as needed for anemia. On BEREKET as aransep 60 mcg weekly Continue with hectorol 1 mcg with dialysis. Last PTH level 463. for bp can add norvasc to plan for permacath as lng as surveillance cx negative on monday S: feels ok no complaints Physical Examination: General Appearance: Comfortable, in no acute respiratory distress, co-operative . Vitals reviewed and noted as below Lungs: Normal respiratory rate/effort. Breath sounds bilateral equal and clear Heart: Normal rate. s1s2 normal. No rub or gallop. Extremities: no edema. No varicose veins. Rt forefoot amputation Neurological: Patient is alert, awake and oriented to person, place and time. No focal deficit. Strength bilateral appropriate and equal Skin: Warm and dry. Normal turgor. No rash. Palpitation: Normal elasticity for age Abdomen: Abdomen is soft. Bowel sounds +. There is no abdominal tenderness, no guarding/rigidity or organomegaly Psych: normal insight and normal affect/mood MSK: no joint tenderness or swelling. Digits and nails normal, no deformity. had toe amputations : kidney or bladder not palpable. has martinez Access: left IJ ap Labs/imaging reviewed. Objective - Vital Signs/Intake and Output Vital Signs (last 24 hours): Temp Pulse Resp BP Pulse Ox 97.8 F 68 20 167/87 H 95 06/03/17 10:19 06/03/17 10:19 06/03/17 10:19 06/03/17 10:19 06/03/17 10:19 Intake and Output: 06/03/17 06/03/17 06:59 18:59 Intake Total 60 Output Total 570 Balance -510 - Medications Medications: Current Medications Aspirin (Ecotrin) 81 mg PO DAILY [facility] Last Admin: 06/03/17 09:10 Dose: 81 mg Atorvastatin Calcium (Lipitor) 40 mg PO DIN [facility] Last Admin: 06/02/17 18:05 Dose: 40 mg Diphenhydramine HCl (Benadryl) 25 mg PO HS PRN PRN Reason: Insomnia Last Admin: 06/02/17 22:07 Dose: 25 mg Docusate Sodium (Colace) 100 mg PO BID [facility] Last Admin: 06/03/17 09:10 Dose: 100 mg Doxercalciferol (Hectorol) 1 mcg IV MWF [facility] Last Admin: 06/02/17 10:57 Dose: Not Given Hydralazine HCl (Apresoline) 25 mg PO TID [facility] Last Admin: 06/03/17 09:09 Dose: 25 mg Cefepime HCl (Maxipime 1gm) 1 gm in 100 mls @ 100 mls/hr IVPB Q24H [facility] PRN Reason: Protocol Last Admin: 06/02/17 17:02 Dose: Not Given Insulin Detemir (Levemir) 12 unit SC HS [facility] Last Admin: 06/02/17 22:05 Dose: 12 unit Isosorbide Mononitrate (Imdur) 60 mg PO DAILY [facility] Last Admin: 06/03/17 09:11 Dose: 60 mg Losartan Potassium (Cozaar) 100 mg PO DAILY [facility] Last Admin: 06/03/17 09:10 Dose: 100 mg Metoprolol Tartrate (Lopressor) 25 mg PO BID [facility] Last Admin: 06/03/17 09:11 Dose: 25 mg Ondansetron HCl (Zofran Inj) 4 mg IVP Q4H PRN PRN Reason: Nausea/Vomiting Pantoprazole Sodium (Protonix Ec Tab) 40 mg PO DAILY [facility] Last Admin: 06/03/17 09:11 Dose: 40 mg Polyethylene Glycol (Miralax) 17 gm PO BID [facility] Last Admin: 06/03/17 09:11 Dose: 17 gm Pregabalin (Lyrica) 75 mg PO BID [facility] Last Admin: 06/03/17 09:11 Dose: 75 mg Tamsulosin HCl (Flomax) 0.4 mg PO DAILY [facility] Last Admin: 06/03/17 09:10 Dose: 0.4 mg Vitamin B Complex/Vit C/Folic Acid (Nephro-Eleni) 1 tab PO 0800 [facility] Last Admin: 06/03/17 08:39 Dose: 1 tab - Labs Labs: 06/02/17 06:10 06/02/17 06:10
[2017-06-03] MEDS: Cefepime 1gm in NS 100ml 1 GM/100 ML BAG IVPB SCH (13:39)
--- NOTE | 2017-06-03 14:37 | CP.PCM.PN ---
Subjective - Date & Time of Evaluation Date of Evaluation: 06/03/17 Time of Evaluation: 11:05 - Subjective Subjective: No fevers, not in distress. Objective - Vital Signs/Intake and Output Vital Signs (last 24 hours): Temp Pulse Resp BP Pulse Ox 97.8 F 61 20 135/79 98 06/01/17 17:47 06/01/17 17:47 06/01/17 17:47 06/01/17 17:47 06/01/17 17:47 Intake and Output: 06/03/17 06/03/17 06:59 18:59 Intake Total 60 Output Total 570 Balance -510 - Medications Medications: Current Medications Aspirin (Ecotrin) 81 mg PO DAILY [facility] Last Admin: 06/02/17 10:50 Dose: 81 mg Atorvastatin Calcium (Lipitor) 40 mg PO DIN [facility] Last Admin: 06/02/17 18:05 Dose: 40 mg Diphenhydramine HCl (Benadryl) 25 mg PO HS PRN PRN Reason: Insomnia Last Admin: 06/02/17 22:07 Dose: 25 mg Docusate Sodium (Colace) 100 mg PO BID [facility] Last Admin: 06/02/17 18:05 Dose: 100 mg Doxercalciferol (Hectorol) 1 mcg IV MWF [facility] Last Admin: 06/02/17 10:57 Dose: Not Given Hydralazine HCl (Apresoline) 25 mg PO TID [facility] Last Admin: 06/02/17 18:04 Dose: 25 mg Cefepime HCl (Maxipime 1gm) 1 gm in 100 mls @ 100 mls/hr IVPB Q24H [facility] PRN Reason: Protocol Last Admin: 06/02/17 17:02 Dose: Not Given Insulin Detemir (Levemir) 12 unit SC HS [facility] Last Admin: 06/02/17 22:05 Dose: 12 unit Isosorbide Mononitrate (Imdur) 60 mg PO DAILY [facility] Last Admin: 06/02/17 10:50 Dose: 60 mg Losartan Potassium (Cozaar) 100 mg PO DAILY [facility] Last Admin: 06/02/17 10:50 Dose: 100 mg Metoprolol Tartrate (Lopressor) 25 mg PO BID [facility] Last Admin: 06/02/17 18:05 Dose: 25 mg Ondansetron HCl (Zofran Inj) 4 mg IVP Q4H PRN PRN Reason: Nausea/Vomiting Pantoprazole Sodium (Protonix Ec Tab) 40 mg PO DAILY [facility] Last Admin: 06/02/17 10:50 Dose: 40 mg Polyethylene Glycol (Miralax) 17 gm PO BID [facility] Last Admin: 06/02/17 18:44 Dose: Not Given Pregabalin (Lyrica) 75 mg PO BID [facility] Last Admin: 06/02/17 18:05 Dose: 75 mg Tamsulosin HCl (Flomax) 0.4 mg PO DAILY [facility] Last Admin: 06/02/17 10:50 Dose: 0.4 mg Vitamin B Complex/Vit C/Folic Acid (Nephro-Eleni) 1 tab PO 0800 [facility] Last Admin: 06/02/17 10:57 Dose: 1 tab - Labs Labs: 06/02/17 06:10 06/02/17 06:10 - Constitutional Appears: Non-toxic - Head Exam Head Exam: NORMAL INSPECTION - Respiratory Exam Respiratory Exam: Decreased Breath Sounds - Cardiovascular Exam Cardiovascular Exam: +S1, +S2 - GI/Abdominal Exam GI & Abdominal Exam: Soft. absent: Tenderness Assessment and Plan - Assessment and Plan (Free Text) Plan: Assessment sepsis due to persistent Pseudomonas bacteremia, with lung cavitary lesions, with septic emboli (also growing Pseudomonas), probably Permacath infection with no evidence of endocarditis on ESTER ( but still suspicious for tricuspid valve endocarditis);S/P removal of Permacath and replacement with temporary dialysis catheter - will still treat as an endovascular infection history of sepsis due to Klebsiella bacteremia likely HD catheter infection S/P removal of tunneled Catheter history of C. diff. associated diarrhea DM HTN ESRD on HD CAD S/P CABG history of CVA history of rhabdomyolysis Plan continue Cefepime; repeat blood cx are negative would recommend 4-6 weeks of antibiotics and treat this as an endovascular infection with weekly ESR, CRP, CBC, CMP will continue to follow clinically
[2017-06-03] MEDS: Insulin Detemir 100 units/ml Vial (Levemir) SC SCH (21:47)
[2017-06-04] MEDS: Multivitamin Vitamin B Complex (Nephro-Vite) Tab PO SCH (09:15)
[2017-06-04] MEDS: Pantoprazole 20 mg EC Tab PO SCH (10:44)
[2017-06-04] MEDS: POLYETHYLENE GLYCOL 3350 17 GM/Dose PACKET PO SCH ×2 (10:46→18:51)
--- NOTE | 2017-06-04 10:48 | CP.PCM.PN ---
<Arnav Nation - Last Filed: 06/04/17 10:41> Subjective - Date & Time of Evaluation Date of Evaluation: 06/04/17 Time of Evaluation: 10:41 - Subjective Subjective: Pt seen and examined at bedside. Pt doing well with no acute complaints at this time. Pt had HD catheter removed yesterday. Denies CP, SOB, N/V/D, fever, chills. Objective - Vital Signs/Intake and Output Vital Signs (last 24 hours): Temp Pulse Resp BP Pulse Ox 98.6 F 67 18 165/84 H 95 06/04/17 08:29 06/04/17 08:29 06/04/17 08:29 06/04/17 08:29 06/04/17 08:29 Intake and Output: 06/04/17 06/04/17 06:59 18:59 Intake Total 240 Output Total 575 Balance -335 - Medications Medications: Current Medications Aspirin (Ecotrin) 81 mg PO DAILY [facility] Last Admin: 06/03/17 09:10 Dose: 81 mg Atorvastatin Calcium (Lipitor) 40 mg PO DIN [facility] Last Admin: 06/03/17 17:48 Dose: 40 mg Diphenhydramine HCl (Benadryl) 25 mg PO HS PRN PRN Reason: Insomnia Last Admin: 06/03/17 21:47 Dose: 25 mg Docusate Sodium (Colace) 100 mg PO BID [facility] Last Admin: 06/03/17 17:47 Dose: 100 mg Doxercalciferol (Hectorol) 1 mcg IV MWF [facility] Last Admin: 06/02/17 10:57 Dose: Not Given Hydralazine HCl (Apresoline) 25 mg PO TID [facility] Last Admin: 06/03/17 17:47 Dose: 25 mg Cefepime HCl (Maxipime 1gm) 1 gm in 100 mls @ 100 mls/hr IVPB Q24H [facility] PRN Reason: Protocol Last Admin: 06/03/17 13:39 Dose: 100 mls/hr Insulin Detemir (Levemir) 12 unit SC HS [facility] Last Admin: 06/03/17 21:47 Dose: 12 unit Isosorbide Mononitrate (Imdur) 60 mg PO DAILY [facility] Last Admin: 06/03/17 09:11 Dose: 60 mg Losartan Potassium (Cozaar) 100 mg PO DAILY [facility] Last Admin: 06/03/17 09:10 Dose: 100 mg Metoprolol Tartrate (Lopressor) 25 mg PO BID [facility] Last Admin: 06/03/17 17:48 Dose: 25 mg Ondansetron HCl (Zofran Inj) 4 mg IVP Q4H PRN PRN Reason: Nausea/Vomiting Pantoprazole Sodium (Protonix Ec Tab) 40 mg PO DAILY [facility] Last Admin: 06/03/17 09:11 Dose: 40 mg Polyethylene Glycol (Miralax) 17 gm PO BID [facility] Last Admin: 06/03/17 17:48 Dose: 17 gm Pregabalin (Lyrica) 75 mg PO BID [facility] Last Admin: 06/03/17 17:48 Dose: 75 mg Tamsulosin HCl (Flomax) 0.4 mg PO DAILY [facility] Last Admin: 06/03/17 09:10 Dose: 0.4 mg Vitamin B Complex/Vit C/Folic Acid (Nephro-Elnei) 1 tab PO 0800 [facility] Last Admin: 06/03/17 08:39 Dose: 1 tab - Labs Labs: 06/02/17 06:10 06/02/17 06:10 - Constitutional Appears: Non-toxic, No Acute Distress - Head Exam Head Exam: ATRAUMATIC, NORMAL INSPECTION, NORMOCEPHALIC - Respiratory Exam Respiratory Exam: Clear to Ausculation Bilateral, NORMAL BREATHING PATTERN. absent: Rales, Rhonchi, Wheezes - Cardiovascular Exam Cardiovascular Exam: RRR, +S1, +S2 - GI/Abdominal Exam GI & Abdominal Exam: Soft, Normal Bowel Sounds. absent: Tenderness - Extremities Exam Extremities Exam: Pedal Edema (Trace b/l). absent: Calf Tenderness Additional comments: Right partial foot amputation - Neurological Exam Neurological Exam: Alert, Awake, Oriented x3 - Psychiatric Exam Psychiatric exam: Normal Affect, Normal Mood - Skin Skin Exam: Intact, Normal Color, Warm Assessment and Plan - Assessment and Plan (Free Text) Plan: 56 y/o M with PMH of ESRD on HD MWF, CAD, HTN, MT x 3, DM, peripheral neuropathy , s/p CABG presents with pseudomonas bacteremia secondary to infected permacath with septic lung emboli. Patient was recently admitted for bacteremia 2/2 line sepsis. Pt will require 4-6 weeks of antibiotics for bacteremia. Pt will need PICC line placed tomorrow. Will continue Cefepime daily for bacteremia. 1. Hx of Sepsis/Bacteremia 2/2 infected Permacath with septic lung emboli -HD catheter removed -Continue Cefepime daily -Blood and urine cultures negative at this time -Repeat Echo showing no vegetations -Repeat CT chest showing improvement in septic emboli (see full report) -Plan for Permacath possibly Monday -ID recommending 4-6 weeks of IV antibiotics, in addition to having weekly CBC, CMP, ESR, and CRP 2. ESRD on HD MWF -Stable, afebrile -Continue Aranesp, Hectorol, Nephrovite -Nephrology consulted f/u recommendations 3. Hypertension -BP stable -Can add norvasc as per Nephro for elevated BP -Continue Cozaar, Lopressor, and Hydralazine 4. Hx of CAD, s/p CABG -Contine ASA, Lipitor -Imdur daily 5. Hx of Diabetes Mellitus with gastroparesis -Levemir 12 units -Accuchecks ACHS -Zofran prn nausea -Colace and miralax 6. Peripheral Neuropathy -Continue Lyrica 7. Urinary retention -Macias has been in since 05/15 for retention -Continue Flomax GI/DVT ppx -Protonix -SCDs Bhagimelda, PGY-2 <Lauren Godwin - Last Filed: 06/04/17 14:16> Objective - Vital Signs/Intake and Output Vital Signs (last 24 hours): Temp Pulse Resp BP Pulse Ox 98.6 F 64 18 165/89 H 95 06/04/17 08:29 06/04/17 10:46 06/04/17 08:29 06/04/17 10:46 06/04/17 08:29 Intake and Output: 06/04/17 06/04/17 06:59 18:59 Intake Total 240 Output Total 575 Balance -335 - Medications Medications: Current Medications Amlodipine Besylate (Norvasc) 5 mg PO DAILY [facility] Aspirin (Ecotrin) 81 mg PO DAILY [facility] Last Admin: 06/04/17 10:45 Dose: 81 mg Atorvastatin Calcium (Lipitor) 40 mg PO DIN [facility] Last Admin: 06/03/17 17:48 Dose: 40 mg Diphenhydramine HCl (Benadryl) 25 mg PO HS PRN PRN Reason: Insomnia Last Admin: 06/03/17 21:47 Dose: 25 mg Docusate Sodium (Colace) 100 mg PO BID [facility] Last Admin: 06/04/17 10:43 Dose: 100 mg Doxercalciferol (Hectorol) 1 mcg IV MWF [facility] Last Admin: 06/02/17 10:57 Dose: Not Given Hydralazine HCl (Apresoline) 25 mg PO TID [facility] Last Admin: 06/04/17 10:45 Dose: 25 mg Cefepime HCl (Maxipime 1gm) 1 gm in 100 mls @ 100 mls/hr IVPB Q24H [facility] PRN Reason: Protocol Last Admin: 06/03/17 13:39 Dose: 100 mls/hr Insulin Detemir (Levemir) 12 unit SC HS [facility] Last Admin: 06/03/17 21:47 Dose: 12 unit Isosorbide Mononitrate (Imdur) 60 mg PO DAILY [facility] Last Admin: 06/04/17 10:45 Dose: 60 mg Losartan Potassium (Cozaar) 100 mg PO DAILY [facility] Last Admin: 06/04/17 10:44 Dose: 100 mg Metoprolol Tartrate (Lopressor) 25 mg PO BID [facility] Last Admin: 06/04/17 10:46 Dose: 25 mg Ondansetron HCl (Zofran Inj) 4 mg IVP Q4H PRN PRN Reason: Nausea/Vomiting Pantoprazole Sodium (Protonix Ec Tab) 40 mg PO DAILY [facility] Last Admin: 06/04/17 10:44 Dose: 40 mg Polyethylene Glycol (Miralax) 17 gm PO BID [facility] Last Admin: 06/04/17 10:46 Dose: 17 gm Pregabalin (Lyrica) 75 mg PO BID [facility] Last Admin: 06/04/17 10:50 Dose: 75 mg Tamsulosin HCl (Flomax) 0.4 mg PO DAILY [facility] Last Admin: 06/04/17 10:44 Dose: 0.4 mg Vitamin B Complex/Vit C/Folic Acid (Nephro-Eleni) 1 tab PO 0800 [facility] Last Admin: 06/04/17 09:15 Dose: 1 tab - Labs Labs: 06/02/17 06:10 06/02/17 06:10 Attending/Attestation - Attestation I have personally seen and examined this patient.: Yes I have fully participated in the care of the patient.: Yes I have reviewed all pertinent clinical information, including history, physical exam and plan: Yes Notes (Text): 06/04/17 14:15 attending note; Patient seen and examined with the resident. Patient is a 56 year old male with a history of ESRD on HD, CAD, CABG, HTN, MT, DM-2, peripheral neuropathy and GI bleed who is being admitted for IV antibiotics treatment for Pseudomonas bacteremia with bilateral septic emboli. ESTER negative. HD catheter removed yesterday. possible tunneled dialysis catheter placement/PICC line placement tomorrow if cultures negative. Blood culture is negative so far. Continue IV cefepime. case discussed with ID in detail. echo negative for any vegetations. CT chest showed improving septic emboli. Needs 4 to 6 weeks of antibiotics. Urinary retention:patient has Macias catheter. Continue Flomax. noncompliance with follow up. we discussed with porter sample case for outpatient anti-biotics arrangement. Upon discharge the patient will follow-up with PMD .
--- NOTE | 2017-06-04 12:08 | CP.PCM.PN ---
Subjective - Date & Time of Evaluation Date of Evaluation: 06/04/17 Time of Evaluation: 12:06 - Subjective Subjective: s:seen and examined cathether removed Physical Examination: General Appearance: Comfortable, in no acute respiratory distress, co-operative . Vitals reviewed and noted as below Lungs: Normal respiratory rate/effort. Breath sounds bilateral equal and clear Heart: Normal rate. s1s2 normal. No rub or gallop. Extremities: no edema. No varicose veins. Rt forefoot amputation Neurological: Patient is alert, awake and oriented to person, place and time. No focal deficit. Strength bilateral appropriate and equal Skin: Warm and dry. Normal turgor. No rash. Palpitation: Normal elasticity for age Abdomen: Abdomen is soft. Bowel sounds +. There is no abdominal tenderness, no guarding/rigidity or organomegaly Psych: normal insight and normal affect/mood MSK: no joint tenderness or swelling. Digits and nails normal, no deformity. had toe amputations : kidney or bladder not palpable. has martinez Access: none Labs/imaging reviewed. IMP: Pseudomonas sepsis due to permacath infection with b/l pulmonary septic emboli Diabetic chronic Kidney Disease (E11.22) Hypertensive Chronic Kidney Disease (I12.0) End stage renal disease (N18.6) dependence on hemodialysis (Z99.2) (MWF) Anemia (D64.9), Hyperphosphatemia (E83.39), Secondary Hyperparathyroidism (E21.1 ), HTN (I12.0) CAD s/p CABG, esophageal ulceration, gastroparesis Plan: HD tomorrow after permcath placement by IR continue with Nephrovite 1 tab/day. On BEREKET as aransep 60 mcg weekly Continue with hectorol 1 mcg with dialysis. Last PTH level 463. will add norvasc for bp abx per ID dose for ESRD recc get vasculr involved and vein mapping and set up outpt surgery for AVF/AVG given frequent infections Objective - Vital Signs/Intake and Output Vital Signs (last 24 hours): Temp Pulse Resp BP Pulse Ox 98.6 F 64 18 165/89 H 95 06/04/17 08:29 06/04/17 10:46 06/04/17 08:29 06/04/17 10:46 06/04/17 08:29 Intake and Output: 06/04/17 06/04/17 06:59 18:59 Intake Total 240 Output Total 575 Balance -335 - Medications Medications: Current Medications Aspirin (Ecotrin) 81 mg PO DAILY [facility] Last Admin: 06/04/17 10:45 Dose: 81 mg Atorvastatin Calcium (Lipitor) 40 mg PO DIN [facility] Last Admin: 06/03/17 17:48 Dose: 40 mg Diphenhydramine HCl (Benadryl) 25 mg PO HS PRN PRN Reason: Insomnia Last Admin: 06/03/17 21:47 Dose: 25 mg Docusate Sodium (Colace) 100 mg PO BID [facility] Last Admin: 06/04/17 10:43 Dose: 100 mg Doxercalciferol (Hectorol) 1 mcg IV MWF [facility] Last Admin: 06/02/17 10:57 Dose: Not Given Hydralazine HCl (Apresoline) 25 mg PO TID [facility] Last Admin: 06/04/17 10:45 Dose: 25 mg Cefepime HCl (Maxipime 1gm) 1 gm in 100 mls @ 100 mls/hr IVPB Q24H [facility] PRN Reason: Protocol Last Admin: 06/03/17 13:39 Dose: 100 mls/hr Insulin Detemir (Levemir) 12 unit SC HS [facility] Last Admin: 06/03/17 21:47 Dose: 12 unit Isosorbide Mononitrate (Imdur) 60 mg PO DAILY [facility] Last Admin: 06/04/17 10:45 Dose: 60 mg Losartan Potassium (Cozaar) 100 mg PO DAILY [facility] Last Admin: 06/04/17 10:44 Dose: 100 mg Metoprolol Tartrate (Lopressor) 25 mg PO BID [facility] Last Admin: 06/04/17 10:46 Dose: 25 mg Ondansetron HCl (Zofran Inj) 4 mg IVP Q4H PRN PRN Reason: Nausea/Vomiting Pantoprazole Sodium (Protonix Ec Tab) 40 mg PO DAILY [facility] Last Admin: 06/04/17 10:44 Dose: 40 mg Polyethylene Glycol (Miralax) 17 gm PO BID [facility] Last Admin: 06/04/17 10:46 Dose: 17 gm Pregabalin (Lyrica) 75 mg PO BID [facility] Last Admin: 06/04/17 10:50 Dose: 75 mg Tamsulosin HCl (Flomax) 0.4 mg PO DAILY [facility] Last Admin: 06/04/17 10:44 Dose: 0.4 mg Vitamin B Complex/Vit C/Folic Acid (Nephro-Eleni) 1 tab PO 0800 [facility] Last Admin: 06/04/17 09:15 Dose: 1 tab - Labs Labs: 06/02/17 06:10 06/02/17 06:10
[2017-06-04] MEDS: Cefepime 1gm in NS 100ml 1 GM/100 ML BAG IVPB SCH (15:10)
--- NOTE | 2017-06-04 17:36 | CP.PCM.PN ---
Subjective - Date & Time of Evaluation Date of Evaluation: 06/04/17 Time of Evaluation: 10:45 - Subjective Subjective: No fevers overnight. Objective - Vital Signs/Intake and Output Vital Signs (last 24 hours): Temp Pulse Resp BP Pulse Ox 98.6 F 67 18 165/84 H 95 06/04/17 08:29 06/04/17 08:29 06/04/17 08:29 06/04/17 08:29 06/04/17 08:29 Intake and Output: 06/04/17 06/04/17 06:59 18:59 Intake Total 240 Output Total 575 Balance -335 - Medications Medications: Current Medications Aspirin (Ecotrin) 81 mg PO DAILY [facility] Last Admin: 06/03/17 09:10 Dose: 81 mg Atorvastatin Calcium (Lipitor) 40 mg PO DIN [facility] Last Admin: 06/03/17 17:48 Dose: 40 mg Diphenhydramine HCl (Benadryl) 25 mg PO HS PRN PRN Reason: Insomnia Last Admin: 06/03/17 21:47 Dose: 25 mg Docusate Sodium (Colace) 100 mg PO BID [facility] Last Admin: 06/03/17 17:47 Dose: 100 mg Doxercalciferol (Hectorol) 1 mcg IV MWF [facility] Last Admin: 06/02/17 10:57 Dose: Not Given Hydralazine HCl (Apresoline) 25 mg PO TID [facility] Last Admin: 06/03/17 17:47 Dose: 25 mg Cefepime HCl (Maxipime 1gm) 1 gm in 100 mls @ 100 mls/hr IVPB Q24H [facility] PRN Reason: Protocol Last Admin: 06/03/17 13:39 Dose: 100 mls/hr Insulin Detemir (Levemir) 12 unit SC HS [facility] Last Admin: 06/03/17 21:47 Dose: 12 unit Isosorbide Mononitrate (Imdur) 60 mg PO DAILY [facility] Last Admin: 06/03/17 09:11 Dose: 60 mg Losartan Potassium (Cozaar) 100 mg PO DAILY [facility] Last Admin: 06/03/17 09:10 Dose: 100 mg Metoprolol Tartrate (Lopressor) 25 mg PO BID [facility] Last Admin: 06/03/17 17:48 Dose: 25 mg Ondansetron HCl (Zofran Inj) 4 mg IVP Q4H PRN PRN Reason: Nausea/Vomiting Pantoprazole Sodium (Protonix Ec Tab) 40 mg PO DAILY [facility] Last Admin: 06/03/17 09:11 Dose: 40 mg Polyethylene Glycol (Miralax) 17 gm PO BID [facility] Last Admin: 06/03/17 17:48 Dose: 17 gm Pregabalin (Lyrica) 75 mg PO BID [facility] Last Admin: 06/03/17 17:48 Dose: 75 mg Tamsulosin HCl (Flomax) 0.4 mg PO DAILY [facility] Last Admin: 06/03/17 09:10 Dose: 0.4 mg Vitamin B Complex/Vit C/Folic Acid (Nephro-Eleni) 1 tab PO 0800 [facility] Last Admin: 06/03/17 08:39 Dose: 1 tab - Labs Labs: 06/02/17 06:10 06/02/17 06:10 - Constitutional Appears: Non-toxic, No Acute Distress - Head Exam Head Exam: NORMAL INSPECTION - ENT Exam ENT Exam: Mucous Membranes Moist - Neck Exam Neck Exam: absent: Lymphadenopathy, Meningismus - Respiratory Exam Respiratory Exam: Decreased Breath Sounds - Cardiovascular Exam Cardiovascular Exam: +S1, +S2 - GI/Abdominal Exam GI & Abdominal Exam: Soft. absent: Tenderness Assessment and Plan - Assessment and Plan (Free Text) Plan: Assessment sepsis due to persistent Pseudomonas bacteremia, with lung cavitary lesions, with septic emboli (also growing Pseudomonas), probably Permacath infection with no evidence of endocarditis on ESTER ( but still suspicious for tricuspid valve endocarditis);S/P removal of Permacath and replacement with temporary dialysis catheter - will still treat as an endovascular infection history of sepsis due to Klebsiella bacteremia likely HD catheter infection S/P removal of tunneled Catheter history of C. diff. associated diarrhea DM HTN ESRD on HD CAD S/P CABG history of CVA history of rhabdomyolysis Plan continue Cefepime; repeat blood cx are negative would recommend 4-6 weeks of antibiotics and treat this as an endovascular infection with weekly ESR, CRP, CBC, CMP will continue to monitor clinically
[2017-06-04] MEDS: Insulin Detemir 100 units/ml Vial (Levemir) SC SCH (21:27)
[2017-06-05 07:09] LABS: HEMATOCRIT 30.8 % (42.0-52.0); MEAN CORPUSCULAR HEMOGLOBIN 27.4 pg (25.0-35.0); MEAN CORPUSCULAR HGB CONC 31.8 g/dl (31.0-37.0); MEAN PLATELET VOLUME 11.3 fl (7.0-11.0); RED CELL DISTRIBUTION WIDTH 16.6 % (11.5-14.5)
[2017-06-05 07:33] LABS: ALB/GLOB RATIO 1.1 (1.1-1.8); BILIRUBIN,TOTAL 0.4 mg/dL (0.2-1.3); CALCIUM 8.6 mg/dL (8.4-10.5); POTASSIUM 4.6 mmol/L (3.6-5.0); TOTAL PROTEIN 6.4 g/dL (5.8-8.3)
--- NOTE | 2017-06-05 10:08 | CP.PCM.PN ---
Subjective - Date & Time of Evaluation Date of Evaluation: 06/05/17 Time of Evaluation: 09:58 - Subjective Subjective: seen and examined no complaints this morning Physical Examination: General Appearance: Comfortable, in no acute respiratory distress, co-operative . Vitals reviewed and noted as below Lungs: Normal respiratory rate/effort. Breath sounds bilateral equal and clear Heart: Normal rate. s1s2 normal. No rub or gallop. Extremities: no edema. No varicose veins. Rt forefoot amputation Neurological: Patient is alert, awake and oriented to person, place and time. No focal deficit. Strength bilateral appropriate and equal Skin: Warm and dry. Normal turgor. No rash. Palpitation: Normal elasticity for age Abdomen: Abdomen is soft. Bowel sounds +. There is no abdominal tenderness, no guarding/rigidity or organomegaly Psych: normal insight and normal affect/mood MSK: no joint tenderness or swelling. : kidney or bladder not palpableAccess: none Labs/imaging reviewed. IMP: Pseudomonas sepsis due to permacath infection with b/l pulmonary septic emboli Diabetic chronic Kidney Disease (E11.22) Hypertensive Chronic Kidney Disease (I12.0) End stage renal disease (N18.6) dependence on hemodialysis (Z99.2) (MWF) Anemia (D64.9), Hyperphosphatemia (E83.39), Secondary Hyperparathyroidism (E21.1 ), HTN (I12.0) CAD s/p CABG, esophageal ulceration, gastroparesis Plan: HD after permcath placement by IR, asked rn to confirm schedule w/ IR continue with Nephrovite 1 tab/day. On BEREKET as aransep 60 mcg weekly Continue with hectorol 1 mcg with dialysis norvasc added for bp will start renvela abx per ID dose for ESRD Objective - Vital Signs/Intake and Output Vital Signs (last 24 hours): Temp Pulse Resp BP Pulse Ox 97.7 F 61 18 184/80 H 95 06/05/17 07:37 06/05/17 07:37 06/05/17 07:37 06/05/17 07:37 06/05/17 07:37 Intake and Output: 06/05/17 06/05/17 06:59 18:59 Intake Total 240 Output Total 1150 Balance -910 - Medications Medications: Current Medications Acetaminophen (Tylenol 325mg Tab) 650 mg PO Q6H PRN PRN Reason: Pain, moderate (4-7) Last Admin: 06/05/17 04:47 Dose: 650 mg Amlodipine Besylate (Norvasc) 5 mg PO DAILY [facility] Last Admin: 06/04/17 15:14 Dose: 5 mg Aspirin (Ecotrin) 81 mg PO DAILY [facility] Last Admin: 06/04/17 10:45 Dose: 81 mg Atorvastatin Calcium (Lipitor) 40 mg PO DIN [facility] Last Admin: 06/04/17 18:51 Dose: 40 mg Diphenhydramine HCl (Benadryl) 25 mg PO HS PRN PRN Reason: Insomnia Last Admin: 06/04/17 21:27 Dose: 25 mg Docusate Sodium (Colace) 100 mg PO BID [facility] Last Admin: 06/04/17 18:45 Dose: 100 mg Doxercalciferol (Hectorol) 1 mcg IV MWF [facility] Last Admin: 06/02/17 10:57 Dose: Not Given Hydralazine HCl (Apresoline) 25 mg PO TID [facility] Last Admin: 06/04/17 18:45 Dose: 25 mg Cefepime HCl (Maxipime 1gm) 1 gm in 100 mls @ 100 mls/hr IVPB Q24H [facility] PRN Reason: Protocol Last Admin: 06/04/17 15:10 Dose: 100 mls/hr Insulin Detemir (Levemir) 12 unit SC HS [facility] Last Admin: 06/04/17 21:27 Dose: 12 unit Isosorbide Mononitrate (Imdur) 60 mg PO DAILY [facility] Last Admin: 06/04/17 10:45 Dose: 60 mg Losartan Potassium (Cozaar) 100 mg PO DAILY [facility] Last Admin: 06/04/17 10:44 Dose: 100 mg Metoprolol Tartrate (Lopressor) 25 mg PO BID [facility] Last Admin: 06/04/17 18:51 Dose: 25 mg Ondansetron HCl (Zofran Inj) 4 mg IVP Q4H PRN PRN Reason: Nausea/Vomiting Pantoprazole Sodium (Protonix Ec Tab) 40 mg PO DAILY [facility] Last Admin: 06/04/17 10:44 Dose: 40 mg Polyethylene Glycol (Miralax) 17 gm PO BID [facility] Last Admin: 06/04/17 18:51 Dose: Not Given Pregabalin (Lyrica) 75 mg PO BID [facility] Last Admin: 06/04/17 18:51 Dose: 75 mg Tamsulosin HCl (Flomax) 0.4 mg PO DAILY [facility] Last Admin: 06/04/17 10:44 Dose: 0.4 mg Vitamin B Complex/Vit C/Folic Acid (Nephro-Eleni) 1 tab PO 0800 [facility] Last Admin: 06/04/17 09:15 Dose: 1 tab - Labs Labs: 06/05/17 06:40 06/05/17 06:40
[2017-06-05] MEDS: Multivitamin Vitamin B Complex (Nephro-Vite) Tab PO SCH (10:13)
[2017-06-05] MEDS: Pantoprazole 20 mg EC Tab PO SCH (10:13)
[2017-06-05] MEDS: POLYETHYLENE GLYCOL 3350 17 GM/Dose PACKET PO SCH ×2 (10:14→18:22)
[2017-06-05] MEDS: Cefepime 1gm in NS 100ml 1 GM/100 ML BAG IVPB SCH (13:37)
--- NOTE | 2017-06-05 13:43 | CP.PCM.PN ---
<Nancy Clemens - Last Filed: 06/05/17 13:45> Subjective - Date & Time of Evaluation Date of Evaluation: 06/05/17 Time of Evaluation: 13:40 - Subjective Subjective: Hospitalist Service Progress Note: Patient seen and examined at bedside. Per nursing no acute events overnight. Patient is doing well, without any complaints at this time. Tolerating diet. Denies fevers, chills, nausea, vomiting, cp, palpitations, sob, abdominal pain, urinary symptoms, changes in bowel habits. Objective - Vital Signs/Intake and Output Vital Signs (last 24 hours): Temp Pulse Resp BP Pulse Ox 97.7 F 61 18 184/80 H 95 06/05/17 07:37 06/05/17 07:37 06/05/17 07:37 06/05/17 10:13 06/05/17 07:37 Intake and Output: 06/05/17 06/05/17 06:59 18:59 Intake Total 240 Output Total 1150 Balance -910 - Medications Medications: Current Medications Acetaminophen (Tylenol 325mg Tab) 650 mg PO Q6H PRN PRN Reason: Pain, moderate (4-7) Last Admin: 06/05/17 04:47 Dose: 650 mg Amlodipine Besylate (Norvasc) 5 mg PO DAILY [facility] Last Admin: 06/05/17 10:12 Dose: 5 mg Aspirin (Ecotrin) 81 mg PO DAILY [facility] Last Admin: 06/05/17 10:14 Dose: 81 mg Atorvastatin Calcium (Lipitor) 40 mg PO DIN [facility] Last Admin: 06/04/17 18:51 Dose: 40 mg Diphenhydramine HCl (Benadryl) 25 mg PO HS PRN PRN Reason: Insomnia Last Admin: 06/04/17 21:27 Dose: 25 mg Docusate Sodium (Colace) 100 mg PO BID [facility] Last Admin: 06/05/17 10:13 Dose: 100 mg Doxercalciferol (Hectorol) 1 mcg IV MWF [facility] Last Admin: 06/02/17 10:57 Dose: Not Given Hydralazine HCl (Apresoline) 25 mg PO TID [facility] Last Admin: 06/05/17 10:13 Dose: 25 mg Cefepime HCl (Maxipime 1gm) 1 gm in 100 mls @ 100 mls/hr IVPB Q24H [facility] PRN Reason: Protocol Last Admin: 06/04/17 15:10 Dose: 100 mls/hr Insulin Detemir (Levemir) 12 unit SC HS [facility] Last Admin: 06/04/17 21:27 Dose: 12 unit Isosorbide Mononitrate (Imdur) 60 mg PO DAILY [facility] Last Admin: 06/05/17 10:13 Dose: 60 mg Losartan Potassium (Cozaar) 100 mg PO DAILY [facility] Last Admin: 06/05/17 10:13 Dose: 100 mg Metoprolol Tartrate (Lopressor) 25 mg PO BID [facility] Last Admin: 06/05/17 10:13 Dose: 25 mg Ondansetron HCl (Zofran Inj) 4 mg IVP Q4H PRN PRN Reason: Nausea/Vomiting Pantoprazole Sodium (Protonix Ec Tab) 40 mg PO DAILY [facility] Last Admin: 06/05/17 10:13 Dose: 40 mg Polyethylene Glycol (Miralax) 17 gm PO BID [facility] Last Admin: 06/05/17 10:14 Dose: 17 gm Pregabalin (Lyrica) 75 mg PO BID [facility] Last Admin: 06/05/17 10:13 Dose: 75 mg Sevelamer HCl (Renagel) 1,600 mg PO TID [facility] Tamsulosin HCl (Flomax) 0.4 mg PO DAILY [facility] Last Admin: 06/05/17 10:13 Dose: 0.4 mg Vitamin B Complex/Vit C/Folic Acid (Nephro-Eleni) 1 tab PO 0800 [facility] Last Admin: 06/05/17 10:13 Dose: 1 tab - Labs Labs: 06/05/17 06:40 06/05/17 06:40 - Constitutional Appears: Non-toxic, No Acute Distress - Head Exam Head Exam: ATRAUMATIC, NORMAL INSPECTION - Eye Exam Eye Exam: EOMI, Normal appearance Pupil Exam: NORMAL ACCOMODATION, PERRL - ENT Exam ENT Exam: Mucous Membranes Moist - Neck Exam Neck Exam: Full ROM Additional comments: L IJ catheter removed, dressing c/d/i - Respiratory Exam Respiratory Exam: Clear to Ausculation Bilateral, NORMAL BREATHING PATTERN. absent: Rales, Rhonchi, Wheezes - Cardiovascular Exam Cardiovascular Exam: REGULAR RHYTHM, +S1, +S2 - GI/Abdominal Exam GI & Abdominal Exam: Soft. absent: Guarding, Rigid, Tenderness, Rebound - Exam Additional comments: Macias in draining clear yellow urine - Extremities Exam Extremities Exam: absent: Calf Tenderness Additional comments: R transmetatarsal amputation - Back Exam Back Exam: NORMAL INSPECTION - Neurological Exam Neurological Exam: Alert, Awake, Oriented x3 - Psychiatric Exam Psychiatric exam: Normal Affect, Normal Mood - Skin Skin Exam: Normal Color, Warm Assessment and Plan - Assessment and Plan (Free Text) Assessment: 56 y/o M with PMH of ESRD on HD MWF, CAD, HTN, AR x 3, DM, peripheral neuropathy , s/p CABG presents with pseudomonas bacteremia secondary to infected permacath with septic lung emboli. Patient was recently admitted for bacteremia 2/2 line sepsis. Pt will require 4-6 weeks of antibiotics for bacteremia. Pt will get PICC line and tunneled HD catheter placed today. Will continue Cefepime daily for bacteremia. Plan: 1. Hx of Sepsis/Bacteremia 2/2 infected Permacath with septic lung emboli -HD catheter removed -Continue Cefepime daily -Blood and urine cultures negative at this time -Repeat Echo showing no vegetations -Repeat CT chest showing improvement in septic emboli (see full report) -Plan for Permacath and PICC line today -ID recommending 4-6 weeks of IV antibiotics, in addition to having weekly CBC, CMP, ESR, and CRP 2. ESRD on HD MWF -Stable, afebrile -Continue Aranesp, Hectorol, Nephrovite -Temporary IJ HD catheter removed -Will go for tunneled catheter today with IR -Nephrology consulted f/u recommendations 3. Hypertension -BP stable -Continue Norvasc -Continue Cozaar, Lopressor, and Hydralazine 4. Hx of CAD, s/p CABG -Continue ASA, Lipitor -Imdur daily 5. Hx of Diabetes Mellitus with gastroparesis -Levemir 12 units -Accuchecks ACHS -Zofran prn nausea -Colace and miralax 6. Peripheral Neuropathy -Continue Lyrica 7. Urinary retention -Macias has been in since 05/15 for retention -Will attempt voiding trial today -Continue Flomax GI/DVT ppx -Protonix -SCDs <Marty Muir - Last Filed: 06/06/17 16:01> Objective - Vital Signs/Intake and Output Vital Signs (last 24 hours): Temp Pulse Resp BP Pulse Ox 99.6 F 68 18 125/84 92 L 06/06/17 13:21 06/06/17 13:21 06/06/17 13:21 06/06/17 13:21 06/06/17 13:21 Intake and Output: 06/06/17 06/06/17 06:59 18:59 Intake Total 480 720 Output Total 850 400 Balance -370 320 - Labs Labs: 06/06/17 06:46 06/06/17 06:46 Attending/Attestation - Attestation I have personally seen and examined this patient.: Yes I have fully participated in the care of the patient.: Yes I have reviewed all pertinent clinical information, including history, physical exam and plan: Yes Notes (Text): I have seen and examined the patient at bedside. Agree with the above note with the following additions/ exceptions: Briefly this is 56 year old male with history of ESRD on HD, CAD, CABG, HTN, AR, DM-2, peripheral neuropathy and GI bleed who is being admitted for IV antibiotics treatment for Pseudomonas bacteremia with bilateral septic emboli. ESTER negative. HD catheter removed. Plan for permacath and picc line today. Blood culture is negative so far. Continue IV cefepime. Echo negative for any vegetations. CT chest showed improving septic emboli. Patient will need 4 to 6 weeks of antibiotics. Voiding trial will be done today. It was reiterated that he needs to be compliant with his medications and HD sessions. We discussed with case specialist for outpatient antibiotics arrangement. Upon discharge the patient will follow-up with PMD Dr Mack. Dr Marty Muir
[2017-06-05] MEDS ORDERED: Midazolam 2 MG/2 ML VIAL ONE ×3 (13:51→15:04)
[2017-06-05] MEDS ORDERED: Lidocaine 2% Inj (20ml) ONE (13:51)
--- NOTE | 2017-06-05 15:55 | CP.PCM.PN ---
Subjective - Date & Time of Evaluation Date of Evaluation: 06/05/17 Time of Evaluation: 10:10 - Subjective Subjective: Comfortable, no fevers. Objective - Vital Signs/Intake and Output Vital Signs (last 24 hours): Temp Pulse Resp BP Pulse Ox 97.7 F 61 18 184/80 H 95 06/05/17 07:37 06/05/17 07:37 06/05/17 07:37 06/05/17 07:37 06/05/17 07:37 Intake and Output: 06/05/17 06/05/17 06:59 18:59 Intake Total 240 Output Total 1150 Balance -910 - Medications Medications: Current Medications Acetaminophen (Tylenol 325mg Tab) 650 mg PO Q6H PRN PRN Reason: Pain, moderate (4-7) Last Admin: 06/05/17 04:47 Dose: 650 mg Amlodipine Besylate (Norvasc) 5 mg PO DAILY [facility] Last Admin: 06/04/17 15:14 Dose: 5 mg Aspirin (Ecotrin) 81 mg PO DAILY [facility] Last Admin: 06/04/17 10:45 Dose: 81 mg Atorvastatin Calcium (Lipitor) 40 mg PO DIN [facility] Last Admin: 06/04/17 18:51 Dose: 40 mg Diphenhydramine HCl (Benadryl) 25 mg PO HS PRN PRN Reason: Insomnia Last Admin: 06/04/17 21:27 Dose: 25 mg Docusate Sodium (Colace) 100 mg PO BID [facility] Last Admin: 06/04/17 18:45 Dose: 100 mg Doxercalciferol (Hectorol) 1 mcg IV MWF [facility] Last Admin: 06/02/17 10:57 Dose: Not Given Hydralazine HCl (Apresoline) 25 mg PO TID [facility] Last Admin: 06/04/17 18:45 Dose: 25 mg Cefepime HCl (Maxipime 1gm) 1 gm in 100 mls @ 100 mls/hr IVPB Q24H [facility] PRN Reason: Protocol Last Admin: 06/04/17 15:10 Dose: 100 mls/hr Insulin Detemir (Levemir) 12 unit SC HS [facility] Last Admin: 06/04/17 21:27 Dose: 12 unit Isosorbide Mononitrate (Imdur) 60 mg PO DAILY [facility] Last Admin: 10/08/17 10:45 Dose: 60 mg Losartan Potassium (Cozaar) 100 mg PO DAILY [facility] Last Admin: 06/04/17 10:44 Dose: 100 mg Metoprolol Tartrate (Lopressor) 25 mg PO BID [facility] Last Admin: 06/04/17 18:51 Dose: 25 mg Ondansetron HCl (Zofran Inj) 4 mg IVP Q4H PRN PRN Reason: Nausea/Vomiting Pantoprazole Sodium (Protonix Ec Tab) 40 mg PO DAILY [facility] Last Admin: 06/04/17 10:44 Dose: 40 mg Polyethylene Glycol (Miralax) 17 gm PO BID [facility] Last Admin: 06/04/17 18:51 Dose: Not Given Pregabalin (Lyrica) 75 mg PO BID [facility] Last Admin: 06/04/17 18:51 Dose: 75 mg Tamsulosin HCl (Flomax) 0.4 mg PO DAILY [facility] Last Admin: 06/04/17 10:44 Dose: 0.4 mg Vitamin B Complex/Vit C/Folic Acid (Nephro-Eleni) 1 tab PO 0800 [facility] Last Admin: 06/04/17 09:15 Dose: 1 tab - Labs Labs: 06/05/17 06:40 06/05/17 06:40 - Constitutional Appears: Non-toxic, No Acute Distress - Head Exam Head Exam: NORMAL INSPECTION - ENT Exam ENT Exam: Mucous Membranes Moist - Neck Exam Neck Exam: absent: Lymphadenopathy, Meningismus - Respiratory Exam Respiratory Exam: Decreased Breath Sounds - Cardiovascular Exam Cardiovascular Exam: +S1, +S2 - GI/Abdominal Exam GI & Abdominal Exam: Soft. absent: Tenderness Assessment and Plan - Assessment and Plan (Free Text) Plan: Assessment sepsis due to persistent Pseudomonas bacteremia, with lung cavitary lesions, with septic emboli (also growing Pseudomonas), probably Permacath infection with no evidence of endocarditis on ESTER ( but still suspicious for tricuspid valve endocarditis);S/P removal of Permacath and replacement with temporary dialysis catheter history of sepsis due to Klebsiella bacteremia likely HD catheter infection S/P removal of tunneled Catheter history of C. diff. associated diarrhea DM HTN ESRD on HD CAD S/P CABG history of CVA history of rhabdomyolysis Plan continue Cefepime; repeat blood cx are negative would recommend 4-6 weeks of antibiotics and treat this as an endovascular infection with weekly ESR, CRP, CBC, CMP will continue to follow clinically
[2017-06-05] MEDS ORDERED: Cefepime 1gm in NS 100ml 1 GM/100 ML BAG IVPB SCH (16:00)
--- NOTE | 2017-06-05 16:13 | VASCULAR ---
PROCEDURE: Ultrasound and fluoroscopically placed left upper extremity PICC line. HISTORY: Bacteremia. End-stage renal disease. Limited IV access. Needs PICC line. PHYSICIAN(S): Yousif Cortés MD. TECHNIQUE: The relative risks and indications of the procedure were explained to the patient and consent obtained. The patient was placed supine on the arteriogram table and the left arm prepped and draped in the usual sterile fashion. A tourniquet was applied to the left axilla. 1% Xylocaine was used to anesthetize the skin and soft tissues at the puncture site above the elbow. The left basilic vein was punctured under direct ultrasound guidance with a micropuncture set. A 0.018 guidewire was advanced centrally and used to measure the length to the SVC/RA junction. A 5 [place] single-lumen PICC line 45 cm long was advanced to the SVC/RA junction. The catheter was flushed and secured. The patient tolerated the procedure well. IMPRESSION: 1. Ultrasound and fluoroscopically placed left upper extremity PICC line. A 5 [place] single-lumen PICC line 45 cm long was advanced to the SVC/RA junction.
--- NOTE | 2017-06-05 16:14 | VASCULAR ---
PROCEDURE: Ultrasound and fluoroscopic tunneled right IJ dialysis catheter. CLINICAL HISTORY: ESRD . needs dialysis catheter PHYSICIAN(S): Yousif Cortés M.D. TECHNIQUE: The relative risks and indications for the procedure were explained to the patient and informed written consent obtained. The patient was placed supine on the arteriography table and the right neck/chest was prepped and draped in the usual sterile fashion. 1% Xylocaine was used to anesthetize the skin and soft tissues at the puncture site. Conscious sedation and monitoring were provided throughout the procedure by a nurse. Under direct ultrasound guidance, the rightinternal jugular vein was punctured with a micropuncture set. A 0.035 Glidewire was advanced into the IVC. Sequential dilatation was performed with subsequent placement of a 28cm Shields II catheter with its tip in the right atrium. A retrograde tunnel below the right clavicle was performed. The catheter was trimmed and the hub attached. Both ports aspirate and inject easily. The catheter was secured and a dressing applied. The patient tolerated the procedure well. IMPRESSION: 1. Ultrasound and fluoroscopically placed right IJ tunneled dialysis catheter.
[2017-06-05] MEDS: Insulin Detemir 100 units/ml Vial (Levemir) SC SCH (21:18)
[2017-06-06 07:07] LABS: HEMATOCRIT 30.2 % (42.0-52.0); MEAN CORPUSCULAR HEMOGLOBIN 27.4 pg (25.0-35.0); MEAN CORPUSCULAR HGB CONC 31.8 g/dl (31.0-37.0); MEAN PLATELET VOLUME 11.3 fl (7.0-11.0); RED CELL DISTRIBUTION WIDTH 16.7 % (11.5-14.5); WHITE BLOOD COUNT 4.6 10^3/ul (4.5-11.0)
[2017-06-06 07:15] LABS: POTASSIUM 4.5 mmol/L (3.6-5.0)
[2017-06-06 07:16] LABS: ALB/GLOB RATIO 1.2 (1.1-1.8); BILIRUBIN,TOTAL 0.4 mg/dL (0.2-1.3); TOTAL PROTEIN 6.7 g/dL (5.8-8.3)
--- NOTE | 2017-06-06 09:24 | CP.PCM.DIS ---
<Nancy Clemens - Last Filed: 06/06/17 13:49> Provider - Provider Date of Admission: 05/29/17 14:23 Attending physician: Marty Muir MD Primary care physician: Mercedez Parekh MD Consults: ID: [id number] Nephro: Tami Time Spent in preparation of Discharge (in minutes): 35 Hospital Course - Lab Results Lab Results: Micro Results 05/29/17 16:25 Blood-During Dialysis Blood Culture - Final NO GROWTH AFTER 5 DAYS 05/29/17 16:25 Blood-During Dialysis Gram Stain - Final TEST NOT PERFORMED 05/31/17 18:45 Urine,Martinez Urine Culture - Final No Growth (<1,000 CFU/ML) Most Recent Lab Values WBC 4.6 10^3/ul (4.5-11.0) 06/06/17 06:46 RBC 3.51 10^6/uL (3.5-6.1) 06/06/17 06:46 Hgb 9.6 g/dL (14.0-18.0) L 06/06/17 06:46 Hct 30.2 % (42.0-52.0) L 06/06/17 06:46 MCV 86.0 fl (80.0-105.0) 06/06/17 06:46 MCH 27.4 pg (25.0-35.0) 06/06/17 06:46 MCHC 31.8 g/dl (31.0-37.0) 06/06/17 06:46 RDW 16.7 % (11.5-14.5) H 06/06/17 06:46 Plt Count 192 10^3/uL (120.0-450.0) 06/06/17 06:46 MPV 11.3 fl (7.0-11.0) H 06/06/17 06:46 Gran % 55.6 % (50.0-68.0) 06/02/17 06:10 Lymph % (Auto) 28.5 % (22.0-35.0) 06/02/17 06:10 [place] % (Auto) 7.1 % (1.0-6.0) H 06/02/17 06:10 Eos % (Auto) 6.5 % (1.5-5.0) H 06/02/17 06:10 Baso % (Auto) 2.3 % (0.0-3.0) 06/02/17 06:10 Gran # 2.90 (1.4-6.5) 06/02/17 06:10 Lymph # 1.5 (1.2-3.4) 06/02/17 06:10 [place] # 0.4 (0.1-0.6) 06/02/17 06:10 Eos # 0.3 (0.0-0.7) 06/02/17 06:10 Baso # 0.12 K/mm3 (0.0-2.0) 06/02/17 06:10 Sodium 140 mmol/L (132-148) 06/06/17 06:46 Potassium 4.5 mmol/L (3.6-5.0) 06/06/17 06:46 Chloride 103 mmol/L (98-107) 06/06/17 06:46 Carbon Dioxide 24 mmol/L (21-33) 06/06/17 06:46 Anion Gap 18 (10-20) 06/06/17 06:46 BUN 58 mg/dL (7-21) H 06/06/17 06:46 Creatinine 5.4 mg/dL (0.8-1.5) H 06/06/17 06:46 Est GFR ( Amer) 13 06/06/17 06:46 Est GFR (Non-Af Amer) 11 06/06/17 06:46 POC Glucose (mg/dL) 154 mg/dL (65-110) H 06/06/17 07:12 Random Glucose 149 mg/dL (70-110) H 06/06/17 06:46 Calcium 9.0 mg/dL (8.4-10.5) 06/06/17 06:46 Phosphorus 5.3 mg/dL (2.5-4.5) H 06/02/17 06:10 Magnesium 1.9 mg/dL (1.7-2.2) 06/02/17 06:10 Total Bilirubin 0.4 mg/dL (0.2-1.3) 06/06/17 06:46 AST 17 U/L (17-59) 06/06/17 06:46 ALT 21 U/L (7-56) 06/06/17 06:46 Alkaline Phosphatase 83 U/L (38-126) 06/06/17 06:46 Total Protein 6.7 g/dL (5.8-8.3) 06/06/17 06:46 Albumin 3.6 g/dL (3.0-4.8) 06/06/17 06:46 Globulin 3.1 gm/dL 06/06/17 06:46 Albumin/Globulin Ratio 1.2 (1.1-1.8) 06/06/17 06:46 Urine Color Yellow (YELLOW) 05/31/17 18:45 Urine Appearance Sl cloudy (CLEAR) 05/31/17 18:45 Urine pH 7.5 (4.7-8.0) 05/31/17 18:45 Ur Specific [place] 1.020 (1.005-1.035) 05/31/17 18:45 Urine Protein >=300 mg/dL (<30 mg/dL) H 05/31/17 18:45 Urine Glucose (UA) 250 mg/dL (NEGATIVE) H 05/31/17 18:45 Urine Ketones Negative mg/dL (NEGATIVE) 05/31/17 18:45 Urine Blood Trace-intact (NEGATIVE) H 05/31/17 18:45 Urine Nitrate Negative (NEGATIVE) 05/31/17 18:45 Urine Bilirubin Negative (NEGATIVE) 05/31/17 18:45 Urine Urobilinogen 0.2 E.U./dL (<1 E.U./dL) 05/31/17 18:45 Ur Leukocyte Esterase Trace Zarina/uL (NEGATIVE) H 05/31/17 18:45 Urine RBC 0 - 2 /hpf (0-2) 05/31/17 18:45 Urine WBC 1 - 3 /hpf (0-6) 05/31/17 18:45 Urine Bacteria Trace (NEG) 05/31/17 18:45 - Hospital Course Hospital Course: Patient is a 56 year old male with past medical history of ESRD on HD MWF, CAD, HTN, WI x 3, DM with gastroparesis, peripheral neuropathy, CABG presents to the ED for hemodialysis. Patient was recently admitted for sepsis with septic emboli 2/2 line infection and was found to be bacteremic with Pseudomonas that was treated with IV Cefepime. Patient signed out AMA a week prior to this admission and has not received hemodialysis since then. Patient was admitted and went for hemodialysis MWF as scheduled. During hospital course, patient was started on home medications and tucker cultured. Patient was also started on IV cefepime. Nephrology and ID were consulted and on the case. Repeat CT chest showed improvement in septic emboli. Repeat echo was negative for vegetations. Blood cultures showed no growth after 5 days. Urine cultures showed no growth. Per ID and Nephro recommendations, Left IJ temporary hemodialysis catheter could be removed. Patient was cleared for permacath placement with IR. Patient also went for PICC line placement as he will need to continue IV Cefepime for 6 weeks. Patient has a history of urinary retention and had a martinez in place during admission. Martinez trial was attempted however patient did not urinate on his own. Martinez was reinserted. Patient instructed to follow up with Urology (Dr. Giron) upon discharge. On day of discharge, patient was doing well, tolerating diet. Offered no complaints. Patient was seen ambulating with Physical therapy. Patient was medically stable and cleared for discharge home. Home antibiotic infusion therapy set up by case management. Medications reconciled and prescriptions were sent to his pharmacy. Patient advised will need to follow up with PMD (Dr Mack) and Nephrology (Dr Garrett) within 1 week. Patient understands that he will need to continue IV antibiotics for total 6 weeks and will need weekly CBC , CMP, ESR, CRP labs drawn. All questions and concerns were addressed. Discharge Exam - Head Exam Head Exam: NORMAL INSPECTION - Eye Exam Eye Exam: EOMI, Normal appearance Pupil Exam: NORMAL ACCOMODATION - ENT Exam ENT Exam: Mucous Membranes Moist - Neck Exam Neck exam: Full Rom Additional comments: Right HD permacath in place - Respiratory Exam Respiratory Exam: Clear to PA & Lateral, UNREMARKABLE. absent: Rales, Rhonchi, Wheezes - Cardiovascular Exam Cardiovascular Exam: REGULAR RHYTHM, +S1, +S2 - GI/Abdominal Exam GI & Abdominal Exam: Normal Bowel Sounds, Soft. absent: Guarding, Rebound, Rigid, Tenderness - Extremities Exam Extremities exam: pedal pulses present Additional comments: L arm PICC line Hx of R transmetatarsal amputation - Back Exam Back exam: NORMAL INSPECTION - Neurological Exam Neurological exam: Alert, Normal Gait, Oriented x3 - Psychiatric Exam Psychiatric exam: Normal Affect, Normal Mood - Skin Skin Exam: Normal Color, Warm Discharge Plan - Discharge Medications Prescriptions: amLODIPine [Norvasc] 5 mg PO DAILY #30 tab Aspirin [Ecotrin] 81 mg PO DAILY #30 tabec Atorvastatin [Lipitor] 40 mg PO DIN #30 tab Cefepime 1gm in NS 100ml [Maxipime 1gm] 1 gm IVPB DAILY #36 bag Docusate [Colace] 100 mg PO BID #60 cap Doxercalciferol [Hectorol] 1 mcg IV MWF #12 vial hydrALAZINE [Apresoline] 25 mg PO TID #90 tab Isosorbide Mononitrate [Imdur] 60 mg PO DAILY #30 tab Losartan [Cozaar] 100 mg PO DAILY #30 tab Metoprolol Tartrate [Lopressor] 25 mg PO BID #60 tab Ondansetron [Zofran Odt] 4 mg PO Q4H PRN #30 odt PRN Reason: Nausea/Vomiting Pantoprazole Sodium [Protonix] 20 mg PO DAILY #30 ect Polyethylene Glycol 3350 [Miralax] 17 gm PO BID #28 packet Pregabalin [Lyrica] 75 mg PO BID #60 cap Sevelamer [Renagel] 1,600 mg PO TID #90 tab Tamsulosin [Flomax] 0.4 mg PO DAILY #30 cap Vitamin B Complex/Vit C/Folic [Nephro-Eleni] 1 tab PO 0800 #30 tab - Follow Up Plan Condition: FAIR Disposition: HOME/ ROUTINE Instructions: Martinez Catheter Placement and Care (DC), Peripherally Inserted Central Catheters and Midline Catheters (DC), End Stage Kidney Disease (DC) Additional Instructions: 1. Patient will need to continue IV Cefepime 1gm daily x 36 days (total 6 weeks of treatment) 2. Continue HD MWF schedule 3. Follow up with PMD within 1 week 4. Follow up with Nephro within 1 week 5. Martinez in, follow up with Urology (Dr Giron) within 1 week 6. Continue medications as prescribed 7. Will need weekly labs drawn Referrals: Sancho Garrett MD [Staff Provider] - Rocky Giron MD [Staff Provider] - Mercedez Parekh MD [Primary Care Provider] - <Marty Muir - Last Filed: 06/06/17 16:05> Provider - Provider Date of Admission: 05/29/17 14:23 Attending physician: Marty Muir MD Primary care physician: Mercedez Parekh MD Hospital Course - Lab Results Lab Results: Micro Results 05/29/17 16:25 Blood-During Dialysis Blood Culture - Final NO GROWTH AFTER 5 DAYS 05/29/17 16:25 Blood-During Dialysis Gram Stain - Final TEST NOT PERFORMED 05/31/17 18:45 Urine,Martinez Urine Culture - Final No Growth (<1,000 CFU/ML) Most Recent Lab Values WBC 4.6 10^3/ul (4.5-11.0) 06/06/17 06:46 RBC 3.51 10^6/uL (3.5-6.1) 06/06/17 06:46 Hgb 9.6 g/dL (14.0-18.0) L 06/06/17 06:46 Hct 30.2 % (42.0-52.0) L 06/06/17 06:46 MCV 86.0 fl (80.0-105.0) 06/06/17 06:46 MCH 27.4 pg (25.0-35.0) 06/06/17 06:46 MCHC 31.8 g/dl (31.0-37.0) 06/06/17 06:46 RDW 16.7 % (11.5-14.5) H 06/06/17 06:46 Plt Count 192 10^3/uL (120.0-450.0) 06/06/17 06:46 MPV 11.3 fl (7.0-11.0) H 06/06/17 06:46 Gran % 55.6 % (50.0-68.0) 06/02/17 06:10 Lymph % (Auto) 28.5 % (22.0-35.0) 06/02/17 06:10 [place] % (Auto) 7.1 % (1.0-6.0) H 06/02/17 06:10 Eos % (Auto) 6.5 % (1.5-5.0) H 06/02/17 06:10 Baso % (Auto) 2.3 % (0.0-3.0) 06/02/17 06:10 Gran # 2.90 (1.4-6.5) 06/02/17 06:10 Lymph # 1.5 (1.2-3.4) 06/02/17 06:10 [place] # 0.4 (0.1-0.6) 06/02/17 06:10 Eos # 0.3 (0.0-0.7) 06/02/17 06:10 Baso # 0.12 K/mm3 (0.0-2.0) 06/02/17 06:10 Sodium 140 mmol/L (132-148) 06/06/17 06:46 Potassium 4.5 mmol/L (3.6-5.0) 06/06/17 06:46 Chloride 103 mmol/L (98-107) 06/06/17 06:46 Carbon Dioxide 24 mmol/L (21-33) 06/06/17 06:46 Anion Gap 18 (10-20) 06/06/17 06:46 BUN 58 mg/dL (7-21) H 06/06/17 06:46 Creatinine 5.4 mg/dL (0.8-1.5) H 06/06/17 06:46 Est GFR ( Amer) 13 06/06/17 06:46 Est GFR (Non-Af Amer) 11 06/06/17 06:46 POC Glucose (mg/dL) 240 mg/dL (65-110) H 06/06/17 11:21 Random Glucose 149 mg/dL (70-110) H 06/06/17 06:46 Calcium 9.0 mg/dL (8.4-10.5) 06/06/17 06:46 Phosphorus 5.3 mg/dL (2.5-4.5) H 06/02/17 06:10 Magnesium 1.9 mg/dL (1.7-2.2) 06/02/17 06:10 Total Bilirubin 0.4 mg/dL (0.2-1.3) 06/06/17 06:46 AST 17 U/L (17-59) 06/06/17 06:46 ALT 21 U/L (7-56) 06/06/17 06:46 Alkaline Phosphatase 83 U/L (38-126) 06/06/17 06:46 Total Protein 6.7 g/dL (5.8-8.3) 06/06/17 06:46 Albumin 3.6 g/dL (3.0-4.8) 06/06/17 06:46 Globulin 3.1 gm/dL 06/06/17 06:46 Albumin/Globulin Ratio 1.2 (1.1-1.8) 06/06/17 06:46 Urine Color Yellow (YELLOW) 05/31/17 18:45 Urine Appearance Sl cloudy (CLEAR) 05/31/17 18:45 Urine pH 7.5 (4.7-8.0) 05/31/17 18:45 Ur Specific [place] 1.020 (1.005-1.035) 05/31/17 18:45 Urine Protein >=300 mg/dL (<30 mg/dL) H 05/31/17 18:45 Urine Glucose (UA) 250 mg/dL (NEGATIVE) H 05/31/17 18:45 Urine Ketones Negative mg/dL (NEGATIVE) 05/31/17 18:45 Urine Blood Trace-intact (NEGATIVE) H 05/31/17 18:45 Urine Nitrate Negative (NEGATIVE) 05/31/17 18:45 Urine Bilirubin Negative (NEGATIVE) 05/31/17 18:45 Urine Urobilinogen 0.2 E.U./dL (<1 E.U./dL) 05/31/17 18:45 Ur Leukocyte Esterase Trace Zarina/uL (NEGATIVE) H 05/31/17 18:45 Urine RBC 0 - 2 /hpf (0-2) 05/31/17 18:45 Urine WBC 1 - 3 /hpf (0-6) 05/31/17 18:45 Urine Bacteria Trace (NEG) 05/31/17 18:45 Attending/Attestation - Attestation I have personally seen and examined this patient.: Yes I have fully participated in the care of the patient.: Yes I have reviewed all pertinent clinical information, including history, physical exam and plan: Yes Notes (Text): I have seen and examined the patient at bedside. Agree with the above note with the following additions/ exceptions: Briefly this is 56 year old male with history of ESRD on HD, CAD, CABG, HTN, WI, DM-2, peripheral neuropathy and GI bleed who is being admitted for IV antibiotics treatment for Pseudomonas bacteremia with bilateral septic emboli. ESTER negative. HD catheter removed. permacath and picc line in place. Blood culture is negative so far. Continue IV cefepime. Echo negative for any vegetations. CT chest showed improving septic emboli. Patient will need 4 to 6 weeks of antibiotics. Patient failed voiding trial againa nd martinez was reinserted. It was reiterated that he needs to be compliant with his medications and HD sessions. We discussed with employment case manager for outpatient antibiotics arrangement. Upon discharge the patient will follow- up with PMD Dr Mack, geochemical laboratory technician Dr Garrett and Dr Giron urologist. Dr Marty Muir
[2017-06-06] MEDS: Pantoprazole 20 mg EC Tab PO SCH (09:58)
[2017-06-06] MEDS: Multivitamin Vitamin B Complex (Nephro-Vite) Tab PO SCH (09:59)
[2017-06-06] MEDS: POLYETHYLENE GLYCOL 3350 17 GM/Dose PACKET PO SCH (09:59)
[2017-06-06] MEDS ORDERED: Cefepime 1gm in NS 100ml 1 GM/100 ML BAG IVPB SCH (11:45)
--- NOTE | 2017-06-06 13:05 | CP.PCM.PN ---
Subjective - Date & Time of Evaluation Date of Evaluation: 06/06/17 Time of Evaluation: 13:04 - Subjective Subjective: RENAL FOLLOW UP NOTE no events overnight for possible discharge today Objective - Vital Signs/Intake and Output Vital Signs (last 24 hours): Temp Pulse Resp BP Pulse Ox 98.2 F 63 20 170/80 H 97 06/06/17 08:08 06/06/17 08:08 06/06/17 08:08 06/06/17 09:58 06/06/17 08:08 Intake and Output: 06/06/17 06/06/17 06:59 18:59 Intake Total 480 Output Total 850 Balance -370 - Medications Medications: Current Medications Acetaminophen (Tylenol 325mg Tab) 650 mg PO Q6H PRN PRN Reason: Pain, moderate (4-7) Last Admin: 06/05/17 21:17 Dose: 650 mg Amlodipine Besylate (Norvasc) 5 mg PO DAILY [facility] Last Admin: 06/06/17 09:58 Dose: 5 mg Aspirin (Ecotrin) 81 mg PO DAILY [facility] Last Admin: 06/06/17 09:58 Dose: 81 mg Atorvastatin Calcium (Lipitor) 40 mg PO DIN [facility] Last Admin: 06/05/17 18:18 Dose: Not Given Diphenhydramine HCl (Benadryl) 25 mg PO HS PRN PRN Reason: Insomnia Last Admin: 06/05/17 21:17 Dose: 25 mg Docusate Sodium (Colace) 100 mg PO BID [facility] Last Admin: 06/06/17 09:58 Dose: 100 mg Doxercalciferol (Hectorol) 1 mcg IV MWF [facility] Last Admin: 06/02/17 10:57 Dose: Not Given Hydralazine HCl (Apresoline) 25 mg PO TID [facility] Last Admin: 06/06/17 09:58 Dose: 25 mg Cefepime HCl (Maxipime 1gm) 1 gm in 100 mls @ 100 mls/hr IVPB Q24H MARYANN PRN Reason: Protocol Last Admin: 06/06/17 11:48 Dose: 100 mls/hr Insulin Detemir (Levemir) 12 unit SC HS [facility] Last Admin: 06/05/17 21:18 Dose: 12 unit Isosorbide Mononitrate (Imdur) 60 mg PO DAILY [facility] Last Admin: 06/06/17 09:57 Dose: 60 mg Losartan Potassium (Cozaar) 100 mg PO DAILY [facility] Last Admin: 06/06/17 09:58 Dose: 100 mg Metoprolol Tartrate (Lopressor) 25 mg PO BID [facility] Last Admin: 06/06/17 09:58 Dose: 25 mg Ondansetron HCl (Zofran Inj) 4 mg IVP Q4H PRN PRN Reason: Nausea/Vomiting Pantoprazole Sodium (Protonix Ec Tab) 40 mg PO DAILY [facility] Last Admin: 06/06/17 09:58 Dose: 40 mg Polyethylene Glycol (Miralax) 17 gm PO BID [facility] Last Admin: 06/06/17 09:59 Dose: 17 gm Pregabalin (Lyrica) 75 mg PO BID [facility] Last Admin: 06/06/17 09:57 Dose: 75 mg Sevelamer HCl (Renagel) 1,600 mg PO TID [facility] Last Admin: 06/06/17 09:58 Dose: 1,600 mg Tamsulosin HCl (Flomax) 0.4 mg PO DAILY [facility] Last Admin: 06/06/17 09:57 Dose: 0.4 mg Vitamin B Complex/Vit C/Folic Acid (Nephro-Eleni) 1 tab PO 0800 [facility] Last Admin: 06/06/17 09:59 Dose: 1 tab - Labs Labs: 06/06/17 06:46 06/06/17 06:46 - Constitutional Appears: Non-toxic, No Acute Distress - Head Exam Head Exam: NORMAL INSPECTION - Eye Exam Eye Exam: Normal appearance - ENT Exam ENT Exam: Mucous Membranes Moist - Respiratory Exam Respiratory Exam: NORMAL BREATHING PATTERN - Cardiovascular Exam Cardiovascular Exam: +S1, +S2 - GI/Abdominal Exam GI & Abdominal Exam: Soft - Neurological Exam Neurological Exam: Alert, Awake, Oriented x3 - Psychiatric Exam Psychiatric exam: Flat Affect - Skin Skin Exam: Dry Assessment and Plan - Assessment and Plan (Free Text) Plan: catheter related BSI with psuedomonas sepsis/pulm septic emboli/DM/ESRD/HTN/ Anemia/sec hyperpth/cad HD MWF per schedule anemia: aranesp with hd sec hyperpth: continue hectoral and renvela HTN: can increase norvasc as bp still up abx per ID continue neprocaps
[2017-06-06 13:22] VITALS: BP 125/84; PULSE 68; RESP 18; TEMP 99.6; O2SAT 92
--- NOTE | 2017-06-06 16:41 | PN ---
DATE: 06/06/2017 SUBJECTIVE: The patient is in bed, in no acute distress, nontoxic. No fevers, no chills, no nausea. PHYSICAL EXAMINATION: VITAL SIGNS: On exam, temperature is 99, blood pressure is 120/80, respiratory rate of 18. HEENT: Unremarkable. NECK: Supple. LUNGS: Decreased breath sounds. HEART: Normal S1, S2. ABDOMEN: Soft, nontender. LABORATORY: Examination reveals a white count of 4.6, hemoglobin of 9, platelets of 192. BUN of 58, creatinine of 5.4. Urinalysis is noted. Microbiology reveals the blood cultures are negative. Urine cultures are negative. MEDICATIONS: Review of orders revealed the patient is on cefepime. ASSESSMENT AND PLAN: A 56-year-old male seen earlier today in 364, bed 2 with sepsis due to persistent Pseudomonas bacteremia with a lung cavity lesion with septic emboli also growing Pseudomonas, probably Perm-A-Cath infection and no evidence of endocarditis on ESTER, but still suspicious for tricuspid valve and endocarditis, status post removal of the Perm-A-Cath and replacement with a temporary dialysis catheter; and with diabetes; hypertension; endstage renal disease, hemodialysis; coronary artery disease, status post CABG; currently on cefepime. Would recommend 4-6 weeks of cefepime as an endovascular infection with a weekly CBC, SMA-18, sed rate, C-reactive protein. Boyd Green MD
== END 2017-06-06 14:34 | disposition home or self-care (01) | DRG 543 ==
LOC: ED 12:23 → ERH 14:23 → 3RNO 18:35
PROVIDERS: ADMIT Internal Medicine; ATTEND Hospitalist
PROC: 5A1D70Z Performance of Urinary Filtration, Intermittent, Less than 6 Hours Per Day (ICD-10-PCS; 2017-05-29)
PROC: 05PYX3Z Removal of Infusion Device from Upper Vein, External Approach (ICD-10-PCS; 2017-06-03)
PROC: 02HV33Z Insertion of Infusion Device into Superior Vena Cava, Percutaneous Approach (ICD-10-PCS; principal; 2017-06-05)
PROC: B548ZZA Ultrasonography of Superior Vena Cava, Guidance (ICD-10-PCS; 2017-06-05)
PROC: 02H633Z Insertion of Infusion Device into Right Atrium, Percutaneous Approach (ICD-10-PCS; 2017-06-05)
DX: T80.211A Bloodstream infection due to central venous catheter, initial encounter (principal); A41.52 Sepsis due to Pseudomonas; I26.90 Septic pulmonary embolism without acute cor pulmonale; I76 Septic arterial embolism; N18.6 End stage renal disease; I12.0 Hypertensive chronic kidney disease with stage 5 chronic kidney disease or end stage renal disease; N25.81 Secondary hyperparathyroidism of renal origin; K22.10 Ulcer of esophagus without bleeding; E11.22 Type 2 diabetes mellitus with diabetic chronic kidney disease; E11.42 Type 2 diabetes mellitus with diabetic polyneuropathy; E11.43 Type 2 diabetes mellitus with diabetic autonomic (poly)neuropathy; K31.84 Gastroparesis; D64.9 Anemia, unspecified; Z99.2 Dependence on renal dialysis; I25.10 Atherosclerotic heart disease of native coronary artery without angina pectoris; R33.9 Retention of urine, unspecified; E83.39 Other disorders of phosphorus metabolism; I25.2 Old myocardial infarction; Y84.8 Other medical procedures as the cause of abnormal reaction of the patient, or of later complication, without mention of misadventure at the time of the procedure; Z91.19 Patient's noncompliance with other medical treatment and regimen; Z91.15 Patient's noncompliance with renal dialysis; Z86.73 Personal history of transient ischemic attack (TIA), and cerebral infarction without residual deficits; Z95.5 Presence of coronary angioplasty implant and graft; Z95.1 Presence of aortocoronary bypass graft; Z91.013 Allergy to seafood

== ENCOUNTER 2017-06-10 17:32 | Inpatient (IN) | payer MEDICAID ==
--- NOTE | 2017-06-10 17:56 | CT ---
PROCEDURE: CT HEAD WITHOUT CONTRAST. HISTORY: ams COMPARISON: No prior study available comparison TECHNIQUE: Axial computed tomography images were obtained through the head/brain without intravenous contrast. Radiation dose: Total exam DLP = 792.29 mGy-cm. This CT exam was performed using one or more of the following dose reduction techniques: Automated exposure control, adjustment of the mA and/or kV according to patient size, and/or use of iterative reconstruction technique. FINDINGS: HEMORRHAGE: No acute parenchymal, subarachnoid or extra-axial hemorrhage. Hemorrhage. BRAIN: Mild chronic periventricular white matter ischemic changes with scattered chronic bilateral subcortical white matter ischemic changes. There is a small elliptical shaped age-indeterminate lacunar type infarct in the right thalamus. There are also a few smaller scattered chronic appearing bilateral basal nuclei lacunar type infarcts. . Probable dilated perivascular space left inferolateral basal ganglia. Moderate generalized volume loss Vascular calcifications of the carotid siphons VENTRICLES: No evidence of obstructive hydrocephalus. . CALVARIUM: There are no acute calvarial fracture seen. Chronic right nasal bone fracture deformity PARANASAL SINUSES: Unremarkable as visualized. No significant inflammatory changes. MASTOID AIR CELLS: Partial opacification in the several right inferior mastoid air cells. Minor mucosal thickening also noted within a few ethmoid air cells. OTHER FINDINGS: None. IMPRESSION: No acute intracranial hemorrhage. Mild chronic periventricular white matter ischemic changes and scattered deep and subcortical white matter ischemic changes. Age-indeterminate small infarct right thalamus. There are additional smaller lacunar type infarcts scattered about both basal nuclei. Probable dilated perivascular space left inferolateral basal ganglia. Moderate generalized volume loss. Note these findings were discussed with Dr. Jose salinas at approximately 5:52 p.m. with written down and read back verification.
--- NOTE | 2017-06-10 17:59 | ED PDOC ---
Arrival/HPI - General Chief Complaint: Altered Mental Status Time Seen by Provider: 06/10/17 17:33 Historian: Patient - History of Present Illness Narrative History of Present Illness (Text): 06/10/17 17:53 A 56 year old male whose past medical history includes stroke, hypertension, ESRD on hemodialysis (MWF), CABG, diabetes, presents to the emergency department via EMS for AMS. As per EMS, the patient was on the phone with a friend and began acting confused and slurred speech. EMS was called and code stroke was activated. Upon arrival the patient was alert and oriented x2. There is no family at bedside, further history is unknown. The patient states that he does not recall the last time he was dialyzed. The patient has had multiple visits, and is non-compliant. Review of Systems is limited due to patient's condition. The patient denies fevers, chills, headache, dizziness, sore throat, cough, chest pain, shortness of breath, dyspnea on exertion, abdominal pain, nausea, vomiting, diarrhea, neck pain, back pain, urinary/bowel changes, trauma/ injury, suicidal/homicidal ideation, or any other complaints. Time/Duration: Prior to Arrival Symptom Onset: Sudden Symptom Course: Unchanged Activities at Onset: Rest, Light Context: Street Past Medical History - Provider Review Nursing Documentation Reviewed: Yes - Infectious Disease Hx of Infectious Diseases: None - Tetanus Immunization Tetanus Immunization: Unknown - Cardiac Hx Cardiac Disorders: Yes (CAD, [place] x 3, CABG x 3) Hx Hypertension: Yes - Pulmonary Hx Respiratory Disorders: Yes Other/Comment: PULMONARY EDEMA - Neurological HX Cerebrovascular Accident: Yes - HEENT Hx HEENT Disorder: Yes (CONTACT LENSES) - Renal Hx Renal Failure: Yes (HD MWF) - Endocrine/Metabolic Hx Diabetes Mellitus Type 2: Yes - Hematological/Oncological Hx Blood Disorders: No - Integumentary Hx Dermatological Disorder: Yes Other/Comment: righty lower ext rash, pt stated "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" - Musculoskeletal/Rheumatological Hx Musculoskeletal Disorders: No Hx Falls: Yes Other/Comment: generalized weakness - Gastrointestinal Hx Gastrointestinal Disorders: No - Genitourinary/Gynecological Hx Urinary Tract Infection: Yes - Psychiatric Hx Psychophysiologic Disorder: No Hx Depression: No Hx Emotional Abuse: No Hx Physical Abuse: No Hx Substance Use: Yes - Surgical History Hx Amputation: Yes (R toes) Hx Cardiac Catheterization: Yes (09/09) Hx Coronary Stent: Yes Hx Open Heart Surgery: Yes (12-26-12) Other/Comment: temporary dialysis catheter. ERIC PICC line - Anesthesia Hx Anesthesia: Yes Hx Anesthesia Reactions: No Hx Malignant Hyperthermia: No - Suicidal Assessment Feels Threatened In Home Enviroment: No Family/Social History - Physician Review Nursing Documentation Reviewed: Yes Family/Social History: No Known Family HX Smoking Status: Never Smoked Hx Alcohol Use: Yes (ETOH ABUSE) Hx Substance Use: Yes Hx Substance Use Treatment: No Allergies/Home Meds Allergies/Adverse Reactions: Allergies Seafood Allergy (Uncoded 05/29/17 18:46) ANAPHYLAXIS Review of Systems - Review of Systems Systems not reviewed;Unavailable: Altered Mental Status Physical Exam Vital Signs Reviewed: Yes Vital Signs Pulse Pulse Resp BP Pulse Ox 06/10/17 22:30 194/88 H 06/10/17 22:18 80 76 18 172/80 H 06/10/17 22:01 80 172/80 H 06/10/17 19:23 76 171/77 H 06/10/17 19:02 85 18 200/125 H 98 06/10/17 18:35 82 221/99 H 06/10/17 17:32 72 20 222/100 H 100 Temperature: Afebrile Blood Pressure: Hypertensive Pulse: Regular Respiratory Rate: Normal Appearance: Positive for: Well-Appearing, Non-Toxic, Comfortable Pain Distress: None Mental Status: Positive for: Alert and Oriented X 3 Finger Stick Blood Glucose: 112 - Systems Exam Head: Present: Atraumatic, Normocephalic Pupils: Present: PERRL Extroacular Muscles: Present: EOMI Conjunctiva: Present: Normal Mouth: Present: Moist Mucous Membranes Neck: Present: Normal Range of Motion Respiratory/Chest: Present: Clear to Auscultation, Good Air Exchange. No: Respiratory Distress, Accessory Muscle Use Cardiovascular: Present: Regular Rate and Rhythm, Normal S1, S2. No: Murmurs Abdomen: Present: Normal Bowel Sounds. No: Tenderness, Distention, Peritoneal Signs Back: Present: Normal Inspection Upper Extremity: Present: Normal Inspection. No: Cyanosis, Edema Lower Extremity: Present: Normal Inspection. No: Edema Skin: Present: Warm, Dry, Normal Color. No: Rashes Psychiatric: Present: Alert, Oriented x 3, Normal Insight, Normal Concentration Medical Decision Making ED Course and Treatment: 06/10/17 17:59 Impression: A 56 year old male was brought in to the emergency department via EMS for AMS. Plan: -- EKG -- Chest X-ray -- Labs -- Blood Culture -- Urinalysis -- Head CT -- Reassess and disposition Prior Visits: Notes and results from previous visits were reviewed. On 05/29/17, the patient presented to the emergency department because he missed dialysis for 2 days and was due for treatment that day. The patient denied any complaints. The patient was hospitalized. Progress Notes: 06/10/17 17:59: Case discussed in detail with Dr. Keith. The patient was no accepted to [facility] because of unknown onset of symptoms. EKG: Ordered, reviewed, and independently interpreted the EKG. Rate : 71 BPM Rhythm : NSR Interpretation : LVH. No ST/T-wave changes. No interval changes. Comparison : No previous EKG for comparison. CT HEAD WITHOUT CONTRAST Creator : Ashutosh Valle MD Report Date : 06/10/2017 17:54:41 IMPRESSION: No acute intracranial hemorrhage. Mild chronic periventricular white matter ischemic changes and scattered deep and subcortical white matter ischemic changes. Age-indeterminate small infarct right thalamus. There are additional smaller lacunar type infarcts scattered about both basal nuclei. Probable dilated perivascular space left inferolateral basal ganglia. Moderate generalized volume loss. Note these findings were discussed with Dr. Jose salinas at approximately 5:52 p.m. with written down and read back verification. - Lab Interpretations Microbiology Results: Microbiology Results 06/10/17 17:50 Blood Blood Culture - Preliminary NO GROWTH AFTER 3 DAYS 06/10/17 17:50 Blood Blood Culture - Preliminary Bacillus Species Gram Positive Cocci 06/10/17 17:50 Blood Gram Stain - Final Lab Results: 06/10/17 17:50 06/10/17 17:50 Lab Results 06/10/17 17:50: pO2 34, VBG pH 7.36, VBG pCO2 48.0, VBG HCO3 27.1, VBG Total CO2 28.6 H, VBG O2 Sat (Calc) 69.4 H, VBG Base Excess 1.0, VBG Potassium 5.4 H, Sodium 139.0, Chloride 104.0, Glucose 110, Lactate 1.9, FiO2 21.0, Venous Blood Potassium 5.4 H 06/10/17 17:50: Hemoglobin A1c 7.1 H 06/10/17 17:50: Sodium 141, Chloride 100, Potassium 4.9, Carbon Dioxide 25, Anion Gap 21 H, BUN 53 H, Creatinine 7.0 H, Est GFR ( Amer) 10, Est GFR ( Non-Af Amer) 8, Random Glucose 112 H, Calcium 9.9, Total Bilirubin 0.9, AST 32, ALT 28, Alkaline Phosphatase 113, Troponin I 0.02 D, Total Protein 8.5 H, Albumin 4.7, Globulin 3.8, Albumin/Globulin Ratio 1.2, Triglycerides 162 H, Cholesterol 144, LDL Cholesterol Direct 68, HDL Cholesterol 41 06/10/17 17:50: PT 12.1 H, INR 1.12 H, APTT 31.7 H 06/10/17 17:50: WBC 4.9, RBC 4.22, Hgb 11.8 L D, Hct 36.4 L, MCV 86.3, MCH 28.0 , MCHC 32.4, RDW 16.5 H, Plt Count 219, MPV 11.8 H, Gran % 48.0 L, Lymph % (Auto ) 37.0 H, Millard % (Auto) 7.8 H, Eos % (Auto) 5.1 H, Baso % (Auto) 2.1, Gran # 2.34, Lymph # 1.8, Millard # 0.4, Eos # 0.3, Baso # 0.10 I have reviewed the lab results: Yes - RAD Interpretation Radiology Orders: 06/10/17 17:37 HEAD W/O (CODE STROKE) [CT] Stat CHEST PORTABLE [RAD] Stat - EKG Interpretation Interpreted by ED Physician: Yes Type: 12 lead EKG - Medication Orders Current Medication Orders: Discontinued Medications Amlodipine Besylate (Norvasc) 5 mg PO DAILY [facility] Last Admin: 06/13/17 11:05 Dose: 5 mg MAR Pulse and Blood Pressure Document 06/13/17 11:05 MM (Rec: 06/13/17 11:05 MM [id number]) Pulse Pulse Rate (60-90) 75 Blood Pressure Blood Pressure (100/60-150/90) 153/72 Aspirin (Aspirin) 325 mg PO STAT STA Stop: 06/10/17 18:49 Last Admin: 06/10/17 19:01 Dose: 325 mg Aspirin (Ecotrin) 81 mg PO DAILY [facility] Last Admin: 06/13/17 11:04 Dose: 81 mg Atorvastatin Calcium (Lipitor) 40 mg PO DIN [facility] Last Admin: 06/12/17 18:39 Dose: 40 mg Diphenhydramine HCl (Benadryl) 50 mg PO HS PRN PRN Reason: Insomnia Last Admin: 06/13/17 00:38 Dose: 50 mg Hydralazine HCl (Apresoline) 10 mg IVP STAT [facility] Last Admin: 06/10/17 18:35 Dose: 10 mg IVP Administration Document 06/10/17 18:35 AD (Rec: 06/10/17 18:36 [id number] Charges for Administration # of IVP Administrations 1 MAR Pulse and Blood Pressure Document 06/10/17 18:35 AD (Rec: 06/10/17 18:36 AD [id number] Pulse Pulse Rate (60-90) 82 Blood Pressure Blood Pressure (100/60-150/90) 221/99 Hydralazine HCl (Apresoline) 25 mg PO TID [facility] Last Admin: 06/13/17 11:05 Dose: 25 mg MAR Pulse and Blood Pressure Document 06/13/17 11:05 MM (Rec: 06/13/17 11:05 MM [id number]) Pulse Pulse Rate (60-90) 75 Blood Pressure Blood Pressure (100/60-150/90) 153/72 Hydralazine HCl (Apresoline) 10 mg IVP Q6 PRN PRN Reason: SBP > 170 Last Admin: 06/11/17 06:13 Dose: 10 mg IVP Administration Document 06/11/17 06:13 [facility] (Rec: 06/11/17 06:13 [facility] [id number]) Charges for Administration # of IVP Administrations 1 MAR Pulse and Blood Pressure Document 06/11/17 06:13 [facility] (Rec: 06/11/17 06:13 [facility] [id number]) Pulse Pulse Rate (60-90) 80 Blood Pressure Blood Pressure (100/60-150/90) 182/96 Hydralazine HCl (Apresoline) 10 mg IVP STAT STA Stop: 06/10/17 21:49 Last Admin: 06/10/17 22:01 Dose: 10 mg IVP Administration Document 06/10/17 22:01 MARTIN (Rec: 06/10/17 22:02 MARTIN [id number]) Charges for Administration # of IVP Administrations 1 MAR Pulse and Blood Pressure Document 06/10/17 22:01 MARTIN (Rec: 06/10/17 22:02 MARTIN [id number]) Pulse Pulse Rate (60-90) 80 Blood Pressure Blood Pressure (100/60-150/90) 172/80 Cefepime HCl (Maxipime 1gm) 1 gm in 100 mls @ 100 mls/hr IVPB DAILY [facility] Last Admin: 06/12/17 11:06 Dose: Not Given Non-Admin Reason: Patient in Dialysis Meropenem 500 mg/ Sodium (Chloride) 100 mls @ 100 mls/hr IVPB Q12 [facility]ARYANN PRN Reason: Protocol Stop: 06/26/17 10:16 Last Admin: 06/13/17 11:06 Dose: 100 mls/hr eMAR Start Stop Document 06/13/17 11:06 MM (Rec: 06/13/17 11:06 MM [id number]) Intravenous Solution Start Date 06/13/17 Start Time 11:06 End Date 06/13/17 End time 12:06 Total Infusion Time 60 Insulin Human Lispro (Humalog Med) 0 units SC ACHS MARYANN PRN Reason: Protocol Last Admin: 06/13/17 08:24 Dose: 1 units MAR Blood Glucose Document 06/13/17 08:24 MM (Rec: 06/13/17 08:24 MM [id number]) Blood Glucose Finger Stick Blood Glucose (70-120) 188 Subcutaneous Administrations Document 06/13/17 08:24 MM (Rec: 06/13/17 08:24 MM [id number]) Injection Site MAR Injection Site Right Arm Charges for Administration # of Subcutaneous Administrations 1 Isosorbide Mononitrate (Imdur) 60 mg PO DAILY [facility] Last Admin: 06/13/17 11:04 Dose: 60 mg Losartan Potassium (Cozaar) 100 mg PO DAILY [facility] Last Admin: 06/13/17 11:05 Dose: 100 mg Metoprolol Tartrate (Lopressor) 25 mg PO BID [facility] Last Admin: 06/13/17 11:05 Dose: 25 mg MAR Pulse and Blood Pressure Document 06/13/17 11:05 MM (Rec: 06/13/17 11:05 MM [id number]) Pulse Pulse Rate (60-90) 75 Blood Pressure Blood Pressure (100/60-150/90) 153/72 Pantoprazole Sodium (Protonix Ec Tab) 40 mg PO 0600 [facility] Last Admin: 06/13/17 06:25 Dose: 40 mg Pneumococcal Polyvalent Vaccine (Pneumovax 23 Vaccine) 0.5 ml IM .ONCE ONE Stop: 06/10/17 22:45 Sevelamer HCl (Renagel) 1,600 mg PO WM [facility] Last Admin: 06/13/17 11:05 Dose: 1,600 mg Tamsulosin HCl (Flomax) 0.4 mg PO HS [facility] Last Admin: 06/12/17 22:55 Dose: 0.4 mg Vitamin B Complex/Vit C/Folic Acid (Nephro-Eleni) 1 tab PO 0800 [facility] Last Admin: 06/13/17 08:27 Dose: 1 tab - Scribe Statement The provider has reviewed the documentation as recorded by the Jose Miguelibginny Li Provider Scribe Attestation: All medical record entries made by the Scribe were at my direction and personally dictated by me. I have reviewed the chart and agree that the record accurately reflects my personal performance of the history, physical exam, medical decision making, and the department course for this patient. I have also personally directed, reviewed, and agree with the discharge instructions and disposition. Disposition/Present on Arrival - Present on Arrival Any Indicators Present on Arrival: No History of DVT/PE: No History of Uncontrolled Diabetes: No Urinary Catheter: Yes (Placed 05/15/17) History of Decub. Ulcer: No History Surgical Site Infection Following: None - Disposition Have Diagnosis and Disposition been Completed?: Yes Diagnosis: Altered mental status, unspecified Disposition: HOSPITALIZED Disposition Time: 07:00 Condition: FAIR
[2017-06-10 18:24] LABS: BASO # 0.1 K/mm3 (0.0-2.0); BASO % 2.1 % (0.0-3.0); EOS # 0.3 (0.0-0.7); EOS % 5.1 % (1.5-5.0); GRAN # 2.34 (1.4-6.5); HEMATOCRIT 36.4 % (42.0-52.0); LYMPH # 1.8 (1.2-3.4); MEAN CELL VOLUME 86.3 fl (80.0-105.0); MEAN CORPUSCULAR HGB CONC 32.4 g/dl (31.0-37.0); MEAN PLATELET VOLUME 11.8 fl (7.0-11.0); MONO # 0.4 (0.1-0.6); MONO % 7.8 % (1.0-6.0); RED CELL DISTRIBUTION WIDTH 16.5 % (11.5-14.5); WHITE BLOOD COUNT 4.9 10^3/ul (4.5-11.0)
[2017-06-10 18:27] LABS: VENOUS BLOOD PH 7.36 (7.32-7.43)
[2017-06-10 18:35] LABS: ALB/GLOB RATIO 1.2 (1.1-1.8); BILIRUBIN,TOTAL 0.9 mg/dL (0.2-1.3); CALCIUM 9.9 mg/dL (8.4-10.5); POTASSIUM 4.9 mmol/L (3.6-5.0); TOTAL PROTEIN 8.5 g/dL (5.8-8.3)
[2017-06-10 18:39] LABS: INR 1.12 (0.93-1.08); PARTIAL THROMBOPLASTIN TIME 31.7 Seconds (23.7-30.8)
[2017-06-10 18:46] LABS: TROPONIN I 0.02 ng/mL
--- NOTE | 2017-06-10 19:07 | CP.PCM.HP ---
<Michael Menjivar - Last Filed: 06/10/17 19:17> History of Present Illness - History of Present Illness History of Present Illness: Subjective: CC: AMS HPI: Patient is a 56 year old male with past medical history of ESRD on HD MWF, CAD, HTN, [place] x 3, DM with gastroparesis, peripheral neuropathy, CABG presents to the ED for evaluation and treatment of AMS. Patient is confused and repeats "I do not know" to most questions. As per ED chart, EMS stated the patient was on the phone with a friend and began acting confused and slurred speech. Denies f/c/cp/ sob/abdominal pain/n/v/d/c/urinary sxs. PCP: Dr Mack Allergies: Morphine, seafood Medications: Please see MAR Medical Hx: ESRD, CAD, HTN, DM, peripheral neuropathy Surgical Hx: Stents x 3, CABG, left hip surgery, Left knee surgery, Right foot partial amputation Social Hx: Denies recent tobacco, etoh ID: THC use in recent past, lives with roomate, ambulates with assistance of walker Family Hx: non-contributory Physical Examination: - Constitutional Appears: Non-toxic, No Acute Distress - Head Exam Head Exam: ATRAUMATIC, NORMAL INSPECTION - Eye Exam Eye Exam: EOMI, Normal appearance Pupil Exam: NORMAL ACCOMODATION, PERRL - ENT Exam ENT Exam: Mucous Membranes Moist - Neck Exam Neck Exam: Full ROM - Respiratory Exam Respiratory Exam: Clear to Ausculation Bilateral, NORMAL BREATHING PATTERN. absent: Rales, Rhonchi, Wheezes - Cardiovascular Exam Cardiovascular Exam: REGULAR RHYTHM, +S1, +S2 - GI/Abdominal Exam GI & Abdominal Exam: Soft. absent: Guarding, Rigid, Tenderness, Rebound - Extremities Exam Extremities Exam: absent: Calf Tenderness Additional comments: R transmetatarsal amputation - Back Exam Back Exam: NORMAL INSPECTION - Neurological Exam Neurological Exam: Alert, Awake, Oriented x 1, responds to verbal stimuli, follows commands, and moves extremities past midline - Psychiatric Exam Psychiatric exam: Normal Affect, Normal Mood - Skin Skin Exam: Normal Color, Warm Assessment and Plan: Patient is a 56 year old male with past medical history of ESRD on HD MWF, CAD, HTN, TX x 3, DM with gastroparesis, peripheral neuropathy, CABG presents to the ED for evaluation and treatment of AMS Hypertensive Emergency; AMS - BP in ED 220s/125 - troponins x 3 - aspirin and hydralazine given in ED - head CT- reviewed and appeciated- No acute intracranial hemorrhage. Mild chronic periventricular white matter ischemic changes and scattered deep and subcortical white matter ischemic changes. Age-indeterminate small infarct right thalamus. There are additional smaller lacunar type infarcts scattered about both basal nuclei. Probable dilated perivascular space left inferolateral basal ganglia. Moderate generalized volume loss - continue home aspirin, lipitor - as per attending continue home hydralazine, imdur, losartan, loppressor, and prn hydralazine 5mg IV mg - neurology consult- appreciate recommendations ESRD on HD - nephrology consult for HD-appreciate recs - creatinine is 7 today - ABG reviwed- patient is not acidotic Hx of Sepsis/Bacteremia 2/2 infected Permacath with septic lung emboli - previous visit the patient was found to be bacteremic with Pseudomonas - continue IV cefepime 1 gram IVPB daily Anemic - Hgb stable and better than baseline 11.8 - monitor closely via daily CBC Urinary Retention - continue flomax Hx of CAD, TX x 3 - as per attending physician continue aspirin, statin, imdur Hx of DM - hold home diabetics meds - accuchecks ACHS - ISS Prophylaxis - scds - protonix Patient seen, case discussed with, and plan approved by attending physician, Dr. Celaya. Present on Admission - Present on Admission Any Indicators Present on Admission: Yes Past Patient History - Infectious Disease Hx of Infectious Diseases: None - Tetanus Immunizations Tetanus Immunization: Unknown - Past Medical History & Family History Past Medical History?: Yes - Past Social History Smoking Status: Never Smoked - CARDIAC Hx Cardiac Disorders: Yes (CAD, [place] x 3, CABG x 3) Hx Hypertension: Yes - PULMONARY Hx Respiratory Disorders: Yes Other/Comment: PULMONARY EDEMA - NEUROLOGICAL HX Cerebrovascular Accident: Yes - HEENT Hx HEENT Problems: Yes (CONTACT LENSES) - RENAL Hx Renal Failure: Yes (HD MWF) - ENDOCRINE/METABOLIC Hx Diabetes Mellitus Type 2: Yes - HEMATOLOGICAL/ONCOLOGICAL Hx Blood Disorders: No - INTEGUMENTARY Hx Dermatological Problems: Yes Other/Comment: righty lower ext rash, pt stated "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" - MUSCULOSKELETAL/RHEUMATOLOGICAL Hx Musculoskeletal Disorders: No Hx Falls: Yes Other/Comment: generalized weakness - GASTROINTESTINAL Hx Gastrointestinal Disorders: No - GENITOURINARY/GYNECOLOGICAL Hx Urinary Tract Infection: Yes - PSYCHIATRIC Hx Psychophysiologic Disorder: No Hx Depression: No Hx Emotional Abuse: No Hx Physical Abuse: No Hx Substance Use: Yes - SURGICAL HISTORY Hx Amputation: Yes (R toes) Hx Cardiac Catheterization: Yes (09/09) Hx Coronary Stent: Yes Hx Open Heart Surgery: Yes (12-26-12) Other/Comment: temporary dialysis catheter. ERIC PICC line - ANESTHESIA Hx Anesthesia: Yes Hx Anesthesia Reactions: No Hx Malignant Hyperthermia: No Meds Allergies/Adverse Reactions: Allergies Allergy/AdvReac Type Severity Reaction Status Date / Time Seafood Allergy ANAPHYLAXIS Uncoded 05/29/17 18:46 Results - Vital Signs Recent Vital Signs: Last Vital Signs Temp Pulse 85 06/10/17 19:02 Resp 18 06/10/17 19:02 BP 200/125 H 06/10/17 19:02 Pulse Ox 98 06/10/17 19:02 - Labs Result Diagrams: 06/10/17 17:50 06/10/17 17:50 Labs: Laboratory Results - last 24 hr 06/10/17 06/10/17 06/10/17 17:50 17:50 17:50 WBC 4.9 RBC 4.22 Hgb 11.8 L D Hct 36.4 L MCV 86.3 MCH 28.0 MCHC 32.4 RDW 16.5 H Plt Count 219 MPV 11.8 H Gran % 48.0 L Lymph % (Auto) 37.0 H Hudspeth % (Auto) 7.8 H Eos % (Auto) 5.1 H Baso % (Auto) 2.1 Gran # 2.34 Lymph # 1.8 Hudspeth # 0.4 Eos # 0.3 Baso # 0.10 PT 12.1 H INR 1.12 H APTT 31.7 H pO2 VBG pH VBG pCO2 VBG HCO3 VBG Total CO2 VBG O2 Sat (Calc) VBG Base Excess VBG Potassium Sodium 141 Chloride 100 Glucose Lactate FiO2 Potassium 4.9 Carbon Dioxide 25 Anion Gap 21 H BUN 53 H Creatinine 7.0 H Est GFR ( Amer) 10 Est GFR (Non-Af Amer) 8 Random Glucose 112 H Calcium 9.9 Total Bilirubin 0.9 AST 32 ALT 28 Alkaline Phosphatase 113 Troponin I 0.02 D Total Protein 8.5 H Albumin 4.7 Globulin 3.8 Albumin/Globulin Ratio 1.2 Triglycerides 162 H Cholesterol 144 LDL Cholesterol Direct 68 HDL Cholesterol 41 Venous Blood Potassium 06/10/17 17:50 WBC RBC Hgb Hct MCV MCH MCHC RDW Plt Count MPV Gran % Lymph % (Auto) Hudspeth % (Auto) Eos % (Auto) Baso % (Auto) Gran # Lymph # Hudspeth # Eos # Baso # PT INR APTT pO2 34 VBG pH 7.36 VBG pCO2 48.0 VBG HCO3 27.1 VBG Total CO2 28.6 H VBG O2 Sat (Calc) 69.4 H VBG Base Excess 1.0 VBG Potassium 5.4 H Sodium 139.0 Chloride 104.0 Glucose 110 Lactate 1.9 FiO2 21.0 Potassium Carbon Dioxide Anion Gap BUN Creatinine Est GFR ( Amer) Est GFR (Non-Af Amer) Random Glucose Calcium Total Bilirubin AST ALT Alkaline Phosphatase Troponin I Total Protein Albumin Globulin Albumin/Globulin Ratio Triglycerides Cholesterol LDL Cholesterol Direct HDL Cholesterol Venous Blood Potassium 5.4 H <Rachelle Celaya - Last Filed: 06/12/17 02:20> Results - Vital Signs Recent Vital Signs: Last Vital Signs Temp 98.2 F 06/12/17 00:01 Pulse 64 06/12/17 00:01 Resp 20 06/12/17 00:01 BP 187/90 H 06/12/17 00:01 Pulse Ox 97 06/12/17 00:01 - Labs Result Diagrams: 06/11/17 07:34 06/11/17 07:34 Labs: Laboratory Results - last 24 hr 06/11/17 06/11/17 06/11/17 07:30 07:34 07:34 WBC 4.5 RBC 4.01 Hgb 11.0 L Hct 34.4 L MCV 85.8 MCH 27.4 MCHC 32.0 RDW 16.7 H Plt Count 221 MPV 11.8 H Gran % 49.1 L Lymph % (Auto) 35.0 Hudspeth % (Auto) 8.4 H Eos % (Auto) 4.6 Baso % (Auto) 2.9 Gran # 2.22 Lymph # 1.6 Hudspeth # 0.4 Eos # 0.2 Baso # 0.13 Sodium 143 Potassium 4.2 Chloride 103 Carbon Dioxide 24 Anion Gap 20 BUN 52 H Creatinine 7.3 H Est GFR ( Amer) 9 Est GFR (Non-Af Amer) 8 POC Glucose (mg/dL) 111 H Random Glucose 116 H Calcium 9.6 Phosphorus 4.8 H Magnesium 1.9 Total Bilirubin 0.6 AST 28 ALT 32 Alkaline Phosphatase 104 Troponin I 0.05 D Total Protein 7.2 Albumin 3.9 Globulin 3.3 Albumin/Globulin Ratio 1.2 Urine Color Urine Appearance Urine pH Ur Specific Dimock Urine Protein Urine Glucose (UA) Urine Ketones Urine Blood Urine Nitrate Urine Bilirubin Urine Urobilinogen Ur Leukocyte Esterase Urine RBC Urine WBC Ur Epithelial Cells Urine Bacteria Urine Opiates Screen Urine Methadone Screen Ur Barbiturates Screen Ur Phencyclidine Scrn Ur Amphetamines Screen U Benzodiazepines Scrn U Oth Cocaine Metabols U Cannabinoids Screen 06/11/17 06/11/17 06/11/17 11:05 15:00 15:00 WBC RBC Hgb Hct MCV MCH MCHC RDW Plt Count MPV Gran % Lymph % (Auto) Hudspeth % (Auto) Eos % (Auto) Baso % (Auto) Gran # Lymph # Hudspeth # Eos # Baso # Sodium Potassium Chloride Carbon Dioxide Anion Gap BUN Creatinine Est GFR ( Amer) Est GFR (Non-Af Amer) POC Glucose (mg/dL) 130 H Random Glucose Calcium Phosphorus Magnesium Total Bilirubin AST ALT Alkaline Phosphatase Troponin I Total Protein Albumin Globulin Albumin/Globulin Ratio Urine Color Yellow Urine Appearance Sl cloudy Urine pH 7.5 Ur Specific Dimock 1.020 Urine Protein >=300 H Urine Glucose (UA) 250 H Urine Ketones 15 H Urine Blood Small H Urine Nitrate Negative Urine Bilirubin Negative Urine Urobilinogen 0.2 Ur Leukocyte Esterase Moderate H Urine RBC 1 - 3 Urine WBC 15 - 20 Ur Epithelial Cells 0 - 2 Urine Bacteria Many Urine Opiates Screen Negative Urine Methadone Screen Negative Ur Barbiturates Screen Negative Ur Phencyclidine Scrn Negative Ur Amphetamines Screen Negative U Benzodiazepines Scrn Positive H U Oth Cocaine Metabols Negative U Cannabinoids Screen Positive H 06/11/17 06/11/17 16:09 21:47 WBC RBC Hgb Hct MCV MCH MCHC RDW Plt Count MPV Gran % Lymph % (Auto) Hudspeth % (Auto) Eos % (Auto) Baso % (Auto) Gran # Lymph # Hudspeth # Eos # Baso # Sodium Potassium Chloride Carbon Dioxide Anion Gap BUN Creatinine Est GFR ( Amer) Est GFR (Non-Af Amer) POC Glucose (mg/dL) 154 H 178 H Random Glucose Calcium Phosphorus Magnesium Total Bilirubin AST ALT Alkaline Phosphatase Troponin I Total Protein Albumin Globulin Albumin/Globulin Ratio Urine Color Urine Appearance Urine pH Ur Specific Dimock Urine Protein Urine Glucose (UA) Urine Ketones Urine Blood Urine Nitrate Urine Bilirubin Urine Urobilinogen Ur Leukocyte Esterase Urine RBC Urine WBC Ur Epithelial Cells Urine Bacteria Urine Opiates Screen Urine Methadone Screen Ur Barbiturates Screen Ur Phencyclidine Scrn Ur Amphetamines Screen U Benzodiazepines Scrn U Oth Cocaine Metabols U Cannabinoids Screen Attending/Attestation - Attestation I have personally seen and examined this patient.: Yes I have fully participated in the care of the patient.: Yes I have reviewed all pertinent clinical information: Yes Notes (Text): 06/12/17 02:19 Patient was seen when he was in the ER. Agree with history , physical examination, assessment and plan.
[2017-06-10 22:44] VITALS: BMI 15.3
[2017-06-10] MEDS ORDERED: Pneumococcal 23-Valent Vaccine IM ONE (22:44)
[2017-06-10] MEDS ORDERED: Influenza Vaccine 60 mcg/0.5 mL SYR (4YR UP) IM ONE (22:44)
[2017-06-10] MEDS: Insulin Lispro (humaLOG) MEDIUM Coverage SC SCH (23:35)
[2017-06-11] MEDS: Pantoprazole 40 mg EC Tab PO SCH (06:55)
[2017-06-11 07:45] LABS: BASO # 0.13 K/mm3 (0.0-2.0); BASO % 2.9 % (0.0-3.0); EOS # 0.2 (0.0-0.7); EOS % 4.6 % (1.5-5.0); GRAN # 2.22 (1.4-6.5); GRAN % 49.1 % (50.0-68.0); HEMATOCRIT 34.4 % (42.0-52.0); LYMPH # 1.6 (1.2-3.4); MEAN CELL VOLUME 85.8 fl (80.0-105.0); MEAN CORPUSCULAR HEMOGLOBIN 27.4 pg (25.0-35.0); MEAN PLATELET VOLUME 11.8 fl (7.0-11.0); MONO # 0.4 (0.1-0.6); MONO % 8.4 % (1.0-6.0); RED CELL DISTRIBUTION WIDTH 16.7 % (11.5-14.5); WHITE BLOOD COUNT 4.5 10^3/ul (4.5-11.0)
[2017-06-11 07:58] LABS: ALB/GLOB RATIO 1.2 (1.1-1.8); BILIRUBIN,TOTAL 0.6 mg/dL (0.2-1.3); CALCIUM 9.6 mg/dL (8.4-10.5); MAGNESIUM 1.9 mg/dL (1.7-2.2); PHOSPHOROUS 4.8 mg/dL (2.5-4.5); POTASSIUM 4.2 mmol/L (3.6-5.0); TOTAL PROTEIN 7.2 g/dL (5.8-8.3)
[2017-06-11 08:04] LABS: TROPONIN I 0.05 ng/mL
[2017-06-11] MEDS: Insulin Lispro (humaLOG) MEDIUM Coverage SC SCH ×4 (08:22→22:19)
[2017-06-11] MEDS: Multivitamin Vitamin B Complex (Nephro-Vite) Tab PO SCH (08:38)
[2017-06-11] MEDS ORDERED: NS IVPB SCH (10:00)
[2017-06-11] MEDS ORDERED: CEFEPIME IVPB SCH (10:00)
--- NOTE | 2017-06-11 11:35 | CP.PCM.PN ---
<SatishStellan - Last Filed: 06/11/17 11:37> Subjective - Date & Time of Evaluation Date of Evaluation: 06/11/17 Time of Evaluation: 09:33 - Subjective Subjective: Patient seen and examined at bedside. Per nursing no acute events overnight. The patient reports feeling better today. The patient still can't recall the reason he came into the hospital today. The patient denies any chest pain, shortness of breath, nausea, vomiting, changes in vision, abdominal pain, or any other complaints. Objective - Vital Signs/Intake and Output Vital Signs (last 24 hours): Temp Pulse Resp BP Pulse Ox 98.7 F 80 20 182/96 H 97 06/11/17 06:00 06/11/17 06:13 06/11/17 06:00 06/11/17 06:13 06/11/17 06:00 Intake and Output: 06/11/17 06/11/17 06:59 18:59 Output Total 0 Balance 0 - Medications Medications: Current Medications Amlodipine Besylate (Norvasc) 5 mg PO DAILY [facility] Aspirin (Ecotrin) 81 mg PO DAILY [facility] Atorvastatin Calcium (Lipitor) 40 mg PO DIN [facility] Hydralazine HCl (Apresoline) 25 mg PO TID [facility] Hydralazine HCl (Apresoline) 10 mg IVP Q6 PRN PRN Reason: SBP > 170 Last Admin: 06/11/17 06:13 Dose: 10 mg Cefepime HCl (Maxipime 1gm) 1 gm in 100 mls @ 100 mls/hr IVPB DAILY [facility] Insulin Human Lispro (Humalog Med) 0 units SC ACHS [facility] PRN Reason: Protocol Last Admin: 06/11/17 08:22 Dose: Not Given Isosorbide Mononitrate (Imdur) 60 mg PO DAILY [facility] Losartan Potassium (Cozaar) 100 mg PO DAILY [facility] Metoprolol Tartrate (Lopressor) 25 mg PO BID [facility] Pantoprazole Sodium (Protonix Ec Tab) 40 mg PO 0600 [facility] Last Admin: 06/11/17 06:55 Dose: Not Given Sevelamer HCl (Renagel) 1,600 mg PO WM [facility] Last Admin: 06/11/17 08:39 Dose: Not Given Tamsulosin HCl (Flomax) 0.4 mg PO HS [facility] Last Admin: 06/10/17 23:35 Dose: Not Given Vitamin B Complex/Vit C/Folic Acid (Nephro-Eleni) 1 tab PO 0800 [facility] Last Admin: 06/11/17 08:38 Dose: Not Given - Labs Labs: 06/11/17 07:34 06/11/17 07:34 PT 12.1 Seconds (9.9-11.8) H 06/10/17 17:50 INR 1.12 (0.93-1.08) H 06/10/17 17:50 APTT 31.7 Seconds (23.7-30.8) H 06/10/17 17:50 - Head Exam Head Exam: ATRAUMATIC, NORMAL INSPECTION, NORMOCEPHALIC - Eye Exam Eye Exam: EOMI, Normal appearance, PERRL. absent: Periorbital tenderness Pupil Exam: NORMAL ACCOMODATION, PERRL. absent: Irregular, Miosis, Unequal - ENT Exam ENT Exam: Mucous Membranes Moist, Normal Exam. absent: Normal Oropharynx, TM's Normal Bilaterally - Neck Exam Neck Exam: Full ROM, Normal Inspection. absent: Lymphadenopathy, Thyromegaly - Respiratory Exam Respiratory Exam: Clear to Ausculation Bilateral, NORMAL BREATHING PATTERN. absent: Accessory Muscle Use, Chest Wall Tenderness, Prolonged Expiratory Phase , Respiratory Distress - Cardiovascular Exam Cardiovascular Exam: REGULAR RHYTHM, RRR, +S1, +S2. absent: Gallop, Rubs - GI/Abdominal Exam GI & Abdominal Exam: Soft, Normal Bowel Sounds. absent: Tenderness, Hyperactive Bowel Sounds - Extremities Exam Additional comments: Right partial amputation. - Back Exam Back Exam: NORMAL INSPECTION. absent: CVA tenderness (L), CVA tenderness (R), paraspinal tenderness - Neurological Exam Neurological Exam: Alert, Awake, CN II-XII Intact, Normal Gait, Oriented x3 - Psychiatric Exam Psychiatric exam: Normal Affect, Normal Mood. absent: Anxious, Depressed - Skin Skin Exam: Dry, Intact. absent: Urticaria Assessment and Plan - Assessment and Plan (Free Text) Assessment: Patient is a 56 year old male with past medical history of ESRD on HD MWF, CAD, HTN, [place] x 3, DM with gastroparesis, peripheral neuropathy, CABG presents to the ED for evaluation and treatment of AMS Plan: Hypertensive Emergency; AMS - BP in ED 220s/125 - troponins x 2 negative. One troponin indeterminate. Will follow. - aspirin and hydralazine given in ED - head CT- reviewed and appeciated- No acute intracranial hemorrhage. Mild chronic periventricular white matter ischemic changes and scattered deep and subcortical white matter ischemic changes. Age-indeterminate small infarct right thalamus. There are additional smaller lacunar type infarcts scattered about both basal nuclei. Probable dilated perivascular space left inferolateral basal ganglia. Moderate generalized volume loss - continue home aspirin, lipitor - as per attending continue home hydralazine, imdur, losartan, loppressor, and prn hydralazine 5mg IV mg - neurology consulted. Will f/u with rec's tomorrow. ESRD on HD - nephrology consult for HD-appreciate recs - creatinine is 7.3 today - ABG reviwed- patient is not acidotic Hx of Sepsis/Bacteremia 2/2 infected Permacath with septic lung emboli - previous visit the patient was found to be bacteremic with Pseudomonas - continue IV cefepime 1 gram IVPB daily Anemic - Hgb stable and better than baseline 11.0 - monitor closely via daily CBC Urinary Retention - continue flomax Hx of CAD, CA x 3 - as per attending physician continue aspirin, statin, imdur Hx of DM - hold home diabetics meds - accuchecks ACHS - ISS Prophylaxis - scds - protonix <Jennifer Ritter - Last Filed: 06/11/17 18:17> Objective - Vital Signs/Intake and Output Vital Signs (last 24 hours): Temp Pulse Resp BP Pulse Ox 97.9 F 85 20 150/92 H 97 06/11/17 12:00 06/11/17 14:09 06/11/17 12:00 06/11/17 14:09 06/11/17 06:00 Intake and Output: 06/11/17 06/11/17 06:59 18:59 Intake Total 240 Output Total 0 1000 Balance 0 -760 - Medications Medications: Current Medications Amlodipine Besylate (Norvasc) 5 mg PO DAILY [facility] Last Admin: 06/11/17 11:47 Dose: Not Given Aspirin (Ecotrin) 81 mg PO DAILY [facility] Last Admin: 06/11/17 11:46 Dose: Not Given Atorvastatin Calcium (Lipitor) 40 mg PO DIN [facility] Hydralazine HCl (Apresoline) 25 mg PO TID [facility] Last Admin: 06/11/17 14:09 Dose: 25 mg Hydralazine HCl (Apresoline) 10 mg IVP Q6 PRN PRN Reason: SBP > 170 Last Admin: 06/11/17 06:13 Dose: 10 mg Cefepime HCl (Maxipime 1gm) 1 gm in 100 mls @ 100 mls/hr IVPB DAILY [facility] Last Admin: 06/11/17 12:37 Dose: 100 mls/hr Insulin Human Lispro (Humalog Med) 0 units SC ACHS [facility] PRN Reason: Protocol Last Admin: 06/11/17 11:47 Dose: Not Given Isosorbide Mononitrate (Imdur) 60 mg PO DAILY [facility] Last Admin: 06/11/17 11:47 Dose: Not Given Losartan Potassium (Cozaar) 100 mg PO DAILY [facility] Last Admin: 06/11/17 11:46 Dose: Not Given Metoprolol Tartrate (Lopressor) 25 mg PO BID [facility] Last Admin: 06/11/17 11:47 Dose: Not Given Pantoprazole Sodium (Protonix Ec Tab) 40 mg PO 0600 [facility] Last Admin: 06/11/17 06:55 Dose: Not Given Sevelamer HCl (Renagel) 1,600 mg PO WM [facility] Last Admin: 06/11/17 11:47 Dose: Not Given Tamsulosin HCl (Flomax) 0.4 mg PO HS [facility] Last Admin: 06/10/17 23:35 Dose: Not Given Vitamin B Complex/Vit C/Folic Acid (Nephro-Eleni) 1 tab PO 0800 [facility] Last Admin: 06/11/17 08:38 Dose: Not Given - Labs Labs: 06/11/17 07:34 06/11/17 07:34 PT 12.1 Seconds (9.9-11.8) H 06/10/17 17:50 INR 1.12 (0.93-1.08) H 06/10/17 17:50 APTT 31.7 Seconds (23.7-30.8) H 06/10/17 17:50 Attending/Attestation - Attestation I have personally seen and examined this patient.: Yes I have fully participated in the care of the patient.: Yes I have reviewed all pertinent clinical information, including history, physical exam and plan: Yes Notes (Text): 06/11/17 18:12 56 year old male with past medical history of ESRD on HD, CAD, hypertension, diabetes and recent admission for bacteremia secondary to infected permacath with septic lung emboli who presented yesterday with altered mental status likely secondary to hypertension emergency +/- UTI. Also unclear if he missed recent dialysis sessions. CT heaq was negative for acute findings. His mental status has improved. Continue with iv antibiotics while awaiting urine culture. Neurology and ID evaluation were requested as well in addition to nephrology for HD. Jennifer Ritter MD Hospitalist.
--- NOTE | 2017-06-11 11:39 | CP.PCM.DIS ---
Provider - Provider Date of Admission: 06/10/17 18:56 Attending physician: Jennifer Ritter MD Primary care physician: Mercedez Parekh MD Time Spent in preparation of Discharge (in minutes): 38 Hospital Course - Lab Results Lab Results: Most Recent Lab Values WBC 4.5 10^3/ul (4.5-11.0) 06/11/17 07:34 RBC 4.01 10^6/uL (3.5-6.1) 06/11/17 07:34 Hgb 11.0 g/dL (14.0-18.0) L 06/11/17 07:34 Hct 34.4 % (42.0-52.0) L 06/11/17 07:34 MCV 85.8 fl (80.0-105.0) 06/11/17 07:34 MCH 27.4 pg (25.0-35.0) 06/11/17 07:34 MCHC 32.0 g/dl (31.0-37.0) 06/11/17 07:34 RDW 16.7 % (11.5-14.5) H 06/11/17 07:34 Plt Count 221 10^3/uL (120.0-450.0) 06/11/17 07:34 MPV 11.8 fl (7.0-11.0) H 06/11/17 07:34 Gran % 49.1 % (50.0-68.0) L 06/11/17 07:34 Lymph % (Auto) 35.0 % (22.0-35.0) 06/11/17 07:34 Carver % (Auto) 8.4 % (1.0-6.0) H 06/11/17 07:34 Eos % (Auto) 4.6 % (1.5-5.0) 06/11/17 07:34 Baso % (Auto) 2.9 % (0.0-3.0) 06/11/17 07:34 Gran # 2.22 (1.4-6.5) 06/11/17 07:34 Lymph # 1.6 (1.2-3.4) 06/11/17 07:34 Carver # 0.4 (0.1-0.6) 06/11/17 07:34 Eos # 0.2 (0.0-0.7) 06/11/17 07:34 Baso # 0.13 K/mm3 (0.0-2.0) 06/11/17 07:34 PT 12.1 Seconds (9.9-11.8) H 06/10/17 17:50 INR 1.12 (0.93-1.08) H 06/10/17 17:50 APTT 31.7 Seconds (23.7-30.8) H 06/10/17 17:50 pO2 34 mm/Hg (30-55) 06/10/17 17:50 VBG pH 7.36 (7.32-7.43) 06/10/17 17:50 VBG pCO2 48.0 (40-60) 06/10/17 17:50 VBG HCO3 27.1 mmol/l (21-28) 06/10/17 17:50 VBG Total CO2 28.6 mmol.L (22-28) H 06/10/17 17:50 VBG O2 Sat (Calc) 69.4 % (40-65) H 06/10/17 17:50 VBG Base Excess 1.0 mmol/L (0.0-2.0) 06/10/17 17:50 VBG Potassium 5.4 mmol/L (3.6-5.2) H 06/10/17 17:50 Sodium 139.0 mmol/L (132-148) 06/10/17 17:50 Chloride 104.0 mmol/L (98-107) 06/10/17 17:50 Glucose 110 mg/dl (75-110) 06/10/17 17:50 Lactate 1.9 mmol/L (0.7-2.1) 06/10/17 17:50 FiO2 21.0 % 06/10/17 17:50 Sodium 143 mmol/L (132-148) 06/11/17 07:34 Potassium 4.2 mmol/L (3.6-5.0) 06/11/17 07:34 Chloride 103 mmol/L (98-107) 06/11/17 07:34 Carbon Dioxide 24 mmol/L (21-33) 06/11/17 07:34 Anion Gap 20 (10-20) 06/11/17 07:34 BUN 52 mg/dL (7-21) H 06/11/17 07:34 Creatinine 7.3 mg/dL (0.8-1.5) H 06/11/17 07:34 Est GFR ( Amer) 9 06/11/17 07:34 Est GFR (Non-Af Amer) 8 06/11/17 07:34 POC Glucose (mg/dL) 130 mg/dL (65-110) H 06/11/17 11:05 Random Glucose 116 mg/dL (70-110) H 06/11/17 07:34 Calcium 9.6 mg/dL (8.4-10.5) 06/11/17 07:34 Phosphorus 4.8 mg/dL (2.5-4.5) H 06/11/17 07:34 Magnesium 1.9 mg/dL (1.7-2.2) 06/11/17 07:34 Total Bilirubin 0.6 mg/dL (0.2-1.3) 06/11/17 07:34 AST 28 U/L (17-59) 06/11/17 07:34 ALT 32 U/L (7-56) 06/11/17 07:34 Alkaline Phosphatase 104 U/L (38-126) 06/11/17 07:34 Troponin I 0.05 ng/mL D 06/11/17 07:34 Total Protein 7.2 g/dL (5.8-8.3) 06/11/17 07:34 Albumin 3.9 g/dL (3.0-4.8) 06/11/17 07:34 Globulin 3.3 gm/dL 06/11/17 07:34 Albumin/Globulin Ratio 1.2 (1.1-1.8) 06/11/17 07:34 Triglycerides 162 mg/dL (35-160) H 06/10/17 17:50 Cholesterol 144 mg/dL (130-200) 06/10/17 17:50 LDL Cholesterol Direct 68 mg/dL (0-129) 06/10/17 17:50 HDL Cholesterol 41 mg/dL (29-60) 06/10/17 17:50 Venous Blood Potassium 5.4 mmol/L (3.6-5.2) H 06/10/17 17:50 - Hospital Course Hospital Course: Patient is a 56 year old male with past medical history of ESRD on HD MWF, CAD, HTN, [place] x 3, DM with gastroparesis, peripheral neuropathy, CABG presents to the ED for evaluation and treatment of AMS. Patient is confused and repeats "I do not know" to most questions. As per ED chart, EMS stated the patient was on the phone with a friend and began acting confused and slurred speech. Denies f/c/cp/ sob/abdominal pain/n/v/d/c/urinary sxs. While admitted to the hospital the patient was seen by Neurology and Nephrology. The patient had a head ct done that showed no acute intracranial hemorrhage. It also showed mild chronic periventricular white matter changes and scattered deep and subcortical white matter ischemic changes, age indeterminate small infarct right thalamus, small lacunar type infarcts scattered about both basal nuclei, and probably dilated perivascular space left inferolateral basal ganglia. The patient was discharged with instructions to follow up with PMD within one week of discharge. Discharge Exam - Head Exam Head Exam: ATRAUMATIC, NORMAL INSPECTION, NORMOCEPHALIC - Eye Exam Eye Exam: EOMI, Normal appearance, PERRL Pupil Exam: NORMAL ACCOMODATION, PERRL. absent: Miosis, Mydriatic - ENT Exam ENT Exam: Mucous Membranes Moist, Normal Exam, Normal Oropharynx - Neck Exam Neck exam: Normal Inspection, Tenderness - Respiratory Exam Respiratory Exam: Clear to PA & Lateral, NORMAL BREATHING PATTERN, UNREMARKABLE. absent: Accessory Muscle Use, Chest Wall Tenderness, Prolonged Expiratory Phase, Respiratory Distress - Cardiovascular Exam Cardiovascular Exam: REGULAR RHYTHM, RRR, +S1, +S2. absent: Gallop, Rubs - GI/Abdominal Exam GI & Abdominal Exam: Normal Bowel Sounds, Unremarkable. absent: Hypoactive Bowel Sounds, Organomegaly - Extremities Exam Extremities exam: full ROM - Back Exam Back exam: NORMAL INSPECTION, paraspinal tenderness. absent: CVA tenderness (L) , CVA tenderness (R) - Neurological Exam Neurological exam: Alert, CN II-XII Intact, Normal Gait, Oriented x3, Reflexes Normal - Psychiatric Exam Psychiatric exam: Normal Affect, Normal Mood - Skin Skin Exam: Dry, Intact, Normal Color Discharge Plan - Follow Up Plan Condition: GOOD Disposition: HOME/ ROUTINE Referrals: Mercedez Parekh MD [Primary Care Provider] -
--- NOTE | 2017-06-11 12:12 | RAD ---
HISTORY: code stroke COMPARISON: Comparison chest 05/29/2017 pain MOJGAN FINDINGS: Interval placement of right IJ dialysis catheter with tips in the SVC as well as left subclavian PICC line with tip in the SVC seen. There has been removal left IJ dialysis catheter. LUNGS: Atelectasis and or scarring changes left upper lobe again noted. PLEURA: No significant pleural effusion identified, no pneumothorax apparent. CARDIOVASCULAR: Sternotomy wires and CABG clips again noted. Cardiomegaly. OSSEOUS STRUCTURES: No significant abnormalities. VISUALIZED UPPER ABDOMEN: Normal. OTHER FINDINGS: None. IMPRESSION: Left sided PICC line and right IJ dialysis catheter new since prior study. Interval removal left IJ dialysis catheter. Linear atelectasis and or scarring left upper lobe. Cardiomegaly.
[2017-06-11] MEDS: Cefepime 1gm in NS 100ml 1 GM/100 ML BAG IVPB SCH (12:37)
[2017-06-11 15:23] LABS: PH,URINE 7.5 (4.7-8.0); URINE BILIRUBIN NEGATIVE (NEGATIVE); URINE BLOOD SMALL (NEGATIVE); URINE GLUCOSE (UA) 250 mg/dL (NEGATIVE); URINE KETONE 15 mg/dL (NEGATIVE); URINE LEUKOCYTE ESTERASE MODERATE Leu/uL (NEGATIVE); URINE PROTEIN >=300 mg/dL (<30 mg/dL); URINE UROBILINOGEN 0.2 E.U./dL (<1 E.U./dL)
[2017-06-11 15:34] LABS: URINE APPEARANCE SL CLOUDY (CLEAR); URINE COLOR YELLOW (YELLOW)
[2017-06-11 15:46] LABS: URINE BACTERIA MANY (NEG); URINE EPITHELIAL CELLS 0 - 2 /hpf (0-5); URINE WBC 15 - 20 /hpf (0-6)
[2017-06-12] MEDS: Pantoprazole 40 mg EC Tab PO SCH (05:15)
[2017-06-12 05:50] LABS: BASO # 0.08 K/mm3 (0.0-2.0); BASO % 1.3 % (0.0-3.0); EOS # 0.2 (0.0-0.7); EOS % 3.8 % (1.5-5.0); GRAN # 3.81 (1.4-6.5); GRAN % 60.6 % (50.0-68.0); HEMATOCRIT 32.9 % (42.0-52.0); LYMPH # 1.7 (1.2-3.4); LYMPH % 26.8 % (22.0-35.0); MEAN CELL VOLUME 85.7 fl (80.0-105.0); MEAN CORPUSCULAR HEMOGLOBIN 27.9 pg (25.0-35.0); MEAN CORPUSCULAR HGB CONC 32.5 g/dl (31.0-37.0); MEAN PLATELET VOLUME 11.1 fl (7.0-11.0); MONO # 0.5 (0.1-0.6); MONO % 7.5 % (1.0-6.0); RED CELL DISTRIBUTION WIDTH 16.8 % (11.5-14.5); WHITE BLOOD COUNT 6.3 10^3/ul (4.5-11.0)
[2017-06-12 06:01] LABS: ALB/GLOB RATIO 1.3 (1.1-1.8); BILIRUBIN,TOTAL 0.6 mg/dL (0.2-1.3); CALCIUM 9.1 mg/dL (8.4-10.5); POTASSIUM 3.9 mmol/L (3.6-5.0); TOTAL PROTEIN 6.7 g/dL (5.8-8.3)
[2017-06-12] MEDS: Insulin Lispro (humaLOG) MEDIUM Coverage SC SCH ×4 (08:10→22:56)
[2017-06-12] MEDS: Multivitamin Vitamin B Complex (Nephro-Vite) Tab PO SCH (08:10)
--- NOTE | 2017-06-12 09:19 | CP.PCM.CON ---
<Flores Cardenas - Last Filed: 06/12/17 11:46> History of Present Illness - History of Present Illness History of Present Illness: Neurology Consult Note for Jonh Jurado PGY2 Reason for consult: AMS This is a 56Y M with PMH CAD, HTN, uncontrolled DM, ESRD on HD as well as medication noncompliance who came to ED for AMS. Upon arrival patient was very confused and was unable to answer questions. Patient reports he has not been going to dialysis upon his last d/c on 06/06/17. He missed both Monday and Monday dialysis days. According to the ED records, his friend reports that the patient was having some slurred speech. This morning patient is A&O x 3. He reports he feels well and denies having any CP, SOB, n/v/d, numbness/tingling, fever or chills, vision changes or weakness. In ED, patient found to have elevated creatinine. Head CT was noted to be negative for acute changes. PMH: CAD, HTN, uncontrolled DM, ESRD on HD as well as medication noncompliance PSH: CABG, stent x 3, L knee surgery, L hip surgery, R transmetatarsal toe amputations Home meds: As per OCT All: seafood, Morphine SH: denies tobacco or EtOH use. Does smoke marijuana. Ambulates with walker Review of Systems - Review of Systems All systems: reviewed and no additional remarkable complaints except Review of Systems: + confusion Past Patient History - Infectious Disease Hx of Infectious Diseases: None - Tetanus Immunizations Tetanus Immunization: Unknown - Past Medical History & Family History Past Medical History?: Yes - Past Social History Smoking Status: Unknown If Ever Smoked Alcohol: None Drugs: Cannabis Home Situation {Lives}: Friends - CARDIAC Hx Cardiac Disorders: Yes Hx Hypertension: Yes - PULMONARY Hx Respiratory Disorders: Yes Other/Comment: PULMONARY EDEMA - NEUROLOGICAL HX Cerebrovascular Accident: Yes (L sidede weakness) - HEENT Hx HEENT Problems: Yes (CONTACT LENSES) - RENAL Hx Renal Failure: Yes - ENDOCRINE/METABOLIC Hx Diabetes Mellitus Type 2: Yes - HEMATOLOGICAL/ONCOLOGICAL Hx Blood Disorders: No - INTEGUMENTARY Hx Dermatological Problems: Yes Other/Comment: righty lower ext rash, pt stated "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" - MUSCULOSKELETAL/RHEUMATOLOGICAL Hx Musculoskeletal Disorders: No Hx Falls: Yes Other/Comment: generalized weakness - GASTROINTESTINAL Hx Gastrointestinal Disorders: No - GENITOURINARY/GYNECOLOGICAL Hx Genitourinary Disorders: Yes Hx Urinary Tract Infection: Yes - PSYCHIATRIC Hx Psychophysiologic Disorder: No Hx Depression: No Hx Emotional Abuse: No Hx Physical Abuse: No Hx Substance Use: Yes (THC USE IN THE PAST) - SURGICAL HISTORY Hx Surgeries: Yes Hx Amputation: Yes (R toes) Hx Cardiac Catheterization: Yes (09/09) Hx Coronary Stent: Yes Hx Open Heart Surgery: Yes (12-26-12) Other/Comment: temporary dialysis catheter. ERIC PICC line - ANESTHESIA Hx Anesthesia: Yes Hx Anesthesia Reactions: No Hx Malignant Hyperthermia: No Meds Allergies/Adverse Reactions: Allergies Allergy/AdvReac Type Severity Reaction Status Date / Time Seafood Allergy ANAPHYLAXIS Uncoded 05/29/17 18:46 - Medications Medications: Current Medications Amlodipine Besylate (Norvasc) 5 mg PO DAILY [facility] Last Admin: 06/11/17 11:47 Dose: Not Given Aspirin (Ecotrin) 81 mg PO DAILY [facility] Last Admin: 06/11/17 11:46 Dose: Not Given Atorvastatin Calcium (Lipitor) 40 mg PO DIN [facility] Last Admin: 06/11/17 18:41 Dose: 40 mg Hydralazine HCl (Apresoline) 25 mg PO TID [facility] Last Admin: 06/11/17 18:41 Dose: 25 mg Hydralazine HCl (Apresoline) 10 mg IVP Q6 PRN PRN Reason: SBP > 170 Last Admin: 06/11/17 06:13 Dose: 10 mg Cefepime HCl (Maxipime 1gm) 1 gm in 100 mls @ 100 mls/hr IVPB DAILY [facility] Last Admin: 06/11/17 12:37 Dose: 100 mls/hr Insulin Human Lispro (Humalog Med) 0 units SC ACHS [facility] PRN Reason: Protocol Last Admin: 06/12/17 08:10 Dose: 1 units Isosorbide Mononitrate (Imdur) 60 mg PO DAILY [facility] Last Admin: 06/11/17 11:47 Dose: Not Given Losartan Potassium (Cozaar) 100 mg PO DAILY [facility] Last Admin: 06/11/17 11:46 Dose: Not Given Metoprolol Tartrate (Lopressor) 25 mg PO BID [facility] Last Admin: 06/11/17 18:41 Dose: 25 mg Pantoprazole Sodium (Protonix Ec Tab) 40 mg PO 0600 [facility] Last Admin: 06/12/17 05:15 Dose: 40 mg Sevelamer HCl (Renagel) 1,600 mg PO WM [facility] Last Admin: 06/12/17 08:10 Dose: 1,600 mg Tamsulosin HCl (Flomax) 0.4 mg PO HS [facility] Last Admin: 06/11/17 21:04 Dose: 0.4 mg Vitamin B Complex/Vit C/Folic Acid (Nephro-Eleni) 1 tab PO 0800 [facility] Last Admin: 06/12/17 08:10 Dose: 1 tab Physical Exam - Constitutional Appears: No Acute Distress - Head Exam Head Exam: ATRAUMATIC, NORMAL INSPECTION, NORMOCEPHALIC - Eye Exam Eye Exam: Normal appearance, PERRL Pupil Exam: NORMAL ACCOMODATION, PERRL - ENT Exam ENT Exam: Mucous Membranes Moist - Respiratory Exam Respiratory Exam: Clear to Auscultation Bilateral, NORMAL BREATHING PATTERN. absent: Rales, Rhonchi, Wheezes - Cardiovascular Exam Cardiovascular Exam: REGULAR RHYTHM, +S1, +S2. absent: Gallop, Rubs, Systolic Murmur - GI/Abdominal Exam GI & Abdominal Exam: Mass, Normal Bowel Sounds, Soft. absent: Rebound, Tenderness - Extremities Exam Extremities exam: Positive for: normal inspection. Negative for: calf tenderness, pedal edema Additional comments: R transmetarsal toe amputations - Neurological Exam Neurological exam: Alert, CN II-XII Intact, Oriented x3 - Psychiatric Exam Psychiatric exam: Normal Affect, Normal Mood - Skin Skin Exam: Dry, Normal Color, Warm Results - Vital Signs Recent Vital Signs: Last Vital Signs Temp 97.8 F 06/12/17 06:00 Pulse 82 06/12/17 06:00 Resp 20 06/12/17 06:00 BP 168/87 H 06/12/17 06:00 Pulse Ox 98 06/12/17 06:00 - Labs Result Diagrams: 06/12/17 05:20 06/12/17 05:20 Labs: Laboratory Results - last 24 hr 06/11/17 06/11/17 06/11/17 11:05 15:00 15:00 WBC RBC Hgb Hct MCV MCH MCHC RDW Plt Count MPV Gran % Lymph % (Auto) [place] % (Auto) Eos % (Auto) Baso % (Auto) Gran # Lymph # [place] # Eos # Baso # ESR Sodium Potassium Chloride Carbon Dioxide Anion Gap BUN Creatinine Est GFR ( Amer) Est GFR (Non-Af Amer) POC Glucose (mg/dL) 130 H Random Glucose Calcium Total Bilirubin AST ALT Alkaline Phosphatase Total Protein Albumin Globulin Albumin/Globulin Ratio Urine Color Yellow Urine Appearance Sl cloudy Urine pH 7.5 Ur Specific [place] 1.020 Urine Protein >=300 H Urine Glucose (UA) 250 H Urine Ketones 15 H Urine Blood Small H Urine Nitrate Negative Urine Bilirubin Negative Urine Urobilinogen 0.2 Ur Leukocyte Esterase Moderate H Urine RBC 1 - 3 Urine WBC 15 - 20 Ur Epithelial Cells 0 - 2 Urine Bacteria Many Urine Opiates Screen Negative Urine Methadone Screen Negative Ur Barbiturates Screen Negative Ur Phencyclidine Scrn Negative Ur Amphetamines Screen Negative U Benzodiazepines Scrn Positive H U Oth Cocaine Metabols Negative U Cannabinoids Screen Positive H 06/11/17 06/11/17 06/12/17 16:09 21:47 05:20 WBC 6.3 D RBC 3.84 Hgb 10.7 L Hct 32.9 L MCV 85.7 MCH 27.9 MCHC 32.5 RDW 16.8 H Plt Count 221 MPV 11.1 H Gran % 60.6 Lymph % (Auto) 26.8 [place] % (Auto) 7.5 H Eos % (Auto) 3.8 Baso % (Auto) 1.3 Gran # 3.81 Lymph # 1.7 [place] # 0.5 Eos # 0.2 Baso # 0.08 ESR Sodium Potassium Chloride Carbon Dioxide Anion Gap BUN Creatinine Est GFR ( Amer) Est GFR (Non-Af Amer) POC Glucose (mg/dL) 154 H 178 H Random Glucose Calcium Total Bilirubin AST ALT Alkaline Phosphatase Total Protein Albumin Globulin Albumin/Globulin Ratio Urine Color Urine Appearance Urine pH Ur Specific [place] Urine Protein Urine Glucose (UA) Urine Ketones Urine Blood Urine Nitrate Urine Bilirubin Urine Urobilinogen Ur Leukocyte Esterase Urine RBC Urine WBC Ur Epithelial Cells Urine Bacteria Urine Opiates Screen Urine Methadone Screen Ur Barbiturates Screen Ur Phencyclidine Scrn Ur Amphetamines Screen U Benzodiazepines Scrn U Oth Cocaine Metabols U Cannabinoids Screen 06/12/17 06/12/17 05:20 08:06 WBC RBC Hgb Hct MCV MCH MCHC RDW Plt Count MPV Gran % Lymph % (Auto) [place] % (Auto) Eos % (Auto) Baso % (Auto) Gran # Lymph # [place] # Eos # Baso # ESR 40 H Sodium 138 Potassium 3.9 Chloride 103 Carbon Dioxide 24 Anion Gap 15 BUN 55 H Creatinine 7.2 H Est GFR ( Amer) 10 Est GFR (Non-Af Amer) 8 POC Glucose (mg/dL) Random Glucose 148 H Calcium 9.1 Total Bilirubin 0.6 AST 22 ALT 33 Alkaline Phosphatase 95 Total Protein 6.7 Albumin 3.8 Globulin 2.9 Albumin/Globulin Ratio 1.3 Urine Color Urine Appearance Urine pH Ur Specific [place] Urine Protein Urine Glucose (UA) Urine Ketones Urine Blood Urine Nitrate Urine Bilirubin Urine Urobilinogen Ur Leukocyte Esterase Urine RBC Urine WBC Ur Epithelial Cells Urine Bacteria Urine Opiates Screen Urine Methadone Screen Ur Barbiturates Screen Ur Phencyclidine Scrn Ur Amphetamines Screen U Benzodiazepines Scrn U Oth Cocaine Metabols U Cannabinoids Screen Assessment & Plan - Assessment and Plan (Free Text) Assessment: This is a 56Y M with PMH CAD, HTN, uncontrolled DM, ESRD on HD as well as medication noncompliance who came to ED for AMS. Head CT was noted to be negative for acute pathology and showed mild chronic periventricular white matter changes and moderate generalized volume loss. AMS has now resolved. AMS was most likely secondary to uremia and metabolic derangements from non- compliance with dialysis. 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 Will sign off. Please re-consult if needed. Case seen, discussed and reviewed with Dr. Keith. Jonh Cardenas PGY2 - Date & Time Date: 06/12/17 Time: 09:25 <Nikos Keith - Last Filed: 06/12/17 13:07> Meds - Medications Medications: Current Medications Amlodipine Besylate (Norvasc) 5 mg PO DAILY [facility] Last Admin: 06/11/17 11:47 Dose: Not Given Aspirin (Ecotrin) 81 mg PO DAILY [facility] Last Admin: 06/11/17 11:46 Dose: Not Given Atorvastatin Calcium (Lipitor) 40 mg PO DIN [facility] Last Admin: 06/11/17 18:41 Dose: 40 mg Hydralazine HCl (Apresoline) 25 mg PO TID [facility] Last Admin: 06/12/17 11:05 Dose: Not Given Hydralazine HCl (Apresoline) 10 mg IVP Q6 PRN PRN Reason: SBP > 170 Last Admin: 06/11/17 06:13 Dose: 10 mg Meropenem 500 mg/ Sodium (Chloride) 100 mls @ 100 mls/hr IVPB Q12 [facility] PRN Reason: Protocol Stop: 06/26/17 10:16 Insulin Human Lispro (Humalog Med) 0 units SC ACHS [facility] PRN Reason: Protocol Last Admin: 06/12/17 12:00 Dose: Not Given Isosorbide Mononitrate (Imdur) 60 mg PO DAILY [facility] Last Admin: 06/11/17 11:47 Dose: Not Given Losartan Potassium (Cozaar) 100 mg PO DAILY [facility] Last Admin: 06/11/17 11:46 Dose: Not Given Metoprolol Tartrate (Lopressor) 25 mg PO BID [facility] Last Admin: 06/12/17 11:06 Dose: Not Given Pantoprazole Sodium (Protonix Ec Tab) 40 mg PO 0600 [facility] Last Admin: 06/12/17 05:15 Dose: 40 mg Sevelamer HCl (Renagel) 1,600 mg PO WM [facility] Last Admin: 06/12/17 12:48 Dose: Not Given Tamsulosin HCl (Flomax) 0.4 mg PO HS [facility] Last Admin: 06/11/17 21:04 Dose: 0.4 mg Vitamin B Complex/Vit C/Folic Acid (Nephro-Eleni) 1 tab PO 0800 [facility] Last Admin: 06/12/17 08:10 Dose: 1 tab Results - Vital Signs Recent Vital Signs: Last Vital Signs Temp 97.8 F 06/12/17 06:00 Pulse 82 06/12/17 06:00 Resp 20 06/12/17 06:00 BP 168/87 H 06/12/17 06:00 Pulse Ox 98 06/12/17 06:00 - Labs Result Diagrams: 06/12/17 05:20 06/12/17 05:20 Labs: Laboratory Results - last 24 hr 06/11/17 06/11/17 06/11/17 15:00 15:00 16:09 WBC RBC Hgb Hct MCV MCH MCHC RDW Plt Count MPV Gran % Lymph % (Auto) [place] % (Auto) Eos % (Auto) Baso % (Auto) Gran # Lymph # [place] # Eos # Baso # ESR Sodium Potassium Chloride Carbon Dioxide Anion Gap BUN Creatinine Est GFR ( Amer) Est GFR (Non-Af Amer) POC Glucose (mg/dL) 154 H Random Glucose Calcium Total Bilirubin AST ALT Alkaline Phosphatase Total Protein Albumin Globulin Albumin/Globulin Ratio Urine Color Yellow Urine Appearance Sl cloudy Urine pH 7.5 Ur Specific [place] 1.020 Urine Protein >=300 H Urine Glucose (UA) 250 H Urine Ketones 15 H Urine Blood Small H Urine Nitrate Negative Urine Bilirubin Negative Urine Urobilinogen 0.2 Ur Leukocyte Esterase Moderate H Urine RBC 1 - 3 Urine WBC 15 - 20 Ur Epithelial Cells 0 - 2 Urine Bacteria Many Urine Opiates Screen Negative Urine Methadone Screen Negative Ur Barbiturates Screen Negative Ur Phencyclidine Scrn Negative Ur Amphetamines Screen Negative U Benzodiazepines Scrn Positive H U Oth Cocaine Metabols Negative U Cannabinoids Screen Positive H 06/11/17 06/12/17 06/12/17 21:47 05:20 05:20 WBC 6.3 D RBC 3.84 Hgb 10.7 L Hct 32.9 L MCV 85.7 MCH 27.9 MCHC 32.5 RDW 16.8 H Plt Count 221 MPV 11.1 H Gran % 60.6 Lymph % (Auto) 26.8 [place] % (Auto) 7.5 H Eos % (Auto) 3.8 Baso % (Auto) 1.3 Gran # 3.81 Lymph # 1.7 [place] # 0.5 Eos # 0.2 Baso # 0.08 ESR Sodium 138 Potassium 3.9 Chloride 103 Carbon Dioxide 24 Anion Gap 15 BUN 55 H Creatinine 7.2 H Est GFR ( Amer) 10 Est GFR (Non-Af Amer) 8 POC Glucose (mg/dL) 178 H Random Glucose 148 H Calcium 9.1 Total Bilirubin 0.6 AST 22 ALT 33 Alkaline Phosphatase 95 Total Protein 6.7 Albumin 3.8 Globulin 2.9 Albumin/Globulin Ratio 1.3 Urine Color Urine Appearance Urine pH Ur Specific [place] Urine Protein Urine Glucose (UA) Urine Ketones Urine Blood Urine Nitrate Urine Bilirubin Urine Urobilinogen Ur Leukocyte Esterase Urine RBC Urine WBC Ur Epithelial Cells Urine Bacteria Urine Opiates Screen Urine Methadone Screen Ur Barbiturates Screen Ur Phencyclidine Scrn Ur Amphetamines Screen U Benzodiazepines Scrn U Oth Cocaine Metabols U Cannabinoids Screen 10/16/17 10/16/17 07:16 08:06 WBC RBC Hgb Hct MCV MCH MCHC RDW Plt Count MPV Gran % Lymph % (Auto) [place] % (Auto) Eos % (Auto) Baso % (Auto) Gran # Lymph # [place] # Eos # Baso # ESR 40 H Sodium Potassium Chloride Carbon Dioxide Anion Gap BUN Creatinine Est GFR ( Amer) Est GFR (Non-Af Amer) POC Glucose (mg/dL) 157 H Random Glucose Calcium Total Bilirubin AST ALT Alkaline Phosphatase Total Protein Albumin Globulin Albumin/Globulin Ratio Urine Color Urine Appearance Urine pH Ur Specific [place] Urine Protein Urine Glucose (UA) Urine Ketones Urine Blood Urine Nitrate Urine Bilirubin Urine Urobilinogen Ur Leukocyte Esterase Urine RBC Urine WBC Ur Epithelial Cells Urine Bacteria Urine Opiates Screen Urine Methadone Screen Ur Barbiturates Screen Ur Phencyclidine Scrn Ur Amphetamines Screen U Benzodiazepines Scrn U Oth Cocaine Metabols U Cannabinoids Screen Attending/Attestation - Attestation I have personally seen and examined this patient.: Yes I have fully participated in the care of the patient.: Yes I have reviewed all pertinent clinical information: Yes
--- NOTE | 2017-06-12 10:44 | CP.PCM.CON ---
History of Present Illness - History of Present Illness History of Present Illness: RENAL CONSULT NOTE 56 year old male with past medical history of ESRD on HD MWF, CAD, HTN, AR x 3, DM with gastroparesis, peripheral neuropathy, CABG presents to the ED for evaluation and treatment of AMS. Denies f/c/cp/sob/abdominal pain/n/v/d/c/ urinary sxs. He is seen on dialysis and is awake, and does not remember the events. Review of Systems - Review of Systems All systems: reviewed and no additional remarkable complaints except Past Patient History - Infectious Disease Hx of Infectious Diseases: None - Tetanus Immunizations Tetanus Immunization: Unknown - Past Medical History & Family History Past Medical History?: Yes - Past Social History Smoking Status: Unknown If Ever Smoked Alcohol: None Drugs: Cannabis Home Situation {Lives}: Friends - CARDIAC Hx Cardiac Disorders: Yes Hx Hypertension: Yes - PULMONARY Hx Respiratory Disorders: Yes Other/Comment: PULMONARY EDEMA - NEUROLOGICAL HX Cerebrovascular Accident: Yes (L sidede weakness) - HEENT Hx HEENT Problems: Yes (CONTACT LENSES) - RENAL Hx Renal Failure: Yes - ENDOCRINE/METABOLIC Hx Diabetes Mellitus Type 2: Yes - HEMATOLOGICAL/ONCOLOGICAL Hx Blood Disorders: No - INTEGUMENTARY Hx Dermatological Problems: Yes Other/Comment: righty lower ext rash, pt stated "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" - MUSCULOSKELETAL/RHEUMATOLOGICAL Hx Musculoskeletal Disorders: No Hx Falls: Yes Other/Comment: generalized weakness - GASTROINTESTINAL Hx Gastrointestinal Disorders: No - GENITOURINARY/GYNECOLOGICAL Hx Genitourinary Disorders: Yes Hx Urinary Tract Infection: Yes - PSYCHIATRIC Hx Psychophysiologic Disorder: No Hx Depression: No Hx Emotional Abuse: No Hx Physical Abuse: No Hx Substance Use: Yes (THC USE IN THE PAST) - SURGICAL HISTORY Hx Surgeries: Yes Hx Amputation: Yes (R toes) Hx Cardiac Catheterization: Yes (09/09) Hx Coronary Stent: Yes Hx Open Heart Surgery: Yes (12-26-12) Other/Comment: temporary dialysis catheter. ERIC PICC line - ANESTHESIA Hx Anesthesia: Yes Hx Anesthesia Reactions: No Hx Malignant Hyperthermia: No Meds Allergies/Adverse Reactions: Allergies Allergy/AdvReac Type Severity Reaction Status Date / Time Seafood Allergy ANAPHYLAXIS Uncoded 05/29/17 18:46 - Medications Medications: Current Medications Amlodipine Besylate (Norvasc) 5 mg PO DAILY [facility] Last Admin: 06/11/17 11:47 Dose: Not Given Aspirin (Ecotrin) 81 mg PO DAILY [facility] Last Admin: 06/11/17 11:46 Dose: Not Given Atorvastatin Calcium (Lipitor) 40 mg PO DIN [facility] Last Admin: 06/11/17 18:41 Dose: 40 mg Hydralazine HCl (Apresoline) 25 mg PO TID [facility] Last Admin: 06/11/17 18:41 Dose: 25 mg Hydralazine HCl (Apresoline) 10 mg IVP Q6 PRN PRN Reason: SBP > 170 Last Admin: 06/11/17 06:13 Dose: 10 mg Meropenem 500 mg/ Sodium (Chloride) 100 mls @ 100 mls/hr IVPB Q12 [facility] PRN Reason: Protocol Stop: 06/26/17 10:16 Insulin Human Lispro (Humalog Med) 0 units SC ACHS [facility] PRN Reason: Protocol Last Admin: 06/12/17 08:10 Dose: 1 units Isosorbide Mononitrate (Imdur) 60 mg PO DAILY [facility] Last Admin: 06/11/17 11:47 Dose: Not Given Losartan Potassium (Cozaar) 100 mg PO DAILY [facility] Last Admin: 06/11/17 11:46 Dose: Not Given Metoprolol Tartrate (Lopressor) 25 mg PO BID [facility] Last Admin: 06/11/17 18:41 Dose: 25 mg Pantoprazole Sodium (Protonix Ec Tab) 40 mg PO 0600 [facility] Last Admin: 06/12/17 05:15 Dose: 40 mg Sevelamer HCl (Renagel) 1,600 mg PO WM [facility] Last Admin: 06/12/17 08:10 Dose: 1,600 mg Tamsulosin HCl (Flomax) 0.4 mg PO HS [facility] Last Admin: 06/11/17 21:04 Dose: 0.4 mg Vitamin B Complex/Vit C/Folic Acid (Nephro-Eleni) 1 tab PO 0800 [facility] Last Admin: 06/12/17 08:10 Dose: 1 tab Physical Exam - Constitutional Appears: Non-toxic, No Acute Distress Additional comments: seen on hd - Head Exam Head Exam: NORMAL INSPECTION - Eye Exam Eye Exam: Normal appearance - ENT Exam ENT Exam: Mucous Membranes Moist - Respiratory Exam Respiratory Exam: NORMAL BREATHING PATTERN - Cardiovascular Exam Cardiovascular Exam: +S1, +S2 - GI/Abdominal Exam GI & Abdominal Exam: Soft - Extremities Exam Extremities exam: Positive for: normal inspection - Neurological Exam Neurological exam: Alert, Oriented x3 - Psychiatric Exam Psychiatric exam: Flat Affect - Skin Skin Exam: Dry Results - Vital Signs Recent Vital Signs: Last Vital Signs Temp 97.8 F 06/12/17 06:00 Pulse 82 06/12/17 06:00 Resp 20 06/12/17 06:00 BP 168/87 H 06/12/17 06:00 Pulse Ox 98 06/12/17 06:00 - Labs Result Diagrams: 06/13/17 06:59 06/13/17 06:59 Labs: Laboratory Results - last 24 hr 06/11/17 06/11/17 06/11/17 11:05 15:00 15:00 WBC RBC Hgb Hct MCV MCH MCHC RDW Plt Count MPV Gran % Lymph % (Auto) [place] % (Auto) Eos % (Auto) Baso % (Auto) Gran # Lymph # [place] # Eos # Baso # ESR Sodium Potassium Chloride Carbon Dioxide Anion Gap BUN Creatinine Est GFR ( Amer) Est GFR (Non-Af Amer) POC Glucose (mg/dL) 130 H Random Glucose Calcium Total Bilirubin AST ALT Alkaline Phosphatase Total Protein Albumin Globulin Albumin/Globulin Ratio Urine Color Yellow Urine Appearance Sl cloudy Urine pH 7.5 Ur Specific [place] 1.020 Urine Protein >=300 H Urine Glucose (UA) 250 H Urine Ketones 15 H Urine Blood Small H Urine Nitrate Negative Urine Bilirubin Negative Urine Urobilinogen 0.2 Ur Leukocyte Esterase Moderate H Urine RBC 1 - 3 Urine WBC 15 - 20 Ur Epithelial Cells 0 - 2 Urine Bacteria Many Urine Opiates Screen Negative Urine Methadone Screen Negative Ur Barbiturates Screen Negative Ur Phencyclidine Scrn Negative Ur Amphetamines Screen Negative U Benzodiazepines Scrn Positive H U Oth Cocaine Metabols Negative U Cannabinoids Screen Positive H 06/11/17 06/11/17 06/12/17 16:09 21:47 05:20 WBC 6.3 D RBC 3.84 Hgb 10.7 L Hct 32.9 L MCV 85.7 MCH 27.9 MCHC 32.5 RDW 16.8 H Plt Count 221 MPV 11.1 H Gran % 60.6 Lymph % (Auto) 26.8 [place] % (Auto) 7.5 H Eos % (Auto) 3.8 Baso % (Auto) 1.3 Gran # 3.81 Lymph # 1.7 [place] # 0.5 Eos # 0.2 Baso # 0.08 ESR Sodium Potassium Chloride Carbon Dioxide Anion Gap BUN Creatinine Est GFR ( Amer) Est GFR (Non-Af Amer) POC Glucose (mg/dL) 154 H 178 H Random Glucose Calcium Total Bilirubin AST ALT Alkaline Phosphatase Total Protein Albumin Globulin Albumin/Globulin Ratio Urine Color Urine Appearance Urine pH Ur Specific [place] Urine Protein Urine Glucose (UA) Urine Ketones Urine Blood Urine Nitrate Urine Bilirubin Urine Urobilinogen Ur Leukocyte Esterase Urine RBC Urine WBC Ur Epithelial Cells Urine Bacteria Urine Opiates Screen Urine Methadone Screen Ur Barbiturates Screen Ur Phencyclidine Scrn Ur Amphetamines Screen U Benzodiazepines Scrn U Oth Cocaine Metabols U Cannabinoids Screen 06/12/17 06/12/17 05:20 08:06 WBC RBC Hgb Hct MCV MCH MCHC RDW Plt Count MPV Gran % Lymph % (Auto) [place] % (Auto) Eos % (Auto) Baso % (Auto) Gran # Lymph # [place] # Eos # Baso # ESR 40 H Sodium 138 Potassium 3.9 Chloride 103 Carbon Dioxide 24 Anion Gap 15 BUN 55 H Creatinine 7.2 H Est GFR ( Amer) 10 Est GFR (Non-Af Amer) 8 POC Glucose (mg/dL) Random Glucose 148 H Calcium 9.1 Total Bilirubin 0.6 AST 22 ALT 33 Alkaline Phosphatase 95 Total Protein 6.7 Albumin 3.8 Globulin 2.9 Albumin/Globulin Ratio 1.3 Urine Color Urine Appearance Urine pH Ur Specific [place] Urine Protein Urine Glucose (UA) Urine Ketones Urine Blood Urine Nitrate Urine Bilirubin Urine Urobilinogen Ur Leukocyte Esterase Urine RBC Urine WBC Ur Epithelial Cells Urine Bacteria Urine Opiates Screen Urine Methadone Screen Ur Barbiturates Screen Ur Phencyclidine Scrn Ur Amphetamines Screen U Benzodiazepines Scrn U Oth Cocaine Metabols U Cannabinoids Screen Assessment & Plan - Assessment and Plan (Free Text) Plan: ESRD/HTN/DM/AMS/anemia/Secondary hyperpth hd mwf, seen and examiend on hd today UF as toleraed yakov reviewed anemia: stable hold epo for now continue binders and monitor phos levels Abx per primary team, dose for esrd thank you for the consult, will continue to follow
[2017-06-12] MEDS: Cefepime 1gm in NS 100ml 1 GM/100 ML BAG IVPB SCH (11:06)
--- NOTE | 2017-06-12 12:29 | CARD ---
APPROVED REPORT EKG Measurement Heart [id number] <Conclusion> Normal sinus rhythm Possible Left atrial enlargement Left ventricular hypertrophy with QRS widening Cannot rule out Septal infarct, age undetermined Inferior infarct, age undetermined Abnormal ECG
--- NOTE | 2017-06-12 13:57 | CP.PCM.CON ---
History of Present Illness - History of Present Illness History of Present Illness: 56 year old male with PMH of HTN, DM, CAD S/P CABG x 3 vessels, history of ESBL- producing Klebsiella infection in 2013, history of diabetic foot infections S/P amputation of the 5 digits of his right foot was recently admitted in [facility] for persistent Pseudomonas bacteremia, with lung cavitary lesions and was found to have dialysis catheter infection and could not rule out endovascular infection. The catheter was removed and patient has been on Cefepime since then, but patient would sign himself out and not be compliant with his dialysis either. He is now brought back to [facility] after he was noted by friend to be acting confused. There is no note of fever, no vomiting, no trauma to the head, no abdominal pain, no diarrhea. Infectious diseases consult is requested to evaluate if the patient may also have UTI. Review of Systems - Review of Systems All systems: reviewed and no additional remarkable complaints except (as per HPI ) Past Patient History - Infectious Disease Hx of Infectious Diseases: None - Tetanus Immunizations Tetanus Immunization: Unknown - Past Medical History & Family History Past Medical History?: Yes - Past Social History Smoking Status: Unknown If Ever Smoked - CARDIAC Hx Cardiac Disorders: Yes Hx Hypertension: Yes - PULMONARY Hx Respiratory Disorders: Yes Other/Comment: PULMONARY EDEMA - NEUROLOGICAL HX Cerebrovascular Accident: Yes (L sidede weakness) - HEENT Hx HEENT Problems: Yes (CONTACT LENSES) - RENAL Hx Renal Failure: Yes - ENDOCRINE/METABOLIC Hx Diabetes Mellitus Type 2: Yes - HEMATOLOGICAL/ONCOLOGICAL Hx Blood Disorders: No - INTEGUMENTARY Hx Dermatological Problems: Yes Other/Comment: righty lower ext rash, pt stated "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" - MUSCULOSKELETAL/RHEUMATOLOGICAL Hx Musculoskeletal Disorders: No Hx Falls: Yes Other/Comment: generalized weakness - GASTROINTESTINAL Hx Gastrointestinal Disorders: No - GENITOURINARY/GYNECOLOGICAL Hx Genitourinary Disorders: Yes Hx Urinary Tract Infection: Yes - PSYCHIATRIC Hx Psychophysiologic Disorder: No Hx Depression: No Hx Emotional Abuse: No Hx Physical Abuse: No Hx Substance Use: Yes (THC USE IN THE PAST) - SURGICAL HISTORY Hx Surgeries: Yes Hx Amputation: Yes (R toes) Hx Cardiac Catheterization: Yes (09/09) Hx Coronary Stent: Yes Hx Open Heart Surgery: Yes (12-26-12) Other/Comment: temporary dialysis catheter. ERIC PICC line - ANESTHESIA Hx Anesthesia: Yes Hx Anesthesia Reactions: No Hx Malignant Hyperthermia: No Meds Allergies/Adverse Reactions: Allergies Allergy/AdvReac Type Severity Reaction Status Date / Time Seafood Allergy ANAPHYLAXIS Uncoded 05/29/17 18:46 - Medications Medications: Current Medications Amlodipine Besylate (Norvasc) 5 mg PO DAILY [facility] Last Admin: 06/11/17 11:47 Dose: Not Given Aspirin (Ecotrin) 81 mg PO DAILY [facility] Last Admin: 06/11/17 11:46 Dose: Not Given Atorvastatin Calcium (Lipitor) 40 mg PO DIN [facility] Last Admin: 06/11/17 18:41 Dose: 40 mg Hydralazine HCl (Apresoline) 25 mg PO TID [facility] Last Admin: 06/11/17 18:41 Dose: 25 mg Hydralazine HCl (Apresoline) 10 mg IVP Q6 PRN PRN Reason: SBP > 170 Last Admin: 06/11/17 06:13 Dose: 10 mg Cefepime HCl (Maxipime 1gm) 1 gm in 100 mls @ 100 mls/hr IVPB DAILY [facility] Last Admin: 06/11/17 12:37 Dose: 100 mls/hr Insulin Human Lispro (Humalog Med) 0 units SC ACHS [facility] PRN Reason: Protocol Last Admin: 06/11/17 22:19 Dose: Not Given Isosorbide Mononitrate (Imdur) 60 mg PO DAILY [facility] Last Admin: 06/11/17 11:47 Dose: Not Given Losartan Potassium (Cozaar) 100 mg PO DAILY [facility] Last Admin: 06/11/17 11:46 Dose: Not Given Metoprolol Tartrate (Lopressor) 25 mg PO BID [facility] Last Admin: 06/11/17 18:41 Dose: 25 mg Pantoprazole Sodium (Protonix Ec Tab) 40 mg PO 0600 [facility] Last Admin: 06/12/17 05:15 Dose: 40 mg Sevelamer HCl (Renagel) 1,600 mg PO WM [facility] Last Admin: 06/11/17 18:41 Dose: 1,600 mg Tamsulosin HCl (Flomax) 0.4 mg PO HS [facility] Last Admin: 06/11/17 21:04 Dose: 0.4 mg Vitamin B Complex/Vit C/Folic Acid (Nephro-Eleni) 1 tab PO 0800 [facility] Last Admin: 06/11/17 08:38 Dose: Not Given Physical Exam - Constitutional Appears: No Acute Distress, Chronically Ill - Head Exam Head Exam: NORMAL INSPECTION - Neck Exam Neck exam: Negative for: Meningismus - Respiratory Exam Respiratory Exam: Decreased Breath Sounds - Cardiovascular Exam Cardiovascular Exam: +S1, +S2 - GI/Abdominal Exam GI & Abdominal Exam: Soft. absent: Tenderness Results - Vital Signs Recent Vital Signs: Last Vital Signs Temp 97.8 F 06/12/17 06:00 Pulse 82 06/12/17 06:00 Resp 20 06/12/17 06:00 BP 168/87 H 06/12/17 06:00 Pulse Ox 98 06/12/17 06:00 - Labs Result Diagrams: 06/12/17 05:20 06/12/17 05:20 Labs: Laboratory Results - last 24 hr 06/11/17 06/11/17 06/11/17 07:30 07:34 07:34 WBC 4.5 RBC 4.01 Hgb 11.0 L Hct 34.4 L MCV 85.8 MCH 27.4 MCHC 32.0 RDW 16.7 H Plt Count 221 MPV 11.8 H Gran % 49.1 L Lymph % (Auto) 35.0 Buchanan % (Auto) 8.4 H Eos % (Auto) 4.6 Baso % (Auto) 2.9 Gran # 2.22 Lymph # 1.6 Buchanan # 0.4 Eos # 0.2 Baso # 0.13 Sodium 143 Potassium 4.2 Chloride 103 Carbon Dioxide 24 Anion Gap 20 BUN 52 H Creatinine 7.3 H Est GFR ( Amer) 9 Est GFR (Non-Af Amer) 8 POC Glucose (mg/dL) 111 H Random Glucose 116 H Calcium 9.6 Phosphorus 4.8 H Magnesium 1.9 Total Bilirubin 0.6 AST 28 ALT 32 Alkaline Phosphatase 104 Troponin I 0.05 D Total Protein 7.2 Albumin 3.9 Globulin 3.3 Albumin/Globulin Ratio 1.2 Urine Color Urine Appearance Urine pH Ur Specific [place] Urine Protein Urine Glucose (UA) Urine Ketones Urine Blood Urine Nitrate Urine Bilirubin Urine Urobilinogen Ur Leukocyte Esterase Urine RBC Urine WBC Ur Epithelial Cells Urine Bacteria Urine Opiates Screen Urine Methadone Screen Ur Barbiturates Screen Ur Phencyclidine Scrn Ur Amphetamines Screen U Benzodiazepines Scrn U Oth Cocaine Metabols U Cannabinoids Screen 06/11/17 06/11/17 06/11/17 11:05 15:00 15:00 WBC RBC Hgb Hct MCV MCH MCHC RDW Plt Count MPV Gran % Lymph % (Auto) [place]anan % (Auto) Eos % (Auto) Baso % (Auto) Gran # Lymph # [place] # Eos # Baso # Sodium Potassium Chloride Carbon Dioxide Anion Gap BUN Creatinine Est GFR ( Amer) Est GFR (Non-Af Amer) POC Glucose (mg/dL) 130 H Random Glucose Calcium Phosphorus Magnesium Total Bilirubin AST ALT Alkaline Phosphatase Troponin I Total Protein Albumin Globulin Albumin/Globulin Ratio Urine Color Yellow Urine Appearance Sl cloudy Urine pH 7.5 Ur Specific [place] 1.020 Urine Protein >=300 H Urine Glucose (UA) 250 H Urine Ketones 15 H Urine Blood Small H Urine Nitrate Negative Urine Bilirubin Negative Urine Urobilinogen 0.2 Ur Leukocyte Esterase Moderate H Urine RBC 1 - 3 Urine WBC 15 - 20 Ur Epithelial Cells 0 - 2 Urine Bacteria Many Urine Opiates Screen Negative Urine Methadone Screen Negative Ur Barbiturates Screen Negative Ur Phencyclidine Scrn Negative Ur Amphetamines Screen Negative U Benzodiazepines Scrn Positive H U Oth Cocaine Metabols Negative U Cannabinoids Screen Positive H 06/11/17 06/11/17 06/12/17 16:09 21:47 05:20 WBC 6.3 D RBC 3.84 Hgb 10.7 L Hct 32.9 L MCV 85.7 MCH 27.9 MCHC 32.5 RDW 16.8 H Plt Count 221 MPV 11.1 H Gran % 60.6 Lymph % (Auto) 26.8 Buchanan % (Auto) 7.5 H Eos % (Auto) 3.8 Baso % (Auto) 1.3 Gran # 3.81 Lymph # 1.7 Buchanan # 0.5 Eos # 0.2 Baso # 0.08 Sodium Potassium Chloride Carbon Dioxide Anion Gap BUN Creatinine Est GFR ( Amer) Est GFR (Non-Af Amer) POC Glucose (mg/dL) 154 H 178 H Random Glucose Calcium Phosphorus Magnesium Total Bilirubin AST ALT Alkaline Phosphatase Troponin I Total Protein Albumin Globulin Albumin/Globulin Ratio Urine Color Urine Appearance Urine pH Ur Specific [place] Urine Protein Urine Glucose (UA) Urine Ketones Urine Blood Urine Nitrate Urine Bilirubin Urine Urobilinogen Ur Leukocyte Esterase Urine RBC Urine WBC Ur Epithelial Cells Urine Bacteria Urine Opiates Screen Urine Methadone Screen Ur Barbiturates Screen Ur Phencyclidine Scrn Ur Amphetamines Screen U Benzodiazepines Scrn U Oth Cocaine Metabols U Cannabinoids Screen 06/12/17 05:20 WBC RBC Hgb Hct MCV MCH MCHC RDW Plt Count MPV Gran % Lymph % (Auto) [place] % (Auto) Eos % (Auto) Baso % (Auto) Gran # Lymph # [place] # Eos # Baso # Sodium 138 Potassium 3.9 Chloride 103 Carbon Dioxide 24 Anion Gap 15 BUN 55 H Creatinine 7.2 H Est GFR ( Amer) 10 Est GFR (Non-Af Amer) 8 POC Glucose (mg/dL) Random Glucose 148 H Calcium 9.1 Phosphorus Magnesium Total Bilirubin 0.6 AST 22 ALT 33 Alkaline Phosphatase 95 Troponin I Total Protein 6.7 Albumin 3.8 Globulin 2.9 Albumin/Globulin Ratio 1.3 Urine Color Urine Appearance Urine pH Ur Specific [place] Urine Protein Urine Glucose (UA) Urine Ketones Urine Blood Urine Nitrate Urine Bilirubin Urine Urobilinogen Ur Leukocyte Esterase Urine RBC Urine WBC Ur Epithelial Cells Urine Bacteria Urine Opiates Screen Urine Methadone Screen Ur Barbiturates Screen Ur Phencyclidine Scrn Ur Amphetamines Screen U Benzodiazepines Scrn U Oth Cocaine Metabols U Cannabinoids Screen Assessment & Plan - Assessment and Plan (Free Text) Plan: Assessment persistent Pseudomonas bacteremia, with lung cavitary lesions, with septic emboli (also growing Pseudomonas), probably Permacath infection with no evidence of endocarditis on ESTER ( but still suspicious for tricuspid valve endocarditis);S/P removal of Permacath and replacement with temporary dialysis catheter (05/18/2017, POD#26) - patient was initially reported as having new gram negative bacteremia (06/10), but lab has corrected to gram positive yumiko R/O UTI history of sepsis due to Klebsiella bacteremia likely HD catheter infection S/P removal of tunneled Catheter history of C. diff. associated diarrhea DM HTN ESRD on HD CAD S/P CABG history of CVA history of rhabdomyolysis Plan change Cefepime to Merrem for now pending identification and sensitivities of the gram positive yumiko in 1 of 4 bottles; will repeat blood cx today would recommend 4-6 weeks of antibiotics (patient has had almost 4 weeks of antibiotics) and treat the Pseudomonas as an endovascular infection with weekly ESR, CRP, CBC, CMP follow up urine cx will continue to follow clinically
--- NOTE | 2017-06-12 15:42 | CP.PCM.PN ---
<SatishStellan - Last Filed: 06/12/17 16:34> Subjective - Date & Time of Evaluation Date of Evaluation: 06/12/17 Time of Evaluation: 08:40 - Subjective Subjective: Patient was seen and examined at bedside. The patient reports feeling better today and is alert and oriented, however still cannot recall the reason why he came to the hospital. He denies chest pain, shortness of breath, nausea, vomiting, headaches, lightheadedness, dizziness, abdominal pain or any other complaints. Objective - Vital Signs/Intake and Output Vital Signs (last 24 hours): Temp Pulse Resp BP Pulse Ox 97.8 F 82 20 168/87 H 98 06/12/17 06:00 06/12/17 06:00 06/12/17 06:00 06/12/17 06:00 06/12/17 06:00 Intake and Output: 06/12/17 06/12/17 06:59 18:59 Intake Total 100 300 Output Total 1300 200 Balance -1200 100 - Medications Medications: Current Medications Amlodipine Besylate (Norvasc) 5 mg PO DAILY [facility] Last Admin: 06/11/17 11:47 Dose: Not Given Aspirin (Ecotrin) 81 mg PO DAILY [facility] Last Admin: 06/11/17 11:46 Dose: Not Given Atorvastatin Calcium (Lipitor) 40 mg PO DIN [facility] Last Admin: 06/11/17 18:41 Dose: 40 mg Hydralazine HCl (Apresoline) 25 mg PO TID [facility] Last Admin: 06/12/17 14:30 Dose: Not Given Hydralazine HCl (Apresoline) 10 mg IVP Q6 PRN PRN Reason: SBP > 170 Last Admin: 06/11/17 06:13 Dose: 10 mg Meropenem 500 mg/ Sodium (Chloride) 100 mls @ 100 mls/hr IVPB Q12 [facility] PRN Reason: Protocol Stop: 06/26/17 10:16 Insulin Human Lispro (Humalog Med) 0 units SC ACHS [facility] PRN Reason: Protocol Last Admin: 06/12/17 12:00 Dose: Not Given Isosorbide Mononitrate (Imdur) 60 mg PO DAILY [facility] Last Admin: 06/11/17 11:47 Dose: Not Given Losartan Potassium (Cozaar) 100 mg PO DAILY [facility] Last Admin: 06/11/17 11:46 Dose: Not Given Metoprolol Tartrate (Lopressor) 25 mg PO BID [facility] Last Admin: 06/12/17 11:06 Dose: Not Given Pantoprazole Sodium (Protonix Ec Tab) 40 mg PO 0600 [facility] Last Admin: 06/12/17 05:15 Dose: 40 mg Sevelamer HCl (Renagel) 1,600 mg PO WM [facility] Last Admin: 06/12/17 12:48 Dose: Not Given Tamsulosin HCl (Flomax) 0.4 mg PO HS [facility] Last Admin: 06/11/17 21:04 Dose: 0.4 mg Vitamin B Complex/Vit C/Folic Acid (Nephro-Eleni) 1 tab PO 0800 [facility] Last Admin: 06/12/17 08:10 Dose: 1 tab - Labs Labs: 06/12/17 05:20 06/12/17 05:20 PT 12.1 Seconds (9.9-11.8) H 06/10/17 17:50 INR 1.12 (0.93-1.08) H 06/10/17 17:50 APTT 31.7 Seconds (23.7-30.8) H 06/10/17 17:50 - Head Exam Head Exam: ATRAUMATIC, NORMAL INSPECTION, NORMOCEPHALIC - Eye Exam Eye Exam: EOMI, Normal appearance, PERRL. absent: Periorbital tenderness Pupil Exam: NORMAL ACCOMODATION, PERRL. absent: Irregular, Unequal - ENT Exam ENT Exam: Mucous Membranes Moist, Normal Exam. absent: Normal Oropharynx, TM's Normal Bilaterally - Neck Exam Neck Exam: Normal Inspection. absent: Lymphadenopathy, Thyromegaly - Respiratory Exam Respiratory Exam: Clear to Ausculation Bilateral, NORMAL BREATHING PATTERN. absent: Chest Wall Tenderness, Prolonged Expiratory Phase, Respiratory Distress - Cardiovascular Exam Cardiovascular Exam: REGULAR RHYTHM, RRR, +S1, +S2. absent: Gallop, Rubs - GI/Abdominal Exam GI & Abdominal Exam: Soft, Normal Bowel Sounds. absent: Rigid, Tenderness, Hyperactive Bowel Sounds - Extremities Exam Additional comments: Partial amputated right foot - Back Exam Back Exam: NORMAL INSPECTION. absent: CVA tenderness (L), CVA tenderness (R), paraspinal tenderness - Neurological Exam Neurological Exam: Alert, Awake, CN II-XII Intact, Normal Gait. absent: Altered - Psychiatric Exam Psychiatric exam: Normal Affect, Normal Mood - Skin Skin Exam: Dry, Intact Assessment and Plan - Assessment and Plan (Free Text) Assessment: Patient is a 56 year old male with past medical history of ESRD on HD MWF, CAD, HTN, ND x 3, DM with gastroparesis, peripheral neuropathy, CABG presents to the ED for evaluation and treatment of AMS Plan: Hypertensive Emergency; AMS - BP in ED 220s/125 - troponins x 2 negative. One troponin indeterminate. Will follow. - aspirin and hydralazine given in ED - head CT- reviewed and appeciated- No acute intracranial hemorrhage. Mild chronic periventricular white matter ischemic changes and scattered deep and subcortical white matter ischemic changes. Age-indeterminate small infarct right thalamus. There are additional smaller lacunar type infarcts scattered about both basal nuclei. Probable dilated perivascular space left inferolateral basal ganglia. Moderate generalized volume loss - continue home aspirin, lipitor - as per attending continue home hydralazine, imdur, losartan, loppressor, and prn hydralazine - neurology consulted. Will f/u with rec's. ESRD on HD - nephrology consult for HD-appreciate recs. Patient scheduled for MWF, however last week missed Monday's session and cut his Monday session in half. - creatinine is 7.2 today - ABG reviewed- patient is not acidotic Hx of Sepsis/Bacteremia 2/2 infected Permacath with septic lung emboli - previous visit the patient was found to be bacteremic with Pseudomonas - continue IV cefepime 1 gram IVPB daily -ID rec's appreciated. Anemic - Hgb stable today 10.7 - monitor closely via daily CBC Urinary Retention - continue flomax Hx of CAD, ND x 3 - as per attending physician continue aspirin, statin, imdur Hx of DM - hold home diabetics meds - accuchecks ACHS - ISS Prophylaxis - scds - protonix <Corey Moore - Last Filed: 06/13/17 12:32> Objective - Vital Signs/Intake and Output Vital Signs (last 24 hours): Temp Pulse Resp BP Pulse Ox 97.9 F 75 20 153/72 H 98 06/13/17 05:34 06/13/17 11:05 06/13/17 05:34 06/13/17 11:05 06/13/17 05:34 Intake and Output: 06/13/17 06/13/17 06:59 18:59 Intake Total 240 Output Total 600 Balance -360 - Labs Labs: 06/13/17 06:59 06/13/17 06:59 PT 12.1 Seconds (9.9-11.8) H 06/10/17 17:50 INR 1.12 (0.93-1.08) H 06/10/17 17:50 APTT 31.7 Seconds (23.7-30.8) H 06/10/17 17:50 Attending/Attestation - Attestation I have personally seen and examined this patient.: Yes I have fully participated in the care of the patient.: Yes I have reviewed all pertinent clinical information, including history, physical exam and plan: Yes Notes (Text): 06/13/17 12:30 Patient was seen and examined with medical care manager. Agreed with resident assessment and plan. 56 year old male with past medical history of ESRD on HD MWF, CAD, HTN, ND x 3, DM with gastroparesis, peripheral neuropathy, CABG , H/O Pseudomonas bacteremia and ling abscess on home iV antibiotics presents to the ED for evaluation and treatment of change of mental status.Patient mental status is back to normal, etiology is unclear.We will follow up cultures. Management plan was discussed in detail with patient Education was provided.
[2017-06-12] MEDS: Meropenem 500 MG in Sodium Chloride 0.9% 100 ML IVPB SCH (16:56)
[2017-06-13 05:35] VITALS: BP 153/72; RESP 20; TEMP 97.9; O2SAT 98
[2017-06-13] MEDS: Pantoprazole 40 mg EC Tab PO SCH (06:25)
[2017-06-13 07:09] VITALS: PULSE 75
[2017-06-13 07:17] LABS: BASO # 0.08 K/mm3 (0.0-2.0); BASO % 1.4 % (0.0-3.0); EOS # 0.2 (0.0-0.7); EOS % 3.3 % (1.5-5.0); GRAN # 3.62 (1.4-6.5); GRAN % 62.1 % (50.0-68.0); LYMPH # 1.5 (1.2-3.4); LYMPH % 25.3 % (22.0-35.0); MEAN CELL VOLUME 87.6 fl (80.0-105.0); MEAN CORPUSCULAR HEMOGLOBIN 27.1 pg (25.0-35.0); MEAN CORPUSCULAR HGB CONC 30.9 g/dl (31.0-37.0); MEAN PLATELET VOLUME 11.7 fl (7.0-11.0); MONO # 0.5 (0.1-0.6); MONO % 7.9 % (1.0-6.0); RED CELL DISTRIBUTION WIDTH 16.9 % (11.5-14.5); WHITE BLOOD COUNT 5.8 10^3/ul (4.5-11.0)
[2017-06-13 07:19] LABS: ALB/GLOB RATIO 1.2 (1.1-1.8); BILIRUBIN,TOTAL 0.4 mg/dL (0.2-1.3); POTASSIUM 3.6 mmol/L (3.6-5.0); TOTAL PROTEIN 6.7 g/dL (5.8-8.3)
[2017-06-13] MEDS: Insulin Lispro (humaLOG) MEDIUM Coverage SC SCH (08:24)
[2017-06-13] MEDS: Multivitamin Vitamin B Complex (Nephro-Vite) Tab PO SCH (08:27)
--- NOTE | 2017-06-13 10:35 | CP.PCM.PN ---
Subjective - Date & Time of Evaluation Date of Evaluation: 06/13/17 Time of Evaluation: 10:32 - Subjective Subjective: seen and examined pt states he had been slacking w/ his medications at home Objective - Vital Signs/Intake and Output Vital Signs (last 24 hours): Temp Pulse Resp BP Pulse Ox 97.9 F 75 20 153/72 H 98 06/13/17 05:34 06/13/17 06:00 06/13/17 05:34 06/13/17 05:34 06/13/17 05:34 Intake and Output: 06/13/17 06/13/17 06:59 18:59 Intake Total 240 Output Total 600 Balance -360 - Medications Medications: Current Medications Amlodipine Besylate (Norvasc) 5 mg PO DAILY [facility] Last Admin: 06/12/17 17:03 Dose: 5 mg Aspirin (Ecotrin) 81 mg PO DAILY [facility] Last Admin: 06/12/17 17:03 Dose: 81 mg Atorvastatin Calcium (Lipitor) 40 mg PO DIN [facility] Last Admin: 06/12/17 18:39 Dose: 40 mg Diphenhydramine HCl (Benadryl) 50 mg PO HS PRN PRN Reason: Insomnia Last Admin: 06/13/17 00:38 Dose: 50 mg Hydralazine HCl (Apresoline) 25 mg PO TID [facility] Last Admin: 06/12/17 18:39 Dose: 25 mg Hydralazine HCl (Apresoline) 10 mg IVP Q6 PRN PRN Reason: SBP > 170 Last Admin: 06/11/17 06:13 Dose: 10 mg Meropenem 500 mg/ Sodium (Chloride) 100 mls @ 100 mls/hr IVPB Q12 [facility] PRN Reason: Protocol Stop: 06/26/17 10:16 Last Admin: 06/12/17 16:56 Dose: 100 mls/hr Insulin Human Lispro (Humalog Med) 0 units SC ACHS [facility] PRN Reason: Protocol Last Admin: 06/13/17 08:24 Dose: 1 units Isosorbide Mononitrate (Imdur) 60 mg PO DAILY [facility] Last Admin: 06/12/17 17:03 Dose: 60 mg Losartan Potassium (Cozaar) 100 mg PO DAILY [facility] Last Admin: 06/12/17 17:03 Dose: 100 mg Metoprolol Tartrate (Lopressor) 25 mg PO BID [facility] Last Admin: 06/12/17 18:39 Dose: 25 mg Pantoprazole Sodium (Protonix Ec Tab) 40 mg PO 0600 [facility] Last Admin: 06/13/17 06:25 Dose: 40 mg Sevelamer HCl (Renagel) 1,600 mg PO WM [facility] Last Admin: 06/13/17 08:27 Dose: 1,600 mg Tamsulosin HCl (Flomax) 0.4 mg PO HS [facility] Last Admin: 06/12/17 22:55 Dose: 0.4 mg Vitamin B Complex/Vit C/Folic Acid (Nephro-Eleni) 1 tab PO 0800 [facility] Last Admin: 06/13/17 08:27 Dose: 1 tab - Labs Labs: 06/13/17 06:59 06/13/17 06:59 PT 12.1 Seconds (9.9-11.8) H 06/10/17 17:50 INR 1.12 (0.93-1.08) H 06/10/17 17:50 APTT 31.7 Seconds (23.7-30.8) H 06/10/17 17:50 - Constitutional Appears: Non-toxic - Head Exam Head Exam: ATRAUMATIC - Eye Exam Eye Exam: Normal appearance - ENT Exam ENT Exam: Normal Exam - Neck Exam Neck Exam: Normal Inspection - Respiratory Exam Respiratory Exam: NORMAL BREATHING PATTERN - Cardiovascular Exam Cardiovascular Exam: +S1, +S2 - GI/Abdominal Exam GI & Abdominal Exam: Normal Bowel Sounds - Extremities Exam Additional comments: no edema - Neurological Exam Neurological Exam: Alert, Oriented x3 - Psychiatric Exam Psychiatric exam: Normal Affect - Skin Skin Exam: Dry Assessment and Plan - Assessment and Plan (Free Text) Assessment: ESRD/Hypertensive kidney disease stage 5/Diabetic kidney disease/AMS/anemia/ Secondary hyperparathyroidism hd tomorrow, continue MWF schedule anemia: stable will resume laura as outpt continue binders phos at goal bp is improved, can consider inc norvasc to 10 mg daily cont renavite Abx per primary team
[2017-06-13] MEDS: Meropenem 500 MG in Sodium Chloride 0.9% 100 ML IVPB SCH (11:06)
--- NOTE | 2017-06-13 11:48 | CP.PCM.PN ---
Subjective - Date & Time of Evaluation Date of Evaluation: 06/13/17 Time of Evaluation: 06:46 - Subjective Subjective: Patient was seen and examined at bedside. Per nursing, no acute events occurred overnight. The patient denies any chest pain, shortness of breath, nausea, vomiting, changes in vision, lightheadedness, dizziness, sore throat, abdominal pain, constipation, or any other complaints. Objective - Vital Signs/Intake and Output Vital Signs (last 24 hours): Temp Pulse Resp BP Pulse Ox 97.9 F 75 20 153/72 H 98 06/13/17 05:34 06/13/17 11:05 06/13/17 05:34 06/13/17 11:05 06/13/17 05:34 Intake and Output: 06/13/17 06/13/17 06:59 18:59 Intake Total 240 Output Total 600 Balance -360 - Medications Medications: Current Medications Amlodipine Besylate (Norvasc) 5 mg PO DAILY [facility] Last Admin: 06/13/17 11:05 Dose: 5 mg Aspirin (Ecotrin) 81 mg PO DAILY [facility] Last Admin: 06/13/17 11:04 Dose: 81 mg Atorvastatin Calcium (Lipitor) 40 mg PO DIN [facility] Last Admin: 06/12/17 18:39 Dose: 40 mg Diphenhydramine HCl (Benadryl) 50 mg PO HS PRN PRN Reason: Insomnia Last Admin: 06/13/17 00:38 Dose: 50 mg Hydralazine HCl (Apresoline) 25 mg PO TID [facility] Last Admin: 06/13/17 11:05 Dose: 25 mg Hydralazine HCl (Apresoline) 10 mg IVP Q6 PRN PRN Reason: SBP > 170 Last Admin: 06/11/17 06:13 Dose: 10 mg Meropenem 500 mg/ Sodium (Chloride) 100 mls @ 100 mls/hr IVPB Q12 MARYANN PRN Reason: Protocol Stop: 06/26/17 10:16 Last Admin: 06/13/17 11:06 Dose: 100 mls/hr Insulin Human Lispro (Humalog Med) 0 units SC ACHS MARYANN PRN Reason: Protocol Last Admin: 06/13/17 08:24 Dose: 1 units Isosorbide Mononitrate (Imdur) 60 mg PO DAILY [facility] Last Admin: 06/13/17 11:04 Dose: 60 mg Losartan Potassium (Cozaar) 100 mg PO DAILY [facility] Last Admin: 06/13/17 11:05 Dose: 100 mg Metoprolol Tartrate (Lopressor) 25 mg PO BID [facility] Last Admin: 06/13/17 11:05 Dose: 25 mg Pantoprazole Sodium (Protonix Ec Tab) 40 mg PO 0600 [facility] Last Admin: 06/13/17 06:25 Dose: 40 mg Sevelamer HCl (Renagel) 1,600 mg PO WM [facility] Last Admin: 06/13/17 11:05 Dose: 1,600 mg Tamsulosin HCl (Flomax) 0.4 mg PO HS [facility] Last Admin: 06/12/17 22:55 Dose: 0.4 mg Vitamin B Complex/Vit C/Folic Acid (Nephro-Eleni) 1 tab PO 0800 [facility] Last Admin: 06/13/17 08:27 Dose: 1 tab - Labs Labs: 06/13/17 06:59 06/13/17 06:59 PT 12.1 Seconds (9.9-11.8) H 06/10/17 17:50 INR 1.12 (0.93-1.08) H 06/10/17 17:50 APTT 31.7 Seconds (23.7-30.8) H 06/10/17 17:50 - Head Exam Head Exam: ATRAUMATIC, NORMAL INSPECTION, NORMOCEPHALIC - Eye Exam Eye Exam: EOMI, Normal appearance, PERRL. absent: Periorbital tenderness Pupil Exam: NORMAL ACCOMODATION, PERRL. absent: Irregular, Unequal - ENT Exam ENT Exam: Mucous Membranes Moist, Normal Exam, Normal Oropharynx. absent: TM's Normal Bilaterally - Neck Exam Neck Exam: Full ROM, Normal Inspection. absent: Lymphadenopathy, Thyromegaly - Respiratory Exam Respiratory Exam: Clear to Ausculation Bilateral, NORMAL BREATHING PATTERN. absent: Prolonged Expiratory Phase, Respiratory Distress - Cardiovascular Exam Cardiovascular Exam: REGULAR RHYTHM, +S1, +S2. absent: Gallop, Rubs - GI/Abdominal Exam GI & Abdominal Exam: Soft, Normal Bowel Sounds. absent: Tenderness, Hyperactive Bowel Sounds - Extremities Exam Additional comments: Partial amputation of the right foot. - Back Exam Back Exam: NORMAL INSPECTION. absent: CVA tenderness (L), CVA tenderness (R), paraspinal tenderness - Neurological Exam Neurological Exam: Alert, Awake, CN II-XII Intact, Normal Gait, Oriented x3 - Psychiatric Exam Psychiatric exam: Normal Affect, Normal Mood. absent: Flat Affect, Suicidal Ideation - Skin Skin Exam: Dry, Intact, Normal Color. absent: Erythema, Rash Assessment and Plan - Assessment and Plan (Free Text) Assessment: Patient is a 56 year old male with past medical history of ESRD on HD MWF, CAD, HTN, [place] x 3, DM with gastroparesis, peripheral neuropathy, CABG presents to the ED for evaluation and treatment of AMS. The patient was changed to Merem from Cefepime pending sensitivities.
--- NOTE | 2017-06-13 12:09 | CP.PCM.DIS ---
<Emanuel Covarrubias - Last Filed: 06/13/17 13:24> Provider - Provider Date of Admission: 06/10/17 18:56 Attending physician: Corey Moore MD Primary care physician: Mercedez Parekh MD Time Spent in preparation of Discharge (in minutes): 45 Hospital Course - Lab Results Lab Results: Micro Results 06/11/17 15:00 Urine,[place]ias Urine Culture - Final Corynebacterium Species Most Recent Lab Values WBC 5.8 10^3/ul (4.5-11.0) 06/13/17 06:59 RBC 3.88 10^6/uL (3.5-6.1) 06/13/17 06:59 Hgb 10.5 g/dL (14.0-18.0) L 06/13/17 06:59 Hct 34.0 % (42.0-52.0) L 06/13/17 06:59 MCV 87.6 fl (80.0-105.0) 06/13/17 06:59 MCH 27.1 pg (25.0-35.0) 06/13/17 06:59 MCHC 30.9 g/dl (31.0-37.0) L 06/13/17 06:59 RDW 16.9 % (11.5-14.5) H 06/13/17 06:59 Plt Count 241 10^3/uL (120.0-450.0) 06/13/17 06:59 MPV 11.7 fl (7.0-11.0) H 06/13/17 06:59 Gran % 62.1 % (50.0-68.0) 06/13/17 06:59 Lymph % (Auto) 25.3 % (22.0-35.0) 06/13/17 06:59 [facility] % (Auto) 7.9 % (1.0-6.0) H 06/13/17 06:59 Eos % (Auto) 3.3 % (1.5-5.0) 06/13/17 06:59 Baso % (Auto) 1.4 % (0.0-3.0) 06/13/17 06:59 Gran # 3.62 (1.4-6.5) 06/13/17 06:59 Lymph # 1.5 (1.2-3.4) 06/13/17 06:59 [facility] # 0.5 (0.1-0.6) 06/13/17 06:59 Eos # 0.2 (0.0-0.7) 06/13/17 06:59 Baso # 0.08 K/mm3 (0.0-2.0) 06/13/17 06:59 ESR 40 mm/hr (0.00-15.0) H 06/12/17 08:06 PT 12.1 Seconds (9.9-11.8) H 06/10/17 17:50 INR 1.12 (0.93-1.08) H 06/10/17 17:50 APTT 31.7 Seconds (23.7-30.8) H 06/10/17 17:50 pO2 34 mm/Hg (30-55) 06/10/17 17:50 VBG pH 7.36 (7.32-7.43) 06/10/17 17:50 VBG pCO2 48.0 (40-60) 06/10/17 17:50 VBG HCO3 27.1 mmol/l (21-28) 06/10/17 17:50 VBG Total CO2 28.6 mmol.L (22-28) H 06/10/17 17:50 VBG O2 Sat (Calc) 69.4 % (40-65) H 06/10/17 17:50 VBG Base Excess 1.0 mmol/L (0.0-2.0) 06/10/17 17:50 VBG Potassium 5.4 mmol/L (3.6-5.2) H 06/10/17 17:50 Sodium 139.0 mmol/L (132-148) 06/10/17 17:50 Chloride 104.0 mmol/L (98-107) 06/10/17 17:50 Glucose 110 mg/dl (75-110) 06/10/17 17:50 Lactate 1.9 mmol/L (0.7-2.1) 06/10/17 17:50 FiO2 21.0 % 06/10/17 17:50 Sodium 142 mmol/L (132-148) 06/13/17 06:59 Potassium 3.6 mmol/L (3.6-5.0) 06/13/17 06:59 Chloride 99 mmol/L (98-107) 06/13/17 06:59 Carbon Dioxide 32 mmol/L (21-33) 06/13/17 06:59 Anion Gap 15 (10-20) 06/13/17 06:59 BUN 22 mg/dL (7-21) H 06/13/17 06:59 Creatinine 4.8 mg/dL (0.8-1.5) H 06/13/17 06:59 Est GFR ( Amer) 15 06/13/17 06:59 Est GFR (Non-Af Amer) 13 06/13/17 06:59 POC Glucose (mg/dL) 188 mg/dL (65-110) H 06/13/17 07:30 Random Glucose 183 mg/dL (70-110) H 06/13/17 06:59 Hemoglobin A1c 7.1 % (4.2-6.5) H 06/10/17 17:50 Calcium 9.0 mg/dL (8.4-10.5) 06/13/17 06:59 Phosphorus 4.8 mg/dL (2.5-4.5) H 06/11/17 07:34 Magnesium 1.9 mg/dL (1.7-2.2) 06/11/17 07:34 Total Bilirubin 0.4 mg/dL (0.2-1.3) 06/13/17 06:59 AST 20 U/L (17-59) 06/13/17 06:59 ALT 32 U/L (7-56) 06/13/17 06:59 Alkaline Phosphatase 97 U/L (38-126) 06/13/17 06:59 Troponin I 0.05 ng/mL D 06/11/17 07:34 C-React Prot High Sens 9.61 mg/L (1.00-3.00) H 06/12/17 10:19 Total Protein 6.7 g/dL (5.8-8.3) 06/13/17 06:59 Albumin 3.7 g/dL (3.0-4.8) 06/13/17 06:59 Globulin 3.0 gm/dL 06/13/17 06:59 Albumin/Globulin Ratio 1.2 (1.1-1.8) 06/13/17 06:59 Triglycerides 162 mg/dL (35-160) H 06/10/17 17:50 Cholesterol 144 mg/dL (130-200) 06/10/17 17:50 LDL Cholesterol Direct 68 mg/dL (0-129) 06/10/17 17:50 HDL Cholesterol 41 mg/dL (29-60) 06/10/17 17:50 Venous Blood Potassium 5.4 mmol/L (3.6-5.2) H 06/10/17 17:50 Urine Color Yellow (YELLOW) 06/11/17 15:00 Urine Appearance Sl cloudy (CLEAR) 06/11/17 15:00 Urine pH 7.5 (4.7-8.0) 06/11/17 15:00 Ur Specific [place] 1.020 (1.005-1.035) 06/11/17 15:00 Urine Protein >=300 mg/dL (<30 mg/dL) H 06/11/17 15:00 Urine Glucose (UA) 250 mg/dL (NEGATIVE) H 06/11/17 15:00 Urine Ketones 15 mg/dL (NEGATIVE) H 06/11/17 15:00 Urine Blood Small (NEGATIVE) H 06/11/17 15:00 Urine Nitrate Negative (NEGATIVE) 06/11/17 15:00 Urine Bilirubin Negative (NEGATIVE) 06/11/17 15:00 Urine Urobilinogen 0.2 E.U./dL (<1 E.U./dL) 06/11/17 15:00 Ur Leukocyte Esterase Moderate Zarina/uL (NEGATIVE) H 06/11/17 15:00 Urine RBC 1 - 3 /hpf (0-2) 06/11/17 15:00 Urine WBC 15 - 20 /hpf (0-6) 06/11/17 15:00 Ur Epithelial Cells 0 - 2 /hpf (0-5) 06/11/17 15:00 Urine Bacteria Many (NEG) 06/11/17 15:00 Urine Opiates Screen Negative (NEGATIVE) 06/11/17 15:00 Urine Methadone Screen Negative (NEGATIVE) 06/11/17 15:00 Ur Barbiturates Screen Negative (NEGATIVE) 06/11/17 15:00 Ur Phencyclidine Scrn Negative (NEGATIVE) 06/11/17 15:00 Ur Amphetamines Screen Negative (NEGATIVE) 06/11/17 15:00 U Benzodiazepines Scrn Positive (NEGATIVE) H 06/11/17 15:00 U Oth Cocaine Metabols Negative (NEGATIVE) 06/11/17 15:00 U Cannabinoids Screen Positive (NEGATIVE) H 06/11/17 15:00 - Hospital Course Hospital Course: Patient is a 56 year old male with past medical history of ESRD on HD MWF, CAD, HTN, [place] x 3, DM with gastroparesis, peripheral neuropathy, CABG presents to the ED for evaluation and treatment of AMS. Patient is confused and repeats "I do not know" to most questions. As per ED chart, EMS stated the patient was on the phone with a friend and began acting confused and slurred speech. Denies f/c/cp/ sob/abdominal pain/n/v/d/c/urinary sxs. The patient was admitted for altered mental status. While admitted the patient was consulted for Infectious Disease , Neurology, and Nephrology. The patient had a toxicology screen done that was positive of benzodiazepines and cannaboids. The patient also had a blood cultures that grew gram positive rods in one out of the four tubes. After being seen by Infectious disease blood cultures were re-ordered since initial blood cultures were contaminated most likely. The patient's antibiotics was changed from Cefepime to Merem and to continue 4 to 6 weeks of IV antibiotics. The patient was seen and examined this morning however later on in the afternoon the patient signed out AMA. Discharge Exam - Head Exam Head Exam: ATRAUMATIC - Eye Exam Eye Exam: EOMI, Normal appearance, PERRL Pupil Exam: NORMAL ACCOMODATION, PERRL. absent: Irregular, Miosis, Mydriatic - ENT Exam ENT Exam: Mucous Membranes Moist, Normal Oropharynx - Respiratory Exam Respiratory Exam: Clear to PA & Lateral, NORMAL BREATHING PATTERN, UNREMARKABLE. absent: Decreased Breath Sounds, Rales, Rhonchi - Cardiovascular Exam Cardiovascular Exam: REGULAR RHYTHM, +S1, +S2 - GI/Abdominal Exam GI & Abdominal Exam: Normal Bowel Sounds, Unremarkable. absent: Hypoactive Bowel Sounds, Organomegaly - Extremities Exam Additional comments: Partial amputation of right foot. - Neurological Exam Neurological exam: Alert, CN II-XII Intact, Normal Gait, Oriented x3, Reflexes Normal - Psychiatric Exam Psychiatric exam: Normal Affect, Normal Mood - Skin Skin Exam: Dry, Intact Discharge Plan - Follow Up Plan Condition: FAIR Disposition: AGAINST MEDICAL ADVICE Referrals: Mercedez Parekh MD [Primary Care Provider] - <Corey Moore - Last Filed: 06/14/17 12:30> Provider - Provider Date of Admission: 06/10/17 18:56 Attending physician: Corey Moore MD Primary care physician: Mercedez Parekh MD Hospital Course - Lab Results Lab Results: Micro Results 06/12/17 22:15 Urine,[place]ias Urine Culture - Final No Growth (<1,000 CFU/ML) 06/13/17 06:28 Blood-During Dialysis Blood Culture - Preliminary NO GROWTH AFTER 24 HOURS 06/13/17 06:28 Blood-During Dialysis Blood Culture - Preliminary NO GROWTH AFTER 24 HOURS 06/11/17 15:00 Urine,[place] Urine Culture - Final Corynebacterium Species Most Recent Lab Values WBC 5.8 10^3/ul (4.5-11.0) 06/13/17 06:59 RBC 3.88 10^6/uL (3.5-6.1) 06/13/17 06:59 Hgb 10.5 g/dL (14.0-18.0) L 06/13/17 06:59 Hct 34.0 % (42.0-52.0) L 06/13/17 06:59 MCV 87.6 fl (80.0-105.0) 06/13/17 06:59 MCH 27.1 pg (25.0-35.0) 06/13/17 06:59 MCHC 30.9 g/dl (31.0-37.0) L 06/13/17 06:59 RDW 16.9 % (11.5-14.5) H 06/13/17 06:59 Plt Count 241 10^3/uL (120.0-450.0) 06/13/17 06:59 MPV 11.7 fl (7.0-11.0) H 06/13/17 06:59 Gran % 62.1 % (50.0-68.0) 06/13/17 06:59 Lymph % (Auto) 25.3 % (22.0-35.0) 06/13/17 06:59 [facility] % (Auto) 7.9 % (1.0-6.0) H 06/13/17 06:59 Eos % (Auto) 3.3 % (1.5-5.0) 06/13/17 06:59 Baso % (Auto) 1.4 % (0.0-3.0) 06/13/17 06:59 Gran # 3.62 (1.4-6.5) 06/13/17 06:59 Lymph # 1.5 (1.2-3.4) 06/13/17 06:59 [facility] # 0.5 (0.1-0.6) 06/13/17 06:59 Eos # 0.2 (0.0-0.7) 06/13/17 06:59 Baso # 0.08 K/mm3 (0.0-2.0) 06/13/17 06:59 ESR 40 mm/hr (0.00-15.0) H 06/12/17 08:06 PT 12.1 Seconds (9.9-11.8) H 06/10/17 17:50 INR 1.12 (0.93-1.08) H 06/10/17 17:50 APTT 31.7 Seconds (23.7-30.8) H 06/10/17 17:50 pO2 34 mm/Hg (30-55) 06/10/17 17:50 VBG pH 7.36 (7.32-7.43) 06/10/17 17:50 VBG pCO2 48.0 (40-60) 06/10/17 17:50 VBG HCO3 27.1 mmol/l (21-28) 06/10/17 17:50 VBG Total CO2 28.6 mmol.L (22-28) H 06/10/17 17:50 VBG O2 Sat (Calc) 69.4 % (40-65) H 06/10/17 17:50 VBG Base Excess 1.0 mmol/L (0.0-2.0) 06/10/17 17:50 VBG Potassium 5.4 mmol/L (3.6-5.2) H 06/10/17 17:50 Sodium 139.0 mmol/L (132-148) 06/10/17 17:50 Chloride 104.0 mmol/L (98-107) 06/10/17 17:50 Glucose 110 mg/dl (75-110) 06/10/17 17:50 Lactate 1.9 mmol/L (0.7-2.1) 06/10/17 17:50 FiO2 21.0 % 06/10/17 17:50 Sodium 142 mmol/L (132-148) 06/13/17 06:59 Potassium 3.6 mmol/L (3.6-5.0) 06/13/17 06:59 Chloride 99 mmol/L (98-107) 06/13/17 06:59 Carbon Dioxide 32 mmol/L (21-33) 06/13/17 06:59 Anion Gap 15 (10-20) 06/13/17 06:59 BUN 22 mg/dL (7-21) H 06/13/17 06:59 Creatinine 4.8 mg/dL (0.8-1.5) H 06/13/17 06:59 Est GFR ( Amer) 15 06/13/17 06:59 Est GFR (Non-Af Amer) 13 06/13/17 06:59 POC Glucose (mg/dL) 188 mg/dL (65-110) H 06/13/17 07:30 Random Glucose 183 mg/dL (70-110) H 06/13/17 06:59 Hemoglobin A1c 7.1 % (4.2-6.5) H 06/10/17 17:50 Calcium 9.0 mg/dL (8.4-10.5) 06/13/17 06:59 Phosphorus 4.8 mg/dL (2.5-4.5) H 06/11/17 07:34 Magnesium 1.9 mg/dL (1.7-2.2) 06/11/17 07:34 Total Bilirubin 0.4 mg/dL (0.2-1.3) 06/13/17 06:59 AST 20 U/L (17-59) 06/13/17 06:59 ALT 32 U/L (7-56) 06/13/17 06:59 Alkaline Phosphatase 97 U/L (38-126) 06/13/17 06:59 Troponin I 0.05 ng/mL D 06/11/17 07:34 C-React Prot High Sens 9.61 mg/L (1.00-3.00) H 06/12/17 10:19 Total Protein 6.7 g/dL (5.8-8.3) 06/13/17 06:59 Albumin 3.7 g/dL (3.0-4.8) 06/13/17 06:59 Globulin 3.0 gm/dL 06/13/17 06:59 Albumin/Globulin Ratio 1.2 (1.1-1.8) 06/13/17 06:59 Triglycerides 162 mg/dL (35-160) H 06/10/17 17:50 Cholesterol 144 mg/dL (130-200) 06/10/17 17:50 LDL Cholesterol Direct 68 mg/dL (0-129) 06/10/17 17:50 HDL Cholesterol 41 mg/dL (29-60) 06/10/17 17:50 Venous Blood Potassium 5.4 mmol/L (3.6-5.2) H 06/10/17 17:50 Urine Color Yellow (YELLOW) 06/11/17 15:00 Urine Appearance Sl cloudy (CLEAR) 06/11/17 15:00 Urine pH 7.5 (4.7-8.0) 06/11/17 15:00 Ur Specific [place] 1.020 (1.005-1.035) 06/11/17 15:00 Urine Protein >=300 mg/dL (<30 mg/dL) H 06/11/17 15:00 Urine Glucose (UA) 250 mg/dL (NEGATIVE) H 06/11/17 15:00 Urine Ketones 15 mg/dL (NEGATIVE) H 06/11/17 15:00 Urine Blood Small (NEGATIVE) H 06/11/17 15:00 Urine Nitrate Negative (NEGATIVE) 06/11/17 15:00 Urine Bilirubin Negative (NEGATIVE) 06/11/17 15:00 Urine Urobilinogen 0.2 E.U./dL (<1 E.U./dL) 06/11/17 15:00 Ur Leukocyte Esterase Moderate Zarina/uL (NEGATIVE) H 06/11/17 15:00 Urine RBC 1 - 3 /hpf (0-2) 06/11/17 15:00 Urine WBC 15 - 20 /hpf (0-6) 06/11/17 15:00 Ur Epithelial Cells 0 - 2 /hpf (0-5) 06/11/17 15:00 Urine Bacteria Many (NEG) 06/11/17 15:00 Urine Opiates Screen Negative (NEGATIVE) 06/11/17 15:00 Urine Methadone Screen Negative (NEGATIVE) 06/11/17 15:00 Ur Barbiturates Screen Negative (NEGATIVE) 06/11/17 15:00 Ur Phencyclidine Scrn Negative (NEGATIVE) 06/11/17 15:00 Ur Amphetamines Screen Negative (NEGATIVE) 06/11/17 15:00 U Benzodiazepines Scrn Positive (NEGATIVE) H 06/11/17 15:00 U Oth Cocaine Metabols Negative (NEGATIVE) 06/11/17 15:00 U Cannabinoids Screen Positive (NEGATIVE) H 06/11/17 15:00 Attending/Attestation - Attestation I have personally seen and examined this patient.: Yes I have fully participated in the care of the patient.: Yes I have reviewed all pertinent clinical information, including history, physical exam and plan: Yes Notes (Text): 06/14/17 12:27 Patient was seen and examined with medical sales. 56 year old male with past medical history of ESRD on HD MWF, CAD, HTN, [place] x 3, DM with gastroparesis, peripheral neuropathy, CABG , H/O Pseudomonas bacteremia and ling abscess on home iV antibiotics presents to the ED for evaluation and treatment of change of mental status.Patient mental status is back to normal, blood cultures at the time of admission grew corynebacterium in one bottle, likely contaminated, repeat blood cultures are not nack , patient has refused to stay in the hospital and has signed out against medical advice.He is alert, awake and oriented and understood the risk of leaving the hospital against medical advice.He is planning to continue his IV cefepime treatment from recent admission at home, Management plan was discussed in detail with patient Education was provided. 06/14/17 12:30
== END 2017-06-13 12:19 | disposition left against medical advice (07) | DRG 134 ==
LOC: ED 17:32 → ERH 18:56 → 2RNO 22:26
PROVIDERS: ADMIT Internal Medicine; ATTEND Internal Medicine
PROC: 5A1D70Z Performance of Urinary Filtration, Intermittent, Less than 6 Hours Per Day (ICD-10-PCS; principal; 2017-06-12)
DX: I16.1 Hypertensive emergency (principal); N18.6 End stage renal disease; E11.22 Type 2 diabetes mellitus with diabetic chronic kidney disease; N39.0 Urinary tract infection, site not specified; E11.42 Type 2 diabetes mellitus with diabetic polyneuropathy; E11.43 Type 2 diabetes mellitus with diabetic autonomic (poly)neuropathy; K31.84 Gastroparesis; N25.81 Secondary hyperparathyroidism of renal origin; I12.0 Hypertensive chronic kidney disease with stage 5 chronic kidney disease or end stage renal disease; F12.90 Cannabis use, unspecified, uncomplicated; R41.82 Altered mental status, unspecified; I25.10 Atherosclerotic heart disease of native coronary artery without angina pectoris; D64.9 Anemia, unspecified; Z99.2 Dependence on renal dialysis; I25.2 Old myocardial infarction; Z95.1 Presence of aortocoronary bypass graft; Z79.4 Long term (current) use of insulin; Z91.14 Patient's other noncompliance with medication regimen; Z95.5 Presence of coronary angioplasty implant and graft; Z86.73 Personal history of transient ischemic attack (TIA), and cerebral infarction without residual deficits

== ENCOUNTER 2017-08-06 13:58 | Inpatient (IN) | payer MEDICAID ==
--- NOTE | 2017-08-06 14:11 | ED PDOC ---
Arrival/HPI - General Chief Complaint: GI Problem Time Seen by Provider: 08/06/17 13:59 Historian: Patient - History of Present Illness Narrative History of Present Illness (Text): 56yoM, ESRD on HD TTS, CAD, HTN, ND x 3, DM with gastroparesis, peripheral neuropathy, CABG, has had episode of upper gastrointestinal bleeding 04/2017, and now having n/v/lower rectal bleeding associated with diarrhea since 3 days. Patient informs similar symptoms from past episodes. Patient is compliant with his medications and dialysis. Patient denies chest pain, shortness of breath, headache, fever, chills, cough, abdominal pain, dizziness, lightheadedness, changes in diet or any other complaints. Patient takes aspirin daily. Time/Duration: < week (since 3 days) Symptom Course: Unchanged Activities at Onset: Light Context: Home Past Medical History - Provider Review Nursing Documentation Reviewed: Yes - Travel History Have you recently traveled outside [place] w/in the past 3 mons?: No - Infectious Disease Hx of Infectious Diseases: None - Tetanus Immunization Tetanus Immunization: Unknown - Cardiac Hx Cardiac Disorders: Yes (CAD, ND x 3, CABG x 3) Hx Hypertension: Yes - Pulmonary Hx Respiratory Disorders: Yes Other/Comment: PULMONARY EDEMA - Neurological HX Cerebrovascular Accident: Yes - HEENT Hx HEENT Disorder: Yes (CONTACT LENSES) - Renal Hx Renal Failure: Yes (HD MWF) - Endocrine/Metabolic Hx Diabetes Mellitus Type 2: Yes - Hematological/Oncological Hx Blood Disorders: No - Integumentary Hx Dermatological Disorder: Yes Other/Comment: righty lower ext rash, pt stated "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" - Musculoskeletal/Rheumatological Hx Musculoskeletal Disorders: No Hx Falls: Yes Other/Comment: generalized weakness - Gastrointestinal Hx Gastrointestinal Disorders: No - Genitourinary/Gynecological Hx Urinary Tract Infection: Yes - Psychiatric Hx Psychophysiologic Disorder: No Hx Depression: No Hx Emotional Abuse: No Hx Physical Abuse: No Hx Substance Use: Yes - Surgical History Hx Amputation: Yes (R toes) Hx Cardiac Catheterization: Yes (09/09) Hx Coronary Stent: Yes Hx Open Heart Surgery: Yes (12-26-12) Other/Comment: temporary dialysis catheter. ERIC PICC line - Anesthesia Hx Anesthesia: Yes Hx Anesthesia Reactions: No Hx Malignant Hyperthermia: No - Suicidal Assessment Feels Threatened In Home Enviroment: No Family/Social History - Physician Review Nursing Documentation Reviewed: Yes Family/Social History: No Known Family HX Smoking Status: Never Smoked Hx Alcohol Use: Yes (ETOH ABUSE) Hx Substance Use: Yes Hx Substance Use Treatment: No Allergies/Home Meds Allergies/Adverse Reactions: Allergies Seafood Allergy (Uncoded 05/29/17 18:46) ANAPHYLAXIS Review of Systems - Physician Review All systems were reviewed & negative as marked: Yes - Review of Systems Constitutional: Normal. absent: Fatigue, Fevers Eyes: Normal ENT: Normal Respiratory: Normal. absent: SOB, Cough Cardiovascular: Normal. absent: Chest Pain Gastrointestinal: Diarrhea, Nausea, Vomiting, Other (Rectal Bleeding) Genitourinary Male: Normal Musculoskeletal: Normal Skin: Normal Neurological: Normal. absent: Headache, Dizziness Endocrine: Normal Psychiatric: Normal Physical Exam Vital Signs Temp Pulse Resp BP Pulse Ox 08/06/17 14:12 98.7 F 90 19 144/80 100 Temperature: Afebrile Blood Pressure: Normal Pulse: Regular Respiratory Rate: Normal Appearance: Positive for: Well-Appearing, Non-Toxic, Comfortable Pain Distress: None Mental Status: Positive for: Alert and Oriented X 3 - Systems Exam Head: Present: Atraumatic, Normocephalic Pupils: Present: PERRL Extroacular Muscles: Present: EOMI Conjunctiva: Present: Normal Mouth: Present: Moist Mucous Membranes Pharnyx: Present: Normal Nose (External): Present: Atraumatic Nose (Internal): Present: Normal Inspection Neck: Present: Normal Range of Motion Respiratory/Chest: Present: Clear to Auscultation, Good Air Exchange. No: Respiratory Distress, Accessory Muscle Use Cardiovascular: Present: Regular Rate and Rhythm, Normal S1, S2. No: Murmurs Abdomen: Present: Normal Bowel Sounds. No: Tenderness, Distention, Peritoneal Signs, Guarding Rectal: Present: Other (no active rectal bleeding). No: Gross Blood Back: Present: Normal Inspection Upper Extremity: Present: Normal Inspection Lower Extremity: Present: Normal Inspection. No: Edema Neurological: Present: GCS=15, CN II-XII Intact, Speech Normal, Motor Func Grossly Intact Skin: Present: Warm, Dry, Normal Color. No: Rashes, Pale Psychiatric: Present: Alert, Oriented x 3, Normal Insight, Normal Concentration Medical Decision Making ED Course and Treatment: 08/06/17 14:20 Impression: 56 year old male presents to the Emergency department for nausea, vomiting, diarrhea and rectal bleeding. guaic negative. Plan: -- Labs, Lipase, troponin -- Blood screen and type -- EKG -- Protonix, Zofran -- Reassess and disposition Progress Notes: 08/06/17 16:01 08/06/17 16:13 d/w Lauren Dobson regarding pt with dark emesis which I was able to visualize at bedside in bucket, but not dark loose stool per pt and guaic neg, no abdomen pain/tenderness, hb 15, potassium 4.2, trop 0.06 indeterminate. pt still symptomatic after zofran 8mg, protonix 80mg, and will give reglan 10mg, pepcid 20mg and admit for further care intractable symptoms. 08/06/17 16:17 - Lab Interpretations Lab Results: 08/06/17 14:32 08/06/17 14:32 Lab Results 08/06/17 14:49: POC Glucose (mg/dL) 246 H 08/06/17 14:32: PT 13.4 H, INR 1.22 H, APTT 33.5 08/06/17 14:32: Sodium 137, Potassium 4.2, Chloride 86 L, Carbon Dioxide 23, Anion Gap 33 H, BUN 41 H, Creatinine 8.8 H*, Est GFR ( Amer) 8, Est GFR ( Non-Af Amer) 6, Random Glucose 242 H, Calcium 10.3, Total Bilirubin 1.2, AST 27 , ALT 25, Alkaline Phosphatase 101, Troponin I 0.06, Total Protein 8.8 H, Albumin 5.0 H, Globulin 3.7, Albumin/Globulin Ratio 1.3, Lipase 58 08/06/17 14:32: WBC 9.4 D, RBC 5.23, Hgb 15.3 D, Hct 45.4, MCV 86.8, MCH 29.3 , MCHC 33.7, RDW 16.7 H, Plt Count 180, MPV 11.4 H, Gran % 78.1 H, Lymph % (Auto ) 14.6 L, Evangeline % (Auto) 7.1 H, Eos % (Auto) 0.0 L, Baso % (Auto) 0.2, Gran # 7.35 H, Lymph # 1.4, Evangeline # 0.7 H, Eos # 0.0, Baso # 0.02 - EKG Interpretation Interpreted by ED Physician: Yes (NSR, similar to 06/10/17.) - Medication Orders Current Medication Orders: Discontinued Medications Famotidine (Pepcid) 20 mg IVP STAT STA Stop: 08/06/17 15:57 Last Admin: 08/06/17 16:13 Dose: 20 mg Metoclopramide HCl (Reglan) 10 mg IVP STAT STA Stop: 08/06/17 15:58 Last Admin: 08/06/17 16:12 Dose: 10 mg Ondansetron HCl (Zofran Inj) 8 mg IVP STAT STA Stop: 08/06/17 14:28 Last Admin: 08/06/17 14:50 Dose: 8 mg IVP Administration Document 08/06/17 14:50 [place] (Rec: 08/06/17 14:51 [id number] Charges for Administration # of IVP Administrations 1 Pantoprazole Sodium (Protonix Inj) 80 mg IVP STAT STA Stop: 08/06/17 14:27 Last Admin: 08/06/17 14:44 Dose: 80 mg IVP Administration Document 08/06/17 14:44 [place] (Rec: 08/06/17 14:50 [id number] Charges for Administration # of IVP Administrations 1 - Scribe Statement The provider has reviewed the documentation as recorded by the Tamara Cordova training under Marisol. All medical record entries made by the Scribe were at my direction and personally dictated by me. I have reviewed the chart and agree that the record accurately reflects my personal performance of the history, physical exam, medical decision making, and the department course for this patient. I have also personally directed, reviewed, and agree with the discharge instructions and disposition. Disposition/Present on Arrival - Present on Arrival Any Indicators Present on Arrival: Yes History of DVT/PE: No History of Uncontrolled Diabetes: No Urinary Catheter: Yes (Placed 05/15/17) History Surgical Site Infection Following: None - Disposition Have Diagnosis and Disposition been Completed?: Yes Diagnosis: Upper GI bleeding, Vomiting Disposition: HOSPITALIZED Disposition Time: 16:17 Patient Plan: Admission, Other (remote telemetry) Condition: STABLE Referrals: Mercedez Parekh MD [Primary Care Provider] - Follow up with primary Forms: [employer] (M[place]ese)
[2017-08-06 14:12] VITALS: BMI 27.0
[2017-08-06 14:52] LABS: BASO # 0.02 K/mm3 (0.0-2.0); BASO % 0.2 % (0.0-3.0); GRAN # 7.35 (1.4-6.5); GRAN % 78.1 % (50.0-68.0); HEMATOCRIT 45.4 % (42.0-52.0); LYMPH # 1.4 (1.2-3.4); LYMPH % 14.6 % (22.0-35.0); MEAN CELL VOLUME 86.8 fl (80.0-105.0); MEAN CORPUSCULAR HEMOGLOBIN 29.3 pg (25.0-35.0); MEAN CORPUSCULAR HGB CONC 33.7 g/dl (31.0-37.0); MEAN PLATELET VOLUME 11.4 fl (7.0-11.0); MONO # 0.7 (0.1-0.6); MONO % 7.1 % (1.0-6.0); RED CELL DISTRIBUTION WIDTH 16.7 % (11.5-14.5); WHITE BLOOD COUNT 9.4 10^3/ul (4.5-11.0)
[2017-08-06 14:59] LABS: INR 1.22 (0.93-1.08); PARTIAL THROMBOPLASTIN TIME 33.5 Seconds (25.1-36.5)
[2017-08-06 15:21] LABS: ALB/GLOB RATIO 1.3 (1.1-1.8); BILIRUBIN,TOTAL 1.2 mg/dL (0.2-1.3); CALCIUM 10.3 mg/dL (8.4-10.5); POTASSIUM 4.2 mmol/L (3.6-5.0); TOTAL PROTEIN 8.8 g/dL (5.8-8.3)
[2017-08-06 15:31] LABS: TROPONIN I 0.06 ng/mL
[2017-08-06] MEDS ORDERED: Sodium Chloride 0.9% 1,000 ML IV SCH (17:30)
--- NOTE | 2017-08-06 18:02 | CP.PCM.HP ---
<Kayleigh Martinez - Last Filed: 08/06/17 19:01> History of Present Illness - History of Present Illness History of Present Illness: 56 year old male with a past medical history of ESRD on HD, DM II, CAD, CVA, dyslipidemia who presents to [facility] [place] with 2.5 days of having jet black, brisk diarrhea and concurrent vomiting. He was in his usual health up until he was suppose to see a new Primary Medical Doctor, Dr. De Jesus, this Monday, and have his medications refilled; however, the doctor was out of his office due to an emergency and Mr. Lay went without his usual medications. He shortly developed diarrhea, that was jet black in color, and then developed nausea and vomited. Important to note, the patient reportedly finished an antibiotic course a week or so ago for a Pseudomonas bacteremia. Currently, he reports not eating for the past 1.5 days and still having jet-black diarrhea and vomiting. He reports he did manage to go to dialysis this Monday but had to cut it short by one hour due to increased malaise, blurry vision, and generalized weakness. He denies eating any unusual food, changes in urination, chest pain, dyspnea, or viri vomiting of blood or vrii blood in his stool. Present on Admission - Present on Admission Any Indicators Present on Admission: Yes History of DVT/PE: Yes Urinary Catheter: Yes Decubitus Ulcer Present: No Review of Systems - Constitutional Constitutional: Chills, Fever - EENT Eyes: Blurred Vision Nose/Mouth/Throat: absent: Post Nasal Drip, Sinus Pressure, Dry Mouth - Cardiovascular Cardiovascular: absent: Chest Pain at Rest, Claudication, Irregular Heart Rhythm - Respiratory Respiratory: absent: Cough, Dyspnea, Hemoptysis - Gastrointestinal Gastrointestinal: Abdominal Pain, Change in Stool Character, Coffee Ground Emesis, Nausea, Vomiting - Genitourinary Genitourinary: absent: Change in Urinary Stream, Difficulty Urinating, Dysuria - Musculoskeletal Musculoskeletal: absent: Joint Swelling, Muscle Cramps, Myalgias - Integumentary Integumentary: absent: Bleeding Lesions, Change in Pigmentation, Hirsutism - Neurological Neurological: absent: Headaches, Memory Loss, Paresthesias - Psychiatric Psychiatric: absent: Abnormal Sleep Pattern, Behavioral Changes, Difficulty Concentrating - Endocrine Endocrine: absent: Deepening of Voice, Heat Intolorance, Palpitations - Hematologic/Lymphatic Hematologic: absent: Easy Bleeding, Easy Bruising Past Patient History - Infectious Disease Hx of Infectious Diseases: None - Tetanus Immunizations Tetanus Immunization: Unknown - Past Medical History & Family History Past Medical History?: Yes - Past Social History Smoking Status: Never Smoked - CARDIAC Hx Cardiac Disorders: Yes (CAD, [place] x 3, CABG x 3) Hx Hypertension: Yes - PULMONARY Hx Respiratory Disorders: Yes Other/Comment: PULMONARY EDEMA - NEUROLOGICAL HX Cerebrovascular Accident: Yes - HEENT Hx HEENT Problems: Yes (CONTACT LENSES) - RENAL Hx Renal Failure: Yes (HD MWF) - ENDOCRINE/METABOLIC Hx Diabetes Mellitus Type 2: Yes - HEMATOLOGICAL/ONCOLOGICAL Hx Blood Disorders: No - INTEGUMENTARY Hx Dermatological Problems: Yes Other/Comment: righty lower ext rash, pt stated "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" - MUSCULOSKELETAL/RHEUMATOLOGICAL Hx Falls: Yes - GASTROINTESTINAL Hx Gastrointestinal Disorders: No - GENITOURINARY/GYNECOLOGICAL Hx Urinary Tract Infection: Yes - PSYCHIATRIC Hx Psychophysiologic Disorder: No Hx Depression: No Hx Emotional Abuse: No Hx Physical Abuse: No - SURGICAL HISTORY Hx Amputation: Yes (R toes) Hx Cardiac Catheterization: Yes (09/09) Hx Coronary Stent: Yes Hx Open Heart Surgery: Yes (12-26-12) Other/Comment: temporary dialysis catheter. ERIC PICC line - ANESTHESIA Hx Anesthesia: Yes Hx Anesthesia Reactions: No Hx Malignant Hyperthermia: No Meds Allergies/Adverse Reactions: Allergies Allergy/AdvReac Type Severity Reaction Status Date / Time Seafood Allergy ANAPHYLAXIS Uncoded 05/29/17 18:46 Physical Exam - Constitutional Appears: Non-toxic, No Acute Distress - Head Exam Head Exam: ATRAUMATIC, NORMOCEPHALIC - Eye Exam Eye Exam: EOMI, Normal appearance - ENT Exam ENT Exam: Mucous Membranes Dry, Normal Oropharynx - Neck Exam Neck exam: Positive for: Normal Inspection - Respiratory Exam Respiratory Exam: Clear to Auscultation Bilateral, NORMAL BREATHING PATTERN. absent: Wheezes - Cardiovascular Exam Cardiovascular Exam: RRR, +S1, +S2 - GI/Abdominal Exam GI & Abdominal Exam: Hyperactive Bowel Sounds Additional comments: diffusely tender to palpation - Extremities Exam Extremities exam: Positive for: normal capillary refill Additional comments: right forefoot amputated - Back Exam Back exam: NORMAL INSPECTION. absent: CVA tenderness (L), CVA tenderness (R) - Neurological Exam Neurological exam: Alert, CN II-XII Intact, Oriented x3 - Psychiatric Exam Psychiatric exam: Normal Affect, Normal Mood - Skin Skin Exam: Dry, Intact, Normal Color, Warm Results - Vital Signs Recent Vital Signs: Last Vital Signs Temp 97.8 F 08/06/17 17:17 Pulse 84 08/06/17 17:17 Resp 18 08/06/17 17:17 BP 160/77 H 08/06/17 17:17 Pulse Ox 100 08/06/17 16:24 - Labs Result Diagrams: 08/06/17 14:32 08/06/17 14:32 - EKG Data EKG Interpreted by: Myself Rate: Normal - EKG Data When Compared to Previous EKG: No Significant Change Assessment & Plan - Assessment and Plan (Free Text) Assessment: 56 year old male with a past medical history of ESRD, CAD, DM II, CVA, hypertension, dyslipidemia who presents with 2.5 days of brisk, jet black diarrhea, vomiting, no PO intake, generalized malaise and fatigue. Plan: 1) DSehydrated;Nausea, vomiting, diarrhea: rule out UGI bleed of infectious diarrhea - GI Consulted, Dr. Becerril - C. difficile antigen and toxin given recent use of antibiotics - Normal Saline 60 mls/hr - Zofran 4 mg IVP q4h - Protonix 40 mg IVP Daily - CT A/P w/o contrast indicated no acute disease, see full report for details. 2) Elevated troponins in the setting of ESRD and known CAD - EKG unchanged compared to prior - Trend troponin I q8h - Cardiology consulted, Dr. Shine - Continue with Aspirin 81, Atorvastatin 40, and Isosorbide Mononitrate 60 3) ESRD - Dr. Garrett consulted - Continue with Nephrovite - Dialysis per nephrology recommendations 4) Hypertension - Hydralazine 10 mg IVP for SBP >160 or DBP >100 - Hydralazine 25 mg TID starting tomorrow - Metoprolol 25 mg BID - Losartan 100 mg PO daily - Amlodipine 10 mg PO daily 5) DM II - ISS medium - Levemir to be added once patient is tolerating PO diet normally - Pregabalin 75 mg BID daily - 6) Urinary retention - Patient has Macias - Tamsulosin 0.4 mg PO daily 7) DVT/GI prophylaxis - SCD/Protonix 40 mg IVP Daily - Date & Time Date: 08/06/17 Time: 19:00 Decision To Admit - . Bed Request Type: Remote Telemetry <Jennifer Rittre - Last Filed: 08/06/17 22:11> Results - Vital Signs Recent Vital Signs: Last Vital Signs Temp 97.8 F 08/06/17 17:17 Pulse 71 08/06/17 20:26 Resp 18 08/06/17 20:26 BP 138/70 08/06/17 20:26 Pulse Ox 98 08/06/17 20:26 - Labs Result Diagrams: 08/06/17 14:32 08/06/17 14:32 Labs: Laboratory Results - last 24 hr 08/06/17 08/06/17 17:21 21:32 POC Glucose (mg/dL) 221 H Blood Type A POSITIVE Antibody Screen Negative BBK History Checked Patient has bt Attending/Attestation - Attestation I have personally seen and examined this patient.: Yes I have fully participated in the care of the patient.: Yes I have reviewed all pertinent clinical information: Yes Notes (Text): 08/06/17 22:02 56 year old male with past medical history of ESRD, CAD, diabetes, hypertension and recently treated bacteremia who presents with complaint of abdominal pain, nausea, vomiting and diarrhea. CT abd/pelvis shows no acute findings. Continue with clear liquid diet as tolerated. Continue with iv protonix and iv zofran prn. GI evaluation is requested. Stool for cdif study is ordered. Patient also has indetermiate troponin in setting of ESRD. He has history of CAD. Will trend troponins. Continue with hemodialysis as per nephrology. Jennifer Ritter MD Hospitalist.
--- NOTE | 2017-08-06 18:06 | CT ---
PROCEDURE: CT abdomen pelvis dated 08/06/2017. HISTORY: Abdominal pain. Possible GI bleed. COMPARISON: Comparison made with prior study dated 05/17/2017. TECHNIQUE: Contiguous axial images of the abdomen and pelvis without oral or intravenous contrast. . . Coronal and Sagittal reformats generated. Radiation dose: Total exam DLP = 583.04 mGy-cm. This CT exam was performed using one or more of the following dose reduction techniques: Automated exposure control, adjustment of the mA and/or kV according to patient size, and/or use of iterative reconstruction technique. FINDINGS: LOWER THORAX: Pneumothorax some minor linear scarring changes in the right middle lobe region. . No infiltrate effusion or basilar .There is a small hiatal hernia with wall thickening of the distal esophagus that could be due to protrusion of gastric mucosa however esophagitis or other intrinsic/invasive wall lesion including esophageal carcinoma given the patient's history of GI bleeding to be excluded. Clinical correlation recommended. LIVER: The liver is mildly enlarged measuring nearly 19 cm in CC dimension. No obvious hepatic mass collection or calcification. All no significant intrahepatic biliary ductal dilatation so far as can be seen. GALLBLADDER AND BILE DUCTS: Gallbladder has been surgically resected with metallic clips again noted in the gallbladder fossa. PANCREAS: The pancreas appears slightly atrophic and fatty replaced. No obvious pancreatic mass collection or calcification. SPLEEN: Spleen slightly enlarged in CC dimension measuring approximately 13.6 cm. . Normal attenuation pattern without mass collection or calcification. Splenic artery calcification are present. . ADRENALS: Slightly nodular appearing left adrenal gland. KIDNEYS AND URETERS: Kidneys demonstrate relatively symmetric size. Vascular calcifications of the renal arteries and distal branches. No evidence of nephrolithiasis or hydronephrosis. Infiltration changes seen in the perinephric fat bilaterally nonspecific. BLADDER: Urinary bladder is collapsed about an in situ Macias catheter and therefore urinary bladder wall cannot be adequately evaluated. No obvious intraluminal urinary bladder calculi REPRODUCTIVE: Prostate gland measures approximately 3.7 cm in transverse dimension. APPENDIX: Normal-appearing appendix best seen on axial image number [id number]. No periappendiceal inflammatory changes. BOWEL: Evaluation of the bowel is limited due to the lack of oral contrast material. The stomach is incompletely distended which in part accounts for thick-walled appearance. Gastritis or other intrinsic -invasive wall lesion not excluded. Visualized loops of small bowel exhibit normal contour and caliber. No evidence of acute mechanical small bowel obstruction. Stool and air seen throughout the large bowel. Scattered colonic diverticula are again noted. No evidence of acute diverticulitis. No definitive evidence of abnormal mural wall thickening. PERITONEUM: Unremarkable. No fluid collection. No free air. LYMPH NODES: Unremarkable. No enlarged lymph nodes. VASCULATURE: Mild partially calcified atherosclerotic plaque seen along the abdominal aorta and iliac arteries. Calcification at the origin of the MARGARITA. Vascular calcifications of the femoral arteries and branches. BONES: Mild multilevel degenerative spondylosis of the lower thoracic and lumbar spine. There are no acute compression fractures no retropulsed fragments. OTHER FINDINGS: None. IMPRESSION: Small hiatal hernia with wall thickening of the distal esophagus that could be secondary to protrusion of gastric mucosa however esophagitis or other intrinsic/invasive wall lesion not excluded. Stomach is incompletely distended which presumably accounts in part for thick-walled appearance. Gastritis or other intrinsic/invasive wall lesion not excluded. Scattered colonic diverticula without definitive radiographic evidence of acute diverticulitis. No evidence of acute appendicitis. Mild hepatosplenomegaly. Status post cholecystectomy. The urinary bladder is collapsed about an in in situ unclamped Macias catheter and therefore bladder of wall cannot be adequately evaluated Extensive vascular calcifications.
[2017-08-06] MEDS: Insulin Reg-MEDIUM-Coverage SC SCH (22:27)
[2017-08-06 22:35] LABS: HEMATOCRIT 40.4 % (42.0-52.0)
[2017-08-07 06:50] LABS: BASO # 0.03 K/mm3 (0.0-2.0); BASO % 0.4 % (0.0-3.0); EOS # 0.1 (0.0-0.7); EOS % 1.3 % (1.5-5.0); GRAN # 4.85 (1.4-6.5); GRAN % 61.3 % (50.0-68.0); LYMPH # 2.1 (1.2-3.4); LYMPH % 26.9 % (22.0-35.0); MEAN CELL VOLUME 88.2 fl (80.0-105.0); MEAN CORPUSCULAR HEMOGLOBIN 28.8 pg (25.0-35.0); MEAN CORPUSCULAR HGB CONC 32.6 g/dl (31.0-37.0); MEAN PLATELET VOLUME 10.8 fl (7.0-11.0); MONO # 0.8 (0.1-0.6); MONO % 10.1 % (1.0-6.0); RED CELL DISTRIBUTION WIDTH 16.8 % (11.5-14.5); WHITE BLOOD COUNT 7.9 10^3/ul (4.5-11.0)
[2017-08-07 07:26] LABS: TROPONIN I 0.07 ng/mL
[2017-08-07 07:41] LABS: ALB/GLOB RATIO 1.3 (1.1-1.8); BILIRUBIN,TOTAL 0.8 mg/dL (0.2-1.3); CALCIUM 9.3 mg/dL (8.4-10.5); POTASSIUM 3.8 mmol/L (3.6-5.0); TOTAL PROTEIN 7.4 g/dL (5.8-8.3)
[2017-08-07] MEDS: Insulin Reg-MEDIUM-Coverage SC SCH ×4 (08:23→22:06)
[2017-08-07] MEDS: Multivitamin Vitamin B Complex (Nephro-Vite) Tab PO SCH (08:23)
--- NOTE | 2017-08-07 08:52 | CP.PCM.CON ---
<ChelseyYazmin - Last Filed: 08/07/17 11:18> History of Present Illness - History of Present Illness History of Present Illness: Yazmin Barbosa, PGY1, GI Consult Note for Dr. Olivo: CC: vomiting, diarrhea 56 years old male with hx of ESRD on HD //, DM with peripheral neuropathy, CAD, CVA, HLD, HTN, presents for vomiting and diarrhea for the past 4-5 days. Pt states that 5 days ago, pt started having this diffuse abdominal pain at night and started vomiting. Since then, pt has been having 5-6 nbnb vomiting episodes per day. He reports decreased appetite, food intolerance, some dyspepsia and also "jet black" diarrheal episodes, 2-3X soon after. Pt states that he had one episode of "coffee ground emesis" yesterday. Pt recently finished IV antibiotics via PICC line 2 weeks ago. Last HD session was on Monday. Denies constipation, sob, fever, chills, body aches, brbpr, hx of hemorrhoids. Denies eating unusual foods, sick contacts or recent travel. Pt had an EGD on 05/08/2017 (Dr Rios) which showed nonbleeding esophageal ulcers , Grade C esophagitis, and chronic gastritis. Pt failed to follow up for a colonoscopy outpatient. In ED, pt's Hgb 13.7 (above his baseline 9-10), given Pepcid, Reglan, zofran and Protonix IV. Last vomiting episode was yesterday evening, brown; had 3-4 episodes yesterday. Pt had two episodes of loose BM this AM, brown, no blood. This AM, pt states that he feels much better, denies abdominal pain and nausea today. States that he feels hungry and would like to eat. 12 point ROS obtained and negative, except as noted per HPI. PCP: Dr Pink Allergies: Morphine, seafood Medications: Please see MAR Medical Hx: ESRD on HD //, CAD, HTN, DM, peripheral neuropathy Surgical Hx: Stents x 3, CABG, left hip surgery, Left knee surgery, Right foot partial amputation, cholecystectomy Social Hx: Quit drinking 6 years ago. Previously a chronic abuser, vodka for 30 years. Denies tobacco use. Smokes marijuana 2-3X weekly. Lives alone Family Hx: father, pancreatic cancer Review of Systems - Review of Systems All systems: reviewed and no additional remarkable complaints except Review of Systems: as per HPI Past Patient History - Infectious Disease Hx of Infectious Diseases: None - Tetanus Immunizations Tetanus Immunization: Unknown - Past Medical History & Family History Past Medical History?: Yes - Past Social History Smoking Status: Never Smoked - CARDIAC Hx Cardiac Disorders: Yes (CAD, MT x 3, CABG x 3) Hx Hypertension: Yes - PULMONARY Hx Respiratory Disorders: Yes Other/Comment: PULMONARY EDEMA - NEUROLOGICAL HX Cerebrovascular Accident: Yes - HEENT Hx HEENT Problems: Yes (CONTACT LENSES) - RENAL Hx Renal Failure: Yes (HD MWF) - ENDOCRINE/METABOLIC Hx Diabetes Mellitus Type 2: Yes - HEMATOLOGICAL/ONCOLOGICAL Hx Blood Disorders: No - INTEGUMENTARY Hx Dermatological Problems: Yes Other/Comment: righty lower ext rash, pt stated "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" - MUSCULOSKELETAL/RHEUMATOLOGICAL Hx Falls: Yes - GASTROINTESTINAL Hx Gastrointestinal Disorders: No - GENITOURINARY/GYNECOLOGICAL Hx Urinary Tract Infection: Yes - PSYCHIATRIC Hx Psychophysiologic Disorder: No Hx Depression: No Hx Emotional Abuse: No Hx Physical Abuse: No - SURGICAL HISTORY Hx Amputation: Yes (R toes) Hx Cardiac Catheterization: Yes (09/09) Hx Coronary Stent: Yes Hx Open Heart Surgery: Yes (12-26-12) Other/Comment: temporary dialysis catheter. ERIC PICC line - ANESTHESIA Hx Anesthesia: Yes Hx Anesthesia Reactions: No Hx Malignant Hyperthermia: No Meds Allergies/Adverse Reactions: Allergies Allergy/AdvReac Type Severity Reaction Status Date / Time Seafood Allergy ANAPHYLAXIS Uncoded 05/29/17 18:46 - Medications Medications: Current Medications Acetaminophen (Tylenol 325mg Tab) 650 mg PO Q6H PRN PRN Reason: Fever >100.4 F Amlodipine Besylate (Norvasc) 5 mg PO DAILY [facility] Aspirin (Ecotrin) 81 mg PO DAILY [facility] Atorvastatin Calcium (Lipitor) 40 mg PO DIN [facility] Hydralazine HCl (Apresoline) 10 mg IVP Q6H PRN PRN Reason: SBP > 160, DBP >100 Hydralazine HCl (Apresoline) 25 mg PO TID [facility] Last Admin: 08/06/17 18:29 Dose: 25 mg Sodium Chloride (Sodium Chloride 0.9%) 1,000 mls @ 60 mls/hr IV .[id number] [facility] Last Admin: 08/06/17 18:10 Dose: 60 mls/hr Insulin Human Regular (Humulin R Med) 0 units SC ACHS [facility] PRN Reason: Protocol Last Admin: 08/07/17 08:23 Dose: 3 units Isosorbide Mononitrate (Imdur) 60 mg PO DAILY [facility] Losartan Potassium (Cozaar) 100 mg PO DAILY [facility] Metoprolol Tartrate (Lopressor) 25 mg PO BID [facility] Last Admin: 08/06/17 18:29 Dose: 25 mg Ondansetron HCl (Zofran Inj) 4 mg IVP Q4H PRN PRN Reason: Nausea/Vomiting Pantoprazole Sodium (Protonix Inj) 40 mg IVP DAILY [facility] Pregabalin (Lyrica) 75 mg PO BID [facility] Last Admin: 08/06/17 18:57 Dose: 75 mg Tamsulosin HCl (Flomax) 0.4 mg PO DAILY [facility] Vitamin B Complex/Vit C/Folic Acid (Nephro-Eleni) 1 tab PO 0800 [facility] Last Admin: 08/07/17 08:23 Dose: 1 tab Zolpidem Tartrate (Ambien) 10 mg PO HS PRN; Protocol PRN Reason: Insomnia Physical Exam - Constitutional Appears: Non-toxic, No Acute Distress, Older Than Stated Age - Head Exam Head Exam: ATRAUMATIC, NORMOCEPHALIC - Eye Exam Eye Exam: EOMI, PERRL Pupil Exam: NORMAL ACCOMODATION, PERRL - ENT Exam ENT Exam: Mucous Membranes Moist - Neck Exam Neck exam: Positive for: Normal Inspection - Respiratory Exam Respiratory Exam: Clear to Auscultation Bilateral. absent: Decreased Breath Sounds, Respiratory Distress - Cardiovascular Exam Cardiovascular Exam: RRR, +S1, +S2. absent: Systolic Murmur - GI/Abdominal Exam GI & Abdominal Exam: Normal Bowel Sounds, Soft. absent: Distended, Guarding, Mass, Organomegaly, Rebound, Tenderness - Rectal Exam Rectal Exam: NORMAL INSPECTION. absent: Hemorrhoids, Fecal Impaction Additional comments: brown stool in vault. No blood. - Extremities Exam Extremities exam: Negative for: calf tenderness, pedal edema - Neurological Exam Neurological exam: Alert, Oriented x3 - Psychiatric Exam Psychiatric exam: Normal Affect, Normal Mood - Skin Skin Exam: Dry, Normal Color, Warm Results - Vital Signs Recent Vital Signs: Last Vital Signs Temp 98.7 F 08/07/17 08:00 Pulse 61 08/07/17 08:00 Resp 20 08/07/17 08:00 BP 132/82 08/07/17 08:00 Pulse Ox 97 08/07/17 08:00 - Labs Result Diagrams: 08/07/17 06:15 08/07/17 06:15 Labs: Laboratory Results - last 24 hr 08/06/17 08/06/17 08/06/17 17:21 21:32 22:30 WBC RBC Hgb Hct MCV MCH MCHC RDW Plt Count MPV Gran % Lymph % (Auto) Forest % (Auto) Eos % (Auto) Baso % (Auto) Gran # Lymph # Forest # Eos # Baso # Sodium Potassium Chloride Carbon Dioxide Anion Gap BUN Creatinine Est GFR ( Amer) Est GFR (Non-Af Amer) POC Glucose (mg/dL) 221 H Random Glucose Calcium Total Bilirubin AST ALT Alkaline Phosphatase Troponin I 0.08 D Total Protein Albumin Globulin Albumin/Globulin Ratio Blood Type A POSITIVE Antibody Screen Negative BBK History Checked Patient has bt 08/06/17 08/07/17 08/07/17 22:30 06:15 06:15 WBC 7.9 RBC 4.76 Hgb 13.4 L 13.7 L Hct 40.4 L 42.0 MCV 88.2 MCH 28.8 MCHC 32.6 RDW 16.8 H Plt Count 189 MPV 10.8 Gran % 61.3 Lymph % (Auto) 26.9 Forest % (Auto) 10.1 H Eos % (Auto) 1.3 L Baso % (Auto) 0.4 Gran # 4.85 Lymph # 2.1 Forest # 0.8 H Eos # 0.1 Baso # 0.03 Sodium 135 Potassium 3.8 Chloride 87 L Carbon Dioxide 31 Anion Gap 21 H BUN 48 H Creatinine 9.6 H* Est GFR ( Amer) 7 Est GFR (Non-Af Amer) 6 POC Glucose (mg/dL) Random Glucose 192 H Calcium 9.3 Total Bilirubin 0.8 AST 25 ALT 29 Alkaline Phosphatase 74 Troponin I 0.07 Total Protein 7.4 Albumin 4.2 Globulin 3.2 Albumin/Globulin Ratio 1.3 Blood Type Antibody Screen BBK History Checked 08/07/17 07:33 WBC RBC Hgb Hct MCV MCH MCHC RDW Plt Count MPV Gran % Lymph % (Auto) Forest % (Auto) Eos % (Auto) Baso % (Auto) Gran # Lymph # Forest # Eos # Baso # Sodium Potassium Chloride Carbon Dioxide Anion Gap BUN Creatinine Est GFR ( Amer) Est GFR (Non-Af Amer) POC Glucose (mg/dL) 216 H Random Glucose Calcium Total Bilirubin AST ALT Alkaline Phosphatase Troponin I Total Protein Albumin Globulin Albumin/Globulin Ratio Blood Type Antibody Screen BBK History Checked Assessment & Plan - Assessment and Plan (Free Text) Assessment: 56 years old male with hx ESRD on HD, DM II, chronic gastritis, recent IV abx use for bacteremia, presents for vomiting and diarrheal episodes: Plan: - 2/2 likely gastroenteritis vs infectious colitis (c diff) due to recent antibiotic usage vs chronic gastritis - Continue with Zofran as needed and PPI - Advanced pt's diet to Renal diet today. Cont to monitor how pt tolerates it ( pt states that he is "very hungry and has a good appetite today"). - Awaiting c diff, stool culture results. If C diff pos, will start on antibiotics. - Recommend outpatient colonoscopy after the acute illness resolves. Discussed with GI fellow and attending, Dr Olivo. Yazmin Barbosa, PGY1 - Date & Time Date: 08/07/17 Time: 09:37 <Ruiz Olivo Y - Last Filed: 08/07/17 15:43> Meds - Medications Medications: Current Medications Acetaminophen (Tylenol 325mg Tab) 650 mg PO Q6H PRN PRN Reason: Fever >100.4 F Amlodipine Besylate (Norvasc) 5 mg PO DAILY [facility] Last Admin: 08/07/17 09:15 Dose: 5 mg Aspirin (Ecotrin) 81 mg PO DAILY [facility] Last Admin: 08/07/17 09:14 Dose: 81 mg Atorvastatin Calcium (Lipitor) 40 mg PO DIN [facility] Hydralazine HCl (Apresoline) 10 mg IVP Q6H PRN PRN Reason: SBP > 160, DBP >100 Hydralazine HCl (Apresoline) 25 mg PO TID [facility] Last Admin: 08/07/17 14:46 Dose: 25 mg Insulin Human Regular (Humulin R Med) 0 units SC ACHS [facility] PRN Reason: Protocol Last Admin: 08/07/17 12:04 Dose: Not Given Isosorbide Mononitrate (Imdur) 60 mg PO DAILY [facility] Last Admin: 08/07/17 09:14 Dose: 60 mg Losartan Potassium (Cozaar) 100 mg PO DAILY [facility] Last Admin: 08/07/17 09:14 Dose: 100 mg Metoprolol Tartrate (Lopressor) 25 mg PO BID [facility] Last Admin: 08/07/17 09:15 Dose: 25 mg Ondansetron HCl (Zofran Inj) 4 mg IVP Q4H PRN PRN Reason: Nausea/Vomiting Pantoprazole Sodium (Protonix Inj) 40 mg IVP DAILY [facility] Last Admin: 08/07/17 09:15 Dose: 40 mg Pregabalin (Lyrica) 75 mg PO BID [facility] Last Admin: 08/07/17 09:15 Dose: 75 mg Tamsulosin HCl (Flomax) 0.4 mg PO DAILY [facility] Last Admin: 08/07/17 09:13 Dose: 0.4 mg Vitamin B Complex/Vit C/Folic Acid (Nephro-Eleni) 1 tab PO 0800 [facility] Last Admin: 08/07/17 08:23 Dose: 1 tab Zolpidem Tartrate (Ambien) 10 mg PO HS PRN; Protocol PRN Reason: Insomnia Results - Vital Signs Recent Vital Signs: Last Vital Signs Temp 98.7 F 08/07/17 08:00 Pulse 80 08/07/17 14:46 Resp 20 08/07/17 08:00 BP 130/70 08/07/17 14:46 Pulse Ox 97 08/07/17 08:00 - Labs Result Diagrams: 08/07/17 06:15 08/07/17 06:15 Labs: Laboratory Results - last 24 hr 08/06/17 08/06/17 08/06/17 17:21 21:32 22:30 WBC RBC Hgb Hct MCV MCH MCHC RDW Plt Count MPV Gran % Lymph % (Auto) Forest % (Auto) Eos % (Auto) Baso % (Auto) Gran # Lymph # Forest # Eos # Baso # Sodium Potassium Chloride Carbon Dioxide Anion Gap BUN Creatinine Est GFR ( Amer) Est GFR (Non-Af Amer) POC Glucose (mg/dL) 221 H Random Glucose Calcium Total Bilirubin AST ALT Alkaline Phosphatase Troponin I 0.08 D Total Protein Albumin Globulin Albumin/Globulin Ratio Blood Type A POSITIVE Antibody Screen Negative BBK History Checked Patient has bt 1208/07/17 08/07/17 22:30 06:15 06:15 WBC 7.9 RBC 4.76 Hgb 13.4 L 13.7 L Hct 40.4 L 42.0 MCV 88.2 MCH 28.8 MCHC 32.6 RDW 16.8 H Plt Count 189 MPV 10.8 Gran % 61.3 Lymph % (Auto) 26.9 Forest % (Auto) 10.1 H Eos % (Auto) 1.3 L Baso % (Auto) 0.4 Gran # 4.85 Lymph # 2.1 Forest # 0.8 H Eos # 0.1 Baso # 0.03 Sodium 135 Potassium 3.8 Chloride 87 L Carbon Dioxide 31 Anion Gap 21 H BUN 48 H Creatinine 9.6 H* Est GFR ( Amer) 7 Est GFR (Non-Af Amer) 6 POC Glucose (mg/dL) Random Glucose 192 H Calcium 9.3 Total Bilirubin 0.8 AST 25 ALT 29 Alkaline Phosphatase 74 Troponin I 0.07 Total Protein 7.4 Albumin 4.2 Globulin 3.2 Albumin/Globulin Ratio 1.3 Blood Type Antibody Screen BBK History Checked 08/07/17 08/07/17 07:33 11:37 WBC RBC Hgb Hct MCV MCH MCHC RDW Plt Count MPV Gran % Lymph % (Auto) Forest % (Auto) Eos % (Auto) Baso % (Auto) Gran # Lymph # Forest # Eos # Baso # Sodium Potassium Chloride Carbon Dioxide Anion Gap BUN Creatinine Est GFR ( Amer) Est GFR (Non-Af Amer) POC Glucose (mg/dL) 216 H 116 H Random Glucose Calcium Total Bilirubin AST ALT Alkaline Phosphatase Troponin I Total Protein Albumin Globulin Albumin/Globulin Ratio Blood Type Antibody Screen BBK History Checked Attending/Attestation - Attestation I have personally seen and examined this patient.: Yes I have fully participated in the care of the patient.: Yes I have reviewed all pertinent clinical information: Yes Notes (Text): 08/07/17 15:30 I have seen and examined patient with GI fellow and biomedical analytical scientist. Agree with above documentation with the following additions. In brief, this is a 56 year old male with history of ESRD on HD, CAD, CVA, DM, hyperlipidemia, prior ETOH abuse who presents to hospital with complaint of abdominal pain, vomiting, and dark colored diarrhea for the past 4 days. Prior to this he was in usual state of health, since symptoms began he describes having 4-5 episodes of dark brown/black colored diarrhea along with generalized abdominal pain. He was recently treated for pseudomonas bacteremia and completed extended course of antibiotic therapy. He otherwise denies weight loss, fever/chills, sick contacts, recent travel. He had an EGD with Dr. Rios which showed LA grade C erosive esophagitis with superficial erosions, gastritis. ESRD on HD CAD CVA Hyperlipidemia DM Abdominal pain, resolved. Diarrhea, improving - possible gastroenteritis. - Advance diet as tolerated - Obtain stool studies (culture, c-difficile) - Continue with supportive therapy, IVF hydration - Patient would benefit from elective outpatient colonoscopy following resolution of acute symptoms. If patient tolerating PO diet, from GI perspective ok to discharge patient home with outpatient follow up.
--- NOTE | 2017-08-07 13:57 | CP.PCM.PN ---
<Kayleigh Martinez - Last Filed: 08/07/17 18:15> Subjective - Date & Time of Evaluation Date of Evaluation: 08/07/17 Time of Evaluation: 09:56 - Subjective Subjective: Kayleigh Martinez DO, PGY-1: Hospitalist Service Patient seen and examined at bedside. Patient reports having no nausea or vomiting and t is tolerating a clear liquid diet. Patient reports still having loose stools. Patient reports he feels refreshed from sleeping 7 hours overnight. Objective - Vital Signs/Intake and Output Vital Signs (last 24 hours): Temp Pulse Resp BP Pulse Ox 98.7 F 66 20 132/82 97 08/07/17 08:00 08/07/17 09:14 08/07/17 08:00 08/07/17 09:14 08/07/17 08:00 Intake and Output: 08/07/17 08/07/17 06:59 18:59 Intake Total 560 Output Total 200 Balance 360 - Medications Medications: Current Medications Acetaminophen (Tylenol 325mg Tab) 650 mg PO Q6H PRN PRN Reason: Fever >100.4 F Amlodipine Besylate (Norvasc) 5 mg PO DAILY [facility] Last Admin: 08/07/17 09:15 Dose: 5 mg Aspirin (Ecotrin) 81 mg PO DAILY [facility] Last Admin: 08/07/17 09:14 Dose: 81 mg Atorvastatin Calcium (Lipitor) 40 mg PO DIN [facility] Hydralazine HCl (Apresoline) 10 mg IVP Q6H PRN PRN Reason: SBP > 160, DBP >100 Hydralazine HCl (Apresoline) 25 mg PO TID [facility] Last Admin: 08/07/17 09:14 Dose: 25 mg Insulin Human Regular (Humulin R Med) 0 units SC [facility] PRN Reason: Protocol Last Admin: 08/07/17 12:04 Dose: Not Given Isosorbide Mononitrate (Imdur) 60 mg PO DAILY [facility] Last Admin: 08/07/17 09:14 Dose: 60 mg Losartan Potassium (Cozaar) 100 mg PO DAILY [facility] Last Admin: 08/07/17 09:14 Dose: 100 mg Metoprolol Tartrate (Lopressor) 25 mg PO BID [facility] Last Admin: 08/07/17 09:15 Dose: 25 mg Ondansetron HCl (Zofran Inj) 4 mg IVP Q4H PRN PRN Reason: Nausea/Vomiting Pantoprazole Sodium (Protonix Inj) 40 mg IVP DAILY [facility] Last Admin: 08/07/17 09:15 Dose: 40 mg Pregabalin (Lyrica) 75 mg PO BID [facility] Last Admin: 08/07/17 09:15 Dose: 75 mg Tamsulosin HCl (Flomax) 0.4 mg PO DAILY [facility] Last Admin: 08/07/17 09:13 Dose: 0.4 mg Vitamin B Complex/Vit C/Folic Acid (Nephro-Eleni) 1 tab PO 0800 [facility] Last Admin: 08/07/17 08:23 Dose: 1 tab Zolpidem Tartrate (Ambien) 10 mg PO HS PRN; Protocol PRN Reason: Insomnia - Labs Labs: 08/07/17 06:15 08/07/17 06:15 PT 13.4 SECONDS (9.4-12.5) H 08/06/17 14:32 INR 1.22 (0.93-1.08) H 08/06/17 14:32 APTT 33.5 Seconds (25.1-36.5) 08/06/17 14:32 - Constitutional Appears: Well, Non-toxic - Head Exam Head Exam: ATRAUMATIC, NORMOCEPHALIC - Eye Exam Eye Exam: EOMI, Normal appearance - ENT Exam ENT Exam: Mucous Membranes Moist, Normal Oropharynx - Neck Exam Neck Exam: Normal Inspection - Respiratory Exam Respiratory Exam: Clear to Ausculation Bilateral, NORMAL BREATHING PATTERN. absent: Wheezes - Cardiovascular Exam Cardiovascular Exam: RRR, +S1, +S2 - GI/Abdominal Exam GI & Abdominal Exam: Soft, Tenderness (tender to deep palpation in all four quadrants), Hyperactive Bowel Sounds - Extremities Exam Extremities Exam: Normal Capillary Refill, Normal Inspection Additional comments: right forefoot missing - Back Exam Back Exam: NORMAL INSPECTION. absent: CVA tenderness (L), CVA tenderness (R) - Neurological Exam Neurological Exam: Alert, Awake, CN II-XII Intact, Oriented x3 - Psychiatric Exam Psychiatric exam: Normal Affect, Normal Mood - Skin Skin Exam: Dry, Intact, Normal Color, Warm Assessment and Plan - Assessment and Plan (Free Text) Assessment: 56 year old male with a past medical history of ESRD, CAD, DM II, CVA, hypertension, dyslipidemia who presents with 2.5 days of brisk, jet black diarrhea, vomiting, no PO intake, generalized malaise and fatigue. Plan: 1) Dehydration secondary to vomiting and diarrhea: rule out UGI bleed or infectious diarrhea - GI Consulted, Dr. Olivo, appreciate recommendations. - C. difficile antigen and toxin ordered given recent use of antibiotics - Normal Saline 60 mls/hr - Zofran 4 mg IVP q4h - Protonix 40 mg IVP Daily - CT A/P w/o contrast indicated no acute disease, see full report for details. 2) Indeterminate troponin I in the setting of ESRD and known CAD - EKG unchanged compared to prior - Troponin I x3 showed no rise and patient complains of no chest pain, diaphoresis, and nausea has resolved. - Cardiology consulted, Dr. Shine, appreciate recommendations. - Continue with Aspirin 81, Atorvastatin 40, and Isosorbide Mononitrate 60. 3) ESRD - Dr. Garrett consulted - Continue with Nephrovite - Dialysis Monday, , Monday per nephrology recommendations. 4) Hypertension - Hydralazine 10 mg IVP for SBP >160 or DBP >100 - Hydralazine 25 mg TID starting tomorrow - Metoprolol 25 mg BID - Losartan 100 mg PO daily - Amlodipine 10 mg PO daily 5) DM II - ISS medium - Levemir to be added once patient is tolerating PO diet normally. - Pregabalin 75 mg BID daily - 6) Urinary retention - Patient has Macias - Tamsulosin 0.4 mg PO daily 7) DVT/GI prophylaxis - SCD/Protonix 40 mg IVP Daily <Corey Moore - Last Filed: 08/08/17 14:38> Objective - Vital Signs/Intake and Output Vital Signs (last 24 hours): Temp Pulse Resp BP Pulse Ox 102.0 F H 80 20 145/80 99 08/08/17 11:12 08/08/17 14:31 08/08/17 08:00 08/08/17 14:31 08/08/17 08:00 Intake and Output: 08/08/17 08/08/17 06:59 18:59 Intake Total 900 Output Total 325 Balance 575 - Medications Medications: Current Medications Acetaminophen (Tylenol 325mg Tab) 650 mg PO Q4H PRN PRN Reason: Temperature Amlodipine Besylate (Norvasc) 5 mg PO DAILY [facility] Last Admin: 08/08/17 11:22 Dose: 5 mg Aspirin (Ecotrin) 81 mg PO DAILY [facility] Last Admin: 08/08/17 11:16 Dose: 81 mg Atorvastatin Calcium (Lipitor) 40 mg PO DIN [facility] Last Admin: 08/07/17 17:22 Dose: 40 mg Hydralazine HCl (Apresoline) 10 mg IVP Q6H PRN PRN Reason: SBP > 160, DBP >100 Hydralazine HCl (Apresoline) 25 mg PO TID [facility] Last Admin: 08/08/17 14:31 Dose: 25 mg Meropenem 500 mg/ Sodium (Chloride) 50 mls @ 100 mls/hr IVPB Q24H [facility] PRN Reason: Protocol Stop: 08/08/17 15:14 Insulin Human Regular (Humulin R Med) 0 units SC ACHS [facility] PRN Reason: Protocol Last Admin: 08/08/17 13:05 Dose: Not Given Isosorbide Mononitrate (Imdur) 60 mg PO DAILY [facility] Last Admin: 08/08/17 11:21 Dose: 60 mg Losartan Potassium (Cozaar) 100 mg PO DAILY [facility] Last Admin: 08/08/17 11:21 Dose: 100 mg Metoprolol Tartrate (Lopressor) 25 mg PO BID [facility] Last Admin: 08/08/17 11:22 Dose: 25 mg Ondansetron HCl (Zofran Inj) 4 mg IVP Q4H PRN PRN Reason: Nausea/Vomiting Pantoprazole Sodium (Protonix Ec Tab) 40 mg PO DAILY [facility] Pregabalin (Lyrica) 75 mg PO BID [facility] Last Admin: 08/08/17 11:15 Dose: 75 mg Sevelamer HCl (Renagel) 800 mg PO TID [facility] Last Admin: 08/08/17 14:31 Dose: 800 mg Tamsulosin HCl (Flomax) 0.4 mg PO DAILY [facility] Last Admin: 08/08/17 11:15 Dose: 0.4 mg Vitamin B Complex/Vit C/Folic Acid (Nephro-Eleni) 1 tab PO 0800 [facility] Last Admin: 08/08/17 11:15 Dose: 1 tab Zolpidem Tartrate (Ambien) 10 mg PO HS PRN; Protocol PRN Reason: Insomnia - Labs Labs: 08/08/17 11:20 08/08/17 07:00 PT 13.4 SECONDS (9.4-12.5) H 08/06/17 14:32 INR 1.22 (0.93-1.08) H 08/06/17 14:32 APTT 33.5 Seconds (25.1-36.5) 08/06/17 14:32 Attending/Attestation - Attestation I have personally seen and examined this patient.: Yes I have fully participated in the care of the patient.: Yes I have reviewed all pertinent clinical information, including history, physical exam and plan: Yes Notes (Text): 08/08/17 14:37 Patient was seen and examined with certified medical technician. Agreed with resident assessment and plan. Patient Nausea and vomiting has improved.There is no active bleeding.Hemoglobin is stable. We will check stool for clostridium defficle colitis.We will advance diet. Management plan was discussed in detail with patient Education was provided.
--- NOTE | 2017-08-07 13:59 | CP.PCM.DIS ---
Provider - Provider Date of Admission: 08/06/17 16:10 Attending physician: Lauren Godwin MD Primary care physician: Mercedez Parekh MD Consults: Dr. Fátima Becerril Time Spent in preparation of Discharge (in minutes): 35 Hospital Course - Lab Results Lab Results: Most Recent Lab Values WBC 7.9 10^3/ul (4.5-11.0) 08/07/17 06:15 RBC 4.76 10^6/uL (3.5-6.1) 08/07/17 06:15 Hgb 13.7 g/dL (14.0-18.0) L 08/07/17 06:15 Hct 42.0 % (42.0-52.0) 08/07/17 06:15 MCV 88.2 fl (80.0-105.0) 08/07/17 06:15 MCH 28.8 pg (25.0-35.0) 08/07/17 06:15 MCHC 32.6 g/dl (31.0-37.0) 08/07/17 06:15 RDW 16.8 % (11.5-14.5) H 08/07/17 06:15 Plt Count 189 10^3/uL (120.0-450.0) 08/07/17 06:15 MPV 10.8 fl (7.0-11.0) 08/07/17 06:15 Gran % 61.3 % (50.0-68.0) 08/07/17 06:15 Lymph % (Auto) 26.9 % (22.0-35.0) 08/07/17 06:15 [place] % (Auto) 10.1 % (1.0-6.0) H 08/07/17 06:15 Eos % (Auto) 1.3 % (1.5-5.0) L 08/07/17 06:15 Baso % (Auto) 0.4 % (0.0-3.0) 08/07/17 06:15 Gran # 4.85 (1.4-6.5) 08/07/17 06:15 Lymph # 2.1 (1.2-3.4) 08/07/17 06:15 [place] # 0.8 (0.1-0.6) H 08/07/17 06:15 Eos # 0.1 (0.0-0.7) 08/07/17 06:15 Baso # 0.03 K/mm3 (0.0-2.0) 08/07/17 06:15 PT 13.4 SECONDS (9.4-12.5) H 08/06/17 14:32 INR 1.22 (0.93-1.08) H 08/06/17 14:32 APTT 33.5 Seconds (25.1-36.5) 08/06/17 14:32 Sodium 135 mmol/L (132-148) 08/07/17 06:15 Potassium 3.8 mmol/L (3.6-5.0) 08/07/17 06:15 Chloride 87 mmol/L (98-107) L 08/07/17 06:15 Carbon Dioxide 31 mmol/L (21-33) 08/07/17 06:15 Anion Gap 21 (10-20) H 08/07/17 06:15 BUN 48 mg/dL (7-21) H 08/07/17 06:15 Creatinine 9.6 mg/dl (0.8-1.5) H* 08/07/17 06:15 Est GFR ( Amer) 7 08/07/17 06:15 Est GFR (Non-Af Amer) 6 08/07/17 06:15 POC Glucose (mg/dL) 116 mg/dL (65-110) H 08/07/17 11:37 Random Glucose 192 mg/dL (70-110) H 08/07/17 06:15 Calcium 9.3 mg/dL (8.4-10.5) 08/07/17 06:15 Total Bilirubin 0.8 mg/dL (0.2-1.3) 08/07/17 06:15 AST 25 U/L (17-59) 08/07/17 06:15 ALT 29 U/L (7-56) 08/07/17 06:15 Alkaline Phosphatase 74 U/L (38-126) 08/07/17 06:15 Troponin I 0.07 ng/mL 08/07/17 06:15 Total Protein 7.4 g/dL (5.8-8.3) 08/07/17 06:15 Albumin 4.2 g/dL (3.0-4.8) 08/07/17 06:15 Globulin 3.2 gm/dL 08/07/17 06:15 Albumin/Globulin Ratio 1.3 (1.1-1.8) 08/07/17 06:15 Lipase 58 U/L (23-300) 08/06/17 14:32 Blood Type A POSITIVE 08/06/17 17:21 Antibody Screen Negative 08/06/17 17:21 BBK History Checked Patient has bt 08/06/17 17:21 - Hospital Course Hospital Course: 56 year old male with a past medical history of ESRD on HD, DM II, CAD, CVA, dyslipidemia who presents to [facility] with 2.5 days of having jet black, brisk diarrhea and concurrent vomiting. CT A/P was negative for an acute abdominal process. Initial troponin I was in an indeterminate range; however, repeat troponins did not rise, nor did the patient have chest pain or any EKG changes significant for AL. Cardiology was consulted given the elevated troponin I. GI was consulted given the concerns of a possible GI bleed and the concurrent diarrhea. During the course of his hospital stay, the patient remained hemodynamically stable, his nausea and vomiting resolved with anti-emetic use, and he tolerated a regular diet without any abdominal pain. Furthermore, C. Difficile stool antigen and toxin were obtained given the patient recent antibiotics use. The patient was discharged with the below written instructions and prescriptions. Discharge Exam - Head Exam Head Exam: ATRAUMATIC, NORMOCEPHALIC Discharge Plan - Follow Up Plan Condition: STABLE Disposition: HOME/ ROUTINE Referrals: Mercedez Parekh MD [Primary Care Provider] -
--- NOTE | 2017-08-07 14:04 | CARD ---
APPROVED REPORT EKG Measurement Heart [id number] <Conclusion> Normal sinus rhythm Possible Left atrial enlargement Septal infarct, age undetermined Inferior infarct, age undetermined ST & T wave abnormality, consider lateral ischemia Abnormal ECG
--- NOTE | 2017-08-07 14:50 | CP.PCM.CON ---
History of Present Illness - History of Present Illness History of Present Illness: Initial Nephrology Consultation: Assessment: Stable esophageal ulceration, gastroparesis Nausea/vomitting, diarrhoea ? related to above Diabetic chronic Kidney Disease (E11.22) Hypertensive Chronic Kidney Disease (I12.0) End stage renal disease (N18.6) dependence on hemodialysis (Z99.2) (TTS) Anemia (D64.9), Hyperphosphatemia (E83.39), Secondary Hyperparathyroidism (E21.1 ), HTN (I12.0) CAD s/p CABG Plan: Will plan for HD tomorrow as ordered. continue with Nephrovite 1 tab/day. no acute need today Hb stable Continue with hectorol with dialysis. BP control with meds as ordered. Patient on RAAS anjelica Glycemic control, Dialysis consistent diet Further work up/management as per primary team Dose meds/antibiotics for ESRD status. Avoid fleets enema/magnesium based laxatives. GI following Thanks for allowing me to participate in care of your patient. Will follow patient with you. 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 he feels better now. GI symptoms has resolved Denies chest pain, palpitation, shortness of breath, leg swelling ROS: Constitutional Symptoms: Denies fever. No chills. No Recent Weight Changes Eyes: denies change in vision, denies watery eyes, denies double vision Ears/Nose/Mouth/Throat: Denies Abnormal Taste. No Bad breath or Bad Taste. Cardiovascular: No chest pain. There is no shortness of breath. No palpitations. Pulmonary: No shortness of breath or cough. Gastrointestinal: denies abdominal pain now No further nausea. No vomiting now. diarrhoea resolved Genitourinary: makes urine. No associated pain or blood. has chronic martinez Neurological: Denies headaches. No dizziness. Denies loss of balance. Denies weakness, denies tingling/numbness Dermatological: No Rash or Bruising or ulcers. Psychiatric: Denies Anxiety. No depression. Denies hallucinations. Rheumatological: No joint pain. Denies Joint swelling Endocrine: Denies over tiredness. Denies Fatigue and denies Heat/Cold Intolerance. All other negative. Physical Examination: General Appearance: Comfortable, in no acute respiratory distress, co-operative . Vitals reviewed and noted as below Head; Atraumatic, normocephalic ENT: no ulcers no thrush. Tongue is midline. Oropharynx: no rash or ulcers. EYES: Pupils are equal, round and reactive to light accommodation. Eye muscles and extraocular movement intact. Sclera is anicteric. Neck; supple no lymphadenopathy, no thyromegaly or bruit Lungs: Normal respiratory rate/effort. Breath sounds bilateral equal and clear Heart: Normal rate. s1s2 normal. No rub or gallop. Extremities: no edema. No varicose veins Neurological: Patient is alert, awake and oriented to person, place and time. No focal deficit. Strength bilateral appropriate and equal Skin: Warm and dry. Normal turgor. No rash. Palpitation: Normal elasticity for age Abdomen: Abdomen is soft. Bowel sounds +. There is no abdominal tenderness, no guarding/rigidity or organomegaly Psych: normal insight and normal affect/mood MSK: no joint tenderness or swelling. Digits and nails normal, no deformity. had toe amputations : kidney or bladder not palpable. has martinez Access: left IJ permacath Labs/imaging reviewed. Past medical history, past surgical history, family history, social history, allergy reviewed and noted as below Family Hx: no hx of CKD. Non contributory Past Patient History - Infectious Disease Hx of Infectious Diseases: None - Tetanus Immunizations Tetanus Immunization: Unknown - Past Medical History & Family History Past Medical History?: Yes - Past Social History Smoking Status: Never Smoked - CARDIAC Hx Cardiac Disorders: Yes (CAD, AR x 3, CABG x 3) Hx Hypertension: Yes - PULMONARY Hx Respiratory Disorders: Yes Other/Comment: PULMONARY EDEMA - NEUROLOGICAL HX Cerebrovascular Accident: Yes - HEENT Hx HEENT Problems: Yes (CONTACT LENSES) - RENAL Hx Renal Failure: Yes (HD MWF) - ENDOCRINE/METABOLIC Hx Diabetes Mellitus Type 2: Yes - HEMATOLOGICAL/ONCOLOGICAL Hx Blood Disorders: No - INTEGUMENTARY Hx Dermatological Problems: Yes Other/Comment: righty lower ext rash, pt stated "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" - MUSCULOSKELETAL/RHEUMATOLOGICAL Hx Falls: Yes - GASTROINTESTINAL Hx Gastrointestinal Disorders: No - GENITOURINARY/GYNECOLOGICAL Hx Urinary Tract Infection: Yes - PSYCHIATRIC Hx Psychophysiologic Disorder: No Hx Depression: No Hx Emotional Abuse: No Hx Physical Abuse: No - SURGICAL HISTORY Hx Amputation: Yes (R toes) Hx Cardiac Catheterization: Yes (09/09) Hx Coronary Stent: Yes Hx Open Heart Surgery: Yes (12-26-12) Other/Comment: temporary dialysis catheter. ERIC PICC line - ANESTHESIA Hx Anesthesia: Yes Hx Anesthesia Reactions: No Hx Malignant Hyperthermia: No Meds Allergies/Adverse Reactions: Allergies Allergy/AdvReac Type Severity Reaction Status Date / Time Seafood Allergy ANAPHYLAXIS Uncoded 05/29/17 18:46 - Medications Medications: Current Medications Acetaminophen (Tylenol 325mg Tab) 650 mg PO Q6H PRN PRN Reason: Fever >100.4 F Amlodipine Besylate (Norvasc) 5 mg PO DAILY [facility] Last Admin: 08/07/17 09:15 Dose: 5 mg Aspirin (Ecotrin) 81 mg PO DAILY [facility] Last Admin: 08/07/17 09:14 Dose: 81 mg Atorvastatin Calcium (Lipitor) 40 mg PO DIN [facility] Hydralazine HCl (Apresoline) 10 mg IVP Q6H PRN PRN Reason: SBP > 160, DBP >100 Hydralazine HCl (Apresoline) 25 mg PO TID [facility] Last Admin: 08/07/17 09:14 Dose: 25 mg Insulin Human Regular (Humulin R Med) 0 units SC ACHS [facility] PRN Reason: Protocol Last Admin: 08/07/17 12:04 Dose: Not Given Isosorbide Mononitrate (Imdur) 60 mg PO DAILY [facility] Last Admin: 08/07/17 09:14 Dose: 60 mg Losartan Potassium (Cozaar) 100 mg PO DAILY [facility] Last Admin: 08/07/17 09:14 Dose: 100 mg Metoprolol Tartrate (Lopressor) 25 mg PO BID [facility] Last Admin: 08/07/17 09:15 Dose: 25 mg Ondansetron HCl (Zofran Inj) 4 mg IVP Q4H PRN PRN Reason: Nausea/Vomiting Pantoprazole Sodium (Protonix Inj) 40 mg IVP DAILY [facility] Last Admin: 08/07/17 09:15 Dose: 40 mg Pregabalin (Lyrica) 75 mg PO BID [facility] Last Admin: 08/07/17 09:15 Dose: 75 mg Tamsulosin HCl (Flomax) 0.4 mg PO DAILY [facility] Last Admin: 08/07/17 09:13 Dose: 0.4 mg Vitamin B Complex/Vit C/Folic Acid (Nephro-Eleni) 1 tab PO 0800 [facility] Last Admin: 08/07/17 08:23 Dose: 1 tab Zolpidem Tartrate (Ambien) 10 mg PO HS PRN; Protocol PRN Reason: Insomnia Results - Vital Signs Recent Vital Signs: Last Vital Signs Temp 98.7 F 08/07/17 08:00 Pulse 66 08/07/17 09:14 Resp 20 08/07/17 08:00 BP 132/82 08/07/17 09:14 Pulse Ox 97 08/07/17 08:00 - Labs Result Diagrams: 08/07/17 06:15 08/07/17 06:15 Labs: Laboratory Results - last 24 hr 08/06/17 08/06/17 08/06/17 17:21 21:32 22:30 WBC RBC Hgb Hct MCV MCH MCHC RDW Plt Count MPV Gran % Lymph % (Auto) [place] % (Auto) Eos % (Auto) Baso % (Auto) Gran # Lymph # [place] # Eos # Baso # Sodium Potassium Chloride Carbon Dioxide Anion Gap BUN Creatinine Est GFR ( Amer) Est GFR (Non-Af Amer) POC Glucose (mg/dL) 221 H Random Glucose Calcium Total Bilirubin AST ALT Alkaline Phosphatase Troponin I 0.08 D Total Protein Albumin Globulin Albumin/Globulin Ratio Blood Type A POSITIVE Antibody Screen Negative BBK History Checked Patient has bt 08/06/17 08/07/17 08/07/17 22:30 06:15 06:15 WBC 7.9 RBC 4.76 Hgb 13.4 L 13.7 L Hct 40.4 L 42.0 MCV 88.2 MCH 28.8 MCHC 32.6 RDW 16.8 H Plt Count 189 MPV 10.8 Gran % 61.3 Lymph % (Auto) 26.9 [place] % (Auto) 10.1 H Eos % (Auto) 1.3 L Baso % (Auto) 0.4 Gran # 4.85 Lymph # 2.1 [place] # 0.8 H Eos # 0.1 Baso # 0.03 Sodium 135 Potassium 3.8 Chloride 87 L Carbon Dioxide 31 Anion Gap 21 H BUN 48 H Creatinine 9.6 H* Est GFR ( Amer) 7 Est GFR (Non-Af Amer) 6 POC Glucose (mg/dL) Random Glucose 192 H Calcium 9.3 Total Bilirubin 0.8 AST 25 ALT 29 Alkaline Phosphatase 74 Troponin I 0.07 Total Protein 7.4 Albumin 4.2 Globulin 3.2 Albumin/Globulin Ratio 1.3 Blood Type Antibody Screen BBK History Checked 08/07/17 08/07/17 07:33 11:37 WBC RBC Hgb Hct MCV MCH MCHC RDW Plt Count MPV Gran % Lymph % (Auto) [place] % (Auto) Eos % (Auto) Baso % (Auto) Gran # Lymph # [place] # Eos # Baso # Sodium Potassium Chloride Carbon Dioxide Anion Gap BUN Creatinine Est GFR ( Amer) Est GFR (Non-Af Amer) POC Glucose (mg/dL) 216 H 116 H Random Glucose Calcium Total Bilirubin AST ALT Alkaline Phosphatase Troponin I Total Protein Albumin Globulin Albumin/Globulin Ratio Blood Type Antibody Screen BBK History Checked
--- NOTE | 2017-08-08 05:19 | CON ---
DATE: 08/07/2017 LOCATION: The patient is in room 560, bed 1. REASON FOR CONSULTATION: Coronary artery disease, history of coronary artery bypass surgery. The patient is admitted with black stools and vomiting and discolored emesis. HISTORY OF PRESENT ILLNESS: This is a 56-year-old male who is a poor compliant patient and patient does not take medicines regularly. On this admission also he stated that he was not taking any medication. He has known history of coronary artery disease. He has stent inserted prior to CABG, which was done six years ago at [facility]. The patient known to have diabetes, hypertension, peripheral neuropathy, and end-stage renal failure on dialysis three times a week. He was admitted with black emesis and black diarrhea since last three days. Denies any chest pain, shortness of breath, or palpitations. PAST MEDICAL HISTORY: Positive for diabetes mellitus, hypertension, peripheral neuropathy, coronary artery disease, six years ago had coronary artery bypass surgery; prior to that, he states he had stent insertion and after stent insertion, he had bypass surgery. The patient's other surgeries were left knee surgery, amputation of part of right foot, and coronary artery bypass surgery as mentioned above. ALLERGIES: THE PATIENT STATES HE IS ALLERGIC TO SHELLFISH. FAMILY HISTORY: Nonsignificant. PERSONAL HISTORY: He used to drink very heavy, stopped 5 to 6 years ago. He smokes marijuana off and on. PHYSICAL EXAMINATION: VITAL SIGNS: Blood pressure 108/70, respirations 20, pulse 63, and temperature 97.7. HEENT: Head is normocephalic. Eyes; pupils are normal. Conjunctivae normal. Nose and throat normal. NECK: JVP low. Carotids are equal. THORAX: AP diameter normal. Operation scar from previous CABG. LUNGS: Clear. CARDIOVASCULAR: S1 and S2. No rub. No click. ABDOMEN: Soft. No tenderness. Bowel sounds normal. EXTREMITIES: No clubbing, no cyanosis. The patient had partial amputation of the right foot. LABORATORY DATA: WBC 7.9, hemoglobin 13.7, hematocrit 42.0, and platelets 189,000. Sodium 135, potassium 3.8, BUN 48, creatinine 9.6, and random sugar 182. AST and ALT normal. Troponin x2 negative. Total protein 10.4 and albumin 4.2. EKG showed regular sinus rhythm given III and aVF suggestive of old inferior wall OK, ST-T changes. CAT scan of abdomen and pelvis shows small hiatal hernia with thickening of the wall of the distal esophagus. Chronic diverticula were seen, suggestion of esophagitis or other intrinsic invasive volume not excluded because the patient had small hiatal hernia with wall thickening of the distal esophagus. Stomach is incompletely distended, which in part account thick wall appearance, gastritis, intrinsic oblique invasive volume cannot be excluded, scattered colonic diverticula without any diverticulitis. DIAGNOSES: Blackish coloration diarrhea and vomiting; renal failure, on dialysis; diabetes mellitus, coronary artery disease, status post coronary artery bypass surgery; dyslipidemia. PLAN: Clinically, patient's cardiac status is stable. Check patient for C. difficile antigen and toxin. Troponins are 0.08 and 0.07, both are normal. No evidence of acute coronary syndrome. The C. diff toxin has been sent for analysis. In the meantime, he is on isosorbide mononitrate 60 mg daily, Lipitor 40 daily, metoprolol 25 mg b.i.d., Lyrica 75 mg b.i.d., amlodipine 5 mg daily, and Pepcid 20 mg IV stat was given. Then, patient has been getting Protonix IV, isosorbide mononitrate 60 mg daily, losartan 100 daily, hydralazine 25 mg t.i.d., and patient is on Ecotrin 81 mg daily. From cardiac point of view, patient any GI procedure needed. The patient then go for GI procedure at moderate risk and in the meantime, we will continue these medications and we will follow with you. Corey Shine MD
--- NOTE | 2017-08-08 07:21 | CP.PCM.PN ---
<Yazmin Barbosa - Last Filed: 08/08/17 13:48> Subjective - Date & Time of Evaluation Date of Evaluation: 08/08/17 Time of Evaluation: 07:20 - Subjective Subjective: Yazmin Barbosa, PGY1, GI Progress Note for Dr Barragan: Pt seen and examined at bedside. Pt had HD this AM. Pt tolerated PO diet well yesterday, and had good lunch today as well. Pt had several BM, loose brown yesterday, no blood (sent for C diff and stool studies). Denies nausea, vomiting , abdominal pain. Pt spiked a temp 102 after dialysis, pancultured per primary team. Objective - Vital Signs/Intake and Output Vital Signs (last 24 hours): Temp Pulse Resp BP Pulse Ox 97.8 F 64 18 98/54 L 96 08/08/17 00:00 08/08/17 00:00 08/08/17 00:00 08/08/17 00:00 08/08/17 00:00 Intake and Output: 08/08/17 08/08/17 06:59 18:59 Intake Total 900 Output Total 325 Balance 575 - Medications Medications: Current Medications Acetaminophen (Tylenol 325mg Tab) 650 mg PO Q6H PRN PRN Reason: Fever >100.4 F Amlodipine Besylate (Norvasc) 5 mg PO DAILY [facility] Last Admin: 08/07/17 09:15 Dose: 5 mg Aspirin (Ecotrin) 81 mg PO DAILY [facility] Last Admin: 08/07/17 09:14 Dose: 81 mg Atorvastatin Calcium (Lipitor) 40 mg PO DIN [facility] Last Admin: 08/07/17 17:22 Dose: 40 mg Hydralazine HCl (Apresoline) 10 mg IVP Q6H PRN PRN Reason: SBP > 160, DBP >100 Hydralazine HCl (Apresoline) 25 mg PO TID [facility] Last Admin: 08/07/17 17:21 Dose: 25 mg Insulin Human Regular (Humulin R Med) 0 units SC ACHS [facility] PRN Reason: Protocol Last Admin: 08/07/17 22:06 Dose: Not Given Isosorbide Mononitrate (Imdur) 60 mg PO DAILY [facility] Last Admin: 08/07/17 09:14 Dose: 60 mg Losartan Potassium (Cozaar) 100 mg PO DAILY [facility] Last Admin: 08/07/17 09:14 Dose: 100 mg Metoprolol Tartrate (Lopressor) 25 mg PO BID [facility] Last Admin: 08/07/17 17:20 Dose: 25 mg Ondansetron HCl (Zofran Inj) 4 mg IVP Q4H PRN PRN Reason: Nausea/Vomiting Pantoprazole Sodium (Protonix Inj) 40 mg IVP DAILY [facility] Last Admin: 08/07/17 09:15 Dose: 40 mg Pregabalin (Lyrica) 75 mg PO BID [facility] Last Admin: 08/07/17 17:20 Dose: 75 mg Tamsulosin HCl (Flomax) 0.4 mg PO DAILY [facility] Last Admin: 08/07/17 09:13 Dose: 0.4 mg Vitamin B Complex/Vit C/Folic Acid (Nephro-Eleni) 1 tab PO 0800 [facility] Last Admin: 08/07/17 08:23 Dose: 1 tab Zolpidem Tartrate (Ambien) 10 mg PO HS PRN; Protocol PRN Reason: Insomnia - Labs Labs: 08/07/17 06:15 08/07/17 06:15 PT 13.4 SECONDS (9.4-12.5) H 08/06/17 14:32 INR 1.22 (0.93-1.08) H 08/06/17 14:32 APTT 33.5 Seconds (25.1-36.5) 08/06/17 14:32 - Constitutional Appears: Non-toxic, Older Than Stated Age - Head Exam Head Exam: ATRAUMATIC, NORMOCEPHALIC - Eye Exam Eye Exam: EOMI, PERRL. absent: Scleral icterus Pupil Exam: PERRL - ENT Exam ENT Exam: Mucous Membranes Moist - Respiratory Exam Respiratory Exam: Clear to Ausculation Bilateral. absent: Decreased Breath Sounds, Respiratory Distress - Cardiovascular Exam Cardiovascular Exam: RRR, +S1, +S2. absent: Murmur - GI/Abdominal Exam GI & Abdominal Exam: Soft, Normal Bowel Sounds. absent: Distended, Rigid, Tenderness, Mass, Organomegaly, Rebound - Extremities Exam Extremities Exam: absent: Calf Tenderness, Pedal Edema - Back Exam Back Exam: NORMAL INSPECTION - Neurological Exam Neurological Exam: Alert, Awake, Oriented x3 - Psychiatric Exam Psychiatric exam: Normal Affect, Normal Mood - Skin Skin Exam: Dry, Normal Color, Warm Assessment and Plan - Assessment and Plan (Free Text) Assessment: 56 years old male with hx ESRD on HD, DM II, chronic gastritis, recent IV abx use for Pseudomonal bacteremia, presents for vomiting and diarrheal episodes: - 2/2 likely gastroenteritis vs infectious colitis (c diff) due to recent antibiotic usage vs chronic gastritis ESRD on HD CAD CVA Hyperlipidemia DM Abdominal pain, resolved. Diarrhea, improving. Plan: - Febrile today, f/u cultures and IV abx per primary team - Continue with PPI - Nausea/vomiting resolved, diarrhea improving, f/u c diff and stool studies results. If positive for c diff, can start on PO Flagyl 500mg Q8H x 14 days or PO vancomycin 125mg QID for 10-14 days. - Pt tolerating PO diet well. - Recommend outpatient colonoscopy after the acute illness resolves. - Thank you for your consult. Please re-consult us for any future concerns. Discussed with GI fellow and attending, Dr Barragan. Yazmin Barbosa, PGY1 <Hung Barragan - Last Filed: 08/08/17 14:22> Objective - Vital Signs/Intake and Output Vital Signs (last 24 hours): Temp Pulse Resp BP Pulse Ox 102.0 F H 80 20 200/79 H 99 08/08/17 11:12 08/08/17 11:22 08/08/17 08:00 08/08/17 11:22 08/08/17 08:00 Intake and Output: 08/08/17 08/08/17 06:59 18:59 Intake Total 900 Output Total 325 Balance 575 - Medications Medications: Current Medications Acetaminophen (Tylenol 325mg Tab) 650 mg PO Q4H PRN PRN Reason: Temperature Amlodipine Besylate (Norvasc) 5 mg PO DAILY [facility] Last Admin: 08/08/17 11:22 Dose: 5 mg Aspirin (Ecotrin) 81 mg PO DAILY [facility] Last Admin: 08/08/17 11:16 Dose: 81 mg Atorvastatin Calcium (Lipitor) 40 mg PO DIN [facility] Last Admin: 08/07/17 17:22 Dose: 40 mg Hydralazine HCl (Apresoline) 10 mg IVP Q6H PRN PRN Reason: SBP > 160, DBP >100 Hydralazine HCl (Apresoline) 25 mg PO TID [facility] Last Admin: 08/08/17 11:21 Dose: 25 mg Vancomycin HCl (Vancomycin 1gm) 1 gm in 250 mls @ 167 mls/hr IVPB DAILY [facility] PRN Reason: Protocol Last Admin: 08/08/17 13:19 Dose: 167 mls/hr Insulin Human Regular (Humulin R Med) 0 units SC ACHS [facility] PRN Reason: Protocol Last Admin: 08/08/17 13:05 Dose: Not Given Isosorbide Mononitrate (Imdur) 60 mg PO DAILY [facility] Last Admin: 08/08/17 11:21 Dose: 60 mg Losartan Potassium (Cozaar) 100 mg PO DAILY [facility] Last Admin: 08/08/17 11:21 Dose: 100 mg Metoprolol Tartrate (Lopressor) 25 mg PO BID [facility] Last Admin: 08/08/17 11:22 Dose: 25 mg Ondansetron HCl (Zofran Inj) 4 mg IVP Q4H PRN PRN Reason: Nausea/Vomiting Pantoprazole Sodium (Protonix Ec Tab) 40 mg PO DAILY [facility] Pregabalin (Lyrica) 75 mg PO BID [facility] Last Admin: 08/08/17 11:15 Dose: 75 mg Sevelamer HCl (Renagel) 800 mg PO TID [facility] Tamsulosin HCl (Flomax) 0.4 mg PO DAILY [facility] Last Admin: 08/08/17 11:15 Dose: 0.4 mg Vitamin B Complex/Vit C/Folic Acid (Nephro-Eleni) 1 tab PO 0800 [facility] Last Admin: 08/08/17 11:15 Dose: 1 tab Zolpidem Tartrate (Ambien) 10 mg PO HS PRN; Protocol PRN Reason: Insomnia - Labs Labs: 08/08/17 11:20 08/08/17 07:00 PT 13.4 SECONDS (9.4-12.5) H 08/06/17 14:32 INR 1.22 (0.93-1.08) H 08/06/17 14:32 APTT 33.5 Seconds (25.1-36.5) 08/06/17 14:32 Attending/Attestation - Attestation I have personally seen and examined this patient.: Yes I have fully participated in the care of the patient.: Yes I have reviewed all pertinent clinical information, including history, physical exam and plan: Yes Notes (Text): 08/08/17 14:19 56 years old male with h/o ESRD on HD, DM, h/o Pseudomonal bacteremia s/p IV abx therapy admitted with n/v and diarrhea, also with fever. 1. Nausea and vomiting 2. Diarrhea 3. Fever Plan: -recommend infectious workup including stool culture, c diff, ova and parasites as well as blood cultures considering recent h/o bacteremia -GI symptoms are improved currently, tolerated diet, without pain or diarrhea or vomiting -continue supportive measures in the meantimes -continue PPI therapy for h/o esophagitis -had recent endoscopy, no need for repeat at this time -outpatient colonoscopy advised as above
[2017-08-08 07:22] LABS: BASO # 0.05 K/mm3 (0.0-2.0); BASO % 0.9 % (0.0-3.0); EOS # 0.1 (0.0-0.7); EOS % 2.5 % (1.5-5.0); GRAN # 3.21 (1.4-6.5); GRAN % 57.3 % (50.0-68.0); HEMATOCRIT 38.9 % (42.0-52.0); LYMPH # 1.8 (1.2-3.4); LYMPH % 31.6 % (22.0-35.0); MEAN CELL VOLUME 86.8 fl (80.0-105.0); MEAN CORPUSCULAR HEMOGLOBIN 28.1 pg (25.0-35.0); MEAN CORPUSCULAR HGB CONC 32.4 g/dl (31.0-37.0); MEAN PLATELET VOLUME 11.3 fl (7.0-11.0); MONO # 0.4 (0.1-0.6); MONO % 7.7 % (1.0-6.0); RED CELL DISTRIBUTION WIDTH 16.3 % (11.5-14.5); WHITE BLOOD COUNT 5.6 10^3/ul (4.5-11.0)
[2017-08-08 07:46] LABS: ALB/GLOB RATIO 1.4 (1.1-1.8); BILIRUBIN,TOTAL 0.7 mg/dL (0.2-1.3); CALCIUM 8.4 mg/dL (8.4-10.5); MAGNESIUM 2.5 mg/dL (1.7-2.2); PHOSPHOROUS 6.6 mg/dL (2.5-4.5); POTASSIUM 3.5 mmol/L (3.6-5.0); TOTAL PROTEIN 6.6 g/dL (5.8-8.3)
[2017-08-08] MEDS ORDERED: Meropenem 500 MG in Sodium Chloride 0.9% 50 ML IVPB SCH ×3 (11:15→23:15)
[2017-08-08] MEDS ORDERED: Vancomycin 1gm in NS 250ml 1 GM/250 ML BAG IVPB SCH (11:15)
[2017-08-08] MEDS: Multivitamin Vitamin B Complex (Nephro-Vite) Tab PO SCH (11:15)
[2017-08-08] MEDS ORDERED: Meropenem 500 MG in Sodium Chloride 0.9% 100 ML IVPB SCH ×2 (11:18→14:45)
[2017-08-08] MEDS: Insulin Reg-MEDIUM-Coverage SC SCH ×4 (11:23→22:48)
--- NOTE | 2017-08-08 11:25 | CP.PCM.PN ---
Subjective - Date & Time of Evaluation Date of Evaluation: 08/08/17 Time of Evaluation: 11:22 - Subjective Subjective: Follow up Nephrology Consultation: Assessment: Stable esophageal ulceration, gastroparesis Nausea/vomitting, diarrhoea ? related to above Diabetic chronic Kidney Disease (E11.22) Hypertensive Chronic Kidney Disease (I12.0) End stage renal disease (N18.6) dependence on hemodialysis (Z99.2) (TTS) Anemia (D64.9), Hyperphosphatemia (E83.39), Secondary Hyperparathyroidism (E21.1 ), HTN (I12.0) CAD s/p CABG chronic urine retention Plan: For HD today as ordered. continue with Nephrovite 1 tab/day. Hb stable. BEREKET not indicated Continue with hectorol with dialysis. BP control with meds as ordered. Patient on RAAS anjelica Glycemic control, Dialysis consistent diet Further work up/management as per primary team Dose meds/antibiotics for ESRD status. Avoid fleets enema/magnesium based laxatives. GI following started renagel 800 mg TID with meals for high phos Thanks for allowing me to participate in care of your patient. Will follow patient with you. 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 he feels better now. GI symptoms has resolved Denies chest pain, palpitation, shortness of breath, leg swelling denies further GI symptoms refuses HD for 4 hrs as ordered, regularly cuts treatment time to 3 hrs only, counselled and educated multiple times Physical Examination: seen on HD General Appearance: Comfortable, in no acute respiratory distress, co-operative . Vitals reviewed and noted as below Head; Atraumatic, normocephalic ENT: no ulcers no thrush. Tongue is midline. Oropharynx: no rash or ulcers. EYES: Pupils are equal, round and reactive to light accommodation. Eye muscles and extraocular movement intact. Sclera is anicteric. Neck; supple no lymphadenopathy, no thyromegaly or bruit Lungs: Normal respiratory rate/effort. Breath sounds bilateral equal and clear Heart: Normal rate. s1s2 normal. No rub or gallop. Extremities: no edema. No varicose veins Neurological: Patient is alert, awake and oriented to person, place and time. No focal deficit. Strength bilateral appropriate and equal Skin: Warm and dry. Normal turgor. No rash. Palpitation: Normal elasticity for age Abdomen: Abdomen is soft. Bowel sounds +. There is no abdominal tenderness, no guarding/rigidity or organomegaly Psych: normal insight and normal affect/mood MSK: no joint tenderness or swelling. Digits and nails normal, no deformity. had toe amputations : kidney or bladder not palpable. has chronic martinez Access: permacath Labs/imaging reviewed. Past medical history, past surgical history, family history, social history, allergy reviewed and noted as below Family Hx: no hx of CKD. Non contributory Objective - Vital Signs/Intake and Output Vital Signs (last 24 hours): Temp Pulse Resp BP Pulse Ox 97.6 F 79 20 145/91 H 99 08/08/17 08:00 08/08/17 08:00 08/08/17 08:00 08/08/17 08:00 08/08/17 08:00 Intake and Output: 08/08/17 08/08/17 06:59 18:59 Intake Total 900 Output Total 325 Balance 575 - Medications Medications: Current Medications Acetaminophen (Tylenol 325mg Tab) 650 mg PO Q4H PRN PRN Reason: Temperature Amlodipine Besylate (Norvasc) 5 mg PO DAILY [facility] Last Admin: 08/07/17 09:15 Dose: 5 mg Aspirin (Ecotrin) 81 mg PO DAILY [facility] Last Admin: 08/07/17 09:14 Dose: 81 mg Atorvastatin Calcium (Lipitor) 40 mg PO DIN [facility] Last Admin: 08/07/17 17:22 Dose: 40 mg Hydralazine HCl (Apresoline) 10 mg IVP Q6H PRN PRN Reason: SBP > 160, DBP >100 Hydralazine HCl (Apresoline) 25 mg PO TID [facility] Last Admin: 08/07/17 17:21 Dose: 25 mg Vancomycin HCl (Vancomycin 1gm) 1 gm in 250 mls @ 167 mls/hr IVPB DAILY [facility] PRN Reason: Protocol Meropenem 500 mg/ Sodium (Chloride) 100 mls @ 100 mls/hr IVPB Q24H [facility] PRN Reason: Protocol Stop: 08/08/17 12:14 Insulin Human Regular (Humulin R Med) 0 units SC ACHS [facility] PRN Reason: Protocol Last Admin: 08/07/17 22:06 Dose: Not Given Isosorbide Mononitrate (Imdur) 60 mg PO DAILY [facility] Last Admin: 08/07/17 09:14 Dose: 60 mg Losartan Potassium (Cozaar) 100 mg PO DAILY [facility] Last Admin: 08/07/17 09:14 Dose: 100 mg Metoprolol Tartrate (Lopressor) 25 mg PO BID [facility] Last Admin: 08/07/17 17:20 Dose: 25 mg Ondansetron HCl (Zofran Inj) 4 mg IVP Q4H PRN PRN Reason: Nausea/Vomiting Pantoprazole Sodium (Protonix Inj) 40 mg IVP DAILY [facility] Last Admin: 08/07/17 09:15 Dose: 40 mg Pregabalin (Lyrica) 75 mg PO BID [facility] Last Admin: 08/07/17 17:20 Dose: 75 mg Sevelamer HCl (Renagel) 800 mg PO TID [facility] Tamsulosin HCl (Flomax) 0.4 mg PO DAILY [facility] Last Admin: 08/07/17 09:13 Dose: 0.4 mg Vitamin B Complex/Vit C/Folic Acid (Nephro-Eleni) 1 tab PO 0800 [facility] Last Admin: 08/07/17 08:23 Dose: 1 tab Zolpidem Tartrate (Ambien) 10 mg PO HS PRN; Protocol PRN Reason: Insomnia - Labs Labs: 08/08/17 07:00 08/08/17 07:00 PT 13.4 SECONDS (9.4-12.5) H 08/06/17 14:32 INR 1.22 (0.93-1.08) H 08/06/17 14:32 APTT 33.5 Seconds (25.1-36.5) 08/06/17 14:32
[2017-08-08 11:33] LABS: EOS % 2.3 % (1.5-5.0); GRAN # 1.07 (1.4-6.5); GRAN % 81.6 % (50.0-68.0); HEMATOCRIT 43.1 % (42.0-52.0); LYMPH # 0.2 (1.2-3.4); LYMPH % 15.3 % (22.0-35.0); MEAN CORPUSCULAR HEMOGLOBIN 28.6 pg (25.0-35.0); MEAN CORPUSCULAR HGB CONC 32.5 g/dl (31.0-37.0); MEAN PLATELET VOLUME 10.3 fl (7.0-11.0); MONO % 0.8 % (1.0-6.0); RED CELL DISTRIBUTION WIDTH 16.4 % (11.5-14.5)
[2017-08-08 11:38] LABS: WHITE BLOOD COUNT 1.3 10^3/ul (4.5-11.0)
--- NOTE | 2017-08-08 13:19 | RAD ---
HISTORY: temp COMPARISON: 06/10/2017 FINDINGS: LUNGS: No active pulmonary disease. PLEURA: No significant pleural effusion identified, no pneumothorax apparent. CARDIOVASCULAR: Mild cardiomegaly OSSEOUS STRUCTURES: Sternal wires VISUALIZED UPPER ABDOMEN: Normal. OTHER FINDINGS: Right IJ line in the right atrium IMPRESSION: No active disease.
--- NOTE | 2017-08-08 15:44 | CP.PCM.PN ---
<Kayleigh Martinez - Last Filed: 08/08/17 16:14> Subjective - Date & Time of Evaluation Date of Evaluation: 08/08/17 Time of Evaluation: 15:41 - Subjective Subjective: Kayleigh Martinez DO PGY-1: Hospitalist Service Patient seen and examined at bedside. Patient reports no nausea or vomiting, but reports persistence of diarrhea. Patient developed fever and body chills after dialysis, further work-up was necessary in light of this. Nurse reports no events overnight. Objective - Vital Signs/Intake and Output Vital Signs (last 24 hours): Temp Pulse Resp BP Pulse Ox 100.9 F H 90 18 105/69 99 08/08/17 15:10 08/08/17 15:10 08/08/17 15:10 08/08/17 15:10 08/08/17 15:10 Intake and Output: 08/08/17 08/08/17 06:59 18:59 Intake Total 900 Output Total 325 Balance 575 - Medications Medications: Current Medications Acetaminophen (Tylenol 325mg Tab) 650 mg PO Q4H PRN PRN Reason: Temperature Amlodipine Besylate (Norvasc) 5 mg PO DAILY [facility] Last Admin: 08/08/17 11:22 Dose: 5 mg Aspirin (Ecotrin) 81 mg PO DAILY [facility] Last Admin: 08/08/17 11:16 Dose: 81 mg Atorvastatin Calcium (Lipitor) 40 mg PO DIN [facility] Last Admin: 08/07/17 17:22 Dose: 40 mg Hydralazine HCl (Apresoline) 10 mg IVP Q6H PRN PRN Reason: SBP > 160, DBP >100 Hydralazine HCl (Apresoline) 25 mg PO TID [facility] Last Admin: 08/08/17 14:31 Dose: 25 mg Meropenem 500 mg/ Sodium (Chloride) 100 mls @ 100 mls/hr IVPB Q24H [facility] PRN Reason: Protocol Stop: 08/08/17 15:44 Insulin Human Regular (Humulin R Med) 0 units SC ACHS [facility] PRN Reason: Protocol Last Admin: 08/08/17 13:05 Dose: Not Given Isosorbide Mononitrate (Imdur) 60 mg PO DAILY [facility] Last Admin: 08/08/17 11:21 Dose: 60 mg Losartan Potassium (Cozaar) 100 mg PO DAILY [facility] Last Admin: 08/08/17 11:21 Dose: 100 mg Metoprolol Tartrate (Lopressor) 25 mg PO BID [facility] Last Admin: 08/08/17 11:22 Dose: 25 mg Ondansetron HCl (Zofran Inj) 4 mg IVP Q4H PRN PRN Reason: Nausea/Vomiting Pantoprazole Sodium (Protonix Ec Tab) 40 mg PO DAILY [facility] Pregabalin (Lyrica) 75 mg PO BID [facility] Last Admin: 08/08/17 11:15 Dose: 75 mg Sevelamer HCl (Renagel) 800 mg PO TID [facility] Last Admin: 08/08/17 14:31 Dose: 800 mg Tamsulosin HCl (Flomax) 0.4 mg PO DAILY [facility] Last Admin: 08/08/17 11:15 Dose: 0.4 mg Vancomycin HCl (Vancocin 25 Mg/Ml (Oral Use)) 250 mg PO Q6H [facility] PRN Reason: Protocol Vitamin B Complex/Vit C/Folic Acid (Nephro-Eleni) 1 tab PO 0800 [facility] Last Admin: 08/08/17 11:15 Dose: 1 tab Zolpidem Tartrate (Ambien) 10 mg PO HS PRN; Protocol PRN Reason: Insomnia - Labs Labs: 08/08/17 11:20 08/08/17 07:00 PT 13.4 SECONDS (9.4-12.5) H 08/06/17 14:32 INR 1.22 (0.93-1.08) H 08/06/17 14:32 APTT 33.5 Seconds (25.1-36.5) 08/06/17 14:32 - Constitutional Appears: Unkempt, Chronically Ill - Head Exam Head Exam: ATRAUMATIC, NORMOCEPHALIC - Eye Exam Eye Exam: EOMI, Normal appearance - ENT Exam ENT Exam: Mucous Membranes Moist, Normal Oropharynx - Respiratory Exam Respiratory Exam: Clear to Ausculation Bilateral, NORMAL BREATHING PATTERN - Cardiovascular Exam Cardiovascular Exam: RRR, +S1, +S2 - GI/Abdominal Exam GI & Abdominal Exam: Soft, Tenderness (non-tender), Hyperactive Bowel Sounds. absent: Rebound - Extremities Exam Additional comments: right forefoot missing - Back Exam Back Exam: NORMAL INSPECTION. absent: CVA tenderness (L), CVA tenderness (R) - Neurological Exam Neurological Exam: Alert, Awake, CN II-XII Intact Neuro motor strength exam: Left Upper Extremity: 5, Right Upper Extremity: 5, Left Lower Extremity: 5, Right Lower Extremity: 5 - Psychiatric Exam Psychiatric exam: Normal Affect, Normal Mood - Skin Skin Exam: Dry, Intact, Normal Color, Warm Assessment and Plan - Assessment and Plan (Free Text) Assessment: 56 year old male with a past medical history of ESRD, CAD, DM II, CVA, hypertension, dyslipidemia who presented with 2.5 days of brisk, reportedly jet black diarrhea, vomiting, decreased PO intake and feeling of generalized malaise. Plan: 1a) New-onset fever, chills, post-dialysis in patient with history of Pseudomonas bacteremia secondary to infected permacath. - 2 sets of blood cultures, 1 sputum culture, urine culture ordered - Tylenol 650 mg q6h PRN fever greater than 100.4 - Vancomycin 1 gm q24 - Infectious disease consulted, Dr. Cohn. - 500 gram of Meropenem administered prophylactically given the history of Pseudomonas bacteremia - Lactic acide level initially less than 2 1b) Nausea and vomiting resolved; however, diarrhea has persisted - GI consulted, , appreciate recommendations. - C. difficile antigen positive and toxin negative: Vancomycin oral solution 250 mg q6h - HHD renal dialysis diet - Zofran 4 mg IVP q4h - Protonix 40 mg IVP Daily - CT A/P w/o contrast indicated no acute disease, see full report for details. 2) CAD - Aspirin 81 - Atorvastatin 40 - Isosorbide Mononitrate 60. 3) ESRD - Dr. Garrett consulted - Continue with Nephrovite - Sevelamer 800 mg TID - Dialysis Monday, , Monday per nephrology recommendations. 4) Hypertension - Hydralazine 10 mg IVP for SBP >160 or DBP >100 - Hydralazine 25 mg TID - Metoprolol 25 mg BID - Losartan 100 mg PO daily - Amlodipine 10 mg PO daily 5) DM II - ISS medium - Levemir to be added once patient is tolerating PO diet normally. - Pregabalin 75 mg BID daily - 6) Urinary retention - Patient has Macias - Tamsulosin 0.4 mg PO daily 7) DVT/GI prophylaxis - SCD/Protonix 40 mg IVP Daily <Corey Moore - Last Filed: 08/08/17 16:48> Objective - Vital Signs/Intake and Output Vital Signs (last 24 hours): Temp Pulse Resp BP Pulse Ox 100.9 F H 90 18 105/69 99 08/08/17 15:10 08/08/17 15:10 08/08/17 15:10 08/08/17 15:10 08/08/17 15:10 Intake and Output: 08/08/17 08/08/17 06:59 18:59 Intake Total 900 Output Total 325 Balance 575 - Medications Medications: Current Medications Acetaminophen (Tylenol 325mg Tab) 650 mg PO Q4H PRN PRN Reason: Temperature Amlodipine Besylate (Norvasc) 5 mg PO DAILY [facility] Last Admin: 08/08/17 11:22 Dose: 5 mg Aspirin (Ecotrin) 81 mg PO DAILY [facility] Last Admin: 08/08/17 11:16 Dose: 81 mg Atorvastatin Calcium (Lipitor) 40 mg PO DIN [facility] Last Admin: 08/07/17 17:22 Dose: 40 mg Hydralazine HCl (Apresoline) 10 mg IVP Q6H PRN PRN Reason: SBP > 160, DBP >100 Hydralazine HCl (Apresoline) 25 mg PO TID [facility] Last Admin: 08/08/17 14:31 Dose: 25 mg Insulin Human Regular (Humulin R Med) 0 units SC [facility] PRN Reason: Protocol Last Admin: 08/08/17 13:05 Dose: Not Given Isosorbide Mononitrate (Imdur) 60 mg PO DAILY [facility] Last Admin: 08/08/17 11:21 Dose: 60 mg Losartan Potassium (Cozaar) 100 mg PO DAILY [facility] Last Admin: 08/08/17 11:21 Dose: 100 mg Metoprolol Tartrate (Lopressor) 25 mg PO BID [facility] Last Admin: 08/08/17 11:22 Dose: 25 mg Ondansetron HCl (Zofran Inj) 4 mg IVP Q4H PRN PRN Reason: Nausea/Vomiting Pantoprazole Sodium (Protonix Ec Tab) 40 mg PO DAILY [facility] Pregabalin (Lyrica) 75 mg PO BID [facility] Last Admin: 08/08/17 11:15 Dose: 75 mg Sevelamer HCl (Renagel) 800 mg PO TID [facility] Last Admin: 08/08/17 14:31 Dose: 800 mg Tamsulosin HCl (Flomax) 0.4 mg PO DAILY [facility] Last Admin: 08/08/17 11:15 Dose: 0.4 mg Vancomycin HCl (Vancocin 25 Mg/Ml (Oral Use)) 250 mg PO Q6H [facility] PRN Reason: Protocol Vitamin B Complex/Vit C/Folic Acid (Nephro-Eleni) 1 tab PO 0800 [facility] Last Admin: 08/08/17 11:15 Dose: 1 tab Zolpidem Tartrate (Ambien) 10 mg PO HS PRN; Protocol PRN Reason: Insomnia - Labs Labs: 08/08/17 11:20 08/08/17 07:00 PT 13.4 SECONDS (9.4-12.5) H 08/06/17 14:32 INR 1.22 (0.93-1.08) H 08/06/17 14:32 APTT 33.5 Seconds (25.1-36.5) 08/06/17 14:32 Attending/Attestation - Attestation I have personally seen and examined this patient.: Yes I have fully participated in the care of the patient.: Yes I have reviewed all pertinent clinical information, including history, physical exam and plan: Yes Notes (Text): 08/08/17 16:46 Patient was seen and examined with director medical science. Patient is found to be febrile Rectal Temperature 102 F, Sepsis work ip is ordered.Patient is empiriacly started on broad spectrum antibiotic Vancomycin and Meropenem, we will follow up blood cultures, lactic acid, Procalcitonin and sepsis work up. Management plan was discussed in detail with patient Education was provided.
[2017-08-08] MEDS ORDERED: Vancomycin 25 MG/ML PO SCH (15:45)
--- NOTE | 2017-08-08 15:59 | PN ---
DATE: 08/08/2017 REASON FOR CONSULTATION AND FOLLOWUP: History of coronary artery disease, CABG, admitted with black stool and coffee ground vomitus. SUBJECTIVE: The patient denies any chest pain, shortness of breath, or any palpitation. Denies any further episode of melena. Denies any episodes of black tarry stools. Seen in dialysis. States that he has good appetite now. OBJECTIVE: GENERAL: Not in apparent distress. Having dialysis. No further episodes of vomiting or diarrhea was reported. VITAL SIGNS: Temperature is afebrile. Heart rate 79, blood pressure 145/91. HEENT: PERRLA. Extraocular muscles intact. NECK: Supple. No carotid bruit or thyromegaly. CHEST: Clear to auscultation. HEART: S1 and S2 regular. ABDOMEN: Soft. EXTREMITIES: Clubbing and cyanosis negative. LABORATORY DATA: WBC 5.6, hemoglobin 12.6, hematocrit 38.9, and platelet count 207. Chemistry shows sodium 138, potassium 3.5, chloride 88, carbon dioxide 25, anion gap of 22, BUN 58, creatinine 10.8. IMPRESSION: Gastrointestinal bleed, but wean if stable. No further episode of bleeding noted. History of end-stage renal disease, on dialysis, having dialysis now. History of coronary artery disease, coronary artery bypass graft 6 years ago at [facility], [place]. Prior to that, the patient had stent. No evidence of acute myocardial infarction. The patient is cleared to go for endoscopy if needed. We will follow with you. Cardiac stress test stable. Thank you Dr. Ponce for providing us the opportunity in taking care of the patient. We will follow with you. Corey Mcdermott MD
[2017-08-08] MEDS: Vancomycin 25 MG/ML PO SCH ×2 (17:18→23:20)
[2017-08-08] MEDS ORDERED: Sodium Chloride 0.9% 1,000 ML IV SCH (17:45)
--- NOTE | 2017-08-08 17:49 | PCM.SEPTIC ---
<JuanKayleigh - Last Filed: 08/08/17 17:34> Sepsis Progress Note - Reassessment Type Date of Evaluation: 08/08/17 Time of Evaluation: 17:34 Reassessment Type: Non-invasive reassessment - Non Invasive Reassessment Were the most recent vital sign reviewed: Yes Vital Sign (Latest): Temp Pulse Resp BP Pulse Ox 100.7 F H 90 18 102/60 99 08/08/17 17:21 08/08/17 17:17 08/08/17 15:10 08/08/17 17:17 08/08/17 15:10 Cardiovascular: Yes: Regular Rate, Rhythm Respiratory: Yes: Normal Breath Sounds. No: Crackles Capillary Refill: Normal (Less than 2 sec) Pulses: Normal Radial, Normal Dorsalis Pedis, Normal Posterior Tibialis Skin: Normal Color <Corey Moore - Last Filed: 08/10/17 16:51> Sepsis Progress Note - Non Invasive Reassessment Vital Sign (Latest): Temp Pulse Resp BP Pulse Ox 101.2 F H 72 20 113/57 L 98 08/10/17 16:21 08/10/17 16:21 08/10/17 16:21 08/10/17 16:21 08/10/17 16:21 Attending/Attestation - Attestation I have personally seen and examined this patient.: Yes I have fully participated in the care of the patient.: Yes I have reviewed all pertinent clinical information, including history, physical exam and plan: Yes Notes (Text): 08/10/17 16:50 Please see progress note from 08/09/17
--- NOTE | 2017-08-08 23:02 | CP.PCM.CON ---
History of Present Illness - History of Present Illness History of Present Illness: Infectious Disease Consultation: August 08, 2017 56 yo male known to me in the distant past presenting with fevers and body chills after dialysis today. His initial presentation was for jet black, brisk diarrhea and concurrent vomiting. The patient apparently completed a treatment for Pseudomonas about a week before admission. Patient is leukopenic and neutropenic at this time. Patient does not know what antibiotic he received in the outpatient setting. PMHx: ESRD on HD, DM II, CAD, CVA, dyslipidemia, multiple abdominal surgeries, HTN, benign prostatic hypertrophy. PSHx: CABG in 2012 Allergies: Morphine and Seafood. Social Hx: Denies tobacco, EtOH, or illicit drug use Active Medications Acetaminophen (Tylenol 325mg Tab) 650 mg PO Q4H PRN PRN Reason: Temperature Last Admin: 08/08/17 17:21 Dose: 650 mg Amlodipine Besylate (Norvasc) 5 mg PO DAILY [facility] Last Admin: 08/08/17 11:22 Dose: 5 mg Aspirin (Ecotrin) 81 mg PO DAILY [facility] Last Admin: 08/08/17 11:16 Dose: 81 mg Atorvastatin Calcium (Lipitor) 40 mg PO DIN [facility] Last Admin: 08/08/17 17:17 Dose: 40 mg Hydralazine HCl (Apresoline) 10 mg IVP Q6H PRN PRN Reason: SBP > 160, DBP >100 Hydralazine HCl (Apresoline) 25 mg PO TID [facility] Last Admin: 08/08/17 17:17 Dose: Not Given Sodium Chloride (Sodium Chloride 0.9%) 1,000 mls @ 150 mls/hr IV .Q6H40M [facility] Last Admin: 08/08/17 18:49 Dose: 150 mls/hr Insulin Human Regular (Humulin R Med) 0 units SC ACHS [facility] PRN Reason: Protocol Last Admin: 08/08/17 17:17 Dose: 1 units Isosorbide Mononitrate (Imdur) 60 mg PO DAILY [facility] Last Admin: 08/08/17 11:21 Dose: 60 mg Losartan Potassium (Cozaar) 100 mg PO DAILY [facility] Last Admin: 08/08/17 11:21 Dose: 100 mg Metoprolol Tartrate (Lopressor) 25 mg PO BID [facility] Last Admin: 08/08/17 17:17 Dose: Not Given Ondansetron HCl (Zofran Inj) 4 mg IVP Q4H PRN PRN Reason: Nausea/Vomiting Pantoprazole Sodium (Protonix Ec Tab) 40 mg PO DAILY [facility] Pregabalin (Lyrica) 75 mg PO BID [facility] Last Admin: 08/08/17 17:17 Dose: 75 mg Sevelamer HCl (Renagel) 800 mg PO TID [facility] Last Admin: 08/08/17 17:17 Dose: 800 mg Tamsulosin HCl (Flomax) 0.4 mg PO DAILY [facility] Last Admin: 08/08/17 11:15 Dose: 0.4 mg Vancomycin HCl (Vancocin 25 Mg/Ml (Oral Use)) 250 mg PO Q6 [facility] PRN Reason: Protocol Last Admin: 08/08/17 17:18 Dose: 250 mg Vitamin B Complex/Vit C/Folic Acid (Nephro-Eleni) 1 tab PO 0800 [facility] Last Admin: 08/08/17 11:15 Dose: 1 tab Zolpidem Tartrate (Ambien) 10 mg PO HS PRN; Protocol PRN Reason: Insomnia Family Hx: none given ROS: Nausea, Vomiting, Diarrhea, fevers, chills, abdominal pain. No hematochezia, hematemesis, hematuria. No chest pain. No LOC or SOB. Past Patient History - Infectious Disease Hx of Infectious Diseases: None - Tetanus Immunizations Tetanus Immunization: Unknown - Past Medical History & Family History Past Medical History?: Yes - Past Social History Smoking Status: Never Smoked - CARDIAC Hx Cardiac Disorders: Yes (CAD, VT x 3, CABG x 3) Hx Hypertension: Yes - PULMONARY Hx Respiratory Disorders: Yes Other/Comment: PULMONARY EDEMA - NEUROLOGICAL HX Cerebrovascular Accident: Yes - HEENT Hx HEENT Problems: Yes (CONTACT LENSES) - RENAL Hx Renal Failure: Yes (HD MWF) - ENDOCRINE/METABOLIC Hx Diabetes Mellitus Type 2: Yes - HEMATOLOGICAL/ONCOLOGICAL Hx Blood Disorders: No - INTEGUMENTARY Hx Dermatological Problems: Yes Other/Comment: righty lower ext rash, pt stated "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" - MUSCULOSKELETAL/RHEUMATOLOGICAL Hx Falls: Yes - GASTROINTESTINAL Hx Gastrointestinal Disorders: No - GENITOURINARY/GYNECOLOGICAL Hx Urinary Tract Infection: Yes - PSYCHIATRIC Hx Psychophysiologic Disorder: No Hx Depression: No Hx Emotional Abuse: No Hx Physical Abuse: No - SURGICAL HISTORY Hx Amputation: Yes (R toes) Hx Cardiac Catheterization: Yes (1/13) Hx Coronary Stent: Yes Hx Open Heart Surgery: Yes (12-26-12) Other/Comment: temporary dialysis catheter. ERIC PICC line - ANESTHESIA Hx Anesthesia: Yes Hx Anesthesia Reactions: No Hx Malignant Hyperthermia: No Meds Allergies/Adverse Reactions: Allergies Allergy/AdvReac Type Severity Reaction Status Date / Time Seafood Allergy ANAPHYLAXIS Uncoded 05/29/17 18:46 - Medications Medications: Current Medications Acetaminophen (Tylenol 325mg Tab) 650 mg PO Q4H PRN PRN Reason: Temperature Last Admin: 08/08/17 17:21 Dose: 650 mg Amlodipine Besylate (Norvasc) 5 mg PO DAILY [facility] Last Admin: 08/08/17 11:22 Dose: 5 mg Aspirin (Ecotrin) 81 mg PO DAILY [facility] Last Admin: 08/08/17 11:16 Dose: 81 mg Atorvastatin Calcium (Lipitor) 40 mg PO DIN [facility] Last Admin: 08/08/17 17:17 Dose: 40 mg Hydralazine HCl (Apresoline) 10 mg IVP Q6H PRN PRN Reason: SBP > 160, DBP >100 Hydralazine HCl (Apresoline) 25 mg PO TID [facility] Last Admin: 08/08/17 17:17 Dose: Not Given Sodium Chloride (Sodium Chloride 0.9%) 1,000 mls @ 150 mls/hr IV .Q6H40M [facility] Last Admin: 08/08/17 18:49 Dose: 150 mls/hr Insulin Human Regular (Humulin R Med) 0 units SC ACHS [facility] PRN Reason: Protocol Last Admin: 08/08/17 17:17 Dose: 1 units Isosorbide Mononitrate (Imdur) 60 mg PO DAILY [facility] Last Admin: 08/08/17 11:21 Dose: 60 mg Losartan Potassium (Cozaar) 100 mg PO DAILY [facility] Last Admin: 08/08/17 11:21 Dose: 100 mg Metoprolol Tartrate (Lopressor) 25 mg PO BID [facility] Last Admin: 08/08/17 17:17 Dose: Not Given Ondansetron HCl (Zofran Inj) 4 mg IVP Q4H PRN PRN Reason: Nausea/Vomiting Pantoprazole Sodium (Protonix Ec Tab) 40 mg PO DAILY [facility] Pregabalin (Lyrica) 75 mg PO BID [facility] Last Admin: 08/08/17 17:17 Dose: 75 mg Sevelamer HCl (Renagel) 800 mg PO TID [facility] Last Admin: 08/08/17 17:17 Dose: 800 mg Tamsulosin HCl (Flomax) 0.4 mg PO DAILY [facility] Last Admin: 08/08/17 11:15 Dose: 0.4 mg Vancomycin HCl (Vancocin 25 Mg/Ml (Oral Use)) 250 mg PO Q6 [facility] PRN Reason: Protocol Last Admin: 08/08/17 17:18 Dose: 250 mg Vitamin B Complex/Vit C/Folic Acid (Nephro-Eleni) 1 tab PO 0800 [facility] Last Admin: 08/08/17 11:15 Dose: 1 tab Zolpidem Tartrate (Ambien) 10 mg PO HS PRN; Protocol PRN Reason: Insomnia Physical Exam - Constitutional Appears: Unkempt, Chronically Ill - Head Exam Head Exam: ATRAUMATIC, NORMOCEPHALIC - Eye Exam Eye Exam: EOMI, Normal appearance, PERRL Pupil Exam: NORMAL ACCOMODATION, PERRL - ENT Exam ENT Exam: Mucous Membranes Moist, Normal External Ear Exam, TM's Normal Bilaterally - Neck Exam Neck exam: Positive for: Full Rom, Normal Inspection - Respiratory Exam Respiratory Exam: Clear to Auscultation Bilateral, NORMAL BREATHING PATTERN. absent: Rales, Rhonchi, Wheezes - Cardiovascular Exam Cardiovascular Exam: REGULAR RHYTHM, RRR, +S1, +S2 - GI/Abdominal Exam GI & Abdominal Exam: Normal Bowel Sounds, Soft. absent: Distended, Tenderness - Extremities Exam Additional comments: right forefoot amputation - Neurological Exam Neurological exam: Alert, CN II-XII Intact, Oriented x3 - Skin Skin Exam: Dry, Intact Results - Vital Signs Recent Vital Signs: Last Vital Signs Temp 99 F 08/08/17 20:00 Pulse 74 08/08/17 20:00 Resp 20 08/08/17 20:00 BP 112/70 08/08/17 20:00 Pulse Ox 96 08/08/17 20:00 - Labs Result Diagrams: 08/08/17 11:20 08/08/17 07:00 Labs: Laboratory Results - last 24 hr 08/08/17 08/08/17 08/08/17 05:39 07:00 07:00 WBC 5.6 D RBC 4.48 Hgb 12.6 L Hct 38.9 L MCV 86.8 MCH 28.1 MCHC 32.4 RDW 16.3 H Plt Count 207 MPV 11.3 H Gran % 57.3 Lymph % (Auto) 31.6 [place] % (Auto) 7.7 H Eos % (Auto) 2.5 Baso % (Auto) 0.9 Gran # 3.21 Lymph # 1.8 [place] # 0.4 Eos # 0.1 Baso # 0.05 Sodium 132 Potassium 3.5 L Chloride 88 L Carbon Dioxide 25 Anion Gap 22 H BUN 58 H Creatinine 10.8 H* Est GFR ( Amer) 6 Est GFR (Non-Af Amer) 5 POC Glucose (mg/dL) 288 H Random Glucose 225 H Lactic Acid Calcium 8.4 Phosphorus 6.6 H Magnesium 2.5 H Total Bilirubin 0.7 AST 21 ALT 25 Alkaline Phosphatase 74 Total Protein 6.6 Albumin 3.8 Globulin 2.7 Albumin/Globulin Ratio 1.4 Procalcitonin 08/08/17 08/08/17 08/08/17 10:17 11:20 11:20 WBC 1.3 L* D RBC 4.90 Hgb 14.0 Hct 43.1 MCV 88.0 MCH 28.6 MCHC 32.5 RDW 16.4 H Plt Count 170 MPV 10.3 Gran % 81.6 H Lymph % (Auto) 15.3 L [place] % (Auto) 0.8 L Eos % (Auto) 2.3 Baso % (Auto) 0.0 Gran # 1.07 L Lymph # 0.2 L [place] # 0.0 L Eos # 0.0 Baso # 0.00 Sodium Potassium Chloride Carbon Dioxide Anion Gap BUN Creatinine Est GFR ( Amer) Est GFR (Non-Af Amer) POC Glucose (mg/dL) 187 H Random Glucose Lactic Acid Calcium Phosphorus Magnesium Total Bilirubin AST ALT Alkaline Phosphatase Total Protein Albumin Globulin Albumin/Globulin Ratio Procalcitonin 59.82 H 08/08/17 08/08/17 08/08/17 11:20 15:37 16:15 WBC RBC Hgb Hct MCV MCH MCHC RDW Plt Count MPV Gran % Lymph % (Auto) [place] % (Auto) Eos % (Auto) Baso % (Auto) Gran # Lymph # [place] # Eos # Baso # Sodium Potassium Chloride Carbon Dioxide Anion Gap BUN Creatinine Est GFR ( Amer) Est GFR (Non-Af Amer) POC Glucose (mg/dL) 274 H Random Glucose Lactic Acid 2.0 2.8 H Calcium Phosphorus Magnesium Total Bilirubin AST ALT Alkaline Phosphatase Total Protein Albumin Globulin Albumin/Globulin Ratio Procalcitonin 08/08/17 08/08/17 20:16 21:33 WBC RBC Hgb Hct MCV MCH MCHC RDW Plt Count MPV Gran % Lymph % (Auto) [place] % (Auto) Eos % (Auto) Baso % (Auto) Gran # Lymph # [place] # Eos # Baso # Sodium Potassium Chloride Carbon Dioxide Anion Gap BUN Creatinine Est GFR ( Amer) Est GFR (Non-Af Amer) POC Glucose (mg/dL) 125 H Random Glucose Lactic Acid 2.5 H Calcium Phosphorus Magnesium Total Bilirubin AST ALT Alkaline Phosphatase Total Protein Albumin Globulin Albumin/Globulin Ratio Procalcitonin Assessment & Plan - Assessment and Plan (Free Text) Assessment: 56 yo male with initial presentation of diarrhea, vomiting, and abdominal pain. The patient developed fevers and leukopenia today. Damon cultures sent. Vancomycin and Meropenem started. Will give a dose of aminoglycoside. Procalcitonin severely elevated at 59. Lactic acid increasing to 2.8. WBC down to 1.3. Check influenza titers as well. The patient may need neutropenic precautions. Supportive care. Patient with medical history of ESRD on HD, CAD, HTN, and DM. Thank you for allowing me to participate in the care of the patient, we will follow with you.
[2017-08-08] MEDS: Meropenem 500 MG in Sodium Chloride 0.9% 100 ML IVPB SCH (23:22)
[2017-08-09 02:43] LABS: URINE BILIRUBIN NEGATIVE (NEGATIVE); URINE BLOOD MODERATE (NEGATIVE); URINE GLUCOSE (UA) 250 mg/dL (NEGATIVE); URINE KETONE NEGATIVE (NEGATIVE); URINE LEUKOCYTE ESTERASE LARGE Leu/uL (NEGATIVE); URINE PROTEIN 100 mg/dL (<30 mg/dL); URINE UROBILINOGEN 0.2 E.U./dL (<1 E.U./dL)
[2017-08-09 03:09] LABS: URINE APPEARANCE SL CLOUDY (CLEAR); URINE COLOR YELLOW (YELLOW)
[2017-08-09 03:11] LABS: URINE BACTERIA FEW (NEG); URINE EPITHELIAL CELLS 0 - 2 /hpf (0-5); URINE WBC 25 - 30 /hpf (0-6)
[2017-08-09] MEDS: Vancomycin 25 MG/ML PO SCH ×4 (06:25→23:32)
[2017-08-09 06:58] LABS: BASO # 0.02 K/mm3 (0.0-2.0); BASO % 0.2 % (0.0-3.0); EOS # 0.1 (0.0-0.7); EOS % 1.3 % (1.5-5.0); GRAN # 7.36 (1.4-6.5); GRAN % 81.9 % (50.0-68.0); HEMATOCRIT 33.4 % (42.0-52.0); LYMPH % 10.9 % (22.0-35.0); MEAN CELL VOLUME 89.3 fl (80.0-105.0); MEAN CORPUSCULAR HEMOGLOBIN 28.3 pg (25.0-35.0); MEAN CORPUSCULAR HGB CONC 31.7 g/dl (31.0-37.0); MONO # 0.5 (0.1-0.6); MONO % 5.7 % (1.0-6.0); RED CELL DISTRIBUTION WIDTH 16.4 % (11.5-14.5)
[2017-08-09 07:00] LABS: ALB/GLOB RATIO 1.1 (1.1-1.8); BILIRUBIN,TOTAL 0.7 mg/dL (0.2-1.3); CALCIUM 7.8 mg/dL (8.4-10.5); POTASSIUM 3.7 mmol/L (3.6-5.0); TOTAL PROTEIN 5.5 g/dL (5.8-8.3)
[2017-08-09] MEDS: Multivitamin Vitamin B Complex (Nephro-Vite) Tab PO SCH (08:52)
[2017-08-09] MEDS: Insulin Reg-MEDIUM-Coverage SC SCH ×4 (08:52→22:45)
[2017-08-09] MEDS: Pantoprazole 40 mg EC Tab PO SCH (11:08)
--- NOTE | 2017-08-09 11:32 | CP.PCM.PN ---
<JuanKayleigh - Last Filed: 08/09/17 14:24> Subjective - Date & Time of Evaluation Date of Evaluation: 08/09/17 Time of Evaluation: 07:00 - Subjective Subjective: Patient seen and examined at bedside. Patient reports low grade fever, but denies any nausea, vomiting, or diarrhea. Nurse reports no events overnight. Objective - Vital Signs/Intake and Output Vital Signs (last 24 hours): Temp Pulse Resp BP Pulse Ox 98.4 F 56 L 20 141/76 95 08/09/17 08:29 08/09/17 08:29 08/09/17 08:29 08/09/17 08:29 08/09/17 08:29 Intake and Output: 08/09/17 08/09/17 06:59 18:59 Intake Total 3651 Output Total 1025 Balance 2626 - Medications Medications: Current Medications Acetaminophen (Tylenol 325mg Tab) 650 mg PO Q4H PRN PRN Reason: Temperature Last Admin: 08/08/17 17:21 Dose: 650 mg Amlodipine Besylate (Norvasc) 5 mg PO DAILY [facility] Last Admin: 08/09/17 11:07 Dose: 5 mg Aspirin (Ecotrin) 81 mg PO DAILY [facility] Last Admin: 08/09/17 11:08 Dose: 81 mg Atorvastatin Calcium (Lipitor) 40 mg PO DIN [facility] Last Admin: 08/08/17 17:17 Dose: 40 mg Hydralazine HCl (Apresoline) 10 mg IVP Q6H PRN PRN Reason: SBP > 160, DBP >100 Hydralazine HCl (Apresoline) 25 mg PO TID [facility] Last Admin: 08/08/17 17:17 Dose: Not Given Meropenem 500 mg/ Sodium (Chloride) 100 mls @ 100 mls/hr IVPB Q24H [facility] PRN Reason: Protocol Last Admin: 08/08/17 23:22 Dose: 100 mls/hr Insulin Human Regular (Humulin R Med) 0 units SC ACHS [facility] PRN Reason: Protocol Last Admin: 08/09/17 08:52 Dose: 1 units Isosorbide Mononitrate (Imdur) 60 mg PO DAILY [facility] Last Admin: 08/09/17 11:07 Dose: 60 mg Losartan Potassium (Cozaar) 100 mg PO DAILY [facility] Last Admin: 08/09/17 11:07 Dose: 100 mg Metoprolol Tartrate (Lopressor) 25 mg PO BID [facility] Last Admin: 08/09/17 11:07 Dose: 25 mg Metronidazole (Flagyl) 500 mg PO Q8 [facility] PRN Reason: Protocol Last Admin: 08/09/17 06:25 Dose: 500 mg Ondansetron HCl (Zofran Inj) 4 mg IVP Q4H PRN PRN Reason: Nausea/Vomiting Pantoprazole Sodium (Protonix Ec Tab) 40 mg PO DAILY [facility] Last Admin: 08/09/17 11:08 Dose: 40 mg Pregabalin (Lyrica) 75 mg PO BID [facility] Last Admin: 08/09/17 11:07 Dose: 75 mg Sevelamer HCl (Renagel) 800 mg PO TID [facility] Last Admin: 08/09/17 11:07 Dose: 800 mg Tamsulosin HCl (Flomax) 0.4 mg PO DAILY [facility] Last Admin: 08/09/17 11:08 Dose: 0.4 mg Vancomycin HCl (Vancocin 25 Mg/Ml (Oral Use)) 250 mg PO Q6 [facility] PRN Reason: Protocol Last Admin: 08/09/17 11:14 Dose: 250 mg Vitamin B Complex/Vit C/Folic Acid (Nephro-Eleni) 1 tab PO 0800 [facility] Last Admin: 08/09/17 08:52 Dose: 1 tab Zolpidem Tartrate (Ambien) 10 mg PO HS PRN; Protocol PRN Reason: Insomnia Last Admin: 08/08/17 23:35 Dose: 10 mg - Labs Labs: 08/09/17 06:20 08/09/17 06:20 PT 13.4 SECONDS (9.4-12.5) H 08/06/17 14:32 INR 1.22 (0.93-1.08) H 08/06/17 14:32 APTT 33.5 Seconds (25.1-36.5) 08/06/17 14:32 - Constitutional Appears: Well, Non-toxic - Head Exam Head Exam: ATRAUMATIC, NORMOCEPHALIC - Eye Exam Eye Exam: EOMI, Normal appearance - ENT Exam ENT Exam: Mucous Membranes Moist, Normal Oropharynx - Neck Exam Neck Exam: Normal Inspection - Respiratory Exam Respiratory Exam: Clear to Ausculation Bilateral, NORMAL BREATHING PATTERN - Cardiovascular Exam Cardiovascular Exam: RRR, +S1, +S2 - GI/Abdominal Exam GI & Abdominal Exam: Soft, Normal Bowel Sounds - Back Exam Back Exam: NORMAL INSPECTION. absent: CVA tenderness (L), CVA tenderness (R) - Neurological Exam Neurological Exam: Alert, CN II-XII Intact, Oriented x3 - Psychiatric Exam Psychiatric exam: Normal Affect, Normal Mood - Skin Skin Exam: Dry. absent: Petechiae, Rash Additional comments: no petechiae, or Jan[place]ay lesions. Assessment and Plan - Assessment and Plan (Free Text) Assessment: 56 year old male with a past medical history of ESRD, CAD, DM II, CVA, hypertension, dyslipidemia who presented with 2.5 days of brisk, reportedly jet black diarrhea, vomiting, decreased PO intake and feelings of generalized malaise. Important to note, patient recently completed antibiotics for gram negative bactermia. Patient's stool came back positive for C. difficile antigen (+) and toxin (-); hence started on PO Vancomycin. Patient developed fever, chills after dialysis. Blood cultures positive for gram negative bacteria x2. Patient started on Vancomycin, Meropenem, and given one dose of Amikacin. Infectious Disease and Nephrology following. Plan: Plan: 1) Gram negative yumiko bacteremia - 2 sets of blood cultures positive for gram negative yumiko. - Tylenol 650 mg q6h PRN fever greater than 100.4 F - Vancomycin 1 gm q 48 - Infectious disease consulted, Dr. Cohn, appreciate recommendations. - Meropenem 500 mg q24h - Blood cultures x2 will be repeated during dialysis. 1b) Leukopenia, resolved - Will continue to follow up via serial CBCs 2) C. difficile infectious diarrhea - C. difficile antigen positive and toxin negative: - Vancomycin oral solution 250 mg q6h 3) CAD - Aspirin 81 - Atorvastatin 40 - Isosorbide Mononitrate 60. 4) ESRD - Dr. Garrett consulted - Continue with Nephrovite - Sevelamer 800 mg TID - Dialysis Monday, , Monday per nephrology recommendations. 5) Hypertension - Hydralazine 10 mg IVP for SBP >160 or DBP >100 - Hydralazine 25 mg TID - Metoprolol 25 mg BID - Losartan 100 mg PO daily - Amlodipine 10 mg PO daily 6) DM II with peripheral neuropathy - ISS medium - Pregabalin 75 mg BID daily 7) Urinary retention; history of ESBL E. coli in the urine - Patient has Macias - Tamsulosin 0.4 mg PO daily 8) DVT/GI prophylaxis - SCD/Protonix 40 mg IVP Daily <Corey Moore - Last Filed: 08/09/17 17:44> Objective - Vital Signs/Intake and Output Vital Signs (last 24 hours): Temp Pulse Resp BP Pulse Ox 99.8 F H 88 20 125/84 96 08/09/17 17:02 08/09/17 17:02 08/09/17 17:02 08/09/17 17:02 08/09/17 17:02 Intake and Output: 08/09/17 08/09/17 06:59 18:59 Intake Total 3651 960 Output Total 1025 1200 Balance 2626 -240 - Medications Medications: Current Medications Acetaminophen (Tylenol 325mg Tab) 650 mg PO Q4H PRN PRN Reason: Temperature Last Admin: 08/09/17 15:29 Dose: 650 mg Amlodipine Besylate (Norvasc) 5 mg PO DAILY [facility] Last Admin: 08/09/17 11:07 Dose: 5 mg Aspirin (Ecotrin) 81 mg PO DAILY [facility] Last Admin: 08/09/17 11:08 Dose: 81 mg Atorvastatin Calcium (Lipitor) 40 mg PO DIN [facility] Last Admin: 08/08/17 17:17 Dose: 40 mg Hydralazine HCl (Apresoline) 10 mg IVP Q6H PRN PRN Reason: SBP > 160, DBP >100 Hydralazine HCl (Apresoline) 25 mg PO TID [facility] Last Admin: 08/09/17 15:06 Dose: 25 mg Meropenem 500 mg/ Sodium (Chloride) 100 mls @ 100 mls/hr IVPB Q24H [facility] PRN Reason: Protocol Last Admin: 08/08/17 23:22 Dose: 100 mls/hr Insulin Human Regular (Humulin R Med) 0 units SC ACHS [facility] PRN Reason: Protocol Last Admin: 08/09/17 17:08 Dose: 1 units Isosorbide Mononitrate (Imdur) 60 mg PO DAILY [facility] Last Admin: 08/09/17 11:07 Dose: 60 mg Losartan Potassium (Cozaar) 100 mg PO DAILY [facility] Last Admin: 08/09/17 11:07 Dose: 100 mg Metoprolol Tartrate (Lopressor) 25 mg PO BID [facility] Last Admin: 08/09/17 11:07 Dose: 25 mg Metronidazole (Flagyl) 500 mg PO Q8 [facility] PRN Reason: Protocol Last Admin: 08/09/17 15:00 Dose: 500 mg Ondansetron HCl (Zofran Inj) 4 mg IVP Q4H PRN PRN Reason: Nausea/Vomiting Pantoprazole Sodium (Protonix Ec Tab) 40 mg PO DAILY [facility] Last Admin: 08/09/17 11:08 Dose: 40 mg Pregabalin (Lyrica) 75 mg PO BID [facility] Last Admin: 08/09/17 11:07 Dose: 75 mg Sevelamer HCl (Renagel) 800 mg PO TID [facility] Last Admin: 08/09/17 15:00 Dose: 800 mg Tamsulosin HCl (Flomax) 0.4 mg PO DAILY [facility] Last Admin: 08/09/17 11:08 Dose: 0.4 mg Vancomycin HCl (Vancocin 25 Mg/Ml (Oral Use)) 250 mg PO Q6 [facility] PRN Reason: Protocol Last Admin: 08/09/17 11:14 Dose: 250 mg Vitamin B Complex/Vit C/Folic Acid (Nephro-Eleni) 1 tab PO 0800 [facility] Last Admin: 08/09/17 08:52 Dose: 1 tab Zolpidem Tartrate (Ambien) 10 mg PO HS PRN; Protocol PRN Reason: Insomnia Last Admin: 08/08/17 23:35 Dose: 10 mg - Labs Labs: 08/09/17 06:20 08/09/17 06:20 PT 13.4 SECONDS (9.4-12.5) H 08/06/17 14:32 INR 1.22 (0.93-1.08) H 08/06/17 14:32 APTT 33.5 Seconds (25.1-36.5) 08/06/17 14:32 Attending/Attestation - Attestation I have personally seen and examined this patient.: Yes I have fully participated in the care of the patient.: Yes I have reviewed all pertinent clinical information, including history, physical exam and plan: Yes Notes (Text): 08/09/17 17:39 Patient was seen and examined with medical clinic manager. Agreed with resident assessment and plan. Patient is still febrile.Blood cultures are growing gram negative yumiko.We will follow up identification of bacteria.Patient is on IV Merropenem. Case was discussed with Nephrology and ID. Blood pressure is stable. Management plan was discussed in detail with patient Education was provided.
--- NOTE | 2017-08-09 15:13 | CP.PCM.PN ---
Subjective - Date & Time of Evaluation Date of Evaluation: 08/09/17 Time of Evaluation: 15:11 - Subjective Subjective: Follow up Nephrology Consultation: Assessment: critical Sepsis with GNR ? UTI or permacath related infection esophageal ulceration, gastroparesis Nausea/vomitting, diarrhoea ? related to above Diabetic chronic Kidney Disease (E11.22) Hypertensive Chronic Kidney Disease (I12.0) End stage renal disease (N18.6) dependence on hemodialysis (Z99.2) (TTS) Anemia (D64.9), Hyperphosphatemia (E83.39), Secondary Hyperparathyroidism (E21.1 ), HTN (I12.0) CAD s/p CABG chronic urine retention Plan: For HD tomorrow as ordered. continue with Nephrovite 1 tab/day. Hb fluctuating Continue with hectorol with dialysis. BP control with meds as ordered. Patient on RAAS anjelica Glycemic control, Dialysis consistent diet Further work up/management as per primary team Dose meds/antibiotics for ESRD status. Avoid fleets enema/magnesium based laxatives. GI, ID following. antibiotics as per ID. follow cx/sens results. urine cx pending started renagel 800 mg TID with meals for high phos pt advised to consider self intermittent catheterization instead of indwelling martinez. Thanks for allowing me to participate in care of your patient. Will follow patient with you. Please call if any Qs Dr Sancho Garrett Office: [phone] Chief Complaint; none today Reason for consult; ESRD HPI: Pt is a 56 y/o M with hx of ESRD on hemodialysis (TTS) via permacath, last dialysis sat, chronic anemia, hyperphosphatemia, secondary hyperparathyroidism, Diabetes Mellitus, hypertension, urine retention s/p martinez , hx of permacath related infection with psuedomonas and septic embolic, CAD s/ p CABG, esophageal ulceration, gastroparesis came with c/o vomitting as coffee ground and dark stool/loose stool x 2-3 days and being admitted for further work up. he feels better now. GI symptoms has resolved Denies chest pain, palpitation, shortness of breath, leg swelling denies further GI symptoms refuses HD for 4 hrs as ordered, regularly cuts treatment time to 3 hrs only, counselled and educated multiple times Physical Examination: General Appearance: Comfortable, in no acute respiratory distress, co-operative . Vitals reviewed and noted as below Head; Atraumatic, normocephalic ENT: no ulcers no thrush. Tongue is midline. Oropharynx: no rash or ulcers. EYES: Pupils are equal, round and reactive to light accommodation. Eye muscles and extraocular movement intact. Sclera is anicteric. Neck; supple no lymphadenopathy, no thyromegaly or bruit Lungs: Normal respiratory rate/effort. Breath sounds bilateral equal and clear Heart: Normal rate. s1s2 normal. No rub or gallop. Extremities: no edema. No varicose veins Neurological: Patient is alert, awake and oriented to person, place and time. No focal deficit. Strength bilateral appropriate and equal Skin: Warm and dry. Normal turgor. No rash. Palpitation: Normal elasticity for age Abdomen: Abdomen is soft. Bowel sounds +. There is no abdominal tenderness, no guarding/rigidity or organomegaly Psych: normal insight and normal affect/mood MSK: no joint tenderness or swelling. Digits and nails normal, no deformity. had toe amputations : kidney or bladder not palpable. has chronic martinez Access: permacath Labs/imaging reviewed. Past medical history, past surgical history, family history, social history, allergy reviewed and noted as below Family Hx: no hx of CKD. Non contributory Objective - Vital Signs/Intake and Output Vital Signs (last 24 hours): Temp Pulse Resp BP Pulse Ox 98.9 F 69 18 170/90 H 95 08/09/17 11:00 08/09/17 11:00 08/09/17 11:00 08/09/17 11:08 08/09/17 08:29 Intake and Output: 08/09/17 08/09/17 06:59 18:59 Intake Total 3651 960 Output Total 1025 1200 Balance 2626 -240 - Medications Medications: Current Medications Acetaminophen (Tylenol 325mg Tab) 650 mg PO Q4H PRN PRN Reason: Temperature Last Admin: 08/08/17 17:21 Dose: 650 mg Amlodipine Besylate (Norvasc) 5 mg PO DAILY [facility] Last Admin: 08/09/17 11:07 Dose: 5 mg Aspirin (Ecotrin) 81 mg PO DAILY [facility] Last Admin: 08/09/17 11:08 Dose: 81 mg Atorvastatin Calcium (Lipitor) 40 mg PO DIN [facility] Last Admin: 08/08/17 17:17 Dose: 40 mg Hydralazine HCl (Apresoline) 10 mg IVP Q6H PRN PRN Reason: SBP > 160, DBP >100 Hydralazine HCl (Apresoline) 25 mg PO TID [facility] Last Admin: 08/09/17 11:08 Dose: 25 mg Meropenem 500 mg/ Sodium (Chloride) 100 mls @ 100 mls/hr IVPB Q24H [facility] PRN Reason: Protocol Last Admin: 08/08/17 23:22 Dose: 100 mls/hr Insulin Human Regular (Humulin R Med) 0 units SC ACHS [facility] PRN Reason: Protocol Last Admin: 08/09/17 12:42 Dose: 1 units Isosorbide Mononitrate (Imdur) 60 mg PO DAILY [facility] Last Admin: 08/09/17 11:07 Dose: 60 mg Losartan Potassium (Cozaar) 100 mg PO DAILY [facility] Last Admin: 08/09/17 11:07 Dose: 100 mg Metoprolol Tartrate (Lopressor) 25 mg PO BID [facility] Last Admin: 08/09/17 11:07 Dose: 25 mg Metronidazole (Flagyl) 500 mg PO Q8 [facility] PRN Reason: Protocol Last Admin: 08/09/17 06:25 Dose: 500 mg Ondansetron HCl (Zofran Inj) 4 mg IVP Q4H PRN PRN Reason: Nausea/Vomiting Pantoprazole Sodium (Protonix Ec Tab) 40 mg PO DAILY [facility] Last Admin: 08/09/17 11:08 Dose: 40 mg Pregabalin (Lyrica) 75 mg PO BID [facility] Last Admin: 08/09/17 11:07 Dose: 75 mg Sevelamer HCl (Renagel) 800 mg PO TID [facility] Last Admin: 08/09/17 11:07 Dose: 800 mg Tamsulosin HCl (Flomax) 0.4 mg PO DAILY [facility] Last Admin: 08/09/17 11:08 Dose: 0.4 mg Vancomycin HCl (Vancocin 25 Mg/Ml (Oral Use)) 250 mg PO Q6 [facility] PRN Reason: Protocol Last Admin: 08/09/17 11:14 Dose: 250 mg Vitamin B Complex/Vit C/Folic Acid (Nephro-Eleni) 1 tab PO 0800 [facility] Last Admin: 08/09/17 08:52 Dose: 1 tab Zolpidem Tartrate (Ambien) 10 mg PO HS PRN; Protocol PRN Reason: Insomnia Last Admin: 08/08/17 23:35 Dose: 10 mg - Labs Labs: 08/09/17 06:20 08/09/17 06:20 PT 13.4 SECONDS (9.4-12.5) H 08/06/17 14:32 INR 1.22 (0.93-1.08) H 08/06/17 14:32 APTT 33.5 Seconds (25.1-36.5) 08/06/17 14:32
[2017-08-09] MEDS: Meropenem 500 MG in Sodium Chloride 0.9% 100 ML IVPB SCH (23:08)
--- NOTE | 2017-08-09 23:11 | CP.PCM.PN ---
Subjective - Date & Time of Evaluation Date of Evaluation: 08/09/17 Time of Evaluation: 22:15 - Subjective Subjective: Infectious Disease Follow Up: August 09, 2017 56 yo male known to me in the distant past presenting with fevers and body chills after dialysis today. His initial presentation was for jet black, brisk diarrhea and concurrent vomiting. The patient apparently completed a treatment for Pseudomonas about a week before admission. Patient is leukopenic and neutropenic at this time. Patient does not know what antibiotic he received in the outpatient setting. Still had a fever tonight. On Vancomycin and Meropenem for treatment at this time. Fever up to 102.1 F. Objective - Vital Signs/Intake and Output Vital Signs (last 24 hours): Temp Pulse Resp BP Pulse Ox 99.8 F H 93 H 20 172/88 H 96 08/09/17 17:02 08/09/17 19:12 08/09/17 17:02 08/09/17 19:12 08/09/17 17:02 Intake and Output: 08/09/17 08/10/17 18:59 06:59 Intake Total 960 720 Output Total 1200 1102 Balance -240 -382 - Medications Medications: Current Medications Acetaminophen (Tylenol 325mg Tab) 650 mg PO Q4H PRN PRN Reason: Temperature Last Admin: 08/09/17 19:08 Dose: 650 mg Amlodipine Besylate (Norvasc) 5 mg PO DAILY [facility] Last Admin: 08/09/17 11:07 Dose: 5 mg Aspirin (Ecotrin) 81 mg PO DAILY [facility] Last Admin: 08/09/17 11:08 Dose: 81 mg Atorvastatin Calcium (Lipitor) 40 mg PO DIN [facility] Last Admin: 08/09/17 18:58 Dose: 40 mg Hydralazine HCl (Apresoline) 10 mg IVP Q6H PRN PRN Reason: SBP > 160, DBP >100 Hydralazine HCl (Apresoline) 25 mg PO TID [facility] Last Admin: 08/09/17 19:08 Dose: 25 mg Meropenem 500 mg/ Sodium (Chloride) 100 mls @ 100 mls/hr IVPB Q24H [facility] PRN Reason: Protocol Last Admin: 08/08/17 23:22 Dose: 100 mls/hr Insulin Human Regular (Humulin R Med) 0 units SC ACHS [facility] PRN Reason: Protocol Last Admin: 08/09/17 17:08 Dose: 1 units Isosorbide Mononitrate (Imdur) 60 mg PO DAILY [facility] Last Admin: 08/09/17 11:07 Dose: 60 mg Losartan Potassium (Cozaar) 100 mg PO DAILY [facility] Last Admin: 08/09/17 11:07 Dose: 100 mg Metoprolol Tartrate (Lopressor) 25 mg PO BID [facility] Last Admin: 08/09/17 19:12 Dose: 25 mg Metronidazole (Flagyl) 500 mg PO Q8 [facility] PRN Reason: Protocol Last Admin: 08/09/17 15:00 Dose: 500 mg Ondansetron HCl (Zofran Inj) 4 mg IVP Q4H PRN PRN Reason: Nausea/Vomiting Pantoprazole Sodium (Protonix Ec Tab) 40 mg PO DAILY [facility] Last Admin: 08/09/17 11:08 Dose: 40 mg Pregabalin (Lyrica) 75 mg PO BID [facility] Last Admin: 08/09/17 19:07 Dose: 75 mg Sevelamer HCl (Renagel) 800 mg PO TID [facility] Last Admin: 08/09/17 18:58 Dose: 800 mg Tamsulosin HCl (Flomax) 0.4 mg PO DAILY [facility] Last Admin: 08/09/17 11:08 Dose: 0.4 mg Vancomycin HCl (Vancocin 25 Mg/Ml (Oral Use)) 250 mg PO Q6 [facility] PRN Reason: Protocol Last Admin: 08/09/17 18:59 Dose: 250 mg Vitamin B Complex/Vit C/Folic Acid (Nephro-Eleni) 1 tab PO 0800 [facility] Last Admin: 08/09/17 08:52 Dose: 1 tab Zolpidem Tartrate (Ambien) 10 mg PO HS PRN; Protocol PRN Reason: Insomnia Last Admin: 08/08/17 23:35 Dose: 10 mg - Labs Labs: 08/09/17 06:20 08/09/17 06:20 PT 13.4 SECONDS (9.4-12.5) H 08/06/17 14:32 INR 1.22 (0.93-1.08) H 08/06/17 14:32 APTT 33.5 Seconds (25.1-36.5) 08/06/17 14:32 - Constitutional Appears: Unkempt, Chronically Ill - Head Exam Head Exam: ATRAUMATIC, NORMOCEPHALIC - Eye Exam Eye Exam: EOMI, PERRL Pupil Exam: NORMAL ACCOMODATION, PERRL - ENT Exam ENT Exam: Mucous Membranes Moist, Normal External Ear Exam, TM's Normal Bilaterally - Neck Exam Neck Exam: Full ROM, Normal Inspection - Respiratory Exam Respiratory Exam: Clear to Ausculation Bilateral, NORMAL BREATHING PATTERN. absent: Rales, Rhonchi, Wheezes - Cardiovascular Exam Cardiovascular Exam: REGULAR RHYTHM, RRR, +S1, +S2 - GI/Abdominal Exam GI & Abdominal Exam: Soft, Normal Bowel Sounds. absent: Distended, Tenderness - Extremities Exam Additional comments: right forefoot amputation - Neurological Exam Neurological Exam: Alert, Awake, CN II-XII Intact, Oriented x3 - Skin Skin Exam: Dry, Intact Assessment and Plan - Assessment and Plan (Free Text) Assessment: 56 yo male with initial presentation of diarrhea, vomiting, and abdominal pain. The patient developed fevers and leukopenia today. Damon cultures sent. Vancomycin and Meropenem started. Will give a dose of aminoglycoside. Procalcitonin severely elevated at 59. Lactic acid increasing to 2.8. WBC recovered from 1.3 back to 9.0. Check influenza titers as well. The patient may need neutropenic precautions. Supportive care. Gram negative rods seen in the blood cultures. Patient with gram negative bacteremia and likely septicemia. Patient with medical history of ESRD on HD, CAD, HTN, and DM. Thank you for allowing me to participate in the care of the patient, we will follow with you.
[2017-08-10] MEDS: Vancomycin 25 MG/ML PO SCH ×3 (06:00→12:10)
[2017-08-10] MEDS: Insulin Reg-MEDIUM-Coverage SC SCH ×4 (08:00→21:38)
--- NOTE | 2017-08-10 08:24 | PN ---
DATE: 08/09/2017 REASON FOR CONSULTATION AND FOLLOWUP: History of coronary artery disease, CABG, admitted with black tarry stool and coffee ground vomitus. SUBJECTIVE: Denies any chest pain, shortness of breath. Complain of shaking chills now. No further episode of bleeding noted. OBJECTIVE GENERAL: Not in apparent distress, but feels feverish. VITAL SIGNS: Temperature is 99.4, heart rate , blood pressure 142/71. HEENT: PERRLA, intact. NECK: Supple. No carotid bruit or thyromegaly. CHEST: Clear to auscultation. HEART: S1 and S2 regular. ABDOMEN: Soft. EXTREMITIES: Clubbing and cyanosis negative. LABORATORY DATA: Blood workup; WBC 9, hemoglobin 10.6, hematocrit 33.4, and platelet count 143. Chemistry shows sodium 134, potassium 3.7, chloride 99, carbon dioxide 39, anion gap of 16, BUN 36, creatinine 6.5. IMPRESSION: Rule out sepsis, yesterday WBC is 1.3 and today is 9, this is possibly secondary to sepsis. Rule out sepsis. Gastrointestinal bleed, coffee-ground melena, history of coronary artery disease, coronary artery bypass graft in the past, history of end-stage renal disease on dialysis, history of bypass, prior to that the patient had stent. RECOMMENDATIONS: We will start blood culture, rule out sepsis. We will follow with history of peripheral artery disease, history of amputation of forefoot. CVS status is stable. blood culture. Thank you Dr. Muir for providing us the opportunity in taking care of the patient, Manuel Lay. Corey Mcdermott MD
[2017-08-10] MEDS ORDERED: Doxercalciferol 4 mcg/2 ml Inj IVP ONE (10:00)
[2017-08-10] MEDS ORDERED: Darbepoetin Alfa 40 mcg/ml Inj IVP ONE (10:00)
[2017-08-10 10:38] LABS: BASO # 0.02 K/mm3 (0.0-2.0); BASO % 0.3 % (0.0-3.0); EOS # 0.2 (0.0-0.7); EOS % 2.2 % (1.5-5.0); GRAN # 5.67 (1.4-6.5); GRAN % 71.9 % (50.0-68.0); HEMATOCRIT 34.9 % (42.0-52.0); LYMPH # 1.3 (1.2-3.4); LYMPH % 16.5 % (22.0-35.0); MEAN CELL VOLUME 87.3 fl (80.0-105.0); MEAN CORPUSCULAR HEMOGLOBIN 28.3 pg (25.0-35.0); MEAN CORPUSCULAR HGB CONC 32.4 g/dl (31.0-37.0); MEAN PLATELET VOLUME 11.1 fl (7.0-11.0); MONO # 0.7 (0.1-0.6); MONO % 9.1 % (1.0-6.0); RED CELL DISTRIBUTION WIDTH 16.1 % (11.5-14.5); WHITE BLOOD COUNT 7.9 10^3/ul (4.5-11.0)
[2017-08-10 11:03] LABS: ALB/GLOB RATIO 1.2 (1.1-1.8); BILIRUBIN,TOTAL 0.5 mg/dL (0.2-1.3); CALCIUM 8.3 mg/dL (8.4-10.5); POTASSIUM 3.7 mmol/L (3.6-5.0); TOTAL PROTEIN 5.8 g/dL (5.8-8.3)
[2017-08-10] MEDS: Pantoprazole 40 mg EC Tab PO SCH (12:05)
[2017-08-10] MEDS: Multivitamin Vitamin B Complex (Nephro-Vite) Tab PO SCH (12:05)
[2017-08-10 12:07] LABS: PHOSPHOROUS 4.3 mg/dL (2.5-4.5)
--- NOTE | 2017-08-10 12:24 | CP.PCM.PN ---
Subjective - Date & Time of Evaluation Date of Evaluation: 08/10/17 Time of Evaluation: 12:21 - Subjective Subjective: Follow up Nephrology Consultation: Assessment: critical Sepsis with GNR ? UTI or permacath related infection esophageal ulceration, gastroparesis Nausea/vomitting, diarrhoea ? related to above Diabetic chronic Kidney Disease (E11.22) Hypertensive Chronic Kidney Disease (I12.0) End stage renal disease (N18.6) dependence on hemodialysis (Z99.2) (TTS) Anemia (D64.9), Hyperphosphatemia (E83.39), Secondary Hyperparathyroidism (E21.1 ), HTN (I12.0) CAD s/p CABG chronic urine retention Plan: For HD today as ordered but stopped approx after 2 hrs due to his chills/ rigors. continue with Nephrovite 1 tab/day. Hb fluctuating today 11.3 Continue with hectorol with dialysis. BP control with meds as ordered. Patient on RAAS anjelica Glycemic control, Dialysis consistent diet Further work up/management as per primary team Dose meds/antibiotics for ESRD status. Avoid fleets enema/magnesium based laxatives. GI, ID following. antibiotics as per ID. follow cx/sens results. urine cx pending. decision on permacath (removal versus exchange over guidewire versus none) based upon urine and blood cx final results. started renagel 800 mg TID with meals for high phos pt advised to consider self intermittent catheterization instead of indwelling martinez. avoid IV contrast as much as possible. Thanks for allowing me to participate in care of your patient. Will follow patient with you. Please call if any Qs. d/w team Dr Sancho Garrett Office: [phone] HPI: Pt is a 56 y/o M with hx of ESRD on hemodialysis (TTS) via permacath, last dialysis sat, chronic anemia, hyperphosphatemia, secondary hyperparathyroidism, Diabetes Mellitus, hypertension, urine retention s/p martinez , hx of permacath related infection with psuedomonas and septic embolic, CAD s/ p CABG, esophageal ulceration, gastroparesis came with c/o vomitting as coffee ground and dark stool/loose stool x 2-3 days and being admitted for further work up. he feels better now. GI symptoms has resolved Denies chest pain, palpitation, shortness of breath, leg swelling c/o chills during HD and wants to come off HD refuses HD for 4 hrs as ordered, regularly cuts treatment time to 3 hrs only, counselled and educated multiple times Physical Examination: seen on HD General Appearance: uncomfortable, in no acute respiratory distress, co- operative . Vitals reviewed and noted as below Head; Atraumatic, normocephalic ENT: no ulcers no thrush. Tongue is midline. Oropharynx: no rash or ulcers. EYES: Pupils are equal, round and reactive to light accommodation. Eye muscles and extraocular movement intact. Sclera is anicteric. Neck; supple no lymphadenopathy, no thyromegaly or bruit Lungs: Normal respiratory rate/effort. Breath sounds bilateral equal and clear Heart: Normal rate. s1s2 normal. No rub or gallop. Extremities: no edema. No varicose veins Neurological: Patient is alert, awake and oriented to person, place and time. No focal deficit. Strength bilateral appropriate and equal Skin: Warm and dry. Normal turgor. No rash. Palpitation: Normal elasticity for age Abdomen: Abdomen is soft. Bowel sounds +. There is no abdominal tenderness, no guarding/rigidity or organomegaly Psych: limited insight has normal affect/mood MSK: no joint tenderness or swelling. Digits and nails normal, no deformity. had toe amputations : kidney or bladder not palpable. has chronic martinez Access: permacath Labs/imaging reviewed. Past medical history, past surgical history, family history, social history, allergy reviewed and noted as below Family Hx: no hx of CKD. Non contributory Objective - Vital Signs/Intake and Output Vital Signs (last 24 hours): Temp Pulse Resp BP Pulse Ox 97.8 F 63 20 134/59 L 96 08/10/17 08:00 08/10/17 08:00 08/10/17 08:00 08/10/17 08:00 08/10/17 08:00 Intake and Output: 08/10/17 08/10/17 06:59 18:59 Intake Total 720 Output Total 1102 Balance -382 - Medications Medications: Current Medications Acetaminophen (Tylenol 325mg Tab) 650 mg PO Q4H PRN PRN Reason: Temperature Last Admin: 08/10/17 12:12 Dose: 650 mg Amlodipine Besylate (Norvasc) 5 mg PO DAILY [facility] Last Admin: 08/09/17 11:07 Dose: 5 mg Aspirin (Ecotrin) 81 mg PO DAILY [facility] Last Admin: 08/09/17 11:08 Dose: 81 mg Atorvastatin Calcium (Lipitor) 40 mg PO DIN [facility] Last Admin: 08/09/17 18:58 Dose: 40 mg Hydralazine HCl (Apresoline) 10 mg IVP Q6H PRN PRN Reason: SBP > 160, DBP >100 Hydralazine HCl (Apresoline) 25 mg PO TID [facility] Last Admin: 08/10/17 12:05 Dose: 25 mg Meropenem 500 mg/ Sodium (Chloride) 100 mls @ 100 mls/hr IVPB Q24H [facility] PRN Reason: Protocol Last Admin: 08/09/17 23:08 Dose: 100 mls/hr Insulin Human Regular (Humulin R Med) 0 units SC ACHS [facility] PRN Reason: Protocol Last Admin: 08/10/17 12:11 Dose: 1 units Isosorbide Mononitrate (Imdur) 60 mg PO DAILY [facility] Last Admin: 08/10/17 12:04 Dose: 60 mg Losartan Potassium (Cozaar) 100 mg PO DAILY [facility] Last Admin: 08/10/17 12:05 Dose: 100 mg Metoprolol Tartrate (Lopressor) 25 mg PO BID [facility] Last Admin: 08/10/17 12:05 Dose: 25 mg Metronidazole (Flagyl) 500 mg PO Q8 [facility] PRN Reason: Protocol Last Admin: 08/10/17 05:02 Dose: 500 mg Ondansetron HCl (Zofran Inj) 4 mg IVP Q4H PRN PRN Reason: Nausea/Vomiting Pantoprazole Sodium (Protonix Ec Tab) 40 mg PO DAILY [facility] Last Admin: 08/10/17 12:05 Dose: 40 mg Pregabalin (Lyrica) 75 mg PO BID [facility] Last Admin: 08/10/17 12:11 Dose: 75 mg Sevelamer HCl (Renagel) 800 mg PO TID [facility] Last Admin: 08/10/17 12:04 Dose: 800 mg Tamsulosin HCl (Flomax) 0.4 mg PO DAILY [facility] Last Admin: 08/10/17 12:04 Dose: 0.4 mg Vancomycin HCl (Vancocin 25 Mg/Ml (Oral Use)) 250 mg PO Q6 [facility] PRN Reason: Protocol Last Admin: 08/10/17 12:06 Dose: 250 mg Vitamin B Complex/Vit C/Folic Acid (Nephro-Eleni) 1 tab PO 0800 [facility] Last Admin: 08/10/17 12:05 Dose: 1 tab Zolpidem Tartrate (Ambien) 10 mg PO HS PRN; Protocol PRN Reason: Insomnia Last Admin: 08/09/17 23:14 Dose: 10 mg - Labs Labs: 08/10/17 10:20 08/10/17 10:20 PT 13.4 SECONDS (9.4-12.5) H 08/06/17 14:32 INR 1.22 (0.93-1.08) H 08/06/17 14:32 APTT 33.5 Seconds (25.1-36.5) 08/06/17 14:32
--- NOTE | 2017-08-10 14:24 | CP.PCM.PN ---
<Kayleigh Martinez - Last Filed: 08/10/17 15:37> Subjective - Date & Time of Evaluation Date of Evaluation: 08/10/17 Time of Evaluation: 10:35 - Subjective Subjective: Kayleigh Martinez DO, PGY-1: Hospitalist Service Patient seen and examined at bedside. Patient developed fever and chills during dialysis and returned early from dialysis. Patient had fever overnight. Chart review reveals patient has been febrile overnight. Objective - Vital Signs/Intake and Output Vital Signs (last 24 hours): Temp Pulse Resp BP Pulse Ox 97.8 F 63 20 134/59 L 96 08/10/17 08:00 08/10/17 08:00 08/10/17 08:00 08/10/17 08:00 08/10/17 08:00 Intake and Output: 08/10/17 08/10/17 06:59 18:59 Intake Total 720 Output Total 1102 Balance -382 - Medications Medications: Current Medications Acetaminophen (Tylenol 325mg Tab) 650 mg PO Q4H PRN PRN Reason: Temperature Last Admin: 08/10/17 12:12 Dose: 650 mg Amlodipine Besylate (Norvasc) 5 mg PO DAILY [facility] Last Admin: 08/09/17 11:07 Dose: 5 mg Aspirin (Ecotrin) 81 mg PO DAILY [facility] Last Admin: 08/09/17 11:08 Dose: 81 mg Atorvastatin Calcium (Lipitor) 40 mg PO DIN [facility] Last Admin: 08/09/17 18:58 Dose: 40 mg Heparin Sodium (Porcine) (Heparin) 5,000 units SC Q8 [facility] PRN Reason: Protocol Hydralazine HCl (Apresoline) 10 mg IVP Q6H PRN PRN Reason: SBP > 160, DBP >100 Hydralazine HCl (Apresoline) 25 mg PO TID [facility] Last Admin: 08/10/17 12:05 Dose: 25 mg Meropenem 500 mg/ Sodium (Chloride) 100 mls @ 100 mls/hr IVPB Q24H [facility] PRN Reason: Protocol Last Admin: 08/09/17 23:08 Dose: 100 mls/hr Insulin Human Regular (Humulin R Med) 0 units SC ACHS [facility] PRN Reason: Protocol Last Admin: 08/10/17 12:11 Dose: 1 units Isosorbide Mononitrate (Imdur) 60 mg PO DAILY [facility] Last Admin: 08/10/17 12:04 Dose: 60 mg Losartan Potassium (Cozaar) 100 mg PO DAILY [facility] Last Admin: 08/10/17 12:05 Dose: 100 mg Metoprolol Tartrate (Lopressor) 25 mg PO BID [facility] Last Admin: 08/10/17 12:05 Dose: 25 mg Metronidazole (Flagyl) 500 mg PO Q8 [facility] PRN Reason: Protocol Last Admin: 08/10/17 05:02 Dose: 500 mg Ondansetron HCl (Zofran Inj) 4 mg IVP Q4H PRN PRN Reason: Nausea/Vomiting Pantoprazole Sodium (Protonix Ec Tab) 40 mg PO DAILY [facility] Last Admin: 08/10/17 12:05 Dose: 40 mg Pregabalin (Lyrica) 75 mg PO BID [facility] Last Admin: 08/10/17 12:11 Dose: 75 mg Sevelamer HCl (Renagel) 800 mg PO TID [facility] Last Admin: 08/10/17 12:04 Dose: 800 mg Tamsulosin HCl (Flomax) 0.4 mg PO DAILY [facility] Last Admin: 08/10/17 12:04 Dose: 0.4 mg Vancomycin HCl (Vancocin 25 Mg/Ml (Oral Use)) 250 mg PO Q6 [facility] PRN Reason: Protocol Last Admin: 08/10/17 12:06 Dose: 250 mg Vitamin B Complex/Vit C/Folic Acid (Nephro-Eleni) 1 tab PO 0800 [facility] Last Admin: 08/10/17 12:05 Dose: 1 tab Zolpidem Tartrate (Ambien) 10 mg PO HS PRN; Protocol PRN Reason: Insomnia Last Admin: 08/09/17 23:14 Dose: 10 mg - Labs Labs: 08/10/17 10:20 08/10/17 10:20 PT 13.4 SECONDS (9.4-12.5) H 08/06/17 14:32 INR 1.22 (0.93-1.08) H 08/06/17 14:32 APTT 33.5 Seconds (25.1-36.5) 08/06/17 14:32 - Constitutional Appears: Toxic, In Acute Distress - Head Exam Head Exam: ATRAUMATIC, NORMOCEPHALIC - Eye Exam Eye Exam: EOMI, Normal appearance Pupil Exam: NORMAL ACCOMODATION, PERRL - ENT Exam ENT Exam: Mucous Membranes Moist, Normal Oropharynx - Neck Exam Neck Exam: Normal Inspection - Respiratory Exam Respiratory Exam: Clear to Ausculation Bilateral, NORMAL BREATHING PATTERN - Cardiovascular Exam Cardiovascular Exam: RRR, +S1, +S2 - GI/Abdominal Exam GI & Abdominal Exam: Soft, Normal Bowel Sounds - Extremities Exam Extremities Exam: Normal Capillary Refill, Normal Inspection - Back Exam Back Exam: NORMAL INSPECTION. absent: CVA tenderness (L), CVA tenderness (R) - Neurological Exam Neurological Exam: Alert, CN II-XII Intact, Oriented x3 - Psychiatric Exam Psychiatric exam: Depressed, Normal Affect - Skin Skin Exam: Dry, Intact, Normal Color, Warm - Additional Findings Additional findings: patient wrapped in blanket Assessment and Plan - Assessment and Plan (Free Text) Assessment: 56 year old male with a past medical history of ESRD (HD TTS), CAD, DM II, CVA, hypertension, dyslipidemia, and recent gram negative bactermia treated for his last hospitalization who presented with 2.5 days of brisk, jet black diarrhea, vomiting, decreased PO intake and feelings of generalized malaise. The patient' s stool came back C. difficile antigen (+) and toxin (-) and was started on PO Vancomycin. On day 2 of his hospitalization the patient underwent dialysis and developed a high-fever, chills, and rigors after dialysis. Preliminary blood cultures were positive for a gram negative bacteria x2. Infectius disease was consulted and intravenous Vancomycin, Meropenem, and one dose of Amikacin were instituted. On 08/10/17, the patient developed fevers of 103 F, chills, and rigors during dialysis. Plan: 1) Gram negative yumiko bacteremia likely secondary to infected HD catheter - Interventional Radiology consulted to remove HD catheter; tentatively scheduled for noon tomorrow - 2 sets of blood cultures positive for gram negative yumiko. - Tylenol 650 mg q6h PRN fever greater than 100.4 F - Vancomycin 1 gm q 48 - Infectious disease consulted, Dr. Cohn, appreciate recommendations and the close follow up. - Meropenem 500 mg q24h 2) C. difficile associated diarrhea - C. difficile antigen positive and toxin negative: - Vancomycin oral solution 250 mg q6h for 14 days. - Contact precautions 3) CAD - Aspirin 81 - Atorvastatin 40 - Isosorbide Mononitrate 60. 4) ESRD - Dr. Garrett consulted - Continue with Nephrovite - Sevelamer 800 mg TID - Dialysis Monday, , Monday per nephrology recommendations. 5) Hypertension - Hydralazine 10 mg IVP for SBP >160 or DBP >100 - Hydralazine 25 mg TID - Metoprolol 25 mg BID - Losartan 100 mg PO daily - Amlodipine 10 mg PO daily 6) DM II with peripheral neuropathy - ISS medium - Pregabalin 75 mg BID daily 7) Urinary retention; with history of ESBL E. coli in the urine - Contact precautions - Patient has Macias - Tamsulosin 0.4 mg PO daily 8) DVT/GI prophylaxis - Heparin 5,000 units SC q8h - Protonix 40 mg IVP Daily <Corey Moore - Last Filed: 08/10/17 16:58> Objective - Vital Signs/Intake and Output Vital Signs (last 24 hours): Temp Pulse Resp BP Pulse Ox 101.2 F H 72 20 113/57 L 98 08/10/17 16:21 08/10/17 16:21 08/10/17 16:21 08/10/17 16:21 08/10/17 16:21 Intake and Output: 08/10/17 08/10/17 06:59 18:59 Intake Total 720 Output Total 1102 Balance -382 - Medications Medications: Current Medications Acetaminophen (Tylenol 325mg Tab) 650 mg PO Q4H PRN PRN Reason: Temperature Last Admin: 08/10/17 12:12 Dose: 650 mg Amlodipine Besylate (Norvasc) 5 mg PO DAILY [facility] Last Admin: 08/09/17 11:07 Dose: 5 mg Aspirin (Ecotrin) 81 mg PO DAILY [facility] Last Admin: 08/09/17 11:08 Dose: 81 mg Atorvastatin Calcium (Lipitor) 40 mg PO DIN [facility] Last Admin: 08/09/17 18:58 Dose: 40 mg Heparin Sodium (Porcine) (Heparin) 5,000 units SC Q8 [facility] PRN Reason: Protocol Hydralazine HCl (Apresoline) 10 mg IVP Q6H PRN PRN Reason: SBP > 160, DBP >100 Hydralazine HCl (Apresoline) 25 mg PO TID [facility] Last Admin: 08/10/17 14:10 Dose: Not Given Meropenem 500 mg/ Sodium (Chloride) 100 mls @ 100 mls/hr IVPB Q24H [facility] PRN Reason: Protocol Last Admin: 08/09/17 23:08 Dose: 100 mls/hr Insulin Human Regular (Humulin R Med) 0 units SC ACHS [facility] PRN Reason: Protocol Last Admin: 08/10/17 12:11 Dose: 1 units Isosorbide Mononitrate (Imdur) 60 mg PO DAILY [facility] Last Admin: 08/10/17 12:04 Dose: 60 mg Losartan Potassium (Cozaar) 100 mg PO DAILY [facility] Last Admin: 08/10/17 12:05 Dose: 100 mg Metoprolol Tartrate (Lopressor) 25 mg PO BID [facility] Last Admin: 08/10/17 12:05 Dose: 25 mg Metronidazole (Flagyl) 500 mg PO Q8 [facility] PRN Reason: Protocol Last Admin: 08/10/17 05:02 Dose: 500 mg Ondansetron HCl (Zofran Inj) 4 mg IVP Q4H PRN PRN Reason: Nausea/Vomiting Pantoprazole Sodium (Protonix Ec Tab) 40 mg PO DAILY [facility] Last Admin: 08/10/17 12:05 Dose: 40 mg Pregabalin (Lyrica) 75 mg PO BID [facility] Last Admin: 08/10/17 12:11 Dose: 75 mg Sevelamer HCl (Renagel) 800 mg PO TID [facility] Last Admin: 08/10/17 12:04 Dose: 800 mg Tamsulosin HCl (Flomax) 0.4 mg PO DAILY [facility] Last Admin: 08/10/17 12:04 Dose: 0.4 mg Vancomycin HCl (Vancocin 25 Mg/Ml (Oral Use)) 250 mg PO Q6 [facility] PRN Reason: Protocol Last Admin: 08/10/17 12:06 Dose: 250 mg Vitamin B Complex/Vit C/Folic Acid (Nephro-Eleni) 1 tab PO 0800 [facility] Last Admin: 08/10/17 12:05 Dose: 1 tab Zolpidem Tartrate (Ambien) 10 mg PO HS PRN; Protocol PRN Reason: Insomnia Last Admin: 08/09/17 23:14 Dose: 10 mg - Labs Labs: 08/10/17 10:20 08/10/17 10:20 PT 13.4 SECONDS (9.4-12.5) H 08/06/17 14:32 INR 1.22 (0.93-1.08) H 08/06/17 14:32 APTT 33.5 Seconds (25.1-36.5) 08/06/17 14:32 Attending/Attestation - Attestation I have personally seen and examined this patient.: Yes I have fully participated in the care of the patient.: Yes I have reviewed all pertinent clinical information, including history, physical exam and plan: Yes Notes (Text): 08/10/17 16:54 Patient was seen and examined with medical secretary. Agreed with resident assessment and plan. 56 year old male with a past medical history of ESRD (HD TTS), CAD, DM II, CVA, hypertension, dyslipidemia, with sepsis due to gram negative bactermia .identification is pending, on IV Meropenem as per ID.Etiology is likely due to line sepsis.Patient has H/O Pseudomonas bacteremia ,and lung abscess.We will get CT chest and abdomen and Pelvis. Management plan was discussed in detail with patient Education was provided.
--- NOTE | 2017-08-10 18:34 | CP.PCM.PN ---
Subjective - Date & Time of Evaluation Date of Evaluation: 08/10/17 Time of Evaluation: 17:15 - Subjective Subjective: Infectious Disease Follow Up: August 10, 2017 56 yo male known to me in the distant past presenting with fevers and body chills after dialysis today. His initial presentation was for jet black, brisk diarrhea and concurrent vomiting. The patient apparently completed a treatment for Pseudomonas about a week before admission. Patient is leukopenic and neutropenic at this time. Patient does not know what antibiotic he received in the outpatient setting. Still had a fever tonight. On Vancomycin and Meropenem for treatment at this time. Fever up to 101.2 F. Identification of gram negative rods pending. Patient needs change of all indwelling lines. Objective - Vital Signs/Intake and Output Vital Signs (last 24 hours): Temp Pulse Resp BP Pulse Ox 101.2 F H 72 20 113/57 L 98 08/10/17 16:21 08/10/17 16:21 08/10/17 16:21 08/10/17 16:21 08/10/17 16:21 Intake and Output: 08/10/17 08/10/17 06:59 18:59 Intake Total 720 Output Total 1102 Balance -382 - Medications Medications: Current Medications Acetaminophen (Tylenol 325mg Tab) 650 mg PO Q4H PRN PRN Reason: Temperature Last Admin: 08/10/17 12:12 Dose: 650 mg Amlodipine Besylate (Norvasc) 5 mg PO DAILY [facility] Last Admin: 08/09/17 11:07 Dose: 5 mg Aspirin (Ecotrin) 81 mg PO DAILY [facility] Last Admin: 08/09/17 11:08 Dose: 81 mg Atorvastatin Calcium (Lipitor) 40 mg PO DIN [facility] Last Admin: 08/09/17 18:58 Dose: 40 mg Heparin Sodium (Porcine) (Heparin) 5,000 units SC Q8 [facility] PRN Reason: Protocol Hydralazine HCl (Apresoline) 10 mg IVP Q6H PRN PRN Reason: SBP > 160, DBP >100 Hydralazine HCl (Apresoline) 25 mg PO TID [facility] Last Admin: 08/10/17 14:10 Dose: Not Given Meropenem 500 mg/ Sodium (Chloride) 100 mls @ 100 mls/hr IVPB Q24H [facility] PRN Reason: Protocol Last Admin: 08/09/17 23:08 Dose: 100 mls/hr Insulin Human Regular (Humulin R Med) 0 units SC ACHS [facility] PRN Reason: Protocol Last Admin: 08/10/17 12:11 Dose: 1 units Isosorbide Mononitrate (Imdur) 60 mg PO DAILY [facility] Last Admin: 08/10/17 12:04 Dose: 60 mg Losartan Potassium (Cozaar) 100 mg PO DAILY [facility] Last Admin: 08/10/17 12:05 Dose: 100 mg Metoprolol Tartrate (Lopressor) 25 mg PO BID [facility] Last Admin: 08/10/17 12:05 Dose: 25 mg Metronidazole (Flagyl) 500 mg PO Q8 [facility] PRN Reason: Protocol Last Admin: 08/10/17 05:02 Dose: 500 mg Ondansetron HCl (Zofran Inj) 4 mg IVP Q4H PRN PRN Reason: Nausea/Vomiting Pantoprazole Sodium (Protonix Ec Tab) 40 mg PO DAILY [facility] Last Admin: 08/10/17 12:05 Dose: 40 mg Pregabalin (Lyrica) 75 mg PO BID [facility] Last Admin: 08/10/17 12:11 Dose: 75 mg Sevelamer HCl (Renagel) 800 mg PO TID [facility] Last Admin: 08/10/17 12:04 Dose: 800 mg Tamsulosin HCl (Flomax) 0.4 mg PO DAILY [facility] Last Admin: 08/10/17 12:04 Dose: 0.4 mg Vancomycin HCl (Vancocin 25 Mg/Ml (Oral Use)) 250 mg PO Q6 [facility] PRN Reason: Protocol Last Admin: 08/10/17 12:06 Dose: 250 mg Vitamin B Complex/Vit C/Folic Acid (Nephro-Eleni) 1 tab PO 0800 [facility] Last Admin: 08/10/17 12:05 Dose: 1 tab Zolpidem Tartrate (Ambien) 10 mg PO HS PRN; Protocol PRN Reason: Insomnia Last Admin: 08/09/17 23:14 Dose: 10 mg - Labs Labs: 08/10/17 10:20 08/10/17 10:20 PT 13.4 SECONDS (9.4-12.5) H 08/06/17 14:32 INR 1.22 (0.93-1.08) H 08/06/17 14:32 APTT 33.5 Seconds (25.1-36.5) 08/06/17 14:32 - Constitutional Appears: Non-toxic, No Acute Distress, Chronically Ill - Head Exam Head Exam: ATRAUMATIC, NORMOCEPHALIC - Eye Exam Eye Exam: EOMI, PERRL Pupil Exam: NORMAL ACCOMODATION, PERRL - ENT Exam ENT Exam: Mucous Membranes Moist, Normal External Ear Exam, TM's Normal Bilaterally - Neck Exam Neck Exam: Full ROM, Normal Inspection - Respiratory Exam Respiratory Exam: Clear to Ausculation Bilateral, NORMAL BREATHING PATTERN. absent: Rales, Rhonchi, Wheezes - Cardiovascular Exam Cardiovascular Exam: REGULAR RHYTHM, RRR, +S1, +S2 - GI/Abdominal Exam GI & Abdominal Exam: Soft, Normal Bowel Sounds. absent: Distended, Tenderness - Extremities Exam Additional comments: right forefoot amputation - Neurological Exam Neurological Exam: Alert, Awake, CN II-XII Intact, Oriented x3 - Skin Skin Exam: Dry, Intact Assessment and Plan - Assessment and Plan (Free Text) Assessment: 56 yo male with initial presentation of diarrhea, vomiting, and abdominal pain. The patient developed fevers and leukopenia today. Damon cultures sent. Vancomycin and Meropenem started. Will give a dose of aminoglycoside. Procalcitonin severely elevated at 59. Lactic acid increasing to 2.8. WBC recovered from 1.3 back to 9.0. Check influenza titers as well. The patient may need neutropenic precautions. Supportive care. Gram negative rods seen in the blood cultures. Patient with gram negative bacteremia and likely septicemia. Patient with medical history of ESRD on HD, CAD, HTN, and DM. Remains on Meropenem and Vancomycin. Thank you for allowing me to participate in the care of the patient, we will follow with you.
--- NOTE | 2017-08-10 20:51 | CT ---
EXAM: CT Chest Without Intravenous Contrast CLINICAL HISTORY: 56 years old, male; Signs and symptoms; Other: Sepsis; Prior surgery; Surgery date: 6+ months; Surgery type: HX coronary bypass, HX cholecystectomy; Patient HX: HX renal failure on dialysis; sepsis; possible GI bleed; prior septic emboli TECHNIQUE: Axial computed tomography images of the chest without intravenous contrast. All CT scans at this facility use one or more dose reduction techniques, viz.: automated exposure control; ma/kV adjustment per patient size (including targeted exams where dose is matched to indication; i.e. head); or iterative reconstruction technique. Coronal and sagittal reformatted images were created and reviewed. COMPARISON: CT chest 05/31/17 FINDINGS: Lungs and pleural spaces: Trachea and main bronchi are patent. There is minimal scarring at the lung apices. There is focal scarring in the right upper lobe at site of prior embolus. There is focal scarring in the left upper lobe sites of prior emboli. There is a new 5 mm nodular opacity superior segment right upper lobe, image 58 series 4. There is irregular pleural thickening in the posterior left hemithorax increased slightly compared to the prior study 05/31/17. There is no lobar or segmental consolidation. There are no effusions. Mediastinum: There are multiple clips in the mediastinum. There are shotty mediastinal nodes.Jamilah are not optimally evaluated without contrast material. Esophagus is unremarkable. There is a small hiatal hernia. There is fatty infiltration of the lower posterior mediastinum. Thyroid: Thyroid is only partially imaged. Bones/joints: There are no acute osseous abnormalities. There are postsurgical changes of median sternotomy Soft tissues: unremarkable Heart and Vasculature: Heart size is at the upper limits of normal. There are coronary artery calcifications and/or stents. There is no pericardial effusion.Aorta and main pulmonary artery are normal in caliber. There is atherosclerotic calcification in the aorta and great vessels. Upper abdomen: Refer to follow report for abdominal findings Tubes, lines and devices: There is a double lumen dialysis catheter with the tip in the low superior vena cava. IMPRESSION: Interval resolution of bilateral septic emboli with small residual areas of scarring greatest in the upper lobes; new 5 mm superior segment right lower lobe nodule difficult to characterize; no focal pneumonia Additional findings as described above. EXAM: CT Abdomen and Pelvis Without Intravenous Contrast EXAM DATE/TIME: 08/10/2017 11:53 AM CLINICAL HISTORY: 56 years old, male; Signs and symptoms; Other: Sepsis; Prior surgery; Surgery date: 6+ months; Surgery type: HX coronary bypass, HX cholecystectomy; Patient HX: HX renal failure on dialysis; sepsis; possible GI bleed; prior septic emboli TECHNIQUE: Axial computed tomography images of the abdomen and pelvis without intravenous contrast. All CT scans at this facility use one or more dose reduction techniques, viz.: automated exposure control; ma/kV adjustment per patient size (including targeted exams where dose is matched to indication; i.e. head); or iterative reconstruction technique. Coronal and sagittal reformatted images were created and reviewed. COMPARISON: CT - ABD PELVIS W/O PO OR IV CONT 2017-08-06 17:42 FINDINGS: Artifacts: Motion artifact degrades image quality. Lower thorax: Refer to prior report for chest findings ABDOMEN: Liver: unremarkable Gallbladder and bile ducts: Gallbladder is absent. There is prominence of the common duct. Pancreas: Pancreas is atrophic. Spleen: unremarkable Adrenals: unremarkable Kidneys and ureters: Kidneys are normal in size. There is pelvic sinus lipomatosis bilaterally. There are renal vascular calcifications bilaterally.There is no pelvocaliectasis or ureterectasis. Stomach and bowel: Stomach is incompletely distended. Rotation is normal. There is fluid and air throughout small bowel. Streak and motion limit evaluation of the ileocecal region. Terminal ileum is unremarkable. Appendix is not visualized. Colon is incompletely distended which limits evaluation. There is scattered diverticulosis Appendix: See stomach and bowel PELVIS: Bladder: Bladder is almost completely empty. There is a Macias catheter. Reproductive: Seminal vesicles and prostate are unremarkable. ABDOMEN and PELVIS: Intraperitoneal space: There is no free air or free fluid. Bones/joints: There are no acute osseous abnormalities. Soft tissues: unremarkable Vasculature: There are atherosclerotic calcifications in aorta and iliacs. There is extensive calcification of small vessels. Lymph nodes: There is shotty adenopathy. IMPRESSION: Extensive atherosclerotic disease; wire cholecystectomy; no acute solid visceral or bowel abnormality Additional findings as described above.
[2017-08-10] MEDS: Meropenem 500 MG in Sodium Chloride 0.9% 100 ML IVPB SCH (22:53)
--- NOTE | 2017-08-10 23:48 | PN ---
DATE: 08/10/2017 LOCATION: The patient is in room 560, bed 1. REASON FOR CONSULTATION AND FOLLOWUP: History of coronary artery disease, CABG admitted with black tarry stool and coffee-ground material. Now, the patient has fever and chills, and blood culture show gram-negative rods. The patient has sepsis. SUBJECTIVE: The patient is lying flat in bed without chest pain, shortness or breath, or palpitation. He states while on dialysis this morning, he had shaking chills and fever. PHYSICAL EXAMINATION VITAL SIGNS: Blood pressure 134/59, respirations 20, pulse 63, and temperature 97.8. HEENT: Head is normocephalic. Eyes; pupils are normal. Conjunctivae slightly pale. NECK: JVP is low. Carotids are equal. THORAX: AP diameter normal. LUNGS: Clear. CARDIOVASCULAR: S1 and S2. ABDOMEN: Soft and nontender. No organomegaly. EXTREMITIES: No clubbing. No cyanosis. LABORATORY DATA: WBC 7.9, hemoglobin 11.3, hematocrit 34.9, and platelets 160. Sodium 133, potassium 3.7, BUN 53, creatinine 8.1, random sugar 149, phosphorus 4.3, magnesium 2.0. Total protein and albumin are normal. DIAGNOSES: Gram-negative rods on blood culture and sepsis; history of coffee-ground material vomiting; black stools; history of coronary artery disease, status post coronary artery bypass surgery; history of renal failure, on dialysis; prior to coronary artery bypass graft, the patient also had stents in surgery; peripheral vascular disease; history of amputation of part of the foot. PLAN: The patient is on hydralazine 25 t.i.d., losartan 100 mg daily, aspirin 81 mg daily, Flagyl 500 mg p.o. q. 8 hours, Flomax 0.4 daily, heparin 5000 units subcutaneous q. 8 hours, Imdur 60 mg daily, Lipitor 40 mg daily, metoprolol 25 b.i.d., Lyrica 75 mg b.i.d., Merrem 500 mg IV q. 24 hours, amlodipine 5 mg daily, Protonix 40 daily, Renagel 800 mg p.o. t.i.d., vancomycin 250 mg p.o. q. 6 hours. We will continue present therapy. We will follow with you. Corey Shine MD [facility] # [id number]
[2017-08-11] MEDS: Vancomycin 25 MG/ML PO SCH ×5 (00:02→23:54)
[2017-08-11 07:08] LABS: HEMATOCRIT 34.4 % (42.0-52.0); MEAN CORPUSCULAR HEMOGLOBIN 27.9 pg (25.0-35.0); MEAN CORPUSCULAR HGB CONC 31.7 g/dl (31.0-37.0); MEAN PLATELET VOLUME 10.7 fl (7.0-11.0); RED CELL DISTRIBUTION WIDTH 16.7 % (11.5-14.5); WHITE BLOOD COUNT 8.3 10^3/ul (4.5-11.0)
--- NOTE | 2017-08-11 07:55 | CP.PCM.PN ---
<Kayleigh Martinez - Last Filed: 08/11/17 11:43> Subjective - Date & Time of Evaluation Date of Evaluation: 08/11/17 Time of Evaluation: 07:52 - Subjective Subjective: Kayleigh Martinez DO, PGY-1: Hospitalist Service Patient seen and examined at bedside. Patient reports improvement in fever with cooling blanket and denies having a fever after the episode after dialysis. Patient has appetite, denies, nausea, vomiting or diarrhea. Nurse reports no events overnight. Objective - Vital Signs/Intake and Output Vital Signs (last 24 hours): Temp Pulse Resp BP Pulse Ox 98.6 F 74 20 128/76 96 08/11/17 07:30 08/11/17 07:30 08/11/17 07:30 08/11/17 07:30 08/11/17 07:30 Intake and Output: 08/11/17 08/11/17 06:59 18:59 Intake Total 1200 Output Total 625 Balance 575 - Medications Medications: Current Medications Acetaminophen (Tylenol 325mg Tab) 650 mg PO Q4H PRN PRN Reason: Temperature Last Admin: 08/10/17 12:12 Dose: 650 mg Amlodipine Besylate (Norvasc) 5 mg PO DAILY [facility] Last Admin: 08/10/17 12:05 Dose: Not Given Aspirin (Ecotrin) 81 mg PO DAILY [facility] Last Admin: 08/10/17 12:10 Dose: 81 mg Atorvastatin Calcium (Lipitor) 40 mg PO DIN [facility] Last Admin: 08/10/17 19:27 Dose: 40 mg Heparin Sodium (Porcine) (Heparin) 5,000 units SC Q8 [facility] PRN Reason: Protocol Last Admin: 08/11/17 06:03 Dose: 5,000 units Hydralazine HCl (Apresoline) 10 mg IVP Q6H PRN PRN Reason: SBP > 160, DBP >100 Hydralazine HCl (Apresoline) 25 mg PO TID [facility] Last Admin: 08/10/17 19:29 Dose: 25 mg Meropenem 500 mg/ Sodium (Chloride) 100 mls @ 100 mls/hr IVPB Q24H [facility] PRN Reason: Protocol Last Admin: 08/10/17 22:53 Dose: 100 mls/hr Insulin Human Regular (Humulin R Med) 0 units SC ACHS [facility] PRN Reason: Protocol Last Admin: 08/10/17 21:38 Dose: Not Given Isosorbide Mononitrate (Imdur) 60 mg PO DAILY [facility] Last Admin: 08/10/17 12:04 Dose: 60 mg Losartan Potassium (Cozaar) 100 mg PO DAILY [facility] Last Admin: 08/10/17 12:05 Dose: 100 mg Metoprolol Tartrate (Lopressor) 25 mg PO BID [facility] Last Admin: 08/10/17 19:30 Dose: 25 mg Metronidazole (Flagyl) 500 mg PO Q8 [facility] PRN Reason: Protocol Last Admin: 08/11/17 06:03 Dose: 500 mg Ondansetron HCl (Zofran Inj) 4 mg IVP Q4H PRN PRN Reason: Nausea/Vomiting Pantoprazole Sodium (Protonix Ec Tab) 40 mg PO DAILY [facility] Last Admin: 08/10/17 12:05 Dose: 40 mg Pregabalin (Lyrica) 75 mg PO BID [facility] Last Admin: 08/10/17 19:30 Dose: 75 mg Sevelamer HCl (Renagel) 800 mg PO TID [facility] Last Admin: 08/10/17 19:32 Dose: 800 mg Tamsulosin HCl (Flomax) 0.4 mg PO DAILY [facility] Last Admin: 08/10/17 12:04 Dose: 0.4 mg Vancomycin HCl (Vancocin 25 Mg/Ml (Oral Use)) 250 mg PO Q6 [facility] PRN Reason: Protocol Last Admin: 08/11/17 06:02 Dose: 250 mg Vitamin B Complex/Vit C/Folic Acid (Nephro-Eleni) 1 tab PO 0800 [facility] Last Admin: 08/10/17 12:05 Dose: 1 tab Zolpidem Tartrate (Ambien) 10 mg PO HS PRN; Protocol PRN Reason: Insomnia Last Admin: 08/10/17 21:33 Dose: 10 mg - Labs Labs: 08/11/17 06:30 08/10/17 10:20 PT 13.4 SECONDS (9.4-12.5) H 08/06/17 14:32 INR 1.22 (0.93-1.08) H 08/06/17 14:32 APTT 33.5 Seconds (25.1-36.5) 08/06/17 14:32 - Constitutional Appears: Well, Non-toxic - Head Exam Head Exam: ATRAUMATIC, NORMOCEPHALIC - Eye Exam Eye Exam: EOMI, Normal appearance - ENT Exam ENT Exam: Mucous Membranes Moist, Normal Oropharynx - Neck Exam Neck Exam: Normal Inspection - Respiratory Exam Respiratory Exam: Clear to Ausculation Bilateral, NORMAL BREATHING PATTERN. absent: Accessory Muscle Use - Cardiovascular Exam Cardiovascular Exam: RRR, +S1, +S2 - GI/Abdominal Exam GI & Abdominal Exam: Soft, Normal Bowel Sounds - Extremities Exam Extremities Exam: Normal Inspection. absent: Calf Tenderness Additional comments: right forefoot missing - Back Exam Back Exam: NORMAL INSPECTION. absent: CVA tenderness (L), CVA tenderness (R) - Neurological Exam Neurological Exam: Alert, Awake, CN II-XII Intact, Oriented x3 - Psychiatric Exam Psychiatric exam: Normal Affect, Normal Mood - Skin Skin Exam: Dry, Intact, Normal Color, Warm. absent: Petechiae, Rash Assessment and Plan - Assessment and Plan (Free Text) Assessment: 56 year old male with a past medical history of ESRD (HD TTS), CAD, DM II, CVA, hypertension, dyslipidemia, and recently treated gram negative bactermia who presented with 2.5 days of brisk, jet black diarrhea, vomiting, decreased PO intake and feelings of generalized malaise. The patient's stool came back postive for C. difficile antigen (+) and negative for toxin and was started on PO Vancomycin for recurrence of C. difficile. On day 2 of his hospitalization the patient underwent dialysis and developed a high-fever, chills, and rigors after dialysis. Blood cultures were positive for Pseudomonas aeruginosa. Patient 's HD dialysis catheter will likely be to be taken out today. Plan: 1) Pseudomonas bacteremia likely secondary to infected HD catheter - Interventional Radiology consulted to remove HD catheter today - Tylenol 650 mg q6h PRN fever greater than 100.4 F - Infectious disease consulted, Dr. Cohn, appreciate recommendations and the close follow up. - Meropenem 500 mg q24h - Urine culture (-) - Sputum culture - CT chest without contrast reads as interval resolution of bilateral septic emboli with small residual areas of scarring greatest in the upper lobes; new 5 mm superior segment right lower lobe nodule difficult to characterize; no focal pneumonia. - CT of abdomen and pelvis without contrast shows no acute findings. 2) C. difficile associated diarrhea - Vancomycin 250 mg q6 PO 3) CAD - Aspirin 81 - Atorvastatin 40 - Isosorbide Mononitrate 60. 4) ESRD - Dr. Garrett consulted - Continue with Nephrovite - Sevelamer 800 mg TID - Dialysis per nephrology recommendations. 5) Hypertension - Hydralazine 10 mg IVP for SBP >160 or DBP >100 - Hydralazine 25 mg TID - Metoprolol 25 mg BID - Losartan 100 mg PO daily - Amlodipine 10 mg PO daily - Cardiology recommendations appreciated 6) DM II with peripheral neuropathy - ISS medium - Pregabalin 75 mg BID daily 7) Urinary retention - Contact precautions - Patient has Macias - Tamsulosin 0.4 mg PO daily 8) DVT/GI prophylaxis/prevention of healthcare-related illness - Heparin 5,000 units SC q8h - Protonix 40 mg IVP Daily - Contact precautions <Corey Moore - Last Filed: 08/11/17 17:20> Objective - Vital Signs/Intake and Output Vital Signs (last 24 hours): Temp Pulse Resp BP Pulse Ox 98.5 F 66 20 145/78 98 08/11/17 16:49 08/11/17 16:49 08/11/17 16:49 08/11/17 16:49 08/11/17 16:49 Intake and Output: 08/11/17 08/11/17 06:59 18:59 Intake Total 1200 1420 Output Total 625 1300 Balance 575 120 - Medications Medications: Current Medications Acetaminophen (Tylenol 325mg Tab) 650 mg PO Q4H PRN PRN Reason: Temperature Last Admin: 08/10/17 12:12 Dose: 650 mg Amlodipine Besylate (Norvasc) 5 mg PO DAILY [facility] Last Admin: 08/11/17 09:30 Dose: 5 mg Aspirin (Ecotrin) 81 mg PO DAILY [facility] Last Admin: 08/11/17 09:30 Dose: 81 mg Atorvastatin Calcium (Lipitor) 40 mg PO DIN [facility] Last Admin: 08/10/17 19:27 Dose: 40 mg Heparin Sodium (Porcine) (Heparin) 5,000 units SC Q8 [facility] PRN Reason: Protocol Last Admin: 08/11/17 14:16 Dose: 5,000 units Hydralazine HCl (Apresoline) 10 mg IVP Q6H PRN PRN Reason: SBP > 160, DBP >100 Hydralazine HCl (Apresoline) 25 mg PO TID [facility] Last Admin: 08/11/17 14:15 Dose: 25 mg Meropenem 500 mg/ Sodium (Chloride) 100 mls @ 100 mls/hr IVPB Q24H [facility] PRN Reason: Protocol Last Admin: 08/10/17 22:53 Dose: 100 mls/hr Insulin Human Regular (Humulin R Med) 0 units SC ACHS [facility] PRN Reason: Protocol Last Admin: 08/11/17 12:07 Dose: 5 units Isosorbide Mononitrate (Imdur) 60 mg PO DAILY [facility] Last Admin: 08/11/17 09:30 Dose: 60 mg Losartan Potassium (Cozaar) 100 mg PO DAILY [facility] Last Admin: 08/11/17 09:30 Dose: 100 mg Metoprolol Tartrate (Lopressor) 25 mg PO BID [facility] Last Admin: 08/11/17 09:30 Dose: 25 mg Ondansetron HCl (Zofran Inj) 4 mg IVP Q4H PRN PRN Reason: Nausea/Vomiting Pantoprazole Sodium (Protonix Ec Tab) 40 mg PO DAILY [facility] Last Admin: 08/11/17 09:31 Dose: 40 mg Pregabalin (Lyrica) 75 mg PO BID [facility] Last Admin: 08/11/17 09:30 Dose: 75 mg Sevelamer HCl (Renagel) 800 mg PO TID [facility] Last Admin: 08/11/17 14:16 Dose: 800 mg Tamsulosin HCl (Flomax) 0.4 mg PO DAILY [facility] Last Admin: 08/11/17 09:30 Dose: 0.4 mg Vancomycin HCl (Vancocin 25 Mg/Ml (Oral Use)) 250 mg PO Q6 [facility] PRN Reason: Protocol Last Admin: 08/11/17 12:08 Dose: 250 mg Vitamin B Complex/Vit C/Folic Acid (Nephro-Eleni) 1 tab PO 0800 [facility] Last Admin: 08/11/17 09:30 Dose: 1 tab Zolpidem Tartrate (Ambien) 10 mg PO HS PRN; Protocol PRN Reason: Insomnia Last Admin: 08/10/17 21:33 Dose: 10 mg - Labs Labs: 08/11/17 06:30 08/11/17 06:30 PT 13.4 SECONDS (9.4-12.5) H 08/06/17 14:32 INR 1.22 (0.93-1.08) H 08/06/17 14:32 APTT 33.5 Seconds (25.1-36.5) 08/06/17 14:32 Attending/Attestation - Attestation I have personally seen and examined this patient.: Yes I have fully participated in the care of the patient.: Yes I have reviewed all pertinent clinical information, including history, physical exam and plan: Yes Notes (Text): 08/11/17 17:18 Patient was seen and examined with registered medical transcriptionist. Agreed with resident assessment and plan. 56 year old male with a past medical history of ESRD (HD TTS), CAD, DM II, CVA, hypertension, dyslipidemia, with sepsis due to Pseudomonas bactermia , on IV Meropenem as per ID.Etiology is likely due to line sepsis.Patient case was discussed with IR and Nephrology.Patient is scheduled for removal of dialysis cathter today by IR.We will repeat follow up cultures. Management plan was discussed in detail with patient Education was provided.
[2017-08-11 07:56] LABS: ALB/GLOB RATIO 1.2 (1.1-1.8); BILIRUBIN,TOTAL 0.5 mg/dL (0.2-1.3); CALCIUM 8.4 mg/dL (8.4-10.5); POTASSIUM 3.7 mmol/L (3.6-5.0); TOTAL PROTEIN 5.9 g/dL (5.8-8.3)
[2017-08-11] MEDS: Insulin Reg-MEDIUM-Coverage SC SCH ×4 (08:10→22:38)
[2017-08-11] MEDS: Multivitamin Vitamin B Complex (Nephro-Vite) Tab PO SCH (09:30)
[2017-08-11] MEDS: Pantoprazole 40 mg EC Tab PO SCH (09:31)
--- NOTE | 2017-08-11 13:00 | CP.PCM.PN ---
Subjective - Date & Time of Evaluation Date of Evaluation: 08/11/17 Time of Evaluation: 12:56 - Subjective Subjective: Follow up Nephrology Consultation: Assessment: critical Sepsis with psuedomonas likely due to permacath related infection esophageal ulceration, gastroparesis Nausea/vomitting, diarrhoea ? related to above Diabetic chronic Kidney Disease (E11.22) Hypertensive Chronic Kidney Disease (I12.0) End stage renal disease (N18.6) dependence on hemodialysis (Z99.2) (TTS) Anemia (D64.9), Hyperphosphatemia (E83.39), Secondary Hyperparathyroidism (E21.1 ), HTN (I12.0) CAD s/p CABG chronic urine retention Plan: For HD tomorrow as ordered. continue with Nephrovite 1 tab/day. Hb fluctuating today 10.9. getting weekly aranesp Continue with hectorol with dialysis. BP control with meds as ordered. Patient on RAAS anjelica Glycemic control, Dialysis consistent diet Further work up/management as per primary team Dose meds/antibiotics for ESRD status. Avoid fleets enema/magnesium based laxatives. GI, ID following. antibiotics as per ID. started renagel 800 mg TID with meals for high phos pt advised to consider self intermittent catheterization instead of indwelling martinez. D/w primary team: Due to pseudomonas bacteremia, prefer to remove the permacath , insert temporary dialysis access and can place new permacath once blood cx negative. IR consulted. d/w ID as well and agreed with above strategy. pt again reinforced not to shower or let catheter get wet with water Thanks for allowing me to participate in care of your patient. Will follow patient with you. Please call if any Qs. d/w team Dr Sancho Garrett Office: [phone] HPI: Pt is a 56 y/o M with hx of ESRD on hemodialysis (TTS) via permacath, last dialysis sat, chronic anemia, hyperphosphatemia, secondary hyperparathyroidism, Diabetes Mellitus, hypertension, urine retention s/p martinez , hx of permacath related infection with psuedomonas and septic embolic, CAD s/ p CABG, esophageal ulceration, gastroparesis came with c/o vomitting as coffee ground and dark stool/loose stool x 2-3 days and being admitted for further work up. he feels better now. GI symptoms has resolved Denies chest pain, palpitation, shortness of breath, leg swelling refuses HD for 4 hrs as ordered, regularly cuts treatment time to 3 hrs only, counselled and educated multiple times Physical Examination: General Appearance: comfortable, in no acute respiratory distress, co-operative . Vitals reviewed and noted as below Head; Atraumatic, normocephalic ENT: no ulcers no thrush. Tongue is midline. Oropharynx: no rash or ulcers. EYES: Pupils are equal, round and reactive to light accommodation. Eye muscles and extraocular movement intact. Sclera is anicteric. Neck; supple no lymphadenopathy, no thyromegaly or bruit Lungs: Normal respiratory rate/effort. Breath sounds bilateral equal and clear Heart: Normal rate. s1s2 normal. No rub or gallop. Extremities: no edema. No varicose veins Neurological: Patient is alert, awake and oriented to person, place and time. No focal deficit. Strength bilateral appropriate and equal Skin: Warm and dry. Normal turgor. No rash. Palpitation: Normal elasticity for age Abdomen: Abdomen is soft. Bowel sounds +. There is no abdominal tenderness, no guarding/rigidity or organomegaly Psych: limited insight has normal affect/mood MSK: no joint tenderness or swelling. Digits and nails normal, no deformity. had toe amputations : kidney or bladder not palpable. has chronic martinez Access: permacath Labs/imaging reviewed. Past medical history, past surgical history, family history, social history, allergy reviewed and noted as below Family Hx: no hx of CKD. Non contributory Objective - Vital Signs/Intake and Output Vital Signs (last 24 hours): Temp Pulse Resp BP Pulse Ox 98.6 F 85 20 129/89 96 08/11/17 07:30 08/11/17 09:31 08/11/17 07:30 08/11/17 09:31 08/11/17 07:30 Intake and Output: 08/11/17 08/11/17 06:59 18:59 Intake Total 1200 Output Total 625 Balance 575 - Medications Medications: Current Medications Acetaminophen (Tylenol 325mg Tab) 650 mg PO Q4H PRN PRN Reason: Temperature Last Admin: 08/10/17 12:12 Dose: 650 mg Amlodipine Besylate (Norvasc) 5 mg PO DAILY [facility] Last Admin: 08/11/17 09:30 Dose: 5 mg Aspirin (Ecotrin) 81 mg PO DAILY [facility] Last Admin: 08/11/17 09:30 Dose: 81 mg Atorvastatin Calcium (Lipitor) 40 mg PO DIN [facility] Last Admin: 08/10/17 19:27 Dose: 40 mg Heparin Sodium (Porcine) (Heparin) 5,000 units SC Q8 [facility] PRN Reason: Protocol Last Admin: 08/11/17 06:03 Dose: 5,000 units Hydralazine HCl (Apresoline) 10 mg IVP Q6H PRN PRN Reason: SBP > 160, DBP >100 Hydralazine HCl (Apresoline) 25 mg PO TID [facility] Last Admin: 08/11/17 09:31 Dose: 25 mg Meropenem 500 mg/ Sodium (Chloride) 100 mls @ 100 mls/hr IVPB Q24H [facility] PRN Reason: Protocol Last Admin: 08/10/17 22:53 Dose: 100 mls/hr Insulin Human Regular (Humulin R Med) 0 units SC ACHS [facility] PRN Reason: Protocol Last Admin: 08/11/17 12:07 Dose: 5 units Isosorbide Mononitrate (Imdur) 60 mg PO DAILY [facility] Last Admin: 08/11/17 09:30 Dose: 60 mg Losartan Potassium (Cozaar) 100 mg PO DAILY [facility] Last Admin: 08/11/17 09:30 Dose: 100 mg Metoprolol Tartrate (Lopressor) 25 mg PO BID [facility] Last Admin: 08/11/17 09:30 Dose: 25 mg Ondansetron HCl (Zofran Inj) 4 mg IVP Q4H PRN PRN Reason: Nausea/Vomiting Pantoprazole Sodium (Protonix Ec Tab) 40 mg PO DAILY [facility] Last Admin: 08/11/17 09:31 Dose: 40 mg Pregabalin (Lyrica) 75 mg PO BID [facility] Last Admin: 08/11/17 09:30 Dose: 75 mg Sevelamer HCl (Renagel) 800 mg PO TID [facility] Last Admin: 08/11/17 09:30 Dose: 800 mg Tamsulosin HCl (Flomax) 0.4 mg PO DAILY [facility] Last Admin: 08/11/17 09:30 Dose: 0.4 mg Vancomycin HCl (Vancocin 25 Mg/Ml (Oral Use)) 250 mg PO Q6 [facility] PRN Reason: Protocol Last Admin: 08/11/17 12:08 Dose: 250 mg Vitamin B Complex/Vit C/Folic Acid (Nephro-Eleni) 1 tab PO 0800 [facility] Last Admin: 08/11/17 09:30 Dose: 1 tab Zolpidem Tartrate (Ambien) 10 mg PO HS PRN; Protocol PRN Reason: Insomnia Last Admin: 08/10/17 21:33 Dose: 10 mg - Labs Labs: 08/11/17 06:30 08/11/17 06:30 PT 13.4 SECONDS (9.4-12.5) H 08/06/17 14:32 INR 1.22 (0.93-1.08) H 08/06/17 14:32 APTT 33.5 Seconds (25.1-36.5) 08/06/17 14:32
--- NOTE | 2017-08-11 13:35 | PN ---
DATE: 08/11/2017 LOCATION: The patient is in room 560, bed 1. REASON FOR CONSULTATION AND FOLLOWUP: Coronary artery disease, fever, chills, gram-negative rods on blood cultures, sepsis, episode of diarrhea and vomiting at the time of admission. SUBJECTIVE: The patient is lying flat in bed without chest pain, shortness of breath or palpitation. He states that he is feeling better now compared to yesterday when he had shaking chills while he was on dialysis and fever. PHYSICAL EXAMINATION: VITAL SIGNS: Blood pressure 129/89, respirations 20, pulse 85, and temperature 98.6. HEENT: Head is normocephalic. Eyes; pupils are normal. Conjunctivae slightly pale. NECK: JVP is low. Carotids are equal. THORAX: AP diameter normal. LUNGS: Clear. CARDIOVASCULAR: S1 and S2. ABDOMEN: Soft and nontender. No organomegaly. Bowel sounds are normal. EXTREMITIES: No clubbing. No cyanosis. LABORATORY DATA: WBC 8.3, hemoglobin 10.9, hematocrit 34.4, and platelets 148. Sodium 133, potassium 3.7, BUN 39, creatinine 6.5, and random sugar 272. AST and ALT are normal. Total protein and albumin are normal. DIAGNOSES: Gram-negative rods on blood cultures, sepsis, history of coffee-ground material vomiting and black stools, history of coronary artery disease status post coronary artery bypass surgery, history of renal failure on dialysis. 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 PLAN: The patient is on Cozaar 100 mg daily, aspirin 81 mg daily, hydralazine 25 mg p.o. t.i.d., heparin 5000 q.8 hours subcu, Imdur 60 mg daily, Lipitor 40 daily, metoprolol 25 b.i.d., Lyrica 75 b.i.d., Merrem IV 500 mg q.24 hours, amlodipine 5 mg daily, Protonix 40 daily, and vancomycin 250 mg p.o. q.6 hours. Clinically, cardiac state is stable. Continue present therapy. We will follow with you. Corey Shine MD
[2017-08-11] MEDS ORDERED: Midazolam 2 MG/2 ML VIAL ONE ×4 (16:47→18:00)
[2017-08-11] MEDS ORDERED: Lidocaine 2% Inj (20ml) ONE (16:47)
[2017-08-11] MEDS ORDERED: Iodixanol 320 MG/ML 100 ML BOTTLE IV ONE (16:48)
--- NOTE | 2017-08-11 17:01 | CP.PCM.PN ---
Subjective - Date & Time of Evaluation Date of Evaluation: 08/11/17 Time of Evaluation: 14:45 - Subjective Subjective: Infectious Disease Follow Up: August 11, 2017 56 yo male known to me in the distant past presenting with fevers and body chills after dialysis today. His initial presentation was for jet black, brisk diarrhea and concurrent vomiting. The patient apparently completed a treatment for Pseudomonas about a week before admission. Patient is leukopenic and neutropenic at this time. Patient does not know what antibiotic he received in the outpatient setting. Still had a fever tonight. On Vancomycin and Meropenem for treatment at this time. Fever up to 101.2 F over a day ago. Afebrile today. Identification of gram negative rods pending. Patient needs change of all indwelling lines. Cultures showing Pseudomonas that was highly sensitive. Objective - Vital Signs/Intake and Output Vital Signs (last 24 hours): Temp Pulse Resp BP Pulse Ox 98.5 F 66 20 145/78 98 08/11/17 16:49 08/11/17 16:49 08/11/17 16:49 08/11/17 16:49 08/11/17 16:49 Intake and Output: 08/11/17 08/11/17 06:59 18:59 Intake Total 1200 1420 Output Total 625 1300 Balance 575 120 - Medications Medications: Current Medications Acetaminophen (Tylenol 325mg Tab) 650 mg PO Q4H PRN PRN Reason: Temperature Last Admin: 08/10/17 12:12 Dose: 650 mg Amlodipine Besylate (Norvasc) 5 mg PO DAILY [facility] Last Admin: 08/11/17 09:30 Dose: 5 mg Aspirin (Ecotrin) 81 mg PO DAILY [facility] Last Admin: 08/11/17 09:30 Dose: 81 mg Atorvastatin Calcium (Lipitor) 40 mg PO DIN [facility] Last Admin: 08/10/17 19:27 Dose: 40 mg Heparin Sodium (Porcine) (Heparin) 5,000 units SC Q8 [facility] PRN Reason: Protocol Last Admin: 08/11/17 14:16 Dose: 5,000 units Hydralazine HCl (Apresoline) 10 mg IVP Q6H PRN PRN Reason: SBP > 160, DBP >100 Hydralazine HCl (Apresoline) 25 mg PO TID [facility] Last Admin: 08/11/17 14:15 Dose: 25 mg Meropenem 500 mg/ Sodium (Chloride) 100 mls @ 100 mls/hr IVPB Q24H [facility] PRN Reason: Protocol Last Admin: 08/10/17 22:53 Dose: 100 mls/hr Insulin Human Regular (Humulin R Med) 0 units SC ACHS [facility] PRN Reason: Protocol Last Admin: 08/11/17 12:07 Dose: 5 units Isosorbide Mononitrate (Imdur) 60 mg PO DAILY [facility] Last Admin: 08/11/17 09:30 Dose: 60 mg Losartan Potassium (Cozaar) 100 mg PO DAILY [facility] Last Admin: 08/11/17 09:30 Dose: 100 mg Metoprolol Tartrate (Lopressor) 25 mg PO BID [facility] Last Admin: 08/11/17 09:30 Dose: 25 mg Ondansetron HCl (Zofran Inj) 4 mg IVP Q4H PRN PRN Reason: Nausea/Vomiting Pantoprazole Sodium (Protonix Ec Tab) 40 mg PO DAILY [facility] Last Admin: 08/11/17 09:31 Dose: 40 mg Pregabalin (Lyrica) 75 mg PO BID [facility] Last Admin: 08/11/17 09:30 Dose: 75 mg Sevelamer HCl (Renagel) 800 mg PO TID [facility] Last Admin: 08/11/17 14:16 Dose: 800 mg Tamsulosin HCl (Flomax) 0.4 mg PO DAILY [facility] Last Admin: 08/11/17 09:30 Dose: 0.4 mg Vancomycin HCl (Vancocin 25 Mg/Ml (Oral Use)) 250 mg PO Q6 [facility] PRN Reason: Protocol Last Admin: 08/11/17 12:08 Dose: 250 mg Vitamin B Complex/Vit C/Folic Acid (Nephro-Eleni) 1 tab PO 0800 [facility] Last Admin: 08/11/17 09:30 Dose: 1 tab Zolpidem Tartrate (Ambien) 10 mg PO HS PRN; Protocol PRN Reason: Insomnia Last Admin: 08/10/17 21:33 Dose: 10 mg - Labs Labs: 08/11/17 06:30 08/11/17 06:30 PT 13.4 SECONDS (9.4-12.5) H 08/06/17 14:32 INR 1.22 (0.93-1.08) H 08/06/17 14:32 APTT 33.5 Seconds (25.1-36.5) 08/06/17 14:32 - Constitutional Appears: Non-toxic, No Acute Distress, Chronically Ill - Head Exam Head Exam: ATRAUMATIC, NORMOCEPHALIC - Eye Exam Eye Exam: EOMI, PERRL Pupil Exam: NORMAL ACCOMODATION, PERRL - ENT Exam ENT Exam: Mucous Membranes Moist, Normal External Ear Exam, TM's Normal Bilaterally - Neck Exam Neck Exam: Full ROM, Normal Inspection - Respiratory Exam Respiratory Exam: Clear to Ausculation Bilateral, NORMAL BREATHING PATTERN. absent: Rales, Rhonchi, Wheezes - Cardiovascular Exam Cardiovascular Exam: REGULAR RHYTHM, RRR, +S1, +S2 - GI/Abdominal Exam GI & Abdominal Exam: Soft, Normal Bowel Sounds. absent: Distended, Tenderness - Extremities Exam Additional comments: right forefoot amputation - Neurological Exam Neurological Exam: Alert, Awake, CN II-XII Intact, Oriented x3 - Psychiatric Exam Psychiatric exam: Normal Affect, Normal Mood - Skin Skin Exam: Dry, Intact Assessment and Plan - Assessment and Plan (Free Text) Assessment: 56 yo male with initial presentation of diarrhea, vomiting, and abdominal pain. The patient developed fevers and leukopenia today. Damon cultures sent. Vancomycin and Meropenem started. Will give a dose of aminoglycoside. Procalcitonin severely elevated at 59. Lactic acid increasing to 2.8. WBC recovered from 1.3 back to 9.0. Check influenza titers as well. The patient may need neutropenic precautions. Supportive care. Gram negative rods seen in the blood cultures. Patient with gram negative bacteremia and likely septicemia. Patient with medical history of ESRD on HD, CAD, HTN, and DM. Remains on Meropenem and PO Vancomycin. Last C. Diff partially positive. Would retest C. Diff. The patient with Pseudomonas in cultures. For removal of permacath and placement of a temporary dialysis catheter. Needs 14 days of IV antibiotics. Thank you for allowing me to participate in the care of the patient, we will follow with you.
--- NOTE | 2017-08-11 20:46 | VASCULAR ---
PROCEDURE: Ultrasound and fluoroscopically guided temporary left IJ dialysis catheter. Removal the patient's infected tunneled right dialysis catheter CLINICAL HISTORY: End-stage renal disease. Sepsis with Pseudomonas bacteremia. Needs catheter removed. PHYSICIAN(S): Yousif Cortés M.D. TECHNIQUE: Technique: The relative risks and indications of the procedure were explained to the patient and consent obtained. The patient was placed supine on the arteriogram table and the left neck and chest prepped/draped in the usual sterile fashion. 1% Xylocaine was used to anesthetize the skin and soft tissues at the insertion site. Under direct ultrasound guidance, a singlewall puncture of the left internal jugular vein was performed with a micropuncture set. A 0.035 angled Glidewire was advanced into the IVC. Sequential dilatation was performed with subsequent placement of a Schon XL temporary dialysis catheter with its tip in the right atrium. Both ports aspirate and flush easily. The catheter was secured and a dressing applied. Next the tunneled right IJ dialysis catheter was prepped and draped usual sterile fashion. 1 percent xylocaine was used to anesthetize exit site and tunnel. Blunt dissection was performed with removal of the catheter. Hemostasis was obtained. The patient tolerated the procedure well. The catheter tip was sent for culture IMPRESSION: 1. Ultrasound and fluoroscopically placed temporary left IJ dialysis catheter. 2. Removal the patient's infected tunneled right IJ dialysis catheter. The catheter tip was sent for culture
[2017-08-12 06:40] LABS: HEMATOCRIT 33.8 % (42.0-52.0); MEAN CORPUSCULAR HEMOGLOBIN 28.5 pg (25.0-35.0); MEAN CORPUSCULAR HGB CONC 33.1 g/dl (31.0-37.0); RED CELL DISTRIBUTION WIDTH 15.9 % (11.5-14.5); WHITE BLOOD COUNT 5.4 10^3/ul (4.5-11.0)
[2017-08-12 06:58] LABS: POTASSIUM 3.7 mmol/L (3.6-5.0)
[2017-08-12 06:59] LABS: ALB/GLOB RATIO 1.1 (1.1-1.8); BILIRUBIN,TOTAL 0.5 mg/dL (0.2-1.3); CALCIUM 8.2 mg/dL (8.4-10.5); TOTAL PROTEIN 5.5 g/dL (5.8-8.3)
--- NOTE | 2017-08-12 08:46 | CP.PCM.PN ---
Subjective - Date & Time of Evaluation Date of Evaluation: 08/12/17 Time of Evaluation: 08:44 - Subjective Subjective: Assessment: Sepsis with psuedomonas likely due to permacath related infection esophageal ulceration, gastroparesis Nausea/vomitting, diarrhoea ? related to above Diabetic chronic Kidney Disease (E11.22) Hypertensive Chronic Kidney Disease (I12.0) End stage renal disease (N18.6) dependence on hemodialysis (Z99.2) (TTS) Anemia (D64.9), Hyperphosphatemia (E83.39), Secondary Hyperparathyroidism (E21.1 ), HTN (I12.0) CAD s/p CABG chronic urine retention Plan: seen on HD, uf goal 3 kg, pt refusing to stay for full tx. Continue with Nephrovite 1 tab/day. Getting weekly aranesp Continue with hectorol with dialysis. BP control with meds as ordered. Patient on RAAS anjelica GI, ID following. antibiotics as per ID dose for ESRD on renagel 800 mg TID with meals for high phos S: Seen and examined, no acute events o/n. seen on dialysis. s/p removal of permacath and placement of temp cath. Physical Examination: General Appearance: comfortable, in no acute respiratory distress, co-operative . Vitals reviewed and noted as below Head; Atraumatic, normocephalic ENT: no ulcers no thrush. Tongue is midline. Oropharynx: no rash or ulcers. EYES: Pupils are equal, round and reactive to light accommodation. Eye muscles and extraocular movement intact. Sclera is anicteric. Neck; supple no lymphadenopathy, no thyromegaly or bruit Lungs: Normal respiratory rate/effort. Breath sounds bilateral equal and clear Heart: Normal rate. s1s2 normal. No rub or gallop. Extremities: no edema. No varicose veins Neurological: Patient is alert, awake and oriented to person, place and time. No focal deficit. Strength bilateral appropriate and equal Skin: Warm and dry. Normal turgor. No rash. Palpitation: Normal elasticity for age Abdomen: Abdomen is soft. Bowel sounds +. There is no abdominal tenderness, no guarding/rigidity or organomegaly Psych: limited insight has normal affect/mood MSK: no joint tenderness or swelling. Digits and nails normal, no deformity. had toe amputations : kidney or bladder not palpable. has chronic martinez Access: nontunnelled cath in L chest wall Labs/imaging reviewed. Objective - Vital Signs/Intake and Output Vital Signs (last 24 hours): Temp Pulse Resp BP Pulse Ox 97.7 F 72 20 155/75 H 96 08/12/17 00:00 08/12/17 00:00 08/12/17 00:00 08/12/17 00:00 08/12/17 00:00 Intake and Output: 08/12/17 08/12/17 06:59 18:59 Intake Total 360 Balance 360 - Medications Medications: Current Medications Acetaminophen (Tylenol 325mg Tab) 650 mg PO Q4H PRN PRN Reason: Temperature Last Admin: 08/10/17 12:12 Dose: 650 mg Amlodipine Besylate (Norvasc) 5 mg PO DAILY [facility] Last Admin: 08/11/17 09:30 Dose: 5 mg Aspirin (Ecotrin) 81 mg PO DAILY [facility] Last Admin: 08/11/17 09:30 Dose: 81 mg Atorvastatin Calcium (Lipitor) 40 mg PO DIN [facility] Last Admin: 08/11/17 19:22 Dose: 40 mg Heparin Sodium (Porcine) (Heparin) 5,000 units SC Q8 [facility] PRN Reason: Protocol Last Admin: 08/11/17 21:42 Dose: 5,000 units Heparin Sodium (Porcine) (Heparin) 1,100 units ICA ONCE ONE Stop: 08/12/17 09:01 Heparin Sodium (Porcine) (Heparin) 1,400 units ICV ONCE ONE Stop: 08/12/17 09:01 Hydralazine HCl (Apresoline) 10 mg IVP Q6H PRN PRN Reason: SBP > 160, DBP >100 Hydralazine HCl (Apresoline) 25 mg PO TID [facility] Last Admin: 08/11/17 19:21 Dose: 25 mg Meropenem 500 mg/ Sodium (Chloride) 100 mls @ 100 mls/hr IVPB Q24H [facility] PRN Reason: Protocol Last Admin: 08/12/17 00:00 Dose: 100 mls/hr Insulin Human Regular (Humulin R Med) 0 units SC ACHS [facility] PRN Reason: Protocol Last Admin: 08/11/17 22:38 Dose: Not Given Isosorbide Mononitrate (Imdur) 60 mg PO DAILY [facility] Last Admin: 08/11/17 09:30 Dose: 60 mg Losartan Potassium (Cozaar) 100 mg PO DAILY [facility] Last Admin: 08/11/17 09:30 Dose: 100 mg Metoprolol Tartrate (Lopressor) 25 mg PO BID [facility] Last Admin: 08/11/17 19:22 Dose: 25 mg Ondansetron HCl (Zofran Inj) 4 mg IVP Q4H PRN PRN Reason: Nausea/Vomiting Pantoprazole Sodium (Protonix Ec Tab) 40 mg PO DAILY [facility] Last Admin: 08/11/17 09:31 Dose: 40 mg Pregabalin (Lyrica) 75 mg PO BID [facility] Last Admin: 08/11/17 19:23 Dose: 75 mg Sevelamer HCl (Renagel) 800 mg PO TID [facility] Last Admin: 08/11/17 19:23 Dose: 800 mg Tamsulosin HCl (Flomax) 0.4 mg PO DAILY [facility] Last Admin: 08/11/17 09:30 Dose: 0.4 mg Vancomycin HCl (Vancocin 25 Mg/Ml (Oral Use)) 250 mg PO Q6 [facility] PRN Reason: Protocol Last Admin: 08/11/17 23:54 Dose: 250 mg Vitamin B Complex/Vit C/Folic Acid (Nephro-Eleni) 1 tab PO 0800 [facility] Last Admin: 08/11/17 09:30 Dose: 1 tab Zolpidem Tartrate (Ambien) 10 mg PO HS PRN; Protocol PRN Reason: Insomnia Last Admin: 08/11/17 21:42 Dose: 10 mg - Labs Labs: 08/12/17 06:20 08/12/17 06:20 PT 13.4 SECONDS (9.4-12.5) H 08/06/17 14:32 INR 1.22 (0.93-1.08) H 08/06/17 14:32 APTT 33.5 Seconds (25.1-36.5) 08/06/17 14:32
[2017-08-12 08:47] LABS: MAGNESIUM 1.9 mg/dL (1.7-2.2)
--- NOTE | 2017-08-12 10:15 | CP.PCM.PN ---
<Kayleigh Martinez - Last Filed: 08/12/17 10:46> Subjective - Date & Time of Evaluation Date of Evaluation: 08/12/17 Time of Evaluation: 09:23 - Subjective Subjective: Patient seen and examined in Dialysis unit. Patient has new, temporary HD catheter device insert in a different site. Patient denied having any fever, chills, rigors during dialysis. Patient denies passing a BM in the interim. Objective - Vital Signs/Intake and Output Vital Signs (last 24 hours): Temp Pulse Resp BP Pulse Ox 97.7 F 71 20 169/82 H 95 08/12/17 09:24 08/12/17 09:24 08/12/17 09:24 08/12/17 09:24 08/12/17 09:24 Intake and Output: 08/12/17 08/12/17 06:59 18:59 Intake Total 360 Balance 360 - Medications Medications: Current Medications Acetaminophen (Tylenol 325mg Tab) 650 mg PO Q4H PRN PRN Reason: Temperature Last Admin: 08/10/17 12:12 Dose: 650 mg Amlodipine Besylate (Norvasc) 5 mg PO DAILY [facility] Last Admin: 08/11/17 09:30 Dose: 5 mg Aspirin (Ecotrin) 81 mg PO DAILY [facility] Last Admin: 08/11/17 09:30 Dose: 81 mg Atorvastatin Calcium (Lipitor) 40 mg PO DIN [facility] Last Admin: 08/11/17 19:22 Dose: 40 mg Heparin Sodium (Porcine) (Heparin) 5,000 units SC Q8 [facility] PRN Reason: Protocol Last Admin: 08/11/17 21:42 Dose: 5,000 units Hydralazine HCl (Apresoline) 10 mg IVP Q6H PRN PRN Reason: SBP > 160, DBP >100 Hydralazine HCl (Apresoline) 25 mg PO TID [facility] Last Admin: 08/12/17 09:03 Dose: Not Given Meropenem 500 mg/ Sodium (Chloride) 100 mls @ 100 mls/hr IVPB Q24H [facility] PRN Reason: Protocol Last Admin: 08/12/17 00:00 Dose: 100 mls/hr Insulin Human Regular (Humulin R Med) 0 units SC ACHS [facility] PRN Reason: Protocol Last Admin: 08/11/17 22:38 Dose: Not Given Isosorbide Mononitrate (Imdur) 60 mg PO DAILY [facility] Last Admin: 08/11/17 09:30 Dose: 60 mg Losartan Potassium (Cozaar) 100 mg PO DAILY [facility] Last Admin: 08/11/17 09:30 Dose: 100 mg Metoprolol Tartrate (Lopressor) 25 mg PO BID [facility] Last Admin: 08/11/17 19:22 Dose: 25 mg Ondansetron HCl (Zofran Inj) 4 mg IVP Q4H PRN PRN Reason: Nausea/Vomiting Pantoprazole Sodium (Protonix Ec Tab) 40 mg PO DAILY [facility] Last Admin: 08/11/17 09:31 Dose: 40 mg Pregabalin (Lyrica) 75 mg PO BID [facility] Last Admin: 08/11/17 19:23 Dose: 75 mg Sevelamer HCl (Renagel) 800 mg PO TID [facility] Last Admin: 08/11/17 19:23 Dose: 800 mg Tamsulosin HCl (Flomax) 0.4 mg PO DAILY [facility] Last Admin: 08/11/17 09:30 Dose: 0.4 mg Vancomycin HCl (Vancocin 25 Mg/Ml (Oral Use)) 250 mg PO Q6 [facility] PRN Reason: Protocol Last Admin: 08/11/17 23:54 Dose: 250 mg Vitamin B Complex/Vit C/Folic Acid (Nephro-Eleni) 1 tab PO 0800 [facility] Last Admin: 08/11/17 09:30 Dose: 1 tab Zolpidem Tartrate (Ambien) 10 mg PO HS PRN; Protocol PRN Reason: Insomnia Last Admin: 08/11/17 21:42 Dose: 10 mg - Labs Labs: 08/12/17 06:20 08/12/17 06:20 PT 13.4 SECONDS (9.4-12.5) H 08/06/17 14:32 INR 1.22 (0.93-1.08) H 08/06/17 14:32 APTT 33.5 Seconds (25.1-36.5) 08/06/17 14:32 - Constitutional Appears: Well, Non-toxic, Chronically Ill - Head Exam Head Exam: ATRAUMATIC, NORMOCEPHALIC - Eye Exam Eye Exam: EOMI, Normal appearance - ENT Exam ENT Exam: Mucous Membranes Moist, Normal Oropharynx - Neck Exam Neck Exam: Normal Inspection - Respiratory Exam Respiratory Exam: Clear to Ausculation Bilateral, NORMAL BREATHING PATTERN - Cardiovascular Exam Cardiovascular Exam: RRR, +S1, +S2 - GI/Abdominal Exam GI & Abdominal Exam: Soft. absent: Tenderness, Rebound - Extremities Exam Extremities Exam: absent: Calf Tenderness, Pedal Edema - Back Exam Back Exam: absent: rash noted - Neurological Exam Neurological Exam: Alert, Awake, CN II-XII Intact, Oriented x3 - Psychiatric Exam Psychiatric exam: Normal Affect, Normal Mood - Skin Skin Exam: Intact, Normal Color, Warm. absent: Petechiae Assessment and Plan - Assessment and Plan (Free Text) Assessment: 56 year old male with a past medical history of ESRD (HD TTS), CAD, DM II, CVA, hypertension, dyslipidemia, recently treated for a gram negative bactermia who presented with 2.5 days of brisk, jet black diarrhea, vomiting, decreased PO intake and feelings of generalized malaise. The patient's stool came back postive for C. difficile antigen (+) and negative for toxin and was started on PO Vancomycin for recurrence of C. difficile. On day 2 of his hospitalization the patient underwent dialysis and developed a high-fever, chills, and rigors after dialysis. Blood cultures were positive for Pseudomonas aeruginosa. Patient 's HD catheter was removed and a new, temporary catheter has been inserted. Repeat blood cultures have been ordered. Plan: Plan: 1) Pseudomonas bacteremia likely secondary to infected HD catheter - RIJ HD catheter removed and new, temporary HD catheter has been inserted. - Tylenol 650 mg q6h PRN fever greater than 100.4 F - Infectious disease consulted, Dr. Cohn, appreciate recommendations and the close follow up. - Meropenem 500 mg q24h to be continued for 14 days from the day blood cultures have come back negative. - Repeat blood cultures ordered today. - CT chest without contrast reads as interval resolution of bilateral septic emboli with small residual areas of scarring greatest in the upper lobes; new 5 mm superior segment right lower lobe nodule difficult to characterize; no focal pneumonia. - CT of abdomen and pelvis without contrast shows no acute findings. 2) C. difficile associated diarrhea - Vancomycin 250 mg q6h PO every day for ten total days so 08/09-08/19. 3) CAD - Aspirin 81 - Atorvastatin 40 - Isosorbide Mononitrate 60. 4) ESRD - Dr. Garrett consulted - Continue with Nephrovite - Sevelamer 800 mg TID - Dialysis per nephrology recommendations. 5) Hypertension - Hydralazine 10 mg IVP for SBP >160 or DBP >100 - Hydralazine 25 mg TID - Metoprolol 25 mg BID - Losartan 100 mg PO daily - Amlodipine 10 mg PO daily - Cardiology recommendations appreciated 6) DM II with peripheral neuropathy - ISS medium - Pregabalin 75 mg BID daily 7) Urinary retention - Contact precautions - Patient has Macias - Tamsulosin 0.4 mg PO daily 8) DVT/GI prophylaxis/prevention of healthcare-related illness - Heparin 5,000 units SC q8h - Protonix 40 mg IVP Daily - Contact precautions <Corey Moore - Last Filed: 08/12/17 17:35> Objective - Vital Signs/Intake and Output Vital Signs (last 24 hours): Temp Pulse Resp BP Pulse Ox 97.7 F 73 20 145/87 95 08/12/17 09:24 08/12/17 17:18 08/12/17 09:24 08/12/17 17:18 08/12/17 09:24 Intake and Output: 08/12/17 08/12/17 06:59 18:59 Intake Total 360 960 Output Total 800 Balance 360 160 - Medications Medications: Current Medications Acetaminophen (Tylenol 325mg Tab) 650 mg PO Q4H PRN PRN Reason: Temperature Last Admin: 08/10/17 12:12 Dose: 650 mg Amlodipine Besylate (Norvasc) 5 mg PO DAILY [facility] Last Admin: 08/12/17 10:25 Dose: 5 mg Aspirin (Ecotrin) 81 mg PO DAILY [facility] Last Admin: 08/12/17 10:27 Dose: 81 mg Atorvastatin Calcium (Lipitor) 40 mg PO DIN [facility] Last Admin: 08/12/17 17:21 Dose: 40 mg Heparin Sodium (Porcine) (Heparin) 5,000 units SC Q8 [facility] PRN Reason: Protocol Last Admin: 08/12/17 17:11 Dose: 5,000 units Hydralazine HCl (Apresoline) 10 mg IVP Q6H PRN PRN Reason: SBP > 160, DBP >100 Hydralazine HCl (Apresoline) 25 mg PO TID [facility] Last Admin: 08/12/17 17:17 Dose: 25 mg Meropenem 500 mg/ Sodium (Chloride) 100 mls @ 100 mls/hr IVPB Q24H [facility] PRN Reason: Protocol Last Admin: 08/12/17 00:00 Dose: 100 mls/hr Insulin Human Regular (Humulin R Med) 0 units SC ACHS [facility] PRN Reason: Protocol Last Admin: 08/12/17 17:18 Dose: 7 units Isosorbide Mononitrate (Imdur) 60 mg PO DAILY [facility] Last Admin: 08/12/17 10:25 Dose: 60 mg Losartan Potassium (Cozaar) 100 mg PO DAILY [facility] Last Admin: 08/12/17 10:25 Dose: 100 mg Metoprolol Tartrate (Lopressor) 25 mg PO BID [facility] Last Admin: 08/12/17 17:18 Dose: 25 mg Ondansetron HCl (Zofran Inj) 4 mg IVP Q4H PRN PRN Reason: Nausea/Vomiting Pantoprazole Sodium (Protonix Ec Tab) 40 mg PO DAILY [facility] Last Admin: 08/12/17 10:26 Dose: 40 mg Pregabalin (Lyrica) 75 mg PO BID [facility] Last Admin: 08/12/17 10:25 Dose: 75 mg Sevelamer HCl (Renagel) 800 mg PO TID [facility] Last Admin: 08/12/17 17:23 Dose: 800 mg Tamsulosin HCl (Flomax) 0.4 mg PO DAILY [facility] Last Admin: 08/12/17 10:26 Dose: 0.4 mg Vancomycin HCl (Vancocin 25 Mg/Ml (Oral Use)) 250 mg PO Q6 [facility] PRN Reason: Protocol Last Admin: 08/12/17 17:17 Dose: 250 mg Vitamin B Complex/Vit C/Folic Acid (Nephro-Eleni) 1 tab PO 0800 [facility] Last Admin: 08/12/17 10:27 Dose: 1 tab Zolpidem Tartrate (Ambien) 10 mg PO HS PRN; Protocol PRN Reason: Insomnia Last Admin: 08/11/17 21:42 Dose: 10 mg - Labs Labs: 08/12/17 06:20 08/12/17 06:20 PT 13.4 SECONDS (9.4-12.5) H 08/06/17 14:32 INR 1.22 (0.93-1.08) H 08/06/17 14:32 APTT 33.5 Seconds (25.1-36.5) 08/06/17 14:32 Attending/Attestation - Attestation I have personally seen and examined this patient.: Yes I have fully participated in the care of the patient.: Yes I have reviewed all pertinent clinical information, including history, physical exam and plan: Yes Notes (Text): 08/12/17 17:34 Patient was seen and examined with medical device sales consultant. Agreed with resident assessment and plan. 56 year old male with a past medical history of ESRD (HD TTS), CAD, DM II, CVA, hypertension, dyslipidemia, with sepsis due to Pseudomonas bactermia , on IV Meropenem as per ID.Etiology is likely due to line sepsis.Dialysis catheter was removed yesterday.Patient is afebrile.We will repeat patient blood cultures. We will also get 2D Echo to rule out endocarditis. Management plan was discussed in detail with patient Education was provided.
[2017-08-12] MEDS: Pantoprazole 40 mg EC Tab PO SCH (10:26)
[2017-08-12] MEDS: Multivitamin Vitamin B Complex (Nephro-Vite) Tab PO SCH (10:27)
[2017-08-12] MEDS: Insulin Reg-MEDIUM-Coverage SC SCH ×5 (10:28→21:27)
[2017-08-12] MEDS: Vancomycin 25 MG/ML PO SCH ×4 (12:36→23:34)
--- NOTE | 2017-08-12 17:15 | CP.PCM.PN ---
Subjective - Date & Time of Evaluation Date of Evaluation: 08/12/17 Time of Evaluation: 16:30 - Subjective Subjective: Infectious Disease Follow Up: August 12, 2017 56 yo male known to me in the distant past presenting with fevers and body chills after dialysis today. His initial presentation was for jet black, brisk diarrhea and concurrent vomiting. The patient apparently completed a treatment for Pseudomonas about a week before admission. Patient is leukopenic and neutropenic at this time. Patient does not know what antibiotic he received in the outpatient setting. Still had a fever tonight. On Vancomycin and Meropenem for treatment at this time. Fever up to 101.2 F over two days ago. Afebrile the past 48 hours. Identification of gram negative rods done. Patient needs change of all indwelling lines. Cultures showing Pseudomonas that was highly sensitive. Objective - Vital Signs/Intake and Output Vital Signs (last 24 hours): Temp Pulse Resp BP Pulse Ox 97.7 F 78 20 167/87 H 95 08/12/17 09:24 08/12/17 14:09 08/12/17 09:24 08/12/17 14:09 08/12/17 09:24 Intake and Output: 08/12/17 08/12/17 06:59 18:59 Intake Total 360 960 Output Total 800 Balance 360 160 - Medications Medications: Current Medications Acetaminophen (Tylenol 325mg Tab) 650 mg PO Q4H PRN PRN Reason: Temperature Last Admin: 08/10/17 12:12 Dose: 650 mg Amlodipine Besylate (Norvasc) 5 mg PO DAILY [facility] Last Admin: 08/12/17 10:25 Dose: 5 mg Aspirin (Ecotrin) 81 mg PO DAILY [facility] Last Admin: 08/12/17 10:27 Dose: 81 mg Atorvastatin Calcium (Lipitor) 40 mg PO DIN [facility] Last Admin: 08/11/17 19:22 Dose: 40 mg Heparin Sodium (Porcine) (Heparin) 5,000 units SC Q8 [facility] PRN Reason: Protocol Last Admin: 08/12/17 14:09 Dose: 5,000 units Hydralazine HCl (Apresoline) 10 mg IVP Q6H PRN PRN Reason: SBP > 160, DBP >100 Hydralazine HCl (Apresoline) 25 mg PO TID [facility] Last Admin: 08/12/17 14:09 Dose: 25 mg Meropenem 500 mg/ Sodium (Chloride) 100 mls @ 100 mls/hr IVPB Q24H [facility] PRN Reason: Protocol Last Admin: 08/12/17 00:00 Dose: 100 mls/hr Insulin Human Regular (Humulin R Med) 0 units SC ACHS [facility] PRN Reason: Protocol Last Admin: 08/12/17 12:40 Dose: 7 units Isosorbide Mononitrate (Imdur) 60 mg PO DAILY [facility] Last Admin: 08/12/17 10:25 Dose: 60 mg Losartan Potassium (Cozaar) 100 mg PO DAILY [facility] Last Admin: 08/12/17 10:25 Dose: 100 mg Metoprolol Tartrate (Lopressor) 25 mg PO BID [facility] Last Admin: 08/12/17 10:26 Dose: 25 mg Ondansetron HCl (Zofran Inj) 4 mg IVP Q4H PRN PRN Reason: Nausea/Vomiting Pantoprazole Sodium (Protonix Ec Tab) 40 mg PO DAILY [facility] Last Admin: 08/12/17 10:26 Dose: 40 mg Pregabalin (Lyrica) 75 mg PO BID [facility] Last Admin: 08/12/17 10:25 Dose: 75 mg Sevelamer HCl (Renagel) 800 mg PO TID [facility] Last Admin: 08/12/17 14:10 Dose: 800 mg Tamsulosin HCl (Flomax) 0.4 mg PO DAILY [facility] Last Admin: 08/12/17 10:26 Dose: 0.4 mg Vancomycin HCl (Vancocin 25 Mg/Ml (Oral Use)) 250 mg PO Q6 [facility] PRN Reason: Protocol Last Admin: 08/12/17 13:58 Dose: 250 mg Vitamin B Complex/Vit C/Folic Acid (Nephro-Eleni) 1 tab PO 0800 [facility] Last Admin: 08/12/17 10:27 Dose: 1 tab Zolpidem Tartrate (Ambien) 10 mg PO HS PRN; Protocol PRN Reason: Insomnia Last Admin: 08/11/17 21:42 Dose: 10 mg - Labs Labs: 08/12/17 06:20 08/12/17 06:20 PT 13.4 SECONDS (9.4-12.5) H 08/06/17 14:32 INR 1.22 (0.93-1.08) H 08/06/17 14:32 APTT 33.5 Seconds (25.1-36.5) 08/06/17 14:32 - Constitutional Appears: Non-toxic, No Acute Distress, Chronically Ill - Head Exam Head Exam: ATRAUMATIC, NORMOCEPHALIC - Eye Exam Eye Exam: EOMI, PERRL Pupil Exam: NORMAL ACCOMODATION, PERRL - ENT Exam ENT Exam: Mucous Membranes Moist, Normal External Ear Exam, TM's Normal Bilaterally - Neck Exam Neck Exam: Full ROM, Normal Inspection - Respiratory Exam Respiratory Exam: Clear to Ausculation Bilateral, NORMAL BREATHING PATTERN. absent: Rales, Rhonchi, Wheezes - Cardiovascular Exam Cardiovascular Exam: REGULAR RHYTHM, RRR, +S1, +S2 - GI/Abdominal Exam GI & Abdominal Exam: Soft, Normal Bowel Sounds. absent: Distended, Tenderness - Extremities Exam Additional comments: right forefoot amputation - Neurological Exam Neurological Exam: Alert, Awake, CN II-XII Intact, Oriented x3 - Psychiatric Exam Psychiatric exam: Normal Affect, Normal Mood - Skin Skin Exam: Dry, Intact Assessment and Plan - Assessment and Plan (Free Text) Assessment: 56 yo male with initial presentation of diarrhea, vomiting, and abdominal pain. The patient developed fevers and leukopenia today. Damon cultures sent. Vancomycin and Meropenem started. Will give a dose of aminoglycoside. Procalcitonin severely elevated at 59. Lactic acid increasing to 2.8. WBC recovered from 1.3 back to 9.0. Check influenza titers as well. The patient may need neutropenic precautions. Supportive care. Gram negative rods seen in the blood cultures. Patient with gram negative bacteremia and likely septicemia. Patient with medical history of ESRD on HD, CAD, HTN, and DM. Remains on Meropenem and PO Vancomycin. Last C. Diff partially positive. Would retest C. Diff. The patient with Pseudomonas in cultures. Permacath removed and placement of a temporary dialysis catheter done. Needs 14 days of IV antibiotics. Repeat cultures. Thank you for allowing me to participate in the care of the patient, we will follow with you.
--- NOTE | 2017-08-12 20:11 | PN ---
DATE: 08/12/2017 LOCATION: Patient in room 560, bed 1. REASON FOR CONSULTATION AND FOLLOWUP: Coronary artery disease, fevers, chills, gram-negative rods on blood cultures, sepsis, episode of diarrhea and vomiting, history of coronary artery bypass surgery. SUBJECTIVE: Patient went for dialysis this morning. He denies any chest pain, shortness of breath, or palpitation. PHYSICAL EXAMINATION VITAL SIGNS: Blood pressure 169/82, respirations 20, pulse 71, temperature 97.7. HEENT: Head is normocephalic. Eyes; pupils are normal. Conjunctivae normal. Nose and throat normal. NECK: JVP low. Carotid equal. THORAX: AP diameter normal. LUNGS: Clear. CARDIOVASCULAR: S1, S2. ABDOMEN: Soft, no tenderness, no organomegaly. EXTREMITIES: No clubbing, no cyanosis. LABORATORY DATA: WBC 5.4, hemoglobin 11.2, hematocrit 33.8, platelets 163. Sodium 133, potassium 3.7, BUN 47, creatinine 7.1, random sugar 310. AST and ALT normal. Total protein 5.5. Albumin 2.9. DIAGNOSES: Gram-negative rods, on blood cultures, sepsis, history of coffee-ground material vomiting with black stools, history of coronary artery disease, status post coronary bypass surgery, history of renal failure, on dialysis. 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 PLAN: Patient's catheter for dialysis has been removed because of possible ____ sepsis and new catheter for dialysis has been inserted. Patient on hydralazine 25 t.i.d., losartan 100 mg daily, aspirin 81 mg daily, heparin 5000 units subQ q 8 hours, ____ daily, atorvastatin 40 daily, metoprolol 25 b.i.d., Lyrica 75 mg b.i.d., Renagel 800 t.i.d., vancomycin 250 q. 6 hours, Merrem IV 500 mg q 24 hours, being followed by Nephrology and Infectious Disease. We will continue present therapy. Clinically, cardiac status stable. We will follow. Corey Shine MD [facility] # [id number]
[2017-08-12] MEDS: Meropenem 500 MG in Sodium Chloride 0.9% 100 ML IVPB SCH ×2 (23:33)
[2017-08-13] MEDS: Vancomycin 25 MG/ML PO SCH ×5 (05:30→23:14)
--- NOTE | 2017-08-13 07:36 | CP.PCM.PN ---
Subjective - Date & Time of Evaluation Date of Evaluation: 08/13/17 Time of Evaluation: 07:35 - Subjective Subjective: Assessment: Sepsis with psuedomonas likely due to permacath related infection esophageal ulceration, gastroparesis Nausea/vomitting, diarrhea related to above Diabetic chronic Kidney Disease (E11.22) Hypertensive Chronic Kidney Disease (I12.0) End stage renal disease (N18.6) dependence on hemodialysis (Z99.2) (TTS) Anemia (D64.9), Hyperphosphatemia (E83.39), Secondary Hyperparathyroidism (E21.1 ), HTN (I12.0) CAD s/p CABG chronic urine retention Plan: Next HD Monday s/p new nontunneled cath Continue with Nephrovite 1 tab/day. Getting weekly aranesp Continue with hectorol with dialysis. BP stable F/u ID continue renagel S: Seen and examined, no complains Physical Examination: General Appearance: comfortable, in no acute respiratory distress, co-operative . Vitals reviewed and noted as below Head; Atraumatic, normocephalic ENT: no ulcers no thrush. Tongue is midline. Oropharynx: no rash or ulcers. EYES: Pupils are equal, round and reactive to light accommodation. Eye muscles and extraocular movement intact. Sclera is anicteric. Neck; supple no lymphadenopathy, no thyromegaly or bruit Lungs: Normal respiratory rate/effort. Breath sounds bilateral equal and clear Heart: Normal rate. s1s2 normal. No rub or gallop. Extremities: no edema. No varicose veins Neurological: Patient is alert, awake and oriented to person, place and time. No focal deficit. Strength bilateral appropriate and equal Skin: Warm and dry. Normal turgor. No rash. Palpitation: Normal elasticity for age Abdomen: Abdomen is soft. Bowel sounds +. There is no abdominal tenderness, no guarding/rigidity or organomegaly Psych: limited insight has normal affect/mood MSK: no joint tenderness or swelling. Digits and nails normal, no deformity. had toe amputations : kidney or bladder not palpable. has chronic martinez Access: nontunnelled cath in L chest wall Labs/imaging reviewed. Objective - Vital Signs/Intake and Output Vital Signs (last 24 hours): Temp Pulse Resp BP Pulse Ox 98.8 F 77 20 180/95 H 96 08/13/17 00:00 08/13/17 06:09 08/13/17 00:00 08/13/17 06:09 08/13/17 00:00 Intake and Output: 08/13/17 08/13/17 06:59 18:59 Intake Total 1140 Output Total 1100 Balance 40 - Medications Medications: Current Medications Acetaminophen (Tylenol 325mg Tab) 650 mg PO Q4H PRN PRN Reason: Temperature Last Admin: 08/10/17 12:12 Dose: 650 mg Amlodipine Besylate (Norvasc) 5 mg PO DAILY [facility] Last Admin: 08/12/17 10:25 Dose: 5 mg Aspirin (Ecotrin) 81 mg PO DAILY [facility] Last Admin: 08/12/17 10:27 Dose: 81 mg Atorvastatin Calcium (Lipitor) 40 mg PO DIN [facility] Last Admin: 08/12/17 17:21 Dose: 40 mg Heparin Sodium (Porcine) (Heparin) 5,000 units SC Q8 [facility] PRN Reason: Protocol Last Admin: 08/13/17 05:30 Dose: 5,000 units Hydralazine HCl (Apresoline) 10 mg IVP Q6H PRN PRN Reason: SBP > 160, DBP >100 Last Admin: 08/13/17 06:09 Dose: 10 mg Hydralazine HCl (Apresoline) 25 mg PO TID [facility] Last Admin: 08/12/17 17:17 Dose: 25 mg Meropenem 500 mg/ Sodium (Chloride) 100 mls @ 100 mls/hr IVPB Q24H [facility] PRN Reason: Protocol Last Admin: 08/12/17 23:33 Dose: 100 mls/hr Insulin Human Regular (Humulin R Med) 0 units SC ACHS [facility] PRN Reason: Protocol Last Admin: 08/12/17 21:27 Dose: Not Given Isosorbide Mononitrate (Imdur) 60 mg PO DAILY [facility] Last Admin: 08/12/17 10:25 Dose: 60 mg Losartan Potassium (Cozaar) 100 mg PO DAILY [facility] Last Admin: 08/12/17 10:25 Dose: 100 mg Metoprolol Tartrate (Lopressor) 25 mg PO BID [facility] Last Admin: 08/12/17 17:18 Dose: 25 mg Ondansetron HCl (Zofran Inj) 4 mg IVP Q4H PRN PRN Reason: Nausea/Vomiting Pantoprazole Sodium (Protonix Ec Tab) 40 mg PO DAILY [facility] Last Admin: 08/12/17 10:26 Dose: 40 mg Pregabalin (Lyrica) 75 mg PO BID [facility] Last Admin: 08/12/17 10:25 Dose: 75 mg Sevelamer HCl (Renagel) 800 mg PO TID [facility] Last Admin: 08/12/17 17:23 Dose: 800 mg Tamsulosin HCl (Flomax) 0.4 mg PO DAILY [facility] Last Admin: 08/12/17 10:26 Dose: 0.4 mg Vancomycin HCl (Vancocin 25 Mg/Ml (Oral Use)) 250 mg PO Q6 [facility] PRN Reason: Protocol Last Admin: 08/13/17 05:30 Dose: 250 mg Vitamin B Complex/Vit C/Folic Acid (Nephro-Eleni) 1 tab PO 0800 [facility] Last Admin: 08/12/17 10:27 Dose: 1 tab Zolpidem Tartrate (Ambien) 10 mg PO HS PRN; Protocol PRN Reason: Insomnia Last Admin: 08/12/17 21:17 Dose: 10 mg - Labs Labs: 08/12/17 06:20 08/12/17 06:20 PT 13.4 SECONDS (9.4-12.5) H 08/06/17 14:32 INR 1.22 (0.93-1.08) H 08/06/17 14:32 APTT 33.5 Seconds (25.1-36.5) 08/06/17 14:32
[2017-08-13 08:31] LABS: HEMATOCRIT 36.3 % (42.0-52.0); MEAN CELL VOLUME 86.8 fl (80.0-105.0); MEAN CORPUSCULAR HEMOGLOBIN 28.2 pg (25.0-35.0); MEAN CORPUSCULAR HGB CONC 32.5 g/dl (31.0-37.0); MEAN PLATELET VOLUME 10.7 fl (7.0-11.0); RED CELL DISTRIBUTION WIDTH 16.2 % (11.5-14.5); WHITE BLOOD COUNT 5.6 10^3/ul (4.5-11.0)
[2017-08-13 09:00] LABS: ALB/GLOB RATIO 1.2 (1.1-1.8); BILIRUBIN,TOTAL 0.5 mg/dL (0.2-1.3); CALCIUM 9.1 mg/dL (8.4-10.5); POTASSIUM 4.2 mmol/L (3.6-5.0); TOTAL PROTEIN 6.2 g/dL (5.8-8.3)
[2017-08-13] MEDS: Multivitamin Vitamin B Complex (Nephro-Vite) Tab PO SCH (09:24)
[2017-08-13] MEDS: Pantoprazole 40 mg EC Tab PO SCH (09:25)
[2017-08-13] MEDS: Insulin Reg-MEDIUM-Coverage SC SCH ×4 (09:27→21:52)
--- NOTE | 2017-08-13 10:29 | CP.PCM.PN ---
<Emanuel Covarrubias - Last Filed: 08/13/17 18:53> Subjective - Date & Time of Evaluation Date of Evaluation: 08/13/17 Time of Evaluation: 06:26 - Subjective Subjective: Patient seen and examined at bedside. Per nursing no acute events occurred overnight. The patient denies any episodes of diarrhea today. The patient denies any chest pain, lightheadedness, dizziness, fevers, chills, nausea, vomiting, syncopal episodes, or any other complaints. Objective - Vital Signs/Intake and Output Vital Signs (last 24 hours): Temp Pulse Resp BP Pulse Ox 98.5 F 77 20 180/95 H 98 08/13/17 09:10 08/13/17 09:33 08/13/17 09:10 08/13/17 09:33 08/13/17 09:10 Intake and Output: 08/13/17 08/13/17 06:59 18:59 Intake Total 1140 Output Total 1100 Balance 40 - Medications Medications: Current Medications Acetaminophen (Tylenol 325mg Tab) 650 mg PO Q4H PRN PRN Reason: Temperature Last Admin: 08/10/17 12:12 Dose: 650 mg Amlodipine Besylate (Norvasc) 5 mg PO DAILY [facility] Last Admin: 08/13/17 09:24 Dose: 5 mg Aspirin (Ecotrin) 81 mg PO DAILY [facility] Last Admin: 08/13/17 09:30 Dose: 81 mg Atorvastatin Calcium (Lipitor) 40 mg PO DIN [facility] Last Admin: 08/12/17 17:21 Dose: 40 mg Heparin Sodium (Porcine) (Heparin) 5,000 units SC Q8 MARYANN PRN Reason: Protocol Last Admin: 08/13/17 09:26 Dose: 5,000 units Hydralazine HCl (Apresoline) 10 mg IVP Q6H PRN PRN Reason: SBP > 160, DBP >100 Last Admin: 08/13/17 06:09 Dose: 10 mg Hydralazine HCl (Apresoline) 25 mg PO TID [facility] Last Admin: 08/13/17 09:25 Dose: 25 mg Meropenem 500 mg/ Sodium (Chloride) 100 mls @ 100 mls/hr IVPB Q24H MARYANN PRN Reason: Protocol Last Admin: 08/12/17 23:33 Dose: 100 mls/hr Insulin Human Regular (Humulin R Med) 0 units SC ACHS [facility] PRN Reason: Protocol Last Admin: 08/13/17 09:27 Dose: 5 units Isosorbide Mononitrate (Imdur) 60 mg PO DAILY [facility] Last Admin: 08/13/17 09:25 Dose: 60 mg Losartan Potassium (Cozaar) 100 mg PO DAILY [facility] Last Admin: 08/13/17 09:25 Dose: 100 mg Metoprolol Tartrate (Lopressor) 25 mg PO BID [facility] Last Admin: 08/13/17 09:33 Dose: 25 mg Ondansetron HCl (Zofran Inj) 4 mg IVP Q4H PRN PRN Reason: Nausea/Vomiting Pantoprazole Sodium (Protonix Ec Tab) 40 mg PO DAILY [facility] Last Admin: 08/13/17 09:25 Dose: 40 mg Pregabalin (Lyrica) 75 mg PO BID [facility] Last Admin: 08/13/17 09:34 Dose: 75 mg Sevelamer HCl (Renagel) 800 mg PO TID [facility] Last Admin: 08/13/17 09:23 Dose: 800 mg Tamsulosin HCl (Flomax) 0.4 mg PO DAILY [facility] Last Admin: 08/13/17 09:24 Dose: 0.4 mg Vancomycin HCl (Vancocin 25 Mg/Ml (Oral Use)) 250 mg PO Q6 [facility] PRN Reason: Protocol Last Admin: 08/13/17 05:30 Dose: 250 mg Vitamin B Complex/Vit C/Folic Acid (Nephro-Eleni) 1 tab PO 0800 [facility] Last Admin: 08/13/17 09:24 Dose: 1 tab Zolpidem Tartrate (Ambien) 10 mg PO HS PRN; Protocol PRN Reason: Insomnia Last Admin: 08/12/17 21:17 Dose: 10 mg - Labs Labs: 08/13/17 08:00 08/13/17 08:00 PT 13.4 SECONDS (9.4-12.5) H 08/06/17 14:32 INR 1.22 (0.93-1.08) H 08/06/17 14:32 APTT 33.5 Seconds (25.1-36.5) 08/06/17 14:32 - Head Exam Head Exam: ATRAUMATIC, NORMAL INSPECTION, NORMOCEPHALIC - Eye Exam Eye Exam: EOMI, Normal appearance, PERRL. absent: Periorbital tenderness Pupil Exam: NORMAL ACCOMODATION, PERRL. absent: Irregular, Unequal - ENT Exam ENT Exam: Mucous Membranes Moist, Normal Oropharynx - Neck Exam Neck Exam: Normal Inspection. absent: Lymphadenopathy, Thyromegaly - Respiratory Exam Respiratory Exam: Clear to Ausculation Bilateral, NORMAL BREATHING PATTERN. absent: Chest Wall Tenderness, Prolonged Expiratory Phase, Respiratory Distress - Cardiovascular Exam Cardiovascular Exam: REGULAR RHYTHM, RRR, +S1, +S2. absent: Gallop, Rubs - GI/Abdominal Exam GI & Abdominal Exam: Soft, Normal Bowel Sounds. absent: Tenderness, Hyperactive Bowel Sounds - Back Exam Back Exam: NORMAL INSPECTION. absent: CVA tenderness (L), CVA tenderness (R), paraspinal tenderness - Neurological Exam Neurological Exam: Alert, Awake, Normal Gait, Oriented x3 - Psychiatric Exam Psychiatric exam: Normal Affect, Normal Mood - Skin Skin Exam: Dry, Intact, Normal Color Assessment and Plan - Assessment and Plan (Free Text) Assessment: 56 year old male with a past medical history of ESRD (HD TTS), CAD, DM II, CVA, hypertension, dyslipidemia, recently treated for a gram negative bactermia who presented with 2.5 days of brisk, jet black diarrhea, vomiting, decreased PO intake and feelings of generalized malaise. The patient's stool came back postive for C. difficile antigen (+) and negative for toxin and was started on PO Vancomycin for recurrence of C. difficile. On day 2 of his hospitalization the patient underwent dialysis and developed a high-fever, chills, and rigors after dialysis. Blood cultures were positive for Pseudomonas aeruginosa. Patient 's HD catheter was removed and a new, temporary catheter has been inserted. Repeat blood cultures have been ordered. Plan: 1) Pseudomonas bacteremia likely secondary to infected HD catheter - RIJ HD catheter removed and new, temporary HD catheter has been inserted. - Tylenol 650 mg q6h PRN fever greater than 100.4 F - Infectious disease consulted, Dr. Cohn, appreciate recommendations and the close follow up. - Meropenem 500 mg q24h to be continued for 14 days from the day blood cultures have come back negative. - Repeat blood cultures ordered yesterday still pending. Will follow up with results. - CT chest without contrast reads as interval resolution of bilateral septic emboli with small residual areas of scarring greatest in the upper lobes; new 5 mm superior segment right lower lobe nodule difficult to characterize; no focal pneumonia. - CT of abdomen and pelvis without contrast shows no acute findings. 2) C. difficile associated diarrhea - Vancomycin 250 mg q6h PO every day for ten total days so 08/09-08/19. -ID reccomendations appreciated. 3) CAD - Continue Aspirin 81 - Continue Atorvastatin 40 - Continue Isosorbide Mononitrate 60. 4) ESRD - Dr. Garrett consulted. Recommendations appreciated. - Continue with Nephrovite - Sevelamer 800 mg TID - Dialysis per nephrology recommendations. 5) Hypertension - Hydralazine 10 mg IVP for SBP >160 or DBP >100 - Hydralazine 25 mg TID - Metoprolol 25 mg BID - Losartan 100 mg PO daily - Amlodipine 10 mg PO daily - Cardiology recommendations appreciated. 6) DM II with peripheral neuropathy - ISS medium -Continue Pregabalin 75 mg BID daily 7) Urinary retention - Contact precautions - Patient has Macias - Continue Tamsulosin 0.4 mg PO daily 8) DVT/GI prophylaxis/prevention of healthcare-related illness - Heparin 5,000 units SC q8h - Protonix 40 mg IVP Daily - Contact precautions <Corey Moore - Last Filed: 08/14/17 17:11> Objective - Vital Signs/Intake and Output Vital Signs (last 24 hours): Temp Pulse Resp BP Pulse Ox 98.6 F 73 20 156/91 H 98 08/14/17 08:00 08/14/17 15:14 08/14/17 08:00 08/14/17 15:14 08/14/17 08:00 Intake and Output: 08/14/17 08/14/17 06:59 18:59 Intake Total 240 800 Output Total 350 Balance -110 800 - Medications Medications: Current Medications Acetaminophen (Tylenol 325mg Tab) 650 mg PO Q4H PRN PRN Reason: Temperature Last Admin: 08/10/17 12:12 Dose: 650 mg Amlodipine Besylate (Norvasc) 10 mg PO DAILY [facility] Last Admin: 08/14/17 10:49 Dose: 10 mg Aspirin (Ecotrin) 81 mg PO DAILY [facility] Last Admin: 08/14/17 10:49 Dose: 81 mg Atorvastatin Calcium (Lipitor) 40 mg PO DIN [facility] Last Admin: 08/13/17 17:26 Dose: 40 mg Heparin Sodium (Porcine) (Heparin) 5,000 units SC Q8 MARYANN PRN Reason: Protocol Last Admin: 08/13/17 21:56 Dose: 5,000 units Hydralazine HCl (Apresoline) 10 mg IVP Q6H PRN PRN Reason: SBP > 160, DBP >100 Last Admin: 08/13/17 06:09 Dose: 10 mg Hydralazine HCl (Apresoline) 25 mg PO TID [facility] Last Admin: 08/14/17 15:14 Dose: 25 mg Meropenem 500 mg/ Sodium (Chloride) 100 mls @ 100 mls/hr IVPB Q24H MARYANN PRN Reason: Protocol Last Admin: 08/13/17 23:15 Dose: 100 mls/hr Insulin Human Regular (Humulin R Med) 0 units SC ACHS [facility]ARYANN PRN Reason: Protocol Last Admin: 08/14/17 12:08 Dose: 5 units Isosorbide Mononitrate (Imdur) 60 mg PO DAILY [facility] Last Admin: 08/14/17 10:49 Dose: 60 mg Losartan Potassium (Cozaar) 100 mg PO DAILY [facility] Last Admin: 08/14/17 10:49 Dose: 100 mg Metoprolol Tartrate (Lopressor) 25 mg PO BID [facility] Last Admin: 08/14/17 10:49 Dose: 25 mg Ondansetron HCl (Zofran Inj) 4 mg IVP Q4H PRN PRN Reason: Nausea/Vomiting Pantoprazole Sodium (Protonix Ec Tab) 40 mg PO DAILY [facility] Last Admin: 08/14/17 10:49 Dose: 40 mg Pregabalin (Lyrica) 75 mg PO BID [facility] Last Admin: 08/14/17 10:50 Dose: 75 mg Sevelamer HCl (Renagel) 800 mg PO TID [facility] Last Admin: 08/14/17 15:14 Dose: 800 mg Tamsulosin HCl (Flomax) 0.4 mg PO DAILY [facility] Last Admin: 08/14/17 10:49 Dose: 0.4 mg Vancomycin HCl (Vancocin 25 Mg/Ml (Oral Use)) 250 mg PO Q6 [facility] PRN Reason: Protocol Last Admin: 08/14/17 12:07 Dose: 250 mg Vitamin B Complex/Vit C/Folic Acid (Nephro-Eleni) 1 tab PO 0800 [facility] Last Admin: 08/14/17 08:24 Dose: 1 tab Zolpidem Tartrate (Ambien) 10 mg PO HS PRN; Protocol PRN Reason: Insomnia Last Admin: 08/13/17 21:55 Dose: 10 mg - Labs Labs: 08/14/17 06:20 08/14/17 06:20 PT 13.4 SECONDS (9.4-12.5) H 08/06/17 14:32 INR 1.22 (0.93-1.08) H 08/06/17 14:32 APTT 33.5 Seconds (25.1-36.5) 08/06/17 14:32 Attending/Attestation - Attestation I have personally seen and examined this patient.: Yes I have fully participated in the care of the patient.: Yes I have reviewed all pertinent clinical information, including history, physical exam and plan: Yes Notes (Text): 08/14/17 17:10 Patient was seen and examined with resident medical officer. Agreed with resident assessment and plan. 56 year old male with a past medical history of ESRD (HD TTS), CAD, DM II, CVA, hypertension, dyslipidemia, with sepsis due to Pseudomonas bactermia , on IV Meropenem as per ID.Etiology is likely due to line sepsis.Dialysis catheter was removed yesterday.Patient is afebrile. Repeat blood cultures from 08/12/17 are negative so far. We will follow up Echo and cultures. Patient case was discussed with ID. Management plan was discussed in detail with patient Education was provided.
--- NOTE | 2017-08-13 18:19 | CP.PCM.PN ---
Subjective - Date & Time of Evaluation Date of Evaluation: 08/13/17 Time of Evaluation: 16:45 - Subjective Subjective: Infectious Disease Follow Up: August 13, 2017 56 yo male known to me in the distant past presenting with fevers and body chills after dialysis today. His initial presentation was for jet black, brisk diarrhea and concurrent vomiting. The patient apparently completed a treatment for Pseudomonas about a week before admission. Patient is leukopenic and neutropenic at this time. Patient does not know what antibiotic he received in the outpatient setting. Still had a fever tonight. On Vancomycin and Meropenem for treatment at this time. Fever up to 101.2 F over two days ago. Afebrile the past 48 hours. Identification of gram negative rods done. Patient needs change of all indwelling lines. Cultures showing Pseudomonas that was highly sensitive. Multiple cultures positive. Objective - Vital Signs/Intake and Output Vital Signs (last 24 hours): Temp Pulse Resp BP Pulse Ox 98.7 F 67 20 168/86 H 98 08/13/17 16:00 08/13/17 17:26 08/13/17 16:00 08/13/17 17:26 08/13/17 16:00 Intake and Output: 08/13/17 08/13/17 06:59 18:59 Intake Total 1140 2400 Output Total 1100 1200 Balance 40 1200 - Medications Medications: Current Medications Acetaminophen (Tylenol 325mg Tab) 650 mg PO Q4H PRN PRN Reason: Temperature Last Admin: 08/10/17 12:12 Dose: 650 mg Amlodipine Besylate (Norvasc) 10 mg PO DAILY [facility] Aspirin (Ecotrin) 81 mg PO DAILY [facility] Last Admin: 08/13/17 09:30 Dose: 81 mg Atorvastatin Calcium (Lipitor) 40 mg PO DIN [facility] Last Admin: 08/13/17 17:26 Dose: 40 mg Heparin Sodium (Porcine) (Heparin) 5,000 units SC Q8 [facility]ARYANN PRN Reason: Protocol Last Admin: 08/13/17 13:33 Dose: 5,000 units Hydralazine HCl (Apresoline) 10 mg IVP Q6H PRN PRN Reason: SBP > 160, DBP >100 Last Admin: 08/13/17 06:09 Dose: 10 mg Hydralazine HCl (Apresoline) 25 mg PO TID [facility] Last Admin: 08/13/17 17:26 Dose: 25 mg Meropenem 500 mg/ Sodium (Chloride) 100 mls @ 100 mls/hr IVPB Q24H [facility]ARYANN PRN Reason: Protocol Last Admin: 08/12/17 23:33 Dose: 100 mls/hr Insulin Human Regular (Humulin R Med) 0 units SC ACHS [facility]ARYANN PRN Reason: Protocol Last Admin: 08/13/17 17:24 Dose: 1 units Isosorbide Mononitrate (Imdur) 60 mg PO DAILY [facility] Last Admin: 08/13/17 09:25 Dose: 60 mg Losartan Potassium (Cozaar) 100 mg PO DAILY [facility] Last Admin: 08/13/17 09:25 Dose: 100 mg Metoprolol Tartrate (Lopressor) 25 mg PO BID [facility] Last Admin: 08/13/17 17:24 Dose: 25 mg Ondansetron HCl (Zofran Inj) 4 mg IVP Q4H PRN PRN Reason: Nausea/Vomiting Pantoprazole Sodium (Protonix Ec Tab) 40 mg PO DAILY [facility] Last Admin: 08/13/17 09:25 Dose: 40 mg Pregabalin (Lyrica) 75 mg PO BID [facility] Last Admin: 08/13/17 17:26 Dose: 75 mg Sevelamer HCl (Renagel) 800 mg PO TID [facility] Last Admin: 08/13/17 17:24 Dose: 800 mg Tamsulosin HCl (Flomax) 0.4 mg PO DAILY [facility] Last Admin: 08/13/17 09:24 Dose: 0.4 mg Vancomycin HCl (Vancocin 25 Mg/Ml (Oral Use)) 250 mg PO Q6 [facility] PRN Reason: Protocol Last Admin: 08/13/17 17:23 Dose: 250 mg Vitamin B Complex/Vit C/Folic Acid (Nephro-Eleni) 1 tab PO 0800 [facility] Last Admin: 08/13/17 09:24 Dose: 1 tab Zolpidem Tartrate (Ambien) 10 mg PO HS PRN; Protocol PRN Reason: Insomnia Last Admin: 08/12/17 21:17 Dose: 10 mg - Labs Labs: 08/13/17 08:00 08/13/17 08:00 PT 13.4 SECONDS (9.4-12.5) H 08/06/17 14:32 INR 1.22 (0.93-1.08) H 08/06/17 14:32 APTT 33.5 Seconds (25.1-36.5) 08/06/17 14:32 - Constitutional Appears: Non-toxic, No Acute Distress, Chronically Ill - Head Exam Head Exam: ATRAUMATIC, NORMOCEPHALIC - Eye Exam Eye Exam: EOMI, PERRL Pupil Exam: NORMAL ACCOMODATION, PERRL - ENT Exam ENT Exam: Mucous Membranes Moist, Normal External Ear Exam, TM's Normal Bilaterally - Neck Exam Neck Exam: Full ROM, Normal Inspection - Respiratory Exam Respiratory Exam: Clear to Ausculation Bilateral, NORMAL BREATHING PATTERN. absent: Rales, Rhonchi, Wheezes - Cardiovascular Exam Cardiovascular Exam: REGULAR RHYTHM, RRR, +S1, +S2 - GI/Abdominal Exam GI & Abdominal Exam: Soft, Normal Bowel Sounds. absent: Distended, Tenderness - Extremities Exam Additional comments: right forefoot amputation - Neurological Exam Neurological Exam: Alert, Awake, CN II-XII Intact, Oriented x3 - Psychiatric Exam Psychiatric exam: Normal Affect, Normal Mood - Skin Skin Exam: Dry, Intact Assessment and Plan - Assessment and Plan (Free Text) Assessment: 56 yo male with initial presentation of diarrhea, vomiting, and abdominal pain. The patient developed fevers and leukopenia today. Damon cultures sent. Vancomycin and Meropenem started. Will give a dose of aminoglycoside. Procalcitonin severely elevated at 59. Lactic acid increasing to 2.8. WBC at 5.6. Check influenza titers as well. The patient may need neutropenic precautions. Supportive care. Gram negative rods seen in the blood cultures. Patient with gram negative bacteremia and likely septicemia. Patient with medical history of ESRD on HD, CAD, HTN, and DM. Remains on Meropenem and PO Vancomycin. Last C. Diff partially positive. Would retest C. Diff. The patient with Pseudomonas in cultures. Permacath removed and placement of a temporary dialysis catheter done. Needs 14 days of IV antibiotics if not more. Can consider use of aminoglycoside like Amikacin to administer with HD. Repeat cultures. If repeat cultures are negative, can place permacath for hemodialysis. Thank you for allowing me to participate in the care of the patient, we will follow with you.
--- NOTE | 2017-08-13 20:23 | PN ---
DATE: 08/13/2017 SUBJECTIVE: The patient is in room 560, bed 1. REASON FOR CONSULTATION AND FOLLOWUP: Coronary artery disease, fevers, chills, Gram-negative rods on blood cultures, sepsis, episodes of diarrhea and vomiting, status post coronary artery bypass surgery. SUBJECTIVE: The patient denies any chest pain, shortness of breath, or palpitation. Denies any shaking chills anymore. PHYSICAL EXAMINATION: VITAL SIGNS: Blood pressure 180/95, earlier blood pressure was 145/73; respirations 20; pulse 77; temperature 98.5. HEENT: Head is normocephalic. Eyes; pupils are normal. Conjunctivae slightly pale. NECK: JVP low. Carotids are equal. THORAX: AP diameter normal. LUNGS: Clear. CARDIOVASCULAR: S1, S2. ABDOMEN: Soft and nontender. No organomegaly. EXTREMITIES: No clubbing. No cyanosis. LABORATORY DATA: WBC 5.6, hemoglobin 11.8, hematocrit 36.3, and platelet 181. Sodium 132, potassium 4.2, BUN 37, creatinine 5.9, random glucose 333, calcium 9.1. AST, ALT normal. Total protein and albumin normal. DIAGNOSES: Sepsis; history of history of coffee-ground material vomiting and black stool diarrhea; history of coronary artery disease, status post coronary artery bypass surgery; history of renal failure, on dialysis; prior to bypass surgery, the patient also had angioplasty and stent insertion; peripheral vascular disease; history of amputation of part of the foot, according to the patient it was following an injury to the foot; status post removal of dialysis catheter and insertion of a new catheter, catheter was changed because of the possibility of infective process starting from the dialysis catheter. PLAN: The patient's dialysis catheter has been replaced because of infective process. The patient clinically has been feeling better since then. The patient is on hydralazine 25 mg p.o. t.i.d., losartan 100 mg daily, aspirin 81 mg daily, heparin 5000 units subcutaneously q. 8 hourly, isosorbide mononitrate 60 daily, Lipitor 40 daily, metoprolol 25 b.i.d., Lyrica 75 b.i.d., meropenem 500 mg IV q. 24 hours. Amlodipine 5 mg daily, since blood pressure is high, we will increase it to 10 mg p.o. daily. The patient is on vancomycin 250 mg p.o. q. 6 hourly. We will follow. Corey Shine MD
[2017-08-13] MEDS: Meropenem 500 MG in Sodium Chloride 0.9% 100 ML IVPB SCH (23:15)
[2017-08-14] MEDS: Vancomycin 25 MG/ML PO SCH ×4 (05:08→23:00)
[2017-08-14 07:08] LABS: HEMATOCRIT 32.8 % (42.0-52.0); MEAN CELL VOLUME 85.9 fl (80.0-105.0); MEAN CORPUSCULAR HGB CONC 32.6 g/dl (31.0-37.0); MEAN PLATELET VOLUME 11.4 fl (7.0-11.0); WHITE BLOOD COUNT 6.5 10^3/ul (4.5-11.0)
[2017-08-14 07:16] LABS: ALB/GLOB RATIO 1.2 (1.1-1.8); BILIRUBIN,TOTAL 0.4 mg/dL (0.2-1.3); CALCIUM 8.7 mg/dL (8.4-10.5); POTASSIUM 4.3 mmol/L (3.6-5.0); TOTAL PROTEIN 5.6 g/dL (5.8-8.3)
[2017-08-14] MEDS: Multivitamin Vitamin B Complex (Nephro-Vite) Tab PO SCH (08:24)
[2017-08-14] MEDS: Insulin Reg-MEDIUM-Coverage SC SCH ×4 (08:24→22:13)
[2017-08-14] MEDS: Pantoprazole 40 mg EC Tab PO SCH (10:49)
--- NOTE | 2017-08-14 13:27 | CP.PCM.PN ---
<Mulugeta Johnson - Last Filed: 08/14/17 16:35> Subjective - Date & Time of Evaluation Date of Evaluation: 08/14/17 Time of Evaluation: 08:00 - Subjective Subjective: Patient seen and examined at bedside with no acute complaints. States he had just returned from getting his echocardiogram done. Denies chest pain, shortness of breath, fever, diarrhea, nausea, vomiting. Objective - Vital Signs/Intake and Output Vital Signs (last 24 hours): Temp Pulse Resp BP Pulse Ox 98.6 F 73 20 156/91 H 98 08/14/17 08:00 08/14/17 10:49 08/14/17 08:00 08/14/17 10:49 08/14/17 08:00 Intake and Output: 08/14/17 08/14/17 06:59 18:59 Intake Total 240 800 Output Total 350 Balance -110 800 - Medications Medications: Current Medications Acetaminophen (Tylenol 325mg Tab) 650 mg PO Q4H PRN PRN Reason: Temperature Last Admin: 08/10/17 12:12 Dose: 650 mg Amlodipine Besylate (Norvasc) 10 mg PO DAILY [facility] Last Admin: 08/14/17 10:49 Dose: 10 mg Aspirin (Ecotrin) 81 mg PO DAILY [facility] Last Admin: 08/14/17 10:49 Dose: 81 mg Atorvastatin Calcium (Lipitor) 40 mg PO DIN [facility] Last Admin: 08/13/17 17:26 Dose: 40 mg Heparin Sodium (Porcine) (Heparin) 5,000 units SC Q8 [facility] PRN Reason: Protocol Last Admin: 08/13/17 21:56 Dose: 5,000 units Hydralazine HCl (Apresoline) 10 mg IVP Q6H PRN PRN Reason: SBP > 160, DBP >100 Last Admin: 08/13/17 06:09 Dose: 10 mg Hydralazine HCl (Apresoline) 25 mg PO TID [facility] Last Admin: 08/14/17 10:49 Dose: 25 mg Meropenem 500 mg/ Sodium (Chloride) 100 mls @ 100 mls/hr IVPB Q24H [facility] PRN Reason: Protocol Last Admin: 08/13/17 23:15 Dose: 100 mls/hr Insulin Human Regular (Humulin R Med) 0 units SC ACHS [facility] PRN Reason: Protocol Last Admin: 08/14/17 12:08 Dose: 5 units Isosorbide Mononitrate (Imdur) 60 mg PO DAILY [facility] Last Admin: 08/14/17 10:49 Dose: 60 mg Losartan Potassium (Cozaar) 100 mg PO DAILY [facility] Last Admin: 08/14/17 10:49 Dose: 100 mg Metoprolol Tartrate (Lopressor) 25 mg PO BID [facility] Last Admin: 08/14/17 10:49 Dose: 25 mg Ondansetron HCl (Zofran Inj) 4 mg IVP Q4H PRN PRN Reason: Nausea/Vomiting Pantoprazole Sodium (Protonix Ec Tab) 40 mg PO DAILY [facility] Last Admin: 08/14/17 10:49 Dose: 40 mg Pregabalin (Lyrica) 75 mg PO BID [facility] Last Admin: 08/14/17 10:50 Dose: 75 mg Sevelamer HCl (Renagel) 800 mg PO TID [facility] Last Admin: 08/14/17 10:49 Dose: 800 mg Tamsulosin HCl (Flomax) 0.4 mg PO DAILY [facility] Last Admin: 08/14/17 10:49 Dose: 0.4 mg Vancomycin HCl (Vancocin 25 Mg/Ml (Oral Use)) 250 mg PO Q6 [facility] PRN Reason: Protocol Last Admin: 08/14/17 12:07 Dose: 250 mg Vitamin B Complex/Vit C/Folic Acid (Nephro-Eleni) 1 tab PO 0800 [facility] Last Admin: 08/14/17 08:24 Dose: 1 tab Zolpidem Tartrate (Ambien) 10 mg PO HS PRN; Protocol PRN Reason: Insomnia Last Admin: 08/13/17 21:55 Dose: 10 mg - Labs Labs: 08/14/17 06:20 08/14/17 06:20 PT 13.4 SECONDS (9.4-12.5) H 08/06/17 14:32 INR 1.22 (0.93-1.08) H 08/06/17 14:32 APTT 33.5 Seconds (25.1-36.5) 08/06/17 14:32 - Constitutional Appears: Non-toxic - Head Exam Head Exam: ATRAUMATIC, NORMAL INSPECTION, NORMOCEPHALIC - Eye Exam Eye Exam: EOMI, Normal appearance - ENT Exam ENT Exam: Mucous Membranes Moist, Normal Exam - Neck Exam Neck Exam: Full ROM, Normal Inspection - Respiratory Exam Respiratory Exam: Clear to Ausculation Bilateral, NORMAL BREATHING PATTERN - Cardiovascular Exam Cardiovascular Exam: REGULAR RHYTHM, +S1, +S2 - GI/Abdominal Exam GI & Abdominal Exam: Soft, Normal Bowel Sounds - Back Exam Back Exam: NORMAL INSPECTION - Neurological Exam Neurological Exam: Alert, Awake, Oriented x3 - Psychiatric Exam Psychiatric exam: Normal Affect, Normal Mood - Skin Skin Exam: Normal Color, Warm Assessment and Plan - Assessment and Plan (Free Text) Assessment: 56 year old male with a past medical history of ESRD (HD TTS), CAD, DM II, CVA, hypertension, dyslipidemia, recently treated for a gram negative bactermia who presented with 2.5 days of brisk, jet black diarrhea, vomiting, decreased PO intake and feelings of generalized malaise. Plan: 1. Pseudomonas bacteremia likely secondary to infected HD catheter - Temporary HD catheter has been inserted; Perm Cath will be placed by Dr. Cortés tomorrow - Discuss further with Dr. Cohn tomorrow regarding Amikacin with HD - Tylenol 650 mg q6h PRN fever greater than 100.4 F; afebrile since 08/10 - Procal reordered; results pending - Infectious disease consulted on board will follow through with recommendations - Meropenem 500 mg q24h to be continued for 14 days from the day blood cultures have come back negative. - Repeat blood cultures ordered; negative for growth - Echocardiogram results pending 2. C. difficile associated diarrhea - Vancomycin 250 mg q6h PO every day for ten total days so 08/09-08/18; currently day 6 3. CAD - Continue Aspirin 81 - Continue Atorvastatin 40 - Continue Isosorbide Mononitrate 60. 4. ESRD - Dr. Garrett on case - Continue with Nephrovite - Sevelamer 800 mg TID - Dialysis scheduled 5. Hypertension - Hydralazine 10 mg IVP for SBP >160 or DBP >100 - Hydralazine 25 mg TID - Metoprolol 25 mg BID - Losartan 100 mg PO daily - Amlodipine 10 mg PO daily - Cardiology recommendations appreciated. 6. DM II with peripheral neuropathy -ISS medium -Continue Pregabalin 75 mg BID daily 7. Urinary retention - Contact precautions - Patient has Macias - Tamsulosin 0.4 mg PO daily 8. DVT/GI prophylaxis/prevention of healthcare-related illness - Heparin 5,000 units SC q8h - Protonix 40 mg IVP Daily - Contact precautions <Corey Moore - Last Filed: 08/14/17 17:17> Objective - Vital Signs/Intake and Output Vital Signs (last 24 hours): Temp Pulse Resp BP Pulse Ox 98.6 F 73 20 156/91 H 98 08/14/17 08:00 08/14/17 15:14 08/14/17 08:00 08/14/17 15:14 08/14/17 08:00 Intake and Output: 08/14/17 08/14/17 06:59 18:59 Intake Total 240 800 Output Total 350 Balance -110 800 - Medications Medications: Current Medications Acetaminophen (Tylenol 325mg Tab) 650 mg PO Q4H PRN PRN Reason: Temperature Last Admin: 08/10/17 12:12 Dose: 650 mg Amlodipine Besylate (Norvasc) 10 mg PO DAILY [facility] Last Admin: 08/14/17 10:49 Dose: 10 mg Aspirin (Ecotrin) 81 mg PO DAILY [facility] Last Admin: 08/14/17 10:49 Dose: 81 mg Atorvastatin Calcium (Lipitor) 40 mg PO DIN [facility] Last Admin: 08/13/17 17:26 Dose: 40 mg Heparin Sodium (Porcine) (Heparin) 5,000 units SC Q8 [facility] PRN Reason: Protocol Last Admin: 08/13/17 21:56 Dose: 5,000 units Hydralazine HCl (Apresoline) 10 mg IVP Q6H PRN PRN Reason: SBP > 160, DBP >100 Last Admin: 08/13/17 06:09 Dose: 10 mg Hydralazine HCl (Apresoline) 25 mg PO TID [facility] Last Admin: 08/14/17 15:14 Dose: 25 mg Meropenem 500 mg/ Sodium (Chloride) 100 mls @ 100 mls/hr IVPB Q24H [facility] PRN Reason: Protocol Last Admin: 08/13/17 23:15 Dose: 100 mls/hr Insulin Human Regular (Humulin R Med) 0 units SC ACHS [facility] PRN Reason: Protocol Last Admin: 08/14/17 12:08 Dose: 5 units Isosorbide Mononitrate (Imdur) 60 mg PO DAILY [facility] Last Admin: 08/14/17 10:49 Dose: 60 mg Losartan Potassium (Cozaar) 100 mg PO DAILY [facility] Last Admin: 08/14/17 10:49 Dose: 100 mg Metoprolol Tartrate (Lopressor) 25 mg PO BID [facility] Last Admin: 08/14/17 10:49 Dose: 25 mg Ondansetron HCl (Zofran Inj) 4 mg IVP Q4H PRN PRN Reason: Nausea/Vomiting Pantoprazole Sodium (Protonix Ec Tab) 40 mg PO DAILY [facility] Last Admin: 08/14/17 10:49 Dose: 40 mg Pregabalin (Lyrica) 75 mg PO BID [facility] Last Admin: 08/14/17 10:50 Dose: 75 mg Sevelamer HCl (Renagel) 800 mg PO TID [facility] Last Admin: 08/14/17 15:14 Dose: 800 mg Tamsulosin HCl (Flomax) 0.4 mg PO DAILY [facility] Last Admin: 08/14/17 10:49 Dose: 0.4 mg Vancomycin HCl (Vancocin 25 Mg/Ml (Oral Use)) 250 mg PO Q6 [facility] PRN Reason: Protocol Last Admin: 08/14/17 12:07 Dose: 250 mg Vitamin B Complex/Vit C/Folic Acid (Nephro-Eleni) 1 tab PO 0800 [facility] Last Admin: 08/14/17 08:24 Dose: 1 tab Zolpidem Tartrate (Ambien) 10 mg PO HS PRN; Protocol PRN Reason: Insomnia Last Admin: 08/13/17 21:55 Dose: 10 mg - Labs Labs: 08/14/17 06:20 08/14/17 06:20 PT 13.4 SECONDS (9.4-12.5) H 08/06/17 14:32 INR 1.22 (0.93-1.08) H 08/06/17 14:32 APTT 33.5 Seconds (25.1-36.5) 08/06/17 14:32 Attending/Attestation - Attestation I have personally seen and examined this patient.: Yes I have fully participated in the care of the patient.: Yes I have reviewed all pertinent clinical information, including history, physical exam and plan: Yes Notes (Text): 08/14/17 17:12 Patient was seen and examined with medical sonographer. Agreed with resident assessment and plan. 56 year old male with a past medical history of ESRD (HD TTS), CAD, DM II, CVA, hypertension, dyslipidemia, with sepsis due to Pseudomonas bactermia , on IV Meropenem as per ID.Etiology is likely due to line sepsis.Dialysis catheter tip is also growing Pseudomonas..Patient is afebrile.Repeat blood cultures are negative for any growth.We will follow up 2D Echo to rule out endocarditis. Management plan was discussed in detail with patient Education was provided.
--- NOTE | 2017-08-14 14:15 | PN ---
DATE: 08/14/2017 LOCATION: The patient in room 560, bed 1. REASON FOR CONSULTATION: Followup coronary artery disease, fever, chills, sepsis, episode of diarrhea and vomiting, status post coronary bypass surgery. SUBJECTIVE: The patient denies any shaking chills now. Denies any chest pain, shortness of breath, palpitations. Lying comfortably in bed. PHYSICAL EXAMINATION: VITAL SIGNS: Blood pressure 156/91, respirations 20, pulse 73, temperature 98.6. HEENT: Head is normocephalic. Eyes: Pupils normal. Conjunctivae slightly pale. NECK: JVP low. Carotids equal. THORAX: AP diameter normal. LUNGS: Clear. CARDIOVASCULAR: S1 and S2. ABDOMEN: Soft. No tenderness. No organomegaly. EXTREMITIES: No clubbing. No cyanosis. Part of the right foot has amputation. According to the patient, this was related to injury. LABORATORY DATA: WBC 6.5, hemoglobin 10.7, hematocrit 32.8, platelets 177. Sodium 133, potassium 4.3, BUN 52, creatinine 6.9, glucose 312, and calcium 8.7. AST and ALT are normal. Total protein 5.6, albumin 3.0. DIAGNOSES: Sepsis. History of coffee-ground material vomiting and diarrhea. Coronary artery disease, status post coronary artery bypass surgery. Renal failure, on dialysis. Peripheral vascular disease. History of amputation part of the foot; as per the patient, it was related to injury to the foot. Status post removal of dialysis catheter and insertion of a new catheter. It was changed because of possibility of infective process starting from the dialysis catheter. PLAN: The patient will continue dialysis as per renal, status post dialysis catheter change because of infection. The patient is on hydralazine 25 mg t.i.d., losartan 100 daily, aspirin 81 daily, heparin 5000 units subcu q. 8 hours, isosorbide/mononitrate , metoprolol 25 b.i.d., Lyrica 75 mg b.i.d., meropenem 500 mg IV q. 24 hours, amlodipine 10 mg daily, Protonix 40 daily, vancomycin 250 mg p.o. q. 6 hourly. We will continue present therapy. The patient is going to have echo today and we will follow. Corey Shine MD
--- NOTE | 2017-08-14 15:21 | CP.PCM.PN ---
Subjective - Date & Time of Evaluation Date of Evaluation: 08/14/17 Time of Evaluation: 15:18 - Subjective Subjective: Follow up Nephrology Consultation: Assessment: stable Sepsis with psuedomonas due to permacath infection esophageal ulceration, gastroparesis Nausea/vomitting, diarrhoea ? related to above Diabetic chronic Kidney Disease (E11.22) Hypertensive Chronic Kidney Disease (I12.0) End stage renal disease (N18.6) dependence on hemodialysis (Z99.2) (TTS) Anemia (D64.9), Hyperphosphatemia (E83.39), Secondary Hyperparathyroidism (E21.1 ), HTN (I12.0) CAD s/p CABG chronic urine retention Plan: For HD tomorrow as ordered. continue with Nephrovite 1 tab/day. Hb fluctuating today 10.7. getting weekly aranesp Continue with hectorol with dialysis. BP control with meds as ordered. Patient on RAAS anjelica Glycemic control, Dialysis consistent diet Further work up/management as per primary team Dose meds/antibiotics for ESRD status. Avoid fleets enema/magnesium based laxatives. GI, ID following. antibiotics as per ID. started renagel 800 mg TID with meals for high phos pt advised to consider self intermittent catheterization instead of indwelling martinez. if blood cx neg by tomorrow, I think it would be safe to place permacath tomorrow and remove temp access. Agree with ID plan of aminoglycoside post HD which will ensure compliance and avoid PICC line pt again reinforced not to shower or let catheter get wet with water Thanks for allowing me to participate in care of your patient. Will follow patient with you. Please call if any Qs. d/w team Dr Sancho Garrett Office: [phone] HPI: Pt is a 56 y/o M with hx of ESRD on hemodialysis (TTS) via permacath, last dialysis sat, chronic anemia, hyperphosphatemia, secondary hyperparathyroidism, Diabetes Mellitus, hypertension, urine retention s/p martinez , hx of permacath related infection with psuedomonas and septic embolic, CAD s/ p CABG, esophageal ulceration, gastroparesis came with c/o vomitting as coffee ground and dark stool/loose stool x 2-3 days and being admitted for further work up. he feels better now. GI symptoms has resolved Denies chest pain, palpitation, shortness of breath, leg swelling refuses HD for 4 hrs as ordered, regularly cuts treatment time to 3 hrs only, counselled and educated multiple times Physical Examination: General Appearance: comfortable, in no acute respiratory distress, co-operative . Vitals reviewed and noted as below Head; Atraumatic, normocephalic ENT: no ulcers no thrush. Tongue is midline. Oropharynx: no rash or ulcers. EYES: Pupils are equal, round and reactive to light accommodation. Eye muscles and extraocular movement intact. Sclera is anicteric. Neck; supple no lymphadenopathy, no thyromegaly or bruit Lungs: Normal respiratory rate/effort. Breath sounds bilateral equal and clear Heart: Normal rate. s1s2 normal. No rub or gallop. Extremities: no edema. No varicose veins Neurological: Patient is alert, awake and oriented to person, place and time. No focal deficit. Strength bilateral appropriate and equal Skin: Warm and dry. Normal turgor. No rash. Palpitation: Normal elasticity for age Abdomen: Abdomen is soft. Bowel sounds +. There is no abdominal tenderness, no guarding/rigidity or organomegaly Psych: limited insight has normal affect/mood MSK: no joint tenderness or swelling. Digits and nails normal, no deformity. had toe amputations : kidney or bladder not palpable. has chronic martinez Access: permacath Labs/imaging reviewed. Past medical history, past surgical history, family history, social history, allergy reviewed and noted as below Family Hx: no hx of CKD. Non contributory Objective - Vital Signs/Intake and Output Vital Signs (last 24 hours): Temp Pulse Resp BP Pulse Ox 98.6 F 73 20 156/91 H 98 08/14/17 08:00 08/14/17 15:14 08/14/17 08:00 08/14/17 15:14 08/14/17 08:00 Intake and Output: 08/14/17 08/14/17 06:59 18:59 Intake Total 240 800 Output Total 350 Balance -110 800 - Medications Medications: Current Medications Acetaminophen (Tylenol 325mg Tab) 650 mg PO Q4H PRN PRN Reason: Temperature Last Admin: 08/10/17 12:12 Dose: 650 mg Amlodipine Besylate (Norvasc) 10 mg PO DAILY [facility] Last Admin: 08/14/17 10:49 Dose: 10 mg Aspirin (Ecotrin) 81 mg PO DAILY [facility] Last Admin: 08/14/17 10:49 Dose: 81 mg Atorvastatin Calcium (Lipitor) 40 mg PO DIN [facility] Last Admin: 08/13/17 17:26 Dose: 40 mg Heparin Sodium (Porcine) (Heparin) 5,000 units SC Q8 [facility] PRN Reason: Protocol Last Admin: 08/13/17 21:56 Dose: 5,000 units Hydralazine HCl (Apresoline) 10 mg IVP Q6H PRN PRN Reason: SBP > 160, DBP >100 Last Admin: 08/13/17 06:09 Dose: 10 mg Hydralazine HCl (Apresoline) 25 mg PO TID [facility] Last Admin: 08/14/17 15:14 Dose: 25 mg Meropenem 500 mg/ Sodium (Chloride) 100 mls @ 100 mls/hr IVPB Q24H [facility] PRN Reason: Protocol Last Admin: 08/13/17 23:15 Dose: 100 mls/hr Insulin Human Regular (Humulin R Med) 0 units SC ACHS [facility] PRN Reason: Protocol Last Admin: 08/14/17 12:08 Dose: 5 units Isosorbide Mononitrate (Imdur) 60 mg PO DAILY [facility] Last Admin: 08/14/17 10:49 Dose: 60 mg Losartan Potassium (Cozaar) 100 mg PO DAILY [facility] Last Admin: 08/14/17 10:49 Dose: 100 mg Metoprolol Tartrate (Lopressor) 25 mg PO BID [facility] Last Admin: 08/14/17 10:49 Dose: 25 mg Ondansetron HCl (Zofran Inj) 4 mg IVP Q4H PRN PRN Reason: Nausea/Vomiting Pantoprazole Sodium (Protonix Ec Tab) 40 mg PO DAILY [facility] Last Admin: 08/14/17 10:49 Dose: 40 mg Pregabalin (Lyrica) 75 mg PO BID [facility] Last Admin: 08/14/17 10:50 Dose: 75 mg Sevelamer HCl (Renagel) 800 mg PO TID [facility] Last Admin: 08/14/17 15:14 Dose: 800 mg Tamsulosin HCl (Flomax) 0.4 mg PO DAILY [facility] Last Admin: 08/14/17 10:49 Dose: 0.4 mg Vancomycin HCl (Vancocin 25 Mg/Ml (Oral Use)) 250 mg PO Q6 [facility] PRN Reason: Protocol Last Admin: 08/14/17 12:07 Dose: 250 mg Vitamin B Complex/Vit C/Folic Acid (Nephro-Eleni) 1 tab PO 0800 [facility] Last Admin: 08/14/17 08:24 Dose: 1 tab Zolpidem Tartrate (Ambien) 10 mg PO HS PRN; Protocol PRN Reason: Insomnia Last Admin: 08/13/17 21:55 Dose: 10 mg - Labs Labs: 08/14/17 06:20 08/14/17 06:20 PT 13.4 SECONDS (9.4-12.5) H 08/06/17 14:32 INR 1.22 (0.93-1.08) H 08/06/17 14:32 APTT 33.5 Seconds (25.1-36.5) 08/06/17 14:32
--- NOTE | 2017-08-14 19:40 | CP.PCM.PN ---
Subjective - Date & Time of Evaluation Date of Evaluation: 08/14/17 Time of Evaluation: 17:00 - Subjective Subjective: Infectious Disease Follow Up: August 14, 2017 56 yo male known to me in the distant past presenting with fevers and body chills after dialysis today. His initial presentation was for jet black, brisk diarrhea and concurrent vomiting. The patient apparently completed a treatment for Pseudomonas about a week before admission. Patient is leukopenic and neutropenic at this time. Patient does not know what antibiotic he received in the outpatient setting. Still had a fever tonight. On Vancomycin and Meropenem for treatment at this time. Fever up to 101.2 F over two days ago. Afebrile the past 48 hours. Identification of gram negative rods done. Patient needs change of all indwelling lines. Cultures showing Pseudomonas that was highly sensitive. Multiple cultures positive. Maintaining meropenem. PO Vancomycin for C. diff. Remains afebrile and no leukocytosis. Objective - Vital Signs/Intake and Output Vital Signs (last 24 hours): Temp Pulse Resp BP Pulse Ox 98.9 F 74 20 167/80 H 97 08/14/17 16:00 08/14/17 17:21 08/14/17 16:00 08/14/17 17:21 08/14/17 16:00 Intake and Output: 08/14/17 08/15/17 18:59 06:59 Intake Total 800 Balance 800 - Medications Medications: Current Medications Acetaminophen (Tylenol 325mg Tab) 650 mg PO Q4H PRN PRN Reason: Temperature Last Admin: 08/10/17 12:12 Dose: 650 mg Amlodipine Besylate (Norvasc) 10 mg PO DAILY [facility] Last Admin: 08/14/17 10:49 Dose: 10 mg Aspirin (Ecotrin) 81 mg PO DAILY [facility] Last Admin: 08/14/17 10:49 Dose: 81 mg Atorvastatin Calcium (Lipitor) 40 mg PO DIN [facility] Last Admin: 08/14/17 17:23 Dose: 40 mg Heparin Sodium (Porcine) (Heparin) 5,000 units SC Q8 [facility] PRN Reason: Protocol Last Admin: 08/14/17 17:20 Dose: 5,000 units Hydralazine HCl (Apresoline) 10 mg IVP Q6H PRN PRN Reason: SBP > 160, DBP >100 Last Admin: 08/13/17 06:09 Dose: 10 mg Hydralazine HCl (Apresoline) 25 mg PO TID [facility] Last Admin: 08/14/17 17:21 Dose: 25 mg Meropenem 500 mg/ Sodium (Chloride) 100 mls @ 100 mls/hr IVPB Q24H [facility] PRN Reason: Protocol Last Admin: 08/13/17 23:15 Dose: 100 mls/hr Insulin Human Regular (Humulin R Med) 0 units SC ACHS [facility]ARY[facility] PRN Reason: Protocol Last Admin: 08/14/17 17:19 Dose: 7 units Isosorbide Mononitrate (Imdur) 60 mg PO DAILY [facility] Last Admin: 08/14/17 10:49 Dose: 60 mg Losartan Potassium (Cozaar) 100 mg PO DAILY [facility] Last Admin: 08/14/17 10:49 Dose: 100 mg Metoprolol Tartrate (Lopressor) 25 mg PO BID [facility] Last Admin: 08/14/17 17:20 Dose: 25 mg Ondansetron HCl (Zofran Inj) 4 mg IVP Q4H PRN PRN Reason: Nausea/Vomiting Pantoprazole Sodium (Protonix Ec Tab) 40 mg PO DAILY [facility] Last Admin: 08/14/17 10:49 Dose: 40 mg Pregabalin (Lyrica) 75 mg PO BID [facility] Last Admin: 08/14/17 17:21 Dose: 75 mg Sevelamer HCl (Renagel) 800 mg PO TID [facility] Last Admin: 08/14/17 17:21 Dose: 800 mg Tamsulosin HCl (Flomax) 0.4 mg PO DAILY [facility] Last Admin: 08/14/17 10:49 Dose: 0.4 mg Vancomycin HCl (Vancocin 25 Mg/Ml (Oral Use)) 250 mg PO Q6 [facility] PRN Reason: Protocol Last Admin: 08/14/17 17:19 Dose: 250 mg Vitamin B Complex/Vit C/Folic Acid (Nephro-Eleni) 1 tab PO 0800 [facility] Last Admin: 08/14/17 08:24 Dose: 1 tab Zolpidem Tartrate (Ambien) 10 mg PO HS PRN; Protocol PRN Reason: Insomnia Last Admin: 08/13/17 21:55 Dose: 10 mg - Labs Labs: 08/14/17 06:20 08/14/17 06:20 PT 13.4 SECONDS (9.4-12.5) H 08/06/17 14:32 INR 1.22 (0.93-1.08) H 08/06/17 14:32 APTT 33.5 Seconds (25.1-36.5) 08/06/17 14:32 - Constitutional Appears: Non-toxic, No Acute Distress, Chronically Ill - Head Exam Head Exam: ATRAUMATIC, NORMOCEPHALIC - Eye Exam Eye Exam: EOMI, PERRL Pupil Exam: NORMAL ACCOMODATION, PERRL - ENT Exam ENT Exam: Mucous Membranes Moist, Normal External Ear Exam, TM's Normal Bilaterally - Neck Exam Neck Exam: Full ROM, Normal Inspection - Respiratory Exam Respiratory Exam: Clear to Ausculation Bilateral, NORMAL BREATHING PATTERN. absent: Rales, Rhonchi, Wheezes - Cardiovascular Exam Cardiovascular Exam: REGULAR RHYTHM, RRR, +S1, +S2 - GI/Abdominal Exam GI & Abdominal Exam: Soft, Normal Bowel Sounds. absent: Distended, Tenderness - Extremities Exam Additional comments: right forefoot amputation - Neurological Exam Neurological Exam: Alert, Awake, CN II-XII Intact, Oriented x3 - Psychiatric Exam Psychiatric exam: Normal Affect, Normal Mood ( ) - Skin Skin Exam: Dry, Intact Assessment and Plan - Assessment and Plan (Free Text) Assessment: 56 yo male with initial presentation of diarrhea, vomiting, and abdominal pain. The patient developed fevers and leukopenia today. Damon cultures sent. Vancomycin and Meropenem started. Will give a dose of aminoglycoside. Procalcitonin severely elevated at 59. WBC at 6.5. Check influenza titers as well. The patient may need neutropenic precautions. Supportive care. Gram negative rods seen in the blood cultures. Patient with gram negative bacteremia and likely septicemia. Patient with medical history of ESRD on HD, CAD, HTN, and DM. Remains on Meropenem and PO Vancomycin. Last C. Diff partially positive. Would retest C. Diff. Pseudomonas growth in cultures. Maintain Meropenem for treatment. Need two sets of negative cultures before placing new permacath for dialysis. Thank you for allowing me to participate in the care of the patient, we will follow with you.
[2017-08-14] MEDS: Meropenem 500 MG in Sodium Chloride 0.9% 100 ML IVPB SCH (23:00)
[2017-08-15] MEDS: Vancomycin 25 MG/ML PO SCH ×3 (06:13→17:07)
[2017-08-15 07:20] LABS: HEMATOCRIT 34.1 % (42.0-52.0); MEAN CELL VOLUME 85.9 fl (80.0-105.0); MEAN CORPUSCULAR HEMOGLOBIN 27.7 pg (25.0-35.0); MEAN CORPUSCULAR HGB CONC 32.3 g/dl (31.0-37.0); MEAN PLATELET VOLUME 11.3 fl (7.0-11.0); RED CELL DISTRIBUTION WIDTH 15.9 % (11.5-14.5); WHITE BLOOD COUNT 7.5 10^3/ul (4.5-11.0)
[2017-08-15 07:49] LABS: ALB/GLOB RATIO 1.2 (1.1-1.8); BILIRUBIN,TOTAL 0.4 mg/dL (0.2-1.3); CALCIUM 8.8 mg/dL (8.4-10.5); POTASSIUM 4.4 mmol/L (3.6-5.0)
[2017-08-15] MEDS: Insulin Reg-MEDIUM-Coverage SC SCH ×5 (08:21→22:15)
[2017-08-15] MEDS: Multivitamin Vitamin B Complex (Nephro-Vite) Tab PO SCH (08:21)
[2017-08-15] MEDS: Pantoprazole 40 mg EC Tab PO SCH (10:24)
[2017-08-15] MEDS ORDERED: Doxercalciferol 4 mcg/2 ml Inj IVP ONE (10:28)
--- NOTE | 2017-08-15 11:16 | CARD ---
APPROVED REPORT EXAM: Two-dimensional and M-mode echocardiogram with Doppler and color Doppler. Other Information Quality : AverageRhythm : INDICATION Infection:Rule out subacute bacterial endocarditis 2D DIMENSIONS Left Atrium (2D)4.3 (1.6-4.0cm)IVSd1.2 (0.7-1.1cm) LVDd5.3 (3.9-5.9cm)PWd1.2 (0.7-1.1cm) LVDs3.8 (2.5-4.0cm)FS (%) 28.8 % LVEF (%)55.0 (>50%) M-Mode DIMENSIONS Aortic Root3.30 (2.2-3.7cm)Aortic Cusp Exc.1.60 (1.5-2.0cm) Aortic Valve AoV Peak Tdxsyeag468.0cm/s Mitral Valve MV E Xpdbynef62.1cm/sMV A Ipxuuzfp81.4cm/sE/A ratio1.1 TDI E/Lateral E'0.0E/Medial E'0.0 Tricuspid Valve TR Peak [id number]/sRAP [id number] Peak Gr.13mmHg [id number] LEFT VENTRICLE The left ventricle is normal size. There is mild concentric left ventricular hypertrophy. The left ventricular function is normal. The left ventricular ejection fraction is within the normal range. There is normal LV segmental wall motion. RIGHT VENTRICLE The right ventricle is normal size. ATRIA The left atrium is mildly dilated. The right atrium size is normal. The interatrial septum is intact with no evidence for an atrial septal defect. AORTIC VALVE The aortic valve is normal in structure. MITRAL VALVE The mitral valve is normal in structure. Mitral regurgitation is trace to mild. TRICUSPID VALVE The tricuspid valve is normal in structure. There is trace to mild tricuspid regurgitation. PULMONIC VALVE The pulmonic valve is not well visualized. GREAT VESSELS The aortic root is normal in size. PERICARDIAL EFFUSION There is no pericardial effusion. <Conclusion> The left ventricle is normal size. There is mild concentric left ventricular hypertrophy. The left ventricular function is normal. No vegetation seen
--- NOTE | 2017-08-15 11:28 | CP.PCM.PN ---
<Mulugeta Johnson - Last Filed: 08/15/17 13:13> Subjective - Date & Time of Evaluation Date of Evaluation: 08/15/17 Time of Evaluation: 06:45 - Subjective Subjective: Patient seen wide awake at bedside this morning. Patient states he slept better this night than he has in a long time. States he is no longer having diarrhea his last bowel movement occurred overnight and was solid. Has no complaints at this time denies chest pain, shortness of breath, abdominal pain, diarrhea, nausea, vomiting. Is aware of perm cath placement tomorrow by Dr. Cortés. Objective - Vital Signs/Intake and Output Vital Signs (last 24 hours): Temp Pulse Resp BP Pulse Ox 97.5 F L 75 20 170/74 H 95 08/15/17 07:22 08/15/17 07:22 08/15/17 07:22 08/15/17 07:22 08/15/17 07:22 Intake and Output: 08/15/17 08/15/17 06:59 18:59 Intake Total 1380 Output Total 1700 Balance -320 - Medications Medications: Current Medications Acetaminophen (Tylenol 325mg Tab) 650 mg PO Q4H PRN PRN Reason: Temperature Last Admin: 08/10/17 12:12 Dose: 650 mg Amlodipine Besylate (Norvasc) 10 mg PO DAILY [facility] Last Admin: 08/15/17 10:24 Dose: Not Given Aspirin (Ecotrin) 81 mg PO DAILY [facility] Last Admin: 08/15/17 10:24 Dose: Not Given Atorvastatin Calcium (Lipitor) 40 mg PO DIN [facility] Last Admin: 08/14/17 17:23 Dose: 40 mg Heparin Sodium (Porcine) (Heparin) 5,000 units SC Q8 [facility] PRN Reason: Protocol Last Admin: 08/15/17 05:59 Dose: 5,000 units Hydralazine HCl (Apresoline) 10 mg IVP Q6H PRN PRN Reason: SBP > 160, DBP >100 Last Admin: 08/13/17 06:09 Dose: 10 mg Hydralazine HCl (Apresoline) 25 mg PO TID [facility] Last Admin: 08/15/17 10:23 Dose: Not Given Meropenem 500 mg/ Sodium (Chloride) 100 mls @ 100 mls/hr IVPB Q24H [facility] PRN Reason: Protocol Last Admin: 08/14/17 23:00 Dose: 100 mls/hr Insulin Human Regular (Humulin R Med) 0 units SC ACHS [facility] PRN Reason: Protocol Last Admin: 08/15/17 08:21 Dose: 5 units Isosorbide Mononitrate (Imdur) 60 mg PO DAILY [facility] Last Admin: 08/15/17 10:24 Dose: Not Given Losartan Potassium (Cozaar) 100 mg PO DAILY [facility] Last Admin: 08/15/17 10:24 Dose: Not Given Metoprolol Tartrate (Lopressor) 25 mg PO BID [facility] Last Admin: 08/15/17 10:24 Dose: Not Given Ondansetron HCl (Zofran Inj) 4 mg IVP Q4H PRN PRN Reason: Nausea/Vomiting Pantoprazole Sodium (Protonix Ec Tab) 40 mg PO DAILY [facility] Last Admin: 08/15/17 10:24 Dose: Not Given Pregabalin (Lyrica) 75 mg PO BID [facility] Last Admin: 08/15/17 10:24 Dose: Not Given Sevelamer HCl (Renagel) 800 mg PO TID [facility] Last Admin: 08/15/17 10:24 Dose: Not Given Tamsulosin HCl (Flomax) 0.4 mg PO DAILY [facility] Last Admin: 08/15/17 10:24 Dose: Not Given Vancomycin HCl (Vancocin 25 Mg/Ml (Oral Use)) 250 mg PO Q6 [facility] PRN Reason: Protocol Last Admin: 08/15/17 06:13 Dose: 250 mg Vitamin B Complex/Vit C/Folic Acid (Nephro-Eleni) 1 tab PO 0800 [facility] Last Admin: 08/15/17 08:21 Dose: 1 tab Zolpidem Tartrate (Ambien) 10 mg PO HS PRN; Protocol PRN Reason: Insomnia Last Admin: 08/14/17 21:40 Dose: 10 mg - Labs Labs: 08/15/17 06:45 08/15/17 06:45 PT 13.4 SECONDS (9.4-12.5) H 08/06/17 14:32 INR 1.22 (0.93-1.08) H 08/06/17 14:32 APTT 33.5 Seconds (25.1-36.5) 08/06/17 14:32 - Constitutional Appears: Non-toxic, No Acute Distress - Head Exam Head Exam: ATRAUMATIC, NORMAL INSPECTION, NORMOCEPHALIC - Eye Exam Eye Exam: EOMI, Normal appearance - ENT Exam ENT Exam: Mucous Membranes Moist, Normal Exam - Neck Exam Neck Exam: Full ROM, Normal Inspection - Respiratory Exam Respiratory Exam: Clear to Ausculation Bilateral, NORMAL BREATHING PATTERN. absent: Rhonchi, Wheezes - Cardiovascular Exam Cardiovascular Exam: REGULAR RHYTHM, +S1, +S2 - GI/Abdominal Exam GI & Abdominal Exam: Soft, Normal Bowel Sounds - Extremities Exam Extremities Exam: Full ROM - Back Exam Back Exam: NORMAL INSPECTION - Neurological Exam Neurological Exam: Alert, Awake, Oriented x3 - Psychiatric Exam Psychiatric exam: Normal Affect, Normal Mood - Skin Skin Exam: Intact, Normal Color, Warm Assessment and Plan - Assessment and Plan (Free Text) Assessment: 56 year old male with a past medical history of ESRD (HD TTS), CAD, DM II, CVA, hypertension, dyslipidemia, recently treated for a gram negative bacteremia who presented with 2.5 days of brisk, jet black diarrhea, vomiting, decreased oral intake and feelings of generalized malaise. Plan: 1. Pseudomonas bacteremia likely secondary to infected HD catheter - Temporary HD catheter has been inserted; Perm Cath will be placed by Dr. Cortés tomorrow - Discuss further with Dr. Cohn tomorrow regarding Amikacin with HD - Tylenol 650 mg q6h PRN fever greater than 100.4 F; afebrile since 08/10 - Procal reordered; increased from 59.82 on 08/08 to 135 08/15. - Infectious disease consulted on board will follow through with recommendations - Meropenem 500 mg q24h to be continued for 14 days from the day blood cultures have come back negative. - Repeat blood cultures ordered; results pending - Echocardiogram reveals; normal sized left ventricle, mild concentric left ventricular hypertrophy, normal function, absence of vegetations - Perm cath placement- must delay until results of repeat blood cultures and echo are back. As of now perm cath placement is scheduled for tomorrow 08/16; however if blood cultures return positive, will have to delay perm cath placement further. 2. C. difficile associated diarrhea - Vancomycin 250 mg q6h PO every day for ten total days so 08/09-08/18; currently day 7 3. CAD - Continue Aspirin 81 - Continue Atorvastatin 40 - Continue Isosorbide Mononitrate 60. 4. ESRD - Dr. Garrett on case - Continue with Nephrovite - Sevelamer 800 mg TID - Dialysis Monday, , Monday; receiving dialysis today 5. Hypertension - Hydralazine 10 mg IVP for SBP >160 or DBP >100 - Hydralazine 25 mg TID - Metoprolol 25 mg BID - Losartan 100 mg PO daily - Amlodipine 10 mg PO daily 6. DM II with peripheral neuropathy -ISS medium -Continue Pregabalin 7. Urinary retention - Contact precautions - Patient has Macias - Continue tamsulosin 8. DVT/GI prophylaxis/prevention of healthcare-related illness - Heparin - Protonix - Contact precaution <Lauren Godwin - Last Filed: 08/15/17 16:37> Objective - Vital Signs/Intake and Output Vital Signs (last 24 hours): Temp Pulse Resp BP Pulse Ox 97.5 F L 75 20 170/74 H 95 08/15/17 07:22 08/15/17 07:22 08/15/17 07:22 08/15/17 07:22 08/15/17 07:22 Intake and Output: 08/15/17 08/15/17 06:59 18:59 Intake Total 1380 960 Output Total 1700 700 Balance -320 260 - Medications Medications: Current Medications Acetaminophen (Tylenol 325mg Tab) 650 mg PO Q4H PRN PRN Reason: Temperature Last Admin: 08/10/17 12:12 Dose: 650 mg Amlodipine Besylate (Norvasc) 10 mg PO DAILY [facility] Last Admin: 08/15/17 10:24 Dose: Not Given Aspirin (Ecotrin) 81 mg PO DAILY [facility] Last Admin: 08/15/17 10:24 Dose: Not Given Atorvastatin Calcium (Lipitor) 40 mg PO DIN [facility] Last Admin: 08/14/17 17:23 Dose: 40 mg Heparin Sodium (Porcine) (Heparin) 5,000 units SC Q8 [facility] PRN Reason: Protocol Last Admin: 08/15/17 13:31 Dose: Not Given Hydralazine HCl (Apresoline) 10 mg IVP Q6H PRN PRN Reason: SBP > 160, DBP >100 Last Admin: 08/13/17 06:09 Dose: 10 mg Hydralazine HCl (Apresoline) 50 mg PO BID [facility] Meropenem 500 mg/ Sodium (Chloride) 100 mls @ 100 mls/hr IVPB Q24H [facility] PRN Reason: Protocol Last Admin: 08/14/17 23:00 Dose: 100 mls/hr Insulin Human Regular (Humulin R Med) 0 units SC ACHS [facility] PRN Reason: Protocol Last Admin: 08/15/17 13:30 Dose: 5 units Isosorbide Mononitrate (Imdur) 60 mg PO DAILY [facility] Last Admin: 08/15/17 10:24 Dose: Not Given Losartan Potassium (Cozaar) 100 mg PO DAILY [facility] Last Admin: 08/15/17 10:24 Dose: Not Given Metoprolol Tartrate (Lopressor) 25 mg PO BID [facility] Last Admin: 08/15/17 10:24 Dose: Not Given Ondansetron HCl (Zofran Inj) 4 mg IVP Q4H PRN PRN Reason: Nausea/Vomiting Pantoprazole Sodium (Protonix Ec Tab) 40 mg PO DAILY [facility] Last Admin: 08/15/17 10:24 Dose: Not Given Pregabalin (Lyrica) 75 mg PO BID [facility] Last Admin: 08/15/17 10:24 Dose: Not Given Sevelamer HCl (Renagel) 800 mg PO TID [facility] Last Admin: 08/15/17 13:30 Dose: 800 mg Tamsulosin HCl (Flomax) 0.4 mg PO DAILY [facility] Last Admin: 08/15/17 10:24 Dose: Not Given Vancomycin HCl (Vancocin 25 Mg/Ml (Oral Use)) 250 mg PO Q6 [facility] PRN Reason: Protocol Last Admin: 08/15/17 11:41 Dose: Not Given Vitamin B Complex/Vit C/Folic Acid (Nephro-Eleni) 1 tab PO 0800 [facility] Last Admin: 08/15/17 08:21 Dose: 1 tab Zolpidem Tartrate (Ambien) 10 mg PO HS PRN; Protocol PRN Reason: Insomnia Last Admin: 08/14/17 21:40 Dose: 10 mg - Labs Labs: 08/15/17 06:45 08/15/17 06:45 PT 13.4 SECONDS (9.4-12.5) H 08/06/17 14:32 INR 1.22 (0.93-1.08) H 08/06/17 14:32 APTT 33.5 Seconds (25.1-36.5) 08/06/17 14:32 Attending/Attestation - Attestation I have personally seen and examined this patient.: Yes I have fully participated in the care of the patient.: Yes I have reviewed all pertinent clinical information, including history, physical exam and plan: Yes Notes (Text): 08/15/17 16:13 attending note; patient seen and examined in bed 560. Patient is alert, awake. 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 on IV Meropenem. status post tunnelled catheter removal and new temporary dialysis catheter placement. Blood cultures from 08/12 negative. repeat cultures from 08/14 is pending. Echo is negative for Any vegetations. Plan for tunneled dialysis catheter tomorrow by Dr. Cortés. Patient will get hemodialysis tomorrow. needs outpatient aminoglycoside treatment post dialysis the complete therapy for Pseudomonas bacteremia for at least 4 weeks. C. difficile colitis; continue po vancomycin. Patient has no diarrhea. chronic Macias catheter ; continue to monitor. Upon discharge patient will follow-up with PMD of choice. 08/15/17 16:36
--- NOTE | 2017-08-15 11:59 | CP.PCM.PN ---
Subjective - Date & Time of Evaluation Date of Evaluation: 08/15/17 Time of Evaluation: 10:45 - Subjective Subjective: Infectious Disease Follow Up: August 15, 2017 56 yo male known to me in the distant past presenting with fevers and body chills after dialysis today. His initial presentation was for jet black, brisk diarrhea and concurrent vomiting. The patient apparently completed a treatment for Pseudomonas about a week before admission. Patient is leukopenic and neutropenic at this time. Patient does not know what antibiotic he received in the outpatient setting. Still had a fever tonight. On Vancomycin and Meropenem for treatment at this time. Fever up to 101.2 F over two days ago. Afebrile the past 48 hours. Identification of gram negative rods done. Patient needs change of all indwelling lines. Cultures showing Pseudomonas that was highly sensitive. Multiple cultures positive. 08/12/2017 cultures are negative. 08/14/2017 cultures pending. Maintaining meropenem. PO Vancomycin for C. diff. Remains afebrile and no leukocytosis. Objective - Vital Signs/Intake and Output Vital Signs (last 24 hours): Temp Pulse Resp BP Pulse Ox 97.5 F L 75 20 170/74 H 95 08/15/17 07:22 08/15/17 07:22 08/15/17 07:22 08/15/17 07:22 08/15/17 07:22 Intake and Output: 08/15/17 08/15/17 06:59 18:59 Intake Total 1380 Output Total 1700 Balance -320 - Medications Medications: Current Medications Acetaminophen (Tylenol 325mg Tab) 650 mg PO Q4H PRN PRN Reason: Temperature Last Admin: 08/10/17 12:12 Dose: 650 mg Amlodipine Besylate (Norvasc) 10 mg PO DAILY [facility] Last Admin: 08/15/17 10:24 Dose: Not Given Aspirin (Ecotrin) 81 mg PO DAILY [facility] Last Admin: 08/15/17 10:24 Dose: Not Given Atorvastatin Calcium (Lipitor) 40 mg PO DIN [facility] Last Admin: 08/14/17 17:23 Dose: 40 mg Heparin Sodium (Porcine) (Heparin) 5,000 units SC Q8 [facility] PRN Reason: Protocol Last Admin: 08/15/17 05:59 Dose: 5,000 units Hydralazine HCl (Apresoline) 10 mg IVP Q6H PRN PRN Reason: SBP > 160, DBP >100 Last Admin: 08/13/17 06:09 Dose: 10 mg Hydralazine HCl (Apresoline) 50 mg PO BID [facility] Meropenem 500 mg/ Sodium (Chloride) 100 mls @ 100 mls/hr IVPB Q24H [facility] PRN Reason: Protocol Last Admin: 08/14/17 23:00 Dose: 100 mls/hr Insulin Human Regular (Humulin R Med) 0 units SC ACHS [facility] PRN Reason: Protocol Last Admin: 08/15/17 11:40 Dose: Not Given Isosorbide Mononitrate (Imdur) 60 mg PO DAILY [facility] Last Admin: 08/15/17 10:24 Dose: Not Given Losartan Potassium (Cozaar) 100 mg PO DAILY [facility] Last Admin: 08/15/17 10:24 Dose: Not Given Metoprolol Tartrate (Lopressor) 25 mg PO BID [facility] Last Admin: 08/15/17 10:24 Dose: Not Given Ondansetron HCl (Zofran Inj) 4 mg IVP Q4H PRN PRN Reason: Nausea/Vomiting Pantoprazole Sodium (Protonix Ec Tab) 40 mg PO DAILY [facility] Last Admin: 08/15/17 10:24 Dose: Not Given Pregabalin (Lyrica) 75 mg PO BID [facility] Last Admin: 08/15/17 10:24 Dose: Not Given Sevelamer HCl (Renagel) 800 mg PO TID [facility] Last Admin: 08/15/17 10:24 Dose: Not Given Tamsulosin HCl (Flomax) 0.4 mg PO DAILY [facility] Last Admin: 08/15/17 10:24 Dose: Not Given Vancomycin HCl (Vancocin 25 Mg/Ml (Oral Use)) 250 mg PO Q6 [facility] PRN Reason: Protocol Last Admin: 08/15/17 11:41 Dose: Not Given Vitamin B Complex/Vit C/Folic Acid (Nephro-Eleni) 1 tab PO 0800 [facility] Last Admin: 08/15/17 08:21 Dose: 1 tab Zolpidem Tartrate (Ambien) 10 mg PO HS PRN; Protocol PRN Reason: Insomnia Last Admin: 08/14/17 21:40 Dose: 10 mg - Labs Labs: 08/15/17 06:45 08/15/17 06:45 PT 13.4 SECONDS (9.4-12.5) H 08/06/17 14:32 INR 1.22 (0.93-1.08) H 08/06/17 14:32 APTT 33.5 Seconds (25.1-36.5) 08/06/17 14:32 - Constitutional Appears: Non-toxic, No Acute Distress, Chronically Ill - Head Exam Head Exam: ATRAUMATIC, NORMOCEPHALIC - Eye Exam Eye Exam: EOMI, PERRL Pupil Exam: NORMAL ACCOMODATION, PERRL - ENT Exam ENT Exam: Mucous Membranes Moist, Normal External Ear Exam, TM's Normal Bilaterally - Neck Exam Neck Exam: Full ROM, Normal Inspection - Respiratory Exam Respiratory Exam: Clear to Ausculation Bilateral, NORMAL BREATHING PATTERN. absent: Rales, Rhonchi, Wheezes - Cardiovascular Exam Cardiovascular Exam: REGULAR RHYTHM, RRR, +S1, +S2 - GI/Abdominal Exam GI & Abdominal Exam: Soft, Normal Bowel Sounds. absent: Distended, Tenderness - Extremities Exam Additional comments: right forefoot amputation - Neurological Exam Neurological Exam: Alert, Awake, CN II-XII Intact, Oriented x3 - Psychiatric Exam Psychiatric exam: Normal Affect, Normal Mood - Skin Skin Exam: Dry, Intact Assessment and Plan - Assessment and Plan (Free Text) Assessment: 56 yo male with initial presentation of diarrhea, vomiting, and abdominal pain. The patient developed fevers and leukopenia today. Damon cultures sent. Vancomycin and Meropenem started. Will give a dose of aminoglycoside. Procalcitonin severely elevated at 59. WBC at 6.5. Check influenza titers as well. The patient may need neutropenic precautions. Supportive care. Gram negative rods seen in the blood cultures. Patient with gram negative bacteremia and likely septicemia. Patient with medical history of ESRD on HD, CAD, HTN, and DM. Remains on Meropenem and PO Vancomycin. Last C. Diff partially positive. Would retest C. Diff. Pseudomonas growth in cultures. Maintain Meropenem for treatment. Need two sets of negative cultures before placing new permacath for dialysis. 08/12/2017 cultures negative at 48 hours. 10/15/2016 cultures pending. Thank you for allowing me to participate in the care of the patient, we will follow with you.
--- NOTE | 2017-08-15 12:51 | CP.PCM.PN ---
Subjective - Date & Time of Evaluation Date of Evaluation: 08/15/17 Time of Evaluation: 10:45 - Subjective Subjective: Follow up Nephrology Consultation: Assessment: stable Sepsis with psuedomonas due to permacath infection esophageal ulceration, gastroparesis Nausea/vomitting, diarrhoea ? related to above Diabetic chronic Kidney Disease (E11.22) Hypertensive Chronic Kidney Disease (I12.0) End stage renal disease (N18.6) dependence on hemodialysis (Z99.2) (TTS) Anemia (D64.9), Hyperphosphatemia (E83.39), Secondary Hyperparathyroidism (E21.1 ), HTN (I12.0) CAD s/p CABG chronic urine retention Plan: For HD today as ordered but temp catheter not working well hence treatment stopped early. continue with Nephrovite 1 tab/day. plan for HD tomorrow after permacath Hb fluctuating today 11. getting weekly aranesp Continue with hectorol with dialysis. BP control with meds as ordered. Patient on RAAS anjelica Glycemic control, Dialysis consistent diet Further work up/management as per primary team Dose meds/antibiotics for ESRD status. Avoid fleets enema/magnesium based laxatives. GI, ID following. antibiotics as per ID. started renagel 800 mg TID with meals for high phos pt advised to consider self intermittent catheterization instead of indwelling martinez. as blood cx neg, I think it would be safe to place permacath and remove temp access. Agree with ID plan of aminoglycoside post HD which will ensure compliance and avoid PICC line pt again reinforced not to shower or let catheter get wet with water Thanks for allowing me to participate in care of your patient. Will follow patient with you. Please call if any Qs. d/w team Dr Sancho Garrett Office: [phone] HPI: Pt is a 56 y/o M with hx of ESRD on hemodialysis (TTS) via permacath, last dialysis sat, chronic anemia, hyperphosphatemia, secondary hyperparathyroidism, Diabetes Mellitus, hypertension, urine retention s/p martinez , hx of permacath related infection with psuedomonas and septic embolic, CAD s/ p CABG, esophageal ulceration, gastroparesis came with c/o vomitting as coffee ground and dark stool/loose stool x 2-3 days and being admitted for further work up. he feels better now. GI symptoms has resolved Denies chest pain, palpitation, shortness of breath, leg swelling refuses HD for 4 hrs as ordered, regularly cuts treatment time to 3 hrs only, counselled and educated multiple times Physical Examination: seen on HD General Appearance: comfortable, in no acute respiratory distress, co-operative . Vitals reviewed and noted as below Head; Atraumatic, normocephalic ENT: no ulcers no thrush. Tongue is midline. Oropharynx: no rash or ulcers. EYES: Pupils are equal, round and reactive to light accommodation. Eye muscles and extraocular movement intact. Sclera is anicteric. Neck; supple no lymphadenopathy, no thyromegaly or bruit Lungs: Normal respiratory rate/effort. Breath sounds bilateral equal and clear Heart: Normal rate. s1s2 normal. No rub or gallop. Extremities: no edema. No varicose veins Neurological: Patient is alert, awake and oriented to person, place and time. No focal deficit. Strength bilateral appropriate and equal Skin: Warm and dry. Normal turgor. No rash. Palpitation: Normal elasticity for age Abdomen: Abdomen is soft. Bowel sounds +. There is no abdominal tenderness, no guarding/rigidity or organomegaly Psych: limited insight has normal affect/mood MSK: no joint tenderness or swelling. Digits and nails normal, no deformity. had toe amputations : kidney or bladder not palpable. has chronic martinez Access: permacath Labs/imaging reviewed. Past medical history, past surgical history, family history, social history, allergy reviewed and noted as below Family Hx: no hx of CKD. Non contributory Objective - Vital Signs/Intake and Output Vital Signs (last 24 hours): Temp Pulse Resp BP Pulse Ox 97.5 F L 75 20 170/74 H 95 08/15/17 07:22 08/15/17 07:22 08/15/17 07:22 08/15/17 07:22 08/15/17 07:22 Intake and Output: 08/15/17 08/15/17 06:59 18:59 Intake Total 1380 Output Total 1700 Balance -320 - Medications Medications: Current Medications Acetaminophen (Tylenol 325mg Tab) 650 mg PO Q4H PRN PRN Reason: Temperature Last Admin: 08/10/17 12:12 Dose: 650 mg Amlodipine Besylate (Norvasc) 10 mg PO DAILY [facility] Last Admin: 08/15/17 10:24 Dose: Not Given Aspirin (Ecotrin) 81 mg PO DAILY [facility] Last Admin: 08/15/17 10:24 Dose: Not Given Atorvastatin Calcium (Lipitor) 40 mg PO DIN [facility] Last Admin: 08/14/17 17:23 Dose: 40 mg Heparin Sodium (Porcine) (Heparin) 5,000 units SC Q8 [facility] PRN Reason: Protocol Last Admin: 08/15/17 05:59 Dose: 5,000 units Hydralazine HCl (Apresoline) 10 mg IVP Q6H PRN PRN Reason: SBP > 160, DBP >100 Last Admin: 08/13/17 06:09 Dose: 10 mg Hydralazine HCl (Apresoline) 50 mg PO BID [facility] Meropenem 500 mg/ Sodium (Chloride) 100 mls @ 100 mls/hr IVPB Q24H [facility] PRN Reason: Protocol Last Admin: 08/14/17 23:00 Dose: 100 mls/hr Insulin Human Regular (Humulin R Med) 0 units SC ACHS [facility] PRN Reason: Protocol Last Admin: 08/15/17 11:40 Dose: Not Given Isosorbide Mononitrate (Imdur) 60 mg PO DAILY [facility] Last Admin: 08/15/17 10:24 Dose: Not Given Losartan Potassium (Cozaar) 100 mg PO DAILY [facility] Last Admin: 08/15/17 10:24 Dose: Not Given Metoprolol Tartrate (Lopressor) 25 mg PO BID [facility] Last Admin: 08/15/17 10:24 Dose: Not Given Ondansetron HCl (Zofran Inj) 4 mg IVP Q4H PRN PRN Reason: Nausea/Vomiting Pantoprazole Sodium (Protonix Ec Tab) 40 mg PO DAILY [facility] Last Admin: 08/15/17 10:24 Dose: Not Given Pregabalin (Lyrica) 75 mg PO BID [facility] Last Admin: 08/15/17 10:24 Dose: Not Given Sevelamer HCl (Renagel) 800 mg PO TID [facility] Last Admin: 08/15/17 10:24 Dose: Not Given Tamsulosin HCl (Flomax) 0.4 mg PO DAILY [facility] Last Admin: 08/15/17 10:24 Dose: Not Given Vancomycin HCl (Vancocin 25 Mg/Ml (Oral Use)) 250 mg PO Q6 [facility] PRN Reason: Protocol Last Admin: 08/15/17 11:41 Dose: Not Given Vitamin B Complex/Vit C/Folic Acid (Nephro-Eleni) 1 tab PO 0800 [facility] Last Admin: 08/15/17 08:21 Dose: 1 tab Zolpidem Tartrate (Ambien) 10 mg PO HS PRN; Protocol PRN Reason: Insomnia Last Admin: 08/14/17 21:40 Dose: 10 mg - Labs Labs: 08/15/17 06:45 08/15/17 06:45 PT 13.4 SECONDS (9.4-12.5) H 08/06/17 14:32 INR 1.22 (0.93-1.08) H 08/06/17 14:32 APTT 33.5 Seconds (25.1-36.5) 08/06/17 14:32
--- NOTE | 2017-08-15 14:37 | PN ---
DATE: 08/15/2017 REASON FOR CONSULTATION AND FOLLOWUP: Coronary artery disease, fever, chills,sepsis, episode of diarrhea, status post coronary artery bypass surgery, cardiac evaluation. SUBJECTIVE: The patient denies any chest pain, shortness of breath, or any palpitation. OBJECTIVE: GENERAL: Not in apparent distress. Having breakfast. No further episode of temperature noted. VITAL SIGNS: Blood pressure 170/83. HEENT: PERRLA. Extraocular muscles intact. NECK: Supple. No carotid bruit or thyromegaly. CHEST: Clear to auscultation. HEART: S1 and S2 regular. ABDOMEN: Soft. EXTREMITIES: Clubbing and cyanosis negative. LABORATORY DATA: WBC 7.5, hemoglobin 11, hematocrit 34.1, and platelet count 204. Chemistry shows sodium 132, potassium 4.2, chloride 99, carbon dioxide 20, anion gap of 18, BUN 64, and creatinine 7.8. IMPRESSION: End-stage renal disease, on dialysis; fever; sepsis; peripheral arterial disease; renal failure, status post removal of dialysis catheter. Repeat blood culture negative, initial blood culture grew Pseudomonas aeruginosa. The patient had echocardiography done yesterday, no vegetation noted. is normal. RECOMMENDATION: End-stage renal disease, on dialysis. Repeat echo, yesterday no vegetation noted. Most likely, this infection is from the Port-A-Cath removed. Repeat blood culture, negative. Continue heparin. Also,we will continue metoprolol. We will put hydralazine, increase to 50 b.i.d. to control better blood pressure and put p.r.n. in addition. Corey Mcdermott MD
[2017-08-15] MEDS: Meropenem 500 MG in Sodium Chloride 0.9% 100 ML IVPB SCH (22:16)
[2017-08-16] MEDS: Vancomycin 25 MG/ML PO SCH ×3 (00:08→17:48)
[2017-08-16 07:34] LABS: MEAN CELL VOLUME 86.7 fl (80.0-105.0); MEAN CORPUSCULAR HEMOGLOBIN 28.1 pg (25.0-35.0); MEAN CORPUSCULAR HGB CONC 32.4 g/dl (31.0-37.0); MEAN PLATELET VOLUME 11.2 fl (7.0-11.0); RED CELL DISTRIBUTION WIDTH 16.4 % (11.5-14.5); WHITE BLOOD COUNT 6.4 10^3/ul (4.5-11.0)
[2017-08-16 08:26] LABS: ALB/GLOB RATIO 1.2 (1.1-1.8); BILIRUBIN,TOTAL 0.3 mg/dL (0.2-1.3); CALCIUM 8.9 mg/dL (8.4-10.5); POTASSIUM 4.6 mmol/L (3.6-5.0); TOTAL PROTEIN 6.2 g/dL (5.8-8.3)
[2017-08-16] MEDS: Insulin Reg-MEDIUM-Coverage SC SCH ×4 (08:27→21:46)
[2017-08-16] MEDS: Multivitamin Vitamin B Complex (Nephro-Vite) Tab PO SCH (08:27)
[2017-08-16] MEDS ORDERED: Lidocaine 2% Inj (20ml) ONE ×2 (09:29→09:39)
[2017-08-16] MEDS ORDERED: Midazolam 2 MG/2 ML VIAL ONE ×2 (10:07→10:19)
[2017-08-16] MEDS: Pantoprazole 40 mg EC Tab PO SCH (12:15)
[2017-08-16] MEDS ORDERED: Morphine 2 mg/ml ISec IVP ONE (12:52)
[2017-08-16] MEDS ORDERED: HYDROmorphone 1 mg/ml ISec IVP STA (15:08)
--- NOTE | 2017-08-16 15:37 | CP.PCM.PN ---
Subjective - Date & Time of Evaluation Date of Evaluation: 08/16/17 Time of Evaluation: 15:35 - Subjective Subjective: Follow up Nephrology Consultation: Assessment: stable Sepsis with psuedomonas due to permacath infection esophageal ulceration, gastroparesis Nausea/vomitting, diarrhoea ? related to above Diabetic chronic Kidney Disease (E11.22) Hypertensive Chronic Kidney Disease (I12.0) End stage renal disease (N18.6) dependence on hemodialysis (Z99.2) (TTS) Anemia (D64.9), Hyperphosphatemia (E83.39), Secondary Hyperparathyroidism (E21.1 ), HTN (I12.0) CAD s/p CABG chronic urine retention Plan: continue with Nephrovite 1 tab/day. plan for HD tomorrow Hb fluctuating today 11. getting weekly aranesp Continue with hectorol with dialysis. BP control with meds as ordered. Patient on RAAS anjelica. BP can be labile frequently at times. Glycemic control, Dialysis consistent diet Further work up/management as per primary team Dose meds/antibiotics for ESRD status. Avoid fleets enema/magnesium based laxatives. GI, ID following. antibiotics as per ID. started renagel 800 mg TID with meals for high phos pt advised to consider self intermittent catheterization instead of indwelling martinez. Agree with ID plan of aminoglycoside post HD which will ensure compliance and avoid PICC line pt again reinforced not to shower or let catheter get wet with water d/c plan as per primary team. stable for d/c from renal perspective. Thanks for allowing me to participate in care of your patient. Will follow patient with you. Please call if any Qs. Dr Sancho Garrett Office: [phone] HPI: Pt is a 56 y/o M with hx of ESRD on hemodialysis (TTS) via permacath, last dialysis sat, chronic anemia, hyperphosphatemia, secondary hyperparathyroidism, Diabetes Mellitus, hypertension, urine retention s/p martinez , hx of permacath related infection with psuedomonas and septic embolic, CAD s/ p CABG, esophageal ulceration, gastroparesis came with c/o vomitting as coffee ground and dark stool/loose stool x 2-3 days and being admitted for further work up. he feels better now. GI symptoms has resolved Denies chest pain, palpitation, shortness of breath, leg swelling refuses HD for 4 hrs as ordered, regularly cuts treatment time to 3 hrs only, counselled and educated multiple times c/o neck pain after permacath today Physical Examination: General Appearance: comfortable, in no acute respiratory distress. Vitals reviewed and noted as below Head; Atraumatic, normocephalic ENT: no ulcers no thrush. Tongue is midline. Oropharynx: no rash or ulcers. EYES: Pupils are equal, round and reactive to light accommodation. Eye muscles and extraocular movement intact. Sclera is anicteric. Neck; supple no lymphadenopathy, no thyromegaly or bruit Lungs: Normal respiratory rate/effort. Breath sounds bilateral equal and clear Heart: Normal rate. s1s2 normal. No rub or gallop. Extremities: no edema. No varicose veins Neurological: Patient is alert, awake and oriented to person, place and time. No focal deficit. Strength bilateral appropriate and equal Skin: Warm and dry. Normal turgor. No rash. Palpitation: Normal elasticity for age Abdomen: Abdomen is soft. Bowel sounds +. There is no abdominal tenderness, no guarding/rigidity or organomegaly Psych: limited insight has normal affect/mood MSK: no joint tenderness or swelling. Digits and nails normal, no deformity. had toe amputations : kidney or bladder not palpable. has chronic martinez Access: permacath Labs/imaging reviewed. Past medical history, past surgical history, family history, social history, allergy reviewed and noted as below Family Hx: no hx of CKD. Non contributory Objective - Vital Signs/Intake and Output Vital Signs (last 24 hours): Temp Pulse Resp BP Pulse Ox 97.9 F 74 20 191/84 H 96 08/16/17 11:43 08/16/17 11:43 08/16/17 11:43 08/16/17 12:15 08/16/17 11:43 Intake and Output: 08/16/17 08/16/17 06:59 18:59 Intake Total 240 780 Output Total 600 700 Balance -360 80 - Medications Medications: Current Medications Acetaminophen (Tylenol 325mg Tab) 650 mg PO Q4H PRN PRN Reason: Temperature Last Admin: 08/10/17 12:12 Dose: 650 mg Amlodipine Besylate (Norvasc) 10 mg PO DAILY [facility] Last Admin: 08/16/17 12:15 Dose: 10 mg Aspirin (Ecotrin) 81 mg PO DAILY [facility] Last Admin: 08/16/17 11:29 Dose: Not Given Atorvastatin Calcium (Lipitor) 40 mg PO DIN [facility] Last Admin: 08/15/17 17:06 Dose: 40 mg Heparin Sodium (Porcine) (Heparin) 5,000 units SC Q8 [facility] PRN Reason: Protocol Last Admin: 08/15/17 22:15 Dose: 5,000 units Hydralazine HCl (Apresoline) 10 mg IVP Q6H PRN PRN Reason: SBP > 160, DBP >100 Last Admin: 08/13/17 06:09 Dose: 10 mg Hydralazine HCl (Apresoline) 50 mg PO BID [facility] Last Admin: 08/16/17 11:28 Dose: Not Given Meropenem 500 mg/ Sodium (Chloride) 100 mls @ 100 mls/hr IVPB Q24H [facility] PRN Reason: Protocol Last Admin: 08/15/17 22:16 Dose: 100 mls/hr Insulin Human Regular (Humulin R Med) 0 units SC ACHS [facility] PRN Reason: Protocol Last Admin: 08/16/17 12:15 Dose: 5 units Isosorbide Mononitrate (Imdur) 60 mg PO DAILY [facility] Last Admin: 08/16/17 12:15 Dose: 60 mg Losartan Potassium (Cozaar) 100 mg PO DAILY [facility] Last Admin: 08/16/17 12:16 Dose: 100 mg Metoprolol Tartrate (Lopressor) 25 mg PO BID [facility] Last Admin: 08/16/17 11:29 Dose: Not Given Ondansetron HCl (Zofran Inj) 4 mg IVP Q4H PRN PRN Reason: Nausea/Vomiting Pantoprazole Sodium (Protonix Ec Tab) 40 mg PO DAILY [facility] Last Admin: 08/16/17 12:15 Dose: 40 mg Pregabalin (Lyrica) 75 mg PO BID [facility] Last Admin: 08/16/17 11:29 Dose: Not Given Sevelamer HCl (Renagel) 800 mg PO TID [facility] Last Admin: 08/16/17 13:01 Dose: 800 mg Tamsulosin HCl (Flomax) 0.4 mg PO DAILY [facility] Last Admin: 08/16/17 12:15 Dose: 0.4 mg Vancomycin HCl (Vancocin 25 Mg/Ml (Oral Use)) 250 mg PO Q6 [facility] PRN Reason: Protocol Last Admin: 08/16/17 12:16 Dose: 250 mg Vitamin B Complex/Vit C/Folic Acid (Nephro-Eleni) 1 tab PO 0800 [facility] Last Admin: 08/16/17 08:27 Dose: 1 tab Zolpidem Tartrate (Ambien) 10 mg PO HS PRN; Protocol PRN Reason: Insomnia Last Admin: 08/15/17 21:12 Dose: 10 mg - Labs Labs: 08/16/17 06:45 08/16/17 06:45 PT 13.4 SECONDS (9.4-12.5) H 08/06/17 14:32 INR 1.22 (0.93-1.08) H 08/06/17 14:32 APTT 33.5 Seconds (25.1-36.5) 08/06/17 14:32
--- NOTE | 2017-08-16 16:18 | VASCULAR ---
PROCEDURE: Ultrasound and fluoroscopic tunneled right IJ dialysis catheter. Removed temporary left IJ dialysis CT CLINICAL HISTORY: ESRD. Sepsis. Infected tunneled catheter. Treated with temporary catheter and IV antibiotics. Needs additional tunneled catheter. PHYSICIAN(S): Yousif Cortés M.D. TECHNIQUE: The relative risks and indications for the procedure were explained to the patient and informed written consent obtained. The patient was placed supine on the arteriography table and the right neck/chest was prepped and draped in the usual sterile fashion. 1% Xylocaine was used to anesthetize the skin and soft tissues at the puncture site. Conscious sedation and monitoring were provided throughout the procedure by a nurse. Under direct ultrasound guidance, the rightinternal jugular vein was punctured with a micropuncture set. A 0.035 Glidewire was advanced into the IVC. Sequential dilatation was performed with subsequent placement of a 28cm Shields II catheter with its tip in the right atrium. A retrograde tunnel below the right clavicle was performed. The catheter was trimmed and the hub attached. Both ports aspirate and inject easily. The catheter was flushed and secured. Next the temporary left IJ dialysis catheter was prepped and draped. The sutures were removed and the catheter removed and hemostasis obtained. The patient tolerated the procedure well. IMPRESSION: 1. Ultrasound and fluoroscopically placed right IJ tunneled dialysis catheter. 2. Removed temporary left IJ dialysis catheter
--- NOTE | 2017-08-16 16:37 | CP.PCM.PN ---
Subjective - Date & Time of Evaluation Date of Evaluation: 08/16/17 Time of Evaluation: 15:00 - Subjective Subjective: Infectious Disease Follow Up: August 16, 2017 56 yo male known to me in the distant past presenting with fevers and body chills after dialysis today. His initial presentation was for jet black, brisk diarrhea and concurrent vomiting. The patient apparently completed a treatment for Pseudomonas about a week before admission. Patient is leukopenic and neutropenic at this time. Patient does not know what antibiotic he received in the outpatient setting. Still had a fever tonight. On Vancomycin and Meropenem for treatment at this time. Fever up to 101.2 F on admission. Afebrile the past few days. Identification of gram negative rods done. Patient needs change of all indwelling lines. Cultures showing Pseudomonas that was highly sensitive. Multiple cultures positive. 08/12/2017 cultures are negative. 08/14/2017 cultures pending. Maintaining meropenem. PO Vancomycin for C. diff. Remains afebrile and no leukocytosis. Objective - Vital Signs/Intake and Output Vital Signs (last 24 hours): Temp Pulse Resp BP Pulse Ox 97.9 F 74 20 191/84 H 96 08/16/17 11:43 08/16/17 11:43 08/16/17 11:43 08/16/17 12:15 08/16/17 11:43 Intake and Output: 08/16/17 08/16/17 06:59 18:59 Intake Total 240 780 Output Total 600 700 Balance -360 80 - Medications Medications: Current Medications Acetaminophen (Tylenol 325mg Tab) 650 mg PO Q4H PRN PRN Reason: Temperature Last Admin: 08/10/17 12:12 Dose: 650 mg Amlodipine Besylate (Norvasc) 10 mg PO DAILY [facility] Last Admin: 08/16/17 12:15 Dose: 10 mg Aspirin (Ecotrin) 81 mg PO DAILY [facility] Last Admin: 08/16/17 11:29 Dose: Not Given Atorvastatin Calcium (Lipitor) 40 mg PO DIN [facility] Last Admin: 08/15/17 17:06 Dose: 40 mg Heparin Sodium (Porcine) (Heparin) 5,000 units SC Q8 [facility] PRN Reason: Protocol Last Admin: 08/15/17 22:15 Dose: 5,000 units Hydralazine HCl (Apresoline) 10 mg IVP Q6H PRN PRN Reason: SBP > 160, DBP >100 Last Admin: 08/13/17 06:09 Dose: 10 mg Hydralazine HCl (Apresoline) 50 mg PO BID [facility] Last Admin: 08/16/17 11:28 Dose: Not Given Meropenem 500 mg/ Sodium (Chloride) 100 mls @ 100 mls/hr IVPB Q24H [facility] PRN Reason: Protocol Last Admin: 08/15/17 22:16 Dose: 100 mls/hr Insulin Human Regular (Humulin R Med) 0 units SC ACHS [facility] PRN Reason: Protocol Last Admin: 08/16/17 12:15 Dose: 5 units Isosorbide Mononitrate (Imdur) 60 mg PO DAILY [facility] Last Admin: 08/16/17 12:15 Dose: 60 mg Losartan Potassium (Cozaar) 100 mg PO DAILY [facility] Last Admin: 08/16/17 12:16 Dose: 100 mg Metoprolol Tartrate (Lopressor) 25 mg PO BID [facility] Last Admin: 08/16/17 11:29 Dose: Not Given Ondansetron HCl (Zofran Inj) 4 mg IVP Q4H PRN PRN Reason: Nausea/Vomiting Pantoprazole Sodium (Protonix Ec Tab) 40 mg PO DAILY [facility] Last Admin: 08/16/17 12:15 Dose: 40 mg Pregabalin (Lyrica) 75 mg PO BID [facility] Last Admin: 08/16/17 11:29 Dose: Not Given Sevelamer HCl (Renagel) 800 mg PO TID [facility] Last Admin: 08/16/17 13:01 Dose: 800 mg Tamsulosin HCl (Flomax) 0.4 mg PO DAILY [facility] Last Admin: 08/16/17 12:15 Dose: 0.4 mg Vancomycin HCl (Vancocin 25 Mg/Ml (Oral Use)) 250 mg PO Q6 [facility] PRN Reason: Protocol Last Admin: 08/16/17 12:16 Dose: 250 mg Vitamin B Complex/Vit C/Folic Acid (Nephro-Eleni) 1 tab PO 0800 [facility] Last Admin: 08/16/17 08:27 Dose: 1 tab Zolpidem Tartrate (Ambien) 10 mg PO HS PRN; Protocol PRN Reason: Insomnia Last Admin: 08/15/17 21:12 Dose: 10 mg - Labs Labs: 08/16/17 06:45 08/16/17 06:45 PT 13.4 SECONDS (9.4-12.5) H 08/06/17 14:32 INR 1.22 (0.93-1.08) H 08/06/17 14:32 APTT 33.5 Seconds (25.1-36.5) 08/06/17 14:32 - Constitutional Appears: Non-toxic, No Acute Distress, Chronically Ill - Head Exam Head Exam: ATRAUMATIC, NORMOCEPHALIC - Eye Exam Eye Exam: EOMI, PERRL Pupil Exam: NORMAL ACCOMODATION, PERRL - ENT Exam ENT Exam: Mucous Membranes Moist, Normal External Ear Exam, TM's Normal Bilaterally - Neck Exam Neck Exam: Full ROM, Normal Inspection - Respiratory Exam Respiratory Exam: Clear to Ausculation Bilateral, NORMAL BREATHING PATTERN. absent: Rales, Rhonchi, Wheezes - Cardiovascular Exam Cardiovascular Exam: REGULAR RHYTHM, RRR, +S1, +S2 - GI/Abdominal Exam GI & Abdominal Exam: Soft, Normal Bowel Sounds. absent: Distended, Tenderness - Extremities Exam Additional comments: right forefoot amputation - Neurological Exam Neurological Exam: Alert, Awake, CN II-XII Intact, Oriented x3 - Psychiatric Exam Psychiatric exam: Normal Affect, Normal Mood - Skin Skin Exam: Dry, Intact Assessment and Plan - Assessment and Plan (Free Text) Assessment: 56 yo male with initial presentation of diarrhea, vomiting, and abdominal pain. The patient developed fevers and leukopenia today. Damon cultures sent. Vancomycin and Meropenem started. Will give a dose of aminoglycoside. Procalcitonin severely elevated at 59. WBC at 6.5. Check influenza titers as well. The patient may need neutropenic precautions. Supportive care. Gram negative rods seen in the blood cultures. Patient with gram negative bacteremia and likely septicemia. Patient with medical history of ESRD on HD, CAD, HTN, and DM. Remains on Meropenem and PO Vancomycin. Last C. Diff partially positive. Would retest C. Diff. Pseudomonas growth in cultures. Maintain Meropenem for treatment. Need two sets of negative cultures before placing new permacath for dialysis. 08/12/2017 cultures negative at 48 hours. 08/14/2017 cultures negative at 24 hours. On discharge, can utilize Amikacin 300 mg IV with HD for 5 more doses. Thank you for allowing me to participate in the care of the patient, we will follow with you.
--- NOTE | 2017-08-16 17:33 | CP.PCM.PN ---
Subjective - Date & Time of Evaluation Date of Evaluation: 08/16/17 Time of Evaluation: 13:00 - Subjective Subjective: Patient seen and examined complaining of pain at site of perm cath placement. Discussed with patient that Dr. Cortés would be notified; Denies shortness of breath, chest pain, abdominal pain, fever, chills. Objective - Vital Signs/Intake and Output Vital Signs (last 24 hours): Temp Pulse Resp BP Pulse Ox 97.6 F 77 18 191/89 H 95 08/16/17 17:02 08/16/17 17:02 08/16/17 17:02 08/16/17 17:02 08/16/17 17:02 Intake and Output: 08/16/17 08/16/17 06:59 18:59 Intake Total 240 780 Output Total 600 700 Balance -360 80 - Medications Medications: Current Medications Acetaminophen (Tylenol 325mg Tab) 650 mg PO Q4H PRN PRN Reason: Temperature Last Admin: 08/10/17 12:12 Dose: 650 mg Amlodipine Besylate (Norvasc) 10 mg PO DAILY [facility] Last Admin: 08/16/17 12:15 Dose: 10 mg Aspirin (Ecotrin) 81 mg PO DAILY [facility] Last Admin: 08/16/17 11:29 Dose: Not Given Atorvastatin Calcium (Lipitor) 40 mg PO DIN [facility] Last Admin: 08/15/17 17:06 Dose: 40 mg Heparin Sodium (Porcine) (Heparin) 5,000 units SC Q8 MARYANN PRN Reason: Protocol Last Admin: 08/15/17 22:15 Dose: 5,000 units Hydralazine HCl (Apresoline) 10 mg IVP Q6H PRN PRN Reason: SBP > 160, DBP >100 Last Admin: 08/13/17 06:09 Dose: 10 mg Hydralazine HCl (Apresoline) 50 mg PO BID [facility] Last Admin: 08/16/17 11:28 Dose: Not Given Meropenem 500 mg/ Sodium (Chloride) 100 mls @ 100 mls/hr IVPB Q24H MARYANN PRN Reason: Protocol Last Admin: 08/15/17 22:16 Dose: 100 mls/hr Insulin Human Regular (Humulin R Med) 0 units SC ACHS MARYANN PRN Reason: Protocol Last Admin: 08/16/17 12:15 Dose: 5 units Isosorbide Mononitrate (Imdur) 60 mg PO DAILY [facility] Last Admin: 08/16/17 12:15 Dose: 60 mg Losartan Potassium (Cozaar) 100 mg PO DAILY [facility] Last Admin: 08/16/17 12:16 Dose: 100 mg Metoprolol Tartrate (Lopressor) 25 mg PO BID [facility] Last Admin: 08/16/17 11:29 Dose: Not Given Ondansetron HCl (Zofran Inj) 4 mg IVP Q4H PRN PRN Reason: Nausea/Vomiting Pantoprazole Sodium (Protonix Ec Tab) 40 mg PO DAILY [facility] Last Admin: 08/16/17 12:15 Dose: 40 mg Pregabalin (Lyrica) 75 mg PO BID [facility] Last Admin: 08/16/17 11:29 Dose: Not Given Sevelamer HCl (Renagel) 800 mg PO TID [facility] Last Admin: 08/16/17 13:01 Dose: 800 mg Tamsulosin HCl (Flomax) 0.4 mg PO DAILY [facility] Last Admin: 08/16/17 12:15 Dose: 0.4 mg Vancomycin HCl (Vancocin 25 Mg/Ml (Oral Use)) 250 mg PO Q6 [facility] PRN Reason: Protocol Last Admin: 08/16/17 12:16 Dose: 250 mg Vitamin B Complex/Vit C/Folic Acid (Nephro-Eleni) 1 tab PO 0800 [facility] Last Admin: 08/16/17 08:27 Dose: 1 tab Zolpidem Tartrate (Ambien) 10 mg PO HS PRN; Protocol PRN Reason: Insomnia Last Admin: 08/15/17 21:12 Dose: 10 mg - Labs Labs: 08/16/17 06:45 08/16/17 06:45 PT 13.4 SECONDS (9.4-12.5) H 08/06/17 14:32 INR 1.22 (0.93-1.08) H 08/06/17 14:32 APTT 33.5 Seconds (25.1-36.5) 08/06/17 14:32 - Constitutional Appears: Non-toxic, In Acute Distress - Head Exam Head Exam: ATRAUMATIC, NORMAL INSPECTION, NORMOCEPHALIC - Eye Exam Eye Exam: EOMI, Normal appearance - ENT Exam ENT Exam: Mucous Membranes Moist, Normal Exam - Neck Exam Neck Exam: absent: Full ROM Additional comments: bandaged at site of perm cath placement - Respiratory Exam Respiratory Exam: Clear to Ausculation Bilateral, NORMAL BREATHING PATTERN. absent: Wheezes - Cardiovascular Exam Cardiovascular Exam: REGULAR RHYTHM, +S1, +S2 - GI/Abdominal Exam GI & Abdominal Exam: Soft, Normal Bowel Sounds - Neurological Exam Neurological Exam: Alert, Awake, Oriented x3 - Psychiatric Exam Psychiatric exam: Agitated, Normal Affect - Skin Skin Exam: Intact, Normal Color, Warm Assessment and Plan - Assessment and Plan (Free Text) Assessment: 56 year old male with a past medical history of ESRD (HD TTS), CAD, DM II, CVA, hypertension, dyslipidemia, recently treated for a gram negative bacteremia who presented with 2.5 days of brisk, jet black diarrhea, vomiting, decreased oral intake and feelings of generalized malaise. Plan: 1. Pseudomonas bacteremia likely secondary to infected HD catheter - Perm Cath placed by Dr. Cortés - As per ID, upon discharge can utilize Amikacin 300 mg IV with HD for 5 more doses. - Tylenol 650 mg q6h PRN fever greater than 100.4 F; afebrile since 08/10 - Procal reordered; increased from 59.82 on 08/08 to 135 08/15. - Meropenem 500 mg q24h to be continued for 14 days from the day blood cultures have come back negative. - Repeat blood cultures negative after 24 hours - Echocardiogram reveals; normal sized left ventricle, mild concentric left ventricular hypertrophy, normal function, absence of vegetations 2. C. difficile associated diarrhea - Vancomycin 250 mg q6h PO every day for ten total days so 08/09-08/18; currently day 8 3. CAD - Continue Aspirin 81 - Continue Atorvastatin 40 - Continue Isosorbide Mononitrate 60. 4. ESRD - Dr. Garrett on case - Continue with Nephrovite - Sevelamer 800 mg TID - Dialysis Monday, , Monday; receiving dialysis today 5. Hypertension - Hydralazine 10 mg IVP for SBP >160 or DBP >100 - Hydralazine 25 mg TID - Metoprolol 25 mg BID - Losartan 100 mg PO daily - Amlodipine 10 mg PO daily 6. DM II with peripheral neuropathy -ISS medium -Continue Pregabalin 7. Urinary retention - Contact precautions - Patient has Macias; will discuss with patient regarding possible removal - Continue tamsulosin 8. DVT/GI prophylaxis/prevention of healthcare-related illness - Heparin - Protonix - Contact precaution
--- NOTE | 2017-08-16 18:14 | CP.PCM.PN ---
Subjective - Date & Time of Evaluation Date of Evaluation: 08/16/17 Time of Evaluation: 18:05 - Subjective Subjective: Vascular surgery 56 years old male with hx of ESRD on HD T//S, DM, secondary hyperparathyroidism, CAD, CVA, HLD, HTN, presents for fever, chill, vomiting and diarrhea. Pt was found to have bacteremia secondary to hemodialysis catheter infection. Infected Catheter on R IJ was removed and replaced. Pt recently completed a treatment for Pseudomonas bacteremia about a week before admission. Fever up to 101.2 F on admission. Last HD session was on Monday and is getting HD today. Vascular surgery is consulted to evaluate for permanent hemodiaylsis ascess. Pt reports that he is L handed. Pt is on ABX. Cr was 10.8 trending down to 6.8. PCP: Dr Pink Allergies:seafood Medications: Please see MAR Medical Hx: ESRD on HD T/Th/S, CAD, HTN, DM, peripheral neuropathy, secondanry hyperparaphyroidism Surgical Hx: Stents x 3, CABG, left hip surgery, Left knee surgery, Right foot TMA, cholecystectomy Social Hx: Quit drinking 6 years ago. Previously a chronic abuser, vodka for 30 years. Denies tobacco use. Smokes marijuana 2-3X weekly. Lives alone Family Hx: father, pancreatic cancer Objective - Vital Signs/Intake and Output Vital Signs (last 24 hours): Temp Pulse Resp BP Pulse Ox 97.6 F 78 18 171/92 H 95 08/16/17 17:02 08/16/17 17:33 08/16/17 17:02 08/16/17 17:33 08/16/17 17:02 Intake and Output: 08/16/17 08/16/17 06:59 18:59 Intake Total 240 780 Output Total 600 700 Balance -360 80 - Medications Medications: Current Medications Acetaminophen (Tylenol 325mg Tab) 650 mg PO Q4H PRN PRN Reason: Temperature Last Admin: 08/10/17 12:12 Dose: 650 mg Amlodipine Besylate (Norvasc) 10 mg PO DAILY [facility] Last Admin: 08/16/17 12:15 Dose: 10 mg Aspirin (Ecotrin) 81 mg PO DAILY [facility] Last Admin: 08/16/17 11:29 Dose: Not Given Atorvastatin Calcium (Lipitor) 40 mg PO DIN [facility] Last Admin: 08/16/17 17:33 Dose: 40 mg Heparin Sodium (Porcine) (Heparin) 5,000 units SC Q8 MARYANN PRN Reason: Protocol Last Admin: 08/16/17 14:34 Dose: Not Given Hydralazine HCl (Apresoline) 10 mg IVP Q6H PRN PRN Reason: SBP > 160, DBP >100 Last Admin: 08/13/17 06:09 Dose: 10 mg Hydralazine HCl (Apresoline) 50 mg PO BID [facility] Last Admin: 08/16/17 17:33 Dose: 50 mg Meropenem 500 mg/ Sodium (Chloride) 100 mls @ 100 mls/hr IVPB Q24H MARYANN PRN Reason: Protocol Last Admin: 08/15/17 22:16 Dose: 100 mls/hr Insulin Human Regular (Humulin R Med) 0 units SC ACHS MARYANN PRN Reason: Protocol Last Admin: 08/16/17 17:32 Dose: 1 units Isosorbide Mononitrate (Imdur) 60 mg PO DAILY [facility] Last Admin: 08/16/17 12:15 Dose: 60 mg Losartan Potassium (Cozaar) 100 mg PO DAILY [facility] Last Admin: 08/16/17 12:16 Dose: 100 mg Metoprolol Tartrate (Lopressor) 25 mg PO BID [facility] Last Admin: 08/16/17 17:33 Dose: 25 mg Ondansetron HCl (Zofran Inj) 4 mg IVP Q4H PRN PRN Reason: Nausea/Vomiting Pantoprazole Sodium (Protonix Ec Tab) 40 mg PO DAILY [facility] Last Admin: 08/16/17 12:15 Dose: 40 mg Pregabalin (Lyrica) 75 mg PO BID [facility] Last Admin: 08/16/17 17:33 Dose: 75 mg Sevelamer HCl (Renagel) 800 mg PO TID [facility] Last Admin: 08/16/17 17:33 Dose: 800 mg Tamsulosin HCl (Flomax) 0.4 mg PO DAILY [facility] Last Admin: 08/16/17 12:15 Dose: 0.4 mg Vancomycin HCl (Vancocin 25 Mg/Ml (Oral Use)) 250 mg PO Q6 [facility] PRN Reason: Protocol Last Admin: 08/16/17 12:16 Dose: 250 mg Vitamin B Complex/Vit C/Folic Acid (Nephro-Eleni) 1 tab PO 0800 [facility] Last Admin: 08/16/17 08:27 Dose: 1 tab Zolpidem Tartrate (Ambien) 10 mg PO HS PRN; Protocol PRN Reason: Insomnia Last Admin: 08/15/17 21:12 Dose: 10 mg - Labs Labs: 08/16/17 06:45 08/16/17 06:45 PT 13.4 SECONDS (9.4-12.5) H 08/06/17 14:32 INR 1.22 (0.93-1.08) H 08/06/17 14:32 APTT 33.5 Seconds (25.1-36.5) 08/06/17 14:32 - Constitutional Appears: No Acute Distress - Head Exam Head Exam: ATRAUMATIC, NORMAL INSPECTION, NORMOCEPHALIC - Eye Exam Eye Exam: EOMI, Normal appearance, PERRL Pupil Exam: NORMAL ACCOMODATION, PERRL - ENT Exam ENT Exam: Mucous Membranes Moist, Normal Exam - Neck Exam Neck Exam: Full ROM, Normal Inspection. absent: Lymphadenopathy Additional comments: R HD catheter in place. - Respiratory Exam Respiratory Exam: NORMAL BREATHING PATTERN - Cardiovascular Exam Cardiovascular Exam: REGULAR RHYTHM, +S1, +S2. absent: Murmur - GI/Abdominal Exam GI & Abdominal Exam: Soft, Normal Bowel Sounds. absent: Distended, Tenderness - Extremities Exam Extremities Exam: Full ROM, Normal Capillary Refill. absent: Joint Swelling, Pedal Edema Additional comments: R LE TMA - Back Exam Back Exam: NORMAL INSPECTION - Neurological Exam Neurological Exam: Alert, Awake, CN II-XII Intact, Normal Gait, Oriented x3 - Psychiatric Exam Psychiatric exam: Normal Affect, Normal Mood - Skin Skin Exam: Dry, Intact, Normal Color, Warm Assessment and Plan - Assessment and Plan (Free Text) Assessment: End stage renal disease needing hemodialysis access -OR on Mon for AV Fistula -R arm precaution -NPO aftermidnight on night -Continue hemodialysis with permacath -f/u Vein map -Will obtain consent DW Dr. Perez
--- NOTE | 2017-08-16 21:20 | PN ---
DATE: 08/16/2017 LOCATION: The patient is in room 560, bed 1. REASON FOR CONSULTATION: Followup coronary artery disease, fever, chills, sepsis, episode of diarrhea and vomiting, and status post coronary artery bypass surgery. SUBJECTIVE: The patient is lying flat in bed without any chest pain, shortness of breath, or palpitation. PHYSICAL EXAMINATION: VITAL SIGNS: Blood pressure 171/92, respirations 18, pulse 78, and temperature 97.6. HEENT: Head is normocephalic. Eyes; pupils are normal. Conjunctivae slightly pale. NECK: JVP is low. Carotids are equal. THORAX: AP diameter normal. LUNGS: Clear. CARDIOVASCULAR: S1 and S2. ABDOMEN: Soft and nontender. No organomegaly. Bowel sounds are normal. EXTREMITIES: No clubbing. No cyanosis. LABORATORY DATA: WBC 6.4, hemoglobin 11.0, hematocrit 34.0, and platelets 217. Sodium 135, potassium 4.6, BUN 57, creatinine 6.8, and random glucose 214. AST and ALT normal. Total protein and albumin 3.3. DIAGNOSES: End-stage renal failure, on dialysis; fever; sepsis; Gram-negative rods on blood cultures; peripheral arterial disease; renal failure, status post removal of dialysis catheter; repeat blood cultures on 08/12/2017 and 08/14/2017 were negative; hypertension; coronary artery disease; and history of coronary artery bypass surgery. PLAN: The patient is on hydralazine 50 mg b.i.d., Cozaar 100 mg daily, aspirin 81 mg daily, isosorbide mononitrate 60 mg daily, Lipitor 40 mg daily, metoprolol tartrate 25 b.i.d., Lyrica 75 b.i.d., Merrem IV 500 mg q.24 hours, amlodipine 10 daily, and vancomycin 250 mg p.o. q.6 hourly. Blood pressure still elevated, will increase the metoprolol to 50 mg b.i.d. and monitor blood pressure and we will follow. Corey Shine MD
[2017-08-16] MEDS: Meropenem 500 MG in Sodium Chloride 0.9% 100 ML IVPB SCH (22:52)
[2017-08-17] MEDS: Vancomycin 25 MG/ML PO SCH ×5 (00:02→18:56)
[2017-08-17 06:43] LABS: BASO # 0.04 K/mm3 (0.0-2.0); BASO % 0.8 % (0.0-3.0); EOS # 0.1 (0.0-0.7); EOS % 2.5 % (1.5-5.0); GRAN # 2.93 (1.4-6.5); GRAN % 55.4 % (50.0-68.0); HEMATOCRIT 34.4 % (42.0-52.0); LYMPH # 1.9 (1.2-3.4); LYMPH % 35.3 % (22.0-35.0); MEAN CORPUSCULAR HEMOGLOBIN 28.5 pg (25.0-35.0); MEAN CORPUSCULAR HGB CONC 33.1 g/dl (31.0-37.0); MEAN PLATELET VOLUME 10.5 fl (7.0-11.0); MONO # 0.3 (0.1-0.6); RED CELL DISTRIBUTION WIDTH 16.1 % (11.5-14.5); WHITE BLOOD COUNT 5.3 10^3/ul (4.5-11.0)
[2017-08-17 07:02] LABS: ALB/GLOB RATIO 1.2 (1.1-1.8); BILIRUBIN,TOTAL 0.5 mg/dL (0.2-1.3); CALCIUM 9.3 mg/dL (8.4-10.5); PHOSPHOROUS 7.5 mg/dL (2.5-4.5); POTASSIUM 4.7 mmol/L (3.6-5.0); TOTAL PROTEIN 6.6 g/dL (5.8-8.3)
[2017-08-17] MEDS: Insulin Reg-MEDIUM-Coverage SC SCH ×4 (07:30→22:04)
[2017-08-17] MEDS: Multivitamin Vitamin B Complex (Nephro-Vite) Tab PO SCH ×2 (08:03→10:44)
[2017-08-17] MEDS ORDERED: Amikacin 500 mg/2ml Inj IV ONE (10:23)
[2017-08-17] MEDS: Pantoprazole 40 mg EC Tab PO SCH (10:41)
--- NOTE | 2017-08-17 10:56 | CP.PCM.PN ---
Subjective - Date & Time of Evaluation Date of Evaluation: 08/17/17 Time of Evaluation: 10:30 - Subjective Subjective: Patient seen and examined at bedside in no acute distress. States pain at site of perm cath placement has improved. Is aware of avf placement tomorrow. Denies shortness of breath, chest pain, abdominal pain, nausea, vomiting, diarrhea, dysuria. States he would like for martinez to stay in for now. Objective - Vital Signs/Intake and Output Vital Signs (last 24 hours): Temp Pulse Resp BP Pulse Ox 98.4 F 76 20 160/85 H 97 08/17/17 07:30 08/17/17 10:41 08/17/17 07:30 08/17/17 10:41 08/17/17 07:30 Intake and Output: 08/17/17 08/17/17 06:59 18:59 Intake Total 760 Output Total 1200 Balance -440 - Medications Medications: Current Medications Acetaminophen (Tylenol 325mg Tab) 650 mg PO Q4H PRN PRN Reason: Temperature Last Admin: 08/17/17 10:42 Dose: 650 mg Amlodipine Besylate (Norvasc) 10 mg PO DAILY [facility] Last Admin: 08/17/17 10:41 Dose: 10 mg Aspirin (Ecotrin) 81 mg PO DAILY [facility] Last Admin: 08/17/17 10:40 Dose: 81 mg Atorvastatin Calcium (Lipitor) 40 mg PO DIN [facility] Last Admin: 08/16/17 17:33 Dose: 40 mg Heparin Sodium (Porcine) (Heparin) 5,000 units SC Q8 MARYANN PRN Reason: Protocol Last Admin: 08/17/17 06:16 Dose: Not Given Hydralazine HCl (Apresoline) 10 mg IVP Q6H PRN PRN Reason: SBP > 160, DBP >100 Last Admin: 08/13/17 06:09 Dose: 10 mg Hydralazine HCl (Apresoline) 50 mg PO BID [facility] Last Admin: 08/17/17 10:40 Dose: 50 mg Meropenem 500 mg/ Sodium (Chloride) 100 mls @ 100 mls/hr IVPB Q24H MARYANN PRN Reason: Protocol Last Admin: 08/16/17 22:52 Dose: 100 mls/hr Amikacin Sulfate 300 mg/ (Sodium Chloride) 101.2 mls @ 204 mls/hr IVPB ONCE ONE Stop: 08/17/17 10:59 Amikacin Sulfate 300 mg/ (Sodium Chloride) 101.2 mls @ 204 mls/hr IVPB ONCE ONE Stop: 08/19/17 10:29 Insulin Human Regular (Humulin R Med) 0 units SC ACHS [facility] PRN Reason: Protocol Last Admin: 08/17/17 07:30 Dose: Not Given Isosorbide Mononitrate (Imdur) 60 mg PO DAILY [facility] Last Admin: 08/17/17 10:42 Dose: 60 mg Losartan Potassium (Cozaar) 100 mg PO DAILY [facility] Last Admin: 08/17/17 10:41 Dose: 100 mg Metoprolol Tartrate (Lopressor) 50 mg PO BID [facility] Last Admin: 08/17/17 10:41 Dose: 50 mg Ondansetron HCl (Zofran Inj) 4 mg IVP Q4H PRN PRN Reason: Nausea/Vomiting Pantoprazole Sodium (Protonix Ec Tab) 40 mg PO DAILY [facility] Last Admin: 08/17/17 10:41 Dose: 40 mg Pregabalin (Lyrica) 75 mg PO BID [facility] Last Admin: 08/17/17 10:41 Dose: 75 mg Sevelamer HCl (Renagel) 800 mg PO TID [facility] Last Admin: 08/17/17 10:41 Dose: 800 mg Tamsulosin HCl (Flomax) 0.4 mg PO DAILY [facility] Last Admin: 08/17/17 10:40 Dose: 0.4 mg Vancomycin HCl (Vancocin 25 Mg/Ml (Oral Use)) 250 mg PO Q6 MARYANN PRN Reason: Protocol Last Admin: 08/17/17 10:45 Dose: 250 mg Vitamin B Complex/Vit C/Folic Acid (Nephro-Eelni) 1 tab PO 0800 [facility] Last Admin: 08/17/17 10:44 Dose: 1 tab Zolpidem Tartrate (Ambien) 10 mg PO HS PRN; Protocol PRN Reason: Insomnia Last Admin: 08/16/17 21:44 Dose: 10 mg - Labs Labs: 08/17/17 06:33 08/17/17 06:33 PT 13.4 SECONDS (9.4-12.5) H 08/06/17 14:32 INR 1.22 (0.93-1.08) H 08/06/17 14:32 APTT 33.5 Seconds (25.1-36.5) 08/06/17 14:32 - Constitutional Appears: Non-toxic, No Acute Distress - Head Exam Head Exam: ATRAUMATIC, NORMAL INSPECTION, NORMOCEPHALIC - Eye Exam Eye Exam: EOMI, Normal appearance - ENT Exam ENT Exam: Mucous Membranes Moist, Normal Exam - Respiratory Exam Respiratory Exam: Clear to Ausculation Bilateral, NORMAL BREATHING PATTERN. absent: Wheezes - Cardiovascular Exam Cardiovascular Exam: REGULAR RHYTHM, +S1, +S2 - GI/Abdominal Exam GI & Abdominal Exam: Soft, Normal Bowel Sounds - Extremities Exam Extremities Exam: absent: Calf Tenderness - Back Exam Back Exam: NORMAL INSPECTION - Neurological Exam Neurological Exam: Alert, Awake, Oriented x3 - Psychiatric Exam Psychiatric exam: Normal Affect, Normal Mood - Skin Skin Exam: Intact, Normal Color, Warm Assessment and Plan - Assessment and Plan (Free Text) Assessment: 56 year old male with a past medical history of ESRD (HD TTS), CAD, DM II, CVA, hypertension, dyslipidemia, recently treated for a gram negative bacteremia who presented with 2.5 days of brisk, jet black diarrhea, vomiting, decreased oral intake and feelings of generalized malaise. Plan: 1. Pseudomonas bacteremia likely secondary to infected HD catheter - Perm Cath placed by Dr. Cortés - Amikacin 500 IVPB on HD days started; discussed with Dr. Cohn , recommended patient not going for surgery yet due to infection and abx timing however if patient must go to surgery stated to start Amikacin at least before surgery - Tylenol 650 mg q6h PRN fever greater than 100.4 F; afebrile since 08/10 - Procal reordered; increased from 59.82 on 08/08 to 135 08/15. - Meropenem 500 mg q24h to be continued for 14 days from the day line was removed. - Repeat blood cultures negative after 48 hours - Echocardiogram reveals; normal sized left ventricle, mild concentric left ventricular hypertrophy, normal function, absence of vegetations - Patient NPO after midnight, will have avf placed by Dr. Butt in morning 2. C. difficile associated diarrhea - Vancomycin 250 mg q6h PO every day for ten total days so 08/09-08/18; currently day 9 3. CAD - Continue Aspirin 81 - Continue Atorvastatin 40 - Continue Isosorbide Mononitrate 60. 4. ESRD - Dr. Garrett on case - Continue with Nephrovite - Sevelamer increased to 1600 mg TID - Dialysis Monday, , Monday 5. Hypertension - Hydralazine 10 mg IVP for SBP >160 or DBP >100 - Hydralazine 25 mg TID - Metoprolol 25 mg BID - Losartan 100 mg PO daily - Amlodipine 10 mg PO daily 6. DM II with peripheral neuropathy -ISS medium -Continue Pregabalin 7. Urinary retention - Contact precautions - Patient has Martinez; discussed with patient regarding possible removal, patient states he wants the martinez to stay - Continue tamsulosin 8. DVT/GI prophylaxis/prevention of healthcare-related illness - Heparin - Protonix - Contact precautions
--- NOTE | 2017-08-17 12:33 | CP.PCM.PN ---
Subjective - Date & Time of Evaluation Date of Evaluation: 08/17/17 Time of Evaluation: 12:32 - Subjective Subjective: Surgery Pt getting HD with new catheter. Got Vein map done this AM. Objective - Vital Signs/Intake and Output Vital Signs (last 24 hours): Temp Pulse Resp BP Pulse Ox 98.4 F 76 20 160/85 H 97 08/17/17 07:30 08/17/17 10:41 08/17/17 07:30 08/17/17 10:41 08/17/17 07:30 Intake and Output: 08/17/17 08/17/17 06:59 18:59 Intake Total 760 Output Total 1200 Balance -440 - Medications Medications: Current Medications Acetaminophen (Tylenol 325mg Tab) 650 mg PO Q4H PRN PRN Reason: Temperature Last Admin: 08/17/17 10:42 Dose: 650 mg Amlodipine Besylate (Norvasc) 10 mg PO DAILY [facility] Last Admin: 08/17/17 10:41 Dose: 10 mg Aspirin (Ecotrin) 81 mg PO DAILY [facility] Last Admin: 08/17/17 10:40 Dose: 81 mg Atorvastatin Calcium (Lipitor) 40 mg PO DIN [facility] Last Admin: 08/16/17 17:33 Dose: 40 mg Heparin Sodium (Porcine) (Heparin) 5,000 units SC Q8 [facility] PRN Reason: Protocol Last Admin: 08/17/17 06:16 Dose: Not Given Hydralazine HCl (Apresoline) 10 mg IVP Q6H PRN PRN Reason: SBP > 160, DBP >100 Last Admin: 08/13/17 06:09 Dose: 10 mg Hydralazine HCl (Apresoline) 50 mg PO BID [facility] Last Admin: 08/17/17 10:40 Dose: 50 mg Meropenem 500 mg/ Sodium (Chloride) 100 mls @ 100 mls/hr IVPB Q24H [facility] PRN Reason: Protocol Last Admin: 08/16/17 22:52 Dose: 100 mls/hr Amikacin Sulfate 300 mg/ (Sodium Chloride) 101.2 mls @ 204 mls/hr IVPB ONCE ONE Stop: 08/19/17 10:29 Insulin Human Regular (Humulin R Med) 0 units SC ACHS [facility] PRN Reason: Protocol Last Admin: 08/17/17 07:30 Dose: Not Given Isosorbide Mononitrate (Imdur) 60 mg PO DAILY [facility] Last Admin: 08/17/17 10:42 Dose: 60 mg Losartan Potassium (Cozaar) 100 mg PO DAILY [facility] Last Admin: 08/17/17 10:41 Dose: 100 mg Metoprolol Tartrate (Lopressor) 50 mg PO BID [facility] Last Admin: 08/17/17 10:41 Dose: 50 mg Ondansetron HCl (Zofran Inj) 4 mg IVP Q4H PRN PRN Reason: Nausea/Vomiting Pantoprazole Sodium (Protonix Ec Tab) 40 mg PO DAILY [facility] Last Admin: 08/17/17 10:41 Dose: 40 mg Pregabalin (Lyrica) 75 mg PO BID [facility] Last Admin: 08/17/17 10:41 Dose: 75 mg Sevelamer HCl (Renagel) 1,600 mg PO TID [facility] Tamsulosin HCl (Flomax) 0.4 mg PO DAILY [facility] Last Admin: 08/17/17 10:40 Dose: 0.4 mg Vancomycin HCl (Vancocin 25 Mg/Ml (Oral Use)) 250 mg PO Q6 [facility] PRN Reason: Protocol Last Admin: 08/17/17 10:45 Dose: 250 mg Vitamin B Complex/Vit C/Folic Acid (Nephro-Eleni) 1 tab PO 0800 [facility] Last Admin: 08/17/17 10:44 Dose: 1 tab Zolpidem Tartrate (Ambien) 10 mg PO HS PRN; Protocol PRN Reason: Insomnia Last Admin: 08/16/17 21:44 Dose: 10 mg - Labs Labs: 08/17/17 06:33 08/17/17 06:33 PT 13.4 SECONDS (9.4-12.5) H 08/06/17 14:32 INR 1.22 (0.93-1.08) H 08/06/17 14:32 APTT 33.5 Seconds (25.1-36.5) 08/06/17 14:32 - Constitutional Appears: No Acute Distress - Head Exam Head Exam: ATRAUMATIC, NORMAL INSPECTION, NORMOCEPHALIC - Eye Exam Eye Exam: EOMI, Normal appearance, PERRL Pupil Exam: NORMAL ACCOMODATION, PERRL - ENT Exam ENT Exam: Mucous Membranes Moist, Normal Exam - Neck Exam Neck Exam: Full ROM, Normal Inspection. absent: Lymphadenopathy Additional comments: R IJ permacath in place - Respiratory Exam Respiratory Exam: Clear to Ausculation Bilateral, NORMAL BREATHING PATTERN - Cardiovascular Exam Cardiovascular Exam: REGULAR RHYTHM, +S1, +S2. absent: Murmur - GI/Abdominal Exam GI & Abdominal Exam: Soft, Normal Bowel Sounds. absent: Tenderness - Rectal Exam Rectal Exam: NORMAL INSPECTION - Exam Exam: NORMAL INSPECTION Additional comments: Zafar in place - Extremities Exam Extremities Exam: Full ROM, Normal Capillary Refill, Normal Inspection. absent : Joint Swelling, Pedal Edema - Back Exam Back Exam: NORMAL INSPECTION - Neurological Exam Neurological Exam: Alert, Awake, CN II-XII Intact, Normal Gait, Oriented x3 - Psychiatric Exam Psychiatric exam: Normal Affect, Normal Mood - Skin Skin Exam: Dry, Intact, Normal Color, Warm Assessment and Plan - Assessment and Plan (Free Text) Assessment: End stage renal disease needing hemodialysis access -OR on Fri AM for AV Fistula -R arm precaution -NPO aftermidnight on night -Continue hemodialysis with permacath -f/u Vein map report -Will obtain consent Will DIMA Perez
--- NOTE | 2017-08-17 15:25 | CP.PCM.PN ---
Subjective - Date & Time of Evaluation Date of Evaluation: 08/17/17 Time of Evaluation: 15:24 - Subjective Subjective: Follow up Nephrology Consultation: Assessment: stable Sepsis with psuedomonas due to permacath infection esophageal ulceration, gastroparesis Nausea/vomitting, diarrhoea ? related to above Diabetic chronic Kidney Disease (E11.22) Hypertensive Chronic Kidney Disease (I12.0) End stage renal disease (N18.6) dependence on hemodialysis (Z99.2) (TTS) Anemia (D64.9), Hyperphosphatemia (E83.39), Secondary Hyperparathyroidism (E21.1 ), HTN (I12.0) CAD s/p CABG chronic urine retention Plan: continue with Nephrovite 1 tab/day. plan for HD today as ordered Hb fluctuating today 11.4. getting weekly aranesp Continue with hectorol with dialysis. BP control with meds as ordered. Patient on RAAS anjelica. BP can be labile frequently at times. Glycemic control, Dialysis consistent diet Further work up/management as per primary team Dose meds/antibiotics for ESRD status. Avoid fleets enema/magnesium based laxatives. GI, ID following. antibiotics as per ID. renagel 1600 mg TID with meals for high phos pt advised to consider self intermittent catheterization instead of indwelling martinez. pt again reinforced not to shower or let catheter get wet with water Thanks for allowing me to participate in care of your patient. Will follow patient with you. Please call if any Qs. Dr Sancho Garrett Office: [phone] HPI: Pt is a 56 y/o M with hx of ESRD on hemodialysis (TTS) via permacath, last dialysis sat, chronic anemia, hyperphosphatemia, secondary hyperparathyroidism, Diabetes Mellitus, hypertension, urine retention s/p martinez , hx of permacath related infection with psuedomonas and septic embolic, CAD s/ p CABG, esophageal ulceration, gastroparesis came with c/o vomitting as coffee ground and dark stool/loose stool x 2-3 days and being admitted for further work up. he feels better now. GI symptoms has resolved Denies chest pain, palpitation, shortness of breath, leg swelling refuses HD for 4 hrs as ordered, regularly cuts treatment time to 3 hrs only, counselled and educated multiple times Physical Examination: General Appearance: comfortable, in no acute respiratory distress. Vitals reviewed and noted as below Head; Atraumatic, normocephalic ENT: no ulcers no thrush. Tongue is midline. Oropharynx: no rash or ulcers. EYES: Pupils are equal, round and reactive to light accommodation. Eye muscles and extraocular movement intact. Sclera is anicteric. Neck; supple no lymphadenopathy, no thyromegaly or bruit Lungs: Normal respiratory rate/effort. Breath sounds bilateral equal and clear Heart: Normal rate. s1s2 normal. No rub or gallop. Extremities: no edema. No varicose veins Neurological: Patient is alert, awake and oriented to person, place and time. No focal deficit. Strength bilateral appropriate and equal Skin: Warm and dry. Normal turgor. No rash. Palpitation: Normal elasticity for age Abdomen: Abdomen is soft. Bowel sounds +. There is no abdominal tenderness, no guarding/rigidity or organomegaly Psych: limited insight has normal affect/mood MSK: no joint tenderness or swelling. Digits and nails normal, no deformity. had toe amputations : kidney or bladder not palpable. has chronic martinez Access: permacath Labs/imaging reviewed. Past medical history, past surgical history, family history, social history, allergy reviewed and noted as below Family Hx: no hx of CKD. Non contributory Objective - Vital Signs/Intake and Output Vital Signs (last 24 hours): Temp Pulse Resp BP Pulse Ox 98.4 F 76 20 160/85 H 97 08/17/17 07:30 08/17/17 10:41 08/17/17 07:30 08/17/17 10:41 08/17/17 07:30 Intake and Output: 08/17/17 08/17/17 06:59 18:59 Intake Total 760 Output Total 1200 Balance -440 - Medications Medications: Current Medications Acetaminophen (Tylenol 325mg Tab) 650 mg PO Q4H PRN PRN Reason: Temperature Last Admin: 08/17/17 10:42 Dose: 650 mg Amlodipine Besylate (Norvasc) 10 mg PO DAILY [facility] Last Admin: 08/17/17 10:41 Dose: 10 mg Aspirin (Ecotrin) 81 mg PO DAILY [facility] Last Admin: 08/17/17 10:40 Dose: 81 mg Atorvastatin Calcium (Lipitor) 40 mg PO DIN [facility] Last Admin: 08/16/17 17:33 Dose: 40 mg Heparin Sodium (Porcine) (Heparin) 5,000 units SC Q8 [facility] PRN Reason: Protocol Last Admin: 08/17/17 06:16 Dose: Not Given Hydralazine HCl (Apresoline) 10 mg IVP Q6H PRN PRN Reason: SBP > 160, DBP >100 Last Admin: 08/13/17 06:09 Dose: 10 mg Hydralazine HCl (Apresoline) 50 mg PO BID [facility] Last Admin: 08/17/17 10:40 Dose: 50 mg Meropenem 500 mg/ Sodium (Chloride) 100 mls @ 100 mls/hr IVPB Q24H [facility] PRN Reason: Protocol Last Admin: 08/16/17 22:52 Dose: 100 mls/hr Amikacin Sulfate 300 mg/ (Sodium Chloride) 101.2 mls @ 204 mls/hr IVPB ONCE ONE Stop: 08/19/17 10:29 Insulin Human Regular (Humulin R Med) 0 units SC ACHS [facility] PRN Reason: Protocol Last Admin: 08/17/17 12:31 Dose: 3 units Isosorbide Mononitrate (Imdur) 60 mg PO DAILY [facility] Last Admin: 08/17/17 10:42 Dose: 60 mg Losartan Potassium (Cozaar) 100 mg PO DAILY [facility] Last Admin: 08/17/17 10:41 Dose: 100 mg Metoprolol Tartrate (Lopressor) 50 mg PO BID [facility] Last Admin: 08/17/17 10:41 Dose: 50 mg Ondansetron HCl (Zofran Inj) 4 mg IVP Q4H PRN PRN Reason: Nausea/Vomiting Pantoprazole Sodium (Protonix Ec Tab) 40 mg PO DAILY [facility] Last Admin: 08/17/17 10:41 Dose: 40 mg Pregabalin (Lyrica) 75 mg PO BID [facility] Last Admin: 08/17/17 10:41 Dose: 75 mg Sevelamer HCl (Renagel) 1,600 mg PO TID [facility] Last Admin: 08/17/17 12:29 Dose: 1,600 mg Tamsulosin HCl (Flomax) 0.4 mg PO DAILY [facility] Last Admin: 08/17/17 10:40 Dose: 0.4 mg Vancomycin HCl (Vancocin 25 Mg/Ml (Oral Use)) 250 mg PO Q6 [facility] PRN Reason: Protocol Last Admin: 08/17/17 12:30 Dose: Not Given Vitamin B Complex/Vit C/Folic Acid (Nephro-Eleni) 1 tab PO 0800 [facility] Last Admin: 08/17/17 10:44 Dose: 1 tab Zolpidem Tartrate (Ambien) 10 mg PO HS PRN; Protocol PRN Reason: Insomnia Last Admin: 08/16/17 21:44 Dose: 10 mg - Labs Labs: 08/17/17 06:33 08/17/17 06:33 PT 13.4 SECONDS (9.4-12.5) H 08/06/17 14:32 INR 1.22 (0.93-1.08) H 08/06/17 14:32 APTT 33.5 Seconds (25.1-36.5) 08/06/17 14:32
--- NOTE | 2017-08-17 17:36 | US ---
PROCEDURE: Bilateral upper extremity venous ultrasound HISTORY: End-stage renal disease. Venous mapping for AV fistula placement PHYSICIAN(S): Yousif Cortés MD. TECHNIQUE: FINDINGS: Right upper extremity: Right basilic vein. The right basilic vein at the wrist is large, measuring 5 mm. The right basilic vein is patent and large throughout the right forearm measuring between 5-6 mm. The right basilic vein at the elbow measures 5 mm. The right basilic vein above the elbow measures 5-6 mm. Right cephalic vein. The right cephalic vein at the wrist measures 3 mm. The right cephalic vein in the forearm is large measuring 3-4 mm. The right cephalic vein at the elbow demonstrates chronic superficial thrombophlebitis. The right cephalic vein above the elbow measures 5 mm. Left upper extremity: Left basilic vein. The left basilic vein at the wrist is large, measuring 4 mm. The left basilic vein in the forearm measures 4-5 mm. Acute thrombus is noted in the left basilic vein near the elbow. The left basilic vein above the elbow is large and normal in appearance, measuring 5-7 mm. Left cephalic vein. Left cephalic vein at the wrist measures 3 mm. The left cephalic vein the forearm measures 3-4 mm. The left cephalic vein at the elbow measures 4 mm. The left cephalic vein above the elbow measures 5-6 mm. IMPRESSION: Segmental thrombus in the right cephalic vein at the elbow and the left basilic vein in the forearm and elbow. The left cephalic vein may be the best conduit for fistula formation
--- NOTE | 2017-08-17 18:16 | CP.PCM.PN ---
Subjective - Date & Time of Evaluation Date of Evaluation: 08/17/17 Time of Evaluation: 17:00 - Subjective Subjective: Infectious Disease Follow Up: August 17, 2017 56 yo male known to me in the distant past presenting with fevers and body chills after dialysis today. His initial presentation was for jet black, brisk diarrhea and concurrent vomiting. The patient apparently completed a treatment for Pseudomonas about a week before admission. Patient is leukopenic and neutropenic at this time. Patient does not know what antibiotic he received in the outpatient setting. Still had a fever tonight. On Vancomycin and Meropenem for treatment at this time. Fever up to 101.2 F on admission. Afebrile the past few days. Identification of gram negative rods done. Patient needs change of all indwelling lines. Cultures showing Pseudomonas that was highly sensitive. Multiple cultures positive. 08/12/2017 cultures are negative. 08/14/2017 cultures pending. Maintaining meropenem. PO Vancomycin for C. diff. Remains afebrile and no leukocytosis. Added Amikacin. Potential AV graft placement during this hospitalization. Double coverage for Psudomonas initiated. Objective - Vital Signs/Intake and Output Vital Signs (last 24 hours): Temp Pulse Resp BP Pulse Ox 98.4 F 70 20 134/73 97 08/17/17 07:30 08/17/17 17:14 08/17/17 07:30 08/17/17 17:14 08/17/17 07:30 Intake and Output: 08/17/17 08/17/17 06:59 18:59 Intake Total 760 Output Total 1200 Balance -440 - Medications Medications: Current Medications Acetaminophen (Tylenol 325mg Tab) 650 mg PO Q4H PRN PRN Reason: Temperature Last Admin: 08/17/17 15:30 Dose: 650 mg Amlodipine Besylate (Norvasc) 10 mg PO DAILY [facility] Last Admin: 08/17/17 10:41 Dose: 10 mg Aspirin (Ecotrin) 81 mg PO DAILY [facility] Last Admin: 08/17/17 10:40 Dose: 81 mg Atorvastatin Calcium (Lipitor) 40 mg PO DIN [facility] Last Admin: 08/17/17 17:13 Dose: 40 mg Heparin Sodium (Porcine) (Heparin) 5,000 units SC Q8 [facility] PRN Reason: Protocol Last Admin: 08/17/17 15:30 Dose: 5,000 units Hydralazine HCl (Apresoline) 10 mg IVP Q6H PRN PRN Reason: SBP > 160, DBP >100 Last Admin: 08/13/17 06:09 Dose: 10 mg Hydralazine HCl (Apresoline) 50 mg PO BID [facility] Last Admin: 08/17/17 17:13 Dose: 50 mg Meropenem 500 mg/ Sodium (Chloride) 100 mls @ 100 mls/hr IVPB Q24H [facility] PRN Reason: Protocol Last Admin: 08/16/17 22:52 Dose: 100 mls/hr Amikacin Sulfate 300 mg/ (Sodium Chloride) 101.2 mls @ 204 mls/hr IVPB ONCE ONE Stop: 08/19/17 10:29 Insulin Human Regular (Humulin R Med) 0 units SC ACHS [facility] PRN Reason: Protocol Last Admin: 08/17/17 17:12 Dose: 3 units Isosorbide Mononitrate (Imdur) 60 mg PO DAILY [facility] Last Admin: 08/17/17 10:42 Dose: 60 mg Losartan Potassium (Cozaar) 100 mg PO DAILY [facility] Last Admin: 08/17/17 10:41 Dose: 100 mg Metoprolol Tartrate (Lopressor) 50 mg PO BID [facility] Last Admin: 08/17/17 17:14 Dose: 50 mg Ondansetron HCl (Zofran Inj) 4 mg IVP Q4H PRN PRN Reason: Nausea/Vomiting Pantoprazole Sodium (Protonix Ec Tab) 40 mg PO DAILY [facility] Last Admin: 08/17/17 10:41 Dose: 40 mg Pregabalin (Lyrica) 75 mg PO BID [facility] Last Admin: 08/17/17 17:13 Dose: 75 mg Sevelamer HCl (Renagel) 1,600 mg PO TID [facility] Last Admin: 08/17/17 17:13 Dose: Not Given Tamsulosin HCl (Flomax) 0.4 mg PO DAILY [facility] Last Admin: 08/17/17 10:40 Dose: 0.4 mg Vancomycin HCl (Vancocin 25 Mg/Ml (Oral Use)) 250 mg PO Q6 [facility] PRN Reason: Protocol Last Admin: 08/17/17 12:30 Dose: Not Given Vitamin B Complex/Vit C/Folic Acid (Nephro-Eleni) 1 tab PO 0800 [facility] Last Admin: 08/17/17 10:44 Dose: 1 tab Zolpidem Tartrate (Ambien) 10 mg PO HS PRN; Protocol PRN Reason: Insomnia Last Admin: 08/16/17 21:44 Dose: 10 mg - Labs Labs: 08/17/17 06:33 08/17/17 06:33 PT 13.4 SECONDS (9.4-12.5) H 08/06/17 14:32 INR 1.22 (0.93-1.08) H 08/06/17 14:32 APTT 33.5 Seconds (25.1-36.5) 08/06/17 14:32 - Constitutional Appears: Non-toxic, No Acute Distress, Chronically Ill - Head Exam Head Exam: ATRAUMATIC, NORMOCEPHALIC - Eye Exam Eye Exam: EOMI, PERRL Pupil Exam: NORMAL ACCOMODATION, PERRL - ENT Exam ENT Exam: Mucous Membranes Moist, Normal External Ear Exam, TM's Normal Bilaterally - Neck Exam Neck Exam: Full ROM, Normal Inspection - Respiratory Exam Respiratory Exam: Clear to Ausculation Bilateral, NORMAL BREATHING PATTERN. absent: Rales, Rhonchi, Wheezes - Cardiovascular Exam Cardiovascular Exam: REGULAR RHYTHM, RRR, +S1, +S2 - GI/Abdominal Exam GI & Abdominal Exam: Soft, Normal Bowel Sounds. absent: Distended, Tenderness - Extremities Exam Additional comments: right forefoot amputation - Neurological Exam Neurological Exam: Alert, Awake, CN II-XII Intact, Oriented x3 - Psychiatric Exam Psychiatric exam: Normal Affect, Normal Mood - Skin Skin Exam: Intact, Normal Color Assessment and Plan - Assessment and Plan (Free Text) Assessment: 56 yo male with initial presentation of diarrhea, vomiting, and abdominal pain. The patient developed fevers and leukopenia today. Damon cultures sent. Vancomycin and Meropenem started. Will give a dose of aminoglycoside. Procalcitonin severely elevated at 59. WBC at 6.5. Check influenza titers as well. The patient may need neutropenic precautions. Supportive care. Gram negative rods seen in the blood cultures. Patient with gram negative bacteremia and likely septicemia. Patient with medical history of ESRD on HD, CAD, HTN, and DM. Remains on Meropenem and PO Vancomycin. Last C. Diff partially positive. Would retest C. Diff. Pseudomonas growth in cultures. Maintain Meropenem for treatment. Need two sets of negative cultures before placing new permacath for dialysis. 08/12/2017 cultures negative at 48 hours. 08/14/2017 cultures negative at 24 hours. With consideration of AV Graft placement, we will start Amikacin 300 mg IV with HD in addition to the meropenem treatment. Thank you for allowing me to participate in the care of the patient, we will follow with you.
[2017-08-17] MEDS: Meropenem 500 MG in Sodium Chloride 0.9% 100 ML IVPB SCH (21:30)
--- NOTE | 2017-08-17 22:46 | PN ---
DATE: 08/17/2017 LOCATION: The patient is in room 560, bed 1. REASON FOR CONSULTATION AND FOLLOWUP: Coronary artery disease, fever, chills, sepsis, episode of diarrhea and vomiting, and status post bypass surgery. SUBJECTIVE: The patient denies any chest pain, shortness of breath or palpitation. PHYSICAL EXAMINATION: VITAL SIGNS: Blood pressure is 134/73, respirations 18, pulse 70, and the patient is afebrile. HEENT: Head is normocephalic. Eyes; pupils are normal. Conjunctivae slightly pale. NECK: JVP is low. Carotids are equal. THORAX: AP diameter normal. LUNGS: Clear. CARDIOVASCULAR: S1 and S2. ABDOMEN: Soft and nontender. No organomegaly. EXTREMITIES: No clubbing. No cyanosis. LABORATORY DATA: WBC 5.3, hemoglobin 11.4, hematocrit 34.4, and platelets 206. Sodium 139, potassium 4.7, BUN 67, creatinine 7.8, and random sugar 208. AST and ALT are normal. Total protein and albumin are normal. DIAGNOSES: End-stage renal failure on dialysis,fever, sepsis, gram-negative rods on blood cultures, peripheral vascular disease, renal failure status post removal of dialysis catheter due to infection. Repeat blood cultures on 08/12/2017 and 08/14/2017 were negative. Hypertension, coronary artery disease, and history of bypass surgery. PLAN: The patient is on IV antibiotics as per Infectious Disease. The patient is also getting dialysis as per Renal plus we will continue with the medication. We will follow. Corey Shine MD
[2017-08-18] MEDS: Vancomycin 25 MG/ML PO SCH ×4 (00:14→23:44)
[2017-08-18 07:42] LABS: ALB/GLOB RATIO 1.2 (1.1-1.8); BILIRUBIN,TOTAL 0.5 mg/dL (0.2-1.3); CALCIUM 9.1 mg/dL (8.4-10.5); POTASSIUM 4.4 mmol/L (3.6-5.0); TOTAL PROTEIN 6.3 g/dL (5.8-8.3)
[2017-08-18 07:53] LABS: BASO # 0.04 K/mm3 (0.0-2.0); BASO % 0.9 % (0.0-3.0); EOS # 0.1 (0.0-0.7); EOS % 2.9 % (1.5-5.0); GRAN # 2.27 (1.4-6.5); GRAN % 50.6 % (50.0-68.0); HEMATOCRIT 33.8 % (42.0-52.0); LYMPH # 1.8 (1.2-3.4); LYMPH % 39.3 % (22.0-35.0); MEAN CELL VOLUME 87.6 fl (80.0-105.0); MEAN CORPUSCULAR HEMOGLOBIN 27.7 pg (25.0-35.0); MEAN CORPUSCULAR HGB CONC 31.7 g/dl (31.0-37.0); MONO # 0.3 (0.1-0.6); MONO % 6.3 % (1.0-6.0); RED CELL DISTRIBUTION WIDTH 16.2 % (11.5-14.5); WHITE BLOOD COUNT 4.5 10^3/ul (4.5-11.0)
[2017-08-18] MEDS: Insulin Reg-MEDIUM-Coverage SC SCH ×3 (08:30→22:20)
[2017-08-18] MEDS: Multivitamin Vitamin B Complex (Nephro-Vite) Tab PO SCH (08:31)
[2017-08-18] MEDS ORDERED: Heparin 10,000 Units/ml ONE (09:13)
[2017-08-18] MEDS ORDERED: Bupivacaine 0.5% Inj(30mL) ONE (09:14)
[2017-08-18] MEDS ORDERED: Thrombin Topical 20,000 Intl Units Spray Kit TOP ONE (09:14)
[2017-08-18] MEDS ORDERED: Absorbable Gelatin Sponge Size 100 ONE (09:14)
[2017-08-18] MEDS ORDERED: Lidocaine 1% Inj (20ml) ONE (09:14)
[2017-08-18] MEDS ORDERED: Iohexol 240 (50 ml) ONE (09:14)
[2017-08-18] MEDS ORDERED: Meropenem 500 MG in Sodium Chloride 0.9% 100 ML IVPB ONE (10:00)
[2017-08-18] MEDS ORDERED: Propofol 10 mg/ml Inj (20 ML) ONE (10:20)
[2017-08-18] MEDS ORDERED: Midazolam 2 MG/2 ML VIAL ONE (10:21)
[2017-08-18] MEDS: Pantoprazole 40 mg EC Tab PO SCH (11:15)
[2017-08-18] MEDS ORDERED: Sevoflurane - Inhalation Anesthetic Liq (250 ml) ONE (12:27)
--- NOTE | 2017-08-18 13:12 | PN ---
DATE: 08/18/2017 REASON FOR CONSULTATION AND FOLLOWUP: Coronary artery disease, fever, sepsis, diarrhea, vomiting, status post coronary artery bypass, status post right forefoot amputation, and end-stage renal disease. SUBJECTIVE: The patient denies any chest pain, shortness of breath, or any palpitation, not in apparent distress. PHYSICAL EXAMINATION: VITAL SIGNS: Temperature afebrile, heart rate 82, and blood pressure 134/73. HEENT: PERRLA. Extraocular muscles intact. NECK: Supple. No carotid bruits or thyromegaly. CHEST: Clear to auscultation. HEART: S1 and S2, regular. ABDOMEN: Soft. EXTREMITIES: Clubbing and cyanosis are negative. LABORATORY DATA: Blood workup as follows: WBC 4.5, hemoglobin 10.7, hematocrit 33.8, and platelet count 212. Chemistry shows sodium 130, potassium 4.4, chloride , carbon dioxide 27, anion gap of 16, BUN 46, and creatinine 6.1. IMPRESSION: End-stage renal disease, on dialysis; peripheral artery disease, status post right foot amputation; coronary artery disease; coronary artery bypass grafting; Gram-negative sepsis; repeat blood cultures on 08/12/2017 and 08/14/2017 are negative; hypertension, coronary artery bypass surgery. RECOMMENDATIONS: CVA status is stable. Continue current medication. No further cardiac workup is planned. Possible discharge is planned. Thank you Dr. Ferguson for providing us the opportunity in taking care of the patient. Corey Mcdermott MD
[2017-08-18] MEDS ORDERED: Sodium Chloride 0.9% 1,000 ML IV SCH (13:30)
[2017-08-18] MEDS ORDERED: HYDROmorphone 0.5 mg/0.5 ml ISec IVP PRN (13:30)
--- NOTE | 2017-08-18 13:39 | PCM.SURG1 ---
Surgeon's Initial Post Op Note - Surgeon's Notes Surgeon: Dr. Perez Facility Mechanic: Sami Luong PGY2 Type of Anesthesia: General LMA Pre-Operative Diagnosis: ESRD needing HD access Operative Findings: R adequate size vein. R sclerotic radial artery Post-Operative Diagnosis: Same Operation Performed: R radial artery exploration. R brachio-basilic fistula w basilic transposition Specimen/Specimens Removed: None Estimated Blood Loss: EBL {In ML}: 50 Blood Products Given: N/A Drains Used: No Drains Post-Op Condition: Good Date of Surgery/Procedure: 08/18/17 Time of Surgery/Procedure: 13:41
--- NOTE | 2017-08-18 15:23 | CP.PCM.PN ---
Subjective - Date & Time of Evaluation Date of Evaluation: 08/18/17 Time of Evaluation: 15:20 - Subjective Subjective: Follow up Nephrology Consultation: Assessment: stable Sepsis with psuedomonas due to permacath infection hx of esophageal ulceration, gastroparesis Diabetic chronic Kidney Disease (E11.22) Hypertensive Chronic Kidney Disease (I12.0) End stage renal disease (N18.6) dependence on hemodialysis (Z99.2) (TTS) Anemia (D64.9), Hyperphosphatemia (E83.39), Secondary Hyperparathyroidism (E21.1 ), HTN (I12.0) CAD s/p CABG chronic urine retention Plan: continue with Nephrovite 1 tab/day. plan for HD tomorrow as ordered Hb stable. getting weekly aranesp Continue with hectorol with dialysis. BP control with meds as ordered. Patient on RAAS anjelica. BP can be labile frequently at times. Glycemic control, Dialysis consistent diet Further work up/management as per primary team Dose meds/antibiotics for ESRD status. Avoid fleets enema/magnesium based laxatives. ID following. antibiotics as per ID. renagel 1600 mg TID with meals for high phos pt advised to consider self intermittent catheterization instead of indwelling martinez. pt again reinforced not to shower or let catheter get wet with water d/c plan per primary team. stable from renal perspective Thanks for allowing me to participate in care of your patient. Will follow patient with you. Please call if any Qs. Dr Sancho Garrett Office: [phone] HPI: Pt is a 56 y/o M with hx of ESRD on hemodialysis (TTS) via permacath, last dialysis sat, chronic anemia, hyperphosphatemia, secondary hyperparathyroidism, Diabetes Mellitus, hypertension, urine retention s/p martinez , hx of permacath related infection with psuedomonas and septic embolic, CAD s/ p CABG, esophageal ulceration, gastroparesis came with c/o vomitting as coffee ground and dark stool/loose stool x 2-3 days and being admitted for further work up. he feels better now. GI symptoms has resolved Denies chest pain, palpitation, shortness of breath, leg swelling. s/p AVF today refuses HD for 4 hrs as ordered, regularly cuts treatment time to 3 hrs only, counselled and educated multiple times Physical Examination: General Appearance: comfortable, in no acute respiratory distress. Vitals reviewed and noted as below Head; Atraumatic, normocephalic ENT: no ulcers no thrush. Tongue is midline. Oropharynx: no rash or ulcers. EYES: Pupils are equal, round and reactive to light accommodation. Eye muscles and extraocular movement intact. Sclera is anicteric. Neck; supple no lymphadenopathy, no thyromegaly or bruit Lungs: Normal respiratory rate/effort. Breath sounds bilateral equal and clear Heart: Normal rate. s1s2 normal. No rub or gallop. Extremities: no edema. No varicose veins Neurological: Patient is alert, awake and oriented to person, place and time. No focal deficit. Strength bilateral appropriate and equal Skin: Warm and dry. Normal turgor. No rash. Palpitation: Normal elasticity for age Abdomen: Abdomen is soft. Bowel sounds +. There is no abdominal tenderness, no guarding/rigidity or organomegaly Psych: limited insight has normal affect/mood MSK: no joint tenderness or swelling. Digits and nails normal, no deformity. had toe amputations : kidney or bladder not palpable. has chronic martinez Access: permacath. s/p AVF Labs/imaging reviewed. Past medical history, past surgical history, family history, social history, allergy reviewed and noted as below Family Hx: no hx of CKD. Non contributory Objective - Vital Signs/Intake and Output Vital Signs (last 24 hours): Temp Pulse Resp BP Pulse Ox 98.4 F 77 18 139/82 95 08/18/17 14:15 08/18/17 14:15 08/18/17 14:15 08/18/17 14:15 08/18/17 14:15 Intake and Output: 08/18/17 08/18/17 06:59 18:59 Intake Total 480 250 Output Total 1400 Balance -920 250 - Medications Medications: Current Medications Acetaminophen (Tylenol 325mg Tab) 650 mg PO Q4H PRN PRN Reason: Temperature Last Admin: 08/17/17 21:37 Dose: 650 mg Amlodipine Besylate (Norvasc) 10 mg PO DAILY [facility] Last Admin: 08/18/17 11:15 Dose: Not Given Aspirin (Ecotrin) 81 mg PO DAILY [facility] Last Admin: 08/18/17 11:14 Dose: Not Given Atorvastatin Calcium (Lipitor) 40 mg PO DIN [facility] Last Admin: 08/17/17 17:13 Dose: 40 mg Heparin Sodium (Porcine) (Heparin) 5,000 units SC Q8 [facility] PRN Reason: Protocol Last Admin: 08/18/17 04:59 Dose: Not Given Hydralazine HCl (Apresoline) 10 mg IVP Q6H PRN PRN Reason: SBP > 160, DBP >100 Last Admin: 08/13/17 06:09 Dose: 10 mg Hydralazine HCl (Apresoline) 50 mg PO BID [facility] Last Admin: 08/18/17 11:14 Dose: Not Given Hydromorphone HCl (Dilaudid) 0.5 mg IVP Q15M PRN PRN Reason: Pain, moderate (4-7) Stop: 08/18/17 15:30 Hydromorphone HCl (Dilaudid) 1 mg IVP Q4H PRN PRN Reason: Pain, severe (8-10) Meropenem 500 mg/ Sodium (Chloride) 100 mls @ 100 mls/hr IVPB Q24H [facility] PRN Reason: Protocol Stop: 08/18/17 23:16 Last Admin: 08/17/17 21:30 Dose: 100 mls/hr Amikacin Sulfate 300 mg/ (Sodium Chloride) 101.2 mls @ 204 mls/hr IVPB ONCE ONE Stop: 08/19/17 10:29 Sodium Chloride (Sodium Chloride 0.9%) 1,000 mls @ 5 mls/hr IV .Q24H [facility] Stop: 08/18/17 15:31 Insulin Human Regular (Humulin R Med) 0 units SC ACHS [facility] PRN Reason: Protocol Last Admin: 08/18/17 08:30 Dose: Not Given Isosorbide Mononitrate (Imdur) 60 mg PO DAILY [facility] Last Admin: 08/18/17 11:14 Dose: Not Given Losartan Potassium (Cozaar) 100 mg PO DAILY [facility] Last Admin: 08/18/17 11:14 Dose: Not Given Metoprolol Tartrate (Lopressor) 50 mg PO BID [facility] Last Admin: 08/18/17 09:14 Dose: 50 mg Ondansetron HCl (Zofran Inj) 4 mg IVP Q4H PRN PRN Reason: Nausea/Vomiting Ondansetron HCl (Zofran Inj) 4 mg IVP ONCE PRN PRN Reason: Nausea/Vomiting Pantoprazole Sodium (Protonix Ec Tab) 40 mg PO DAILY [facility] Last Admin: 08/18/17 11:15 Dose: Not Given Pregabalin (Lyrica) 75 mg PO BID [facility] Last Admin: 08/18/17 11:15 Dose: Not Given Sevelamer HCl (Renagel) 1,600 mg PO TID [facility] Last Admin: 08/18/17 11:15 Dose: Not Given Tamsulosin HCl (Flomax) 0.4 mg PO DAILY [facility] Last Admin: 08/18/17 11:14 Dose: Not Given Tramadol HCl (Ultram) 50 mg PO TID PRN PRN Reason: Pain, moderate (4-7) Vancomycin HCl (Vancocin 25 Mg/Ml (Oral Use)) 250 mg PO Q6 [facility] PRN Reason: Protocol Last Admin: 08/18/17 05:00 Dose: Not Given Vitamin B Complex/Vit C/Folic Acid (Nephro-Eleni) 1 tab PO 0800 [facility] Last Admin: 08/18/17 08:31 Dose: Not Given Zolpidem Tartrate (Ambien) 10 mg PO HS PRN; Protocol PRN Reason: Insomnia Last Admin: 08/17/17 21:29 Dose: 10 mg - Labs Labs: 08/18/17 06:20 08/18/17 06:20 PT 13.4 SECONDS (9.4-12.5) H 08/06/17 14:32 INR 1.22 (0.93-1.08) H 08/06/17 14:32 APTT 33.5 Seconds (25.1-36.5) 08/06/17 14:32
[2017-08-18] MEDS: HYDROmorphone 1 mg/ml ISec IVP PRN ×2 (17:26→21:50)
--- NOTE | 2017-08-18 22:01 | CP.PCM.PN ---
Subjective - Date & Time of Evaluation Date of Evaluation: 08/18/17 Time of Evaluation: 20:30 - Subjective Subjective: Infectious Disease Follow Up: August 18, 2017 56 yo male known to me in the distant past presenting with fevers and body chills after dialysis today. His initial presentation was for jet black, brisk diarrhea and concurrent vomiting. The patient apparently completed a treatment for Pseudomonas about a week before admission. Patient is leukopenic and neutropenic at this time. Patient does not know what antibiotic he received in the outpatient setting. Still had a fever tonight. On Vancomycin and Meropenem for treatment at this time. Fever up to 101.2 F on admission. Afebrile the past few days. Identification of gram negative rods done. Patient needs change of all indwelling lines. Cultures showing Pseudomonas that was highly sensitive. Multiple cultures positive. 08/12/2017 cultures are negative. 08/14/2017 cultures pending. Maintaining meropenem. PO Vancomycin for C. diff. Remains afebrile and no leukocytosis. Added Amikacin. Potential AV graft placement during this hospitalization. Double coverage for Psudomonas initiated. AV Graft placed by Dr. Perez today. Objective - Vital Signs/Intake and Output Vital Signs (last 24 hours): Temp Pulse Resp BP Pulse Ox 98.4 F 75 18 147/77 95 08/18/17 14:15 08/18/17 18:36 08/18/17 14:15 08/18/17 18:36 08/18/17 14:15 Intake and Output: 08/18/17 08/19/17 18:59 06:59 Intake Total 250 Balance 250 - Medications Medications: Current Medications Acetaminophen (Tylenol 325mg Tab) 650 mg PO Q4H PRN PRN Reason: Temperature Last Admin: 08/17/17 21:37 Dose: 650 mg Amlodipine Besylate (Norvasc) 10 mg PO DAILY [facility] Last Admin: 08/18/17 11:15 Dose: Not Given Aspirin (Ecotrin) 81 mg PO DAILY [facility] Last Admin: 08/18/17 11:14 Dose: Not Given Atorvastatin Calcium (Lipitor) 40 mg PO DIN [facility] Last Admin: 08/18/17 17:22 Dose: 40 mg Heparin Sodium (Porcine) (Heparin) 5,000 units SC Q8 [facility] PRN Reason: Protocol Last Admin: 08/18/17 04:59 Dose: Not Given Hydralazine HCl (Apresoline) 10 mg IVP Q6H PRN PRN Reason: SBP > 160, DBP >100 Last Admin: 08/13/17 06:09 Dose: 10 mg Hydralazine HCl (Apresoline) 50 mg PO BID [facility] Last Admin: 08/18/17 18:36 Dose: 50 mg Hydromorphone HCl (Dilaudid) 1 mg IVP Q4H PRN PRN Reason: Pain, severe (8-10) Last Admin: 08/18/17 21:50 Dose: 1 mg Meropenem 500 mg/ Sodium (Chloride) 100 mls @ 100 mls/hr IVPB Q24H [facility] PRN Reason: Protocol Stop: 08/18/17 23:16 Last Admin: 08/17/17 21:30 Dose: 100 mls/hr Amikacin Sulfate 500 mg/ (Sodium Chloride) 102 mls @ 204 mls/hr IVPB TUTHSA@ 1200 [facility] PRN Reason: Protocol Insulin Human Regular (Humulin R Med) 0 units SC ACHS [facility] PRN Reason: Protocol Last Admin: 08/18/17 17:25 Dose: 1 units Isosorbide Mononitrate (Imdur) 60 mg PO DAILY [facility] Last Admin: 08/18/17 11:14 Dose: Not Given Losartan Potassium (Cozaar) 100 mg PO DAILY [facility] Last Admin: 08/18/17 11:14 Dose: Not Given Metoprolol Tartrate (Lopressor) 50 mg PO BID [facility] Last Admin: 08/18/17 09:14 Dose: 50 mg Ondansetron HCl (Zofran Inj) 4 mg IVP Q4H PRN PRN Reason: Nausea/Vomiting Ondansetron HCl (Zofran Inj) 4 mg IVP ONCE PRN PRN Reason: Nausea/Vomiting Pantoprazole Sodium (Protonix Ec Tab) 40 mg PO DAILY [facility] Last Admin: 08/18/17 11:15 Dose: Not Given Pregabalin (Lyrica) 75 mg PO BID [facility] Last Admin: 08/18/17 17:22 Dose: 75 mg Sevelamer HCl (Renagel) 1,600 mg PO TID [facility] Last Admin: 08/18/17 17:22 Dose: 1,600 mg Tamsulosin HCl (Flomax) 0.4 mg PO DAILY [facility] Last Admin: 08/18/17 11:14 Dose: Not Given Tramadol HCl (Ultram) 50 mg PO TID PRN PRN Reason: Pain, moderate (4-7) Vancomycin HCl (Vancocin 25 Mg/Ml (Oral Use)) 250 mg PO Q6 [facility] PRN Reason: Protocol Last Admin: 08/18/17 17:24 Dose: 250 mg Vitamin B Complex/Vit C/Folic Acid (Nephro-Eleni) 1 tab PO 0800 [facility] Last Admin: 08/18/17 08:31 Dose: Not Given Zolpidem Tartrate (Ambien) 10 mg PO HS PRN; Protocol PRN Reason: Insomnia Last Admin: 08/17/17 21:29 Dose: 10 mg - Labs Labs: 08/18/17 06:20 08/18/17 06:20 PT 13.4 SECONDS (9.4-12.5) H 08/06/17 14:32 INR 1.22 (0.93-1.08) H 08/06/17 14:32 APTT 33.5 Seconds (25.1-36.5) 08/06/17 14:32 - Constitutional Appears: Non-toxic, No Acute Distress, Chronically Ill - Head Exam Head Exam: ATRAUMATIC, NORMOCEPHALIC - Eye Exam Eye Exam: EOMI, PERRL Pupil Exam: NORMAL ACCOMODATION, PERRL - ENT Exam ENT Exam: Mucous Membranes Moist, Normal External Ear Exam, TM's Normal Bilaterally - Respiratory Exam Respiratory Exam: Clear to Ausculation Bilateral, NORMAL BREATHING PATTERN. absent: Rales, Rhonchi, Wheezes - Cardiovascular Exam Cardiovascular Exam: REGULAR RHYTHM, RRR, +S1, +S2 - GI/Abdominal Exam GI & Abdominal Exam: Soft, Normal Bowel Sounds. absent: Distended, Tenderness - Extremities Exam Extremities Exam: Full ROM, Normal Inspection Additional comments: right forefoot amputation - Neurological Exam Neurological Exam: Alert, Awake, CN II-XII Intact, Oriented x3 - Psychiatric Exam Psychiatric exam: Normal Affect, Normal Mood - Skin Skin Exam: Intact, Normal Color Assessment and Plan - Assessment and Plan (Free Text) Assessment: 56 yo male with initial presentation of diarrhea, vomiting, and abdominal pain. The patient developed fevers and leukopenia today. Damon cultures sent. Vancomycin and Meropenem started. Will give a dose of aminoglycoside. Procalcitonin severely elevated at 59. WBC at 6.5. Check influenza titers as well. The patient may need neutropenic precautions. Supportive care. Gram negative rods seen in the blood cultures. Patient with gram negative bacteremia and likely septicemia. Patient with medical history of ESRD on HD, CAD, HTN, and DM. Remains on Meropenem and PO Vancomycin. Last C. Diff partially positive. Would retest C. Diff. Pseudomonas growth in cultures. Maintain Meropenem for treatment. Need two sets of negative cultures before placing new permacath for dialysis. 08/12/2017 cultures negative at 48 hours. 08/14/2017 cultures negative at 24 hours. With consideration of AV Graft placement, we will continue Amikacin 300 mg IV with HD in addition to the meropenem treatment. AV graft placement done today. Thank you for allowing me to participate in the care of the patient, we will follow with you.
[2017-08-18 22:24] VITALS: RESP 20
--- NOTE | 2017-08-18 23:11 | OP ---
PROCEDURE DATE: 08/18/2017 PREOPERATIVE DIAGNOSES: End-stage renal disease, diabetes, nephropathy, coronary artery bypass grafting, and sepsis. POSTOPERATIVE DIAGNOSES: End-stage renal disease, diabetes, nephropathy, coronary artery bypass grafting, and sepsis. PROCEDURE: Exploration of right radial artery at the wrist, right brachial to basilic arteriovenous fistula with basilic vein translocation. SURGEON: Giselle Perez MD [employer] OPERATOR: Dr. Luong. TYPE OF ANESTHESIA: General. DESCRIPTION OF PROCEDURE: The patient was brought to the OR and placed supine on the OR table. After adequate general anesthesia had been accomplished, the entire right arm and forearm were prepped with Chloraprep and draped out as a sterile field. The patient's cephalic vein is not continuous, also he has a very large basilic vein extending from the elbow to the wrist. We dissected out the basilic vein from just above the wrist to the elbow and it measured approximately 4 to 5 mm in diameter. All branches were ligated with 3-0 silk ties. The vein was reversed and gently dilated with heparinized saline. An incision was made over the radial artery at the wrist and this incision was extended to subcutaneous tissue, the radial artery is heavily calcified, contains no pulse. We elected to dissect out the brachial artery at the antecubital fossa. A transverse incision was made one fingerbreadth below the antecubital fossa. The brachial artery and its branches, the radial and ulnar were dissected out and looped out using vessel loop. The artery was moderately involved with atherosclerosis, but it is not calcified. The basilic vein was then tunneled in a loop fashion up to the brachial artery via multiple incisions. The vein was then trimmed and anastomosed to the brachial artery in an end-to-side fashion of the proximal and distal occlusion of the artery, The anastomosis was performed with 6-0 Prolene continuous suture. Upon completion of the anastomosis, the occlusive tapes were removed, palpable thrill was noticed in the vein. Good hemostasis was assured in all incisions and all incisions were closed in two layers using 3-0 Dexon to subcutaneous tissue and 3-0 Monocryl subcuticular suture for skin. The patient tolerated the procedure well. Prior to leaving the operating room was noted to have a warm hand and an audible bruit. Giselle Perez MD [facility] # [id number]
--- NOTE | 2017-08-18 23:31 | CP.PCM.PN ---
Subjective - Date & Time of Evaluation Date of Evaluation: 08/18/17 Time of Evaluation: 06:00 - Subjective Subjective: Patient seen and examined at bedside in no acute distress. NPO due to surgical procedure later today. Denies shortness of breath, chest pain, abdominal pain, nausea, vomiting, diarrhea. Objective - Vital Signs/Intake and Output Vital Signs (last 24 hours): Temp Pulse Resp BP Pulse Ox 98 F 75 20 147/77 100 08/18/17 16:00 08/18/17 18:36 08/18/17 16:00 08/18/17 18:36 08/18/17 16:00 Intake and Output: 08/18/17 08/19/17 18:59 06:59 Intake Total 250 720 Output Total 600 Balance 250 120 - Medications Medications: Current Medications Acetaminophen (Tylenol 325mg Tab) 650 mg PO Q4H PRN PRN Reason: Temperature Last Admin: 08/17/17 21:37 Dose: 650 mg Amlodipine Besylate (Norvasc) 10 mg PO DAILY [facility] Last Admin: 08/18/17 11:15 Dose: Not Given Aspirin (Ecotrin) 81 mg PO DAILY [facility] Last Admin: 08/18/17 11:14 Dose: Not Given Atorvastatin Calcium (Lipitor) 40 mg PO DIN [facility] Last Admin: 08/18/17 17:22 Dose: 40 mg Heparin Sodium (Porcine) (Heparin) 5,000 units SC Q8 [facility] PRN Reason: Protocol Last Admin: 08/18/17 04:59 Dose: Not Given Hydralazine HCl (Apresoline) 10 mg IVP Q6H PRN PRN Reason: SBP > 160, DBP >100 Last Admin: 08/13/17 06:09 Dose: 10 mg Hydralazine HCl (Apresoline) 50 mg PO BID [facility] Last Admin: 08/18/17 18:36 Dose: 50 mg Hydromorphone HCl (Dilaudid) 1 mg IVP Q4H PRN PRN Reason: Pain, severe (8-10) Last Admin: 08/18/17 21:50 Dose: 1 mg Amikacin Sulfate 500 mg/ (Sodium Chloride) 102 mls @ 204 mls/hr IVPB TUTHSA@ 1200 [facility] PRN Reason: Protocol Insulin Human Regular (Humulin R Med) 0 units SC ACHS [facility] PRN Reason: Protocol Last Admin: 08/18/17 22:20 Dose: Not Given Isosorbide Mononitrate (Imdur) 60 mg PO DAILY [facility] Last Admin: 08/18/17 11:14 Dose: Not Given Losartan Potassium (Cozaar) 100 mg PO DAILY [facility] Last Admin: 08/18/17 11:14 Dose: Not Given Metoprolol Tartrate (Lopressor) 50 mg PO BID [facility] Last Admin: 08/18/17 09:14 Dose: 50 mg Ondansetron HCl (Zofran Inj) 4 mg IVP Q4H PRN PRN Reason: Nausea/Vomiting Ondansetron HCl (Zofran Inj) 4 mg IVP ONCE PRN PRN Reason: Nausea/Vomiting Pantoprazole Sodium (Protonix Ec Tab) 40 mg PO DAILY [facility] Last Admin: 08/18/17 11:15 Dose: Not Given Pregabalin (Lyrica) 75 mg PO BID [facility] Last Admin: 08/18/17 17:22 Dose: 75 mg Sevelamer HCl (Renagel) 1,600 mg PO TID [facility] Last Admin: 08/18/17 17:22 Dose: 1,600 mg Tamsulosin HCl (Flomax) 0.4 mg PO DAILY [facility] Last Admin: 08/18/17 11:14 Dose: Not Given Tramadol HCl (Ultram) 50 mg PO TID PRN PRN Reason: Pain, moderate (4-7) Vancomycin HCl (Vancocin 25 Mg/Ml (Oral Use)) 250 mg PO Q6 [facility] PRN Reason: Protocol Last Admin: 08/18/17 17:24 Dose: 250 mg Vitamin B Complex/Vit C/Folic Acid (Nephro-Eleni) 1 tab PO 0800 [facility] Last Admin: 08/18/17 08:31 Dose: Not Given Zolpidem Tartrate (Ambien) 10 mg PO HS PRN; Protocol PRN Reason: Insomnia Last Admin: 08/17/17 21:29 Dose: 10 mg - Labs Labs: 08/18/17 06:20 08/18/17 06:20 PT 13.4 SECONDS (9.4-12.5) H 08/06/17 14:32 INR 1.22 (0.93-1.08) H 08/06/17 14:32 APTT 33.5 Seconds (25.1-36.5) 08/06/17 14:32 - Constitutional Appears: Non-toxic, No Acute Distress - Head Exam Head Exam: ATRAUMATIC, NORMAL INSPECTION, NORMOCEPHALIC - Eye Exam Eye Exam: EOMI, Normal appearance - ENT Exam ENT Exam: Mucous Membranes Moist, Normal Exam - Neck Exam Neck Exam: Normal Inspection - Respiratory Exam Respiratory Exam: Clear to Ausculation Bilateral, NORMAL BREATHING PATTERN. absent: Wheezes - Cardiovascular Exam Cardiovascular Exam: REGULAR RHYTHM, +S1, +S2 - GI/Abdominal Exam GI & Abdominal Exam: Soft, Normal Bowel Sounds - Extremities Exam Extremities Exam: absent: Calf Tenderness, Pedal Edema, Tenderness - Back Exam Back Exam: NORMAL INSPECTION - Neurological Exam Neurological Exam: Alert, Awake, Oriented x3 - Psychiatric Exam Psychiatric exam: Normal Affect, Normal Mood - Skin Skin Exam: Intact, Normal Color, Warm Assessment and Plan - Assessment and Plan (Free Text) Assessment: 56 year old male with a past medical history of ESRD (HD TTS), CAD, DM II, CVA, hypertension, dyslipidemia, recently treated for a gram negative bacteremia who presented with 2.5 days of brisk, jet black diarrhea, vomiting, decreased oral intake and feelings of generalized malaise. Plan: 1. Pseudomonas bacteremia likely secondary to infected HD catheter - Perm Cath placed by Dr. Cortés, AVF placed by Dr. Perez - Amikacin 500 IVPB on HD days - Repeat blood cultures negative - Echocardiogram reveals; normal sized left ventricle, mild concentric left ventricular hypertrophy, normal function, absence of vegetations 2. C. difficile associated diarrhea - Vancomycin 250 mg q6h PO every day for ten total days completed 3. CAD - Continue Aspirin 81 - Continue Atorvastatin 40 - Continue Isosorbide Mononitrate 60. 4. ESRD - Dr. Garrett on case - Continue with Nephrovite - Sevelamer increased to 1600 mg TID - Dialysis Monday, , Monday 5. Hypertension - Hydralazine 10 mg IVP for SBP >160 or DBP >100 - Hydralazine 25 mg TID - Metoprolol 25 mg BID - Losartan 100 mg PO daily - Amlodipine 10 mg PO daily 6. DM II with peripheral neuropathy -ISS medium -Continue Pregabalin 7. Urinary retention - Contact precautions - Patient has Macias; remove - Continue tamsulosin 8. DVT/GI prophylaxis/prevention of healthcare-related illness - Heparin - Protonix - Contact precautions
[2017-08-18] MEDS: Meropenem 500 MG in Sodium Chloride 0.9% 100 ML IVPB SCH (23:41)
[2017-08-19] MEDS: HYDROmorphone 1 mg/ml ISec IVP PRN ×3 (02:03→11:20)
[2017-08-19] MEDS: Vancomycin 25 MG/ML PO SCH (05:49)
[2017-08-19 07:26] LABS: BASO # 0.04 K/mm3 (0.0-2.0); BASO % 0.7 % (0.0-3.0); EOS # 0.1 (0.0-0.7); EOS % 1.9 % (1.5-5.0); GRAN # 3.85 (1.4-6.5); GRAN % 65.2 % (50.0-68.0); HEMATOCRIT 34.1 % (42.0-52.0); LYMPH # 1.6 (1.2-3.4); LYMPH % 26.3 % (22.0-35.0); MEAN CELL VOLUME 88.8 fl (80.0-105.0); MEAN CORPUSCULAR HEMOGLOBIN 28.1 pg (25.0-35.0); MEAN CORPUSCULAR HGB CONC 31.7 g/dl (31.0-37.0); MEAN PLATELET VOLUME 10.8 fl (7.0-11.0); MONO # 0.4 (0.1-0.6); MONO % 5.9 % (1.0-6.0); RED CELL DISTRIBUTION WIDTH 16.2 % (11.5-14.5); WHITE BLOOD COUNT 5.9 10^3/ul (4.5-11.0)
[2017-08-19] MEDS ORDERED: Doxercalciferol 4 mcg/2 ml Inj IVP SCH (08:00)
[2017-08-19 08:01] LABS: ALB/GLOB RATIO 1.2 (1.1-1.8); BILIRUBIN,TOTAL 0.4 mg/dL (0.2-1.3); CALCIUM 8.9 mg/dL (8.4-10.5); POTASSIUM 4.3 mmol/L (3.6-5.0); TOTAL PROTEIN 6.3 g/dL (5.8-8.3)
[2017-08-19 08:15] VITALS: BP 169/86; PULSE 77; TEMP 98.3; O2SAT 94
--- NOTE | 2017-08-19 08:19 | CP.PCM.PN ---
Subjective - Date & Time of Evaluation Date of Evaluation: 08/19/17 Time of Evaluation: 11:00 - Subjective Subjective: Vascular Surgery Note for Dr. Perez Patient seen and examined at bedside. No acute event overnight. He is s/p R radial artery exploration and R brachial-basilic fistula w basilic transposition POD #1. Patient received dialysis this morning via permacath. Patient is eager and demanding to leave. Primary will discharge today. Patient given instructions. He is to follow up as outpatient within 1 week. Admit to pain in R wrist but denies coldness and numbness/tingling of hand. Patient has no other complaint at this time. Objective - Vital Signs/Intake and Output Vital Signs (last 24 hours): Temp Pulse Resp BP Pulse Ox 98.3 F 77 20 169/86 H 94 L 08/19/17 07:30 08/19/17 07:30 08/19/17 07:30 08/19/17 07:30 08/19/17 07:30 Intake and Output: 08/19/17 08/19/17 06:59 18:59 Intake Total 1300 Output Total 1200 Balance 100 - Medications Medications: Current Medications Acetaminophen (Tylenol 325mg Tab) 650 mg PO Q4H PRN PRN Reason: Temperature Last Admin: 08/17/17 21:37 Dose: 650 mg Amlodipine Besylate (Norvasc) 10 mg PO DAILY [facility] Last Admin: 08/18/17 11:15 Dose: Not Given Aspirin (Ecotrin) 81 mg PO DAILY [facility] Last Admin: 08/18/17 11:14 Dose: Not Given Atorvastatin Calcium (Lipitor) 40 mg PO DIN [facility] Last Admin: 08/18/17 17:22 Dose: 40 mg Doxercalciferol (Hectorol) 3 mcg IVP ONCE [facility] Heparin Sodium (Porcine) (Heparin) 5,000 units SC Q8 [facility] PRN Reason: Protocol Last Admin: 08/19/17 05:46 Dose: 5,000 units Heparin Sodium (Porcine) (Heparin) 2,000 units IVP ONCE [facility] Heparin Sodium (Porcine) (Heparin) 1,400 units ICV ONCE [facility] Hydralazine HCl (Apresoline) 10 mg IVP Q6H PRN PRN Reason: SBP > 160, DBP >100 Last Admin: 08/13/17 06:09 Dose: 10 mg Hydralazine HCl (Apresoline) 50 mg PO BID [facility] Last Admin: 08/18/17 18:36 Dose: 50 mg Hydromorphone HCl (Dilaudid) 1 mg IVP Q4H PRN PRN Reason: Pain, severe (8-10) Last Admin: 08/19/17 06:25 Dose: 1 mg Amikacin Sulfate 500 mg/ (Sodium Chloride) 102 mls @ 204 mls/hr IVPB TUTHSA@ 1200 [facility] PRN Reason: Protocol Insulin Human Regular (Humulin R Med) 0 units SC ACHS [facility] PRN Reason: Protocol Last Admin: 08/18/17 22:20 Dose: Not Given Isosorbide Mononitrate (Imdur) 60 mg PO DAILY [facility] Last Admin: 08/18/17 11:14 Dose: Not Given Losartan Potassium (Cozaar) 100 mg PO DAILY [facility] Last Admin: 08/18/17 11:14 Dose: Not Given Metoprolol Tartrate (Lopressor) 50 mg PO BID [facility] Last Admin: 08/18/17 09:14 Dose: 50 mg Ondansetron HCl (Zofran Inj) 4 mg IVP Q4H PRN PRN Reason: Nausea/Vomiting Ondansetron HCl (Zofran Inj) 4 mg IVP ONCE PRN PRN Reason: Nausea/Vomiting Pantoprazole Sodium (Protonix Ec Tab) 40 mg PO DAILY [facility] Last Admin: 08/18/17 11:15 Dose: Not Given Pregabalin (Lyrica) 75 mg PO BID [facility] Last Admin: 08/18/17 17:22 Dose: 75 mg Sevelamer HCl (Renagel) 1,600 mg PO TID [facility] Last Admin: 08/18/17 17:22 Dose: 1,600 mg Tamsulosin HCl (Flomax) 0.4 mg PO DAILY [facility] Last Admin: 08/18/17 11:14 Dose: Not Given Tramadol HCl (Ultram) 50 mg PO TID PRN PRN Reason: Pain, moderate (4-7) Vancomycin HCl (Vancocin 25 Mg/Ml (Oral Use)) 250 mg PO Q6 [facility] PRN Reason: Protocol Last Admin: 08/19/17 05:49 Dose: 250 mg Vitamin B Complex/Vit C/Folic Acid (Nephro-Eleni) 1 tab PO 0800 [facility] Last Admin: 08/18/17 08:31 Dose: Not Given Zolpidem Tartrate (Ambien) 10 mg PO HS PRN; Protocol PRN Reason: Insomnia Last Admin: 08/17/17 21:29 Dose: 10 mg - Labs Labs: 08/19/17 06:45 08/19/17 06:45 PT 13.4 SECONDS (9.4-12.5) H 08/06/17 14:32 INR 1.22 (0.93-1.08) H 08/06/17 14:32 APTT 33.5 Seconds (25.1-36.5) 08/06/17 14:32 - Constitutional Appears: No Acute Distress, Older Than Stated Age - Head Exam Head Exam: ATRAUMATIC, NORMOCEPHALIC - Eye Exam Eye Exam: EOMI, Normal appearance Pupil Exam: Fixed - ENT Exam ENT Exam: Mucous Membranes Moist - Neck Exam Additional comments: R IJ permacath - Respiratory Exam Respiratory Exam: NORMAL BREATHING PATTERN - Cardiovascular Exam Cardiovascular Exam: REGULAR RHYTHM - GI/Abdominal Exam GI & Abdominal Exam: Soft. absent: Tenderness - Extremities Exam Additional comments: RUE: normal temperature, radial pulse present, no signs of edema or erythema, 5/ 5 strength, dressing clean/dry/intact RUE AVF with palpable thrill and audible bruit - Neurological Exam Neurological Exam: Alert, Awake, Oriented x3 - Psychiatric Exam Psychiatric exam: Anxious - Skin Skin Exam: Dry, Intact, Normal Color, Warm Assessment and Plan - Assessment and Plan (Free Text) Plan: 56 M with ESRD requiring HD is s/p R radial artery exploration and R brachial- basilic fistula with basilic transposition POD #1 -Keep area clean/dry/intact -May shower but do not get dressing wet or soak -Continue Dialysis via Permacath - RUE AVF needs 6 weeks to mature -Follow up with Dr. Perez as outpatient within 1 week of discharge -Patient clear for discharge from surgical standpoint -Will discuss with Dr. Chris Fernandez PGY1
[2017-08-19] MEDS ORDERED: Amikacin 500 mg/2ml Inj IV ONE (10:23)
[2017-08-19] MEDS: Insulin Reg-MEDIUM-Coverage SC SCH (11:24)
[2017-08-19] MEDS: Multivitamin Vitamin B Complex (Nephro-Vite) Tab PO SCH (11:25)
[2017-08-19] MEDS: Pantoprazole 40 mg EC Tab PO SCH (11:26)
--- NOTE | 2017-08-19 14:59 | CP.PCM.DIS ---
Provider - Provider Date of Admission: 08/06/17 16:10 Attending physician: Corey Moore MD Primary care physician: Mercedez Parekh MD Consults: Cardiology: Dr. Shine Nephrology: Dr. Garrett Infectious Disease: Dr. Cohn Interventional Radiology: Dr. Yousif Cortés Vascular Surgery: Dr. Perez Time Spent in preparation of Discharge (in minutes): 45 Diagnosis - Discharge Diagnosis (1) Coronary artery bypass grafts x 3 Status: Chronic Priority: High (2) CVA (cerebral vascular accident) Status: Chronic Priority: High (3) Sepsis Status: Acute Priority: High (4) Upper GI bleeding Status: Acute Priority: High (5) Diabetes mellitus type 2 Status: Chronic Priority: Medium (6) ESRD on dialysis Status: Chronic Priority: High Hospital Course - Lab Results Lab Results: Micro Results 08/18/17 09:46 Nose MRSA Culture (Admit) - Final MRSA NOT DETECTED 08/14/17 18:27 Blood-Venous Blood Culture - Preliminary NO GROWTH AFTER 4 DAYS 08/14/17 18:27 Blood-Venous Blood Culture - Preliminary NO GROWTH AFTER 4 DAYS 08/12/17 13:30 Blood-Venous Blood Culture - Final NO GROWTH AFTER 5 DAYS 08/12/17 13:30 Blood-Venous Gram Stain - Final TEST NOT PERFORMED 08/12/17 11:20 Blood-Venous Blood Culture - Final NO GROWTH AFTER 5 DAYS 08/12/17 11:20 Blood-Venous Gram Stain - Final TEST NOT PERFORMED 08/10/17 10:20 Blood-During Dialysis Blood Culture - Final Pseudomonas Aeruginosa 08/10/17 10:20 Blood-During Dialysis Gram Stain - Final 08/10/17 09:15 Blood-During Dialysis S.aureus & Coag-Neg Staph PNA FISH - Final 08/10/17 09:15 Blood-During Dialysis Blood Culture - Final Pseudomonas Aeruginosa Coagulase Neg Staphylococcus 08/10/17 09:15 Blood-During Dialysis Gram Stain - Final 08/11/17 18:21 Catheter Tip Catheter Tip Culture - Final Pseudomonas Aeruginosa 08/08/17 11:10 Blood-Venous Blood Culture - Final Pseudomonas Aeruginosa 08/08/17 11:10 Blood-Venous Gram Stain - Final 08/08/17 11:20 Blood-Venous Blood Culture - Final Pseudomonas Aeruginosa 08/08/17 11:20 Blood-Venous Gram Stain - Final 08/09/17 02:30 Urine,Macias Urine Culture - Final MULTIPLE SPECIES. SUGGEST REPEAT SPECIMEN. 08/07/17 15:23 Stool Stool Culture - Final NO SALMONELLA, SHIGELLA OR CAMPYLOBACTER ISOLATED. 08/07/17 15:23 Stool C. difficile Antigen & Toxin A,B (M - Final Most Recent Lab Values WBC 5.9 10^3/ul (4.5-11.0) D 08/19/17 06:45 RBC 3.84 10^6/uL (3.5-6.1) 08/19/17 06:45 Hgb 10.8 g/dL (14.0-18.0) L 08/19/17 06:45 Hct 34.1 % (42.0-52.0) L 08/19/17 06:45 MCV 88.8 fl (80.0-105.0) 08/19/17 06:45 MCH 28.1 pg (25.0-35.0) 08/19/17 06:45 MCHC 31.7 g/dl (31.0-37.0) 08/19/17 06:45 RDW 16.2 % (11.5-14.5) H 08/19/17 06:45 Plt Count 213 10^3/uL (120.0-450.0) 08/19/17 06:45 MPV 10.8 fl (7.0-11.0) 08/19/17 06:45 Gran % 65.2 % (50.0-68.0) 08/19/17 06:45 Lymph % (Auto) 26.3 % (22.0-35.0) 08/19/17 06:45 Cavalier % (Auto) 5.9 % (1.0-6.0) 08/19/17 06:45 Eos % (Auto) 1.9 % (1.5-5.0) 08/19/17 06:45 Baso % (Auto) 0.7 % (0.0-3.0) 08/19/17 06:45 Gran # 3.85 (1.4-6.5) 08/19/17 06:45 Lymph # 1.6 (1.2-3.4) 08/19/17 06:45 Cavalier # 0.4 (0.1-0.6) 08/19/17 06:45 Eos # 0.1 (0.0-0.7) 08/19/17 06:45 Baso # 0.04 K/mm3 (0.0-2.0) 08/19/17 06:45 PT 13.4 SECONDS (9.4-12.5) H 08/06/17 14:32 INR 1.22 (0.93-1.08) H 08/06/17 14:32 APTT 33.5 Seconds (25.1-36.5) 08/06/17 14:32 Sodium 137 mmol/L (132-148) 08/19/17 06:45 Potassium 4.3 mmol/L (3.6-5.0) 08/19/17 06:45 Chloride 98 mmol/L (98-107) 08/19/17 06:45 Carbon Dioxide 25 mmol/L (21-33) 08/19/17 06:45 Anion Gap 18 (10-20) 08/19/17 06:45 BUN 57 mg/dL (7-21) H 08/19/17 06:45 Creatinine 7.4 mg/dl (0.8-1.5) H* D 08/19/17 06:45 Est GFR ( Amer) 9 08/19/17 06:45 Est GFR (Non-Af Amer) 8 08/19/17 06:45 POC Glucose (mg/dL) 183 mg/dL (65-110) H 08/19/17 11:16 Random Glucose 213 mg/dL (70-110) H 08/19/17 06:45 Lactic Acid 2.5 mmol/L (0.7-2.1) H 08/08/17 20:16 Calcium 8.9 mg/dL (8.4-10.5) 08/19/17 06:45 Phosphorus 7.5 mg/dL (2.5-4.5) H 08/17/17 06:33 Magnesium 2.0 mg/dL (1.7-2.2) 08/17/17 06:33 Total Bilirubin 0.4 mg/dL (0.2-1.3) 08/19/17 06:45 AST 24 U/L (17-59) 08/19/17 06:45 ALT 37 U/L (7-56) 08/19/17 06:45 Alkaline Phosphatase 109 U/L (38-126) 08/19/17 06:45 Troponin I 0.07 ng/mL 08/07/17 06:15 Total Protein 6.3 g/dL (5.8-8.3) 08/19/17 06:45 Albumin 3.5 g/dL (3.0-4.8) 08/19/17 06:45 Globulin 2.9 gm/dL 08/19/17 06:45 Albumin/Globulin Ratio 1.2 (1.1-1.8) 08/19/17 06:45 Lipase 58 U/L (23-300) 08/06/17 14:32 Procalcitonin 134.94 NG/ML (0.19-0.49) H 08/14/17 18:27 Urine Color Yellow (YELLOW) 08/09/17 02:30 Urine Appearance Sl cloudy (CLEAR) 08/09/17 02:30 Urine pH 8.0 (4.7-8.0) 08/09/17 02:30 Ur Specific [place] 1.010 (1.005-1.035) 08/09/17 02:30 Urine Protein 100 mg/dL (<30 mg/dL) H 08/09/17 02:30 Urine Glucose (UA) 250 mg/dL (NEGATIVE) H 08/09/17 02:30 Urine Ketones Negative mg/dL (NEGATIVE) 08/09/17 02:30 Urine Blood Moderate (NEGATIVE) H 08/09/17 02:30 Urine Nitrate Negative (NEGATIVE) 08/09/17 02:30 Urine Bilirubin Negative (NEGATIVE) 08/09/17 02:30 Urine Urobilinogen 0.2 E.U./dL (<1 E.U./dL) 08/09/17 02:30 Ur Leukocyte Esterase Large Zarina/uL (NEGATIVE) H 08/09/17 02:30 Urine RBC 1 - 3 /hpf (0-2) 08/09/17 02:30 Urine WBC 25 - 30 /hpf (0-6) 08/09/17 02:30 Ur Epithelial Cells 0 - 2 /hpf (0-5) 08/09/17 02:30 Urine Bacteria Few (NEG) 08/09/17 02:30 Stool Fat, Qual See note 08/07/17 14:40 Stool Sodium 34.10 mEq/L 08/07/17 14:40 Stool Potassium 60 mEq/L 08/07/17 14:40 Stool Chloride 15 mEq/L 08/07/17 14:40 Blood Type A POSITIVE 08/06/17 17:21 Antibody Screen Negative 08/06/17 17:21 BBK History Checked Patient has bt 08/06/17 17:21 - Hospital Course Hospital Course: Patient is a 56 year old male with a past medical history of ESRD on HD, DM II, CAD, CVA, dyslipidemia who presented to [facility] with 2.5 days of having jet black, brisk diarrhea and concurrent vomiting. During course of hospital stay, symptoms improved. Advancement of diet was tolerated. During dialysis patient experienced an episode in which he started shaking toward end and continued after; found to have temp 102, pulse 102, BP 200/79, WBC 1.3; code sepsis called ; lactic acid 2.0, CXR normal. Gave BP meds that he missed this morning while at dialysis; started vanc; waiting on cultures, procalcitonin, UA. Diarrhea resolved; C diff showed positive antigen/neg toxin. Continued with current antibiotics. Source of fevers during dialysis was found to be due to port cath infection with pseudomonas. Due to Pseudomonas bactermia, HD catheter was removed and new catheter inserted, patient afebrile during dialysis. Needs to be on Meropenem for 14 days once blood culture return back negative, Vancomycin q6h every day until last dose on 08/19. Echocardiogram ordered showed no signs of endocarditis, As per Go Amikacin after HD for further treatment of infection. Patient was cleared for perm cath placement by interventional radiology as well as av fistula placement by vascular surgery due to repeat cultures neg as well as echo negative. Patient was then discharged with new prescriptions which he requested and instructions to follow up with the specialists. Case reviewed and discussed with Dr. Kellogg Discharge Exam - Head Exam Head Exam: ATRAUMATIC, NORMAL INSPECTION, NORMOCEPHALIC - Eye Exam Eye Exam: EOMI, Normal appearance Pupil Exam: NORMAL ACCOMODATION, PERRL - ENT Exam ENT Exam: Mucous Membranes Dry, Mucous Membranes Moist - Respiratory Exam Respiratory Exam: NORMAL BREATHING PATTERN, UNREMARKABLE - Cardiovascular Exam Cardiovascular Exam: REGULAR RHYTHM, +S1, +S2 - GI/Abdominal Exam GI & Abdominal Exam: Normal Bowel Sounds, Unremarkable - Back Exam Back exam: NORMAL INSPECTION - Neurological Exam Neurological exam: Alert, CN II-XII Intact, Oriented x3 - Psychiatric Exam Psychiatric exam: Normal Affect, Normal Mood - Skin Skin Exam: Intact, Normal Color, Warm Discharge Plan - Discharge Medications Prescriptions: oxyCODONE/Acetaminophen [Percocet 5/325 mg Tab] 1 ea PO Q6 #9 tab - Follow Up Plan Condition: STABLE Disposition: HOME/ ROUTINE Instructions: Gastrointestinal Bleeding (DC), Pneumococcal Vaccine for Adults ( DC), Hemodialysis (DC), Dialysis Diet (DC), Macias Catheter Placement and Care ( DC), Influenza Vaccine (DC), Acute Nausea and Vomiting (DC) Additional Instructions: 1. Follow up with PMD of choice in 3-5 days. 2. Follow up with regular dialysis schedule Monday. 3. Continue Amikacin after each dialysis. 5. Follow up with Dr. Perez within 1 week. 6. Return to ED if you experience severe pain, numbness, or tingling in right forearm. 7. Remember to cover up wounds with bag that you mentioned. 8. Go to pharmacy and fill out medications as prescribed. Only one month supply is given, please follow up with a primary care physician for refills. Referrals: Mercedez Parekh MD [Primary Care Provider] -
--- NOTE | 2017-08-19 18:14 | CP.PCM.PN ---
Subjective - Date & Time of Evaluation Date of Evaluation: 08/19/17 Time of Evaluation: 13:00 - Subjective Subjective: Infectious Disease Follow Up: August 19, 2017 56 yo male known to me in the distant past presenting with fevers and body chills after dialysis today. His initial presentation was for jet black, brisk diarrhea and concurrent vomiting. The patient apparently completed a treatment for Pseudomonas about a week before admission. Patient is leukopenic and neutropenic at this time. Patient does not know what antibiotic he received in the outpatient setting. Still had a fever tonight. On Vancomycin and Meropenem for treatment at this time. Fever up to 101.2 F on admission. Afebrile the past few days. Identification of gram negative rods done. Patient needs change of all indwelling lines. Cultures showing Pseudomonas that was highly sensitive. Multiple cultures positive. 08/12/2017 cultures are negative. 08/14/2017 cultures pending. Maintaining meropenem. PO Vancomycin for C. diff. Remains afebrile and no leukocytosis. Added Amikacin. Potential AV graft placement during this hospitalization. Double coverage for Psudomonas initiated while in hospital. AV Graft placed by Dr. Perez yesterday. Objective - Vital Signs/Intake and Output Vital Signs (last 24 hours): Temp Pulse Resp BP Pulse Ox 98.3 F 77 20 169/86 H 94 L 08/19/17 07:30 08/19/17 07:30 08/19/17 07:30 08/19/17 07:30 08/19/17 07:30 Intake and Output: 08/19/17 08/19/17 06:59 18:59 Intake Total 1300 960 Output Total 1200 700 Balance 100 260 - Labs Labs: 08/19/17 06:45 08/19/17 06:45 PT 13.4 SECONDS (9.4-12.5) H 08/06/17 14:32 INR 1.22 (0.93-1.08) H 08/06/17 14:32 APTT 33.5 Seconds (25.1-36.5) 08/06/17 14:32 - Constitutional Appears: Non-toxic, No Acute Distress, Chronically Ill - Head Exam Head Exam: ATRAUMATIC, NORMOCEPHALIC - Eye Exam Eye Exam: EOMI, PERRL Pupil Exam: NORMAL ACCOMODATION, PERRL - ENT Exam ENT Exam: Mucous Membranes Moist, Normal External Ear Exam, TM's Normal Bilaterally - Neck Exam Neck Exam: Full ROM, Normal Inspection - Respiratory Exam Respiratory Exam: Clear to Ausculation Bilateral, NORMAL BREATHING PATTERN. absent: Rales, Rhonchi, Wheezes - Cardiovascular Exam Cardiovascular Exam: REGULAR RHYTHM, RRR, +S1, +S2 - GI/Abdominal Exam GI & Abdominal Exam: Soft, Normal Bowel Sounds. absent: Tenderness, Diminished Bowel Sounds - Extremities Exam Extremities Exam: Full ROM, Normal Inspection Additional comments: right forefoot amputation - Neurological Exam Neurological Exam: Alert, Awake, CN II-XII Intact, Oriented x3 - Psychiatric Exam Psychiatric exam: Normal Affect, Normal Mood - Skin Skin Exam: Intact, Normal Color Assessment and Plan - Assessment and Plan (Free Text) Assessment: 56 yo male with initial presentation of diarrhea, vomiting, and abdominal pain. The patient developed fevers and leukopenia today. Admon cultures sent. Vancomycin and Meropenem started. Will give a dose of aminoglycoside. Procalcitonin severely elevated at 59. WBC at 6.5. Check influenza titers as well. The patient may need neutropenic precautions. Supportive care. Gram negative rods seen in the blood cultures. Patient with gram negative bacteremia and likely septicemia. Patient with medical history of ESRD on HD, CAD, HTN, and DM. Remains on Meropenem and PO Vancomycin. Last C. Diff partially positive. Would retest C. Diff. Pseudomonas growth in cultures. Maintain Meropenem for treatment. Need two sets of negative cultures before placing new permacath for dialysis. 08/12/2017 cultures negative at 48 hours. 08/14/2017 cultures negative at 24 hours. With consideration of AV Graft placement, we will continue Amikacin 300 mg IV with HD in addition to the meropenem treatment. AV graft placement done today. On discharge from hospital, the patient will continue on Amikacin via HD alone for additional 4-5 doses (approximately 2 weeks). Thank you for allowing me to participate in the care of the patient, we will follow with you.
== END 2017-08-19 13:50 | disposition home or self-care (01) | DRG 550 ==
LOC: ED 13:58 → ERH 16:10 → 5RNO 20:40
PROVIDERS: ADMIT Internal Medicine; ATTEND Internal Medicine
PROC: 05PY33Z Removal of Infusion Device from Upper Vein, Percutaneous Approach (ICD-10-PCS; 2017-08-11)
PROC: 05HN33Z Insertion of Infusion Device into Left Internal Jugular Vein, Percutaneous Approach (ICD-10-PCS; 2017-08-11)
PROC: B544ZZA Ultrasonography of Left Jugular Veins, Guidance (ICD-10-PCS; 2017-08-11)
PROC: 05PY33Z Removal of Infusion Device from Upper Vein, Percutaneous Approach (ICD-10-PCS; 2017-08-16)
PROC: 05HM33Z Insertion of Infusion Device into Right Internal Jugular Vein, Percutaneous Approach (ICD-10-PCS; 2017-08-16)
PROC: B543ZZA Ultrasonography of Right Jugular Veins, Guidance (ICD-10-PCS; 2017-08-16)
PROC: 03170ZD Bypass Right Brachial Artery to Upper Arm Vein, Open Approach (ICD-10-PCS; principal; 2017-08-18 10:00)
DX: T82.7XXA Infection and inflammatory reaction due to other cardiac and vascular devices, implants and grafts, initial encounter (principal); A41.52 Sepsis due to Pseudomonas; A41.1 Sepsis due to other specified staphylococcus; J81.1 Chronic pulmonary edema; A04.72 Enterocolitis due to Clostridium difficile, not specified as recurrent; D70.9 Neutropenia, unspecified; I12.0 Hypertensive chronic kidney disease with stage 5 chronic kidney disease or end stage renal disease; N18.6 End stage renal disease; E11.22 Type 2 diabetes mellitus with diabetic chronic kidney disease; E11.42 Type 2 diabetes mellitus with diabetic polyneuropathy; E11.43 Type 2 diabetes mellitus with diabetic autonomic (poly)neuropathy; E11.51 Type 2 diabetes mellitus with diabetic peripheral angiopathy without gangrene; N39.0 Urinary tract infection, site not specified; K22.10 Ulcer of esophagus without bleeding; E83.39 Other disorders of phosphorus metabolism; Y83.8 Other surgical procedures as the cause of abnormal reaction of the patient, or of later complication, without mention of misadventure at the time of the procedure; D64.9 Anemia, unspecified; E78.5 Hyperlipidemia, unspecified; F12.90 Cannabis use, unspecified, uncomplicated; I25.10 Atherosclerotic heart disease of native coronary artery without angina pectoris; I25.2 Old myocardial infarction; K29.50 Unspecified chronic gastritis without bleeding; K31.84 Gastroparesis; N25.81 Secondary hyperparathyroidism of renal origin; N40.0 Benign prostatic hyperplasia without lower urinary tract symptoms; Z79.82 Long term (current) use of aspirin; Z80.0 Family history of malignant neoplasm of digestive organs; Z86.73 Personal history of transient ischemic attack (TIA), and cerebral infarction without residual deficits; Z87.19 Personal history of other diseases of the digestive system; Z87.440 Personal history of urinary (tract) infections; Z95.1 Presence of aortocoronary bypass graft; Z95.5 Presence of coronary angioplasty implant and graft; Z99.2 Dependence on renal dialysis

== ENCOUNTER 2017-10-14 09:37 | Observation (INO) | payer MEDICAID, OTHER ==
--- NOTE | 2017-10-14 10:31 | ED PDOC ---
Arrival/HPI - General Chief Complaint: Abdominal Pain Time Seen by Provider: 10/14/17 10:20 Historian: Patient - History of Present Illness Narrative History of Present Illness (Text): 10/14/17 10:29 A 57 year old male, whose past medical history includes coronary artery bypass grafts x3, hypertension, type 2 diabetes mellitus, hypercholesterolemia, acute renal failure, malignant hypertension, hyperglycemia, CVA, elevated creatine kinase, and ESRD on dialysis (T,,Mon), presents to the emergency department while on his way to dialysis, but he felt too sick to go and came to the emergency department instead. The patient reports that at 2 am this morning he woke up with nausea and began throwing up what appeared to be "coffee grinds," he notes that when he went to bed he did not have any symptoms at all. His nausea worsened into epigastric abdominal pain. Time/Duration: 24 hours (2 am this morning ) Symptom Onset: Sudden Symptom Course: Unchanged Severity Level: Mild Activities at Onset: Rest, Light Context: Home Past Medical History - Provider Review Nursing Documentation Reviewed: Yes - Infectious Disease Hx of Infectious Diseases: None - Tetanus Immunization Tetanus Immunization: Unknown - Cardiac Hx Cardiac Disorders: Yes (CAD, [place] x 3, CABG x 3) Hx Hypertension: Yes - Pulmonary Hx Respiratory Disorders: Yes Other/Comment: PULMONARY EDEMA - Neurological HX Cerebrovascular Accident: Yes - HEENT Hx HEENT Disorder: Yes (CONTACT LENSES) - Renal Hx Renal Failure: Yes (HD ,,MON) - Endocrine/Metabolic Hx Diabetes Mellitus Type 2: Yes - Hematological/Oncological Hx Blood Transfusions: Yes Hx Blood Transfusion Reaction: No - Integumentary Hx Dermatological Disorder: Yes Other/Comment: righty lower ext rash, pt stated "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" - Musculoskeletal/Rheumatological Hx Musculoskeletal Disorders: No - Gastrointestinal Hx Gastrointestinal Disorders: No - Genitourinary/Gynecological Hx Urinary Tract Infection: Yes - Psychiatric Hx Emotional Abuse: No Hx Physical Abuse: No Hx Substance Use: Yes - Surgical History Hx Amputation: Yes (R toes) Hx Cardiac Catheterization: Yes (09/09) Hx Coronary Stent: Yes Hx Open Heart Surgery: Yes (12-26-12) Other/Comment: temporary dialysis catheter. ERIC PICC line - Anesthesia Hx Anesthesia Reactions: No Hx Malignant Hyperthermia: No - Suicidal Assessment Feels Threatened In Home Enviroment: No Family/Social History - Physician Review Nursing Documentation Reviewed: Yes Family/Social History: No Known Family HX Smoking Status: Never Smoked Hx Alcohol Use: Yes Hx Substance Use: Yes Hx Substance Use Treatment: No Allergies/Home Meds Allergies/Adverse Reactions: Allergies Seafood Allergy (Uncoded 10/14/17 10:05) ANAPHYLAXIS Review of Systems - Review of Systems Constitutional: Fatigue. absent: Fevers Eyes: absent: Vision Changes ENT: absent: Hearing Changes Respiratory: absent: SOB, Cough Cardiovascular: absent: Chest Pain, BRADEN Gastrointestinal: Abdominal Pain, Diarrhea, Nausea, Vomiting. absent: Hematochezia, Hematemesis, Food Intolerance Genitourinary Male: absent: Frequency Musculoskeletal: absent: Back Pain Skin: absent: Rash Neurological: absent: Headache, Dizziness Endocrine: absent: Polyuria Hemo/Lymphatic: Easy Bleeding Physical Exam - Physical Exam Narrative Physical Exam (Text): 10/14/17 10:31 Head: Atraumatic. Normocephalic. Eyes: PERRL. EOMI. Conjunctivae are not pale. ENT: Mucous membranes are dry no erythema or exudates. Oropharynx is clear and symmetric. Neck: Supple. Full ROM. No JVD. No lymphadenopathy. Cardiovascular: Regular rate. Regular rhythm. Systolic murmur noted. Pulmonary/Chest: No evidence of respiratory distress. Clear to auscultation bilaterally. No wheezing, rales or rhonchi. Abdominal: Soft and non-distended. Mild epigastric tenderness. No rebound, guarding, or rigidity. No organomegaly. Good bowel sounds. Back: No CVA tenderness. Rectal: no melena or gross bleeding Genitourinary: martinez catheter in place Extremities: No erythema, no acute edema, hx of amputation. Skin: Skin is warm and dry. No petechiae. No purpura. Neurological: Alert, awake, and oriented to person, place, time, and situation. Normal speech. Motor and sensory exam intact. Psychiatric: Good eye contact. Normal interaction, affect, and behavior. 10/14/17 17:26 Vital Signs Reviewed: Yes Vital Signs Temp Pulse Resp BP Pulse Ox 10/14/17 16:55 98.0 F 74 18 143/91 H 100 10/14/17 12:43 98.2 F 65 18 158/76 H 100 10/14/17 11:15 98.4 F 68 18 100 10/14/17 10:00 98.5 F 68 18 166/98 H 98 Temperature: Afebrile Blood Pressure: Hypertensive Pulse: Regular Respiratory Rate: Normal Appearance: Positive for: Ill-Appearing, Uncomfortable Pain Distress: Mild Mental Status: Positive for: Alert and Oriented X 3 Medical Decision Making ED Course and Treatment: 10/14/17 10:31 Patient is a 57 yo male with ESRD, prior history of "coffee ground emesis" presents with vomiting dark material for several hours. On exam he is afebrile, cv stable, no respiratory distress. No melena, no rectal bleeding noted or reported. IV zofran and protonix ordered. Initial hgb obtained today is near his baseline. He is not hypotensive or tachycardic. Will continue serial exams. He did not go to dialysis today, creatinine is elevated but again no dialysis so far today. No EKG changes noted from previous. Denies chest pain or shortness of breath. Patient sent to dialysis. Will re-evaluate upon return form dialysis. Upon return from dialysis, patient states he has had 3-4 more episodes of dark vomiting, but less dark then before. Additional Zofan ordered. His abdomen is soft and nontender. Prior admission and records reviewed. Patient has had prior history of C diff. Will send stool, but currently states "diarrhea is like it always is" and denies acute worsening. Patient with no melena. He has prior history of sepsis, but currently afebrile with serial exams, vital stable. Given persistent vomiting, will obtain influenza, cultures, vbg. Will obtain urine specimen. Patient's case d/w hospitalist, will admit to remote tele given hx of vomiting/ bleeding and cardiac history. Continues to deny any chest pain or sob. EKG again similar to prior EKG. 10/14/17 17:27 - Lab Interpretations Lab Results: 10/14/17 10:10 10/14/17 10:10 Lab Results 10/14/17 11:00: Blood Type A POSITIVE, Antibody Screen Negative, BBK History Checked Patient has bt 10/14/17 10:10: Sodium 142, Potassium 5.2 H, Chloride 100, Carbon Dioxide 25, Anion Gap 21 H, BUN 63 H, Creatinine 8.5 H*, Est GFR ( Amer) 8, Est GFR ( Non-Af Amer) 7, Random Glucose 155 H, Calcium 9.7, Total Bilirubin 0.5, AST 14 L D, ALT 18, Alkaline Phosphatase 70, Lactate Dehydrogenase 371, Total Creatine Kinase 66, Troponin I 0.02 D, Total Protein 7.6, Albumin 4.3, Globulin 3.3, Albumin/Globulin Ratio 1.3, Amylase 59, Lipase 166 10/14/17 10:10: PT 12.1, INR 1.05, APTT 33.8 10/14/17 10:10: WBC 7.0, RBC 3.96, Hgb 10.9 L, Hct 34.2 L, MCV 86.4, MCH 27.5, MCHC 31.9, RDW 15.3 H, Plt Count 185, MPV 10.7, Gran % 73.8 H, Lymph % (Auto) 18.9 L, [place] % (Auto) 5.0, Eos % (Auto) 1.7, Baso % (Auto) 0.6, Gran # 5.15, Lymph # (Auto) 1.3, [place] # (Auto) 0.4, Eos # (Auto) 0.1, Baso # (Auto) 0.04 - RAD Interpretation Radiology Orders: 10/14/17 10:29 CHEST PORTABLE [RAD] Stat - EKG Interpretation EKG Interpretation (Text): 10/14/17 11:14 EKG at 10:20 normal sinus rhythm, septal infarct age undeterminged Interpreted by ED Physician: Yes Type: 12 lead EKG Comparison: Similar to previous EKG - Medication Orders Current Medication Orders: Discontinued Medications Ondansetron HCl (Zofran Inj) 4 mg IVP ONCE ONE Stop: 10/14/17 10:30 Last Admin: 10/14/17 11:28 Dose: 4 mg IVP Administration Document 10/14/17 11:28 SF (Rec: 10/14/17 11:28 SF [email or web address] Charges for Administration # of IVP Administrations 1 Ondansetron HCl (Zofran Inj) 4 mg IVP ONCE ONE Stop: 10/14/17 17:12 Pantoprazole Sodium (Protonix Inj) 40 mg IVP ONCE STA Stop: 10/14/17 10:30 Last Admin: 10/14/17 11:28 Dose: 40 mg IVP Administration Document 10/14/17 11:28 SF (Rec: 10/14/17 11:28 [email or web address]) Charges for Administration # of IVP Administrations 1 - Scribe Statement The provider has reviewed the documentation as recorded by the Scribe Shelly Mann Provider Scribe Attestation: All medical record entries made by the Scribe were at my direction and personally dictated by me. I have reviewed the chart and agree that the record accurately reflects my personal performance of the history, physical exam, medical decision making, and the department course for this patient. I have also personally directed, reviewed, and agree with the discharge instructions and disposition. Disposition/Present on Arrival - Present on Arrival Any Indicators Present on Arrival: Yes History of DVT/PE: No History of Uncontrolled Diabetes: No Urinary Catheter: Yes History of Decub. Ulcer: No History Surgical Site Infection Following: None - Disposition Have Diagnosis and Disposition been Completed?: Yes Diagnosis: GI bleeding, Intractable nausea and vomiting Disposition: HOSPITALIZED Disposition Time: 17:31 Patient Plan: Admission, Telemetry Patient Problems: Current Active Problems Problem Status Onset GI bleeding Acute Intractable nausea and vomiting Acute Condition: SERIOUS Referrals: PCP,NO [Primary Care Provider] - Follow up with primary Forms: [employer] (Spanish)
[2017-10-14 10:48] LABS: BASO # 0.04 K/mm3 (0.0-2.0); BASO % 0.6 % (0.0-3.0); EOS # 0.1 (0.0-0.7); EOS % 1.7 % (1.5-5.0); GRAN # 5.15 (1.4-6.5); GRAN % 73.8 % (50.0-68.0); HEMOGLOBIN 10.9 g/dL (14.0-18.0); LYMPH # 1.3 (1.2-3.4); LYMPH % 18.9 % (22.0-35.0); MEAN CELL VOLUME 86.4 fl (80.0-105.0); MEAN CORPUSCULAR HEMOGLOBIN 27.5 pg (25.0-35.0); MEAN CORPUSCULAR HGB CONC 31.9 g/dl (31.0-37.0); MEAN PLATELET VOLUME 10.7 fl (7.0-11.0); MONO # 0.4 (0.1-0.6); RBC 3.96 10^6/uL (3.5-6.1); RED CELL DISTRIBUTION WIDTH 15.3 % (11.5-14.5)
[2017-10-14 11:00] LABS: ALB/GLOB RATIO 1.3 (1.1-1.8); ALBUMIN 4.3 g/dL (3.0-4.8); CALCIUM 9.7 mg/dL (8.4-10.5)
[2017-10-14 11:06] LABS: TROPONIN I 0.02 ng/mL
[2017-10-14 11:32] LABS: INR 1.05 (0.93-1.08); PARTIAL THROMBOPLASTIN TIME 33.8 Seconds (25.1-36.5); PROTHROMBIN TIME 12.1 SECONDS (9.4-12.5)
--- NOTE | 2017-10-14 14:43 | RAD ---
HISTORY: upper abdominal pain COMPARISON: 08/08/2017 FINDINGS: LUNGS: No active pulmonary disease. PLEURA: No significant pleural effusion identified, no pneumothorax apparent. CARDIOVASCULAR: CABG. Right tunneled central venous dialysis catheter. OSSEOUS STRUCTURES: No significant abnormalities. VISUALIZED UPPER ABDOMEN: Normal. OTHER FINDINGS: None. IMPRESSION: No active disease.
[2017-10-14 17:52] LABS: VENOUS BLOOD GAS BASE EXCESS 8.9 mmol/L (0.0-2.0); VENOUS BLOOD GAS PO2 78 mm/Hg (30-55); VENOUS BLOOD PH 7.58 (7.32-7.43)
[2017-10-14] MEDS ORDERED: Doxercalciferol 4 mcg/2 ml Inj IVP SCH (18:15)
--- NOTE | 2017-10-14 18:35 | CP.PCM.HP ---
<Hunter Hernandez - Last Filed: 10/14/17 20:54> History of Present Illness - History of Present Illness History of Present Illness: CC: Hematemesis 56 year old male with past medical history of ESRD (on HD , , Mon), CAD with hx of stents and CABG, HTN, DM , peripheral neuropathy presents to the ED due to hematemesis. Pt states that he woke up at 2 am and started to have multiple episodes of nausea and vomiting that was "coffee ground" color. He than went for HD in the morning where he felt worse and decided to goto the ED. Pt also complains of a mild epigastric abdominal that is non radiating and 5/10 in severity. He denies any recent history of NSAID use. Patient does have a history of ETOH abuse but states that he quit 6 years ago. He denies any guerra, dizziness, sob, chest pain or diarrhea. In the ED patient denied having any further episodes of vomiting and he went for his scheduled dialysis. 12 Point ROS performed and negative other than stated above Medical Hx: ESRD, CAD with stents and CABG, HTN, DM, peripheral neuropathy Surgical Hx: Stents x 3, CABG, Cholecystectomy, left hip surgery, Left knee surgery, Right foot partial amputation Allergies: seafood Medications: Please see MAR Social Hx: Former ETOH abuser of 40 years, quit 6 years ago, denies tobacco use , and smokes marijuana Family Hx: denies Endo Hx: 04/2017 showed non bleeding esophageal ulcer, LA grade C esophagitis and chronic gastritis Present on Admission - Present on Admission Any Indicators Present on Admission: No Review of Systems - Review of Systems All systems: reviewed and no additional remarkable complaints except Past Patient History - Infectious Disease Hx of Infectious Diseases: None - Tetanus Immunizations Tetanus Immunization: Unknown - Past Medical History & Family History Past Medical History?: Yes - Past Social History Smoking Status: Never Smoked - CARDIAC Hx Cardiac Disorders: Yes (CAD, [place] x 3, CABG x 3) Hx Hypertension: Yes - PULMONARY Hx Respiratory Disorders: Yes Other/Comment: PULMONARY EDEMA - NEUROLOGICAL HX Cerebrovascular Accident: Yes - HEENT Hx HEENT Problems: Yes (CONTACT LENSES) - RENAL Hx Renal Failure: Yes (HD ,,MON) - ENDOCRINE/METABOLIC Hx Diabetes Mellitus Type 2: Yes - HEMATOLOGICAL/ONCOLOGICAL Hx Blood Transfusions: Yes Hx Blood Transfusion Reaction: No - INTEGUMENTARY Hx Dermatological Problems: Yes Other/Comment: righty lower ext rash, pt stated "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" - MUSCULOSKELETAL/RHEUMATOLOGICAL Hx Musculoskeletal Disorders: No - GASTROINTESTINAL Hx Gastrointestinal Disorders: No - GENITOURINARY/GYNECOLOGICAL Hx Urinary Tract Infection: Yes - PSYCHIATRIC Hx Emotional Abuse: No Hx Physical Abuse: No Hx Substance Use: Yes - SURGICAL HISTORY Hx Amputation: Yes (R toes) Hx Cardiac Catheterization: Yes (09/09) Hx Coronary Stent: Yes Hx Open Heart Surgery: Yes (12-26-12) Other/Comment: temporary dialysis catheter. ERIC PICC line - ANESTHESIA Hx Anesthesia Reactions: No Hx Malignant Hyperthermia: No Meds Allergies/Adverse Reactions: Allergies Allergy/AdvReac Type Severity Reaction Status Date / Time Seafood Allergy ANAPHYLAXIS Uncoded 10/14/17 10:05 Physical Exam - Constitutional Appears: No Acute Distress - Head Exam Head Exam: ATRAUMATIC, NORMOCEPHALIC - Eye Exam Eye Exam: EOMI, PERRL - ENT Exam ENT Exam: Mucous Membranes Moist - Respiratory Exam Respiratory Exam: Clear to Auscultation Bilateral. absent: Rales, Wheezes - Cardiovascular Exam Cardiovascular Exam: REGULAR RHYTHM, RRR, +S1, +S2 - GI/Abdominal Exam GI & Abdominal Exam: Normal Bowel Sounds, Soft, Tenderness. absent: Distended Additional comments: Mild epigastric tenderness - Extremities Exam Extremities exam: Negative for: calf tenderness, pedal edema - Neurological Exam Neurological exam: Alert, Oriented x3 - Psychiatric Exam Psychiatric exam: Normal Mood - Skin Skin Exam: Dry, Intact, Warm Results - Vital Signs Recent Vital Signs: Last Vital Signs Temp 99.9 F H 10/14/17 17:38 Pulse 74 10/14/17 16:55 Resp 18 10/14/17 16:55 BP 143/91 H 10/14/17 16:55 Pulse Ox 100 10/14/17 16:55 - Labs Result Diagrams: 10/14/17 20:10 10/14/17 10:10 Labs: Laboratory Results - last 24 hr 10/14/17 10/14/17 10/14/17 10:10 10:10 10:10 WBC 7.0 RBC 3.96 Hgb 10.9 L Hct 34.2 L MCV 86.4 MCH 27.5 MCHC 31.9 RDW 15.3 H Plt Count 185 MPV 10.7 Gran % 73.8 H Lymph % (Auto) 18.9 L [place] % (Auto) 5.0 Eos % (Auto) 1.7 Baso % (Auto) 0.6 Gran # 5.15 Lymph # (Auto) 1.3 [place] # (Auto) 0.4 Eos # (Auto) 0.1 Baso # (Auto) 0.04 PT 12.1 INR 1.05 APTT 33.8 pO2 VBG pH VBG pCO2 VBG HCO3 VBG Total CO2 VBG O2 Sat (Calc) VBG Base Excess VBG Potassium Glucose Lactate FiO2 Sodium 142 Potassium 5.2 H Chloride 100 Carbon Dioxide 25 Anion Gap 21 H BUN 63 H Creatinine 8.5 H* Est GFR ( Amer) 8 Est GFR (Non-Af Amer) 7 Random Glucose 155 H Calcium 9.7 Total Bilirubin 0.5 AST 14 L D ALT 18 Alkaline Phosphatase 70 Lactate Dehydrogenase 371 Total Creatine Kinase 66 Troponin I 0.02 D Total Protein 7.6 Albumin 4.3 Globulin 3.3 Albumin/Globulin Ratio 1.3 Amylase 59 Lipase 166 Venous Blood Potassium Blood Type Antibody Screen BBK History Checked 10/14/17 10/14/17 11:00 17:30 WBC RBC Hgb Hct MCV MCH MCHC RDW Plt Count MPV Gran % Lymph % (Auto) [place] % (Auto) Eos % (Auto) Baso % (Auto) Gran # Lymph # (Auto) [place] # (Auto) Eos # (Auto) Baso # (Auto) PT INR APTT pO2 78 H VBG pH 7.58 H VBG pCO2 33.0 L VBG HCO3 30.9 H VBG Total CO2 31.9 H VBG O2 Sat (Calc) 98.1 H VBG Base Excess 8.9 H VBG Potassium 3.8 Glucose 98 Lactate 1.4 FiO2 21.0 Sodium 139.0 Potassium Chloride 102.0 Carbon Dioxide Anion Gap BUN Creatinine Est GFR ( Amer) Est GFR (Non-Af Amer) Random Glucose Calcium Total Bilirubin AST ALT Alkaline Phosphatase Lactate Dehydrogenase Total Creatine Kinase Troponin I Total Protein Albumin Globulin Albumin/Globulin Ratio Amylase Lipase Venous Blood Potassium 3.8 Blood Type A POSITIVE Antibody Screen Negative BBK History Checked Patient has bt Assessment & Plan - Assessment and Plan (Free Text) Assessment: 56 year old male with past medical history of ESRD (on HD , , Sat), CAD with hx of stents and CABG, HTN, DM , peripheral neuropathy presents to the ED possible hematemesis r/o UGI bleed. 1. Possible hematemesis r/o UGI bleed - No signs of active bleeding, hemodynamically stable - CLD as tolerated - Hb this morning stable 10.9 - Serial H/H - Protonix 40mg IVP BID - GI consulted for recs - Aspirin continued for now, as no signs of active bleeding - Morning labs 2. CAD s/p stents and CABG - Resume Aspirin for now as no acute sign of bleeding - Cont statin - Continue BB 3. HTN - Hold Blood pressure medications - Cont BB 4. CKD - HD was done today - HD on , , Sat - Will consider Nephro consult if patient requires dialysis 5. DM - ISS as protocol - ACHS 6. GI/DVT ppx - Protonix and SCDs Case and plan was reviewed and examined in detail with Dr Ritter. <Jennifer Ritter - Last Filed: 10/15/17 07:42> Results - Vital Signs Recent Vital Signs: Last Vital Signs Temp 98.1 F 10/15/17 06:00 Pulse 64 10/15/17 06:00 Resp 20 10/15/17 06:00 BP 123/61 10/15/17 06:00 Pulse Ox 96 10/15/17 06:00 - Labs Result Diagrams: 10/14/17 20:10 10/14/17 10:10 Labs: Laboratory Results - last 24 hr 10/14/17 10/14/17 10/14/17 17:30 17:30 20:10 WBC 7.4 RBC 4.29 Hgb 12.0 L Hct 36.1 L MCV 84.1 MCH 28.0 MCHC 33.2 RDW 15.3 H Plt Count 185 MPV 10.1 Gran % 72.0 H Lymph % (Auto) 19.9 L [place] % (Auto) 6.4 H Eos % (Auto) 1.2 L Baso % (Auto) 0.5 Gran # 5.30 Lymph # (Auto) 1.5 [place] # (Auto) 0.5 Eos # (Auto) 0.1 Baso # (Auto) 0.04 pO2 78 H VBG pH 7.58 H VBG pCO2 33.0 L VBG HCO3 30.9 H VBG Total CO2 31.9 H VBG O2 Sat (Calc) 98.1 H VBG Base Excess 8.9 H VBG Potassium 3.8 Sodium 139.0 Chloride 102.0 Glucose 98 Lactate 1.4 FiO2 21.0 POC Glucose (mg/dL) Venous Blood Potassium 3.8 Urine Color Urine Appearance Urine pH Ur Specific [place] Urine Protein Urine Glucose (UA) Urine Ketones Urine Blood Urine Nitrate Urine Bilirubin Urine Urobilinogen Ur Leukocyte Esterase Urine RBC Urine WBC Urine Bacteria Influenza Typ A,B (EIA) Negative for flu a/b 10/14/17 10/14/17 21:00 21:27 WBC RBC Hgb Hct MCV MCH MCHC RDW Plt Count MPV Gran % Lymph % (Auto) [place] % (Auto) Eos % (Auto) Baso % (Auto) Gran # Lymph # (Auto) [place] # (Auto) Eos # (Auto) Baso # (Auto) pO2 VBG pH VBG pCO2 VBG HCO3 VBG Total CO2 VBG O2 Sat (Calc) VBG Base Excess VBG Potassium Sodium Chloride Glucose Lactate FiO2 POC Glucose (mg/dL) 104 Venous Blood Potassium Urine Color Light yellow Urine Appearance Cloudy Urine pH 8.5 Ur Specific [place] 1.015 Urine Protein >=300 H Urine Glucose (UA) Negative Urine Ketones 15 H Urine Blood Large H Urine Nitrate Negative Urine Bilirubin Negative Urine Urobilinogen 0.2 Ur Leukocyte Esterase Large H Urine RBC Tntc Urine WBC Tntc Urine Bacteria Many Influenza Typ A,B (EIA) Attending/Attestation - Attestation I have personally seen and examined this patient.: Yes I have fully participated in the care of the patient.: Yes I have reviewed all pertinent clinical information: Yes Notes (Text): 10/14/17 56 year old male with past medical history of ESRD (HD TTS), CAD s/p stents and CABG, hypertension, and diabetes who presents with complaint of coffee ground emesis. Will obtain serial H/H. Continue with iv protonix and zofran prn. GI evaluation is requested. His last EGD was few months prior which showed esophagitis. Patient admits to noncompliance with PPI at home. Continue with liquid diet as tolerated. Continue with aspirin while holding plavix for now. He had dialysis today and next dialysis is on Monday. Jennifer Ritter MD Hospitalist.
[2017-10-14 20:38] LABS: BASO # 0.04 K/mm3 (0.0-2.0); BASO % 0.5 % (0.0-3.0); EOS # 0.1 (0.0-0.7); EOS % 1.2 % (1.5-5.0); GRAN # 5.3 (1.4-6.5); LYMPH # 1.5 (1.2-3.4); LYMPH % 19.9 % (22.0-35.0); MEAN CELL VOLUME 84.1 fl (80.0-105.0); MEAN CORPUSCULAR HGB CONC 33.2 g/dl (31.0-37.0); MEAN PLATELET VOLUME 10.1 fl (7.0-11.0); MONO # 0.5 (0.1-0.6); MONO % 6.4 % (1.0-6.0); RBC 4.29 10^6/uL (3.5-6.1); RED CELL DISTRIBUTION WIDTH 15.3 % (11.5-14.5); WHITE BLOOD COUNT 7.4 10^3/ul (4.5-11.0)
[2017-10-14 21:13] LABS: PH,URINE 8.5 (4.7-8.0); URINE APPEARANCE CLOUDY (CLEAR); URINE BILIRUBIN NEGATIVE (NEGATIVE); URINE BLOOD LARGE (NEGATIVE); URINE COLOR LIGHT YELLOW (YELLOW); URINE GLUCOSE (UA) NEGATIVE (NEGATIVE); URINE LEUKOCYTE ESTERASE LARGE Leu/uL (NEGATIVE); URINE NITRATE NEGATIVE (NEGATIVE); URINE PROTEIN >=300 mg/dL (<30 mg/dL); URINE UROBILINOGEN 0.2 E.U./dL (<1 E.U./dL)
[2017-10-14 21:42] LABS: URINE BACTERIA MANY (NEG); URINE RBC TNTC /hpf (0-2); URINE WBC TNTC /hpf (0-6)
[2017-10-14] MEDS: Insulin Reg-LOW-Coverage SC SCH (22:09)
[2017-10-15 01:14] VITALS: BMI 26.6
[2017-10-15 06:33] VITALS: O2SAT 96
[2017-10-15 07:54] LABS: BASO # 0.05 K/mm3 (0.0-2.0); BASO % 0.9 % (0.0-3.0); EOS # 0.1 (0.0-0.7); EOS % 1.9 % (1.5-5.0); GRAN # 3.47 (1.4-6.5); GRAN % 60.3 % (50.0-68.0); HEMOGLOBIN 11.7 g/dL (14.0-18.0); LYMPH # 1.7 (1.2-3.4); LYMPH % 28.6 % (22.0-35.0); MEAN CELL VOLUME 86.8 fl (80.0-105.0); MEAN CORPUSCULAR HEMOGLOBIN 27.6 pg (25.0-35.0); MEAN CORPUSCULAR HGB CONC 31.8 g/dl (31.0-37.0); MEAN PLATELET VOLUME 10.5 fl (7.0-11.0); MONO # 0.5 (0.1-0.6); MONO % 8.3 % (1.0-6.0); RBC 4.24 10^6/uL (3.5-6.1); RED CELL DISTRIBUTION WIDTH 15.6 % (11.5-14.5); WHITE BLOOD COUNT 5.8 10^3/ul (4.5-11.0)
[2017-10-15] MEDS ORDERED: Multivitamin Vitamin B Complex (Nephro-Vite) Tab PO SCH (08:00)
--- NOTE | 2017-10-15 08:08 | CARD ---
APPROVED REPORT EKG Measurement Heart [id number] <Conclusion> Normal sinus rhythm Septal infarct, old IMI, old NSSTW changes Improved repolarization c/w ECG 08/06/17
[2017-10-15] MEDS: Insulin Reg-LOW-Coverage SC SCH ×3 (08:13→16:42)
[2017-10-15 08:24] LABS: ALB/GLOB RATIO 1.2 (1.1-1.8); ALBUMIN 4.1 g/dL (3.0-4.8); CALCIUM 9.7 mg/dL (8.4-10.5)
--- NOTE | 2017-10-15 11:25 | CP.PCM.CON ---
<Mariann Ramirez - Last Filed: 10/15/17 11:53> History of Present Illness - History of Present Illness History of Present Illness: GI Fellow PGY4 Consult Note This is a 57 year old male with hx of ESRD on HD T//S, DM with peripheral neuropathy, CAD, CVA, HLD, HTN, presents for nausea and vomiting for 1 days. Pt reports that every few months he has episodes of abominal pain and ausea/ vomiting. Last time he was here in July and had coffee ground emesis but not this time. He denies any GI bleeding, no melena, hematochezia or hematemesis.Denies eating unusual foods, sick contacts or recent travel. Pt had an EGD on 05/08/2017 (Dr Rios) which showed nonbleeding esophageal ulcers, Grade C esophagitis, and chronic gastritis. Pt failed to follow up for a colonoscopy outpatient. In ED, pt's Hgb 10.0 (above his baseline 9-10). This AM , pt states that he feels much better, denies abdominal pain but still having nausea today. States that he feels hungry and would like to eat. 12 point ROS obtained and negative, except as noted per HPI Past Medical Hx: ESRD on HD T//, CAD, HTN, DM, peripheral neuropathy Past Surgical Hx: Stents x 3, CABG, left hip surgery, Left knee surgery, Right foot partial amputation, cholecystectomy Social Hx: Quit drinking 6 years ago. Previously a chronic abuser, vodka for 30 years. Denies tobacco use. Smokes marijuana 2-3X weekly. Family Hx: father, pancreatic cancer Past Patient History - Infectious Disease Hx of Infectious Diseases: None - Tetanus Immunizations Tetanus Immunization: Unknown - Past Medical History & Family History Past Medical History?: Yes - Past Social History Smoking Status: Never Smoked - CARDIAC Hx Cardiac Disorders: Yes (CAD, [place] x 3, CABG x 3) Hx Hypertension: Yes - PULMONARY Hx Respiratory Disorders: Yes Other/Comment: PULMONARY EDEMA - NEUROLOGICAL HX Cerebrovascular Accident: Yes - HEENT Hx HEENT Problems: Yes (CONTACT LENSES) - RENAL Hx Renal Failure: Yes (HD TUES,THUR,SAT) - ENDOCRINE/METABOLIC Hx Diabetes Mellitus Type 2: Yes - HEMATOLOGICAL/ONCOLOGICAL Hx Blood Transfusions: Yes Hx Blood Transfusion Reaction: No - INTEGUMENTARY Hx Dermatological Problems: Yes Other/Comment: millicent lower ext rash, pt stated "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" - MUSCULOSKELETAL/RHEUMATOLOGICAL Hx Musculoskeletal Disorders: No - GASTROINTESTINAL Hx Gastrointestinal Disorders: No - GENITOURINARY/GYNECOLOGICAL Hx Urinary Tract Infection: Yes - PSYCHIATRIC Hx Emotional Abuse: No Hx Physical Abuse: No Hx Substance Use: Yes - SURGICAL HISTORY Hx Amputation: Yes (R toes) Hx Cardiac Catheterization: Yes (09/09) Hx Coronary Stent: Yes Hx Open Heart Surgery: Yes (12-26-12) Other/Comment: temporary dialysis catheter. ERIC PICC line - ANESTHESIA Hx Anesthesia Reactions: No Hx Malignant Hyperthermia: No Meds Allergies/Adverse Reactions: Allergies Allergy/AdvReac Type Severity Reaction Status Date / Time Seafood Allergy ANAPHYLAXIS Uncoded 10/14/17 10:05 - Medications Medications: Current Medications Aspirin (Ecotrin) 81 mg PO DAILY [facility] Last Admin: 10/15/17 09:49 Dose: 81 mg Atorvastatin Calcium (Lipitor) 40 mg PO DIN [facility] Last Admin: 10/14/17 19:14 Dose: 40 mg Doxercalciferol (Hectorol) 3 mcg IVP ONCE [facility] Insulin Human Regular (Humulin R Low) 0 units SC ACHS [facility] PRN Reason: Protocol Last Admin: 10/15/17 08:13 Dose: Not Given Metoprolol Tartrate (Lopressor) 50 mg PO BID [facility] Last Admin: 10/15/17 09:49 Dose: 50 mg Ondansetron HCl (Zofran Inj) 4 mg IVP Q4H PRN PRN Reason: Nausea/Vomiting Pantoprazole Sodium (Protonix Inj) 40 mg IVP Q12 [facility] Last Admin: 10/15/17 09:48 Dose: 40 mg Sevelamer HCl (Renagel) 1,600 mg PO TID [facility] Last Admin: 10/15/17 09:48 Dose: 1,600 mg Tamsulosin HCl (Flomax) 0.4 mg PO DAILY [facility] Last Admin: 10/15/17 09:49 Dose: 0.4 mg Vitamin B Complex/Vit C/Folic Acid (Nephro-Eleni) 1 tab PO 0800 [facility] Last Admin: 10/15/17 09:48 Dose: 1 tab Physical Exam - Constitutional Appears: Well, Non-toxic, No Acute Distress - Head Exam Head Exam: ATRAUMATIC, NORMAL INSPECTION - Eye Exam Eye Exam: EOMI, Normal appearance - ENT Exam ENT Exam: Mucous Membranes Moist, Normal Exam - Respiratory Exam Respiratory Exam: Clear to Auscultation Bilateral, NORMAL BREATHING PATTERN - Cardiovascular Exam Cardiovascular Exam: REGULAR RHYTHM, RRR, +S1, +S2 - GI/Abdominal Exam GI & Abdominal Exam: Normal Bowel Sounds, Soft. absent: Distended, Tenderness - Extremities Exam Extremities exam: Positive for: normal inspection - Neurological Exam Neurological exam: Alert, Oriented x3 - Psychiatric Exam Psychiatric exam: Normal Affect, Normal Mood - Skin Skin Exam: Dry, Intact, Normal Color, Warm Results - Vital Signs Recent Vital Signs: Last Vital Signs Temp 98.1 F 10/15/17 06:00 Pulse 68 10/15/17 10:00 Resp 20 10/15/17 06:00 BP 123/61 10/15/17 06:00 Pulse Ox 96 10/15/17 06:00 - Labs Result Diagrams: 10/15/17 07:00 10/15/17 07:00 Labs: Laboratory Results - last 24 hr 10/14/17 10/14/17 10/14/17 17:30 17:30 20:10 WBC 7.4 RBC 4.29 Hgb 12.0 L Hct 36.1 L MCV 84.1 MCH 28.0 MCHC 33.2 RDW 15.3 H Plt Count 185 MPV 10.1 Gran % 72.0 H Lymph % (Auto) 19.9 L [place] % (Auto) 6.4 H Eos % (Auto) 1.2 L Baso % (Auto) 0.5 Gran # 5.30 Lymph # (Auto) 1.5 [place] # (Auto) 0.5 Eos # (Auto) 0.1 Baso # (Auto) 0.04 pO2 78 H VBG pH 7.58 H VBG pCO2 33.0 L VBG HCO3 30.9 H VBG Total CO2 31.9 H VBG O2 Sat (Calc) 98.1 H VBG Base Excess 8.9 H VBG Potassium 3.8 Sodium 139.0 Chloride 102.0 Glucose 98 Lactate 1.4 FiO2 21.0 Potassium Carbon Dioxide Anion Gap BUN Creatinine Est GFR ( Amer) Est GFR (Non-Af Amer) POC Glucose (mg/dL) Random Glucose Calcium Total Bilirubin AST ALT Alkaline Phosphatase Total Protein Albumin Globulin Albumin/Globulin Ratio Venous Blood Potassium 3.8 Urine Color Urine Appearance Urine pH Ur Specific [place] Urine Protein Urine Glucose (UA) Urine Ketones Urine Blood Urine Nitrate Urine Bilirubin Urine Urobilinogen Ur Leukocyte Esterase Urine RBC Urine WBC Urine Bacteria Influenza Typ A,B (EIA) Negative for flu a/b 10/14/17 10/14/17 10/15/17 21:00 21:27 07:00 WBC 5.8 D RBC 4.24 Hgb 11.7 L Hct 36.8 L MCV 86.8 MCH 27.6 MCHC 31.8 RDW 15.6 H Plt Count 180 MPV 10.5 Gran % 60.3 Lymph % (Auto) 28.6 [place] % (Auto) 8.3 H Eos % (Auto) 1.9 Baso % (Auto) 0.9 Gran # 3.47 Lymph # (Auto) 1.7 [place] # (Auto) 0.5 Eos # (Auto) 0.1 Baso # (Auto) 0.05 pO2 VBG pH VBG pCO2 VBG HCO3 VBG Total CO2 VBG O2 Sat (Calc) VBG Base Excess VBG Potassium Sodium Chloride Glucose Lactate FiO2 Potassium Carbon Dioxide Anion Gap BUN Creatinine Est GFR ( Amer) Est GFR (Non-Af Amer) POC Glucose (mg/dL) 104 Random Glucose Calcium Total Bilirubin AST ALT Alkaline Phosphatase Total Protein Albumin Globulin Albumin/Globulin Ratio Venous Blood Potassium Urine Color Light yellow Urine Appearance Cloudy Urine pH 8.5 Ur Specific [place] 1.015 Urine Protein >=300 H Urine Glucose (UA) Negative Urine Ketones 15 H Urine Blood Large H Urine Nitrate Negative Urine Bilirubin Negative Urine Urobilinogen 0.2 Ur Leukocyte Esterase Large H Urine RBC Tntc Urine WBC Tntc Urine Bacteria Many Influenza Typ A,B (EIA) 10/15/17 10/15/17 10/15/17 07:00 07:27 11:04 WBC RBC Hgb Hct MCV MCH MCHC RDW Plt Count MPV Gran % Lymph % (Auto) [place] % (Auto) Eos % (Auto) Baso % (Auto) Gran # Lymph # (Auto) [place] # (Auto) Eos # (Auto) Baso # (Auto) pO2 VBG pH VBG pCO2 VBG HCO3 VBG Total CO2 VBG O2 Sat (Calc) VBG Base Excess VBG Potassium Sodium 142 Chloride 98 Glucose Lactate FiO2 Potassium 4.8 Carbon Dioxide 29 Anion Gap 20 BUN 31 H Creatinine 5.9 H Est GFR ( Amer) 12 Est GFR (Non-Af Amer) 10 POC Glucose (mg/dL) 111 H 208 H Random Glucose 137 H Calcium 9.7 Total Bilirubin 1.0 AST 16 L ALT 20 Alkaline Phosphatase 75 Total Protein 7.4 Albumin 4.1 Globulin 3.3 Albumin/Globulin Ratio 1.2 Venous Blood Potassium Urine Color Urine Appearance Urine pH Ur Specific [place] Urine Protein Urine Glucose (UA) Urine Ketones Urine Blood Urine Nitrate Urine Bilirubin Urine Urobilinogen Ur Leukocyte Esterase Urine RBC Urine WBC Urine Bacteria Influenza Typ A,B (EIA) Assessment & Plan - Assessment and Plan (Free Text) Assessment: This is a 57yM with pmhx of ESRD, CAD s/p stents on aspirin, DM, HTN presenting with abdominal pain, nausea and vomiting. 1. Abdominal pain, N/V-improved, ddx viral gastroenteritis, cannabis induced cyclical vomiting, uremia 2. Esophagitis Plan: -Continue supportive care with pain control and anti-emetics -No active GI bleeding, H/H stable -No plan for urgent EGD -Recent EGD 05/14 with LAGC esophagitis and esophageal ulcers -Continue PPI BID and carafate -Renal Diet as tolerated -Will follow pt closely <Hung Barragan - Last Filed: 10/15/17 14:31> Meds - Medications Medications: Current Medications Aspirin (Ecotrin) 81 mg PO DAILY [facility] Last Admin: 10/15/17 09:49 Dose: 81 mg Atorvastatin Calcium (Lipitor) 40 mg PO DIN [facility] Last Admin: 10/14/17 19:14 Dose: 40 mg Doxercalciferol (Hectorol) 3 mcg IVP ONCE [facility] Insulin Human Regular (Humulin R Low) 0 units SC ACHS [facility] PRN Reason: Protocol Last Admin: 10/15/17 12:09 Dose: 2 units Metoprolol Tartrate (Lopressor) 50 mg PO BID [facility] Last Admin: 10/15/17 09:49 Dose: 50 mg Ondansetron HCl (Zofran Inj) 4 mg IVP Q4H PRN PRN Reason: Nausea/Vomiting Pantoprazole Sodium (Protonix Inj) 40 mg IVP Q12 [facility] Last Admin: 10/15/17 09:48 Dose: 40 mg Sevelamer HCl (Renagel) 1,600 mg PO TID [facility] Last Admin: 10/15/17 13:09 Dose: 1,600 mg Tamsulosin HCl (Flomax) 0.4 mg PO DAILY [facility] Last Admin: 10/15/17 09:49 Dose: 0.4 mg Vitamin B Complex/Vit C/Folic Acid (Nephro-Eleni) 1 tab PO 0800 [facility] Last Admin: 10/15/17 09:48 Dose: 1 tab Results - Vital Signs Recent Vital Signs: Last Vital Signs Temp 98.1 F 10/15/17 06:00 Pulse 60 10/15/17 14:00 Resp 20 10/15/17 06:00 BP 123/61 10/15/17 06:00 Pulse Ox 96 10/15/17 06:00 - Labs Result Diagrams: 10/15/17 07:00 10/15/17 07:00 Labs: Laboratory Results - last 24 hr 10/14/17 10/14/17 10/14/17 17:30 17:30 20:10 WBC 7.4 RBC 4.29 Hgb 12.0 L Hct 36.1 L MCV 84.1 MCH 28.0 MCHC 33.2 RDW 15.3 H Plt Count 185 MPV 10.1 Gran % 72.0 H Lymph % (Auto) 19.9 L [place] % (Auto) 6.4 H Eos % (Auto) 1.2 L Baso % (Auto) 0.5 Gran # 5.30 Lymph # (Auto) 1.5 [place] # (Auto) 0.5 Eos # (Auto) 0.1 Baso # (Auto) 0.04 pO2 78 H VBG pH 7.58 H VBG pCO2 33.0 L VBG HCO3 30.9 H VBG Total CO2 31.9 H VBG O2 Sat (Calc) 98.1 H VBG Base Excess 8.9 H VBG Potassium 3.8 Sodium 139.0 Chloride 102.0 Glucose 98 Lactate 1.4 FiO2 21.0 Potassium Carbon Dioxide Anion Gap BUN Creatinine Est GFR ( Amer) Est GFR (Non-Af Amer) POC Glucose (mg/dL) Random Glucose Calcium Total Bilirubin AST ALT Alkaline Phosphatase Total Protein Albumin Globulin Albumin/Globulin Ratio Venous Blood Potassium 3.8 Urine Color Urine Appearance Urine pH Ur Specific [place] Urine Protein Urine Glucose (UA) Urine Ketones Urine Blood Urine Nitrate Urine Bilirubin Urine Urobilinogen Ur Leukocyte Esterase Urine RBC Urine WBC Urine Bacteria Influenza Typ A,B (EIA) Negative for flu a/b 10/14/17 10/14/17 10/15/17 21:00 21:27 07:00 WBC 5.8 D RBC 4.24 Hgb 11.7 L Hct 36.8 L MCV 86.8 MCH 27.6 MCHC 31.8 RDW 15.6 H Plt Count 180 MPV 10.5 Gran % 60.3 Lymph % (Auto) 28.6 [place] % (Auto) 8.3 H Eos % (Auto) 1.9 Baso % (Auto) 0.9 Gran # 3.47 Lymph # (Auto) 1.7 [place] # (Auto) 0.5 Eos # (Auto) 0.1 Baso # (Auto) 0.05 pO2 VBG pH VBG pCO2 VBG HCO3 VBG Total CO2 VBG O2 Sat (Calc) VBG Base Excess VBG Potassium Sodium Chloride Glucose Lactate FiO2 Potassium Carbon Dioxide Anion Gap BUN Creatinine Est GFR ( Amer) Est GFR (Non-Af Amer) POC Glucose (mg/dL) 104 Random Glucose Calcium Total Bilirubin AST ALT Alkaline Phosphatase Total Protein Albumin Globulin Albumin/Globulin Ratio Venous Blood Potassium Urine Color Light yellow Urine Appearance Cloudy Urine pH 8.5 Ur Specific [place] 1.015 Urine Protein >=300 H Urine Glucose (UA) Negative Urine Ketones 15 H Urine Blood Large H Urine Nitrate Negative Urine Bilirubin Negative Urine Urobilinogen 0.2 Ur Leukocyte Esterase Large H Urine RBC Tntc Urine WBC Tntc Urine Bacteria Many Influenza Typ A,B (EIA) 10/15/17 10/15/17 10/15/17 07:00 07:27 11:04 WBC RBC Hgb Hct MCV MCH MCHC RDW Plt Count MPV Gran % Lymph % (Auto) [place] % (Auto) Eos % (Auto) Baso % (Auto) Gran # Lymph # (Auto) [place] # (Auto) Eos # (Auto) Baso # (Auto) pO2 VBG pH VBG pCO2 VBG HCO3 VBG Total CO2 VBG O2 Sat (Calc) VBG Base Excess VBG Potassium Sodium 142 Chloride 98 Glucose Lactate FiO2 Potassium 4.8 Carbon Dioxide 29 Anion Gap 20 BUN 31 H Creatinine 5.9 H Est GFR ( Amer) 12 Est GFR (Non-Af Amer) 10 POC Glucose (mg/dL) 111 H 208 H Random Glucose 137 H Calcium 9.7 Total Bilirubin 1.0 AST 16 L ALT 20 Alkaline Phosphatase 75 Total Protein 7.4 Albumin 4.1 Globulin 3.3 Albumin/Globulin Ratio 1.2 Venous Blood Potassium Urine Color Urine Appearance Urine pH Ur Specific [place] Urine Protein Urine Glucose (UA) Urine Ketones Urine Blood Urine Nitrate Urine Bilirubin Urine Urobilinogen Ur Leukocyte Esterase Urine RBC Urine WBC Urine Bacteria Influenza Typ A,B (EIA) Attending/Attestation - Attestation I have personally seen and examined this patient.: Yes I have fully participated in the care of the patient.: Yes I have reviewed all pertinent clinical information: Yes Notes (Text): 10/15/17 14:29 57 year old male with h/o ESRD on HD, CAD s/p stents, DM, HTN a/w vomiting. 1. Erosive esophagitis 2. Nausea and vomiting Plan: -recommend BID PPI and carafate -advance diet as tolerated -no overt GI bleeding -no indication for urgent EGD -supportive measures -will sign off
[2017-10-15 15:28] VITALS: BP 166/85; RESP 18; TEMP 97
--- NOTE | 2017-10-15 18:10 | CP.PCM.CON ---
History of Present Illness - History of Present Illness History of Present Illness: Infectious Disease Consultation: October 15, 2017 56 yo male known to me in the past presenting with nausea and vomiting for the past day. Difficulty with appetite as well. Patient also has a indwelling martinez catheter for the past 2 months. Today he is tolerating solid foods. Urinalysis suggested UTI however the martinez has been present for the past 2 months. Known history of non-compliance... only consistently follows with his HD. PMHx: ESRD on HD, DM II, CAD, CVA, dyslipidemia, multiple abdominal surgeries, HTN, benign prostatic hypertrophy, peripheral neuropathy. PSHx: CABG in 2012, left hip surgery, left knee surgery, right foot partial amputation , cholecystectomy. Allergies: Morphine and Seafood. Social Hx: Denies current tobacco or EtOH. 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 Marijuana use now... twice weekly. Active Medications Aspirin (Ecotrin) 81 mg PO DAILY [facility] Last Admin: 10/15/17 09:49 Dose: 81 mg Atorvastatin Calcium (Lipitor) 40 mg PO DIN [facility] Last Admin: 10/15/17 17:20 Dose: 40 mg Doxercalciferol (Hectorol) 3 mcg IVP ONCE [facility] Insulin Human Regular (Humulin R Low) 0 units SC ACHS [facility] PRN Reason: Protocol Last Admin: 10/15/17 16:42 Dose: Not Given Metoprolol Tartrate (Lopressor) 50 mg PO BID [facility] Last Admin: 10/15/17 17:22 Dose: 50 mg Ondansetron HCl (Zofran Inj) 4 mg IVP Q4H PRN PRN Reason: Nausea/Vomiting Pantoprazole Sodium (Protonix Inj) 40 mg IVP Q12 [facility] Last Admin: 10/15/17 09:48 Dose: 40 mg Sevelamer HCl (Renagel) 1,600 mg PO TID [facility] Last Admin: 10/15/17 17:20 Dose: 1,600 mg Tamsulosin HCl (Flomax) 0.4 mg PO DAILY [facility] Last Admin: 10/15/17 09:49 Dose: 0.4 mg Vitamin B Complex/Vit C/Folic Acid (Nephro-Eleni) 1 tab PO 0800 [facility] Last Admin: 10/15/17 09:48 Dose: 1 tab Family Hx: Pancreatic cancer - father. ROS: Nausea, Vomiting, feverish, chills, abdominal pain. No hematochezia, hematemesis, hematuria. No chest pain. No LOC or SOB. No vision loss, hearing loss, vision loss. No chest pain. No reported melena. Past Patient History - Infectious Disease Hx of Infectious Diseases: None - Tetanus Immunizations Tetanus Immunization: Unknown - Past Medical History & Family History Past Medical History?: Yes - Past Social History Smoking Status: Never Smoked - CARDIAC Hx Cardiac Disorders: Yes (CAD, [place] x 3, CABG x 3) Hx Hypertension: Yes - PULMONARY Hx Respiratory Disorders: Yes Other/Comment: PULMONARY EDEMA - NEUROLOGICAL HX Cerebrovascular Accident: Yes - HEENT Hx HEENT Problems: Yes (CONTACT LENSES) - RENAL Hx Renal Failure: Yes (HD TUES,THUR,SAT) - ENDOCRINE/METABOLIC Hx Diabetes Mellitus Type 2: Yes - HEMATOLOGICAL/ONCOLOGICAL Hx Blood Transfusions: Yes Hx Blood Transfusion Reaction: No - INTEGUMENTARY Hx Dermatological Problems: Yes Other/Comment: righty lower ext rash, pt stated "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" - MUSCULOSKELETAL/RHEUMATOLOGICAL Hx Musculoskeletal Disorders: No - GASTROINTESTINAL Hx Gastrointestinal Disorders: No - GENITOURINARY/GYNECOLOGICAL Hx Urinary Tract Infection: Yes - PSYCHIATRIC Hx Emotional Abuse: No Hx Physical Abuse: No Hx Substance Use: Yes - SURGICAL HISTORY Hx Amputation: Yes (R toes) Hx Cardiac Catheterization: Yes (09/09) Hx Coronary Stent: Yes Hx Open Heart Surgery: Yes (12-26-12) Other/Comment: temporary dialysis catheter. ERIC PICC line - ANESTHESIA Hx Anesthesia Reactions: No Hx Malignant Hyperthermia: No Meds Home Medications: Home Medication List Medication Instructions Recorded Confirmed Type Pantoprazole [Protonix EC Tab] 20 mg PO BID #60 ect 10/15/17 Rx Sucralfate [Carafate] 1 gm PO BID #60 tab 10/15/17 Rx Allergies/Adverse Reactions: Allergies Allergy/AdvReac Type Severity Reaction Status Date / Time Seafood Allergy ANAPHYLAXIS Uncoded 10/14/17 10:05 - Medications Medications: Current Medications Aspirin (Ecotrin) 81 mg PO DAILY [facility] Last Admin: 10/15/17 09:49 Dose: 81 mg Atorvastatin Calcium (Lipitor) 40 mg PO DIN [facility] Last Admin: 10/15/17 17:20 Dose: 40 mg Doxercalciferol (Hectorol) 3 mcg IVP ONCE [facility] Insulin Human Regular (Humulin R Low) 0 units SC ACHS [facility] PRN Reason: Protocol Last Admin: 10/15/17 16:42 Dose: Not Given Metoprolol Tartrate (Lopressor) 50 mg PO BID [facility] Last Admin: 10/15/17 17:22 Dose: 50 mg Ondansetron HCl (Zofran Inj) 4 mg IVP Q4H PRN PRN Reason: Nausea/Vomiting Pantoprazole Sodium (Protonix Inj) 40 mg IVP Q12 [facility] Last Admin: 10/15/17 09:48 Dose: 40 mg Sevelamer HCl (Renagel) 1,600 mg PO TID [facility] Last Admin: 10/15/17 17:20 Dose: 1,600 mg Tamsulosin HCl (Flomax) 0.4 mg PO DAILY [facility] Last Admin: 10/15/17 09:49 Dose: 0.4 mg Vitamin B Complex/Vit C/Folic Acid (Nephro-Eleni) 1 tab PO 0800 [facility] Last Admin: 10/15/17 09:48 Dose: 1 tab Physical Exam - Constitutional Appears: Non-toxic, No Acute Distress, Chronically Ill - Head Exam Head Exam: ATRAUMATIC, NORMOCEPHALIC - Eye Exam Eye Exam: EOMI, PERRL Pupil Exam: NORMAL ACCOMODATION, PERRL - ENT Exam ENT Exam: Mucous Membranes Moist, Normal External Ear Exam, TM's Normal Bilaterally - Neck Exam Neck exam: Positive for: Full Rom, Normal Inspection - Respiratory Exam Respiratory Exam: Clear to Auscultation Bilateral, NORMAL BREATHING PATTERN. absent: Rales, Rhonchi, Wheezes - Cardiovascular Exam Cardiovascular Exam: REGULAR RHYTHM, RRR, +S1, +S2 - GI/Abdominal Exam GI & Abdominal Exam: Normal Bowel Sounds, Soft. absent: Distended, Tenderness - Extremities Exam Extremities exam: Positive for: full ROM, normal inspection - Neurological Exam Neurological exam: Alert, CN II-XII Intact, Oriented x3 - Skin Skin Exam: Intact, Normal Color Results - Vital Signs Recent Vital Signs: Last Vital Signs Temp 97.0 F L 10/15/17 12:00 Pulse 60 10/15/17 14:00 Resp 18 10/15/17 12:00 BP 166/85 H 10/15/17 12:00 Pulse Ox 96 10/15/17 06:00 - Labs Result Diagrams: 10/15/17 07:00 10/15/17 07:00 Labs: Laboratory Results - last 24 hr 10/14/17 10/14/17 10/14/17 17:30 20:10 21:00 WBC 7.4 RBC 4.29 Hgb 12.0 L Hct 36.1 L MCV 84.1 MCH 28.0 MCHC 33.2 RDW 15.3 H Plt Count 185 MPV 10.1 Gran % 72.0 H Lymph % (Auto) 19.9 L [place] % (Auto) 6.4 H Eos % (Auto) 1.2 L Baso % (Auto) 0.5 Gran # 5.30 Lymph # (Auto) 1.5 [place] # (Auto) 0.5 Eos # (Auto) 0.1 Baso # (Auto) 0.04 Sodium Potassium Chloride Carbon Dioxide Anion Gap BUN Creatinine Est GFR ( Amer) Est GFR (Non-Af Amer) POC Glucose (mg/dL) Random Glucose Calcium Total Bilirubin AST ALT Alkaline Phosphatase Total Protein Albumin Globulin Albumin/Globulin Ratio Urine Color Light yellow Urine Appearance Cloudy Urine pH 8.5 Ur Specific [place] 1.015 Urine Protein >=300 H Urine Glucose (UA) Negative Urine Ketones 15 H Urine Blood Large H Urine Nitrate Negative Urine Bilirubin Negative Urine Urobilinogen 0.2 Ur Leukocyte Esterase Large H Urine RBC Tntc Urine WBC Tntc Urine Bacteria Many Influenza Typ A,B (EIA) Negative for flu a/b 10/14/17 10/15/17 10/15/17 21:27 07:00 07:00 WBC 5.8 D RBC 4.24 Hgb 11.7 L Hct 36.8 L MCV 86.8 MCH 27.6 MCHC 31.8 RDW 15.6 H Plt Count 180 MPV 10.5 Gran % 60.3 Lymph % (Auto) 28.6 [place] % (Auto) 8.3 H Eos % (Auto) 1.9 Baso % (Auto) 0.9 Gran # 3.47 Lymph # (Auto) 1.7 [place] # (Auto) 0.5 Eos # (Auto) 0.1 Baso # (Auto) 0.05 Sodium 142 Potassium 4.8 Chloride 98 Carbon Dioxide 29 Anion Gap 20 BUN 31 H Creatinine 5.9 H Est GFR ( Amer) 12 Est GFR (Non-Af Amer) 10 POC Glucose (mg/dL) 104 Random Glucose 137 H Calcium 9.7 Total Bilirubin 1.0 AST 16 L ALT 20 Alkaline Phosphatase 75 Total Protein 7.4 Albumin 4.1 Globulin 3.3 Albumin/Globulin Ratio 1.2 Urine Color Urine Appearance Urine pH Ur Specific [place] Urine Protein Urine Glucose (UA) Urine Ketones Urine Blood Urine Nitrate Urine Bilirubin Urine Urobilinogen Ur Leukocyte Esterase Urine RBC Urine WBC Urine Bacteria Influenza Typ A,B (EIA) 10/15/17 10/15/17 07:27 11:04 WBC RBC Hgb Hct MCV MCH MCHC RDW Plt Count MPV Gran % Lymph % (Auto) [place] % (Auto) Eos % (Auto) Baso % (Auto) Gran # Lymph # (Auto) [place] # (Auto) Eos # (Auto) Baso # (Auto) Sodium Potassium Chloride Carbon Dioxide Anion Gap BUN Creatinine Est GFR ( Amer) Est GFR (Non-Af Amer) POC Glucose (mg/dL) 111 H 208 H Random Glucose Calcium Total Bilirubin AST ALT Alkaline Phosphatase Total Protein Albumin Globulin Albumin/Globulin Ratio Urine Color Urine Appearance Urine pH Ur Specific [place] Urine Protein Urine Glucose (UA) Urine Ketones Urine Blood Urine Nitrate Urine Bilirubin Urine Urobilinogen Ur Leukocyte Esterase Urine RBC Urine WBC Urine Bacteria Influenza Typ A,B (EIA) Assessment & Plan - Assessment and Plan (Free Text) Assessment: 57 yo male with abdominal pain and poor appetite. Patient found to have a suspicion urinalysis. Chronic indwelling martinez for the past 2 months. I would monitor the patient as he has no specific symptoms for a UTI and wound strongly consider removal of the martinez as the patient has minimal urine output at best. Otherwise, the martinez can be a potential source of infection now. Supportive care. Would follow up with urology regarding martinez removal (or exchange if there is still a reason to have it). Wound not treat as the patient is having no symptoms at this time. Spoke with Dr. Ritter. Thank you for allowing me to participate in the care of the patient, we will follow with you.
--- NOTE | 2017-10-15 18:24 | CP.PCM.DIS ---
<Sushant Rosas - Last Filed: 10/15/17 18:18> Provider - Provider Date of Admission: 10/14/17 17:21 Attending physician: Jennifer Ritter MD Primary care physician: NO PRIMARY CARE PROVIDER Consults: ID: Go Time Spent in preparation of Discharge (in minutes): 49 Hospital Course - Lab Results Lab Results: Most Recent Lab Values WBC 5.8 10^3/ul (4.5-11.0) D 10/15/17 07:00 RBC 4.24 10^6/uL (3.5-6.1) 10/15/17 07:00 Hgb 11.7 g/dL (14.0-18.0) L 10/15/17 07:00 Hct 36.8 % (42.0-52.0) L 10/15/17 07:00 MCV 86.8 fl (80.0-105.0) 10/15/17 07:00 MCH 27.6 pg (25.0-35.0) 10/15/17 07:00 MCHC 31.8 g/dl (31.0-37.0) 10/15/17 07:00 RDW 15.6 % (11.5-14.5) H 10/15/17 07:00 Plt Count 180 10^3/uL (120.0-450.0) 10/15/17 07:00 MPV 10.5 fl (7.0-11.0) 10/15/17 07:00 Gran % 60.3 % (50.0-68.0) 10/15/17 07:00 Lymph % (Auto) 28.6 % (22.0-35.0) 10/15/17 07:00 [place] % (Auto) 8.3 % (1.0-6.0) H 10/15/17 07:00 Eos % (Auto) 1.9 % (1.5-5.0) 10/15/17 07:00 Baso % (Auto) 0.9 % (0.0-3.0) 10/15/17 07:00 Gran # 3.47 (1.4-6.5) 10/15/17 07:00 Lymph # (Auto) 1.7 (1.2-3.4) 10/15/17 07:00 [place] # (Auto) 0.5 (0.1-0.6) 10/15/17 07:00 Eos # (Auto) 0.1 (0.0-0.7) 10/15/17 07:00 Baso # (Auto) 0.05 K/mm3 (0.0-2.0) 10/15/17 07:00 PT 12.1 SECONDS (9.4-12.5) 10/14/17 10:10 INR 1.05 (0.93-1.08) 10/14/17 10:10 APTT 33.8 Seconds (25.1-36.5) 10/14/17 10:10 pO2 78 mm/Hg (30-55) H 10/14/17 17:30 VBG pH 7.58 (7.32-7.43) H 10/14/17 17:30 VBG pCO2 33.0 (40-60) L 10/14/17 17:30 VBG HCO3 30.9 mmol/l (21-28) H 10/14/17 17:30 VBG Total CO2 31.9 mmol.L (22-28) H 10/14/17 17:30 VBG O2 Sat (Calc) 98.1 % (40-65) H 10/14/17 17:30 VBG Base Excess 8.9 mmol/L (0.0-2.0) H 10/14/17 17:30 VBG Potassium 3.8 mmol/L (3.6-5.2) 10/14/17 17:30 Sodium 139.0 mmol/L (132-148) 10/14/17 17:30 Chloride 102.0 mmol/L (98-107) 10/14/17 17:30 Glucose 98 mg/dl (75-110) 10/14/17 17:30 Lactate 1.4 mmol/L (0.7-2.1) 10/14/17 17:30 FiO2 21.0 % 10/14/17 17:30 Sodium 142 mmol/L (132-148) 10/15/17 07:00 Potassium 4.8 mmol/L (3.6-5.0) 10/15/17 07:00 Chloride 98 mmol/L (98-107) 10/15/17 07:00 Carbon Dioxide 29 mmol/L (21-33) 10/15/17 07:00 Anion Gap 20 (10-20) 10/15/17 07:00 BUN 31 mg/dL (7-21) H 10/15/17 07:00 Creatinine 5.9 mg/dl (0.8-1.5) H 10/15/17 07:00 Est GFR ( Amer) 12 10/15/17 07:00 Est GFR (Non-Af Amer) 10 10/15/17 07:00 POC Glucose (mg/dL) 208 mg/dL (65-110) H 10/15/17 11:04 Random Glucose 137 mg/dL (70-110) H 10/15/17 07:00 Calcium 9.7 mg/dL (8.4-10.5) 10/15/17 07:00 Total Bilirubin 1.0 mg/dL (0.2-1.3) 10/15/17 07:00 AST 16 U/L (17-59) L 10/15/17 07:00 ALT 20 U/L (7-56) 10/15/17 07:00 Alkaline Phosphatase 75 U/L (38-126) 10/15/17 07:00 Lactate Dehydrogenase 371 U/L (333-699) 10/14/17 10:10 Total Creatine Kinase 66 U/L (35-230) 10/14/17 10:10 Troponin I 0.02 ng/mL D 10/14/17 10:10 Total Protein 7.4 g/dL (5.8-8.3) 10/15/17 07:00 Albumin 4.1 g/dL (3.0-4.8) 10/15/17 07:00 Globulin 3.3 gm/dL 10/15/17 07:00 Albumin/Globulin Ratio 1.2 (1.1-1.8) 10/15/17 07:00 Amylase 59 U/L (35-125) 10/14/17 10:10 Lipase 166 U/L (23-300) 10/14/17 10:10 Venous Blood Potassium 3.8 mmol/L (3.6-5.2) 10/14/17 17:30 Urine Color Light yellow (YELLOW) 10/14/17 21:00 Urine Appearance Cloudy (CLEAR) 10/14/17 21:00 Urine pH 8.5 (4.7-8.0) 10/14/17 21:00 Ur Specific [place] 1.015 (1.005-1.035) 10/14/17 21:00 Urine Protein >=300 mg/dL (<30 mg/dL) H 10/14/17 21:00 Urine Glucose (UA) Negative mg/dL (NEGATIVE) 10/14/17 21:00 Urine Ketones 15 mg/dL (NEGATIVE) H 10/14/17 21:00 Urine Blood Large (NEGATIVE) H 10/14/17 21:00 Urine Nitrate Negative (NEGATIVE) 10/14/17 21:00 Urine Bilirubin Negative (NEGATIVE) 10/14/17 21:00 Urine Urobilinogen 0.2 E.U./dL (<1 E.U./dL) 10/14/17 21:00 Ur Leukocyte Esterase Large [place]/uL (NEGATIVE) H 10/14/17 21:00 Urine RBC Tntc /hpf (0-2) 10/14/17 21:00 Urine WBC Tntc /hpf (0-6) 10/14/17 21:00 Urine Bacteria Many (NEG) 10/14/17 21:00 Influenza Typ A,B (EIA) Negative for flu a/b (NEGATIVE) 10/14/17 17:30 Blood Type A POSITIVE 10/14/17 11:00 Antibody Screen Negative 10/14/17 11:00 BBK History Checked Patient has bt 10/14/17 11:00 - Hospital Course Hospital Course: 56 year old male with past medical history of ESRD (on HD , , Mon), CAD with hx of stents and CABG, HTN, DM , peripheral neuropathy presented with complaints of coffee ground emesis. Patient had no signs of active bleeding and was HDS on admission. Multiple CBC's showed stable H/H. Protonix was started. GI was consulted. GI had no plans for emergent interventions and requested patient be discharged home with protonix BID and carafate. Patient was noted to have signs of UTI on UA with indwelling martinez catheter of 2 months. Martinez was exchanged in ED. ID was consulted who recommended that patient only be treated if he was symptomatic, which he was not. Patient was discharged home on with protonix BID and carafate and instructions to follow up with his PMD within one week. - Date & Time of H&P Date of H&P: 10/14/17 Time of H&P: 18:15 Discharge Exam - Head Exam Head Exam: ATRAUMATIC, NORMOCEPHALIC - Eye Exam Eye Exam: EOMI, Normal appearance, PERRL - ENT Exam ENT Exam: Mucous Membranes Moist - Neck Exam Neck exam: Full Rom - Respiratory Exam Respiratory Exam: Clear to PA & Lateral, NORMAL BREATHING PATTERN, UNREMARKABLE - Cardiovascular Exam Cardiovascular Exam: REGULAR RHYTHM - GI/Abdominal Exam GI & Abdominal Exam: Normal Bowel Sounds, Unremarkable. absent: Tenderness - Extremities Exam Extremities exam: full ROM, normal capillary refill, pedal pulses present - Back Exam Back exam: NORMAL INSPECTION - Neurological Exam Neurological exam: Alert, CN II-XII Intact, Normal Gait, Oriented x3, Reflexes Normal - Psychiatric Exam Psychiatric exam: Normal Affect, Normal Mood - Skin Skin Exam: Dry, Intact, Normal Color, Warm Discharge Plan - Discharge Medications Prescriptions: Pantoprazole [Protonix EC Tab] 20 mg PO BID #60 ect Sucralfate [Carafate] 1 gm PO BID #60 tab - Follow Up Plan Condition: SERIOUS Disposition: HOME/ ROUTINE Instructions: How to Care for Your Martinez Catheter, Male, Pantoprazole, Sucralfate, How to Prevent Catheter Associated Urinary Tract Infections Additional Instructions: Please follow up with your primary care doctor within one week for post discharge hospital follow up Please take all medications as prescribed Your protonix dosage has changed to twice daily, please adhere to this dosing change Should your symptoms worsen or persist, please seek emergency medical attention Referrals: PCP,NO [Primary Care Provider] - <Jennifer Ritter - Last Filed: 10/16/17 09:11> Provider - Provider Date of Admission: 10/14/17 17:21 Attending physician: Jennifer Ritter MD Primary care physician: NO PRIMARY CARE PROVIDER Hospital Course - Lab Results Lab Results: Most Recent Lab Values WBC 5.8 10^3/ul (4.5-11.0) D 10/15/17 07:00 RBC 4.24 10^6/uL (3.5-6.1) 10/15/17 07:00 Hgb 11.7 g/dL (14.0-18.0) L 10/15/17 07:00 Hct 36.8 % (42.0-52.0) L 10/15/17 07:00 MCV 86.8 fl (80.0-105.0) 10/15/17 07:00 MCH 27.6 pg (25.0-35.0) 10/15/17 07:00 MCHC 31.8 g/dl (31.0-37.0) 10/15/17 07:00 RDW 15.6 % (11.5-14.5) H 10/15/17 07:00 Plt Count 180 10^3/uL (120.0-450.0) 10/15/17 07:00 MPV 10.5 fl (7.0-11.0) 10/15/17 07:00 Gran % 60.3 % (50.0-68.0) 10/15/17 07:00 Lymph % (Auto) 28.6 % (22.0-35.0) 10/15/17 07:00 [place] % (Auto) 8.3 % (1.0-6.0) H 10/15/17 07:00 Eos % (Auto) 1.9 % (1.5-5.0) 10/15/17 07:00 Baso % (Auto) 0.9 % (0.0-3.0) 10/15/17 07:00 Gran # 3.47 (1.4-6.5) 10/15/17 07:00 Lymph # (Auto) 1.7 (1.2-3.4) 10/15/17 07:00 [place] # (Auto) 0.5 (0.1-0.6) 10/15/17 07:00 Eos # (Auto) 0.1 (0.0-0.7) 10/15/17 07:00 Baso # (Auto) 0.05 K/mm3 (0.0-2.0) 10/15/17 07:00 PT 12.1 SECONDS (9.4-12.5) 10/14/17 10:10 INR 1.05 (0.93-1.08) 10/14/17 10:10 APTT 33.8 Seconds (25.1-36.5) 10/14/17 10:10 pO2 78 mm/Hg (30-55) H 10/14/17 17:30 VBG pH 7.58 (7.32-7.43) H 10/14/17 17:30 VBG pCO2 33.0 (40-60) L 10/14/17 17:30 VBG HCO3 30.9 mmol/l (21-28) H 10/14/17 17:30 VBG Total CO2 31.9 mmol.L (22-28) H 10/14/17 17:30 VBG O2 Sat (Calc) 98.1 % (40-65) H 10/14/17 17:30 VBG Base Excess 8.9 mmol/L (0.0-2.0) H 10/14/17 17:30 VBG Potassium 3.8 mmol/L (3.6-5.2) 10/14/17 17:30 Sodium 139.0 mmol/L (132-148) 10/14/17 17:30 Chloride 102.0 mmol/L (98-107) 10/14/17 17:30 Glucose 98 mg/dl (75-110) 10/14/17 17:30 Lactate 1.4 mmol/L (0.7-2.1) 10/14/17 17:30 FiO2 21.0 % 10/14/17 17:30 Sodium 142 mmol/L (132-148) 10/15/17 07:00 Potassium 4.8 mmol/L (3.6-5.0) 10/15/17 07:00 Chloride 98 mmol/L (98-107) 10/15/17 07:00 Carbon Dioxide 29 mmol/L (21-33) 10/15/17 07:00 Anion Gap 20 (10-20) 10/15/17 07:00 BUN 31 mg/dL (7-21) H 10/15/17 07:00 Creatinine 5.9 mg/dl (0.8-1.5) H 10/15/17 07:00 Est GFR ( Amer) 12 10/15/17 07:00 Est GFR (Non-Af Amer) 10 10/15/17 07:00 POC Glucose (mg/dL) 87 mg/dL (65-110) 10/15/17 15:57 Random Glucose 137 mg/dL (70-110) H 10/15/17 07:00 Calcium 9.7 mg/dL (8.4-10.5) 10/15/17 07:00 Total Bilirubin 1.0 mg/dL (0.2-1.3) 10/15/17 07:00 AST 16 U/L (17-59) L 10/15/17 07:00 ALT 20 U/L (7-56) 10/15/17 07:00 Alkaline Phosphatase 75 U/L (38-126) 10/15/17 07:00 Lactate Dehydrogenase 371 U/L (333-699) 10/14/17 10:10 Total Creatine Kinase 66 U/L (35-230) 10/14/17 10:10 Troponin I 0.02 ng/mL D 10/14/17 10:10 Total Protein 7.4 g/dL (5.8-8.3) 10/15/17 07:00 Albumin 4.1 g/dL (3.0-4.8) 10/15/17 07:00 Globulin 3.3 gm/dL 10/15/17 07:00 Albumin/Globulin Ratio 1.2 (1.1-1.8) 10/15/17 07:00 Amylase 59 U/L (35-125) 10/14/17 10:10 Lipase 166 U/L (23-300) 10/14/17 10:10 Venous Blood Potassium 3.8 mmol/L (3.6-5.2) 10/14/17 17:30 Urine Color Light yellow (YELLOW) 10/14/17 21:00 Urine Appearance Cloudy (CLEAR) 10/14/17 21:00 Urine pH 8.5 (4.7-8.0) 10/14/17 21:00 Ur Specific [place] 1.015 (1.005-1.035) 10/14/17 21:00 Urine Protein >=300 mg/dL (<30 mg/dL) H 10/14/17 21:00 Urine Glucose (UA) Negative mg/dL (NEGATIVE) 10/14/17 21:00 Urine Ketones 15 mg/dL (NEGATIVE) H 10/14/17 21:00 Urine Blood Large (NEGATIVE) H 10/14/17 21:00 Urine Nitrate Negative (NEGATIVE) 10/14/17 21:00 Urine Bilirubin Negative (NEGATIVE) 10/14/17 21:00 Urine Urobilinogen 0.2 E.U./dL (<1 E.U./dL) 10/14/17 21:00 Ur Leukocyte Esterase Large [place]/uL (NEGATIVE) H 10/14/17 21:00 Urine RBC Tntc /hpf (0-2) 10/14/17 21:00 Urine WBC Tntc /hpf (0-6) 10/14/17 21:00 Urine Bacteria Many (NEG) 10/14/17 21:00 Influenza Typ A,B (EIA) Negative for flu a/b (NEGATIVE) 10/14/17 17:30 Blood Type A POSITIVE 10/14/17 11:00 Antibody Screen Negative 10/14/17 11:00 BBK History Checked Patient has bt 10/14/17 11:00 Attending/Attestation - Attestation I have personally seen and examined this patient.: Yes I have fully participated in the care of the patient.: Yes I have reviewed all pertinent clinical information, including history, physical exam and plan: Yes Notes (Text): 10/16/17 09:03 56 year old male with past medical history of ESRD (HD TTS), CAD s/p stents and CABG, hypertension, diabetes and history of urinary retention with chronic indwelling martinez who presented with complaint of coffee ground emesis. His last EGD was few months prior which showed esophagitis. He was started on iv protonix and zofran prn. He was seen by GI and also started on carafate. His symptoms resolved and his diet was advanced which he tolerated. Patient had +UA, however without fever, leukocytosis or symptoms of UTI. Case was discussed with Dr. Cohn who did not recommended antibiotics. Patient had his martinez cather exchanged (bag and tube) while in hospital. He states he change it often at home as well. Patient is discharged home to follow up with his pmd. Follow up with nephrology for HD. Continue with protonix and carafate. Counselled on medication compliance. Recommend to follow up with urology for urinary retention, consider d/c martinez if tolerated with urologist. Jennifer Ritter MD Hospitalist.
[2017-10-15 18:31] VITALS: PULSE 82
== END 2017-10-15 19:00 | disposition home or self-care (01) ==
LOC: ED 09:37 → ERH 17:21 → INTOOBSV 17:21 → ERH 18:35 → 3RSO 20:28
PROVIDERS: ADMIT Internal Medicine; ATTEND Internal Medicine
DX: K92.0 Hematemesis (principal); E11.42 Type 2 diabetes mellitus with diabetic polyneuropathy; E78.00 Pure hypercholesterolemia, unspecified; E78.5 Hyperlipidemia, unspecified; F12.90 Cannabis use, unspecified, uncomplicated; I12.0 Hypertensive chronic kidney disease with stage 5 chronic kidney disease or end stage renal disease; I25.10 Atherosclerotic heart disease of native coronary artery without angina pectoris; I25.2 Old myocardial infarction; J81.1 Chronic pulmonary edema; K22.10 Ulcer of esophagus without bleeding; K29.50 Unspecified chronic gastritis without bleeding; N18.6 End stage renal disease; N40.0 Benign prostatic hyperplasia without lower urinary tract symptoms; Z80.0 Family history of malignant neoplasm of digestive organs; E11.22 Type 2 diabetes mellitus with diabetic chronic kidney disease; Z86.73 Personal history of transient ischemic attack (TIA), and cerebral infarction without residual deficits; Z87.440 Personal history of urinary (tract) infections; Z91.19 Patient's noncompliance with other medical treatment and regimen; Z95.1 Presence of aortocoronary bypass graft; Z95.5 Presence of coronary angioplasty implant and graft; Z99.2 Dependence on renal dialysis; Z90.49 Acquired absence of other specified parts of digestive tract; Z89.431 Acquired absence of right foot; Z87.892 Personal history of anaphylaxis; Z91.013 Allergy to seafood; A08.4 Viral intestinal infection, unspecified; G43.A0 Cyclical vomiting, in migraine, not intractable; T40.7X5A Adverse effect of cannabis (derivatives), initial encounter; R33.9 Retention of urine, unspecified
CPT/HCPCS: 36415; 71045; 80053; 81001; 82150; 82550; 82803; 82948; 83615; 83690; 84484; 85025; 85610; 85730; 86850; 86900; 87040; 87086; 87804; 93005; 96374; 96375; 96376; 99285; C9113; G0378; J2405

== ENCOUNTER 2017-12-28 09:09 | Observation (INO) | payer MEDICAID ==
[2017-12-28 09:10] VITALS: BMI 26.6
--- NOTE | 2017-12-28 09:20 | ED PDOC ---
Arrival/HPI - General Time Seen by Provider: 12/28/17 09:16 Historian: Patient - History of Present Illness Narrative History of Present Illness (Text): 12/28/17 09:20 A 57 year old male, whose past medical history includes coronary artery bypass grafts x3, hypertension, type 2 diabetes mellitus, hypercholesterolemia, acute renal failure, malignant hypertension, hyperglycemia, CVA, elevated creatine kinase, and ESRD on dialysis (,,Mon), presents to the emergency department c/o generalized weakness, nausea, and dark diarrhea x 4 days. Patient admits feeling mild fatigue 2 days prior onset of symptoms. Patient denies NEVAREZ, focal deficits, SOB, CP, abdominal pain, or urinary symptoms. Patient has a permanent urinary martinez catheter. Patient is supposed to have dialysis on Monday, , and Monday. Last Dialysis was 7 days ago. Patient denies diplopia, dysarthria, abnormal gait, CMS, recent travel, recent illness, or fever. Time/Duration: < week Context: Home Past Medical History - Provider Review Nursing Documentation Reviewed: Yes - Infectious Disease Hx of Infectious Diseases: None - Tetanus Immunization Tetanus Immunization: Unknown - Cardiac Hx Cardiac Disorders: Yes (CAD, MS x 3, CABG x 3) Hx Hypertension: Yes - Pulmonary Hx Respiratory Disorders: Yes Other/Comment: PULMONARY EDEMA - Neurological HX Cerebrovascular Accident: Yes - HEENT Hx HEENT Disorder: Yes (CONTACT LENSES) - Renal Hx Renal Failure: Yes (HD ,,MON) - Endocrine/Metabolic Hx Diabetes Mellitus Type 2: Yes - Hematological/Oncological Hx Blood Transfusions: Yes Hx Blood Transfusion Reaction: No - Integumentary Hx Dermatological Disorder: Yes Other/Comment: righty lower ext rash, pt stated "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" - Musculoskeletal/Rheumatological Hx Musculoskeletal Disorders: No - Gastrointestinal Hx Gastrointestinal Disorders: No - Genitourinary/Gynecological Hx Urinary Tract Infection: Yes - Psychiatric Hx Emotional Abuse: No Hx Physical Abuse: No Hx Substance Use: Yes - Surgical History Hx Amputation: Yes (R toes) Hx Cardiac Catheterization: Yes (09/09) Hx Coronary Stent: Yes Hx Open Heart Surgery: Yes (12-26-12) Other/Comment: temporary dialysis catheter. ERIC PICC line - Anesthesia Hx Anesthesia Reactions: No Hx Malignant Hyperthermia: No - Suicidal Assessment Feels Threatened In Home Enviroment: No Family/Social History - Physician Review Nursing Documentation Reviewed: Yes Family/Social History: Other (noncontributory) Smoking Status: Never Smoked Hx Alcohol Use: No Hx Substance Use: Yes Hx Substance Use Treatment: No Allergies/Home Meds Allergies/Adverse Reactions: Allergies Seafood Allergy (Uncoded 12/28/17 09:30) ANAPHYLAXIS Home Medications: Home Meds Medication Instructions Recorded Confirmed Unobtainable 12/28/17 12/28/17 Review of Systems - Review of Systems Constitutional: Normal. absent: Fatigue, Weight Change, Fevers, Night Sweats Eyes: Normal ENT: Normal Respiratory: Normal. absent: SOB, Cough Cardiovascular: Normal. absent: Chest Pain, Palpitations Gastrointestinal: Nausea, Vomiting, Other (dark watery stool). absent: Abdominal Pain Genitourinary Male: Normal Musculoskeletal: Normal Skin: Normal Neurological: Normal Endocrine: Normal Hemo/Lymphatic: Normal Psychiatric: Normal Physical Exam Vital Signs Temp Pulse Resp BP Pulse Ox 12/28/17 16:00 68 18 158/69 H 98 12/28/17 11:30 64 16 168/68 H 98 12/28/17 11:23 64 18 145/68 98 12/28/17 09:43 98.5 F 61 16 148/72 98 Temperature: Afebrile Blood Pressure: Normal Pulse: Regular Respiratory Rate: Normal Appearance: Positive for: Well-Appearing, Non-Toxic, Comfortable Pain Distress: None Mental Status: Positive for: Alert and Oriented X 3 - Systems Exam Head: Present: Atraumatic, Normocephalic Pupils: Present: PERRL Extroacular Muscles: Present: EOMI Conjunctiva: Present: Normal Mouth: Present: Moist Mucous Membranes Neck: Present: Normal Range of Motion Respiratory/Chest: Present: Clear to Auscultation, Good Air Exchange. No: Respiratory Distress, Accessory Muscle Use Cardiovascular: Present: Regular Rate and Rhythm, Normal S1, S2. No: Murmurs Abdomen: No: Tenderness, Distention, Peritoneal Signs, Rebound, Guarding Rectal: Present: Occult Blood ((+) GUAIAC positive with negative control. Stool is black, and pasty), Normal Rectal Tone. No: Rectal Tenderness, Gross Blood, Melena, Fissures, Nodule/Mass/Lesions Back: Present: Normal Inspection. No: CVA Tenderness Upper Extremity: Present: Normal Inspection, Normal ROM. No: Cyanosis, Edema Lower Extremity: Present: Normal Inspection, Normal ROM. No: Edema Neurological: Present: GCS=15, CN II-XII Intact, Speech Normal, Motor Func Grossly Intact, Normal Sensory Function, Normal Cerebellar Funct, Gait Normal, Memory Normal Skin: Present: Warm, Dry, Normal Color. No: Rashes Psychiatric: Present: Alert, Oriented x 3, Normal Insight, Normal Concentration Medical Decision Making ED Course and Treatment: 12/28/2017 11:30 Chest X-ray IMPRESSION: No active disease. Dictator: Nikita Aponte MD 12/28/17 14:03 Patient still in Dialysis 12/28/17 16:14 Patient just returned to ED from Dialysis. 12/28/17 17:[address] Moore, Hospitalist regarding patient c/o black stool x 4 days. Patient just had Dialysis today. I reviewed labs with hospitalist. He recommended remote Telemetry for observation. Re-evaluation Time: 17:00 Reassessment Condition: Re-examined, Improving,but remains with symptoms - Lab Interpretations Lab Results: 12/28/17 10:10 12/28/17 10:10 Lab Results 12/28/17 10:10: Phosphorus 9.4 H 12/28/17 10:10: Sodium 138, Chloride 105, Potassium 5.4 H, Carbon Dioxide 14 L, Anion Gap 25 H, BUN 92 H, Creatinine 11.1 H* D, Est GFR ( Amer) 6, Est GFR (Non-Af Amer) 5, Random Glucose 185 H, Calcium 8.1 L, Total Bilirubin 0.3, AST 7 L D, ALT 23, Alkaline Phosphatase 52, Total Protein 6.1, Albumin 3.5, Globulin 2.5, Albumin/Globulin Ratio 1.4 12/28/17 10:10: Magnesium 1.9, Lactate Dehydrogenase 376, Total Creatine Kinase 84, Troponin I 0.01 D 12/28/17 10:10: pO2 81 H, VBG pH 7.29 L, VBG pCO2 35.0 L, VBG HCO3 16.8 L, VBG Total CO2 17.9 L, VBG O2 Sat (Calc) 98.1 H, VBG Base Excess -8.9 L, VBG Potassium 5.3 H, Sodium 134.0, Chloride 107.0, Glucose 200 H, Lactate 1.0, FiO2 21.0, Venous Blood Potassium 5.3 H 12/28/17 10:10: WBC 6.8, RBC 3.51, Hgb 10.1 L, Hct 30.8 L, MCV 87.7, MCH 28.8, MCHC 32.8, RDW 15.3 H, Plt Count 176, MPV 11.2 H, Gran % 69.0 H, Lymph % (Auto) 21.7 L, [place] % (Auto) 5.7, Eos % (Auto) 3.2, Baso % (Auto) 0.4, Gran # 4.71, Lymph # (Auto) 1.5, [place] # (Auto) 0.4, Eos # (Auto) 0.2, Baso # (Auto) 0.03 I have reviewed the lab results: Yes Interpretation: Abnormal lab values - RAD Interpretation Narrative RAD Interpretations (Text): 12/28/17 15:21 HISTORY: admission COMPARISON: 10/14/2017 FINDINGS: LUNGS: No active pulmonary disease. PLEURA: No significant pleural effusion identified, no pneumothorax apparent. CARDIOVASCULAR: Mild cardiomegaly OSSEOUS STRUCTURES: Sternal wires VISUALIZED UPPER ABDOMEN: Normal. OTHER FINDINGS: Right-sided dialysis catheter IMPRESSION: No active disease. Radiology Orders: 12/28/17 09:42 CHEST PORTABLE [RAD] Stat - EKG Interpretation EKG Interpretation (Text): 12/28/17 10:[address] Jaramillo Interpreted by ED Physician: Yes (NSR @ [address] changes) Type: 12 lead EKG Comparison: No previous EKG avail. - Medication Orders Current Medication Orders: Discontinued Medications Ondansetron HCl (Zofran Inj) 4 mg IVP STAT STA Stop: 12/28/17 09:49 Last Admin: 12/28/17 10:00 Dose: 4 mg IVP Administration Document 12/28/17 10:00 HUGO (Rec: 12/28/17 10:02 HUGO [id number]) Charges for Administration # of IVP Administrations 1 Pantoprazole Sodium (Protonix Inj) 40 mg IVP STAT STA Stop: 12/28/17 09:44 Last Admin: 12/28/17 10:02 Dose: 40 mg IVP Administration Document 12/28/17 10:02 HUGO (Rec: 12/28/17 10:03 HUGO [id number]) Charges for Administration # of IVP Administrations 1 Disposition/Present on Arrival - Present on Arrival Any Indicators Present on Arrival: No History of DVT/PE: No History of Uncontrolled Diabetes: No Urinary Catheter: Yes History Surgical Site Infection Following: None - Disposition Have Diagnosis and Disposition been Completed?: Yes Diagnosis: GI bleed Disposition: HOSPITALIZED Disposition Time: 17:00 Patient Plan: Observation Condition: STABLE
[2017-12-28 10:17] LABS: VENOUS BLOOD GAS BASE EXCESS -8.9 mmol/L (0.0-2.0); VENOUS BLOOD GAS PO2 81 mm/Hg (30-55); VENOUS BLOOD PH 7.29 (7.32-7.43)
[2017-12-28 10:20] LABS: BASO # 0.03 K/mm3 (0.0-2.0); BASO % 0.4 % (0.0-3.0); EOS # 0.2 (0.0-0.7); EOS % 3.2 % (1.5-5.0); GRAN # 4.71 (1.4-6.5); HEMOGLOBIN 10.1 g/dL (14.0-18.0); LYMPH # 1.5 (1.2-3.4); LYMPH % 21.7 % (22.0-35.0); MEAN CELL VOLUME 87.7 fl (80.0-105.0); MEAN CORPUSCULAR HEMOGLOBIN 28.8 pg (25.0-35.0); MEAN CORPUSCULAR HGB CONC 32.8 g/dl (31.0-37.0); MEAN PLATELET VOLUME 11.2 fl (7.0-11.0); MONO # 0.4 (0.1-0.6); MONO % 5.7 % (1.0-6.0); RBC 3.51 10^6/uL (3.5-6.1); RED CELL DISTRIBUTION WIDTH 15.3 % (11.5-14.5); WHITE BLOOD COUNT 6.8 10^3/ul (4.5-11.0)
[2017-12-28 10:42] LABS: TROPONIN I 0.01 ng/mL
--- NOTE | 2017-12-28 10:47 | RAD ---
HISTORY: admission COMPARISON: 10/14/2017 FINDINGS: LUNGS: No active pulmonary disease. PLEURA: No significant pleural effusion identified, no pneumothorax apparent. CARDIOVASCULAR: Mild cardiomegaly OSSEOUS STRUCTURES: Sternal wires VISUALIZED UPPER ABDOMEN: Normal. OTHER FINDINGS: Right-sided dialysis catheter IMPRESSION: No active disease.
[2017-12-28 16:43] LABS: ALB/GLOB RATIO 1.4 (1.1-1.8); ALBUMIN 3.5 g/dL (3.0-4.8); CALCIUM 8.1 mg/dL (8.4-10.5)
--- NOTE | 2017-12-28 17:23 | CP.PCM.HP ---
<Olivier Kumar - Last Filed: 12/28/17 20:28> History of Present Illness - History of Present Illness History of Present Illness: IM H&P for Hospitalist Service CC: Nausea, emesis, malaise x1 weeks, 1-2x dark stools/diarrhea, No dialysis 56 year old male with past medical history of ESRD (on HD , , Mon), AL x 3, CAD with 3x stents and CABG, HTN, DM, peripheral neuropathy, gastroparesis , and chronic non-compliance who presents to the ED due to malaise, nausea/ emesis, and diarrhea for approximately 1 week, with dark stools the last 2 times. Reports missing the last 1 week of HD due to frequent diarrhea, fear of soiling himself in public. At time of exam in ED, patient s/p HD (done today prior to admission). Denies chest pain, shortness of breath, current emesis, any bilious or bloody emesis, hemoptysis, productive cough, fevers, chills, focal weakness, or syncope/near-syncope. Does admit to dry cough, and longstanding peripheral neuropathy 2/2 poorly controlled DM. Reports the nausea , emesis, and malaise are all improved today prior to presentation, but the dark stools prompted him to present given hx of prior suspected GI bleed. All other ROS in 12-system review negative. Of note, he now has accessible AV fistula, reports pending removal of his right chest wall Shiley cath. Medical Hx: as above Surgical Hx: Stents x 3, CABG, Cholecystectomy, left hip surgery, Left knee surgery, Right foot partial amputation Social Hx: Former ETOH abuser (~40 years abuse, doesn't quantify amount, quit 7 years ago), denies tobacco/IVDA, admits marijuana intermittently Family Hx: denies Endo Hx: 04/2017 showed non bleeding esophageal ulcer, LA grade C esophagitis and chronic gastritis PMD: Dr. Pink Instantizer Operator: Dr. Garrett Present on Admission - Present on Admission Any Indicators Present on Admission: Yes History of DVT/PE: No History of Uncontrolled Diabetes: Yes Urinary Catheter: Yes (reports hasn't been changed in > 2 months) Review of Systems - Review of Systems All systems: reviewed and no additional remarkable complaints except (as per HPI ) Past Patient History - Infectious Disease Hx of Infectious Diseases: None - Tetanus Immunizations Tetanus Immunization: Unknown - Past Medical History & Family History Past Medical History?: Yes - Past Social History Smoking Status: Never Smoked - CARDIAC Hx Cardiac Disorders: Yes (CAD, AL x 3, CABG x 3) Hx Hypertension: Yes - PULMONARY Hx Respiratory Disorders: Yes Other/Comment: PULMONARY EDEMA - NEUROLOGICAL HX Cerebrovascular Accident: Yes - HEENT Hx HEENT Problems: Yes (CONTACT LENSES) - RENAL Hx Renal Failure: Yes (HD TUES,THUR,SAT) - ENDOCRINE/METABOLIC Hx Diabetes Mellitus Type 2: Yes - HEMATOLOGICAL/ONCOLOGICAL Hx Blood Transfusions: Yes Hx Blood Transfusion Reaction: No - INTEGUMENTARY Hx Dermatological Problems: Yes Other/Comment: righty lower ext rash, pt stated "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" - MUSCULOSKELETAL/RHEUMATOLOGICAL Hx Musculoskeletal Disorders: No - GASTROINTESTINAL Hx Gastrointestinal Disorders: No - GENITOURINARY/GYNECOLOGICAL Hx Urinary Tract Infection: Yes - PSYCHIATRIC Hx Emotional Abuse: No Hx Physical Abuse: No Hx Substance Use: Yes - SURGICAL HISTORY Hx Amputation: Yes (R toes) Hx Cardiac Catheterization: Yes (09/09) Hx Coronary Stent: Yes Hx Open Heart Surgery: Yes (12-26-12) Other/Comment: temporary dialysis catheter. ERIC PICC line - ANESTHESIA Hx Anesthesia Reactions: No Hx Malignant Hyperthermia: No Meds Allergies/Adverse Reactions: Allergies Allergy/AdvReac Type Severity Reaction Status Date / Time Seafood Allergy ANAPHYLAXIS Uncoded 12/28/17 09:30 Physical Exam - Constitutional Appears: Non-toxic, No Acute Distress, Unkempt, Chronically Ill - Head Exam Head Exam: ATRAUMATIC, NORMAL INSPECTION, NORMOCEPHALIC - Eye Exam Eye Exam: EOMI, Normal appearance, PERRL. absent: Conjunctival injection, Scleral icterus Pupil Exam: NORMAL ACCOMODATION, PERRL. absent: Fixed, Irregular, Unequal - ENT Exam ENT Exam: Mucous Membranes Moist Additional comments: no pooled secretions, no bleeding or dried blood appreciated - Neck Exam Neck exam: Positive for: Full Rom, Normal Inspection - Respiratory Exam Respiratory Exam: Decreased Breath Sounds (mildly decreased breath sounds in all davis, otherwise CTAB), Clear to Auscultation Bilateral, NORMAL BREATHING PATTERN. absent: Accessory Muscle Use, Chest Wall Tenderness, Rales, Rhonchi, Wheezes, Respiratory Distress - Cardiovascular Exam Cardiovascular Exam: REGULAR RHYTHM, RRR, +S1, +S2. absent: Bradycardia, Tachycardia, Irregular Rhythm, JVD, +S4 - GI/Abdominal Exam GI & Abdominal Exam: Normal Bowel Sounds (prominent but not hyperactive), Soft, Tenderness (mild epigastric tenderness with deep palpation, minimal diffuse tenderness with deep palpation). absent: Diminished Bowel Sounds, Distended ( obese but not distended), Firm, Guarding, Hyperactive Bowel Sounds, Hypoactive Bowel Sounds, Rigid - Extremities Exam Additional comments: right foot partial amputation, difficult to palpate dorsalis pedis pulses, unable to palpate any other distal LE pulses but legs not acutely cold to palpation, chronic skin changes (waxy, cool, discoloration) consistent with chronic peripheral vascular disease - Neurological Exam Additional comments: alert and awake, following all commands appropriately, moving extremities spontaneously - Psychiatric Exam Psychiatric exam: Flat Affect, Normal Mood - Skin Additional comments: skin cool bilaterally, multiple patches of dry skin and sites of chronic skin changes suggestive of vascular insufficiency (concentrated at anterior shins and ankles) Results - Vital Signs Recent Vital Signs: Last Vital Signs Temp 98.5 F 12/28/17 09:43 Pulse 68 12/28/17 16:00 Resp 18 12/28/17 16:00 BP 158/69 H 12/28/17 16:00 Pulse Ox 98 12/28/17 16:00 - Labs Result Diagrams: 12/28/17 10:10 12/28/17 19:28 Labs: Laboratory Results - last 24 hr 12/28/17 12/28/17 12/28/17 10:10 10:10 10:10 WBC 6.8 RBC 3.51 Hgb 10.1 L Hct 30.8 L MCV 87.7 MCH 28.8 MCHC 32.8 RDW 15.3 H Plt Count 176 MPV 11.2 H Gran % 69.0 H Lymph % (Auto) 21.7 L Shelby % (Auto) 5.7 Eos % (Auto) 3.2 Baso % (Auto) 0.4 Gran # 4.71 Lymph # (Auto) 1.5 Shelby # (Auto) 0.4 Eos # (Auto) 0.2 Baso # (Auto) 0.03 pO2 81 H VBG pH 7.29 L VBG pCO2 35.0 L VBG HCO3 16.8 L VBG Total CO2 17.9 L VBG O2 Sat (Calc) 98.1 H VBG Base Excess -8.9 L VBG Potassium 5.3 H Sodium 134.0 Chloride 107.0 Glucose 200 H Lactate 1.0 FiO2 21.0 Potassium Carbon Dioxide Anion Gap BUN Creatinine Est GFR ( Amer) Est GFR (Non-Af Amer) Random Glucose Calcium Magnesium 1.9 Total Bilirubin AST ALT Alkaline Phosphatase Lactate Dehydrogenase 376 Total Creatine Kinase 84 Troponin I 0.01 D Total Protein Albumin Globulin Albumin/Globulin Ratio Venous Blood Potassium 5.3 H 12/28/17 10:10 WBC RBC Hgb Hct MCV MCH MCHC RDW Plt Count MPV Gran % Lymph % (Auto) Shelby % (Auto) Eos % (Auto) Baso % (Auto) Gran # Lymph # (Auto) Shelby # (Auto) Eos # (Auto) Baso # (Auto) pO2 VBG pH VBG pCO2 VBG HCO3 VBG Total CO2 VBG O2 Sat (Calc) VBG Base Excess VBG Potassium Sodium 138 Chloride 105 Glucose Lactate FiO2 Potassium 5.4 H Carbon Dioxide 14 L Anion Gap 25 H BUN 92 H Creatinine 11.1 H* D Est GFR ( Amer) 6 Est GFR (Non-Af Amer) 5 Random Glucose 185 H Calcium 8.1 L Magnesium Total Bilirubin 0.3 AST 7 L D ALT 23 Alkaline Phosphatase 52 Lactate Dehydrogenase Total Creatine Kinase Troponin I Total Protein 6.1 Albumin 3.5 Globulin 2.5 Albumin/Globulin Ratio 1.4 Venous Blood Potassium Assessment & Plan - Assessment and Plan (Free Text) Assessment: This is a 56 yo M with PMH of ESRD (HD //Mon), CAD with hx of stents and CABG, HTN, DM , peripheral neuropathy presents to the ED possible melena, r/ o lower vs upper GI bleed. Plan: 1) Dark stools, guiac positive -No signs of active bleeding, hemodynamically stable, no further episodes of dark stools, no bright red blood -Stool occult in ED heme-occult positive, no fissures or actively bleeding lesions appreciated on exam -CLD this evening, NPO after midnight for possible procedure in AM -Hb 10.1 on admit, baseline as per prior charting 9-11, so at baseline, and remains hemodynamically stable -repeat CBC in AM to reassess, no need for serial H&H's at this time -Protonix 40mg IVP BID -GI (Dr. Olivo) consulted, appreciate all recs -previously listed as being on ASA 81mg daily, but listed as d/c in med rec on admission; given extensive cardiac hx, should likely remain on ASA, laila as not appreciably bleeding significantly, so benefit outweighs risk, will continue 81mg daily 2) CAD s/p stents and CABG -Resume Aspirin as above -Resume home Lipitor 40mg daily, metoprolol 25mg BID 3) HTN -Currently hemodynamically stable -Cont metoprolol given cardiac hx; resume home BP medications stepwise to avoid bottoming-out pressure -Will restart Imdur 60mg daily, Hydralazine 25mg TID, hold parameter if SBP < 110 4) ESRD on HD () -HD was done today prior to admission -Nephro consulted, appreciate all recs 5) DM -Lispro low sliding scale -[facility] Dispo: Remote tele obs, pending Decision To Admit - Pt Status Changed To: Hospital Disposition Of: Observation - . Bed Request Type: Remote Telemetry <Corey Moore - Last Filed: 12/29/17 09:00> Results - Vital Signs Recent Vital Signs: Last Vital Signs Temp 100.1 F H 12/29/17 06:00 Pulse 65 12/29/17 06:00 Resp 18 12/29/17 06:00 BP 191/98 H 12/29/17 06:00 Pulse Ox 96 12/29/17 06:00 - Labs Result Diagrams: 12/29/17 05:20 12/29/17 05:20 Labs: Laboratory Results - last 24 hr 12/28/17 12/28/17 12/28/17 19:28 19:28 21:51 WBC RBC Hgb Hct MCV MCH MCHC RDW Plt Count MPV Gran % Lymph % (Auto) Shelby % (Auto) Eos % (Auto) Baso % (Auto) Gran # Lymph # (Auto) Shelby # (Auto) Eos # (Auto) Baso # (Auto) Sodium 139 Potassium 4.0 Chloride 96 L Carbon Dioxide 27 Anion Gap 20 BUN 47 H Creatinine 7.2 H Est GFR ( Amer) 10 Est GFR (Non-Af Amer) 8 POC Glucose (mg/dL) 143 H Random Glucose 175 H Calcium 8.7 Phosphorus Magnesium 1.9 Total Bilirubin 0.5 AST 15 L D ALT 15 Alkaline Phosphatase 61 Total Protein 7.1 Albumin 4.1 Globulin 3.0 Albumin/Globulin Ratio 1.4 Blood Type A POSITIVE Antibody Screen Negative BBK History Checked Patient has bt 12/29/17 12/29/17 05:20 05:20 WBC 5.7 RBC 4.01 Hgb 11.4 L Hct 35.0 L MCV 87.3 MCH 28.4 MCHC 32.6 RDW 15.0 H Plt Count 182 MPV 11.0 Gran % 59.7 Lymph % (Auto) 27.5 Shelby % (Auto) 7.0 H Eos % (Auto) 4.6 Baso % (Auto) 1.2 Gran # 3.39 Lymph # (Auto) 1.6 Shelby # (Auto) 0.4 Eos # (Auto) 0.3 Baso # (Auto) 0.07 Sodium 138 Potassium 4.5 Chloride 97 L Carbon Dioxide 27 Anion Gap 19 BUN 52 H Creatinine 8.1 H* Est GFR ( Amer) 8 Est GFR (Non-Af Amer) 7 POC Glucose (mg/dL) Random Glucose 119 H Calcium 8.4 Phosphorus 7.8 H Magnesium 2.0 Total Bilirubin 0.6 AST 16 L ALT 16 Alkaline Phosphatase 59 Total Protein 7.0 Albumin 3.9 Globulin 3.1 Albumin/Globulin Ratio 1.3 Blood Type Antibody Screen BBK History Checked Attending/Attestation - Attestation I have personally seen and examined this patient.: Yes I have fully participated in the care of the patient.: Yes I have reviewed all pertinent clinical information: Yes Notes (Text): 12/29/17 08:59 Medical record note made by the resident after discussion with my direction and input after the patient was personally seen and examined by me. I have reviewed the chart and agree that the record accurately reflects by personal performance of the history, physical exam, data review, and medical decision-making, in the course for the patient. I have also personally directed the plan of care. 57 year old male with past medical history of ESRD , CAD s/p stents and CABG, hypertension, diabetes ,Esophagitis and noncompliance with medication and dialysis regimen who presents with complaint of melena off and on for last 4 days. Patient was also having Nausea and vomiting. There is no active bleeding here in the ER.Hemoglobin is close to his base line. We will start patient on PPI and will obtain serial H/H.We will also get GI evaluation . Issue of compliance with medication and dialysis regimen was discussed in detail. Management plan was discussed in detail with patient. Education was provided. Prognosis is guarded.
[2017-12-28 20:03] LABS: ALB/GLOB RATIO 1.4 (1.1-1.8); ALBUMIN 4.1 g/dL (3.0-4.8); CALCIUM 8.7 mg/dL (8.4-10.5)
[2017-12-28] MEDS ORDERED: Insulin Lispro (humaLOG) LOW Coverage SC SCH (22:00)
--- NOTE | 2017-12-28 22:26 | CARD ---
APPROVED REPORT EKG Measurement Heart [id number] <Conclusion> Normal sinus rhythm Possible Inferior infarct, age undetermined Cannot rule out Anteroseptal infarct, age undetermined Abnormal ECG
[2017-12-29 06:04] LABS: BASO # 0.07 K/mm3 (0.0-2.0); BASO % 1.2 % (0.0-3.0); EOS # 0.3 (0.0-0.7); EOS % 4.6 % (1.5-5.0); GRAN # 3.39 (1.4-6.5); GRAN % 59.7 % (50.0-68.0); HEMOGLOBIN 11.4 g/dL (14.0-18.0); LYMPH # 1.6 (1.2-3.4); LYMPH % 27.5 % (22.0-35.0); MEAN CELL VOLUME 87.3 fl (80.0-105.0); MEAN CORPUSCULAR HEMOGLOBIN 28.4 pg (25.0-35.0); MEAN CORPUSCULAR HGB CONC 32.6 g/dl (31.0-37.0); MONO # 0.4 (0.1-0.6); RBC 4.01 10^6/uL (3.5-6.1); WHITE BLOOD COUNT 5.7 10^3/ul (4.5-11.0)
[2017-12-29 07:29] LABS: ALB/GLOB RATIO 1.3 (1.1-1.8); ALBUMIN 3.9 g/dL (3.0-4.8); CALCIUM 8.4 mg/dL (8.4-10.5)
--- NOTE | 2017-12-29 07:59 | CP.PCM.CON ---
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 Patient notes four to five days of nausea, vomiting, and diarrhea that started on monday after eating take out consisting of veal with almonds that didn't settle well with his stomach. He had HD on Monday and reports dark stool that usually occurs due to receiving iron infusion with dialysis. He notes no bowel movements for the last two days due to loss of appetite. Reports chronic intermittent nausea and acid reflux with admitted non-compliance to Protonix therapy. Denies NSAIDs or alcohol use. Prior EGD 05/08/2017 showing nonbleeding esophageal ulcers, LAGC esophagitis, and chronic gastritis. Noncompliance to recommended outpatient follow up for colonoscopy. Family- father-pancreatic cancer, denies colon cancer Social -marijuana use at least once a month x10 years; quit alcohol use 6 years ago, prior vodka use x 30 years; denies tobacco use Surgery- CABG, cardiac stentsx3, right foot partial amputation, HD access, left hip surgery, Left knee surgery, cholecystectomy Review of Systems - Review of Systems Review of Systems: 12-point review of systems negative except for as above Past Patient History - Infectious Disease Hx of Infectious Diseases: None - Tetanus Immunizations Tetanus Immunization: Unknown - Past Medical History & Family History Past Medical History?: Yes - Past Social History Smoking Status: Never Smoked - CARDIAC Hx Cardiac Disorders: Yes (CAD, PA x 3, CABG x 3) Hx Hypertension: Yes - PULMONARY Hx Respiratory Disorders: Yes Other/Comment: PULMONARY EDEMA - NEUROLOGICAL HX Cerebrovascular Accident: Yes - HEENT Hx HEENT Problems: Yes (CONTACT LENSES) - RENAL Hx Renal Failure: Yes (HD ,,MON) - ENDOCRINE/METABOLIC Hx Diabetes Mellitus Type 2: Yes - HEMATOLOGICAL/ONCOLOGICAL Hx Blood Transfusions: Yes Hx Blood Transfusion Reaction: No - INTEGUMENTARY Hx Dermatological Problems: Yes Other/Comment: righty lower ext rash, pt stated "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" - MUSCULOSKELETAL/RHEUMATOLOGICAL Hx Musculoskeletal Disorders: No - GASTROINTESTINAL Hx Gastrointestinal Disorders: No - GENITOURINARY/GYNECOLOGICAL Hx Urinary Tract Infection: Yes - PSYCHIATRIC Hx Emotional Abuse: No Hx Physical Abuse: No Hx Substance Use: Yes - SURGICAL HISTORY Hx Amputation: Yes (R toes) Hx Cardiac Catheterization: Yes (09/09) Hx Coronary Stent: Yes Hx Open Heart Surgery: Yes (12-26-12) Other/Comment: temporary dialysis catheter. ERIC PICC line - ANESTHESIA Hx Anesthesia Reactions: No Hx Malignant Hyperthermia: No Meds Allergies/Adverse Reactions: Allergies Allergy/AdvReac Type Severity Reaction Status Date / Time Seafood Allergy ANAPHYLAXIS Uncoded 12/28/17 09:30 - Medications Medications: Current Medications Aspirin (Aspirin Chewable) 81 mg PO DAILY [facility] Last Admin: 12/28/17 20:18 Dose: 81 mg Atorvastatin Calcium (Lipitor) 40 mg PO DIN [facility] Last Admin: 12/28/17 20:18 Dose: 40 mg Hydralazine HCl (Apresoline) 25 mg PO TID [facility] Last Admin: 12/28/17 20:18 Dose: 25 mg Insulin Human Lispro (Humalog Low) 0 units SC ACHS [facility] PRN Reason: Protocol Last Admin: 12/28/17 22:11 Dose: Not Given Isosorbide Mononitrate (Imdur) 60 mg PO DAILY [facility] Last Admin: 12/28/17 20:18 Dose: 60 mg Ondansetron HCl (Zofran Inj) 4 mg IVP Q6H PRN PRN Reason: Nausea/Vomiting Pantoprazole Sodium (Protonix Inj) 40 mg IVP Q12 [facility] Last Admin: 12/28/17 22:09 Dose: 40 mg Physical Exam - Constitutional Appears: Non-toxic, No Acute Distress - Head Exam Head Exam: ATRAUMATIC, NORMOCEPHALIC - Eye Exam Eye Exam: EOMI, PERRL. absent: Scleral icterus Pupil Exam: PERRL. absent: Miosis, Mydriatic - ENT Exam ENT Exam: Mucous Membranes Moist, Normal Oropharynx - Neck Exam Neck exam: Positive for: Full Rom, Normal Inspection - Respiratory Exam Respiratory Exam: Clear to Auscultation Bilateral. absent: Rales, Rhonchi, Wheezes - Cardiovascular Exam Cardiovascular Exam: RRR, +S1, +S2. absent: Gallop, Rubs - GI/Abdominal Exam GI & Abdominal Exam: Normal Bowel Sounds, Soft. absent: Distended, Guarding, Organomegaly, Rebound, Rigid, Tenderness - Rectal Exam Rectal Exam: NORMAL INSPECTION. absent: Black Stool, Bloody Stool, Fecal Impaction Additional comments: green stool - Extremities Exam Extremities exam: Positive for: normal inspection. Negative for: pedal edema - Neurological Exam Neurological exam: Alert, Oriented x3 - Psychiatric Exam Psychiatric exam: Normal Affect, Normal Mood - Skin Skin Exam: Dry, Intact, Normal Color, Warm Results - Vital Signs Recent Vital Signs: Last Vital Signs Temp 100.1 F H 12/29/17 06:00 Pulse 65 12/29/17 06:00 Resp 18 12/29/17 06:00 BP 191/98 H 12/29/17 06:00 Pulse Ox 96 12/29/17 06:00 - Labs Result Diagrams: 12/29/17 05:20 12/29/17 05:20 Labs: Laboratory Results - last 24 hr 12/28/17 12/28/17 12/28/17 19:28 19:28 21:51 WBC RBC Hgb Hct MCV MCH MCHC RDW Plt Count MPV Gran % Lymph % (Auto) [place] % (Auto) Eos % (Auto) Baso % (Auto) Gran # Lymph # (Auto) [place] # (Auto) Eos # (Auto) Baso # (Auto) Sodium 139 Potassium 4.0 Chloride 96 L Carbon Dioxide 27 Anion Gap 20 BUN 47 H Creatinine 7.2 H Est GFR ( Amer) 10 Est GFR (Non-Af Amer) 8 POC Glucose (mg/dL) 143 H Random Glucose 175 H Calcium 8.7 Phosphorus Magnesium 1.9 Total Bilirubin 0.5 AST 15 L D ALT 15 Alkaline Phosphatase 61 Total Protein 7.1 Albumin 4.1 Globulin 3.0 Albumin/Globulin Ratio 1.4 Blood Type A POSITIVE Antibody Screen Negative BBK History Checked Patient has bt 12/29/17 12/29/17 05:20 05:20 WBC 5.7 RBC 4.01 Hgb 11.4 L Hct 35.0 L MCV 87.3 MCH 28.4 MCHC 32.6 RDW 15.0 H Plt Count 182 MPV 11.0 Gran % 59.7 Lymph % (Auto) 27.5 [place] % (Auto) 7.0 H Eos % (Auto) 4.6 Baso % (Auto) 1.2 Gran # 3.39 Lymph # (Auto) 1.6 [place] # (Auto) 0.4 Eos # (Auto) 0.3 Baso # (Auto) 0.07 Sodium 138 Potassium 4.5 Chloride 97 L Carbon Dioxide 27 Anion Gap 19 BUN 52 H Creatinine 8.1 H* Est GFR ( Amer) 8 Est GFR (Non-Af Amer) 7 POC Glucose (mg/dL) Random Glucose 119 H Calcium 8.4 Phosphorus 7.8 H Magnesium 2.0 Total Bilirubin 0.6 AST 16 L ALT 16 Alkaline Phosphatase 59 Total Protein 7.0 Albumin 3.9 Globulin 3.1 Albumin/Globulin Ratio 1.3 Blood Type Antibody Screen BBK History Checked Assessment & Plan - Assessment and Plan (Free Text) Assessment: 57yo man with PMH of ESRD on HD TThSat, 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 Resolved nausea, vomiting, and diarrhea for five days with no bowel movements for the last two days. Active treatment of dyspepsia with medication noncompliance with likely resolved viral gastroenteritis from outside food source. Prior EGD 05/08/2017 showing nonbleeding esophageal ulcers, LAGC esophagitis, and chronic gastritis. Noncompliance to recommended outpatient follow up for colonoscopy. Plan: >H/H stable >no overt signs of GI blood loss >rectal exam- green stool >continue PPI ACB -heart healthy diabetic dialysis diet >outpatient follow up of dyspepsia and colonoscopy for CRC screening <Ruiz Olivo - Last Filed: 12/29/17 11:47> Meds - Medications Medications: Current Medications Amlodipine Besylate (Norvasc) 5 mg PO DAILY [facility] Last Admin: 12/29/17 11:26 Dose: 5 mg Aspirin (Aspirin Chewable) 81 mg PO DAILY [facility] Last Admin: 12/28/17 20:18 Dose: 81 mg Atorvastatin Calcium (Lipitor) 40 mg PO DIN [facility] Last Admin: 12/28/17 20:18 Dose: 40 mg Hydralazine HCl (Apresoline) 25 mg PO TID [facility] Last Admin: 12/28/17 20:18 Dose: 25 mg Insulin Human Lispro (Humalog Low) 0 units SC ACHS [facility] PRN Reason: Protocol Last Admin: 12/28/17 22:11 Dose: Not Given Isosorbide Mononitrate (Imdur) 60 mg PO DAILY [facility] Last Admin: 12/28/17 20:18 Dose: 60 mg Losartan Potassium (Cozaar) 100 mg PO DAILY [facility] Last Admin: 12/29/17 11:26 Dose: 100 mg Metoprolol Tartrate (Lopressor) 25 mg PO BID [facility] Last Admin: 12/29/17 11:26 Dose: 25 mg Ondansetron HCl (Zofran Inj) 4 mg IVP Q6H PRN PRN Reason: Nausea/Vomiting Pantoprazole Sodium (Protonix Ec Tab) 40 mg PO 0600,1600 [facility] Sevelamer HCl (Renagel) 1,600 mg PO TID [facility] Vitamin B Complex/Vit C/Folic Acid (Nephro-Eleni) 1 tab PO 0800 [facility] Results - Vital Signs Recent Vital Signs: Last Vital Signs Temp 100.1 F H 12/29/17 06:00 Pulse 81 12/29/17 11:26 Resp 18 12/29/17 10:58 BP 154/81 H 12/29/17 11:26 Pulse Ox 96 12/29/17 06:00 - Labs Result Diagrams: 12/29/17 05:20 12/29/17 05:20 Labs: Laboratory Results - last 24 hr 12/28/17 12/28/17 12/28/17 19:28 19:28 21:51 WBC RBC Hgb Hct MCV MCH MCHC RDW Plt Count MPV Gran % Lymph % (Auto) [place] % (Auto) Eos % (Auto) Baso % (Auto) Gran # Lymph # (Auto) [place] # (Auto) Eos # (Auto) Baso # (Auto) Sodium 139 Potassium 4.0 Chloride 96 L Carbon Dioxide 27 Anion Gap 20 BUN 47 H Creatinine 7.2 H Est GFR ( Amer) 10 Est GFR (Non-Af Amer) 8 POC Glucose (mg/dL) 143 H Random Glucose 175 H Calcium 8.7 Phosphorus Magnesium 1.9 Total Bilirubin 0.5 AST 15 L D ALT 15 Alkaline Phosphatase 61 Total Protein 7.1 Albumin 4.1 Globulin 3.0 Albumin/Globulin Ratio 1.4 Blood Type A POSITIVE Antibody Screen Negative BBK History Checked Patient has bt 12/29/17 12/29/17 05:20 05:20 WBC 5.7 RBC 4.01 Hgb 11.4 L Hct 35.0 L MCV 87.3 MCH 28.4 MCHC 32.6 RDW 15.0 H Plt Count 182 MPV 11.0 Gran % 59.7 Lymph % (Auto) 27.5 [place] % (Auto) 7.0 H Eos % (Auto) 4.6 Baso % (Auto) 1.2 Gran # 3.39 Lymph # (Auto) 1.6 [place] # (Auto) 0.4 Eos # (Auto) 0.3 Baso # (Auto) 0.07 Sodium 138 Potassium 4.5 Chloride 97 L Carbon Dioxide 27 Anion Gap 19 BUN 52 H Creatinine 8.1 H* Est GFR ( Amer) 8 Est GFR (Non-Af Amer) 7 POC Glucose (mg/dL) Random Glucose 119 H Calcium 8.4 Phosphorus 7.8 H Magnesium 2.0 Total Bilirubin 0.6 AST 16 L ALT 16 Alkaline Phosphatase 59 Total Protein 7.0 Albumin 3.9 Globulin 3.1 Albumin/Globulin Ratio 1.3 Blood Type Antibody Screen BBK History Checked Attending/Attestation - Attestation I have personally seen and examined this patient.: Yes I have fully participated in the care of the patient.: Yes I have reviewed all pertinent clinical information: Yes Notes (Text): 12/29/17 11:34 I have seen and examined patient with GI fellow. Agree with above documentation with the following additions. In brief, this is a 57 year old male with history of ESRD on HD, DM, HTN, CAD/CABG who presents to hospital with weakness, nausea, vomiting, diarrhea. Symptoms started 5 days ago following consumption of veal which did not taste "right" according to patient. Initially he had two episodes of nausea, vomiting along with non-bloody diarrhea which has since resolved. He has not had a bowel movement in past two days. He denies abdominal pain, fever/chills, visible blood in stool, weight loss, or NSAID use. He had an EGD in April [address] Rios that showed esophagitis and esophageal ulceration. He has admitted to non- compliance with medication in the past. ESRD on HD DM / HTN CAD/CABG Anemia, chronic disease Rectal exam performed today shows solid green/brown stool in rectal vault without palpable lesions - Diet as tolerated - H/H stable, continue to monitor - Continue with PPI therapy - No current planned GI intervention, patient stressed importance of medication compliance and outpatient follow up. Will sign off case, please reconsult as necessary, thank you.
[2017-12-29] MEDS ORDERED: Lidocaine 2% Inj (20ml) IJ STA (13:12)
--- NOTE | 2017-12-29 14:35 | CP.PCM.DIS ---
<Nancy Clemens - Last Filed: 12/29/17 15:43> Provider - Provider Date of Admission: 12/28/17 17:22 Attending physician: Corey Moore MD Consults: GI: Geovani Nephro: Tami Time Spent in preparation of Discharge (in minutes): 32 Hospital Course - Lab Results Lab Results: Most Recent Lab Values WBC 5.7 10^3/ul (4.5-11.0) 12/29/17 05:20 RBC 4.01 10^6/uL (3.5-6.1) 12/29/17 05:20 Hgb 11.4 g/dL (14.0-18.0) L 12/29/17 05:20 Hct 35.0 % (42.0-52.0) L 12/29/17 05:20 MCV 87.3 fl (80.0-105.0) 12/29/17 05:20 MCH 28.4 pg (25.0-35.0) 12/29/17 05:20 MCHC 32.6 g/dl (31.0-37.0) 12/29/17 05:20 RDW 15.0 % (11.5-14.5) H 12/29/17 05:20 Plt Count 182 10^3/uL (120.0-450.0) 12/29/17 05:20 MPV 11.0 fl (7.0-11.0) 12/29/17 05:20 Gran % 59.7 % (50.0-68.0) 12/29/17 05:20 Lymph % (Auto) 27.5 % (22.0-35.0) 12/29/17 05:20 [place] % (Auto) 7.0 % (1.0-6.0) H 12/29/17 05:20 Eos % (Auto) 4.6 % (1.5-5.0) 12/29/17 05:20 Baso % (Auto) 1.2 % (0.0-3.0) 12/29/17 05:20 Gran # 3.39 (1.4-6.5) 12/29/17 05:20 Lymph # (Auto) 1.6 (1.2-3.4) 12/29/17 05:20 [place] # (Auto) 0.4 (0.1-0.6) 12/29/17 05:20 Eos # (Auto) 0.3 (0.0-0.7) 12/29/17 05:20 Baso # (Auto) 0.07 K/mm3 (0.0-2.0) 12/29/17 05:20 pO2 81 mm/Hg (30-55) H 12/28/17 10:10 VBG pH 7.29 (7.32-7.43) L 12/28/17 10:10 VBG pCO2 35.0 (40-60) L 12/28/17 10:10 VBG HCO3 16.8 mmol/l (21-28) L 12/28/17 10:10 VBG Total CO2 17.9 mmol.L (22-28) L 12/28/17 10:10 VBG O2 Sat (Calc) 98.1 % (40-65) H 12/28/17 10:10 VBG Base Excess -8.9 mmol/L (0.0-2.0) L 12/28/17 10:10 VBG Potassium 5.3 mmol/L (3.6-5.2) H 12/28/17 10:10 Sodium 134.0 mmol/L (132-148) 12/28/17 10:10 Chloride 107.0 mmol/L (98-107) 12/28/17 10:10 Glucose 200 mg/dl (75-110) H 12/28/17 10:10 Lactate 1.0 mmol/L (0.7-2.1) 12/28/17 10:10 FiO2 21.0 % 12/28/17 10:10 Sodium 138 mmol/L (132-148) 12/29/17 05:20 Potassium 4.5 mmol/L (3.6-5.0) 12/29/17 05:20 Chloride 97 mmol/L (98-107) L 12/29/17 05:20 Carbon Dioxide 27 mmol/L (21-33) 12/29/17 05:20 Anion Gap 19 (10-20) 12/29/17 05:20 BUN 52 mg/dL (7-21) H 12/29/17 05:20 Creatinine 8.1 mg/dl (0.8-1.5) H* 12/29/17 05:20 Est GFR ( Amer) 8 12/29/17 05:20 Est GFR (Non-Af Amer) 7 12/29/17 05:20 POC Glucose (mg/dL) 143 mg/dL (65-110) H 12/28/17 21:51 Random Glucose 119 mg/dL (70-110) H 12/29/17 05:20 Calcium 8.4 mg/dL (8.4-10.5) 12/29/17 05:20 Phosphorus 7.8 mg/dL (2.5-4.5) H 12/29/17 05:20 Magnesium 2.0 mg/dL (1.7-2.2) 12/29/17 05:20 Total Bilirubin 0.6 mg/dL (0.2-1.3) 12/29/17 05:20 AST 16 U/L (17-59) L 12/29/17 05:20 ALT 16 U/L (7-56) 12/29/17 05:20 Alkaline Phosphatase 59 U/L (38-126) 12/29/17 05:20 Lactate Dehydrogenase 376 U/L (333-699) 12/28/17 10:10 Total Creatine Kinase 84 U/L (35-230) 12/28/17 10:10 Troponin I 0.01 ng/mL D 12/28/17 10:10 Total Protein 7.0 g/dL (5.8-8.3) 12/29/17 05:20 Albumin 3.9 g/dL (3.0-4.8) 12/29/17 05:20 Globulin 3.1 gm/dL 12/29/17 05:20 Albumin/Globulin Ratio 1.3 (1.1-1.8) 12/29/17 05:20 Venous Blood Potassium 5.3 mmol/L (3.6-5.2) H 12/28/17 10:10 Blood Type A POSITIVE 12/28/17 19:28 Antibody Screen Negative 12/28/17 19:28 BBK History Checked Patient has bt 12/28/17 19:28 - Hospital Course Hospital Course: History of Present Illness: Patient is a 56 year old male with past medical history of ESRD (on HD Tues, thurs, Sat), AR x 3, CAD with 3x stents and CABG, HTN, DM, peripheral neuropathy , gastroparesis, and chronic non-compliance who presents to the ED due to malaise, nausea/emesis, and diarrhea for approximately 1 week, with dark stools the last 2 times. Reports missing the last 1 week of HD due to frequent diarrhea, fear of soiling himself in public. At time of exam in ED, patient s/ p HD (done today prior to admission). Denies chest pain, shortness of breath, current emesis, any bilious or bloody emesis, hemoptysis, productive cough, fevers, chills, focal weakness, or syncope/near-syncope. Does admit to dry cough, and longstanding peripheral neuropathy 2/2 poorly controlled DM. Reports the nausea, emesis, and malaise are all improved today prior to presentation, but the dark stools prompted him to present given hx of prior suspected GI bleed. All other ROS in 12-system review negative. Patient has a history of non-compliance, He states that he was not taking his protonix because he ran out. Hospital Course: Patient was admitted to Med/Surg for Nausea/Vomiting with intermittent melena. Stool occult in the ED was positive. He was started on Protonix. GI was consulted. Hgb remained stable and close to baseline, there were no signs of active bleeding. Patient was cleared from GI perspective. Will need outpatient colonoscopy. Patient was found to be hypertensive, we restarted his home medications. Patient is getting hemodialysis using AVF. Patient to have temporary dialysis catheter removed after hemodialysis on MondayJanuary 02. He is to report to same day surgery after his HD session. On day of discharge, patient was doing well. He was ambulating and tolerating diet. Nausea/Vomiting resolved. Patient medically stable for discharge home. Patient to follow up with PMD within 1 week. Medications were provided at the bedside. Discharge Medications: Metoprolol 25mg PO BID Norvasc 5mg PO daily Protonix 40mg PO daily ASA 81mg PO daily Lipitor 40mg PO HS Hydralazine 25mg PO TID Imdur 60mg PO daily Sevelamer 1600mg PO TID Nephrovite 1 tab PO daily Discharge Exam - Head Exam Head Exam: ATRAUMATIC, NORMAL INSPECTION, NORMOCEPHALIC - Eye Exam Eye Exam: EOMI, Normal appearance Pupil Exam: NORMAL ACCOMODATION - ENT Exam ENT Exam: Mucous Membranes Moist - Neck Exam Neck exam: Full Rom - Respiratory Exam Respiratory Exam: Clear to PA & Lateral, NORMAL BREATHING PATTERN, UNREMARKABLE. absent: Rales, Rhonchi, Wheezes, Respiratory Distress - Cardiovascular Exam Cardiovascular Exam: REGULAR RHYTHM, +S1, +S2 Additional comments: left sided tunneled dialysis catheter - GI/Abdominal Exam GI & Abdominal Exam: Normal Bowel Sounds, Soft. absent: Guarding, Rebound, Rigid, Tenderness - Extremities Exam Extremities exam: pedal pulses present - Back Exam Back exam: NORMAL INSPECTION - Neurological Exam Neurological exam: Alert, Oriented x3 - Psychiatric Exam Psychiatric exam: Normal Affect, Normal Mood - Skin Skin Exam: Dry, Normal Color, Warm Discharge Plan - Discharge Medications Prescriptions: amLODIPine [Norvasc] 5 mg PO DAILY #30 tab Aspirin [Aspirin Chewable] 81 mg PO DAILY #30 chew Atorvastatin [Lipitor] 40 mg PO DIN #30 tab hydrALAZINE [Apresoline] 25 mg PO TID #90 tab Isosorbide Mononitrate [Imdur] 60 mg PO DAILY #30 tab Losartan [Cozaar] 100 mg PO DAILY #30 tab Metoprolol Tartrate [Lopressor] 25 mg PO BID #60 tab Pantoprazole Sodium [Protonix] 40 mg PO DAILY #30 tablet. [place]vel[place]ath [Renagel] 1,600 mg PO TID #90 tab Vitamin B Complex/Vit C/Folic [Nephro-Eleni] 1 tab PO 0800 #30 tab - Follow Up Plan Condition: STABLE Disposition: HOME/ ROUTINE Instructions: Gastritis (DC), Ulcer and Gastritis Diet Additional Instructions: 1. Take Medication as prescribed 2. Follow up with GI outpatient clinic at [facility] for outpatient endoscopy 3. Continue hemodialysis as scheduled. Do NOT miss any HD. 4. On MondayJanuary 02, after dialysis please report to same day surgery to have temporary dialysis catheter removed Referrals: [facility] [Outside] Sancho Garrett MD [Staff Provider] - <Corey Moore - Last Filed: 12/29/17 17:25> Provider - Provider Date of Admission: 12/28/17 17:22 Attending physician: Corey Moore MD Hospital Course - Lab Results Lab Results: Most Recent Lab Values WBC 5.7 10^3/ul (4.5-11.0) 12/29/17 05:20 RBC 4.01 10^6/uL (3.5-6.1) 12/29/17 05:20 Hgb 11.4 g/dL (14.0-18.0) L 12/29/17 05:20 Hct 35.0 % (42.0-52.0) L 12/29/17 05:20 MCV 87.3 fl (80.0-105.0) 12/29/17 05:20 MCH 28.4 pg (25.0-35.0) 12/29/17 05:20 MCHC 32.6 g/dl (31.0-37.0) 12/29/17 05:20 RDW 15.0 % (11.5-14.5) H 12/29/17 05:20 Plt Count 182 10^3/uL (120.0-450.0) 12/29/17 05:20 MPV 11.0 fl (7.0-11.0) 12/29/17 05:20 Gran % 59.7 % (50.0-68.0) 12/29/17 05:20 Lymph % (Auto) 27.5 % (22.0-35.0) 12/29/17 05:20 [place] % (Auto) 7.0 % (1.0-6.0) H 12/29/17 05:20 Eos % (Auto) 4.6 % (1.5-5.0) 12/29/17 05:20 Baso % (Auto) 1.2 % (0.0-3.0) 12/29/17 05:20 Gran # 3.39 (1.4-6.5) 12/29/17 05:20 Lymph # (Auto) 1.6 (1.2-3.4) 12/29/17 05:20 [place] # (Auto) 0.4 (0.1-0.6) 12/29/17 05:20 Eos # (Auto) 0.3 (0.0-0.7) 12/29/17 05:20 Baso # (Auto) 0.07 K/mm3 (0.0-2.0) 12/29/17 05:20 pO2 81 mm/Hg (30-55) H 12/28/17 10:10 VBG pH 7.29 (7.32-7.43) L 12/28/17 10:10 VBG pCO2 35.0 (40-60) L 12/28/17 10:10 VBG HCO3 16.8 mmol/l (21-28) L 12/28/17 10:10 VBG Total CO2 17.9 mmol.L (22-28) L 12/28/17 10:10 VBG O2 Sat (Calc) 98.1 % (40-65) H 12/28/17 10:10 VBG Base Excess -8.9 mmol/L (0.0-2.0) L 12/28/17 10:10 VBG Potassium 5.3 mmol/L (3.6-5.2) H 12/28/17 10:10 Sodium 134.0 mmol/L (132-148) 12/28/17 10:10 Chloride 107.0 mmol/L (98-107) 12/28/17 10:10 Glucose 200 mg/dl (75-110) H 12/28/17 10:10 Lactate 1.0 mmol/L (0.7-2.1) 12/28/17 10:10 FiO2 21.0 % 12/28/17 10:10 Sodium 138 mmol/L (132-148) 12/29/17 05:20 Potassium 4.5 mmol/L (3.6-5.0) 12/29/17 05:20 Chloride 97 mmol/L (98-107) L 12/29/17 05:20 Carbon Dioxide 27 mmol/L (21-33) 12/29/17 05:20 Anion Gap 19 (10-20) 12/29/17 05:20 BUN 52 mg/dL (7-21) H 12/29/17 05:20 Creatinine 8.1 mg/dl (0.8-1.5) H* 12/29/17 05:20 Est GFR ( Amer) 8 12/29/17 05:20 Est GFR (Non-Af Amer) 7 12/29/17 05:20 POC Glucose (mg/dL) 135 mg/dL (65-110) H 12/29/17 16:13 Random Glucose 119 mg/dL (70-110) H 12/29/17 05:20 Calcium 8.4 mg/dL (8.4-10.5) 12/29/17 05:20 Phosphorus 7.8 mg/dL (2.5-4.5) H 12/29/17 05:20 Magnesium 2.0 mg/dL (1.7-2.2) 12/29/17 05:20 Total Bilirubin 0.6 mg/dL (0.2-1.3) 12/29/17 05:20 AST 16 U/L (17-59) L 12/29/17 05:20 ALT 16 U/L (7-56) 12/29/17 05:20 Alkaline Phosphatase 59 U/L (38-126) 12/29/17 05:20 Lactate Dehydrogenase 376 U/L (333-699) 12/28/17 10:10 Total Creatine Kinase 84 U/L (35-230) 12/28/17 10:10 Troponin I 0.01 ng/mL D 12/28/17 10:10 Total Protein 7.0 g/dL (5.8-8.3) 12/29/17 05:20 Albumin 3.9 g/dL (3.0-4.8) 12/29/17 05:20 Globulin 3.1 gm/dL 12/29/17 05:20 Albumin/Globulin Ratio 1.3 (1.1-1.8) 12/29/17 05:20 Venous Blood Potassium 5.3 mmol/L (3.6-5.2) H 12/28/17 10:10 Blood Type A POSITIVE 12/28/17 19:28 Antibody Screen Negative 12/28/17 19:28 BBK History Checked Patient has bt 12/28/17 19:28 Attending/Attestation - Attestation I have personally seen and examined this patient.: Yes I have fully participated in the care of the patient.: Yes I have reviewed all pertinent clinical information, including history, physical exam and plan: Yes Notes (Text): 12/29/17 17:22 Medical record note made by the resident after discussion with my direction and input after the patient was personally seen and examined by me. I have reviewed the chart and agree that the record accurately reflects by personal performance of the history, physical exam, data review, and medical decision-making, in the course for the patient. I have also personally directed the plan of care. 57 year old male with past medical history of ESRD , CAD s/p stents and CABG, hypertension, diabetes ,Esophagitis and noncompliance with medication and dialysis regimen who presents with complaint of melena off and on for last 4 days. Patient was also having Nausea and vomiting. There is no active bleeding here in the ER.Hemoglobin remain stable .He was evaluated by GI , no need for repeat EGD.Patient is on PPI, he is tolerating diet. Issue of compliance with medication and dialysis regimen was discussed in detail. Management plan was discussed in detail with patient. Education was provided. Prognosis is guarded.
--- NOTE | 2017-12-29 15:39 | CP.PCM.CON ---
History of Present Illness - History of Present Illness History of Present Illness: pt seen and examined during dialysis labs/vitals reviewed Past Patient History - Infectious Disease Hx of Infectious Diseases: None - Tetanus Immunizations Tetanus Immunization: Unknown - Past Medical History & Family History Past Medical History?: Yes - Past Social History Smoking Status: Never Smoked - CARDIAC Hx Cardiac Disorders: Yes (CAD, [place] x 3, CABG x 3) Hx Hypertension: Yes - PULMONARY Hx Respiratory Disorders: Yes Other/Comment: PULMONARY EDEMA - NEUROLOGICAL HX Cerebrovascular Accident: Yes - HEENT Hx HEENT Problems: Yes (CONTACT LENSES) - RENAL Hx Renal Failure: Yes (HD TUES,THUR,SAT) - ENDOCRINE/METABOLIC Hx Diabetes Mellitus Type 2: Yes - HEMATOLOGICAL/ONCOLOGICAL Hx Blood Transfusions: Yes Hx Blood Transfusion Reaction: No - INTEGUMENTARY Hx Dermatological Problems: Yes Other/Comment: righty lower ext rash, pt stated "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" - MUSCULOSKELETAL/RHEUMATOLOGICAL Hx Musculoskeletal Disorders: No - GASTROINTESTINAL Hx Gastrointestinal Disorders: No - GENITOURINARY/GYNECOLOGICAL Hx Urinary Tract Infection: Yes - PSYCHIATRIC Hx Emotional Abuse: No Hx Physical Abuse: No Hx Substance Use: Yes - SURGICAL HISTORY Hx Amputation: Yes (R toes) Hx Cardiac Catheterization: Yes (09/09) Hx Coronary Stent: Yes Hx Open Heart Surgery: Yes (12-26-12) Other/Comment: temporary dialysis catheter. ERIC PICC line - ANESTHESIA Hx Anesthesia Reactions: No Hx Malignant Hyperthermia: No Meds Allergies/Adverse Reactions: Allergies Allergy/AdvReac Type Severity Reaction Status Date / Time Seafood Allergy ANAPHYLAXIS Uncoded 12/28/17 09:30 Results - Vital Signs Recent Vital Signs: Last Vital Signs Temp 98.5 F 12/28/17 09:43 Pulse 68 12/28/17 16:00 Resp 18 12/28/17 16:00 BP 158/69 H 12/28/17 16:00 Pulse Ox 98 12/28/17 16:00 - Labs Result Diagrams: 12/28/17 10:10 12/28/17 10:10 Labs: Laboratory Results - last 24 hr 12/28/17 12/28/17 12/28/17 10:10 10:10 10:10 WBC 6.8 RBC 3.51 Hgb 10.1 L Hct 30.8 L MCV 87.7 MCH 28.8 MCHC 32.8 RDW 15.3 H Plt Count 176 MPV 11.2 H Gran % 69.0 H Lymph % (Auto) 21.7 L [place] % (Auto) 5.7 Eos % (Auto) 3.2 Baso % (Auto) 0.4 Gran # 4.71 Lymph # (Auto) 1.5 [place] # (Auto) 0.4 Eos # (Auto) 0.2 Baso # (Auto) 0.03 pO2 81 H VBG pH 7.29 L VBG pCO2 35.0 L VBG HCO3 16.8 L VBG Total CO2 17.9 L VBG O2 Sat (Calc) 98.1 H VBG Base Excess -8.9 L VBG Potassium 5.3 H Sodium 134.0 Chloride 107.0 Glucose 200 H Lactate 1.0 FiO2 21.0 Potassium Carbon Dioxide Anion Gap BUN Creatinine Est GFR ( Amer) Est GFR (Non-Af Amer) Random Glucose Calcium Phosphorus Magnesium 1.9 Total Bilirubin AST ALT Alkaline Phosphatase Lactate Dehydrogenase 376 Total Creatine Kinase 84 Troponin I 0.01 D Total Protein Albumin Globulin Albumin/Globulin Ratio Venous Blood Potassium 5.3 H 18 12/28/17 10:10 10:10 WBC RBC Hgb Hct MCV MCH MCHC RDW Plt Count MPV Gran % Lymph % (Auto) [place] % (Auto) Eos % (Auto) Baso % (Auto) Gran # Lymph # (Auto) [place] # (Auto) Eos # (Auto) Baso # (Auto) pO2 VBG pH VBG pCO2 VBG HCO3 VBG Total CO2 VBG O2 Sat (Calc) VBG Base Excess VBG Potassium Sodium 138 Chloride 105 Glucose Lactate FiO2 Potassium 5.4 H Carbon Dioxide 14 L Anion Gap 25 H BUN 92 H Creatinine 11.1 H* D Est GFR ( Amer) 6 Est GFR (Non-Af Amer) 5 Random Glucose 185 H Calcium 8.1 L Phosphorus 9.4 H Magnesium Total Bilirubin 0.3 AST 7 L D ALT 23 Alkaline Phosphatase 52 Lactate Dehydrogenase Total Creatine Kinase Troponin I Total Protein 6.1 Albumin 3.5 Globulin 2.5 Albumin/Globulin Ratio 1.4 Venous Blood Potassium
--- NOTE | 2017-12-29 15:40 | CP.PCM.PN ---
Subjective - Date & Time of Evaluation Date of Evaluation: 12/29/17 Time of Evaluation: 15:39 - Subjective Subjective: pt for next HD tomorrow d/c permacath Objective - Vital Signs/Intake and Output Vital Signs (last 24 hours): Temp Pulse Resp BP Pulse Ox 100.1 F H 81 18 154/81 H 96 12/29/17 06:00 12/29/17 11:26 12/29/17 10:58 12/29/17 11:26 12/29/17 06:00 Intake and Output: 12/29/17 12/29/17 06:59 18:59 Intake Total 600 Output Total 150 900 Balance -150 -300 - Medications Medications: Current Medications Amlodipine Besylate (Norvasc) 5 mg PO DAILY [facility] Last Admin: 12/29/17 11:26 Dose: 5 mg Aspirin (Aspirin Chewable) 81 mg PO DAILY [facility] Last Admin: 12/28/17 20:18 Dose: 81 mg Atorvastatin Calcium (Lipitor) 40 mg PO DIN [facility] Last Admin: 12/28/17 20:18 Dose: 40 mg Hydralazine HCl (Apresoline) 25 mg PO TID [facility] Last Admin: 12/28/17 20:18 Dose: 25 mg Insulin Human Lispro (Humalog Low) 0 units SC ACHS [facility] PRN Reason: Protocol Last Admin: 12/28/17 22:11 Dose: Not Given Isosorbide Mononitrate (Imdur) 60 mg PO DAILY [facility] Last Admin: 12/28/17 20:18 Dose: 60 mg Losartan Potassium (Cozaar) 100 mg PO DAILY [facility] Last Admin: 12/29/17 11:26 Dose: 100 mg Metoprolol Tartrate (Lopressor) 25 mg PO BID [facility] Last Admin: 12/29/17 11:26 Dose: 25 mg Ondansetron HCl (Zofran Inj) 4 mg IVP Q6H PRN PRN Reason: Nausea/Vomiting Pantoprazole Sodium (Protonix Ec Tab) 40 mg PO 0600,1600 [facility] Sevelamer HCl (Renagel) 1,600 mg PO TID [facility] Vitamin B Complex/Vit C/Folic Acid (Nephro-Eleni) 1 tab PO 0800 [facility] - Labs Labs: 12/29/17 05:20 12/29/17 05:20
[2017-12-29] MEDS ORDERED: Pantoprazole 40 mg EC Tab PO SCH (16:00)
[2017-12-29 18:27] VITALS: BP 164/81; PULSE 64; RESP 19; TEMP 98.3; O2SAT 97
[2017-12-30] MEDS ORDERED: Multivitamin Vitamin B Complex (Nephro-Vite) Tab PO SCH (08:00)
== END 2017-12-29 23:02 | disposition home or self-care (01) ==
LOC: ED 09:09 → ERH 17:22 → 3RNO 18:40
PROVIDERS: ADMIT Internal Medicine; ATTEND Internal Medicine
DX: K92.1 Melena (principal); E11.65 Type 2 diabetes mellitus with hyperglycemia; E11.42 Type 2 diabetes mellitus with diabetic polyneuropathy; N18.6 End stage renal disease; Z99.2 Dependence on renal dialysis; K31.84 Gastroparesis; E11.43 Type 2 diabetes mellitus with diabetic autonomic (poly)neuropathy; I25.10 Atherosclerotic heart disease of native coronary artery without angina pectoris; I12.0 Hypertensive chronic kidney disease with stage 5 chronic kidney disease or end stage renal disease; E11.22 Type 2 diabetes mellitus with diabetic chronic kidney disease; K22.10 Ulcer of esophagus without bleeding; K29.50 Unspecified chronic gastritis without bleeding; D63.8 Anemia in other chronic diseases classified elsewhere; Z86.73 Personal history of transient ischemic attack (TIA), and cerebral infarction without residual deficits; I25.2 Old myocardial infarction; Z91.19 Patient's noncompliance with other medical treatment and regimen; Z95.1 Presence of aortocoronary bypass graft; Z91.14 Patient's other noncompliance with medication regimen; Z95.5 Presence of coronary angioplasty implant and graft; Z80.0 Family history of malignant neoplasm of digestive organs
CPT/HCPCS: 36415; 71045; 80053; 82550; 82803; 82948; 83615; 83735; 84100; 84484; 85025; 86850; 86900; 93005; 96374; 96375; 96376; 99285; C9113; G0378; J2405

== ENCOUNTER 2018-01-02 12:54 | Day surgery (SDC) | payer MEDICAID ==
[2018-01-01 11:12] VITALS: BMI 28.5
[2018-01-02] MEDS ORDERED: Lidocaine 2% Inj (20ml) ONE (13:49)
[2018-01-02] MEDS ORDERED: Midazolam 2 MG/2 ML VIAL ONE (13:50)
--- NOTE | 2018-01-02 15:12 | VASCULAR ---
PROCEDURE: Removal of tunneled right IJ dialysis catheter. CLINICAL HISTORY: End-stage renal disease. Malfunctioning tunneled right IJ dialysis catheter. Functioning upper extremity AV access. PHYSICIAN(S): Yousif Cortés M.D. TECHNIQUE: The relative risks and indications of the procedure were explained to the patient and consent obtained. The patient was placed supine on the arteriogram table and the tunneled right IJ dialysis catheter prepped and draped in the usual sterile fashion. Conscious sedation and monitoring were provided throughout the procedure by nurse. 1% Xylocaine was used to anesthetize skin and soft tissues along the tunnel. The tunnel and cuff were bluntly dissected. The catheter was removed and pressure applied at the venous insertion site. A single interrupted suture was placed at the exit site. The patient tolerated the procedure well. IMPRESSION: 1. Removal of the patient's tunneled right IJ dialysis catheter.
[2018-01-02 15:47] VITALS: PULSE 74; RESP 18
[2018-01-02 16:15] VITALS: BP 156/69; O2SAT 98
[2018-01-02 17:01] VITALS: TEMP 98.6
== END 2018-01-02 16:00 | disposition home or self-care (01) ==
LOC: SDSVAS 12:54
PROVIDERS: ATTEND Radiology Vascular & Interventional Radiology
DX: I12.0 Hypertensive chronic kidney disease with stage 5 chronic kidney disease or end stage renal disease (principal); N18.6 End stage renal disease; E11.22 Type 2 diabetes mellitus with diabetic chronic kidney disease; I25.10 Atherosclerotic heart disease of native coronary artery without angina pectoris
CPT/HCPCS: 36589; 99152; J0360; J1644; J2250; J2405; J3010

== ENCOUNTER 2018-01-11 04:24 | Observation (INO) | payer MEDICAID ==
--- NOTE | 2018-01-11 05:09 | ED PDOC ---
Arrival/HPI - General Chief Complaint: Medical Clearance Time Seen by Provider: 01/11/18 05:01 Historian: Patient - History of Present Illness Narrative History of Present Illness (Text): 01/11/18 05:09 Manuel Lay is a 57 year old male, whose past medical history includes ESRD with hemodialysis (//Mon), [place], CAD with coronary stents, hypertension, siabetes, diabetic neuropathy, and gastroparesis, who presents to the Emergency department complaining of insomnia. Patient states he has been unable to sleep past couple of days, notes he has been experiencing also generalized malaise and bilateral foot pain secondary to his diabetic neuropathy. Patient states he scheduled for hemodialysis later this morning. Patient denies any fever, chills , chest pain, shortness of breath, nausea, vomiting, diarrhea, urinary symptoms , back pain, neck pain, headache, dizziness, or any other complaints. PMD: Dr. Eubanks Symptom Onset: Gradual Symptom Course: Unchanged Activities at Onset: Light Context: Home Past Medical History - Provider Review Nursing Documentation Reviewed: Yes - Infectious Disease Hx of Infectious Diseases: None - Tetanus Immunization Tetanus Immunization: Unknown - Cardiac Hx Cardiac Disorders: Yes (CAD, [place] x 3, CABG x 3) Hx Hypertension: Yes - Pulmonary Hx Respiratory Disorders: Yes Other/Comment: PULMONARY EDEMA - Neurological Hx Neurological Disorder: No Hx Paralysis: No - HEENT Hx HEENT Disorder: No (CONTACT LENSES) - Renal Hx Renal Failure: Yes (HD ,,MON) Other/Comment: shunt rt arm - Endocrine/Metabolic Hx Diabetes Mellitus Type 2: Yes - Hematological/Oncological Hx Blood Disorders: No Hx Blood Transfusions: No - Integumentary Hx Dermatological Disorder: Yes Other/Comment: righty lower ext rash, pt stated "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" - Musculoskeletal/Rheumatological Hx Musculoskeletal Disorders: No - Gastrointestinal Hx Gastrointestinal Disorders: No - Genitourinary/Gynecological Hx Genitourinary Disorders: No - Psychiatric Hx Psychophysiologic Disorder: No Hx Emotional Abuse: No Hx Physical Abuse: No Hx Substance Use: Yes (MARIJUANA USE DAILY) - Surgical History Hx Coronary Artery Bypass Graft: Yes (2012) Other/Comment: shunt rt arm - Anesthesia Hx Anesthesia Reactions: No - Suicidal Assessment Feels Threatened In Home Enviroment: No Family/Social History - Physician Review Nursing Documentation Reviewed: Yes Family/Social History: Unknown Family HX Smoking Status: Light Smoker < 10 Cigarettes Daily Hx Alcohol Use: Yes Frequency of alcohol use: Socially Hx Substance Use: Yes (MARIJUANA USE DAILY) Hx Substance Use Treatment: No Allergies/Home Meds Allergies/Adverse Reactions: Allergies Seafood Allergy (Uncoded 01/11/18 04:51) ANAPHYLAXIS Home Medications: Home Meds Medication Instructions Recorded Confirmed Vit B Cmplx 3/Folic AC/C/Biot 1 tab PO DAILY 01/01/18 01/11/18 [Mame-Eleni Rx Tablet] Sevelamer [Renagel] 1,600 mg PO TID 01/02/18 01/02/18 Review of Systems - Physician Review All systems were reviewed & negative as marked: Yes - Review of Systems Constitutional: Other (+generalized malaise, +unable to sleep) Eyes: Normal ENT: Normal Respiratory: Normal. absent: SOB, Cough Cardiovascular: Normal. absent: Chest Pain Gastrointestinal: Normal. absent: Abdominal Pain, Diarrhea, Nausea, Vomiting Genitourinary Male: Normal. absent: Dysuria, Frequency, Hematuria, Urinary Output Changes Musculoskeletal: Other (+bilateral foot pain). absent: Back Pain, Neck Pain Skin: Normal. absent: Rash Neurological: Normal. absent: Headache, Dizziness Endocrine: Normal Hemo/Lymphatic: Normal Psychiatric: Normal Physical Exam Vital Signs Reviewed: Yes Vital Signs Temp Pulse Resp BP Pulse Ox 01/11/18 04:55 98.4 F 62 18 199/94 H 100 Temperature: Afebrile Blood Pressure: Hypertensive Pulse: Regular Respiratory Rate: Normal Appearance: Positive for: Well-Appearing, Non-Toxic, Comfortable Pain Distress: None Mental Status: Positive for: Alert and Oriented X 3 - Systems Exam Head: Present: Atraumatic, Normocephalic Pupils: Present: PERRL Extroacular Muscles: Present: EOMI Conjunctiva: Present: Normal Mouth: Present: Moist Mucous Membranes Neck: Present: Normal Range of Motion Respiratory/Chest: Present: Clear to Auscultation, Good Air Exchange. No: Respiratory Distress, Accessory Muscle Use Cardiovascular: Present: Regular Rate and Rhythm, Normal S1, S2. No: Murmurs Abdomen: No: Tenderness, Distention, Peritoneal Signs Back: Present: Normal Inspection Upper Extremity: Present: Normal Inspection. No: Cyanosis, Edema Lower Extremity: Present: Normal Inspection. No: Edema Neurological: Present: GCS=15, CN II-XII Intact, Speech Normal Skin: Present: Warm, Dry, Normal Color. No: Rashes Psychiatric: Present: Alert, Oriented x 3, Normal Insight, Normal Concentration Medical Decision Making ED Course and Treatment: 01/11/18 05:09 Impression: 57 year old male complaining of being unable to sleep for 4 days with neuropathic bilateral foot pain and generalized malaise. Plan: -- EKG -- Chest X-ray -- Labs, cardiac enzymes, BNP -- Reassess and disposition Progress Notes: Reviewed EKG, NSR at 63 bpm. Anterior infarct. Non-specific ST/T wave changes. 01/11/18 06:18 Chest X-ray reviewed, shows mildly increase pulmonary vascular markings. - Lab Interpretations Lab Results: 01/11/18 05:13 01/11/18 05:35 Lab Results 01/11/18 05:35: POC Glucose (mg/dL) 134 H 01/11/18 05:35: Sodium Pending, Potassium Pending, Chloride Pending, Carbon Dioxide Pending, Anion Gap Pending, BUN Pending, Creatinine Pending, Est GFR ( Amer) Pending, Est GFR (Non-Af Amer) Pending, Random Glucose Pending, Calcium Pending, Total Bilirubin Pending, AST Pending, ALT Pending, Alkaline Phosphatase Pending, Lactate Dehydrogenase Pending, Total Creatine Kinase Pending, Troponin I < 0.01, NT-Pro-B Natriuret Pep 40858 H, Total Protein Pending, Albumin Pending, Globulin Pending, Albumin/Globulin Ratio Pending 01/11/18 05:35: PT 12.6 H, INR 1.09 H, APTT 34.5 01/11/18 05:13: WBC 6.4, RBC 3.75, Hgb 10.8 L, Hct 32.7 L, MCV 87.2, MCH 28.8, MCHC 33.0, RDW 14.6 H, Plt Count 213, MPV 10.2 - RAD Interpretation Radiology Orders: 01/11/18 05:13 CHEST PORTABLE [RAD] Stat Employment Coordinator: ED Physician - EKG Interpretation Interpreted by ED Physician: Yes Type: 12 lead EKG - Scribe Statement The provider has reviewed the documentation as recorded by the Tamara Shanks Provider Scribe Attestation: All medical record entries made by the Scribe were at my direction and personally dictated by me. I have reviewed the chart and agree that the record accurately reflects my personal performance of the history, physical exam, medical decision making, and the department course for this patient. I have also personally directed, reviewed, and agree with the discharge instructions and disposition. Disposition/Present on Arrival - Present on Arrival Any Indicators Present on Arrival: No History of DVT/PE: No History of Uncontrolled Diabetes: No Urinary Catheter: No History of Decub. Ulcer: No History Surgical Site Infection Following: None - Disposition Have Diagnosis and Disposition been Completed?: Yes Diagnosis: ESRD on dialysis, CHF (congestive heart failure) Disposition: HOSPITALIZED Disposition Time: 06:49 Patient Plan: Observation Condition: STABLE Discharge Instructions (ExitCare): Heart Failure (ED) Referrals: Manuel Pink DO [Primary Care Provider] - Follow up with primary Forms: [employer] (Danish)
[2018-01-11 05:59] LABS: HEMOGLOBIN 10.8 g/dL (14.0-18.0); MEAN CELL VOLUME 87.2 fl (80.0-105.0); MEAN CORPUSCULAR HEMOGLOBIN 28.8 pg (25.0-35.0); MEAN PLATELET VOLUME 10.2 fl (7.0-11.0); RBC 3.75 10^6/uL (3.5-6.1); RED CELL DISTRIBUTION WIDTH 14.6 % (11.5-14.5); WHITE BLOOD COUNT 6.4 10^3/ul (4.5-11.0)
[2018-01-11 06:05] LABS: INR 1.09 (0.93-1.08); PARTIAL THROMBOPLASTIN TIME 34.5 Seconds (25.1-36.5); PROTHROMBIN TIME 12.6 SECONDS (9.4-12.5)
[2018-01-11 06:21] LABS: B-TYPE NATRIURETIC PEPTIDE 11000 pg/mL (0-450); TROPONIN I < 0.01 ng/mL
[2018-01-11 07:29] LABS: ALB/GLOB RATIO 1.4 (1.1-1.8); ALT/SGPT 17 U/L (7-56); AST/SGOT 21 U/L (17-59); BLOOD UREA NITROGEN 81 mg/dL (7-21); CALCIUM 8.5 mg/dL (8.4-10.5); GFR AFRICAN-AMERICAN 6; GFR NON-AFRICAN AMERICAN 5
[2018-01-11] MEDS ORDERED: Albuterol 0.5% Inhal Sol (2.5 mg/0.5 ml) UD IH STA (07:36)
[2018-01-11] MEDS ORDERED: Sod Polystyrene Sulf 15 gm/60 ml Susp PO STA (07:39)
[2018-01-11] MEDS ORDERED: Insulin Regular 1 UNITS/0.01 ML ML IV STA (07:41)
[2018-01-11] MEDS ORDERED: Dextrose 50% SYRINGE Inj (50 ml) IVP STA (07:43)
[2018-01-11] MEDS ORDERED: Multivitamin Vitamin B Complex (Nephro-Vite) Tab PO SCH (08:00)
--- NOTE | 2018-01-11 08:08 | RAD ---
HISTORY: medical clearance COMPARISON: 12/28/2017 FINDINGS: LUNGS: There is an infiltrate in the right lower lobe PLEURA: No significant pleural effusion identified, no pneumothorax apparent. CARDIOVASCULAR: Mild cardiomegaly OSSEOUS STRUCTURES: Sternal wires VISUALIZED UPPER ABDOMEN: Normal. OTHER FINDINGS: None. IMPRESSION: Right lower lobe infiltrate
--- NOTE | 2018-01-11 08:36 | CP.PCM.HP ---
<Calin Gamino - Last Filed: 01/11/18 14:27> History of Present Illness - History of Present Illness History of Present Illness: H&P for hospitalist service - Bill Gamino PGY2 cc: insomnia HPI: Patient is a 57yo male with extensive past medical history that includes ESRD on HD (Mon//Mon), DM type 2 on insulin, [place] x3, CAD s/p 3 stents and CABG, HTN, peripheral neuropathy and gastroparesis that [place] [facility] [place] report of inability to sleep since Monday afternoon. He states that he has felt jittery and has been unable to relax for the last several days. Reports having been to dialysis this past Monday where ~3L of fluid was removed however skipped his Monday session because of difficulty getting out of bed. Patient states that he had a similar instance of difficulty sleeping in the past however not as long. He also complained of bilateral lower extremity cramping pain in the calfs and feet. Otherwise, he denies chest pain, palpitations, SOB, abdominal pain, nausea, vomiting, fever, chills, cough, focal weakness, numbness, tingling. 12point ROS as per HPI above otherwise negative PMH: as stated above PSHx: Coronary Stents x 3, CABG, Cholecystectomy, left hip surgery, Left knee surgery, Right foot partial amputation Social Hx: Former ETOH abuser (~40 years abuse, quit 6-7 years ago); denies tobacco and illicit drug use; admits marijuana intermittently Family Hx: Father: pancreatic ca; mother: denies PMD: Dr. Pink [employer]: Dr. Garrett Present on Admission - Present on Admission Any Indicators Present on Admission: No Past Patient History - Infectious Disease Hx of Infectious Diseases: None - Tetanus Immunizations Tetanus Immunization: Unknown - Past Medical History & Family History Past Medical History?: Yes - Past Social History Smoking Status: Light Smoker < 10 Cigarettes Daily - CARDIAC Hx Cardiac Disorders: Yes (CAD, [place] x 3, CABG x 3) Hx Hypertension: Yes - PULMONARY Hx Respiratory Disorders: Yes Other/Comment: PULMONARY EDEMA - NEUROLOGICAL Hx Neurological Disorder: No Hx Paralysis: No - HEENT Hx HEENT Problems: No (CONTACT LENSES) - RENAL Hx Renal Failure: Yes (HD ,,MON) Other/Comment: shunt rt arm - ENDOCRINE/METABOLIC Hx Diabetes Mellitus Type 2: Yes - HEMATOLOGICAL/ONCOLOGICAL Hx Blood Disorders: No Hx Blood Transfusions: No - INTEGUMENTARY Hx Dermatological Problems: Yes Other/Comment: righty lower ext rash, pt stated "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" - MUSCULOSKELETAL/RHEUMATOLOGICAL Hx Musculoskeletal Disorders: No - GASTROINTESTINAL Hx Gastrointestinal Disorders: No - GENITOURINARY/GYNECOLOGICAL Hx Genitourinary Disorders: No - PSYCHIATRIC Hx Psychophysiologic Disorder: No Hx Emotional Abuse: No Hx Physical Abuse: No Hx Substance Use: Yes (MARIJUANA USE DAILY) - SURGICAL HISTORY Hx Coronary Artery Bypass Graft: Yes (2012) Other/Comment: shunt rt arm - ANESTHESIA Hx Anesthesia Reactions: No Meds Allergies/Adverse Reactions: Allergies Allergy/AdvReac Type Severity Reaction Status Date / Time Seafood Allergy ANAPHYLAXIS Uncoded 01/11/18 12:11 Physical Exam - Constitutional Appears: No Acute Distress - Head Exam Head Exam: ATRAUMATIC, NORMOCEPHALIC - Eye Exam Eye Exam: EOMI, PERRL - ENT Exam ENT Exam: Mucous Membranes Moist - Neck Exam Neck exam: Positive for: Normal Inspection - Respiratory Exam Respiratory Exam: Clear to Auscultation Bilateral. absent: Rales, Rhonchi, Wheezes - Cardiovascular Exam Cardiovascular Exam: RRR, +S1, +S2. absent: Gallop, JVD, Rubs - GI/Abdominal Exam GI & Abdominal Exam: Soft. absent: Distended, Guarding, Rebound, Rigid, Tenderness - Extremities Exam Additional comments: calf tenderness bilaterally (L>R) R. foot partial amputation - Neurological Exam Neurological exam: Alert, CN II-XII Intact, Oriented x3 - Psychiatric Exam Psychiatric exam: Normal Affect, Normal Mood - Skin Skin Exam: Dry, Intact, Normal Color, Warm Results - Vital Signs Recent Vital Signs: Last Vital Signs Temp 98.4 F 01/11/18 04:55 Pulse 62 01/11/18 04:55 Resp 18 01/11/18 04:55 BP 199/94 H 01/11/18 04:55 Pulse Ox 100 01/11/18 04:55 - Labs Result Diagrams: 01/11/18 05:13 01/11/18 11:30 Assessment & Plan - Assessment and Plan (Free Text) Plan: 57yo male with history of ESRD on HD (T//Mon), CAD s/p stents and CABG, DM type 2, HTN, HLD presents c/o inability to sleep for past 4 days associated with headache 1. Hyperkalemia -Given albuterol, kayexalate, insulin in the ED -EKG reviewed; no acute ST-T wave changes or peaked T waves 2. ESRD on HD -Scheduled for dialysis today and tolerating well -CXR reviewed; read as RLL infiltrate however patient is afebrile, no leukocytosis and not complaining of SOB/Fever/Chills/etc. -Procalcitonin pending -Cultures pending -Restarted on home medications including nephro-frantz, renagel, hydralazine and imdur -Nephrology consulted - Dr. Garrett 3. CAD -Continue home medications including losartan, metoprolol and aspirin -EKG reviewed 4. HTN -Continue norvasc, hydralazine, imdur, losartan 5. Hyperlipidemia -Continue lipitor 6. GI/DVT Prophylaxis -Protonix/Heparin Patient seen and case discussed/reviewed with attending, Dr. Moore <Corey Moore - Last Filed: 01/12/18 15:13> Results - Vital Signs Recent Vital Signs: Last Vital Signs Temp 98.2 F 01/12/18 12:00 Pulse 85 01/12/18 12:00 Resp 20 01/12/18 12:00 BP 156/91 H 01/12/18 12:00 Pulse Ox 96 01/12/18 06:00 - Labs Result Diagrams: 01/12/18 05:30 01/12/18 05:30 Labs: Laboratory Results - last 24 hr 01/11/18 01/11/18 01/11/18 10:40 15:08 17:33 WBC RBC Hgb Hct MCV MCH MCHC RDW Plt Count MPV Gran % Lymph % (Auto) [place] % (Auto) Eos % (Auto) Baso % (Auto) Gran # Lymph # (Auto) [place] # (Auto) Eos # (Auto) Baso # (Auto) Sodium Potassium Chloride Carbon Dioxide Anion Gap BUN Creatinine Est GFR ( Amer) Est GFR (Non-Af Amer) POC Glucose (mg/dL) 188 H 148 H Random Glucose Calcium Phosphorus Magnesium Total Bilirubin AST ALT Alkaline Phosphatase Troponin I Total Protein Albumin Globulin Albumin/Globulin Ratio Procalcitonin < 0.05 L 01/11/18 01/11/18 01/12/18 20:15 22:38 05:30 WBC 5.0 D RBC 3.77 Hgb 10.6 L Hct 33.0 L MCV 87.5 MCH 28.1 MCHC 32.1 RDW 14.6 H Plt Count 208 MPV 10.6 Gran % 54.0 Lymph % (Auto) 32.7 [place] % (Auto) 6.9 H Eos % (Auto) 5.4 H Baso % (Auto) 1.0 Gran # 2.68 Lymph # (Auto) 1.6 [place] # (Auto) 0.3 Eos # (Auto) 0.3 Baso # (Auto) 0.05 Sodium Potassium Chloride Carbon Dioxide Anion Gap BUN Creatinine Est GFR ( Amer) Est GFR (Non-Af Amer) POC Glucose (mg/dL) 137 H Random Glucose Calcium Phosphorus Magnesium Total Bilirubin AST ALT Alkaline Phosphatase Troponin I 0.02 Total Protein Albumin Globulin Albumin/Globulin Ratio Procalcitonin 01/12/18 01/12/18 01/12/18 05:30 07:45 11:14 WBC RBC Hgb Hct MCV MCH MCHC RDW Plt Count MPV Gran % Lymph % (Auto) [place] % (Auto) Eos % (Auto) Baso % (Auto) Gran # Lymph # (Auto) [place] # (Auto) Eos # (Auto) Baso # (Auto) Sodium 144 Potassium 4.9 Chloride 103 Carbon Dioxide 26 Anion Gap 20 BUN 46 H Creatinine 7.6 H* Est GFR ( Amer) 9 Est GFR (Non-Af Amer) 7 POC Glucose (mg/dL) 121 H 166 H Random Glucose 130 H Calcium 8.5 Phosphorus 6.9 H Magnesium 1.8 Total Bilirubin 0.2 AST 21 ALT 20 Alkaline Phosphatase 64 Troponin I Total Protein 6.5 Albumin 3.7 Globulin 2.8 Albumin/Globulin Ratio 1.3 Procalcitonin Attending/Attestation - Attestation I have personally seen and examined this patient.: Yes I have fully participated in the care of the patient.: Yes I have reviewed all pertinent clinical information: Yes Notes (Text): 01/12/18 15:06 Medical record note made by the resident after discussion with my direction and input after the patient was personally seen and examined by me. I have reviewed the chart and agree that the record accurately reflects by personal performance of the history, physical exam, data review, and medical decision-making, in the course for the patient. I have also personally directed the plan of care. 57 year old male with past medical history of ESRD , CAD s/p stents and CABG, hypertension, diabetes ,Esophagitis and noncompliance with medication and dialysis regimen came to ER with H/O insomnia, was found to be hyperkalemic, EKG is negative for hyperkalemic changes.Patient was treated for hyperkalemia and is undergoing hemodialysis .Patient is afebrile, does not has any cough/ dyspnea .there is no leukocytosis.,Procalcitonin level is normal, there is no clinical evidence of Pneumonia.We will hold of antibiotics at this time. Management plan was discussed in detail with patient. Education was provided.
[2018-01-11] MEDS ORDERED: Azithromycin 500MG/NS 250ml 500 MG/250 ML BAG IVPB SCH (10:00)
[2018-01-11] MEDS ORDERED: cefTRIAXone 1 gm 1 GM/100 ML BAG IVPB SCH (10:00)
[2018-01-11 12:05] LABS: CALCIUM 8.7 mg/dL (8.4-10.5)
[2018-01-11 12:08] LABS: TROPONIN I 0.02 ng/mL
--- NOTE | 2018-01-11 13:15 | CARD ---
APPROVED REPORT EKG Measurement Heart [id number] <Conclusion> Normal sinus rhythm Possible Left atrial enlargement Cannot rule out Anterior infarct, age undetermined Abnormal ECG
--- NOTE | 2018-01-11 13:54 | CP.PCM.CON ---
History of Present Illness - History of Present Illness History of Present Illness: Renal Note pt seen and examined on HD labs vitals reviewed c/o insomnia non compliant to HD often misses HD HD as TTS Past Patient History - Infectious Disease Hx of Infectious Diseases: None - Tetanus Immunizations Tetanus Immunization: Unknown - Past Medical History & Family History Past Medical History?: Yes - Past Social History Smoking Status: Light Smoker < 10 Cigarettes Daily - CARDIAC Hx Cardiac Disorders: Yes (CAD, VT x 3, CABG x 3) Hx Hypertension: Yes - PULMONARY Hx Respiratory Disorders: Yes Other/Comment: PULMONARY EDEMA - NEUROLOGICAL Hx Neurological Disorder: No Hx Paralysis: No - HEENT Hx HEENT Problems: No (CONTACT LENSES) - RENAL Hx Renal Failure: Yes (HD TUES,THUR,SAT) Other/Comment: shunt rt arm - ENDOCRINE/METABOLIC Hx Diabetes Mellitus Type 2: Yes - HEMATOLOGICAL/ONCOLOGICAL Hx Blood Disorders: No Hx Blood Transfusions: No - INTEGUMENTARY Hx Dermatological Problems: Yes Other/Comment: righty lower ext rash, pt stated "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" - MUSCULOSKELETAL/RHEUMATOLOGICAL Hx Musculoskeletal Disorders: No - GASTROINTESTINAL Hx Gastrointestinal Disorders: No - GENITOURINARY/GYNECOLOGICAL Hx Genitourinary Disorders: No - PSYCHIATRIC Hx Psychophysiologic Disorder: No Hx Emotional Abuse: No Hx Physical Abuse: No Hx Substance Use: Yes (MARIJUANA USE DAILY) - SURGICAL HISTORY Hx Coronary Artery Bypass Graft: Yes (2012) Other/Comment: shunt rt arm - ANESTHESIA Hx Anesthesia Reactions: No Meds Allergies/Adverse Reactions: Allergies Allergy/AdvReac Type Severity Reaction Status Date / Time Seafood Allergy ANAPHYLAXIS Uncoded 01/11/18 12:11 - Medications Medications: Current Medications Amlodipine Besylate (Norvasc) 5 mg PO DAILY [facility] Aspirin (Aspirin Chewable) 81 mg PO DAILY [facility] Atorvastatin Calcium (Lipitor) 40 mg PO DIN [facility] Heparin Sodium (Porcine) (Heparin) 5,000 units SC Q8H MARYANN PRN Reason: Protocol Last Admin: 01/11/18 09:20 Dose: 5,000 units Hydralazine HCl (Apresoline) 25 mg PO TID [facility] Insulin Human Regular (Humulin R Low) 0 units SC ACHS MARYANN PRN Reason: Protocol Isosorbide Mononitrate (Imdur) 60 mg PO DAILY [facility] Losartan Potassium (Cozaar) 100 mg PO DAILY [facility] Metoprolol Tartrate (Lopressor) 25 mg PO BID [facility] Pantoprazole Sodium (Protonix Ec Tab) 40 mg PO DAILY [facility] Sevelamer HCl (Renagel) 1,600 mg PO TID [facility] Vitamin B Complex/Vit C/Folic Acid (Nephro-Eleni) 1 tab PO DAILY [facility] Results - Vital Signs Recent Vital Signs: Last Vital Signs Temp 98.4 F 01/11/18 04:55 Pulse 62 01/11/18 04:55 Resp 18 01/11/18 04:55 BP 199/94 H 01/11/18 04:55 Pulse Ox 100 01/11/18 04:55 - Labs Result Diagrams: 01/11/18 05:13 01/11/18 11:30 Labs: Laboratory Results - last 24 hr 01/11/18 11:30 Sodium 145 Potassium 4.3 Chloride 102 Carbon Dioxide 18 L Anion Gap 29 H BUN 59 H Creatinine 8.9 H* D Est GFR ( Amer) 7 Est GFR (Non-Af Amer) 6 Random Glucose 153 H Calcium 8.7 Troponin I 0.02 D
[2018-01-11] MEDS: Insulin Reg-LOW-Coverage SC SCH ×3 (15:10→22:39)
[2018-01-11] MEDS: Pantoprazole 40 mg EC Tab PO SCH (15:17)
[2018-01-11] MEDS: Multivitamin Vitamin B Complex (Nephro-Vite) Tab PO SCH (15:27)
[2018-01-11] MEDS ORDERED: Insulin Regular 1 UNITS/0.01 ML ML ONE (17:43)
--- NOTE | 2018-01-11 17:51 | US ---
HISTORY: Leg pain and swelling. Evaluate for DVT PHYSICIAN(S): Yousif Cortés MD. TECHNIQUE: Duplex sonography and color-flow Doppler with graded compression were used to evaluate the deep venous systems of both lower extremities. The exam is limited by edema. The tibial veins are not well seen FINDINGS: The visualized deep venous systems of both lower extremities are sonographically normal and compressible. Normal wave forms and augmentation are seen. There is no sonographic evidence for deep venous thrombosis in the visualized segments of both lower extremities. IMPRESSION: No sonographic evidence for deep venous thrombosis in the visualized segments of both lower extremities.
[2018-01-11 19:34] VITALS: BMI 19.2
[2018-01-11] MEDS ORDERED: Pneumococcal 23-Valent Vaccine IM ONE (19:34)
[2018-01-12 03:11] VITALS: TEMP 98.2
[2018-01-12 06:08] VITALS: O2SAT 96
[2018-01-12 06:36] LABS: BASO # 0.05 K/mm3 (0.0-2.0); EOS # 0.3 (0.0-0.7); EOS % 5.4 % (1.5-5.0); GRAN # 2.68 (1.4-6.5); HEMOGLOBIN 10.6 g/dL (14.0-18.0); LYMPH # 1.6 (1.2-3.4); LYMPH % 32.7 % (22.0-35.0); MEAN CELL VOLUME 87.5 fl (80.0-105.0); MEAN CORPUSCULAR HEMOGLOBIN 28.1 pg (25.0-35.0); MEAN CORPUSCULAR HGB CONC 32.1 g/dl (31.0-37.0); MEAN PLATELET VOLUME 10.6 fl (7.0-11.0); MONO # 0.3 (0.1-0.6); MONO % 6.9 % (1.0-6.0); RBC 3.77 10^6/uL (3.5-6.1); RED CELL DISTRIBUTION WIDTH 14.6 % (11.5-14.5)
[2018-01-12 07:01] LABS: ALB/GLOB RATIO 1.3 (1.1-1.8); ALBUMIN 3.7 g/dL (3.0-4.8); CALCIUM 8.5 mg/dL (8.4-10.5)
--- NOTE | 2018-01-12 07:49 | CP.PCM.DIS ---
<Kayleigh Martinez - Last Filed: 01/12/18 12:20> Provider - Provider Date of Admission: 01/11/18 06:50 Attending physician: Corey Moore MD Primary care physician: Manuel Pink DO Consults: Dr. Garrett Time Spent in preparation of Discharge (in minutes): 35 Hospital Course - Lab Results Lab Results: Most Recent Lab Values WBC 5.0 10^3/ul (4.5-11.0) D 01/12/18 05:30 RBC 3.77 10^6/uL (3.5-6.1) 01/12/18 05:30 Hgb 10.6 g/dL (14.0-18.0) L 01/12/18 05:30 Hct 33.0 % (42.0-52.0) L 01/12/18 05:30 MCV 87.5 fl (80.0-105.0) 01/12/18 05:30 MCH 28.1 pg (25.0-35.0) 01/12/18 05:30 MCHC 32.1 g/dl (31.0-37.0) 01/12/18 05:30 RDW 14.6 % (11.5-14.5) H 01/12/18 05:30 Plt Count 208 10^3/uL (120.0-450.0) 01/12/18 05:30 MPV 10.6 fl (7.0-11.0) 01/12/18 05:30 Gran % 54.0 % (50.0-68.0) 01/12/18 05:30 Lymph % (Auto) 32.7 % (22.0-35.0) 01/12/18 05:30 [place] % (Auto) 6.9 % (1.0-6.0) H 01/12/18 05:30 Eos % (Auto) 5.4 % (1.5-5.0) H 01/12/18 05:30 Baso % (Auto) 1.0 % (0.0-3.0) 01/12/18 05:30 Gran # 2.68 (1.4-6.5) 01/12/18 05:30 Lymph # (Auto) 1.6 (1.2-3.4) 01/12/18 05:30 [place] # (Auto) 0.3 (0.1-0.6) 01/12/18 05:30 Eos # (Auto) 0.3 (0.0-0.7) 01/12/18 05:30 Baso # (Auto) 0.05 K/mm3 (0.0-2.0) 01/12/18 05:30 PT 12.6 SECONDS (9.4-12.5) H 01/11/18 05:35 INR 1.09 (0.93-1.08) H 01/11/18 05:35 APTT 34.5 Seconds (25.1-36.5) 01/11/18 05:35 Sodium 144 mmol/L (132-148) 01/12/18 05:30 Potassium 4.9 mmol/L (3.6-5.0) 01/12/18 05:30 Chloride 103 mmol/L (98-107) 01/12/18 05:30 Carbon Dioxide 26 mmol/L (21-33) 01/12/18 05:30 Anion Gap 20 (10-20) 01/12/18 05:30 BUN 46 mg/dL (7-21) H 01/12/18 05:30 Creatinine 7.6 mg/dl (0.8-1.5) H* 01/12/18 05:30 Est GFR ( Amer) 9 01/12/18 05:30 Est GFR (Non-Af Amer) 7 01/12/18 05:30 POC Glucose (mg/dL) 137 mg/dL (65-110) H 01/11/18 22:38 Random Glucose 130 mg/dL (70-110) H 01/12/18 05:30 Calcium 8.5 mg/dL (8.4-10.5) 01/12/18 05:30 Phosphorus 6.9 mg/dL (2.5-4.5) H 01/12/18 05:30 Magnesium 1.8 mg/dL (1.7-2.2) 01/12/18 05:30 Total Bilirubin 0.2 mg/dL (0.2-1.3) 01/12/18 05:30 AST 21 U/L (17-59) 01/12/18 05:30 ALT 20 U/L (7-56) 01/12/18 05:30 Alkaline Phosphatase 64 U/L (38-126) 01/12/18 05:30 Lactate Dehydrogenase 372 U/L (333-699) 01/11/18 05:35 Total Creatine Kinase 142 U/L (35-230) 01/11/18 05:35 Troponin I 0.02 ng/mL 01/11/18 20:15 NT-Pro-B Natriuret Pep 43083 pg/mL (0-450) H 01/11/18 05:35 Total Protein 6.5 g/dL (5.8-8.3) 01/12/18 05:30 Albumin 3.7 g/dL (3.0-4.8) 01/12/18 05:30 Globulin 2.8 gm/dL 01/12/18 05:30 Albumin/Globulin Ratio 1.3 (1.1-1.8) 01/12/18 05:30 Procalcitonin < 0.05 NG/ML (0.19-0.49) L 01/11/18 10:40 - Hospital Course Hospital Course: Patient is a 57 year old male with extensive past medical history that includes ESRD on HD (Mon//Mon), DM type 2 on insulin, NM x3, CAD s/p 3 stents, CABG, HTN, peripheral neuropathy and gastroparesis that presents to [facility] with report of inability to sleep since Monday afternoon. He states that he has felt jittery and has been unable to relax for the last several days. Reports having been to dialysis this past Monday where ~3L of fluid was removed however skipped his Monday session because of difficulty getting out of bed.He also complained of bilateral lower extremity cramping pain in the calfs and feet. Otherwise, he denies chest pain, palpitations, SOB, abdominal pain, nausea, vomiting, fever, chills, cough, focal weakness, numbness, tingling. In the ED he was found to have a K of 6.2, hyperkalemia and given albuterol , kayexalate, insulin in the ED. His EKG showed no acute ST-T wave changes or peaked T waves. He underwent urgent hemodialysis and his symptoms largely resolved. He did have a chest X-ray that showed a chronic appearing infiltrate; his procalcitonin as well as blood cultures were negative and he did not have any cough, fever, or leukocytosis. The patient was advised to continue going to HD as scheduled and not to miss a session. He voiced understanding in this regard. He was discharged with the below written instructions and recommendations. - Date & Time of H&P Date of H&P: 01/12/18 Time of H&P: 12:20 Discharge Exam - Head Exam Head Exam: ATRAUMATIC, NORMOCEPHALIC - Eye Exam Eye Exam: EOMI, Normal appearance - ENT Exam ENT Exam: Mucous Membranes Moist, Normal Oropharynx - Neck Exam Neck exam: Normal Inspection - Respiratory Exam Respiratory Exam: Clear to PA & Lateral, NORMAL BREATHING PATTERN. absent: Accessory Muscle Use - Cardiovascular Exam Cardiovascular Exam: RRR, +S1, +S2 - GI/Abdominal Exam GI & Abdominal Exam: Normal Bowel Sounds. absent: Guarding - Extremities Exam Extremities exam: normal inspection - Back Exam Back exam: NORMAL INSPECTION. absent: CVA tenderness (L), CVA tenderness (R) - Neurological Exam Neurological exam: Alert, CN II-XII Intact, Oriented x3 - Psychiatric Exam Psychiatric exam: Normal Affect, Normal Mood - Skin Skin Exam: Dry, Intact, Normal Color, Warm Discharge Plan - Follow Up Plan Condition: STABLE Disposition: HOME/ ROUTINE Instructions: End Stage Kidney Disease (DC), Heart Failure (DC), Renal Failure Diet (DC) Additional Instructions: 1) Patient to follow up with PMD within one week of discharge. 2) Patient to take all medications as directed, unless otherwise indicated. 3) Patient to resume dialysis as scheduled. Referrals: Manuel Pink DO [Primary Care Provider] - <Corey Moore - Last Filed: 01/12/18 15:26> Provider - Provider Date of Admission: 01/11/18 06:50 Attending physician: Corey Moore MD Primary care physician: Manuel Pink DO Hospital Course - Lab Results Lab Results: Micro Results 01/11/18 10:40 Blood-Venous Blood Culture - Preliminary NO GROWTH AFTER 24 HOURS 01/11/18 10:10 Blood-Venous Blood Culture - Preliminary NO GROWTH AFTER 24 HOURS Most Recent Lab Values WBC 5.0 10^3/ul (4.5-11.0) D 01/12/18 05:30 RBC 3.77 10^6/uL (3.5-6.1) 01/12/18 05:30 Hgb 10.6 g/dL (14.0-18.0) L 01/12/18 05:30 Hct 33.0 % (42.0-52.0) L 01/12/18 05:30 MCV 87.5 fl (80.0-105.0) 01/12/18 05:30 MCH 28.1 pg (25.0-35.0) 01/12/18 05:30 MCHC 32.1 g/dl (31.0-37.0) 01/12/18 05:30 RDW 14.6 % (11.5-14.5) H 01/12/18 05:30 Plt Count 208 10^3/uL (120.0-450.0) 01/12/18 05:30 MPV 10.6 fl (7.0-11.0) 01/12/18 05:30 Gran % 54.0 % (50.0-68.0) 01/12/18 05:30 Lymph % (Auto) 32.7 % (22.0-35.0) 01/12/18 05:30 [place] % (Auto) 6.9 % (1.0-6.0) H 01/12/18 05:30 Eos % (Auto) 5.4 % (1.5-5.0) H 01/12/18 05:30 Baso % (Auto) 1.0 % (0.0-3.0) 01/12/18 05:30 Gran # 2.68 (1.4-6.5) 01/12/18 05:30 Lymph # (Auto) 1.6 (1.2-3.4) 01/12/18 05:30 [place] # (Auto) 0.3 (0.1-0.6) 01/12/18 05:30 Eos # (Auto) 0.3 (0.0-0.7) 01/12/18 05:30 Baso # (Auto) 0.05 K/mm3 (0.0-2.0) 01/12/18 05:30 PT 12.6 SECONDS (9.4-12.5) H 01/11/18 05:35 INR 1.09 (0.93-1.08) H 01/11/18 05:35 APTT 34.5 Seconds (25.1-36.5) 01/11/18 05:35 Sodium 144 mmol/L (132-148) 01/12/18 05:30 Potassium 4.9 mmol/L (3.6-5.0) 01/12/18 05:30 Chloride 103 mmol/L (98-107) 01/12/18 05:30 Carbon Dioxide 26 mmol/L (21-33) 01/12/18 05:30 Anion Gap 20 (10-20) 01/12/18 05:30 BUN 46 mg/dL (7-21) H 01/12/18 05:30 Creatinine 7.6 mg/dl (0.8-1.5) H* 01/12/18 05:30 Est GFR ( Amer) 9 01/12/18 05:30 Est GFR (Non-Af Amer) 7 01/12/18 05:30 POC Glucose (mg/dL) 166 mg/dL (65-110) H 01/12/18 11:14 Random Glucose 130 mg/dL (70-110) H 01/12/18 05:30 Calcium 8.5 mg/dL (8.4-10.5) 01/12/18 05:30 Phosphorus 6.9 mg/dL (2.5-4.5) H 01/12/18 05:30 Magnesium 1.8 mg/dL (1.7-2.2) 01/12/18 05:30 Total Bilirubin 0.2 mg/dL (0.2-1.3) 01/12/18 05:30 AST 21 U/L (17-59) 01/12/18 05:30 ALT 20 U/L (7-56) 01/12/18 05:30 Alkaline Phosphatase 64 U/L (38-126) 01/12/18 05:30 Lactate Dehydrogenase 372 U/L (333-699) 01/11/18 05:35 Total Creatine Kinase 142 U/L (35-230) 01/11/18 05:35 Troponin I 0.02 ng/mL 01/11/18 20:15 NT-Pro-B Natriuret Pep 66524 pg/mL (0-450) H 01/11/18 05:35 Total Protein 6.5 g/dL (5.8-8.3) 01/12/18 05:30 Albumin 3.7 g/dL (3.0-4.8) 01/12/18 05:30 Globulin 2.8 gm/dL 01/12/18 05:30 Albumin/Globulin Ratio 1.3 (1.1-1.8) 01/12/18 05:30 Procalcitonin < 0.05 NG/ML (0.19-0.49) L 01/11/18 10:40 Attending/Attestation - Attestation I have personally seen and examined this patient.: Yes I have fully participated in the care of the patient.: Yes I have reviewed all pertinent clinical information, including history, physical exam and plan: Yes Notes (Text): 01/12/18 15:20 Medical record note made by the resident after discussion with my direction and input after the patient was personally seen and examined by me. I have reviewed the chart and agree that the record accurately reflects by personal performance of the history, physical exam, data review, and medical decision-making, in the course for the patient. I have also personally directed the plan of care. 57 year old male with past medical history of ESRD , CAD s/p stents and CABG, hypertension, diabetes ,Esophagitis and noncompliance with medication and dialysis regimen came to ER with H/O insomnia, was found to be hyperkalemic, EKG was negative for hyperkalemic changes.Patient was treated for hyperkalemia and is underwent hemodialysis . Patient is afebrile, does not has any cough/dyspnea .there is no leukocytosis.Procalcitonin level is normal, there is no clinical evidence of Pneumonia. Patient is feeling better at his base line.He will be discharged home. The issue of compliance with medications and hemodialysis was discussed in detail. Management plan was discussed in detail with patient. Education was provided.
[2018-01-12] MEDS: Insulin Reg-LOW-Coverage SC SCH ×2 (08:30→11:50)
[2018-01-12] MEDS: Multivitamin Vitamin B Complex (Nephro-Vite) Tab PO SCH (09:32)
[2018-01-12] MEDS: Pantoprazole 40 mg EC Tab PO SCH (09:32)
[2018-01-12 12:05] VITALS: BP 156/91; PULSE 85; RESP 20
--- NOTE | 2018-01-12 13:39 | CP.PCM.PN ---
Subjective - Date & Time of Evaluation Date of Evaluation: 01/12/18 Time of Evaluation: 13:38 - Subjective Subjective: Renal Note pt seen and examined labs vitals reviewed c/o insomnia but better now non compliant to HD often misses HD HD as TTS Objective - Vital Signs/Intake and Output Vital Signs (last 24 hours): Temp Pulse Resp BP Pulse Ox 98.2 F 85 20 156/91 H 96 01/12/18 12:00 01/12/18 12:00 01/12/18 12:00 01/12/18 12:00 01/12/18 06:00 Intake and Output: 01/12/18 01/12/18 06:59 18:59 Intake Total 420 240 Output Total 600 1200 Balance -180 -960 - Medications Medications: Current Medications Acetaminophen (Tylenol 325mg Tab) 650 mg PO Q6H PRN PRN Reason: Pain, severe (8-10) Amlodipine Besylate (Norvasc) 5 mg PO DAILY [facility] Last Admin: 01/12/18 09:33 Dose: 5 mg Aspirin (Aspirin Chewable) 81 mg PO DAILY [facility] Last Admin: 01/12/18 09:32 Dose: 81 mg Atorvastatin Calcium (Lipitor) 40 mg PO DIN [facility] Last Admin: 01/11/18 17:46 Dose: 40 mg Diphenhydramine HCl (Benadryl) 25 mg PO ONCE PRN PRN Reason: Insomnia Last Admin: 01/11/18 20:47 Dose: 25 mg Heparin Sodium (Porcine) (Heparin) 5,000 units SC Q8H MARYANN PRN Reason: Protocol Last Admin: 01/12/18 08:37 Dose: 5,000 units Hydralazine HCl (Apresoline) 25 mg PO TID [facility] Last Admin: 01/12/18 09:33 Dose: 25 mg Insulin Human Regular (Humulin R Low) 0 units SC ACHS [facility] PRN Reason: Protocol Last Admin: 01/12/18 11:50 Dose: 1 units Isosorbide Mononitrate (Imdur) 60 mg PO DAILY [facility] Last Admin: 01/12/18 09:32 Dose: 60 mg Losartan Potassium (Cozaar) 100 mg PO DAILY [facility] Last Admin: 01/12/18 09:33 Dose: 100 mg Metoprolol Tartrate (Lopressor) 25 mg PO BID [facility] Last Admin: 01/12/18 09:33 Dose: 25 mg Pantoprazole Sodium (Protonix Ec Tab) 40 mg PO DAILY [facility] Last Admin: 01/12/18 09:32 Dose: 40 mg Sevelamer HCl (Renagel) 1,600 mg PO TID [facility] Last Admin: 01/12/18 09:32 Dose: 1,600 mg Vitamin B Complex/Vit C/Folic Acid (Nephro-Eleni) 1 tab PO DAILY [facility] Last Admin: 01/12/18 09:32 Dose: 1 tab - Labs Labs: 01/12/18 05:30 01/12/18 05:30 PT 12.6 SECONDS (9.4-12.5) H 01/11/18 05:35 INR 1.09 (0.93-1.08) H 01/11/18 05:35 APTT 34.5 Seconds (25.1-36.5) 01/11/18 05:35
== END 2018-01-12 14:25 | disposition home or self-care (01) ==
LOC: ED 04:24 → ERH 06:50 → 2RNO 19:14
PROVIDERS: ADMIT Internal Medicine; ATTEND Internal Medicine
DX: I13.2 Hypertensive heart and chronic kidney disease with heart failure and with stage 5 chronic kidney disease, or end stage renal disease (principal); N18.6 End stage renal disease; I50.9 Heart failure, unspecified; E11.22 Type 2 diabetes mellitus with diabetic chronic kidney disease; E11.43 Type 2 diabetes mellitus with diabetic autonomic (poly)neuropathy; K31.84 Gastroparesis; E11.42 Type 2 diabetes mellitus with diabetic polyneuropathy; E87.5 Hyperkalemia; E78.5 Hyperlipidemia, unspecified; K20.9 Esophagitis, unspecified; F17.210 Nicotine dependence, cigarettes, uncomplicated; I25.10 Atherosclerotic heart disease of native coronary artery without angina pectoris; F12.90 Cannabis use, unspecified, uncomplicated; G47.00 Insomnia, unspecified; I25.2 Old myocardial infarction; Z99.2 Dependence on renal dialysis; Z79.4 Long term (current) use of insulin; Z91.14 Patient's other noncompliance with medication regimen; Z95.1 Presence of aortocoronary bypass graft; Z91.15 Patient's noncompliance with renal dialysis; Z95.5 Presence of coronary angioplasty implant and graft; Z80.0 Family history of malignant neoplasm of digestive organs
CPT/HCPCS: 36415; 71045; 80053; 82550; 82948; 83615; 83735; 83880; 84100; 84145; 84484; 85025; 85027; 85610; 85730; 87040; 87086; 87181; 90935; 93005; 93970; 94640; 96372; 96374; 96375; 99285; G0378; J1644

== ENCOUNTER 2018-02-18 23:11 | Inpatient (IN) | payer MEDICAID ==
[2018-02-18 23:17] VITALS: BMI 28.8
--- NOTE | 2018-02-18 23:47 | ED PDOC ---
Arrival/HPI - General Time Seen by Provider: 02/18/18 23:18 Historian: EMS - History of Present Illness Narrative History of Present Illness (Text): 02/18/18 23:23 Manuel Lay is a 57 year old male, whose past medical history includes ESRD with hemodialysis , LA, CAD with coronary stents, CABG, hypertension, diabetes, diabetic neuropathy, partial right foot amputation, and gastroparesis, who presents to the Emergency department brought in by EMS for shortness of breath prior to arrival. Patient on arrival to Emergency department was awake and talking. Patient then became unresponsive and bradycardic with agonal respirations. Limited HPI and ROS secondary to patient's altered mental status/ unstable vital signs. Symptom Onset: Sudden Symptom Course: Unchanged Severity Level: Severe Activities at Onset: Light Context: Home Past Medical History - Provider Review Nursing Documentation Reviewed: Yes - Infectious Disease Hx of Infectious Diseases: None - Tetanus Immunization Tetanus Immunization: Unknown - Cardiac Hx Cardiac Disorders: Yes (CAD, LA x 3, CABG x 3) Hx Congestive Heart Failure: Yes Hx Hypertension: Yes - Pulmonary Hx Respiratory Disorders: Yes Other/Comment: PULMONARY EDEMA - Neurological Hx Neurological Disorder: Yes (NEUROPATHY) HX Cerebrovascular Accident: Yes Hx Dizziness: Yes (SYNCOPE) - HEENT Hx HEENT Disorder: No (CONTACT LENSES) - Renal Hx Renal Disorder: Yes Date of Last Dialysis Treatment: 01/11/18 Hx Renal Failure: Yes (HD TUES,THUR,SAT) Other/Comment: shunt rt arm - Endocrine/Metabolic Hx Endocrine Disorders: Yes Hx Diabetes Mellitus Type 2: Yes - Hematological/Oncological Hx Blood Disorders: No - Integumentary Hx Dermatological Disorder: Yes Other/Comment: righty lower ext rash, pt stated "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" - Musculoskeletal/Rheumatological Hx Musculoskeletal Disorders: Yes Hx Falls: Yes Hx Unsteady Gait: Yes (SPECIAL SHOES WORN) - Gastrointestinal Hx Gastrointestinal Disorders: Yes (GASTROPARESIS) - Genitourinary/Gynecological Hx Genitourinary Disorders: Yes (URINARY RETENTION-OLIVERA) Hx Urinary Tract Infection: Yes - Psychiatric Hx Psychophysiologic Disorder: No Hx Emotional Abuse: No Hx Physical Abuse: No Hx Substance Use: Yes (MARIJUANA USE.DAILY.) - Surgical History Hx Cardiac Catheterization: Yes Hx Cholecystectomy: Yes Hx Coronary Stent: Yes (3) Other/Comment: shunt rt arm,L HIP SX,L KNEE SX, - Anesthesia Hx Anesthesia Reactions: No - Suicidal Assessment Feels Threatened In Home Enviroment: No Family/Social History - Physician Review Nursing Documentation Reviewed: Yes Family/Social History: Unknown Family HX Smoking Status: Never Smoked Hx Alcohol Use: Yes (H/O ETOH ABUSE-QUIT) Hx Substance Use: Yes (MARIJUANA USE.DAILY.) Hx Substance Use Treatment: No Allergies/Home Meds Allergies/Adverse Reactions: Allergies shellfish derived Allergy (Verified 02/18/18 23:18) ANAPHYLAXIS Seafood Allergy (Uncoded 02/18/18 23:18) ANAPHYLAXIS Home Medications: Home Meds Medication Instructions Recorded Confirmed Vit B Cmplx 3/Folic AC/C/Biot 1 tab PO DAILY 01/01/18 02/18/18 [Mame-Eleni Rx Tablet] Sevelamer [Renagel] 1,600 mg PO TID 01/02/18 02/18/18 Review of Systems - Review of Systems Systems not reviewed;Unavailable: Unstable Vital Signs Respiratory: SOB Physical Exam Vital Signs Reviewed: Yes Vital Signs Temp Pulse Resp BP Pulse Ox 02/19/18 01:50 48 L 90/56 L 02/19/18 01:40 51 L 20 90/56 L 98 02/19/18 01:25 98.8 F 51 L 20 95/46 L 98 02/19/18 01:10 109 H 20 73/64 L 96 02/19/18 00:47 48 L 20 86/68 L 95 02/19/18 00:20 47 L 20 81/45 L 95 02/19/18 00:06 58 L 20 174/78 H 02/18/18 23:47 60 18 147/78 82 L Temperature: Afebrile Blood Pressure: Hypertensive Pulse: Bradycardic Respiratory Rate: Agonal Appearance: Positive for: Ill-Appearing Mental Status: Positive for: other (Unresponsive) - Systems Exam Head: Present: Atraumatic, Normocephalic Conjunctiva: Present: Normal Mouth: Present: Moist Mucous Membranes Respiratory/Chest: Present: Rhonchi (Rhonchi bilaterally), Other (Agonal breathing) Cardiovascular: Present: Bradycardic Abdomen: Present: Normal Bowel Sounds. No: Distention, Peritoneal Signs Upper Extremity: Present: Normal Inspection. No: Cyanosis, Edema Lower Extremity: Present: Normal Inspection, Other (Parital right foot amputation). No: Edema Neurological: Present: Other (Unresponsive) Medical Decision Making ED Course and Treatment: 02/18/18 23:23 Impression: 57 year old male brought in for shortness of breath, became agonal, unresponsive in ER. Plan: -- EKG -- Chest X-ray -- Labs, cardiac enzymes, BNP, blood cultures -- Propofol -- Reassess and disposition Prior Visits: Notes and results from previous visits were reviewed. On 01/11/2018, pt was seen in the Emergency department for insomnia, generalized malase, and bilateral lower extremity pain. Pt was admitted to the hospital for further evaluation. Progress Notes: 02/18/18 23:23 On arrival to Emergency department, pt was awake, talking. Pt became unresponsive, bradycardic, with agonal respirations. Pt placed on bag valve mask. Will intubate. 02/18/18 23:30 Pt remains bradycardic, Atropine given. 02/18/18 23:34 Intubation attempted, Etomidate 20mg given. 02/18/18 23:38 Pt previously in heart block, now asystolic, pulseless. ACLS protocol and CPR intiated. Epi ordered, given at 23:39. 02/18/18 23:41 Epi #2 given. Pt with palpable pulses, now in sinus tachycardia. Refer to nursing code documentation. 02/18/18 23:44 PROCEDURE: INTUBATION Performed by the emergency provider Consent: Discussion of the risks, benefits, and alternatives to the procedure, along with informed consent was precluded by the urgency of the procedure and the patient condition. Timeout: A timeout to verify the correct patient, procedure, and site was performed. Indication: Agonal respiration Pre-oxygenation: [id number] Medications: Etomidate. See MAR for details. ETT Size: 8 gauge Confirmation: Cords directly visualized as tube passed, good bilateral breath sounds, positive CO2 detector color change, tube fogging, adequate chest rise, improving pulse oximetry reading, improved skin color, and absence of gastric sounds,. ETT Secured: The cuff was inflated and the tube was secured appropriately at a distance of 23 cm at the lip. Post-Procedure: There were no immediate complications. CXR Confirmation: Yes 02/18/18 23:50 Reviewed EKG, NSR at 70 bpm. Sinus arrhythmia. RBBB. LAFB. Bifascicular block. Septal infarct. 02/19/18 00:14 Chest X-ray reviewed, ET tube above the stanford, cardiomegaly, questionable left- sided pneumonia. 02/19/18 01:04 Pt bradycardic. Labs noted, creatinine, troponin 30.70. Pt placed on Dobutamine. 02/19/18 01:07 Pt became asystolic, pulseless. CPR commenced. Atropine and Epi given. 02/19/18 01:10 Pt now in sinus tachycardia, with palpable pulses. Paged Dr. Mcdermott. :[address] Mcdermott, solar field installation crew member, states pt is not a candidate for cardiac catheterization. 02/19/18 01:[address] Koki Muir, who is aware and agrees with plan. Pt will be admitted to the ICU for cardiac arrest under the hospitalist service. resident surgeon notified. 02/19/18 02:10 PROCEDURE: VENIPUNCTURE Performed by the emergency provider. Consent: Discussion of the risks, benefits, and alternatives to the procedure, along with informed consent was precluded by the urgency of the procedure and the patient condition. Timeout: A timeout to verify the correct patient, procedure, and site was performed immediately prior to the procedure. Indication: IV access Skin Preparation: Hand hygiene performed prior to venous catheter insertion. The area was cleansed and prepped with alcohol swabs. Location: Right neck/EJ Technique: An 18 gauge catheter was placed into the RIGHT external jugular. Successful placement: YES. Good blood return, flushes well. Post-procedure: Patient tolerated the procedure well with no immediate complications. - Critical Care Critical Care Minutes: 45 minutes Narrative Critical Care (Text): Management of ACS - Lab Interpretations Lab Results: 02/19/18 00:08 02/19/18 00:08 Lab Results 02/19/18 00:08: Sodium 134, Potassium 5.2 H, Chloride 96 L, Carbon Dioxide 44 H D, Anion Gap 33 H, BUN 54 H, Creatinine 10.1 H* D, Est GFR ( Amer) 6, Est GFR (Non-Af Amer) 5, Random Glucose 293 H, Calcium 7.2 L, Magnesium 1.9, Total Bilirubin 1.4 H, AST 169 H D, ALT 80 H, Alkaline Phosphatase 69, Lactate Dehydrogenase 1476 H, Total Creatine Kinase 987 H, CK-MB (CK-2) 40.0 H, CK-MB ( CK-2) % 4.1 H, Troponin I 30.70 H* D, NT-Pro-B Natriuret Pep 17746 H, Total Protein 6.8, Albumin 4.0, Globulin 2.8, Albumin/Globulin Ratio 1.5 02/19/18 00:08: PT 14.3 H, INR 1.25 H, APTT 32.6 02/19/18 00:08: WBC 13.4 H D, RBC 4.33, Hgb 12.4 L, Hct 38.5 L, MCV 88.9, MCH 28.6, MCHC 32.2, RDW 15.3 H, Plt Count 225, MPV 11.7 H, Gran % 70.5 H, Lymph % ( Auto) 20.3 L, [place] % (Auto) 8.5 H, Eos % (Auto) 0.3 L, Baso % (Auto) 0.4, Gran # 9.47 H, Lymph # (Auto) 2.7, Charlotte # (Auto) 1.1 H, Eos # (Auto) 0.0, Baso # ( Auto) 0.06 I have reviewed the lab results: Yes - RAD Interpretation Radiology Orders: 02/18/18 23:51 CHEST PORTABLE [RAD] Stat Photographic Colorist: ED Physician - EKG Interpretation Interpreted by ED Physician: Yes Type: 12 lead EKG - Medication Orders Current Medication Orders: Azithromycin (Zithromax 500mg In Ns) 500 mg in 250 mls @ 167 mls/hr IVPB DAILY [facility] PRN Reason: Protocol Discontinued Medications Albuterol/Ipratropium (Duoneb 3 Mg/0.5 Mg (3 Ml) Ud) [id number] [facility] Last Admin: 02/19/18 13:10 Dose: 3 ml Aspirin (Aspirin Chewable) 81 mg PO DAILY MARYANN Last Admin: 02/19/18 09:06 Dose: 81 mg Atorvastatin Calcium (Lipitor) 40 mg PO DIN MARYANN Clopidogrel Bisulfate (Plavix) 300 mg PO STAT STA Stop: 02/19/18 08:21 Last Admin: 02/19/18 09:06 Dose: 300 mg Propofol (Diprivan) 1,000 mg in 100 mls @ 2.585 mls/hr IV .Q24H PRN; Protocol; 5 MCG/KG/MIN PRN Reason: TITRATE PER MD ORDER Last Titration: 02/19/18 09:25 Dose: 30 mcg/kg/min, 15.513 mls/hr Avila Agitation Sedation Document 02/19/18 09:25 JUR (Rec: 02/19/18 09:26 [place] [facility] [place] Avila Agitation Sedation Scale Avila Agitation Sedation Scale Score +2 Agitated: Frequent non- purposeful movement, fights ventilator Titration Intervention Document 02/19/18 09:25 JUR (Rec: 02/19/18 09:26 [place] [facility] [place] Titration Intake Container Volume 80 Titration Dosing Titration Dose 30 IV Rate 15.513 Intake/Decrease Started Dobutamine HCl/Dextrose (Dobutamine/Dextrose 5% 500mg/250ml) 500 mg in 250 mls @ 5.171 mls/hr IV .Q24H PRN; Protocol; 2 MCG/KG/MIN PRN Reason: TITRATE PER PROTOCOL Last Titration: 02/19/18 13:35 Dose: 5 mcg/kg/min, 12.927 mls/hr Titration Intervention Document 02/19/18 13:35 JUR (Rec: 02/19/18 13:35 [place] [facility] [place] Titration Intake Titration Intake 10 Cumulative Intake 10 Cumulative Intake (Rx) 10 Waste Amount 0 Container Volume 90 Titration Dosing Titration Dose 5 IV Rate 12.927 Intake/Decrease Decreased Cumulative Dose 20 Piperacillin Sod/Tazobactam Sod (Zosyn 2.25 Gm In 0.9% 100 Ml) 2.25 gm in 100 mls @ 100 mls/hr IVPB Q8 MARYANN PRN Reason: Protocol Stop: 02/19/18 14:59 Last Admin: 02/19/18 09:24 Dose: 100 mls/hr eMAR Start Stop Document 02/19/18 09:24 JUR (Rec: 02/19/18 09:25 [place] [facility] [place] Intravenous Solution Start Date 02/19/18 Start Time 09:25 End Date 02/19/18 End time 10:25 Total Infusion Time 60 Calcium Gluconate 2,000 mg/ (Sodium Chloride) 120 mls @ 110 mls/hr IVPB ONCE ONE Stop: 02/19/18 10:57 Last Admin: 02/19/18 10:15 Dose: 110 mls/hr eMAR Start Stop Document 02/19/18 10:15 JUR (Rec: 02/19/18 10:15 [place]UR [facility] [place] Intravenous Solution Start Date 02/19/18 Start Time 10:15 End Date 02/19/18 End time 11:20 Total Infusion Time 65 Vancomycin HCl 1.5 gm/ Sodium (Chloride) 500 mls @ 167 mls/hr IVPB ONCE ONE PRN Reason: Protocol Stop: 02/19/18 14:57 Cefepime HCl (Maxipime 1gm) 1 gm in 100 mls @ 100 mls/hr IVPB Q24H MARYANN PRN Reason: Protocol Last Admin: 02/19/18 13:45 Dose: 100 mls/hr eMAR Start Stop Document 02/19/18 13:45 JUR (Rec: 02/19/18 13:45 [place]UR [facility] [place] Intravenous Solution Start Date 02/19/18 Start Time 13:45 End Date 02/19/18 End time 14:45 Total Infusion Time 60 Norepinephrine Bitartrate 8 mg (/ Sodium Chloride) 508 mls @ 19.05 mls/hr IV .Q24H PRN; Protocol; 5 MCG/MIN PRN Reason: TITRATE PER MD ORDER Insulin Human Regular (Humulin R High) 0 units SC Q4H MARYANN PRN Reason: Protocol Last Admin: 02/19/18 09:06 Dose: 10 units MAR Blood Glucose Document 02/19/18 09:06 JUR (Rec: 02/19/18 09:06 [place]UR [facility] [place] Blood Glucose Finger Stick Blood Glucose (70-120) 316 Subcutaneous Administrations Document 02/19/18 09:06 JUR (Rec: 02/19/18 09:06 [place]UR [facility] [place] [employer] Charges for Administration # of Subcutaneous Administrations 1 Pantoprazole Sodium (Protonix Inj) [address] [facility] Last Admin: 02/19/18 09:06 Dose: 40 mg IVP Administration Document 02/19/18 09:06 JUR (Rec: 02/19/18 09:06 [place]UR [facility] [place] [employer] [facility] Charges for Administration # of IVP Administrations 1 Sodium Bicarbonate (Sodium Bicarbonate 8.4% (50 Meq) Syringe) 50 meq IVP ONCE ONE Stop: 02/19/18 09:33 Last Admin: 02/19/18 10:15 Dose: Sodium Bicarbonate (Sodium Bicarbonate 8.4% (50 Meq) Syringe) 50 meq IVP ONCE ONE Stop: 02/19/18 10:01 Last Admin: 02/19/18 10:14 Dose: 50 meq IVP Administration Document 02/19/18 10:14 JUR (Rec: 02/19/18 10:14 [place]UR [facility] [place] [employer] [facility] Charges for Administration # of IVP Administrations 1 Sodium Polystyrene Sulfonate (Kayexalate Susp) 30 gm PO ONCE ONE Stop: 02/19/18 09:31 Last Admin: 02/19/18 09:39 Dose: 30 gm - Scribe Statement The provider has reviewed the documentation as recorded by the Tamara Shanks Provider Scribe Attestation: All medical record entries made by the Scribe were at my direction and personally dictated by me. I have reviewed the chart and agree that the record accurately reflects my personal performance of the history, physical exam, medical decision making, and the department course for this patient. I have also personally directed, reviewed, and agree with the discharge instructions and disposition. Disposition/Present on Arrival - Present on Arrival Any Indicators Present on Arrival: No History of DVT/PE: No History of Uncontrolled Diabetes: No Urinary Catheter: No History Surgical Site Infection Following: None - Disposition Have Diagnosis and Disposition been Completed?: Yes Diagnosis: Elevated troponin, Cardiogenic shock, Cardiac arrest Disposition: HOSPITALIZED Disposition Time: :25 Patient Problems: Current Active Problems Problem Status Onset Cardiogenic shock Acute Coronary artery disease Acute Diabetes Acute Diabetes Acute Diabetic foot infection Acute ESRD (end stage renal disease) on dialysis Acute Heart block Acute History of LA (myocardial infarction) Acute Hx of CABG Acute Pneumonia Acute Prophylactic measure Acute Shortness of breath Acute Amputation foot, unilat Chronic Condition: CRITICAL
[2018-02-18] MEDS ORDERED: Propofol 10 mg/ml 1,000 MG/100 ML VIAL ONE (23:56)
[2018-02-18] MEDS ORDERED: Propofol 10 mg/ml 1,000 MG/100 ML VIAL IV PRN (23:58)
[2018-02-19 00:21] LABS: BASO # 0.06 K/mm3 (0.0-2.0); BASO % 0.4 % (0.0-3.0); EOS % 0.3 % (1.5-5.0); GRAN # 9.47 (1.4-6.5); GRAN % 70.5 % (50.0-68.0); HEMOGLOBIN 12.4 g/dL (14.0-18.0); LYMPH # 2.7 (1.2-3.4); LYMPH % 20.3 % (22.0-35.0); MEAN CELL VOLUME 88.9 fl (80.0-105.0); MEAN CORPUSCULAR HEMOGLOBIN 28.6 pg (25.0-35.0); MEAN CORPUSCULAR HGB CONC 32.2 g/dl (31.0-37.0); MEAN PLATELET VOLUME 11.7 fl (7.0-11.0); MONO # 1.1 (0.1-0.6); MONO % 8.5 % (1.0-6.0); RBC 4.33 10^6/uL (3.5-6.1); RED CELL DISTRIBUTION WIDTH 15.3 % (11.5-14.5); WHITE BLOOD COUNT 13.4 10^3/ul (4.5-11.0)
[2018-02-19 00:27] LABS: INR 1.25 (0.93-1.08); PARTIAL THROMBOPLASTIN TIME 32.6 Seconds (25.1-36.5); PROTHROMBIN TIME 14.3 SECONDS (9.4-12.5)
[2018-02-19 00:46] LABS: ALB/GLOB RATIO 1.5 (1.1-1.8); CALCIUM 7.2 mg/dL (8.4-10.5); TROPONIN I 30.7 ng/mL
[2018-02-19 00:48] LABS: CK MB% 4.1 % (2.5-3.0)
[2018-02-19] MEDS: DOBUTamine 500mg/250ml D5W 500 MG/250 ML BAG IV PRN ×2 (01:32→01:50)
--- NOTE | 2018-02-19 02:20 | CP.PCM.HP ---
History of Present Illness - History of Present Illness History of Present Illness: Please note history as per chart as patient is intubated and sedated 57yo male PMHx ESRD on HD (Mon//Mon), DM type 2 on insulin, GA x3, CAD s/p 3 stents and CABG, HTN, peripheral neuropathy and gastroparesis BIBA for SOB. As per ER note patient was awake and talking at first but then became unresponsive and bradycardic with agonal respirations. Patient coded and ACLS protocol was initiated. ROSC was achieved s/p 2 Epi. Patient was then intubated. However he started to become bradycardic again and arrested and ACLS protocol was initiated again. ROSC was achieved s/p 1 Epi. Patient was stablized and transferred to MICU. PMH: as stated above PSurgHx: Coronary Stents x 3, CABG, Cholecystectomy, left hip surgery, Left knee surgery, Right foot partial amputation SocHx: Former ETOH abuser (~40 years abuse, quit 6-7 years ago); denies tobacco and illicit drug use; admits marijuana intermittently FamHx: Father: pancreatic ca; mother: denies PMD: Dr. Pink Heel Coverer: Dr. Garrett Present on Admission - Present on Admission Any Indicators Present on Admission: No Review of Systems - Review of Systems Systems not reviewed;Unavailable: Intubated Past Patient History - Infectious Disease Hx of Infectious Diseases: None - Tetanus Immunizations Tetanus Immunization: Unknown - Past Medical History & Family History Past Medical History?: Yes - Past Social History Smoking Status: Never Smoked - CARDIAC Hx Cardiac Disorders: Yes (CAD, GA x 3, CABG x 3) Hx Congestive Heart Failure: Yes Hx Hypertension: Yes - PULMONARY Hx Respiratory Disorders: Yes Other/Comment: PULMONARY EDEMA - NEUROLOGICAL Hx Neurological Disorder: Yes (NEUROPATHY) HX Cerebrovascular Accident: Yes Hx Dizziness: Yes (SYNCOPE) - HEENT Hx HEENT Problems: No (CONTACT LENSES) - RENAL Hx Chronic Kidney Disease: Yes Date of Last Dialysis Treatment: 01/11/18 Hx Renal Failure: Yes (HD ,,MON) Other/Comment: shunt rt arm - ENDOCRINE/METABOLIC Hx Endocrine Disorders: Yes Hx Diabetes Mellitus Type 2: Yes - HEMATOLOGICAL/ONCOLOGICAL Hx Blood Disorders: No - INTEGUMENTARY Hx Dermatological Problems: Yes Other/Comment: righty lower ext rash, pt stated "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" - MUSCULOSKELETAL/RHEUMATOLOGICAL Hx Musculoskeletal Disorders: Yes Hx Falls: Yes Hx Unsteady Gait: Yes (SPECIAL SHOES WORN) - GASTROINTESTINAL Hx Gastrointestinal Disorders: Yes (GASTROPARESIS) - GENITOURINARY/GYNECOLOGICAL Hx Genitourinary Disorders: Yes (URINARY RETENTION-OLIVERA) Hx Urinary Tract Infection: Yes - PSYCHIATRIC Hx Psychophysiologic Disorder: No Hx Emotional Abuse: No Hx Physical Abuse: No Hx Substance Use: Yes (MARIJUANA USE.DAILY.) - SURGICAL HISTORY Hx Cardiac Catheterization: Yes Hx Cholecystectomy: Yes Hx Coronary Stent: Yes (3) Other/Comment: shunt rt arm,L HIP SX,L KNEE SX, - ANESTHESIA Hx Anesthesia Reactions: No Meds Allergies/Adverse Reactions: Allergies Allergy/AdvReac Type Severity Reaction Status Date / Time shellfish derived Allergy ANAPHYLAXIS Verified 02/18/18 23:18 Seafood Allergy ANAPHYLAXIS Uncoded 02/18/18 23:18 Physical Exam - Head Exam Head Exam: ATRAUMATIC, NORMAL INSPECTION, NORMOCEPHALIC - Eye Exam Eye Exam: Normal appearance. absent: Conjunctival injection, Scleral icterus - ENT Exam Additional comments: ET and NG tube in place - Respiratory Exam Respiratory Exam: Rales, Rhonchi. absent: Accessory Muscle Use, Wheezes Additional comments: intubated on vent - Cardiovascular Exam Cardiovascular Exam: Bradycardia - GI/Abdominal Exam GI & Abdominal Exam: Normal Bowel Sounds, Soft. absent: Firm, Tenderness - Rectal Exam Rectal Exam: Deferred - Exam Additional comments: olivera in place - Extremities Exam Extremities exam: Negative for: pedal edema Additional comments: Parital right foot amputation - Neurological Exam Additional comments: sedated on propofol gtt - Skin Skin Exam: Dry, Intact Results - Vital Signs Recent Vital Signs: Last Vital Signs Temp Pulse 48 L 02/19/18 01:50 Resp 20 02/19/18 00:06 BP 90/56 L 02/19/18 01:50 Pulse Ox - Labs Result Diagrams: 02/19/18 00:08 02/19/18 00:08 Assessment & Plan - Assessment and Plan (Free Text) Assessment: 57yo male PMHx ESRD on HD (Mon//Mon), DM type 2 on insulin, GA x3, CAD s/p 3 stents and CABG, HTN, peripheral neuropathy and gastroparesis BIBA for SOB. Patient became agonal and unresponsive and had cardiac arrest x 2 requiring Epi x 3. Patient sedated and intubated and placed on vent support. L femoral triple lumen catheter placed emergently. Neuro -f/u head CT -f/u UDS -sedated on propofol gtt -maintain normothermia -aspiration precautions Cardio -s/p cardiac arrest x 2 -elevated proBNP 94291 -maintain MAP above 65 -Dobutamine gtt -hold all BP meds -f/u Echo -f/u EKG in AM -f/u lipid panel -Cardio Dr. Mcdermott consulted Respiratory -intubated on vent -f/u AM ABG -f/u AM CXR -Duoneb q6 -empiric abx GI -elevated LFTs and Tbili - f/u DBili -f/u acute hep panel -NPO -NGT in place -GI Dr. Barragan consulted Renal -hx of ESRD on HD -strict Is and Os - patient is oliguric -Nephro Dr. Garrett consulted ID -elevated WBC on admission -panculture and procalcitonin f/u -empiric abx Vanc and Zosyn -ID Dr. See consulted Endo -RISS low -Accucheck -maintain euglycemia -f/u HgbA1c MSK -no acute issues GI ppx: protonix 40mg ivp DVT ppx: SCDs; add heparin after head CT Diet: NPO Discussed with Dr. Lamont Villareal PGY2
--- NOTE | 2018-02-19 05:05 | PCM.PROC ---
Procedures Attestation:: I certify that I have explained the specified Operation(s) or Procedure(s), risks, benefits and reasonable alternatives to the Patient and/or other person responsible. The opportunity was given to ask questions and all questions answered - Central Line Placement Left Femoral Triple Lumen Catheter Aseptic technique was employed throughout the procedure: Hand Hygiene done prior to procedure, Full sterile barriers (mask, hair cover, sterile gown, sterile gloves), Full body sterile drape, Chloraprep Antiseptic: 2 minute prep for Femoral CVP Time Out Performed: Yes Pt. Placed on Pulse Ox Monitor: Yes Central Line Prep: Chlorhexidine-Alcohol Combination Local Anesthesia Used: Lidocaine 1% Ultrasound Used for Placement: Yes Central Line Lumen Inserted: triple Central Line Length: 20 cm Post Procedure: Sutured in Place, Good Blood Return, All Ports Aspirated, Flushed, Capped, Sterile Dressing Applied Secured by: Securement device Post procedure dressing: Clear vapor permeable, Chlorhexidine disc (Biopatch) Post Procedure X-Ray: No Patient Tolerated Procedure: No Complications Immediate Complications: None Additional Comments: Consent not obtained as procedure was emergent due to hypotension Procedure done under supervision of certified surgical tech/first assistant Dr. Calix and attending Dr. Muir
[2018-02-19] MEDS ORDERED: Insulin Lispro (humaLOG) LOW Coverage SC SCH (05:15)
[2018-02-19] MEDS ORDERED: Piperacillin/Tazobact 2.25gm 2.25 GM/100 ML BAG IVPB SCH (06:00)
[2018-02-19 07:22] LABS: BASO # 0.01 K/mm3 (0.0-2.0); BASO % 0.1 % (0.0-3.0); EOS % 0.1 % (1.5-5.0); GRAN # 7.92 (1.4-6.5); GRAN % 85.2 % (50.0-68.0); LYMPH # 0.6 (1.2-3.4); LYMPH % 6.1 % (22.0-35.0); MEAN CORPUSCULAR HEMOGLOBIN 28.1 pg (25.0-35.0); MEAN CORPUSCULAR HGB CONC 30.9 g/dl (31.0-37.0); MEAN PLATELET VOLUME 12.5 fl (7.0-11.0); MONO # 0.8 (0.1-0.6); MONO % 8.5 % (1.0-6.0); RBC 3.66 10^6/uL (3.5-6.1); RED CELL DISTRIBUTION WIDTH 15.5 % (11.5-14.5); WHITE BLOOD COUNT 9.3 10^3/ul (4.5-11.0)
[2018-02-19] MEDS: Albuterol-Ipratrop 3 mg / 0.5 (3 ml) UD IH SCH ×2 (07:26→13:10)
[2018-02-19 07:28] LABS: HEMOGLOBIN 10.3 g/dL (14.0-18.0)
[2018-02-19 08:05] LABS: BILIRUBIN,DIRECT 1.1 mg/dL (0.0-0.4); HDL CHOLESTEROL 24 mg/dL (29-60)
[2018-02-19 08:07] LABS: ALB/GLOB RATIO 1.4 (1.1-1.8); ALBUMIN 3.5 g/dL (3.0-4.8); CALCIUM 6.7 mg/dL (8.4-10.5); TROPONIN I 34.5 ng/mL
[2018-02-19 08:20] LABS: LDL CHOLESTEROL < 30 mg/dL (0-129)
[2018-02-19] MEDS ORDERED: Insulin Reg-HIGH-Coverage SC SCH (08:45)
[2018-02-19] MEDS ORDERED: Sodium Bicarbonate 8.4% 150 MEQ in Dextrose 5% In Water 1,000 ML IV SCH (08:45)
[2018-02-19 08:50] LABS: ARTERIAL BLOOD GAS HCO3 16.2 mmol/L (21-28); ARTERIAL BLOOD GAS O2 SAT 99.5 % (95-98); ARTERIAL BLOOD GAS PCO2 30 mm/Hg (35-45); ARTERIAL BLOOD GAS PH 7.34 (7.35-7.45); ARTERIAL BLOOD GAS TCO2 17.1 mmol.L (22-28)
[2018-02-19 08:50] LABS: ALB/GLOB RATIO 1.4 (1.1-1.8); ALBUMIN 3.4 g/dL (3.0-4.8); CALCIUM 6.9 mg/dL (8.4-10.5)
[2018-02-19 08:59] VITALS: TEMP 98.3
--- NOTE | 2018-02-19 09:04 | RAD ---
HISTORY: intubated on vent COMPARISON: 02/19/2018 at 09:00 a.m. FINDINGS: The endotracheal tube terminates 4.0 cm proximal to the stanford. The nasogastric tube terminates in the stomach. LUNGS: The lungs are well inflated. There is moderate pulmonary venous congestion PLEURA: No significant pleural effusion identified, no pneumothorax apparent. CARDIOVASCULAR: There is severe cardiomegaly. Status post CABG. OSSEOUS STRUCTURES: No significant abnormalities. VISUALIZED UPPER ABDOMEN: Normal. OTHER FINDINGS: None. IMPRESSION: Persistent severe cardiomegaly and moderate pulmonary venous congestion. No acute findings. Stable position of endotracheal and nasogastric tubes.
--- NOTE | 2018-02-19 09:16 | CARD ---
APPROVED REPORT EKG Measurement Heart [id number] <Conclusion> Normal sinus rhythm with sinus arrhythmia,Mobitz type ! block Right bundle branch block Left posterior fascicular block Bifascicular block Septal infarct, age undetermined Abnormal ECG
--- NOTE | 2018-02-19 09:22 | CP.PCM.CON ---
<Olivier Mcclure - Last Filed: 02/19/18 11:15> History of Present Illness - History of Present Illness History of Present Illness: PGY5 GI Fellow Consult Note Patient is a 57yo male with PMHx significant for ESRD on HD MWF, DM, HTN, CAD with previous MIx3 requiring PCI and CABG, CVA, documented history of gastroparesis who presented to the ED by EMS with shortness of breath. In the ED , patient had agonal breathing and subsequently suffered cardiac arrest twice requiring prolonged ACLS and endotracheal intubation. At present, patient is on mechanical ventilation and unable to participate in exam or history taking. Our service has been consulted for abnormal LFTs. 12 system ROS cannot be performed at this time given clinical condition PMHx: See HPI PSHx: CABG, PCI, right foot partial amputation FHx: Unable to obtain at this time Social: Prior marijuana use per EMR, no known EtOH or tobacco use Endo: 04/2017 - EGD - LA Class C esophagitis, hiatal hernia Past Patient History - Infectious Disease Hx of Infectious Diseases: None - Tetanus Immunizations Tetanus Immunization: Unknown - Past Medical History & Family History Past Medical History?: Yes - Past Social History Smoking Status: Never Smoked - CARDIAC Hx Cardiac Disorders: Yes (CAD, [place] x 3, CABG x 3) Hx Congestive Heart Failure: Yes Hx Hypertension: Yes - PULMONARY Hx Respiratory Disorders: Yes Other/Comment: PULMONARY EDEMA - NEUROLOGICAL Hx Neurological Disorder: Yes (NEUROPATHY) HX Cerebrovascular Accident: Yes Hx Dizziness: Yes (SYNCOPE) - HEENT Hx HEENT Problems: No (CONTACT LENSES) - RENAL Hx Chronic Kidney Disease: Yes Date of Last Dialysis Treatment: 01/11/18 Hx Renal Failure: Yes (HD TUES,THUR,SAT) Other/Comment: shunt rt arm - ENDOCRINE/METABOLIC Hx Endocrine Disorders: Yes Hx Diabetes Mellitus Type 2: Yes - HEMATOLOGICAL/ONCOLOGICAL Hx Blood Disorders: No - INTEGUMENTARY Hx Dermatological Problems: Yes Other/Comment: righty lower ext rash, pt stated "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" - MUSCULOSKELETAL/RHEUMATOLOGICAL Hx Musculoskeletal Disorders: Yes Hx Falls: Yes Hx Unsteady Gait: Yes (SPECIAL SHOES WORN) - GASTROINTESTINAL Hx Gastrointestinal Disorders: Yes (GASTROPARESIS) - GENITOURINARY/GYNECOLOGICAL Hx Genitourinary Disorders: Yes (URINARY RETENTION-OLIVERA) Hx Urinary Tract Infection: Yes - PSYCHIATRIC Hx Psychophysiologic Disorder: No Hx Emotional Abuse: No Hx Physical Abuse: No Hx Substance Use: Yes (MARIJUANA USE.DAILY.) - SURGICAL HISTORY Hx Cardiac Catheterization: Yes Hx Cholecystectomy: Yes Hx Coronary Stent: Yes (3) Other/Comment: shunt rt arm,L HIP SX,L KNEE SX, - ANESTHESIA Hx Anesthesia Reactions: No Meds Allergies/Adverse Reactions: Allergies Allergy/AdvReac Type Severity Reaction Status Date / Time shellfish derived Allergy ANAPHYLAXIS Verified 02/18/18 23:18 Seafood Allergy ANAPHYLAXIS Uncoded 02/18/18 23:18 - Medications Medications: Current Medications Albuterol/Ipratropium (Duoneb 3 Mg/0.5 Mg (3 Ml) Ud) 3 ml IH [id number] [facility] Last Admin: 02/19/18 07:26 Dose: 3 ml Aspirin (Aspirin Chewable) 81 mg PO DAILY [facility] Last Admin: 02/19/18 09:06 Dose: 81 mg Atorvastatin Calcium (Lipitor) 40 mg PO DIN [facility] Propofol (Diprivan) 1,000 mg in 100 mls @ 2.585 mls/hr IV .Q24H PRN; Protocol; 5 MCG/KG/MIN PRN Reason: TITRATE PER MD ORDER Last Admin: 02/18/18 23:56 Dose: 2.585 mls/hr Dobutamine HCl/Dextrose (Dobutamine/Dextrose 5% 500mg/250ml) 500 mg in 250 mls @ 5.171 mls/hr IV .Q24H PRN; Protocol; 2 MCG/KG/MIN PRN Reason: TITRATE PER PROTOCOL Last Admin: 02/19/18 01:50 Dose: 15.5 mls/hr Piperacillin Sod/Tazobactam Sod (Zosyn 2.25 Gm In 0.9% 100 Ml) 2.25 gm in 100 mls @ 100 mls/hr IVPB Q8 MARYANN PRN Reason: Protocol Stop: 02/19/18 14:59 Sodium Bicarbonate 150 meq/ (Dextrose) 1,150 mls @ 100 mls/hr IV [id number] [facility] Insulin Human Regular (Humulin R High) 0 units SC Q4H MARYANN PRN Reason: Protocol Last Admin: 02/19/18 09:06 Dose: 10 units Pantoprazole Sodium (Protonix Inj) 40 mg IVP DAILY [facility] Last Admin: 02/19/18 09:06 Dose: 40 mg Physical Exam - Constitutional Appears: Chronically Ill Additional comments: Intubated, restless - Eye Exam Eye Exam: PERRL - ENT Exam ENT Exam: Mucous Membranes Dry Additional comments: ETT in place - Respiratory Exam Respiratory Exam: Clear to Auscultation Bilateral. absent: Rales, Rhonchi, Wheezes - Cardiovascular Exam Cardiovascular Exam: Bradycardia, REGULAR RHYTHM, +S1, +S2 - GI/Abdominal Exam GI & Abdominal Exam: Normal Bowel Sounds, Soft. absent: Distended, Firm, Guarding, Hernia, Organomegaly, Rigid, Tenderness - Extremities Exam Extremities exam: Negative for: pedal edema Additional comments: right foot s/p amputation of all digits - Neurological Exam Additional comments: intubated, sedated - Psychiatric Exam Psychiatric exam: Normal Affect, Normal Mood - Skin Skin Exam: Dry, Warm Results - Vital Signs Recent Vital Signs: Last Vital Signs Temp 98.3 F 02/19/18 06:10 Pulse 59 L 02/19/18 08:30 Resp 18 02/19/18 07:30 BP 98/63 L 02/19/18 08:30 Pulse Ox 100 02/19/18 08:30 - Labs Result Diagrams: 02/19/18 06:00 02/19/18 08:15 Labs: Laboratory Results - last 24 hr 02/19/18 02/19/18 02/19/18 06:00 06:00 06:00 WBC 9.3 D RBC 3.66 Hgb 10.3 L D Hct 33.3 L MCV 91.0 MCH 28.1 MCHC 30.9 L RDW 15.5 H Plt Count 164 MPV 12.5 H Gran % 85.2 H Lymph % (Auto) 6.1 L Gage % (Auto) 8.5 H Eos % (Auto) 0.1 L Baso % (Auto) 0.1 Gran # 7.92 H Lymph # (Auto) 0.6 L Gage # (Auto) 0.8 H Eos # (Auto) 0.0 Baso # (Auto) 0.01 pCO2 pO2 HCO3 ABG pH ABG Total CO2 ABG O2 Saturation ABG Base Excess ABG Potassium Glucose Lactate FiO2 Sodium 127 L Potassium 5.2 H Chloride 90 L Carbon Dioxide 11 L Anion Gap 31 H BUN 54 H Creatinine 8.8 H* Est GFR ( Amer) 8 Est GFR (Non-Af Amer) 6 POC Glucose (mg/dL) Random Glucose 544 H* D Calcium 6.7 L* Phosphorus 11.0 H Magnesium 1.7 Total Bilirubin 1.1 Direct Bilirubin 1.1 H AST 182 H ALT 122 H Alkaline Phosphatase 57 Troponin I 34.50 H* Total Protein 5.9 Albumin 3.5 Globulin 2.4 Albumin/Globulin Ratio 1.4 Triglycerides 119 Cholesterol 65 L LDL Cholesterol Direct < 30 HDL Cholesterol 24 L Arterial Blood Potassium 02/19/18 02/19/18 02/19/18 06:10 08:09 08:15 WBC RBC Hgb Hct MCV MCH MCHC RDW Plt Count MPV Gran % Lymph % (Auto) Gage % (Auto) Eos % (Auto) Baso % (Auto) Gran # Lymph # (Auto) Gage # (Auto) Eos # (Auto) Baso # (Auto) pCO2 pO2 HCO3 ABG pH ABG Total CO2 ABG O2 Saturation ABG Base Excess ABG Potassium Glucose Lactate FiO2 Sodium 132 Potassium 5.7 H* Chloride 94 L Carbon Dioxide 18 L Anion Gap 26 H BUN 60 H Creatinine 10.7 H* D Est GFR ( Amer) 6 Est GFR (Non-Af Amer) 5 POC Glucose (mg/dL) 274 H 316 H Random Glucose 273 H Calcium 6.9 L* Phosphorus Magnesium Total Bilirubin 0.5 Direct Bilirubin AST 243 H D ALT 131 H Alkaline Phosphatase 64 Troponin I Total Protein 5.9 Albumin 3.4 Globulin 2.5 Albumin/Globulin Ratio 1.4 Triglycerides Cholesterol LDL Cholesterol Direct HDL Cholesterol Arterial Blood Potassium 02/19/18 08:40 WBC RBC Hgb Hct MCV MCH MCHC RDW Plt Count MPV Gran % Lymph % (Auto) Gage % (Auto) Eos % (Auto) Baso % (Auto) Gran # Lymph # (Auto) Gage # (Auto) Eos # (Auto) Baso # (Auto) pCO2 30 L pO2 270.0 H HCO3 16.2 L ABG pH 7.34 L ABG Total CO2 17.1 L ABG O2 Saturation 99.5 H ABG Base Excess -8.3 L ABG Potassium 5.5 H Glucose 279 H Lactate 4.2 H* FiO2 100.0 Sodium 127.0 L Potassium Chloride 97.0 L Carbon Dioxide Anion Gap BUN Creatinine Est GFR ( Amer) Est GFR (Non-Af Amer) POC Glucose (mg/dL) Random Glucose Calcium Phosphorus Magnesium Total Bilirubin Direct Bilirubin AST ALT Alkaline Phosphatase Troponin I Total Protein Albumin Globulin Albumin/Globulin Ratio Triglycerides Cholesterol LDL Cholesterol Direct HDL Cholesterol Arterial Blood Potassium 5.5 H Assessment & Plan - Assessment and Plan (Free Text) Assessment: Patient is a 57yo male with PMHx significant for ESRD on HD MWF, DM, HTN, CAD with previous MIx3 requiring PCI and CABG, CVA, documented history of gastroparesis who presented to the ED by EMS with shortness of breath -Cardiac arrest x2 s/p ACLS and ET intubation -Elevated LFTs suspect ischmic hepatopathy s/p above -ESRD on HD MWF -CAD s/p CABG/PCI Plan: -S/P cardiac arrest and ACLS x2 -Patient likely suffering from ischemic hepatopathy given profound hypoperfusion of vital organs during arrest -Monitor clinical course and trend LFTs -Consider abdominal U/S -Cardiac and pulmonary stabilization in ICU -No further recommendations at this time - Date & Time Date: 02/19/18 Time: 07:25 <Gonzalo Becerril - Last Filed: 02/19/18 11:22> Meds - Medications Medications: Current Medications Albuterol/Ipratropium (Duoneb 3 Mg/0.5 Mg (3 Ml) Ud) 3 ml IH [id number] [facility] Last Admin: 02/19/18 07:26 Dose: 3 ml Aspirin (Aspirin Chewable) 81 mg PO DAILY [facility] Last Admin: 02/19/18 09:06 Dose: 81 mg Atorvastatin Calcium (Lipitor) 40 mg PO DIN [facility] Propofol (Diprivan) 1,000 mg in 100 mls @ 2.585 mls/hr IV .Q24H PRN; Protocol; 5 MCG/KG/MIN PRN Reason: TITRATE PER MD ORDER Last Titration: 02/19/18 09:25 Dose: 30 mcg/kg/min, 15.513 mls/hr Dobutamine HCl/Dextrose (Dobutamine/Dextrose 5% 500mg/250ml) 500 mg in 250 mls @ 5.171 mls/hr IV .Q24H PRN; Protocol; 2 MCG/KG/MIN PRN Reason: TITRATE PER PROTOCOL Last Titration: 02/19/18 09:22 Dose: 10 mcg/kg/min, 25.855 mls/hr Piperacillin Sod/Tazobactam Sod (Zosyn 2.25 Gm In 0.9% 100 Ml) 2.25 gm in 100 mls @ 100 mls/hr IVPB Q8 MARYANN PRN Reason: Protocol Stop: 02/19/18 14:59 Last Admin: 02/19/18 09:24 Dose: 100 mls/hr Insulin Human Regular (Humulin R High) 0 units SC Q4H MARYANN PRN Reason: Protocol Last Admin: 02/19/18 09:06 Dose: 10 units Pantoprazole Sodium (Protonix Inj) 40 mg IVP DAILY [facility] Last Admin: 02/19/18 09:06 Dose: 40 mg Results - Vital Signs Recent Vital Signs: Last Vital Signs Temp 98.3 F 02/19/18 06:10 Pulse 61 02/19/18 10:50 Resp 22 02/19/18 10:07 BP 91/52 L 02/19/18 10:45 Pulse Ox 100 02/19/18 10:50 - Labs Result Diagrams: 02/19/18 06:00 02/19/18 08:15 Labs: Laboratory Results - last 24 hr 02/19/18 02/19/18 02/19/18 06:00 06:00 06:00 WBC 9.3 D RBC 3.66 Hgb 10.3 L D Hct 33.3 L MCV 91.0 MCH 28.1 MCHC 30.9 L RDW 15.5 H Plt Count 164 MPV 12.5 H Gran % 85.2 H Lymph % (Auto) 6.1 L Gage % (Auto) 8.5 H Eos % (Auto) 0.1 L Baso % (Auto) 0.1 Gran # 7.92 H Lymph # (Auto) 0.6 L Gage # (Auto) 0.8 H Eos # (Auto) 0.0 Baso # (Auto) 0.01 pCO2 pO2 HCO3 ABG pH ABG Total CO2 ABG O2 Saturation ABG Base Excess ABG Potassium Glucose Lactate FiO2 Sodium 127 L Potassium 5.2 H Chloride 90 L Carbon Dioxide 11 L Anion Gap 31 H BUN 54 H Creatinine 8.8 H* Est GFR ( Amer) 8 Est GFR (Non-Af Amer) 6 POC Glucose (mg/dL) Random Glucose 544 H* D Calcium 6.7 L* Phosphorus 11.0 H Magnesium 1.7 Total Bilirubin 1.1 Direct Bilirubin 1.1 H AST 182 H ALT 122 H Alkaline Phosphatase 57 Troponin I 34.50 H* Total Protein 5.9 Albumin 3.5 Globulin 2.4 Albumin/Globulin Ratio 1.4 Triglycerides 119 Cholesterol 65 L LDL Cholesterol Direct < 30 HDL Cholesterol 24 L Arterial Blood Potassium 02/19/18 02/19/18 02/19/18 06:10 08:09 08:15 WBC RBC Hgb Hct MCV MCH MCHC RDW Plt Count MPV Gran % Lymph % (Auto) Gage % (Auto) Eos % (Auto) Baso % (Auto) Gran # Lymph # (Auto) Gage # (Auto) Eos # (Auto) Baso # (Auto) pCO2 pO2 HCO3 ABG pH ABG Total CO2 ABG O2 Saturation ABG Base Excess ABG Potassium Glucose Lactate FiO2 Sodium 132 Potassium 5.7 H* Chloride 94 L Carbon Dioxide 18 L Anion Gap 26 H BUN 60 H Creatinine 10.7 H* D Est GFR ( Amer) 6 Est GFR (Non-Af Amer) 5 POC Glucose (mg/dL) 274 H 316 H Random Glucose 273 H Calcium 6.9 L* Phosphorus Magnesium Total Bilirubin 0.5 Direct Bilirubin AST 243 H D ALT 131 H Alkaline Phosphatase 64 Troponin I Total Protein 5.9 Albumin 3.4 Globulin 2.5 Albumin/Globulin Ratio 1.4 Triglycerides Cholesterol LDL Cholesterol Direct HDL Cholesterol Arterial Blood Potassium 02/19/18 08:40 WBC RBC Hgb Hct MCV MCH MCHC RDW Plt Count MPV Gran % Lymph % (Auto) Gage % (Auto) Eos % (Auto) Baso % (Auto) Gran # Lymph # (Auto) Gage # (Auto) Eos # (Auto) Baso # (Auto) pCO2 30 L pO2 270.0 H HCO3 16.2 L ABG pH 7.34 L ABG Total CO2 17.1 L ABG O2 Saturation 99.5 H ABG Base Excess -8.3 L ABG Potassium 5.5 H Glucose 279 H Lactate 4.2 H* FiO2 100.0 Sodium 127.0 L Potassium Chloride 97.0 L Carbon Dioxide Anion Gap BUN Creatinine Est GFR ( Amer) Est GFR (Non-Af Amer) POC Glucose (mg/dL) Random Glucose Calcium Phosphorus Magnesium Total Bilirubin Direct Bilirubin AST ALT Alkaline Phosphatase Troponin I Total Protein Albumin Globulin Albumin/Globulin Ratio Triglycerides Cholesterol LDL Cholesterol Direct HDL Cholesterol Arterial Blood Potassium 5.5 H Attending/Attestation - Attestation I have personally seen and examined this patient.: Yes I have fully participated in the care of the patient.: Yes I have reviewed all pertinent clinical information: Yes Notes (Text): 02/19/18 11:17 Patient seen and examined at bedside thiS AM. This is a 57 year old male with PMHx significant for ESRD on HD MWF, DM, HTN, CAD with previous MIx3 requiring PCI and CABG, CVA, documented history of gastroparesis who presented to the ED by EMS with shortness of breath and cardiac arrest x 2 s/p ACLS and ET intubation. GI consulted for elevated LFT. Likely due to ischemia and hypotension transminases leak. Will send hepatitis and autoimmune serologies to rule out other organic causes. Cardiac and pulmonary stabilization of utmost importance. Trend LFt. Rest of management as per MICU
[2018-02-19] MEDS ORDERED: Sod Polystyrene Sulf 15 gm/60 ml Susp PO ONE (09:30)
[2018-02-19] MEDS ORDERED: Sodium Bicarbonate (8.4%) 50 Meq Syringe IVP ONE ×2 (09:32→10:00)
[2018-02-19] MEDS ORDERED: Vancomycin 1gm in NS 250ml 1 GM/250 ML BAG IVPB SCH (10:00)
--- NOTE | 2018-02-19 10:03 | RAD ---
HISTORY: post intubation COMPARISON: 01/11/2018. FINDINGS: The endotracheal tube terminates 2.2 cm proximal to the [place]. The nasogastric tube terminates in the stomach. LUNGS: The lungs are well inflated and clear. PLEURA: No significant pleural effusion identified, no pneumothorax apparent. CARDIOVASCULAR: There is severe cardiomegaly. Status post CABG with OSSEOUS STRUCTURES: No significant abnormalities. VISUALIZED UPPER ABDOMEN: Normal. OTHER FINDINGS: None. IMPRESSION: Endotracheal tube terminates 2.2 cm proximal to the [place]. The nasogastric tube terminates in the stomach. Severe cardiomegaly. No acute findings.
[2018-02-19 10:58] VITALS: RESP 22
[2018-02-19] MEDS ORDERED: Iodixanol 320 MG/ML 200 ML BOTTLE IV ONE (11:30)
[2018-02-19] MEDS ORDERED: Lidocaine 2% Inj (20ml) ONE (11:31)
[2018-02-19] MEDS ORDERED: DiphenhydrAMINE 50 mg/ml Inj ONE (11:56)
[2018-02-19] MEDS ORDERED: Famotidine 20mg/50ml 20 MG/50 ML BAG IVPB ONE (11:56)
[2018-02-19] MEDS ORDERED: Vancomycin 1.5 GM in Sodium Chloride 0.9% 500 ML IVPB ONE (11:58)
[2018-02-19] MEDS ORDERED: Cefepime 1gm in NS 100ml 1 GM/100 ML BAG IVPB SCH (12:00)
--- NOTE | 2018-02-19 12:05 | CP.PCM.CON ---
History of Present Illness - History of Present Illness History of Present Illness: 57 year old male with PMH of HTN, DM, CAD S/P CABG x 3 vessels, history of ESBL- producing Klebsiella infection in 2013, history of diabetic foot infections S/P amputation of the 5 digits of his right foot, history of Pseudomonas bacteremia probably from dialysis catheter S/P removal came in to the ED because of shortness of breath. He missed his dialysis session on Monday. He was still apparently able to talk to the ED staff. HPI taken from ED records and from ICU staff. He then had severe respiratory distress and had cardiorespiratory arrest and was resuscitated, put on the ventilator and sent the ICU for further management. He was initially found to have leukocytosis and Infectious Diseases consult is requested to further evaluate and manage. Review of Systems - Review of Systems Systems not reviewed;Unavailable: Intubated Past Patient History - Infectious Disease Hx of Infectious Diseases: None - Tetanus Immunizations Tetanus Immunization: Unknown - Past Medical History & Family History Past Medical History?: Yes - Past Social History Smoking Status: Never Smoked - CARDIAC Hx Cardiac Disorders: Yes (CAD, [place] x 3, CABG x 3) Hx Congestive Heart Failure: Yes Hx Hypertension: Yes - PULMONARY Hx Respiratory Disorders: Yes Other/Comment: PULMONARY EDEMA - NEUROLOGICAL Hx Neurological Disorder: Yes (NEUROPATHY) HX Cerebrovascular Accident: Yes Hx Dizziness: Yes (SYNCOPE) - HEENT Hx HEENT Problems: No (CONTACT LENSES) - RENAL Hx Chronic Kidney Disease: Yes Date of Last Dialysis Treatment: 01/11/18 Hx Renal Failure: Yes (HD TUES,THUR,SAT) Other/Comment: shunt rt arm - ENDOCRINE/METABOLIC Hx Endocrine Disorders: Yes Hx Diabetes Mellitus Type 2: Yes - HEMATOLOGICAL/ONCOLOGICAL Hx Blood Disorders: No - INTEGUMENTARY Hx Dermatological Problems: Yes Other/Comment: righty lower ext rash, pt stated "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" - MUSCULOSKELETAL/RHEUMATOLOGICAL Hx Musculoskeletal Disorders: Yes Hx Falls: Yes Hx Unsteady Gait: Yes (SPECIAL SHOES WORN) - GASTROINTESTINAL Hx Gastrointestinal Disorders: Yes (GASTROPARESIS) - GENITOURINARY/GYNECOLOGICAL Hx Genitourinary Disorders: Yes (URINARY RETENTION-OLIVERA) Hx Urinary Tract Infection: Yes - PSYCHIATRIC Hx Psychophysiologic Disorder: No Hx Emotional Abuse: No Hx Physical Abuse: No Hx Substance Use: Yes (MARIJUANA USE.DAILY.) - SURGICAL HISTORY Hx Cardiac Catheterization: Yes Hx Cholecystectomy: Yes Hx Coronary Stent: Yes (3) Other/Comment: shunt rt arm,L HIP SX,L KNEE SX, - ANESTHESIA Hx Anesthesia Reactions: No Meds Allergies/Adverse Reactions: Allergies Allergy/AdvReac Type Severity Reaction Status Date / Time shellfish derived Allergy ANAPHYLAXIS Verified 02/18/18 23:18 Seafood Allergy ANAPHYLAXIS Uncoded 02/18/18 23:18 - Medications Medications: Current Medications Albuterol/Ipratropium (Duoneb 3 Mg/0.5 Mg (3 Ml) Ud) 3 ml IH [id number] [facility] Aspirin (Aspirin Chewable) 81 mg PO DAILY [facility] Atorvastatin Calcium (Lipitor) 40 mg PO DIN [facility] Propofol (Diprivan) 1,000 mg in 100 mls @ 2.585 mls/hr IV .Q24H PRN; Protocol; 5 MCG/KG/MIN PRN Reason: TITRATE PER MD ORDER Last Admin: 02/18/18 23:56 Dose: 2.585 mls/hr Dobutamine HCl/Dextrose (Dobutamine/Dextrose 5% 500mg/250ml) 500 mg in 250 mls @ 5.171 mls/hr IV .Q24H PRN; Protocol; 2 MCG/KG/MIN PRN Reason: TITRATE PER PROTOCOL Last Admin: 02/19/18 01:50 Dose: 15.5 mls/hr Vancomycin HCl (Vancomycin 1gm) 1 gm in 250 mls @ 167 mls/hr IVPB DAILY [facility] PRN Reason: Protocol Piperacillin Sod/Tazobactam Sod (Zosyn 2.25 Gm In 0.9% 100 Ml) 2.25 gm in 100 mls @ 100 mls/hr IVPB Q8 MARYANN PRN Reason: Protocol Stop: 02/19/18 14:59 Insulin Human Lispro (Humalog Low) 0 units SC Q6H MARYANN PRN Reason: Protocol Pantoprazole Sodium (Protonix Inj) 40 mg IVP DAILY [facility] Physical Exam - Constitutional Appears: Other (intubated, sedated) - Head Exam Head Exam: NORMAL INSPECTION - ENT Exam Additional comments: ET tube in place - Respiratory Exam Respiratory Exam: Decreased Breath Sounds - Cardiovascular Exam Cardiovascular Exam: +S1, +S2 - GI/Abdominal Exam GI & Abdominal Exam: Soft. absent: Tenderness - Extremities Exam Additional comments: left groin TLC in place, site intact and clean Results - Vital Signs Recent Vital Signs: Last Vital Signs Temp 98.8 F 02/19/18 01:25 Pulse 53 L 02/19/18 06:00 Resp 20 02/19/18 01:55 BP 105/56 L 02/19/18 06:00 Pulse Ox 100 02/19/18 06:00 - Labs Result Diagrams: 02/19/18 06:00 02/19/18 08:15 Labs: Laboratory Results - last 24 hr 02/19/18 06:10 POC Glucose (mg/dL) 274 H Assessment & Plan - Assessment and Plan (Free Text) Plan: Assessment systemic inflammatory response syndrome with ventilator-dependent respiratory failure, consider due to stress reaction from cardiorespiratory arrest ( consider metabolic in origin and acute decompensated heart failure), R/O sepsis history of persistent Pseudomonas bacteremia, with lung cavitary lesions, with septic emboli (also growing Pseudomonas), probably Permacath infection with no evidence of endocarditis on ESTER S/P removal of Permacath and replacement with temporary dialysis catheter (05/18/2017) - history of sepsis due to Klebsiella bacteremia likely HD catheter infection S/P removal of tunneled Catheter history of C. diff. associated diarrhea DM HTN ESRD on HD CAD S/P CABG history of CVA history of rhabdomyolysis Plan gave a dose of IV Vancomycin and started Cefepime pending blood, urine cx, PCT; reviewed CXR which does not show infiltrates follow up Cardiology recommendations - Troponin elevated but it was taken after CPR was done will monitor clinically overall prognosis is poor
[2018-02-19] MEDS ORDERED: Iodixanol 320 MG/ML 100 ML BOTTLE IV ONE (12:26)
[2018-02-19] MEDS ORDERED: Phenylephrine 10 mg/ml Inj ONE (12:28)
--- NOTE | 2018-02-19 12:33 | CP.PCM.CON ---
History of Present Illness - History of Present Illness History of Present Illness: Nephrology Consultation Note: Assessment: critical NSTEMI, cardiac arrest, cardiogenic shock lactic acidosis, hyperkalemia hx of esophageal ulceration, gastroparesis Diabetic chronic Kidney Disease (E11.22) Hypertensive Chronic Kidney Disease (I12.0) End stage renal disease (N18.6) dependence on hemodialysis (Z99.2) (TTS) Anemia (D64.9), Hyperphosphatemia (E83.39), Secondary Hyperparathyroidism (E21.1 ), HTN (I12.0) CAD s/p CABG chronic urine retention Plan: pt going for cardiac cath. should plan for transfer to [facility] (for dialysis) once stable hemodynamically and cardiac orellana plan for HD once stable hemodynamically, today and/or tomorrow 1 amp of IV bicarb and IV calcium gluconate given in ICU. defer bicar drip to avoid fluid overload. continue with Nephrovite 1 tab/day. as outpt getting weekly aranesp, last hb 10.3 maintain hemodynamic stable. Glycemic control, Dialysis consistent diet will start phos binders once on diet, pt non-compliant to binders as outpt Further work up/management as per primary team Dose meds/antibiotics for ESRD status. Avoid fleets enema/magnesium based laxatives. Thanks for allowing me to participate in care of your patient. Will follow patient with you. Please call if any Qs. d/w icu team. Dr Sancho Garrett Office: [phone] CC; unable to obtain reason for consult: ESRD HPI: Pt is a 57 y/o M with hx of ESRD on hemodialysis (TTS) via permacath, last dialysis sat, chronic anemia, hyperphosphatemia, secondary hyperparathyroidism, Diabetes Mellitus, hypertension, urine retention s/p martinez , hx of permacath related infection with psuedomonas and septic embolic, CAD s/ p CABG, esophageal ulceration, gastroparesis came with shortness of breath and went in to cardiac arrest. he is intubated currently. refuses HD for 4 hrs as ordered, regularly cuts treatment time to 3 hrs only, counselled and educated multiple times. often misses HD Physical Examination: General Appearance: pt intubated orally and sedated. ill appearing Vitals reviewed and noted as below Head; Atraumatic, normocephalic ENT: orally intubated EYES: Pupils are equal, round and reactive to light accommodation. Eye muscles and extraocular movement intact. Sclera is anicteric. Neck; supple no lymphadenopathy, no thyromegaly or bruit Lungs: Normal respiratory rate/effort. Breath sounds bilateral equal and with basal crackles Heart: Normal rate. s1s2 normal. No rub or gallop. Extremities: no edema. No varicose veins. 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 Normal turgor. No rash. Palpitation: Normal elasticity for age Abdomen: Abdomen is soft. Bowel sounds +. There is no abdominal tenderness, no guarding/rigidity or organomegaly Psych: unable MSK: no joint tenderness or swelling. Digits and nails normal, no deformity. had toe amputations : kidney or bladder not palpable. has chronic martinez Access: patent AVF Labs/imaging reviewed. Past medical history, past surgical history, family history, social history, allergy reviewed and noted as below Family Hx: no hx of CKD. Non contributory Past Patient History - Infectious Disease Hx of Infectious Diseases: None - Tetanus Immunizations Tetanus Immunization: Unknown - Past Medical History & Family History Past Medical History?: Yes - Past Social History Smoking Status: Never Smoked - CARDIAC Hx Cardiac Disorders: Yes (CAD, MT x 3, CABG x 3) Hx Congestive Heart Failure: Yes Hx Hypertension: Yes - PULMONARY Hx Respiratory Disorders: Yes Other/Comment: PULMONARY EDEMA - NEUROLOGICAL Hx Neurological Disorder: Yes (NEUROPATHY) HX Cerebrovascular Accident: Yes Hx Dizziness: Yes (SYNCOPE) - HEENT Hx HEENT Problems: No (CONTACT LENSES) - RENAL Hx Chronic Kidney Disease: Yes Date of Last Dialysis Treatment: 01/11/18 Hx Renal Failure: Yes (HD TUES,THUR,SAT) Other/Comment: shunt rt arm - ENDOCRINE/METABOLIC Hx Endocrine Disorders: Yes Hx Diabetes Mellitus Type 2: Yes - HEMATOLOGICAL/ONCOLOGICAL Hx Blood Disorders: No - INTEGUMENTARY Hx Dermatological Problems: Yes Other/Comment: righty lower ext rash, pt stated "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" - MUSCULOSKELETAL/RHEUMATOLOGICAL Hx Musculoskeletal Disorders: Yes Hx Falls: Yes Hx Unsteady Gait: Yes (SPECIAL SHOES WORN) - GASTROINTESTINAL Hx Gastrointestinal Disorders: Yes (GASTROPARESIS) - GENITOURINARY/GYNECOLOGICAL Hx Genitourinary Disorders: Yes (URINARY RETENTION-MARTINEZ) Hx Urinary Tract Infection: Yes - PSYCHIATRIC Hx Psychophysiologic Disorder: No Hx Emotional Abuse: No Hx Physical Abuse: No Hx Substance Use: Yes (MARIJUANA USE.DAILY.) - SURGICAL HISTORY Hx Cardiac Catheterization: Yes Hx Cholecystectomy: Yes Hx Coronary Stent: Yes (3) Other/Comment: shunt rt arm,L HIP SX,L KNEE SX, - ANESTHESIA Hx Anesthesia Reactions: No Meds Allergies/Adverse Reactions: Allergies Allergy/AdvReac Type Severity Reaction Status Date / Time shellfish derived Allergy ANAPHYLAXIS Verified 02/18/18 23:18 Seafood Allergy ANAPHYLAXIS Uncoded 02/18/18 23:18 - Medications Medications: Current Medications Albuterol/Ipratropium (Duoneb 3 Mg/0.5 Mg (3 Ml) Ud) 3 ml IH [id number] [facility] Last Admin: 02/19/18 07:26 Dose: 3 ml Aspirin (Aspirin Chewable) 81 mg PO DAILY [facility] Last Admin: 02/19/18 09:06 Dose: 81 mg Atorvastatin Calcium (Lipitor) 40 mg PO DIN [facility] Propofol (Diprivan) 1,000 mg in 100 mls @ 2.585 mls/hr IV .Q24H PRN; Protocol; 5 MCG/KG/MIN PRN Reason: TITRATE PER MD ORDER Last Titration: 02/19/18 09:25 Dose: 30 mcg/kg/min, 15.513 mls/hr Dobutamine HCl/Dextrose (Dobutamine/Dextrose 5% 500mg/250ml) 500 mg in 250 mls @ 5.171 mls/hr IV .Q24H PRN; Protocol; 2 MCG/KG/MIN PRN Reason: TITRATE PER PROTOCOL Last Titration: 02/19/18 09:22 Dose: 10 mcg/kg/min, 25.855 mls/hr Vancomycin HCl 1.5 gm/ Sodium (Chloride) 500 mls @ 167 mls/hr IVPB ONCE ONE PRN Reason: Protocol Stop: 02/19/18 14:57 Cefepime HCl (Maxipime 1gm) 1 gm in 100 mls @ 100 mls/hr IVPB Q24H MARYANN PRN Reason: Protocol Insulin Human Regular (Humulin R High) 0 units SC Q4H MARYANN PRN Reason: Protocol Last Admin: 02/19/18 09:06 Dose: 10 units Pantoprazole Sodium (Protonix Inj) 40 mg IVP DAILY MARYANN Last Admin: 02/19/18 09:06 Dose: 40 mg Results - Vital Signs Recent Vital Signs: Last Vital Signs Temp 98.3 F 02/19/18 06:10 Pulse 61 02/19/18 10:50 Resp 22 02/19/18 10:07 BP 91/52 L 02/19/18 10:45 Pulse Ox 100 02/19/18 10:50 - Labs Result Diagrams: 02/19/18 06:00 02/19/18 08:15 Labs: Laboratory Results - last 24 hr 02/19/18 02/19/18 02/19/18 06:00 06:00 06:00 WBC 9.3 D RBC 3.66 Hgb 10.3 L D Hct 33.3 L MCV 91.0 MCH 28.1 MCHC 30.9 L RDW 15.5 H Plt Count 164 MPV 12.5 H Gran % 85.2 H Lymph % (Auto) 6.1 L [place] % (Auto) 8.5 H Eos % (Auto) 0.1 L Baso % (Auto) 0.1 Gran # 7.92 H Lymph # (Auto) 0.6 L [place] # (Auto) 0.8 H Eos # (Auto) 0.0 Baso # (Auto) 0.01 pCO2 pO2 HCO3 ABG pH ABG Total CO2 ABG O2 Saturation ABG Base Excess ABG Potassium Glucose Lactate FiO2 Sodium 127 L Potassium 5.2 H Chloride 90 L Carbon Dioxide 11 L Anion Gap 31 H BUN 54 H Creatinine 8.8 H* Est GFR ( Amer) 8 Est GFR (Non-Af Amer) 6 POC Glucose (mg/dL) Random Glucose 544 H* D Hemoglobin A1c 7.6 H Calcium 6.7 L* Phosphorus 11.0 H Magnesium 1.7 Total Bilirubin 1.1 Direct Bilirubin AST 182 H ALT 122 H Alkaline Phosphatase 57 Troponin I 34.50 H* Total Protein 5.9 Albumin 3.5 Globulin 2.4 Albumin/Globulin Ratio 1.4 Triglycerides Cholesterol LDL Cholesterol Direct HDL Cholesterol Arterial Blood Potassium 02/19/18 02/19/18 02/19/18 06:00 06:10 08:09 WBC RBC Hgb Hct MCV MCH MCHC RDW Plt Count MPV Gran % Lymph % (Auto) [place] % (Auto) Eos % (Auto) Baso % (Auto) Gran # Lymph # (Auto) [place] # (Auto) Eos # (Auto) Baso # (Auto) pCO2 pO2 HCO3 ABG pH ABG Total CO2 ABG O2 Saturation ABG Base Excess ABG Potassium Glucose Lactate FiO2 Sodium Potassium Chloride Carbon Dioxide Anion Gap BUN Creatinine Est GFR ( Amer) Est GFR (Non-Af Amer) POC Glucose (mg/dL) 274 H 316 H Random Glucose Hemoglobin A1c Calcium Phosphorus Magnesium Total Bilirubin Direct Bilirubin 1.1 H AST ALT Alkaline Phosphatase Troponin I Total Protein Albumin Globulin Albumin/Globulin Ratio Triglycerides 119 Cholesterol 65 L LDL Cholesterol Direct < 30 HDL Cholesterol 24 L Arterial Blood Potassium 02/19/18 02/19/18 08:15 08:40 WBC RBC Hgb Hct MCV MCH MCHC RDW Plt Count MPV Gran % Lymph % (Auto) [place] % (Auto) Eos % (Auto) Baso % (Auto) Gran # Lymph # (Auto) [place] # (Auto) Eos # (Auto) Baso # (Auto) pCO2 30 L pO2 270.0 H HCO3 16.2 L ABG pH 7.34 L ABG Total CO2 17.1 L ABG O2 Saturation 99.5 H ABG Base Excess -8.3 L ABG Potassium 5.5 H Glucose 279 H Lactate 4.2 H* FiO2 100.0 Sodium 132 127.0 L Potassium 5.7 H* Chloride 94 L 97.0 L Carbon Dioxide 18 L Anion Gap 26 H BUN 60 H Creatinine 10.7 H* D Est GFR ( Amer) 6 Est GFR (Non-Af Amer) 5 POC Glucose (mg/dL) Random Glucose 273 H Hemoglobin A1c Calcium 6.9 L* Phosphorus Magnesium Total Bilirubin 0.5 Direct Bilirubin AST 243 H D ALT 131 H Alkaline Phosphatase 64 Troponin I Total Protein 5.9 Albumin 3.4 Globulin 2.5 Albumin/Globulin Ratio 1.4 Triglycerides Cholesterol LDL Cholesterol Direct HDL Cholesterol Arterial Blood Potassium 5.5 H
[2018-02-19] MEDS ORDERED: Norepinephrine 8 MG in Sodium Chloride 0.9% 500 ML IV PRN (12:58)
--- NOTE | 2018-02-19 13:14 | CPOSTOP ---
DATE: 02/19/2018 CARDIOVASCULAR LAB POST PROCEDURE NOTE DICTATING PHYSICIAN: Corey Mcdermott MD. CHAR BELT OPERATOR: ROGER Singh. TYPE OF ANESTHESIA: The patient was sedated in the ICU. PRE-PROCEDURE DIAGNOSES: Cardiogenic shock, complete heart block. PROCEDURE PERFORMED: 1. Left heart catheterization. 2. Transvenous pacemaker implantation. FINDINGS: [place] triple-vessel disease. Patent SOTO to LAD. Patent saphenous graft to the diagonal 1. Patent saphenous graft to obtuse marginal 1 (circumflex). Multiple stenoses in the RCA. Distal RCA totally occluded. Diffuse disease at distal in LAD. Ejection fraction 25-30%. Temporary venous pacemaker placed with the setting rate of 60 on demand. 5Mv output. FINAL DIAGNOSES: Complete heart block, triple-vessel disease, patent grafts. POST PROCEDURE CONDITION: Post procedure, the patient's condition stable. Unstable cardiogenic shock. VASCULAR ACCESS: Right femoral artery for left heart cath. Right femoral vein for pacemaker. CLOSURE DEVICE: Angio-Seal applied. Arterial puncture and venous pacemaker secured. TOTAL RADIATION DOSE: 12,617.2 milligray unit. TOTAL FLUORO TIME: 7.3 minutes. RECOMMENDATIONS: Start Levophed and transfer to [facility] for dialysis today as no inpatient dialysis in [place]. Corey Mcdermott MD MTDD
--- NOTE | 2018-02-19 14:34 | CT ---
PROCEDURE: CT HEAD WITHOUT CONTRAST. HISTORY: AMS COMPARISON: 06/10/2017. TECHNIQUE: Axial computed tomography images were obtained through the head/brain without intravenous contrast. Radiation dose: Total exam DLP = 996.65 mGy-cm. This CT exam was performed using one or more of the following dose reduction techniques: Automated exposure control, adjustment of the mA and/or kV according to patient size, and/or use of iterative reconstruction technique. FINDINGS: HEMORRHAGE: No intracranial hemorrhage. BRAIN: Again seen are mild chronic microangiopathic changes. There are old lacunar infarctions in the right caudate head, thalamus and left basal ganglia.There are coarse atherosclerotic calcifications in the cavernous carotid arteries. VENTRICLES: There is mild age-related global parenchymal volume loss and proportionate enlargement of the ventricles and cortical sulci. CALVARIUM: The skull base and calvarium are normal . PARANASAL SINUSES: There is moderate chronic left posterior ethmoid, left maxillary and right sphenoid sinusitis. . MASTOID AIR CELLS: Predominantly clear. OTHER FINDINGS: None. IMPRESSION: No acute intracranial abnormality. Old lacunar infarctions in the right caudate head, right thalamus and left basal ganglia. Mild chronic microangiopathic changes and mild age-related global parenchymal volume loss.
--- NOTE | 2018-02-19 14:49 | CARD ---
APPROVED REPORT Procedure(s) performed: Left Heart Catheterization Transvenous Pacemaker placement HISTORY The patient is a 57 year-old male with a history of : previous ND (> 7 days), renal failure with dialysis, previous CVA remote >= 2 weeks, peripheral vascular disease, diabetes mellitus with insulin treatment , chronic lung disease, previous diagnostic cath, previous PCI (The PCI date was 08/28/2012), hypertension , previous CABG (The CABG date was 08/28/2011), dyslipidemia , cerebrovascular disease , Admitted with Complete heart Block and cardiogrnic shock ESRD on dialysis, missed dialysis, respiratory failyre and intubated, Severe PAD S/p Amputation of right for foot.. INDICATION The indication(s) include : Cardiogenic shock, respiratory failure.. CASE TECHNIQUE The patient was brought emergently to the Cardiac Catheterization Laboratory in a fasting state and was prepped and draped in a sterile manner. The right femoral groin was infiltrated with 2% Lidocaine subcutaneous anesthesia. A 6 Fr x 11 cm Terra sheath was inserted into the right femoral artery without difficulty. Coronary angiography was performed using coronary diagnostic catheters. The left coronary system was accessed and visualized with a Diagnostic , 6F JL4 CATH DXT 100 CM catheter. The right coronary system was accessed and visualized with a Diagnostic ,6F JR 4 CATH DXT 100 CM catheter. The left ventricle was accessed and visualized with a 6F PIGTAIL 145 CATH DXT 110 CM catheter. Left ventricular/Aortic Valve gradient assessed on pullback. Left ventriculogram was performed in AZUL projection. Closure device was deployed with a 6 Fr Angio-Seal without any complications. The patient tolerated the procedure well and there were no complications associated with the procedure. Right Femoral vein was accessed for Trans venous Pacemaker. Vessel Analysis The patient's coronary anatomy is right dominant. The left main coronary artery is a medium size vessel with diffuse calcification noted throughout this vessel and with significant stenosis. There is a 70-80% stenosis in the distal segment. The left main bifurcates to the left anterior descending and circumflex. The left anterior descending artery is a medium size vessel with diffuse calcification noted throughout this vessel and with significant stenosis. There is a 99% stenosis in the ostial segment. mid 100% Occulded The first diagonal branch is a medium size vessel with diffuse calcification noted throughout this vessel and without significant stenosis. The circumflex artery is a medium size vessel with diffuse calcification noted throughout this vessel and with significant stenosis. There is a 50-60% stenosis in the distal segment. Diffusely diseased and Instent restenosis The first obtuse marginal branch is a small size vessel with diffuse calcification noted throughout this vessel and without significant stenosis. The right coronary artery is a medium size vessel with diffuse calcification noted throughout this vessel and with significant stenosis. RCA is BARGE WORKER There is a 60-70% stenosis in the proximal segment. occluded distally, with multiple stenoses in mid segment The left internal mammary artery to the mid left anterior descending artery segment is patent but Distal LAd is diffusely diseased. The saphenous vein graft to the first diagonal branch segment is patent Distal D1 is diffusely diseased. The saphenous vein graft to the distal circumflex artery segment is patent Distal Cx is diffusely diseased.. Left Ventricle The left ventricle is enlarged in size with moderately contractility. Ischemic cardiomyopathy. The left ventricular ejection fraction is estimated to be 35%. The left ventricular end diastolic pressure is 20 mmHg. There was no gradient across the aortic valve upon pullback. Conclusion [place] triple vessel Disease But Patent SOTO to LAD, Distal lAD is Diffusely diseased. Patent SVG to D!, Patent SVG to Distal Circumflex. Mild to moderately enlarged LV, EF-30-35%, EDP-20. TV[address] 100% V paced, TVP setings, % mv ouput, on demand rate 60. 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
--- NOTE | 2018-02-19 15:02 | CP.CCUPN ---
<AshleyDiogo - Last Filed: 02/19/18 14:20> CCU Subjective - Physician Review Events Since Last Encounter (Free Text): 02/19/18 09:30A Patient seen and examined at bedside, patient is intubated and sedated, history limited. Patient does however respond to noxious stimuli. CCU Objective - Vital Signs / Intake & Output Vital Signs (Last 4 hours): Vital Signs Pulse BP Pulse Ox 02/19/18 14:00 95 H 118/72 100 02/19/18 13:50 99 H 100 02/19/18 13:45 97 H 123/72 100 02/19/18 13:40 97 H 100 02/19/18 13:30 98 H 122/70 100 02/19/18 13:20 99 H 100 02/19/18 13:15 100 H 132/74 02/19/18 13:14 101 H 134/72 02/19/18 13:10 104 H 02/19/18 13:03 109 H 151/71 H 02/19/18 12:29 62 93/54 L 02/19/18 11:50 63 96 02/19/18 11:45 61 90/52 L 97 02/19/18 11:40 63 100 02/19/18 11:30 62 88/48 L 100 02/19/18 11:20 63 100 02/19/18 11:15 62 89/51 L 100 02/19/18 11:10 61 100 02/19/18 11:00 62 87/50 L 100 02/19/18 10:50 61 100 02/19/18 10:45 60 91/52 L 100 02/19/18 10:40 62 100 02/19/18 10:30 61 89/52 L 99 Intake and Output (Last 8hrs): Intake & Output 02/18/18 02/19/18 02/19/18 22:59 06:59 14:59 Intake Total 210 Output Total 0 Balance 210 Weight 86.183 kg Intake: IV 210 Left Forearm 200 Oral 0 Output: Urine 0 Urine, Voided 0 Stool 0 - Physical Exam Head: Positive for: Atraumatic, Normocephalic Conjunctiva: Positive for: Normal Mouth: Positive for: Moist Mucous Membranes Respiratory/Chest: Positive for: Rhonchi (Rhonchi bilaterally), Other (Agonal breathing) Cardiovascular: Positive for: Bradycardic Abdomen: Positive for: Normal Bowel Sounds. Negative for: Distention, Peritoneal Signs Upper Extremity: Positive for: Normal Inspection. Negative for: Cyanosis, Edema Lower Extremity: Positive for: Normal Inspection, Other (Parital right foot amputation). Negative for: Edema Neurological: Positive for: Other (Unresponsive) - Medications Active Medications: Active Medications Generic Name Dose Route Start Last Admin Trade Name Freq PRN Reason Stop Dose Admin Albuterol/Ipratropium 3 ml 02/19/18 08:00 02/19/18 13:10 Duoneb 3 Mg/0.5 Mg (3 Ml) Ud IH 3 ml [id number] MARYANN Administration Aspirin 81 mg 02/19/18 10:00 02/19/18 09:06 Aspirin Chewable PO 81 mg DAILY MARYANN Administration Atorvastatin Calcium 40 mg 02/19/18 17:00 Lipitor PO DIN MARYANN Propofol 1,000 mg in 100 mls @ 2.585 mls/hr 02/18/18 23:58 02/19/18 09:25 Diprivan IV 30 mcg/kg/min .Q24H PRN 15.513 mls/hr TITRATE PER MD ORDER Titration Protocol 5 MCG/KG/MIN Dobutamine HCl/Dextrose 500 mg in 250 mls @ 5.171 mls/hr 02/19/18 01:04 02/19 13:35 Dobutamine/Dextrose 5% 500mg/250ml IV 5 mcg/kg/min .Q24H PRN 12.927 mls/hr TITRATE PER PROTOCOL Titration Protocol 2 MCG/KG/MIN Vancomycin HCl 1.5 gm/ Sodium 500 mls @ 167 mls/hr 02/19/18 11:58 Chloride IVPB 02/19/18 14:57 ONCE ONE Protocol Cefepime HCl 1 gm in 100 mls @ 100 mls/hr 02/19/18 12:00 02/19/18 13:45 Maxipime 1gm IVPB 100 mls/hr Q24H MARYANN Administration Protocol Norepinephrine Bitartrate 8 mg 508 mls @ 19.05 mls/hr 02/19/18 12:58 / Sodium Chloride IV .Q24H PRN TITRATE PER MD ORDER Protocol 5 MCG/MIN Insulin Human Regular 0 units 02/19/18 08:45 02/19/18 09:06 Humulin R High SC 10 units Q4H MARYANN Administration Protocol Pantoprazole Sodium 40 mg 02/19/18 10:00 02/19/18 09:06 Protonix Inj IVP 40 mg DAILY MARYANN Administration - Patient Studies Lab Studies: Lab Studies 02/19/18 02/19/18 02/19/18 Range/Units 13:51 08:40 08:15 WBC (4.5-11.0) 10^3/ul RBC (3.5-6.1) 10^6/uL Hgb (14.0-18.0) g/dL Hct (42.0-52.0) % MCV (80.0-105.0) fl MCH (25.0-35.0) pg MCHC (31.0-37.0) g/dl RDW (11.5-14.5) % Plt Count (120.0-450.0) 10^3/uL MPV (7.0-11.0) fl Gran % (50.0-68.0) % Lymph % (Auto) (22.0-35.0) % Isabela % (Auto) (1.0-6.0) % Eos % (Auto) (1.5-5.0) % Baso % (Auto) (0.0-3.0) % Gran # (1.4-6.5) Lymph # (Auto) (1.2-3.4) Isabela # (Auto) (0.1-0.6) Eos # (Auto) (0.0-0.7) Baso # (Auto) (0.0-2.0) K/mm3 pCO2 30 L (35-45) mm/Hg pO2 270.0 H (80-100) mm/Hg HCO3 16.2 L (21-28) mmol/L ABG pH 7.34 L (7.35-7.45) ABG Total CO2 17.1 L (22-28) mmol.L ABG O2 Saturation 99.5 H (95-98) % ABG Base Excess -8.3 L (-2.0-3.0) mmol/L ABG Potassium 5.5 H (3.6-5.2) mmol/L Glucose 279 H (75-110) mg/dl Lactate 4.2 H* (0.7-2.1) mmol/L FiO2 100.0 % Sodium 127.0 L 132 (132-148) mmol/L Potassium 5.7 H* (3.6-5.0) mmol/L Chloride 97.0 L 94 L (98-107) mmol/L Carbon Dioxide 18 L (21-33) mmol/L Anion Gap 26 H (10-20) BUN 60 H (7-21) mg/dL Creatinine 10.7 H* D (0.8-1.5) mg/dl Est GFR ( Amer) 6 Est GFR (Non-Af Amer) 5 POC Glucose (mg/dL) 143 H (65-110) mg/dL Random Glucose 273 H (70-110) mg/dL Hemoglobin A1c (4.2-6.5) % Calcium 6.9 L* (8.4-10.5) mg/dL Phosphorus (2.5-4.5) mg/dL Magnesium (1.7-2.2) mg/dL Total Bilirubin 0.5 (0.2-1.3) mg/dL Direct Bilirubin (0.0-0.4) mg/dL AST 243 H D (17-59) U/L ALT 131 H (7-56) U/L Alkaline Phosphatase 64 (38-126) U/L Troponin I ng/mL Total Protein 5.9 (5.8-8.3) g/dL Albumin 3.4 (3.0-4.8) g/dL Globulin 2.5 gm/dL Albumin/Globulin Ratio 1.4 (1.1-1.8) Triglycerides (35-160) mg/dL Cholesterol (130-200) mg/dL LDL Cholesterol Direct (0-129) mg/dL HDL Cholesterol (29-60) mg/dL Arterial Blood Potassium 5.5 H (3.6-5.2) mmol/L 02/19/18 02/19/18 02/19/18 Range/Units 08:09 06:10 06:00 WBC (4.5-11.0) 10^3/ul RBC (3.5-6.1) 10^6/uL Hgb (14.0-18.0) g/dL Hct (42.0-52.0) % MCV (80.0-105.0) fl MCH (25.0-35.0) pg MCHC (31.0-37.0) g/dl RDW (11.5-14.5) % Plt Count (120.0-450.0) 10^3/uL MPV (7.0-11.0) fl Gran % (50.0-68.0) % Lymph % (Auto) (22.0-35.0) % Isabela % (Auto) (1.0-6.0) % Eos % (Auto) (1.5-5.0) % Baso % (Auto) (0.0-3.0) % Gran # (1.4-6.5) Lymph # (Auto) (1.2-3.4) Isabela # (Auto) (0.1-0.6) Eos # (Auto) (0.0-0.7) Baso # (Auto) (0.0-2.0) K/mm3 pCO2 (35-45) mm/Hg pO2 (80-100) mm/Hg HCO3 (21-28) mmol/L ABG pH (7.35-7.45) ABG Total CO2 (22-28) mmol.L ABG O2 Saturation (95-98) % ABG Base Excess (-2.0-3.0) mmol/L ABG Potassium (3.6-5.2) mmol/L Glucose (75-110) mg/dl Lactate (0.7-2.1) mmol/L FiO2 % Sodium (132-148) mmol/L Potassium (3.6-5.0) mmol/L Chloride (98-107) mmol/L Carbon Dioxide (21-33) mmol/L Anion Gap (10-20) BUN (7-21) mg/dL Creatinine (0.8-1.5) mg/dl Est GFR ( Amer) Est GFR (Non-Af Amer) POC Glucose (mg/dL) 316 H 274 H (65-110) mg/dL Random Glucose (70-110) mg/dL Hemoglobin A1c (4.2-6.5) % Calcium (8.4-10.5) mg/dL Phosphorus (2.5-4.5) mg/dL Magnesium (1.7-2.2) mg/dL Total Bilirubin (0.2-1.3) mg/dL Direct Bilirubin 1.1 H (0.0-0.4) mg/dL AST (17-59) U/L ALT (7-56) U/L Alkaline Phosphatase (38-126) U/L Troponin I ng/mL Total Protein (5.8-8.3) g/dL Albumin (3.0-4.8) g/dL Globulin gm/dL Albumin/Globulin Ratio (1.1-1.8) Triglycerides 119 (35-160) mg/dL Cholesterol 65 L (130-200) mg/dL LDL Cholesterol Direct < 30 (0-129) mg/dL HDL Cholesterol 24 L (29-60) mg/dL Arterial Blood Potassium (3.6-5.2) mmol/L 02/19/18 02/19/18 02/19/18 Range/Units 06:00 06:00 06:00 WBC 9.3 D (4.5-11.0) 10^3/ul RBC 3.66 (3.5-6.1) 10^6/uL Hgb 10.3 L D (14.0-18.0) g/dL Hct 33.3 L (42.0-52.0) % MCV 91.0 (80.0-105.0) fl MCH 28.1 (25.0-35.0) pg MCHC 30.9 L (31.0-37.0) g/dl RDW 15.5 H (11.5-14.5) % Plt Count 164 (120.0-450.0) 10^3/uL MPV 12.5 H (7.0-11.0) fl Gran % 85.2 H (50.0-68.0) % Lymph % (Auto) 6.1 L (22.0-35.0) % Isabela % (Auto) 8.5 H (1.0-6.0) % Eos % (Auto) 0.1 L (1.5-5.0) % Baso % (Auto) 0.1 (0.0-3.0) % Gran # 7.92 H (1.4-6.5) Lymph # (Auto) 0.6 L (1.2-3.4) Isabela # (Auto) 0.8 H (0.1-0.6) Eos # (Auto) 0.0 (0.0-0.7) Baso # (Auto) 0.01 (0.0-2.0) K/mm3 pCO2 (35-45) mm/Hg pO2 (80-100) mm/Hg HCO3 (21-28) mmol/L ABG pH (7.35-7.45) ABG Total CO2 (22-28) mmol.L ABG O2 Saturation (95-98) % ABG Base Excess (-2.0-3.0) mmol/L ABG Potassium (3.6-5.2) mmol/L Glucose (75-110) mg/dl Lactate (0.7-2.1) mmol/L FiO2 % Sodium 127 L (132-148) mmol/L Potassium 5.2 H (3.6-5.0) mmol/L Chloride 90 L (98-107) mmol/L Carbon Dioxide 11 L (21-33) mmol/L Anion Gap 31 H (10-20) BUN 54 H (7-21) mg/dL Creatinine 8.8 H* (0.8-1.5) mg/dl Est GFR ( Amer) 8 Est GFR (Non-Af Amer) 6 POC Glucose (mg/dL) (65-110) mg/dL Random Glucose 544 H* D (70-110) mg/dL Hemoglobin A1c 7.6 H (4.2-6.5) % Calcium 6.7 L* (8.4-10.5) mg/dL Phosphorus 11.0 H (2.5-4.5) mg/dL Magnesium 1.7 (1.7-2.2) mg/dL Total Bilirubin 1.1 (0.2-1.3) mg/dL Direct Bilirubin (0.0-0.4) mg/dL AST 182 H (17-59) U/L ALT 122 H (7-56) U/L Alkaline Phosphatase 57 (38-126) U/L Troponin I 34.50 H* ng/mL Total Protein 5.9 (5.8-8.3) g/dL Albumin 3.5 (3.0-4.8) g/dL Globulin 2.4 gm/dL Albumin/Globulin Ratio 1.4 (1.1-1.8) Triglycerides (35-160) mg/dL Cholesterol (130-200) mg/dL LDL Cholesterol Direct (0-129) mg/dL HDL Cholesterol (29-60) mg/dL Arterial Blood Potassium (3.6-5.2) mmol/L Laboratory Results - last 24 hr 02/19/18 02/19/18 02/19/18 06:00 06:00 06:00 WBC 9.3 D RBC 3.66 Hgb 10.3 L D Hct 33.3 L MCV 91.0 MCH 28.1 MCHC 30.9 L RDW 15.5 H Plt Count 164 MPV 12.5 H Gran % 85.2 H Lymph % (Auto) 6.1 L Isabela % (Auto) 8.5 H Eos % (Auto) 0.1 L Baso % (Auto) 0.1 Gran # 7.92 H Lymph # (Auto) 0.6 L Isabela # (Auto) 0.8 H Eos # (Auto) 0.0 Baso # (Auto) 0.01 pCO2 pO2 HCO3 ABG pH ABG Total CO2 ABG O2 Saturation ABG Base Excess ABG Potassium Glucose Lactate FiO2 Sodium 127 L Potassium 5.2 H Chloride 90 L Carbon Dioxide 11 L Anion Gap 31 H BUN 54 H Creatinine 8.8 H* Est GFR ( Amer) 8 Est GFR (Non-Af Amer) 6 POC Glucose (mg/dL) Random Glucose 544 H* D Hemoglobin A1c 7.6 H Calcium 6.7 L* Phosphorus 11.0 H Magnesium 1.7 Total Bilirubin 1.1 Direct Bilirubin AST 182 H ALT 122 H Alkaline Phosphatase 57 Troponin I 34.50 H* Total Protein 5.9 Albumin 3.5 Globulin 2.4 Albumin/Globulin Ratio 1.4 Triglycerides Cholesterol LDL Cholesterol Direct HDL Cholesterol Arterial Blood Potassium 02/19/18 02/19/18 02/19/18 06:00 06:10 08:09 WBC RBC Hgb Hct MCV MCH MCHC RDW Plt Count MPV Gran % Lymph % (Auto) Isabela % (Auto) Eos % (Auto) Baso % (Auto) Gran # Lymph # (Auto) Isabela # (Auto) Eos # (Auto) Baso # (Auto) pCO2 pO2 HCO3 ABG pH ABG Total CO2 ABG O2 Saturation ABG Base Excess ABG Potassium Glucose Lactate FiO2 Sodium Potassium Chloride Carbon Dioxide Anion Gap BUN Creatinine Est GFR ( Amer) Est GFR (Non-Af Amer) POC Glucose (mg/dL) 274 H 316 H Random Glucose Hemoglobin A1c Calcium Phosphorus Magnesium Total Bilirubin Direct Bilirubin 1.1 H AST ALT Alkaline Phosphatase Troponin I Total Protein Albumin Globulin Albumin/Globulin Ratio Triglycerides 119 Cholesterol 65 L LDL Cholesterol Direct < 30 HDL Cholesterol 24 L Arterial Blood Potassium 02/19/18 02/19/18 02/19/18 08:15 08:40 13:51 WBC RBC Hgb Hct MCV MCH MCHC RDW Plt Count MPV Gran % Lymph % (Auto) Isabela % (Auto) Eos % (Auto) Baso % (Auto) Gran # Lymph # (Auto) Isabela # (Auto) Eos # (Auto) Baso # (Auto) pCO2 30 L pO2 270.0 H HCO3 16.2 L ABG pH 7.34 L ABG Total CO2 17.1 L ABG O2 Saturation 99.5 H ABG Base Excess -8.3 L ABG Potassium 5.5 H Glucose 279 H Lactate 4.2 H* FiO2 100.0 Sodium 132 127.0 L Potassium 5.7 H* Chloride 94 L 97.0 L Carbon Dioxide 18 L Anion Gap 26 H BUN 60 H Creatinine 10.7 H* D Est GFR ( Amer) 6 Est GFR (Non-Af Amer) 5 POC Glucose (mg/dL) 143 H Random Glucose 273 H Hemoglobin A1c Calcium 6.9 L* Phosphorus Magnesium Total Bilirubin 0.5 Direct Bilirubin AST 243 H D ALT 131 H Alkaline Phosphatase 64 Troponin I Total Protein 5.9 Albumin 3.4 Globulin 2.5 Albumin/Globulin Ratio 1.4 Triglycerides Cholesterol LDL Cholesterol Direct HDL Cholesterol Arterial Blood Potassium 5.5 H EKG/Cardiology Studies: Cardiology / EKG Studies 02/19/18 07:00 EKG [ELECTROCARDIOGRAM] Routine Comment: Reason For Exam: s/p cardiac arrest 02/19/18 12:41 EKG [ELECTROCARDIOGRAM] Stat Comment: Reason For Exam: elevated K complete heart block Fingerstick Blood Sugar Results: 316 Critical Care Progress Note - Nutrition Nutrition: Nutrition Category Date Time Status NPO Diet [DIET] Diets 02/19/18 Breakfast Ordered Assessment/Plan - Assessment and Plan (Free Text) Assessment: 57yo male under ICU management for Acute Hypoxemic Respiratory Failure s/p Cardiac Arrest who is intubated and sedated Plan Neuro - Sedated on propofol gtt - Maintain normothermia - Aspiration precautions Cardio - Maintain MAP above 65 - Dobutamine gtt - hold all BP meds - Patient will be taken to slab gr[facility] with Dr. Mcdermott Respiratory - Intubated on vent - Duoneb q6 - Empiric abx GI - Elevated LFTs and Tbili - f/u DBili; GI Dr. Barragan consulted; f/u acute hep panel - None of these are acute issues, we can follow up - NPO; Protonix for PPX - NGT in place Renal - Hx of ESRD on HD - Patient was hyperkalemic on AM labs, kayexalate given - Will be transferred to [facility] for HD after cath ID - Elevated WBC on admission - Panculture and Procalcitonin f/u - Empiric abx Vanc and Zosyn - ID Dr. See consulted Endo - RISS low - Accucheck - Maintain euglycemia - F/u HgbA1c DVT ppx: SCDs; Add lovenox per Cardio recommendations <Jalen Lima - Last Filed: 02/19/18 15:15> CCU Objective - Vital Signs / Intake & Output Vital Signs (Last 4 hours): Vital Signs Pulse BP Pulse Ox 02/19/18 14:00 95 H 118/72 100 02/19/18 13:50 99 H 100 02/19/18 13:45 97 H 123/72 100 02/19/18 13:40 97 H 100 02/19/18 13:30 98 H 122/70 100 02/19/18 13:20 99 H 100 02/19/18 13:15 100 H 132/74 02/19/18 13:14 101 H 134/72 02/19/18 13:10 104 H 02/19/18 13:03 109 H 151/71 H 02/19/18 12:29 62 93/54 L 02/19/18 11:50 63 96 02/19/18 11:45 61 90/52 L 97 02/19/18 11:40 63 100 02/19/18 11:30 62 88/48 L 100 02/19/18 11:20 63 100 02/19/18 11:15 62 89/51 L 100 02/19/18 11:10 61 100 Intake and Output (Last 8hrs): Intake & Output 02/19/18 02/19/18 02/19/18 06:59 14:59 22:59 Intake Total 210 Output Total 0 Balance 210 Weight 190 lb Intake: IV 210 Left Forearm 200 Oral 0 Output: Urine 0 Urine, Voided 0 Stool 0 - Medications Active Medications: Active Medications Generic Name Dose Route Start Last Admin Trade Name Freq PRN Reason Stop Dose Admin Albuterol/Ipratropium 3 ml 02/19/18 08:00 02/19/18 13:10 Duoneb 3 Mg/0.5 Mg (3 Ml) Ud IH 3 ml [id number] MARYANN Administration Aspirin 81 mg 02/19/18 10:00 02/19/18 09:06 Aspirin Chewable PO 81 mg DAILY MARYANN Administration Atorvastatin Calcium 40 mg 02/19/18 17:00 Lipitor PO DIN MAYRANN Propofol 1,000 mg in 100 mls @ 2.585 mls/hr 02/18/18 23:58 02/19/18 09:25 Diprivan IV 30 mcg/kg/min .Q24H PRN 15.513 mls/hr TITRATE PER MD ORDER Titration Protocol 5 MCG/KG/MIN Dobutamine HCl/Dextrose 500 mg in 250 mls @ 5.171 mls/hr 02/19/18 01:04 02/19 13:35 Dobutamine/Dextrose 5% 500mg/250ml IV 5 mcg/kg/min .Q24H PRN 12.927 mls/hr TITRATE PER PROTOCOL Titration Protocol 2 MCG/KG/MIN Cefepime HCl 1 gm in 100 mls @ 100 mls/hr 02/19/18 12:00 02/19/18 13:45 Maxipime 1gm IVPB 100 mls/hr Q24H MARYANN Administration Protocol Norepinephrine Bitartrate 8 mg 508 mls @ 19.05 mls/hr 02/19/18 12:58 / Sodium Chloride IV .Q24H PRN TITRATE PER MD ORDER Protocol 5 MCG/MIN Insulin Human Regular 0 units 02/19/18 08:45 02/19/18 09:06 Humulin R High SC 10 units Q4H MARYANN Administration Protocol Pantoprazole Sodium 40 mg 02/19/18 10:00 02/19/18 09:06 Protonix Inj IVP 40 mg DAILY MARYANN Administration - Patient Studies Lab Studies: Lab Studies 02/19/18 02/19/18 02/19/18 Range/Units 13:51 08:40 08:15 WBC (4.5-11.0) 10^3/ul RBC (3.5-6.1) 10^6/uL Hgb (14.0-18.0) g/dL Hct (42.0-52.0) % MCV (80.0-105.0) fl MCH (25.0-35.0) pg MCHC (31.0-37.0) g/dl RDW (11.5-14.5) % Plt Count (120.0-450.0) 10^3/uL MPV (7.0-11.0) fl Gran % (50.0-68.0) % Lymph % (Auto) (22.0-35.0) % Isabela % (Auto) (1.0-6.0) % Eos % (Auto) (1.5-5.0) % Baso % (Auto) (0.0-3.0) % Gran # (1.4-6.5) Lymph # (Auto) (1.2-3.4) Isabela # (Auto) (0.1-0.6) Eos # (Auto) (0.0-0.7) Baso # (Auto) (0.0-2.0) K/mm3 pCO2 30 L (35-45) mm/Hg pO2 270.0 H (80-100) mm/Hg HCO3 16.2 L (21-28) mmol/L ABG pH 7.34 L (7.35-7.45) ABG Total CO2 17.1 L (22-28) mmol.L ABG O2 Saturation 99.5 H (95-98) % ABG Base Excess -8.3 L (-2.0-3.0) mmol/L ABG Potassium 5.5 H (3.6-5.2) mmol/L Glucose 279 H (75-110) mg/dl Lactate 4.2 H* (0.7-2.1) mmol/L FiO2 100.0 % Sodium 127.0 L 132 (132-148) mmol/L Potassium 5.7 H* (3.6-5.0) mmol/L Chloride 97.0 L 94 L (98-107) mmol/L Carbon Dioxide 18 L (21-33) mmol/L Anion Gap 26 H (10-20) BUN 60 H (7-21) mg/dL Creatinine 10.7 H* D (0.8-1.5) mg/dl Est GFR ( Amer) 6 Est GFR (Non-Af Amer) 5 POC Glucose (mg/dL) 143 H (65-110) mg/dL Random Glucose 273 H (70-110) mg/dL Hemoglobin A1c (4.2-6.5) % Calcium 6.9 L* (8.4-10.5) mg/dL Phosphorus (2.5-4.5) mg/dL Magnesium (1.7-2.2) mg/dL Total Bilirubin 0.5 (0.2-1.3) mg/dL Direct Bilirubin (0.0-0.4) mg/dL AST 243 H D (17-59) U/L ALT 131 H (7-56) U/L Alkaline Phosphatase 64 (38-126) U/L Troponin I ng/mL Total Protein 5.9 (5.8-8.3) g/dL Albumin 3.4 (3.0-4.8) g/dL Globulin 2.5 gm/dL Albumin/Globulin Ratio 1.4 (1.1-1.8) Triglycerides (35-160) mg/dL Cholesterol (130-200) mg/dL LDL Cholesterol Direct (0-129) mg/dL HDL Cholesterol (29-60) mg/dL Arterial Blood Potassium 5.5 H (3.6-5.2) mmol/L 02/19/18 02/19/18 02/19/18 Range/Units 08:09 06:10 06:00 WBC (4.5-11.0) 10^3/ul RBC (3.5-6.1) 10^6/uL Hgb (14.0-18.0) g/dL Hct (42.0-52.0) % MCV (80.0-105.0) fl MCH (25.0-35.0) pg MCHC (31.0-37.0) g/dl RDW (11.5-14.5) % Plt Count (120.0-450.0) 10^3/uL MPV (7.0-11.0) fl Gran % (50.0-68.0) % Lymph % (Auto) (22.0-35.0) % Isabela % (Auto) (1.0-6.0) % Eos % (Auto) (1.5-5.0) % Baso % (Auto) (0.0-3.0) % Gran # (1.4-6.5) Lymph # (Auto) (1.2-3.4) Isabela # (Auto) (0.1-0.6) Eos # (Auto) (0.0-0.7) Baso # (Auto) (0.0-2.0) K/mm3 pCO2 (35-45) mm/Hg pO2 (80-100) mm/Hg HCO3 (21-28) mmol/L ABG pH (7.35-7.45) ABG Total CO2 (22-28) mmol.L ABG O2 Saturation (95-98) % ABG Base Excess (-2.0-3.0) mmol/L ABG Potassium (3.6-5.2) mmol/L Glucose (75-110) mg/dl Lactate (0.7-2.1) mmol/L FiO2 % Sodium (132-148) mmol/L Potassium (3.6-5.0) mmol/L Chloride (98-107) mmol/L Carbon Dioxide (21-33) mmol/L Anion Gap (10-20) BUN (7-21) mg/dL Creatinine (0.8-1.5) mg/dl Est GFR ( Amer) Est GFR (Non-Af Amer) POC Glucose (mg/dL) 316 H 274 H (65-110) mg/dL Random Glucose (70-110) mg/dL Hemoglobin A1c (4.2-6.5) % Calcium (8.4-10.5) mg/dL Phosphorus (2.5-4.5) mg/dL Magnesium (1.7-2.2) mg/dL Total Bilirubin (0.2-1.3) mg/dL Direct Bilirubin 1.1 H (0.0-0.4) mg/dL AST (17-59) U/L ALT (7-56) U/L Alkaline Phosphatase (38-126) U/L Troponin I ng/mL Total Protein (5.8-8.3) g/dL Albumin (3.0-4.8) g/dL Globulin gm/dL Albumin/Globulin Ratio (1.1-1.8) Triglycerides 119 (35-160) mg/dL Cholesterol 65 L (130-200) mg/dL LDL Cholesterol Direct < 30 (0-129) mg/dL HDL Cholesterol 24 L (29-60) mg/dL Arterial Blood Potassium (3.6-5.2) mmol/L 02/19/18 02/19/18 02/19/18 Range/Units 06:00 06:00 06:00 WBC 9.3 D (4.5-11.0) 10^3/ul RBC 3.66 (3.5-6.1) 10^6/uL Hgb 10.3 L D (14.0-18.0) g/dL Hct 33.3 L (42.0-52.0) % MCV 91.0 (80.0-105.0) fl MCH 28.1 (25.0-35.0) pg MCHC 30.9 L (31.0-37.0) g/dl RDW 15.5 H (11.5-14.5) % Plt Count 164 (120.0-450.0) 10^3/uL MPV 12.5 H (7.0-11.0) fl Gran % 85.2 H (50.0-68.0) % Lymph % (Auto) 6.1 L (22.0-35.0) % Isabela % (Auto) 8.5 H (1.0-6.0) % Eos % (Auto) 0.1 L (1.5-5.0) % Baso % (Auto) 0.1 (0.0-3.0) % Gran # 7.92 H (1.4-6.5) Lymph # (Auto) 0.6 L (1.2-3.4) Isabela # (Auto) 0.8 H (0.1-0.6) Eos # (Auto) 0.0 (0.0-0.7) Baso # (Auto) 0.01 (0.0-2.0) K/mm3 pCO2 (35-45) mm/Hg pO2 (80-100) mm/Hg HCO3 (21-28) mmol/L ABG pH (7.35-7.45) ABG Total CO2 (22-28) mmol.L ABG O2 Saturation (95-98) % ABG Base Excess (-2.0-3.0) mmol/L ABG Potassium (3.6-5.2) mmol/L Glucose (75-110) mg/dl Lactate (0.7-2.1) mmol/L FiO2 % Sodium 127 L (132-148) mmol/L Potassium 5.2 H (3.6-5.0) mmol/L Chloride 90 L (98-107) mmol/L Carbon Dioxide 11 L (21-33) mmol/L Anion Gap 31 H (10-20) BUN 54 H (7-21) mg/dL Creatinine 8.8 H* (0.8-1.5) mg/dl Est GFR ( Amer) 8 Est GFR (Non-Af Amer) 6 POC Glucose (mg/dL) (65-110) mg/dL Random Glucose 544 H* D (70-110) mg/dL Hemoglobin A1c 7.6 H (4.2-6.5) % Calcium 6.7 L* (8.4-10.5) mg/dL Phosphorus 11.0 H (2.5-4.5) mg/dL Magnesium 1.7 (1.7-2.2) mg/dL Total Bilirubin 1.1 (0.2-1.3) mg/dL Direct Bilirubin (0.0-0.4) mg/dL AST 182 H (17-59) U/L ALT 122 H (7-56) U/L Alkaline Phosphatase 57 (38-126) U/L Troponin I 34.50 H* ng/mL Total Protein 5.9 (5.8-8.3) g/dL Albumin 3.5 (3.0-4.8) g/dL Globulin 2.4 gm/dL Albumin/Globulin Ratio 1.4 (1.1-1.8) Triglycerides (35-160) mg/dL Cholesterol (130-200) mg/dL LDL Cholesterol Direct (0-129) mg/dL HDL Cholesterol (29-60) mg/dL Arterial Blood Potassium (3.6-5.2) mmol/L Laboratory Results - last 24 hr 02/19/18 02/19/18 02/19/18 06:00 06:00 06:00 WBC 9.3 D RBC 3.66 Hgb 10.3 L D Hct 33.3 L MCV 91.0 MCH 28.1 MCHC 30.9 L RDW 15.5 H Plt Count 164 MPV 12.5 H Gran % 85.2 H Lymph % (Auto) 6.1 L Isabela % (Auto) 8.5 H Eos % (Auto) 0.1 L Baso % (Auto) 0.1 Gran # 7.92 H Lymph # (Auto) 0.6 L Isabela # (Auto) 0.8 H Eos # (Auto) 0.0 Baso # (Auto) 0.01 pCO2 pO2 HCO3 ABG pH ABG Total CO2 ABG O2 Saturation ABG Base Excess ABG Potassium Glucose Lactate FiO2 Sodium 127 L Potassium 5.2 H Chloride 90 L Carbon Dioxide 11 L Anion Gap 31 H BUN 54 H Creatinine 8.8 H* Est GFR ( Amer) 8 Est GFR (Non-Af Amer) 6 POC Glucose (mg/dL) Random Glucose 544 H* D Hemoglobin A1c 7.6 H Calcium 6.7 L* Phosphorus 11.0 H Magnesium 1.7 Total Bilirubin 1.1 Direct Bilirubin AST 182 H ALT 122 H Alkaline Phosphatase 57 Troponin I 34.50 H* Total Protein 5.9 Albumin 3.5 Globulin 2.4 Albumin/Globulin Ratio 1.4 Triglycerides Cholesterol LDL Cholesterol Direct HDL Cholesterol Arterial Blood Potassium 02/19/18 02/19/18 02/19/18 06:00 06:10 08:09 WBC RBC Hgb Hct MCV MCH MCHC RDW Plt Count MPV Gran % Lymph % (Auto) Isabela % (Auto) Eos % (Auto) Baso % (Auto) Gran # Lymph # (Auto) Isabela # (Auto) Eos # (Auto) Baso # (Auto) pCO2 pO2 HCO3 ABG pH ABG Total CO2 ABG O2 Saturation ABG Base Excess ABG Potassium Glucose Lactate FiO2 Sodium Potassium Chloride Carbon Dioxide Anion Gap BUN Creatinine Est GFR ( Amer) Est GFR (Non-Af Amer) POC Glucose (mg/dL) 274 H 316 H Random Glucose Hemoglobin A1c Calcium Phosphorus Magnesium Total Bilirubin Direct Bilirubin 1.1 H AST ALT Alkaline Phosphatase Troponin I Total Protein Albumin Globulin Albumin/Globulin Ratio Triglycerides 119 Cholesterol 65 L LDL Cholesterol Direct < 30 HDL Cholesterol 24 L Arterial Blood Potassium 02/19/18 02/19/18 02/19/18 08:15 08:40 13:51 WBC RBC Hgb Hct MCV MCH MCHC RDW Plt Count MPV Gran % Lymph % (Auto) Isabela % (Auto) Eos % (Auto) Baso % (Auto) Gran # Lymph # (Auto) Isabel[place] # (Auto) Eos # (Auto) Baso # (Auto) pCO2 30 L pO2 270.0 H HCO3 16.2 L ABG pH 7.34 L ABG Total CO2 17.1 L ABG O2 Saturation 99.5 H ABG Base Excess -8.3 L ABG Potassium 5.5 H Glucose 279 H Lactate 4.2 H* FiO2 100.0 Sodium 132 127.0 L Potassium 5.7 H* Chloride 94 L 97.0 L Carbon Dioxide 18 L Anion Gap 26 H BUN 60 H Creatinine 10.7 H* D Est GFR ( Amer) 6 Est GFR (Non-Af Amer) 5 POC Glucose (mg/dL) 143 H Random Glucose 273 H Hemoglobin A1c Calcium 6.9 L* Phosphorus Magnesium Total Bilirubin 0.5 Direct Bilirubin AST 243 H D ALT 131 H Alkaline Phosphatase 64 Troponin I Total Protein 5.9 Albumin 3.4 Globulin 2.5 Albumin/Globulin Ratio 1.4 Triglycerides Cholesterol LDL Cholesterol Direct HDL Cholesterol Arterial Blood Potassium 5.5 H EKG/Cardiology Studies: Cardiology / EKG Studies 02/19/18 07:00 EKG [ELECTROCARDIOGRAM] Routine Comment: Reason For Exam: s/p cardiac arrest 02/19/18 12:41 EKG [ELECTROCARDIOGRAM] Stat Comment: Reason For Exam: elevated K complete heart block Critical Care Progress Note - Nutrition Nutrition: Nutrition Category Date Time Status NPO Diet [DIET] Diets 02/19/18 Breakfast Ordered Attending/Attestation - Attestation I have personally seen and examined this patient.: Yes I have fully participated in the care of the patient.: Yes I have reviewed all pertinent clinical information: Yes Notes (Text): 02/19/18 15:08 The patient was seen and examined at the bedside. Patient care was discussed with resident Medical records, lab studies, and imaging were reviewed and management issues were discussed and formulated. Last 24H events reviewed. Agree with above treatment plans as outlined in 's note with addition of the following: Cardiopulmonary Arrest \ Acute Respiratory Failure \ Hypoxemia \ ESRD on HD \ NSTEMI \ Cardiogenic Shock \ ho CAD \ Elevated LFT \ DNR \ DM2 -s\p CPR arrest x 2 in ED yesterday; no hypothermia protocol initiated as pt was awake and alert -hemodynamic monitoring to maintain MAP>65; continue ASA, plavix and statin; -s\p PCI , cardiology team following; f\u ECHO -continue dobutamine and levophed titration -mechanical ventilation to maintain Spo2>90 Pao2>60; current mode PRVC -monitor for TV 6ml\kg IBW and plateau pressure <30 -ABG reviewed and CXR reviewed; fio2 decreased to 60% -continue nebs and pulmonary toileting -Continue broad spectrum Abx as per ID team and f\u cultures -f\u Bun\Cr and U\o; renal team following closely and has initiated tfer to [facility] for continuation of HD -tube feeds diet and aspiration precautions -f\u serial LFT -ISS and BGM monitoring -DVT \ PUD prophylaxis -palliation team jay appreciated. Pt is found to have a DNR\DNI form as of april of last year, which unfortunately was not known to out medical personnel. We will update resuscitation status according to patient's wishes -report given to ICU attending in [facility] prior to tfer CCM time including coordination of care 41min
--- NOTE | 2018-02-19 15:15 | CP.PCM.CON ---
History of Present Illness - History of Present Illness History of Present Illness: Palliative consult requested by Dr Bernadette Montelongo Reason: Goals of care 57 year old male with history of CAD s/p stents, CABG, ESRD, who was brought to the ED via EMS with shortness of breath. He became unresponsive in ED > unresponsive> agonal rhythm> ACLS >intubated > epinephrine X 2 > ROSC. He became bradycardic and unresponsive a second time> Epi X1< ROSC. CT of head showed no acute findings, chronic microangiopahtic changes. Chest x ray showed severe cardiomegaly. Patient went to labor crew supervisor today, findings of triple vessel disease, patent SOTO to LAD, Distal IAD diffusely diseased, moderately enlarged LV, EF 30-35%, pacemaker placed. PMHX: CAD stents X3,CABG, ESRD on HD, HTN, DM. PSH: Cholesytectomy, left hip ORIF, left knee surgery, partial amputation of right foot Social History: Denies smoking, former ETOH , occasional marijuana Family History: Father had pancreatic Cancer. Advance Care Planning: POLST: DNR/DNI. Flex CASAS, Review of Systems: Unable to obtain, intubated,unresponsive. Past Patient History - Infectious Disease Hx of Infectious Diseases: None - Tetanus Immunizations Tetanus Immunization: Unknown - Past Medical History & Family History Past Medical History?: Yes - Past Social History Smoking Status: Never Smoked - CARDIAC Hx Cardiac Disorders: Yes (CAD, SC x 3, CABG x 3) Hx Congestive Heart Failure: Yes Hx Hypertension: Yes - PULMONARY Hx Respiratory Disorders: Yes Other/Comment: PULMONARY EDEMA - NEUROLOGICAL Hx Neurological Disorder: Yes (NEUROPATHY) HX Cerebrovascular Accident: Yes Hx Dizziness: Yes (SYNCOPE) - HEENT Hx HEENT Problems: No (CONTACT LENSES) - RENAL Hx Chronic Kidney Disease: Yes Date of Last Dialysis Treatment: 01/11/18 Hx Renal Failure: Yes (HD TUES,THUR,SAT) Other/Comment: shunt rt arm - ENDOCRINE/METABOLIC Hx Endocrine Disorders: Yes Hx Diabetes Mellitus Type 2: Yes - HEMATOLOGICAL/ONCOLOGICAL Hx Blood Disorders: No - INTEGUMENTARY Hx Dermatological Problems: Yes Other/Comment: righty lower ext rash, pt stated "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" - MUSCULOSKELETAL/RHEUMATOLOGICAL Hx Musculoskeletal Disorders: Yes Hx Falls: Yes Hx Unsteady Gait: Yes (SPECIAL SHOES WORN) - GASTROINTESTINAL Hx Gastrointestinal Disorders: Yes (GASTROPARESIS) - GENITOURINARY/GYNECOLOGICAL Hx Genitourinary Disorders: Yes (URINARY RETENTION-OLIVERA) Hx Urinary Tract Infection: Yes - PSYCHIATRIC Hx Psychophysiologic Disorder: No Hx Emotional Abuse: No Hx Physical Abuse: No Hx Substance Use: Yes (MARIJUANA USE.DAILY.) - SURGICAL HISTORY Hx Cardiac Catheterization: Yes Hx Cholecystectomy: Yes Hx Coronary Stent: Yes (3) Other/Comment: shunt rt arm,L HIP SX,L KNEE SX, - ANESTHESIA Hx Anesthesia Reactions: No Meds Home Medications: Home Medication List Medication Instructions Recorded Confirmed Type Albuterol/Ipratropium [Duoneb 3 3 ml IH [id number] neb 02/19/18 Rx mg/0.5 mg (3 ml) UD] Aspirin [Aspirin Chewable] 81 mg PO DAILY chew 02/19/18 Rx Atorvastatin [Lipitor] 40 mg PO DIN tab 02/19/18 Rx Insulin Human Regular-HIGH 0 units SC Q4H ml 02/19/18 Rx [HumuLIN R HIGH] Norepinephrine [Levophed] 8 mg IV .Q24H PRN amp 02/19/18 Rx Pantoprazole [Protonix Inj] 40 mg IVP DAILY vial 02/19/18 Rx Allergies/Adverse Reactions: Allergies Allergy/AdvReac Type Severity Reaction Status Date / Time shellfish derived Allergy ANAPHYLAXIS Verified 02/18/18 23:18 Seafood Allergy ANAPHYLAXIS Uncoded 02/18/18 23:18 - Medications Medications: Current Medications Albuterol/Ipratropium (Duoneb 3 Mg/0.5 Mg (3 Ml) Ud) 3 ml IH [id number] MARYANN Last Admin: 02/19/18 13:10 Dose: 3 ml Aspirin (Aspirin Chewable) 81 mg PO DAILY MARYANN Last Admin: 02/19/18 09:06 Dose: 81 mg Atorvastatin Calcium (Lipitor) 40 mg PO DIN MARYANN Propofol (Diprivan) 1,000 mg in 100 mls @ 2.585 mls/hr IV .Q24H PRN; Protocol; 5 MCG/KG/MIN PRN Reason: TITRATE PER MD ORDER Last Titration: 02/19/18 09:25 Dose: 30 mcg/kg/min, 15.513 mls/hr Dobutamine HCl/Dextrose (Dobutamine/Dextrose 5% 500mg/250ml) 500 mg in 250 mls @ 5.171 mls/hr IV .Q24H PRN; Protocol; 2 MCG/KG/MIN PRN Reason: TITRATE PER PROTOCOL Last Titration: 02/19/18 13:35 Dose: 5 mcg/kg/min, 12.927 mls/hr Cefepime HCl (Maxipime 1gm) 1 gm in 100 mls @ 100 mls/hr IVPB Q24H MARYANN PRN Reason: Protocol Last Admin: 02/19/18 13:45 Dose: 100 mls/hr Norepinephrine Bitartrate 8 mg (/ Sodium Chloride) 508 mls @ 19.05 mls/hr IV .Q24H PRN; Protocol; 5 MCG/MIN PRN Reason: TITRATE PER MD ORDER Insulin Human Regular (Humulin R High) 0 units SC Q4H [facility] PRN Reason: Protocol Last Admin: 02/19/18 09:06 Dose: 10 units Pantoprazole Sodium (Protonix Inj) 40 mg IVP DAILY [facility] Last Admin: 02/19/18 09:06 Dose: 40 mg Physical Exam - Constitutional Appears: Chronically Ill - Eye Exam Eye Exam: Normal appearance - ENT Exam ENT Exam: Mucous Membranes Moist - Respiratory Exam Respiratory Exam: Decreased Breath Sounds - Cardiovascular Exam Cardiovascular Exam: REGULAR RHYTHM, +S1, +S2 - GI/Abdominal Exam GI & Abdominal Exam: Hypoactive Bowel Sounds, Soft - Extremities Exam Additional comments: right foot amputation - Skin Skin Exam: Dry, Pallor - Additional Findings Additional findings: Palliative performance scale rating 10 % Results - Vital Signs Recent Vital Signs: Last Vital Signs Temp 98.3 F 02/19/18 06:10 Pulse 95 H 02/19/18 14:00 Resp 22 02/19/18 10:07 BP 118/72 02/19/18 14:00 Pulse Ox 100 02/19/18 14:00 - Labs Result Diagrams: 02/19/18 06:00 02/19/18 08:15 Labs: Laboratory Results - last 24 hr 02/19/18 02/19/18 02/19/18 06:00 06:00 06:00 WBC 9.3 D RBC 3.66 Hgb 10.3 L D Hct 33.3 L MCV 91.0 MCH 28.1 MCHC 30.9 L RDW 15.5 H Plt Count 164 MPV 12.5 H Gran % 85.2 H Lymph % (Auto) 6.1 L [place] % (Auto) 8.5 H Eos % (Auto) 0.1 L Baso % (Auto) 0.1 Gran # 7.92 H Lymph # (Auto) 0.6 L [place] # (Auto) 0.8 H Eos # (Auto) 0.0 Baso # (Auto) 0.01 pCO2 pO2 HCO3 ABG pH ABG Total CO2 ABG O2 Saturation ABG Base Excess ABG Potassium Glucose Lactate FiO2 Sodium 127 L Potassium 5.2 H Chloride 90 L Carbon Dioxide 11 L Anion Gap 31 H BUN 54 H Creatinine 8.8 H* Est GFR ( Amer) 8 Est GFR (Non-Af Amer) 6 POC Glucose (mg/dL) Random Glucose 544 H* D Hemoglobin A1c 7.6 H Calcium 6.7 L* Phosphorus 11.0 H Magnesium 1.7 Total Bilirubin 1.1 Direct Bilirubin AST 182 H ALT 122 H Alkaline Phosphatase 57 Troponin I 34.50 H* Total Protein 5.9 Albumin 3.5 Globulin 2.4 Albumin/Globulin Ratio 1.4 Triglycerides Cholesterol LDL Cholesterol Direct HDL Cholesterol Arterial Blood Potassium 02/19/18 02/19/18 02/19/18 06:00 06:10 08:09 WBC RBC Hgb Hct MCV MCH MCHC RDW Plt Count MPV Gran % Lymph % (Auto) [place] % (Auto) Eos % (Auto) Baso % (Auto) Gran # Lymph # (Auto) [place] # (Auto) Eos # (Auto) Baso # (Auto) pCO2 pO2 HCO3 ABG pH ABG Total CO2 ABG O2 Saturation ABG Base Excess ABG Potassium Glucose Lactate FiO2 Sodium Potassium Chloride Carbon Dioxide Anion Gap BUN Creatinine Est GFR ( Amer) Est GFR (Non-Af Amer) POC Glucose (mg/dL) 274 H 316 H Random Glucose Hemoglobin A1c Calcium Phosphorus Magnesium Total Bilirubin Direct Bilirubin 1.1 H AST ALT Alkaline Phosphatase Troponin I Total Protein Albumin Globulin Albumin/Globulin Ratio Triglycerides 119 Cholesterol 65 L LDL Cholesterol Direct < 30 HDL Cholesterol 24 L Arterial Blood Potassium 02/19/18 02/19/18 02/19/18 08:15 08:40 13:51 WBC RBC Hgb Hct MCV MCH MCHC RDW Plt Count MPV Gran % Lymph % (Auto) [place] % (Auto) Eos % (Auto) Baso % (Auto) Gran # Lymph # (Auto) [place] # (Auto) Eos # (Auto) Baso # (Auto) pCO2 30 L pO2 270.0 H HCO3 16.2 L ABG pH 7.34 L ABG Total CO2 17.1 L ABG O2 Saturation 99.5 H ABG Base Excess -8.3 L ABG Potassium 5.5 H Glucose 279 H Lactate 4.2 H* FiO2 100.0 Sodium 132 127.0 L Potassium 5.7 H* Chloride 94 L 97.0 L Carbon Dioxide 18 L Anion Gap 26 H BUN 60 H Creatinine 10.7 H* D Est GFR ( Amer) 6 Est GFR (Non-Af Amer) 5 POC Glucose (mg/dL) 143 H Random Glucose 273 H Hemoglobin A1c Calcium 6.9 L* Phosphorus Magnesium Total Bilirubin 0.5 Direct Bilirubin AST 243 H D ALT 131 H Alkaline Phosphatase 64 Troponin I Total Protein 5.9 Albumin 3.4 Globulin 2.5 Albumin/Globulin Ratio 1.4 Triglycerides Cholesterol LDL Cholesterol Direct HDL Cholesterol Arterial Blood Potassium 5.5 H Assessment & Plan - Assessment and Plan (Free Text) Assessment: 57 year old male with history of CAD stents, CABG, DM, ESRD on HD who is s/p cardiopulmonary arrest x2. He is intubated. He had a pacemaker placed earlier today. EF 30-35%. He is scheduled for transfer to [facility] for emergent dialysis The patient is known to me from previous admission in . At that time patient and I discussed goals of care and advance care planning. The patient understood the benefits and burdens of CPR/intubation and was clear that he did not want to be resuscitated. POLST: DNR/DNI completed at that time. A copy is in the chart. Patient's friend Flex Desai named as health care surrogate Flex Desai contacted via phone Flex, states he was unaware that he had been elected as [facility]s health care surrogate. Flex states he is willing to be surrogate for his friend. Explained medical situation. Flex states that he has spoken with Manuel in the past and knows that he did not want to have aggressive measures to prolong life. Flex unable to come to the hospital as he is in [place]. He intends to speak with custom tailor apprentice before making any decision regarding withdrawal of care. Time spent with surrogate in goal of care discussion, 15 minutes Plan: DNR/DNO Goals of care discussion Cardiac: S/p ACLS, continue dobutamine, vaspressors, s/p pacemaker placment, MAP >65 Pulmonary: Continue ventilator support Renal; ESRD, transfer to [facility] for emergent HD
[2018-02-19 15:52] VITALS: BP 106/65; PULSE 59; O2SAT 99
--- NOTE | 2018-02-19 16:35 | CP.PCM.DIS ---
<Nancy Clemens - Last Filed: 02/19/18 17:05> Provider - Provider Date of Admission: 02/19/18 01:29 Attending physician: Lauren Godwin MD Primary care physician: NO FAMILY PROVIDER Consults: Cardiology: Baldemar Nephro: Tami Time Spent in preparation of Discharge (in minutes): 40 Hospital Course - Lab Results Lab Results: Most Recent Lab Values WBC 9.3 10^3/ul (4.5-11.0) D 02/19/18 06:00 RBC 3.66 10^6/uL (3.5-6.1) 02/19/18 06:00 Hgb 10.3 g/dL (14.0-18.0) L D 02/19/18 06:00 Hct 33.3 % (42.0-52.0) L 02/19/18 06:00 MCV 91.0 fl (80.0-105.0) 02/19/18 06:00 MCH 28.1 pg (25.0-35.0) 02/19/18 06:00 MCHC 30.9 g/dl (31.0-37.0) L 02/19/18 06:00 RDW 15.5 % (11.5-14.5) H 02/19/18 06:00 Plt Count 164 10^3/uL (120.0-450.0) 02/19/18 06:00 MPV 12.5 fl (7.0-11.0) H 02/19/18 06:00 Gran % 85.2 % (50.0-68.0) H 02/19/18 06:00 Lymph % (Auto) 6.1 % (22.0-35.0) L 02/19/18 06:00 [place] % (Auto) 8.5 % (1.0-6.0) H 02/19/18 06:00 Eos % (Auto) 0.1 % (1.5-5.0) L 02/19/18 06:00 Baso % (Auto) 0.1 % (0.0-3.0) 02/19/18 06:00 Gran # 7.92 (1.4-6.5) H 02/19/18 06:00 Lymph # (Auto) 0.6 (1.2-3.4) L 02/19/18 06:00 [place] # (Auto) 0.8 (0.1-0.6) H 02/19/18 06:00 Eos # (Auto) 0.0 (0.0-0.7) 02/19/18 06:00 Baso # (Auto) 0.01 K/mm3 (0.0-2.0) 02/19/18 06:00 PT 14.3 SECONDS (9.4-12.5) H 02/19/18 00:08 INR 1.25 (0.93-1.08) H 02/19/18 00:08 APTT 32.6 Seconds (25.1-36.5) 02/19/18 00:08 pCO2 30 mm/Hg (35-45) L 02/19/18 08:40 pO2 270.0 mm/Hg (80-100) H 02/19/18 08:40 HCO3 16.2 mmol/L (21-28) L 02/19/18 08:40 ABG pH 7.34 (7.35-7.45) L 02/19/18 08:40 ABG Total CO2 17.1 mmol.L (22-28) L 02/19/18 08:40 ABG O2 Saturation 99.5 % (95-98) H 02/19/18 08:40 ABG Base Excess -8.3 mmol/L (-2.0-3.0) L 02/19/18 08:40 ABG Potassium 5.5 mmol/L (3.6-5.2) H 02/19/18 08:40 Sodium 127.0 mmol/L (132-148) L 02/19/18 08:40 Chloride 97.0 mmol/L (98-107) L 02/19/18 08:40 Glucose 279 mg/dl (75-110) H 02/19/18 08:40 Lactate 4.2 mmol/L (0.7-2.1) H* 02/19/18 08:40 FiO2 100.0 % 02/19/18 08:40 Sodium 132 mmol/L (132-148) 02/19/18 08:15 Potassium 5.7 mmol/L (3.6-5.0) H* 02/19/18 08:15 Chloride 94 mmol/L (98-107) L 02/19/18 08:15 Carbon Dioxide 18 mmol/L (21-33) L 02/19/18 08:15 Anion Gap 26 (10-20) H 02/19/18 08:15 BUN 60 mg/dL (7-21) H 02/19/18 08:15 Creatinine 10.7 mg/dl (0.8-1.5) H* D 02/19/18 08:15 Est GFR ( Amer) 6 02/19/18 08:15 Est GFR (Non-Af Amer) 5 02/19/18 08:15 POC Glucose (mg/dL) 143 mg/dL (65-110) H 02/19/18 13:51 Random Glucose 273 mg/dL (70-110) H 02/19/18 08:15 Hemoglobin A1c 7.6 % (4.2-6.5) H 02/19/18 06:00 Calcium 6.9 mg/dL (8.4-10.5) L* 02/19/18 08:15 Phosphorus 11.0 mg/dL (2.5-4.5) H 02/19/18 06:00 Magnesium 1.7 mg/dL (1.7-2.2) 02/19/18 06:00 Total Bilirubin 0.5 mg/dL (0.2-1.3) 02/19/18 08:15 Direct Bilirubin 1.1 mg/dL (0.0-0.4) H 02/19/18 06:00 AST 243 U/L (17-59) H D 02/19/18 08:15 ALT 131 U/L (7-56) H 02/19/18 08:15 Alkaline Phosphatase 64 U/L (38-126) 02/19/18 08:15 Lactate Dehydrogenase 1476 U/L (333-699) H 02/19/18 00:08 Total Creatine Kinase 987 U/L (35-230) H 02/19/18 00:08 CK-MB (CK-2) 40.0 ng/mL (0.0-3.6) H 02/19/18 00:08 CK-MB (CK-2) % 4.1 % (2.5-3.0) H 02/19/18 00:08 Troponin I 34.50 ng/mL H* 02/19/18 06:00 NT-Pro-B Natriuret Pep 47473 pg/mL (0-450) H 02/19/18 00:08 Total Protein 5.9 g/dL (5.8-8.3) 02/19/18 08:15 Albumin 3.4 g/dL (3.0-4.8) 02/19/18 08:15 Globulin 2.5 gm/dL 02/19/18 08:15 Albumin/Globulin Ratio 1.4 (1.1-1.8) 02/19/18 08:15 Triglycerides 119 mg/dL (35-160) 02/19/18 06:00 Cholesterol 65 mg/dL (130-200) L 02/19/18 06:00 LDL Cholesterol Direct < 30 mg/dL (0-129) 02/19/18 06:00 HDL Cholesterol 24 mg/dL (29-60) L 02/19/18 06:00 Arterial Blood Potassium 5.5 mmol/L (3.6-5.2) H 02/19/18 08:40 - Hospital Course Hospital Course: HPI: Patient is a 57yo male PMHx ESRD on HD (Mon//Mon), DM type 2 on insulin , [place] x3, CAD s/p 3 stents and CABG, HTN, peripheral neuropathy and gastroparesis BIBA for SOB. As per ER note patient was awake and talking at first but then became unresponsive and bradycardic with agonal respirations. Patient coded and ACLS protocol was initiated. ROSC was achieved s/p 2 Epi. Patient was then intubated. However he started to become bradycardic again and arrested and ACLS protocol was initiated again. ROSC was achieved s/p 1 Epi. Patient was stabilized and transferred to MICU. Hospital Course: Patient was admitted to the ICU s/p cardiac arrest and intubation. Patient found to be in complete heart block and cardiogenic shock. Patient was started on Dobutamine drip. CT head showed no acute intracranial abnormality, old lacunar infarctions of right caudate head, right thalamus and left basal ganglia (see full report). Patient found to have elevated postassium. EKG revealed peaked T waves. Patient was given Calcium Gluconate, Kayexylate, Insulin. Troponin was elevated at 30.70 and trending up to 34.50. [facility] was called at 11:50am on 02/19/18. Patient was taken for cardiac catherization (see full report), temporary pacemaker was placed. For Leukocytosis, septic workup sent. Patient was started on IV antibiotics. ID was on consult. Patient also with elevated LFTs and t bili. GI was on consult. Palliative care was consulted, Patient was found to have a DNR\DNI form as of April 2017, which unfortunately was not known to our medical personnel. As patient in need of dialysis, which is not available at this time, he was transferred to [facility] for further management. Discharge Exam - Head Exam Head Exam: ATRAUMATIC, NORMAL INSPECTION, NORMOCEPHALIC - ENT Exam ENT Exam: Mucous Membranes Moist - Neck Exam Neck exam: Full Rom - Respiratory Exam Respiratory Exam: Decreased Breath Sounds, Clear to PA & Lateral, NORMAL BREATHING PATTERN, UNREMARKABLE. absent: Rales, Rhonchi, Wheezes - Cardiovascular Exam Cardiovascular Exam: REGULAR RHYTHM, +S1, +S2 - GI/Abdominal Exam GI & Abdominal Exam: Normal Bowel Sounds, Soft. absent: Guarding, Rebound, Rigid, Tenderness - Rectal Exam Rectal Exam: Deferred - Exam Additional comments: Macias in place - Extremities Exam Additional comments: Right foot transmetatarsal amputation - Neurological Exam Additional comments: Intubated and Sedated - Psychiatric Exam Additional comments: Intubated and sedated - Skin Skin Exam: Normal Color Discharge Plan - Follow Up Plan Condition: CRITICAL Disposition: OTHER INSTITUTION Referrals: FAMILY PROVIDER,NO [Primary Care Provider] - <Lauren Godwin - Last Filed: 02/20/18 11:37> Provider - Provider Date of Admission: 02/19/18 01:29 Attending physician: Lauren Godwin MD Primary care physician: DEBORAH FAMILY PROVIDER Hospital Course - Lab Results Lab Results: Micro Results 02/19/18 06:00 Blood-Venous Blood Culture - Preliminary NO GROWTH AFTER 24 HOURS 02/19/18 05:30 Blood-Venous Blood Culture - Preliminary NO GROWTH AFTER 24 HOURS 02/19/18 02:51 Naris MRSA Culture (Admit) - Final MRSA NOT DETECTED Most Recent Lab Values WBC 9.3 10^3/ul (4.5-11.0) D 02/19/18 06:00 RBC 3.66 10^6/uL (3.5-6.1) 02/19/18 06:00 Hgb 10.3 g/dL (14.0-18.0) L D 02/19/18 06:00 Hct 33.3 % (42.0-52.0) L 02/19/18 06:00 MCV 91.0 fl (80.0-105.0) 02/19/18 06:00 MCH 28.1 pg (25.0-35.0) 02/19/18 06:00 MCHC 30.9 g/dl (31.0-37.0) L 02/19/18 06:00 RDW 15.5 % (11.5-14.5) H 02/19/18 06:00 Plt Count 164 10^3/uL (120.0-450.0) 02/19/18 06:00 MPV 12.5 fl (7.0-11.0) H 02/19/18 06:00 Gran % 85.2 % (50.0-68.0) H 02/19/18 06:00 Lymph % (Auto) 6.1 % (22.0-35.0) L 02/19/18 06:00 [place] % (Auto) 8.5 % (1.0-6.0) H 02/19/18 06:00 Eos % (Auto) 0.1 % (1.5-5.0) L 02/19/18 06:00 Baso % (Auto) 0.1 % (0.0-3.0) 02/19/18 06:00 Gran # 7.92 (1.4-6.5) H 02/19/18 06:00 Lymph # (Auto) 0.6 (1.2-3.4) L 02/19/18 06:00 [place] # (Auto) 0.8 (0.1-0.6) H 02/19/18 06:00 Eos # (Auto) 0.0 (0.0-0.7) 02/19/18 06:00 Baso # (Auto) 0.01 K/mm3 (0.0-2.0) 02/19/18 06:00 PT 14.3 SECONDS (9.4-12.5) H 02/19/18 00:08 INR 1.25 (0.93-1.08) H 02/19/18 00:08 APTT 32.6 Seconds (25.1-36.5) 02/19/18 00:08 pCO2 30 mm/Hg (35-45) L 02/19/18 08:40 pO2 270.0 mm/Hg (80-100) H 02/19/18 08:40 HCO3 16.2 mmol/L (21-28) L 02/19/18 08:40 ABG pH 7.34 (7.35-7.45) L 02/19/18 08:40 ABG Total CO2 17.1 mmol.L (22-28) L 02/19/18 08:40 ABG O2 Saturation 99.5 % (95-98) H 02/19/18 08:40 ABG Base Excess -8.3 mmol/L (-2.0-3.0) L 02/19/18 08:40 ABG Potassium 5.5 mmol/L (3.6-5.2) H 02/19/18 08:40 Sodium 127.0 mmol/L (132-148) L 02/19/18 08:40 Chloride 97.0 mmol/L (98-107) L 02/19/18 08:40 Glucose 279 mg/dl (75-110) H 02/19/18 08:40 Lactate 4.2 mmol/L (0.7-2.1) H* 02/19/18 08:40 FiO2 100.0 % 02/19/18 08:40 Sodium 132 mmol/L (132-148) 02/19/18 08:15 Potassium 5.7 mmol/L (3.6-5.0) H* 02/19/18 08:15 Chloride 94 mmol/L (98-107) L 02/19/18 08:15 Carbon Dioxide 18 mmol/L (21-33) L 02/19/18 08:15 Anion Gap 26 (10-20) H 02/19/18 08:15 BUN 60 mg/dL (7-21) H 02/19/18 08:15 Creatinine 10.7 mg/dl (0.8-1.5) H* D 02/19/18 08:15 Est GFR ( Amer) 6 02/19/18 08:15 Est GFR (Non-Af Amer) 5 02/19/18 08:15 POC Glucose (mg/dL) 143 mg/dL (65-110) H 02/19/18 13:51 Random Glucose 273 mg/dL (70-110) H 02/19/18 08:15 Hemoglobin A1c 7.6 % (4.2-6.5) H 02/19/18 06:00 Calcium 6.9 mg/dL (8.4-10.5) L* 02/19/18 08:15 Phosphorus 11.0 mg/dL (2.5-4.5) H 02/19/18 06:00 Magnesium 1.7 mg/dL (1.7-2.2) 02/19/18 06:00 Total Bilirubin 0.5 mg/dL (0.2-1.3) 02/19/18 08:15 Direct Bilirubin 1.1 mg/dL (0.0-0.4) H 02/19/18 06:00 AST 243 U/L (17-59) H D 02/19/18 08:15 ALT 131 U/L (7-56) H 02/19/18 08:15 Alkaline Phosphatase 64 U/L (38-126) 02/19/18 08:15 Lactate Dehydrogenase 1476 U/L (333-699) H 02/19/18 00:08 Total Creatine Kinase 987 U/L (35-230) H 02/19/18 00:08 CK-MB (CK-2) 40.0 ng/mL (0.0-3.6) H 02/19/18 00:08 CK-MB (CK-2) % 4.1 % (2.5-3.0) H 02/19/18 00:08 Troponin I 34.50 ng/mL H* 02/19/18 06:00 NT-Pro-B Natriuret Pep 10033 pg/mL (0-450) H 02/19/18 00:08 Total Protein 5.9 g/dL (5.8-8.3) 02/19/18 08:15 Albumin 3.4 g/dL (3.0-4.8) 02/19/18 08:15 Globulin 2.5 gm/dL 02/19/18 08:15 Albumin/Globulin Ratio 1.4 (1.1-1.8) 02/19/18 08:15 Triglycerides 119 mg/dL (35-160) 02/19/18 06:00 Cholesterol 65 mg/dL (130-200) L 02/19/18 06:00 LDL Cholesterol Direct < 30 mg/dL (0-129) 02/19/18 06:00 HDL Cholesterol 24 mg/dL (29-60) L 02/19/18 06:00 Arterial Blood Potassium 5.5 mmol/L (3.6-5.2) H 02/19/18 08:40 Attending/Attestation - Attestation I have personally seen and examined this patient.: Yes I have fully participated in the care of the patient.: Yes I have reviewed all pertinent clinical information, including history, physical exam and plan: Yes Notes (Text): 02/20/18 11:28 Attending note; Patient seen and examined with resident in ICU. Patient is intubated. On dobutamine drip. Patient is a 57yo male with past medical history of end-stage renal disease on dialysis (Mon//Mon), noncompliance with follow-up,DM type 2 on insulin, [place] x3, CAD s/p 3 stents and CABG, HTN, peripheral neuropathy and gastroparesis is admitted for shortness of breath. Patient was intubated in the ER. Patient had cardiopulmonary resuscitation twice in the ER. Currently intubated. Continue dobutamine dp. Case discussed with curing press operator in detail. Status post cath without any significant coronary disease. End-stage renal disease on dialysis. last dialysis was Monday. Patient has mildly elevated potassium level. Got 1 dose of calcium gluconate, D50 and insulin and IV bicarbonate. 1 dose Kayexalate given. Patient will be transferred to [facility] for hemodialysis today. Case discussed with bakery demonstrator in detail. Patient was also evaluated by marcia ifne palliative care nurse. Initially we were not able to reach next of kin [employer]ai. The patient is known to Marcia the palliative care nurse from previous admission in . At that time patient discussed goals of care and advance care planning. The patient understood the benefits and burdens of CPR/ intubation and was clear that he did not want to be resuscitated. POLST: DNR/ DNI completed at that time. A copy is in the chart. Patient's friend Flex Desai named as health care surrogate. but patient continued to have hemodialysis. Later we spoke to [employer] healthcare surrogate at [phone]. He agreed with the the dialysis treatment. He will visit the patient on Monday to make further decision depending upon the hospital course. Patient is DNI DNR now. No more cardiac resuscitation. Health Proxy will make decision about weaning later. Time spent over 2 hours discussing with multiple consultants, executive secretary social welfare, manager case and hospital firewall administrator. The the diagnosis, treatment plan discussed with hospitalist at [facility] in detail.
--- NOTE | 2018-02-19 17:03 | CARD ---
APPROVED REPORT EXAM: Two-dimensional and M-mode echocardiogram with Doppler and color Doppler. INDICATION Chest Pain CODE HEART 2D DIMENSIONS Left Atrium (2D)5.2 (1.6-4.0cm)IVSd1.8 (0.7-1.1cm) LVDd5.2 (3.9-5.9cm)PWd1.8 (0.7-1.1cm) LVDs4.5 (2.5-4.0cm)FS (%) 14.3 % LVEF (%)30.2 (>50%) M-Mode DIMENSIONS Aortic Root3.30 (2.2-3.7cm)Aortic Cusp Exc.1.70 (1.5-2.0cm) Aortic Valve AoV Peak Cyxiddqv984.0cm/Snuny Peak GR.8mmHg Mitral Valve MV E Yszrewzm94.4cm/sMV A Izhrhmkl64.1cm/sE/A ratio1.2 TDI Lateral E' Peak V10.00cm/sMedial E' Peak V7.99cm/sE/Lateral E'8.4 E/Medial E'10.6 Pulmonary Valve PV Peak Xntqdfdo15.5cm/sPV Peak Grad.2mmHg Tricuspid Valve TR Peak Mhfrwjqz984gm/sRAP VJWPZKJT57iaFbWG Peak Gr.13mmHg [id number] LEFT VENTRICLE The left ventricle is normal size. There is moderate concentric left ventricular hypertrophy. The systolic function is moderately impaired.EF-30% There is moderate to severe hypokinesis in the apical anterior wall. Transmitral Doppler flow pattern is Grade II-pseudonormal filling dynamics. No left ventricle thrombus noted on this study. There is no ventricular septal defect visualized. There is no left ventricular aneurysm. There is no mass noted in the left ventricle. RIGHT VENTRICLE The right ventricle is mildly dilated. There is normal right ventricular wall thickness. Systolic function is mildly reduced. ATRIA The left atrium is mildly dilated. The right atrium is mildly dilated. The interatrial septum is intact with no evidence for an atrial septal defect. AORTIC VALVE The aortic valve is thickened but opens well. No aortic regurgitation is present. There is no aortic valvular stenosis. There is no aortic valvular vegetation. MITRAL VALVE The mitral valve is thickened but opens well. Mitral regurgitation is trace. There is no mitral valve stenosis. There is no evidence of mitral valve prolapse. TRICUSPID VALVE The tricuspid valve leaflets are thickened , but open well. There is trace tricuspid regurgitation. There is no tricuspid valve stenosis. There is no tricuspid valve prolapse or vegetation. PULMONIC VALVE The pulmonary valve is normal in structure. There is no pulmonic valvular regurgitation. There is no pulmonic valvular stenosis. GREAT VESSELS The aortic root is normal in size. The ascending aorta is normal in size. The pulmonary artery is normal. The IVC is normal in size and collapses >50% with inspiration. PERICARDIAL EFFUSION There is no pleural effusion. There is no pericardial effusion. <Conclusion> The left ventricle is normal size. The systolic function is moderately impaired.EF-30% Mitral regurgitation is trace. There is trace tricuspid regurgitation. The IVC is normal in size and collapses >50% with inspiration. There is no pericardial effusion. S/p Cardiac arrest, S/p TVP and cardiac cath.
--- NOTE | 2018-02-19 22:39 | CARD ---
APPROVED REPORT EKG Measurement Heart [id number] P67 [id number] <Conclusion> Sinus rhythm with AV dissociation with Junctional or IdioVentricular rhythm Left axis deviation Left bundle branch block Abnormal ECG
--- NOTE | 2018-02-19 22:45 | CARD ---
APPROVED REPORT EKG Measurement Heart [id number] P71 [id number] <Conclusion> Sinus rhythm with AV dissociation with Junctional or IdioVentricular rhythm Left axis deviation Right bundle branch block Abnormal ECG
--- NOTE | 2018-02-20 09:26 | CON ---
SERVICE: Cardiology. DATE: 02/19/2018 REASON FOR THE CONSULTATION AND FOLLOWUP: Cardiogenic shock; heart block; coronary artery disease; CABG; end-stage renal disease, on dialysis. BRIEF CLINICAL HISTORY: This is a 57-year-old male with past medical history significant for diabetes; hypertension; hyperlipidemia; end-stage renal disease, on dialysis; coronary artery disease, status post CABG, status post stent; who was brought to the emergency room with complaint of shortness of breath. While the patient was in the ER, awake and alert on arrival, but later on the patient was unresponsive, bradycardic. CPR was done. Blood pressure was 140/60. Dobutrex started and emergent dialysis was attempted in the [facility], but the patient was unstable to go for dialysis, admitted to ICU. Troponin came back 30 and shows EKG complete heart block with heart rate of 50 and blood pressure of 105, on Dobutrex. Currently being intubated and sedated, not in apparent distress. PAST HISTORY: Significant for diabetes, hypertension, hyperlipidemia, peripheral neuropathy. Coronary artery disease 6 years ago, had a coronary artery bypass, prior to that the patient had a stent insertion. After the PTCA, the patient had a bypass. End-stage renal disease, on dialysis. Past history also significant for history of fall, history of CVA. PAST SURGICAL HISTORY: Significant for left knee surgery, amputation of the right foot, and coronary artery bypass as mentioned above. Possibly bypass by Dr. Dony Brooke. RECENT CARDIAC WORKUP: The patient had a MUGA scan done dated 04/22/2017, that showed ejection fraction of 55% . Prior to that, the patient had a stress test on 04/20/2017, that showed ejection fraction of . History of recent cardiac catheterization on 05/09/2017, by Dr. Fisher that revealed elongated lesion, 50% left main. LAD was proximally occluded, circumflex proximally suboccluded, RCA chronically occluded. Supravalvular aortic injection revealed no aortic insufficiency. SOTO to LAD found to be patent. Saphenous graft to OM1 found to be okay. SVG to posterolateral branch found to be patent. In summary, procedure revealed inferolateral hypokinesis, 50% triple vessel disease. Chronically occluded RCA, patent SOTO to LAD, patent saphenous graft to obtuse marginal 1, patent saphenous graft to posterolateral branch. Medical treatment recommended. Ejection fraction 50%, dated 05/10/2017, Dr. Fisher. Last echo on 03/26/2017, showed ejection fraction 48%. Last echo on 05/31/2018, showed ejection fraction calculated 51%. Normal segmental wall motion. No vegetation noted. SOCIAL HISTORY: Denies any history of alcohol abuse. ALLERGIES: THE PATIENT ALLERGIC TO SHELLFISH. FAMILY HISTORY: Nonsignificant. PERSONAL HISTORY: Used to drink very heavy, stopped 5 to 6 years ago. Smokes marijuana off and on. Denies any history of smoking. Information obtained from the chart. CURRENT MEDICATIONS: The patient is taking hydralazine 25 mg, amlodipine 5 mg, vitamin B complex, , Lopressor, losartan, , atorvastatin, aspirin. REVIEW OF SYSTEMS: As per HPI. PHYSICAL EXAMINATION: VITAL SIGNS: Temperature afebrile, heart rate 57, blood pressure 105/56. HEENT: PERRLA. Extraocular muscles intact. NECK: Supple. No carotid bruit. No thyromegaly. CHEST: Clear to auscultation. HEART: S1 and S2, regular. ABDOMEN: Soft. EXTREMITIES: Clubbing and cyanosis negative. The patient is intubated. LABORATORY DATA: EKG shows complete heart block, but on intrinsic ventricular escape rhythm, heart rate of 50. Blood workup: WBC 9.7, hemoglobin 10.7, hematocrit 33.3, platelet count 164. Chemistry shows sodium 127, potassium 5.2, chloride 90, carbon dioxide 11, BUN 54, creatinine 8.8. Troponin 30.7, repeat troponin 34.5. IMPRESSION: Status post respiratory failure; hyperkalemia; end-stage renal disease, on dialysis; coronary artery disease, coronary artery bypass graft prior, the patient had stent prior to the coronary artery bypass graft, after that 3-vessel bypass in 2011, by Dr. Dony Brooke; last catheterization in 2017, shows patent left internal mammary artery to left anterior descending, patent saphenous graft to obtuse marginal 1, patent saphenous graft to posterolateral branch, and left ventricular function decreased. Now, the patient has respiratory failure, intubated, cardiogenic shock, hyperkalemia, heart block. RECOMMENDATIONS: We will leave the patient intubated, leave on Dobutrex. If the patient is waking up, mentation is okay, we will do the cardiac catheterization and possible angioplasty and then dialysis and if needed, we will put the temporary venous pacemaker. We will follow with you. Overall, the patient's condition is critical. Long-term prognosis is extremely guarded. Discussed with intensivists. They will discuss with you. Thank you Dr. Fink, for providing us the opportunity in taking care of the patient, Manuel Lay. Corey Mcdermott MD
[2018-02-21] MEDS ORDERED: Azithromycin 500MG/NS 250ml 500 MG/250 ML BAG IVPB SCH (10:00)
== END 2018-02-19 15:40 | disposition short-term general hospital (02) | DRG 121 ==
LOC: ED 23:11 → ERH 02-19 01:29 → ICU 02-19 04:16
PROVIDERS: ADMIT Internal Medicine; ATTEND Internal Medicine
PROC: 5A1223Z Performance of Cardiac Pacing, Continuous (ICD-10-PCS; principal; 2018-02-19)
PROC: 4A023N7 Measurement of Cardiac Sampling and Pressure, Left Heart, Percutaneous Approach (ICD-10-PCS; 2018-02-19)
PROC: B2111ZZ Fluoroscopy of Multiple Coronary Arteries using Low Osmolar Contrast (ICD-10-PCS; 2018-02-19)
PROC: B2151ZZ Fluoroscopy of Left Heart using Low Osmolar Contrast (ICD-10-PCS; 2018-02-19)
PROC: 5A12012 Performance of Cardiac Output, Single, Manual (ICD-10-PCS; 2018-02-19)
PROC: 0BH17EZ Insertion of Endotracheal Airway into Trachea, Via Natural or Artificial Opening (ICD-10-PCS; 2018-02-19)
PROC: 5A1935Z Respiratory Ventilation, Less than 24 Consecutive Hours (ICD-10-PCS; 2018-02-19)
PROC: 06HN33Z Insertion of Infusion Device into Left Femoral Vein, Percutaneous Approach (ICD-10-PCS; 2018-02-19)
DX: I44.2 Atrioventricular block, complete (principal); I21.4 Non-ST elevation (NSTEMI) myocardial infarction; R57.0 Cardiogenic shock; J96.01 Acute respiratory failure with hypoxia; N18.6 End stage renal disease; I13.2 Hypertensive heart and chronic kidney disease with heart failure and with stage 5 chronic kidney disease, or end stage renal disease; E11.42 Type 2 diabetes mellitus with diabetic polyneuropathy; E11.22 Type 2 diabetes mellitus with diabetic chronic kidney disease; E87.2 Acidosis; E87.5 Hyperkalemia; I50.9 Heart failure, unspecified; E11.40 Type 2 diabetes mellitus with diabetic neuropathy, unspecified; E11.43 Type 2 diabetes mellitus with diabetic autonomic (poly)neuropathy; K31.84 Gastroparesis; I25.10 Atherosclerotic heart disease of native coronary artery without angina pectoris; Z99.2 Dependence on renal dialysis; I25.5 Ischemic cardiomyopathy; N25.81 Secondary hyperparathyroidism of renal origin; E83.39 Other disorders of phosphorus metabolism; F12.90 Cannabis use, unspecified, uncomplicated; E78.5 Hyperlipidemia, unspecified; R33.9 Retention of urine, unspecified; I67.9 Cerebrovascular disease, unspecified; Z66 Do not resuscitate; Z95.1 Presence of aortocoronary bypass graft; Z89.431 Acquired absence of right foot; Z95.5 Presence of coronary angioplasty implant and graft; Z86.73 Personal history of transient ischemic attack (TIA), and cerebral infarction without residual deficits; Z87.19 Personal history of other diseases of the digestive system; Z79.4 Long term (current) use of insulin; Z79.82 Long term (current) use of aspirin; Z80.0 Family history of malignant neoplasm of digestive organs

== ENCOUNTER 2018-03-08 06:46 | Emergency (ER) | payer MEDICAID ==
[2018-03-08 06:47] VITALS: BMI 28.8
--- NOTE | 2018-03-08 07:30 | ED PDOC ---
Arrival/HPI - General Chief Complaint: Shortness Of Breath Time Seen by Provider: 03/08/18 07:08 Historian: Patient - History of Present Illness Narrative History of Present Illness (Text): 03/08/18 07:15 57 year old male, whose PMH includes CHF, VT x3, CABG, CAD, hypertension, coronary stent, cardiac catheterization, CVA, diabetes, and pulmonary edema, who presents to the emergency department complaining of shortness of breath that becomes worse while sleeping. Patient reports having a recent VT and pacemaker placed one week ago and ever since this then his difficulty breathing has become worse. Patient notes lacking sleep due to this complaint. Patient denies fever, dizziness, abdominal pain, nausea, vomiting, diarrhea, headache, dysuria, or other complaints. PMD: Dr. Woodruff Time/Duration: 1 week Symptom Onset: Gradual Symptom Course: Worsening Activities at Onset: Rest Context: Home Past Medical History - Provider Review Nursing Documentation Reviewed: Yes - Infectious Disease Hx of Infectious Diseases: None - Tetanus Immunization Tetanus Immunization: Unknown - Cardiac Hx Cardiac Disorders: Yes (CAD, VT x 3, CABG x 3) Hx Congestive Heart Failure: Yes Hx Hypertension: Yes - Pulmonary Hx Respiratory Disorders: Yes Other/Comment: PULMONARY EDEMA - Neurological Hx Neurological Disorder: Yes (NEUROPATHY) HX Cerebrovascular Accident: Yes Hx Dizziness: Yes (SYNCOPE) - HEENT Hx HEENT Disorder: No (CONTACT LENSES) - Renal Date of Last Dialysis Treatment: 02/15/18 Hx Renal Failure: Yes - Endocrine/Metabolic Hx Endocrine Disorders: Yes Hx Diabetes Mellitus Type 2: Yes - Hematological/Oncological Hx Blood Disorders: No - Integumentary Hx Dermatological Disorder: Yes Other/Comment: righty lower ext rash, pt stated "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" - Musculoskeletal/Rheumatological Hx Falls: No - Gastrointestinal Hx Gastrointestinal Disorders: Yes (GASTROPARESIS) - Genitourinary/Gynecological Hx Genitourinary Disorders: Yes (URINARY RETENTION-OLIVERA) Hx Urinary Tract Infection: Yes - Psychiatric Hx Psychophysiologic Disorder: No Hx Emotional Abuse: No Hx Physical Abuse: No Hx Substance Use: Yes - Surgical History Hx Cardiac Catheterization: Yes Hx Cholecystectomy: Yes Hx Coronary Stent: Yes (3) Other/Comment: shunt rt arm,L HIP SX,L KNEE SX, - Anesthesia Hx Anesthesia: Yes Hx Anesthesia Reactions: No - Suicidal Assessment Feels Threatened In Home Enviroment: No Family/Social History - Physician Review Nursing Documentation Reviewed: Yes Family/Social History: Unknown Family HX Smoking Status: Current Some Days Smoker Hx Alcohol Use: Yes Hx Substance Use: Yes Hx Substance Use Treatment: No Allergies/Home Meds Allergies/Adverse Reactions: Allergies shellfish derived Allergy (Verified 03/08/18 07:05) ANAPHYLAXIS Seafood Allergy (Uncoded 03/08/18 07:05) ANAPHYLAXIS Home Medications: Home Meds Medication Instructions Recorded Confirmed Vit B Cmplx 3/Folic AC/C/Biot 1 tab PO DAILY 01/01/18 03/08/18 [Mame-Eleni Rx Tablet] Sevelamer [Renagel] 1,600 mg PO TID 01/02/18 03/08/18 Review of Systems - Physician Review All systems were reviewed & negative as marked: Yes - Review of Systems Constitutional: Fatigue. absent: Fevers Respiratory: SOB Cardiovascular: Chest Pain (mild ) Gastrointestinal: absent: Abdominal Pain Physical Exam - Physical Exam Narrative Physical Exam (Text): 03/08/18 Gen: VS reviewed, lethargic, falls asleep mid-sentence, nontoxic, mild distress. ENT: normal pharynx. Eye: EOMI, PERRL. Neck: no JVD, supple, no adenopathy. CV: (+) irregular rate, no rubs, no murmur, no gallops, S1, S2, pulses equal and strong. Pulm: (+) apneic, clear to auscultation, no wheeze, no rhonchi, breath sounds equal, no rales. Abd: soft, nontender, no guarding, no rebound, no rigidity, normal bowel sounds. Ext: (+) pedal edema. (+) erythema on left posterior forearm consistent with cellulitis. Skin: good color, no rash, no cyanosis. Psych: responds appropriately to questions, normal affect. Neuro: oriented x 3, CN2-12 intact grossly, motor intact, sensation intact. Vital Signs Reviewed: Yes Vital Signs Temp Pulse Resp BP Pulse Ox 03/08/18 10:55 97.9 F 80 20 93/54 L 100 03/08/18 07:51 18 100 03/08/18 07:14 97.2 F L 80 18 101/43 L 98 Temperature: Hypothermic Blood Pressure: Hypotensive Pulse: Regular Respiratory Rate: Normal Appearance: Positive for: Well-Appearing, Non-Toxic, Comfortable Pain Distress: None Mental Status: Positive for: Alert and Oriented X 3 Medical Decision Making ED Course and Treatment: 03/08/18 07:36 Impression: 57 year old male with irregular rhythm, pedal edema, lethargic appearance and apneic breathing, complaining of shortness of breath mainly during sleep. Differential Diagnosis included but are not limited to: sleep apnea Plan: -- Labs -- Chest X-ray -- Nasal canal -- Reassess and disposition Progress Notes: Afib @ 80 bpm, nml qrs, nml axis, no acture sttw abn. 03/08/18 07:07 Afib @ 81 frequent pbc's, 100% ventricular pacing. 03/08/18 08:10 Chest X-ray: Creator : Nikita Freedman MD COMPARISON: 02/19/2018 FINDINGS: LUNGS: No active pulmonary disease. PLEURA: No significant pleural effusion identified, no pneumothorax apparent. CARDIOVASCULAR: Severe cardiomegaly. OSSEOUS STRUCTURES: Sternal wires VISUALIZED UPPER ABDOMEN: Normal. OTHER FINDINGS: None. IMPRESSION: No active disease. 03/08/18 10:[address] Leonel Salcido from [facility] who is aware of plan and accepts patient for transfer. 03/08/18 10:40 1035: case discussed and accepted for transfer, ED to ED, to Dr. Cisse. Patient to be transferred to [facility] as per hospital protocol. Patient will require urgent dialysis. 0905: Case discussed with Dr. Garrett, nephrology, agrees with transfer and will assist arrangement. 03/08/18 11:03 ED course: patient was seen for what was presumed to symptoms typical for ANA MARIA as the patient is somnolent during initial interview. As per Dr. Garrett who knows the patient well states that the patient is chronically sleepy and usually sleeps during HD. Dr. Garrett also reports that the patient has been on po abx for a left fprearm cellulitis which appears to be getting worse. Patient found to have a elevated potassium and tx with cocktail. Patient also has elevated troponin which may likely be residual from resent ACS at the end of january. Patient remained stable throughotu ED course. Transfer accepted to [facility] ED for inpatient HD not available at this hospital. - Critical Care Critical Care Minutes: 60 minutes - Lab Interpretations Lab Results: 03/08/18 07:48 03/08/18 07:48 Lab Results 03/08/18 07:48: Alcohol, Quantitative < 10 03/08/18 07:48: Sodium 134, Potassium 6.1 H*, Chloride 95 L, Carbon Dioxide 17 L , Anion Gap 28 H, BUN 101 H, Creatinine 10.5 H*, Est GFR ( Amer) 6, Est GFR (Non-Af Amer) 5, Random Glucose 215 H, Calcium 8.4, Magnesium 1.8, Total Bilirubin 0.4, AST 25, ALT 23, Alkaline Phosphatase 116, Troponin I 4.10 H* D, NT-Pro-B Natriuret Pep 25310 H, Total Protein 6.6, Albumin 3.6, Globulin 3.0, Albumin/Globulin Ratio 1.2 03/08/18 07:48: PT 14.3 H, INR 1.24 H, APTT 30.1 03/08/18 07:48: WBC 7.2 D, RBC 3.44 L, Hgb 9.7 L, Hct 29.5 L, MCV 85.8 D, MCH 28.2, MCHC 32.9, RDW 15.3 H, Plt Count 207, MPV 11.3 H, Gran % 73.5 H, Lymph % ( Auto) 18.3 L, [place] % (Auto) 4.8, Eos % (Auto) 2.7, Baso % (Auto) 0.7, Gran # 5.26, Lymph # (Auto) 1.3, [place] # (Auto) 0.3, Eos # (Auto) 0.2, Baso # (Auto) 0.05 03/08/18 07:30: Phosphorus 8.4 H I have reviewed the lab results: Yes - RAD Interpretation Radiology Orders: 03/08/18 07:21 CHEST PORTABLE [RAD] Stat Coiler: Radiologist - EKG Interpretation EKG Interpretation (Text): 03/08/18 11:35 0948: atrial fibrillation at 80 bpm, 100% ventricular paced rhythm, no ectopy 0707: atrial fibrillation at 81 bpm, frequent pvc's, ventricular paced rhythm Interpreted by ED Physician: Yes Type: 12 lead EKG - Medication Orders Current Medication Orders: Vancomycin HCl 1.5 gm/ Sodium (Chloride) 500 mls @ 167 mls/hr IVPB ONCE ONE Stop: 03/08/18 13:29 Discontinued Medications Dextrose (Dextrose 50% Inj) 50 ml IVP STAT STA Stop: 03/08/18 09:03 Last Admin: 03/08/18 10:36 Dose: 50 ml IVP Administration Document 03/08/18 10:36 [email or web address] (Rec: 03/08/18 10:36 [email or web address] [id number]) Charges for Administration # of IVP Administrations 1 Calcium Gluconate 1,000 mg/ (Sodium Chloride) 110 mls @ 110 mls/hr IVPB ONCE ONE Stop: 03/08/18 10:14 Last Admin: 03/08/18 10:54 Dose: 110 mls/hr eMAR Start Stop Document 03/08/18 10:54 [email or web address] (Rec: 03/08/18 10:54 [email or web address] [id number]) Intravenous Solution Start Date 03/08/18 Start Time 10:54 End Date 03/08/18 Piperacillin Sod/Tazobactam Sod (Zosyn 2.25 Gm In 0.9% 100 Ml) 2.25 gm in 100 mls @ 100 mls/hr IVPB STAT STA PRN Reason: Protocol Stop: 03/08/18 11:25 Insulin Human Regular (Humulin R) 10 units IV STAT STA Stop: 03/08/18 09:04 Last Admin: 03/08/18 10:36 Dose: 10 unit eMAR Start Stop Document 03/08/18 10:36 [email or web address] (Rec: 03/08/18 10:36 [email or web address] [id number]) Intravenous Solution Start Date 03/08/18 Start Time 10:36 End Date 03/08/18 Sodium Polystyrene Sulfonate (Kayexalate Susp) 30 gm PO STAT STA Stop: 03/08/18 08:26 Last Admin: 03/08/18 10:31 Dose: 30 gm - Scribe Statement The provider has reviewed the documentation as recorded by the Tamara Shell Provider Scribe Attestation: All medical record entries made by the Scribe were at my direction and personally dictated by me. I have reviewed the chart and agree that the record accurately reflects my personal performance of the history, physical exam, medical decision making, and the department course for this patient. I have also personally directed, reviewed, and agree with the discharge instructions and disposition. Disposition/Present on Arrival - Present on Arrival Any Indicators Present on Arrival: No History of DVT/PE: No History of Uncontrolled Diabetes: Yes Urinary Catheter: Yes History of Decub. Ulcer: No History Surgical Site Infection Following: None - Disposition Have Diagnosis and Disposition been Completed?: Yes Diagnosis: Hyperkalemia, Left arm cellulitis, End stage renal disease, Hemodialysis status Disposition: Transfer [facility] Disposition Time: 11:08 Patient Plan: [facility] Patient Problems: Current Active Problems Problem Status Onset Hyperkalemia Acute Left arm cellulitis Acute End stage renal disease Acute Hemodialysis status Acute Condition: FAIR Discharge Instructions (ExitCare): Cellulitis (ED) Referrals: Louise Bourne MD [Primary Care Provider] - Follow up with primary Forms: [employer] (Ukrainian)
[2018-03-08 07:56] LABS: BASO # 0.05 K/mm3 (0.0-2.0); BASO % 0.7 % (0.0-3.0); EOS # 0.2 (0.0-0.7); EOS % 2.7 % (1.5-5.0); GRAN # 5.26 (1.4-6.5); GRAN % 73.5 % (50.0-68.0); HEMOGLOBIN 9.7 g/dL (14.0-18.0); LYMPH # 1.3 (1.2-3.4); LYMPH % 18.3 % (22.0-35.0); MEAN CELL VOLUME 85.8 fl (80.0-105.0); MEAN CORPUSCULAR HEMOGLOBIN 28.2 pg (25.0-35.0); MEAN CORPUSCULAR HGB CONC 32.9 g/dl (31.0-37.0); MEAN PLATELET VOLUME 11.3 fl (7.0-11.0); MONO # 0.3 (0.1-0.6); MONO % 4.8 % (1.0-6.0); RBC 3.44 10^6/uL (3.5-6.1); RED CELL DISTRIBUTION WIDTH 15.3 % (11.5-14.5); WHITE BLOOD COUNT 7.2 10^3/ul (4.5-11.0)
[2018-03-08 08:07] LABS: INR 1.24 (0.93-1.08); PARTIAL THROMBOPLASTIN TIME 30.1 Seconds (25.1-36.5); PROTHROMBIN TIME 14.3 SECONDS (9.4-12.5)
--- NOTE | 2018-03-08 08:08 | RAD ---
Date of service: 03/08/2018 HISTORY: dyspnea, CHF COMPARISON: 02/19/2018 FINDINGS: LUNGS: No active pulmonary disease. PLEURA: No significant pleural effusion identified, no pneumothorax apparent. CARDIOVASCULAR: Severe cardiomegaly. OSSEOUS STRUCTURES: Sternal wires VISUALIZED UPPER ABDOMEN: Normal. OTHER FINDINGS: None. IMPRESSION: No active disease.
[2018-03-08 08:16] LABS: ALB/GLOB RATIO 1.2 (1.1-1.8); ALBUMIN 3.6 g/dL (3.0-4.8); CALCIUM 8.4 mg/dL (8.4-10.5)
[2018-03-08] MEDS ORDERED: Sod Polystyrene Sulf 15 gm/60 ml Susp PO STA (08:25)
[2018-03-08 08:50] LABS: TROPONIN I 4.1 ng/mL
[2018-03-08] MEDS ORDERED: Dextrose 50% SYRINGE Inj (50 ml) IVP STA (09:02)
[2018-03-08] MEDS ORDERED: Insulin Regular 1 UNITS/0.01 ML ML IV STA (09:03)
[2018-03-08] MEDS ORDERED: Vancomycin 500 mg Inj IVPB STA (10:26)
[2018-03-08] MEDS ORDERED: Piperacillin/Tazobact 2.25gm 2.25 GM/100 ML BAG IVPB STA (10:26)
[2018-03-08] MEDS ORDERED: Vancomycin 1.5 GM in Sodium Chloride 0.9% 500 ML IVPB ONE (10:30)
[2018-03-08 10:56] VITALS: BP 93/54; TEMP 97.9
[2018-03-08 12:35] VITALS: PULSE 76; RESP 18; O2SAT 99
--- NOTE | 2018-03-08 19:40 | CARD ---
APPROVED REPORT Date of service: 03/08/2018 EKG Measurement Heart [id number] <Conclusion> Ventricular pacemaker rhythm Abnormal ECG
--- NOTE | 2018-03-08 19:50 | CARD ---
APPROVED REPORT Date of service: 03/08/2018 EKG Measurement Heart [id number] <Conclusion> Ventricular pacemaker rhythm with frequent premature ventricular complexes vs aberrantly conducted beats Abnormal ECG
== END 2018-03-08 12:35 | disposition short-term general hospital (02) ==
LOC: ED 06:46
DX: E87.5 Hyperkalemia (principal); L03.114 Cellulitis of left upper limb; I13.2 Hypertensive heart and chronic kidney disease with heart failure and with stage 5 chronic kidney disease, or end stage renal disease; I25.10 Atherosclerotic heart disease of native coronary artery without angina pectoris; I25.2 Old myocardial infarction; I50.9 Heart failure, unspecified; N18.6 End stage renal disease; E11.22 Type 2 diabetes mellitus with diabetic chronic kidney disease; Z86.73 Personal history of transient ischemic attack (TIA), and cerebral infarction without residual deficits; Z95.0 Presence of cardiac pacemaker; Z95.1 Presence of aortocoronary bypass graft; Z95.5 Presence of coronary angioplasty implant and graft; Z99.2 Dependence on renal dialysis; F17.210 Nicotine dependence, cigarettes, uncomplicated
CPT/HCPCS: 71045; 80053; 80320; 83735; 83880; 84100; 84484; 85025; 85610; 85730; 93005; 96374; 99283; J0610; J2543

== ENCOUNTER 2018-03-22 05:38 | Observation (INO) | payer MEDICAID ==
[2018-03-22 05:42] VITALS: BMI 26.6
--- NOTE | 2018-03-22 05:52 | ED PDOC ---
Arrival/HPI - General Historian: Patient - History of Present Illness Symptom Onset: Gradual Symptom Course: Unchanged Activities at Onset: Light Context: Home - General Time Seen by Provider: 03/22/18 05:39 - History of Present Illness Narrative History of Present Illness (Text): 03/22/18 05:49 Manuel Lay is a 57 year old male, whose past medical history includes ESRD on hemodialysis, triple bypass graft, CAD s/p coronary stents, hypertension, diabetes, peripheral neuropathy, and gastroparesis, who presents to the emergency department brought in by EMS complaining of shortness of breath/ orthopnea today. Patient denies any any chest pain, cough, nausea, vomiting, headache, dizziness, or any other complaints. Patient states he was scheduled for hemodialysis later today. PMD: Dr. Bourne Atmospheric Technician: Dr. Garrett/Dr. Kwan ([facility]) Past Medical History - Provider Review Nursing Documentation Reviewed: Yes - Infectious Disease Hx of Infectious Diseases: None - Tetanus Immunization Tetanus Immunization: Unknown - Cardiac Hx Cardiac Disorders: Yes (Coronary stent, CABG, CAD, Cardia Arrhythmia,) Hx Congestive Heart Failure: Yes Hx Hypertension: Yes - Pulmonary Hx Respiratory Disorders: Yes Other/Comment: PULMONARY EDEMA - Neurological HX Cerebrovascular Accident: Yes - HEENT Hx HEENT Disorder: No (CONTACT LENSES) - Renal Hx Renal Failure: Yes (CKD, ESRD) - Endocrine/Metabolic Hx Diabetes Mellitus Type 2: Yes - Hematological/Oncological Hx Anemia: Yes - Integumentary Hx Dermatological Disorder: Yes Other/Comment: righty lower ext rash, pt stated "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" - Musculoskeletal/Rheumatological Hx Falls: No - Gastrointestinal Hx Gastrointestinal Disorders: Yes (GASTROPARESIS) - Genitourinary/Gynecological Hx Genitourinary Disorders: Yes (URINARY RETENTION-OLIVERA) Hx Urinary Tract Infection: Yes - Psychiatric Hx Psychophysiologic Disorder: No Hx Emotional Abuse: No Hx Physical Abuse: No Hx Substance Use: Yes - Surgical History Hx Cholecystectomy: Yes Hx Coronary Artery Bypass Graft: Yes ( 2013) Hx Coronary Stent: Yes (3) - Anesthesia Hx Anesthesia: Yes Hx Anesthesia Reactions: No - Suicidal Assessment Feels Threatened In Home Enviroment: No Family/Social History - Physician Review Nursing Documentation Reviewed: Yes Family/Social History: Unknown Family HX Smoking Status: Former Smoker Hx Alcohol Use: Yes Hx Substance Use: Yes Hx Substance Use Treatment: No Allergies/Home Meds Allergies/Adverse Reactions: Allergies shellfish derived Allergy (Verified 03/22/18 05:48) ANAPHYLAXIS Seafood Allergy (Uncoded 03/22/18 05:48) ANAPHYLAXIS Home Medications: Home Meds Medication Instructions Recorded Confirmed Aspirin [Ecotrin] 81 mg PO DAILY 03/08/18 03/08/18 Atorvastatin [Lipitor] 40 mg PO DAILY 03/08/18 03/08/18 Calcium Acetate 667 mg PO TID 03/08/18 03/08/18 Gabapentin [Neurontin] 100 mg PO TID 03/08/18 03/08/18 Insulin Human Regular [HumuLIN R] 0 units SC QID 03/08/18 03/08/18 Isosorbide Mononitrate [Imdur] 60 mg PO DAILY 03/08/18 03/08/18 Lisinopril [Zestril] 5 mg PO DAILY 03/08/18 03/08/18 Losartan [Cozaar] 100 mg PO DAILY 03/08/18 03/08/18 Metoprolol Succinate 25 mg PO DAILY 03/08/18 03/08/18 Omeprazole 20 mg PO DAILY 03/08/18 03/08/18 Ondansetron [Zofran Odt] 4 mg PO Q4 PRN 03/08/18 03/08/18 Pantoprazole Sodium [Protonix] 40 mg PO DAILY 03/08/18 03/08/18 Sevelamer [Renagel] 800 mg PO TID 03/08/18 03/08/18 Tamsulosin HCl [Flomax] 0.4 mg PO DAILY 03/08/18 03/08/18 amLODIPine [Norvasc] 10 mg PO DAILY 03/08/18 03/08/18 cloNIDine [Catapres] 0.3 mg PO TID 03/08/18 03/08/18 hydrALAZINE [hydralazine 25 mg PO TID 03/08/18 03/08/18 Hydrochloride] Review of Systems - Physician Review All systems were reviewed & negative as marked: Yes - Review of Systems Constitutional: Normal. absent: Fevers Eyes: Normal ENT: Normal Respiratory: SOB. absent: Cough Cardiovascular: Orthopnea. absent: Chest Pain Gastrointestinal: Normal. absent: Abdominal Pain, Diarrhea, Nausea, Vomiting Genitourinary Male: Normal. absent: Dysuria, Frequency, Hematuria, Urinary Output Changes Musculoskeletal: Normal. absent: Back Pain, Neck Pain Skin: Normal. absent: Rash Neurological: Normal. absent: Headache, Dizziness Endocrine: Normal Hemo/Lymphatic: Normal Psychiatric: Normal Physical Exam Vital Signs Reviewed: Yes Temperature: Afebrile Blood Pressure: Normal Pulse: Regular Respiratory Rate: Normal Appearance: Positive for: Well-Appearing, Non-Toxic, Comfortable Pain Distress: None Mental Status: Positive for: Alert and Oriented X 3 - Systems Exam Head: Present: Atraumatic, Normocephalic Pupils: Present: PERRL Extroacular Muscles: Present: EOMI Conjunctiva: Present: Normal Mouth: Present: Moist Mucous Membranes Neck: Present: Normal Range of Motion Respiratory/Chest: Present: Rhonchi (Scattered rhonchi). No: Respiratory Distress, Accessory Muscle Use Cardiovascular: Present: Regular Rate and Rhythm, Normal S1, S2. No: Murmurs Abdomen: No: Tenderness, Distention, Peritoneal Signs Back: Present: Normal Inspection Upper Extremity: Present: Normal Inspection. No: Cyanosis, Edema Lower Extremity: Present: Normal Inspection. No: Edema Neurological: Present: GCS=15, CN II-XII Intact, Speech Normal Skin: Present: Warm, Dry, Normal Color. No: Rashes Psychiatric: Present: Alert, Oriented x 3, Normal Insight, Normal Concentration Vital Signs Pulse Resp BP Pulse Ox 03/22/18 05:57 20 95 03/22/18 05:56 98 H 18 161/96 H 95 Medical Decision Making - RAD Interpretation Software Developer Mid Level: ED Physician - EKG Interpretation Interpreted by ED Physician: Yes Type: 12 lead EKG ED Course and Treatment: 03/22/18 05:49 Impression: 57 year old male complaining of shortness of breath/orthopnea. Plan: -- EKG -- Chest X-Ray -- Labs, cardiac enzymes, BNP -- Reassess and disposition Prior Visits: Notes and results from previous visits were reviewed. On 03/08/2018, pt was transferred to [facility] for shortness of breath/ hemodialysis. Pt was admitted to the hospital for further evaluation. Progress Notes: 03/22/18 06:02 Reviewed EKG, sinus rhythm at 86 bpm. 1st degree AV block. LAD. RBBB. Lateral T- wave changes. Unchanged from 03/08/18. 03/22/18 07:00 Case endorsed to to follow patients hospitalization & discuss with hospitalist (Joshua Rogel) - Lab Interpretations Lab Results: 03/22/18 06:00 03/22/18 06:00 Lab Results 03/22/18 06:00: WBC 4.7 D, RBC 3.37 L, Hgb 9.3 L, Hct 29.5 L, MCV 87.5, MCH 27.6, MCHC 31.5, RDW 16.1 H, Plt Count 225, MPV 10.8 03/22/18 06:00: Sodium 140, Potassium 5.2 H, Chloride 100, Carbon Dioxide 25, Anion Gap 21 H, BUN 42 H, Creatinine 8.0 H* D, Est GFR ( Amer) 8, Est GFR (Non-Af Amer) 7, Random Glucose 167 H, Calcium 8.6, Total Bilirubin 0.3, AST 25, ALT 16, Alkaline Phosphatase 165 H D, Lactate Dehydrogenase 487, Total Creatine Kinase 74, Troponin I 0.50 H* D, NT-Pro-B Natriuret Pep 67204 H, Total Protein 6.6, Albumin 3.5, Globulin 3.1, Albumin/Globulin Ratio 1.1 03/22/18 06:00: PT 15.2 H, INR 1.31 H, APTT 33.2 - RAD Interpretation Narrative RAD Interpretations (Text): 03/22/18 06:40 CXR-Increased pulmonary vascular markings (Joshua Rogel) Radiology Orders: 03/22/18 05:57 CHEST PORTABLE [RAD] Stat - Medication Orders Current Medication Orders: Discontinued Medications Albuterol/Ipratropium (Duoneb 3 Mg/0.5 Mg (3 Ml) Ud) 3 ml IH ONCE STA Stop: 03/22/18 06:43 Furosemide (Lasix) 20 mg IVP ONCE ONE Stop: 03/22/18 07:00 - Scribe Statement The provider has reviewed the documentation as recorded by the Scribe - Scribe Statement Nidhi Shanks Provider Scribe Attestation: All medical record entries made by the Scribe were at my direction and personally dictated by me. I have reviewed the chart and agree that the record accurately reflects my personal performance of the history, physical exam, medical decision making, and the department course for this patient. I have also personally directed, reviewed, and agree with the discharge instructions and disposition. (Joshua Rogel) Disposition/Present on Arrival - Present on Arrival Any Indicators Present on Arrival: No History of DVT/PE: No History of Uncontrolled Diabetes: No Urinary Catheter: No History of Decub. Ulcer: No History Surgical Site Infection Following: None - Disposition Have Diagnosis and Disposition been Completed?: Yes Disposition Time: 07:01 Patient Plan: Observation - Disposition Diagnosis: ESRD on dialysis, Shortness of breath, CHF (congestive heart failure) Disposition: HOSPITALIZED Condition: STABLE
[2018-03-22 06:17] LABS: HEMOGLOBIN 9.3 g/dL (14.0-18.0); MEAN CELL VOLUME 87.5 fl (80.0-105.0); MEAN CORPUSCULAR HEMOGLOBIN 27.6 pg (25.0-35.0); MEAN CORPUSCULAR HGB CONC 31.5 g/dl (31.0-37.0); MEAN PLATELET VOLUME 10.8 fl (7.0-11.0); RBC 3.37 10^6/uL (3.5-6.1); RED CELL DISTRIBUTION WIDTH 16.1 % (11.5-14.5)
[2018-03-22 06:18] LABS: WHITE BLOOD COUNT 4.7 10^3/ul (4.5-11.0)
[2018-03-22 06:32] LABS: ALB/GLOB RATIO 1.1 (1.1-1.8); ALBUMIN 3.5 g/dL (3.0-4.8); CALCIUM 8.6 mg/dL (8.4-10.5)
[2018-03-22] MEDS ORDERED: Albuterol-Ipratrop 3 mg / 0.5 (3 ml) UD IH STA (06:42)
[2018-03-22 06:43] LABS: INR 1.31 (0.93-1.08); PARTIAL THROMBOPLASTIN TIME 33.2 Seconds (25.1-36.5); PROTHROMBIN TIME 15.2 SECONDS (9.4-12.5)
[2018-03-22 06:55] LABS: TROPONIN I 0.5 ng/mL
--- NOTE | 2018-03-22 08:07 | ED PDOC ---
Physical Exam Vital Signs Reviewed: Yes Vital Signs Pulse Resp BP Pulse Ox 03/22/18 07:42 161/69 H 03/22/18 05:57 20 95 03/22/18 05:56 98 H 18 161/96 H 95 Temperature: Afebrile Blood Pressure: Normal Pulse: Regular Respiratory Rate: Normal Appearance: Positive for: Well-Appearing, Non-Toxic, Comfortable Pain Distress: None Mental Status: Positive for: Alert and Oriented X 3 Medical Decision Making ED Course and Treatment: 03/22/18 08:01 Case endorsed to me by Dr. Rogel, to follow patients hospitalization & discuss with hospitalist. Case discussed with Dr. Godwin, hospitalist, who suggests discussing case with Dr. Bourne for dialysis. - Lab Interpretations Lab Results: 03/22/18 06:00 03/22/18 06:00 Lab Results 03/22/18 06:00: WBC 4.7 D, RBC 3.37 L, Hgb 9.3 L, Hct 29.5 L, MCV 87.5, MCH 27.6, MCHC 31.5, RDW 16.1 H, Plt Count 225, MPV 10.8 03/22/18 06:00: Sodium 140, Potassium 5.2 H, Chloride 100, Carbon Dioxide 25, Anion Gap 21 H, BUN 42 H, Creatinine 8.0 H* D, Est GFR ( Amer) 8, Est GFR (Non-Af Amer) 7, Random Glucose 167 H, Calcium 8.6, Total Bilirubin 0.3, AST 25, ALT 16, Alkaline Phosphatase 165 H D, Lactate Dehydrogenase 487, Total Creatine Kinase 74, Troponin I 0.50 H* D, NT-Pro-B Natriuret Pep 19807 H, Total Protein 6.6, Albumin 3.5, Globulin 3.1, Albumin/Globulin Ratio 1.1 03/22/18 06:00: PT 15.2 H, INR 1.31 H, APTT 33.2 - RAD Interpretation Radiology Orders: 03/22/18 05:57 CHEST PORTABLE [RAD] Stat - Medication Orders Current Medication Orders: Discontinued Medications Albuterol/Ipratropium (Duoneb 3 Mg/0.5 Mg (3 Ml) Ud) 3 ml IH ONCE STA Stop: 03/22/18 06:43 Last Admin: 03/22/18 07:42 Dose: 3 ml Furosemide (Lasix) 20 mg IVP ONCE ONE Stop: 03/22/18 07:00 Last Admin: 03/22/18 07:42 Dose: 20 mg MAR Blood Pressure Document 03/22/18 07:42 [email or web address] (Rec: 03/22/18 07:42 [email or web address] [id number]) Blood Pressure Blood Pressure (100/60-150/90 mm Hg) 161/69 IVP Administration Document 03/22/18 07:42 [email or web address] (Rec: 03/22/18 07:42 [email or web address] [id number]) Charges for Administration # of IVP Administrations 1 - Scribe Statement The provider has reviewed the documentation as recorded by the Scribe Laney Dietrich All medical record entries made by the Scribe were at my direction and personally dictated by me. I have reviewed the chart and agree that the record accurately reflects my personal performance of the history, physical exam, medical decision making, and the department course for this patient. I have also personally directed, reviewed, and agree with the discharge instructions and disposition. Disposition/Present on Arrival - Present on Arrival Any Indicators Present on Arrival: No History of DVT/PE: No History of Uncontrolled Diabetes: No Urinary Catheter: No History of Decub. Ulcer: No History Surgical Site Infection Following: None - Disposition Diagnosis: ESRD on dialysis, Shortness of breath, CHF (congestive heart failure) Disposition: HOSPITALIZED Patient Problems: Current Active Problems Problem Status Onset CHF (congestive heart failure) Acute ESRD (end stage renal disease) on dialysis Acute Shortness of breath Acute Condition: STABLE
[2018-03-22 08:52] VITALS: RESP 18
--- NOTE | 2018-03-22 09:17 | RAD ---
Date of service: 03/22/2018 HISTORY: sob COMPARISON: 03/08/2018 FINDINGS: LUNGS: Linear scar/atelactasis. PLEURA: No significant pleural effusion identified, no pneumothorax apparent. CARDIOVASCULAR: AICD. CABG. OSSEOUS STRUCTURES: No significant abnormalities. VISUALIZED UPPER ABDOMEN: Normal. OTHER FINDINGS: None. IMPRESSION: No active disease.
[2018-03-22 11:30] VITALS: TEMP 98.6
[2018-03-22] MEDS ORDERED: CALCIUM ACETATE 667 MG PO SCH (14:00)
[2018-03-22] MEDS ORDERED: Pneumococcal 23-Valent Vaccine IM ONE (14:01)
[2018-03-22 17:32] VITALS: O2SAT 96
[2018-03-22 18:55] VITALS: BP 146/90
--- NOTE | 2018-03-22 19:00 | CARD ---
APPROVED REPORT Date of service: 03/22/2018 EKG Measurement Heart [id number] <Conclusion> Sinus rhythm with 1st degree AV block Possible Left atrial enlargement Left axis deviation Right bundle branch block Anteroseptal infarct, age undetermined T wave abnormality, consider lateral ischemia Abnormal ECG
[2018-03-22 19:12] VITALS: PULSE 89
--- NOTE | 2018-03-22 19:35 | CP.PCM.HP ---
Past Patient History - Infectious Disease Hx of Infectious Diseases: None - Tetanus Immunizations Tetanus Immunization: Unknown - Past Medical History & Family History Past Medical History?: Yes - Past Social History Smoking Status: Never Smoked - CARDIAC Hx Cardiac Disorders: Yes (Coronary stent, CABG, CAD, Cardia Arrhythmia,) Hx Congestive Heart Failure: Yes Hx Hypertension: Yes - PULMONARY Hx Respiratory Disorders: Yes Other/Comment: PULMONARY EDEMA - NEUROLOGICAL Hx Neurological Disorder: Yes HX Cerebrovascular Accident: Yes - HEENT Hx HEENT Problems: No (CONTACT LENSES) - RENAL Hx Chronic Kidney Disease: Yes Hx Renal Failure: Yes (CKD, ESRD) - ENDOCRINE/METABOLIC Hx Endocrine Disorders: Yes Hx Diabetes Mellitus Type 2: Yes - HEMATOLOGICAL/ONCOLOGICAL Hx Anemia: Yes - INTEGUMENTARY Hx Dermatological Problems: Yes Other/Comment: righty lower ext rash, pt stated "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" - MUSCULOSKELETAL/RHEUMATOLOGICAL Hx Falls: Yes - GASTROINTESTINAL Hx Gastrointestinal Disorders: Yes (GASTROPARESIS) - GENITOURINARY/GYNECOLOGICAL Hx Genitourinary Disorders: Yes (URINARY RETENTION-OLIVERA) Hx Urinary Tract Infection: Yes - PSYCHIATRIC Hx Psychophysiologic Disorder: No Hx Emotional Abuse: No Hx Physical Abuse: No Hx Substance Use: No - SURGICAL HISTORY Hx Surgeries: Yes Hx Cholecystectomy: Yes Hx Coronary Stent: Yes (3) - ANESTHESIA Hx Anesthesia: Yes Hx Anesthesia Reactions: No Meds Home Medications: Home Medication List Medication Instructions Recorded Confirmed Type glyBURIDE [Micronase] 2.5 mg PO BRK #14 tab 03/22/18 Rx Allergies/Adverse Reactions: Allergies Allergy/AdvReac Type Severity Reaction Status Date / Time shellfish derived Allergy ANAPHYLAXIS Verified 03/22/18 11:35 Seafood Allergy ANAPHYLAXIS Uncoded 03/22/18 11:35 Results - Vital Signs Recent Vital Signs: Last Vital Signs Temp 98.6 F 03/22/18 13:33 Pulse 89 03/22/18 19:11 Resp 18 03/22/18 13:33 BP 146/90 03/22/18 19:11 Pulse Ox 96 03/22/18 09:15 - Labs Result Diagrams: 03/22/18 06:00 03/22/18 06:00 Labs: Laboratory Results - last 24 hr 03/22/18 03/22/18 03/22/18 08:50 11:01 15:15 POC Glucose (mg/dL) 157 H 203 H Troponin I 0.47 H* 03/22/18 18:17 POC Glucose (mg/dL) 138 H Troponin I
[2018-03-23] MEDS ORDERED: Metoprolol Succinate 25 mg XL Tab PO SCH (10:00)
[2018-03-23] MEDS ORDERED: Pantoprazole 40 mg EC Tab PO SCH (10:00)
== END 2018-03-22 20:19 | disposition home or self-care (01) ==
LOC: ED 05:38 → ERH 07:03 → 2RNO 09:29
PROVIDERS: ADMIT Internal Medicine; ATTEND Internal Medicine
DX: I13.2 Hypertensive heart and chronic kidney disease with heart failure and with stage 5 chronic kidney disease, or end stage renal disease (principal); N18.6 End stage renal disease; I50.9 Heart failure, unspecified; E11.22 Type 2 diabetes mellitus with diabetic chronic kidney disease; E11.42 Type 2 diabetes mellitus with diabetic polyneuropathy; E11.43 Type 2 diabetes mellitus with diabetic autonomic (poly)neuropathy; K31.84 Gastroparesis; I25.10 Atherosclerotic heart disease of native coronary artery without angina pectoris; Z86.73 Personal history of transient ischemic attack (TIA), and cerebral infarction without residual deficits; Z87.440 Personal history of urinary (tract) infections; Z90.49 Acquired absence of other specified parts of digestive tract; Z95.1 Presence of aortocoronary bypass graft; Z95.5 Presence of coronary angioplasty implant and graft; Z99.2 Dependence on renal dialysis; Z79.82 Long term (current) use of aspirin; Z89.421 Acquired absence of other right toe(s); Z80.0 Family history of malignant neoplasm of digestive organs; Z87.891 Personal history of nicotine dependence; Z91.013 Allergy to seafood; D64.9 Anemia, unspecified; Z87.892 Personal history of anaphylaxis; R40.2412 Glasgow coma scale score 13-15, at arrival to emergency department
CPT/HCPCS: 71045; 80053; 82550; 82948; 83615; 83880; 84484; 85027; 85610; 85730; 93005; 96374; 99285; G0378; J1940